=== PATIENT | female | born 1940 | race Caucasian/White ===

== ENCOUNTER → 2016-07-29 | Outpatient (CLI) | payer MEDICARE, MEDICAID ==
[~2016-07-29] MED LIST: ACET-789 PO; ADV1DS; ALBU17AE23 IH; ALPR.25T; ASP81CT PO; ASPI-983 PO; AZIT-21 PO; BUDE6HFA IH; CA C1TAB26 PO; CARV6.25; CARV6.25 PO; CHOL100011 PO; CHOL100055 PO; CIPR-226 PO; CITA20TA4 PO; CLIN150C17 PO; CLIN300C11 PO; CLIN300C3 PO; CLOP75TA PO; CLOP75TA28 PO; CTLP20T PO; DCS100C PO; DOXY100C2 PO; DOXY100C42 PO; DULO30CA; ENAL2.5T PO; ENAL5TAB PO; ENLP2.5T; FENO135C PO; FLC1T; FLT05NA16; FLT05NA16 NSEACH; FLUT16SP22 NSEACH; FOLI0.4T2 PO; FOLI0.8T; FRS325T; FRSM40T; FURO40TA4 PO; GUAI120S36 PO; HYDR-3816 PO; HYDR-700 PO; HYDR1TAB PO; INSA10V SQ; INSASP10V; INSU100C7 SQ; INSU100I14 SQ; INSU100I17 SQ; INSU100I32 SQ; INSU100V6; INSU100V6 SQ; INSU100V8; ISOS30TA3 PO; ISOS30TA7 PO; LACT20SO2 PO; LEVO250T7 PO; LEVO25TA5 PO; LEVO500T69 PO; LEVO500T78 PO; LEVO750T6 PO; LNS30CCR; LOVAZA; MNTL10T PO; MONT10TA24 PO; MTC10T; NIA500ERT PO; NIAC1CAP PO; NITR-65 PO; OFLO10DR24 OT; OFLO5DRO3 EACH EAR; OMEP-10 PO; OMG1KC; OMG1KC PO; ONDA-42 PO; ONDAN4ODT PO; OXYC1TAB87; PRD20T PO; PRM25T; ROSU10TA12 PO; SPRN25T; SSD50T; SULF1TAB38; TIOT18CA IH; TRAM50TA2 PO; WRF2.5T; [UNRECOGNIZED DRUG - CODE] PO
--- OUTSIDE RECORDS SUMMARY | 2016-07-29 09:37 | XMS REPORT | Continuity of Care Document ---
Author Author [facility] Organization [facility] Address Unknown Phone Unavailable Care Team Providers Care Network Specialist Name Role Phone Kirstie Paez PCP [phone] Source Comments Some departments are not documenting in the electronic medical record. If you do not see the information that you expected, contact Release of Information in the Health Information Management department at [phone] for further assistance in locating additional records.[facility] Active Allergies and Adverse Reactions Allergen Noted Date Severity Reactions Comments Bactrim 2012 High HIVES Pcn 2012 HIVES Protamine 2012 UNKNOWN, SEE COMMENTS Was under sedation and had reaction that is unknown and the hospital was [place]. Sulfa (Sulfonamide 2012 HIVES, NAUSEA AND Antibiotics) VOMITING Current Medications Prescription Sig. Disp. Refills Start End Date Status Date Fenofibric Acid Take 135 mg by mouth Active (TRILIPIX) 135 mg CpDR daily. furosemide (LASIX) 40 mg Take 40 mg by mouth Active tablet daily. aspirin EC 81 mg tablet Take 81 mg by mouth at Active bedtime daily. rosuvastatin (CRESTOR) 10 Take 10 mg by mouth every Active mg tablet morning. carvedilol (COREG) 6.25 Take 6.25 mg by mouth Active mg tablet twice daily. isosorbide mononitrate SR Take 30 mg by mouth Active (IMDUR) 30 mg tablet daily. citalopram (CELEXA) 20 mg Take 20 mg by mouth every Active tablet morning. montelukast (SINGULAIR) Take 10 mg by mouth at Active 10 mg tablet bedtime daily. guaiFENesin LA (MUCINEX) Take 1,200 mg by mouth Active 600 mg tablet twice daily. INSULIN Inject 32 Units into Active GLARGINE,HUM.REC.ANLOG area(s) as directed at (LANTUS SC) bedtime daily. cholecalciferol (Vitamin Take 1,000 Units by mouth Active D3) (VITAMIN D-3) 1,000 daily. units tablet INSULIN ASPART (NOVOLOG Inject 7 Units into Active SC) area(s) as directed three times daily before meals. budesonide/formoterol Inhale 2 Puffs by mouth Active (SYMBICORT) 160/4.5 mcg twice daily. HFAA inhalation tiotropium (SPIRIVA) 18 Inhale 18 mcg by mouth Active mcg capsule for inhaler daily. albuterol (VENTOLIN HFA, Inhale 2 Puffs by mouth Active PROAIR HFA) 90 every 4 hours as needed. mcg/actuation inhaler levofloxacin (LEVAQUIN) Take 500 mg by mouth Active 500 mg tablet every 48 hours. Fish Oil-[place]-3 Fatty Take 6 Caps by mouth at Active Acids (FISH OIL) bedtime daily. 360-1,200 mg cap docusate (COLACE) 100 mg Take 400 mg by mouth Active capsule twice daily. enalapril (VASOTEC) 2.5 Take 2.5 mg by mouth Active mg tablet daily. folic acid (FOLVITE) 1 mg Take 5 mg by mouth daily. Active tablet HYDROcodone/acetaminophen Take 1-2 Tabs by mouth 30 Tab 0 01/16/20 Active (NORCO; VICODIN) 5-325 mg every 4 hours as needed 13 tablet for Pain. clopiDOGrel (PLAVIX) 75 Take 1 Tab by mouth every 90 Tab 01/23/20 Active mg tablet morning. RESTART 01/22/13 13 Active Problems Problem Noted Date Systolic CHF, chronic ([facility]) 01/13/2013 Tracheal stenosis 01/12/2013 Ischemic cardiomyopathy 12/24/2012 HLD (hyperlipidemia) 12/24/2012 PVD (peripheral vascular disease) ([facility]) 12/24/2012 History of transient ischemic attack (TIA) 12/24/2012 History of GI bleed 12/24/2012 History of MRSA infection 12/24/2012 Overview: Sternal wound infection post-CABG IDDM (insulin dependent diabetes mellitus) ([facility]) 12/24/2012 Abnormal stress test 12/24/2012 CAD (coronary artery disease) 12/21/2012 Overview: 2010 cardiac stents placed 12/24/12: Cardiac Cath: EF 40%, inferior hypokinesis. Occluded Mid LAD with patent CASTORENA . Occluded SVG to RCA, OM, Diagonal. Collateral filling from left to right. Patent Stent to Lcx, Occluded OM. - Right heart : PA 37/13 mean 22 mmHg. PCW 8, EDP 24. 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 Overview: 2006, complicated by MRSA infection HTN (hypertension) 12/21/2012 On home oxygen therapy 12/21/2012 Overview: 2 L/NC at night Tracheomalacia 12/14/2012 Subglottic stenosis 2012 Laryngopharyngeal reflux 2012 Hyperfunctional dysphonia 2012 Type II diabetes mellitus (HCC) Social History Tobacco Use Types Packs/Day Years Used Date Never Smoker Alcohol Use Drinks/Week oz/Week Comments No Last Filed Vital Signs Vital Sign Reading Time Taken Blood Pressure 143/59 01/15/2013 9:22 AM CDT Pulse 67 01/15/2013 9:22 AM CDT Temperature 36.8 C (98.2 F) 01/15/2013 9:22 AM CDT Respiratory Rate - - Height 1.626 m (5' 4") 01/12/2013 6:18 AM CDT Weight 90.2 kg (198 lb 13.7 oz) 01/15/2013 3:04 AM CDT Body Mass Index 34.12 01/15/2013 3:04 AM CDT Oxygen Saturation 100% 01/15/2013 9:22 AM CDT Plan of Care Health Maintenance Due Date Last Done Comments Physical (Comprehensive) 1949 Exam Pertussis Vaccine 1953 Tetanus Vaccine 1959 Breast Cancer Screening 1982 Colorectal Cancer 1992 Screening Shingles Vaccine 2002 Osteoporosis Screening 2007 Prevnar/Pneumovax (#1) 2007 Influenza Vaccine 03/27/2016 Results from Last 3 Months Not on file
--- NOTE | 2016-07-29 11:22 | Diagnostic Imaging Report ---
EXAMINATION: Multiplanar, multisequence MRI of the thoracic spine performed without intravenous contrast. INDICATION: Neck and back pain. FINDINGS: There is normal alignment of the posterior spinal line. There is an old 50% compression fracture of T12 vertebral body with no significant bone marrow edema seen. There is mild old compression fracture of T10 vertebra as well with 10% vertebral body height loss. Other vertebral bodies are maintained. There is disc desiccation at all levels. No significant disc height loss is seen. There is a hemangioma seen in T3 vertebral body. There is also suggestion of hemangioma within the posterior left side aspect of T12 vertebra with slight extension into the pedicle. No suspicious mass is identified. There is minimal disc herniation at T12/L1 disc without spinal canal stenosis or cord compression. Other levels demonstrate no significant disc herniation. No spinal canal mass. The spinal cord is normal in caliber and contour. The neural foramina appear patent. IMPRESSION: Old compression fractures at T12 and T10 vertebral bodies. No significant disc herniation or spinal canal stenosis at any level. Dictated by: Dictated on workstation # [id number]
--- NOTE | 2016-07-29 11:46 | Diagnostic Imaging Report ---
PROCEDURE: MR imaging cervical spine without contrast. TECHNIQUE: Multiplanar, multisequence MR imaging of the cervical spine was performed without contrast. INDICATION: Neck pain. FINDINGS: The alignment of the posterior spinal line is satisfactory. The vertebral body heights are preserved. There is disc desiccation at all levels and mild disc height loss at C5/6 level. The foramen magnum and upper cervical canal are widely patent. The spinal cord has normal caliber, contour and signal. There is partially visualized suggestion of a meningoencephalocele seen through the occipital region only visualized on the sagittal images and appear similar to CT findings from 06/24/2012 exam with lobulated defects in the occipital aspect of the skull and the inner table. No aggressive feature is seen. No herniation of cerebellar tissue is identified. C2/3: No disc herniation, no spinal canal or foraminal stenosis. C3/4: There is no disc herniation. There is no spinal canal stenosis. There is facet and uncovertebral joint hypertrophy resulting in bilateral moderate foraminal stenosis. C4/5: There is a disc spur complex and posterior ligamentous hypertrophy resulting in moderate spinal canal stenosis reducing the AP dimension of the spinal canal to 7.8 mm. There is no cord compression or cord signal abnormality. The neural foramina demonstrate bilateral stenosis moderate to severe on the right side and moderate on the left side. C5/6: There is spur disc complex and posterior ligamentous hypertrophy. There is moderate to severe spinal canal stenosis reducing the AP dimension of the spinal canal to 6.3 mm with a mild impression/minimal compression along the spinal cord flattened anterior surface. No significant cord signal abnormality is seen. There is bilateral moderate to severe foraminal stenosis from uncovertebral and facet hypertrophy. C6/7: There is no significant disc spur complex. No spinal canal stenosis. There is bilateral mild foraminal stenosis. C7/T1: There is a minimal spur disc complex with no spinal canal stenosis or cord compression. IMPRESSION: There are disc herniations and posterior ligamentous hypertrophy resulting in moderate spinal canal stenosis at C4/5 and C5/6 with a slight impression/flattening along the anterior margin of the spinal cord at C5/6 level. No cord signal abnormality. There is also multilevel neural foramina narrowing. Dictated by: Dictated on workstation # [id number]
== END ==
LOC: RAD 09:33
PROVIDERS: ATTEND Nurse Practitioner Community Health
DX: M54.12 Radiculopathy, cervical region (principal)
CPT/HCPCS: 72141; 72146

== ENCOUNTER 2016-08-18 19:12 | Emergency (ER) | payer MEDICARE, MEDICAID ==
[~2016-08-18] VITALS: Ht 160 cm; Wt 83.5 kg
[~2016-08-18 19:12] MED LIST changes: -ASPI-983 PO; -CLOP75TA28 PO; -OFLO10DR24 OT; -OFLO5DRO3 EACH EAR; -TRAM50TA2 PO
--- OUTSIDE RECORDS SUMMARY | 2016-08-18 19:18 | XMS REPORT | Continuity of Care Document ---
Author Author [facility] Organization [facility] Address Unknown Phone Unavailable Care Team Providers Care Improvement Leader Name Role Phone Kirstie Paez PCP [phone] Source Comments Some departments are not documenting in the electronic medical record. If you do not see the information that you expected, contact Release of Information in the Health Information Management department at [phone] for further assistance in locating additional records.[facility] Active Allergies and Adverse Reactions Allergen Noted Date Severity Reactions Comments Bactrim 2012 High HIVES Pcn 2012 HIVES Protamine 2012 UNKNOWN, SEE COMMENTS Was under sedation and had reaction that is unknown and the hospital was [place]. Sulfa (Sulfonamide 2012 HIVES, NAUSEA AND [...] 500 mg tablet every 48 hours. Fish Oil-[place]-3 Fatty Take 6 Caps by mouth at [...] Problems Problem Noted Date Systolic CHF, chronic ([facility]) 01/13/2013 Tracheal stenosis 01/12/2013 Ischemic cardiomyopathy 12/24/2012 HLD (hyperlipidemia) 12/24/2012 PVD (peripheral vascular disease) ([facility]) 12/24/2012 History of transient ischemic attack (TIA) 12/24/2012 History of GI bleed 12/24/2012 History of MRSA infection 12/24/2012 Overview: Sternal wound infection post-CABG IDDM (insulin dependent diabetes mellitus) ([facility]) 12/24/2012 Abnormal stress test 12/24/2012 CAD (coronary [...]
[2016-08-18] MEDS ORDERED: RX-CIPROFLOXACIN (CILOXAN) 0.3% OP SOLN 2.5 ML ONE (19:51)
[2016-08-18] MEDS ORDERED: CIPROFLOXACIN 0.3% (CILOXAN) 2.5 ML BTL OP SCH (20:00)
[2016-08-18] MEDS ORDERED: OFLO10DR24 OT (20:06)
--- NOTE | 2016-08-18 20:06 | ED EENT ---
History of Present Illness General Chief Complaint: Ear Problems Stated Complaint: BLOOD IN RT EAR Nursing Triage Note: PT STATES SHE WOKE UP WITH BLOOD RUNNING OUT OF HER R EAR. JAN ANY PAIN, STATES SHE HAS A "FULL" FEELING IN HER EAR. [facility] SE[facility] AT [facility] INFANT CHILDCARE PROVIDER. Source: patient Exam Limitations: no limitations History of Present Illness Time seen by provider: 20:01 Initial Comments To ER with c/o right ear bleeding from [facility]. She had pressure in her ear earlier today and so she pinched her nose and blew to try to pop her eardrum. After doing this she then layed down for a nap and upon awakening noticed blood from the right ear. No preceding pain other than this morning. History of T-tubes placed about 5 months ago. Timing/Duration: abrupt Severity: moderate Associated Symptoms: No cough, ear drainageNo facial pain/swelling Allergies and Home Medications Allergies Coded Allergies: sulfamethoxazole (Unverified Allergy, Severe, ANAPHYLAXIS, 07/05/10) pt states severe resp distress after taking bactrim ds trimethoprim (Unverified Allergy, Severe, ANAPHYLAXIS, 07/05/10) pt states severe resp distress after taking bactrim ds Sulfa (Sulfonamide Antibiotics) (Unverified Allergy, Mild, 07/05/10) Penicillins (Verified Allergy, Unknown, 12/14/05) protamine (Verified Allergy, Unknown, 02/07/08) Home Medications Acetaminophen with Codeine 1 Each Tablet 1 TAB PO Q6H PRN PRN PAIN (Reported) Aspirin 81 Mg Tablet 81 MG PO HS (Reported) Carvedilol 6.25 Mg Tablet 3.125 MG PO BID (Reported) TAKES 1/2 (6.25MG) TABLET Citalopram Hydrobromide 20 Mg Tablet 20 MG PO DAILY (Reported) Clindamycin HCl 300 Mg Capsule 10Days 300 MG PO QID (Reported) 10 DAY SUPPLY FILLED 03-07-16 Clopidogrel Bisulfate 75 Mg Tablet 75 MG PO DAILY (Reported) Docusate Sodium 100 Mg Cap 100-600 MG PO DAILY (Reported) TAKES 1-6 (100 MG) CAPSULES Enalapril Maleate 2.5 Mg Tablet 2.5 MG PO BID (Reported) Fenofibric Acid (Choline) 135 Mg Capsule.dr 135 MG PO HS (Reported) Furosemide 40 Mg Tablet 40 MG PO DAILY (Reported) Hydrocodone/Acetaminophen 1 Each Tablet 1-2 TAB PO EVERY 4-6 HOURS PRN PRN PAIN (Reported) Insulin Aspart 300 Units/3 Ml Solution 5 UNITS SQ AC (Reported) Insulin Degludec 100 Unit/1 Ml Insuln.pen 20 UNIT SQ HS (Reported) Levothyroxine Sodium 25 Mcg Tablet 25 MCG PO DAILY (Reported) Montelukast Sodium 10 Mg Tablet 10 MG PO HS (Reported) [place] 3 Polyunsat Fatty Acids 1,000 Mg Cap 6,000 UNIT PO HS (Reported) TAKES 6 (1,000 MG) CAPSULES Rosuvastatin Calcium 10 Mg Tablet 10 MG PO HS (Reported) Vorapaxar Sulfate 2.08 Mg Tablet 2.08 MG PO HS (Reported) Review of Systems Constitutional: see HPI Eyes: No Symptoms Reported Ears: See HPI Pain Bloody Discharge Nose: no symptoms reported Mouth: no symptoms reported Throat: no symptoms reported Respiratory: no symptoms reported Cardiovascular: no symptoms reported Musculoskeletal: no symptoms reported Past Bdyafrf-Ddsdma-Nnprxz Hx Patient Social History Alcohol Use: Denies Use Recreational Drug Use: No Smoking Status: Never a Smoker Recent Foreign Travel: No Contact w/Someone Who Travel: No Recent Infectious Disease Expo: No Recent Hopitalizations: Yes Physical Abuse Screen: No Sexual Abuse: No Immunizations Up To Date Date of Pneumonia Vaccine: Jun 15, 2014 Date of Influenza Vaccine: Apr 26, 2016 Seasonal Allergies Seasonal Allergies: No Surgeries HX Surgeries: Yes Surgeries: CABG, Gallbladder, Hysterectomy Respiratory Hx Respiratory Disorders: No Respiratory Disorders: Pulmonary Embolism Cardiovascular Hx Cardiac Disorders: Yes Cardiac Disorders: Coronary Artery Disease, High Cholesterol, Hypertension Neurological Hx Neurological Disorders: No Reproductive System Hx Reproductive Disorders: No 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 Genitourinary Hx Genitourinary Disorders: No Genitourinary Disorders: Bladder Infection Gastrointestinal Hx Gastrointestinal Disorders: No Gastrointestinal Disorders: Gastroesophageal Reflux, Ulcer Musculoskeletal Hx Musculoskeletal Disorders: Yes Endocrine Hx Endocrine Disorders: Yes Endocrine Disorders: Diabetes, Insulin dep HEENT HX ENT Disorders: No Cancer Hx Cancer: No Psychosocial Hx Psychiatric Problems: No Integumentary HX Skin/Integumentary Disorder: No Blood Transfusions Hx Blood Disorders: No Family Medical History Significant Family History: No Pertinent Family Hx Physical Exam Vital Signs Vital Sign - Last 12Hours 08/18/16 19:32 Temp 97.7 Pulse 77 Resp 18 B/P 147/58 General Appearance: WD/WN no apparent distress Eyes: bilateral eye EOMI, bilateral eye PERRL, bilateral eye normal inspection Ears: right ear other (blood in right ear canal, hole in TM visualized, no purulent material. Minimal active oozing of blood. Ear wick placed and saturated in CIprofloxacin opthalmic drops. ) Neck: non-tender full range of motion Respiratory: no respiratory distress no accessory muscle use Gastrointestinal: non tender soft Neurologic/Psychiatric: alert normal mood/affect oriented x 3 Skin: normal color warm/dry Progress/Results/Core Measures Results/Orders My Orders Orders-ED KENNEDY PUBLISHING DIRECTOR Ciprofloxacin 0.3% Ophth Soln (Ciloxan 0 (08/18/16 20:00) Rx-Ciprofloxacin Ophth Soln (Rx-Ciloxan (08/18/16 19:51) Vital Signs/I&O Vital Sign - Last 12Hours 08/18/16 19:32 Temp 97.7 Pulse 77 Resp 18 B/P 147/58 Blood Pressure Mean: 87 Departure Impression Impression: Primary Impression: Ruptured tympanic membrane Qualified Code: H72.91 - Unspecified perforation of tympanic membrane, right ear Disposition: 01 HOME, SELF-CARE Condition: Stable Departure-Patient Inst. Decision time for Depature: 20:05 Referrals: ALESSANDRA SORENSEN DO (PCP) Primary Care Physician PRABHA HILL (Family) Primary Care Physician JERROD EATON MD Patient Instructions: Ruptured Eardrum (DC) Add. Discharge Instructions: 1. Leave the ear wick in place until tomorrow morning and then remove it. Call Dr Eaton tomorrow for an appointment for follow up 2. Use ear drops as directed All discharge instructions reviewed with patient and/or family. Voiced understanding. Scripts Ofloxacin (Floxin)10 Ml Drops5 Drops OT BID #1 DROPS BID x 7days. Prov:ED KENNEDY APRN 08/18/16 ED KENNEDY APRN Aug 18, 2016 20:06
[2016-08-18 20:20] VITALS: BP 147/58
== END 2016-08-18 20:24 | disposition home or self-care (01) ==
LOC: EDUNIT# 19:12 → ER 19:14
DX: H72.91 Unspecified perforation of tympanic membrane, right ear (principal); I10 Essential (primary) hypertension; E11.9 Type 2 diabetes mellitus without complications; Z79.82 Long term (current) use of aspirin; Z79.84 Long term (current) use of oral hypoglycemic drugs; Z79.4 Long term (current) use of insulin; Z79.899 Other long term (current) drug therapy; Z79.02 Long term (current) use of antithrombotics/antiplatelets; Z96.22 Myringotomy tube(s) status
CPT/HCPCS: 99283

== ENCOUNTER 2016-08-27 09:48 | Day surgery (SDC) | payer MEDICARE, MEDICAID ==
[2016-08-27] VITALS (7 sets, daily range): BP systolic 114–161; BP diastolic 48–75
[~2016-08-27] VITALS: Ht 160 cm; Wt 83.5 kg
[~2016-08-27 09:48] MED LIST changes: +OFLO10DR24 OT
--- OUTSIDE RECORDS SUMMARY | 2016-08-27 09:52 | XMS REPORT | Continuity of Care Document ---
Author Author [facility] Organization [facility] Address Unknown Phone Unavailable Care Team Providers Care Standpipe Tender Name Role Phone Kirstie Paez PCP [phone] Source Comments Some departments are not documenting in the electronic medical record. If you do not see the information that you expected, contact Release of Information in the Health Information Management department at [phone] for further assistance in locating additional records.[facility] Active Allergies and Adverse Reactions Allergen Noted Date Severity Reactions Comments Bactrim 2012 High HIVES Pcn 2012 HIVES Protamine 2012 UNKNOWN, SEE COMMENTS Was under sedation and had reaction that is unknown and the hospital was [place] Sulfa (Sulfonamide 2012 HIVES, NAUSEA AND [...] 500 mg tablet every 48 hours. Fish Oil-[place]-3 Fatty Take 6 Caps by mouth at [...] Problems Problem Noted Date Systolic CHF, chronic ([facility]) 01/13/2013 Tracheal stenosis 01/12/2013 Ischemic cardiomyopathy 12/24/2012 HLD (hyperlipidemia) 12/24/2012 PVD (peripheral vascular disease) ([facility]) 12/24/2012 History of transient ischemic attack (TIA) 12/24/2012 History of GI bleed 12/24/2012 History of MRSA infection 12/24/2012 Overview: Sternal wound infection post-CABG IDDM (insulin dependent diabetes mellitus) ([facility]) 12/24/2012 Abnormal stress test 12/24/2012 CAD (coronary [...]
--- OUTSIDE RECORDS SUMMARY | 2016-08-27 09:53 | XMS REPORT | Continuity of Care Document ---
Author Author [facility] Organization [facility] Address Unknown Phone Unavailable Care Team Providers Care Behavioral Services Tech Name Role Phone Kirstie Paez PCP [phone] Source Comments Some departments are not documenting in the electronic medical record. If you do not see the information that you expected, contact Release of Information in the Health Information Management department at [phone] for further assistance in locating additional records.[facility] Active Allergies and Adverse Reactions Allergen Noted Date Severity Reactions Comments Bactrim 2012 High HIVES Pcn 2012 HIVES Protamine 2012 UNKNOWN, SEE COMMENTS Was under sedation and had reaction that is unknown and the hospital was [place]. Sulfa (Sulfonamide 2012 HIVES, NAUSEA AND [...] 500 mg tablet every 48 hours. Fish Oil-[place]-3 Fatty Take 6 Caps by mouth at [...] Problems Problem Noted Date Systolic CHF, chronic ([facility]) 01/13/2013 Tracheal stenosis 01/12/2013 Ischemic cardiomyopathy 12/24/2012 HLD (hyperlipidemia) 12/24/2012 PVD (peripheral vascular disease) ([facility]) 12/24/2012 History of transient ischemic attack (TIA) 12/24/2012 History of GI bleed 12/24/2012 History of MRSA infection 12/24/2012 Overview: Sternal wound infection post-CABG IDDM (insulin dependent diabetes mellitus) ([facility]) 12/24/2012 Abnormal stress test 12/24/2012 CAD (coronary [...]
[2016-08-27] MEDS ORDERED: HEParin (CATH LAB) 2,000 ML IV ONE (10:18)
[2016-08-27] MEDS ORDERED: LIDOCAINE 1% INJ 20 ML (XYLOCAINE) VIAL ONE (10:18)
[2016-08-27] MEDS ORDERED: NS IV 1000 ML 1,000 ML ONE ×2 (10:18→13:15)
[2016-08-27 10:51] LABS: MEAN PLATELET VOLUME 11.3 FL (7.4-10.4); RED BLOOD COUNT 4.99 10^6/uL (4.35-5.85); RED CELL DISTRIBUTION WIDTH 14.2 % (10.0-14.5); WHITE BLOOD COUNT 5.7 10^3/uL (4.3-11.0)
[2016-08-27 10:54] LABS: BILIRUBIN,URINE NEGATIVE (NEGATIVE); KETONES,URINE NEGATIVE (NEGATIVE); LEUKOCYTE ESTERASE ,URINE 1+ (NEGATIVE); NITRITE,URINE NEGATIVE (NEGATIVE); PH,URINE 5 (5-9); PROTEIN,URINE NEGATIVE (NEGATIVE); UROBILINOGEN,URINE NORMAL (NORMAL)
[2016-08-27] MEDS ORDERED: NS IV 1000 ML 1,000 ML IV SCH (11:00)
[2016-08-27 11:03] LABS: PROTHROMBIN TIME PATIENT 13.1 SEC (12.2-14.7)
[2016-08-27] MEDS ORDERED: ASPI-983 PO (11:07)
[2016-08-27] MEDS ORDERED: TRAM50TA2 PO (11:07)
[2016-08-27] MEDS ORDERED: CLOP75TA28 PO (11:07)
[2016-08-27] MEDS ORDERED: FURO40TA4 PO (11:07)
[2016-08-27] MEDS ORDERED: ENAL2.5T PO (11:07)
[2016-08-27 11:10] LABS: ALBUMIN 4.2 G/DL (3.2-4.5); BILIRUBIN,TOTAL 0.4 MG/DL (0.1-1.0); CALCIUM 9.3 MG/DL (8.5-10.1); CREATININE SERUM 0.99 MG/DL (0.60-1.30); TOTAL PROTEIN 7.1 G/DL (6.4-8.2)
[2016-08-27 11:12] LABS: POTASSIUM 5.1 MMOL/L (3.6-5.0)
--- NOTE | 2016-08-27 11:12 | Diagnostic Imaging Report ---
INDICATION: Peripheral vascular disease. EXAMINATION: Portable chest at 10:47 AM. FINDINGS: There are postop changes from CABG surgery. There is chronic elevation of the right hemidiaphragm. There are surgical sruthi in the left hilum. The lungs are clear. There are no effusions or pneumothoraces. The heart size and pulmonary vascularity are normal. IMPRESSION: Post surgical changes in the chest. No acute abnormalities or interval change since the exam dated 03/19/2016. Dictated by: Dictated on workstation # [id number]
[2016-08-27] MEDS ORDERED: OFLO5DRO3 EACH EAR (11:14)
[2016-08-27] MEDS ORDERED: MIDAZOLAM 5 MG/5 ML (VERSED) VIAL ONE (11:50)
[2016-08-27] MEDS ORDERED: fentaNYL INJECTION 100 MCG/2 ML AMP ONE (11:50)
[2016-08-27] MEDS ORDERED: HEParin 1000 UNIT/ML (10ML VIAL) FOR BOLUS ONE (13:20)
[2016-08-27] MEDS ORDERED: NITROGLYCERIN DRIP 25 MG/D5W 250 ML IV ONE (13:59)
[2016-08-27] MEDS: NS IV 1000 ML 1,000 ML IV SCH ×2 (14:30→23:14)
[2016-08-27] MEDS ORDERED: FUROSEMIDE 40 MG (LASIX) TAB PO PRN (14:30)
[2016-08-27] MEDS ORDERED: PATIENT MAY USE OWN MEDS, ALL PO SCH (14:30)
[2016-08-27] MEDS ORDERED: ASPIRIN 81 MG CHEW (CHILDREN'S ASA) ONE (14:32)
[2016-08-27] MEDS ORDERED: CLOPIDOGREL 300 MG (PLAVIX) TABLET PO ONE (14:32)
[2016-08-27] MEDS: NOVOLOG SQ SCH (17:00)
[2016-08-27] MEDS: ENALAPRIL 2.5 MG (VASOTEC) TAB PO SCH (20:45)
[2016-08-27] MEDS: OMEGA 3 (FISH OIL) 1000 MG CAP PO SCH ×2 (20:45→22:57)
[2016-08-27] MEDS: DOCUSATE SODIUM 100 MG (COLACE) CAP PO SCH (20:45)
[2016-08-27] MEDS ORDERED: CRESTOR 10 MG TAB PO SCH (21:00)
[2016-08-27] MEDS ORDERED: ZONTIVITY 2.08 MG PO SCH (21:00)
[2016-08-27] MEDS ORDERED: FENOFIBRIC 135 MG PO SCH (21:00)
[2016-08-27] MEDS ORDERED: ASPIRIN E.C. 81 MG (ECOTRIN) TAB PO SCH (21:00)
[2016-08-27] MEDS ORDERED: TRESIBA FLEXTOUCH 200 UNITS/ML SQ SCH (21:00)
[2016-08-27] MEDS ORDERED: [UNRECOGNIZED DRUG - REMARK] OP SCH (21:00)
[2016-08-28 04:00] VITALS: BP 144/80
[2016-08-28 04:24] LABS: MEAN PLATELET VOLUME 11.4 FL (7.4-10.4); RED BLOOD COUNT 4.3 10^6/uL (4.35-5.85); RED CELL DISTRIBUTION WIDTH 14.2 % (10.0-14.5); WHITE BLOOD COUNT 5.1 10^3/uL (4.3-11.0)
[2016-08-28 04:44] LABS: ANION GAP 10 MMOL/L (5-14); BLOOD UREA NITROGEN 18 MG/DL (7-18); BUN/CREATININE RATIO 20; CALCIUM 8.4 MG/DL (8.5-10.1); CARBON DIOXIDE 20 MMOL/L (21-32); CHLORIDE 107 MMOL/L (98-107); CREATININE SERUM 0.88 MG/DL (0.60-1.30); GFR ESTIMATED > 60; GLUCOSE 113 MG/DL (70-105); POTASSIUM 4.5 MMOL/L (3.6-5.0); SODIUM 137 MMOL/L (135-145)
[2016-08-28] MEDS: NOVOLOG SQ SCH (05:36)
[2016-08-28] MEDS ORDERED: LEVOTHYROXINE 25 MCG (LEVOTHROID) TAB PO SCH (06:30)
--- NOTE | 2016-08-28 07:30 | Cardiac Procedure Note-CS/ASA ---
Pre-Procedure Note Pre-Op Procedure Note H&P Reviewed The H&P was reviewed, patient examined and no changes noted. Date H&P Reviewed: Aug 27, 2016 Time H&P Reviewed: 11:30 Conscious Sedation Pre-Proced Time Reviewed: 11:30 ASA Class: 3 Airway Mallampati Classification: (bad river band appropriate class) I. II. III, IV Lungs Heart ASA score ASA 1: a normal healthy patient ASA 2: a patient with a mild systemic disease (mid diabetes, controlled hypertension, obesity x ASA 3: a patient with a severe systemic disease that limits activity (angina , COPD, prior Myocardial infarction) ASA 4: a patient with an incapacitating disease that is a constant threat to life (CHF, renal failure) ASA 5: a moribund patient not expected to survive 24 hrs. (ruptured aneurysm) ASA 6: a declared brain patient whose organs are being harvested. For emergent operations, add the letter E after the classification Grade 3 Sedation Plan: Analgesia, Amnesia, Plan communicated to team members, Discussed options with patient/fam, Discussed risks with patient/fam Note The patient is an appropriate candidate to undergo the planned procedure, sedation, and anesthesia. The patient immediately re-assessed prior to indication. LUIS CARLOS RODRIGUEZ MD Aug 28, 2016 07:30
--- NOTE | 2016-08-28 07:35 | Cardiology Progress Note ---
Subjective Subjective/Events-last exam patient is feeling better, denied any chest pain or shortness of breath Review of Systems General: No Chills, No Night Sweats, No Fatigue, No Malaise, No Appetite, No Other HEENT: No Head Aches, No Visual Changes, No Eye Pain, No Ear Pain, No Dysphasia , No Sinus Congestion, No Post Nasal Drip, No Sore Throat, No Other Pulmonary: No Dyspnea, No Cough, No Pleuritic Chest Pain, No Other Cardiovascular: No: Chest Pain, Edema, Lt Headedness, Orthopnea, Other, Palpitations, Paroxysmal Noc. Dyspnea Objective-Cardiology Exam Last Set of Vital Signs Vital Signs 08/28/16 04:00 Temp 97.8 Pulse 58 Resp 18 B/P 144/80 Pulse Ox 96 O2 Delivery Room Air Capillary Refill : Less Than 3 Seconds I&O Intake and Output 08/28/16 00:00 Intake Total 0 ml Output Total 0 ml Balance 0 ml Intake Oral 0 ml Output Urine Total 0 ml General: Alert, Oriented X3, Cooperative HEENT: Atraumatic, PERRLA Neck: Supple, No JVD, No Thyromegaly Lungs: Clear to Auscultation, Normal Air Movement Heart: Regular Rate, Normal S1, Normal S2, No Murmurs Abdomen: Normal Bowel Sounds, Soft, No Tenderness, No Hepatosplenomegaly, No Masses Extremities: No Clubbing, No Cyanosis, No Edema, No Tenderness/Swelling, Other (difficult to palpate pulse) Skin: No Rashes, No Breakdown, No Significant Lesion Neuro: Normal Gait, Normal Speech, Strength at 5/5 X4 Ext, Normal Tone, Sensation Intact Psych/Mental Status: Mental Status NL, Mood NL Results Lab Laboratory Tests 08/27/16 10:36 08/28/16 03:37 A/P-Cardiology Admission Diagnosis peripheral arterial disease Coronary artery disease Hypertension Hyperlipidemia Assessment/Plan peripheral arterial disease status post balloon antiplastic using drug-coated balloon to the right SFA Coronary artery disease Hypertension Hyperlipidemia LUIS CARLOS RODRIGUEZ MD Aug 28, 2016 07:35
--- NOTE | 2016-08-28 07:37 | Discharge Inst-Post CATH ---
Discharge Inst-CATH Post Cardiac Cath D/C Inst Follow Up/Plan Appointment with Dr. Adkins's office next week CARDIAC CATH DISCHARGE INSTRUCTIONS *Hold Metformin for 48 hours post heart cath. ACTIVITY * Go Home directly and rest. * Limit activity of the leg (or wrist if it was used) for 7 days including aerobics, swimming, jogging, bicycling, etc. * Restrict stair-climbing for 7 days if possible, if not, climb up with your non -cath leg, then bring together on the same step. * Avoid lifting, pushing, pulling or excessive movement of the affected extremity for 7 days. * Customary sexual activity may be resumed after 2 days-use caution not to use a position that strains or causes pain to the affected extremity. * No driving for 24 hours. * NO SMOKING. * Avoid straining for bowel movements for 7 days. * Gentle walking on level ground is allowed. * Returning to work will depend on the type of procedure and the results. Your doctor will discuss this with you. CALL YOUR DOCTOR FOR ANY OF THE FOLLOWING: *If bleeding from the puncture site occurs- Apply gentle pressure to site with clean cloth and call your doctor or EMS. * If a knot or lump forms under the skin, increases in size, or causes pain. * If bruising appears to be worsening or moving further down your leg instead of disappearing. * Temperature above 101 F. CARE OF YOUR GROIN INCISION; * Bruising or purple discoloration of the skin near the puncture site is common. * You may shower only, no bathtub bathing for 5 days. Be careful to avoid slipping as your leg may feel stiff. * If a closure device was used on your femoral artery, please see the attached guide regarding care of the device and your leg. * REMOVE the dressing from your groin the next day after your procedure in the shower. CARE OF YOUR WRIST INCISION; * Bruising or purple discoloration of the skin near the puncture site is common. * You may shower. * DO NOT submerge wrist. * Remove dressing in 24 hours. LUIS CARLOS ADKINS MD Aug 28, 2016 07:36
[2016-08-28 07:46] VITALS: BP 135/66
[2016-08-28] MEDS: ENALAPRIL 2.5 MG (VASOTEC) TAB PO SCH (07:48)
[2016-08-28] MEDS: DOCUSATE SODIUM 100 MG (COLACE) CAP PO SCH (07:50)
[2016-08-28] MEDS ORDERED: CARVEDILOL 6.25 MG (COREG) TAB PO SCH (09:00)
[2016-08-28] MEDS ORDERED: CLOPIDOGREL 75 MG (PLAVIX) TABLET PO SCH (09:00)
[2016-08-28 09:15] VITALS: BP 135/66
--- NOTE | 2016-08-28 13:03 | PROCEDURE REPORT ---
PROCEDURE PHYSICIAN: LUIS CARLOS RODRIGUEZ PERIPHERAL ANGIOGRAM WITH ANGIOPLASTY REPORT DATE OF PROCEDURE: 08/27/2016 BRIEF HISTORY: Mrs. Lima is a 75-year-old lady with extensive peripheral arterial disease multiple intervention on the left lower extremity. She came to the office with increasing pain in her right lower extremity. She was noted to have abnormal LILO and scheduled for peripheral angiogram. PROCEDURE NOTE: After explaining the procedure to the patient, all pros and cons were explained. All questions were answered. The patient signed a consent, then she was placed on the cardiac catheterization laboratory. The left groin was prepped in a sterile fashion. 6-Wallisian sheath was placed in the left femoral artery. A pigtail catheter advanced to the l abdominal aorta. Abdominal aortogram was done. Runoff of the left lower extremity was done through the sheath. Then I used a pigtail catheter to cross over to the right side. Straight wire was advanced and pigtail catheter advanced to the common femoral artery and runoff of the right lower extremity was done. Then, I exchange the pigtail catheter into a straight catheter, advanced down to the knee level. Angiogram with selective angiogram was done. At that time I attempted to do percutaneous intervention to the totally occluded posterior tibial and peroneal arteries. The patient was given 5000 units of heparin. I advanced multiple wires without success. There was a small perforation noted at the anterior tibial artery. I removed the catheter, left the sheath in place and left the wire, then I proceeded with balloon angioplasty to the SFA, that has multiple significant lesions. I used Lutonix drug coated balloon 5 x 150 and 5 x 40 to he SFA and popliteal artery angiogram. Post intervention showed excellent results. With improvement of flow velocity down to the ankle. There is single-vessel reconstructed at the ankle level, it is the posterior tibial artery. At the end of the procedure, the sheath was exchanged into a short 6-Wallisian sheath and then sheath was removed and Mynx device deployed. No complication noted. FINDINGS: 1. Abdominal aortogram showed atherosclerotic disease in the abdominal aorta. No dissection or aneurysm. 2. Left lower extremity runoff down through the sheath showed mild disease in the SFA and popliteal artery. There is occlusion of the anterior tibial artery, subtotal occlusion of the posterior tibial artery and peroneal artery with slow flow distally. 3. Angiogram of the right lower extremity showed multiple segments of severe stenosis at the distal superficial femoral artery and popliteal artery; total occlusion below the knee. Unsuccessful attempt to intervene on the posterior tibial and peroneal artery. Successful balloon angioplasty to the SFA and popliteal artery with drug coated balloon using Lutonix 5 x 150 and 5 x 40 with excellent results. 4. Single-vessel reconstruction of the posterior tibial artery in the right leg. DISCUSSION AND RECOMMENDATION: I will continue maximizing medical therapy. Consideration for pedal access through the posterior tibial artery and intervention on the right lower extremity is needed. Meanwhile, I will continue medical therapy. Job ID: [id number] Dictated Date: 08/27/2016 14:38:40 Medical Billing And Coding Specialist Date: 08/28/2016 12:50:22 / diana LOPEZ
--- NOTE | 2016-08-28 13:07 | DISCHARGE SUMMARY ---
PROCEDURE PHYSICIAN: LUIS CARLOS RODRIGUEZ PERIPHERAL ANGIOGRAM WITH ANGIOPLASTY REPORT DATE OF PROCEDURE: 08/27/2016 BRIEF HISTORY: Mrs. Lima is a 75-year-old lady with extensive peripheral arterial disease multiple intervention on the left lower extremity. She came to the office with increasing pain in her right lower extremity. She was noted to have abnormal LILO and scheduled for peripheral angiogram. PROCEDURE NOTE: After explaining the procedure to the patient, all pros and cons were explained. All questions were answered. The patient signed a consent, then she was placed on the cardiac catheterization laboratory. The left groin was prepped in a sterile fashion. 6-Emirati sheath was placed in the left femoral artery. A pigtail catheter advanced to the l abdominal aorta. Abdominal aortogram was done. Runoff of the left lower extremity was done through the sheath. Then I used a pigtail catheter to cross over to the right side. Straight wire was advanced and pigtail catheter advanced to the common femoral artery and runoff of the right lower extremity was done. Then, I exchange the pigtail catheter into a straight catheter, advanced down to the knee level. Angiogram with selective angiogram was done. At that time I attempted to do percutaneous intervention to the totally occluded posterior tibial and peroneal arteries. The patient was given 5000 units of heparin. I advanced multiple wires without success. There was a small perforation noted at the anterior tibial artery. I removed the catheter, left the sheath in place and left the wire, then I proceeded with balloon angioplasty to the SFA, that has multiple significant lesions. I used Lutonix drug coated balloon 5 x 150 and 5 x 40 to he SFA and popliteal artery angiogram. Post intervention showed excellent results. With improvement of flow velocity down to the ankle. There is single-vessel reconstructed at the ankle level, it is the posterior tibial artery. At the end of the procedure, the sheath was exchanged into a short 6-Emirati sheath and then sheath was removed and Mynx device deployed. No complication noted. FINDINGS: 1. Abdominal aortogram showed atherosclerotic disease in the abdominal aorta. No dissection or aneurysm. 2. Left lower extremity runoff down through the sheath showed mild disease in the SFA and popliteal artery. There is occlusion of the anterior tibial artery, subtotal occlusion of the posterior tibial artery and peroneal artery with slow flow distally. 3. Angiogram of the right lower extremity showed multiple segments of severe stenosis at the distal superficial femoral artery and popliteal artery; total occlusion below the knee. Unsuccessful attempt to intervene on the posterior tibial and peroneal artery. Successful balloon angioplasty to the SFA and popliteal artery with drug coated balloon using Lutonix 5 x 150 and 5 x 40 with excellent results. 4. Single-vessel reconstruction of the posterior tibial artery in the right leg. DISCUSSION AND RECOMMENDATION: I will continue maximizing medical therapy. Consideration for pedal access through the posterior tibial artery and intervention on the right lower extremity is needed. Meanwhile, I will continue medical therapy. FINAL DIAGNOSES: 1. Claudication. 2. Peripheral arterial disease. 3. Hypertension. 4. Hyperlipidemia. 5. Diabetes mellitus Job ID: [id number] Dictated Date: 08/27/2016 14:38:40 Refrigeration Engineer Date: 08/28/2016 13:03:06/diana
== END 2016-08-28 09:15 | disposition home or self-care (01) ==
LOC: CATH 09:48 → ICU 15:07 → CATH 08-28 09:15
PROVIDERS: ATTEND Internal Medicine Cardiovascular Disease
DX: I70.213 Atherosclerosis of native arteries of extremities with intermittent claudication, bilateral legs (principal); I70.92 Chronic total occlusion of artery of the extremities; I70.0 Atherosclerosis of aorta; I10 Essential (primary) hypertension; E78.5 Hyperlipidemia, unspecified; E11.9 Type 2 diabetes mellitus without complications; I50.22 Chronic systolic (congestive) heart failure; Z79.899 Other long term (current) drug therapy; Z79.4 Long term (current) use of insulin; Z95.1 Presence of aortocoronary bypass graft; Z95.5 Presence of coronary angioplasty implant and graft; Z86.711 Personal history of pulmonary embolism
CPT/HCPCS: 36247; 36415; 37224; 71010; 75625; 75716; 75774; 80048; 80053; 80061; 81000; 85027; 85610; 85730; 87081; 93005

== ENCOUNTER 2017-01-31 18:52 | Emergency (ER) | payer MEDICARE, MEDICAID ==
[~2017-01-31] VITALS: Ht 160 cm; Wt 81.6 kg
[~2017-01-31 18:52] MED LIST changes: +ASPI-983 PO; +CLOP75TA28 PO; +OFLO5DRO3 EACH EAR; +TRAM50TA2 PO; +VORA2.082 PO; -[UNRECOGNIZED DRUG - CODE] PO
--- NOTE | 2017-01-31 19:27 | ED Integumentary General ---
General Chief Complaint: Upper Extremity Stated Complaint: SPOT ON ARM, POSSIBLE BLOOD CLOT Nursing Triage Note: BRUISE TO RIGHT INNER ARM, NO KNOWN INJURY Source: patient, family, RN notes reviewed Exam Limitations: no limitations History of Present Illness Time seen by provider: 19:20 Initial Comments Patient presents c/ a bruise to her right forearm that she first noted yesterday and it has gotten bigger today. Doesn't recall any injury to the area , although she is taking care of her daughter's dog and he may have pawed her. She is on Plavix. Denies any pain @ the site. Has no other concerns. Patient states her kind of freaked out when he saw the bruise this PM and brought her straight to the ED. Just wants to make sure everything is O.K. Patient reports several other bruising episodes in her past. Timing/Duration: yesterday Severity: mild Location: extremities (right anterior forearm) Possible Cause: no cause identified Modifying Factors: improves with other (none) Associated Symptoms: other (bruising) Allergies and Home Medications Allergies Coded Allergies: sulfamethoxazole (Unverified Allergy, Severe, ANAPHYLAXIS, 07/05/10) pt states severe resp distress after taking bactrim ds trimethoprim (Unverified Allergy, Severe, ANAPHYLAXIS, 07/05/10) pt states severe resp distress after taking bactrim ds Sulfa (Sulfonamide Antibiotics) (Unverified Allergy, Mild, 07/05/10) Penicillins (Verified Allergy, Unknown, 12/14/05) protamine (Verified Allergy, Unknown, 02/07/08) Home Medications Aspirin 81 Mg Tablet.dr, 81 MG PO HS, (Reported) Carvedilol 6.25 Mg Tablet, 3.125 MG PO DAILY, (Reported) TAKES 1/2 (6.25MG) TABLET Citalopram Hydrobromide 20 Mg Tablet, 20 MG PO DAILY, (Reported) Clopidogrel Bisulfate 75 Mg Tablet, 75 MG PO DAILY, (Reported) Docusate Sodium 100 Mg Cap, 300 MG PO BID, (Reported) TAKES 3 (100 MG) CAPSULES Enalapril Maleate 2.5 Mg Tablet, 2.5 MG PO BID, #60 (Reported) Fenofibric Acid (Choline) 135 Mg Capsule.dr, 135 MG PO HS, (Reported) Furosemide 40 Mg Tablet, 40 MG PO DAILY PRN for SWELLING, (Reported) Insulin Aspart 300 Units/3 Ml Solution, 5 UNITS SQ BID WITH MEALS, (Reported) Insulin Degludec 100 Unit/1 Ml Insuln.pen, 20 UNIT SQ HS, (Reported) Levothyroxine Sodium 25 Mcg Tablet, 25 MCG PO DAILY, (Reported) Ofloxacin 5 Ml Drops, 5 DROPS EACH EAR BID for 7 Days, (Reported) 7 DAY THERAPY FILLED 08-19-16 0.3 [place] 3 Polyunsat Fatty Acids 1,000 Mg Cap, 3,000 MG PO BID, (Reported) TAKES 3 (1,000 MG) CAPSULES Rosuvastatin Calcium 10 Mg Tablet, 10 MG PO HS, (Reported) Tramadol HCl 50 Mg Tablet, 50 MG PO BID, (Reported) Vorapaxar Sulfate 2.08 Mg Tablet, 2.08 MG PO HS, (Reported) Constitutional: see HPI Skin: see HPI, other (bruising right forearm) All Other Systems Reviewed Negative Unless Noted: Yes (Negative excepted noted.) Past Dbwdhze-Cxmmif-Utreml Hx Patient Social History Alcohol Use: Denies Use Recreational Drug Use: No Smoking Status: Never a Smoker Recent Foreign Travel: No Contact w/Someone Who Travel: No Recent Infectious Disease Expo: No Recent Hopitalizations: No Immunizations Up To Date Tetanus Booster (TDap): Unknown Date of Pneumonia Vaccine: Jun 15, 2014 Date of Influenza Vaccine: Apr 26, 2016 Seasonal Allergies Seasonal Allergies: No Surgeries HX Surgeries: Yes Surgeries: CABG, Gallbladder, Hysterectomy Respiratory Hx Respiratory Disorders: No Respiratory Disorders: Pulmonary Embolism Cardiovascular Hx Cardiac Disorders: Yes Cardiac Disorders: Coronary Artery Disease, High Cholesterol, Hypertension, Peripheral Vascular Neurological Hx Neurological Disorders: No Reproductive System : No Hx Reproductive Disorders: No CHANGE ADVISOR History: Menopausal Genitourinary Hx Genitourinary Disorders: No Genitourinary Disorders: Bladder Infection Gastrointestinal Hx Gastrointestinal Disorders: No Gastrointestinal Disorders: Gastroesophageal Reflux, Ulcer Musculoskeletal Hx Musculoskeletal Disorders: Yes Musculoskeletal Disorders: Arthritis Endocrine Hx Endocrine Disorders: Yes Endocrine Disorders: Diabetes, Insulin dep HEENT HX ENT Disorders: No Cancer Hx Cancer: No Psychosocial Hx Psychiatric Problems: No Integumentary HX Skin/Integumentary Disorder: No Blood Transfusions Hx Blood Disorders: No Family Medical History Significant Family History: No Pertinent Family Hx Physical Exam Vital Signs Vital Sign - Last 12Hours 01/31/17 19:11 Temp 97.7 Pulse 70 Resp 16 B/P (MAP) 124/62 Pulse Ox 94 O2 Delivery Room Air Capillary Refill : Less Than 3 Seconds General Appearance: WD/WN, no apparent distress, obese Cardiovascular: regular rate, rhythm Respiratory: no respiratory distress Extremities: other (bruising/ecchymosis of patient's right volar forearm) Neurologic/Psychiatric: no motor/sensory deficits, alert, normal mood/affect, oriented x 3 Skin: warm/dry, ecchymosis Skin Problem Location: upper extremities (right anterior forearm) Skin Problem Character: other (bruising) Progress/Results/Core Measures Results/Orders Vital Signs/I&O Vital Sign - Last 12Hours 01/31/17 19:11 Temp 97.7 Pulse 70 Resp 16 B/P (MAP) 124/62 Pulse Ox 94 O2 Delivery Room Air Blood Pressure Mean: 82 Progress Note : Progress Note Offered to check some labs on patient, but she declined. Recommended applying some ice to the area for the next 24 hours. Offered araceli wrap for some compression and patient declined that as well. She's just glad we made her feel better about her bruise. Departure Impression Impression: Primary Impression: Traumatic ecchymosis of right forearm Disposition: HOME, SELF-CARE Condition: Stable Departure-Patient Inst. Decision time for Depature: 19:26 Referrals: PRABHA HILL (PCP/Family) Primary Care Physician Patient Instructions: Taking Care of Bruises MORAIMA COLLINS DO Jan 31, 2017 19:27
[2017-01-31 19:32] VITALS: BP 124/62
--- OUTSIDE RECORDS SUMMARY | 2017-02-03 10:03 | XMS REPORT ---
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 Active Problem Hypothyroidism (acquired) E03.9 Active Problem Type 2 diabetes mellitus with diabetic neuropathy, unspecified E11.40 Active Problem Type 2 diabetes mellitus with unspecified complications E11.8 Active Problem Essential hypertension I10 Active Problem PVD (peripheral vascular disease) I73.9 Active Problem Other and unspecified hyperlipidemia 272.4 Active Problem Diabetes with other specified manifestations, type II or unspecified type, not stated as uncontrolled 250.80 Active Problem Other dyspnea and respiratory abnormalities 786.09 Active Problem 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.19 Active Problem Essential hypertension, benign 401.1 Active Problem CHF (congestive heart failure) 428.0 Active Medications Medication Code System Code Instructions Start Date End Date Status Dosage Trutest Blood Glucose Test Strip NDC 0 N/A subcutaneously 6 times a day. E11.40 January 16, 2016 test blood sugar Results No Known Results Summary Purpose [employer] Submission
--- OUTSIDE RECORDS SUMMARY | 2017-02-03 10:03 | XMS REPORT | Continuity of Care Document ---
Author Author [facility] Organization [facility] Address Unknown Phone Unavailable Care Team Providers Care Beekeeper Farmer Name Role Phone Kirstie Paez PCP [phone] Source Comments Some departments are not documenting in the electronic medical record. If you do not see the information that you expected, contact Release of Information in the Health Information Management department at [phone] for further assistance in locating additional records.[facility] Active Allergies and Adverse Reactions Allergen Noted Date Severity Reactions Comments Bactrim 2012 High HIVES Pcn 2012 HIVES Protamine 2012 UNKNOWN, SEE COMMENTS Was under sedation and had reaction that is unknown and the [place]. Sulfa (Sulfonamide 2012 HIVES, NAUSEA AND [...] 500 mg tablet every 48 hours. 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
--- OUTSIDE RECORDS SUMMARY | 2017-02-03 10:03 | XMS REPORT ---
Author Author PRABHA HILL Organization [employer] Address Unknown Phone Unavailable Care Team Providers Care Lead Sales Consultant Name Role Phone PRABHA HILL CP Unavailable Allergies No Known Allergies Problems Problem Type Condition Code Onset Dates Condition Status Problem Other dyspnea and respiratory abnormalities 786.09 Active Problem CAD (coronary artery disease) 414.00 Active Problem CHF (congestive heart failure) 428.0 Active Problem Diabetes 250.00 Active Problem Other and unspecified hyperlipidemia 272.4 Active Problem Essential hypertension, benign 401.1 Active Problem 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.19 Active Problem Diabetes with other specified manifestations, type II or unspecified type, not stated as uncontrolled 250.80 Active Medications No Known Medications Results No Known Results Summary Purpose [employer] Submission
--- OUTSIDE RECORDS SUMMARY | 2017-02-03 10:03 | XMS REPORT ---
Author Author PRABHA HILL [facility] [employer] Address Unknown Phone Unavailable Care Team Providers Care Pipe Crew Foreman Name Role Phone PRABHA HILL CP Unavailable [...] CHF (congestive heart failure) 428.0 Active Medications No Known Medications Results No Known Results Summary Purpose [employer] Submission
--- OUTSIDE RECORDS SUMMARY | 2017-02-03 10:04 | XMS REPORT ---
Author Author PRABHA HILL Organization [employer] Address Unknown Phone Unavailable Care Team Providers Care Hull Molder Name Role Phone PRABHA HILL CP Unavailable Allergies No Known Allergies Problems Problem Type Condition Code Onset Dates Condition Status Problem Essential hypertension, benign 401.1 Active Problem Other dyspnea and respiratory abnormalities 786.09 Active Problem Diabetes 250.00 Active Problem CAD (coronary artery disease) 414.00 Active Problem Dysuria R30.0 Active Problem Diabetes with other specified manifestations, type II or unspecified type, not stated as uncontrolled 250.80 Active Problem Other and unspecified hyperlipidemia 272.4 Active Problem CHF (congestive heart failure) 428.0 Active Problem 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.19 Active Medications Medication Code System Code Instructions Start Date End Date Status Dosage Furosemide [facility] [address]-33 40 MG TAKE 1 TABLET BY MOUTH ONCE A DAY Citalopram Hydrobromide [facility] [address]-37 20 MG TAKE 1 TABLET BY MOUTH ONCE A DAY NovoLog Flexpen [facility] [address]-27 100 UNIT/ML INJECT 7 UNITS SUBCUTANEOUSLY THREE TIMES DAILY WITH MEALS Clopidogrel Bisulfate [facility] [address]-71 75 MG TAKE 1 TABLET BY MOUTH ONCE A DAY Results No Known Results Summary Purpose [employer] Submission
--- OUTSIDE RECORDS SUMMARY | 2017-02-03 10:04 | XMS REPORT ---
Author Author PRABHA HILL Organization [employer] Address Unknown Phone Unavailable Care Team Providers Care Terrazzo Worker Name Role Phone PRABHA HILL CP Unavailable Allergies No Known Allergies Problems Problem Type Condition Code Onset Dates Condition Status Problem CHF (congestive heart failure) 428.0 Active Problem Diabetes 250.00 Active Problem CAD (coronary artery disease) 414.00 Active Problem 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 Active Problem Essential hypertension I10 Active Problem Essential (primary) hypertension I10 Active Problem Type 2 diabetes mellitus with unspecified complications E11.8 Active Problem Dysuria R30.0 Active Problem PVD (peripheral vascular disease) I73.9 Active Problem Type 2 diabetes mellitus with diabetic neuropathy, unspecified E11.40 Active Problem Essential hypertension, benign 401.1 Active Problem Other and unspecified hyperlipidemia 272.4 [...]
--- OUTSIDE RECORDS SUMMARY | 2017-02-03 10:04 | XMS REPORT ---
Author Author PRABHA HILL [facility] eClinicalWorks Address Unknown Phone Unavailable Care Team Providers Care [place] Department Manager Name Role Phone PRABHA HILL CP Unavailable Allergies, Adverse Reactions, Alerts Substance Reaction Event Type Sulfacetamide Sod-Sulfur Info Not Available Drug Allergy Protamine Sulfate Info Not Available Drug Allergy Penicillin G Potassium Info Not Available Drug Allergy Bactrim Info Not Available Drug Allergy Problems Problem Type Condition ICD-9 Code Onset Dates Condition Status Assessment Diabetes 250.00 Active Problem Other dyspnea and respiratory abnormalities 786.09 Active Assessment Gout 274.9 Active Problem CAD (coronary artery disease) 414.00 Active Problem CHF (congestive heart failure) 428.0 Active Problem Diabetes 250.00 Active Problem Other and unspecified hyperlipidemia 272.4 Active Problem Essential hypertension, benign 401.1 Active Problem 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.19 Active Problem Diabetes with other specified manifestations, type II or unspecified type, not stated as uncontrolled 250.80 Active Medications Medication Code System Code Instructions Start Date End Date Status Dosage Lantus SoloStar [facility] [address]-20 100 UNIT/ML INJECT 32 UNITS SUBCUTANEOUSLY ONCE DAILY. Protonix [facility] [address]-88 40 mg 2012 take 1 tablet (40 mg ) by oral route once daily PredniSONE [facility] [address]-81 10 MG Orally Once a day X4 days, 3 daily X3 days, 2 daily X 2 days, 1 daily for 1 day Mar 26, 2015 Apr 05, 2015 4 tablet with food or milk montelukast ND 0 10 mg Sep 08, 2014 take 1 tablet (10 mg) by oral route once daily in the evening Aspirin [facility] [address]-31 81 mg Aug 01, 2014 1 tablet by Oral route 1 time per day Furosemide [facility] 92240259072 40 MG TAKE 1 TABLET BY MOUTH ONCE A DAY Coreg [facility] [address]-81 12.5 MG Orally Twice a day 1 tablet Enalapril Maleate [facility] [address]-85 5 MG Orally Twice a day 1 tablet GlucaGen HypoKit [facility] [address]-76 1 mg February 13, 2014 1 dose by Subcutaneous route 1 time per day PRN as directed for hypoglycemia Plavix [facility] 27200870929 75 MG 1 tablet by Oral route 1 time per day NovoLog [facility] 71746042787 100 UNIT/ML 7 units by Subcutaneous route 3 times per day with meals Isosorbide Dinitrate [facility] [address]-58 5 MG Orally Once a day 1 tablet Celexa [facility] 48915144866 20 MG 1 tablet by Oral route 1 time per day Vitamin D [facility] [address]-89 5,000 unit October 01, 2011 1 Capsule 1 time per day Procedures Procedure Coding System Code Date GLYCATED HEMOGLOBIN TEST CPT-4 37058 Mar 26, 2015 [facility] VISIT ESTABLISHED PATIENT CPT-4 G0467 Mar 26, 2015 LAB NOT BILLED BY [facility] CPT-4 NOBLL Mar 26, 2015 VENIPUNCT, ROUTINE* CPT-4 01578 Mar 26, 2015 Office Visit, Est Pt., Level 3 CPT-4 92514 Mar 26, 2015 Vital Signs Date/Time: Mar 26, 2015 Temperature 97.6 F Weight 96.5 lbs Height 62 in BMI 17.65 Index Blood Pressure Diastolic 66 mmHg Blood Pressure Systolic 128 mmHg Cardiac Monitoring Heart Rate 68 bpm Results Name Result Date Reference Range Unit Abnormality Flag URIC ACID, SERUM ROUTINE VENIPUNCTURE A1C (IN HOUSE) Summary Purpose eClinicalWorks Submission
--- OUTSIDE RECORDS SUMMARY | 2017-02-03 10:05 | XMS REPORT ---
Author Author HODAN BRASWELL [facility] eClinicalWorks Address Unknown Phone Unavailable Care Team Providers Care Sample Sewer Name Role Phone HODAN BRASWELL CP Unavailable Allergies, Adverse Reactions, Alerts Substance Reaction Event Type Sulfacetamide Sod-Sulfur Info Not Available Drug Allergy Protamine Sulfate Info Not Available Drug Allergy Penicillin G Potassium Info Not Available Drug Allergy Bactrim Info Not Available Drug Allergy Problems Problem Type Condition Code Onset Dates Condition Status Problem CHF (congestive heart failure) 428.0 Active Problem Diabetes 250.00 Active Problem CAD (coronary artery disease) 414.00 Active Problem 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 Active Problem Essential hypertension I10 Active Problem Hypothyroidism (acquired) E03.9 Active Problem Type 2 diabetes mellitus with unspecified complications E11.8 Active Problem Dysuria R30.0 Active Problem PVD (peripheral vascular disease) I73.9 Active Problem Type 2 diabetes mellitus with diabetic neuropathy, unspecified E11.40 Active Assessment Acute cystitis with hematuria N30.01 Active Problem Essential hypertension, benign 401.1 Active Problem Other and unspecified hyperlipidemia 272.4 Active Assessment Burning with urination R30.0 Active Problem Diabetes with other specified manifestations, type II or unspecified type, not stated as uncontrolled 250.80 Active Problem Other dyspnea and respiratory abnormalities 786.09 Active Problem 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.19 Active Medications Medication Code System Code Instructions Start Date End Date Status Dosage Clopidogrel Bisulfate [facility] 28044306289 75 MG TAKE 1 TABLET BY MOUTH ONCE A DAY Fenofibric Acid [facility] [address]-46 135 MG Orally Once a day 1 capsule Carvedilol [facility] [address]-10 3.125 MG Orally 2 times a day 1/2 tablet Tresiba FlexTouch [facility] [address]-16 200 UNIT/ML Subcutaneous once a day February 20, 2016 20u Cipro [facility] [address]-56 500 MG Orally Twice a day May 29, 2016 Jun 08, 2016 1 tablet Citalopram Hydrobromide [facility] 41675100603 20 MG TAKE 1 TABLET BY MOUTH ONCE A DAY Aspirin [facility] [address]-91 81 MG Orally Once a day 1 tablet NovoLog Flexpen [facility] [address]-42 100 UNIT/ML Subcutaneous 3 times a day Inject 5units with meals Enalapril Maleate [facility] [address]-45 2.5 MG Orally Once a day 1 tablet Levothyroxine Sodium [facility] [address]-96 25 MCG Orally Once a day February 21, 2016 1 tablet Crestor [facility] [address]-11 10 MG Orally Once a day 1 tablet Trutest Blood Glucose Test Strip ND 0 N/A subcutaneously 6 times a day. E11.40 January 16, 2016 test blood sugar Procedures Procedure Coding System Code Date [facility] NOBLL May 29, 2016 [facility] VISIT ESTABLISHED PATIENT CPT-4 G0467 May 29, 2016 URINALYSIS, AUTO, W/O SCOPE CPT-4 16755 May 29, 2016 Office Visit, Est Pt., Level 3 CPT-4 54314 May 29, 2016 Vital Signs Date/Time: May 29, 2016 Cardiac Monitoring Heart Rate 92 bpm Weight 188 lbs Height 62 in BMI 34.38 Index Blood Pressure Diastolic 60 mmHg Blood Pressure Systolic 120 mmHg Results Name Result Date Reference Range Unit Abnormality Flag UA LONG DIP (IN HOUSE) ----TA Trace [id number] ----NIT Positive [id number] ----Exp date [id number] ----Lot # [id number] ----SG >=1.030 [id number] ----KET negative [id number] ----VALENCIA Negative [id number] ----GLU Negative [id number] ----Odor none [id number] ----pH 5.5 [id number] ----BLO Trace-intact [id number] ----URO 0.2 [id number] ----Protein 1+ [id number] ----Lot # [id number] ----Exp date [id number] ----Clarity cloudy [id number] ----Color kierra [id number] CULTURE, URINE ----Result 1 Escherichia coli [id number] A ----Urine Culture, Routine Final report [id number] Summary Purpose eClinicalWorks Submission
--- OUTSIDE RECORDS SUMMARY | 2017-02-03 10:05 | XMS REPORT ---
Author Author ANNA HILL [facility] eClinicalWorks Address Unknown Phone Unavailable Care Team Providers Care Manager Production Name Role Phone ANNA HILL CP Unavailable Allergies, Adverse Reactions, Alerts Substance Reaction Event Type Sulfacetamide Sod-Sulfur Info Not Available Drug Allergy Protamine Sulfate Info Not Available Drug Allergy Penicillin G Potassium Info Not Available Drug Allergy Bactrim Info Not Available Drug Allergy Problems Problem Type Condition Code Onset Dates Condition Status Assessment Hypotension, unspecified I95.9 Active Problem Other dyspnea and respiratory abnormalities 786.09 Active Assessment Urinary tract infection, site not specified N39.0 Active Assessment Generalized edema R60.1 Active Assessment Type 2 diabetes mellitus with unspecified complications E11.8 Active Problem CAD (coronary artery disease) 414.00 [...] Instructions Start Date End Date Status Dosage Cipro [facility] [address]-65 500 MG Orally Twice a day 1 tablet Folic Acid [facility] [address]-51 800 MCG Orally Once a day 1 tablet Crestor [facility] [address]-29 10 MG Orally Once a day 1 tablet Plavix [facility] 08429935980 75 MG 1 tablet by Oral route 1 time per day Montelukast Sodium [facility] 06992968791 10 MG take 1 tablet (10 mg) by oral route once daily in the evening Isosorbide Mononitrate CR [facility] [address]-48 30 MG Orally Once a day 1 tablet Aspirin [facility] [address]-11 81 mg Aug 01, 2014 1 tablet by Oral route 1 time per day NovoLog Flexpen [facility] [address]-59 100 unit/mL November 29, 2013 7 units by Subcutaneous route 3 times per day with meals Lantus SoloStar [facility] [address]-86 100 UNIT/ML INJECT 29 UNITS SUBCUTANEOUSLY ONCE DAILY. Trilipix [facility] [address]-40 135 MG Orally Once a day 1 capsule TRUEtest Test [facility] 0 Test Strips Dx:250.80 3 times a day Trevin to sign for Anna Apr 27, 2015 as directed Fish Oil [facility] 13877-65480 1200 MG Orally Once a day 4 capsule Furosemide [facility] 82483199737 40 MG TAKE 1 TABLET BY MOUTH ONCE A DAY Celexa [facility] 72387537600 20 MG 1 tablet by Oral route 1 time per day Procedures Procedure Coding System Code Date LAB NOT BILLED BY [facility] CPT-4 NOBLL May 03, 2015 [facility] VISIT ESTABLISHED PATIENT CPT-4 G0467 May 03, 2015 URINALYSIS, AUTO, W/O SCOPE CPT-4 99321 May 03, 2015 Office Visit, Est Pt., Level 3 CPT-4 15708 May 03, 2015 Vital Signs Date/Time: May 03, 2015 Cardiac Monitoring Heart Rate 88 bpm Weight 200 lbs Height 62 in BMI 36.58 Index Blood Pressure Diastolic 66 mmHg Blood Pressure Systolic 104 mmHg Results Name Result Date Reference Range Unit Abnormality Flag UA LONG DIP (IN HOUSE) CULTURE, URINE Summary Purpose eClinicalWorks Submission
--- OUTSIDE RECORDS SUMMARY | 2017-02-03 10:05 | XMS REPORT ---
Author MORAIMA Land [facility] eClinicalWorks Address Unknown Phone Unavailable Care Team Providers Care Cullet Crusher And Washer Name Role Phone MORAIMA VYAS CP Unavailable Allergies, Adverse Reactions, Alerts Substance Reaction Event Type Sulfacetamide Sod-Sulfur Info Not Available Drug Allergy Protamine Sulfate Info Not Available Drug Allergy Penicillin G Potassium Info Not Available Drug Allergy Bactrim Info Not Available Drug Allergy Problems Problem Type Condition Code Onset Dates Condition Status Problem Other dyspnea and respiratory abnormalities 786.09 Active Assessment Shoulder pain, left M25.512 Active Problem CAD (coronary artery disease) 414.00 [...] Instructions Start Date End Date Status Dosage Citalopram Hydrobromide [facility] 20643853034 20 MG TAKE 1 TABLET BY MOUTH ONCE A DAY Clopidogrel Bisulfate [facility] 34316097916 75 MG TAKE 1 TABLET BY MOUTH ONCE A DAY Docusate Sodium [facility] [address]-50 100 mg October 05, 2012 take 3 capsules by Oral route at bedtime as needed 2 times per day Montelukast Sodium [facility] 33400373700 10 MG take 1 tablet (10 mg) by oral route once daily in the evening Aspirin [facility] [address]-75 81 mg Aug 01, 2014 1 tablet by Oral route 1 time per day Vitamin D [facility] [address]-76 1000 UNIT Orally Once a day October 01, 2011 1 Capsule 1 time per day NovoLog Flexpen [facility] [address]-52 100 unit/mL November 29, 2013 7 units by Subcutaneous route 3 times per day with meals Furosemide [facility] 34858674699 40 MG TAKE 1 TABLET BY MOUTH ONCE A DAY GlucaGen HypoKit [facility] [address]-00 1 mg February 13, 2014 1 dose by Subcutaneous route 1 time per day PRN as directed for hypoglycemia Crestor [facility] [address]-08 10 MG Orally Once a day 1 tablet montelukast ND 0 10 mg Sep 08, 2014 take 1 tablet (10 mg) by oral route once daily in the evening Enalapril Maleate [facility] [address]-31 2.5 MG Orally Twice a day 1 tablet Trilipix [facility] [address]-66 135 MG Orally Once a day 1 capsule Fish Oil [facility] [address]761 1200 MG Orally Once a day 4 capsule Hydrocodone-Acetaminophen [facility] [address]-60 10-325 MG Orally every 6 hrs Jun 05, 2015 Jul 05, 2015 1 tablet as needed Folic Acid [facility] [address]-76 800 MCG Orally Once a day 1 tablet Coreg [facility] [address]-82 6.25 MG Orally Twice a day 1 tablet TRUEtest Test [facility] 0 Test Strips Dx:250.80 3 times a day Trevin to sign for Anna Apr 27, 2015 as directed Lanhollieus Luana [facility] [address]-15 100 UNIT/ML INJECT 29 UNITS SUBCUTANEOUSLY ONCE DAILY. Isosorbide Mononitrate CR [facility] [address]-27 30 MG Orally Once a day 1 tablet Procedures Procedure Coding System Code Date DRAIN/INJECT, JOINT/BURSA CPT-4 03525 Jun 15, 2015 Vital Signs Date/Time: Jun 15, 2015 Temperature 96.4 F Weight 196.7 lbs Height 62 in BMI 35.97 Index Blood Pressure Diastolic 62 mmHg Blood Pressure Systolic 118 mmHg Cardiac Monitoring Heart Rate 68 bpm Results No Known Results Summary Purpose eClinicalWorks Submission
--- OUTSIDE RECORDS SUMMARY | 2017-02-03 10:06 | XMS REPORT ---
Author Author PRABHA HILL [facility] eClinicalWorks Address Unknown Phone Unavailable Care Team Providers Care Postage Machine Operator Name Role Phone PRABHA HILL CP Unavailable [...] with diabetic neuropathy, unspecified E11.40 Active Assessment Hypothyroidism (acquired) E03.9 Active Assessment Essential hypertension I10 Active Assessment PVD (peripheral vascular disease) I73.9 Active Problem Essential hypertension, benign 401.1 Active Problem Other and unspecified hyperlipidemia 272.4 Active Assessment Dysuria R30.0 Active Problem Diabetes with other specified manifestations, type II or unspecified type, not stated as uncontrolled 250.80 Active Problem Other dyspnea and respiratory abnormalities 786.09 Active Problem 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.19 Active Medications Medication Code System Code Instructions Start Date End Date Status Dosage Enalapril Maleate [facility] [address]-09 2.5 MG Orally Once a day 1 tablet Carvedilol [facility] [address]-23 3.125 MG Orally 2 times a day 1/2 tablet Citalopram Hydrobromide [facility] 73696784556 20 MG TAKE 1 TABLET BY MOUTH ONCE A DAY Trutest Blood Glucose Test Strip [facility] 0 N/A subcutaneously 6 times a day. E11.40 January 16, 2016 test blood sugar NovoLog Flexpen [facility] [address]-35 100 UNIT/ML Subcutaneous 3 times a day Inject 5units with meals Crestor [facility] [address]-77 10 MG Orally Once a day 1 tablet Tresiba FlexTouch [facility] [address]-90 200 UNIT/ML Subcutaneous once a day February 20, 2016 20u Cipro [facility] [address]-06 500 MG Orally Twice a day May 29, 2016 Jun 08, 2016 1 tablet Levothyroxine Sodium [facility] [address]-57 25 MCG Orally Once a day February 21, 2016 1 tablet Aspirin [facility] [address]-48 81 MG Orally Once a day 1 tablet Fenofibric Acid [facility] [address]-16 135 MG Orally Once a day 1 capsule Clopidogrel Bisulfate [facility] 42683695915 75 MG TAKE 1 TABLET BY MOUTH ONCE A DAY Procedures Procedure Coding System Code Date Office Visit, Est Pt., Level 3 CPT-4 88349 Jun 05, 2016 URINALYSIS, AUTO, W/O SCOPE CPT-4 86623 Jun 05, 2016 [facility] VISIT ESTABLISHED PATIENT CPT-4 G0467 Jun 05, 2016 VENIPUNCT, ROUTINE* CPT-4 59702 Jun 05, 2016 [facility] Jun 05, 2016 Vital Signs Date/Time: Jun 05, 2016 Cardiac Monitoring Heart Rate 72 bpm Weight 186.9 lbs Height 62 in BMI 34.18 Index Blood Pressure Diastolic 66 mmHg Blood Pressure Systolic 108 mmHg Results Name Result Date Reference Range Unit Abnormality Flag TSH ----TSH 2.650 [id number] 0.450-4.500 uIU/mL UA LONG DIP (IN HOUSE) ----TA Negative [id number] ----NIT Negative [id number] ----SG >1.030 20160605 ----KET Negative 20160605 ----VALECNIA Negative 20160605 ----GLU Negative 20160605 ----Odor none 20160605 ----pH 5.5 20160605 ----BLO Negative 20160605 ----URO 0.2 20160605 ----Protein Negative 20160605 ----Lot # [id number] ----Exp date [id number] ----Clarity clear 20160605 ----Color yellow [id number] ROUTINE VENIPUNCTURE Summary Purpose eClinicalWorks Submission
--- OUTSIDE RECORDS SUMMARY | 2017-02-03 10:06 | XMS REPORT ---
Author Author PRABHA HILL Organization eClinicalWorks Address Unknown Phone Unavailable Care Team Providers Care Pyrometer Operator Name Role Phone PRABHA HILL CP [...] Problem PVD (peripheral vascular disease) I73.9 Active Assessment Hypothyroidism (acquired) E03.9 Active Problem Other and unspecified hyperlipidemia 272.4 [...] Instructions Start Date End Date Status Dosage Levothyroxine Sodium [facility] [address]-87 25 MCG Orally Once a day February 21, 2016 1 tablet Results No Known Results Summary Purpose eClinicalWorks Submission
--- OUTSIDE RECORDS SUMMARY | 2017-02-03 10:06 | XMS REPORT ---
Author Author PRABHA HILL [facility] eClinicalWorks Address Unknown Phone Unavailable Care Team Providers Care Ecology Professor Name Role Phone PRABHA HILL CP Unavailable Allergies, Adverse Reactions, Alerts Substance Reaction Event Type Sulfacetamide Sod-Sulfur Info Not Available Drug Allergy Protamine Sulfate Info Not Available Drug Allergy Penicillin G Potassium Info Not Available Drug Allergy Bactrim Info Not Available Drug Allergy Problems Problem Type Condition Code Onset Dates Condition Status Problem Other and unspecified hyperlipidemia 272.4 Active Problem 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.19 Active Problem Diabetes with other specified manifestations, type II or unspecified type, not stated as uncontrolled 250.80 Active Problem Type 2 diabetes mellitus with diabetic neuropathy, unspecified E11.40 Active Problem Type 2 diabetes mellitus with unspecified complications E11.8 Active Problem PVD (peripheral vascular disease) I73.9 Active Problem CAD (coronary artery disease) 414.00 Active Problem CHF (congestive heart failure) 428.0 Active Problem Dysuria R30.0 Active Problem Diabetes 250.00 Active Assessment terminal supervisor 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.4 Active Assessment Type 2 diabetes mellitus with diabetic neuropathy, unspecified E11.40 Active Assessment Fatigue, unspecified type R53.83 Active Assessment Weakness R53.1 Active Assessment Acute osteomyelitis of other site M86.18 Active Problem Other dyspnea and respiratory abnormalities 786.09 Active Assessment PVD (peripheral vascular disease) I73.9 Active Problem Essential hypertension, benign 401.1 Active Medications Medication Code System Code Instructions Start Date End Date Status Dosage Tylenol/Codeine #3 [facility] [address]-44 300-30 MG Orally every 4-6 hours as needed February 04, 2016 1 tablet as needed Citalopram Hydrobromide [facility] [address]-71 20 MG Orally Once a day 1 tablet Trutest Blood Glucose Test Strip [facility] 0 N/A subcutaneously 2 times a day January 16, 2016 test blood sugar Isosorbide Mononitrate CR [facility] [address]-62 30 MG Orally Once a day 1 tablet Clindamycin HCl [facility] [address]-52 150 MG Orally 4 times a day 2 capsules Lantus [facility] [address]-80 100 UNIT/ML Subcutaneous not defined Lantus SoloStar [facility] 81466356635 100 UNIT/ML Subcutaneous Once a day Inject 32 units Doxycycline Hyclate [facility] [address]-71 100 MG Orally every 12 hrs 1 tablet Crestor [facility] [address]-34 10 MG Orally Once a day 1 tablet Aspirin [facility] [address]-38 81 MG Orally Once a day 1 tablet Fenofibric Acid [facility] [address]-04 135 MG Orally Once a day 1 capsule NovoLog Flexpen [facility] [address]-04 100 UNIT/ML Subcutaneous 3 times a day Inject 7units with meals Montelukast Sodium [facility] [address]-66 10 MG Orally Once a day 1 tablet in the evening Carvedilol [facility] [address]-98 6.25 MG Orally not defined Furosemide [facility] [address]-81 40 MG Orally Once a day 1 tablet Clopidogrel Bisulfate [facility] [address]-87 75 MG Orally Once a day 1 tablet Enalapril Maleate [facility] [address]-15 2.5 MG Orally Once a day 1 tablet Procedures Procedure Coding System Code Date VENIPUNCT, ROUTINE* CPT-4 36367 February 04, 2016 [facility] VISIT ESTABLISHED PATIENT CPT-4 G0467 February 04, 2016 [facility] CPT-4 NOBLL February 04, 2016 Office Visit, Est Pt., Level 3 CPT-4 62675 February 04, 2016 Vital Signs Date/Time: February 04, 2016 Cardiac Monitoring Heart Rate 80 bpm Weight 192.0 lbs Height 62 in BMI 35.11 Index Blood Pressure Diastolic 50 mmHg Blood Pressure Systolic 100 mmHg Results No Known Results Summary Purpose eClinicalWorks Submission
--- OUTSIDE RECORDS SUMMARY | 2017-02-03 10:07 | XMS REPORT ---
Author Author PRABHA HILL Organization eClinicalWorks Address Unknown Phone Unavailable Care Team Providers Care Solution Make Up Operator Name Role Phone PRABHA HILL CP [...]
--- OUTSIDE RECORDS SUMMARY | 2017-02-03 10:07 | XMS REPORT ---
Author Author PRABHA HILL Organization e[employer] Address Unknown Phone Unavailable Care Team Providers Care Commercial Floor Covering Installer Name Role Phone PRABHA HILL CP Unavailable Allergies No Known Allergies Problems Problem Type Condition Code Onset Dates Condition Status Problem 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.19 Active Problem CAD (coronary artery disease) 414.00 Active Problem CHF (congestive heart failure) 428.0 Active Problem Essential hypertension I10 Active Problem PVD (peripheral vascular disease) I73.9 Active Problem 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 Active Problem Dysuria R30.0 Active Problem Diabetes 250.00 Active Problem Type 2 diabetes mellitus with diabetic neuropathy, unspecified E11.40 Active Problem Type 2 diabetes mellitus with unspecified complications E11.8 Active Problem Other dyspnea and respiratory abnormalities 786.09 Active Problem Essential hypertension, benign 401.1 Active Problem Other and unspecified hyperlipidemia 272.4 Active Problem Diabetes with other specified manifestations, type II or unspecified type, not stated as uncontrolled 250.80 Active Medications No Known Medications Results No Known Results Summary Purpose eClinicalWorks Submission
--- OUTSIDE RECORDS SUMMARY | 2017-02-03 10:07 | XMS REPORT ---
Author Author PRABHA HILL Organization [employer] Address Unknown Phone Unavailable Care Team Providers Care Solutions Architect Consultant Name Role Phone PRABHA HILL CP [...]
--- OUTSIDE RECORDS SUMMARY | 2017-02-03 10:07 | XMS REPORT ---
Author Author PRABHA HILL Organization [employer] Address Unknown Phone Unavailable Care Team Providers Care Dance Coach Name Role Phone PRABHA HILL CP Unavailable [...] Date End Date Status Dosage Levothyroxine Sodium [facility] [address]-44 25 MCG Orally Once a day February 21, 2016 1 tablet Results No Known Results Summary Purpose eClinicalWorks Submission
--- OUTSIDE RECORDS SUMMARY | 2017-02-03 10:08 | XMS REPORT ---
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 Active Problem Diabetes with other specified manifestations, type II or unspecified type, not stated as uncontrolled 250.80 Active Problem Other dyspnea and respiratory abnormalities 786.09 Active Problem 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.19 Active Medications Medication Code System Code Instructions Start Date End Date Status Dosage Clopidogrel Bisulfate [facility] [address]-40 75 MG Orally Once a day 1 tablet Fenofibric Acid [facility] [address]-88 135 MG Orally Once a day 1 capsule Clindamycin HCl [facility] [address]-12 150 MG Orally 4 times a day 2 capsules Tresiba FlexTouch [facility] [address]-33 200 UNIT/ML Subcutaneous once a day February 20, 2016 19u Aspirin [facility] [address]-87 81 MG Orally Once a day 1 tablet Furosemide [facility] [address]-60 40 MG Orally Once a day 1 tablet Trutest Blood Glucose Test Strip ND 0 N/A subcutaneously 2 times a day January 16, 2016 test blood sugar NovoLog Flexpen [facility] [address]-93 100 UNIT/ML Subcutaneous 3 times a day Inject 5units with meals Citalopram Hydrobromide [facility] [address]-07 20 MG Orally Once a day 1 tablet Procedures Procedure Coding System Code Date [facility] VISIT ESTABLISHED PATIENT CPT-4 G0467 February 20, 2016 Office Visit, Est Pt., Level 3 CPT-4 66764 February 20, 2016 GLUCOSE BLOOD TEST CPT-4 32855 February 20, 2016 Vital Signs Date/Time: February 20, 2016 Cardiac Monitoring Heart Rate 72 bpm Weight 193 lbs Height 62 in BMI 35.30 Index Blood Pressure Diastolic 60 mmHg Blood Pressure Systolic 110 mmHg Results No Known Results Summary Purpose eClinicalWorks Submission
--- OUTSIDE RECORDS SUMMARY | 2017-02-03 10:08 | XMS REPORT ---
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 Active Medications Medication Code System Code Instructions Start Date End Date Status Dosage Fenofibric Acid [facility] [address]-21 135 MG Orally Once a day 1 capsule Furosemide [facility] 75679338894 40 MG TAKE 1 TABLET BY MOUTH ONCE A DAY Carvedilol [facility] [address]-42 3.125 MG Orally 2 times a day 1 tablet Citalopram Hydrobromide [facility] 02782751244 20 MG TAKE 1 TABLET BY MOUTH ONCE A DAY Clindamycin HCl [facility] [address]-26 150 MG Orally 4 times a day 2 capsules Clopidogrel Bisulfate [facility] 23499629341 75 MG TAKE 1 TABLET BY MOUTH ONCE A DAY Enalapril Maleate [facility] [address]-53 2.5 MG Orally Once a day 1 tablet Levothyroxine Sodium [facility] [address]-48 25 MCG Orally Once a day February 21, 2016 1 tablet Crestor [facility] [address]-90 10 MG Orally Once a day 1 tablet Trutest Blood Glucose Test Strip [facility] 0 N/A subcutaneously 6 times a day. E11.40 January 16, 2016 test blood sugar Aspirin [facility] [address]-50 81 MG Orally Once a day 1 tablet NovoLog Flexpen [facility] [address]-82 100 UNIT/ML Subcutaneous 3 times a day Inject 5units with meals Tresiba FlexTouch [facility] [address]-62 200 UNIT/ML Subcutaneous once a day February 20, 2016 20u Procedures Procedure Coding System Code Date INTRAORL-PERIAPICAL 1 FILM 65956 CPT-4 D0220 May 27, 2016 BITEWINGS - FOUR FILMS CPT-4 D0274 May 27, 2016 COMP ORAL EVALUATION - NEW/EST PT CPT-4 D0150 May 27, 2016 Full mouth debridement CPT-4 D4355 May 27, 2016 PANORAMIC FILM SEE ALSO CODE 46028 CPT-4 D0330 May 27, 2016 Vital Signs Date/Time: May 27, 2016 Blood Pressure Systolic 128 mmHg Cardiac Monitoring Heart Rate 62 bpm Height 62 in Blood Pressure Diastolic 78 mmHg Results No Known Results Summary Purpose eClinicalWorks Submission
--- OUTSIDE RECORDS SUMMARY | 2017-02-03 10:08 | XMS REPORT ---
Author Author PRABHA HILL [facility] eClinicalWorks Address Unknown Phone Unavailable Care Team Providers Care Electronic Maintenance Supervisor Name Role Phone PRABHA HILL CP Unavailable [...] Problem Essential hypertension, benign 401.1 Active Problem Type 2 diabetes mellitus with diabetic neuropathy, unspecified E11.40 Active Problem Type 2 diabetes mellitus with unspecified complications E11.8 Active Problem PVD (peripheral vascular disease) I73.9 Active Problem CAD (coronary artery disease) 414.00 Active Problem CHF (congestive heart failure) 428.0 Active Problem Dysuria R30.0 Active Problem Diabetes 250.00 Active Medications Medication Code System Code Instructions Start Date End Date Status Dosage Trutest Blood Glucose Test Strip NDC 0 N/A subcutaneously 2 times a day January 16, 2016 test blood sugar Results No Known Results Summary Purpose eClinicalWorks Submission
--- OUTSIDE RECORDS SUMMARY | 2017-02-03 10:08 | XMS REPORT ---
Author Author PRABHA HILL [facility] e[employer] Address Unknown Phone Unavailable Care Team Providers Care Online Communications Manager Name Role Phone PRABHA HILL CP Unavailable Allergies No Known Allergies Problems Problem Type Condition Code Onset Dates Condition Status Problem Other dyspnea and respiratory abnormalities 786.09 Active Assessment Encounter for immunization Z23 Active Problem CAD (coronary artery disease) 414.00 Active Problem CHF (congestive heart failure) 428.0 Active Problem Diabetes 250.00 Active Problem Other and unspecified hyperlipidemia 272.4 Active Problem Essential hypertension, benign 401.1 Active Problem 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
--- OUTSIDE RECORDS SUMMARY | 2017-02-03 10:08 | XMS REPORT ---
Author Author ANNA HILL [facility] eClinicalWorks Address Unknown Phone Unavailable Care Team Providers Care Squeegee Finisher Name Role Phone ANNA HILL CP Unavailable Allergies, Adverse Reactions, Alerts Substance Reaction Event Type Sulfacetamide Sod-Sulfur Info Not Available Drug Allergy Protamine Sulfate Info Not Available Drug Allergy Penicillin G Potassium Info Not Available Drug Allergy Bactrim Info Not Available Drug Allergy Problems Problem Type Condition Code Onset Dates Condition Status Problem Other dyspnea and respiratory abnormalities 786.09 Active Assessment Left shoulder pain M25.512 Active Problem CAD (coronary artery disease) [...] Instructions Start Date End Date Status Dosage Vitamin D [facility] [address]-73 1000 UNIT Orally Once a day October 01, 2011 1 Capsule 1 time per day montelukast [facility] 0 10 mg Sep 08, 2014 take 1 tablet (10 mg) by oral route once daily in the evening GlucaGen HypoKit [facility] [address]-02 1 mg February 13, 2014 1 dose by Subcutaneous route 1 time per day PRN as directed for hypoglycemia Trilipix [facility] [address]-20 135 MG Orally Once a day 1 capsule Furosemide [facility] 91011724880 40 MG TAKE 1 TABLET BY MOUTH ONCE A DAY Docusate Sodium [facility] [address]-15 100 mg October 05, 2012 take 3 capsules by Oral route at bedtime as needed 2 times per day Clopidogrel Bisulfate [facility] 53188507949 75 MG TAKE 1 TABLET BY MOUTH ONCE A DAY Folic Acid [facility] [address]-85 800 MCG Orally Once a day 1 tablet Montelukast Sodium [facility] 20291009942 10 MG take 1 tablet (10 mg) by oral route once daily in the evening Crestor [facility] [address]-24 10 MG Orally Once a day 1 tablet Citalopram Hydrobromide [facility] 11032318699 20 MG TAKE 1 TABLET BY MOUTH ONCE A DAY Hydrocodone-Acetaminophen [facility] [address]-19 10-325 MG Orally every 6 hrs Jun 05, 2015 Jul 05, 2015 1 tablet as needed Fish Oil [facility] [address]998 1200 MG Orally Once a day 4 capsule Coreg [facility] [address]-85 6.25 MG Orally Twice a day 1 tablet Enalapril Maleate [facility] [address]-70 2.5 MG Orally Twice a day 1 tablet Isosorbide Mononitrate CR [facility] [address]-55 30 MG Orally Once a day 1 tablet TRUEtest Test [facility] 0 Test Strips Dx:250.80 3 times a day Trevin to sign for Anna Apr 27, 2015 as directed Aspirin [facility] [address]-94 81 mg Aug 01, 2014 1 tablet by Oral route 1 time per day NovoLog Flexpen [facility] [address]-51 100 unit/mL November 29, 2013 7 units by Subcutaneous route 3 times per day with meals Lantus SoloStar [facility] [address]-39 100 UNIT/ML INJECT 29 UNITS SUBCUTANEOUSLY ONCE DAILY. Procedures Procedure Coding System Code Date Office Visit, Est Pt., Level 3 CPT-4 18019 Jun 05, 2015 [facility] VISIT ESTABLISHED PATIENT CPT-4 G0467 Jun 05, 2015 Vital Signs Date/Time: Jun 05, 2015 Temperature 98.5 F Weight 197.0 lbs Height 62 in BMI 36.03 Index Blood Pressure Diastolic 60 mmHg Blood Pressure Systolic 130 mmHg Cardiac Monitoring Heart Rate 78 bpm Results No Known Results Summary Purpose eClinicalWorks Submission
--- OUTSIDE RECORDS SUMMARY | 2017-02-03 10:09 | XMS REPORT ---
Author MORAIMA Land [facility] eClinicalWorks Address Unknown Phone Unavailable Care Team Providers Care Installer Metal Flooring Name Role Phone MORAIMA VYAS CP Unavailable [...] Date End Date Status Dosage Citalopram Hydrobromide [facility] 43995650815 20 MG TAKE 1 TABLET BY MOUTH ONCE A DAY Lantus SoloStar [facility] [address]-66 100 UNIT/ML INJECT 29 UNITS SUBCUTANEOUSLY ONCE DAILY. Trilipix [facility] [address]-70 135 MG Orally Once a day 1 capsule Folic Acid [facility] [address]-05 800 MCG Orally Once a day 1 tablet Montelukast Sodium [facility] 61735727014 10 MG take 1 tablet (10 mg) by oral route once daily in the evening Vitamin D [facility] [address]-29 1000 UNIT Orally Once a day October 01, 2011 1 Capsule 1 time per day Enalapril Maleate [facility] [address]-80 2.5 MG Orally Twice a day 1 tablet Coreg [facility] [address]-06 6.25 MG Orally Twice a day 1 tablet Aspirin [facility] [address]-84 81 mg Aug 01, 2014 1 tablet by Oral route 1 time per day Fish Oil [facility] 00495-91172 1200 MG Orally Once a day 4 capsule montelukast [place] 0 10 mg Sep 08, 2014 take 1 tablet (10 mg) by oral route once daily in the evening Docusate Sodium [facility] [address]-44 100 mg October 05, 2012 take 3 capsules by Oral route at bedtime as needed 2 times per day Clopidogrel Bisulfate [facility] 82214683744 75 MG TAKE 1 TABLET BY MOUTH ONCE A DAY Isosorbide Mononitrate CR [facility] [address]-36 30 MG Orally Once a day 1 tablet Crestor [facility] [address]-57 10 MG Orally Once a day 1 tablet Furosemide [facility] 24446906383 40 MG TAKE 1 TABLET BY MOUTH ONCE A DAY GlucaGen HypoKit [facility] [address]-03 1 mg February 13, 2014 1 dose by Subcutaneous route 1 time per day PRN as directed for hypoglycemia TRUEtest Test [facility] 0 Test Strips Dx:250.80 3 times a day Trevin to sign for Anna Apr 27, 2015 as directed NovoLog Flexpen [facility] [address]-35 100 unit/mL November 29, 2013 7 units by Subcutaneous route 3 times per day with meals Procedures Procedure Coding System Code Date Office Visit, Est Pt., Level 3 CPT-4 11533 Jul 17, 2015 [facility] VISIT ESTABLISHED PATIENT CPT-4 G0467 Jul 17, 2015 Vital Signs Date/Time: Jul 17, 2015 Temperature 96.9 F Weight 199.7 lbs Height 62 in BMI 36.52 Index Blood Pressure Diastolic 66 mmHg Blood Pressure Systolic 118 mmHg Cardiac Monitoring Heart Rate 72 bpm Results No Known Results Summary Purpose eClinicalWorks Submission
--- OUTSIDE RECORDS SUMMARY | 2017-02-03 10:09 | XMS REPORT ---
Author Author PRABHA HILL Organization eClinicalWorks Address Unknown Phone Unavailable Care Team Providers Care Gameroom Technician Name Role Phone PRABHA HILL CP Unavailable [...]
--- OUTSIDE RECORDS SUMMARY | 2017-02-03 10:09 | XMS REPORT ---
Author Author PRABHA HILL [facility] eClinicalWorks Address Unknown Phone Unavailable Care Team Providers Care Vice Admiral Name Role Phone PRABHA HILL CP Unavailable [...] diabetes mellitus with unspecified complications E11.8 Active Assessment PVD (peripheral vascular disease) I73.9 Active Assessment Essential hypertension I10 Active Problem Other dyspnea and respiratory abnormalities 786.09 Active Problem Essential hypertension, benign 401.1 Active Assessment 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 Active Problem Other and unspecified hyperlipidemia 272.4 Active Assessment Type 2 diabetes mellitus with unspecified complications E11.8 Active Problem Diabetes with other specified manifestations, type II or unspecified type, not stated as uncontrolled 250.80 Active Medications Medication Code System Code Instructions Start Date End Date Status Dosage Citalopram Hydrobromide [facility] [address]-61 20 MG Orally Once a day 1 tablet Clopidogrel Bisulfate [facility] [address]-07 75 MG Orally Once a day 1 tablet Clindamycin HCl [facility] [address]-11 150 MG Orally 4 times a day 2 capsules Lantus SoloStar [facility] 22420932211 100 UNIT/ML Subcutaneous Once a day Inject 32 units Furosemide [facility] [address]-47 40 MG Orally Once a day 1 tablet Aspirin [facility] [address]-36 81 MG Orally Once a day 1 tablet Crestor [facility] [address]-73 10 MG Orally Once a day 1 tablet NovoLog Flexpen [facility] [address]-97 100 UNIT/ML Subcutaneous 3 times a day Inject 5units with meals Trutest Blood Glucose Test Strip [facility] 0 N/A subcutaneously 2 times a day January 16, 2016 test blood sugar Lantus [facility] [address]-96 100 UNIT/ML Subcutaneous 22u at bedtime Fenofibric Acid [facility] [address]-29 135 MG Orally Once a day 1 capsule Procedures Procedure Coding System Code Date Office Visit, Est Pt., Level 3 CPT-4 12423 February 19, 2016 [facility] VISIT ESTABLISHED PATIENT CPT-4 G0467 February 19, 2016 Vital Signs Date/Time: February 19, 2016 Blood Pressure Systolic 120 mmHg Cardiac Monitoring Heart Rate 70 bpm Height 62 in Blood Pressure Diastolic 70 mmHg Results No Known Results Summary Purpose eClinicalWorks Submission
--- OUTSIDE RECORDS SUMMARY | 2017-02-03 10:13 | XMS REPORT | Continuity of Care Document ---
Author Author [facility] Address Unknown Phone Unavailable Allergies Active Description Code Type Severity Reaction Onset Reported/Identified Relationship to Patient Clinical Status Yes Penicillins [id number] Drug Allergy Unknown N/A 12/14/2005 Yes protamine [id number] Drug Allergy Unknown N/A 02/07/2008 Yes Penicillins Drug Allergy N/A N/A 08/22/2008 Yes protamine Drug Allergy N/A N/A 08/22/2008 Yes Penicillins Drug Allergy 08/22/2008 Yes protamine Drug Allergy 08/22/2008 Yes Bactrim DS Drug Allergy N/A N/A 08/15/2009 Yes Bactrim DS Drug Allergy 08/15/2009 Yes Coumadin Drug Allergy N/A N/A 09/25/2009 Yes Coumadin Drug Allergy 09/25/2009 Yes Sulfa (Sulfonamide Antibiotics) [id number] Drug Allergy Mild N/A 07/04/2010 Yes sulfamethoxazole [id number] Drug Allergy Severe ANAPHYLAXIS 07/05/2010 Yes trimethoprim [id number] Drug Allergy Severe ANAPHYLAXIS 07/05/2010 Yes Naprosyn Drug Allergy N/A N/A 06/30/2011 Yes Naprosyn Drug Allergy 06/30/2011 Medications Problems Date Dx Coded Attending Type Code Diagnosis Diagnosed By ASHUTOSH DAVENPORT APRN Ot E11.621 TYPE 2 DIABETES MELLITUS WITH FOOT ULCER ASHUTOSH DAVENPORT APRN Ot 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 ASHUTOSH DAVENPORT APRN Ot L97.524 NON-PRS CHRONIC ULCER OTH PRT LEFT FOOT ASHUTOSH DAVENPORT APRN Ot T86.821 SKIN GRAFT (ALLOGRAFT) (AUTOGRAFT) FAILU 06/25/1599 ASHUTOSH DAVENPORT APRN Ot E11.621 TYPE 2 DIABETES MELLITUS WITH FOOT ULCER 06/25/1599 ASHUTOSH DAVENPORT APRN Ot 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 06/25/1599 ASHUTOSH DAVENPORT APRN Ot L97.524 NON-PRS CHRONIC ULCER OTH PRT LEFT FOOT 06/25/1599 ASHUTOSH DAVENPORT APRN Ot T86.821 SKIN GRAFT (ALLOGRAFT) (AUTOGRAFT) FAILU 02/29/2008 RAMON DDS, KATALINA F 250.02 DIABETES MELLITUS POORLY CONTROLLED 02/29/2008 RAMON DDS, KATALINA F 414.01 CORONARY ARTERY STENOSIS MULTI-VESSEL 02/29/2008 RAMON DDS, KATALINA F 477.9 RHINITIS ALLERGIC 02/29/2008 250.02 DIABETES MELLITUS POORLY CONTROLLED 02/29/2008 414.01 CORONARY ARTERY STENOSIS MULTI-VESSEL 02/29/2008 477.9 RHINITIS ALLERGIC 02/29/2008 250.02 DIABETES MELLITUS POORLY CONTROLLED 02/29/2008 414.01 CORONARY ARTERY STENOSIS MULTI-VESSEL 02/29/2008 477.9 RHINITIS ALLERGIC 02/29/2008 SURY BOB, ANTWAN Bond 250.02 DIABETES MELLITUS POORLY CONTROLLED 02/29/2008 SURY BOB, ANTWAN Bond 414.01 CORONARY ARTERY STENOSIS MULTI-VESSEL 02/29/2008 SURY BOB, ANTWAN Bond 477.9 RHINITIS ALLERGIC 02/29/2008 PRABHA HILL APRN 250.02 DIABETES MELLITUS POORLY CONTROLLED 02/29/2008 PRABHA HILL APRN 414.01 CORONARY ARTERY STENOSIS MULTI-VESSEL 02/29/2008 PRABHA HILL APRN 477.9 RHINITIS ALLERGIC 02/29/2008 250.02 DIABETES MELLITUS POORLY CONTROLLED 02/29/2008 414.01 CORONARY ARTERY STENOSIS MULTI-VESSEL 02/29/2008 477.9 RHINITIS ALLERGIC 02/29/2008 250.02 DIABETES MELLITUS POORLY CONTROLLED 02/29/2008 414.01 CORONARY ARTERY STENOSIS MULTI-VESSEL 02/29/2008 477.9 RHINITIS ALLERGIC 02/29/2008 250.02 DIABETES MELLITUS POORLY CONTROLLED 02/29/2008 414.01 CORONARY ARTERY STENOSIS MULTI-VESSEL 02/29/2008 477.9 RHINITIS ALLERGIC 02/29/2008 250.02 DIABETES MELLITUS POORLY CONTROLLED 02/29/2008 414.01 CORONARY ARTERY STENOSIS MULTI-VESSEL 02/29/2008 477.9 RHINITIS ALLERGIC 02/29/2008 250.02 DIABETES MELLITUS POORLY CONTROLLED 02/29/2008 414.01 CORONARY ARTERY STENOSIS MULTI-VESSEL 02/29/2008 477.9 RHINITIS ALLERGIC 02/29/2008 SORENSEN DO, ALESSANDRA K 250.02 DIABETES MELLITUS POORLY CONTROLLED 02/29/2008 SORENSEN DO, ALESSANDRA K 414.01 CORONARY ARTERY STENOSIS MULTI-VESSEL 02/29/2008 SORENSEN DO, ALESSANDRA K 477.9 RHINITIS ALLERGIC 02/29/2008 SORENSEN DO, ALESSANDRA K 250.02 DIABETES MELLITUS POORLY CONTROLLED 02/29/2008 SORENSEN DO, ALESSANDRA K 414.01 CORONARY ARTERY STENOSIS MULTI-VESSEL 02/29/2008 SORENSEN DO, ALESSANDRA K 477.9 RHINITIS ALLERGIC 02/29/2008 SORENSEN DO, ALESSANDRA K 250.02 DIABETES MELLITUS POORLY CONTROLLED 02/29/2008 SORENSEN DO, ALESSANDRA K 414.01 CORONARY ARTERY STENOSIS MULTI-VESSEL 02/29/2008 SORENSEN DO, ALESSANDRA K 477.9 RHINITIS ALLERGIC 02/29/2008 SORENSEN DO, ALESSANDRA K 250.02 DIABETES MELLITUS POORLY CONTROLLED 02/29/2008 SORENSEN DO, ALESSANDRA K 414.01 CORONARY ARTERY STENOSIS MULTI-VESSEL 02/29/2008 SORENSEN DO, ALESSANDRA K 477.9 RHINITIS ALLERGIC 02/29/2008 ROBBIE DDSKAHLIL 250.02 DIABETES MELLITUS POORLY CONTROLLED 02/29/2008 ROBBIE DDSKAHLIL M 414.01 CORONARY ARTERY STENOSIS MULTI-VESSEL 02/29/2008 ROBBIE DDKAHILL Ibrahim 477.9 RHINITIS ALLERGIC 02/29/2008 WHITE DDS, FRANKI J 250.02 DIABETES MELLITUS POORLY CONTROLLED 02/29/2008 WHITE DDS, FRANKI J 414.01 CORONARY ARTERY STENOSIS MULTI-VESSEL 02/29/2008 WHITE DDS, FRANKI J 477.9 RHINITIS ALLERGIC 02/29/2008 SORENSEN DO, ALESSANDRA K 250.02 DIABETES MELLITUS POORLY CONTROLLED 02/29/2008 SORENSEN DO, ALESSANDRA K 414.01 CORONARY ARTERY STENOSIS MULTI-VESSEL 02/29/2008 SORENSEN DO, ALESSANDRA K 477.9 RHINITIS ALLERGIC 02/29/2008 SORENSEN DO, ALESSANDRA K 250.02 DIABETES MELLITUS POORLY CONTROLLED 02/29/2008 SORENSEN DO, ALESSANDRA K 414.01 CORONARY ARTERY STENOSIS MULTI-VESSEL 02/29/2008 SORENSEN DO, ALESSANDRA K 477.9 RHINITIS ALLERGIC 02/29/2008 SORENSEN DO, ALESSANDRA K 250.02 DIABETES MELLITUS POORLY CONTROLLED 02/29/2008 SORENSEN DO, ALESSANDRA K 414.01 CORONARY ARTERY STENOSIS MULTI-VESSEL 02/29/2008 SORENSEN DO, ALESSANDRA K 477.9 RHINITIS ALLERGIC 02/29/2008 SORENSEN DO, ALESSANDRA K 250.02 DIABETES MELLITUS POORLY CONTROLLED 02/29/2008 SORENSEN DO, ALESSANDRA K 414.01 CORONARY ARTERY STENOSIS MULTI-VESSEL 02/29/2008 SORENSEN DO, ALESSANDRA K 477.9 RHINITIS ALLERGIC 02/29/2008 SORENSEN DO, ALESSANDRA K 250.02 DIABETES MELLITUS POORLY CONTROLLED 02/29/2008 SORENSEN DO, ALESSANDRA K 414.01 CORONARY ARTERY STENOSIS MULTI-VESSEL 02/29/2008 SORENSEN DO, ALESSANDRA K 477.9 RHINITIS ALLERGIC 02/29/2008 GALINDO BOB, SHERINE N 250.02 DIABETES MELLITUS POORLY CONTROLLED 02/29/2008 GALINDO BOB, SHERINE N 414.01 CORONARY ARTERY STENOSIS MULTI-VESSEL 02/29/2008 GALINDO BOB, SHERINE N 477.9 RHINITIS ALLERGIC 02/29/2008 GLADYS GODFREYS, SHEBA 250.02 DIABETES MELLITUS POORLY CONTROLLED 02/29/2008 GLADYS GODFREYSSHEBA 414.01 CORONARY ARTERY STENOSIS MULTI-VESSEL 02/29/2008 GRAHAM EPIFANIOSSHEBA 477.9 RHINITIS ALLERGIC 02/29/2008 PILI HILL APRNNDA S 250.02 DIABETES MELLITUS POORLY CONTROLLED 02/29/2008 PILI HILL APRNNDA S 414.01 CORONARY ARTERY STENOSIS MULTI-VESSEL 02/29/2008 PILI HILL APRNNDA S 477.9 RHINITIS ALLERGIC 03/28/2008 RAMON DDS, KATALINA F 250.00 DIABETES MELLITUS TYPE 2 03/28/2008 RAMON GODFREYS, KATALINA F 272.4 Hyperlipidemia Hyperlipoproteinemias (old Classification) 03/28/2008 250.00 DIABETES MELLITUS TYPE 2 03/28/2008 272.4 Hyperlipidemia Hyperlipoproteinemias (old Classification) 03/28/2008 250.00 DIABETES MELLITUS TYPE 2 03/28/2008 272.4 Hyperlipidemia Hyperlipoproteinemias (old Classification) 03/28/2008 ANTWAN GA MD 250.00 DIABETES MELLITUS TYPE 2 03/28/2008 ANTWAN GA MD 272.4 Hyperlipidemia Hyperlipoproteinemias (old Classification) 03/28/2008 PILI HILL APRNNDA S 250.00 DIABETES MELLITUS TYPE 2 03/28/2008 PRABHA HILL APRN 272.4 Hyperlipidemia Hyperlipoproteinemias ( old Classification) 03/28/2008 250.00 DIABETES MELLITUS TYPE 2 03/28/2008 272.4 Hyperlipidemia Hyperlipoproteinemias (old Classification) 03/28/2008 250.00 DIABETES MELLITUS TYPE 2 03/28/2008 272.4 Hyperlipidemia Hyperlipoproteinemias (old Classification) 03/28/2008 250.00 DIABETES MELLITUS TYPE 2 03/28/2008 272.4 Hyperlipidemia Hyperlipoproteinemias (old Classification) 03/28/2008 250.00 DIABETES MELLITUS TYPE 2 03/28/2008 272.4 Hyperlipidemia Hyperlipoproteinemias (old Classification) 03/28/2008 250.00 DIABETES MELLITUS TYPE 2 03/28/2008 272.4 Hyperlipidemia Hyperlipoproteinemias (old Classification) 03/28/2008 SORENSEN DO, ALESSANDRA K 250.00 DIABETES MELLITUS TYPE 2 03/28/2008 SORENSEN DO, ALESSANDRA K 272.4 Hyperlipidemia Hyperlipoproteinemias (old Classification) 03/28/2008 SORENSEN DO, ALESSANDRA K 250.00 DIABETES MELLITUS TYPE 2 03/28/2008 SORENSEN DO, ALESSANDRA K 272.4 Hyperlipidemia Hyperlipoproteinemias (old Classification) 03/28/2008 SORENSEN DO, ALESSANDRA K 250.00 DIABETES MELLITUS TYPE 2 03/28/2008 SORENSEN DO, ALESSANDRA K 272.4 Hyperlipidemia Hyperlipoproteinemias (old Classification) 03/28/2008 SORENSEN DO, ALESSANDRA K 250.00 DIABETES MELLITUS TYPE 2 03/28/2008 SORENSEN DO, ALESSANDRA K 272.4 Hyperlipidemia Hyperlipoproteinemias (old Classification) 03/28/2008 ROBBIE DDSKAHLIL 250.00 DIABETES MELLITUS TYPE 2 03/28/2008 ROBBIE DDSKAHLIL 272.4 Hyperlipidemia Hyperlipoproteinemias ( old Classification) 03/28/2008 WHITE DDS, FRANKI J 250.00 DIABETES MELLITUS TYPE 2 03/28/2008 WHITE DDS, FRANKI J 272.4 Hyperlipidemia Hyperlipoproteinemias (old Classification) 03/28/2008 SORENSEN DO, ALESSANDRA K 250.00 DIABETES MELLITUS TYPE 2 03/28/2008 SORENSEN DO, ALESSANDRA K 272.4 Hyperlipidemia Hyperlipoproteinemias (old Classification) 03/28/2008 SORENSEN DO, ALESSANDRA K 250.00 DIABETES MELLITUS TYPE 2 03/28/2008 SORENSEN DO, ALESSANDRA K 272.4 Hyperlipidemia Hyperlipoproteinemias (old Classification) 03/28/2008 SORENSEN DO, ALESSANDRA K 250.00 DIABETES MELLITUS TYPE 2 03/28/2008 SORENSEN DO, ALESSANDRA K 272.4 Hyperlipidemia Hyperlipoproteinemias (old Classification) 03/28/2008 SORENSEN DO, ALESSANDRA K 250.00 DIABETES MELLITUS TYPE 2 03/28/2008 SORENSEN DO, ALESSANDRA K 272.4 Hyperlipidemia Hyperlipoproteinemias (old Classification) 03/28/2008 SORENSEN DO, ALESSANDRA K 250.00 DIABETES MELLITUS TYPE 2 03/28/2008 SORENSEN DO, ALESSANDRA K 272.4 Hyperlipidemia Hyperlipoproteinemias (old Classification) 03/28/2008 SHERINE MEDLEY MD 250.00 DIABETES MELLITUS TYPE 2 03/28/2008 SHERINE MEDLEY MD 272.4 Hyperlipidemia Hyperlipoproteinemias (old Classification) 03/28/2008 SHEBA GRAHAM DDS 250.00 DIABETES MELLITUS TYPE 2 03/28/2008 SHEBA GRAHAM DDS 272.4 HYPERLIPIDEMIA HYPERLIPOPROTEINEMIAS (OLD CLASSIFICATION) 03/28/2008 LIZ ELI PRABHA S 250.00 DIABETES MELLITUS TYPE 2 03/28/2008 LIZ ELI, PRABHA S 272.4 HYPERLIPIDEMIA HYPERLIPOPROTEINEMIAS ( OLD CLASSIFICATION) 05/18/2008 KATALINA NAVARRO DDS 465.9 UPPER RESPIRATORY INFECTION 05/18/2008 465.9 UPPER RESPIRATORY INFECTION 05/18/2008 465.9 UPPER RESPIRATORY INFECTION 05/18/2008 ANTWAN GA MD 465.9 UPPER RESPIRATORY INFECTION 05/18/2008 PRABHA HILL APRN S 465.9 UPPER RESPIRATORY INFECTION 05/18/2008 465.9 UPPER RESPIRATORY INFECTION 05/18/2008 465.9 UPPER RESPIRATORY INFECTION 05/18/2008 465.9 UPPER RESPIRATORY INFECTION 05/18/2008 465.9 UPPER RESPIRATORY INFECTION 05/18/2008 465.9 UPPER RESPIRATORY INFECTION 05/18/2008 SORENSEN DO, ALESSANDRA K 465.9 UPPER RESPIRATORY INFECTION 05/18/2008 SORENSEN DO, ALESSANDRA K 465.9 UPPER RESPIRATORY INFECTION 05/18/2008 SORENSEN DO, ALESSANDRA K 465.9 UPPER RESPIRATORY INFECTION 05/18/2008 SORENSEN DO, ALESSANDRA K 465.9 UPPER RESPIRATORY INFECTION 05/18/2008 KALHIL AVALOS DDS 465.9 UPPER RESPIRATORY INFECTION 05/18/2008 AMRIK DDS, FRANKI Lu 465.9 UPPER RESPIRATORY INFECTION 05/18/2008 SORENSEN DO, ALESSANDRA K 465.9 UPPER RESPIRATORY INFECTION 05/18/2008 SORENSEN DO, ALESSANDRA K 465.9 UPPER RESPIRATORY INFECTION 05/18/2008 SORENSEN DO, ALESSANDRA K 465.9 UPPER RESPIRATORY INFECTION 05/18/2008 SORENSEN DO, ALESSANDRA K 465.9 UPPER RESPIRATORY INFECTION 05/18/2008 SORENSEN DO, ALESSANDRA K 465.9 UPPER RESPIRATORY INFECTION 05/18/2008 GALNIDO BOB, SHERINE Lou 465.9 UPPER RESPIRATORY INFECTION 05/18/2008 GLADYS DDS, SHEBA 465.9 UPPER RESPIRATORY INFECTION 05/18/2008 PRABHA HILL APRN 465.9 UPPER RESPIRATORY INFECTION 06/27/2008 RAMON DDS, KATALINA F 401.1 Essential Hypertension Benign 06/27/2008 RAMON DDS, KATALINA F 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 06/27/2008 401.1 Essential Hypertension Benign 06/27/2008 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 06/27/2008 401.1 Essential Hypertension Benign 06/27/2008 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 06/27/2008 ANTWAN GA MD 401.1 Essential Hypertension Benign 06/27/2008 ANTWAN GA MD 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 06/27/2008 PRABHA HILL APRN S 401.1 Essential Hypertension Benign 06/27/2008 PRABHA HILL APRN 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 06/27/2008 401.1 Essential Hypertension Benign 06/27/2008 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 06/27/2008 401.1 Essential Hypertension Benign 06/27/2008 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 06/27/2008 401.1 Essential Hypertension Benign 06/27/2008 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 06/27/2008 401.1 Essential Hypertension Benign 06/27/2008 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 06/27/2008 401.1 Essential Hypertension Benign 06/27/2008 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 06/27/2008 SORENSEN DO, ALESSANDRA K 401.1 Essential Hypertension Benign 06/27/2008 SORENSEN DO, ALESSANDRA K 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 06/27/2008 SORENSEN DO, ALESSANDRA K 401.1 Essential Hypertension Benign 06/27/2008 SORENSEN DO, ALESSANDRA K 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 06/27/2008 SORENSEN DO, ALESSANDRA K 401.1 Essential Hypertension Benign 06/27/2008 SORENSEN DO, ALESSANDRA K 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 06/27/2008 SORENSEN DO, ALESSANDRA K 401.1 Essential Hypertension Benign 06/27/2008 SORENSEN DO, ALESSANDRA K 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 06/27/2008 ROBBIE GODFREYSKAHLIL 401.1 Essential Hypertension Benign 06/27/2008 ROBBIE GODFREYSKAHLIL 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 06/27/2008 AMRIK DDSFRANKI 401.1 Essential Hypertension Benign 06/27/2008 AMRIK GODFREYSFRANKI 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 06/27/2008 SORENSEN DO, ALESSANDRA K 401.1 Essential Hypertension Benign 06/27/2008 SORENSEN DO, ALESSANDRA K 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 06/27/2008 SORENSEN DO, ALESSANDRA K 401.1 Essential Hypertension Benign 06/27/2008 SORENSEN DO, ALESSANDRA K 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 06/27/2008 SORENSEN DO, ALESSANDRA K 401.1 Essential Hypertension Benign 06/27/2008 SORENSEN DO, LAESSANDRA K 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 06/27/2008 SORENSEN DO, ALESSANDRA K 401.1 Essential Hypertension Benign 06/27/2008 SORENSEN DO, ALESSANDRA K 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 06/27/2008 SORENSEN DO, ALESSANDRA K 401.1 Essential Hypertension Benign 06/27/2008 SORENSEN DO, ALESSANDRA K 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 06/27/2008 GALINDO BOB, SHERINE Lou 401.1 Essential Hypertension Benign 06/27/2008 SHERINE MEDLEY MD 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 06/27/2008 GLADYS GODFREYS, SHEBA 401.1 ESSENTIAL HYPERTENSION BENIGN 06/27/2008 GLADYS DDS, SHEBA 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 06/27/2008 PRABHA HILL APRN 401.1 ESSENTIAL HYPERTENSION BENIGN 06/27/2008 PRABHA HILL APRN 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 11/09/2008 RAMON DDS, KATALINA Espino 703.9 NAIL DISEASE UNSPEC 11/09/2008 703.9 NAIL DISEASE UNSPEC 11/09/2008 703.9 NAIL DISEASE UNSPEC 11/09/2008 SURY BOB, ANTWAN Bond 703.9 NAIL DISEASE UNSPEC 11/09/2008 PRABHA HILL APRN 703.9 NAIL DISEASE UNSPEC 11/09/2008 703.9 NAIL DISEASE UNSPEC 11/09/2008 703.9 NAIL DISEASE UNSPEC 11/09/2008 703.9 NAIL DISEASE UNSPEC 11/09/2008 703.9 NAIL DISEASE UNSPEC 11/09/2008 703.9 NAIL DISEASE UNSPEC 11/09/2008 SORENSEN DO, ALESSANDRA K 703.9 NAIL DISEASE UNSPEC 11/09/2008 SORENSEN DO, ALESSANDRA K 703.9 NAIL DISEASE UNSPEC 11/09/2008 SORENSEN DO, ALESSANDRA K 703.9 NAIL DISEASE UNSPEC 11/09/2008 SORENSEN DO, ALESSANDRA K 703.9 NAIL DISEASE UNSPEC 11/09/2008 ROBBIE GODFREYS, KAHLIL Bond 703.9 NAIL DISEASE UNSPEC 11/09/2008 AMRIK GODFREYS, FRAKNI Lu 703.9 NAIL DISEASE UNSPEC 11/09/2008 SORENSEN DO, ALESSANDRA K 703.9 NAIL DISEASE UNSPEC 11/09/2008 SORENSEN DO, ALESSANDRA K 703.9 NAIL DISEASE UNSPEC 11/09/2008 SORENSEN DO, ALESSANDRA K 703.9 NAIL DISEASE UNSPEC 11/09/2008 SORENSEN DO, ALESSANDRA K 703.9 NAIL DISEASE UNSPEC 11/09/2008 SORENSEN DO, ALESSANDRA K 703.9 NAIL DISEASE UNSPEC 11/09/2008 GALINDO BOB, SHERINE Lou 703.9 NAIL DISEASE UNSPEC 11/09/2008 GLADYS GODFREYS, SHEBA 703.9 NAIL DISEASE UNSPEC 11/09/2008 PRABHA HILL APRN 703.9 NAIL DISEASE UNSPEC 02/02/2009 RAMON DDS, KATALINA F 716.90 ARTHROPATHY 02/02/2009 716.90 ARTHROPATHY 02/02/2009 716.90 ARTHROPATHY 02/02/2009 SURY BOB, ANTWAN Bond 716.90 ARTHROPATHY 02/02/2009 PRABHA HILL APRN S 716.90 ARTHROPATHY 02/02/2009 716.90 ARTHROPATHY 02/02/2009 716.90 ARTHROPATHY 02/02/2009 716.90 ARTHROPATHY 02/02/2009 716.90 ARTHROPATHY 02/02/2009 716.90 ARTHROPATHY 02/02/2009 SORENSEN DO, ALESSANDRA K 716.90 ARTHROPATHY 02/02/2009 SORENSEN DO, ALESSANDRA K 716.90 ARTHROPATHY 02/02/2009 SORENSEN DO, ALESSANDRA K 716.90 ARTHROPATHY 02/02/2009 SORENSEN DO, ALESSANDRA K 716.90 ARTHROPATHY 02/02/2009 ROBBIE DDS, KAHLIL Bond 716.90 ARTHROPATHY 02/02/2009 AMRIK DDS, FRANKI Lu 716.90 ARTHROPATHY 02/02/2009 SORENSEN DO, ALESSANDRA K 716.90 ARTHROPATHY 02/02/2009 SORENSEN DO, ALESSANDRA K 716.90 ARTHROPATHY 02/02/2009 SORENSEN DO, ALESSANDRA K 716.90 ARTHROPATHY 02/02/2009 SORENSEN DO, ALESSANDRA K 716.90 ARTHROPATHY 02/02/2009 SORENSEN DO, ALESSANDRA K 716.90 ARTHROPATHY 02/02/2009 GALINDO BOB, SHERINE Lou 716.90 ARTHROPATHY 02/02/2009 GLADYS GODFREYS, SHEBA 716.90 ARTHROPATHY 02/02/2009 PRABHA HILL APRN S 716.90 ARTHROPATHY 06/25/2009 RAMON DDS, KATALINA F V58.69 taking high-risk medication 06/25/2009 V58.69 taking high-risk medication 06/25/2009 V58.69 taking high-risk medication 06/25/2009 SURY BOB, ANTWAN Bond V58.69 taking high-risk medication 06/25/2009 PRABHA HILL APRN V58.69 taking high-risk medication 06/25/2009 V58.69 taking high-risk medication 06/25/2009 V58.69 taking high-risk medication 06/25/2009 V58.69 taking high-risk medication 06/25/2009 V58.69 taking high-risk medication 06/25/2009 V58.69 taking high-risk medication 06/25/2009 SORENSEN DO, ALESSANDRA K V58.69 taking high-risk medication 06/25/2009 SORENSEN DO, ALESSANDRA K V58.69 taking high-risk medication 06/25/2009 SORENSEN DO, ALESSANDRA K V58.69 taking high-risk medication 06/25/2009 SORENSEN DO, ALESSANDRA K V58.69 taking high-risk medication 06/25/2009 ROBBIE DDS, KAHLIL Bond V58.69 taking high-risk medication 06/25/2009 AMRIK DDS, FRANKI Lu V58.69 taking high-risk medication 06/25/2009 SORENSEN DO, ALESSANDRA K V58.69 taking high-risk medication 06/25/2009 SORENSEN DO, ALESSANDRA K V58.69 taking high-risk medication 06/25/2009 SORENSEN DO, ALESSANDRA K V58.69 taking high-risk medication 06/25/2009 SORENSEN DO, ALESSANDRA K V58.69 taking high-risk medication 06/25/2009 SORENSEN DO, ALESSANDRA K V58.69 taking high-risk medication 06/25/2009 GALINDO BOB, SHERINE Lou V58.69 taking high-risk medication 06/25/2009 GLADYS GODFREYSSHEBA V58.69 taking high-risk medication 06/25/2009 PRABHA HILL APRN S V58.69 taking high-risk medication 07/23/2009 RAMON DDS, KATALINA Espino V70.0 General Medical Exam, Routine, At Health Care Facility 07/23/2009 V70.0 General Medical Exam, Routine, At Health Care Facility 07/23/2009 V70.0 General Medical Exam, Routine, At Health Care Facility 07/23/2009 SURY BOB, ANTWAN Bond V70.0 General Medical Exam, Routine, At Health Care Facility 07/23/2009 PRABHA HILL APRN S V70.0 General Medical Exam, Routine, At Health Care Facility 07/23/2009 V70.0 General Medical Exam, Routine, At Health Care Facility 07/23/2009 V70.0 General Medical Exam, Routine, At Health Care Facility 07/23/2009 V70.0 General Medical Exam, Routine, At Health Care Facility 07/23/2009 V70.0 General Medical Exam, Routine, At Health Care Facility 07/23/2009 V70.0 General Medical Exam, Routine, At Health Care Facility 07/23/2009 SORENSEN DO, ALESSANDRA K V70.0 General Medical Exam, Routine, At Health Care Facility 07/23/2009 SORENSEN DO, ALESSANDRA K V70.0 General Medical Exam, Routine, At Health Care Facility 07/23/2009 SORENSEN DO, ALESSANDRA K V70.0 General Medical Exam, Routine, At Health Care Facility 07/23/2009 SORENSEN DO, ALESSANDRA K V70.0 General Medical Exam, Routine, At Health Care Facility 07/23/2009 ROBBIE DDS, KAHLIL Bond V70.0 General Medical Exam, Routine, At Health Care Facility 07/23/2009 AMRIK GODFREYS, FRANKI Lu V70.0 General Medical Exam, Routine, At Health Care Facility 07/23/2009 SORENSEN DO, ALESSANDRA K V70.0 General Medical Exam, Routine, At Health Care Facility 07/23/2009 SORENSEN DO, ALESSANDRA K V70.0 General Medical Exam, Routine, At Health Care Facility 07/23/2009 SORENSEN DO, ALESSANDRA K V70.0 General Medical Exam, Routine, At Health Care Facility 07/23/2009 SORENSEN DO, ALESSANDRA K V70.0 General Medical Exam, Routine, At Health Care Facility 07/23/2009 SORENSEN DO, ALESSANDRA K V70.0 General Medical Exam, Routine, At Health Care Facility 07/23/2009 GALINDO BOB, SHERINE Lou V70.0 General Medical Exam, Routine, At Health Care Facility 07/23/2009 SHEBA GRAHAM DDS V70.0 General Medical Exam, Routine, At Health Care Facility 07/23/2009 PRABHA HILL APRN V70.0 General Medical Exam, Routine, At Health Care Facility 08/06/2009 RAMON MEDEIROS, KATALINA Espino 788.30 urinary loss of control 08/06/2009 788.30 urinary loss of control 08/06/2009 788.30 urinary loss of control 08/06/2009 SURY BOB, ANTWAN Bond 788.30 urinary loss of control 08/06/2009 PRABHA HILL APRN 788.30 urinary loss of control 08/06/2009 788.30 urinary loss of control 08/06/2009 788.30 urinary loss of control 08/06/2009 788.30 urinary loss of control 08/06/2009 788.30 urinary loss of control 08/06/2009 788.30 urinary loss of control 08/06/2009 SORENSEN DO, ALESSANDRA K 788.30 urinary loss of control 08/06/2009 SORENSEN DO, ALESSANDRA K 788.30 urinary loss of control 08/06/2009 SORENSEN DO, ALESSANDRA K 788.30 urinary loss of control 08/06/2009 SORENSEN DO, ALESSANDRA K 788.30 urinary loss of control 08/06/2009 ROBBIE DDS, KAHLIL Bond 788.30 urinary loss of control 08/06/2009 AMRIK GODFREYS, FRANKI Lu 788.30 urinary loss of control 08/06/2009 SORENSEN DO, ALESSANDRA K 788.30 urinary loss of control 08/06/2009 SORENSEN DO, ALESSANDRA K 788.30 urinary loss of control 08/06/2009 SORENSEN DO, ALESSANDRA K 788.30 urinary loss of control 08/06/2009 SORENSEN DO, ALESSANDRA K 788.30 urinary loss of control 08/06/2009 SORENSEN DO, ALESSANDRA K 788.30 urinary loss of control 08/06/2009 GALINDO BOB, SHERINE Lou 788.30 urinary loss of control 08/06/2009 GLADYS GODFREYS, SHEBA 788.30 urinary loss of control 08/06/2009 PRABHA HILL APRN 788.30 urinary loss of control 08/13/2009 RAMON DDS, KATALINA F 682.9 CELLULITIS 08/13/2009 682.9 CELLULITIS 08/13/2009 682.9 CELLULITIS 08/13/2009 SURY BOB, ANTWAN Bond 682.9 CELLULITIS 08/13/2009 PRABHA HILL APRN 682.9 CELLULITIS 08/13/2009 682.9 CELLULITIS 08/13/2009 682.9 CELLULITIS 08/13/2009 682.9 CELLULITIS 08/13/2009 682.9 CELLULITIS 08/13/2009 682.9 CELLULITIS 08/13/2009 SORENSEN DO, ALESSANDRA K 682.9 CELLULITIS 08/13/2009 SORENSEN DO, ALESSANDRA K 682.9 CELLULITIS 08/13/2009 SORENSEN DO, ALESSANDRA K 682.9 CELLULITIS 08/13/2009 SORENSEN DO, ALESSANDRA K 682.9 CELLULITIS 08/13/2009 ROBBIE DDS, KAHLIL Bond 682.9 CELLULITIS 08/13/2009 AMRIK DDS, FRANKI Lu 682.9 CELLULITIS 08/13/2009 SORENSEN DO, ALESSANDRA K 682.9 CELLULITIS 08/13/2009 SORENSEN DO, ALESSANDRA K 682.9 CELLULITIS 08/13/2009 SORENSEN DO, ALESSANDRA K 682.9 CELLULITIS 08/13/2009 SORENSEN DO, ALESSANDRA K 682.9 CELLULITIS 08/13/2009 SORENSEN DO, ALESSANDRA K 682.9 CELLULITIS 08/13/2009 GALINDO BOB, SHERINE Lou 682.9 CELLULITIS 08/13/2009 GLADYS GODFREYSSHEBA 682.9 CELLULITIS 08/13/2009 PRABHA HILL APRN S 682.9 CELLULITIS 08/30/2009 RAMON DDS, KATALINA F 465.9 UPPER RESPIRATORY INFECTION 08/30/2009 465.9 UPPER RESPIRATORY INFECTION 08/30/2009 465.9 UPPER RESPIRATORY INFECTION 08/30/2009 SURY BOB, ANTWAN Bond 465.9 UPPER RESPIRATORY INFECTION 08/30/2009 PRABHA HILL APRN S 465.9 UPPER RESPIRATORY INFECTION 08/30/2009 465.9 UPPER RESPIRATORY INFECTION 08/30/2009 465.9 UPPER RESPIRATORY INFECTION 08/30/2009 465.9 UPPER RESPIRATORY INFECTION 08/30/2009 465.9 UPPER RESPIRATORY INFECTION 08/30/2009 465.9 UPPER RESPIRATORY INFECTION 08/30/2009 SORENSEN DO, ALESSANDRA K 465.9 UPPER RESPIRATORY INFECTION 08/30/2009 SORENSEN DO, ALESSANDRA K 465.9 UPPER RESPIRATORY INFECTION 08/30/2009 SORENSEN DO, ALESSANDRA K 465.9 UPPER RESPIRATORY INFECTION 08/30/2009 SORENSEN DO, ALESSANDRA K 465.9 UPPER RESPIRATORY INFECTION 08/30/2009 ROBBIE DDS, KAHLIL Bond 465.9 UPPER RESPIRATORY INFECTION 08/30/2009 AMRIK DDS, FRANKI Lu 465.9 UPPER RESPIRATORY INFECTION 08/30/2009 SORENSEN DO, ALESSANDRA K 465.9 UPPER RESPIRATORY INFECTION 08/30/2009 SORENSEN DO, ALESSANDRA K 465.9 UPPER RESPIRATORY INFECTION 08/30/2009 SORENSEN DO, ALESSANDRA K 465.9 UPPER RESPIRATORY INFECTION 08/30/2009 SORENSEN DO, ALESSANDRA K 465.9 UPPER RESPIRATORY INFECTION 08/30/2009 SORENSEN DO, ALESSANDRA K 465.9 UPPER RESPIRATORY INFECTION 08/30/2009 GALINDO BOB, SHERINE Lou 465.9 UPPER RESPIRATORY INFECTION 08/30/2009 GLADYS DDS, SHEBA 465.9 UPPER RESPIRATORY INFECTION 08/30/2009 PILI HILL APRNNDA S 465.9 UPPER RESPIRATORY INFECTION 10/24/2009 RAMON DDS, KATALINA F 465.9 Upper Respiratory Infection 10/24/2009 465.9 Upper Respiratory Infection 10/24/2009 465.9 Upper Respiratory Infection 10/24/2009 SURY BOB, ANTWAN Bond 465.9 Upper Respiratory Infection 10/24/2009 KELLY HILL APRNA S 465.9 Upper Respiratory Infection 10/24/2009 465.9 Upper Respiratory Infection 10/24/2009 465.9 Upper Respiratory Infection 10/24/2009 465.9 Upper Respiratory Infection 10/24/2009 465.9 Upper Respiratory Infection 10/24/2009 465.9 Upper Respiratory Infection 10/24/2009 SORENSEN DO, ALESSANDRA K 465.9 Upper Respiratory Infection 10/24/2009 SORENSEN DO, ALESSANDRA K 465.9 Upper Respiratory Infection 10/24/2009 SORENSEN DO, ALESSANDRA K 465.9 Upper Respiratory Infection 10/24/2009 SORENSEN DO, ALESSANDRA K 465.9 Upper Respiratory Infection 10/24/2009 ROBBIE DDS, KAHLIL M 465.9 Upper Respiratory Infection 10/24/2009 AMRIK DDS, FRANKI J 465.9 Upper Respiratory Infection 10/24/2009 SORENSEN DO, ALESSANDRA K 465.9 Upper Respiratory Infection 10/24/2009 SORENSEN DO, ALESSANDRA K 465.9 Upper Respiratory Infection 10/24/2009 SORENSEN DO, ALESSANDRA K 465.9 Upper Respiratory Infection 10/24/2009 SORENSEN DO, ALESSANDRA K 465.9 Upper Respiratory Infection 10/24/2009 SORENSEN DO, ALESSANDRA K 465.9 Upper Respiratory Infection 10/24/2009 SHERINE MEDLEY MD 465.9 Upper Respiratory Infection 10/24/2009 GLADYS DDS, SHEBA 465.9 Upper Respiratory Infection 10/24/2009 LIZ ELI PRABHA S 465.9 Upper Respiratory Infection 11/29/2009 RAMON DDS, KATALINA F 695.10 Erythema Multiforme, Unspecified 11/29/2009 695.10 Erythema Multiforme, Unspecified 11/29/2009 695.10 Erythema Multiforme, Unspecified 11/29/2009 SURY BOB, ANTWAN Bond 695.10 Erythema Multiforme, Unspecified 11/29/2009 PRABHA HILL APRN S 695.10 Erythema Multiforme, Unspecified 11/29/2009 695.10 Erythema Multiforme, Unspecified 11/29/2009 695.10 Erythema Multiforme, Unspecified 11/29/2009 695.10 Erythema Multiforme, Unspecified 11/29/2009 695.10 Erythema Multiforme, Unspecified 11/29/2009 695.10 Erythema Multiforme, Unspecified 11/29/2009 SORENSEN DO, ALESSANDRA K 695.10 Erythema Multiforme, Unspecified 11/29/2009 SORENSEN DO, ALESSANDRA K 695.10 Erythema Multiforme, Unspecified 11/29/2009 SORENSEN DO, ALESSANDRA K 695.10 Erythema Multiforme, Unspecified 11/29/2009 SORENSEN DO, ALESSANDRA K 695.10 Erythema Multiforme, Unspecified 11/29/2009 ROBBIE DDS, KAHLIL Bond 695.10 Erythema Multiforme, Unspecified 11/29/2009 AMRIK DDS, FRANKI Lu 695.10 Erythema Multiforme, Unspecified 11/29/2009 SORENSEN DO, ALESSANDRA K 695.10 Erythema Multiforme, Unspecified 11/29/2009 SORENSEN DO, ALESSANDRA K 695.10 Erythema Multiforme, Unspecified 11/29/2009 SORENSEN DO, ALESSANDRA K 695.10 Erythema Multiforme, Unspecified 11/29/2009 SORENSEN DO, ALESSANDRA K 695.10 Erythema Multiforme, Unspecified 11/29/2009 SORENSEN DO, ALESSANDRA K 695.10 Erythema Multiforme, Unspecified 11/29/2009 GALINDO BOB, SHERINE Lou 695.10 Erythema Multiforme, Unspecified 11/29/2009 GLADYS GODFREYS, SHEBA 695.10 Erythema Multiforme, Unspecified 11/29/2009 PRABHA HILL APRN S 695.10 Erythema Multiforme, Unspecified 12/18/2009 RAMON DDS, KATALINA Espino 466.0 Acute Bronchitis 12/18/2009 466.0 Acute Bronchitis 12/18/2009 466.0 Acute Bronchitis 12/18/2009 SURY BOB, ANTWAN Bond 466.0 Acute Bronchitis 12/18/2009 PRABHA HILL APRN 466.0 Acute Bronchitis 12/18/2009 466.0 Acute Bronchitis 12/18/2009 466.0 Acute Bronchitis 12/18/2009 466.0 Acute Bronchitis 12/18/2009 466.0 Acute Bronchitis 12/18/2009 466.0 Acute Bronchitis 12/18/2009 SORENSEN DO, ALESSANDRA K 466.0 Acute Bronchitis 12/18/2009 SORENSEN DO, ALESSANDRA K 466.0 Acute Bronchitis 12/18/2009 SORENSEN DO, ALESSANDRA K 466.0 Acute Bronchitis 12/18/2009 SORENSEN DO, ALESSANDRA K 466.0 Acute Bronchitis 12/18/2009 ROBBIE GODFREYS, KAHLIL Bond 466.0 Acute Bronchitis 12/18/2009 AMRIK GODFREYS, FRANKI Lu 466.0 Acute Bronchitis 12/18/2009 SORENSEN DO, ALESSANDRA K 466.0 Acute Bronchitis 12/18/2009 SORENSEN DO, ALESSANDRA K 466.0 Acute Bronchitis 12/18/2009 SORENSEN DO, ALESSANDRA K 466.0 Acute Bronchitis 12/18/2009 SORENSEN DO, ALESSANDRA K 466.0 Acute Bronchitis 12/18/2009 SORENSEN DO, ALESSANDRA K 466.0 Acute Bronchitis 12/18/2009 GALINDO BOB, SHERINE Lou 466.0 Acute Bronchitis 12/18/2009 GLADYS GODFREYS, SHEBA 466.0 Acute Bronchitis 12/18/2009 PRABHA HILL APRN 466.0 Acute Bronchitis 07/05/2010 Ot 250.00 07/05/2010 Ot 272.4 07/05/2010 Ot 401.9 07/05/2010 Ot 414.00 07/05/2010 Ot 558.9 07/05/2010 Ot 593.9 07/05/2010 Ot 789.09 07/05/2010 Ot V12.51 07/05/2010 Ot V12.54 07/05/2010 Ot V45.81 07/05/2010 Ot V58.66 07/05/2010 Ot V58.67 07/05/2010 Ot V58.69 07/10/2010 RAMON DDS, KATALINA F 585.9 RENAL INSUFFICIENCY CHRONIC 07/10/2010 585.9 RENAL INSUFFICIENCY CHRONIC 07/10/2010 585.9 RENAL INSUFFICIENCY CHRONIC 07/10/2010 SURY BOB, ANTWAN Bond 585.9 RENAL INSUFFICIENCY CHRONIC 07/10/2010 PRABHA HILL APRN S 585.9 RENAL INSUFFICIENCY CHRONIC 07/10/2010 585.9 RENAL INSUFFICIENCY CHRONIC 07/10/2010 585.9 RENAL INSUFFICIENCY CHRONIC 07/10/2010 585.9 RENAL INSUFFICIENCY CHRONIC 07/10/2010 585.9 RENAL INSUFFICIENCY CHRONIC 07/10/2010 585.9 RENAL INSUFFICIENCY CHRONIC 07/10/2010 SORENSEN DO, ALESSANDRA K 585.9 RENAL INSUFFICIENCY CHRONIC 07/10/2010 SORENSEN DO, ALESSANDRA K 585.9 RENAL INSUFFICIENCY CHRONIC 07/10/2010 SORENSEN DO, ALESSANDRA K 585.9 RENAL INSUFFICIENCY CHRONIC 07/10/2010 SORENSEN DO, ALESSANDRA K 585.9 RENAL INSUFFICIENCY CHRONIC 07/10/2010 ROBBIE DDS, KAHLIL Bond 585.9 RENAL INSUFFICIENCY CHRONIC 07/10/2010 AMRIK DDS, FRANKI Lu 585.9 RENAL INSUFFICIENCY CHRONIC 07/10/2010 SORENSEN DO, ALESSANDRA K 585.9 RENAL INSUFFICIENCY CHRONIC 07/10/2010 SORENSEN DO, ALESSANDRA K 585.9 RENAL INSUFFICIENCY CHRONIC 07/10/2010 SORENSEN DO, ALESSANDRA K 585.9 RENAL INSUFFICIENCY CHRONIC 07/10/2010 SORENSEN DO, ALESSANDRA K 585.9 RENAL INSUFFICIENCY CHRONIC 07/10/2010 SORENSEN DO, ALESSANDRA K 585.9 RENAL INSUFFICIENCY CHRONIC 07/10/2010 GALINDO BOB, SHERINE Lou 585.9 RENAL INSUFFICIENCY CHRONIC 07/10/2010 GLADYS GODFREYS, SHEBA 585.9 RENAL INSUFFICIENCY CHRONIC 07/10/2010 PRABHA HILL APRN S 585.9 RENAL INSUFFICIENCY CHRONIC 08/23/2010 RAMON DDS, KATALINA F 466.0 Acute Bronchitis 08/23/2010 466.0 Acute Bronchitis 08/23/2010 466.0 Acute Bronchitis 08/23/2010 ANTWAN GA MD 466.0 Acute Bronchitis 08/23/2010 PRABHA HILL APRN S 466.0 Acute Bronchitis 08/23/2010 466.0 Acute Bronchitis 08/23/2010 466.0 Acute Bronchitis 08/23/2010 466.0 Acute Bronchitis 08/23/2010 466.0 Acute Bronchitis 08/23/2010 466.0 Acute Bronchitis 08/23/2010 SORENSEN DO, ALESSANDRA K 466.0 Acute Bronchitis 08/23/2010 SORENSEN DO, ALESSANDRA K 466.0 Acute Bronchitis 08/23/2010 SORENSEN DO, ALESSANDRA K 466.0 Acute Bronchitis 08/23/2010 SORENSEN DO, ALESSANDRA K 466.0 Acute Bronchitis 08/23/2010 ROBBIE GODFREYS, KAHLIL Bond 466.0 Acute Bronchitis 08/23/2010 AMRIK GODFREYS, FRANKI Lu 466.0 Acute Bronchitis 08/23/2010 SORENSEN DO, ALESSANDRA K 466.0 Acute Bronchitis 08/23/2010 SORENSEN DO, ALESSANDRA K 466.0 Acute Bronchitis 08/23/2010 SORENSEN DO, ALESSANDRA K 466.0 Acute Bronchitis 08/23/2010 SORENSEN DO, ALESSANDRA K 466.0 Acute Bronchitis 08/23/2010 SORENSEN DO, ALESSANDRA K 466.0 Acute Bronchitis 08/23/2010 GALINDO BOB, SHERINE Lou 466.0 Acute Bronchitis 08/23/2010 GLADYS MEDEIROS, SHEBA 466.0 Acute Bronchitis 08/23/2010 PRABHA HILL APRN S 466.0 Acute Bronchitis 09/04/2010 Ot 272.4 09/04/2010 Ot V58.61 09/04/2010 Ot V58.81 11/20/2010 Ot 558.9 11/20/2010 Ot 599.0 11/20/2010 Ot 787.01 02/03/2011 RAMON GODFREYS, KATALINA Espino 274.9 GOUT 02/03/2011 274.9 GOUT 02/03/2011 274.9 GOUT 02/03/2011 SURY BOB, ANTWAN Bond 274.9 GOUT 02/03/2011 PRABHA HILL APRN S 274.9 GOUT 02/03/2011 274.9 GOUT 02/03/2011 274.9 GOUT 02/03/2011 274.9 GOUT 02/03/2011 274.9 GOUT 02/03/2011 274.9 GOUT 02/03/2011 SORENSEN DO, ALESSANDRA K 274.9 GOUT 02/03/2011 SORESNEN DO, ALESSANDRA K 274.9 GOUT 02/03/2011 SORENSEN DO, ALESSANDRA K 274.9 GOUT 02/03/2011 SORENSEN DO, ALESSANDRA K 274.9 GOUT 02/03/2011 ROBBIE GODFREYS, KAHLIL Bond 274.9 GOUT 02/03/2011 WHITE DDS, FRANKI J 274.9 GOUT 02/03/2011 SORENSEN DO, ALESSANDRA K 274.9 GOUT 02/03/2011 SORENSEN DO, ALESSANDRA K 274.9 GOUT 02/03/2011 SORENSEN DO, ALESSANDRA K 274.9 GOUT 02/03/2011 SORENSEN DO, ALESSANDRA K 274.9 GOUT 02/03/2011 SORENSEN DO, ALESSANDRA K 274.9 GOUT 02/03/2011 SHERINE MEDLEY MD 274.9 GOUT 02/03/2011 GLADYS GODFREYSSHEBA 274.9 GOUT 02/03/2011 PRABHA HILL APRN S 274.9 GOUT 04/28/2011 RAMON GODFREYS, KATALINA Espino 401.9 HYPERTENSION (SYSTEMIC) 04/28/2011 401.9 HYPERTENSION (SYSTEMIC) 04/28/2011 401.9 HYPERTENSION (SYSTEMIC) 04/28/2011 SURY BOB, ANTWAN Bond 401.9 HYPERTENSION (SYSTEMIC) 04/28/2011 PRABHA HILL APRN S 401.9 HYPERTENSION (SYSTEMIC) 04/28/2011 401.9 HYPERTENSION (SYSTEMIC) 04/28/2011 401.9 HYPERTENSION (SYSTEMIC) 04/28/2011 401.9 HYPERTENSION (SYSTEMIC) 04/28/2011 401.9 HYPERTENSION (SYSTEMIC) 04/28/2011 401.9 HYPERTENSION (SYSTEMIC) 04/28/2011 SORENSEN DO, ALESSANDRA K 401.9 HYPERTENSION (SYSTEMIC) 04/28/2011 SORENSEN DO, ALESSANDRA K 401.9 HYPERTENSION (SYSTEMIC) 04/28/2011 SORENSEN DO, ALESSANDRA K 401.9 HYPERTENSION (SYSTEMIC) 04/28/2011 SORENSEN DO, ALESSANDRA K 401.9 HYPERTENSION (SYSTEMIC) 04/28/2011 ROBBIE DDS, KAHLIL Bond 401.9 HYPERTENSION (SYSTEMIC) 04/28/2011 AMRIK DDS, FRANKI J 401.9 HYPERTENSION (SYSTEMIC) 04/28/2011 SORENSEN DO, ALESSANDRA K 401.9 HYPERTENSION (SYSTEMIC) 04/28/2011 SORENSEN DO, ALESSANDRA K 401.9 HYPERTENSION (SYSTEMIC) 04/28/2011 SORENSEN DO, ALESSANDRA K 401.9 HYPERTENSION (SYSTEMIC) 04/28/2011 SORENSEN DO, ALESSANDRA K 401.9 HYPERTENSION (SYSTEMIC) 04/28/2011 SORENSEN DO, ALESSANDRA K 401.9 HYPERTENSION (SYSTEMIC) 04/28/2011 GALINDO BOB, SHERINE Lou 401.9 HYPERTENSION (SYSTEMIC) 04/28/2011 GLADYS GODFREYS, SHEBA 401.9 HYPERTENSION (SYSTEMIC) 04/28/2011 PRABHA HILL APRN S 401.9 HYPERTENSION (SYSTEMIC) 05/16/2011 RAMON DDS, KATALINA F 110.1 ONYCHOMYCOSIS 05/16/2011 RAMON DDS, KATALINA F 356.9 NEUROPATHY 05/16/2011 RAMON DDS, KATALINA F 701.1 Hyperkeratosis 05/16/2011 110.1 ONYCHOMYCOSIS 05/16/2011 356.9 NEUROPATHY 05/16/2011 701.1 Hyperkeratosis 05/16/2011 110.1 ONYCHOMYCOSIS 05/16/2011 356.9 NEUROPATHY 05/16/2011 701.1 Hyperkeratosis 05/16/2011 SURY BOB, ANTWAN Bond 110.1 ONYCHOMYCOSIS 05/16/2011 SURY BOB, ANTWAN Bond 356.9 NEUROPATHY 05/16/2011 SURY BOB, ANTWAN Bond 701.1 Hyperkeratosis 05/16/2011 KELLY HILL APRNA S 110.1 ONYCHOMYCOSIS 05/16/2011 KELLY HILL APRNA S 356.9 NEUROPATHY 05/16/2011 KELLY HILL APRNA S 701.1 Hyperkeratosis 05/16/2011 110.1 ONYCHOMYCOSIS 05/16/2011 356.9 NEUROPATHY 05/16/2011 701.1 Hyperkeratosis 05/16/2011 110.1 ONYCHOMYCOSIS 05/16/2011 356.9 NEUROPATHY 05/16/2011 701.1 Hyperkeratosis 05/16/2011 110.1 ONYCHOMYCOSIS 05/16/2011 356.9 NEUROPATHY 05/16/2011 701.1 Hyperkeratosis 05/16/2011 110.1 ONYCHOMYCOSIS 05/16/2011 356.9 NEUROPATHY 05/16/2011 701.1 Hyperkeratosis 05/16/2011 110.1 ONYCHOMYCOSIS 05/16/2011 356.9 NEUROPATHY 05/16/2011 701.1 Hyperkeratosis 05/16/2011 ALESSANDRA SORENSEN DO 110.1 ONYCHOMYCOSIS 05/16/2011 SORENSEN DO, ALESSANDRA K 356.9 NEUROPATHY 05/16/2011 SORENSEN DO, ALESSANDRA K 701.1 Hyperkeratosis 05/16/2011 SORENSEN DO, ALESSANDRA K 110.1 ONYCHOMYCOSIS 05/16/2011 SORENSEN DO, ALESSANDRA K 356.9 NEUROPATHY 05/16/2011 SORENSEN DO, ALESSANDRA K 701.1 Hyperkeratosis 05/16/2011 SORENSEN DO, ALESSANDRA K 110.1 ONYCHOMYCOSIS 05/16/2011 SORENSEN DO, ALESSANDRA K 356.9 NEUROPATHY 05/16/2011 SORENSEN DO, ALESSANDRA K 701.1 Hyperkeratosis 05/16/2011 SORENSEN DO, ALESSANDRA K 110.1 ONYCHOMYCOSIS 05/16/2011 SORENSEN DO, ALESSANDRA K 356.9 NEUROPATHY 05/16/2011 SORENSEN DO, ALESSANDRA K 701.1 Hyperkeratosis 05/16/2011 ROBBIE DDS, KAHLIL M 110.1 ONYCHOMYCOSIS 05/16/2011 ROBBIE DDS, KAHLIL M 356.9 NEUROPATHY 05/16/2011 ROBBIE DDS, KAHLIL M 701.1 Hyperkeratosis 05/16/2011 WHITE DDS, FRANKI J 110.1 ONYCHOMYCOSIS 05/16/2011 WHITE DDS, FRANKI J 356.9 NEUROPATHY 05/16/2011 WHITE DDS, FRANKI J 701.1 Hyperkeratosis 05/16/2011 SORENSEN DO, ALESSANDRA K 110.1 ONYCHOMYCOSIS 05/16/2011 SORENSEN DO, ALESSANDRA K 356.9 NEUROPATHY 05/16/2011 SORENSEN DO, ALESSANDRA K 701.1 Hyperkeratosis 05/16/2011 SORENSEN DO, ALESSANDRA K 110.1 ONYCHOMYCOSIS 05/16/2011 SORENSEN DO, ALESSANDRA K 356.9 NEUROPATHY 05/16/2011 SORENSEN DO, ALESSANDRA K 701.1 Hyperkeratosis 05/16/2011 SORENSEN DO, ALESSANDRA K 110.1 ONYCHOMYCOSIS 05/16/2011 SORENSEN DO, ALESSANDRA K 356.9 NEUROPATHY 05/16/2011 SORENSEN DO, ALESSANDRA K 701.1 Hyperkeratosis 05/16/2011 SORENSEN DO, ALESSANDRA K 110.1 ONYCHOMYCOSIS 05/16/2011 SORENSEN DO, ALESSANDRA K 356.9 NEUROPATHY 05/16/2011 SORENSEN DO, ALESSANDRA K 701.1 Hyperkeratosis 05/16/2011 SORENSEN DO, ALESSANDRA K 110.1 ONYCHOMYCOSIS 05/16/2011 SORENSEN DO, ALESSANDRA K 356.9 NEUROPATHY 05/16/2011 SORENSEN DO, ALESSANDRA K 701.1 Hyperkeratosis 05/16/2011 GALINDO BOB, SHERINE N 110.1 ONYCHOMYCOSIS 05/16/2011 GALINDO BOB, SHERINE N 356.9 NEUROPATHY 05/16/2011 GALINDO BOB, SHERINE N 701.1 Hyperkeratosis 05/16/2011 GRAHAM DDS, SHEBA 110.1 ONYCHOMYCOSIS 05/16/2011 GRAHAM DDS, SHEBA 356.9 NEUROPATHY 05/16/2011 GRAHAM DDS, SHEBA 701.1 Hyperkeratosis 05/16/2011 PILI HILL APRNNDA S 110.1 ONYCHOMYCOSIS 05/16/2011 PILI HILL APRNNDA S 356.9 NEUROPATHY 05/16/2011 LIZ ELI PRABHA S 701.1 Hyperkeratosis 08/06/2011 RAMON DDS, KATALINA Espino 465.9 Upper Respiratory Infection 08/06/2011 465.9 Upper Respiratory Infection 08/06/2011 465.9 Upper Respiratory Infection 08/06/2011 SURY BOB, ANTWAN Bond 465.9 Upper Respiratory Infection 08/06/2011 PRABHA HILL APRN S 465.9 Upper Respiratory Infection 08/06/2011 465.9 Upper Respiratory Infection 08/06/2011 465.9 Upper Respiratory Infection 08/06/2011 465.9 Upper Respiratory Infection 08/06/2011 465.9 Upper Respiratory Infection 08/06/2011 465.9 Upper Respiratory Infection 08/06/2011 SORENSEN DO, ALESSANDRA K 465.9 Upper Respiratory Infection 08/06/2011 SORENSEN DO, ALESSANDRA K 465.9 Upper Respiratory Infection 08/06/2011 SOERNSEN DO, ALESSANDRA K 465.9 Upper Respiratory Infection 08/06/2011 SORENSEN DO, ALESSANDRA K 465.9 Upper Respiratory Infection 08/06/2011 ROBBIE GODFREYS, KAHLIL Bond 465.9 Upper Respiratory Infection 08/06/2011 AMRIK GODFREYS, FRANKI Lu 465.9 Upper Respiratory Infection 08/06/2011 SORENSEN DO, ALESSANDRA K 465.9 Upper Respiratory Infection 08/06/2011 SORENSEN DO, ALESSANDRA K 465.9 Upper Respiratory Infection 08/06/2011 SORENSEN DO, ALESSANDRA K 465.9 Upper Respiratory Infection 08/06/2011 SORENSEN , ALESSANDRA K 465.9 Upper Respiratory Infection 08/06/2011 ALESSANDRA SORENSEN DO K 465.9 Upper Respiratory Infection 08/06/2011 GALINDO BOB, SHERINE Lou 465.9 Upper Respiratory Infection 08/06/2011 GLADYS MEDEIROS, SHEBA 465.9 Upper Respiratory Infection 08/06/2011 LIZ ELI, PRABHA Ibrahim 465.9 Upper Respiratory Infection 09/18/2011 Ot 250.00 DIAB KALA WO COMPL, TYPE II OR UNSPEC TY 09/18/2011 Ot 272.4 HYPERLIPIDEMIA NEC/NOS 09/18/2011 Ot 401.9 HYPERTENSION NOS 09/18/2011 Ot 414.00 CORON ATHEROSCLER NOS TYPE VESSEL, NATIV 09/18/2011 Ot 428.0 CONGESTIVE HEART FAILURE NOS 09/18/2011 Ot 473.9 CHRONIC SINUSITIS NOS 09/18/2011 Ot 486 PNEUMONIA, ORGANISM NOS 09/18/2011 Ot 593.9 RENAL URETERAL DIS NOS 09/18/2011 Ot 596.89 OTHER SPECIFIED DISORDERS OF BLADDER 09/18/2011 Ot 787.01 NAUSEA WITH VOMITING 09/18/2011 Ot 787.3 FLATUL/ERUCTAT/GAS PAIN 09/18/2011 Ot 788.30 UNSPECIFIED URINARY INCONTINENCE 09/18/2011 Ot 789.03 ABDOMINAL PAIN, RIGHT LOWER QUADRANT 09/18/2011 Ot 799.02 HYPOXEMIA 09/18/2011 Ot V12.04 PERSONAL HIST OF METHICILLIN RESISTANT S 09/18/2011 Ot V12.54 PERSONAL HX OF TIA, CEREBRAL INFARCTION 09/18/2011 Ot V12.55 PERSONAL HISTORY OF PULMONARY EMBOLISM 09/18/2011 Ot V12.71 PERSONAL HISTORY OF PEPTIC ULCER DISEASE 09/18/2011 Ot V13.02 PERSONAL HISTORY, URINARY (TRACT) INFECT 09/18/2011 Ot V45.81 AORTOCORONARY BYPASS 10/01/2011 RAMON GODFREYS, KATALINA F 789.00 Abdominal Pain 10/01/2011 789.00 Abdominal Pain 10/01/2011 789.00 Abdominal Pain 10/01/2011 SURY BOB, ANTWAN Bond 789.00 Abdominal Pain 10/01/2011 PRABHA HILL APRN 789.00 Abdominal Pain 10/01/2011 789.00 Abdominal Pain 10/01/2011 789.00 Abdominal Pain 10/01/2011 789.00 Abdominal Pain 10/01/2011 789.00 Abdominal Pain 10/01/2011 789.00 Abdominal Pain 10/01/2011 SORENSEN DO, ALESSANDRA K 789.00 Abdominal Pain 10/01/2011 SORENSEN DO, ALESSANDRA K 789.00 Abdominal Pain 10/01/2011 SORENSEN DO, ALESSANDRA K 789.00 Abdominal Pain 10/01/2011 SORENSEN DO, ALESSANDRA K 789.00 Abdominal Pain 10/01/2011 ROBBIE DDS, KAHLIL Bond 789.00 Abdominal Pain 10/01/2011 AMRIK DDS, FRANKI Lu 789.00 Abdominal Pain 10/01/2011 SORENSEN DO, ALESSANDRA K 789.00 Abdominal Pain 10/01/2011 SORENSEN DO, ALESSANDRA K 789.00 Abdominal Pain 10/01/2011 SORENSEN DO, ALESSANDRA K 789.00 Abdominal Pain 10/01/2011 SORENSEN DO, ALESSANDRA K 789.00 Abdominal Pain 10/01/2011 SORENSEN DO, ALESSANDRA K 789.00 Abdominal Pain 10/01/2011 GALINDO BOB, SHERINE Lou 789.00 Abdominal Pain 10/01/2011 GLADYS GODFREYS, SHEBA 789.00 Abdominal Pain 10/01/2011 LIZ ELI, PRABHA S 789.00 Abdominal Pain 10/07/2011 Ot V58.81 FIT/ADJ VASCULAR CATHETER 10/20/2011 RAMON DDS, KATALINA F 719.43 Joint Pain, Localized In The Wrist 10/20/2011 RAMON DDS, KATALINA F 719.46 Joint Pain, Localized In The Knee 10/20/2011 RAMON DDS, KATALINA F E880.1 Accidental Fall On Or From Sidewalk Curb 10/20/2011 719.43 Joint Pain, Localized In The Wrist 10/20/2011 719.46 Joint Pain, Localized In The Knee 10/20/2011 E880.1 Accidental Fall On Or From Sidewalk Curb 10/20/2011 719.43 Joint Pain, Localized In The Wrist 10/20/2011 719.46 Joint Pain, Localized In The Knee 10/20/2011 E880.1 Accidental Fall On Or From Sidewalk Curb 10/20/2011 SURY BOB, ANTWAN Bond 719.43 Joint Pain, Localized In The Wrist 10/20/2011 SURY BOB, ANTWAN Bond 719.46 Joint Pain, Localized In The Knee 10/20/2011 SURY BOB, ANTWAN Bond E880.1 Accidental Fall On Or From Sidewalk Curb 10/20/2011 LIZ AIRCRAFT PAINTER APPRENTICE, PRABHA S 719.43 Joint Pain, Localized In The Wrist 10/20/2011 LIZ AIRCRAFT PAINTER APPRENTICE, PRABHA S 719.46 Joint Pain, Localized In The Knee 10/20/2011 LIZ ELI, PRABHA S E880.1 Accidental Fall On Or From Sidewalk Curb 10/20/2011 719.43 Joint Pain, Localized In The Wrist 10/20/2011 719.46 Joint Pain, Localized In The Knee 10/20/2011 E880.1 Accidental Fall On Or From Sidewalk Curb 10/20/2011 719.43 Joint Pain, Localized In The Wrist 10/20/2011 719.46 Joint Pain, Localized In The Knee 10/20/2011 E880.1 Accidental Fall On Or From Sidewalk Curb 10/20/2011 719.43 Joint Pain, Localized In The Wrist 10/20/2011 719.46 Joint Pain, Localized In The Knee 10/20/2011 E880.1 Accidental Fall On Or From Sidewalk Curb 10/20/2011 719.43 Joint Pain, Localized In The Wrist 10/20/2011 719.46 Joint Pain, Localized In The Knee 10/20/2011 E880.1 Accidental Fall On Or From Sidewalk Curb 10/20/2011 719.43 Joint Pain, Localized In The Wrist 10/20/2011 719.46 Joint Pain, Localized In The Knee 10/20/2011 E880.1 Accidental Fall On Or From Sidewalk Curb 10/20/2011 SORENSEN DO, ALESSANDRA K 719.43 Joint Pain, Localized In The Wrist 10/20/2011 SORENSEN DO, ALESSANDRA K 719.46 Joint Pain, Localized In The Knee 10/20/2011 SORENSEN DO, ALESSANDRA K E880.1 Accidental Fall On Or From Sidewalk Curb 10/20/2011 SORENSEN DO, ALESSANDRA K 719.43 Joint Pain, Localized In The Wrist 10/20/2011 SORENSEN DO, ALESSANDRA K 719.46 Joint Pain, Localized In The Knee 10/20/2011 SORENSEN DO, ALESSANDRA K E880.1 Accidental Fall On Or From Sidewalk Curb 10/20/2011 SORENSEN DO, ALESSANDRA K 719.43 Joint Pain, Localized In The Wrist 10/20/2011 SORENSEN DO, ALESSANDRA K 719.46 Joint Pain, Localized In The Knee 10/20/2011 SORENSEN DO, ALESSANDRA K E880.1 Accidental Fall On Or From Sidewalk Curb 10/20/2011 SORENSEN DO, ALESSANDRA K 719.43 Joint Pain, Localized In The Wrist 10/20/2011 SORENSEN DO, ALESSANDAR K 719.46 Joint Pain, Localized In The Knee 10/20/2011 SORENSEN DO, ALESSANDRA K E880.1 Accidental Fall On Or From Sidewalk Curb 10/20/2011 ROBBIE DDSKAHLIL 719.43 Joint Pain, Localized In The Wrist 10/20/2011 ROBBIE DDSKAHLIL 719.46 Joint Pain, Localized In The Knee 10/20/2011 ROBBIE DDSKAHLIL E880.1 Accidental Fall On Or From Sidewalk Curb 10/20/2011 WHITE DDS, FRANKI J 719.43 Joint Pain, Localized In The Wrist 10/20/2011 WHITE DDS, FRANKI J 719.46 Joint Pain, Localized In The Knee 10/20/2011 WHITE DDS, FRANKI J E880.1 Accidental Fall On Or From Sidewalk Curb 10/20/2011 SORENSEN DO, ALESSANDRA K 719.43 Joint Pain, Localized In The Wrist 10/20/2011 SORENSEN DO, ALESSANDRA K 719.46 Joint Pain, Localized In The Knee 10/20/2011 SORENSEN DO, ALESSANDRA K E880.1 Accidental Fall On Or From Sidewalk Curb 10/20/2011 SORENSEN DO, ALESSANDRA K 719.43 Joint Pain, Localized In The Wrist 10/20/2011 SORENSEN DO, ALESSANDRA K 719.46 Joint Pain, Localized In The Knee 10/20/2011 SORENSEN DO, ALESSANDRA K E880.1 Accidental Fall On Or From Sidewalk Curb 10/20/2011 SORENSEN DO, ALESSANDRA K 719.43 Joint Pain, Localized In The Wrist 10/20/2011 SORENSEN DO, ALESSANDRA K 719.46 Joint Pain, Localized In The Knee 10/20/2011 SORENSEN DO, ALESSANDRA K E880.1 Accidental Fall On Or From Sidewalk Curb 10/20/2011 SORENSEN DO, ALESSANDRA K 719.43 Joint Pain, Localized In The Wrist 10/20/2011 SORENSEN DO, ALESSANDRA K 719.46 Joint Pain, Localized In The Knee 10/20/2011 SORENSEN DO, ALESSANDRA K E880.1 Accidental Fall On Or From Sidewalk Curb 10/20/2011 SORENSEN DO, ALESSANDRA K 719.43 Joint Pain, Localized In The Wrist 10/20/2011 SORENSEN DO, ALESSANDRA K 719.46 Joint Pain, Localized In The Knee 10/20/2011 SORENSEN DO, ALESSANDRA K E880.1 Accidental Fall On Or From Sidewalk Curb 10/20/2011 SHERINE MEDLEY MD 719.43 Joint Pain, Localized In The Wrist 10/20/2011 SHERINE MEDLEY MD 719.46 Joint Pain, Localized In The Knee 10/20/2011 SHERINE MEDLEY MD N E880.1 Accidental Fall On Or From Sidewalk Curb 10/20/2011 GLADYS GODFREYSSHEBA 719.43 Joint Pain, Localized In The Wrist 10/20/2011 GLADYS GODFREYSSHEBA 719.46 Joint Pain, Localized In The Knee 10/20/2011 GLADYS GODFREYSSHEBA E880.1 Accidental Fall On Or From Sidewalk Curb 10/20/2011 PRABHA HILL APRN 719.43 Joint Pain, Localized In The Wrist 10/20/2011 PRABHA HILL APRN S 719.46 Joint Pain, Localized In The Knee 10/20/2011 PRABHA HILL APRN S E880.1 Accidental Fall On Or From Sidewalk Curb 12/19/2011 RAMON DDS, KATALINA F 707.15 ULCER-FOOT/TOES 12/19/2011 707.15 ULCER-FOOT/TOES 12/19/2011 707.15 ULCER-FOOT/TOES 12/19/2011 SURY BOB, ANTWAN Bond 707.15 ULCER-FOOT/TOES 12/19/2011 PRABHA HILL APRN 707.15 ULCER-FOOT/TOES 12/19/2011 707.15 ULCER-FOOT/TOES 12/19/2011 707.15 ULCER-FOOT/TOES 12/19/2011 707.15 ULCER-FOOT/TOES 12/19/2011 707.15 ULCER-FOOT/TOES 12/19/2011 707.15 ULCER-FOOT/TOES 12/19/2011 SORENSEN DO, ALESSANDRA K 707.15 ULCER-FOOT/TOES 12/19/2011 SORENSEN DO, ALESSANDRA K 707.15 ULCER-FOOT/TOES 12/19/2011 SORENSEN DO, ALESSANDRA K 707.15 ULCER-FOOT/TOES 12/19/2011 SORENSEN DO, ALESSANDRA K 707.15 ULCER-FOOT/TOES 12/19/2011 ROBBIE GODFREYS, KAHLIL Bond 707.15 ULCER-FOOT/TOES 12/19/2011 AMRIK GODFREYS, FRANKI Lu 707.15 ULCER-FOOT/TOES 12/19/2011 SORENSEN DO, ALESSANDRA K 707.15 ULCER-FOOT/TOES 12/19/2011 SORENSEN DO, ALESSANDRA K 707.15 ULCER-FOOT/TOES 12/19/2011 SORENSEN DO, ALESSANDRA K 707.15 ULCER-FOOT/TOES 12/19/2011 SORENSEN DO, ALESSANDRA K 707.15 ULCER-FOOT/TOES 12/19/2011 SORENSEN DO, ALESSANDRA K 707.15 ULCER-FOOT/TOES 12/19/2011 GALINDO BOB, SHERINE Lou 707.15 ULCER-FOOT/TOES 12/19/2011 GLADYS GODFREYS, SHEBA 707.15 ULCER-FOOT/TOES 12/19/2011 PRABHA HILL APRN 707.15 ULCER-FOOT/TOES 01/21/2012 Ot V58.81 FIT/ADJ VASCULAR CATHETER 03/05/2012 RAMON GODFREYS, KATALINA Espino V05.8 ZOSTAVAX DX 03/05/2012 V05.8 ZOSTAVAX DX 03/05/2012 V05.8 ZOSTAVAX DX 03/05/2012 SURY BOB, ANTWAN Bond V05.8 ZOSTAVAX DX 03/05/2012 PRABHA HILL APRN V05.8 ZOSTAVAX DX 03/05/2012 V05.8 ZOSTAVAX DX 03/05/2012 V05.8 ZOSTAVAX DX 03/05/2012 V05.8 ZOSTAVAX DX 03/05/2012 V05.8 ZOSTAVAX DX 03/05/2012 V05.8 ZOSTAVAX DX 03/05/2012 SORENSEN DO, ALESSANRDA K V05.8 ZOSTAVAX DX 03/05/2012 SORENSEN DO, ALESSANDRA K V05.8 ZOSTAVAX DX 03/05/2012 SORENSEN DO, ALESSANDRA K V05.8 ZOSTAVAX DX 03/05/2012 SORENSEN DO, ALESSANDRA K V05.8 ZOSTAVAX DX 03/05/2012 ROBBIE DDS, KAHLIL Bond V05.8 ZOSTAVAX DX 03/05/2012 AMRIK DDS, FRANKI Lu V05.8 ZOSTAVAX DX 03/05/2012 SORENSEN DO, ALESSANDRA K V05.8 ZOSTAVAX DX 03/05/2012 SORENSEN DO, ALESSANDRA K V05.8 ZOSTAVAX DX 03/05/2012 SORENSEN DO, ALESSANDRA K V05.8 ZOSTAVAX DX 03/05/2012 SORENSEN DO, ALESSANDRA K V05.8 ZOSTAVAX DX 03/05/2012 SORENSEN DO, ALESSANDRA K V05.8 ZOSTAVAX DX 03/05/2012 GALINDO BOB, SHERINE Lou V05.8 ZOSTAVAX DX 03/05/2012 GLADYS GODFREYS, SHEBA V05.8 ZOSTAVAX DX 03/05/2012 PRABHA HILL APRN V05.8 ZOSTAVAX DX 04/12/2012 Ot 459.81 VENOUS INSUFFICIENCY NOS 04/12/2012 Ot V58.81 FIT/ADJ VASCULAR CATHETER 04/25/2012 Ot 558.9 NONINF GASTROENTERIT NEC 04/25/2012 Ot 787.03 VOMITING ALONE 05/25/2012 RAMON DDS, KATALINA F 525.9 TOOTH PAIN 05/25/2012 RAMON DDS, KATALINA F 786.09 DYSPNEA 05/25/2012 RAMON DDS, KATALINA F V04.81 FLU DX (MEDICARE ONLY) 05/25/2012 525.9 TOOTH PAIN 05/25/2012 786.09 DYSPNEA 05/25/2012 V04.81 FLU DX (MEDICARE ONLY) 05/25/2012 525.9 TOOTH PAIN 05/25/2012 786.09 DYSPNEA 05/25/2012 V04.81 FLU DX (MEDICARE ONLY) 05/25/2012 SURY BOB, ANTWAN Bond 525.9 TOOTH PAIN 05/25/2012 SURY BOB, ANTWAN Bond 786.09 DYSPNEA 05/25/2012 SURY BOB, ANTWAN Bond V04.81 FLU DX (MEDICARE ONLY) 05/25/2012 LIZ AIRCRAFT PAINTER APPRENTICE, PRABHA S 525.9 TOOTH PAIN 05/25/2012 LIZ AIRCRAFT PAINTER APPRENTICE, PRABHA S 786.09 DYSPNEA 05/25/2012 LIZ AIRCRAFT PAINTER APPRENTICE, PRABHA S V04.81 FLU DX (MEDICARE ONLY) 05/25/2012 525.9 TOOTH PAIN 05/25/2012 786.09 DYSPNEA 05/25/2012 V04.81 FLU DX (MEDICARE ONLY) 05/25/2012 525.9 TOOTH PAIN 05/25/2012 786.09 DYSPNEA 05/25/2012 V04.81 FLU DX (MEDICARE ONLY) 05/25/2012 525.9 TOOTH PAIN 05/25/2012 786.09 DYSPNEA 05/25/2012 V04.81 FLU DX (MEDICARE ONLY) 05/25/2012 525.9 TOOTH PAIN 05/25/2012 786.09 DYSPNEA 05/25/2012 V04.81 FLU DX (MEDICARE ONLY) 05/25/2012 525.9 TOOTH PAIN 05/25/2012 786.09 DYSPNEA 05/25/2012 V04.81 FLU DX (MEDICARE ONLY) 05/25/2012 SORENSEN DO, ALESSANDRA K 525.9 TOOTH PAIN 05/25/2012 SORENSEN DO, ALESSANDRA K 786.09 DYSPNEA 05/25/2012 SORENSEN DO, ALESSANDRA K V04.81 FLU DX (MEDICARE ONLY) 05/25/2012 SORENSEN DO, ALESSANDRA K 525.9 TOOTH PAIN 05/25/2012 SORENSEN DO, ALESSANDRA K 786.09 DYSPNEA 05/25/2012 SORENSEN DO, ALESSANDRA K V04.81 FLU DX (MEDICARE ONLY) 05/25/2012 SORENSEN DO, ALESSANDRA K 525.9 TOOTH PAIN 05/25/2012 SORENSEN DO, ALESSANDRA K 786.09 DYSPNEA 05/25/2012 SORENSEN DO, ALESSANDRA K V04.81 FLU DX (MEDICARE ONLY) 05/25/2012 SORENSEN DO, ALESSANDRA K 525.9 TOOTH PAIN 05/25/2012 SORENSEN DO, ALESSANDRA K 786.09 DYSPNEA 05/25/2012 SORENSEN DO, ALESSANDRA K V04.81 FLU DX (MEDICARE ONLY) 05/25/2012 ROBBIE DDS, KAHLIL Bond 525.9 TOOTH PAIN 05/25/2012 ROBBIE DDS, KAHLIL M 786.09 DYSPNEA 05/25/2012 ROBBIE DDS, KAHLIL Bond V04.81 FLU DX (MEDICARE ONLY) 05/25/2012 WHITE DDS, FRANKI J 525.9 TOOTH PAIN 05/25/2012 WHITE DDS, FRANKI J 786.09 DYSPNEA 05/25/2012 WHITE DDS, FRANKI J V04.81 FLU DX (MEDICARE ONLY) 05/25/2012 SORENSEN DO, ALESSANDRA K 525.9 TOOTH PAIN 05/25/2012 SORENSEN DO, ALESSANDRA K 786.09 DYSPNEA 05/25/2012 SORENSEN DO, ALESSANDRA K V04.81 FLU DX (MEDICARE ONLY) 05/25/2012 SORENSEN DO, ALESSANDRA K 525.9 TOOTH PAIN 05/25/2012 SORENSEN DO, ALESSANDRA K 786.09 DYSPNEA 05/25/2012 SORENSEN DO, ALESSANDRA K V04.81 FLU DX (MEDICARE ONLY) 05/25/2012 SORENSEN DO, ALESSANDRA K 525.9 TOOTH PAIN 05/25/2012 SORENSEN DO, ALESSANDRA K 786.09 DYSPNEA 05/25/2012 SORENSEN DO, ALESSANDRA K V04.81 FLU DX (MEDICARE ONLY) 05/25/2012 SORENSEN DO, ALESSANDRA K 525.9 TOOTH PAIN 05/25/2012 SORENSEN DO, ALESSANDRA K 786.09 DYSPNEA 05/25/2012 SORENSEN DO, ALESASNDRA K V04.81 FLU DX (MEDICARE ONLY) 05/25/2012 SORENSEN DO, ALESSANDRA K 525.9 TOOTH PAIN 05/25/2012 SORENSEN DO, ALESSANDRA K 786.09 DYSPNEA 05/25/2012 SORENSEN DO, ALESSANDRA K V04.81 FLU DX (MEDICARE ONLY) 05/25/2012 SHERINE MEDLEY MD 525.9 TOOTH PAIN 05/25/2012 SHERINE MEDLEY MD 786.09 DYSPNEA 05/25/2012 SHERINE MEDLEY MD V04.81 FLU DX (MEDICARE ONLY) 05/25/2012 GRAHAM DDS, SHEBA 525.9 TOOTH PAIN 05/25/2012 GRAHAM DDS, SHEBA 786.09 DYSPNEA 05/25/2012 GRAHAM DDS, SHEBA V04.81 FLU DX (MEDICARE ONLY) 05/25/2012 LIZ AIRCRAFT PAINTER APPRENTICEPILIPRABHA S 525.9 TOOTH PAIN 05/25/2012 LIZ AIRCRAFT PAINTER APPRENTICE, PRABHA S 786.09 DYSPNEA 05/25/2012 LIZ AIRCRAFT PAINTER APPRENTICE, PRABHA S V04.81 FLU DX (MEDICARE ONLY) 07/28/2012 Ot V58.81 FIT/ADJ VASCULAR CATHETER 10/05/2012 LIZBETI ELI PRABHA S 466.0 BRONCHITIS, ACUTE 10/05/2012 466.0 BRONCHITIS, ACUTE 10/05/2012 466.0 BRONCHITIS, ACUTE 10/05/2012 466.0 BRONCHITIS, ACUTE 10/05/2012 466.0 BRONCHITIS, ACUTE 10/05/2012 466.0 BRONCHITIS, ACUTE 10/05/2012 SORENSEN DO, ALESSANDRA K 466.0 BRONCHITIS, ACUTE 10/05/2012 SORENSEN DO, ALESSANDRA K 466.0 BRONCHITIS, ACUTE 10/05/2012 SORENSEN DO, ALESSANDRA K 466.0 BRONCHITIS, ACUTE 10/05/2012 SORENSEN DO, ALESSANDRA K 466.0 BRONCHITIS, ACUTE 10/05/2012 ROBBIE DDS, KAHLIL Bond 466.0 BRONCHITIS, ACUTE 10/05/2012 AMRIK DDS, FRANKI Lu 466.0 BRONCHITIS, ACUTE 10/05/2012 SORENSEN DO, ALESSANDRA K 466.0 BRONCHITIS, ACUTE 10/05/2012 SORENSEN DO, ALESSANDRA K 466.0 BRONCHITIS, ACUTE 10/05/2012 SORENSEN DO, ALESSANDRA K 466.0 BRONCHITIS, ACUTE 10/05/2012 SORENSEN DO, ALESSANDRA K 466.0 BRONCHITIS, ACUTE 10/05/2012 SORENSEN DO, ALESSANDRA K 466.0 BRONCHITIS, ACUTE 10/05/2012 GALINDO BOB, SHERINE Lou 466.0 BRONCHITIS, ACUTE 10/05/2012 GLADYS GODFREYS, SHEBA 466.0 BRONCHITIS, ACUTE 10/05/2012 LIZ ELI PRABHA S 466.0 BRONCHITIS, ACUTE 11/28/2012 EDU TREVIZO ALESSANDRA K Ot 250.00 DIAB KALA WO COMPL, TYPE II OR UNSPEC TY 11/28/2012 EDU TREVIZO ALESSANDRA K Ot 272.4 HYPERLIPIDEMIA NEC/NOS 11/28/2012 EDU TREVIZO ALESSANDRA K Ot 403.90 HYPTNSV CHR KID DIS, UNSPEC, W CHR KD ST 11/28/2012 EDU TREVIZO ALESSANDRA K Ot 412 OLD MYOCARDIAL INFARCT 11/28/2012 EDU TREVIZO ALESSANDRA K Ot 414.00 CORON ATHEROSCLER NOS TYPE VESSEL, NATIV 11/28/2012 EDU TREVIZO ALESSANDRA K Ot 464.10 AC TRACHEITIS NO OBSTRUC 11/28/2012 SORENSEN DO, ALESSANDRA K Ot 585.9 CHRONIC KIDNEY DISEASE, UNSPECIFIED 11/28/2012 SORENSEN DO ALESSANDRA K Ot V12.55 PERSONAL HISTORY OF PULMONARY EMBOLISM 11/28/2012 SORENSEN DO ALESSANDRA K Ot V45.81 AORTOCORONARY BYPASS 11/28/2012 SORENSEN DO, ALESSANDRA K Ot V45.82 PERCUTANEOUS TRANSLUM CORON ANGIOPLASTY 12/08/2012 519.19 OTHER DISEASES OF TRACHEA AND BRONCHUS NOT ELSEWHERE CLASSIFIED 12/08/2012 519.19 OTHER DISEASES OF TRACHEA AND BRONCHUS NOT ELSEWHERE CLASSIFIED 12/08/2012 519.19 OTHER DISEASES OF TRACHEA AND BRONCHUS NOT ELSEWHERE CLASSIFIED 12/08/2012 SORENSEN DO ALESSANDRA K 519.19 OTHER DISEASES OF TRACHEA AND BRONCHUS NOT ELSEWHERE CLASSIFIED 12/08/2012 SORENSEN DO ALESSANDRA K 519.19 OTHER DISEASES OF TRACHEA AND BRONCHUS NOT ELSEWHERE CLASSIFIED 12/08/2012 SORENSEN DO, ALESSANDRA K 519.19 OTHER DISEASES OF TRACHEA AND BRONCHUS NOT ELSEWHERE CLASSIFIED 12/08/2012 SORENSEN DO, ALESSANDRA K 519.19 OTHER DISEASES OF TRACHEA AND BRONCHUS NOT ELSEWHERE CLASSIFIED 12/08/2012 KAHLIL AVALOS DDS 519.19 OTHER DISEASES OF TRACHEA AND BRONCHUS NOT ELSEWHERE CLASSIFIED 12/08/2012 FRANKI ROWLEY DDS 519.19 OTHER DISEASES OF TRACHEA AND BRONCHUS NOT ELSEWHERE CLASSIFIED 12/08/2012 SORENSEN DO, ALESSANDRA K 519.19 OTHER DISEASES OF TRACHEA AND BRONCHUS NOT ELSEWHERE CLASSIFIED 12/08/2012 SORENSEN DO, ALESSANDRA K 519.19 OTHER DISEASES OF TRACHEA AND BRONCHUS NOT ELSEWHERE CLASSIFIED 12/08/2012 SORENSEN DO, ALESSANDRA K 519.19 OTHER DISEASES OF TRACHEA AND BRONCHUS NOT ELSEWHERE CLASSIFIED 12/08/2012 SORENSEN DO, ALESSANDRA K 519.19 OTHER DISEASES OF TRACHEA AND BRONCHUS NOT ELSEWHERE CLASSIFIED 12/08/2012 SORENSEN DO, ALESSANDRA K 519.19 OTHER DISEASES OF TRACHEA AND BRONCHUS NOT ELSEWHERE CLASSIFIED 12/08/2012 GALINDO BOB, SHERINE Lou 519.19 OTHER DISEASES OF TRACHEA AND BRONCHUS NOT ELSEWHERE CLASSIFIED 12/08/2012 SHEBA GRAHAM DDS 519.19 OTHER DISEASES OF TRACHE[place] AND BRONCHUS NOT ELSEWHERE CLASSIFIED 12/08/2012 LIZ AIRCRAFT PAINTER APPRENTICEPILIPRABHA S 519.19 OTHER DISEASES OF TRACHE[place] AND BRONCHUS NOT ELSEWHERE CLASSIFIED 05/16/2013 SORENSEN DO ALESSANDRA K 250.80 DIABETES WITH OTHER SPECIFIED MANIFESTATIONS TYPE II OR UNSPECIFIED TYPE NOT STATED UNCONTROLLED 05/16/2013 SORENSEN DO ALESSANDRA K 788.1 DYSURIA 05/16/2013 SORENSEN DO ALESSANDRA K 250.80 DIABETES WITH OTHER SPECIFIED MANIFESTATIONS TYPE II OR UNSPECIFIED TYPE NOT STATED UNCONTROLLED 05/16/2013 SORENSEN DO ALESSANDRA K 788.1 DYSURIA 05/16/2013 SORENSEN DO ALESSANDRA K 250.80 DIABETES WITH OTHER SPECIFIED MANIFESTATIONS TYPE II OR UNSPECIFIED TYPE NOT STATED UNCONTROLLED 05/16/2013 SORENSEN DO ALESSANDRA K 788.1 DYSURIA 05/16/2013 KAHLIL AVALOS DDS 250.80 DIABETES WITH OTHER SPECIFIED MANIFESTATIONS TYPE II OR UNSPECIFIED TYPE NOT STATED UNCONTROLLED 05/16/2013 KAHLIL AVALOS DDS 788.1 DYSURIA 05/16/2013 FRANKI ROWLEY DDS 250.80 DIABETES WITH OTHER SPECIFIED MANIFESTATIONS TYPE II OR UNSPECIFIED TYPE NOT STATED UNCONTROLLED 05/16/2013 FRANKI ROWLEY DDS 788.1 DYSURIA 05/16/2013 EDU TREVIZO ALESSANDRA K 250.80 DIABETES WITH OTHER SPECIFIED MANIFESTATIONS TYPE II OR UNSPECIFIED TYPE NOT STATED UNCONTROLLED 05/16/2013 EDU DO ALESSANDRA K 788.1 DYSURIA 05/16/2013 SORENSEN DO ALESSANDRA K 250.80 DIABETES WITH OTHER SPECIFIED MANIFESTATIONS TYPE II OR UNSPECIFIED TYPE NOT STATED UNCONTROLLED 05/16/2013 EDU DO ALESSANDRA K 788.1 DYSURIA 05/16/2013 SORENSEN DO ALESSANDRA K 250.80 DIABETES WITH OTHER SPECIFIED MANIFESTATIONS TYPE II OR UNSPECIFIED TYPE NOT STATED UNCONTROLLED 05/16/2013 SORENSEN DO ALESSANDRA K 788.1 DYSURIA 05/16/2013 SORENSEN DO ALESSANDRA K 250.80 DIABETES WITH OTHER SPECIFIED MANIFESTATIONS TYPE II OR UNSPECIFIED TYPE NOT STATED UNCONTROLLED 05/16/2013 SORENSEN DO ALESSANDRA K 788.1 DYSURIA 05/16/2013 SORENSEN DO, ALESSANDRA K 250.80 DIABETES WITH OTHER SPECIFIED MANIFESTATIONS TYPE II OR UNSPECIFIED TYPE NOT STATED UNCONTROLLED 05/16/2013 SORENSEN DO ALESSANDRA K 788.1 DYSURIA 05/16/2013 SHERINE MEDLEY MD N 250.80 DIABETES WITH OTHER SPECIFIED MANIFESTATIONS TYPE II OR UNSPECIFIED TYPE NOT STATED UNCONTROLLED 05/16/2013 SHERINE MEDLEY MD N 788.1 DYSURIA 05/16/2013 GLADYS MEDEIROS, SHEBA 250.80 DIABETES WITH OTHER SPECIFIED MANIFESTATIONS TYPE II OR UNSPECIFIED TYPE NOT STATED UNCONTROLLED 05/16/2013 GLADYS MEDEIROS, SHEBA 788.1 DYSURIA 05/16/2013 PRABHA HILL APRN S 250.80 DIABETES WITH OTHER SPECIFIED MANIFESTATIONS TYPE II OR UNSPECIFIED TYPE NOT STATED UNCONTROLLED 05/16/2013 PRABHA HILL APRN S 788.1 DYSURIA 07/23/2013 ED KENNEDY APRN Ot 590.80 PYELONEPHRITIS NOS 07/23/2013 ED KENNEDY APRN Ot 788.1 DYSURIA 10/17/2013 SORENSEN DO, ALESSANDRA K 272.4 HYPERLIPIDEMIA HYPERLIPOPROTEINEMIAS (OLD CLASSIFICATION) 10/17/2013 SORENSEN DO, ALESSANDRA K 401.1 ESSENTIAL HYPERTENSION BENIGN 10/17/2013 SORENSEN DO, ALESSANDRA K 272.4 HYPERLIPIDEMIA HYPERLIPOPROTEINEMIAS (OLD CLASSIFICATION) 10/17/2013 SORENSEN DO, ALESSANDRA K 401.1 ESSENTIAL HYPERTENSION BENIGN 10/17/2013 SORENSEN DO, ALESSANDRA K 272.4 HYPERLIPIDEMIA HYPERLIPOPROTEINEMIAS (OLD CLASSIFICATION) 10/17/2013 SORENSEN DO, ALESSANDRA K 401.1 ESSENTIAL HYPERTENSION BENIGN 10/17/2013 SORENSEN DO, ALESSANDRA K 272.4 HYPERLIPIDEMIA HYPERLIPOPROTEINEMIAS (OLD CLASSIFICATION) 10/17/2013 SORENSEN DO, ALESSANDRA K 401.1 ESSENTIAL HYPERTENSION BENIGN 10/17/2013 SORENSEN DO, ALESSANDRA K 272.4 HYPERLIPIDEMIA HYPERLIPOPROTEINEMIAS (OLD CLASSIFICATION) 10/17/2013 SORENSEN DO, ALESSANDRA K 401.1 ESSENTIAL HYPERTENSION BENIGN 10/17/2013 SHERINE MEDLEY MD N 272.4 HYPERLIPIDEMIA HYPERLIPOPROTEINEMIAS (OLD CLASSIFICATION) 10/17/2013 SHERINE MEDLEY MD N 401.1 ESSENTIAL HYPERTENSION BENIGN 10/17/2013 SHEBA GRAHAM DDS 272.4 HYPERLIPIDEMIA HYPERLIPOPROTEINEMIAS (OLD CLASSIFICATION) 10/17/2013 SHEBA GRAHAM DDS 401.1 ESSENTIAL HYPERTENSION BENIGN 10/17/2013 PRABHA HILL APRN S 272.4 HYPERLIPIDEMIA HYPERLIPOPROTEINEMIAS ( OLD CLASSIFICATION) 10/17/2013 PRABHA HILL APRN S 401.1 ESSENTIAL HYPERTENSION BENIGN 04/13/2014 GALINDO BOB, SHERINE N 564.00 CONSTIPATION 04/13/2014 GLADYS MEDEIROS, SHEBA 564.00 CONSTIPATION 04/13/2014 PRABHA HILL APRN S 564.00 CONSTIPATION 07/25/2014 JORGE ESCOBAR K Ot 272.4 07/25/2014 JORGE ESCOBAR Ot 401.9 07/25/2014 JORGE ESCOBAR K Ot 414.00 07/25/2014 JORGE ESCOBAR K Ot 428.0 07/26/2014 GLADYS MEDEIROS, SHEBA V70.0 EXAM - ROUTINE H&P 07/26/2014 PRABHA HILL APRN S V70.0 EXAM - ROUTINE H&P 07/31/2014 JORGE ESCOBAR K Ot 272.4 07/31/2014 JORGE ESCOBAR Ot 401.9 07/31/2014 JORGE ESCOBAR K Ot 414.00 07/31/2014 JORGE ESCOBAR K Ot 428.0 08/28/2014 SURY BOB, ANTWAN Bond Ot 250.00 DIAB KALA WO COMPL, TYPE II OR UNSPEC TY 08/28/2014 SURY BOB, ANTWAN Bond Ot 272.4 HYPERLIPIDEMIA NEC/NOS 08/28/2014 SURY BOB, ANTWAN Bond Ot 401.9 HYPERTENSION NOS 08/28/2014 SURY BOB, ANTWAN Bond Ot 414.01 CORONARY ATHEROSCLEROSIS OF [place] CORON 08/28/2014 SURY BOB, ANTWAN Bond Ot 562.10 DIVERTICULOSIS COLON (W/O MENT OF HEMORR 08/28/2014 SURY BOB, ANTWAN Bond Ot 564.00 UNSPEC CONSTIPATION 08/28/2014 ANTWAN GA MD Ot V12.72 PERSONAL HISTORY OF COLONIC POLYPS 09/04/2014 KATHRYN BOB, LUÍS Dumont Ot 466.0 ACUTE BRONCHITIS 09/04/2014 KATHRYN BOB, LUÍS Dumont Ot 786.05 SHORTNESS OF BREATH 12/25/2014 MICHAEL BOB, BASHAR J Ot 272.4 12/25/2014 MICHAEL BOB, BASVAN J Ot 401.9 12/25/2014 MICHAEL BOB, LUIS CARLOS J Ot 414.00 12/25/2014 MICHAEL BOB, LUIS CARLOS J Ot 428.0 12/25/2014 HARRY PA, JORGE K Ot 272.4 12/25/2014 HARRY PA, JORGE K Ot 401.9 12/25/2014 HARRY PA, JORGE K Ot 414.00 12/25/2014 HARRY PA, JORGE K Ot 428.0 12/30/2014 KEYON BOB, ARNEL Angel Ot 490 BRONCHITIS NOS 12/30/2014 KEYON BOB, ARNEL Angel Ot 786.2 COUGH 01/05/2015 MICHAEL BOB, LUIS CARLOS J Ot 272.4 01/05/2015 MICHAEL BOB, LUIS CARLOS J Ot 401.9 01/05/2015 MICHAEL BOB, LUIS CARLOS J Ot 414.00 01/05/2015 MICHAEL BOB, LUIS CARLOS J Ot 428.0 01/05/2015 HARRY DEVLIN, JORGE K Ot 272.4 01/05/2015 HARRY DEVLIN, JORGE K Ot 401.9 01/05/2015 HARRY DEVLIN, JORGE K Ot 414.00 01/05/2015 HARRY DEVLIN, JORGE K Ot 428.0 01/05/2015 LILIANA BOB, CHITO Olivia Ot 250.00 DIAB KALA WO COMPL, TYPE II OR UNSPEC TY 01/05/2015 LILIANA BOB, CHITO Olivia Ot 272.0 PURE HYPERCHOLESTEROLEM 01/05/2015 LILIANA BOB, CHITO Olivia Ot 355.9 MONONEURITIS NOS 01/05/2015 CHITO FORD MD Ot 401.9 HYPERTENSION NOS 01/05/2015 CHITO FORD MD Ot 414.00 CORON ATHEROSCLER NOS TYPE VESSEL, NATIV 01/05/2015 LILIANA BOB, CHITO Olivia Ot 461.9 ACUTE SINUSITIS NOS 01/05/2015 CHITO FORD MD Ot 462 ACUTE PHARYNGITIS 01/05/2015 CHITO FORD MD Ot 530.81 ESOPHAGEAL REFLUX 01/05/2015 CHITO FORD MD Ot 786.52 PAINFUL RESPIRATION 01/05/2015 CHITO FORD MD Ot V45.81 AORTOCORONARY BYPASS 01/05/2015 CHITO FORD MD Ot V45.82 PERCUTANEOUS TRANSLUM CORON ANGIOPLASTY 01/05/2015 CHITO FORD MD, Ot V58.67 LONG-TERM (CURRENT) USE OF INSULIN 06/27/2015 LUIS CARLOS RODRIGUEZ MD, Ot E11.9 TYPE 2 DIABETES MELLITUS WITHOUT COMPLIC 06/27/2015 LUIS CARLOS RODRIGUEZ MD, Ot E78.5 HYPERLIPIDEMIA, UNSPECIFIED 06/27/2015 LUIS CARLOS RODRIGUEZ MD, Ot I10 ESSENTIAL (PRIMARY) HYPERTENSION 06/27/2015 LUIS CARLOS RODRIGUEZ MD, Ot I25.10 ATHSCL HEART DISEASE OF [place] CORONARY 06/27/2015 LUIS CARLOS RODRIGUEZ MD, Ot 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 06/27/2015 LUIS CARLOS RODRIGUEZ MD, Ot I50.22 CHRONIC SYSTOLIC (CONGESTIVE) HEART FAIL 06/27/2015 LUIS CARLOS RODRIGUEZ MD Ot R94.39 ABNORMAL RESULT OF OTHER CARDIOVASCULAR 06/27/2015 LUIS CARLOS RODRIGUEZ MD, Ot Z79.4 MCC (CURRENT) USE OF INSULIN 06/27/2015 LUIS CARLOS RODRIGUEZ MD, Ot Z79.899 OTHER ANNUAL GIVING DIRECTOR (CURRENT) DRUG THERAPY 06/27/2015 LUIS CARLOS RODRIGUEZ MD, Ot Z86.711 PERSONAL HISTORY OF PULMONARY EMBOLISM 06/27/2015 LUIS CARLOS RODRIGUEZ MD, Ot Z86.718 PERSONAL HISTORY OF OTHER VENOUS THROMBO 06/27/2015 LUIS CARLOS RODRIGUEZ MD, Ot Z95.1 PRESENCE OF AORTOCORONARY BYPASS GRAFT 06/27/2015 LUIS CARLSO RODRIGUEZ MD, Ot Z98.61 CORONARY ANGIOPLASTY STATUS 07/06/2015 CHITO FORD MD, Ot E11.9 TYPE 2 DIABETES MELLITUS WITHOUT COMPLIC 07/06/2015 CHITO FORD MD, Ot N39.0 URINARY TRACT INFECTION, SITE NOT SPECIF 07/06/2015 CHITO FORD MD, Ot N93.9 ABNORMAL UTERINE AND VAGINAL BLEEDING , U 07/06/2015 CHITO FORD MD Ot R10.2 PELVIC AND PERINEAL PAIN 07/06/2015 LILIANA BOB, CHITO Olivia Ot 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 07/06/2015 CHITO FORD MD Ot Z96.0 PRESENCE OF UROGENITAL IMPLANTS 10/16/2015 Ot 272.4 10/16/2015 Ot 397.0 10/16/2015 Ot 401.9 10/16/2015 Ot 414.00 10/16/2015 Ot 424.0 10/16/2015 Ot 790.99 10/16/2015 Ot 491.9 10/16/2015 Ot 519.11 10/16/2015 Ot 786.09 10/16/2015 Ot 786.2 10/16/2015 Ot 414.00 10/16/2015 Ot 428.0 10/16/2015 Ot 272.4 10/16/2015 Ot 401.9 10/16/2015 Ot 414.00 10/16/2015 Ot 459.81 10/16/2015 Ot V58.81 10/16/2015 Ot 786.05 10/16/2015 Ot 786.1 10/16/2015 Ot 793.19 10/16/2015 Ot 459.81 10/16/2015 Ot V72.63 10/16/2015 Ot V74.8 10/16/2015 MICHAEL BOB, LUIS CARLOS Lu Ot 250.00 10/16/2015 MICHAEL BOB, LUIS CARLOS Lu Ot 414.00 10/16/2015 MICHAEL BOB, LUIS CARLOS Lu Ot 428.0 10/16/2015 MICHAEL BOB, LUIS CARLOS Lu Ot 453.40 10/16/2015 MICHAEL BOB, LUIS CARLOS Lu Ot 530.81 10/16/2015 MICHAEL BOB, LUIS CARLOS Lu Ot 585.9 10/16/2015 MICHAEL BOB, LUIS CARLOS Lu Ot 250.00 10/16/2015 MICHAEL BOB, LUIS CARLOS Lu Ot 397.0 10/16/2015 MICHAEL BOB, LUIS CARLOS Lu Ot 414.00 10/16/2015 MICHAEL BOB, LUIS CARLOS Lu Ot 424.0 10/16/2015 MICHAEL BOB, LUIS CARLOS Lu Ot 428.0 10/16/2015 MICHAEL BOB, LUIS CARLOS Lu Ot 453.40 10/16/2015 MICHAEL BOB, LUIS CARLOS Lu Ot 530.81 10/16/2015 MICHAEL BOB, LUIS CARLOS Lu Ot 585.9 10/16/2015 MICHAEL BOB, LUIS CARLOS Lu Ot 618.01 10/16/2015 EMMA PINZON REFERENCE LIBRARIAN Ot 564.00 10/16/2015 EMMA PINZON REFERENCE LIBRARIAN Ot 789.00 10/16/2015 HARRY PA, JORGE K Ot 272.4 10/16/2015 HARRY PA, JORGE K Ot 401.9 10/16/2015 HARRY PA, JORGE K Ot 414.00 10/16/2015 HARRY PA, JORGE K Ot 428.0 10/16/2015 MICHAEL BOB, LUIS CARLOS Lu Ot 272.4 10/16/2015 MICHAEL BOB, LUIS CARLOS Lu Ot 401.9 10/16/2015 MICHAEL BOB, LUIS CARLOS Lu Ot 414.00 10/16/2015 MICHAEL BOB, LUIS CARLOS Lu Ot 428.0 10/16/2015 HARRY PA, JORGE K Ot 272.4 10/16/2015 HARRY PA, JORGE K Ot 401.9 10/16/2015 HARRY PA, JORGE K Ot 414.00 10/16/2015 HARRY PA, JORGE K Ot 428.0 10/16/2015 SURY BOB, ANTWAN Bond Ot V72.84 10/17/2015 EMMA PINZON REFERENCE LIBRARIAN Ot Z12.31 11/06/2015 EMMA PINZON REFERENCE LIBRARIAN Ot Z12.31 11/09/2015 EMMA PINZON REFERENCE LIBRARIAN Ot Z12.31 ENCNTR SCREEN MAMMOGRAM FOR MALIGNANT NE 01/16/2016 ASHUTOSH DAVENPORT APRN Ot E11.621 TYPE 2 DIABETES MELLITUS WITH FOOT ULCER 01/16/2016 ASHUTOSH DAVENPORT AIRCRAFT PAINTER APPRENTICE Ot L03.032 CELLULITIS OF LEFT TOE 01/21/2016 ASHUTOSH DAVENPORT APRN Ot E11.621 TYPE 2 DIABETES MELLITUS WITH FOOT ULCER 01/21/2016 ASHUTOSH DAVENPORT APRN Ot L03.032 CELLULITIS OF LEFT TOE 01/22/2016 LUIS CARLOS RODRIGUEZ MD Ot E11.622 TYPE 2 DIABETES MELLITUS WITH OTHER SKIN 01/22/2016 LUIS CARLOS RODRIGUEZ MD Ot I25.10 ATHSCL HEART DISEASE OF [place] CORONARY 01/22/2016 LUIS CARLOS RODRIGUEZ MD Ot I50.22 CHRONIC SYSTOLIC (CONGESTIVE) HEART FAIL 01/22/2016 LUIS CARLOS RODRIGUEZ MD Ot I70.209 UNSP ATHSCL [place] [facility] OF [facility] 01/22/2016 LUIS CARLOS RODRIGUEZ MD Ot I70.92 CHRONIC TOTAL OCCLUSION OF ARTERY OF THE 01/22/2016 LUIS CARLOS RODRIGUEZ MD Ot L97.509 NON-PRESSURE CHRONIC ULCER OTH PRT UNSP 01/22/2016 LUIS CARLOS RODRIGUEZ MD, Ot 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 01/22/2016 LUIS CARLOS RODRIGUEZ MD, Ot Z79.899 OTHER ANNUAL GIVING DIRECTOR (CURRENT) DRUG THERAPY 01/22/2016 LUIS CARLOS RODRIGUEZ MD, Ot Z86.711 PERSONAL HISTORY OF PULMONARY EMBOLISM 01/22/2016 LUIS CARLOS RODRIGUEZ MD, Ot Z95.1 PRESENCE OF AORTOCORONARY BYPASS GRAFT 02/01/2016 ASHUTOSH DAVENPORT AIRCRAFT PAINTER APPRENTICE Ot E11.621 TYPE 2 DIABETES MELLITUS WITH FOOT ULCER 02/01/2016 ASHUTOSH DAVENPORT AIRCRAFT PAINTER APPRENTICE Ot L97.529 NON-PRESSURE CHRONIC ULCER OTH PRT LEFT 02/05/2016 ASHUTOSH DAVENPORT AIRCRAFT PAINTER APPRENTICE Ot E11.621 TYPE 2 DIABETES MELLITUS WITH FOOT ULCER 02/05/2016 ASHUTOSH DAVENPORT AIRCRAFT PAINTER APPRENTICE Ot L97.529 NON-PRESSURE CHRONIC ULCER OTH PRT LEFT 02/06/2016 LUIS CARLOS RODRIGUEZ MD Ot 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 02/06/2016 LUIS CARLOS RODRIGUEZ MD Ot E78.5 HYPERLIPIDEMIA, UNSPECIFIED 02/06/2016 LUIS CARLOS RODRIGUEZ MD Ot I12.9 HYPERTENSIVE CHRONIC KIDNEY DISEASE W ST 02/06/2016 LUIS CARLOS RODRIGUEZ MD Ot I25.10 ATHSCL HEART DISEASE OF [place] CORONARY 02/06/2016 LUIS CARLOS RODRIGUEZ MD Ot 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 02/06/2016 LUIS CARLOS RODRIGUEZ MD Ot I50.22 CHRONIC SYSTOLIC (CONGESTIVE) HEART FAIL 02/06/2016 LUIS CARLOS RODRIGUEZ MD Ot I70.203 UNSP ATHSCL [place] [facility] 02/06/2016 LUIS CARLOS RODRIGUEZ MD Ot I70.92 CHRONIC TOTAL OCCLUSION OF ARTERY OF THE 02/06/2016 LUIS CARLOS RODRIGUEZ MD Ot J39.8 OTHER SPECIFIED DISEASES OF UPPER RESPIR 02/06/2016 LUIS CARLOS RODRIGUEZ MD, Ot L97.529 NON-PRESSURE CHRONIC ULCER OTH PRT LEFT 02/06/2016 LUIS CARLOS RODRIGUEZ MD, Ot N18.9 CHRONIC KIDNEY DISEASE, UNSPECIFIED 02/06/2016 LUIS CARLOS RODRIGUEZ MD, Ot Z79.4 MCC (CURRENT) USE OF INSULIN 02/06/2016 LUIS CARLOS RODRIGUEZ MD, Ot Z79.899 OTHER MCC (CURRENT) DRUG THERAPY 02/06/2016 LUIS CARLOS RODRIGUEZ MD, Ot Z95.1 PRESENCE OF AORTOCORONARY BYPASS GRAFT 02/08/2016 ASHUTOSH DAVENPORT AIRCRAFT PAINTER APPRENTICE Ot E11.621 TYPE 2 DIABETES MELLITUS WITH FOOT ULCER 02/08/2016 ASHUTOSH DAVENPORT APRN Ot L03.032 CELLULITIS OF LEFT TOE 02/12/2016 ASHUTOSH DAVENPORT APRN Ot E11.621 TYPE 2 DIABETES MELLITUS WITH FOOT ULCER 02/12/2016 ASHUTOSH DAVENPORT APRN Ot L03.032 CELLULITIS OF LEFT TOE 02/13/2016 ASHUTOSH DAVENPORT AIRCRAFT PAINTER APPRENTICE Ot E11.621 TYPE 2 DIABETES MELLITUS WITH FOOT ULCER 02/13/2016 ASHUTOSH DAVENPORT AIRCRAFT PAINTER APPRENTICE Ot L97.529 NON-PRESSURE CHRONIC ULCER OTH PRT LEFT 02/14/2016 ASHUTOSH DAVENPORT APRN Ot E11.621 TYPE 2 DIABETES MELLITUS WITH FOOT ULCER 02/14/2016 ASHUTOSH DAVENPORT AIRCRAFT PAINTER APPRENTICE Ot L97.529 NON-PRESSURE CHRONIC ULCER OTH PRT LEFT 02/20/2016 ASHUTOSH DAVENPORT AIRCRAFT PAINTER APPRENTICE Ot E11.621 TYPE 2 DIABETES MELLITUS WITH FOOT ULCER 02/20/2016 ASHUTOSH DAVENPORT APRN Ot L97.529 NON-PRESSURE CHRONIC ULCER OTH PRT LEFT 03/06/2016 ASHUTOSH DAVENPORT AIRCRAFT PAINTER APPRENTICE Ot E11.621 TYPE 2 DIABETES MELLITUS WITH FOOT ULCER 03/06/2016 ASHUTOSH DAVENPORT APRN Ot 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 03/06/2016 ASHUTOSH DAVENPORT APRN Ot L97.524 NON-PRS CHRONIC ULCER OTH PRT LEFT FOOT 03/06/2016 ASHUTOSH DAVENPORT AIRCRAFT PAINTER APPRENTICE Ot T86.821 SKIN GRAFT (ALLOGRAFT) (AUTOGRAFT) FAILU 03/06/2016 ASHUTOSH DAVENPORT AIRCRAFT PAINTER APPRENTICE Ot E11.621 TYPE 2 DIABETES MELLITUS WITH FOOT ULCER 03/06/2016 ASHUTOSH DAVENPORT AIRCRAFT PAINTER APPRENTICE Ot L97.529 NON-PRESSURE CHRONIC ULCER OTH PRT LEFT 03/07/2016 ASHUTOSH DAVENPORT AIRCRAFT PAINTER APPRENTICE Ot E11.621 TYPE 2 DIABETES MELLITUS WITH FOOT ULCER 03/07/2016 ASHUTOSH DAVENPORT AIRCRAFT PAINTER APPRENTICE Ot 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 03/07/2016 ASHUTOSH DAVENPORT AIRCRAFT PAINTER APPRENTICE Ot L97.524 NON-PRS CHRONIC ULCER OTH PRT LEFT FOOT 03/07/2016 ASHUTOSH DAVENPORT AIRCRAFT PAINTER APPRENTICE Ot T86.821 SKIN GRAFT (ALLOGRAFT) (AUTOGRAFT) FAILU 03/13/2016 LUIS CARLOS RODRIGUEZ MD Ot 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 03/13/2016 LUIS CARLOS RODRIGUEZ MD, Ot E78.5 HYPERLIPIDEMIA, UNSPECIFIED 03/13/2016 LUIS CARLOS RODRIGUEZ MD Ot I12.9 HYPERTENSIVE CHRONIC KIDNEY DISEASE W ST 03/13/2016 LUIS CARLOS RODRIGUEZ MD Ot I25.10 ATHSCL HEART DISEASE OF [place] CORONARY 03/13/2016 LUIS CARLOS RODRIGUEZ MD Ot 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 03/13/2016 LUIS CARLOS RODRIGUEZ MD Ot I50.42 CHRONIC COMBINED SYSTOLIC AND DIASTOLIC 03/13/2016 LUIS CARLOS RODRIGUEZ MD Ot I70.203 UNSP ATHSCL [place] ARTERIES OF EXTREMITI 03/13/2016 LUIS CARLOS RODRIGUEZ MD Ot N18.9 CHRONIC KIDNEY DISEASE, UNSPECIFIED 03/13/2016 LUIS CARLOS RODRIGUEZ MD Ot Z79.899 OTHER ANNUAL GIVING DIRECTOR (CURRENT) DRUG THERAPY 03/13/2016 LUIS CARLOS RODRIGUEZ MD Ot Z86.718 PERSONAL HISTORY OF OTHER VENOUS THROMBO 03/13/2016 LUIS CARLOS RODRIGUEZ MD Ot Z89.422 ACQUIRED ABSENCE OF OTHER LEFT TOE(S) 03/13/2016 LUIS CARLOS RODRIGUEZ MD Ot Z95.1 PRESENCE OF AORTOCORONARY BYPASS GRAFT 03/13/2016 LUIS CARLOS RODRIGUEZ MD Ot Z95.5 PRESENCE OF CORONARY ANGIOPLASTY IMPLANT 03/18/2016 LUIS CARLOS RODRIGUEZ MD Ot 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 03/18/2016 LUIS CARLOS RODRIGUEZ MD Ot E78.5 HYPERLIPIDEMIA, UNSPECIFIED 03/18/2016 LUIS CARLOS RODRIGUEZ MD Ot I12.9 HYPERTENSIVE CHRONIC KIDNEY DISEASE W ST 03/18/2016 LUIS CARLOS RODRIGUEZ MD, Ot I25.10 ATHSCL HEART DISEASE OF [place] CORONARY 03/18/2016 LUIS CARLOS RODRIGUEZ MD, Ot 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 03/18/2016 LUIS CARLOS RODRIGUEZ MD, Ot I50.42 CHRONIC COMBINED SYSTOLIC AND DIASTOLIC 03/18/2016 LUIS CARLOS RODRIGUEZ MD Ot I70.203 UNSP ATHSCL [place] ARTERIES OF EXTREMITI 03/18/2016 LUIS CARLOS RODRIGUEZ MD, Ot N18.9 CHRONIC KIDNEY DISEASE, UNSPECIFIED 03/18/2016 LUIS CARLOS RODRIGUEZ MD, Ot Z79.899 OTHER ANNUAL GIVING DIRECTOR (CURRENT) DRUG THERAPY 03/18/2016 LUIS CARLOS RODRIGUEZ MD, Ot Z86.718 PERSONAL HISTORY OF OTHER VENOUS THROMBO 03/18/2016 LUIS CARLOS RODRIGUEZ MD Ot Z89.422 ACQUIRED ABSENCE OF OTHER LEFT TOE(S) 03/18/2016 LUIS CARLOS RODRIGUEZ MD, Ot Z95.1 PRESENCE OF AORTOCORONARY BYPASS GRAFT 03/18/2016 LUIS CARLOS RODRIGUEZ MD, Ot Z95.5 PRESENCE OF CORONARY ANGIOPLASTY IMPLANT 03/20/2016 ASHUTOSH DAVENPORT APRN Ot E11.621 TYPE 2 DIABETES MELLITUS WITH FOOT ULCER 03/20/2016 ASHUTOSH DAVENPORT APRN Ot 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 03/20/2016 ASHUTOSH DAVENPORT APRN Ot L97.524 NON-PRS CHRONIC ULCER OTH PRT LEFT FOOT 03/20/2016 ASHUTOSH DAVENPORT APRN Ot T86.821 SKIN GRAFT (ALLOGRAFT) (AUTOGRAFT) FAILU 03/21/2016 ASHUTOSH DAVENPORT APRN Ot E11.621 TYPE 2 DIABETES MELLITUS WITH FOOT ULCER 03/21/2016 ASHUTOSH DAVENPORT APRN Ot 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 03/21/2016 ASHUTOSH DAVENPORT APRN Ot L97.524 NON-PRS CHRONIC ULCER OTH PRT LEFT FOOT 03/21/2016 ASHUTOSH DAVENPORT APRN Ot T86.821 SKIN GRAFT (ALLOGRAFT) (AUTOGRAFT) FAILU 03/22/2016 ASHUTOSH DAVENPORT AIRCRAFT PAINTER APPRENTICE Ot E11.621 TYPE 2 DIABETES MELLITUS WITH FOOT ULCER 03/22/2016 ASHUTOSH DAVENPORT AIRCRAFT PAINTER APPRENTICE Ot 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 03/22/2016 ASHUTOSH DAVENPORT AIRCRAFT PAINTER APPRENTICE Ot L97.524 NON-PRS CHRONIC ULCER OTH PRT LEFT FOOT 03/22/2016 ASHUTOSH DAVENPORT AIRCRAFT PAINTER APPRENTICE Ot T86.821 SKIN GRAFT (ALLOGRAFT) (AUTOGRAFT) FAILU 03/22/2016 ASHUTOSH DAVENPORT AIRCRAFT PAINTER APPRENTICE Ot E11.621 TYPE 2 DIABETES MELLITUS WITH FOOT ULCER 03/22/2016 ASHUTOSH DAVENPORT AIRCRAFT PAINTER APPRENTICE Ot 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 03/22/2016 ASHUTOSH DAVENPORT AIRCRAFT PAINTER APPRENTICE Ot L97.524 NON-PRS CHRONIC ULCER OTH PRT LEFT FOOT 03/22/2016 ASHUTOSH DAVENPORT AIRCRAFT PAINTER APPRENTICE Ot T86.821 SKIN GRAFT (ALLOGRAFT) (AUTOGRAFT) FAILU 03/23/2016 ASHUTOSH DAVENPORT AIRCRAFT PAINTER APPRENTICE Ot E11.621 TYPE 2 DIABETES MELLITUS WITH FOOT ULCER 03/23/2016 ASHUTOSH DAVENPORT AIRCRAFT PAINTER APPRENTICE Ot 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 03/23/2016 ASHUTOSH DAVENPORT AIRCRAFT PAINTER APPRENTICE Ot L97.524 NON-PRS CHRONIC ULCER OTH PRT LEFT FOOT 03/23/2016 ASHUTOSH DAVENPORT AIRCRAFT PAINTER APPRENTICE Ot T86.821 SKIN GRAFT (ALLOGRAFT) (AUTOGRAFT) FAILU 03/23/2016 ASHUTOSH DAVENPORT AIRCRAFT PAINTER APPRENTICE Ot E11.621 TYPE 2 DIABETES MELLITUS WITH FOOT ULCER 03/23/2016 ASHUTOSH DAVENPORT AIRCRAFT PAINTER APPRENTICE Ot 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 03/23/2016 ASHUTOSH DAVENPORT AIRCRAFT PAINTER APPRENTICE Ot L97.524 NON-PRS CHRONIC ULCER OTH PRT LEFT FOOT 03/23/2016 ASHUTOSH DAVENPORT AIRCRAFT PAINTER APPRENTICE Ot T86.821 SKIN GRAFT (ALLOGRAFT) (AUTOGRAFT) FAILU 03/24/2016 ASHUTOSH DAVENPORT AIRCRAFT PAINTER APPRENTICE Ot E11.621 TYPE 2 DIABETES MELLITUS WITH FOOT ULCER 03/24/2016 ASHUTOSH DAVENPORT AIRCRAFT PAINTER APPRENTICE Ot 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 03/24/2016 ASHUTOSH DAVENPORT AIRCRAFT PAINTER APPRENTICE Ot L97.524 NON-PRS CHRONIC ULCER OTH PRT LEFT FOOT 03/24/2016 ASHUTOSH DAVENPORT AIRCRAFT PAINTER APPRENTICE Ot T86.821 SKIN GRAFT (ALLOGRAFT) (AUTOGRAFT) FAILU 03/25/2016 ASHUTOSH DAVENPORT AIRCRAFT PAINTER APPRENTICE Ot E11.621 TYPE 2 DIABETES MELLITUS WITH FOOT ULCER 03/25/2016 ASHUTOSH DAVENPORT AIRCRAFT PAINTER APPRENTICE Ot 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 03/25/2016 ASHUTOSH DAVENPORT AIRCRAFT PAINTER APPRENTICE Ot L97.524 NON-PRS CHRONIC ULCER OTH PRT LEFT FOOT 03/25/2016 ASHUTOSH DAVENPORT AIRCRAFT PAINTER APPRENTICE Ot T86.821 SKIN GRAFT (ALLOGRAFT) (AUTOGRAFT) FAILU 03/26/2016 ASHUTOSH DAVENPORT AIRCRAFT PAINTER APPRENTICE Ot E11.621 TYPE 2 DIABETES MELLITUS WITH FOOT ULCER 03/26/2016 ASHUTOSH DAVENPORT AIRCRAFT PAINTER APPRENTICE Ot 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 03/26/2016 ASHUTOSH DAVENPORT AIRCRAFT PAINTER APPRENTICE Ot L97.524 NON-PRS CHRONIC ULCER OTH PRT LEFT FOOT 03/26/2016 ASHUTOSH DAVENPORT AIRCRAFT PAINTER APPRENTICE Ot T86.821 SKIN GRAFT (ALLOGRAFT) (AUTOGRAFT) FAILU 03/26/2016 ASHUTOSH DAVENPORT AIRCRAFT PAINTER APPRENTICE Ot E11.621 TYPE 2 DIABETES MELLITUS WITH FOOT ULCER 03/26/2016 ASHUTOSH DAVENPORT AIRCRAFT PAINTER APPRENTICE Ot 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 03/26/2016 ASHUTOSH DAVENPORT AIRCRAFT PAINTER APPRENTICE Ot L97.524 NON-PRS CHRONIC ULCER OTH PRT LEFT FOOT 03/26/2016 ASHUTOSH DAVENPORT AIRCRAFT PAINTER APPRENTICE Ot T86.821 SKIN GRAFT (ALLOGRAFT) (AUTOGRAFT) FAILU 03/26/2016 ASHUTOSH DAVENPORT AIRCRAFT PAINTER APPRENTICE Ot E11.621 TYPE 2 DIABETES MELLITUS WITH FOOT ULCER 03/26/2016 ASHUTOSH DAVENPORT AIRCRAFT PAINTER APPRENTICE Ot 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 03/26/2016 ASHUTOSH DAVENPORT AIRCRAFT PAINTER APPRENTICE Ot L97.524 NON-PRS CHRONIC ULCER OTH PRT LEFT FOOT 03/26/2016 ASHUTOSH DAVENPORT AIRCRAFT PAINTER APPRENTICE Ot T86.821 SKIN GRAFT (ALLOGRAFT) (AUTOGRAFT) FAILU 03/27/2016 ASHUTOSH DAVENPORT AIRCRAFT PAINTER APPRENTICE Ot E11.621 TYPE 2 DIABETES MELLITUS WITH FOOT ULCER 03/27/2016 ASHUTOSH DAVENPORT AIRCRAFT PAINTER APPRENTICE Ot 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 03/27/2016 ASHUTOSH DAVENPORT AIRCRAFT PAINTER APPRENTICE Ot L97.524 NON-PRS CHRONIC ULCER OTH PRT LEFT FOOT 03/27/2016 ASHUTOSH DAVENPORT APRN Ot T86.821 SKIN GRAFT (ALLOGRAFT) (AUTOGRAFT) FAILU 03/27/2016 ASHUTOSH DAVENPORT AIRCRAFT PAINTER APPRENTICE Ot E11.621 TYPE 2 DIABETES MELLITUS WITH FOOT ULCER 03/27/2016 ASHUTOSH DAVENPORT AIRCRAFT PAINTER APPRENTICE Ot 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 03/27/2016 ASHUTOSH DAVENPORT AIRCRAFT PAINTER APPRENTICE Ot L97.524 NON-PRS CHRONIC ULCER OTH PRT LEFT FOOT 03/27/2016 ASHUTOSH DAVENPORT APRN Ot T86.821 SKIN GRAFT (ALLOGRAFT) (AUTOGRAFT) FAILU 03/28/2016 ASHUTOSH DAVENPORT AIRCRAFT PAINTER APPRENTICE Ot E11.621 TYPE 2 DIABETES MELLITUS WITH FOOT ULCER 03/28/2016 ASHUTOSH DAVENPORT APRN Ot 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 03/28/2016 ASHUTOSH DAVENPORT AIRCRAFT PAINTER APPRENTICE Ot L97.524 NON-PRS CHRONIC ULCER OTH PRT LEFT FOOT 03/28/2016 ASHUTOSH DAVENPORT AIRCRAFT PAINTER APPRENTICE Ot T86.821 SKIN GRAFT (ALLOGRAFT) (AUTOGRAFT) FAILU 03/29/2016 ASHUTOSH DAVENPORT AIRCRAFT PAINTER APPRENTICE Ot E11.621 TYPE 2 DIABETES MELLITUS WITH FOOT ULCER 03/29/2016 ASHUTOSH DAVENPORT AIRCRAFT PAINTER APPRENTICE Ot 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 03/29/2016 ASHUTOSH DAVENPORT AIRCRAFT PAINTER APPRENTICE Ot L97.524 NON-PRS CHRONIC ULCER OTH PRT LEFT FOOT 03/29/2016 ASHUTOSH DAVENPORT AIRCRAFT PAINTER APPRENTICE Ot T86.821 SKIN GRAFT (ALLOGRAFT) (AUTOGRAFT) FAILU 03/30/2016 ASHUTOSH DAVENPORT AIRCRAFT PAINTER APPRENTICE Ot E11.621 TYPE 2 DIABETES MELLITUS WITH FOOT ULCER 03/30/2016 ASHUTOSH DAVENPORT AIRCRAFT PAINTER APPRENTICE Ot 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821 SKIN GRAFT (ALLOGRAFT) (AUTOGRAFT) FAILU 04/03/2016 ASHUTOSH DAVENPORT AIRCRAFT PAINTER APPRENTICE Ot E11.621 TYPE 2 DIABETES MELLITUS WITH FOOT ULCER 04/03/2016 ASHUTOSH DAVENPORT AIRCRAFT PAINTER APPRENTICE Ot 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 04/03/2016 ASHUTOSH DAVENPORT AIRCRAFT PAINTER APPRENTICE Ot L97.524 NON-PRS CHRONIC ULCER OTH PRT LEFT FOOT 04/03/2016 ASHUTOSH DAVENPORT AIRCRAFT PAINTER APPRENTICE Ot T86.821 SKIN GRAFT (ALLOGRAFT) (AUTOGRAFT) FAILU 04/03/2016 ASHUTOSH DAVENPORT AIRCRAFT PAINTER APPRENTICE Ot E11.621 TYPE 2 DIABETES MELLITUS WITH FOOT ULCER 04/03/2016 ASHUTOSH DAVENPORT AIRCRAFT PAINTER APPRENTICE Ot 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 04/03/2016 ASHUTOSH DAVENPORT AIRCRAFT PAINTER APPRENTICE Ot L97.524 NON-PRS CHRONIC ULCER OTH PRT LEFT FOOT 04/03/2016 ASHUTOSH DAVENPORT AIRCRAFT PAINTER APPRENTICE Ot T86.821 SKIN GRAFT (ALLOGRAFT) (AUTOGRAFT) FAILU 04/07/2016 ASHUTOSH DAVENPORT AIRCRAFT PAINTER APPRENTICE Ot E11.621 TYPE 2 DIABETES MELLITUS WITH FOOT ULCER 04/07/2016 ASHUTOSH DAVENPORT AIRCRAFT PAINTER APPRENTICE Ot 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 04/07/2016 ASHUTOSH DAVENPORT AIRCRAFT PAINTER APPRENTICE Ot L97.524 NON-PRS CHRONIC ULCER OTH PRT LEFT FOOT 04/07/2016 ASHUTOSH DAVENPORT AIRCRAFT PAINTER APPRENTICE Ot T86.821 SKIN GRAFT (ALLOGRAFT) (AUTOGRAFT) FAILU 04/07/2016 ASHUTOSH DAVENPORT AIRCRAFT PAINTER APPRENTICE Ot E11.621 TYPE 2 DIABETES MELLITUS WITH FOOT ULCER 04/07/2016 ASHUTOSH DAVENPORT AIRCRAFT PAINTER APPRENTICE Ot 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 04/07/2016 ASHUTOSH DAVENPORT AIRCRAFT PAINTER APPRENTICE Ot L97.524 NON-PRS CHRONIC ULCER OTH PRT LEFT FOOT 04/07/2016 ASHUTOSH DAVENPORT AIRCRAFT PAINTER APPRENTICE Ot T86.821 SKIN GRAFT (ALLOGRAFT) (AUTOGRAFT) FAILU 04/08/2016 ASHUTOSH DAVENPORT AIRCRAFT PAINTER APPRENTICE Ot E11.621 TYPE 2 DIABETES MELLITUS WITH FOOT ULCER 04/08/2016 ASHUTOSH DAVENPORT AIRCRAFT PAINTER APPRENTICE Ot L97.529 NON-PRESSURE CHRONIC ULCER OTH PRT LEFT 04/17/2016 ASHUTOSH DAVENPORT AIRCRAFT PAINTER APPRENTICE Ot E11.621 TYPE 2 DIABETES MELLITUS WITH FOOT ULCER 04/17/2016 ASHUTOSH DAVENPORT AIRCRAFT PAINTER APPRENTICE Ot 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 04/17/2016 ASHUTOSH DAVENPORT AIRCRAFT PAINTER APPRENTICE Ot L97.524 NON-PRS CHRONIC ULCER OTH PRT LEFT FOOT 04/17/2016 ASHUTOSH DAVENPORT AIRCRAFT PAINTER APPRENTICE Ot T86.821 SKIN GRAFT (ALLOGRAFT) (AUTOGRAFT) FAILU 04/22/2016 ASHUTOSH DAVENPORT AIRCRAFT PAINTER APPRENTICE Ot E11.621 TYPE 2 DIABETES MELLITUS WITH FOOT ULCER 04/22/2016 ASHUTOSH DAVENPORT AIRCRAFT PAINTER APPRENTICE Ot 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 04/22/2016 ASHUTOSH DAVENPORT AIRCRAFT PAINTER APPRENTICE Ot L97.524 NON-PRS CHRONIC ULCER OTH PRT LEFT FOOT 04/22/2016 ASHUTOSH DAVENPORT AIRCRAFT PAINTER APPRENTICE Ot T86.821 SKIN GRAFT (ALLOGRAFT) (AUTOGRAFT) FAILU 04/23/2016 ASHUTOSH DAVENPORT AIRCRAFT PAINTER APPRENTICE Ot E11.621 TYPE 2 DIABETES MELLITUS WITH FOOT ULCER 04/23/2016 ASHUTOSH DAVENPORT AIRCRAFT PAINTER APPRENTICE Ot 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 04/23/2016 ASHUTOSH DAVENPORT AIRCRAFT PAINTER APPRENTICE Ot L97.524 NON-PRS CHRONIC ULCER OTH PRT LEFT FOOT 04/23/2016 ASHUTOSH DAVENPORT AIRCRAFT PAINTER APPRENTICE Ot T86.821 SKIN GRAFT (ALLOGRAFT) (AUTOGRAFT) FAILU 04/25/2016 ASHUTOSH DAVENPORT AIRCRAFT PAINTER APPRENTICE Ot E11.621 TYPE 2 DIABETES MELLITUS WITH FOOT ULCER 04/25/2016 ASHUTOSH DAVENPORT AIRCRAFT PAINTER APPRENTICE Ot 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 04/25/2016 ASHUTOSH DAVENPORT AIRCRAFT PAINTER APPRENTICE Ot L97.524 NON-PRS CHRONIC ULCER OTH PRT LEFT FOOT 04/25/2016 ASHUTOSH DAVENPORT AIRCRAFT PAINTER APPRENTICE Ot T86.821 SKIN GRAFT (ALLOGRAFT) (AUTOGRAFT) FAILU 04/28/2016 ASHUTOSH DAVENPORT AIRCRAFT PAINTER APPRENTICE Ot E11.621 TYPE 2 DIABETES MELLITUS WITH FOOT ULCER 04/28/2016 ASHUTOSH DAVENPORT AIRCRAFT PAINTER APPRENTICE Ot 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 04/28/2016 ASHUTOSH DAVENPORT AIRCRAFT PAINTER APPRENTICE Ot L97.524 NON-PRS CHRONIC ULCER OTH PRT LEFT FOOT 04/28/2016 ASHUTOSH DAVENPORT AIRCRAFT PAINTER APPRENTICE Ot T86.821 SKIN GRAFT (ALLOGRAFT) (AUTOGRAFT) FAILU 04/28/2016 ASHUTOSH DAVENPORT AIRCRAFT PAINTER APPRENTICE Ot E11.621 TYPE 2 DIABETES MELLITUS WITH FOOT ULCER 04/28/2016 ASHUTOSH DAVENPORT AIRCRAFT PAINTER APPRENTICE Ot 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 04/28/2016 ASHUTOSH DAVENPORT AIRCRAFT PAINTER APPRENTICE Ot L97.524 NON-PRS CHRONIC ULCER OTH PRT LEFT FOOT 04/28/2016 ASHUTOSH DAVENPORT AIRCRAFT PAINTER APPRENTICE Ot T86.821 SKIN GRAFT (ALLOGRAFT) (AUTOGRAFT) FAILU 04/28/2016 ASHUTOSH DAVENPORT AIRCRAFT PAINTER APPRENTICE Ot E11.621 TYPE 2 DIABETES MELLITUS WITH FOOT ULCER 04/28/2016 ASHUTOSH DAVENPORT AIRCRAFT PAINTER APPRENTICE Ot 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 04/28/2016 ASHUTOSH DAVENPORT AIRCRAFT PAINTER APPRENTICE Ot L97.524 NON-PRS CHRONIC ULCER OTH PRT LEFT FOOT 04/28/2016 ASHUTOSH DAVENPORT R AIRCRAFT PAINTER APPRENTICE Ot T86.821 SKIN GRAFT (ALLOGRAFT) (AUTOGRAFT) FAILU 05/20/2016 ASHUTOSH DAVENPORT AIRCRAFT PAINTER APPRENTICE Ot E11.621 TYPE 2 DIABETES MELLITUS WITH FOOT ULCER 05/20/2016 ASHUTOSH DAVENPORT AIRCRAFT PAINTER APPRENTICE Ot 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 05/20/2016 ASHUTOSH DAVENPORT AIRCRAFT PAINTER APPRENTICE Ot L97.524 NON-PRS CHRONIC ULCER OTH PRT LEFT FOOT 05/20/2016 ASHUTOSH DAVENPORT AIRCRAFT PAINTER APPRENTICE Ot T86.821 SKIN GRAFT (ALLOGRAFT) (AUTOGRAFT) FAILU 06/17/2016 ASHUTOSH DAVENPORT AIRCRAFT PAINTER APPRENTICE Ot E11.621 TYPE 2 DIABETES MELLITUS WITH FOOT ULCER 06/17/2016 ASHUTOSH DAVENPORT AIRCRAFT PAINTER APPRENTICE Ot 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821 SKIN GRAFT (ALLOGRAFT) (AUTOGRAFT) FAILU 07/29/2016 Ot 397.0 TRICUSPID VALVE DISEASE 07/29/2016 Ot 401.9 HYPERTENSION NOS 07/29/2016 Ot 414.00 CORON ATHEROSCLER NOS TYPE VESSEL, NATIV 07/29/2016 Ot 424.0 MITRAL VALVE DISORDER 07/29/2016 Ot 790.99 BLOOD EXAM - OT NONSPECIFIC FINDINGS 07/29/2016 Ot 491.9 CHRONIC BRONCHITIS NOS 07/29/2016 Ot 519.11 ACUTE BRONCHOSPASM 07/29/2016 Ot 786.09 RESPIRATORY ABNORM NEC 07/29/2016 Ot 786.2 COUGH 07/29/2016 Ot 414.00 CORON ATHEROSCLER NOS TYPE VESSEL, NATIV 07/29/2016 Ot 428.0 CONGESTIVE HEART FAILURE NOS 07/29/2016 Ot 272.4 HYPERLIPIDEMIA NEC/NOS 07/29/2016 Ot 401.9 HYPERTENSION NOS 07/29/2016 Ot 414.00 CORON ATHEROSCLER NOS TYPE VESSEL, NATIV 07/29/2016 Ot 459.81 VENOUS INSUFFICIENCY NOS 07/29/2016 Ot V58.81 FIT/ADJ VASCULAR CATHETER 07/29/2016 Ot 786.05 SHORTNESS OF BREATH 07/29/2016 Ot 786.1 STRIDOR 07/29/2016 Ot 793.19 OTHER NONSPECIFIC ABNORMAL FINDING OF [place]RIST[place] 07/29/2016 Ot 459.81 VENOUS INSUFFICIENCY NOS 07/29/2016 Ot V72.63 PRE-PROCEDURAL LABORATORY EXAMINATION 07/29/2016 Ot V74.8 SCREEN-BACTERIAL DIS NEC 07/29/2016 LUIS CARLOS RODRIGUEZ MD Ot 250.00 DIAB KALA WO COMPL, TYPE II OR UNSPEC TY 07/29/2016 LUIS CARLOS RODRIGUEZ MD Ot 414.00 CORON ATHEROSCLER NOS TYPE VESSEL, NATIV 07/29/2016 LUIS CARLOS RODRIGUEZ MD Ot 428.0 CONGESTIVE HEART FAILURE NOS 07/29/2016 LUIS CARLOS RODRIGUEZ MD Ot 453.40 ACUTE VENOUS EMBOLISM THROMBOSIS UNSP 07/29/2016 LUIS CARLOS RODRIGUEZ MD Ot 530.81 ESOPHAGEAL REFLUX 07/29/2016 LUIS CARLOS RODRIGUEZ MD Ot 585.9 CHRONIC KIDNEY DISEASE, UNSPECIFIED 07/29/2016 LUIS CARLOS RODRIGUEZ MD Ot 250.00 DIAB KALA WO COMPL, TYPE II OR UNSPEC TY 07/29/2016 LUIS CARLOS RODRIGUEZ MD Ot 397.0 TRICUSPID VALVE DISEASE 07/29/2016 LUIS CARLOS RODRIGUEZ MD Ot 414.00 CORON ATHEROSCLER NOS TYPE VESSEL, NATIV 07/29/2016 LUIS CARLOS RODRIGUEZ MD Ot 424.0 MITRAL VALVE DISORDER 07/29/2016 LUIS CARLOS RODRIGUEZ MD Ot 428.0 CONGESTIVE HEART FAILURE NOS 07/29/2016 LUIS CARLOS RODRIGUEZ MD Ot 453.40 ACUTE VENOUS EMBOLISM THROMBOSIS UNSP 07/29/2016 LUIS CARLOS RODRIGUEZ MD Ot 530.81 ESOPHAGEAL REFLUX 07/29/2016 LUIS CARLOS RODRIGUEZ MD Ot 585.9 CHRONIC KIDNEY DISEASE, UNSPECIFIED 07/29/2016 LUIS CARLOS RODRIGUEZ MD Ot 618.01 CYSTOCELE, MIDLINE 07/29/2016 EMMA PINZON REFERENCE LIBRARIAN Ot 564.00 UNSPEC CONSTIPATION 07/29/2016 EMMA PINZON REFERENCE LIBRARIAN Ot 789.00 ABDOMINAL PAIN, UNSPECIFIED SITE 07/29/2016 JORGE ESCOBAR Ot 272.4 HYPERLIPIDEMIA NEC/NOS 07/29/2016 JORGE ESCOBAR Ot 401.9 HYPERTENSION NOS 07/29/2016 JORGE ESCOBAR Ot 414.00 CORON ATHEROSCLER NOS TYPE VESSEL, NATIV 07/29/2016 JORGE ESCOBAR K Ot 428.0 CONGESTIVE HEART FAILURE NOS 07/29/2016 MICHAEL BOB, LUIS CARLOS Lu Ot 272.4 HYPERLIPIDEMIA NEC/NOS 07/29/2016 MICHAEL BOB, LUIS CARLOS Lu Ot 401.9 HYPERTENSION NOS 07/29/2016 MICHAEL BOB, LUIS CARLOS Lu Ot 414.00 CORON ATHEROSCLER NOS TYPE VESSEL, NATIV 07/29/2016 MICHAEL BOB, LUIS CARLOS Lu Ot 428.0 CONGESTIVE HEART FAILURE NOS 07/29/2016 JORGE ESCOBAR Ot 272.4 HYPERLIPIDEMIA NEC/NOS 07/29/2016 JORGE ESCOBAR K Ot 401.9 HYPERTENSION NOS 07/29/2016 JORGE ESCOBAR K Ot 414.00 CORON ATHEROSCLER NOS TYPE VESSEL, NATIV 07/29/2016 JORGE ESCOBAR Ot 428.0 CONGESTIVE HEART FAILURE NOS 07/29/2016 SURY BOB, ANTWAN Bond Ot V72.84 EXAM PRE-OPERATIVE NOS 07/29/2016 EMMA PINZON Ot Z12.31 ENCNTR SCREEN MAMMOGRAM FOR MALIGNANT NE 07/29/2016 ASHUTOSH DAVENPORT APRN Ot E11.621 TYPE 2 DIABETES MELLITUS WITH FOOT ULCER 07/29/2016 ASHUTOSH DAVENPORT APRN Ot L03.032 CELLULITIS OF LEFT TOE 07/29/2016 ASHUTOSH DAVENPORT APRN Ot E11.621 TYPE 2 DIABETES MELLITUS WITH FOOT ULCER 07/29/2016 ASHUTOSH DAVENPORT APRN Ot L97.529 NON-PRESSURE CHRONIC ULCER OTH PRT LEFT 07/29/2016 ASHUTOSH DAVENPORT APRN Ot E11.621 TYPE 2 DIABETES MELLITUS WITH FOOT ULCER 07/29/2016 ASHUTOSH DAVENPORT APRN Ot 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 07/29/2016 ASHUTOSH DAVENPORT APRN Ot L97.524 NON-PRS CHRONIC ULCER OTH PRT LEFT FOOT 07/29/2016 ASHUTOSH DAVENPORT APRN Ot T86.821 SKIN GRAFT (ALLOGRAFT) (AUTOGRAFT) FAILU 07/29/2016 ASHUTOSH DAVENPORT APRN Ot E11.621 TYPE 2 DIABETES MELLITUS WITH FOOT ULCER 07/29/2016 ASHUTOSH DAVENPORT APRN Ot 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 07/29/2016 ASHUTOSH DAVENPORT APRN Ot L97.524 NON-PRS CHRONIC ULCER OTH PRT LEFT FOOT 07/29/2016 ASHUTOSH DAVENPORT APRN Ot T86.821 SKIN GRAFT (ALLOGRAFT) (AUTOGRAFT) FAILU 07/30/2016 PRABHA HILL MIKHAIL Ot M54.12 RADICULOPATHY, CERVICAL REGION 08/18/2016 ED KENNEDY APRN Ot E11.9 TYPE 2 DIABETES MELLITUS WITHOUT COMPLIC 08/18/2016 ED KENNEDY APRN Ot H72.91 UNSPECIFIED PERFORATION OF TYMPANIC MEMB 08/18/2016 ED KENNEDY APRN Ot H92.21 OTORRHAGIA, RIGHT EAR 08/18/2016 ED KENNEDY APRN Ot I10 ESSENTIAL (PRIMARY) HYPERTENSION 08/18/2016 ED KENNEDY APRN Ot Z79.02 ANNUAL GIVING DIRECTOR (CURRENT) USE OF ANTITHROMBOTI 08/18/2016 ED KENNEDY APRN Ot 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 08/18/2016 ED KENNEDY APRN Ot Z79.82 ANNUAL GIVING DIRECTOR (CURRENT) USE OF ASPIRIN 08/18/2016 ED KENNEDY APRN Ot Z79.84 ANNUAL GIVING DIRECTOR (CURRENT) USE OF ORAL HYPOGLYC 08/18/2016 ED KENNEDY APRN Ot Z79.899 OTHER M[facility] (CURRENT) DRUG THERAPY 08/18/2016 ED KENNEDY APRN Ot Z96.22 MYRINGOTOMY TUBE(S) STATUS 08/19/2016 ED KENNEDY APRN Ot E11.9 TYPE 2 DIABETES MELLITUS WITHOUT COMPLIC 08/19/2016 ED KENNEDY APRN Ot H72.91 UNSPECIFIED PERFORATION OF TYMPANIC MEMB 08/19/2016 ED KENNEDY APRN Ot H92.21 OTORRHAGIA, RIGHT EAR 08/19/2016 ED KENNEDY APRN Ot I10 ESSENTIAL (PRIMARY) HYPERTENSION 08/19/2016 ED KENNEDY APRN Ot Z79.02 ANNUAL GIVING DIRECTOR (CURRENT) USE OF ANTITHROMBOTI 08/19/2016 ED KENNEDY APRN Ot 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 08/19/2016 ED KENNEDY APRN Ot Z79.82 MCC (CURRENT) USE OF ASPIRIN 08/19/2016 ED KENNEDY APRN Ot Z79.84 MCC (CURRENT) USE OF ORAL HYPOGLYC 08/19/2016 ED KENNEDY APRN Ot Z79.899 OTHER MCC (CURRENT) DRUG THERAPY 08/19/2016 ED KENNEDY APRN Ot Z96.22 MYRINGOTOMY TUBE(S) STATUS 08/24/2016 ED KENNEDY APRN Ot E11.9 TYPE 2 DIABETES MELLITUS WITHOUT COMPLIC 08/24/2016 ED KENNEDY APRN Ot H72.91 UNSPECIFIED PERFORATION OF TYMPANIC MEMB 08/24/2016 ED KENNEDY APRN Ot H92.21 OTORRHAGIA, RIGHT EAR 08/24/2016 ED KENNEDY APRN Ot I10 ESSENTIAL (PRIMARY) HYPERTENSION 08/24/2016 ED KENNEDY APRN Ot Z79.02 MCC (CURRENT) USE OF ANTITHROMBOTI 08/24/2016 ED KENNEDY APRN Ot Z79.4 MCC (CURRENT) USE OF INSULIN 08/24/2016 ED KENNEDY APRN Ot Z79.82 MCC (CURRENT) USE OF ASPIRIN 08/24/2016 ED KENNEDY APRN Ot Z79.84 ANNUAL GIVING DIRECTOR (CURRENT) USE OF ORAL HYPOGLYC 08/24/2016 ED KENNEDY APRN Ot Z79.899 OTHER ANNUAL GIVING DIRECTOR (CURRENT) DRUG THERAPY 08/24/2016 ED KENNEDY APRN Ot Z96.22 MYRINGOTOMY TUBE(S) STATUS 08/28/2016 LUIS CARLOS RODRIGUEZ MD Ot E11.9 TYPE 2 DIABETES MELLITUS WITHOUT COMPLIC 08/28/2016 LUIS CARLOS RODRIGUEZ MD Ot E78.5 HYPERLIPIDEMIA, UNSPECIFIED 08/28/2016 LUIS CARLOS RODRIGUEZ MD Ot I10 ESSENTIAL (PRIMARY) HYPERTENSION 08/28/2016 LUIS CARLOS RODRIGUEZ MD Ot I50.22 CHRONIC SYSTOLIC (CONGESTIVE) HEART FAIL 08/28/2016 LUIS CARLOS RODRIGUEZ MD Ot I70.0 ATHEROSCLEROSIS OF AORTA 08/28/2016 LUIS CARLOS RODRIGUEZ MD Ot 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 08/28/2016 LUIS CARLOS RODRIGUEZ MD Ot I70.92 CHRONIC TOTAL OCCLUSION OF ARTERY OF THE 08/28/2016 LUIS CARLOS RODRIGUEZ MD Ot 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 08/28/2016 LUIS CARLOS RODRIGUEZ MD Ot Z79.899 OTHER MCC (CURRENT) DRUG THERAPY 08/28/2016 LUIS CARLOS RODRIGUEZ MD Ot Z86.711 PERSONAL HISTORY OF PULMONARY EMBOLISM 08/28/2016 LUIS CARLOS RODRIGUEZ MD Ot Z95.1 PRESENCE OF AORTOCORONARY BYPASS GRAFT 08/28/2016 LUIS CARLOS RODRIGUEZ MD Ot Z95.5 PRESENCE OF CORONARY ANGIOPLASTY IMPLANT 08/28/2016 PRABHA HILL Ot M54.12 RADICULOPATHY, CERVICAL REGION 09/04/2016 LUIS CARLOS RODRIGUEZ MD Ot E11.9 TYPE 2 DIABETES MELLITUS WITHOUT COMPLIC 09/04/2016 LUIS CARLOS RODRIGUEZ MD Ot E78.5 HYPERLIPIDEMIA, UNSPECIFIED 09/04/2016 LUIS CARLOS RODRIGUEZ MD Ot I10 ESSENTIAL (PRIMARY) HYPERTENSION 09/04/2016 LUIS CARLOS RODRIGUEZ MD Ot I50.22 CHRONIC SYSTOLIC (CONGESTIVE) HEART FAIL 09/04/2016 LUIS CARLOS RODRIGUEZ MD Ot I70.0 ATHEROSCLEROSIS OF AORTA 09/04/2016 LUIS CARLOS RODRIGUEZ MD Ot 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 09/04/2016 LUIS CARLOS RODRIGUEZ MD Ot I70.92 CHRONIC TOTAL OCCLUSION OF ARTERY OF THE 09/04/2016 LUIS CARLOS RODRIGUEZ MD Ot 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 09/04/2016 LUIS CARLOS RODRIGUEZ MD Ot Z79.899 OTHER MCC (CURRENT) DRUG THERAPY 09/04/2016 LIUS CARLOS RODRIGUEZ MD Ot Z86.711 PERSONAL HISTORY OF PULMONARY EMBOLISM 09/04/2016 LUIS CARLOS RODRIGUEZ MD Ot Z95.1 PRESENCE OF AORTOCORONARY BYPASS GRAFT 09/04/2016 LUIS CARLOS RODRIGUEZ MD Ot Z95.5 PRESENCE OF CORONARY ANGIOPLASTY IMPLANT 09/11/2016 PRABHA HILL Ot M54.12 RADICULOPATHY, CERVICAL REGION 10/02/2016 LUIS CARLOS RODRIGUEZ MD Ot E11.9 TYPE 2 DIABETES MELLITUS WITHOUT COMPLIC 10/02/2016 LUIS CARLOS RODRIGUEZ MD, Ot E78.5 HYPERLIPIDEMIA, UNSPECIFIED 10/02/2016 LUIS CARLOS RODRIGUEZ MD Ot I10 ESSENTIAL (PRIMARY) HYPERTENSION 10/02/2016 LUIS CARLOS RODRIGUEZ MD Ot I50.22 CHRONIC SYSTOLIC (CONGESTIVE) HEART FAIL 10/02/2016 LUIS CARLOS RODRIGUEZ MD, Ot I70.0 ATHEROSCLEROSIS OF AORTA 10/02/2016 LUIS CARLOS RODRIGUEZ MD Ot 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 10/02/2016 LUIS CARLOS RODRIGUEZ MD, Ot I70.92 CHRONIC TOTAL OCCLUSION OF ARTERY OF THE 10/02/2016 LUIS CARLOS RODRIGUEZ MD, Ot Z79.4 MCC (CURRENT) USE OF INSULIN 10/02/2016 LUIS CARLOS RODRIGUEZ MD, Ot Z79.899 OTHER ANNUAL GIVING DIRECTOR (CURRENT) DRUG THERAPY 10/02/2016 LUIS CARLOS RODRIGUEZ MD, Ot Z86.711 PERSONAL HISTORY OF PULMONARY EMBOLISM 10/02/2016 LUIS CARLOS RODRIGUEZ MD, Ot Z95.1 PRESENCE OF AORTOCORONARY BYPASS GRAFT 10/02/2016 LUIS CARLOS RODRIGUEZ MD, Ot Z95.5 PRESENCE OF CORONARY ANGIOPLASTY IMPLANT Procedures Code Description Performed By Performed On General Antwan Coates 06/04/2012 27782 MEASURE BLOOD OXYGEN LEVEL 10/08/2012 16269 XRAY CHEST 2 VIEW 10/28/2012 41990 CULTURE SPUTUM 58704 MEASURE BLOOD OXYGEN LEVEL 10/28/2012 01600 A1C (IN-HOUSE) 94637 ROUTINE VENIPUNCTURE 12/02/2012 58508 BMP 12/02/2012 90982 MAGNESIUM 2012 [id number] GFR CALC (RESULT ONLY) 12/02/2012 94697 ROUTINE VENIPUNCTURE 12/31/2012 06292 CMP 12/31/2012 [id number] GFR CALC (RESULT ONLY) 12/31/2012 73856 A1C (IN-HOUSE) 06761 UA W/ CULTURE IF INDICATED 05/16/2013 20343 CULTURE URINE 24665 A1C (IN-HOUSE) 91933 MICRO ALBUMIN-IN HOUSE 10/17/2013 69292 MICROALBUMIN 70332 MICRO ALBUMIN-IN HOUSE 02/13/2014 97345 A1C (IN-HOUSE) Encounters ACCT No. Visit Date/Time Discharge Status Pt. Type Provider Facility Loc./Unit Complaint [id number] 07/31/2014 07:55:00 07/31/2014 23: 59:59 CLS Outpatient GLADYS MEDEIROSSHEBA [id number] 07/26/2014 13:51:00 07/26/2014 23: 59:59 CLS Outpatient LIZBETI ELIPRABHA Patrice [id number] 04/13/2014 11:40:00 04/13/2014 23: 59:59 CLS Outpatient SHERINE MEDLEY MD [id number] 02/13/2014 13:37:00 02/13/2014 23: 59:59 CLS Outpatient SORENSEN DOALESSANDRA [id number] 02/13/2014 13:37:00 02/13/2014 23: 59:59 CLS Outpatient SORENSEN DOALESSANDRA [id number] 10/17/2013 10:26:00 10/17/2013 23: 59:59 CLS Outpatient SORENSEN DOALESSANDRA [id number] 10/17/2013 10:26:00 10/17/2013 23: 59:59 CLS Outpatient SORENSEN DOALESSANDRA [id number] 09/21/2013 15:02:00 09/21/2013 23: 59:59 CLS Outpatient AMRIK DDFRANKI Ibrahim [id number] 08/18/2013 08:59:00 08/18/2013 23: 59:59 CLS Outpatient ROBBIE DDKAHLIL Ibrahim [id number] 05/23/2013 10:06:00 05/23/2013 23: 59:59 CLS Outpatient SORENSEN DOALESSANDRA [id number] 05/23/2013 10:06:00 05/23/2013 23: 59:59 CLS Outpatient SORENSEN DOALESSANDRA [id number] 05/16/2013 10:34:00 05/16/2013 23: 59:59 CLS Outpatient SORENSEN DOALESSANDRA [id number] 05/16/2013 10:34:00 05/16/2013 23: 59:59 CLS Outpatient SORENSEN DOALESSANDRA [id number] 01/19/2013 16:10:00 01/19/2013 23: 59:59 CLS Outpatient SORENSEN DOALESSANDRA [id number] 11/01/2012 09:37:00 11/01/2012 23: 59:59 CLS Outpatient [id number] 10/28/2012 11:32:00 10/28/2012 23: 59:59 CLS Outpatient [id number] 10/05/2012 11:46:00 10/05/2012 23: 59:59 CLS Outpatient PRABHA HILL APRN [id number] 08/09/2012 10:08:00 08/09/2012 23: 59:59 CLS Outpatient ANTWAN GA MD [id number] 07/05/2012 11:04:00 07/05/2012 23: 59:59 CLS Outpatient [id number] 06/04/2012 09:04:00 06/04/2012 23: 59:59 CLS Outpatient [id number] 05/25/2012 09:58:00 05/25/2012 23: 59:59 CLS Outpatient KATALINA NAVARRO DDS [id number] 12/31/2012 09:12:00 Document Registration [id number] 12/16/2012 14:29:00 Document Registration [id number] 12/08/2012 10:55:00 Document Registration
[2017-05-28] MEDS ORDERED: CIPR500T4 PO (08:30)
[2017-05-28] MEDS ORDERED: INSU200I4 SC (08:30)
[2017-05-28] MEDS ORDERED: CARV6.252 PO (08:30)
[2017-05-28] MEDS ORDERED: FENO48TA5 PO (08:30)
[2017-05-28] MEDS ORDERED: MECL12.579 PO (08:30)
[2017-05-28] MEDS ORDERED: INSU100I14 SQ (08:30)
[2017-05-28] MEDS ORDERED: CITA20TA7 PO (08:30)
[2017-05-28] MEDS ORDERED: ROSU10TA24 PO (08:30)
[2017-05-28] MEDS ORDERED: CEPH-507 PO (12:39)
== END 2017-01-31 19:32 | disposition home or self-care (01) ==
LOC: EDUNIT# 18:52 → ER 18:54
DX: Z90.711 Acquired absence of uterus with remaining cervical stump; Z86.711 Personal history of pulmonary embolism; E78.00 Pure hypercholesterolemia, unspecified; Z95.1 Presence of aortocoronary bypass graft; Z79.4 Long term (current) use of insulin; Z79.82 Long term (current) use of aspirin; Z90.49 Acquired absence of other specified parts of digestive tract; M19.90 Unspecified osteoarthritis, unspecified site; I10 Essential (primary) hypertension; K21.9 Gastro-esophageal reflux disease without esophagitis; E11.9 Type 2 diabetes mellitus without complications; S50.11XA Contusion of right forearm, initial encounter; I25.10 Atherosclerotic heart disease of native coronary artery without angina pectoris; X58.XXXA Exposure to other specified factors, initial encounter
CPT/HCPCS: 99282

== ENCOUNTER 2017-03-29 13:28 | Emergency (ER) | payer MEDICARE, MEDICAID ==
[~2017-03-29] VITALS: Ht 160 cm; Wt 84.4 kg
--- OUTSIDE RECORDS SUMMARY | 2017-03-29 13:34 | XMS REPORT | Clinical Summary ---
Author Author [facility] Organization [facility] Address Unknown Phone Unavailable Care Team Providers Care Mgmt Specialist Name Role Phone PCP Unavailable Source Comments Some departments are not documenting in the electronic medical record. If you do not see the information that you expected, contact Release of Information in the Health Information Management department at [phone] for further assistance in locating additional records.[facility] Allergies Active Allergy Reactions Severity Noted Date Comments Sulfamethoxazole-Trimetho HIVES High 2012 prim Penicillins HIVES 2012 Protamine UNKNOWN, SEE COMMENTS 2012 Was under sedation and had reaction that is unknown and the hospital was destroyed in [facility]. Sulfa (Sulfonamide HIVES, NAUSEA AND 2012 Antibiotics) VOMITING Current Medications Prescription Sig. Disp. [...] 500 mg tablet every 48 hours. Fish Oil-Ribera-3 Fatty Take 6 Caps by mouth at [...] mg every 4 hours as needed 13 tabletIndications: for Pain. Tracheomalacia clopiDOGrel (PLAVIX) 75 Take 1 Tab by mouth every 90 Tab 01/23/20 Active mg tabletIndications: morning. RESTART 01/22/13 13 Tracheomalacia Active Problems Problem Noted Date Systolic CHF, chronic ([facility]) 01/13/2013 Tracheal stenosis 01/12/2013 Ischemic cardiomyopathy 12/24/2012 HLD (hyperlipidemia) 12/24/2012 PVD (peripheral vascular disease) ([facility]) 12/24/2012 History of transient ischemic attack (TIA) 12/24/2012 History of GI bleed 12/24/2012 History of MRSA infection 12/24/2012 Overview: Sternal wound infection post-CABG IDDM (insulin dependent diabetes mellitus) ([facility]) 12/24/2012 Abnormal stress test 12/24/2012 CAD (coronary [...] dysphonia 2012 Type II diabetes mellitus (HCC) Family History Medical History Relation Name Comments Heart Attack Father High Cholesterol Father Hypertension Father High Cholesterol Mother Hypertension Mother Blood Clots Sister Diabetes Son Relation Name Status Comments Brother Brother Alive Brother Alive Daughter Alive Father Mother Sister Alive Sister Alive Sister Alive Son Son Alive Social History Tobacco Use Types Packs/Day Years Used Date Never Smoker Alcohol Use Drinks/Week oz/Week Comments No Sex Assigned at Date Recorded Not on file Last Filed Vital Signs Vital Sign Reading Time Taken Blood Pressure 143/59 01/15/2013 9:22 AM CDT Pulse 67 01/15/2013 9:22 AM CDT Temperature 36.8 C (98.2 F) 01/15/2013 9:22 AM CDT Respiratory Rate - - Oxygen Saturation 100% 01/15/2013 9:22 AM CDT Inhaled Oxygen - - Concentration Weight 90.2 kg (198 lb 13.7 oz) 01/15/2013 3:04 AM CDT Height 162.6 cm (5' 4") 01/12/2013 6:18 AM CDT Body Mass Index 34.13 01/15/2013 3:04 AM CDT Plan of Treatment Health Maintenance Due Date Last Done Comments PHYSICAL (COMPREHENSIVE) 1947 EXAM PERTUSSIS VACCINE 1953 TETANUS VACCINE 1959 BREAST CANCER SCREENING 1982 COLORECTAL CANCER 1992 SCREENING SHINGLES VACCINE 2002 OSTEOPOROSIS SCREENING 2007 PREVNAR/PNEUMOVAX (#1) 2007 INFLUENZA VACCINE 03/27/2017 Results Not on filefrom Last 3 Months
--- OUTSIDE RECORDS SUMMARY | 2017-03-29 13:37 | XMS REPORT ---
Author Author PRABHA HILL [facility] [address] Address [address] [place] [address] Care Team Providers Care Partition Setter Name Role Phone PRABHA HILL Unavailable PROBLEMS Type Condition ICD9-CM Code [id number] Code Onset Dates Condition Status SNOMED Code Problem Diabetes 250.00 Active 73556323 Problem Type 2 diabetes mellitus with unspecified complications E11.8 Active 69955758 Problem Dysuria R30.0 Active 69721097 Problem Neuropathy G62.9 Active 719118056 Problem Hypothyroidism (acquired) E03.9 Active 746779325 Problem PVD (peripheral vascular disease) I73.9 Active 279250313 Problem Type 2 diabetes mellitus with diabetic neuropathy, unspecified E11.40 Active 41994369 Problem 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 Active 445699784 Problem Essential hypertension I10 Active 24674065 Problem Coronary artery disease involving [place] coronary artery of [place] heart without angina pectoris I25.10 Active 4211816082326 Problem Other dyspnea and respiratory abnormalities 786.09 Active 036137083 Problem Diabetes with other specified manifestations, type II or unspecified type, not stated as uncontrolled 250.80 Active 662602988 Problem 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.19 Active Problem Essential hypertension, benign 401.1 Active 8997433 Problem CHF (congestive heart failure) 428.0 Active 23077368 Problem Other and unspecified hyperlipidemia 272.4 Active 11137370 Problem CAD (coronary artery disease) 414.00 Active 30101664 ALLERGIES Substance Reaction Event Type Date Status Sulfacetamide Sod-Sulfur Unknown Drug Allergy Jun, Active Protamine Sulfate Unknown Drug Allergy Jun, Active Penicillin G Potassium Unknown Drug Allergy Jun, Active Bactrim Unknown Drug Allergy Jun, Active SOCIAL HISTORY No smoking Hx information available PLAN OF CARE Activity Details Follow Up annually for preventive care, sooner for chronic health maintenance Reason: VITAL SIGNS Height 62 in 2016-07-24 Weight 184.0 lbs 2016-07-24 Temperature 97.6 degrees Fahrenheit 2016-07-24 Heart Rate 84 bpm 2016-07-24 Respiratory Rate 18 2016-07-24 BMI 33.65 kg/m2 2016-07-24 Blood pressure systolic 128 mmHg 2016-07-24 Blood pressure diastolic 76 mmHg 2016-07-24 MEDICATIONS Medication Instructions Dosage Frequency Start Date End Date Duration Status NovoLog Flexpen 100 UNIT/ML Subcutaneous 3 times a day Inject 5units with meals 8h Active Crestor 10 MG Orally Once a day 1 tablet 24h Active Carvedilol 3.125 MG Orally 2 times a day 1/2 tablet 12h Active Fenofibric Acid 135 MG Orally Once a day 1 capsule 24h Active Trutest Blood Glucose Test Strip N/A subcutaneously 6 times a day. E11.40 test blood sugar Dec, Active Aspirin 81 MG Orally Once a day 1 tablet 24h Active Enalapril Maleate 2.5 MG Orally Once a day 1 tablet 24h Active Zontivity 2.08 MG Orally Once a day 1 tablet 24h Active Tresiba FlexTouch 200 UNIT/ML Subcutaneous once a day 20u 24h Jan, Active Levothyroxine Sodium 25 MCG Orally Once a day 1 tablet 24h Jan, 30 day(s) Active Clopidogrel Bisulfate 75 MG TAKE 1 TABLET BY MOUTH ONCE A DAY 30 Active Citalopram Hydrobromide 20 MG TAKE 1 TABLET BY MOUTH ONCE A DAY 30 Active RESULTS Name Result Date Reference Range A1C (IN HOUSE) 2016-07-24 A1C IN HOUSE 10.0 4.3 - 5.6 % Previous A1c 9.1 Lot 0649 Exp date 04/2018 LIPID PANEL 2016-07-24 Cholesterol, Total 185 100-199 Triglycerides 141 0-149 HDL Cholesterol 57 >39 VLDL Cholesterol Wilian 28 5-40 LDL Cholesterol Calc 100 0-99 Comment: CMP 2016-07-24 Glucose, Serum 155 65-99 BUN 31 8-27 Creatinine, Serum 1.22 0.57-1.00 eGFR If NonAfricn Am 44 >59 eGFR If Africn Am 51 >59 BUN/Creatinine Ratio 25 11-26 Sodium, Serum 141 134-144 Potassium, Serum 5.1 3.5-5.2 Chloride, Serum 98 96-106 Carbon Dioxide, Total 26 18-29 Calcium, Serum 10.0 8.7-10.3 Protein, Total, Serum 7.1 6.0-8.5 Albumin, Serum 4.4 3.5-4.8 Globulin, Total 2.7 1.5-4.5 A/G Ratio 1.6 1.1-2.5 Bilirubin, Total 0.3 0.0-1.2 Alkaline Phosphatase, S 48 39-117 AST (SGOT) 23 0-40 ALT (SGPT) 16 0-32 MRI : Thoracic w/o Contrast 2016-07-29 MRI : Cervical w/o Contrast 2016-07-29 Xray : Spine, Thoracic 2 views (IN HOUSE) 2016-07-24 Xray : Spine, Cervical (IN HOUSE) 2016-07-24 PROCEDURES Procedure Date Ordered Related Diagnosis Body Site Office Visit, Est Pt., Level 3 Jul 24, 2016 ANNUAL SLICK VST; PERSFLEX PPS INIT Jul 24, 2016 X-RAY EXAM OF NECK SPINE Jul 24, 2016 VENIPUNCT, ROUTINE* Jul 24, 2016 X-RAY EXAM OF THORACIC SPINE Jul 24, 2016 [facility] VISIT ESTABLISHED PATIENT Jul 24, 2016 [facility] Jul [facility], 2016 GLYCATED HEMOGLOBIN TEST Jul 24, 2016 SINGLE IMMUNIZATION ADMIN Jul 24, 2016 PCV 13 Jul 24, 2016 IMMUNIZATIONS Vaccine Route Administration Date Status PCV 13 IM Intramuscular Jul 24, 2016 Administered
--- OUTSIDE RECORDS SUMMARY | 2017-03-29 13:39 | XMS REPORT ---
Author Author PRABHA HILL [facility] Address [address] [place] [address] Care Team Providers Care Commercial Credit Officer Name Role Phone PRABHA HILL Unavailable PROBLEMS Type Condition ICD9-CM Code [id number] Code Onset Dates Condition Status SNOMED Code Problem Diabetes 250.00 Active 96759854 Problem Type 2 diabetes mellitus with unspecified complications E11.8 Active 00900509 Problem Dysuria R30.0 Active 04794323 Problem Neuropathy G62.9 Active 753211998 Problem Hypothyroidism (acquired) E03.9 Active 939337246 Problem PVD (peripheral vascular disease) I73.9 Active 770106310 Problem Type 2 diabetes mellitus with diabetic neuropathy, unspecified E11.40 Active 16047155 Problem 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 Active 214588747 Problem Essential hypertension I10 Active 53704413 Problem Coronary artery disease involving [place] coronary artery of [place] heart without angina pectoris I25.10 Active 7948271390471 Problem Other dyspnea and respiratory abnormalities 786.09 Active 750823472 Problem Diabetes with other specified manifestations, type II or unspecified type, not stated as uncontrolled 250.80 Active 654699152 Problem 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.19 Active Problem Essential hypertension, benign 401.1 Active 4460490 Problem CHF (congestive heart failure) 428.0 Active 64899941 Problem Other and unspecified hyperlipidemia 272.4 Active 30516665 Problem CAD (coronary artery disease) 414.00 Active 53379211 ALLERGIES Unknown Allergies SOCIAL HISTORY No smoking Hx information available PLAN OF CARE VITAL SIGNS MEDICATIONS Unknown Medications RESULTS No Results PROCEDURES No Known procedures IMMUNIZATIONS No Known Immunizations
--- OUTSIDE RECORDS SUMMARY | 2017-03-29 13:40 | XMS REPORT ---
Author Author PRABHA HILL [facility] Address [address] [place] [address] Care Team Providers Care Certified Prosthetist Name Role Phone PRABHA HILL Unavailable PROBLEMS Type Condition ICD9-CM Code [id number] Code Onset Dates Condition Status SNOMED Code Problem Diabetes 250.00 Active 31207655 Problem Type 2 diabetes mellitus with unspecified complications E11.8 Active 13742191 Problem Dysuria R30.0 Active 40337845 Problem Neuropathy G62.9 Active 400629665 Problem Hypothyroidism (acquired) E03.9 Active 764964318 Problem PVD (peripheral vascular disease) I73.9 Active 416858083 Problem Type 2 diabetes mellitus with diabetic neuropathy, unspecified E11.40 Active 63517454 Problem Essential hypertension I10 Active 71687803 Problem 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 Active 743097428 Problem Coronary artery disease involving [place] coronary artery of [place] heart without angina pectoris I25.10 Active 0695117266742 Problem Other dyspnea and respiratory abnormalities 786.09 Active 205715785 Problem Other and unspecified hyperlipidemia 272.4 Active 62631874 Problem Diabetes with other specified manifestations, type II or unspecified type, not stated as uncontrolled 250.80 Active 502482421 Problem 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.19 Active Problem CHF (congestive heart failure) 428.0 Active 32444902 Problem Essential hypertension, benign 401.1 Active 4572006 Problem CAD (coronary artery disease) 414.00 Active 88979762 ALLERGIES Unknown Allergies SOCIAL HISTORY No smoking Hx information available PLAN OF CARE VITAL SIGNS MEDICATIONS Unknown Medications RESULTS No Results PROCEDURES No Known procedures IMMUNIZATIONS No Known Immunizations
[2017-03-29] MEDS ORDERED: NS IV 1000 ML 1,000 ML IV ONE ×2 (14:02→15:11)
[2017-03-29 14:20] LABS: BASOPHILS # (AUTO) 0.1 10^3/uL (0.0-0.1); BASOPHILS % (AUTO) 1 % (0-10); EOSINOPHILS # (AUTO) 0.1 10^3/uL (0.0-0.3); EOSINOPHILS % (AUTO) 1 % (0-10); LYMPHOCYTES # (AUTO) 1.6 X 10^3 (1.0-4.0); LYMPHOCYTES % (AUTO) 21 % (12-44); MEAN CORPUSCULAR HEMOGLOBIN 29 PG (25-34); MEAN CORPUSCULAR HGB CONC 34 G/DL (32-36); MEAN CORPUSCULAR VOLUME 86 FL (80-99); MEAN PLATELET VOLUME 11.1 FL (7.4-10.4); MONOCYTES # (AUTO) 0.7 X 10^3 (0.0-1.0); MONOCYTES % (AUTO) 9 % (0-12); NEUTROPHILS # (AUTO) 5.1 X 10^3 (1.8-7.8); NEUTROPHILS % (AUTO) 68 % (42-75); PLATELET COUNT 278 10^3/uL (130-400); RED BLOOD COUNT 4.99 10^6/uL (4.35-5.85); RED CELL DISTRIBUTION WIDTH 13.4 % (10.0-14.5); WHITE BLOOD COUNT 7.5 10^3/uL (4.3-11.0)
[2017-03-29 14:39] LABS: ALBUMIN 3.8 GM/DL (3.2-4.5); BILIRUBIN,TOTAL 0.5 MG/DL (0.1-1.0); CALCIUM 9.2 MG/DL (8.5-10.1); CREATININE SERUM 1.32 MG/DL (0.60-1.30); MAGNESIUM 2.2 MG/DL (1.8-2.4); POTASSIUM 4.1 MMOL/L (3.6-5.0)
--- NOTE | 2017-03-29 15:53 | Diagnostic Imaging Report ---
PROCEDURE: CT head and maxillofacial without contrast. TECHNIQUE: Multiple contiguous axial images were obtained through the head and facial bones without the use of intravenous contrast. INDICATION: Recent dental work. Left ear and face pain. Dizziness. COMPARISON: CT head of 05/03/[address] neck of 06/24/12. CT HEAD: Minimal age-related cerebral volume loss and chronic small vessel ischemic changes are present. There is no midline shift or mass effect. There is no hemorrhage or evidence of acute ischemia. There is no skull fracture. Mastoid air cells are clear. IMPRESSION: No acute intracranial abnormalities. CT FACE: There are a few teeth missing involving the mandible and maxilla. In particular, there is a left mandibular molar missing. There is no osteomyelitis, fracture or osseous lesion. There is no soft tissue inflammation or fluid collection that would indicate abscess. Bilateral ear canals are patent. Mastoid air cells are clear. No inflammatory change is seen. Paranasal sinuses are clear. Nasal septum is midline. Orbits are symmetric. IMPRESSION: Negative CT of the face. No acute abnormality is identified. Specifically, no hematoma, fluid collection or osteomyelitis. Dictated by: Dictated on workstation # [id number]
--- NOTE | 2017-03-29 16:40 | Diagnostic Imaging Report ---
PROCEDURE: US carotid duplex, bilateral. TECHNIQUE: Multiple real-time grayscale images were obtained over the carotid arteries in various projections, bilaterally. Additional duplex Doppler and color Doppler images were also obtained. INDICATION: Diabetes, carotid artery disease. COMPARISON: None. FINDINGS: Mild irregular plaque is seen in the carotid bulbs extending to the ICAs. However, peak systolic velocities and ratios are normal. There is no stenosis or occlusion. Flow in the vertebral arteries is antegrade. IMPRESSION: 1. Mild carotid atherosclerosis without stenosis or occlusion. 2. Normal vertebral artery flow. Dictated by: Dictated on workstation # [id number]
--- NOTE | 2017-03-29 16:46 | ED General ---
General Chief Complaint: Dizziness/Syncope Stated Complaint: DIZZINESS/L EAR PAIN Nursing Triage Note: to ER with reports of dizziness s/p 3 teeth extraction on the left side. Patient also reports left ear pain. Nursing Sepsis Screen: No Definite Risk Source of Information: Patient Exam Limitations: No Limitations History of Present Illness Time Seen by Provider: 13:44 Initial Comments This delightful 76-year-old woman presents to the emergency room with complaints of left ear ache and dizziness. She describes her dizziness as a lightheadedness and disequilibrium. She has had difficulty walking as a result. Symptoms started yesterday. The pain in the left face and ear seems to be related to dental extractions she had done about 3 weeks ago. Her dizziness is worse when she is upright. She did check her blood sugar at home and reports it is actually been higher than usual rather than low. She denies any chest pain or shortness of air. Orthostatic blood pressures on my assessment were as follows: Lying 130/74, heart rate 64 Sitting 114/78, heart rate 72 Standing 91/62, heart rate 77 Allergies and Home Medications Allergies Coded Allergies: sulfamethoxazole (Unverified Allergy, Severe, ANAPHYLAXIS, 07/05/10) pt states severe resp distress after taking bactrim ds trimethoprim (Unverified Allergy, Severe, ANAPHYLAXIS, 07/05/10) pt states severe resp distress after taking bactrim ds Sulfa (Sulfonamide Antibiotics) (Unverified Allergy, Mild, 07/05/10) Penicillins (Verified Allergy, Unknown, 12/14/05) protamine (Verified Allergy, Unknown, 02/07/08) Home Medications Aspirin 81 Mg Tablet.dr, 81 MG PO HS, (Reported) Carvedilol 6.25 Mg Tablet, 3.125 MG PO DAILY, (Reported) TAKES 1/2 (6.25MG) TABLET Citalopram Hydrobromide 20 Mg Tablet, 20 MG PO DAILY, (Reported) Clopidogrel Bisulfate 75 Mg Tablet, 75 MG PO DAILY, (Reported) Docusate Sodium 100 Mg Cap, 300 MG PO BID, (Reported) TAKES 3 (100 MG) CAPSULES Enalapril Maleate 2.5 Mg Tablet, 2.5 MG PO BID, #60 (Reported) Fenofibric Acid (Choline) 135 Mg Capsule.dr, 135 MG PO HS, (Reported) Furosemide 40 Mg Tablet, 40 MG PO DAILY PRN for SWELLING, (Reported) Insulin Aspart 300 Units/3 Ml Solution, 5 UNITS SQ BID WITH MEALS, (Reported) Insulin Degludec 100 Unit/1 Ml Insuln.pen, 20 UNIT SQ HS, (Reported) Levothyroxine Sodium 25 Mcg Tablet, 25 MCG PO DAILY, (Reported) Ofloxacin 5 Ml Drops, 5 DROPS EACH EAR BID for 7 Days, (Reported) 7 DAY THERAPY FILLED 08-19-16 0.3 [place] 3 Polyunsat Fatty Acids 1,000 Mg Cap, 3,000 MG PO BID, (Reported) TAKES 3 (1,000 MG) CAPSULES Rosuvastatin Calcium 10 Mg Tablet, 10 MG PO HS, (Reported) Tramadol HCl 50 Mg Tablet, 50 MG PO BID, (Reported) Vorapaxar Sulfate 2.08 Mg Tablet, 2.08 MG PO HS, (Reported) Constitutional: no symptoms reported EENTM: see HPI Respiratory: no symptoms reported Cardiovascular: see HPI Gastrointestinal: no symptoms reported Genitourinary: no symptoms reported Musculoskeletal: no symptoms reported Skin: no symptoms reported Psychiatric/Neurological: See HPI Hematologic/Lymphatic: No Symptoms Reported Immunological/Allergic: no symptoms reported Past Jyvhcvp-Tusfkl-Yaeviq Hx Patient Social History Alcohol Use: Denies Use Recreational Drug Use: No Smoking Status: Never a Smoker 2nd Hand Smoke Exposure: No Recent Foreign Travel: No Contact w/Someone Who Travel: No Recent Infectious Disease Expo: No Recent Hopitalizations: No Physical Abuse: No Sexual Abuse: No Mistreated: No Fear: No Immunizations Up To Date Tetanus Booster (TDap): Unknown Date of Pneumonia Vaccine: Jun 15, 2014 Date of Influenza Vaccine: Apr 26, 2016 Seasonal Allergies Seasonal Allergies: No Surgeries History of Surgeries: Yes Surgeries: CABG, Gallbladder, Hysterectomy Respiratory History of Respiratory Disorde: No Respiratory Disorders: Pulmonary Embolism Cardiovascular History of Cardiac Disorders: Yes Cardiac Disorders: Coronary Artery Disease, High Cholesterol, Hypertension, Peripheral Vascular Neurological History of Neurological Disord: No Reproductive System Hx Reproductive Disorders: No SPECIALIST PHYSICIANS History: Menopausal Genitourinary History of Genitourinary Disor: Yes Genitourinary Disorders: Bladder Infection Gastrointestinal History of Gastrointestinal Di: No Gastrointestinal Disorders: Gastroesophageal Reflux, Ulcer Musculoskeletal History of Musculoskeletal Dis: Yes Musculoskeletal Disorders: Arthritis Endocrine History of Endocrine Disorders: Yes Endocrine Disorders: Diabetes, Insulin dep HEENT History of HEENT Disorders: No Cancer History of Cancer: No Psychosocial History of Psychiatric Problem: No Suicide Risk Score: 0 Integumentary History of Skin or Integumenta: No Blood Transfusions History of Blood Disorders: No Family Medical History Significant Family History: No Pertinent Family Hx Physical Exam Vital Signs Vital Sign - Last 12Hours 03/29/17 13:38 Temp 98.1 Pulse 64 Resp 16 B/P (MAP) 130/74 Pulse Ox 93 O2 Delivery Room Air Capillary Refill : Less Than 3 Seconds General Appearance: No Apparent Distress, WD/WN HEENT: PERRL/EOMI, TMs Normal, Normal ENT Inspection, Pharynx Normal, Other ( Tenderness around the extraction site on the left lower jaw. No obvious inflammation or abscess formation) Neck: Normal Inspection, Supple, No Carotid Bruit, No JVD, Other (Slight tenderness below the left jaw line) Respiratory: Lungs Clear, Normal Breath Sounds, No Accessory Muscle Use, No Respiratory Distress Cardiovascular: Regular Rate, Rhythm, No Edema, No Gallop, No Murmur, Normal Peripheral Pulses Gastrointestinal: Normal Bowel Sounds, Non Tender, Soft Extremity: Normal Inspection, No Pedal Edema Neurologic/Psychiatric: Alert, Oriented x3, No Motor/Sensory Deficits, Normal Mood/Affect, applications intern II-XII Norm as Tested, Other (Disequilibrium upon standing and walking) Skin: Normal Color, Warm/Dry Progress/Results/Core Measures Results/Orders Lab Results Laboratory Tests Test 03/29/17 14:12 Range/Units White Blood Count 7.5 4.3-11.0 10^3/uL Red Blood Count 4.99 4.35-5.85 10^6/uL Hemoglobin 14.4 11.5-16.0 G/DL Hematocrit 43 35-52 % Mean Corpuscular Volume 86 80-99 FL Mean Corpuscular Hemoglobin 29 25-34 PG Mean Corpuscular Hemoglobin Concent 34 32-36 G/DL Red Cell Distribution Width 13.4 10.0-14.5 % Platelet Count 278 130-400 10^3/uL Mean Platelet Volume 11.1 H 7.4-10.4 FL Neutrophils (%) (Auto) 68 42-75 % Lymphocytes (%) (Auto) 21 12-44 % Monocytes (%) (Auto) 9 0-12 % Eosinophils (%) (Auto) 1 0-10 % Basophils (%) (Auto) 1 0-10 % Neutrophils # (Auto) 5.1 1.8-7.8 X 10^3 Lymphocytes # (Auto) 1.6 1.0-4.0 X 10^3 Monocytes # (Auto) 0.7 0.0-1.0 X 10^3 Eosinophils # (Auto) 0.1 0.0-0.3 10^3/uL Basophils # (Auto) 0.1 0.0-0.1 10^3/uL Sodium Level 137 135-145 MMOL/L Potassium Level 4.1 3.6-5.0 MMOL/L Chloride Level 102 98-107 MMOL/L Carbon Dioxide Level 21 21-32 MMOL/L Anion Gap 14 5-14 MMOL/L Blood Urea Nitrogen 30 H 7-18 MG/DL Creatinine 1.32 H 0.60-1.30 MG/DL Estimat Glomerular Filtration Rate 39 BUN/Creatinine Ratio 23 Glucose Level 260 H 70-105 MG/DL Calcium Level 9.2 8.5-10.1 MG/DL Magnesium Level 2.2 1.8-2.4 MG/DL Total Bilirubin 0.5 0.1-1.0 MG/DL Aspartate Amino Transf (AST/SGOT) 15 5-34 U/L Alanine Aminotransferase (ALT/SGPT) 13 0-55 U/L Alkaline Phosphatase 59 40-136 U/L Total Protein 7.0 6.4-8.2 GM/DL Albumin 3.8 3.2-4.5 GM/DL My Orders Orders - CHITO FORD MD Cbc With Automated Diff (03/29/17 14:02) Comprehensive Metabolic Panel (03/29/17 14:02) Magnesium (03/29/17 14:02) Monitor-Rhythm Ecg Trace Only (03/29/17 14:02) Saline Lock/Iv-Start (03/29/17 14:02) Ns Iv 1000 Ml (Sodium Chloride 0.9%) (03/29/17 14:02) Ct Head/Maxillofacial Wo (03/29/17 15:11) Us Carotid [place] Complete [address]1215 (03/29/17 15:11) Ns Iv 1000 Ml (Sodium Chloride 0.9%) (03/29/17 15:11) Ekg Tracing (03/29/17 15:12) Medications Given in ED Current Medications Medications Dose Ordered Sig/Joanie Route Start Time Stop Time Status Last Admin Dose Admin Sodium Chloride 1,000 ml @ 0 mls/hr Q0M ONCE IV 03/29/17 14:02 03/29/17 14:04 DC 03/29/17 14:12 0 MLS/HR Sodium Chloride 1,000 ml @ 0 mls/hr Q0M ONCE IV 03/29/17 15:11 03/29/17 15:13 DC 03/29/17 15:40 0 MLS/HR Vital Signs/I&O Vital Sign - Last 12Hours 03/29/17 03/29/17 03/29/17 13:38 14:08 16:56 Temp 98.1 98.1 Pulse 64 64 63 72 77 Resp 16 16 B/P (MAP) 130/74 Pulse Ox 93 97 O2 Delivery Room Air Room Air Intake and Output 03/30/17 00:00 Intake Total 2000 ml Balance 2000 ml Blood Pressure Mean: 92 Progress Note : Progress Note Patient was found to have orthostatic hypotension. A liter of IV fluids was infused and orthostatics were rechecked. Orthostatic hypertension resolved but patient remained symptomatic. CT of the head and face and ultrasound of the carotid arteries were ordered to evaluate for cerebral circulation problems, postoperative complications of the face, etc. The studies were unremarkable. A second liter of IV fluids was infused which did actually resolve her symptoms. Patient realized she had actually been taking a full tablet of Coreg twice daily instead of a half tablet as previously instructed. Patient was likely experiencing hypovolemia from Lasix use and inability to compensate with elevated heart rate due to beta michael use. She was instructed to reduce her Coreg to one half tablet twice daily, skip one dose of Lasix, drink plenty of clear liquids, keep her follow-up appointment with Dr. Adkins next week. ECG Initial ECG Impression Date: Mar 29, 2017 Initial ECG Impression Time: 15:42 Initial ECG Rate: 61 Initial ECG Rhythm: Normal Sinus Comment Normal sinus rhythm with no ST elevation or depression. Automated read states nonspecific intraventricular conduction delay. No axis deviation. Diagnostic Imaging Diagonstic Imaging: CT Plain Films/CT/US/NM/MRI: facial bones, head Comments CT head and face viewed by me and report reviewed. See report below: NAME: KELSEA HAWK [facility] REC#: [id number] PT STATUS: REG ER : 1940 PHYSICIAN: CHITO FORD MD ADMIT DATE: 03/29/17/ER Signed Date of Exam: 03/29/17 CT HEAD/MAXILLOFACIAL WO PROCEDURE: CT head and maxillofacial without contrast. TECHNIQUE: Multiple contiguous axial images were obtained through the head and facial bones without the use of intravenous contrast. INDICATION: Recent dental work. Left ear and face pain. Dizziness. COMPARISON: CT head of 05/03/[address] neck of 06/24/12. CT HEAD: Minimal age-related cerebral volume loss and chronic small vessel ischemic changes are present. There is no midline shift or mass effect. There is no hemorrhage or evidence of acute ischemia. There is no skull fracture. Mastoid air cells are clear. IMPRESSION: No acute intracranial abnormalities. CT FACE: There are a few teeth missing involving the mandible and maxilla. In particular, there is a left mandibular molar missing. There is no osteomyelitis, fracture or osseous lesion. There is no soft tissue inflammation or fluid collection that would indicate abscess. Bilateral ear canals are patent. Mastoid air cells are clear. No inflammatory change is seen. Paranasal sinuses are clear. Nasal septum is midline. Orbits are symmetric. IMPRESSION: Negative CT of the face. No acute abnormality is identified. Specifically, no hematoma, fluid collection or osteomyelitis. Dictated by: Dictated on workstation # [id number] Dict: 03/29/17 1535 Trans: 03/29/17 1635 Interpreted by: TRU CASTELLANOS Electronically signed by: TRU CASTELLANOS 03/29/17 1635 Diagonstic Imaging: Ultrasound Comments Carotid ultrasound report reviewed. See report below: NAME: KELSEA HAWK [facility] REC#: [id number] PT STATUS: REG ER : 1940 PHYSICIAN: CHITO FORD MD ADMIT DATE: 03/29/17/ER Signed Date of Exam: 03/29/17 US CAROTID [place] COMPLETE [id number] PROCEDURE: US carotid duplex, bilateral. TECHNIQUE: Multiple real-time grayscale images were obtained over the carotid arteries in various projections, bilaterally. Additional duplex Doppler and color Doppler images were also obtained. INDICATION: Diabetes, carotid artery disease. COMPARISON: None. FINDINGS: Mild irregular plaque is seen in the carotid bulbs extending to the ICAs. However, peak systolic velocities and ratios are normal. There is no stenosis or occlusion. Flow in the vertebral arteries is antegrade. IMPRESSION: 1. Mild carotid atherosclerosis without stenosis or occlusion. 2. Normal vertebral artery flow. Dictated by: Dictated on workstation # [id number] Dict: 03/29/17 1633 Trans: 03/29/17 1642 Interpreted by: TRU CASTELLANOS Electronically signed by: TRU CASTELLANOS 03/29/17 1642 Departure Impression Impression: Primary Impression: Orthostatic hypotension Additional Impressions: Hypovolemia Lightheadedness Disposition: 01 HOME, SELF-CARE Condition: Improved Departure-Patient Inst. Decision time for Depature: 16:35 Referrals: [facility] (PCP) Primary Care Physician PRABHA HILL (Family) Primary Care Physician Patient Instructions: Orthostatic Hypotension (DC) Add. Discharge Instructions: Decrease your Coreg dose to half the current dose. Keep your follow-up appointment with Dr. Adkins on Thursday. Skip your next Lasix (furosemide) dose. Drink plenty of clear liquids. Return to care if symptoms worsen. Please walk with your Rollator for the next few days until you are sure your balance has improved. All discharge instructions reviewed with patient and/or family. Voiced understanding. Copy Copies To 1: LUIS CARLOS ADKINS MD Copies To 2: PAPI ACUNA MD, JOSHUA T MD Mar 29, 2017 16:46
[2017-03-29 16:56] VITALS: BP 135/71
== END 2017-03-29 16:56 | disposition home or self-care (01) ==
LOC: EDUNIT# 13:28 → ER 13:29
DX: I95.1 Orthostatic hypotension (principal); E86.1 Hypovolemia; I25.10 Atherosclerotic heart disease of native coronary artery without angina pectoris; I10 Essential (primary) hypertension; E78.00 Pure hypercholesterolemia, unspecified; K21.9 Gastro-esophageal reflux disease without esophagitis; E11.9 Type 2 diabetes mellitus without complications; M19.90 Unspecified osteoarthritis, unspecified site; I73.9 Peripheral vascular disease, unspecified; Z87.448 Personal history of other diseases of urinary system; Z79.82 Long term (current) use of aspirin; Z87.19 Personal history of other diseases of the digestive system; Z79.4 Long term (current) use of insulin; Z95.1 Presence of aortocoronary bypass graft; Z90.710 Acquired absence of both cervix and uterus; Z86.711 Personal history of pulmonary embolism
CPT/HCPCS: 36415; 70450; 70486; 80053; 83735; 85025; 93005; 93041; 93880; 96360; 96361

== ENCOUNTER → 2017-04-09 | Outpatient (CLI) | payer MEDICARE, MEDICAID ==
[~2017-04-09] MED LIST changes: +CATHETER FLUSH 10 ML SYR IV PRN; +IOHEXOL 350 MG/ML 100 ML (OMNIPAQUE 350) VIAL IV ONE; +NS 100 ML (IVPB) BAG IV ONE
--- NOTE | 2017-04-09 12:53 | Diagnostic Imaging Report ---
PROCEDURE: CT angiography of the head and CT angiography of the neck with and without contrast. TECHNIQUE: Contiguous noncontrast images were obtained from the skull base through the vertex. After intravenous contrast administration, helical CT angiography of the neck was performed. Source data was reformatted into multiple MIP projections. Delayed post contrast acquisition was also obtained. INDICATION: Dizziness. CT head: Precontrast and delayed post injection head CT performed. There is mild cerebrocortical atrophy and periventricular white matter small-vessel sequelae. There is normal enhancement of major dural venous sinuses. No abnormal parenchymal or meningeal enhancement apparent. No mass or mass effect. No focal or generalized edema. No evidence of hemorrhage. Orbits, sinuses, and calvarium unremarkable. CT angio neck: Cervical vertebral arteries patent and unremarkable. The bilateral common carotids reveal some mild plaque at their bulbs without hemodynamically significant stenosis. The bifurcations patent. Mixed soft and hard plaque in the proximal right cervical ICA results in less than 50% stenosis. Mixed soft and hard plaque at the origin of the left cervical internal carotid results in about 50 to 69% stenosis. The mid and distal thirds of both cervical internal carotids were widely patent and unremarkable. CT angio head: The intracranial ICAs revealed mild non-stenosing calcified plaques eccentrically at their cavernous segments. The anterior cerebral arteries were unremarkable and the bilateral middle cerebral arterial segments unremarkable and showed symmetrical enhancement. The intrathecal distal vertebrals and the basilar unremarkable. The bilateral posterior cerebral arteries are unremarkable. IMPRESSION: Cervical atherosclerosis greater left than right, however, hemodynamically significant stenosis was not apparent. The posterior circulation appeared normal. CT angio head reveals mild intracranial anterior circulation calcified plaque without stenosis. There was no aneurysm branch occlusion or vascular malformation. No intraluminal thrombus. Dictated by: Dictated on workstation # [id number]
== END ==
LOC: RAD 09:56
PROVIDERS: ATTEND Nurse Practitioner Community Health
DX: R42 Dizziness and giddiness (principal)
CPT/HCPCS: 70496; 70498

== ENCOUNTER → 2017-07-15 | Outpatient (CLI) | payer MEDICARE, MEDICAID ==
[~2017-07-15] MED LIST changes: +CARV6.252 PO; -CATHETER FLUSH 10 ML SYR IV PRN; +CEPH-507 PO; +CIPR500T4 PO; +CITA20TA7 PO; +DOCU-143 PO; +FENO48TA5 PO; +INSU200I4 SC; -IOHEXOL 350 MG/ML 100 ML (OMNIPAQUE 350) VIAL IV ONE; +MECL12.579 PO; -NS 100 ML (IVPB) BAG IV ONE; +ROSU10TA24 PO
== END ==
LOC: CARD 13:36
PROVIDERS: ATTEND Physician Assistant
DX: I25.10 Atherosclerotic heart disease of native coronary artery without angina pectoris (principal); I11.0 Hypertensive heart disease with heart failure; I50.22 Chronic systolic (congestive) heart failure; E78.2 Mixed hyperlipidemia
CPT/HCPCS: 93306

== ENCOUNTER 2017-07-29 13:21 | Emergency (ER) | payer MEDICARE, MEDICAID ==
[~2017-07-29] VITALS: Ht 160 cm; Wt 83.0 kg
--- OUTSIDE RECORDS SUMMARY | 2017-07-29 13:29 | XMS REPORT | Clinical Summary ---
Author Author [facility] Organization [facility] Address Unknown Phone Unavailable Care Team Providers Care Prospecting Driller Name Role Phone PCP Unavailable Source Comments Some departments are not documenting in the electronic medical record. If you do not see the information that you expected, contact Release of Information in the Health Information Management department at [phone] for further assistance in locating additional records.[facility] Allergies Active Allergy Reactions Severity Noted Date Comments Sulfamethoxazole-Trimetho HIVES High 2012 prim Penicillins HIVES 2012 Protamine UNKNOWN, SEE COMMENTS 2012 Was under sedation and had reaction that is unknown and the hospital was destroyed in [facility]. Sulfa (Sulfonamide HIVES, NAUSEA AND 2012 [...] 500 mg tablet every 48 hours. 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
--- NOTE | 2017-07-29 14:44 | Diagnostic Imaging Report ---
INDICATION: Left ankle pain. COMPARISON: None. FINDINGS: Three views of left ankle demonstrate mild degenerative joint disease of the visualized tarsal articulations. There is no fracture or dislocation. No bony erosion seen. Atherosclerosis is present. No foreign body. IMPRESSION: 1. Degenerative joint disease without fracture or dislocation. 2. Atherosclerosis. Dictated by: Dictated on workstation # [id number]
--- NOTE | 2017-07-29 14:49 | Diagnostic Imaging Report ---
INDICATION: Right foot pain. COMPARISON: None. FINDINGS: Three views of the right foot demonstrate a needle foreign body in the plantar soft tissues posterior to the distal tarsal bones. This is only seen on the lateral view. 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 Degenerative changes are seen involving most of the tarsal and metatarsal articulations. There is no acute fracture or dislocation. There is no soft tissue gas. Atherosclerosis is present. IMPRESSION: 1. Linear needlelike foreign body in the plantar soft tissues. 2. Degenerative joint disease and prior amputations. 3. No acute fracture or dislocation. 4. Atherosclerosis. Dictated by: Dictated on workstation # [id number]
--- NOTE | 2017-07-29 15:18 | ED General ---
General Chief Complaint: Lower Extremity Stated Complaint: FEET ISSUES Nursing Triage Note: TO ROOM 09 VIA AMB USING WALKER. STATES SHE WAS STANDING LASTNIGHT AND SHE FELT AND "EXPLOSION" IN HER LEFT ANKLE. ALSO CONCERENED WITH HER LEFT GREAT TOE AND RIGHT 3RD TOE. Nursing Sepsis Screen: No Definite Risk Source of Information: Patient Exam Limitations: No Limitations History of Present Illness Time Seen by Provider: 14:10 Initial Comments This 76-year-old woman presents to the emergency room with complaints of pain, swelling, and erythema on the left medial ankle as well as ecchymosis that has expanded down distally from that area. Symptoms started abruptly last night while she was standing in the kitchen. She felt a bursting sensation and pain. She states there was also external bleeding from the skin at this site. She is not aware of any injury. However she has significant numbness of the feet bilaterally due to diabetic neuropathy. She has had no active bleeding today. She secondarily has additional complaint of erythema of the third toe on the right foot. She apparently had bumped the toe at some point snagging the nail. The nail was disrupted and blood. The toe then became swollen and erythematous. Patient has been ambulatory and weightbearing with a walker. Allergies and Home Medications Allergies Coded Allergies: sulfamethoxazole (Unverified Allergy, Severe, ANAPHYLAXIS, 07/05/10) pt states severe resp distress after taking bactrim ds trimethoprim (Unverified Allergy, Severe, ANAPHYLAXIS, 07/05/10) pt states severe resp distress after taking bactrim ds ciprofloxacin (Verified Allergy, Intermediate, BLOOD SUGAR BOTTOM OUT, ) Sulfa (Sulfonamide Antibiotics) (Unverified Allergy, Mild, 07/05/10) Penicillins (Verified Allergy, Unknown, 12/14/05) protamine (Verified Allergy, Unknown, 02/07/08) Quinolones (Verified Adverse Reaction, Severe, HYPOGLYCEMIA, 05/28/17) Home Medications Aspirin 81 Mg Tablet.dr, 81 MG PO HS, (Reported) Carvedilol 6.25 Mg Tablet, 3.125 MG PO BID, (Reported) TAKES 1/2 (6.25MG) TABLETS Citalopram Hydrobromide 20 Mg Tablet, 30 MG PO DAILY, (Reported) TAKES 1 & 1/2 (20MG) TABLET Clopidogrel Bisulfate 75 Mg Tablet, 75 MG PO DAILY, (Reported) Docusate Sodium 100 Mg Capsule, 100-300 MG PO BID PRN for CONSTIPATION-1ST LINE, (Reported) Doxycycline Hyclate 100 Mg Tablet, 100 MG PO BID, #20 Prescribed by: CHITO VIDAL on 07/29/17 1519 Fenofibrate Nanocrystallized 48 Mg Tablet, 48 MG PO HS, (Reported) Furosemide 40 Mg Tablet, 40 MG PO DAILY PRN for SWELLING, (Reported) Insulin Aspart 300 Units/3 Ml Solution, 5 UNITS SQ WITH BREAKFAST, (Reported) Insulin Degludec 200 Unit/1 Ml Insuln.pen, 18 UNITS SC HS, (Reported) Levothyroxine Sodium 25 Mcg Tablet, 25 MCG PO DAILY, (Reported) Meclizine HCl 12.5 Mg Tablet, 12.5 MG PO BID PRN for DIZZINESS, (Reported) [place] 3 Polyunsat Fatty Acids 1,000 Mg Cap, 6,000 MG PO DAILY, (Reported) Rosuvastatin Calcium 10 Mg Tablet, 10 MG PO HS, (Reported) Tramadol HCl 50 Mg Tablet, 50 MG PO BID PRN for PAIN-MODERATE, (Reported) Vorapaxar Sulfate 2.08 Mg Tablet, 2.08 MG PO HS, (Reported) Constitutional: no symptoms reported EENTM: no symptoms reported Respiratory: no symptoms reported Cardiovascular: no symptoms reported Gastrointestinal: no symptoms reported Genitourinary: no symptoms reported : No Musculoskeletal: see HPI Skin: see HPI Psychiatric/Neurological: No Symptoms Reported Hematologic/Lymphatic: No Symptoms Reported Immunological/Allergic: no symptoms reported Past Theuzoc-Dcmgzz-Hoatfw Hx Patient Social History Alcohol Use: Denies Use Recreational Drug Use: No Smoking Status: Never a Smoker 2nd Hand Smoke Exposure: No Recent Foreign Travel: No Contact w/Someone Who Travel: No Recent Infectious Disease Expo: No Recent Hopitalizations: No Immunizations Up To Date Tetanus Booster (TDap): Unknown Date of Pneumonia Vaccine: Jun 15, 2014 Date of Influenza Vaccine: Apr 23, 2017 Seasonal Allergies Seasonal Allergies: No Surgeries History of Surgeries: Yes (hysterectomy; CBAG) Surgeries: CABG, Gallbladder, Hysterectomy Respiratory History of Respiratory Disorde: Yes Respiratory Disorders: Pulmonary Embolism Currently Using CPAP: No Currently Using BIPAP: Yes Cardiovascular History of Cardiac Disorders: Yes (CBAG) Cardiac Disorders: Coronary Artery Disease, High Cholesterol, Hypertension, Peripheral Vascular Neurological History of Neurological Disord: Yes Neurological Disorders: Neuropathy Reproductive System Hx Reproductive Disorders: 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 Genitourinary History of Genitourinary Disor: Yes Genitourinary Disorders: Bladder Infection Gastrointestinal History of Gastrointestinal Di: Yes Gastrointestinal Disorders: Gastroesophageal Reflux, Ulcer Musculoskeletal History of Musculoskeletal Dis: Yes (amputation toes) Musculoskeletal Disorders: Arthritis Endocrine History of Endocrine Disorders: Yes Endocrine Disorders: Diabetes, Insulin dep HEENT History of HEENT Disorders: No Loss of Vision: Denies Hearing Impairment: Hard of Hearing Cancer History of Cancer: No Psychosocial History of Psychiatric Problem: No Integumentary History of Skin or Integumenta: No Blood Transfusions History of Blood Disorders: No Family Medical History Significant Family History: No Pertinent Family Hx Physical Exam Vital Signs Vital Sign - Last 12Hours 07/29/17 13:37 Temp 98.0 Pulse 74 Resp 18 B/P (MAP) 136/103 (114) Pulse Ox 97 Capillary Refill : Less Than 3 Seconds General Appearance: No Apparent Distress, WD/WN HEENT: PERRL/EOMI, Normal ENT Inspection Respiratory: Lungs Clear, Normal Breath Sounds, No Accessory Muscle Use, No Respiratory Distress Cardiovascular: Regular Rate, Rhythm, No Edema, Normal Peripheral Pulses Gastrointestinal: Normal Bowel Sounds, Non Tender, Soft Extremity: Other (Amputations of the first 2 toes on the right and the third toe on the left. There is a 2-3 cm erythematous patch on the medial aspect of the left ankle. Distal to that there is ecchymosis. The third toe on the right foot is edematous and erythematous. There is dried blood around the nailbed. There is no active bleeding on either foot.) Progress/Results/Core Measures Suspected Sepsis Recent Fever Within 48 Hours: No Infection Criteria Present: None New/Unexplained Altered Menta: No Sepsis Screen: No Definite Risk Sepsis Diagnosis: SIRS Temperature:98.0 Pulse: 74 Respiratory Rate: 18 Blood Pressure 103 / Mean: Results/Orders My Orders Orders - CHITO FORD MD Ankle, Left, 3 Views (07/29/17 14:20) Foot, Right, 3 View (07/29/17 14:23) Vital Signs/I&O Capillary Refill : Less Than 3 Seconds Progress Note : Progress Note X-rays were negative for acute fracture or osteomyelitis. A small needlelike density was seen on the right foot x-ray in the plantar region. Patient states she frequently has pain in this area but is not aware of any foreign body that she may have obtained. 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 I advised that she discuss this foreign body with a surgeon if she ever has work done on her foot again. I suspect the abnormal markings and bursting sensation of pain she fell on the left ankle were related to a small ruptured vessel. Diagnostic Imaging Diagonstic Imaging: Xray Plain Films/CT/US/NM/MRI: other (Right foot) Comments Right foot x-ray viewed by me and report reviewed. See report below: NAME: KELSEA HAWK [facility] REC#: [id number] PT STATUS: DEP ER : 1940 PHYSICIAN: CHITO FORD MD ADMIT DATE: 07/29/17/ER Signed Date of Exam: 07/29/17 FOOT, RIGHT, 3 VIEW INDICATION: Right foot pain. COMPARISON: None. FINDINGS: Three views of the right foot demonstrate a needle foreign body in the plantar soft tissues posterior to the distal tarsal bones. This is only seen on the lateral view. 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 Degenerative changes are seen involving most of the tarsal and metatarsal articulations. There is no acute fracture or dislocation. There is no soft tissue gas. Atherosclerosis is present. IMPRESSION: 1. Linear needlelike foreign body in the plantar soft tissues. 2. Degenerative joint disease and prior amputations. 3. No acute fracture or dislocation. 4. Atherosclerosis. Dictated by: Dictated on workstation # [id number] Dict: 07/29/17 1441 Trans: 07/29/17 1543 Interpreted by: TRU CASTELLANOS Electronically signed by: TRU CASTELLANOS 07/29/17 1543 Diagonstic Imaging: Xray Plain Films/CT/US/NM/MRI: ankle Comments Left ankle x-ray reviewed by me and report reviewed. See report below: NAME: KELSEA HAWK [facility] REC#: [id number] PT STATUS: DEP ER : 1940 PHYSICIAN: CHITO FORD MD ADMIT DATE: 07/29/17/ER Signed Date of Exam: 07/29/17 ANKLE, LEFT, 3 VIEWS INDICATION: Left ankle pain. COMPARISON: None. FINDINGS: Three views of left ankle demonstrate mild degenerative joint disease of the visualized tarsal articulations. There is no fracture or dislocation. No bony erosion seen. Atherosclerosis is present. No foreign body. IMPRESSION: 1. Degenerative joint disease without fracture or dislocation. 2. Atherosclerosis. Dictated by: Dictated on workstation # [id number] Dict: 07/29/17 1440 Trans: 07/29/17 1543 Interpreted by: TRU CASTELLANOS Electronically signed by: TRU CASTELLANOS 07/29/17 1543 Departure Impression Impression: Primary Impression: Cellulitis, toe Qualified Codes: L03.031 - Cellulitis of right toe Additional Impressions: Vascular rupture Foreign body in right foot Qualified Codes: S90.851A - Superficial foreign body, right foot, initial encounter Disposition: HOME, SELF-CARE Condition: Improved Departure-Patient Inst. Decision time for Depature: 15:16 Referrals: MARLENI AKHTAR MD (PCP) Primary Care Physician PRABHA HILL (Family) Primary Care Physician Patient Instructions: Cellulitis (Skin Infection), Adult (DC) Add. Discharge Instructions: Complete your antibiotic as prescribed. Follow-up with your primary care provider within the next week for further evaluation of your toe. Consider establishing with a drawing press operator for maintenance diabetic foot care. If surgery is ever required on your right foot in the future, ask your surgeon about the foreign body on the plantar surface. Return to care if symptoms worsen. All discharge instructions reviewed with patient and/or family. Voiced understanding. Scripts Doxycycline Hyclate (Doxycycline Hyclate) 100 Mg Tablet 100 MG PO BID, #20 TAB Prov: CHITO FORD MD 07/29/17 Copy Copies To 1: MARLENI AKHTAR MD, JOSHUA T MD Jul 29, 2017 15:18
[2017-07-29] MEDS ORDERED: DOXY100T2 PO (15:19)
[2017-07-29 15:25] VITALS: BP 136/103
== END 2017-07-29 15:25 | disposition home or self-care (01) ==
LOC: EDUNIT# 13:21 → ER 13:23
DX: S95.901A Unspecified injury of unspecified blood vessel at ankle and foot level, right leg, initial encounter (principal); S90.851A Superficial foreign body, right foot, initial encounter; L03.031 Cellulitis of right toe; I25.10 Atherosclerotic heart disease of native coronary artery without angina pectoris; E78.00 Pure hypercholesterolemia, unspecified; I10 Essential (primary) hypertension; I73.9 Peripheral vascular disease, unspecified; K21.9 Gastro-esophageal reflux disease without esophagitis; E11.40 Type 2 diabetes mellitus with diabetic neuropathy, unspecified; Z87.19 Personal history of other diseases of the digestive system; Z79.82 Long term (current) use of aspirin; Z79.4 Long term (current) use of insulin; Z95.1 Presence of aortocoronary bypass graft; Z90.710 Acquired absence of both cervix and uterus; Z86.711 Personal history of pulmonary embolism; X58.XXXA Exposure to other specified factors, initial encounter
CPT/HCPCS: 73610; 73630; 99282

== ENCOUNTER → 2017-08-18 | Outpatient (CLI) | payer MEDICARE, MEDICAID ==
[~2017-08-18] MED LIST changes: +DOXY100T2 PO; -ROSU10TA24 PO; +ROSU10TA26 PO
== END ==
LOC: WOUNDCARE 09:05
PROVIDERS: ATTEND Nurse Practitioner
DX: E11.621 Type 2 diabetes mellitus with foot ulcer (principal); L97.512 Non-pressure chronic ulcer of other part of right foot with fat layer exposed
CPT/HCPCS: 11042

== ENCOUNTER → 2017-08-25 | Outpatient (CLI) | payer MEDICARE, MEDICAID | LOC: WOUNDCARE 09:40 | PROVIDERS: ATTEND Nurse Practitioner | DX: E11.621 Type 2 diabetes mellitus with foot ulcer (principal); L97.512 Non-pressure chronic ulcer of other part of right foot with fat layer exposed | CPT/HCPCS: 97597 ==

== ENCOUNTER → 2017-09-01 | Outpatient (CLI) | payer MEDICARE, MEDICAID ==
[~2017-09-01] MED LIST changes: +HYDR-34 PO; -HYDR-3816 PO
== END ==
LOC: WOUNDCARE 09:24
PROVIDERS: ATTEND Nurse Practitioner
DX: E11.621 Type 2 diabetes mellitus with foot ulcer (principal); L97.512 Non-pressure chronic ulcer of other part of right foot with fat layer exposed
CPT/HCPCS: 99212

== ENCOUNTER → 2017-10-08 | Outpatient (CLI) | payer MEDICARE, MEDICAID ==
--- NOTE | 2017-10-08 19:34 | Diagnostic Imaging Report ---
Digital mammogram bilateral screening. This study is compared with the prior exam of 10/16/2015. At this time, there are no current complaints. The current study was also evaluated with a Computer Aided Detection (CAD) system. FINDINGS: There are scattered fibroglandular densities in both breasts which could obscure a lesion. Overall, there does not appear to have been any significant change when compared to the prior exam. No primary or secondary sign of malignancy is noted. IMPRESSION: 1. There is no radiographic evidence for malignancy. 2. The patient should have her annual bilateral screening mammogram on schedule in September of 2018. ACR BI-RADS Category 1: Negative. Result letter will be mailed to the patient. Note: At least 10% of breast cancer is not imaged by mammography. Dictated by: Dictated on workstation # [id number]
== END ==
LOC: RAD 15:42
PROVIDERS: ATTEND Nurse Practitioner Community Health
DX: Z12.31 Encounter for screening mammogram for malignant neoplasm of breast (principal)
CPT/HCPCS: 77067

== ENCOUNTER → 2017-11-26 | Outpatient (CLI) | payer MEDICARE, MEDICAID ==
[~2017-11-26] MED LIST changes: -CITA20TA7 PO; +CITA20TA9 PO; +GADOBUTROL 10 MMOL/10 ML (GADAVIST) VIAL IV ONE
[2017-11-26 11:34] LABS: CALCIUM 9.3 MG/DL (8.5-10.1); CREATININE SERUM 0.99 MG/DL (0.60-1.30); POTASSIUM 4.6 MMOL/L (3.6-5.0)
--- NOTE | 2017-11-26 12:30 | Diagnostic Imaging Report ---
PROCEDURE: MR imaging of the brain with and without contrast. TECHNIQUE: Multiplanar, multisequence MR imaging of the brain was performed with and without contrast. INDICATION: Severe headache. FINDINGS: Ventricles and sulci are prominent consistent with the patient's age. Moderate periventricular and subcortical white matter signal abnormalities are noted, likely on the basis of chronic microvascular ischemia. No diffusion restriction is identified to suggest acute ischemia. The normal expected flow voids are identified in the carotid siphons. No sulcal effacement or midline shift is identified. No acute intra-axial or extra-axial hemorrhage is detected. No abnormal enhancement following contrast administration is seen. Corpus callosum is unremarkable. The sella and parasellar structures are unremarkable. IMPRESSION: Changes of chronic microvascular ischemia. No acute intracranial process is detected. Dictated by: Dictated on workstation # [id number]
== END ==
LOC: RAD 11:00
PROVIDERS: ATTEND Nurse Practitioner Community Health
DX: G93.89 Other specified disorders of brain (principal); G20 Parkinson's disease
CPT/HCPCS: 36415; 70553; 80048

== ENCOUNTER → 2018-04-06 | Outpatient (CLI) | payer MEDICARE, MEDICAID ==
[~2018-04-06] MED LIST changes: -GADOBUTROL 10 MMOL/10 ML (GADAVIST) VIAL IV ONE; -ROSU10TA26 PO; +ROSU10TA27 PO
== END ==
LOC: WOUNDCARE 08:48
PROVIDERS: ATTEND Nurse Practitioner
DX: E11.621 Type 2 diabetes mellitus with foot ulcer (principal); L97.522 Non-pressure chronic ulcer of other part of left foot with fat layer exposed; L03.116 Cellulitis of left lower limb
CPT/HCPCS: 11042; 73630

== ENCOUNTER → 2018-04-06 | Outpatient (CLI) | payer MEDICARE, MEDICAID ==
--- NOTE | 2018-04-06 18:02 | Diagnostic Imaging Report ---
EXAMINATION: Left foot at 11:09 a.m. INDICATION: Foot pain. Three views were obtained. FINDINGS: The previous study of 03/05/2016 noted that the middle and distal phalanges and the distal two-thirds of the proximal phalanx of the third digit had been amputated. The distal phalanx of the second digit had also been amputated. In the interval since the prior exam, the remaining portion of the proximal phalanx of the third digit has been amputated as well. There is soft tissue edema about the middle phalanx of the second digit. There is no sign of bony destruction in this area to suggest osteomyelitis, however. Even so, if clinical concern regarding osteomyelitis persists, then MRI would be recommended for additional evaluation. In the interval since the previous study, there does appear to have been some destruction of the head of the third metatarsal. This finding could be chronic in nature, but the third metatarsal head could also be further evaluated for osteomyelitis by MRI. There is no other acute bony abnormality appreciated. The calcaneal spur seen on the prior study is again evident. The soft tissues are unremarkable. IMPRESSION: 1. In the interval since the prior study, the remaining portion of the proximal phalanx of the third digit has been amputated. 2. There is irregularity of the head of the third metatarsal. This could be related to osteomyelitis, either chronic or acute. There is also soft tissue edema about the tip of the second digit. If clinically indicated, MRI would be recommended for further evaluation of both the second and third digits. Dictated by: Dictated on workstation # [id number]
== END ==
LOC: RAD 10:34
PROVIDERS: ATTEND Nurse Practitioner
DX: E11.621 Type 2 diabetes mellitus with foot ulcer (principal); L97.522 Non-pressure chronic ulcer of other part of left foot with fat layer exposed; L03.116 Cellulitis of left lower limb; Z89.422 Acquired absence of other left toe(s)
CPT/HCPCS: 73630

== ENCOUNTER → 2018-04-15 | Outpatient (CLI) | payer MEDICARE, MEDICAID | LOC: WOUNDCARE 10:05 | PROVIDERS: ATTEND Nurse Practitioner | DX: E11.621 Type 2 diabetes mellitus with foot ulcer (principal); L97.522 Non-pressure chronic ulcer of other part of left foot with fat layer exposed; L03.116 Cellulitis of left lower limb | CPT/HCPCS: 99212 ==

== ENCOUNTER 2018-11-09 12:29 | Emergency (ER) | payer MEDICARE, MEDICAID ==
[~2018-11-09] VITALS: Ht 160 cm; Wt 78.0 kg
--- OUTSIDE RECORDS SUMMARY | 2018-11-09 12:34 | XMS REPORT | Clinical Summary ---
Author Author [facility] Organization [facility] Address Unknown Phone Unavailable Care Team Providers Care Spiral Spring Winder Name Role Phone Emeka Ramirez MD Unavailable Adelita De La O MD Unavailable Kirstie Paez DO PCP Leopoldo Almanzar MD Unavailable Source Comments Some departments are not documenting in the electronic medical record. If you do not see the information that you expected, contact Release of Information in the Health Information Management department at [phone] for further assistance in locating additional records.[facility] Allergies Comments Active Allergy Reactions Severity Noted Date Sulfamethoxazole-Trimetho HIVES High 2012 prim Penicillins HIVES 2012 Was under sedation and had reaction that is unknown and the hospital was destroyed in [facility]. Protamine UNKNOWN, SEE 2012 COMMENTS Sulfa (Sulfonamide HIVES, NAUSEA 2012 Antibiotics) AND VOMITING Medications End Date Status Medication Sig Dispensed Refills Start Date Active Fenofibric Acid Take 135 mg 0 (TRILIPIX) 135 mg CpDR by mouth daily. Active furosemide (LASIX) 40 mg Take 40 mg by 0 tablet mouth daily. Active aspirin EC 81 mg tablet Take 81 mg by 0 mouth at bedtime daily. Active rosuvastatin (CRESTOR) 10 Take 10 mg by 0 mg tablet mouth every morning. Active carvedilol (COREG) 6.25 Take 6.25 mg 0 mg tablet by mouth twice daily. Active isosorbide mononitrate SR Take 30 mg by 0 (IMDUR) 30 mg tablet mouth daily. Active citalopram (CELEXA) 20 mg Take 20 mg by 0 tablet mouth every morning. Active montelukast (SINGULAIR) Take 10 mg by 0 10 mg tablet mouth at bedtime daily. Active guaiFENesin LA (MUCINEX) Take 1,200 mg 0 600 mg tablet by mouth twice daily. Active INSULIN Inject 32 0 GLARGINE,HUM.REC.ANLOG Units into (LANTUS SC) area(s) as directed at bedtime daily. Active cholecalciferol (Vitamin Take 1,000 0 D3) (VITAMIN D-3) 1,000 Units by units tablet mouth daily. Active INSULIN ASPART (NOVOLOG Inject 7 0 SC) Units into area(s) as directed three times daily before meals. Active budesonide/formoterol Inhale 2 0 (SYMBICORT) 160/4.5 mcg Puffs by HFAA inhalation mouth twice daily. Active tiotropium (SPIRIVA) 18 Inhale 18 mcg 0 mcg capsule for inhaler by mouth daily. Active albuterol (VENTOLIN HFA, Inhale 2 0 PROAIR HFA) 90 Puffs by mcg/actuation inhaler mouth every 4 hours as needed. Active levofloxacin (LEVAQUIN) Take 500 mg 0 500 mg tablet by mouth every 48 hours. Active Fish Oil-Iron-3 Fatty Take 6 Caps 0 Acids (FISH OIL) by mouth at 360-1,200 mg cap bedtime daily. Active docusate (COLACE) 100 mg Take 400 mg 0 capsule by mouth twice daily. Active enalapril (VASOTEC) 2.5 Take 2.5 mg 0 mg tablet by mouth daily. Active folic acid (FOLVITE) 1 mg Take 5 mg by 0 tablet mouth daily. Active HYDROcodone/acetaminophen Take 1-2 Tabs 30 Tab 0 (NORCO; VICODIN) 5-325 mg by mouth 3 tabletIndications: every 4 hours Tracheomalacia as needed for Pain. Active clopiDOGrel (PLAVIX) 75 Take 1 Tab by 90 Tab 0 mg tabletIndications: mouth every 3 Tracheomalacia morning. 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 Ischemic cardiomyopathy 12/24/2012 HLD (hyperlipidemia) 12/24/2012 PVD (peripheral vascular disease) 12/24/2012 History of transient ischemic attack (TIA) 12/24/2012 History of GI bleed 12/24/2012 History of MRSA infection 12/24/2012 Overview: Sternal wound infection post-CABG IDDM (insulin dependent diabetes mellitus) 12/24/2012 Abnormal stress test 12/24/2012 CAD (coronary [...] Hyperfunctional dysphonia 2012 Type II diabetes mellitus Family History Medical History Relation Name Comments Heart Attack Father High Cholesterol Father Hypertension Father High Cholesterol Mother Hypertension Mother Blood Clots Sister Diabetes Son Relation Name Status Comments Brother Brother Alive Brother Alive Daughter Alive Father Mother Sister Alive Sister Alive Sister Alive Son Son Alive Social History Date Tobacco Use Types Packs/Day Years Used Never Smoker Alcohol Use Drinks/Week oz/Week Comments No Sex Assigned at Date Recorded Not on file Industry Job Start Date Occupation Not on file Not on file Not on file Travel End Travel History Travel Start No recent travel history available. Last Filed Vital Signs Time Taken Vital Sign Reading 01/15/2013 9:22 AM CDT Blood Pressure 143/59 01/15/2013 9:22 AM CDT Pulse 67 01/15/2013 9:22 AM CDT Temperature 36.8 C (98.2 F) - Respiratory Rate - 01/15/2013 9:22 AM CDT Oxygen Saturation 100% - Inhaled Oxygen - Concentration 01/15/2013 3:04 AM CDT Weight 90.2 kg (198 lb 13.7 oz) 01/12/2013 6:18 AM CDT Height 162.6 cm (5' 4") 01/12/2013 6:18 AM CDT Body Mass Index 34.13 Plan of Treatment Health Maintenance Due Date Last Done Comments PHYSICAL (COMPREHENSIVE) 1949 EXAM DTAP/TDAP VACCINES (1 - 1960 Tdap) SHINGLES RECOMBINANT 1992 VACCINE (1 of 2) OSTEOPOROSIS 2007 SCREENING/MONITORING PNEUMONIA (PCV13/PPSV23) 2007 VACCINES (1 of 2 - PCV13) INFLUENZA VACCINE 02/24/2019 Results Not on filefrom Last 3 Months Advance Directives Patient has advance care planning documents, and code status on file. For more information, please contact: [facility] [address] [place] [address] Date Inactivated Comments Code Status Date Activated 01/15/2013 3:41 PM Full Code 01/12/2013 6:41 AM Provider has discussed Code Status Yes w/Patient or Family? 12/26/2012 5:09 AM Full Code 12/24/2012 9:59 AM Provider has discussed Code Status No, more discussion w/Patient or Family? needed 09/18/2012 5:11 AM Full Code 09/16/2012 11:49 AM Provider has discussed Code Status No, discussion not w/Patient or Family? necessary based on Dx
--- OUTSIDE RECORDS SUMMARY | 2018-11-09 12:36 | XMS REPORT ---
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 Name Role Phone Migration, Doctor Unavailable Unavailable PROBLEMS Type Condition ICD9-CM Code LBH45-GE Code Onset Dates Condition Status SNOMED Code Problem Dementia with Lewy bodies G31.83 Active 885858570 Problem Coronary artery disease involving [place] coronary artery of [place] heart without angina pectoris I25.10 Active 6318007051364 Problem Dementia in other diseases classified elsewhere without behavioral disturbance F02.80 Active 168585754 Problem Other frontotemporal dementia G31.09 Active 341444461 Problem Unsteady gait R26.81 Active 17619082 Problem Hypoglycemia E16.2 Active 187639313 Problem Essential hypertension I10 Active 13811975 Problem 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 Active 623391496 Problem Neuropathy G62.9 Active 718702534 Problem Hypothyroidism (acquired) E03.9 Active 670003455 Problem Polydipsia R63.1 Active 18603439 Problem Dysthymia F34.1 Active 26315661 Problem Hypernatremia E87.0 Active 41667184 Problem Hyperlipemia, mixed E78.2 Active 642646433 Problem Hallucinations R44.3 Active 8098500 Problem Episodic cluster headache, not intractable G44.019 Active 901762096 Problem Parkinsons disease G20 Active 12803932 Problem Need for assistance due to unsteady gait R26.89 Active 561284797 Problem Type 2 diabetes mellitus with unspecified complications E11.8 Active 09818282 Problem Type 2 diabetes mellitus with diabetic neuropathy, unspecified E11.40 Active 96690546 Problem Dysuria R30.0 Active 43393658 Problem PVD (peripheral vascular disease) I73.9 Active 903281002 Problem Mixed stress and urge urinary incontinence N39.46 Active 387499424 Problem Neurogenic orthostatic hypotension G90.3 Active 800544132 Problem Anxiety F41.9 Active 89200719 Problem 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 Active [id number] ALLERGIES No Information ENCOUNTERS Encounter Location Date Diagnosis [facility] [id number] [place] [address] 21632- 5372 Oct, Encounter for Medicare annual wellness exam Z00.00 [place] [facility] [id number] [place] [address] 18135- 8303 Oct, Left shoulder pain M25.512 [facility] [id number] [place] [address] [id number] Sep, Dental examination Z01.20 and Caries K02.9 [place] [id number] [place] [address] 17137- 9134 Sep, Left shoulder pain M25.512 [place] [id number] [place] [address] 30957- 8357 Sep, Parkinsons disease G20 [facility] [facility] [address] 46506- 2383 Aug, Left shoulder pain M25.512 [facility] [facility] [id number] [place] [address] 38701- 9602 Aug, [place] [address] 92496- 5741 Aug, Need for assistance due to unsteady gait R26.89 ; Type 2 diabetes mellitus with diabetic neuropathy, unspecified E11.40 ; PVD ( peripheral vascular disease) I73.9 ; Parkinsons disease G20 and Dementia with Lewy bodies G31.83 [place] [id number] [place] [address] 79378- 1094 Jul, Left shoulder pain M25.512 [facility] [facility] [id number] [place] [address] 30649- 2613 Jun, Type 2 diabetes mellitus with unspecified complications E11.8 [facility] [facility] [id number] [place] [address] 90152- 4554 May, Left shoulder pain M25.512 [facility] [facility] [id number] [place] [address] 51880- 4395 May, Left shoulder pain M25.512 [place] [address] 93497- 2712 May, Parkinsons disease G20 [facility] [place] [address] 33116- 2539 Apr, Dysuria R30.0 and Hypothyroidism (acquired) E03.9 [facility] [place] [address] 67178- 8815 Apr, Dysuria R30.0 and Increased urinary frequency R35.0 [place] [address] 495965- 2039 Apr, [place] [address] 52264- 9543 Apr, Parkinsons disease G20 and Hypothyroidism (acquired) E03.9 [place] [address] 43139- 1476 Apr, [facility] [address] 92529 -8515 Apr, Dysuria R30.0 and Cystitis N30.90 [place] [address] 98604- 6330 28 Mar, 2018 Left shoulder pain M25.512 [place] [address] 29934- 6717 Mar, [place] [address] 16709- 2267 Mar, Hyperlipemia, mixed E78.2 ; Essential hypertension I10 and Coronary artery disease involving [place] coronary artery of [place] heart without angina pectoris I25.10 [place] [id number] [place] [address] 51661- 8360 Mar, Type 2 diabetes mellitus with unspecified complications E11.8 [place] [address] 72838- 6800 Mar, 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 [facility] [place] [id number] [place] [address] 34975- 5546 Mar, [facility] [place] [id number] [place] [address] 05877- 7447 Mar, [facility] [place] [id number] [place] [address] 85952- 4385 Mar, [facility] [place] [id number] [place] [address] 05348- 3261 Mar, [facility] [place] [id number] [place] [address] 71041- 7843 Mar, Cellulitis of left lower extremity L03.116 and Petechial rash R23.3 [facility] [id number] [place] [address] 99129- 1579 Feb, Left shoulder pain M25.512 [place] [address] [place] [address] 82472- 5912 Feb, Left shoulder pain M25.512 [facility] [id number] [place] [address] 83191- 9693 Feb, 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 [facility] [facility] [address] [place] [address] 24145- 6153 Jan, Left shoulder pain M25.512 [facility] [id number] [place] [address] 38120- 2815 Dec, Parkinsons disease G20 [facility] [id number] [place] [address] 74773- 5262 Dec, Left shoulder pain M25.512 [facility] [address] [place] [address] 50204- 9601 Dec, Type 2 diabetes mellitus with unspecified complications E11.8 ; Anxiety F41.9 ; Therapeutic drug monitoring Z51.81 and Analgesic use Z79.899 [facility] [place] [id number] [place] [address] 15118- 1618 November, [facility] [place] [id number] [place] [address] 43571- 4820 November, [facility] [place] [id number] [place] [address] 97456- 2114 November, Left shoulder pain M25.512 [place] [id number] [place] [address] 45974- 4842 Oct, [facility] [id number] [place] [address] 22295 -2341 Oct, [place] [id number] [place] [address] 02807- 3506 Oct, Parkinsons disease G20 [facility] [id number] [place] [address] 30523 -5437 Oct, Acute cystitis without hematuria N30.00 and Viral upper respiratory tract infection J06.9 [place] [id number] [place] [address] 99750- 4998 Oct, [place] [id number] [place] [address] 68331- 2250 Oct, Type 2 diabetes mellitus with unspecified complications E11.8 [facility] [id number] [place] [address] 17477- 5584 Oct, Left shoulder pain M25.512 [place] [id number] [place] [address] 45342- 3727 Oct, Type 2 diabetes mellitus with unspecified complications E11.8 ; Dysuria R30.0 and Neurogenic orthostatic hypotension G90.3 [place] [id number] [place] [address] 70541- 1061 Sep, Left shoulder pain M25.512 [place] [id number] [place] [address] 41491- 3988 Sep, Medicare annual wellness visit, initial Z00.00 ; Parkinsons disease G20 ; Type 2 diabetes mellitus with unspecified complications E11.8 ; Essential hypertension I10 ; Coronary artery disease involving [place] coronary artery of [place] heart without angina pectoris I25.10 ; Hypothyroidism (acquired ) E03.9 ; PVD (peripheral vascular disease) I73.9 ; Dysthymia F34.1 ; Hyperlipemia, mixed E78.2 ; Neuropathy G62.9 ; Encounter for immunization Z23 ; Encounter for other screening for malignant neoplasm of breast Z12.39 and Mixed stress and urge urinary incontinence N39.46 [place] [address] 22422- 4320 Aug, Parkinsons disease G20 [place] [address] 64645- 0039 Aug, Type 2 diabetes mellitus with unspecified complications E11.8 ; Left shoulder pain M25.512 and Hypotensive episode I95.9 [place] [address] 58172- 6751 09 Aug, 2017 Coronary artery disease involving [place] coronary artery of [place] heart without angina pectoris I25.10 [place] [address] 60744- 5166 Aug, Type 2 diabetes mellitus with unspecified complications E11.8 [place] [id number] [place] [address] 28416- 5810 Jul, Callus of foot L84 [place] [address] 67907- 3466 Jul, [place] [id number] [place] [address] 32311- 2274 Jul, Callus of foot L84 ; Episodic cluster headache, not intractable G44.019 ; Type 2 diabetes mellitus with unspecified complications E11.8 and Parkinsons disease G20 [place] [id number] [place] [address] 39772- 3101 Jul, [place] [id number] [place] [address] 11748- 4576 Jul, [place] [id number] [place] [address] 47011- 5465 Jun, Type 2 diabetes mellitus with unspecified complications E11.8 ; Unsteady gait R26.81 ; Forgetfulness R68.89 and Hallucinations R44.3 [place] [id number] [place] [address] 56895- 0827 Jun, [place] [id number] [place] [address] 42563- 5371 Jun, Left shoulder pain M25.512 [place] [id number] [place] [address] 09256- 8366 May, Hypernatremia E87.0 and Polydipsia R63.1 [place] [id number] [place] [address] 93650- 3859 May, Hypernatremia E87.0 and Polydipsia R63.1 [place] [id number] [place] [address] 42477- 0737 May, Hypoglycemia E16.2 ; Dysuria R30.0 ; Unsteadiness on feet R26.81 ; Forgetfulness R68.89 ; Type 2 diabetes mellitus with unspecified complications E11.8 and Yeast infection involving the vagina and surrounding area B37.3 [place] [id number] [place] [address] 39436- 7115 May, Acute cystitis without hematuria N30.00 [facility] [id number] [place] [address] 17184 -9697 Apr, Dysuria R30.0 and Acute cystitis without hematuria N30.00 [facility] [place] [id number] [place] [address] 22896- 0355 Apr, Hypernatremia E87.0 and Polydipsia R63.1 [place] [id number] [place] [address] 94344- 8755 Apr, Vertigo R42 and Type 2 diabetes mellitus with unspecified complications E11.8 [place] [id number] [place] [address] 91987- 7078 20 Mar, 2017 [facility] [place] [id number] [place] [address] 35887- 6740 19 Mar, 2017 Left shoulder pain M25.512 [place] [address] 76500- 7060 13 Mar, 2017 Vertigo R42 [place] [address] 27943- 4019 12 Mar, 2017 Polydipsia R63.1 [place] [id number] [place] [address] 44860- 9895 12 Mar, 2017 Polydipsia R63.1 [place] [id number] [place] [address] 51847- 2001 11 Mar, 2017 Vertigo R42 [place] [id number] [place] [address] 53955- 5751 07 Mar, 2017 Type 2 diabetes mellitus with unspecified complications E11.8 ; Vertigo R42 ; Polydipsia R63.1 ; Polyuria R35.8 ; Hypothyroidism ( acquired) E03.9 ; Abnormal urinalysis R82.90 and Dysthymia F34.1 [place] [address] [place] [address] 08476- 1296 05 Mar, 2017 Coronary artery disease of [place] artery with stable angina pectoris, unspecified whether [place] or transplanted heart I25.118 ; Systolic CHF, chronic I50.22 ; Hyperlipemia, mixed E78.2 and Essential hypertension I10 [facility] [id number] [place] [address] [id number] Feb, 2017 Dental caries K02.9 [facility] [place] [id number] [place] [address] 81356- 1840 10 Feb, 2017 Type 2 diabetes mellitus with diabetic neuropathy, unspecified E11.40 [place] [address] [address] Dec, Left shoulder pain M25.512 [facility] [place] [id number] [place] [address] 59367- 2389 Dec, [facility] [place] [id number] [place] [address] 95069- 3939 Dec, Type 2 diabetes mellitus with unspecified complications E11.8 [facility] [id number] [place] [address] [id number] Dec, Dental examination Z01.20 [facility] [place] [id number] [place] [address] 84489- 6149 Dec, Type 2 diabetes mellitus with diabetic neuropathy, unspecified E11.40 [facility] [place] [id number] [place] [address] 28066- 2380 Dec, [facility] [place] [id number] [place] [address] 59574- 8451 Dec, Type 2 diabetes mellitus with diabetic neuropathy, unspecified E11.40 [facility] [place] [id number] [place] [address] 77186- 3394 November, Left shoulder pain M25.512 [facility] [place] [address] [place] [address] 03223- 4549 November, [facility] [place] [id number] [place] [address] 86149- 4739 November, Type 2 diabetes mellitus with unspecified complications E11.8 and Dysuria R30.0 [facility] [place] [id number] [place] [address] 85844- 3452 Oct, Left shoulder pain M25.512 [facility] [place] [id number] [place] [address] 14304- 2089 Sep, Left shoulder pain M25.512 [facility] [place] [address] [place] [address] 37878- 5916 Sep, Pre-op testing Z01.818 [facility] [place] [address] [place] [address] 07944- 7469 Sep, Pre-op testing Z01.818 [place] [id number] [place] [address] 94821- 9085 Sep, Pre-op testing Z01.818 [facility] [place] [id number] [place] [address] 86440- 3117 Sep, Pre-op testing Z01.818 and Mouth pain K13.79 [place] [id number] [place] [address] 18314- 8394 Sep, Left shoulder pain M25.512 [place] [id number] [place] [address] 07767- 6901 08 Aug, 2016 Other eczema L30.8 [place] [address] 07657- 6097 06 Aug, 2016 PVD (peripheral vascular disease) I73.9 ; Type 2 diabetes mellitus with unspecified complications E11.8 ; Acute cystitis with hematuria N30.01 ; Other eczema L30.8 ; Dysuria R30.0 and Left shoulder pain M25.512 [facility] [address] [place] [address] 86290 -6251 Jul, Otalgia of right ear H92.01 and Blood in ear canal, right H92.21 [place] [id number] [place] [address] 20476- 5310 Jul, Arthralgia, unspecified joint M25.50 ; PVD (peripheral vascular disease) I73.9 and Neuropathy G62.9 [place] [id number] [place] [address] 48865- 8554 Jul, [place] [id number] [place] [address] 78537- 2417 Jun, Medicare annual wellness visit, initial Z00.00 ; Cervicalgia M54.2 ; Radiculopathy of cervical region M54.12 ; Encounter for immunization Z23 ; Type 2 diabetes mellitus with unspecified complications E11.8 and Essential hypertension I10 [facility] [place] [address] 03683- 7284 Jun, [facility] [place] [address] 69058- 1305 May, Hypothyroidism (acquired) E03.9 [facility] [place] [address] 47055- 5953 May, Dysuria R30.0 ; Essential hypertension I10 ; Hypothyroidism (acquired) E03.9 and PVD (peripheral vascular disease) I73.9 [facility] [address] 69510 -1620 May, Burning with urination R30.0 and Acute cystitis with hematuria N30.01 [facility] [place] [address] 54374- 5647 May, Dental examination Z01.20 [facility] [place] [address] 33101- 0054 May, Hypothyroidism (acquired) E03.9 [place] [address] 53555- 9520 Feb, [facility] [place] [address] 75355- 0135 Feb, 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 ; PVD ( peripheral vascular disease) I73.9 ; Type 2 diabetes mellitus with unspecified complications E11.8 and Essential hypertension I10 [facility] [place] [address] 16407- 0869 Jan, [place] [address] 42443- 0169 Jan, Hypothyroidism (acquired) E03.9 [facility] [place] [address] 32002- 7067 Jan, [place] [address] [place] [address] 68801- 4484 Jan, [place] [address] [place] [address] 67076- 1995 Jan, Type 2 diabetes mellitus with unspecified complications E11.8 ; 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 and Essential ( primary) hypertension I10 [place] [id number] [place] [address] 96414- 4387 Jan, Type 2 diabetes mellitus with unspecified complications E11.8 ; 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 ; Essential hypertension I10 and PVD (peripheral vascular disease) I73.9 [place] [id number] [place] [address] 67504- 5577 Jan, [place] [id number] [place] [address] 44551- 3337 Jan, [place] [id number] [place] [address] 86162- 5074 Jan, [place] [id number] [place] [address] 86565- 2509 Jan, Weakness R53.1 ; Fatigue, unspecified type R53.83 ; PVD ( peripheral vascular disease) I73.9 ; Acute osteomyelitis of other site M86.18 ; Type 2 diabetes mellitus with diabetic neuropathy, unspecified E11.40 and nursing home 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.4 [place] [address] [address]- 0785 Dec, [place] [id number] [place] [address] 57659- 9600 Dec, Type 2 diabetes mellitus with unspecified complications E11.8 [place] [address] [address]- 3836 Dec, [place] [id number] [place] [address] 90979- 3179 Dec, Pressure ulcer, unspecified pressure ulcer stage L89.90 and Type 2 diabetes mellitus with unspecified complications E11.8 [facility] [id number] [place] [address] 41105 -9724 Dec, Toe infection L08.9 [facility] [place] [id number] [place] [address] 65566- 7613 November, Dental caries K02.9 [facility] [place] [id number] [place] [address] 01671- 6781 November, [facility] [place] [id number] [place] [address] 76365- 6823 November, Dental examination Z01.20 [facility] [place] [id number] [place] [address] 83347- 3446 Sep, Lipoma of torso D17.1 and Thoracic neuritis M54.14 [facility] [place] [id number] [place] [address] 35403- 0243 Sep, [facility] [place] [id number] [place] [address] 94261- 4575 Aug, [facility] [id number] [place] [id number] -[phone] Jul, Dysuria R30.0 and UTI (urinary tract infection) N39.0 [facility] [place] [id number] [place] [address] 80237- [phone] Jun, Left shoulder pain M25.512 [facility] [place] [id number] [place] [address] 87217- [phone] May, Shoulder pain, left M25.512 [place] [id number] [place] [address] [phone] May, [facility] [place] [id number] [place] [address] [id number]- [phone] May, [facility] [place], [facility] [address] [place] [address] May, Left shoulder pain M25.512 [place] [address] [address]- [address]73 May, [place] [id number] [place] [address] [id number]- [phone] Apr, Encounter for immunization Z23 [place] [address] [address]191- 1631 Apr, Urinary tract infection, site not specified N39.0 ; Hypotension, unspecified I95.9 ; Type 2 diabetes mellitus with unspecified complications E11.8 and Generalized edema R60.1 [place] [address] [address]- [address] Apr, [place] [address] [address]- 9345 Mar, Diabetes with other specified manifestations, type II or unspecified type, not stated as uncontrolled 250.80 [place] [address] [place] [id number] [place] [address] 36865- 9071 Feb, Gout 274.9 and Diabetes 250.00 [place] [address] [place] [id number] [place] [address] 77990- 4689 Jan, [place] [address] [place] [id number] [place] [address] 77789- 2703 November, CAD (coronary artery disease) 414.00 and CHF (congestive heart failure) 428.0 [place] [address] [place] [id number] [place] [address] 11478- 5542 Oct, [place] [address] 8[address]88- 6745 Oct, [place] [address] [place] [id number] [place] [address] 81664- 2164 Oct, [place] [address] 7[address]71- 9653 Sep, [facility] [place] [facility] [address] [id number] [place] [address] 6388 Sep, [facility] [place] [facility] [address] [id number] [place] [address]- 6383 Sep, [facility] [place] [facility] [address] [id number] [place] [address]- 6858 Sep, [facility] [place] [facility] [address] [id number] [place] [address]- 2922 Aug, [facility] [place] [facility] [address] [id number] [place] [address]- 9356 Aug, [facility] [place] [facility] [address] [id number] [place] [address]- 2834 Aug, [facility] [place] [facility] [address] [facility] [id number] [place] [address]- 7465 Aug, [facility] [place] [facility] [address] [id number] [place] [address]- 3541 Aug, [facility] [place] [facility] [address] [facility] [id number] [place] [address]- 8895 Aug, [facility] [place] [facility] [address] [facility] [id number] [place] [address]- 5383 Aug, [facility] [place] [facility] [address] [facility] [id number] [place] [address]- 2830 Aug, [facility] [place] [facility] [address] [id number] [place] [address]- 2455 Jul, [facility] [place] [facility] [address] [id number] [place] [address]- 4632 Jul, [facility] [place] [facility] [address] [facility] [id number] [place] [address]- 4299 Jul, [facility] [place] [facility] [address] [facility] [id number] [place] [address]- 4012 Jul, [facility] [place] [facility] [address] [id number] [place] [address]- 4058 Jul, [facility] [address] [id number] [place] [address]- 4435 Jul, [facility] [address] [id number] [place] [address]- 5259 Jul, [facility] [address] [id number] [place] [address]- 8619 Jul, [facility] [address] [id number] [place] [address]- 8992 Jul, [facility] [address] [id number] [place] [address]- 7781 Jul, [facility] [address] [id number] [place] [address]- 4302 Jun, [facility] [address] [id number] [place] [address]- 9490 Jun, [facility] [address] [id number] [place] [address]- 0034 Jun, [facility] [address] [id number] [place] [address]- 8575 Jun, [facility] [address] [id number] [place] [address]- 9479 Jun, [facility] [address] [id number] [place] [address]- 9101 Jun, [facility] [address] [id number] [place] [address]- 2502 Jun, [facility] [place] [facility] [address] [id number] [place] [address]- 4921 Jun, [facility] [place] [facility] [address] [id number] [place] [address]- 1971 Jun, [facility] [address] [id number] [place] [address]- 0589 Jun, [facility] [place] [facility] [address] [id number] [place] [address]- 7146 May, [facility] [place] [facility] [address] [id number] [place] [address]- 0681 May, [facility] [place] [facility] [address] [id number] [place] [address]- 1749 Mar, [facility] [place] [facility] [address] [id number] [place] [address]- 3485 Mar, [facility] [place] [facility] [address] [id number] [place] [address]- 6714 Mar, [facility] [place] [facility] [address] [id number] [place] [address]- 0408 Mar, [facility] [place] [facility] [address] [id number] [place] [address]- 8276 Feb, [facility] [place] [facility] [address] [id number] [place] [address]- 4075 Feb, [facility] [place] [facility] [address] [id number] [place] [address]- 2442 Feb, [facility] [place] [facility] [address] [id number] [place] [address]- 8745 Jan, [facility] [place] [facility] [address] [id number] [place] [address]- 6844 Jan, [facility] [place] [facility] [address] [id number] [place] [address]- 8756 Jan, [facility] [place] [facility] [address] [id number] [place] [address]- 6474 Jan, [facility] [place] [facility] [address] [id number] [place] [address]- 4502 Jan, [facility] [place] [facility] [address] [id number] [place] [address]- 0697 Jan, [facility] [place] [facility] [address] [id number] [place] [address]- 9595 Jan, [facility] [place] [facility] [address] [id number] [place] [address]- 4711 Jan, [facility] [place] [facility] [address] [id number] [place] [address]- 2452 Jan, [facility] [place] [facility] [address] [id number] [place] [address]- 8995 Jan, [facility] [place] [facility] [address] [id number] [place] [address]- 0455 Dec, [facility] [place] [facility] [address] [id number] [place] [address]- 4647 Dec, [facility] [place] [facility] [address] [id number] [place] [address]- 8324 November, [facility] [place] [facility] [address] [id number] [place] [address]- 6099 November, [facility] [place] [facility] [address] [id number] [place] [address]- 3474 November, [facility] [place] [facility] [address] [id number] [place] [address]- 5535 November, [facility] [place] [facility] [address] [id number] [place] [address]- 8524 November, [facility] [place] [facility] [address] [id number] [place] [address]- 9216 November, [facility] [place] [facility] [address] [id number] [place] [address]- 8466 November, [facility] [place] [facility] [address] [id number] [place] [address]- 6716 Oct, [facility] [place] [facility] [address] [id number] [place] [address]- 2966 Oct, [facility] [place] [facility] [address] [id number] [place] [address]- 8912 Sep, [facility] [place] [facility] [address] [id number] [place] [address]- 0557 Sep, [facility] [place] [facility] [address] [id number] [place] [address]- 0167 Sep, [facility] [place] [facility] [address] [id number] [place] [address]- 0633 Sep, [facility] [place] [facility] [address] [id number] [place] [address]- 9706 Sep, [facility] [place] [facility] [address] [id number] [place] [address]- 9125 Sep, [facility] [place] [facility] [address] [id number] [place] [address]- 4356 Sep, [facility] [place] [facility] [address] [id number] [place] [address]- 1389 Sep, [facility] [place] [facility] [address] [id number] [place] [address]- 0445 Sep, [facility] [place] [facility] [address] [id number] [place] [address]- 7682 Sep, [facility] [place] [facility] [address] [id number] [place] [address]- 2664 Aug, [facility] [place] [facility] [address] [id number] [place] [address]- 2657 Aug, [facility] [place] [facility] [address] [id number] [place] [address]- 8293 Jul, [facility] [place] [facility] [address] [id number] [place] [address]- 5703 Jul, [facility] [place] [facility] [address] [id number] [place] [address]- 9005 Jul, [facility] [place] [facility] [address] [id number] [place] [address]- 2666 Jul, [facility] [place] [facility] [address] [id number] [place] [address]- 7579 Jul, [facility] [place] [facility] [address] [id number] [place] [address]- 3437 Jul, [facility] [place] [facility] [address] [id number] [place] [address]- 4330 Jun, [facility] [place] [facility] [address] [facility] [id number] [place] [address]- 5672 Jun, [facility] [place] [facility] [address] [id number], [place] [address]- 7371 Jun, [facility] [place] [facility] [address] [id number] [place] [address]- 1969 Jun, [facility] [place] [facility] [address] [id number] [place] [address]- 4905 May, [facility] [place] [facility] [address] [id number] [place] [address]- 1083 May, [facility] [place] [facility] [address] [id number], [place] [address]- 6527 May, [facility] [place] [facility] [address] [id number], [place] [address]- 1435 May, [facility] [place] [facility] [address] [id number], [place] [address]- 0036 May, [facility] [place] [facility] [address] [id number], [place] [address]- 4939 Apr, [facility] [place] [facility] [address] [id number], [place] [address]- 5807 31 Apr, 2013 [facility] [place] [facility] [address] [id number], [place] [address]- 3413 Apr, [facility] [place] [facility] [address] [id number], [place] [address]- 0963 Apr, [facility] [place] [facility] [address] [id number], [place] [address]- 0555 Apr, [facility] [place] [facility] [address] [id number] [place] [address]- 3598 Apr, [facility] [place] [facility] [address] [id number] [place] [address]- 9730 Apr, [facility] [place] [facility] [address] [id number] [place] [address]- 5140 Apr, [facility] [place] [facility] [address] [id number] [place] [address]- 2803 Apr, [facility] [place] [facility] [address] [id number] [place] [address]- 3888 Apr, [facility] [place] [facility] [address] [id number] [place] [address]- 6432 Apr, [facility] [place] [facility] [address] [id number] [place] [address]- 3255 Apr, [facility] [place] [facility] [address] [id number] [place] [address]- 7329 Mar, [facility] [place] [facility] [address] [id number] [place] [address]- 7177 Mar, [facility] [place] [facility] [address] [id number] [place] [address]- 5132 Feb, [facility] [place] [facility] [address] [id number] [place] [address]- 7079 Jan, [facility] [place] [facility] [address] [id number] [place] [address]- 2115 Jan, [facility] [place] [facility] [address] [id number] [place] [address] 2543 Jan, [facility] [place] [facility] [address] [id number] [place] [address]- 4210 Jan, [facility] [place] [facility] [address] [id number] [place] [address]- 9942 Dec, [facility] [place] [facility] [address] [id number] [place] [address]- 8909 Dec, [facility] [place] [facility] [address] [id number] [place] [address]- 1112 Dec, [facility] [address] [id number] [place] [address]- 9210 Dec, [facility] [address] [id number] [place] [address]- 8438 Dec, [facility] [address] [id number] [place] [address]- 8843 Dec, [facility] [address] [id number] [place] [address]- 0314 05 Dec, 2012 [facility] [address] [id number] [place] [address]- 5537 November, [facility] [address] [id number] [place] [address]- 2473 November, [facility] [address] [id number] [place] [address]- 2042 November, [facility] [address] [id number] [place] [address]- 2523 Oct, [facility] [address] [id number] [place] [address]- 7495 Oct, [facility] [address] [id number] [place] [address]- 7226 Oct, [facility] [address] [id number] [place] [address]- 2920 Oct, [facility] [address] [id number] [place] [address]- 4559 Oct, [facility] [place] [facility] [address] [id number] [place] [address]- 5482 Sep, [facility] [place] [facility] [address] [id number] [place] [address]- 3065 Sep, [facility] [address] [id number] [place] [address]- 6434 Sep, [facility] [address] [id number] [place] [address]- 3997 Sep, [facility] [place] [facility] [address] [id number] [place] [address]- 1806 Aug, [facility] [address] [id number] [place] [address]- 8696 Aug, [facility] [place] [facility] [address] [id number] [place] [address]- 1750 Aug, [facility] [address] [id number] [place] [address]- 0576 Aug, [facility] [address] [id number] [place] [address]- 6113 Jul, [facility] [address] [facility] [id number] [place] [address]- 7242 Jul, [facility] [address] [id number] [place] [address]- 4197 Jun, [facility] [address] [id number] [place] [address]- 3545 Jun, [facility] [address] [facility] [id number] [place] [address]- 2660 Jun, [facility] [address] [id number] [place] [address]- 3419 Jun, [facility] [place] [facility] [address] [id number] [place] [address]- 5985 May, [facility] [place] [facility] [address] [id number] [place] [address]- 8828 May, [facility] [place] [facility] [address] [id number] [place] [address]- 3544 May, [facility] [place] [facility] [address] [facility] [id number] [place] [address]- 3133 May, [facility] [place] [facility] [address] [id number] [place] [address]- 8757 Apr, [facility] [place] [facility] [address] [id number] [place] Apr, [facility] [place] [facility] [address] [id number] [place]44 Apr, [facility] [place] [facility] [address] [id number] [place] [address]- 4532 Apr, [facility] [place] [facility] [address] [id number] [place] [address]- 3463 Apr, [facility] [place] [facility] [address] [id number] [place] [address]- 3991 Apr, [facility] [place] [facility] [address] [id number] [place] [address]- 0606 Apr, [facility] [place] [facility] [address] [id number] [place] [address]- 6281 Apr, [facility] [place] [facility] [address] [id number] [place] [address]- 1474 Apr, [facility] [place] [facility] [address] [id number] [place] [address]- 5436 Apr, [facility] [place] [facility] [address] [id number] [place] [address]- 6884 Feb, [facility] [place] [facility] [address] [id number] [place] [address]- 4760 Feb, [facility] [place] [facility] [address] [id number] [place] [address]- 0615 Jan, [facility] [place] [facility] [address] [id number] [place] [address]- 2397 Jan, [facility] [place] [facility] [address] [id number] [place] [address] 2543 Jan, [facility] [place] [facility] [address] [id number] [place] [address]- 9910 Jan, [facility] [place] [facility] [address] [id number] [place] [address]- 4782 Jan, [facility] [place] [facility] [address] [id number] [place] [address]- 4816 Jan, [facility] [place] [facility] [address] [id number] [place] [address]- 2586 Dec, [facility] [place] [facility] [address] [id number] [place] [address]- 5996 November, [facility] [place] [facility] [address] [id number] [place] [address]- 9958 November, [facility] [place] [facility] [address] [id number] [place] [address]- 0586 November, [facility] [place] [facility] [address] [id number] [place] [address]- 4586 Sep, [facility] [place] [facility] [address] [id number] [place] [address]- 3427 Sep, [facility] [place] [facility] [address] [id number] [place] [address]- 4327 Sep, [facility] [place] [facility] [address] [id number] [place] [address]- 2550 Sep, [facility] [place] [facility] [address] [id number] [place] [address]- 6436 Sep, [facility] [place] [facility] [address] [id number] [place] [address]- 2546 Sep, [facility] [place] [facility] [address] [id number] [place] [address]- 9186 Aug, [facility] [place] [facility] [address] [id number] [place] [address]- 5536 Aug, [facility] [place] [facility] [address] [id number] [place] [address]- 2546 Aug, [facility] [place] [facility] [address] [id number] [place] [address]- 2331 11 Jul, 2011 [facility] [address] [id number] [place] [address]- 2084 Jul, [facility] [address] [id number] [place] [address]- 1299 10 Jul, 2011 [facility] [address] [id number] [place] [address]- 6157 Jul, [facility] [address] [id number] [place] [address]- 0512 Jun, [facility] [address] [id number] [place] [address]- 9664 Jun, [facility] [address] [id number] [place] [address]- 9886 Jun, [facility] [address] [id number] [place] [address]- 5011 Jun, [facility] [address] [id number] [place] [address]- 0517 Jun, [facility] [address] [id number] [place] [address] Jun, [facility] [address] [id number] [place] [address] May, [facility] [address] [id number] [place] [address] May, [facility] [address] [id number] [place] [address] May, [facility] [address] [id number] [place] [address] Apr, [facility] [place] [facility] [address] [id number] [place] [address] Jan, [facility] [address] [id number] [place] [address] Jun, [facility] [address] [id number] [place] [address] 20 Jun, 2010 [facility] [place] [facility] [address] [id number] [place] [address] 1996 15 Jun, 2010 [facility] [place] [facility] [address] [id number] [place] [address] 15 Jun, 2010 [facility] [place] [facility] [address] [id number] [place] [address] 15 Jun, 2010 [facility] [address] [id number] [place] [address] 13 Jun, 2010 [facility] [place] [facility] [address] [id number] [place] [address] 13 Jun, 2010 [facility] [address] [id number] [place] [address] Apr, [facility] [address] [id number] [place] [address] 17 Feb, 2010 [facility] [place] [facility] [address] [id number] [place] [address] 15 Aug, 2009 [facility] [place] [facility] [address] [id number] [place] [address] Jul, [facility] [place] [facility] [address] [id number] [place] [address] 254 Jul, [facility] [place] [facility] [address] [id number] [place] [address]- [address] 29 Jun, 2009 [facility] [place] [facility] [address] [id number] [place] [address] 2546 Jun, [facility] [place] [facility] [address] [id number] [place] [address] 28 Jun, 2009 [facility] [place] [facility] [address] [id number] [place] [address] [address] 22 Jun, 2009 [facility] [place] [facility] [id number] [address] Jun, [facility] [place] [id number] [place] [address] Jun, [facility] [place] [id number] [address] Jun, [facility] [place] [id number], [place] [address] May, [facility] [place] [id number] [place] [address] May, [facility] [place] [id number] [place] [address] May, [facility] [place] [id number] [place] [address] May, [facility] [place] [id number] [place] [address] May, [facility] [place] [id number], [place] [address] May, [facility] [place] [id number], [place] [address] May, [facility] [place] [id number], [place] [address] Apr, [facility] [place] [id number], [place] [address] Apr, [facility] [place] [address], [place] [address] Jan, [facility] [place] [id number], [place] [address] Oct, IMMUNIZATIONS No Known Immunizations SOCIAL HISTORY Never Assessed REASON FOR VISIT EMR-[facility] [place] PLAN OF CARE VITAL SIGNS MEDICATIONS Unknown Medications RESULTS No Results PROCEDURES No Known procedures INSTRUCTIONS MEDICATIONS ADMINISTERED No Known Medications MEDICAL (GENERAL) HISTORY Type Description Date Medical History Stress test 11/2014 Mild hypokinesis of ant left ventricle. EF 48% Medical History DM Type II Medical History heart attak Medical History hypertension Medical History quadruple bypass Medical History gout Medical History Eye exam 03/2015 Severe Retinopathy OU and Cataract OS Medical History tracheal stenosis with surgery 2012 [facility] Medical History peripheral artery disease Medical History dementia with atypical features (hallucinations); differential dx violette body and Parkinson's Surgical History quadruple bypass 2006 Surgical History trach surgery 2006 Surgical History Removal of big toe, 2nd, and 3rd toes Surgical History hysterectomy Surgical History tonsillectomy Surgical History choecystectomy Surgical History Lt toe amputated January 2016 Surgical History tubes in ears bilaterally 2015 Surgical History put a stint in above the right knee Aug 2016 Surgical History Retinal Surgery- Right Eye 2017 Surgical History Left Eye Laser Sugery (history of 10 eye surgeries) 07/2017 Surgical History Left foot 2nd toe removed 05/25/2018 Hospitalization History surgeries Hospitalization History MRSA Hospitalization History Danilo for no circulation to lt foot/diabetic coma while in hospital January 2016
--- OUTSIDE RECORDS SUMMARY | 2018-11-09 12:37 | XMS REPORT ---
Author Author Migration, Doctor Organization [facility] Address Unknown Phone Unavailable Care Team Providers Care Spares Scheduler Name Role Phone Migration, Doctor Unavailable Unavailable PROBLEMS Type Condition ICD9-CM Code [id number] Code Onset Dates Condition Status SNOMED Code Problem Dementia with Lewy bodies G31.83 Active 341137154 Problem Coronary artery disease involving [place] coronary artery of [place] heart without angina pectoris I25.10 Active 5300543613803 Problem Dementia in other diseases classified elsewhere without behavioral disturbance F02.80 Active 688250589 Problem Other frontotemporal dementia G31.09 Active 755669293 Problem Unsteady gait R26.81 Active 18267665 Problem Hypoglycemia E16.2 Active 536752544 Problem Essential hypertension I10 Active 12318009 Problem 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 Active 565244765 Problem Neuropathy G62.9 Active 748945549 Problem Hypothyroidism (acquired) E03.9 Active 091669358 Problem Polydipsia R63.1 Active 79864079 Problem Dysthymia F34.1 Active 70004855 Problem Hypernatremia E87.0 Active 35897883 Problem Hyperlipemia, mixed E78.2 Active 060486505 Problem Hallucinations R44.3 Active 9057381 Problem Episodic cluster headache, not intractable G44.019 Active 724504204 Problem Parkinsons disease G20 Active 27307653 Problem Need for assistance due to unsteady gait R26.89 Active 838887678 Problem Type 2 diabetes mellitus with unspecified complications E11.8 Active 17501731 Problem Type 2 diabetes mellitus with diabetic neuropathy, unspecified E11.40 Active 97393583 Problem Dysuria R30.0 Active 81217374 Problem PVD (peripheral vascular disease) I73.9 Active 452618697 Problem Mixed stress and urge urinary incontinence N39.46 Active 681435976 Problem Neurogenic orthostatic hypotension G90.3 Active 835135922 Problem Anxiety F41.9 Active 05096498 Problem 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 Active [id number] ALLERGIES No Information ENCOUNTERS Encounter Location Date Diagnosis [facility] [id number] [place] [address] 24903- 7094 Oct, Encounter for Medicare annual wellness exam Z00.00 [facility] [id number] [place] [address] 29035- 3311 Oct, Left shoulder pain M25.512 [facility] [id number] [place] [address] [id number] Sep, Dental examination Z01.20 and Caries K02.9 [facility] [id number] [place] [address] 30726- 0829 Sep, Left shoulder pain M25.512 [facility] [id number] [place] [address] 89025- 8345 Sep, Parkinsons disease G20 [facility] [address] 24814- 5306 Aug, Left shoulder pain M25.512 [facility] [id number] [place] [address] 83779- 8933 Aug, [facility] [address] 83679- 3414 Aug, Need for assistance due to unsteady gait R26.89 ; Type 2 diabetes mellitus with diabetic neuropathy, unspecified E11.40 ; PVD ( peripheral vascular disease) I73.9 ; Parkinsons disease G20 and Dementia with Lewy bodies G31.83 [facility] [id number] [place] [address] 34332- 6439 Jul, Left shoulder pain M25.512 [facility] [id number] [place] [address] 72011- 7118 Jun, Type 2 diabetes mellitus with unspecified complications E11.8 [facility] [id number] [place] [address] 09882- 5322 May, Left shoulder pain M25.512 [facility] [id number] [place] [address] 63034- 3125 May, Left shoulder pain M25.512 [facility] [address] 22014- 9214 May, Parkinsons disease G20 [facility] [address] 47492- 1797 Apr, Dysuria R30.0 and Hypothyroidism (acquired) E03.9 [facility] [address] 61887- 8261 Apr, Dysuria R30.0 and Increased urinary frequency R35.0 [facility] [address] 127631- 8090 Apr, [facility] [address] 88186- 3291 Apr, Parkinsons disease G20 and Hypothyroidism (acquired) E03.9 [facility] [address] 10697- 2452 Apr, [facility] [address] 19604 -1203 Apr, Dysuria R30.0 and Cystitis N30.90 [facility] [address] 20095- 8818 28 Mar, 2018 Left shoulder pain M25.512 [facility] [address] 94474- 7221 Mar, [facility] [address] 99965- 3009 Mar, Hyperlipemia, mixed E78.2 ; Essential hypertension I10 and Coronary artery disease involving bad [place] coronary artery of bad [place] heart without angina pectoris I25.10 [facility] [id number] [place] [address] 31240- 8990 Mar, Type 2 diabetes mellitus with unspecified complications E11.8 [facility] [address] 82427- 2523 Mar, 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 [facility] [id number] [place] [address] 91520- 3614 Mar, [facility] [id number] [place] [address] 26604- 5548 Mar, [facility] [id number] [place] [address] 94151- 4352 Mar, [facility] [id number] [place] [address] 20520- 1397 Mar, [facility] [id number] [place] [address] 98090- 4562 Mar, Cellulitis of left lower extremity L03.116 and Petechial rash R23.3 [facility] [id number] [place] [address] 67635- 5712 Feb, Left shoulder pain M25.512 [facility] [address] [place] [address] 19689- 8720 Feb, Left shoulder pain M25.512 [facility] [id number] [place] [address] 95187- 2502 Feb, 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 [facility] [address] [place] [address] 36402- 8257 Jan, Left shoulder pain M25.512 [facility] [id number] [place] [address] 42565- 7985 Dec, Parkinsons disease G20 [facility] [id number] [place] [address] 65971- 6386 Dec, Left shoulder pain M25.512 [facility] [address] [place] [address] 61728- 6623 Dec, Type 2 diabetes mellitus with unspecified complications E11.8 ; Anxiety F41.9 ; Therapeutic drug monitoring Z51.81 and Analgesic use Z79.899 [facility] [id number] [place] [address] 66118- 5503 November, [facility] [id number] [place] [address] 78494- 6711 November, [facility] [id number] [place] [address] 32990- 0409 November, Left shoulder pain M25.512 [facility] [id number] [place] [address] 94582- 8008 Oct, [facility] [id number] [place] [address] 86458 -0992 Oct, [facility] [id number] [place] [address] 66644- 9471 Oct, Parkinsons disease G20 [facility] [id number] [place] [address] 60710 -3722 Oct, Acute cystitis without hematuria N30.00 and Viral upper respiratory tract infection J06.9 [facility] [id number] [place] [address] 21889- 2219 Oct, [facility] [id number] [place] [address] 99290- 5775 Oct, Type 2 diabetes mellitus with unspecified complications E11.8 [facility] [id number] [place] [address] 42607- 8009 Oct, Left shoulder pain M25.512 [facility] [id number] [place] [address] 23500- 9378 Oct, Type 2 diabetes mellitus with unspecified complications E11.8 ; Dysuria R30.0 and Neurogenic orthostatic hypotension G90.3 [facility] [id number] [place] [address] 56760- 4903 Sep, Left shoulder pain M25.512 [facility] [id number] [place] [address] 62628- 8750 Sep, Medicare annual wellness visit, initial Z00.00 ; Parkinsons disease G20 ; Type 2 diabetes mellitus with unspecified complications E11.8 ; Essential hypertension I10 ; Coronary artery disease involving bad river [place] coronary artery of bad [place] heart without angina pectoris I25.10 ; Hypothyroidism (acquired ) E03.9 ; PVD (peripheral vascular disease) I73.9 ; Dysthymia F34.1 ; Hyperlipemia, mixed E78.2 ; Neuropathy G62.9 ; Encounter for immunization Z23 ; Encounter for other screening for malignant neoplasm of breast Z12.39 and Mixed stress and urge urinary incontinence N39.46 [facility] [address] 44678- 8860 Aug, Parkinsons disease G20 [facility] [address] 59000- 2031 Aug, Type 2 diabetes mellitus with unspecified complications E11.8 ; Left shoulder pain M25.512 and Hypotensive episode I95.9 [facility] [address] 70145- 6933 09 Aug, 2017 Coronary artery disease involving bad [place] coronary artery of bad [place] heart without angina pectoris I25.10 [facility] [address] 29321- 0771 Aug, Type 2 diabetes mellitus with unspecified complications E11.8 [facility] [id number] [place] [address] 95078- 4167 Jul, Callus of foot L84 [facility] [address] 10979- 7078 Jul, [facility] [id number] [place] [address] 65824- 2931 Jul, Callus of foot L84 ; Episodic cluster headache, not intractable G44.019 ; Type 2 diabetes mellitus with unspecified complications E11.8 and Parkinsons disease G20 [facility] [id number] [place] [address] 66933- 3773 Jul, [facility] [id number] [place] [address] 51174- 2831 Jul, [facility] [id number] [place] [address] 65462- 1572 Jun, Type 2 diabetes mellitus with unspecified complications E11.8 ; Unsteady gait R26.81 ; Forgetfulness R68.89 and Hallucinations R44.3 [facility] [id number] [place] [address] 96244- 4707 Jun, [facility] [id number] [place] [address] 15615- 5625 Jun, Left shoulder pain M25.512 [facility] [id number] [place] [address] 02582- 7336 May, Hypernatremia E87.0 and Polydipsia R63.1 [place] [place] [id number] [place] [address] 38197- 9468 May, Hypernatremia E87.0 and Polydipsia R63.1 [facility] [id number] [place] [address] 58209- 7226 May, Hypoglycemia E16.2 ; Dysuria R30.0 ; Unsteadiness on feet R26.81 ; Forgetfulness R68.89 ; Type 2 diabetes mellitus with unspecified complications E11.8 and Yeast infection involving the vagina and surrounding area B37.3 [facility] [id number] [place] [address] 89678- 5213 May, Acute cystitis without hematuria N30.00 [facility] [id number] [place] [address] 10194 -0646 Apr, Dysuria R30.0 and Acute cystitis without hematuria N30.00 [facility] [id number] [place] [address] 29401- 5021 Apr, Hypernatremia E87.0 and Polydipsia R63.1 [facility] [id number] [place] [address] 11246- 7576 Apr, Vertigo R42 and Type 2 diabetes mellitus with unspecified complications E11.8 [facility] [id number] [place] [address] 23534- 9949 20 Mar, 2017 [facility] [id number] [place] [address] 86071- 8249 19 Mar, 2017 Left shoulder pain M25.512 [facility] [address] 78754- 0843 13 Mar, 2017 Vertigo R42 [facility] [address] 46768- 1791 12 Mar, 2017 Polydipsia R63.1 [facility] [id number] [place] [address] 53447- 7238 12 Mar, 2017 Polydipsia R63.1 [facility] [id number] [place] [address] 54315- 9332 11 Mar, 2017 Vertigo R42 [facility] [id number] [place] [address] 16624- 2055 07 Mar, 2017 Type 2 diabetes mellitus with unspecified complications E11.8 ; Vertigo R42 ; Polydipsia R63.1 ; Polyuria R35.8 ; Hypothyroidism ( acquired) E03.9 ; Abnormal urinalysis R82.90 and Dysthymia F34.1 [facility] [id number] [place] [address] 83410- 2012 05 Mar, 2017 Coronary artery disease of bad [place] artery with stable angina pectoris, unspecified whether bad river band or transplanted heart I25.118 ; Systolic CHF, chronic I50.22 ; Hyperlipemia, mixed E78.2 and Essential hypertension I10 [facility] [id number] [place] [address] [id number] 16 Feb, 2017 Dental caries K02.9 [facility] [id number] [place] [address] 50857- 7101 10 Feb, 2017 Type 2 diabetes mellitus with diabetic neuropathy, unspecified E11.40 [facility] [address] [address]- 5851 Dec, Left shoulder pain M25.512 [facility] [id number] [place] [address] 16117- 3071 Dec, [facility] [id number] [place] [address] 17468- 8074 Dec, Type 2 diabetes mellitus with unspecified complications E11.8 [facility] [id number] [place] [address] [id number] Dec, Dental examination Z01.20 [facility] [id number] [place] [address] 01924- 1596 Dec, Type 2 diabetes mellitus with diabetic neuropathy, unspecified E11.40 [facility] [id number] [place] [address] 83020- 9586 Dec, [facility] [id number] [place] [address] 96158- 2925 Dec, Type 2 diabetes mellitus with diabetic neuropathy, unspecified E11.40 [facility] [id number] [place] [address] 28236- 4028 November, Left shoulder pain M25.512 [facility] [id number] [place] [address] 47258- 2989 November, [facility] [id number] [place] [address] 92787- 7257 November, Type 2 diabetes mellitus with unspecified complications E11.8 and Dysuria R30.0 [facility] [id number] [place] [address] 72480- 2912 Oct, Left shoulder pain M25.512 [facility] [id number] [place] [address] 00976- 5728 Sep, Left shoulder pain M25.512 [facility] [address] [place] [address] 26788- 0994 Sep, Pre-op testing Z01.818 [facility] [id number] [place] [address] 26518- 0455 Sep, Pre-op testing Z01.818 [facility] [id number] [place] [address] 33654- 6117 Sep, Pre-op testing Z01.818 [facility] [id number] [place] [address] 25256- 2023 Sep, Pre-op testing Z01.818 and Mouth pain K13.79 [facility] [id number] [place] [address] 71557- 0068 Sep, Left shoulder pain M25.512 [facility] [id number] [place] [address] 68436- 2616 08 Aug, 2016 Other eczema L30.8 [facility] [address] 82676- 5331 06 Aug, 2016 PVD (peripheral vascular disease) I73.9 ; Type 2 diabetes mellitus with unspecified complications E11.8 ; Acute cystitis with hematuria N30.01 ; Other eczema L30.8 ; Dysuria R30.0 and Left shoulder pain M25.512 [facility] [id number] [place] [address] 33989 -1144 Jul, Otalgia of right ear H92.01 and Blood in ear canal, right H92.21 [facility] [id number] [place] [address] 06260- 1624 Jul, Arthralgia, unspecified joint M25.50 ; PVD (peripheral vascular disease) I73.9 and Neuropathy G62.9 [facility] [id number] [place] [address] 65426- 6038 Jul, [facility] [id number] [place] [address] 12385- 3153 Jun, Medicare annual wellness visit, initial Z00.00 ; Cervicalgia M54.2 ; Radiculopathy of cervical region M54.12 ; Encounter for immunization Z23 ; Type 2 diabetes mellitus with unspecified complications E11.8 and Essential hypertension I10 [facility] [address] 50793- 2926 Jun, [facility] [address] 41222- 3974 May, Hypothyroidism (acquired) E03.9 [facility] [address] 88082- 2052 May, Dysuria R30.0 ; Essential hypertension I10 ; Hypothyroidism (acquired) E03.9 and PVD (peripheral vascular disease) I73.9 [facility] [address] 11521 -2284 May, Burning with urination R30.0 and Acute cystitis with hematuria N30.01 [facility] [address] 42024- 1378 May, Dental examination Z01.20 [facility] [address] 12326- 7906 May, Hypothyroidism (acquired) E03.9 [facility] [address] 91677- 8110 Feb, [facility] [address] 51415- 2759 Feb, 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 ; PVD ( peripheral vascular disease) I73.9 ; Type 2 diabetes mellitus with unspecified complications E11.8 and Essential hypertension I10 [facility] [address] 34697- 7356 Jan, [facility] [address] 13409- 5117 Jan, Hypothyroidism (acquired) E03.9 [facility] [address] 48977- 8145 Jan, [facility] [id number] [place] [address] 31149- 8389 Jan, [facility] [id number] [place] [address] 86505- 0017 Jan, Type 2 diabetes mellitus with unspecified complications E11.8 ; 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 and Essential ( primary) hypertension I10 [facility] [id number] [place] [address] 02858- 5961 Jan, Type 2 diabetes mellitus with unspecified complications E11.8 ; 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 ; Essential hypertension I10 and PVD (peripheral vascular disease) I73.9 [facility] [id number] [place] [address] 02258- 5581 Jan, [facility] [id number] [place] [address] 66079- 1339 Jan, [facility] [id number] [place] [address] 87705- 8135 Jan, [facility] [id number] [place] [address] 09734- 9774 Jan, Weakness R53.1 ; Fatigue, unspecified type R53.83 ; PVD ( peripheral vascular disease) I73.9 ; Acute osteomyelitis of other site M86.18 ; Type 2 diabetes mellitus with diabetic neuropathy, unspecified E11.40 and retirement 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.4 [facility] [address] [address]- 9673 Dec, [facility] [id number] [place] [address] 67016- 0415 Dec, Type 2 diabetes mellitus with unspecified complications E11.8 [facility] [address] [address]- 6262 Dec, [facility] [id number] [place] [address] 32101- 3388 Dec, Pressure ulcer, unspecified pressure ulcer stage L89.90 and Type 2 diabetes mellitus with unspecified complications E11.8 [facility] [id number] [place] [address] 18041 -2008 Dec, Toe infection L08.9 [facility] [id number] [place] [address] 42031- 8567 November, Dental caries K02.9 [facility] [id number] [place] [address] 79122- 9382 November, [facility] [id number] [place] [address] 65852- 0343 November, Dental examination Z01.20 [facility] [id number] [place] [address] 66580- 1686 Sep, Lipoma of torso D17.1 and Thoracic neuritis M54.14 [facility] [id number] [place] [address] 13648- 8694 Sep, [facility] [id number] [place] [address] 44745- 0612 Aug, [facility] [id number] [place] [address] 69912 -7963 Jul, Dysuria R30.0 and UTI (urinary tract infection) N39.0 [facility] [id number] [place] [address] 72948- 4752 Jun, Left shoulder pain M25.512 [facility] [id number] [place] [address] 10560- 1076 May, Shoulder pain, left M25.512 [facility] [id number] [place] [address] 66154- 4531 May, [facility] [id number] [place] [address] 28374- 3359 May, [facility] [address] [place] [address]- 0241 May, Left shoulder pain M25.512 [facility] [address] 37852- 9325 May, [facility] [id number] [place] [address] 16096- 0750 Apr, Encounter for immunization Z23 [facility] [address] 88530- 1637 Apr, Urinary tract infection, site not specified N39.0 ; Hypotension, unspecified I95.9 ; Type 2 diabetes mellitus with unspecified complications E11.8 and Generalized edema R60.1 [facility] [address] 63184- 6287 Apr, [facility] [address] 68692- 0993 Mar, Diabetes with other specified manifestations, type II or unspecified type, not stated as uncontrolled 250.80 [facility] [id number] [place] [address] 93415- 0623 Feb, Gout 274.9 and Diabetes 250.00 [facility] [id number] [place] [address] 97851- 7638 Jan, [facility] [id number] [place] [address]06- 2231 November, CAD (coronary artery disease) 414.00 and CHF (congestive heart failure) 428.0 [place] [address] [id number] [place] [address] [id number] [phone] Oct, [place] [address] [address] Oct, [place] [address] [id number] [place] [address] 42629- 6761 Oct, [place] [address] [address]- [address] Sep, [facility] [place] [facility] [address] [id number] [place] [address] Sep, [facility] [place] [facility] [address] [id number] [place] [address] Sep, [facility] [place] [facility] [address] [id number] [place] [address] Sep, [facility] [place] [facility] [address] [id number] [place] [address] Aug, [facility] [place] [facility] [address] [id number] [place] [address] Aug, [facility] [place] [facility] [address] [id number] [place] [address] Aug, [facility] [place] [facility] [address] [id number] [place] [address] Aug, [facility] [facility] [address] [id number] [place] [address] Aug, [facility] [place] [facility] [address] [id number] [place] [address] 8736 Aug, [facility] [place] [facility] [address] [id number] [place] [address] 8722 Aug, [facility] [place] [facility] [address] [id number] [place] [address]249 Aug, [facility] [place] [facility] [address] [id number] [place] [address] 6864 Jul, [facility] [place] [facility] [address] [id number] [place] [address] 4327 Jul, [facility] [place] [facility] [address] [id number] [place] [address] 1406 Jul, [facility] [place] [facility] [address] [id number] [place] [address] 7855 Jul, [facility] [place] [facility] [address] [id number] [place] [address] 9098 Jul, [facility] [address] [id number] [place] [address] 4706 Jul, [facility] [address] [id number] [place] [address] 8087 Jul, [facility] [address] [id number] [place] [address] 4061 Jul, [facility] [address] [id number] [place] [address] 1687 Jul, [facility] [address] [id number] [place] [address] 0399 Jul, [facility] [address] [id number] [place] [address] 4438 Jun, [facility] [address] [id number] [place] [address]- 0776 Jun, [facility] [address] [id number] [place] [address] 9108 Jun, [facility] [address] [id number] [place] [address]- 3692 Jun, [facility] [address] [id number] [place] [address]- 7960 Jun, [facility] [address] [id number] [place] [address]- 0406 Jun, [facility] [address] [id number] [place] [address]- 9789 Jun, [facility] [facility] [address] [id number] [place] [address]- 6[address] Jun, [facility] [address] [id number] [place] [address] 3914 Jun, [facility] [address] [id number] [place] [address]- 6897 Jun, [facility] [place] [facility] [address] [id number] [place] [address]- 4078 May, [facility] [place] [facility] [address] [id number] [place] [address]- 9325 May, [facility] [place] [facility] [address] [id number] [place] [address]- 4531 Mar, [facility] [place] [facility] [address] [id number] [place] [address]- 1320 Mar, [facility] [place] [facility] [address] [id number] [place] [address]- 7824 Mar, [facility] [place] [facility] [address] [id number] [place] [address]- 4011 Mar, [facility] [place] [facility] [address] [id number] [place] [address]- 9187 Feb, [facility] [place] [facility] [address] [id number] [place] [address]- 2882 Feb, [facility] [place] [facility] [address] [id number] [place] [address]- 9965 Feb, [facility] [place] [facility] [address] [id number] [place] [address]- 3318 Jan, [facility] [place] [facility] [address] [id number] [place] [address]- 3042 Jan, [facility] [place] [facility] [address] [id number] [place] [address]- 2468 Jan, [facility] [place] [facility] [address] [id number] [place] [address]- 8201 Jan, [facility] [place] [facility] [address] [id number] [place] [address]- 8713 Jan, [facility] [place] [facility] [address] [id number] [place] [address]- 9270 Jan, [facility] [place] [facility] [address] [id number] [place] [address]- 5459 Jan, [facility] [place] [facility] [address] [id number] [place] [address]- 1639 Jan, [facility] [place] [facility] [address] [id number] [place] [address]- 8457 Jan, [facility] [place] [facility] [address] [id number] [place] [address] 1942 Jan, [facility] [place] [facility] [address] [id number] [place] [address]- 2958 Dec, [facility] [address] [id number] [place] [address]- 6203 Dec, [facility] [address] [id number] [place] [address]- 6268 November, [facility] [facility] [address] [id number] [place] [address]- 4280 November, [facility] [address] [id number] [place] [address]- 9453 November, [facility] [facility] [address] [id number] [place] [address]- 9204 November, [facility] [place] [facility] [address] [id number] [place] [address]- 7894 November, [facility] [place] [facility] [address] [id number] [place] [address]- 8482 November, [facility] [address] [id number] [place] [address]- 7028 November, [facility] [place] [facility] [address] [id number] [place] [address]- 8398 Oct, [facility] [address] [id number] [place] [address]- 1565 Oct, [facility] [address] [id number] [place] [address]- 5653 Sep, [facility] [place] [facility] [address] [id number] [place] [address]- 4061 Sep, [facility] [address] [id number] [place] [address]- 8298 Sep, [facility] [address] [id number] [place] [address]- 4809 Sep, [facility] [address] [id number] [place] [address]- 4091 Sep, [facility] [address] [id number] [place] [address]- 5858 Sep, [facility] [address] [id number] [place] [address]- 7027 Sep, [facility] [address] [id number] [place] [address]- 7638 Sep, [facility] [address] [id number] [place] [address]- 4946 Sep, [facility] [address] [id number] [place] [address]- 1050 Sep, [facility] [address] [id number] [place] [address]- 6410 Aug, [facility] [address] [id number] [place] [address]- 3936 Aug, [facility] [address] [id number] [place] [address]- 6947 Jul, [facility] [address] [id number] [place] [address]- 5491 Jul, [facility] [address] [id number] [place] [address]- 8976 Jul, [facility] [address] [id number] [place] [address]- 3330 Jul, [facility] [address] [id number] [place] [address]- 0557 Jul, [facility] [address] [id number] [place] [address]- 1159 Jul, [facility] [address] [id number] [place] [address]- 9639 Jun, [facility] [address] [id number] [place] [address]- 8489 Jun, [facility] [address] [id number], [place] [address]- 2090 Jun, [facility] [address] [id number] [place] [address]- 2535 Jun, [facility] [address] [id number] [place] [address]- 5242 May, [facility] [address] [id number] [place] [address]- 8521 May, [facility] [address] [id number], [place] [address]- 6664 May, [facility] [address] [id number], [place] [address]- 7781 May, [facility] [address] [id number], [place] [address]- 5408 May, [facility] [address] [id number], [place] [address]- 0323 Apr, [facility] [address] [id number], [place] [address]- 7382 31 Apr, 2013 [facility] [address] [id number], [place] [address]- 9286 Apr, [facility] [address] [id number], [place] [address]- 5528 Apr, [facility] [address] [id number], [place] [address]- 9033 Apr, [facility] [address] [id number] [place] [address]- 2420 Apr, [facility] [address] [id number] [place] [address]- 2116 Apr, [facility] [address] [id number] [place] [address]- 9321 Apr, [facility] [address] [id number] [place] [address]- 9954 Apr, [facility] [address] [id number] [place] [address]- 6546 Apr, [facility] [address] [id number] [place] [address]- 3282 Apr, [facility] [address] [id number] [place] [address]- 0012 Apr, [facility] [address] [id number] [place] [address]- 1474 Mar, [facility] [address] [id number] [place] [address]- 8345 Mar, [facility] [address] [id number] [place] [address]- 9046 Feb, [facility] [address] [id number] [place] [address]- 8421 Jan, [facility] [address] [id number] [place] [address]- 9970 Jan, [facility] [address] [id number] [place] [address] 2543 Jan, [facility] [address] [id number] [place] [address]- 3837 Jan, [facility] [address] [id number] [place] [address]- 5000 Dec, [facility] [address] [id number] [place] [address]- 0427 Dec, [facility] [address] [id number] [place] [address]- 6253 Dec, [facility] [address] [id number] [place] [address]- 0714 Dec, [facility] [address] [id number] [place] [address]- 7990 Dec, [facility] [address] [id number] [place] [address]- 6380 Dec, [facility] [address] [id number] [place] [address]- 7892 05 Dec, 2012 [facility] [address] [id number] [place] [address]- 5691 November, [facility] [address] [id number] [place] [address]- 9697 November, [facility] [address] [id number] [place] [address]- 8445 November, [facility] [address] [id number] [place] [address]- 8138 Oct, [facility] [address] [id number] [place] [address]- 2036 Oct, [facility] [address] [id number] [place] [address]- 0450 Oct, [facility] [address] [id number] [place] [address]- 0197 Oct, [facility] [address] [id number] [place] [address]- 5468 Oct, [facility] [address] [id number] [place] [address]- 8344 Sep, [facility] [address] [id number] [place] [address]- 0741 Sep, [facility] [address] [id number] [place] [address]- 9891 Sep, [facility] [address] [id number] [place] [address]- 9660 Sep, [facility] [address] [id number] [place] [address]- 2656 Aug, [facility] [address] [id number] [place] [address]- 0466 Aug, [facility] [address] [id number] [place] [address]- 0633 Aug, [facility] [address] [id number] [place] [address]- 2392 Aug, [facility] [address] [id number] [place] [address]- 0048 Jul, [facility] [address] [id number] [place] [address]- 2764 Jul, [facility] [address] [id number] [place] [address]- 5180 Jun, [facility] [address] [id number] [place] [address]- 3107 Jun, [facility] [address] [id number] [place] [address]- 0111 Jun, [facility] [address] [id number] [place] [address]- 4275 Jun, [facility] [facility] [address] [id number] [place] [address]- 3124 May, [facility] [address] [id number] [place] [address]- 2877 May, [facility] [place] [address] [id number] [place] [address]- 1124 May, [facility] [place] [facility] [address] [id number] [place] [address]- 7332 May, [facility] [place] [address] [id number] [place] [address]- 8034 Apr, [facility] [address] [id number] [place] Apr, [facility] [place] [facility] [address] [id number] [place] Apr, [facility] [place] [facility] [address] [id number] [place] [address]- 4803 Apr, [facility] [place] [address] [id number] [place] [address]- 1047 Apr, [facility] [place] [facility] [address] [id number] [place] [address]- 1547 Apr, [facility] [place] [address] [id number] [place] [address]- 5571 Apr, [facility] [place] [address] [id number] [place] [address]- 3932 Apr, [facility] [place] [address] [id number] [place] [address]- 1581 Apr, [facility] [place] [facility] [address] [id number] [place] [address]- 2375 Apr, [facility] [place] [facility] [address] [id number] [place] [address]- 6877 Feb, [facility] [place] [facility] [address] [id number] [place] [address]- 8622 Feb, [facility] [place] [facility] [address] [id number] [place] [address]- 0428 Jan, [facility] [place] [facility] [address] [id number] [place] [address]- 4689 Jan, [facility] [place] [facility] [address] [id number] [place] [address] 2543 Jan, [facility] [place] [facility] [address] [id number] [place] [address]- 0527 Jan, [facility] [place] [facility] [address] [id number] [place] [address]- 9064 Jan, [facility] [place] [facility] [address] [id number] [place] [address]- 0796 Jan, [facility] [place] [facility] [address] [id number] [place] [address]- 9456 Dec, [facility] [place] [facility] [address] [id number] [place] [address]- 9266 November, [facility] [place] [facility] [address] [id number] [place] [address]- 3060 November, [facility] [place] [facility] [address] [id number] [place] [address]- 8246 November, [facility] [place] [facility] [address] [id number] [place] [address]- 0326 Sep, [facility] [place] [facility] [address] [id number] [place] [address]- 5081 Sep, [facility] [place] [facility] [address] [id number] [place] [address]- 6797 Sep, [facility] [place] [facility] [address] [id number] [place] [address]- 9581 Sep, [facility] [place] [facility] [address] [id number] [place] [address]- 0286 Sep, [facility] [place] [facility] [address] [id number] [place] [address]- 2546 Sep, [facility] [place] [facility] [address] [id number] [place] [address]- 5216 Aug, [facility] [place] [facility] [address] [id number] [place] [address]- 3726 Aug, [facility] [place] [facility] [address] [id number] [place] [address]- 2546 Aug, [facility] [place] [facility] [address] [id number] [place] [address]- 1187 11 Jul, 2011 [facility] [address] [id number] [place] [address]- 5358 Jul, [facility] [address] [id number] [place] [address]- 5040 10 Jul, 2011 [facility] [address] [id number] [place] [address]- 3189 Jul, [facility] [address] [id number] [place] [address]- 7183 Jun, [facility] [address] [id number] [place] [address]- 9124 Jun, [facility] [address] [id number] [place] [address]- 9340 Jun, [facility] [address] [id number] [place] [address]- 6350 Jun, [facility] [address] [id number] [place] [address]- 0839 Jun, [facility] [address] [id number] [place] [address]- 6330 Jun, [facility] [address] [id number] [place] [address]- 8875 May, [facility] [address] [id number] [place] [address]- 6868 May, [facility] [address] [id number] [place] [address]- 7418 May, [facility] [address] [id number] [place] [address]- 9368 Apr, [facility] [place] [facility] [address] [id number] [place] [address]- 7368 Jan, [facility] [address] [id number] [place] [address]- 9199 Jun, [facility] [address] [id number] [place] [address]- 5879 20 Jun, 2010 [facility] [place] [facility] [address] [id number] [place] [address]- 0496 15 Jun, 2010 [facility] [place] [facility] [address] [id number] [place] [address] 2546 15 Jun, 2010 [facility] [place] [facility] [address] [id number] [place] [address] 2546 15 Jun, 2010 [facility] [address] [id number] [place] [address]- 0676 13 Jun, 2010 [facility] [place] [facility] [address] [id number] [place] [address]- 0016 13 Jun, 2010 [facility] [address] [id number] [place] [address]- 7576 Apr, [facility] [address] [id number] [place] [address] 17 Feb, 2010 [facility] [place] [facility] [address] [id number] [place] [address] 15 Aug, 2009 [facility] [place] [facility] [address] [id number] [place] [address] Jul, [facility] [place] [facility] [address] [id number] [place] [address] Jul, [facility] [place] [facility] [address] [id number] [place] [address] 29 Jun, 2009 [facility] [place] [facility] [address] [id number] [place] [address] Jun, [facility] [place] [facility] [address] [id number] [place] [address] 28 Jun, 2009 [facility] [place] [facility] [address] [id number] [place] [address] 22 Jun, 2009 [facility] [place] [facility] [id number] [address] Jun, [facility] [id number] [address] Jun, [facility] [id number] [address] Jun, [facility] [id number], [place] [address] May, [facility] [id number] [place] [address] May, [facility] [id number] [place] [address]- [address] May, [facility] [id number] [place] [address] May, [facility] [id number] [place] [address]- [address] May, [facility] [id number], [place] [address] May, [facility] [id number], [place] [address] May, [facility] [id number] [place] [address] Apr, [facility] [id number] [address] Apr, [facility] [id number], [place] [address] Jan, [facility] [id number], [place] [address] Oct, IMMUNIZATIONS No Known Immunizations SOCIAL HISTORY Never Assessed REASON FOR VISIT EMR-[facility] [place] PLAN OF CARE VITAL SIGNS MEDICATIONS Unknown [...]
--- OUTSIDE RECORDS SUMMARY | 2018-11-09 12:38 | XMS REPORT ---
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.10 Active 3760087308476 Problem Dementia in other diseases classified elsewhere without behavioral disturbance F02.80 Active 604370982 Problem Other frontotemporal dementia G31.09 Active 454420779 Problem Unsteady gait R26.81 Active 05086946 Problem Hypoglycemia E16.2 Active 266631357 Problem Essential hypertension I10 Active 72188091 Problem 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 Active 350689163 Problem Neuropathy G62.9 Active 768392097 Problem Hypothyroidism (acquired) E03.9 Active 269762960 Problem Polydipsia R63.1 Active 43731800 Problem Dysthymia F34.1 Active 93273732 Problem Hypernatremia E87.0 Active 93592039 Problem Hyperlipemia, mixed E78.2 Active 554124893 Problem Hallucinations R44.3 Active 5292836 Problem Episodic cluster headache, not intractable G44.019 Active 457480989 Problem Parkinsons disease G20 Active 42107839 Problem Need for assistance due to unsteady gait R26.89 Active 562665739 Problem Type 2 diabetes mellitus with unspecified complications E11.8 Active 16957454 Problem Type 2 diabetes mellitus with diabetic neuropathy, unspecified E11.40 Active 13874472 Problem Dysuria R30.0 Active 21122364 Problem PVD (peripheral vascular disease) I73.9 Active 899229136 Problem Mixed stress and urge urinary incontinence N39.46 Active 240567683 Problem Neurogenic orthostatic hypotension G90.3 Active 441545562 Problem Anxiety F41.9 Active 77570084 Problem 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 Active [id number] ALLERGIES No Information ENCOUNTERS Encounter Location Date Diagnosis [facility] [id number] [place] [address] 33696- 9555 Oct, [facility] [id number] [place] [address] [phone] Sep, Dental examination Z01.20 and Caries K02.9 [facility] [id number] [place] [address] 24553- 8902 Sep, Left shoulder pain M25.512 [facility] [address] 88575- 7563 Sep, Parkinsons disease G20 [place] [address] 12528- 3119 Aug, Left shoulder pain M25.512 [place] [facility] [id number] [place] [address] 80632- 6131 Aug, [place] [address] 99657- 4613 Aug, Need for assistance due to unsteady gait R26.89 ; Type 2 diabetes mellitus with diabetic neuropathy, unspecified E11.40 ; PVD ( peripheral vascular disease) I73.9 ; Parkinsons disease G20 and Dementia with Lewy bodies G31.83 [place] [facility] [id number] [place] [address] 43099- 6604 Jul, Left shoulder pain M25.512 [facility] [id number] [place] [address] 69778- 1940 Jun, Type 2 diabetes mellitus with unspecified complications E11.8 [facility] [id number] [place] [address] 77048- 5891 May, Left shoulder pain M25.512 [facility] [id number] [place] [address] 13429- 5775 May, Left shoulder pain M25.512 [facility] [id number] [place] [address] 21690- 3112 May, Parkinsons disease G20 [facility] [id number] [place] [address] 95464- 2882 Apr, Dysuria R30.0 and Hypothyroidism (acquired) E03.9 [facility] [address] 73948- 5987 31 Apr, 2018 Dysuria R30.0 and Increased urinary frequency R35.0 [place] [address] 09737- 2342 Apr, [place] [address] 76671- 9435 Apr, Parkinsons disease G20 and Hypothyroidism (acquired) E03.9 [place] [address] 66605- 3435 Apr, [facility] [address] 90816 -3694 05 Apr, 2018 Dysuria R30.0 and Cystitis N30.90 [place] [address] 01352- 1922 28 Mar, 2018 Left shoulder pain M25.512 [place] [address] 93157- 0475 27 Mar, 2018 [place] [address] 49351- 8146 Mar, Hyperlipemia, mixed E78.2 ; Essential hypertension I10 and 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 pectoris I25.10 [place] [address] 88715- 3023 26 Mar, 2018 Type 2 diabetes mellitus with unspecified complications E11.8 [place] [address] 37069- 8598 17 Mar, 2018 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 [place] [address] 08687- 2876 Mar, [facility] [id number] [place] [address] 47703- 3168 Mar, [facility] [id number] [place] [address] 44119- 7196 Mar, [facility] [id number] [place] [address] 67190- 8968 Mar, [facility] [address] 93162- 3800 Mar, Cellulitis of left lower extremity L03.116 and Petechial rash R23.3 [place] [address] 17810- 0936 Feb, Left shoulder pain M25.512 [place] [facility] [address] 25237- 3530 Feb, Left shoulder pain M25.512 [facility] [id number] [place] [address] 16637- 1428 Feb, 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 [place] [address] 31382- 8152 Jan, Left shoulder pain M25.512 [facility] [facility] [id number] [place] [address] 00392- 1953 Dec, Parkinsons disease G20 [place] [id number] [place] [address] 66182- 4983 Dec, Left shoulder pain M25.512 [place] [facility] [id number] [place] [address] 22304- 5340 Dec, Type 2 diabetes mellitus with unspecified complications E11.8 ; Anxiety F41.9 ; Therapeutic drug monitoring Z51.81 and Analgesic use Z79.899 [place] [id number] [place] [address] 34443- 1869 November, [place] [address] [place] [address]- 4506 November, [place] [facility] [id number] [place] [address] 85107- 3377 November, Left shoulder pain M25.512 [place] [facility] [id number] [place] [address] 40724- 1202 Oct, [facility] [id number] [place] [address] 48957 -7298 Oct, [place] [id number] [place] [address] 84511- 2607 Oct, Parkinsons disease G20 [facility] [id number] [place] [address] 72310 -4145 Oct, Acute cystitis without hematuria N30.00 and Viral upper respiratory tract infection J06.9 [place] [id number] [place] [address] 45629- 1139 Oct, [place] [id number] [place] [address] 71850- 9992 Oct, Type 2 diabetes mellitus with unspecified complications E11.8 [place] [id number] [place] [address] 64774- 6756 Oct, Left shoulder pain M25.512 [place] [facility] [id number] [place] [address] 73448- 0580 Oct, Type 2 diabetes mellitus with unspecified complications E11.8 ; Dysuria R30.0 and Neurogenic orthostatic hypotension G90.3 [place] [id number] [place] [address] 13068- 4831 Sep, Left shoulder pain M25.512 [place] [id number] [place] [address] 26292- 0810 Sep, Medicare annual wellness visit, initial Z00.00 ; Parkinsons disease G20 ; Type 2 diabetes mellitus with unspecified complications E11.8 ; Essential hypertension I10 ; 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 pectoris I25.10 ; Hypothyroidism (acquired ) E03.9 ; PVD (peripheral vascular disease) I73.9 ; Dysthymia F34.1 ; Hyperlipemia, mixed E78.2 ; Neuropathy G62.9 ; Encounter for immunization Z23 ; Encounter for other screening for malignant neoplasm of breast Z12.39 and Mixed stress and urge urinary incontinence N39.46 [place] [address] 16256- 7992 25 Aug, 2017 Parkinsons disease G20 [place] [address] 49777- 8934 Aug, Type 2 diabetes mellitus with unspecified complications E11.8 ; Left shoulder pain M25.512 and Hypotensive episode I95.9 [place] [address] 13516- 4365 09 Aug, 2017 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 pectoris I25.10 [place] [address] 72994- 4480 07 Aug, 2017 Type 2 diabetes mellitus with unspecified complications E11.8 [place] [address] 29062- 2605 Jul, Callus of foot L84 [place] [address] 04399- 4345 Jul, [place] [address] 82353- 5565 Jul, Callus of foot L84 ; Episodic cluster headache, not intractable G44.019 ; Type 2 diabetes mellitus with unspecified complications E11.8 and Parkinsons disease G20 [place] [address] 48800- 4456 Jul, [place] [address] 43224- 4697 Jul, [place] [address] 32611- 0474 Jun, Type 2 diabetes mellitus with unspecified complications E11.8 ; Unsteady gait R26.81 ; Forgetfulness R68.89 and Hallucinations R44.3 [place] [id number]- 5472 Jun, [place] [address] [place] [address] [address]- 0171 Jun, Left shoulder pain M25.512 [place] [address] [place] [address] [address]- 2889 May, Hypernatremia E87.0 and Polydipsia R63.1 [place] [address] 43050- 0645 May, Hypernatremia E87.0 and Polydipsia R63.1 [place] [address] 49888- 4076 May, Hypoglycemia E16.2 ; Dysuria R30.0 ; Unsteadiness on feet R26.81 ; Forgetfulness R68.89 ; Type 2 diabetes mellitus with unspecified complications E11.8 and Yeast infection involving the vagina and surrounding area B37.3 [place] [id number] [place] [address] 29813- 3556 May, Acute cystitis without hematuria N30.00 [facility] [id number] [place] [address] 07073 -7744 Apr, Dysuria R30.0 and Acute cystitis without hematuria N30.00 [place] [id number] [place] [address] 35224- 3886 Apr, Hypernatremia E87.0 and Polydipsia R63.1 [place] [address] [address] [id number]- 3255 Apr, Vertigo R42 and Type 2 diabetes mellitus with unspecified complications E11.8 [place] [address] 70738- 5904 20 Mar, 2017 [facility] [id number] [place] [address] 40872- 9415 19 Mar, 2017 Left shoulder pain M25.512 [facility] [id number] [place] [address] 14528- 1871 13 Mar, 2017 Vertigo R42 [facility] [address] 91746- 3519 12 Mar, 2017 Polydipsia R63.1 [facility] [address] 75788- 8838 12 Mar, 2017 Polydipsia R63.1 [place] [address] 94261- 6998 11 Mar, 2017 Vertigo R42 [place] [address] 01873- 0542 07 Mar, 2017 Type 2 diabetes mellitus with unspecified complications E11.8 ; Vertigo R42 ; Polydipsia R63.1 ; Polyuria R35.8 ; Hypothyroidism ( acquired) E03.9 ; Abnormal urinalysis R82.90 and Dysthymia F34.1 [place] [id number] [place] [address] 81122- 9987 05 Mar, 2017 Coronary artery disease of sokaogon artery with stable angina pectoris, unspecified whether sokaogon or transplanted heart I25.118 ; Systolic CHF, chronic I50.22 ; Hyperlipemia, mixed E78.2 and Essential hypertension I10 [facility] [id number] [place] [address] [id number] 16 Feb, 2017 Dental caries K02.9 [facility] [id number] [place] [address] 61594- 8223 Feb, Type 2 diabetes mellitus with diabetic neuropathy, unspecified E11.40 [facility] [id number] [place] [address] 50970- 8859 23 Dec, 2016 Left shoulder pain M25.512 [facility] [address] [place] [address]- 9350 16 Dec, 2016 [facility] [id number] [place] [address] 64804- 3821 Dec, Type 2 diabetes mellitus with unspecified complications E11.8 [facility] [id number] [id number] 15 Dec, 2016 Dental examination Z01.20 [facility] [id number] [place] [address] 42992- 7735 08 Dec, 2016 Type 2 diabetes mellitus with diabetic neuropathy, unspecified E11.40 [facility] [id number] [place] [address] 57826- 1764 Dec, [facility] [id number] [place] [address] 82452- 7296 Dec, Type 2 diabetes mellitus with diabetic neuropathy, unspecified E11.40 [facility] [id number] [place] [address] 22023- 5924 November, Left shoulder pain M25.512 [facility] [id number] [place] [address] 42306- 9446 November, [facility] [id number] [place] [address] 60365- 9062 November, Type 2 diabetes mellitus with unspecified complications E11.8 and Dysuria R30.0 [facility] [id number] [place] [address] 84887- 9481 Oct, Left shoulder pain M25.512 [facility] [address] [address]- 3955 Sep, Left shoulder pain M25.512 [facility] [address] [address]- 3326 Sep, Pre-op testing Z01.818 [facility] [address] [address]- 4306 Sep, Pre-op testing Z01.818 [place] [id number] [place] [address] 32291- 1947 08 Sep, 2016 Pre-op testing Z01.818 [facility] [id number] [place] [address] 08694- 8513 08 Sep, 2016 Pre-op testing Z01.818 and Mouth pain K13.79 [place] [id number] [place] [address] 80882- 6550 03 Sep, 2016 Left shoulder pain M25.512 [place] [id number] [place] [address] 75293- 4033 08 Aug, 2016 Other eczema L30.8 [place] [id number] [place] [address] 14279- 2343 06 Aug, 2016 PVD (peripheral vascular disease) I73.9 ; Type 2 diabetes mellitus with unspecified complications E11.8 ; Acute cystitis with hematuria N30.01 ; Other eczema L30.8 ; Dysuria R30.0 and Left shoulder pain M25.512 [facility] [id number] [place] [address] 18679 -3407 Jul, Otalgia of right ear H92.01 and Blood in ear canal, right H92.21 [place] [id number] [place] [address] 49739- 7531 Jul, Arthralgia, unspecified joint M25.50 ; PVD (peripheral vascular disease) I73.9 and Neuropathy G62.9 [place] [id number] [place] [address] 32347- 0844 Jul, [place] [id number] [place] [address] 02215- 3267 Jun, Medicare annual wellness visit, initial Z00.00 ; Cervicalgia M54.2 ; Radiculopathy of cervical region M54.12 ; Encounter for immunization Z23 ; Type 2 diabetes mellitus with unspecified complications E11.8 and Essential hypertension I10 [place] [address] [place] [address]- 7492 Jun, [facility] [id number] [place] [address] 95840- 5032 May, Hypothyroidism (acquired) E03.9 [facility] [id number] [place] [address] 40476- 4971 May, Dysuria R30.0 ; Essential hypertension I10 ; Hypothyroidism (acquired) E03.9 and PVD (peripheral vascular disease) I73.9 [facility] [address] [place] [address] 57340 -9918 May, Burning with urination R30.0 and Acute cystitis with hematuria N30.01 [facility] [id number] [place] [address] 82884- 7362 May, Dental examination Z01.20 [facility] [id number] [place] [address] 43111- 6833 May, Hypothyroidism (acquired) E03.9 [facility] [id number] [place] [address] 01244- 1226 Feb, [facility] [id number] [place] [address] 19419- 6386 Feb, 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 ; PVD ( peripheral vascular disease) I73.9 ; Type 2 diabetes mellitus with unspecified complications E11.8 and Essential hypertension I10 [facility] [id number] [place] [address] 25342- 2732 Jan, [facility] [id number] [place] [address] 36845- 2344 Jan, Hypothyroidism (acquired) E03.9 [facility] [id number] [place] [address] 93793- 1973 Jan, [facility] [id number] [place] [address] 99925- 3445 Jan, [place] [id number] [place] [address] 81580- 3662 Jan, Type 2 diabetes mellitus with unspecified complications E11.8 ; 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 and Essential ( primary) hypertension I10 [place] [id number] [place] [address] 53608- 2426 Jan, Type 2 diabetes mellitus with unspecified complications E11.8 ; 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 ; Essential hypertension I10 and PVD (peripheral vascular disease) I73.9 [place] [id number] [place] [address] 29708- 0580 Jan, [place] [id number] [place] [address] 28895- 1252 Jan, [place] [id number] [place] [address] 79892- 6898 Jan, [place] [id number] [place] [address] 19262- 0335 Jan, Weakness R53.1 ; Fatigue, unspecified type R53.83 ; PVD ( peripheral vascular disease) I73.9 ; Acute osteomyelitis of other site M86.18 ; Type 2 diabetes mellitus with diabetic neuropathy, unspecified E11.40 and 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 [place] [id number] [place] [address] 03136- 1269 Dec, [place] [id number] [place] [address] 32073- 6418 Dec, Type 2 diabetes mellitus with unspecified complications E11.8 [place] [id number] [place] [address] 36585- 1783 Dec, [place] [id number] [place] [address] 75336- 3038 Dec, Pressure ulcer, unspecified pressure ulcer stage L89.90 and Type 2 diabetes mellitus with unspecified complications E11.8 [facility] [id number] [place] [address] 99312 -9399 Dec, Toe infection L08.9 [facility] [id number] [place] [address] 42032- 7339 November, Dental caries K02.9 [facility] [id number] [place] [address] 95975- 2661 November, [facility] [address] 47992- 4083 November, Dental examination Z01.20 [place] [id number] [place] [address] 32331- 4413 Sep, Lipoma of torso D17.1 and Thoracic neuritis M54.14 [facility] [id number] [place] [address] 36240- 5457 Sep, [facility] [address] 74382- 8885 Aug, [facility] [id number] [place] [address] 88632 -3469 Jul, Dysuria R30.0 and UTI (urinary tract infection) N39.0 [facility] [id number] [place] [address] 20666- 4910 Jun, Left shoulder pain M25.512 [place] [id number] [place] [address] 48701- 3797 May, Shoulder pain, left M25.512 [facility] [id number] [place] [address] 21304- 4667 May, [facility] [id number] [place] [address] 86824- 6798 May, [facility] [id number] [place] [address] 10249- 3793 May, Left shoulder pain M25.512 [facility] [id number] [place] [address] 88326- 9155 May, [facility] [id number] [place] [address] 03609- 6538 Apr, Encounter for immunization Z23 [facility] [address] 57648- 8773 Apr, Urinary tract infection, site not specified N39.0 ; Hypotension, unspecified I95.9 ; Type 2 diabetes mellitus with unspecified complications E11.8 and Generalized edema R60.1 [place] [address] 21356- 1141 Apr, [place] [address] 59834- 5148 Mar, Diabetes with other specified manifestations, type II or unspecified type, not stated as uncontrolled 250.80 [place] [address] 39240- 8425 Feb, Gout 274.9 and Diabetes 250.00 [place] [address] 77098- 1059 Jan, [place] [address] 62569- 7849 November, CAD (coronary artery disease) 414.00 and CHF (congestive heart failure) 428.0 [place] [id number] [place] [address] 72504- 0299 Oct, [place] [id number] [place] [address] 53617- 7921 Oct, [place] [id number] [place] [address] 31480- 4488 Oct, [facility] [address] 72944- 3970 Sep, [facility] [address] [id number] [place] [address]- 2014 Sep, [facility] [address] [place] [address] Sep, [facility] [place] [facility] [address] [id number] [place] [address] Sep, [facility] [place] [facility] [address] [id number] [place] [address] Aug, 2014 [facility] [place] [facility] [address] [id number] [place] [address] Aug, 2014 [facility] [place] [facility] [address] [id number] [place] [address] Aug, 2014 [facility] [place] [facility] [address] [id number] [place] [address] Aug, 2014 [facility] [place] [facility] [address] [id number] [place] [address] Aug, 2014 [facility] [place] [facility] [address] [id number] [place] [address] Aug, 2014 [facility] [place] [facility] [address] [id number] [place] [address] Aug, [facility] [place] [facility] [address] [id number] [place] [address] Aug, [facility] [place] [facility] [address] [facility] [id number] [place] [address] Jul, [facility] [place] [facility] [address] [address] [id number] [place] [address] Jul, [facility] [place] [facility] [address] [id number] [place] [address] Jul, [facility] [place] [facility] [address] [id number] [place] [address] 3412 Jul, [facility] [place] [facility] [address] [id number] [place] [address] 3425 Jul, [facility] [place] [facility] [address] [id number] [place] [address] Jul, [facility] [place] [facility] [address] [id number] [place] [address] 8318 Jul, [facility] [place] [facility] [address] [id number] [place] [address] 8020 Jul, [facility] [place] [facility] [address] [id number] [place] [address] Jul, [facility] [place] [facility] [address] [id number] [place] [address] 0538 Jul, [facility] [place] [facility] [address] [id number] [place] [address] 0604 Jun, [facility] [place] [facility] [address] [id number] [place] [address] 9729 Jun, [facility] [place] [facility] [address] [id number] [place] [address] 2980 Jun, [facility] [place] [facility] [address] [id number] [place] [address]- 8123 Jun, [facility] [place] [facility] [address] [id number] [place] [address]- 3904 Jun, [facility] [place] [facility] [address] [id number] [place] [address]- 5242 Jun, [facility] [place] [facility] [address] [id number] [place] [address]- 1382 Jun, [facility] [place] [facility] [address] [id number] [place] [address]- 0014 Jun, [facility] [place] [facility] [address] [id number] [place] [address]- 4156 Jun, [facility] [place] [facility] [address] [id number] [place] [address]- 0507 Jun, [facility] [place] [facility] [address] [id number] [place] [address]- 8046 May, [facility] [place] [facility] [address] [id number] [place] [address]- 0071 May, [facility] [place] [facility] [address] [id number] [place] [address]- 9397 18 Mar, 2014 [facility] [place] [facility] [address] [id number] [place] [address]- 4318 Mar, [facility] [place] [facility] [address] [id number] [place] [address]- 4406 Mar, [facility] [place] [facility] [address] [id number] [place] [address]- 8933 Mar, [facility] [place] [facility] [address] [id number] [place] [address]- 2951 Feb, [facility] [place] [facility] [address] [id number] [place] [address]- 1144 Feb, [facility] [place] [facility] [address] [id number] [place] [address]- 4958 Feb, [facility] [place] [facility] [address] [id number] [place] [address]- 6426 Jan, [facility] [place] [facility] [address] [id number] [place] [address]- 1679 Jan, [facility] [place] [facility] [address] [id number] [place] [address]- 8330 Jan, [facility] [place] [facility] [address] [id number] [place] [address]- 7605 Jan, [facility] [place] [facility] [address] [id number] [place] [address]- 7477 Jan, [facility] [place] [facility] [address] [id number] [place] [address]- 4190 Jan, [facility] [place] [facility] [address] [id number] [place] [address]- 5808 Jan, [facility] [place] [facility] [address] [id number] [place] [address]- 5444 Jan, [facility] [place] [facility] [address] [id number] [place] [address]- 6816 Jan, [facility] [place] [facility] [address] [id number] [place] [address]- 4937 Jan, [facility] [place] [facility] [address] [id number] [place] [address]- 5497 Dec, [facility] [place] [facility] [address] [id number] [place] [address]- 2195 Dec, [facility] [place] [facility] [address] [id number] [place] [address]- 9574 November, [facility] [place] [facility] [address] [id number] [place] [address]- 8981 November, [facility] [place] [facility] [address] [id number] [place] [address]- 2265 November, [facility] [place] [facility] [address] [id number] [place] [address]- 7182 November, [facility] [place] [facility] [address] [id number] [place] [address]- 6505 November, [facility] [place] [facility] [address] [id number] [place] [address]- 4817 November, [facility] [place] [facility] [address] [id number] [place] [address]- 0455 November, [facility] [place] [facility] [address] [id number] [place] [address]- 4731 Oct, [facility] [place] [facility] [address] [id number] [place] [address]- 8190 Oct, [facility] [place] [facility] [address] [id number] [place] [address]- 9397 Sep, [facility] [place] [facility] [address] [id number] [place] [address]- 8128 Sep, [facility] [place] [facility] [address] [id number] [place] [address]- 8246 Sep, [facility] [place] [facility] [address] [id number] [place] [address]- 8387 Sep, [facility] [place] [facility] [address] [id number] [place] [address]- 6926 Sep, [facility] [place] [facility] [address] [id number] [place] [address]- 5859 Sep, [facility] [place] [facility] [address] [id number] [place] [address]- 8209 Sep, [facility] [place] [facility] [address] [id number] [place] [address]- 5236 Sep, [facility] [place] [facility] [address] [id number] [place] [address]- 5852 Sep, [facility] [place] [facility] [address] [id number] [place] [address]- 7496 Sep, [facility] [place] [facility] [address] [id number] [place] [address]- 8143 Aug, [facility] [place] [facility] [address] [id number] [place] [address]- 3766 Aug, [facility] [place] [facility] [address] [id number] [place] [address]- 6811 Jul, [facility] [place] [facility] [address] [id number] [place] [address]- 7741 Jul, [facility] [place] [facility] [address] [id number] [place] [address]- 0498 Jul, [facility] [place] [facility] [address] [id number] [place] [address]- 9580 Jul, [facility] [place] [facility] [address] [id number] [place] [address]- 0680 Jul, [facility] [place] [facility] [address] [id number] [place] [address]- 3129 Jul, [facility] [place] [facility] [address] [id number] [place] [address]- 1397 06 Jun, 2012 [facility] [address] [id number] [place] [address]- 6803 06 Jun, 2012 [facility] [place] [facility] [address] [id number] [place] [address]- 6962 Jun, [facility] [address] [id number] [place] [address]- 5097 Jun, [facility] [place] [facility] [address] [id number] [place] [address]- 1773 May, [facility] [place] [facility] [address] [id number] [place] [address]- 0685 14 May, 2013 [facility] [place] [facility] [address] [id number] [place] [address]- 8432 May, [facility] [place] [facility] [address] [id number] [place] [address]- 1979 May, [facility] [address] [id number] [place] [address]- 0996 May, [facility] [place] [facility] [address] [id number] [place] [address]- 2987 Apr, [facility] [address] [id number] [place] [address]- 3900 31 Apr, 2013 [facility] [place] [facility] [address] [id number] [place] [address]- 1912 Apr, [facility] [place] [facility] [address] [id number] [place] [address]- 6636 Apr, [facility] [place] [facility] [address] [id number] [place] [address]- 7197 Apr, [facility] [place] [facility] [address] [id number] [place] [address]- 9621 Apr, [facility] [place] [facility] [address] [id number] [place] [address]- 9793 Apr, [facility] [place] [facility] [address] [id number] [place] [address]- 3858 Apr, [facility] [place] [facility] [address] [id number] [place] [address] Apr, [facility] [place] [facility] [address] [id number] [place] [address] Apr, [facility] [place] [facility] [address] [id number] [place] [address]- 8293 Apr, [facility] [place] [facility] [address] [id number] [place] [address] Apr, [facility] [place] [facility] [address] [id number] [place] [address]- 5956 Mar, [facility] [place] [facility] [address] [id number] [place] [address]- 4754 Mar, [facility] [place] [facility] [address] [id number], [place] [address]- 2950 Feb, [facility] [place] [facility] [address] [id number] [place] [address]- 8381 Jan, [facility] [place] [facility] [address] [id number][place] [address]- 4487 Jan, [facility] [place] [facility] [address] [id number][place] [address]- 4551 Jan, [facility] [place] [facility] [address] [id number], [place] [address]- 4887 Jan, [facility] [place] [facility] [address] [id number], [place] [address]- 0129 Dec, [facility] [place] [facility] [address] [id number][place] [address]- 5015 Dec, [facility] [place] [facility] [address] [id number], [place] [address]- 3749 Dec, [facility] [place] [facility] [address] [id number][place] [address]- 0988 11 Dec, 2012 [facility] [address] [id number] [place] [address]- 8644 10 Dec, 2012 [facility] [address] [id number] [place] [address]- 4443 07 Dec, 2012 [facility] [address] [id number] [place] [address]- 3667 Dec, [facility] [address] [id number] [place] [address]- 4211 November, [facility] [address] [id number] [place] [address]- 8890 November, [facility] [address] [id number] [place] [address]- 8271 November, [facility] [address] [id number] [place] [address]- 7638 Oct, [facility] [address] [id number] [place] [address]- 3233 Oct, [facility] [address] [id number] [place] [address]- 0268 Oct, [facility] [address] [facility] [id number] [place] [address]- 3729 Oct, [facility] [address] [id number] [place] [address]- 9901 Oct, [facility] [place] [facility] [address] [id number] [place] [address]- 9692 Sep, [facility] [place] [facility] [address] [id number] [place] [address]- 6247 20 Sep, 2012 [facility] [place] [facility] [address] [id number] [place] [address]- 0665 13 Sep, 2012 [facility] [place] [facility] [address] [facility] [id number] [place] [address]- 4440 Sep, [facility] [place] [facility] [address] [id number] [place] [address]- 3482 Aug, [facility] [place] [facility] [address] [id number] [place] [address]- 9746 Aug, [facility] [place] [facility] [address] [id number] [place] [address]- 9266 Aug, [facility] [place] [facility] [address] [id number] [place] [address]- 6216 Aug, [facility] [place] [facility] [address] [id number] [place] [address]- 7923 Jul, [facility] [place] [facility] [address] [id number] [place] [address]- 9952 Jul, [facility] [place] [facility] [address] [id number] [place] [address]- 7861 Jun, [facility] [place] [facility] [address] [id number] [place] [address]- 2779 Jun, [facility] [place] [facility] [address] [id number] [place] [address]- 8400 Jun, [facility] [place] [facility] [address] [facility] [id number] [place] [address]- 4542 Jun, [facility] [place] [facility] [address] [facility] [id number] [place] [address]- 5636 May, [facility] [place] [facility] [address] [id number] [place] [address]- 2157 May, [facility] [place] [facility] [address] [id number] [place] [address]- 4843 May, [facility] [place] [facility] [address] [id number] [place] [address]- 3627 May, [facility] [place] [facility] [address] [id number] [place] [address]- 6518 Apr, [facility] [place] [facility] [address] [id number] [place] [address]- 0534 Apr, [facility] [place] [facility] [address] [id number] [place] [address]- 3148 Apr, [facility] [place] [facility] [address] [id number] [place] [address]- 3650 Apr, [facility] [place] [facility] [address] [id number] [place] [address]- 5659 Apr, [facility] [place] [facility] [address] [id number] [place] [address]75 Apr, [facility] [place] [facility] [address] [id number] [place] [address]- 8415 Apr, [facility] [place] [facility] [address] [id number] [place] [address]- 0334 Apr, [facility] [place] [facility] [address] [id number] [place] [address]709 Apr, [facility] [place] [facility] [address] [id number] [place] [address]- 4759 Apr, [facility] [place] [facility] [address] [id number] [place] [address]- 4208 Feb, [facility] [place] [facility] [address] [id number] [place] [address]- 3828 Feb, [facility] [place] [facility] [address] [id number] [place] [address]- 7464 Jan, [facility] [place] [facility] [address] [id number] [place] [address]- 8949 Jan, [facility] [place] [facility] [address] [id number] [place] [address]- 2550 Jan, [facility] [place] [facility] [address] [id number] [place] [address]- 2429 Jan, [facility] [place] [facility] [address] [id number] [place] [address]- 2879 Jan, [facility] [place] [facility] [address] [id number] [place] [address]- 2546 Jan, [facility] [address] [id number] [place] [address]- 6026 Dec, [facility] [place] [facility] [address] [id number] [place] [address] 2546 November, [facility] [address] [id number] [place] [address]- 6436 November, [facility] [address] [id number] [place] [address]- 9627 November, [facility] [address] [id number] [place] [address]- 3076 Sep, [facility] [address] [id number] [place] [address]- 2556 Sep, [facility] [address] [id number] [place] [address]- 6416 Sep, [facility] [address] [id number] [place] [address]- 1267 Sep, [facility] [address] [id number] [place] [address]- 3166 Sep, [facility] [address] [id number] [place] [address]- 6456 Sep, [facility] [place] [facility] [address] [id number] [place] [address]- 0886 Aug, [facility] [address] [id number] [place] [address]- 8326 Aug, [facility] [place] [facility] [address] [id number] [place] [address]- 2546 Aug, [facility] [place] [facility] [address] [id number] [place] [address]- 2546 Jul, [facility] [place] [facility] [address] [id number] [place] [address]- 4739 Jul, [facility] [place] [facility] [address] [id number] [place] [address]- 6219 Jul, [facility] [place] [facility] [address] [id number] [place] [address]- 7136 Jul, [facility] [place] [facility] [address] [id number] [place] [address]- 6287 Jun, [facility] [place] [facility] [address] [id number] [place] [address]- 8494 Jun, [facility] [place] [facility] [address] [id number] [place] [address]- 6997 Jun, [facility] [place] [facility] [address] [id number] [place] [address]- 8233 Jun, [facility] [place] [facility] [address] [id number] [place] [address]- 1165 Jun, [facility] [place] [facility] [address] [id number] [place] [address]- 0234 Jun, [facility] [place] [facility] [address] [id number] [place] [address]- 1597 May, [facility] [place] [facility] [address] [id number] [place] [address]- 3094 May, [facility] [place] [facility] [address] [id number], [place] [address]- 8956 May, [facility] [place] [facility] [address] [id number], [place] [address]- 5506 Apr, [facility] [place] [facility] [address] [id number] [place] [address]- 7060 Jan, [facility] [place] [facility] [address] [id number] [place] [address]- 7119 Jun, [facility] [place] [facility] [address] [id number] [place] [address]- 3420 Jun, [facility] [place] [facility] [address] [id number] [place] [address]- 0346 15 Jun, 2010 [facility] [address] [id number] [place] [address] 2546 15 Jun, 2010 [facility] [place] [facility] [address] [id number] [place] [address] 2546 15 Jun, 2010 [facility] [address] [id number] [place] [address] 2546 13 Jun, 2010 [facility] [place] [facility] [address] [id number] [place] [address] 2546 13 Jun, 2010 [facility] [address] [id number] [place] [address]- 3556 21 Apr, 2010 [facility] [address] [id number] [place] [address] 2546 17 Feb, 2010 [facility] [address] [id number] [place] [address]- 9239 15 Aug, 2009 [facility] [address] [id number] [place] [address] 18 Jul, 2009 [facility] [address] [id number] [place] [address] 11 Jul, 2009 [facility] [address] [facility] [id number] [place] [address] 29 Jun, 2009 [facility] [address] [id number] [place] [address] 28 Jun, 2009 [facility] [place] [facility] [address] [id number] [place] [address] 28 Jun, 2009 [facility] [place] [facility] [address] [id number] [place] [address] 22 Jun, 2009 [facility] [place] [facility] [address] [id number] [place] [address] 16 Jun, 2009 [facility] [place] [facility] [address] [id number] [place] [address] Jun, [facility] [address] [facility] [address] [id number], [place] [address] Jun, [facility] [address] [facility] [id number], [place] [address] May, [facility] [address] [facility] [id number], [place] [address] May, [facility] [address] [facility] [id number] [place] [address] May, [facility] [address] [facility] [id number], [place] [address] May, [facility] [address] [facility] [id number], [place] [address] May, [facility] [id number], [place] [address] May, [facility] [id number] [place] [address] May, [facility] [id number], [place] [address] Apr, [facility] [id number], [place] [address] Apr, [facility] [id number], [place] [address] Jan, [facility] [id number], [place] [address] Oct, IMMUNIZATIONS No Known Immunizations SOCIAL HISTORY Never Assessed REASON FOR VISIT EMR-[facility] PLAN OF CARE VITAL SIGNS MEDICATIONS Medication Instructions Dosage Frequency Start Date End Date Duration Status GlucaGen HypoKit 1 mg 1 dose by Subcutaneous route 1 time per day PRN as directed for hypoglycemia Jan, Active Doxycycline Hyclate 100 mg 1 tablet by Oral route 2 times per day for 10 days Jan, Active Nitrofurantoin Macrocrystal 100 mg 1 capsule by Oral route 2 times per day for 7 day(s) Apr, Active fluticasone 220 mcg/actuation inhale 2 puffs (440 mcg) by inhalation route 2 times per day Sep, Active Levaquin 500 mg 1 tablet by Oral route every 24 hours for 10 days Sep, Active Celexa 20 mg 1 tablet by Oral route 1 time per day Jul, Active montelukast 10 mg take 1 tablet (10 mg) by oral route once daily in the evening Aug, Active Aspirin 81 mg 1 tablet by Oral route 1 time per day Jul, Active NovoLog Flexpen 100 unit/mL 7 units by Subcutaneous route 3 times per day with meals November, Active budesonide-formoterol 160-4.5 mcg/actuation inhale 2 puffs by inhalation route 2 times per day in the morning and evening Sep, Active Clindamycin HCl 150 mg 1 capsule by Oral route every 6 hours for 7 days Apr, Active Plavix 75 mg 1 tablet by Oral route 1 time per day Sep, Active Albuterol Sulfate 90 mcg/actuation inhale 2 puffs by inhalation route every 4 hours as needed Sep, Active Docusate Sodium 100 mg take 3 capsules by Oral route at bedtime as needed 2 times per day Sep, Active Cipro 500 mg 1 tablet by Oral route every 12 hours for 7 day(s) Apr Active Protonix 40 mg take 1 tablet (40 mg) by oral route once daily Aug, Active Vitamin D 5,000 unit 1 Capsule 1 time per day Sep, Active RESULTS No Results PROCEDURES No Known procedures [...] body and Parkinson's Surgical History quadruple bypass 2007 Surgical History trach surgery 2006 Surgical History Removal of big toe, 2nd, and 3rd toes Surgical History hysterectomy Surgical History tonsillectomy Surgical History choecystectomy Surgical History Lt toe amputated January 2016 Surgical History tubes in ears bilaterally 2015 Surgical History put a stint in above the right knee Aug 2016 Surgical History Retinal Surgery- Right Eye 2016 Surgical History Left Eye Laser Sugery (history of 10 eye surgeries) 07/2017 Surgical History Left foot 2nd toe removed 05/25/2018 Hospitalization History surgeries Hospitalization History MRSA Hospitalization History [facility] for no circulation to lt foot/diabetic coma while in hospital January 2016
--- OUTSIDE RECORDS SUMMARY | 2018-11-09 12:39 | XMS REPORT ---
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 Name Role Phone Migration, Doctor Unavailable Unavailable PROBLEMS Type Condition ICD9-CM Code PSV45-KA Code Onset Dates Condition Status SNOMED Code Problem Dementia with Lewy bodies G31.83 Active 368871403 Problem Coronary artery disease involving [place] coronary artery of [place] heart without angina pectoris I25.10 Active 4919672352880 Problem Dementia in other diseases classified elsewhere without behavioral disturbance F02.80 Active 068995050 Problem Other frontotemporal dementia G31.09 Active 344145732 Problem Unsteady gait R26.81 Active 45529738 Problem Hypoglycemia E16.2 Active 155383488 Problem Essential hypertension I10 Active 85413602 Problem 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 Active 149723314 Problem Neuropathy G62.9 Active 831892533 Problem Hypothyroidism (acquired) E03.9 Active 258634796 Problem Polydipsia R63.1 Active 08399659 Problem Dysthymia F34.1 Active 31960540 Problem Hypernatremia E87.0 Active 79641921 Problem Hyperlipemia, mixed E78.2 Active 399897686 Problem Hallucinations R44.3 Active 0511328 Problem Episodic cluster headache, not intractable G44.019 Active 066624889 Problem Parkinsons disease G20 Active 42785145 Problem Need for assistance due to unsteady gait R26.89 Active 960294159 Problem Type 2 diabetes mellitus with unspecified complications E11.8 Active 15574970 Problem Type 2 diabetes mellitus with diabetic neuropathy, unspecified E11.40 Active 59914035 Problem Dysuria R30.0 Active 00440740 Problem PVD (peripheral vascular disease) I73.9 Active 922871105 Problem Mixed stress and urge urinary incontinence N39.46 Active 889039401 Problem Neurogenic orthostatic hypotension G90.3 Active 160282160 Problem Anxiety F41.9 Active 78452656 Problem 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 Active [id number] ALLERGIES No Information ENCOUNTERS Encounter Location Date Diagnosis [facility] [id number] [place] [address] 13449- 6232 Oct, [facility] [id number] [place] [address] 09349- 4850 15 Sep, 2018 Left shoulder pain M25.512 [facility] [id number] [place] [address] 93314- 1195 14 Sep, 2018 Parkinsons disease G20 [facility] [id number] [place] [address] 08056- 2492 Aug, Left shoulder pain M25.512 [facility] [id number] [place] [address] 60388- 8501 Aug, [facility] [id number] [place] [address] 87724- 4983 Aug, Need for assistance due to unsteady gait R26.89 ; Type 2 diabetes mellitus with diabetic neuropathy, unspecified E11.40 ; PVD ( peripheral vascular disease) I73.9 ; Parkinsons disease G20 and Dementia with Lewy bodies G31.83 [facility] [id number] [place] [address] 85524- 3493 Jul, Left shoulder pain M25.512 [facility] [id number] [place] [address] 36473- 7547 Jun, Type 2 diabetes mellitus with unspecified complications E11.8 [facility] [id number] [place] [address] 45938- 8775 May, Left shoulder pain M25.512 [facility] [id number] [place] [address] 63229- 9417 May, Left shoulder pain M25.512 [facility] [id number] [place] [address] 37332- 8561 May, Parkinsons disease G20 [facility] [id number] [place] [address] 99496- 1306 Apr, Dysuria R30.0 and Hypothyroidism (acquired) E03.9 [facility] [address] 01318- 3600 Apr, Dysuria R30.0 and Increased urinary frequency R35.0 [facility] [address] 93404- 0501 Apr, [facility] [address] 02830- 1646 Apr, Parkinsons disease G20 and Hypothyroidism (acquired) E03.9 [facility] [address] 41626- 9811 Apr, [facility] [address] 08534 -8516 05 Apr, 2018 Dysuria R30.0 and Cystitis N30.90 [facility] [address] 63637- 8196 28 Mar, 2018 Left shoulder pain M25.512 [facility] [address] 04454- 5002 Mar, [facility] [address] 82634- 1387 Mar, Hyperlipemia, mixed E78.2 ; Essential hypertension I10 and Coronary artery disease involving [place] coronary artery of [place] heart without angina pectoris I25.10 [facility] [address] 40916- 3067 Mar, Type 2 diabetes mellitus with unspecified complications E11.8 [facility] [address] 20983- 6520 17 Mar, 2018 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 [facility] [address] 28871- 2768 Mar, [facility] [address] 73960- 1470 06 Mar, 2018 [facility] [id number] [place] [address] 92790- 1390 Mar, [facility] [address] 46658- 4932 Mar, [facility] [id number] [place] [address] 22666- 9170 Mar, Cellulitis of left lower extremity L03.116 and Petechial rash R23.3 [facility] [address] 29842- 3471 Feb, Left shoulder pain M25.512 [facility] [address] 00085- 0967 Feb, Left shoulder pain M25.512 [facility] [address] 99829- 5762 Feb, 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 [facility] [address] 44897- 7853 Jan, Left shoulder pain M25.512 [facility] [address] 84743- 1335 Dec, Parkinsons disease G20 [facility] [address] 94394- 9358 Dec, Left shoulder pain M25.512 [facility] [id number] [place] [address] 19391- 9316 Dec, Type 2 diabetes mellitus with unspecified complications E11.8 ; Anxiety F41.9 ; Therapeutic drug monitoring Z51.81 and Analgesic use Z79.899 [facility] [address] 62800- 2780 November, [facility] [id number] [place] [address] 06873- 8315 November, [facility] [address] 40180- 5528 November, Left shoulder pain M25.512 [facility] [id number] [place] [address] 09097- 2031 Oct, [facility] [id number] [place] [address] 98712 -9709 Oct, [facility] [id number] [place] [address] 66111- 1619 Oct, Parkinsons disease G20 [facility] [id number] [place] [address] 50571 -2064 18 Oct, 2017 Acute cystitis without hematuria N30.00 and Viral upper respiratory tract infection J06.9 [facility] [id number] [place] [address] 15667- 2167 Oct, [facility] [id number] [place] [address] 97320- 1728 Oct, Type 2 diabetes mellitus with unspecified complications E11.8 [facility] [id number] [place] [address] 78224- 7530 Oct, Left shoulder pain M25.512 [facility] [id number] [place] [address] 69886- 2572 16 Oct, 2017 Type 2 diabetes mellitus with unspecified complications E11.8 ; Dysuria R30.0 and Neurogenic orthostatic hypotension G90.3 [facility] [id number] [place] [address] 74557- 6678 Sep, Left shoulder pain M25.512 [facility] [id number] [place] [address] 29764- 5168 12 Sep, 2017 Medicare annual wellness visit, initial Z00.00 ; Parkinsons disease G20 ; Type 2 diabetes mellitus with unspecified complications E11.8 ; Essential hypertension I10 ; Coronary artery disease involving [place] coronary artery of [place] heart without angina pectoris I25.10 ; Hypothyroidism (acquired ) E03.9 ; PVD (peripheral vascular disease) I73.9 ; Dysthymia F34.1 ; Hyperlipemia, mixed E78.2 ; Neuropathy G62.9 ; Encounter for immunization Z23 ; Encounter for other screening for malignant neoplasm of breast Z12.39 and Mixed stress and urge urinary incontinence N39.46 [facility] [address] 72514- 1438 25 Aug, 2017 Parkinsons disease G20 [facility] [address] 12951- 1338 Aug, Type 2 diabetes mellitus with unspecified complications E11.8 ; Left shoulder pain M25.512 and Hypotensive episode I95.9 [facility] [address] 77865- 9594 09 Aug, 2017 Coronary artery disease involving [place] coronary artery of [place] heart without angina pectoris I25.10 [facility] [address] 89436- 5661 07 Aug, 2017 Type 2 diabetes mellitus with unspecified complications E11.8 [facility] [address] 26507- 8468 Jul, Callus of foot L84 [facility] [address] 46905- 6166 Jul, [facility] [address] 59969- 7659 Jul, Callus of foot L84 ; Episodic cluster headache, not intractable G44.019 ; Type 2 diabetes mellitus with unspecified complications E11.8 and Parkinsons disease G20 [facility] [id number] [place] [address] 70123- 1626 Jul, [facility] [address] 51079- 6809 Jul, [facility] [address] 25869- 5875 Jun, Type 2 diabetes mellitus with unspecified complications E11.8 ; Unsteady gait R26.81 ; Forgetfulness R68.89 and Hallucinations R44.3 [facility] [address] [address] 3[address] Jun, [facility] [id number] [place] [address] 91491- 6309 Jun, Left shoulder pain M25.512 [facility] [id number] [place] [address] 71196- 3866 May, Hypernatremia E87.0 and Polydipsia R63.1 [facility] [id number] [place] [address] 51165- 0901 May, Hypernatremia E87.0 and Polydipsia R63.1 [facility] [id number] [place] [address] 30432- 6161 May, Hypoglycemia E16.2 ; Dysuria R30.0 ; Unsteadiness on feet R26.81 ; Forgetfulness R68.89 ; Type 2 diabetes mellitus with unspecified complications E11.8 and Yeast infection involving the vagina and surrounding area B37.3 [facility] [id number] [place] [address] 98008- 9256 May, Acute cystitis without hematuria N30.00 [facility] [address] [place] [address] 42016 -9023 Apr, Dysuria R30.0 and Acute cystitis without hematuria N30.00 [facility] [id number] [place] [address] 62191- 6026 Apr, Hypernatremia E87.0 and Polydipsia R63.1 [facility] [address] [place] [address] 82098- 2797 Apr, Vertigo R42 and Type 2 diabetes mellitus with unspecified complications E11.8 [facility] [address] [place] [address] 28364- 2396 Mar, [facility] [id number] [place] [address] 32288- 2241 Mar, Left shoulder pain M25.512 [facility] [id number] [place] [address] 10588- 5382 13 Mar, 2017 Vertigo R42 [facility] [id number] [place] [address] 13166- 6518 12 Mar, 2017 Polydipsia R63.1 [facility] [id number] [place] [address] 45624- 9456 12 Mar, 2017 Polydipsia R63.1 [facility] [id number] [place] [address] 51417- 6531 11 Mar, 2017 Vertigo R42 [facility] [address] 89829- 5067 07 Mar, 2017 Type 2 diabetes mellitus with unspecified complications E11.8 ; Vertigo R42 ; Polydipsia R63.1 ; Polyuria R35.8 ; Hypothyroidism ( acquired) E03.9 ; Abnormal urinalysis R82.90 and Dysthymia F34.1 [facility] [id number] [place] [address] 88757- 0218 05 Mar, 2017 Coronary artery disease of [place] artery with stable angina pectoris, unspecified whether [place] or transplanted heart I25.118 ; Systolic CHF, chronic I50.22 ; Hyperlipemia, mixed E78.2 and Essential hypertension I10 [facility] [id number] [place] [address] [id number] Feb, Dental caries K02.9 [facility] [id number] [place] [address] 36958- 4827 Feb, Type 2 diabetes mellitus with diabetic neuropathy, unspecified E11.40 [facility] [address] 65378- 5997 23 Dec, 2016 Left shoulder pain M25.512 [facility] [id number] [place] [address] 24997- 2090 16 Dec, 2016 [facility] [address] 51397- 3093 Dec, Type 2 diabetes mellitus with unspecified complications E11.8 [facility] [id number] [id number] Dec, Dental examination Z01.20 [facility] [address] [address]- 1585 08 Dec, 2016 Type 2 diabetes mellitus with diabetic neuropathy, unspecified E11.40 [facility] [id number] [place] [address] 17294- 1916 Dec, [facility] [address] [place] [address] 221549- 6217 Dec, Type 2 diabetes mellitus with diabetic neuropathy, unspecified E11.40 [facility] [address], [place] [address]- 1726 November, Left shoulder pain M25.512 [facility] [id number] [place] [address] 87216- 4513 November, [facility] [address] [place] [address] 03163- 2853 November, Type 2 diabetes mellitus with unspecified complications E11.8 and Dysuria R30.0 [facility] [address], [place] [address]- 7886 Oct, Left shoulder pain M25.512 [facility] [address] [address]- 8288 Sep, Left shoulder pain M25.512 [facility] [address], [place] [address]- 6348 Sep, Pre-op testing Z01.818 [facility] [address] [address]- 8836 Sep, Pre-op testing Z01.818 [facility] [address], [place] [address]- 2036 Sep, Pre-op testing Z01.818 [facility] [id number] [place] [address] 81008- 8869 08 Sep, 2016 Pre-op testing Z01.818 and Mouth pain K13.79 [facility] [address] 92158- 5646 Sep, Left shoulder pain M25.512 [facility] [address] 63443- 9209 08 Aug, 2016 Other eczema L30.8 [facility] [address] 00545- 2632 06 Aug, 2016 PVD (peripheral vascular disease) I73.9 ; Type 2 diabetes mellitus with unspecified complications E11.8 ; Acute cystitis with hematuria N30.01 ; Other eczema L30.8 ; Dysuria R30.0 and Left shoulder pain M25.512 [facility] [address] 28210 -4566 Jul, Otalgia of right ear H92.01 and Blood in ear canal, right H92.21 [facility] [address] 81029- 3267 Jul, Arthralgia, unspecified joint M25.50 ; PVD (peripheral vascular disease) I73.9 and Neuropathy G62.9 [facility] [address] 88909- 7988 Jul, [facility] [address] 84094- 9456 Jun, Medicare annual wellness visit, initial Z00.00 ; Cervicalgia M54.2 ; Radiculopathy of cervical region M54.12 ; Encounter for immunization Z23 ; Type 2 diabetes mellitus with unspecified complications E11.8 and Essential hypertension I10 [facility] [address] 32501- 4260 Jun, [facility] [address] 87408- 6040 May, Hypothyroidism (acquired) E03.9 [facility] [id number] [place] [address] 39144- 3797 May, Dysuria R30.0 ; Essential hypertension I10 ; Hypothyroidism (acquired) E03.9 and PVD (peripheral vascular disease) I73.9 [facility] [id number] [place] [address] 91493 -8730 May, Burning with urination R30.0 and Acute cystitis with hematuria N30.01 [facility] [id number] [place] [address] 33102- 9182 May, Dental examination Z01.20 [facility] [address] 59824- 8162 May, Hypothyroidism (acquired) E03.9 [facility] [address] 45771- 4366 Feb, [facility] [address] 09506- 8241 Feb, 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 ; PVD ( peripheral vascular disease) I73.9 ; Type 2 diabetes mellitus with unspecified complications E11.8 and Essential hypertension I10 [facility] [id number] [place] [address] 92440- 1582 Jan, [facility] [id number] [place] [address] 54064- 0354 Jan, Hypothyroidism (acquired) E03.9 [facility] [id number] [place] [address] 23940- 3520 Jan, [facility] [id number] [place] [address] 31594- 6407 Jan, [facility] [id number] [place] [address] 96213- 2514 Jan, Type 2 diabetes mellitus with unspecified complications E11.8 ; 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 and Essential ( primary) hypertension I10 [facility] [id number] [place] [address] 81364- 6671 Jan, Type 2 diabetes mellitus with unspecified complications E11.8 ; 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 ; Essential hypertension I10 and PVD (peripheral vascular disease) I73.9 [facility] [id number] [place] [address] 12189- 9183 Jan, [facility] [id number] [place] [address] 84653- 1030 Jan, [facility] [address] 31408- 7908 Jan, [facility] [id number] [place] [address] 93988- 4843 Jan, Weakness R53.1 ; Fatigue, unspecified type R53.83 ; PVD ( peripheral vascular disease) I73.9 ; Acute osteomyelitis of other site M86.18 ; Type 2 diabetes mellitus with diabetic neuropathy, unspecified E11.40 and 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 coordinator 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.4 [facility] [address] 82328- 5994 Dec, [facility] [id number] [place] [address] 34594- 7857 Dec, Type 2 diabetes mellitus with unspecified complications E11.8 [facility] [id number] [place] [address] 29350- 1279 Dec, [facility] [address] [place] [address] 95420- 2295 Dec, Pressure ulcer, unspecified pressure ulcer stage L89.90 and Type 2 diabetes mellitus with unspecified complications E11.8 [facility] [id number] [place] [address] 55451 -4626 Dec, Toe infection L08.9 [facility] [address] 35903- 4977 November, Dental caries K02.9 [facility] [id number] [place] [address] 71580- 4353 November, [facility] [id number] [place] [address] 61959- 4380 November, Dental examination Z01.20 [facility] [id number] [place] [address] 33816- 0777 Sep, Lipoma of torso D17.1 and Thoracic neuritis M54.14 [facility] [id number] [place] [address] 36201- 0904 Sep, [facility] [id number] [place] [address] 34609- 3385 Aug, [facility] [id number] [place] [address] 91093 -0344 Jul, Dysuria R30.0 and UTI (urinary tract infection) N39.0 [facility] [id number] [place] [address] 06370- 4475 Jun, Left shoulder pain M25.512 [facility] [id number] [place] [address] 81017- 0313 May, Shoulder pain, left M25.512 [facility] [id number] [place] [address] 51759- 8873 May, [facility] [id number] [place] [address] 49407- 6949 May, [facility] [id number] [place] [address] 63448- 0249 May, Left shoulder pain M25.512 [facility] [id number] [place] [address] 06159- 6628 May, [facility] [id number] [place] [address] 98427- 3654 Apr, Encounter for immunization Z23 [facility] [id number] [place] [address] 19241- 6120 Apr, Urinary tract infection, site not specified N39.0 ; Hypotension, unspecified I95.9 ; Type 2 diabetes mellitus with unspecified complications E11.8 and Generalized edema R60.1 [facility] [id number] [place] [address] 03906- 4606 Apr, [facility] [address] [place] [address] 37369- 9948 Mar, Diabetes with other specified manifestations, type II or unspecified type, not stated as uncontrolled 250.80 [facility] [address] 59439- 0502 Feb, Gout 274.9 and Diabetes 250.00 [facility] [id number] [place] [address] 63477- 9373 Jan, [facility] [address] [place] [address] 37693- 2918 November, CAD (coronary artery disease) 414.00 and CHF (congestive heart failure) 428.0 [facility] [id number] [place] [address] 03430- 2280 Oct, [facility] [id number] [place] [address] 51364- 0379 Oct, [facility] [id number] [place] [address] 40029- 5752 Oct, [facility] [id number] [place] [address] [id number] Sep, [facility] [id number] [place] [address] [id number] Sep, [facility] [id number] [place] [address] [id number] [id number] Sep, [facility] [id number] [place] [address] [phone] Sep, [facility] [place] [facility] [address] [id number] [place] [address] Aug, [facility] [place] [facility] [address] [facility] [id number] [place] [address] Aug, [facility] [place] [facility] [address] [facility] [id number] [place] [address] Aug, [facility] [place] [facility] [address] [id number] [place] [address] Aug, 2014 [facility] [place] [facility] [address] [id number] [place] [address] Aug, 2014 [facility] [place] [facility] [address] [facility] [id number] [place] [address] Aug, [facility] [place] [facility] [address] [facility] [id number] [place] [address]60 Aug, [facility] [place] [facility] [address] [facility] [id number] [place] [address] Aug, [facility] [place] [facility] [address] [facility] [id number] [place] [address] 9428 Jul, [facility] [place] [facility] [address] [facility] [id number] [place] [address] 4[address] Jul, [facility] [place] [facility] [address] [facility] [id number] [place] [address] 7796 Jul, [facility] [place] [facility] [address] [facility] [id number] [address] Jul, [facility] [place] [facility] [address] [facility] [id number] [place] [address] 8178 Jul, [facility] [place] [facility] [address] [facility] [id number] [place] [address] 9655 Jul, [facility] [place] [facility] [address] [facility] [id number], [place] [address] Jul, [facility] [place] [facility] [address] [id number] [place] [address] 2545 Jul, [facility] [place] [facility] [address] [id number] [place] [address]- 2182 Jul, [facility] [place] [facility] [address] [id number] [place] [address] 9776 Jul, [facility] [place] [facility] [address] [id number] [place] [address]- 1214 Jun, [facility] [place] [facility] [address] [id number] [place] [address]- 4004 Jun, [facility] [place] [facility] [address] [id number] [place] [address]- 5757 Jun, [facility] [place] [facility] [address] [id number] [place] [address]- 9871 Jun, [facility] [place] [facility] [address] [id number] [place] [address]- 7713 Jun, [facility] [place] [facility] [address] [id number] [place] [address] Jun, [facility] [place] [facility] [address] [id number] [place] [address]- 3684 Jun, [facility] [place] [facility] [address] [id number] [place] [address]- 2927 Jun, [facility] [place] [facility] [address] [id number] [place] [address]- 2726 Jun, [facility] [place] [facility] [address] [id number] [place] [address]- 8225 Jun, [facility] [place] [facility] [address] [id number] [place] [address]- 7351 May, [facility] [place] [facility] [address] [id number] [place] [address]- 7856 May, [facility] [place] [facility] [address] [id number] [place] [address]- 5010 Mar, [facility] [place] [facility] [address] [id number] [place] [address]- 6948 Mar, [facility] [place] [facility] [address] [id number] [place] [address]- 2755 Mar, [facility] [place] [facility] [address] [id number] [place] [address] 1902 Mar, [facility] [place] [facility] [address] [id number] [place] [address]- 1813 Feb, [facility] [place] [facility] [address] [id number] [place] [address]- 9055 Feb, [facility] [place] [facility] [address] [id number] [place] [address]- 2371 Feb, [facility] [place] [facility] [address] [id number] [place] [address]- 6488 Jan, [facility] [place] [facility] [address] [id number] [place] [address]- 4730 Jan, [facility] [place] [facility] [address] [id number] [place] [address]- 9055 Jan, [facility] [place] [facility] [address] [id number] [place] [address] 1951 Jan, [facility] [place] [facility] [address] [id number] [place] [address]- 2642 Jan, [facility] [place] [facility] [address] [id number] [place] [address]- 5081 Jan, [facility] [place] [facility] [address] [id number] [place] [address]- 5875 Jan, [facility] [place] [facility] [address] [id number] [place] [address]- 0705 Jan, [facility] [place] [facility] [address] [id number] [place] [address]- 2113 Jan, [facility] [place] [facility] [address] [id number] [place] [address]- 3349 Jan, [facility] [place] [facility] [address] [id number] [place] [address]- 1688 Dec, [facility] [place] [facility] [address] [id number] [place] [address]- 7948 Dec, [facility] [place] [facility] [address] [id number] [place] [address]- 6954 November, [facility] [place] [facility] [address] [id number] [place] [address]- 7676 November, [facility] [place] [facility] [address] [id number] [place] [address] November, [facility] [place] [facility] [address] [id number] [place] [address]- 7052 November, [facility] [place] [facility] [address] [id number] [place] [address]- 2628 November, [facility] [place] [facility] [address] [id number] [place] [address]- 6948 November, [facility] [place] [facility] [address] [id number] [place] [address]- 0144 November, [facility] [place] [facility] [address] [id number] [place] [address]- 7700 Oct, [facility] [place] [facility] [address] [id number] [place] [address]- 3958 Oct, [facility] [place] [facility] [address] [id number] [place] [address]- 4435 Sep, [facility] [place] [facility] [address] [id number] [place] [address]- 5905 Sep, [facility] [place] [facility] [address] [id number] [place] [address]- 6465 Sep, [facility] [place] [facility] [address] [id number] [place] [address]- 6988 Sep, [facility] [place] [facility] [address] [id number] [place] [address]- 5251 Sep, [facility] [place] [facility] [address] [id number] [place] [address]- 3475 Sep, [facility] [place] [facility] [address] [id number] [place] [address]- 4520 Sep, [facility] [place] [facility] [address] [id number] [place] [address]- 0577 Sep, [facility] [place] [facility] [address] [id number] [place] [address]- 4331 Sep, [facility] [place] [facility] [address] [id number] [place] [address]- 6052 Sep, [facility] [place] [facility] [address] [id number] [place] [address]- 2928 Aug, [facility] [place] [facility] [address] [id number] [place] [address]- 1146 Aug, [facility] [place] [facility] [address] [id number] [place] [address]- 4433 Jul, [facility] [place] [facility] [address] [id number] [place] [address]- 3225 Jul, [facility] [place] [facility] [address] [id number] [place] [address]- 5427 Jul, [facility] [place] [facility] [address] [id number] [place] [address]- 8851 Jul, [facility] [place] [facility] [address] [id number] [place] [address]- 7538 Jul, [facility] [place] [facility] [address] [id number] [place] [address]- 4268 Jul, [facility] [place] [facility] [address] [id number] [place] [address]- 8399 Jun, [facility] [place] [facility] [address] [id number], [place] [address]- 2190 Jun, [facility] [place] [facility] [address] [id number] [place] [address]- 6833 Jun, [facility] [place] [facility] [address] [id number] [place] [address]- 7297 Jun, [facility] [place] [facility] [address] [id number] [place] [address]- 9264 May, [facility] [place] [facility] [address] [id number] [place] [address]- 5453 14 May, 2013 [facility] [place] [facility] [address] [id number] [place] [address]- 0116 May, [facility] [place] [facility] [address] [id number] [place] [address]- 2918 May, [facility] [place] [facility] [address] [id number] [place] [address]- 6453 May, [facility] [place] [facility] [address] [id number] [place] [address]- 4821 Apr, [facility] [place] [facility] [address] [id number] [place] [address]- 4098 31 Apr, 2013 [facility] [place] [facility] [address] [id number] [place] [address]- 7783 Apr, [facility] [place] [facility] [address] [id number], [place] [address]- 1391 Apr, [facility] [place] [facility] [address] [id number], [place] [address]- 5775 Apr, [facility] [place] [facility] [address] [id number] [place] [address]- 5615 28 Apr, 2013 [facility] [place] [facility] [address] [id number] [place] [address]- 6027 Apr, [facility] [place] [facility] [address] [id number] [place] [address]- 7432 Apr, [facility] [place] [facility] [address] [id number] [place] [address]- 1309 Apr, [facility] [place] [facility] [address] [id number] [place] [address]- 7243 Apr, [facility] [place] [facility] [address] [id number] [place] [address]- 1656 Apr, [facility] [place] [facility] [address] [id number] [place] [address]- 2741 Apr, [facility] [place] [facility] [address] [id number] [place] [address]- 4223 Mar, [facility] [place] [facility] [address] [id number] [place] [address]- 4671 Mar, [facility] [place] [facility] [address] [id number] [place] [address]- 9747 Feb, [facility] [place] [facility] [address] [id number] [place] [address]- 4431 Jan, [facility] [place] [facility] [address] [id number] [place] [address]- 3292 Jan, [facility] [place] [facility] [address] [id number] [place] [address]- 9934 Jan, [facility] [place] [facility] [address] [id number] [place] [address]- 4649 Jan, [facility] [place] [facility] [address] [id number] [place] [address]- 8059 Dec, [facility] [place] [facility] [address] [id number] [place] [address]- 0029 Dec, [facility] [place] [facility] [address] [id number] [place] [address]- 8239 Dec, [facility] [place] [facility] [address] [id number] [place] [address]- 2546 Dec, [facility] [place] [facility] [address] [id number] [place] [address]- 7876 Dec, [facility] [address] [id number] [place] [address]- 9670 Dec, [facility] [address] [id number] [place] [address]- 9597 Dec, [facility] [address] [id number] [place] [address]- 1281 November, [facility] [address] [id number] [place] [address]- 0778 November, [facility] [address] [id number] [place] [address]- 0671 November, [facility] [address] [id number] [place] [address]- 2587 Oct, [facility] [address] [id number] [place] [address]- 7865 Oct, [facility] [address] [id number] [place] [address]- 6924 Oct, [facility] [address] [id number] [place] [address]- 0755 Oct, [facility] [address] [id number] [place] [address]- 9032 Oct, [facility] [place] [facility] [address] [id number] [place] [address]- 4504 Sep, [facility] [place] [facility] [address] [id number], [place] [address]- 8347 Sep, [facility] [place] [facility] [address] [id number] [place] [address]- 5927 Sep, [facility] [place] [facility] [address] [id number] [place] [address]- 6120 Sep, [facility] [place] [facility] [address] [id number] [place] [address]- 5437 Aug, [facility] [place] [facility] [address] [id number] [place] [address]- 9532 05 Aug, 2012 [facility] [address] [id number] [place] [address]- 1426 Aug, 2012 [facility] [place] [facility] [address] [id number] [place] [address]- 7536 Aug, [facility] [address] [id number] [place] [address]- 3660 Jul, [facility] [place] [facility] [address] [id number] [place] [address]- 0680 Jul, [facility] [address] [id number] [place] [address]- 3527 Jun, [facility] [address] [id number] [place] [address]- 9869 Jun, [facility] [address] [id number] [place] [address]- 3512 Jun, [facility] [address] [facility] [id number] [place] [address]- 5587 Jun, [facility] [address] [id number] [place] [address]- 7561 May, [facility] [address] [facility] [id number] [place] [address]- 5982 May, [facility] [place] [facility] [address] [facility] [id number] [place] [address]- 9300 May, [facility] [place] [facility] [address] [facility] [id number] [place] [address]- 8737 May, [facility] [place] [facility] [address] [facility] [id number] [place] [address]- 0586 Apr, [facility] [place] [facility] [address] [facility] [id number] [place] [address]- 7767 Apr, [facility] [place] [facility] [address] [facility] [id number] [place] [address]- 1841 Apr, [facility] [place] [facility] [address] [id number] [place] [address]- 8181 Apr, [facility] [place] [facility] [address] [id number] [place] [address]- 8537 Apr, [facility] [place] [facility] [address] [id number] [place] [address]- 1861 Apr, [facility] [place] [facility] [address] [id number] [place] [address]- 3529 Apr, [facility] [place] [facility] [address] [id number] [place] [address]- 7520 Apr, [facility] [place] [facility] [address] [id number] [place] [address]- 6063 Apr, [facility] [place] [facility] [address] [id number] [place] [address]- 0097 Apr, [facility] [place] [facility] [address] [id number] [place] [address]- 9903 Feb, [facility] [place] [facility] [address] [id number] [place] [address]- 8437 Feb, [facility] [place] [facility] [address] [id number] [place] [address]- 0463 Jan, [facility] [place] [facility] [address] [id number] [place] [address]- 9492 Jan, [facility] [place] [facility] [address] [id number], [place] [address]- 4181 Jan, [facility] [place] [facility] [address] [id number] [place] [address]- 3441 Jan, [facility] [place] [facility] [address] [id number] [place] [address]- 8307 Jan, [facility] [place] [facility] [address] [id number] [place] [address]- 2567 Jan, [facility] [place] [facility] [address] [id number], [place] [address]- 9611 Dec, [facility] [address] [id number] [place] [address]- 9647 November, [facility] [place] [facility] [address] [id number] [place] [address]- 4266 November, [facility] [address] [id number] [place] [address]- 3391 November, [facility] [place] [facility] [address] [id number] [place] [address]- 2828 Sep, [facility] [address] [id number] [place] [address]- 3259 Sep, [facility] [address] [id number] [place] [address]- 7837 Sep, [facility] [address] [facility] [id number] [place] [address]- 7498 Sep, [facility] [place] [facility] [address] [id number] [place] [address]- 5078 Sep, [facility] [address] [id number] [place] [address]- 7040 Sep, [facility] [place] [facility] [address] [facility] [id number] [place] [address]- 0030 13 Aug, 2011 [facility] [place] [facility] [address] [id number] [place] [address]- 1257 Aug, [facility] [place] [facility] [address] [id number] [place] [address]- 3549 Aug, [facility] [place] [facility] [address] [id number] [place] [address]- 3506 Jul, [facility] [place] [facility] [address] [id number] [place] [address]- 2570 Jul, [facility] [place] [facility] [address] [facility] [id number] [place] [address]- 8421 Jul, [facility] [place] [facility] [address] [id number] [place] [address]- 9453 Jul, [facility] [place] [facility] [address] [id number] [place] [address]- 2236 Jun, [facility] [place] [facility] [address] [id number] [place] [address]- 3006 Jun, [facility] [place] [facility] [address] [id number] [place] [address]- 6306 Jun, [facility] [place] [facility] [address] [id number] [place] [address]- 7688 Jun, [facility] [place] [facility] [address] [id number] [place] [address]- 3904 Jun, [facility] [place] [facility] [address] [id number] [place] [address]- 6714 Jun, [facility] [place] [facility] [address] [id number] [place] [address]- 9060 May, [facility] [place] [facility] [address] [id number] [place] [address]- 2299 May, [facility] [place] [facility] [address] [id number] [place] [address]- 1759 May, [facility] [place] [facility] [address] [id number] [place] [address]- 4613 Apr, [facility] [place] [facility] [address] [id number] [place] [address]- 4201 Jan, [facility] [place] [facility] [address] [id number] [place] [address]- 5217 Jun, [facility] [place] [facility] [address] [id number] [place] [address]- 2546 Jun, [facility] [place] [facility] [address] [id number] [place] [address] 2546 15 Jun, 2010 [facility] [place] [facility] [address] [id number] [place] [address]- 2632 15 Jun, 2010 [facility] [address] [id number] [place] [address]- 7776 15 Jun, 2010 [facility] [place] [facility] [address] [id number] [place] [address]- 9446 13 Jun, 2010 [facility] [address] [facility] [id number] [place] [address]- 3426 13 Jun, 2010 [facility] [place] [facility] [address] [id number] [place] [address] Apr, [facility] [address] [id number] [place] [address] 17 Feb, 2010 [facility] [address] [id number] [place] [address] 15 Aug, 2009 [facility] [address] [id number] [place] [address] 18 Jul, 2009 [facility] [place] [facility] [address] [id number] [address] 11 Jul, 2009 [facility] [address] [id number] [place] [address] 29 Jun, 2009 [facility] [place] [facility] [address] [id number] [place] [address] 28 Jun, 2009 [facility] [place] [facility] [address] [id number], [place] [address] 28 Jun, 2009 [facility] [place] [facility] [address] [id number], [place] [address] 22 Jun, 2009 [facility] [place] [facility] [address] [id number] [place] [address] 16 Jun, 2009 [facility] [place] [facility] [address] [facility] [id number], [place] [address] 09 Jun, 2009 [facility] [place] [facility] [address] [facility] [id number], [place] [address] Jun, [facility] [place] [facility] [id number] [address] 30 May, 2009 [facility] [id number] [address] May, [facility] [id number] [address] May, [facility] [id number], [place] [address] May, [facility] [id number], [place] [address] May, [facility] [id number] [place] [address] May, [facility] [id number], [place] [address] May, [facility] [id number] [place] [address] Apr, [facility] [id number] [address] Apr, [facility] [id number], [place] [address] Jan, [facility] [id number] [address] Oct, IMMUNIZATIONS No Known Immunizations SOCIAL HISTORY Never Assessed REASON FOR VISIT [facility] PLAN OF CARE VITAL SIGNS MEDICATIONS Unknown [...] quadruple bypass 2007 Surgical History trach surgery 2007 Surgical History Removal of big toe, 2nd, [...]
--- OUTSIDE RECORDS SUMMARY | 2018-11-09 12:40 | XMS REPORT ---
Author Author Migration, Doctor Organization [facility] Address Unknown Phone Unavailable Care Team Providers Care Actimize Architect Name Role Phone Migration, Doctor Unavailable Unavailable PROBLEMS Type Condition ICD9-CM Code HYF64-VU Code Onset Dates Condition Status SNOMED Code Problem Dementia with Lewy bodies G31.83 Active 753721253 Problem Coronary artery disease involving [place] coronary artery of [place] heart without angina pectoris I25.10 Active 7370207636951 Problem Dementia in other diseases classified elsewhere without behavioral disturbance F02.80 Active 822207413 Problem Other frontotemporal dementia G31.09 Active 133281512 Problem Unsteady gait R26.81 Active 83366828 Problem Hypoglycemia E16.2 Active 292619923 Problem Essential hypertension I10 Active 59747198 Problem 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 Active 011442094 Problem Neuropathy G62.9 Active 245828147 Problem Hypothyroidism (acquired) E03.9 Active 711082169 Problem Polydipsia R63.1 Active 78485297 Problem Dysthymia F34.1 Active 65875404 Problem Hypernatremia E87.0 Active 26802903 Problem Hyperlipemia, mixed E78.2 Active 128338189 Problem Hallucinations R44.3 Active 5375544 Problem Episodic cluster headache, not intractable G44.019 Active 851106347 Problem Parkinsons disease G20 Active 39800845 Problem Need for assistance due to unsteady gait R26.89 Active 427429303 Problem Type 2 diabetes mellitus with unspecified complications E11.8 Active 02430009 Problem Type 2 diabetes mellitus with diabetic neuropathy, unspecified E11.40 Active 69267491 Problem Dysuria R30.0 Active 44244685 Problem PVD (peripheral vascular disease) I73.9 Active 619141272 Problem Mixed stress and urge urinary incontinence N39.46 Active 215690883 Problem Neurogenic orthostatic hypotension G90.3 Active 331465883 Problem Anxiety F41.9 Active 91344728 Problem 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 Active [id number] ALLERGIES No Information ENCOUNTERS Encounter Location Date Diagnosis [facility] [id number] [place] [address] 27281- 3723 Oct, [facility] [id number] [place] [address] 93083- 0795 15 Sep, 2018 Left shoulder pain M25.512 [facility] [id number] [place] [address] 70374- 3645 14 Sep, 2018 Parkinsons disease G20 [facility] [id number] [place] [address] 03301- 9755 Aug, Left shoulder pain M25.512 [facility] [id number] [place] [address] 10369- 2223 Aug, [facility] [id number] [place] [address] 56989- 6466 Aug, Need for assistance due to unsteady gait R26.89 ; Type 2 diabetes mellitus with diabetic neuropathy, unspecified E11.40 ; PVD ( peripheral vascular disease) I73.9 ; Parkinsons disease G20 and Dementia with Lewy bodies G31.83 [facility] [id number] [place] [address] 62300- 7668 Jul, Left shoulder pain M25.512 [facility] [id number] [place] [address] 00750- 4040 Jun, Type 2 diabetes mellitus with unspecified complications E11.8 [facility] [id number] [place] [address] 34218- 2135 May, Left shoulder pain M25.512 [facility] [id number] [place] [address] 59622- 6133 May, Left shoulder pain M25.512 [facility] [id number] [place] [address] 44681- 8945 May, Parkinsons disease G20 [facility] [id number] [place] [address] 95214- 5101 Apr, Dysuria R30.0 and Hypothyroidism (acquired) E03.9 [facility] [address] 42335- 6457 Apr, Dysuria R30.0 and Increased urinary frequency R35.0 [facility] [address] 44724- 5908 Apr, [facility] [address] 98509- 9484 Apr, Parkinsons disease G20 and Hypothyroidism (acquired) E03.9 [facility] [address] 38553- 4267 Apr, [facility] WALK IN [facility] [address] 43031 -7824 05 Apr, 2018 Dysuria R30.0 and Cystitis N30.90 [facility] [address] 94796- 7280 28 Mar, 2018 Left shoulder pain M25.512 [facility] [address] 46855- 4815 Mar, [facility] [address] 98290- 2998 Mar, Hyperlipemia, mixed E78.2 ; Essential hypertension I10 and Coronary artery disease involving [place] coronary artery of [place] heart without angina pectoris I25.10 [facility] [address] 40247- 5925 Mar, Type 2 diabetes mellitus with unspecified complications E11.8 [facility] [address] 83040- 8485 17 Mar, 2018 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 [facility] [address] 89025- 4169 Mar, [facility] [address] 91084- 4760 06 Mar, 2018 [facility] [id number] [place] [address] 90616- 4076 Mar, [facility] [address] 67513- 7548 Mar, [facility] [id number] [place] [address] 11239- 9254 Mar, Cellulitis of left lower extremity L03.116 and Petechial rash R23.3 [facility] [address] 24143- 1837 Feb, Left shoulder pain M25.512 [facility] [address] 12069- 1106 Feb, Left shoulder pain M25.512 [facility] [address] 78360- 7865 Feb, 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 [facility] [address] 93134- 4677 Jan, Left shoulder pain M25.512 [facility] [address] 80047- 1627 Dec, Parkinsons disease G20 [facility] [address] 97902- 7500 Dec, Left shoulder pain M25.512 [facility] [id number] [place] [address] 13880- 5145 Dec, Type 2 diabetes mellitus with unspecified complications E11.8 ; Anxiety F41.9 ; Therapeutic drug monitoring Z51.81 and Analgesic use Z79.899 [facility] [address] 75338- 4977 November, [facility] [id number] [place] [address] 87985- 9106 November, [facility] [address] 27126- 8815 November, Left shoulder pain M25.512 [facility] [id number] [place] [address] 70228- 8462 Oct, [facility] [id number] [place] [address] 36701 -7938 Oct, [facility] [id number] [place] [address] 15994- 8921 Oct, Parkinsons disease G20 [facility] [id number] [place] [address] 83075 -9412 18 Oct, 2017 Acute cystitis without hematuria N30.00 and Viral upper respiratory tract infection J06.9 [facility] [id number] [place] [address] 35384- 5209 Oct, [facility] [id number] [place] [address] 82697- 1592 Oct, Type 2 diabetes mellitus with unspecified complications E11.8 [facility] [id number] [place] [address] 95630- 6262 Oct, Left shoulder pain M25.512 [facility] [id number] [place] [address] 82184- 0765 16 Oct, 2017 Type 2 diabetes mellitus with unspecified complications E11.8 ; Dysuria R30.0 and Neurogenic orthostatic hypotension G90.3 [facility] [id number] [place] [address] 40311- 9353 Sep, Left shoulder pain M25.512 [facility] [id number] [place] [address] 94333- 3969 12 Sep, 2017 Medicare annual wellness visit, initial Z00.00 ; Parkinsons disease G20 ; Type 2 diabetes mellitus with unspecified complications E11.8 ; Essential hypertension I10 ; Coronary artery disease involving [place] coronary artery of [place] heart without angina pectoris I25.10 ; Hypothyroidism (acquired ) E03.9 ; PVD (peripheral vascular disease) I73.9 ; Dysthymia F34.1 ; Hyperlipemia, mixed E78.2 ; Neuropathy G62.9 ; Encounter for immunization Z23 ; Encounter for other screening for malignant neoplasm of breast Z12.39 and Mixed stress and urge urinary incontinence N39.46 [facility] [address] 68015- 1106 25 Aug, 2017 Parkinsons disease G20 [facility] [address] 15033- 0248 Aug, Type 2 diabetes mellitus with unspecified complications E11.8 ; Left shoulder pain M25.512 and Hypotensive episode I95.9 [facility] [address] 89225- 5803 09 Aug, 2017 Coronary artery disease involving [place] coronary artery of [place] heart without angina pectoris I25.10 [facility] [address] 31821- 4325 07 Aug, 2017 Type 2 diabetes mellitus with unspecified complications E11.8 [facility] [address] 74573- 2301 Jul, Callus of foot L84 [facility] [address] 88129- 2660 Jul, [facility] [address] 27328- 9526 Jul, Callus of foot L84 ; Episodic cluster headache, not intractable G44.019 ; Type 2 diabetes mellitus with unspecified complications E11.8 and Parkinsons disease G20 [facility] [id number] [place] [address] 47585- 7857 Jul, [facility] [address] 47355- 5374 Jul, [facility] [address] 44246- 6467 Jun, Type 2 diabetes mellitus with unspecified complications E11.8 ; Unsteady gait R26.81 ; Forgetfulness R68.89 and Hallucinations R44.3 [place] [address] [address]- 0223 Jun, [facility] [id number] [place] [address] 78500- 0024 Jun, Left shoulder pain M25.512 [facility] [id number] [place] [address] 21269- 3109 May, Hypernatremia E87.0 and Polydipsia R63.1 [facility] [id number] [place] [address] 34507- 1794 May, Hypernatremia E87.0 and Polydipsia R63.1 [facility] [id number] [place] [address] 43941- 9435 May, Hypoglycemia E16.2 ; Dysuria R30.0 ; Unsteadiness on feet R26.81 ; Forgetfulness R68.89 ; Type 2 diabetes mellitus with unspecified complications E11.8 and Yeast infection involving the vagina and surrounding area B37.3 [facility] [id number] [place] [address] 44208- 7458 May, Acute cystitis without hematuria N30.00 [facility] [id number] [place] [address] 81059 -3647 Apr, Dysuria R30.0 and Acute cystitis without hematuria N30.00 [facility] [id number] [place] [address] 67328- 5894 Apr, Hypernatremia E87.0 and Polydipsia R63.1 [facility] [address] [place] [address] 72786- 4745 Apr, Vertigo R42 and Type 2 diabetes mellitus with unspecified complications E11.8 [facility] [address] [place] [address] 96282- 9865 Mar, [facility] [id number] [place] [address] 72724- 6261 Mar, Left shoulder pain M25.512 [facility] [id number] [place] [address] 93969- 3151 13 Mar, 2017 Vertigo R42 [facility] [id number] [place] [address] 95949- 8479 12 Mar, 2017 Polydipsia R63.1 [facility] [id number] [place] [address] 52555- 9209 12 Mar, 2017 Polydipsia R63.1 [facility] [id number] [place] [address] 45097- 0235 11 Mar, 2017 Vertigo R42 [facility] [address] 85745- 0077 07 Mar, 2017 Type 2 diabetes mellitus with unspecified complications E11.8 ; Vertigo R42 ; Polydipsia R63.1 ; Polyuria R35.8 ; Hypothyroidism ( acquired) E03.9 ; Abnormal urinalysis R82.90 and Dysthymia F34.1 [facility] [id number] [place] [address] 64629- 0395 05 Mar, 2017 Coronary artery disease of [place] artery with stable angina pectoris, unspecified whether [place] or transplanted heart I25.118 ; Systolic CHF, chronic I50.22 ; Hyperlipemia, mixed E78.2 and Essential hypertension I10 [facility] [id number] [place] [address] [id number] Feb, Dental caries K02.9 [facility] [id number] [place] [address] 71884- 1612 Feb, Type 2 diabetes mellitus with diabetic neuropathy, unspecified E11.40 [facility] [address] 92622- 0427 23 Dec, 2016 Left shoulder pain M25.512 [facility] [id number] [place] [address] 62045- 6053 16 Dec, 2016 [facility] [address] 18909- 9824 Dec, Type 2 diabetes mellitus with unspecified complications E11.8 [facility] [id number] [id number] Dec, Dental examination Z01.20 [facility] [address] [address]- 1796 08 Dec, 2016 Type 2 diabetes mellitus with diabetic neuropathy, unspecified E11.40 [facility] [id number] [place] [address] 92293- 3971 Dec, [facility] [address] [place] [address] 848145- 2157 Dec, Type 2 diabetes mellitus with diabetic neuropathy, unspecified E11.40 [facility] [address] [address]- 5166 November, Left shoulder pain M25.512 [facility] [id number] [place] [address] 73729- 8763 November, [facility] [address] [place] [address] 32276- 8320 November, Type 2 diabetes mellitus with unspecified complications E11.8 and Dysuria R30.0 [facility] [address] [address]- 5139 Oct, Left shoulder pain M25.512 [facility] [address] [address]- 2217 Sep, Left shoulder pain M25.512 [facility] [address] [address]- 4490 Sep, Pre-op testing Z01.818 [facility] [address], [place] [address]- 8916 Sep, Pre-op testing Z01.818 [facility] [address], [place] [address]- 3886 Sep, Pre-op testing Z01.818 [facility] [id number] [place] [address] 82530- 3723 08 Sep, 2016 Pre-op testing Z01.818 and Mouth pain K13.79 [facility] [address] 33937- 1710 Sep, Left shoulder pain M25.512 [facility] [address] 10595- 2413 08 Aug, 2016 Other eczema L30.8 [facility] [address] 02775- 0795 06 Aug, 2016 PVD (peripheral vascular disease) I73.9 ; Type 2 diabetes mellitus with unspecified complications E11.8 ; Acute cystitis with hematuria N30.01 ; Other eczema L30.8 ; Dysuria R30.0 and Left shoulder pain M25.512 [facility] WALK IN [facility] [address] 36555 -1899 Jul, Otalgia of right ear H92.01 and Blood in ear canal, right H92.21 [facility] [address] 06813- 5903 Jul, Arthralgia, unspecified joint M25.50 ; PVD (peripheral vascular disease) I73.9 and Neuropathy G62.9 [facility] [address] 25292- 7454 Jul, [facility] [address] 74754- 1510 Jun, Medicare annual wellness visit, initial Z00.00 ; Cervicalgia M54.2 ; Radiculopathy of cervical region M54.12 ; Encounter for immunization Z23 ; Type 2 diabetes mellitus with unspecified complications E11.8 and Essential hypertension I10 [facility] [facility] [address] 69228- 9184 Jun, [facility] [address] 03172- 8678 May, Hypothyroidism (acquired) E03.9 [facility] [id number] [place] [address] 78674- 9747 May, Dysuria R30.0 ; Essential hypertension I10 ; Hypothyroidism (acquired) E03.9 and PVD (peripheral vascular disease) I73.9 [facility] [id number] [place] [address] 21137 -9309 May, Burning with urination R30.0 and Acute cystitis with hematuria N30.01 [facility] [id number] [place] [address] 40227- 1881 May, Dental examination Z01.20 [facility] [address] 85418- 3704 May, Hypothyroidism (acquired) E03.9 [facility] [address] 38585- 5608 Feb, [facility] [address] 35596- 4019 Feb, 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 ; PVD ( peripheral vascular disease) I73.9 ; Type 2 diabetes mellitus with unspecified complications E11.8 and Essential hypertension I10 [facility] [id number] [place] [address] 13849- 3481 Jan, [facility] [id number] [place] [address] 13722- 0654 Jan, Hypothyroidism (acquired) E03.9 [facility] [id number] [place] [address] 96667- 3992 Jan, [facility] [id number] [place] [address] 84203- 7540 Jan, [facility] [id number] [place] [address] 52468- 6745 Jan, Type 2 diabetes mellitus with unspecified complications E11.8 ; 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 and Essential ( primary) hypertension I10 [facility] [id number] [place] [address] 15390- 9701 Jan, Type 2 diabetes mellitus with unspecified complications E11.8 ; 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 ; Essential hypertension I10 and PVD (peripheral vascular disease) I73.9 [facility] [id number] [place] [address] 80145- 6217 Jan, [facility] [id number] [place] [address] 11993- 6904 Jan, [facility] [facility] [address] 21894- 1623 Jan, [facility] [id number] [place] [address] 23881- 2231 Jan, Weakness R53.1 ; Fatigue, unspecified type R53.83 ; PVD ( peripheral vascular disease) I73.9 ; Acute osteomyelitis of other site M86.18 ; Type 2 diabetes mellitus with diabetic neuropathy, unspecified E11.40 and 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 [facility] [facility] [address] 74115- 9163 Dec, [facility] [id number] [place] [address] 97261- 3025 Dec, Type 2 diabetes mellitus with unspecified complications E11.8 [facility] [id number] [place] [address] 95157- 7295 Dec, [facility] [id number] [place] [address] 08337- 2681 Dec, Pressure ulcer, unspecified pressure ulcer stage L89.90 and Type 2 diabetes mellitus with unspecified complications E11.8 [facility] [id number] [place] [address] 01342 -4189 Dec, Toe infection L08.9 [place] [address] 32259- 3883 November, Dental caries K02.9 [facility] [id number] [place] [address] 63967- 7940 November, [facility] [id number] [place] [address] 99162- 1723 November, Dental examination Z01.20 [facility] [id number] [place] [address] 61938- 6781 Sep, Lipoma of torso D17.1 and Thoracic neuritis M54.14 [facility] [id number] [place] [address] 88200- 1682 Sep, [facility] [id number] [place] [address] 25961- 6101 Aug, [facility] [id number] [place] [address] 21623 -3998 Jul, Dysuria R30.0 and UTI (urinary tract infection) N39.0 [facility] [id number] [place] [address] 01807- 6770 Jun, Left shoulder pain M25.512 [place] [id number] [place] [address] 55247- 4212 May, Shoulder pain, left M25.512 [facility] [id number] [place] [address] 05220- 3870 May, [facility] [id number] [place] [address] 99155- 4420 May, [facility] [id number] [place] [address] 44394- 1359 May, Left shoulder pain M25.512 [facility] [id number] [place] [address] 81640- 7118 May, [facility] [id number] [place] [address] 61477- 7361 Apr, Encounter for immunization Z23 [facility] [id number] [place] [address] 67964- 5054 Apr, Urinary tract infection, site not specified N39.0 ; Hypotension, unspecified I95.9 ; Type 2 diabetes mellitus with unspecified complications E11.8 and Generalized edema R60.1 [facility] [id number] [place] [address] 99683- 1931 Apr, [facility] [id number] [place] [address] 59073- 9584 Mar, Diabetes with other specified manifestations, type II or unspecified type, not stated as uncontrolled 250.80 [place] [address] 07367- 0723 Feb, Gout 274.9 and Diabetes 250.00 [facility] [id number] [place] [address] 67833- 8903 Jan, [facility] [id number] [place] [address] 60684- 0963 November, CAD (coronary artery disease) 414.00 and CHF (congestive heart failure) 428.0 [facility] [id number] [place] [address] 20421- 7071 Oct, [facility] [id number] [place] [address] 83019- 0475 Oct, [facility] [id number] [place] [address] 31117- 6216 Oct, [facility] [id number] [place] [address] 89223- 9337 Sep, [facility] [id number] [place] [address] 37823- 4252 Sep, [facility] [id number] [place] [address] 32012- 0660 Sep, [facility] [id number] [place] [address] 72762- 3595 Sep, [facility] [place] [facility] [address] [id number] [place] [address]- 0144 Aug, [facility] [place] [facility] [address] [facility] [id number] [place] [address] Aug, [facility] [place] [facility] [address] [facility] [id number] [place] [address] Aug, [facility] [place] [facility] [address] [id number] [place] [address] Aug, 2014 [facility] [place] [facility] [address] [id number] [place] [address] Aug, 2014 [facility] [place] [facility] [address] [facility] [id number] [place] [address] Aug, [facility] [place] [facility] [address] [facility] [id number] [place] [address] Aug, [facility] [place] [facility] [address] [facility] [id number] [place] [address] Aug, [facility] [place] [facility] [address] [facility] [id number] [place] [address] Jul, [facility] [place] [facility] [address] [facility] [id number] [place] [address] Jul, [facility] [place] [facility] [address] [facility] [id number] [place] [address] Jul, [facility] [place] [facility] [address] [facility] [id number] [address] Jul, [facility] [place] [facility] [address] [facility] [id number] [place] [address] Jul, [facility] [place] [facility] [address] [facility] [id number] [place] [address] Jul, [facility] [place] [facility] [address] [facility] [id number], [place] [address] Jul, [facility] [place] [facility] [address] [id number] [place] [address] 2542 Jul, [facility] [place] [facility] [address] [id number] [place] [address] 1070 Jul, [facility] [place] [facility] [address] [id number] [place] [address] 7756 Jul, [facility] [place] [facility] [address] [id number] [place] [address] 3325 Jun, [facility] [place] [facility] [address] [id number] [place] [address]- 5929 Jun, [facility] [place] [facility] [address] [id number] [place] [address]- 1010 Jun, [facility] [place] [facility] [address] [id number] [place] [address]- 2750 Jun, [facility] [place] [facility] [address] [id number] [place] [address]- 3370 Jun, [facility] [place] [facility] [address] [id number] [place] [address] Jun, [facility] [place] [facility] [address] [id number] [place] [address] 7108 Jun, [facility] [place] [facility] [address] [id number] [place] [address]- 6782 Jun, [facility] [place] [facility] [address] [id number] [place] [address]- 8583 Jun, [facility] [place] [facility] [address] [id number] [place] [address]- 7009 Jun, [facility] [place] [facility] [address] [id number] [place] [address]- 4062 May, [facility] [place] [facility] [address] [id number] [place] [address]- 6906 May, [facility] [place] [facility] [address] [id number] [place] [address]- 2233 Mar, [facility] [place] [facility] [address] [id number] [place] [address]- 0925 Mar, [facility] [place] [facility] [address] [id number] [place] [address]- 9955 Mar, [facility] [place] [facility] [address] [id number] [place] [address]- 6747 Mar, [facility] [place] [facility] [address] [id number] [place] [address]- 6707 Feb, [facility] [place] [facility] [address] [id number] [place] [address]- 6314 Feb, [facility] [place] [facility] [address] [id number] [place] [address]- 4229 Feb, [facility] [place] [facility] [address] [id number] [place] [address]- 2999 Jan, [facility] [place] [facility] [address] [id number] [place] [address]- 5063 Jan, [facility] [place] [facility] [address] [id number] [place] [address]- 6776 Jan, [facility] [place] [facility] [address] [id number] [place] [address]- 9626 Jan, [facility] [place] [facility] [address] [id number] [place] [address]- 8150 Jan, [facility] [place] [facility] [address] [id number] [place] [address]- 6102 Jan, [facility] [place] [facility] [address] [id number] [place] [address]- 5361 Jan, [facility] [place] [facility] [address] [id number] [place] [address]- 0658 Jan, [facility] [place] [facility] [address] [id number] [place] [address]- 5506 Jan, [facility] [place] [facility] [address] [id number] [place] [address]- 9876 Jan, [facility] [place] [facility] [address] [id number] [place] [address]- 7297 Dec, [facility] [place] [facility] [address] [id number] [place] [address]- 2355 Dec, [facility] [place] [facility] [address] [id number] [place] [address]- 4610 November, [facility] [place] [facility] [address] [id number] [place] [address]- 1421 November, [facility] [place] [facility] [address] [id number] [place] [address] November, [facility] [place] [facility] [address] [id number] [place] [address]- 2558 November, [facility] [place] [facility] [address] [id number] [place] [address]- 8827 November, [facility] [place] [facility] [address] [id number] [place] [address]- 7294 November, [facility] [place] [facility] [address] [id number] [place] [address]- 7817 November, [facility] [place] [facility] [address] [id number] [place] [address]- 7243 Oct, [facility] [place] [facility] [address] [id number] [place] [address]- 3684 Oct, [facility] [place] [facility] [address] [id number] [place] [address]- 4248 Sep, [facility] [place] [facility] [address] [id number] [place] [address]- 2691 Sep, [facility] [place] [facility] [address] [id number] [place] [address]- 1810 Sep, [facility] [place] [facility] [address] [id number] [place] [address]- 0431 Sep, [facility] [place] [facility] [address] [id number] [place] [address]- 3037 Sep, [facility] [place] [facility] [address] [id number] [place] [address]- 9214 Sep, [facility] [place] [facility] [address] [id number] [place] [address]- 3734 Sep, [facility] [place] [facility] [address] [id number] [place] [address]- 5188 Sep, [facility] [place] [facility] [address] [id number] [place] [address]- 5254 Sep, [facility] [place] [facility] [address] [id number] [place] [address]- 6288 Sep, [facility] [place] [facility] [address] [id number] [place] [address]- 4548 Aug, [facility] [place] [facility] [address] [id number] [place] [address]- 4907 Aug, [facility] [place] [facility] [address] [id number] [place] [address]- 4160 Jul, [facility] [place] [facility] [address] [id number] [place] [address]- 0855 Jul, [facility] [place] [facility] [address] [id number] [place] [address]- 2754 Jul, [facility] [place] [facility] [address] [id number] [place] [address]- 2055 Jul, [facility] [place] [facility] [address] [id number] [place] [address]- 8214 Jul, [facility] [place] [facility] [address] [id number] [place] [address]- 5763 Jul, [facility] [place] [facility] [address] [id number] [place] [address]- 2407 Jun, [facility] [place] [facility] [address] [id number], [place] [address]- 0095 Jun, [facility] [place] [facility] [address] [id number] [place] [address]- 3853 Jun, [facility] [place] [facility] [address] [id number] [place] [address]- 8956 Jun, [facility] [place] [facility] [address] [id number] [place] [address]- 2147 May, [facility] [place] [facility] [address] [id number] [place] [address]- 3269 14 May, 2013 [facility] [place] [facility] [address] [id number] [place] [address]- 7272 May, [facility] [place] [facility] [address] [id number] [place] [address]- 8323 May, [facility] [place] [facility] [address] [id number] [place] [address]- 7023 May, [facility] [place] [facility] [address] [id number] [place] [address]- 0514 Apr, [facility] [place] [facility] [address] [id number] [place] [address]- 9461 31 Apr, 2013 [facility] [place] [facility] [address] [id number] [place] [address]- 0425 Apr, [facility] [place] [facility] [address] [id number], [place] [address]- 7208 Apr, [facility] [place] [facility] [address] [id number], [place] [address]- 2573 Apr, [facility] [place] [facility] [address] [id number] [place] [address]- 1818 28 Apr, 2013 [facility] [place] [facility] [address] [id number] [place] [address]- 7916 Apr, [facility] [place] [facility] [address] [id number] [place] [address]- 7003 Apr, [facility] [place] [facility] [address] [id number] [place] [address]- 4998 Apr, [facility] [place] [facility] [address] [id number] [place] [address]- 6654 Apr, [facility] [place] [facility] [address] [id number] [place] [address]- 9496 Apr, [facility] [place] [facility] [address] [id number] [place] [address]- 3951 Apr, [facility] [place] [facility] [address] [id number] [place] [address]- 0262 Mar, [facility] [place] [facility] [address] [id number] [place] [address]- 6607 Mar, [facility] [place] [facility] [address] [id number] [place] [address]- 7943 Feb, [facility] [place] [facility] [address] [id number] [place] [address]- 7242 Jan, [facility] [place] [facility] [address] [id number] [place] [address]- 1815 Jan, [facility] [place] [facility] [address] [id number] [place] [address]- 6997 Jan, [facility] [place] [facility] [address] [id number] [place] [address]- 8885 Jan, [facility] [place] [facility] [address] [id number] [place] [address]- 9342 Dec, [facility] [place] [facility] [address] [id number] [place] [address]- 7968 Dec, [facility] [place] [facility] [address] [id number] [place] [address]- 5040 Dec, [facility] [place] [facility] [address] [id number] [place] [address]- 2546 Dec, [facility] [place] [facility] [address] [id number] [place] [address]- 5052 Dec, [facility] [address] [id number] [place] [address]- 8558 Dec, [facility] [address] [id number] [place] [address]- 9337 Dec, [facility] [address] [id number] [place] [address]- 4307 November, [facility] [address] [id number] [place] [address]- 7022 November, [facility] [address] [id number] [place] [address]- 1778 November, [facility] [address] [id number] [place] [address]- 7006 Oct, [facility] [address] [id number] [place] [address]- 9161 Oct, [facility] [address] [id number] [place] [address]- 4610 Oct, [facility] [address] [id number] [place] [address]- 8892 Oct, [facility] [address] [id number] [place] [address]- 2902 Oct, [facility] [place] [facility] [address] [id number] [place] [address]- 0762 Sep, [facility] [place] [facility] [address] [id number], [place] [address]- 4789 Sep, [facility] [place] [facility] [address] [id number] [place] [address]- 8601 Sep, [facility] [place] [facility] [address] [id number] [place] [address]- 0087 Sep, [facility] [place] [facility] [address] [id number] [place] [address]- 3016 Aug, [facility] [place] [facility] [address] [id number] [place] [address]- 3762 05 Aug, 2012 [facility] [address] [id number] [place] [address]- 1846 Aug, 2012 [facility] [place] [facility] [address] [id number] [place] [address]- 3666 Aug, [facility] [address] [id number] [place] [address]- 3353 Jul, [facility] [place] [facility] [address] [id number] [place] [address]- 2299 Jul, [facility] [address] [id number] [place] [address]- 3807 Jun, [facility] [address] [id number] [place] [address]- 9188 Jun, [facility] [id number] [place] [address]- 5907 Jun, [facility] [address] [facility] [id number] [place] [address]- 2807 Jun, [facility] [address] [id number] [place] [address]- 6943 May, [facility] [address] [facility] [id number] [place] [address]- 3547 May, [facility] [place] [facility] [address] [facility] [id number] [place] [address]- 7692 May, [facility] [place] [facility] [address] [facility] [id number] [place] [address]- 4737 May, [facility] [place] [facility] [address] [facility] [id number] [place] [address]- 6502 Apr, [facility] [place] [facility] [address] [facility] [id number] [place] [address]- 2121 Apr, [facility] [place] [facility] [address] [facility] [id number] [place] [address]- 2923 Apr, [facility] [place] [facility] [address] [id number] [place] [address]- 6034 Apr, [facility] [place] [facility] [address] [id number] [place] [address]- 8290 Apr, [facility] [place] [facility] [address] [id number] [place] [address]- 1062 Apr, [facility] [place] [facility] [address] [id number] [place] [address]- 4676 Apr, [facility] [place] [facility] [address] [id number] [place] [address]- 8434 Apr, [facility] [place] [facility] [address] [id number] [place] [address]- 4244 Apr, [facility] [place] [facility] [address] [id number] [place] [address]- 1616 Apr, [facility] [place] [facility] [address] [id number] [place] [address]- 2381 Feb, [facility] [place] [facility] [address] [id number] [place] [address]- 5424 Feb, [facility] [place] [facility] [address] [id number] [place] [address]- 6326 Jan, [facility] [place] [facility] [address] [id number] [place] [address]- 9790 Jan, [facility] [place] [facility] [address] [id number], [place] [address]- 9437 Jan, [facility] [place] [facility] [address] [id number] [place] [address]- 7843 Jan, [facility] [place] [facility] [address] [id number] [place] [address]- 8901 Jan, [facility] [place] [facility] [address] [id number] [place] [address]- 3962 Jan, [facility] [place] [facility] [address] [id number], [place] [address]- 2832 Dec, [facility] [address] [id number] [place] [address]- 8463 November, [facility] [place] [facility] [address] [id number] [place] [address]- 5696 November, [facility] [address] [id number] [place] [address]- 4087 November, [facility] [place] [facility] [address] [id number] [place] [address]- 7167 Sep, [facility] [address] [id number] [place] [address]- 2323 Sep, [facility] [address] [id number] [place] [address]- 5581 Sep, [facility] [address] [facility] [id number] [place] [address]- 2479 Sep, [facility] [place] [facility] [address] [id number] [place] [address]- 0570 Sep, [facility] [address] [id number] [place] [address]- 6871 Sep, [facility] [place] [facility] [address] [facility] [id number] [place] [address]- 1537 13 Aug, 2011 [facility] [place] [facility] [address] [id number] [place] [address]- 3263 Aug, [facility] [place] [facility] [address] [id number] [place] [address]- 1953 Aug, [facility] [place] [facility] [address] [id number] [place] [address]- 8254 Jul, [facility] [place] [facility] [address] [id number] [place] [address]- 2564 Jul, [facility] [place] [facility] [address] [facility] [id number] [place] [address]- 5929 Jul, [facility] [place] [facility] [address] [id number] [place] [address]- 5699 Jul, [facility] [place] [facility] [address] [id number] [place] [address]- 7196 Jun, [facility] [place] [facility] [address] [id number] [place] [address]- 4916 Jun, [facility] [place] [facility] [address] [id number] [place] [address]- 8476 Jun, [facility] [place] [facility] [address] [id number] [place] [address]- 0594 Jun, [facility] [place] [facility] [address] [id number] [place] [address]- 7181 Jun, [facility] [place] [facility] [address] [id number] [place] [address]- 4026 Jun, [facility] [place] [facility] [address] [id number] [place] [address]- 0698 May, [facility] [place] [facility] [address] [id number] [place] [address]- 9800 May, [facility] [place] [facility] [address] [id number] [place] [address]- 7358 May, [facility] [place] [facility] [address] [id number] [place] [address]- 4136 Apr, [facility] [place] [facility] [address] [id number] [place] [address]- 0198 Jan, [facility] [place] [facility] [address] [id number] [place] [address]- 8228 Jun, [facility] [place] [facility] [address] [id number] [place] [address]- 2546 Jun, [facility] [place] [facility] [address] [id number] [place] [address] 2546 15 Jun, 2010 [facility] [place] [facility] [address] [id number] [place] [address]- 3216 15 Jun, 2010 [facility] [address] [id number] [place] [address]- 1896 15 Jun, 2010 [facility] [place] [facility] [address] [id number] [place] [address]- 4586 13 Jun, 2010 [facility] [address] [facility] [id number] [place] [address]- 140[address] 13 Jun, 2010 [facility] [place] [facility] [address] [id number] [place] [address] Apr, [facility] [address] [id number] [place] [address] 17 Feb, 2010 [facility] [address] [id number] [place] [address] 15 Aug, 2009 [facility] [address] [id number] [place] [address] 18 Jul, 2009 [facility] [place] [facility] [address] [id number], [place] [address] 11 Jul, 2009 [facility] [address] [id number] [place] [address] 29 Jun, 2009 [facility] [place] [facility] [address] [id number] [place] [address] 28 Jun, 2009 [facility] [place] [facility] [address] [id number], [place] [address] 28 Jun, 2009 [facility] [place] [facility] [address] [id number], [place] [address] 22 Jun, 2009 [facility] [place] [facility] [address] [id number] [place] [address]46 16 Jun, 2009 [facility] [place] [facility] [address] [facility] [id number], [place] [address] 09 Jun, 2009 [facility] [place] [facility] [address] [facility] [id number], [place] [address] Jun, [facility] [place] [facility] [id number] [address] 30 May, 2009 [facility] [id number] [address] May, [facility] [id number] [address] May, [facility] [id number] [address] May, [facility] [id number] [address] May, [facility] [id number] [place] [address] May, [facility] [id number] [address] May, [facility] [id number] [place] [address] Apr, [facility] [id number] [address] Apr, [facility] [id number] [place] [address] Jan, [facility] [id number] [place] [address] Oct, IMMUNIZATIONS No Known Immunizations SOCIAL HISTORY Never Assessed REASON FOR VISIT [facility] [place] PLAN OF CARE VITAL SIGNS MEDICATIONS Unknown [...]
--- OUTSIDE RECORDS SUMMARY | 2018-11-09 12:40 | XMS REPORT ---
Author Author PRABHA HILL [facility] Address [address] [place] [address] Care Team Providers Care Delinquent Notice Machine Operator Name Role Phone PRABHA HILL Unavailable PROBLEMS Type Condition ICD9-CM Code MRE84-DP Code Onset Dates Condition Status SNOMED Code Problem Hypoglycemia E16.2 Active 605162870 Problem Hallucinations R44.3 Active 3035518 Problem Unsteady gait R26.81 Active 73301751 Problem 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 Active 038468656797960 Problem Dysuria R30.0 Active 74468751 Problem Anxiety F41.9 Active 96377662 Problem Dementia in other diseases classified elsewhere without behavioral disturbance F02.80 Active 135131289 Problem Other frontotemporal dementia G31.09 Active 705751718 Problem Parkinsons disease G20 Active 43166000 Problem Episodic cluster headache, not intractable G44.019 Active 229293776 Problem Neurogenic orthostatic hypotension G90.3 Active 834830021 Problem Mixed stress and urge urinary incontinence N39.46 Active 107811409 Problem 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 Active 875074492 Problem Essential hypertension I10 Active 15328711 Problem Type 2 diabetes mellitus with unspecified complications E11.8 Active 44709706 Problem PVD (peripheral vascular disease) I73.9 Active 789615882 Problem Dysthymia F34.1 Active 19541959 Problem Polydipsia R63.1 Active 21184656 Problem Coronary artery disease involving [place] coronary artery of [place] heart without angina pectoris I25.10 Active 8289441264183 Problem Hypothyroidism (acquired) E03.9 Active 449024592 Problem Hyperlipemia, mixed E78.2 Active 792801870 Problem Dementia with Lewy bodies G31.83 Active 348357637 Problem Neuropathy G62.9 Active 799223671 Problem Hypernatremia E87.0 Active 16876325 ALLERGIES Substance Reaction Event Type Date Status Sulfamethoxazole-Trimethoprim Unknown Drug Allergy Jun, Active Protamine Sulfate Unknown Drug Allergy Jun, Active Penicillin V Potassium Unknown Drug Allergy Jun, Active Cipro lowers blood sugar Drug Allergy Jun, Active ENCOUNTERS Encounter Location Date Diagnosis [place] [id number] [place] [address] 28421- 7365 Jun, Type 2 diabetes mellitus with unspecified complications E11.8 [place] [address] 73322- 5116 May, Left shoulder pain M25.512 [place] [id number] [place] [address] 51267- 3395 May, Left shoulder pain M25.512 [place] [address] 16371- 6172 May, Parkinsons disease G20 [place] [id number] [place] [address] 79449- 6828 Apr, Dysuria R30.0 and Hypothyroidism (acquired) E03.9 [place] [id number] [place] [address] 17023- 9956 Apr, Dysuria R30.0 and Increased urinary frequency R35.0 [place] [id number] [place] [address] 21051- 6062 Apr, [facility] [id number] [place] [address] 79660- 1669 Apr, Parkinsons disease G20 and Hypothyroidism (acquired) E03.9 [facility] [id number] [place] [address] 20794- 2085 29 Apr, 2018 [facility] [id number] [place] [address] 03052 -5527 05 Apr, 2018 Dysuria R30.0 and Cystitis N30.90 [facility] [id number] [place] [address] 09993- 1741 28 Mar, 2018 Left shoulder pain M25.512 [place] [address] [place] [address] [place] [address] 2009 Mar, [facility] [id number] [place] [address] 05119- 0071 Mar, Hyperlipemia, mixed E78.2 ; Essential hypertension I10 and Coronary artery disease involving [place] coronary artery of [place] heart without angina pectoris I25.10 [place] [id number] [place] [address] 61607- 2144 26 Mar, 2018 Type 2 diabetes mellitus with unspecified complications E11.8 [place] [id number] [place] [address] 77546- 9420 17 Mar, 2018 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 [place] [id number] [place] [address] 27909- 6392 Mar, [place] [id number] [place] [address] 99859- 9392 Mar, [place] [id number] [place] [address] 22017- 6792 Mar, [facility] [id number] [place] [address] 50116- 4118 Mar, [place] [id number] [place] [address] 48864- 5116 Mar, Cellulitis of left lower extremity L03.116 and Petechial rash R23.3 [place] [id number] [place] [address] 17239- 5730 Feb, Left shoulder pain M25.512 [place] [id number] [place] [address] 76487- 5053 Feb, Left shoulder pain M25.512 [place] [id number] [place] [address] 20530- 3357 Feb, 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 [place] [id number] [place] [address] 39541- 8037 Jan, Left shoulder pain M25.512 [facility] [id number] [place] [address] 26899- 1448 Dec, Parkinsons disease G20 [facility] [id number] [place] [address] 17392- 7813 Dec, Left shoulder pain M25.512 [facility] [id number] [place] [address] 23834- 8037 Dec, Type 2 diabetes mellitus with unspecified complications E11.8 ; Anxiety F41.9 ; Therapeutic drug monitoring Z51.81 and Analgesic use Z79.899 [facility] [id number] [place] [address] 35991- 0409 November, [facility] [id number] [place] [address] 41333- 1558 November, [facility] [address] 98728- 5505 November, Left shoulder pain M25.512 [facility] [id number] [place] [address] 45865- 0310 Oct, [facility] [id number] [place] [address] 09108 -5033 Oct, [facility] [id number] [place] [address] 00089- 2117 Oct, Parkinsons disease G20 [facility] [id number] [place] [address] 28704 -2901 Oct, Acute cystitis without hematuria N30.00 and Viral upper respiratory tract infection J06.9 [facility] [id number] [place] [address] 35167- 1961 Oct, [facility] [id number] [place] [address] 84278- 4717 Oct, Type 2 diabetes mellitus with unspecified complications E11.8 [facility] [id number] [place] [address] 72743- 8390 Oct, Left shoulder pain M25.512 [place] [id number] [place] [address] 06471- 3796 Oct, Type 2 diabetes mellitus with unspecified complications E11.8 ; Dysuria R30.0 and Neurogenic orthostatic hypotension G90.3 [place] [id number] [place] [address] 40673- 9861 Sep, Left shoulder pain M25.512 [place] [id number] [place] [address] 95596- 2252 12 Sep, 2017 Medicare annual wellness visit, initial Z00.00 ; Parkinsons disease G20 ; Type 2 diabetes mellitus with unspecified complications E11.8 ; Essential hypertension I10 ; Coronary artery disease involving [place] coronary artery of sk[place] heart without angina pectoris I25.10 ; Hypothyroidism (acquired ) E03.9 ; PVD (peripheral vascular disease) I73.9 ; Dysthymia F34.1 ; Hyperlipemia, mixed E78.2 ; Neuropathy G62.9 ; Encounter for immunization Z23 ; Encounter for other screening for malignant neoplasm of breast Z12.39 and Mixed stress and urge urinary incontinence N39.46 [place] [address] 81344- 4757 Aug, Parkinsons disease G20 [place] [id number] [place] [address] 39975- 4227 Aug, Type 2 diabetes mellitus with unspecified complications E11.8 ; Left shoulder pain M25.512 and Hypotensive episode I95.9 [place] [id number] [place] [address] 58527- 2633 09 Aug, 2017 Coronary artery disease involving [place] coronary artery of sk[place] heart without angina pectoris I25.10 [place] [id number] [place] [address] 94589- 7642 07 Aug, 2017 Type 2 diabetes mellitus with unspecified complications E11.8 [place] [id number] [place] [address] 88646- 6739 Jul, Callus of foot L84 [place] [id number] [place] [address] 56458- 5212 Jul, [place] [id number] [place] [address] 32332- 4927 Jul, Callus of foot L84 ; Episodic cluster headache, not intractable G44.019 ; Type 2 diabetes mellitus with unspecified complications E11.8 and Parkinsons disease G20 [place] [id number] [place] [address] 32214- 1742 Jul, [place] [id number] [place] [address] 56827- 3847 Jul, [place] [id number] [place] [address] 28970- 3099 Jun, Type 2 diabetes mellitus with unspecified complications E11.8 ; Unsteady gait R26.81 ; Forgetfulness R68.89 and Hallucinations R44.3 [place] [id number] [place] [address] 33980- 2368 Jun, [place] [id number] [place] [address] 64331- 7908 Jun, Left shoulder pain M25.512 [place] [id number] [place] [address] 98083- 2889 May, Hypernatremia E87.0 and Polydipsia R63.1 [place] [id number] [place] [address] 58118- 7407 08 May, 2017 Hypernatremia E87.0 and Polydipsia R63.1 [place] [id number] [place] [address] 40440- 6577 May, Hypoglycemia E16.2 ; Dysuria R30.0 ; Unsteadiness on feet R26.81 ; Forgetfulness R68.89 ; Type 2 diabetes mellitus with unspecified complications E11.8 and Yeast infection involving the vagina and surrounding area B37.3 [place] [id number] [place] [address] 30939- 6530 May, Acute cystitis without hematuria N30.00 [facility] [address] 93441 -3084 28 Apr, 2017 Dysuria R30.0 and Acute cystitis without hematuria N30.00 [facility] [address] 55085- 7287 05 Apr, 2017 Hypernatremia E87.0 and Polydipsia R63.1 [place] [address] 03276- 6715 Apr, Vertigo R42 and Type 2 diabetes mellitus with unspecified complications E11.8 [place] [address] 78368- 5823 20 Mar, 2017 [place] [address] 06687- 7148 19 Mar, 2017 Left shoulder pain M25.512 [place] [address] 00799- 2617 13 Mar, 2017 Vertigo R42 [place] [address] 42212- 8438 12 Mar, 2017 Polydipsia R63.1 [place] [address] 13913- 6569 Mar, Polydipsia R63.1 [place] [address] 39947- 4278 Mar, Vertigo R42 [place] [address] 47368- 9270 07 Mar, 2017 Type 2 diabetes mellitus with unspecified complications E11.8 ; Vertigo R42 ; Polydipsia R63.1 ; Polyuria R35.8 ; Hypothyroidism ( acquired) E03.9 ; Abnormal urinalysis R82.90 and Dysthymia F34.1 [place] [address] 89280- 6488 Mar, Coronary artery disease of skag[place] artery with stable angina pectoris, unspecified whether skagway or transplanted heart I25.118 ; Systolic CHF, chronic I50.22 ; Hyperlipemia, mixed E78.2 and Essential hypertension I10 [facility] [id number] [place] [address] [id number] Feb, Dental caries K02.9 [facility] [id number] [place] [address] 87742- 5822 Feb, Type 2 diabetes mellitus with diabetic neuropathy, unspecified E11.40 [facility] [id number] [place] [address] 25306- 9915 Dec, Left shoulder pain M25.512 [facility] [id number] [place] [address] 47122- 2630 Dec, [facility] [address] 83800- 0745 Dec, Type 2 diabetes mellitus with unspecified complications E11.8 [facility] [id number] [place] [address] [id number] Dec, Dental examination Z01.20 [facility] [id number] [place] [address] 61896- 0579 08 Dec, 2016 Type 2 diabetes mellitus with diabetic neuropathy, unspecified E11.40 [facility] [id number] [place] [address] 33010- 1879 Dec, [facility] [id number] [place] [address] 37197- 1881 Dec, Type 2 diabetes mellitus with diabetic neuropathy, unspecified E11.40 [facility] [id number] [place] [address] 78401- 6623 November, Left shoulder pain M25.512 [facility] [id number] [place] [address] 32982- 6282 November, [facility] [address] [place] [address]- 1818 November, Type 2 diabetes mellitus with unspecified complications E11.8 and Dysuria R30.0 [place] [address] 01038- 0251 Oct, Left shoulder pain M25.512 [place] [id number] [place] [address] 18372- 2748 Sep, Left shoulder pain M25.512 [place] [address] 54720- 4333 Sep, Pre-op testing Z01.818 [place] [address] 03113- 7660 Sep, Pre-op testing Z01.818 [place] [id number] [place] [address] 22049- 2616 Sep, Pre-op testing Z01.818 [place] [address] 14171- 4522 Sep, Pre-op testing Z01.818 and Mouth pain K13.79 [place] [address] 56033- 6441 Sep, Left shoulder pain M25.512 [place] [id number] [place] [address] 48481- 6521 Aug, Other eczema L30.8 [place] [address] 52004- 6884 06 Aug, 2016 PVD (peripheral vascular disease) I73.9 ; Type 2 diabetes mellitus with unspecified complications E11.8 ; Acute cystitis with hematuria N30.01 ; Other eczema L30.8 ; Dysuria R30.0 and Left shoulder pain M25.512 [facility] [address] [place] [address] 60883 -1152 Jul, Otalgia of right ear H92.01 and Blood in ear canal, right H92.21 [facility] [id number] [place] [address] 97270- 7356 Jul, Arthralgia, unspecified joint M25.50 ; PVD (peripheral vascular disease) I73.9 and Neuropathy G62.9 [place] [id number] [place] [address] 21668- 6090 Jul, [place] [address] 13964- 1961 Jun, Medicare annual wellness visit, initial Z00.00 ; Cervicalgia M54.2 ; Radiculopathy of cervical region M54.12 ; Encounter for immunization Z23 ; Type 2 diabetes mellitus with unspecified complications E11.8 and Essential hypertension I10 [place] [id number] [place] [address] 01800- 3175 Jun, [place] [address] 42162- 0329 May, Hypothyroidism (acquired) E03.9 [place] [address] 30211- 1497 May, Dysuria R30.0 ; Essential hypertension I10 ; Hypothyroidism (acquired) E03.9 and PVD (peripheral vascular disease) I73.9 [facility] [id number] [place] [address] 90964 -6974 May, Burning with urination R30.0 and Acute cystitis with hematuria N30.01 [place] [id number] [place] [address] 74139- 5265 May, Dental examination Z01.20 [place] [address] 86067- 5840 May, Hypothyroidism (acquired) E03.9 [place] [id number] [place] [address] 77599- 8933 Feb, [place] [address] 91058- 3868 Feb, 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 ; PVD ( peripheral vascular disease) I73.9 ; Type 2 diabetes mellitus with unspecified complications E11.8 and Essential hypertension I10 [facility] [address] [address]- 2545 Jan, [facility] [id number] [place] [address] 56852- 9087 Jan, Hypothyroidism (acquired) E03.9 [facility] [address] [place] [address] 41696- 2425 Jan, [place] [id number] [place] [address] 21532- 7614 Jan, [place] [address] [address]- 8832 Jan, Type 2 diabetes mellitus with unspecified complications E11.8 ; 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 and Essential ( primary) hypertension I10 [facility] [address] [address]- 6574 Jan, Type 2 diabetes mellitus with unspecified complications E11.8 ; 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 ; Essential hypertension I10 and PVD (peripheral vascular disease) I73.9 [facility] [address] [address]- 9796 Jan, [facility] [address] [address]- 2545 Jan, [place] [address] [address]- 4687 Jan, [place] [address] [place] [address] 46024- 9371 Jan, Weakness R53.1 ; Fatigue, unspecified type R53.83 ; PVD ( peripheral vascular disease) I73.9 ; Acute osteomyelitis of other site M86.18 ; Type 2 diabetes mellitus with diabetic neuropathy, unspecified E11.40 and skilled nursing 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.4 [place] [address] [address]- 1081 30 Dec, 2015 [place] [id number] [place] [address] 02600- 1373 Dec, Type 2 diabetes mellitus with unspecified complications E11.8 [place] [id number] [place] [address] 98754- 1879 Dec, [place] [id number] [place] [address] 90559- 2433 Dec, Pressure ulcer, unspecified pressure ulcer stage L89.90 and Type 2 diabetes mellitus with unspecified complications E11.8 [facility] [place] [address] [address] -2631 Dec, Toe infection L08.9 [place] [id number] [place] [address] 25605- 1359 November, Dental caries K02.9 [place] [id number] [place] [address] 42190- 8450 November, [place] [id number] [place] [address] 08194- 6782 November, Dental examination Z01.20 [place] [address] [place] [address] 53493- 4871 Sep, Lipoma of torso D17.1 and Thoracic neuritis M54.14 [place] [address] [place] [address] 35897- 8129 Sep, [place] [id number] [place] [address] 44633- 9719 Aug, [facility] [address] [address] -5180 Jul, Dysuria R30.0 and UTI (urinary tract infection) N39.0 [place] [id number] [place] [address] 85971- 1547 Jun, Left shoulder pain M25.512 [facility] [address] 14463- 9949 May, Shoulder pain, left M25.512 [facility] [id number] [place] [address] 06898- 1999 May, [facility] [address] 45775- 2626 May, [facility] [address] 56934- 3614 May, Left shoulder pain M25.512 [place] [address] 87925- 7588 May, [place] [address] 46125- 6353 Apr, Encounter for immunization Z23 [place] [id number] [place] [address] 61413- 2462 Apr, Urinary tract infection, site not specified N39.0 ; Hypotension, unspecified I95.9 ; Type 2 diabetes mellitus with unspecified complications E11.8 and Generalized edema R60.1 [place] [id number] [place] [address] 45128- 4520 Apr, [place] [id number] [place] [address] 57435- 7558 Mar, Diabetes with other specified manifestations, type II or unspecified type, not stated as uncontrolled 250.80 [place] [address] 51933- 5214 Feb, Gout 274.9 and Diabetes 250.00 [place] [id number] [place] [address] 29691- 7405 Jan, [place] [address] 62303- 4740 November, CAD (coronary artery disease) 414.00 and CHF (congestive heart failure) 428.0 [facility] [address] [address]- 7388 Oct, [facility] [id number] [place] [address]- 9034 Oct, [facility] [address], [place] [address]- 2590 Oct, [facility] [address] [facility] [id number] [place] [address]- 4075 Sep, [facility] [address] [place] [address], [place] [address]- 6785 Sep, [facility] [id number] [place] [address]- 6818 Sep, [facility] [id number] [place] [address] 46455- 5603 Sep, [facility] [address] [address]- 3505 Aug, [facility] [id number] [place] [address]- 3603 Aug, [facility] [address] [address]- 2812 Aug, [facility] [address] [address]- 6278 Aug, [facility] [address], [place] [address]- 9291 Aug, [facility] [id number] [place] [address]- 2755 Aug, [facility] [id number] [address] Aug, [facility] [id number] [address] Aug, [facility] [place] [facility] [address] [id number] [place] [address] Jul, [facility] [place] [facility] [address] [id number] [place] [address] Jul, [facility] [place] [facility] [address] [facility] [id number] [place] [address] Jul, [facility] [place] [facility] [address] [id number] [place] [address] Jul, [facility] [place] [facility] [address] [id number] [place] [address] Jul, [facility] [place] [facility] [address] [id number] [place] [address] Jul, [facility] [place] [facility] [address] [facility] [id number] [place] [address] Jul, [facility] [place] [facility] [address] [id number], [place] [address] Jul, [facility] [place] [facility] [address] [id number] [place] [address] Jul, [facility] [place] [facility] [address] [facility] [id number] [place] [address] Jul, [facility] [place] [facility] [address] [id number], [place] [address] Jun, [facility] [place] [facility] [address] [id number], [place] [address] Jun, [facility] [place] [facility] [address] [id number] [place] [address] 69[address] Jun, [facility] [place] [facility] [address] [id number] [place] [address]- 2672 Jun, [facility] [place] [facility] [address] [facility] [id number], [place] [address] Jun, [facility] [place] [facility] [address] [id number] [place] [address] 9498 Jun, [facility] [place] [facility] [address] [id number] [place] [address]- 7456 Jun, [facility] [place] [facility] [address] [id number] [place] [address]- 4052 Jun, [facility] [place] [facility] [address] [id number] [place] [address]- 7093 Jun, [facility] [place] [facility] [address] [id number] [place] [address] 1560 Jun, [facility] [place] [facility] [address] [id number] [place] [address] May, [facility] [place] [facility] [address] [id number] [place] [address]- 4496 May, [facility] [place] [facility] [address] [id number] [place] [address]- 4822 Mar, [facility] [place] [facility] [address] [id number] [place] [address]- 0202 Mar, [facility] [place] [facility] [address] [id number] [place] [address]- 6291 Mar, [facility] [place] [facility] [address] [id number] [place] [address]- 7523 Mar, [facility] [place] [facility] [address] [id number] [place] [address]- 7765 Feb, [facility] [place] [facility] [address] [id number] [place] [address]- 0199 Feb, [facility] [place] [facility] [address] [id number] [place] [address]- 4733 Feb, [facility] [place] [facility] [address] [id number] [place] [address]- 8654 Jan, [facility] [place] [facility] [address] [id number] [place] [address]- 4368 Jan, [facility] [place] [facility] [address] [id number] [place] [address]- 8416 Jan, [facility] [place] [facility] [address] [id number] [place] [address]- 2343 Jan, [facility] [place] [facility] [address] [id number] [place] [address]- 7365 Jan, [facility] [place] [facility] [address] [id number] [place] [address]- 3692 Jan, [facility] [place] [facility] [address] [id number] [place] [address]- 7705 Jan, [facility] [place] [facility] [address] [id number] [place] [address]- 0391 Jan, [facility] [place] [facility] [address] [id number] [place] [address]- 0456 Jan, [facility] [place] [facility] [address] [id number] [place] [address]- 0071 Jan, [facility] [place] [facility] [address] [id number] [place] [address]- 6702 Dec, [facility] [place] [facility] [address] [id number] [place] [address]- 6456 Dec, [facility] [place] [facility] [address] [id number] [place] [address]- 5754 November, [facility] [place] [facility] [address] [id number] [place] [address]- 6885 November, [facility] [place] [facility] [address] [id number] [place] [address]- 1500 November, [facility] [place] [facility] [address] [id number] [place] [address]- 8526 November, [facility] [place] [facility] [address] [id number] [place] [address] 1154 November, [facility] [place] [facility] [address] [id number] [place] [address]- 7508 November, [facility] [place] [facility] [address] [id number] [place] [address]- 5319 November, [facility] [place] [facility] [address] [id number] [place] [address]- 0503 Oct, [facility] [place] [facility] [address] [id number] [place] [address]- 0908 Oct, [facility] [place] [facility] [address] [id number] [place] [address]- 7002 Sep, [facility] [place] [facility] [address] [id number] [place] [address]- 5051 Sep, [facility] [place] [facility] [address] [id number] [place] [address]- 8083 Sep, [facility] [place] [facility] [address] [id number] [place] [address]- 6753 Sep, [facility] [place] [facility] [address] [id number] [place] [address]- 8414 Sep, [facility] [place] [facility] [address] [id number] [place] [address]- 2229 Sep, [facility] [place] [facility] [address] [id number] [place] [address]- 9975 Sep, [facility] [place] [facility] [address] [id number] [place] [address]- 9231 Sep, [facility] [place] [facility] [address] [id number] [place] [address]- 8959 Sep, [facility] [place] [facility] [address] [id number] [place] [address]- 9591 Sep, [facility] [place] [facility] [address] [id number] [place] [address]- 8134 Aug, [facility] [place] [facility] [address] [id number] [place] [address]- 8058 Aug, [facility] [place] [facility] [address] [id number] [place] [address]- 6683 14 Jul, 2013 [facility] [place] [facility] [address] [id number] [place] [address]- 2714 14 Jul, 2013 [facility] [place] [facility] [address] [id number] [place] [address]- 2110 13 Jul, 2013 [facility] [place] [facility] [address] [id number] [place] [address]- 7218 13 Jul, 2013 [facility] [place] [facility] [address] [id number] [place] [address]- 0365 06 Jul, 2013 [facility] [place] [facility] [address] [id number] [place] [address]- 6119 Jul, [facility] [place] [facility] [address] [id number] [place] [address]- 2511 06 Jun, 2013 [facility] [place] [facility] [address] [id number] [place] [address]- 3371 Jun, [facility] [place] [facility] [address] [id number] [place] [address]- 9451 Jun, [facility] [place] [facility] [address] [id number] [place] [address]- 6460 Jun, [facility] [place] [facility] [address] [id number] [place] [address]- 9002 14 May, 2013 [facility] [place] [facility] [address] [id number] [place] [address]- 6670 14 May, 2013 [facility] [place] [facility] [address] [id number] [place] [address]- 4611 May, [facility] [place] [facility] [address] [id number] [place] [address]- 4848 May, [facility] [place] [facility] [address] [id number] [place] [address]- 4761 07 May, 2013 [facility] [place] [facility] [address] [id number] [place] [address]- 0357 Apr, [facility] [place] [facility] [address] [id number] [place] [address]- 8167 Apr, [facility] [place] [facility] [address] [id number] [place] [address]- 5134 Apr, [facility] [place] [facility] [address] [id number] [place] [address]- 3627 Apr, [facility] [place] [facility] [address] [id number] [place] [address]- 2384 Apr, [facility] [place] [facility] [address] [id number] [place] [address]- 8019 Apr, [facility] [place] [facility] [address] [id number] [place] [address]- 2032 Apr, [facility] [place] [facility] [address] [id number] [place] [address]- 9643 Apr, [facility] [place] [facility] [address] [id number] [place] [address]- 5116 Apr, [facility] [place] [facility] [address] [id number] [place] [address]- 2974 Apr, [facility] [place] [facility] [address] [id number], [place] [address]- 7299 Apr, [facility] [place] [facility] [address] [id number], [place] [address]- 2946 Apr, [facility] [place] [facility] [address] [id number], [place] [address]- 7246 Mar, [facility] [place] [facility] [address] [id number] [place] [address]- 1750 Mar, [facility] [place] [facility] [address] [id number], [place] [address]- 9062 Feb, [facility] [place] [facility] [address] [id number] [place] [address]- 3820 Jan, [facility] [place] [facility] [address] [id number] [place] [address]- 2432 Jan, [facility] [address] [id number] [place] [address]- 6283 Jan, [facility] [place] [facility] [address] [id number] [place] [address]- 0607 Jan, [facility] [address] [id number] [place] [address]- 8159 Dec, [facility] [place] [facility] [address] [id number] [place] [address]- 0314 Dec, [facility] [address] [id number] [place] [address]- 3786 Dec, [facility] [place] [facility] [address] [id number] [place] [address]- 1195 Dec, [facility] [address] [id number] [place] [address]- 7859 Dec, [facility] [address] [id number] [place] [address]- 3222 Dec, [facility] [address] [id number] [place] [address]- 8415 Dec, [facility] [address] [id number] [place] [address]- 4969 November, [facility] [address] [id number] [place] [address]- 0570 November, [facility] [place] [facility] [address] [id number] [place] [address]- 6100 November, [facility] [place] [facility] [address] [id number] [place] [address]- 8802 Oct, [facility] [place] [facility] [address] [id number] [place] [address]- 2686 Oct, [facility] [place] [facility] [address] [id number] [place] [address]- 8618 Oct, [facility] [place] [facility] [address] [id number] [place] [address]- 6589 Oct, [facility] [address] [id number] [place] [address]- 3003 Oct, [facility] [place] [facility] [address] [id number] [place] [address]- 0136 Sep, [facility] [place] [facility] [address] [id number] [place] [address]- 3644 Sep, [facility] [place] [facility] [address] [id number] [place] [address]- 0766 Sep, [facility] [place] [facility] [address] [id number] [place] [address]- 4711 Sep, [facility] [address] [facility] [id number] [place] [address]- 8562 Aug, [facility] [place] [facility] [address] [id number] [place] [address]- 8061 Aug, [facility] [place] [facility] [address] [id number] [place] [address]- 8218 Aug, [facility] [address] [facility] [id number] [place] [address]- 6162 Aug, [facility] [place] [facility] [address] [id number] [place] [address]- 0376 Jul, [facility] [place] [facility] [address] [id number] [place] [address]- 6575 Jul, [facility] [place] [facility] [address] [id number] [place] [address]- 1399 Jun, [facility] [place] [facility] [address] [id number] [place] [address]- 3196 Jun, [facility] [place] [facility] [address] [facility] [id number] [place] [address]- 5275 Jun, [facility] [place] [facility] [address] [id number], [place] [address]- 4150 Jun, [facility] [place] [facility] [address] [id number] [place] [address]- 3276 May, [facility] [place] [facility] [address] [id number], [place] [address]- 3587 May, [facility] [place] [facility] [address] [facility] [id number] [place] [address]- 8685 May, [facility] [place] [facility] [address] [id number] [place] [address]- 9976 May, [facility] [place] [facility] [address] [facility] [id number] [place] [address], [place] [address]- 4781 Apr, [facility] [place] [facility] [address] [facility] [id number] [place] [address]- 5442 Apr, [facility] [place] [facility] [address] [facility] [id number], [place] [address]- 6594 Apr, [facility] [place] [facility] [address] [facility] [id number] [place] [address]- 7149 Apr, [facility] [place] [facility] [address] [facility] [id number], [place] [address]- 4621 Apr, [facility] [place] [facility] [address] [facility] [id number], [place] [address]- 2619 Apr, [facility] [place] [facility] [address] [facility] [id number], [place] [address]- 9807 Apr, [facility] [place] [facility] [address] [facility] [id number], [place] [address]- 5157 Apr, [facility] [place] [facility] [address] [facility] [id number], [place] [address]- 5304 Apr, [facility] [place] [facility] [address] [facility] [id number], [place] [address]- 9732 Apr, [facility] [place] [facility] [address] [facility] [id number], [place] [address]- 8942 Feb, [facility] [place] [facility] [address] [id number] [place] [address]- 2546 Feb, [facility] [place] [facility] [address] [id number] [place] [address]- 4841 Jan, [facility] [place] [facility] [address] [id number] [place] [address]- 2546 Jan, [facility] [place] [facility] [address] [id number] [place] [address]- 7316 Jan, [facility] [place] [facility] [address] [id number] [place] [address]- 2546 Jan, [facility] [place] [facility] [address] [id number] [place] [address]- 7426 Jan, [facility] [place] [facility] [address] [id number] [place] [address]- 6586 Jan, [facility] [place] [facility] [address] [id number] [place] [address]- 8386 Dec, [facility] [place] [facility] [address] [id number] [place] [address]- 6897 November, [facility] [place] [facility] [address] [id number] [place] [address]- 8746 November, [facility] [place] [facility] [address] [id number] [place] [address]- 5188 November, [facility] [place] [facility] [address] [id number] [place] [address]- 2776 Sep, [facility] [place] [facility] [address] [id number] [place] [address]- 2540 Sep, [facility] [place] [facility] [address] [id number] [place] [address]- 2546 Sep, [facility] [place] [facility] [address] [id number] [place] [address]- 2546 Sep, [facility] [place] [facility] [address] [id number] [place] [address]- 9758 Sep, [facility] [place] [facility] [address] [id number] [place] [address]- 3744 07 Sep, 2011 [facility] [place] [facility] [address] [id number] [place] [address]- 8396 13 Aug, 2011 [facility] [place] [facility] [address] [id number] [place] [address]- 3886 Aug, [facility] [place] [facility] [address] [id number] [place] [address]- 8437 Aug, [facility] [place] [facility] [address] [id number] [place] [address]- 9759 Jul, [facility] [place] [facility] [address] [id number] [place] [address]- 9725 Jul, [facility] [place] [facility] [address] [id number] [place] [address]- 8832 Jul, [facility] [place] [facility] [address] [id number] [place] [address]- 7839 Jul, [facility] [place] [facility] [address] [id number] [place] [address]- 1716 Jun, [facility] [place] [facility] [address] [id number] [place] [address]- 1922 Jun, [facility] [place] [facility] [address] [id number] [place] [address]- 2759 Jun, [facility] [place] [facility] [address] [id number] [place] [address]- 8537 Jun, [facility] [place] [facility] [address] [id number] [place] [address]- 3181 Jun, [facility] [place] [facility] [address] [id number] [place] [address]- 3535 Jun, [facility] [place] [facility] [address] [id number] [place] [address]- 0107 May, [facility] [place] [facility] [address] [id number] [place] [address]- 1649 May, [facility] [address] [id number] [place] [address]- 3876 May, [facility] [address] [id number] [place] [address]- 5916 21 Apr, 2011 [facility] [address] [id number] [place] [address]- 6686 Jan, [facility] [address] [id number] [place] [address] 2543 20 Jun, 2010 [facility] [address] [id number] [place] [address]- 0456 20 Jun, 2010 [facility] [address] [id number] [place] [address]- 1716 15 Jun, 2010 [facility] [address] [id number] [place] [address]- 4516 15 Jun, 2010 [facility] [address] [id number] [place] [address]- 7055 15 Jun, 2010 [facility] [address] [id number] [place] [address]- 1456 13 Jun, 2010 [facility] [address] [id number] [place] [address]- 7664 13 Jun, 2010 [facility] [address] [id number] [place] [address] 2546 Apr, [facility] [address] [id number] [place] [address] 2547 17 Feb, 2010 [facility] [address] [id number] [place] [address]- 2706 15 Aug, 2009 [facility] [address] [id number] [place] [address]- 2546 18 Jul, 2009 [facility] [address] [id number] [place] [address]- 7429 Jul, [facility] [address] [id number], [place] [address]- 5528 29 Jun, 2009 [facility] [place] [facility] [address] [id number] [place] [address]- 4286 Jun, [facility] [place] [facility] [address] [id number], [place] [address]- 4385 Jun, [facility] [place] [facility] [address] [id number], [place] [address]- 7376 Jun, [facility] [place] [facility] [address] [id number] [place] [address]- 9312 16 Jun, 2009 [facility] [place] [facility] [address] [id number], [place] [address]- 3996 Jun, [facility] [place] [facility] [address] [facility] [id number], [place] [address]- 5951 Jun, [facility] [place] [facility] [address] [id number], [place] [address]- 0403 30 May, 2009 [facility] [place] [facility] [address] [facility] [id number], [place] [address]- 9753 27 May, 2009 [facility] [place] [facility] [address] [facility] [id number], [place] [address]- 7850 23 May, 2009 [facility] [place] [facility] [address] [facility] [id number], [place] [address]- 6614 18 May, 2009 [facility] [place] [facility] [address] [id number], [place] [address]- 9082 18 May, 2009 [facility] [place] [facility] [address] [id number], [place] [address]- 2571 16 May, 2009 [facility] [place] [facility] [address] [id number], [place] [address]- 5093 03 May, 2009 [facility] [place] [facility] [address] [facility] [id number], [place] [address] 16 Apr, 2009 [facility] [address] [id number][place] [address] Apr, [facility] [address] [facility] [id number] [address] Jan, [facility] [address] [facility] [id number], [place] [address] Oct, IMMUNIZATIONS No Known Immunizations SOCIAL HISTORY Never Assessed REASON FOR VISIT Diabetes --[facility] PLAN OF CARE Activity Details Follow Up 3 Months Reason:DM VITAL SIGNS Height 62 in 2018-07-12 Weight 177.2 lbs 2018-07-12 Temperature 97.9 degrees Fahrenheit 2018-07-12 Heart Rate 64 bpm 2018-07-12 Respiratory Rate 18 2018-07-12 Oximetry 97 % 2018-07-12 BMI 32.41 kg/m2 2018-07-12 Blood pressure systolic 122 mmHg 2018-07-12 Blood pressure diastolic 64 mmHg 2018-07-12 MEDICATIONS Medication Instructions Dosage Frequency Start Date End Date Duration Status Namzaric 7-10 MG Orally Once a day 1 capsule in the evening 24h 30 Active Zontivity 2.08 MG Orally Once a day 1 tablet 24h Active Clopidogrel Bisulfate 75 MG Orally Once a day 1 tablet 24h 90 Active Aspirin 81 MG Orally Once a day 1 tablet 24h Active Crestor 10 MG Orally Once a day 1 tablet 24h Active Zoloft 50 MG Orally Once a day 1 tablet at bedtime 24h Mar, 30 days Active Furosemide 40 MG TAKE 1 TABLET BY MOUTH DAILY. 30 Active Carvedilol 3.125 MG Orally 2 times a day 1 tablet 12h Active Trutest Blood Glucose Test Strip N/A subcutaneously 6 times a day. E11.40 test blood sugar Dec, Active BD Pen Needle Mini U/F 31G X 5 MM subcutaneously 4 times a day as directed 6h Dec, 30 days Active Fenofibrate 48 MG Orally Once a day 1 tablet 24h Active Levothyroxine Sodium 25 MCG Orally Once a day 1 tablet on an empty stomach in the morning 24h 30 Active Tramadol HCl 50 MG Orally 2 times a day 1 tablet as needed 12h 28 days Active Alcohol Swabs 70 % Wipe area prior to injection or testing blood sugar 30 Active Tresiba FlexTouch 200 UNIT/ML Subcutaneous Once a day Inject 16 units in AM 24h Jan, 90 days Active RESULTS Name Result Date Reference Range A1C (IN HOUSE) A1C IN HOUSE 9.4 4.3 - 5.6 % Previous A1c 11.4 Lot [id number] Exp date 03/2020 PROCEDURES Procedure Date Ordered Result Body Site GLYCATED HEMOGLOBIN TEST Jul 12, 2018 [facility] VISIT ESTABLISHED PATIENT Jul 12, 2018 INSTRUCTIONS MEDICATIONS ADMINISTERED No Known Medications MEDICAL [...]
--- OUTSIDE RECORDS SUMMARY | 2018-11-09 12:41 | XMS REPORT ---
Author Author PRABHA HILL [facility] Address [address] [place] [address] Care Team Providers Care Studio Designer Name Role Phone PRABHA HILL Unavailable PROBLEMS Type Condition ICD9-CM Code EMF12-JU Code Onset Dates Condition Status SNOMED Code Problem Hypoglycemia E16.2 Active 637212462 Problem Hallucinations R44.3 Active 4101686 Problem Unsteady gait R26.81 Active 91726901 Problem 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 Active [id number] Problem Dysuria R30.0 Active 50813375 Problem Anxiety F41.9 Active 43220059 Problem Dementia in other diseases classified elsewhere without behavioral disturbance F02.80 Active 367336440 Problem Other frontotemporal dementia G31.09 Active 479947106 Problem Parkinsons disease G20 Active 61614073 Problem Episodic cluster headache, not intractable G44.019 Active 365880269 Problem Neurogenic orthostatic hypotension G90.3 Active 109295155 Problem Mixed stress and urge urinary incontinence N39.46 Active 346429194 Problem 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 Active 942010319 Problem Essential hypertension I10 Active 91828001 Problem Type 2 diabetes mellitus with unspecified complications E11.8 Active 95860229 Problem PVD (peripheral vascular disease) I73.9 Active 097386222 Problem Dysthymia F34.1 Active 43407263 Problem Polydipsia R63.1 Active 18901137 Problem Coronary artery disease involving [place] coronary artery of [place] heart without angina pectoris I25.10 Active 3746721480653 Problem Hypothyroidism (acquired) E03.9 Active 779707120 Problem Hyperlipemia, mixed E78.2 Active 865648471 Problem Dementia with Lewy bodies G31.83 Active 126465824 Problem Neuropathy G62.9 Active 620521139 Problem Hypernatremia E87.0 Active 74319868 ALLERGIES No Information ENCOUNTERS Encounter Location Date Diagnosis [facility] [id number] [place] [address] 00138- 8987 Jun, [facility] [address] 08310- 4182 May, Left shoulder pain M25.512 [facility] [address] 53193- 9251 May, Left shoulder pain M25.512 [facility] [address] 67103- 9545 May, Parkinsons disease G20 [facility] [address] 58799- 3041 Apr, Dysuria R30.0 and Hypothyroidism (acquired) E03.9 [facility] [address] 94012- 4399 Apr, Dysuria R30.0 and Increased urinary frequency R35.0 [facility] [address] 07550- 8712 Apr, [facility] [address] 16790- 4823 Apr, Parkinsons disease G20 and Hypothyroidism (acquired) E03.9 [facility] [address] 54588- 6792 Apr, [facility] [address] 54356 -0870 Apr, Dysuria R30.0 and Cystitis N30.90 [facility] [address] 78397- 0745 28 Mar, 2018 Left shoulder pain M25.512 [facility] [address] 37169- 5886 Mar, [facility] [id number] [place] [address] 05238- 3863 Mar, Hyperlipemia, mixed E78.2 ; Essential hypertension I10 and Coronary artery disease involving [place] coronary artery of [place] heart without angina pectoris I25.10 [facility] [id number] [place] [address] 85790- 2837 26 Mar, 2018 Type 2 diabetes mellitus with unspecified complications E11.8 [facility] [id number] [place] [address] 37226- 9566 17 Mar, 2018 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 [facility] [id number] [place] [address] 74290- 4233 Mar, [facility] [id number] [place] [address] 62749- 7457 Mar, [facility] [id number] [place] [address] 63688- 1123 Mar, [facility] [id number] [place] [address] 53887- 4777 Mar, [facility] [id number] [place] [address] 50617- 9647 Mar, Cellulitis of left lower extremity L03.116 and Petechial rash R23.3 [facility] [id number] [place] [address] 97267- 7606 Feb, Left shoulder pain M25.512 [facility] [id number] [place] [address] 91248- 0180 Feb, Left shoulder pain M25.512 [facility] [id number] [place] [address] 12033- 0944 Feb, 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 [facility] [address] 54519- 7801 Jan, Left shoulder pain M25.512 [facility] [id number] [place] [address] 05324- 4606 Dec, Parkinsons disease G20 [facility] [address] 02820- 6507 Dec, Left shoulder pain M25.512 [facility] [id number] [place] [address] 54506- 8703 Dec, Type 2 diabetes mellitus with unspecified complications E11.8 ; Anxiety F41.9 ; Therapeutic drug monitoring Z51.81 and Analgesic use Z79.899 [facility] [id number] [place] [address] 42439- 2775 November, [facility] [address] 10712- 4864 November, [facility] [address] 92165- 5370 November, Left shoulder pain M25.512 [facility] [id number] [place] [address] 73397- 5299 Oct, [facility] [id number] [place] [address] 60449 -3105 Oct, [facility] [id number] [place] [address] 97983- 6717 Oct, Parkinsons disease G20 [facility] [id number] [place] [address] 19835 -3698 Oct, Acute cystitis without hematuria N30.00 and Viral upper respiratory tract infection J06.9 [facility] [id number] [place] [address] 57365- 8745 Oct, [facility] [id number] [place] [address] 80577- 9444 Oct, Type 2 diabetes mellitus with unspecified complications E11.8 [facility] [id number] [place] [address] 28136- 3787 Oct, Left shoulder pain M25.512 [facility] [id number] [place] [address] 05480- 3618 Oct, Type 2 diabetes mellitus with unspecified complications E11.8 ; Dysuria R30.0 and Neurogenic orthostatic hypotension G90.3 [facility] [address] 38357- 2695 Sep, Left shoulder pain M25.512 [facility] [address] 95307- 5390 Sep, Medicare annual wellness visit, initial Z00.00 ; Parkinsons disease G20 ; Type 2 diabetes mellitus with unspecified complications E11.8 ; Essential hypertension I10 ; Coronary artery disease involving [place] coronary artery of [place] heart without angina pectoris I25.10 ; Hypothyroidism (acquired ) E03.9 ; PVD (peripheral vascular disease) I73.9 ; Dysthymia F34.1 ; Hyperlipemia, mixed E78.2 ; Neuropathy G62.9 ; Encounter for immunization Z23 ; Encounter for other screening for malignant neoplasm of breast Z12.39 and Mixed stress and urge urinary incontinence N39.46 [facility] [address] 12255- 1413 Aug, Parkinsons disease G20 [facility] [address] 27775- 1901 Aug, Type 2 diabetes mellitus with unspecified complications E11.8 ; Left shoulder pain M25.512 and Hypotensive episode I95.9 [facility] [address] 30736- 4311 09 Aug, 2017 Coronary artery disease involving [place] coronary artery of [place] heart without angina pectoris I25.10 [facility] [id number] [place] [address] 84890- 3613 07 Aug, 2017 Type 2 diabetes mellitus with unspecified complications E11.8 [facility] [address] 40476- 1334 Jul, Callus of foot L84 [facility] [address] 80861- 2926 Jul, [facility] [address] 37950- 1217 Jul, Callus of foot L84 ; Episodic cluster headache, not intractable G44.019 ; Type 2 diabetes mellitus with unspecified complications E11.8 and Parkinsons disease G20 [facility] [id number] [place] [address] 61607- 9907 Jul, [facility] [address] 25032- 9826 Jul, [facility] [address] 02572- 7554 Jun, Type 2 diabetes mellitus with unspecified complications E11.8 ; Unsteady gait R26.81 ; Forgetfulness R68.89 and Hallucinations R44.3 [facility] [address] 19277- 4837 Jun, [facility] [address] 00180- 4224 Jun, Left shoulder pain M25.512 [facility] [address] 64415- 1939 13 May, 2017 Hypernatremia E87.0 and Polydipsia R63.1 [facility] [id number] [place] [address] 62701- 9567 08 May, 2017 Hypernatremia E87.0 and Polydipsia R63.1 [facility] [id number] [place] [address] 01795- 8351 May, Hypoglycemia E16.2 ; Dysuria R30.0 ; Unsteadiness on feet R26.81 ; Forgetfulness R68.89 ; Type 2 diabetes mellitus with unspecified complications E11.8 and Yeast infection involving the vagina and surrounding area B37.3 [facility] [id number] [place] [address] 49141- 4894 May, Acute cystitis without hematuria N30.00 [facility] [id number] [place] [address] 95038 -3450 Apr, Dysuria R30.0 and Acute cystitis without hematuria N30.00 [facility] [address] 43731- 1825 Apr, Hypernatremia E87.0 and Polydipsia R63.1 [facility] [address] 26971- 1082 Apr, Vertigo R42 and Type 2 diabetes mellitus with unspecified complications E11.8 [facility] [address] 09405- 8704 Mar, [facility] [address] 85158- 7794 19 Mar, 2017 Left shoulder pain M25.512 [facility] [address] 12062- 9156 13 Mar, 2017 Vertigo R42 [facility] [address] 86549- 9928 12 Mar, 2017 Polydipsia R63.1 [facility] [address] 05726- 2953 12 Mar, 2017 Polydipsia R63.1 [facility] [address] 25919- 3075 11 Mar, 2017 Vertigo R42 [facility] [address] 04181- 4301 07 Mar, 2017 Type 2 diabetes mellitus with unspecified complications E11.8 ; Vertigo R42 ; Polydipsia R63.1 ; Polyuria R35.8 ; Hypothyroidism ( acquired) E03.9 ; Abnormal urinalysis R82.90 and Dysthymia F34.1 [facility] [address] [id number]- 6234 05 Mar, 2017 Coronary artery disease of [place] artery with stable angina pectoris, unspecified whether [place] or transplanted heart I25.118 ; Systolic CHF, chronic I50.22 ; Hyperlipemia, mixed E78.2 and Essential hypertension I10 [facility] [address] [place] [address] [id number] Feb, Dental caries K02.9 [facility] [id number] [place] [address] 19999- 0293 Feb, Type 2 diabetes mellitus with diabetic neuropathy, unspecified E11.40 [facility] [id number] [place] [address] 26248- 4154 Dec, Left shoulder pain M25.512 [facility] [id number] [place] [address] 59324- 2382 Dec, [facility] [id number] [place] [address] 59192- 4303 Dec, Type 2 diabetes mellitus with unspecified complications E11.8 [facility] [id number] [place] [address] [phone] Dec, Dental examination Z01.20 [facility] [id number] [place] [address] 83792- 2953 Dec, Type 2 diabetes mellitus with diabetic neuropathy, unspecified E11.40 [facility] [id number] [place] [address] 47521- 2722 Dec, [facility] [id number] [place] [address] 70060- 9961 Dec, Type 2 diabetes mellitus with diabetic neuropathy, unspecified E11.40 [facility] [id number] [place] [address] 44684- 2903 November, Left shoulder pain M25.512 [facility] [id number] [place] [address] 80904- 0366 November, [facility] [id number] [place] [address] 88390- 9703 November, Type 2 diabetes mellitus with unspecified complications E11.8 and Dysuria R30.0 [facility] [id number] [place] [address] 86904- 5196 Oct, Left shoulder pain M25.512 [facility] [id number] [place] [address] 19763- 2394 Sep, Left shoulder pain M25.512 [facility] [id number] [place] [address] 24448- 6161 Sep, Pre-op testing Z01.818 [facility] [address] 591419- 1203 Sep, Pre-op testing Z01.818 [facility] [id number] [place] [address] 13922- 1996 Sep, Pre-op testing Z01.818 [facility] [id number] [place] [address] 70656- 2787 Sep, Pre-op testing Z01.818 and Mouth pain K13.79 [facility] [id number] [place] [address] 48541- 7555 Sep, Left shoulder pain M25.512 [facility] [id number] [place] [address] 34429- 2445 Aug, Other eczema L30.8 [facility] [id number] [place] [address] 15352- 8737 06 Aug, 2016 PVD (peripheral vascular disease) I73.9 ; Type 2 diabetes mellitus with unspecified complications E11.8 ; Acute cystitis with hematuria N30.01 ; Other eczema L30.8 ; Dysuria R30.0 and Left shoulder pain M25.512 [facility] [address] [place] [address] 99933 -5870 Jul, Otalgia of right ear H92.01 and Blood in ear canal, right H92.21 [facility] [address] [place] [address] 21999- 1048 Jul, Arthralgia, unspecified joint M25.50 ; PVD (peripheral vascular disease) I73.9 and Neuropathy G62.9 [facility] [address] [address]- 2125 Jul, [facility] [id number] [place] [address] 36828- 7140 Jun, Medicare annual wellness visit, initial Z00.00 ; Cervicalgia M54.2 ; Radiculopathy of cervical region M54.12 ; Encounter for immunization Z23 ; Type 2 diabetes mellitus with unspecified complications E11.8 and Essential hypertension I10 [facility] [id number] [place] [address] 86888- 3047 Jun, [facility] [id number] [place] [address] 10299- 8686 May, Hypothyroidism (acquired) E03.9 [facility] [id number] [place] [address] 10070- 4577 May, Dysuria R30.0 ; Essential hypertension I10 ; Hypothyroidism (acquired) E03.9 and PVD (peripheral vascular disease) I73.9 [facility] [address] [place] [address] 92117 -0176 03 May, 2016 Burning with urination R30.0 and Acute cystitis with hematuria N30.01 [facility] [address] [place] [address] 73349- 5692 May, Dental examination Z01.20 [facility] [id number] [place] [address] 91946- 4837 May, Hypothyroidism (acquired) E03.9 [facility] [address] [place] [address] 41530- 7399 Feb, [facility] [id number] [place] [address] 40249- 9888 Feb, 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 ; PVD ( peripheral vascular disease) I73.9 ; Type 2 diabetes mellitus with unspecified complications E11.8 and Essential hypertension I10 [facility] [id number] [place] [address] 16371- 0243 Jan, [facility] [id number] [place] [address] 28773- 0052 Jan, Hypothyroidism (acquired) E03.9 [facility] [id number] [place] [address] 73928- 4524 Jan, [facility] [id number] [place] [address] 59878- 8879 Jan, [facility] [id number] [place] [address] 39053- 7426 Jan, Type 2 diabetes mellitus with unspecified complications E11.8 ; 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 and Essential ( primary) hypertension I10 [facility] [id number] [place] [address] 77042- 8823 Jan, Type 2 diabetes mellitus with unspecified complications E11.8 ; 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 ; Essential hypertension I10 and PVD (peripheral vascular disease) I73.9 [facility] [id number] [place] [address] 53684- 4222 Jan, [facility] [id number] [place] [address] 74557- 8801 Jan, [facility] [address] [place] [address] 65302- 1457 Jan, [facility] [id number] [place] [address] 69458- 7671 Jan, Weakness R53.1 ; Fatigue, unspecified type R53.83 ; PVD ( peripheral vascular disease) I73.9 ; Acute osteomyelitis of other site M86.18 ; Type 2 diabetes mellitus with diabetic neuropathy, unspecified E11.40 and 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 [facility] [address] [place] [address] 58745- 6617 Dec, [facility] [id number] [place] [address] 54128- 7038 Dec, Type 2 diabetes mellitus with unspecified complications E11.8 [facility] [id number] [place] [address] 12536- 9907 Dec, [facility] [id number] [place] [address] 51818- 3588 Dec, Pressure ulcer, unspecified pressure ulcer stage L89.90 and Type 2 diabetes mellitus with unspecified complications E11.8 [facility] [id number] [place] [address] 92153 -7990 Dec, Toe infection L08.9 [facility] [address] 89327- 1102 November, Dental caries K02.9 [facility] [id number] [place] [address] 48054- 7774 November, [facility] [id number] [place] [address] 38814- 4914 November, Dental examination Z01.20 [facility] [id number] [place] [address] 76257- 1557 Sep, Lipoma of torso D17.1 and Thoracic neuritis M54.14 [facility] [id number] [place] [address] 06633- 1459 Sep, [facility] [id number] [place] [address] 12484- 4400 Aug, [facility] [id number] [place] [address] 51818 -6411 Jul, Dysuria R30.0 and UTI (urinary tract infection) N39.0 [facility] [id number] [place] [address] 01946- 5739 Jun, Left shoulder pain M25.512 [facility] [id number] [place] [address] 10503- 0580 May, Shoulder pain, left M25.512 [facility] [address] [place] [address] 14460- 6974 May, [facility] [id number] [place] [address] 70863- 3187 May, [facility] [address] [place] [address] 71818- 9712 May, Left shoulder pain M25.512 [facility] [id number] [place] [address] 77386- 7781 May, [facility] [id number] [place] [address] 35780- 6858 Apr, Encounter for immunization Z23 [facility] [facility] [id number] [place] [address] 90437- 0500 Apr, Urinary tract infection, site not specified N39.0 ; Hypotension, unspecified I95.9 ; Type 2 diabetes mellitus with unspecified complications E11.8 and Generalized edema R60.1 [facility] [id number] [place] [address] 98083- 4864 Apr, [facility] [id number] [place] [address] 25039- 6594 Mar, Diabetes with other specified manifestations, type II or unspecified type, not stated as uncontrolled 250.80 [facility] [address] [place] [address] 39412- 2935 Feb, Gout 274.9 and Diabetes 250.00 [facility] [address] [place] [address] 41684- 5382 Jan, [facility] [id number] [place] [address] 97707- 1841 November, CAD (coronary artery disease) 414.00 and CHF (congestive heart failure) 428.0 [facility] [address] [place] [address] 91443- 0675 Oct, [facility] [id number] [address]- 8135 14 Oct, 2014 [facility] [place] [facility] [address] [id number] [place] [address]- 5408 13 Oct, 2014 [facility] [place] [facility] [address] [id number] [place] [address]- 9836 Sep, [facility] [place] [facility] [address] [id number] [place] [address]- 3107 Sep, [facility] [place] [facility] [address] [id number] [place] [address]- 3424 Sep, [facility] [place] [facility] [address] [id number] [place] [address]- 9037 Sep, [facility] [place] [facility] [address] [id number] [place] [address]- 4068 Aug, [facility] [place] [facility] [address] [id number] [place] [address]- 0998 Aug, 2014 [facility] [place] [facility] [address] [id number] [place] [address]- 0242 Aug, 2014 [facility] [place] [facility] [address] [id number] [place] [address]- 0712 Aug, 2014 [facility] [place] [facility] [address] [id number] [address] Aug, 2014 [facility] [place] [facility] [address] [id number] [place] [address] Aug, 2014 [facility] [place] [facility] [address] [id number] [place] [address] Aug, [facility] [place] [facility] [address] [id number] [place] [address] Aug, [facility] [place] [facility] [address] [id number] [place] [address] Jul, [facility] [place] [facility] [address] [id number] [place] [address] Jul, [facility] [place] [facility] [address] [id number] [place] [address] Jul, [facility] [place] [facility] [address] [id number] [place] [address] Jul, [facility] [place] [facility] [address] [id number] [place] [address] Jul, [facility] [place] [facility] [address] [id number] [place] [address] Jul, [facility] [place] [facility] [address] [id number] [place] [address] Jul, [facility] [place] [facility] [address] [id number] [place] [address] Jul, [facility] [place] [facility] [address] [id number] [place] [address] Jul, [facility] [place] [facility] [address] [id number] [place] [address] Jul, [facility] [place] [facility] [address] [id number] [place] [address] Jun, [facility] [place] [facility] [address] [id number] [place] [address] Jun, [facility] [place] [facility] [address] [id number] [place] [address] Jun, [facility] [place] [facility] [address] [id number] [place] [address] Jun, [facility] [place] [facility] [address] [id number] [place] [address] Jun, [facility] [place] [facility] [address] [id number] [place] [address] Jun, [facility] [place] [facility] [address] [id number] [place] [address] Jun, [facility] [place] [facility] [address] [id number] [place] [address] 1757 Jun, [facility] [place] [facility] [address] [id number] [place] [address] Jun, [facility] [place] [facility] [address] [id number] [place] [address]- 2631 Jun, [facility] [place] [facility] [address] [id number] [place] [address] 0604 May, [facility] [place] [facility] [address] [id number] [place] [address]- 7761 May, [facility] [place] [facility] [address] [id number] [place] [address] 52[address] Mar, [facility] [place] [facility] [address] [id number] [place] [address] 9815 Mar, [facility] [place] [facility] [address] [id number] [place] [address]- 2022 Mar, [facility] [place] [facility] [address] [id number] [place] [address] 1808 Mar, [facility] [place] [facility] [address] [id number] [place] [address]- 4942 Feb, [facility] [place] [facility] [address] [id number] [place] [address]- 3627 Feb, [facility] [place] [facility] [address] [id number] [place] [address]- 2873 Feb, [facility] [place] [facility] [address] [id number] [place] [address]- 6131 Jan, [facility] [place] [facility] [address] [id number] [place] [address]- 7488 Jan, [facility] [place] [facility] [address] [id number] [place] [address]- 0075 Jan, [facility] [place] [facility] [address] [id number] [place] [address]- 7460 Jan, [facility] [place] [facility] [address] [id number] [place] [address]- 7580 Jan, [facility] [place] [facility] [address] [id number] [place] [address]- 1768 Jan, [facility] [place] [facility] [address] [id number] [place] [address]- 2412 Jan, [facility] [place] [facility] [address] [id number] [place] [address]- 3821 Jan, [facility] [place] [facility] [address] [id number] [place] [address]- 9651 Jan, [facility] [place] [facility] [address] [id number] [place] [address]- 4319 Jan, [facility] [place] [facility] [address] [id number] [place] [address]- 1298 Dec, [facility] [place] [facility] [address] [id number] [place] [address]- 5562 Dec, [facility] [place] [facility] [address] [id number] [place] [address]- 0302 November, [facility] [place] [facility] [address] [id number] [place] [address]- 6425 November, [facility] [place] [facility] [address] [id number] [place] [address]- 6016 November, [facility] [place] [facility] [address] [id number] [place] [address]- 7878 November, [facility] [place] [facility] [address] [id number] [place] [address]- 0822 November, [facility] [place] [facility] [address] [id number] [place] [address]- 0863 November, [facility] [place] [facility] [address] [id number] [place] [address]- 8196 November, [facility] [place] [facility] [address] [id number] [place] [address]- 5944 Oct, [facility] [address] [id number] [place] [address]- 3318 Oct, [facility] [place] [facility] [address] [id number] [place] [address]- 7476 Sep, [facility] [place] [facility] [address] [id number] [place] [address]- 5148 Sep, [facility] [place] [facility] [address] [id number] [place] [address]- 2253 Sep, [facility] [place] [facility] [address] [id number] [place] [address]- 6510 Sep, [facility] [place] [facility] [address] [id number] [place] [address]- 0715 Sep, [facility] [place] [facility] [address] [id number] [place] [address]- 3357 Sep, [facility] [place] [facility] [address] [id number] [place] [address]- 4515 Sep, [facility] [place] [facility] [address] [id number] [place] [address]- 8806 Sep, [facility] [place] [facility] [address] [id number] [place] [address]- 6069 Sep, [facility] [place] [facility] [address] [id number] [place] [address]- 1031 Sep, [facility] [place] [facility] [address] [id number] [place] [address]- 6460 Aug, [facility] [place] [facility] [address] [id number] [place] [address]- 3077 Aug, [facility] [place] [facility] [address] [id number] [place] [address]- 4053 Jul, [facility] [place] [facility] [address] [id number] [place] [address]- 7044 Jul, [facility] [place] [facility] [address] [id number] [place] [address]- 5432 Jul, [facility] [place] [facility] [address] [id number] [place] [address]- 4602 Jul, [facility] [place] [facility] [address] [id number] [place] [address]- 9785 Jul, [facility] [place] [facility] [address] [id number] [place] [address]- 9490 Jul, [facility] [place] [facility] [address] [id number] [place] [address]- 5948 Jun, [facility] [place] [facility] [address] [id number] [place] [address]- 8631 Jun, [facility] [place] [facility] [address] [id number] [place] [address]- 0384 Jun, [facility] [place] [facility] [address] [id number] [place] [address]- 2826 Jun, [facility] [place] [facility] [address] [id number] [place] [address]- 9345 May, [facility] [place] [facility] [address] [id number] [place] [address]- 7862 May, [facility] [place] [facility] [address] [id number] [place] [address]- 6790 May, [facility] [place] [facility] [address] [id number] [place] [address]- 2642 May, [facility] [place] [facility] [address] [id number] [place] [address]- 5210 May, [facility] [place] [facility] [address] [id number] [place] [address] Apr, [facility] [place] [facility] [address] [id number] [place] [address] Apr, [facility] [place] [facility] [address] [id number] [place] [address]- 6709 Apr, [facility] [place] [facility] [address] [id number] [place] [address]- 3552 Apr, [facility] [place] [facility] [address] [id number] [place] [address]- 7456 Apr, [facility] [place] [facility] [address] [id number] [place] [address] 2542 Apr, [facility] [place] [facility] [address] [id number] [place] [address]- 7011 Apr, [facility] [place] [facility] [address] [id number] [place] [address]- 0284 Apr, [facility] [place] [facility] [address] [id number] [place] [address]- 9155 Apr, [facility] [place] [facility] [address] [id number] [place] [address] 254 Apr, [facility] [place] [facility] [address] [id number], [place] [address]- [address]60 Apr, [facility] [place] [facility] [address] [id number] [place] [address]- 1089 Apr, [facility] [place] [facility] [address] [id number], [place] [address]- 2946 Mar, [facility] [place] [facility] [address] [id number], [place] [address]- 2546 Mar, [facility] [place] [facility] [address] [id number], [place] [address]- 2546 Feb, [facility] [place] [facility] [address] [id number] [place] [address]- 2546 Jan, [facility] [place] [facility] [address] [id number], [place] [address]- 2546 Jan, [facility] [place] [facility] [address] [id number], [place] [address]- 2546 Jan, [facility] [place] [facility] [address] [id number] [place] [address]- 1726 Jan, [facility] [address] [id number] [place] [address]- 9154 Dec, [facility] [place] [facility] [address] [id number] [place] [address]- 7206 Dec, [facility] [address] [id number] [place] [address]- 4788 Dec, [facility] [place] [facility] [address] [id number] [place] [address]- 2334 Dec, [facility] [address] [id number] [place] [address]- 8132 Dec, [facility] [address] [id number] [place] [address]- 3286 Dec, [facility] [address] [id number] [place] [address]- 1259 Dec, [facility] [address] [id number] [place] [address]- 7787 November, [facility] [place] [facility] [address] [id number] [place] [address]- 2106 November, [facility] [address] [id number] [place] [address]- 7001 November, [facility] [place] [facility] [address] [id number] [place] [address]- 1758 Oct, [facility] [place] [facility] [address] [id number] [place] [address]- 8644 Oct, [facility] [place] [facility] [address] [id number] [place] [address]- 2406 Oct, [facility] [place] [facility] [address] [id number] [place] [address]- 3432 Oct, [facility] [place] [facility] [address] [id number] [place] [address]- 2927 Oct, [facility] [place] [facility] [address] [id number] [place] [address]- 3971 Sep, [facility] [address] [id number] [place] [address]- 9497 Sep, [facility] [place] [facility] [address] [id number] [place] [address] Sep, [facility] [place] [facility] [address] [id number] [place] [address]- 4548 Sep, [facility] [address] [id number] [place] [address]- 8921 Aug, [facility] [place] [facility] [address] [id number] [place] [address]- 6553 Aug, [facility] [address] [id number] [place] [address]- 6401 Aug, [facility] [address] [id number] [place] [address]- 4350 Aug, [facility] [address] [id number] [place] [address]- 1740 Jul, [facility] [address] [id number] [place] [address]- 6338 Jul, [facility] [address] [id number] [place] [address]- 8474 Jun, [facility] [place] [facility] [address] [id number] [place] [address]- 0241 Jun, [facility] [place] [facility] [address] [id number] [place] [address] 2548 Jun, [facility] [place] [facility] [address] [id number] [place] [address] 2546 Jun, [facility] [place] [facility] [address] [id number] [place] [address]- 7489 May, [facility] [place] [facility] [address] [id number] [place] [address]- 7344 May, [facility] [place] [facility] [address] [id number] [place] [address]- 1196 May, [facility] [place] [facility] [address] [id number] [place] [address]- 2958 May, [facility] [place] [facility] [address] [id number] [place] [address]- 1622 Apr, [facility] [place] [facility] [address] [id number] [place] [address]- 2705 Apr, [facility] [place] [facility] [address] [id number] [place] [address], [place] [address] Apr, [facility] [place] [facility] [address] [id number] [place] [address]- 7931 Apr, [facility] [place] [facility] [address] [id number] [place] [address]- 6192 Apr, [facility] [place] [facility] [address] [id number] [place] [address]- 9263 Apr, [facility] [place] [facility] [address] [id number] [place] [address]- 7465 Apr, [facility] [place] [facility] [address] [id number] [place] [address]- 7622 Apr, [facility] [place] [facility] [address] [id number] [place] [address]- 0439 Apr, [facility] [place] [facility] [address] [id number], [place] [address]- 1203 Apr, [facility] [place] [facility] [address] [id number] [place] [address]- 1709 Feb, [facility] [place] [facility] [address] [id number] [place] [address]- 4813 Feb, [facility] [place] [facility] [address] [id number] [place] [address]- 9306 Jan, [facility] [place] [facility] [address] [id number] [place] [address]- 3984 Jan, [facility] [place] [facility] [address] [id number] [place] [address]- 6096 Jan, [facility] [place] [facility] [address] [id number] [place] [address]- 3316 Jan, [facility] [place] [facility] [address] [id number] [place] [address]- 3746 Jan, [facility] [place] [facility] [address] [id number] [place] [address]- 5320 Jan, [facility] [place] [facility] [address] [id number] [place] [address]- 5046 Dec, [facility] [place] [facility] [address] [id number] [place] [address]- 6287 November, [facility] [place] [facility] [address] [id number] [place] [address]- 0925 November, [facility] [place] [facility] [address] [id number] [place] [address]- 8517 November, [facility] [place] [facility] [address] [id number] [place] [address]- 0088 Sep, [facility] [place] [facility] [address] [id number] [place] [address]- 0556 Sep, [facility] [place] [facility] [address] [id number] [place] [address]- 2124 Sep, [facility] [place] [facility] [address] [id number] [place] [address]- 8099 Sep, [facility] [place] [facility] [address] [id number] [place] [address]- 2866 Sep, [facility] [place] [facility] [address] [id number] [place] [address]- 1236 Sep, [facility] [place] [facility] [address] [id number] [place] [address]- 2573 Aug, [facility] [place] [facility] [address] [id number] [place] [address]- 7386 Aug, [facility] [place] [facility] [address] [id number] [place] [address]- 8856 Aug, [facility] [place] [facility] [address] [id number] [place] [address]- 4397 Jul, [facility] [place] [facility] [address] [id number] [place] [address]- 7717 Jul, [facility] [place] [facility] [address] [id number] [place] [address]- 2911 Jul, [facility] [place] [facility] [address] [id number] [place] [address]- 9803 Jul, [facility] [place] [facility] [address] [id number] [place] [address]- 6423 Jun, [facility] [place] [facility] [address] [id number] [place] [address]- 2918 Jun, [facility] [place] [facility] [address] [id number] [place] [address]- 0081 Jun, [facility] [place] [facility] [address] [id number] [place] [address]- 7058 Jun, [facility] [place] [facility] [address] [id number], [place] [address]- 1117 Jun, [facility] [place] [facility] [address] [id number], [place] [address]- 0099 Jun, [facility] [place] [facility] [address] [id number] [place] [address]- 6114 May, [facility] [place] [facility] [address] [id number] [place] [address]- 0063 May, [facility] [place] [facility] [address] [id number] [place] [address]- 5193 May, [facility] [place] [facility] [address] [id number] [place] [address]- 0254 21 Apr, 2011 [facility] [address] [id number] [place] [address]- 7096 11 Jan, 2011 [facility] [address] [id number] [place] [address]- 1206 20 Jun, 2010 [facility] [address] [id number] [place] [address]- 4466 20 Jun, 2010 [facility] [address] [id number] [place] [address] 2544 15 Jun, 2010 [facility] [address] [id number] [place] [address]- 8546 15 Jun, 2010 [facility] [address] [id number] [place] [address]- 5475 15 Jun, 2010 [facility] [address] [id number] [place] [address]- 8314 13 Jun, 2010 [facility] [address] [id number] [place] [address]- 7292 13 Jun, 2010 [facility] [address] [id number] [place] [address]- 0934 Apr, [facility] [address] [id number] [place] [address]- 4823 17 Feb, 2010 [facility] [address] [id number] [place] [address]- 2647 15 Aug, 2009 [facility] [address] [id number] [place] [address] 2543 Jul, [facility] [address] [id number] [place] [address]- 3136 Jul, [facility] [address] [id number] [place] [address]- 2544 29 Jun, 2009 [facility] [address] [id number] [place] [address]- 2669 Jun, [facility] [place] [facility] [address] [id number] [place] [address]- 4480 28 Jun, 2009 [facility] [place] [facility] [address] [id number] [place] [address]- 0226 Jun, [facility] [place] [facility] [address] [id number] [place] [address]- 2193 16 Jun, 2009 [facility] [place] [facility] [address] [id number] [place] [address]- 0306 Jun, [facility] [place] [facility] [address] [id number] [place] [address]- 2773 Jun, [facility] [place] [facility] [address] [id number] [place] [address]- 1230 30 May, 2009 [facility] [place] [facility] [address] [id number] [place] [address]- 7335 May, [facility] [place] [facility] [address] [id number], [place] [address]- 2744 May, [facility] [place] [facility] [address] [id number], [place] [address]- 1362 May, [facility] [place] [facility] [address] [id number], [place] [address]- 3219 May, [facility] [place] [facility] [address] [id number], [place] [address]- 6809 16 May, 2009 [facility] [place] [facility] [address] [id number], [place] [address]- 5401 May, [facility] [place] [facility] [address] [id number], [place] [address]- 6282 16 Apr, 2009 [facility] [place] [facility] [address] [id number], [place] [address]- 9288 12 Apr, 2009 [facility] [place] [facility] [address] [id number][place] 4674 Jan, [facility] [place] [facility] [address] [id number] [place] [address]- 7896 Oct, IMMUNIZATIONS No Known Immunizations SOCIAL HISTORY Never Assessed REASON FOR VISIT Controlled Med Refill 06/23 PLAN OF CARE VITAL SIGNS MEDICATIONS Medication Instructions Dosage Frequency Start Date End Date Duration Status Tramadol HCl 50 MG Orally 2 times a day 1 tablet as needed 12h 28 days Active RESULTS No Results PROCEDURES No Known [...] Sugery (history of 10 eye surgeries) 07/2017 Hospitalization History surgeries Hospitalization History MRSA Hospitalization History [place] for no circulation to lt foot/diabetic coma while in hospital January 2016
--- OUTSIDE RECORDS SUMMARY | 2018-11-09 12:42 | XMS REPORT ---
Author Author PRABHA HILL [facility] Address [address] [place] [address] Care Team Providers Care Medical Sonographer Name Role Phone PRABHA HILL Unavailable PROBLEMS Type Condition ICD9-CM Code KTI63-UM Code Onset Dates Condition Status SNOMED Code Problem Hypoglycemia E16.2 Active 925567447 Problem Hallucinations R44.3 Active 8306010 Problem Unsteady gait R26.81 Active 30688151 Problem 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 Active 131399142421449 Problem Dysuria R30.0 Active 84110693 Problem Anxiety F41.9 Active 94661752 Problem Dementia in other diseases classified elsewhere without behavioral disturbance F02.80 Active 983643342 Problem Other frontotemporal dementia G31.09 Active 169729790 Problem Parkinsons disease G20 Active 00009009 Problem Episodic cluster headache, not intractable G44.019 Active 472929634 Problem Neurogenic orthostatic hypotension G90.3 Active 812093905 Problem Mixed stress and urge urinary incontinence N39.46 Active 262529366 Problem 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 Active 321715139 Problem Essential hypertension I10 Active 73144827 Problem Type 2 diabetes mellitus with unspecified complications E11.8 Active 00911078 Problem PVD (peripheral vascular disease) I73.9 Active 359627720 Problem Dysthymia F34.1 Active 74479277 Problem Polydipsia R63.1 Active 15907770 Problem Coronary artery disease involving [place] coronary artery of [place] heart without angina pectoris I25.10 Active 4990714167014 Problem Hypothyroidism (acquired) E03.9 Active 886981443 Problem Hyperlipemia, mixed E78.2 Active 486902657 Problem Dementia with Lewy bodies G31.83 Active 935570990 Problem Neuropathy G62.9 Active 993660462 Problem Hypernatremia E87.0 Active 80158858 ALLERGIES No Information ENCOUNTERS Encounter Location Date Diagnosis [facility] [address] [address] Jun, [facility] [address] [address]- [address] May, Left shoulder pain M25.512 [facility] [address] 89282- 4789 08 May, 2018 Parkinsons disease G20 [facility] [address] 9[address]- 4724 Apr, Dysuria R30.0 and Hypothyroidism (acquired) E03.9 [facility] [address] 80992- 9084 Apr, Dysuria R30.0 and Increased urinary frequency R35.0 [place] [facility] [address] 24932- 8859 Apr, [facility] [address] 89798- 3957 Apr, Parkinsons disease G20 and Hypothyroidism (acquired) E03.9 [facility] [address] 39624- 0559 Apr, [facility] [address] [address] Apr, Dysuria R30.0 and Cystitis N30.90 [facility] [address] 36730- 9694 Mar, Left shoulder pain M25.512 [facility] [address] 46641- 3899 Mar, [facility] [address] 9[address]10- 0219 Mar, Hyperlipemia, mixed E78.2 ; Essential hypertension I10 and Coronary artery disease involving [place] coronary artery of [place] heart without angina pectoris I25.10 [facility] [address] [place] [address] Mar, Type 2 diabetes mellitus with unspecified complications E11.8 [facility] [id number] [place] [address] 70158- 6470 17 Mar, 2018 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 [facility] [id number] [place] [address] 43348- 0005 Mar, [facility] [id number] [place] [address] 25184- 6915 Mar, [facility] [id number] [place] [address] 07771- 7172 Mar, [facility] [id number] [place] [address] 42099- 6154 Mar, [facility] [id number] [place] [address] 52838- 1653 Mar, Cellulitis of left lower extremity L03.116 and Petechial rash R23.3 [place] [id number] [place] [address] 86652- 7850 Feb, Left shoulder pain M25.512 [place] [id number] [place] [address] 50216- 2952 Feb, Left shoulder pain M25.512 [place] [id number] [place] [address] 31277- 9539 Feb, 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 [facility] [id number] [place] [address] 19854- 6377 Jan, Left shoulder pain M25.512 [place] [id number] [place] [address] 54454- 2850 Dec, Parkinsons disease G20 [facility] [id number] [place] [address] 04557- 0246 Dec, Left shoulder pain M25.512 [facility] [id number] [place] [address] 61477- 7715 Dec, Type 2 diabetes mellitus with unspecified complications E11.8 ; Anxiety F41.9 ; Therapeutic drug monitoring Z51.81 and Analgesic use Z79.899 [place] [id number] [place] [address] 49526- 0513 November, [facility] [address] 01531- 2923 November, [place] [address] 22523- 3964 November, Left shoulder pain M25.512 [place] [address] 27710- 8128 Oct, [facility] [address] 6[address]46 -2410 Oct, [place] [address] 58769- 3749 Oct, Parkinsons disease G20 [facility] [address] 59327 -0548 Oct, Acute cystitis without hematuria N30.00 and Viral upper respiratory tract infection J06.9 [place] [id number] [place] [address] 96884- 8306 Oct, [place] [id number] [place] [address] 91552- 4102 Oct, Type 2 diabetes mellitus with unspecified complications E11.8 [place] [id number] [place] [address] 30010- 3748 Oct, Left shoulder pain M25.512 [place] [id number] [place] [address] 58175- 1548 Oct, Type 2 diabetes mellitus with unspecified complications E11.8 ; Dysuria R30.0 and Neurogenic orthostatic hypotension G90.3 [place] [address] 33895- 4312 Sep, Left shoulder pain M25.512 [place] [address] 71149- 3194 12 Sep, 2017 Medicare annual wellness visit, initial Z00.00 ; Parkinsons disease G20 ; Type 2 diabetes mellitus with unspecified complications E11.8 ; Essential hypertension I10 ; Coronary artery disease involving [place] coronary artery of [place] heart without angina pectoris I25.10 ; Hypothyroidism (acquired ) E03.9 ; PVD (peripheral vascular disease) I73.9 ; Dysthymia F34.1 ; Hyperlipemia, mixed E78.2 ; Neuropathy G62.9 ; Encounter for immunization Z23 ; Encounter for other screening for malignant neoplasm of breast Z12.39 and Mixed stress and urge urinary incontinence N39.46 [place] [address] 57791- 4572 25 Aug, 2017 Parkinsons disease G20 [place] [address] 61095- 9083 Aug, Type 2 diabetes mellitus with unspecified complications E11.8 ; Left shoulder pain M25.512 and Hypotensive episode I95.9 [place] [address] 63584- 3340 09 Aug, 2017 Coronary artery disease involving [place] coronary artery of [place] heart without angina pectoris I25.10 [place] [address] 50927- 7196 07 Aug, 2017 Type 2 diabetes mellitus with unspecified complications E11.8 [place] [address] 33267- 5072 Jul, Callus of foot L84 [place] [address] 39287- 2576 Jul, [place] [address] 80699- 7469 Jul, Callus of foot L84 ; Episodic cluster headache, not intractable G44.019 ; Type 2 diabetes mellitus with unspecified complications E11.8 and Parkinsons disease G20 [place] [address] [place] [address] 56478- 4613 Jul, [place] [id number] [place] [address] 27495- 9796 Jul, [place] [id number] [place] [address] 32209- 8859 Jun, Type 2 diabetes mellitus with unspecified complications E11.8 ; Unsteady gait R26.81 ; Forgetfulness R68.89 and Hallucinations R44.3 [place] [id number] [place] [address] 37118- 7538 Jun, [place] [address] 45484- 7196 Jun, Left shoulder pain M25.512 [place] [id number] [place] [address] 03279- 2592 13 May, 2017 Hypernatremia E87.0 and Polydipsia R63.1 [place] [id number] [place] [address] 54732- 7189 08 May, 2017 Hypernatremia E87.0 and Polydipsia R63.1 [place] [id number] [place] [address] 78724- 5385 08 May, 2017 Hypoglycemia E16.2 ; Dysuria R30.0 ; Unsteadiness on feet R26.81 ; Forgetfulness R68.89 ; Type 2 diabetes mellitus with unspecified complications E11.8 and Yeast infection involving the vagina and surrounding area B37.3 [place] [address] [place] [address] 20966- 3952 May, Acute cystitis without hematuria N30.00 [facility] [address] [place] [address] 10285 -0901 Apr, Dysuria R30.0 and Acute cystitis without hematuria N30.00 [facility] [id number] [place] [address] 24695- 4340 Apr, Hypernatremia E87.0 and Polydipsia R63.1 [place] [address] 10723- 0240 02 Apr, 2017 Vertigo R42 and Type 2 diabetes mellitus with unspecified complications E11.8 [place] [address] [place] 678439- 9371 20 Mar, 2017 [place] [address] 905804- 9497 19 Mar, 2017 Left shoulder pain M25.512 [place] [address] 847926- 5115 13 Mar, 2017 Vertigo R42 [place] [address] 30668- 0743 12 Mar, 2017 Polydipsia R63.1 [place] [address] 60364- 7137 12 Mar, 2017 Polydipsia R63.1 [place] [address] 22452- 4314 11 Mar, 2017 Vertigo R42 [place] [address] [place] 19648546- 7176 07 Mar, 2017 Type 2 diabetes mellitus with unspecified complications E11.8 ; Vertigo R42 ; Polydipsia R63.1 ; Polyuria R35.8 ; Hypothyroidism ( acquired) E03.9 ; Abnormal urinalysis R82.90 and Dysthymia F34.1 [place] [id number] [place] [address] 42760- 4681 05 Mar, 2017 Coronary artery disease of [place] artery with stable angina pectoris, unspecified whether [place] or transplanted heart I25.118 ; Systolic CHF, chronic I50.22 ; Hyperlipemia, mixed E78.2 and Essential hypertension I10 [facility] [address] [place] [address] [id number] Feb, Dental caries K02.9 [place] [address] [address]- 9842 Feb, Type 2 diabetes mellitus with diabetic neuropathy, unspecified E11.40 [facility] [id number] [place] [address] 07856- 8964 23 Dec, 2016 Left shoulder pain M25.512 [facility] [id number] [place] [address] 04834- 5791 Dec, [facility] [id number] [place] [address] 08346- 3056 Dec, Type 2 diabetes mellitus with unspecified complications E11.8 [facility] [id number] [place] [address] [id number] Dec, Dental examination Z01.20 [facility] [id number] [place] [address] 01317- 6599 Dec, Type 2 diabetes mellitus with diabetic neuropathy, unspecified E11.40 [facility] [id number] [place] [address] 25200- 4756 Dec, [facility] [id number] [place] [address] 53993- 3605 Dec, Type 2 diabetes mellitus with diabetic neuropathy, unspecified E11.40 [facility] [address] [place] [address] 04264- 7612 November, Left shoulder pain M25.512 [facility] [id number] [place] [address] 43988- 0117 November, [facility] [address] [place] [address] 61521- 8895 November, Type 2 diabetes mellitus with unspecified complications E11.8 and Dysuria R30.0 [facility] [address] [place] [address] 03535- 6270 Oct, Left shoulder pain M25.512 [facility] [id number] [place] [address] 68462- 1174 Sep, Left shoulder pain M25.512 [place] [id number] [place] [address] 41935- 9277 Sep, Pre-op testing Z01.818 [place] [id number] [place] [address] 47101- 3513 Sep, Pre-op testing Z01.818 [place] [address] [id number] [place] [address] 28339- 1371 Sep, Pre-op testing Z01.818 [place] [address] [id number] [place] [address] 86235- 3175 Sep, Pre-op testing Z01.818 and Mouth pain K13.79 [place] [id number] [place] [address] 78364- 9055 Sep, Left shoulder pain M25.512 [place] [address] [id number] [place] [address] 54793- 4169 Aug, Other eczema L30.8 [place] [id number] [place] [address] 98811- 3647 Aug, PVD (peripheral vascular disease) I73.9 ; Type 2 diabetes mellitus with unspecified complications E11.8 ; Acute cystitis with hematuria N30.01 ; Other eczema L30.8 ; Dysuria R30.0 and Left shoulder pain M25.512 [facility] [address] [place] [address] 52146 -3588 Jul, Otalgia of right ear H92.01 and Blood in ear canal, right H92.21 [place] [id number] [place] [address] 06709- 0064 Jul, Arthralgia, unspecified joint M25.50 ; PVD (peripheral vascular disease) I73.9 and Neuropathy G62.9 [place] [id number] [place] [address] 10704- 3867 Jul, [place] [address] [place] [address] 70834- 9927 Jun, Medicare annual wellness visit, initial Z00.00 ; Cervicalgia M54.2 ; Radiculopathy of cervical region M54.12 ; Encounter for immunization Z23 ; Type 2 diabetes mellitus with unspecified complications E11.8 and Essential hypertension I10 [facility] [id number] [place] [address] 69884- 1155 Jun, [facility] [id number] [place] [address] 56390- 4989 May, Hypothyroidism (acquired) E03.9 [place] [address] 21914- 0862 May, Dysuria R30.0 ; Essential hypertension I10 ; Hypothyroidism (acquired) E03.9 and PVD (peripheral vascular disease) I73.9 [facility] [id number] [place] [address] 98573 -8063 May, Burning with urination R30.0 and Acute cystitis with hematuria N30.01 [place] [id number] [place] [address] 71886- 2530 May, Dental examination Z01.20 [place] [id number] [place] [address] 41116- 4179 May, Hypothyroidism (acquired) E03.9 [place] [id number] [place] [address] 24267- 0889 Feb, [facility] [id number] [place] [address] 26495- 3793 Feb, 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 ; PVD ( peripheral vascular disease) I73.9 ; Type 2 diabetes mellitus with unspecified complications E11.8 and Essential hypertension I10 [facility] [id number] [place] [address] 75897- 7577 Jan, [place] [address] [place] [address]- 9560 Jan, Hypothyroidism (acquired) E03.9 [place] [id number] [place] [address] 23119- 7886 Jan, [place] [id number] [place] [address] 63394- 6780 Jan, [place] [id number] [place] [address] 30720- 9158 Jan, Type 2 diabetes mellitus with unspecified complications E11.8 ; 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 and Essential ( primary) hypertension I10 [place] [address] [id number] [place] [address] 58077- 6101 Jan, Type 2 diabetes mellitus with unspecified complications E11.8 ; 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 ; Essential hypertension I10 and PVD (peripheral vascular disease) I73.9 [place] [id number] [place] [address] 37472- 1438 Jan, [place] [id number] [place] [address] 49193- 8774 Jan, [place] [id number] [place] [address] 32197- 7352 Jan, [place] [id number] [place] [address] 50513- 0785 Jan, Weakness R53.1 ; Fatigue, unspecified type R53.83 ; PVD ( peripheral vascular disease) I73.9 ; Acute osteomyelitis of other site M86.18 ; Type 2 diabetes mellitus with diabetic neuropathy, unspecified E11.40 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 [place] [id number] [place] [address] 53003- 6199 Dec, [place] [id number] [place] [address] 93409- 2983 Dec, Type 2 diabetes mellitus with unspecified complications E11.8 [place] [address] [address] [id number] [place] [address] 06323- 6751 Dec, [place] [address] [id number] [place] [address] 98476- 9276 Dec, Pressure ulcer, unspecified pressure ulcer stage L89.90 and Type 2 diabetes mellitus with unspecified complications E11.8 [facility] [id number] [place] [address] 62513 -3212 Dec, Toe infection L08.9 [place] [address] [id number] [place] [address] 24712- 6087 November, Dental caries K02.9 [place] [address] 48918- 8954 November, [place] [address] [id number] [place] [address] 28083- 9808 November, Dental examination Z01.20 [place] [address] [address] [id number] [place] [address] 33164- 0307 Sep, Lipoma of torso D17.1 and Thoracic neuritis M54.14 [place] [address] [id number] [place] [address] 46635- 4684 Sep, [place] [address] [address] [id number] [place] [address] 71522- 1030 Aug, [facility] [address] [place] [address] 88634 -6011 Jul, Dysuria R30.0 and UTI (urinary tract infection) N39.0 [place] [address] [address] [id number] [place] [address] 19845- 6323 Jun, Left shoulder pain M25.512 [place] [address] [id number] [place] [address] 26353- 0937 May, Shoulder pain, left M25.512 [place] [address] [address] [id number] [place] [address] 55789- 1795 May, [facility] [id number] [place] [address] 48059- 9965 May, [place] [address] 35196- 4549 May, Left shoulder pain M25.512 [place] [address] 92916- 4196 May, [place] [address] 29559- 1418 Apr, Encounter for immunization Z23 [address] 15558- 8691 Apr, Urinary tract infection, site not specified N39.0 ; Hypotension, unspecified I95.9 ; Type 2 diabetes mellitus with unspecified complications E11.8 and Generalized edema R60.[address] 55632- 7519 Apr, [place] [address] 27840- 0012 Mar, Diabetes with other specified manifestations, type II or unspecified type, not stated as uncontrolled 250.80 [place] [address] 12315- 3513 Feb, Gout 274.9 and Diabetes 250.[address] 04204- 4870 Jan, [address] 91444- 6425 November, CAD (coronary artery disease) 414.00 and CHF (congestive heart failure) 428.[address] 59882- 8645 Oct, [place] [address] 60287- 4000 Oct, [place] [address] 89841- 5487 Oct, [facility] [place] [facility] [address] [id number] [place] [address]- 2217 Sep, [facility] [place] [facility] [address] [id number] [place] [address]- 7527 Sep, [facility] [place] [facility] [address] [facility] [id number] [place] [address]- 6585 Sep, [facility] [place] [facility] [address] [id number] [place] [address]- 2344 Sep, [facility] [place] [facility] [address] [id number] [place] [address]- 0490 Aug, [facility] [place] [facility] [address] [id number] [place] [address]- 1487 Aug, [facility] [place] [facility] [address] [facility] [id number] [place] [address]- 3394 Aug, 2014 [facility] [place] [facility] [address] [facility] [id number] [place] [address]- 1458 Aug, [facility] [place] [facility] [address] [facility] [id number] [place] [address]- 5854 Aug, [facility] [place] [facility] [address] [facility] [id number] [place] [address]- 9492 Aug, [facility] [place] [facility] [address] [facility] [id number] [place] [address]- 5070 Aug, [facility] [place] [facility] [address] [facility] [id number] [place] [address]- 3716 Aug, [facility] [place] [facility] [address] [facility] [id number] [place] [address] Jul, [facility] [place] [facility] [address] [facility] [id number] [place] [address] Jul, [facility] [place] [facility] [address] [facility] [id number] [place] [address] Jul, [facility] [place] [facility] [address] [id number] [place] [address] Jul, [facility] [place] [facility] [address] [id number] [place] [address] Jul, [facility] [place] [facility] [address] [id number] [place] [address] Jul, [facility] [place] [facility] [address] [id number] [place] [address] Jul, [facility] [place] [facility] [address] [id number] [place] [address] Jul, [facility] [place] [facility] [address] [id number] [place] [address] Jul, [facility] [place] [facility] [address] [id number] [place] [address] Jul, [facility] [place] [facility] [address] [id number] [place] [address] Jun, [facility] [place] [facility] [address] [id number] [place] [address] Jun, [facility] [place] [facility] [address] [id number] [place] [address] Jun, [facility] [place] [facility] [address] [id number] [place] [address] Jun, [facility] [place] [facility] [address] [id number] [address] Jun, [facility] [place] [facility] [address] [id number] [place] [address] Jun, [facility] [place] [facility] [address] [id number] [place] [address] Jun, [facility] [place] [facility] [address] [id number] [address] Jun, [facility] [place] [facility] [address] [id number], [place] [address] Jun, [facility] [place] [facility] [address] [id number] [place] [address] Jun, [facility] [place] [facility] [address] [id number] [place] [address] 2038 May, [facility] [place] [facility] [address] [id number] [place] [address]- 4666 May, [facility] [place] [facility] [address] [id number] [place] [address] 4187 Mar, [facility] [place] [facility] [address] [id number] [place] [address]- 1495 Mar, [facility] [place] [facility] [address] [id number] [place] [address] 4168 Mar, [facility] [place] [facility] [address] [id number] [place] [address]- 9278 Mar, [facility] [place] [facility] [address] [id number] [place] [address]- 7225 Feb, [facility] [place] [facility] [address] [id number] [place] [address]- 2071 Feb, [facility] [place] [facility] [address] [id number] [place] [address]- 2334 Feb, [facility] [place] [facility] [address] [id number] [place] [address]- 9377 Jan, [facility] [place] [facility] [address] [id number] [place] [address]- 8728 Jan, [facility] [place] [facility] [address] [id number] [place] [address]- 7588 Jan, [facility] [place] [facility] [address] [id number] [place] [address]- 6963 Jan, [facility] [place] [facility] [address] [id number] [place] [address]- 2532 Jan, [facility] [place] [facility] [address] [id number] [place] [address]- [address] Jan, [facility] [place] [facility] [address] [id number] [place] [address]- 4794 Jan, [facility] [place] [facility] [address] [id number] [place] [address]- 9851 Jan, [facility] [place] [facility] [address] [id number] [place] [address]- 6492 Jan, [facility] [place] [facility] [address] [id number] [place] [address]- 5174 Jan, [facility] [place] [facility] [address] [id number] [place] [address]- 7376 Dec, [facility] [place] [facility] [address] [id number] [place] [address]- 8695 Dec, [facility] [place] [facility] [address] [id number] [place] [address]- 6829 November, [facility] [place] [facility] [address] [id number] [place] [address] November, [facility] [place] [facility] [address] [id number] [place] [address]- 7568 November, [facility] [place] [facility] [address] [id number] [place] [address]- 1647 November, [facility] [place] [facility] [address] [id number] [place] [address]- 4909 November, [facility] [place] [facility] [address] [id number] [place] [address]- 0833 November, [facility] [place] [facility] [address] [id number] [place] [address]- 3636 November, [facility] [place] [facility] [address] [id number] [place] [address]- 6213 Oct, [facility] [place] [facility] [address] [id number] [place] [address]- 7307 Oct, [facility] [place] [facility] [address] [id number] [place] [address]- 0696 Sep, [facility] [place] [facility] [address] [id number] [place] [address]- 0102 Sep, [facility] [place] [facility] [address] [id number] [place] [address]- 7337 Sep, [facility] [place] [facility] [address] [id number] [place] [address]- 2553 Sep, [facility] [place] [facility] [address] [id number] [place] [address]- 3698 Sep, [facility] [place] [facility] [address] [id number] [place] [address]- 0937 Sep, [facility] [place] [facility] [address] [id number] [place] [address]- 3959 Sep, [facility] [place] [facility] [address] [id number] [place] [address]- 0139 Sep, [facility] [place] [facility] [address] [id number] [place] [address]- 6149 Sep, [facility] [place] [facility] [address] [id number] [place] [address]- 9236 Sep, [facility] [place] [facility] [address] [id number] [place] [address]- 9711 Aug, [facility] [place] [facility] [address] [id number] [place] [address]- 2176 Aug, [facility] [place] [facility] [address] [id number] [place] [address]- 0915 Jul, [facility] [place] [facility] [address] [id number] [place] [address]- 1423 Jul, [facility] [place] [facility] [address] [id number] [place] [address]- 5998 Jul, [facility] [place] [facility] [address] [id number] [place] [address]- 3242 Jul, [facility] [address] [id number] [place] [address]- 5388 Jul, [facility] [address] [id number] [place] [address]- 5733 Jul, [facility] [address] [id number] [place] [address]- 0796 Jun, [facility] [place] [facility] [address] [id number] [place] [address]- 2697 Jun, [facility] [address] [id number] [place] [address]- 3681 Jun, [facility] [address] [id number] [place] [address]- 0025 Jun, [facility] [address] [id number] [place] [address]- 3607 May, [facility] [address] [id number] [place] [address]- 5486 14 May, 2013 [facility] [address] [id number] [place] [address]- 8008 May, [facility] [address] [id number] [place] [address]- 9355 May, [facility] [place] [facility] [address] [id number] [place] [address]- 7677 May, [facility] [place] [facility] [address] [id number] [place] [address]- 7769 Apr, [facility] [place] [facility] [address] [id number] [place] [address]- 3143 Apr, [facility] [place] [facility] [address] [id number] [place] [address]- 5581 Apr, [facility] [place] [facility] [address] [id number] [place] [address]- 5506 Apr, [facility] [place] [facility] [address] [id number] [place] [address]- 3799 Apr, [facility] [place] [facility] [address] [id number] [place] [address]- 5833 Apr, [facility] [place] [facility] [address] [id number] [place] [address]- 5204 Apr, [facility] [place] [facility] [address] [id number] [place] [address]- 5878 Apr, [facility] [place] [facility] [address] [id number] [place] [address]- 7697 Apr, [facility] [place] [facility] [address] [id number] [place] [address]- 2057 Apr, [facility] [place] [facility] [address] [id number] [place] [address]- 6770 Apr, [facility] [place] [facility] [address] [id number] [place] [address]- 5876 Apr, [facility] [place] [facility] [address] [id number] [place] [address]- 3618 Mar, [facility] [place] [facility] [address] [id number] [place] [address]- 1618 Mar, [facility] [place] [facility] [address] [id number] [place] [address] 2548 Feb, [facility] [place] [facility] [address] [id number], [place] [address]- 3567 Jan, [facility] [place] [facility] [address] [id number] [place] [address]- 1745 Jan, [facility] [place] [facility] [address] [id number] [place] [address]- 2546 Jan, [facility] [place] [facility] [address] [id number], [place] [address]- 2546 Jan, [facility] [place] [facility] [address] [id number], [place] [address]- 7654 Dec, [facility] [address] [id number] [place] [address]- 4250 Dec, [facility] [place] [facility] [address] [id number] [place] [address]- 6693 Dec, [facility] [place] [facility] [address] [id number] [place] [address]- 0986 Dec, [facility] [place] [facility] [address] [id number] [place] [address]- 8210 Dec, [facility] [place] [facility] [address] [id number] [place] [address]- 5875 Dec, [facility] [place] [facility] [address] [id number] [place] [address]- 1130 Dec, [facility] [address] [id number] [place] [address]- 4246 November, [facility] [place] [facility] [address] [id number] [place] [address]- 9894 November, [facility] [place] [facility] [address] [id number] [place] [address]- 9378 November, [facility] [place] [facility] [address] [id number] [place] [address]- 3440 Oct, [facility] [place] [facility] [address] [id number] [place] [address]- 3736 Oct, [facility] [place] [facility] [address] [id number] [place] [address]- 5326 Oct, [facility] [place] [facility] [address] [id number] [place] [address]- 7527 Oct, [facility] [place] [facility] [address] [id number] [place] [address]- 1265 Oct, [facility] [place] [facility] [address] [id number] [place] [address]- 2818 Sep, [facility] [place] [facility] [address] [id number] [place] [address]- 6233 20 Sep, 2012 [facility] [address] [id number] [place] [address]- 0196 Sep, [facility] [place] [facility] [address] [id number] [place] [address]- 6236 Sep, [facility] [place] [facility] [address] [id number] [place] [address]- 7166 Aug, [facility] [place] [facility] [address] [id number] [place] [address]- 3606 Aug, [facility] [place] [facility] [address] [id number] [place] [address]- 5558 Aug, [facility] [place] [facility] [address] [id number] [place] [address]- 6887 Aug, [facility] [place] [facility] [address] [id number] [place] [address]- 1169 Jul, [facility] [place] [facility] [address] [id number] [place] [address]- 3866 Jul, [facility] [place] [facility] [address] [id number] [place] [address]- 3227 Jun, [facility] [place] [facility] [address] [id number] [place] [address]- 7087 Jun, [facility] [place] [facility] [address] [id number] [place] [address]- 2344 Jun, [facility] [place] [facility] [address] [id number] [place] [address]- 0523 Jun, [facility] [place] [facility] [address] [id number] [place] [address]- 6292 May, [facility] [place] [facility] [address] [id number] [place] [address]- 5033 May, [facility] [place] [facility] [address] [id number] [place] [address]- 9466 May, [facility] [place] [facility] [address] [id number] [place] [address]- 9679 May, [facility] [place] [facility] [address] [id number] [place] [address]- 3552 Apr, [facility] [place] [facility] [address] [id number] [place] [address]- 9248 Apr, [facility] [place] [facility] [address] [id number] [place] [address]- 9698 Apr, [facility] [place] [facility] [address] [id number] [place] [address]245 Apr, [facility] [place] [facility] [address] [id number] [place] [address] Apr, [facility] [place] [facility] [address] [id number] [place] [address]- 8346 Apr, [facility] [place] [facility] [address] [id number] [place] [address]- 0658 Apr, [facility] [place] [facility] [address] [id number] [place] [address]- 2599 Apr, [facility] [place] [facility] [address] [id number] [place] [address]- 7242 Apr, [facility] [place] [facility] [address] [id number], [place] [address]- 4002 Apr, [facility] [place] [facility] [address] [id number], [place] [address]- 6396 Feb, [facility] [place] [facility] [address] [id number] [place] [address]- 3434 Feb, [facility] [place] [facility] [address] [id number] [place] [address]- 0609 Jan, [facility] [place] [facility] [address] [id number] [place] [address]- 8430 Jan, [facility] [place] [facility] [address] [id number] [place] [address]- 6009 Jan, [facility] [address] [id number] [place] [address]- 1902 Jan, [facility] [address] [id number] [place] [address]- 1826 Jan, [facility] [address] [id number] [place] [address]- 3186 Jan, [facility] [address] [id number] [place] [address]- 0029 Dec, [facility] [address] [id number] [place] [address]- 5271 November, [facility] [address] [id number] [place] [address]- 8586 November, [facility] [address] [id number] [place] [address]- 6778 November, [facility] [address] [id number] [place] [address]- 0485 Sep, [facility] [address] [id number] [place] [address]- 4489 Sep, [facility] [address] [id number] [place] [address]- 0614 Sep, [facility] [address] [id number] [place] [address]- 1209 Sep, [facility] [address] [id number] [place] [address]- 3040 Sep, [facility] [place] [facility] [address] [id number] [place] [address]- 4996 Sep, [facility] [address] [id number] [place] [address]- 0436 13 Aug, 2011 [facility] [address] [id number] [place] [address]- 1702 Aug, [facility] [place] [facility] [address] [id number] [place] [address]- 8793 Aug, [facility] [place] [facility] [address] [id number] [place] [address]- 6772 Jul, [facility] [place] [facility] [address] [id number] [place] [address]- 6484 Jul, [facility] [place] [facility] [address] [id number] [place] [address]- 5202 Jul, [facility] [place] [facility] [address] [id number] [place] [address]- 0172 Jul, [facility] [place] [facility] [address] [id number] [place] [address]- 3336 Jun, [facility] [place] [facility] [address] [id number] [place] [address]- 2097 Jun, [facility] [place] [facility] [address] [id number] [place] [address]- 5937 Jun, [facility] [place] [facility] [address] [id number] [place] [address]- 0869 Jun, [facility] [place] [facility] [address] [facility] [id number] [place] [address]- 6599 Jun, [facility] [place] [facility] [address] [id number] [place] [address]- 8666 Jun, [facility] [place] [facility] [address] [id number], [place] [address]- 6529 May, [facility] [place] [facility] [address] [id number] [place] [address]- 6428 May, [facility] [place] [facility] [address] [id number] [place] [address]- 5762 May, [facility] [place] [facility] [address] [id number] [place] [address]- 4751 Apr, [facility] [place] [facility] [address] [id number] [place] [address]- 0918 11 Jan, 2011 [facility] [address] [id number] [place] [address]- 4816 20 Jun, 2010 [facility] [address] [id number] [place] [address]- 5016 20 Jun, 2010 [facility] [address] [id number] [place] [address]- 9266 15 Jun, 2010 [facility] [address] [id number] [place] [address] 2546 15 Jun, 2010 [facility] [address] [id number] [place] [address]- 3436 15 Jun, 2010 [facility] [address] [id number] [place] [address]- 1426 13 Jun, 2010 [facility] [address] [id number] [place] [address]- 8245 13 Jun, 2010 [facility] [address] [id number] [place] [address]- 7656 Apr, [facility] [address] [id number] [place] [address]- 0659 17 Feb, 2010 [facility] [address] [id number] [place] [address]- 8227 15 Aug, 2009 [facility] [address] [id number] [place] [address]- 9555 18 Jul, 2009 [facility] [address] [id number] [place] [address]- 254 11 Jul, 2009 [facility] [address] [id number] [place] [address]- 4446 29 Jun, 2009 [facility] [place] [facility] [address] [id number] [place] [address]- 7716 28 Jun, 2009 [facility] [address] [id number] [place] 7979 Jun, [facility] [place] [facility] [address] [facility] [id number], [place] [address]- 9271 Jun, [facility] [address] [facility] [id number] 1046 Jun, [facility] [address] [facility] [id number], [place] [address] Jun, [facility] [address] [facility] [id number], [place] [address] Jun, [facility] [address] [facility] [id number], [place] [address] May, [facility] [address] [facility] [id number] [place] [id number][address] May, [facility] [address] [facility] [id number][place] [address] May, [facility] [id number], [place] [address] May, [facility] [address] [id number], [place] [address] May, [facility] [id number], [place] [address] May, [facility] [address] [id number] [address] [address] May, [facility] [id number], [place] [address] Apr, [facility] [address] [facility] [id number], [place] [address] Apr, [facility] [address] [facility] [id number], [place] [address] Jan, [facility] [address] [facility] [id number], [place] [address] Oct, IMMUNIZATIONS No Known Immunizations SOCIAL HISTORY Never Assessed REASON FOR VISIT medication refill PLAN OF CARE VITAL SIGNS MEDICATIONS Medication [...]
--- OUTSIDE RECORDS SUMMARY | 2018-11-09 12:43 | XMS REPORT ---
Author Author PRABHA HILL [facility] Address [address] [place] [address] Care Team Providers Care Food Services Director Name Role Phone PRABHA HILL Unavailable PROBLEMS Type Condition ICD9-CM Code [id number] Code Onset Dates Condition Status SNOMED Code Problem Hypoglycemia E16.2 Active 662880925 Problem Hallucinations R44.3 Active 5950415 Problem Unsteady gait R26.81 Active 13780716 Problem 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 Active [id number] Problem Dysuria R30.0 Active 59079984 Problem Anxiety F41.9 Active 08345816 Problem Dementia in other diseases classified elsewhere without behavioral disturbance F02.80 Active 055256817 Problem Other frontotemporal dementia G31.09 Active 934103712 Problem Parkinsons disease G20 Active 43087550 Problem Episodic cluster headache, not intractable G44.019 Active 940880581 Problem Neurogenic orthostatic hypotension G90.3 Active 624245265 Problem Mixed stress and urge urinary incontinence N39.46 Active 430005718 Problem 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 Active 635420997 Problem Essential hypertension I10 Active 74939476 Problem Type 2 diabetes mellitus with unspecified complications E11.8 Active 86388375 Problem PVD (peripheral vascular disease) I73.9 Active 106288363 Problem Dysthymia F34.1 Active 78845459 Problem Polydipsia R63.1 Active 07047734 Problem 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.10 Active 2264475211741 Problem Hypothyroidism (acquired) E03.9 Active 252744602 Problem Hyperlipemia, mixed E78.2 Active 201112407 Problem Dementia with Lewy bodies G31.83 Active 973552578 Problem Neuropathy G62.9 Active 005719452 Problem Hypernatremia E87.0 Active 34531119 ALLERGIES No Information ENCOUNTERS Encounter Location Date Diagnosis [facility] [address] [address]41- [address] 08 May, 2018 Parkinsons disease G20 [facility] [address] 895583- 3245 Apr, Dysuria R30.0 and Hypothyroidism (acquired) E03.9 [facility] [address] 77880- 7358 Apr, Dysuria R30.0 and Increased urinary frequency R35.0 [facility] [address] 28864- 0254 Apr, [facility] [address] 868279- 0193 Apr, Parkinsons disease G20 and Hypothyroidism (acquired) E03.9 [facility] [address] 43894- 3206 Apr, [facility] [address] 65409 -8797 05 Apr, 2018 Dysuria R30.0 and Cystitis N30.90 [facility] [address] 94116- 3283 28 Mar, 2018 Left shoulder pain M25.512 [facility] [address] 87435- 8842 Mar, [facility] [address] 04577- 3616 Mar, Hyperlipemia, mixed E78.2 ; Essential hypertension I10 and 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.10 [facility] [address] 00809- 4525 26 Mar, 2018 Type 2 diabetes mellitus with unspecified complications E11.8 [facility] [address] 95022- 0886 17 Mar, 2018 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 [facility] [id number] [place] [address] 50444- 7538 Mar, [facility] [id number] [place] [address] 91241- 0475 Mar, [facility] [id number] [place] [address] 08383- 7836 Mar, [facility] [address] 7[address]85- 1988 Mar, [facility] [id number] [place] [address] 09444- 7689 Mar, Cellulitis of left lower extremity L03.116 and Petechial rash R23.3 [facility] [id number] [place] [address] 49009- 5933 Feb, Left shoulder pain M25.512 [facility] [address] 32631- 6414 Feb, Left shoulder pain M25.512 [facility] [address] 14469- 8154 Feb, 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 [facility] [id number] [place] [address] 78682- 8995 Jan, Left shoulder pain M25.512 [facility] [id number] [place] [address] 84801- 1553 Dec, Parkinsons disease G20 [facility] [id number] [place] [address] 12598- 8636 Dec, Left shoulder pain M25.512 [facility] [address] 44217- 1013 Dec, Type 2 diabetes mellitus with unspecified complications E11.8 ; Anxiety F41.9 ; Therapeutic drug monitoring Z51.81 and Analgesic use Z79.899 [facility] [address] 93067- 9854 November, [facility] [id number] [place] [address] 66635- 1399 November, [facility] [id number] [place] [address] 59286- 3907 November, Left shoulder pain M25.512 [facility] [id number] [place] [address] 09297- 4619 Oct, [facility] [id number] [place] [address] 68499 -7647 Oct, [facility] [id number] [place] [address] 47941- 0933 Oct, Parkinsons disease G20 [facility] [id number] [place] [address] 37580 -0428 Oct, Acute cystitis without hematuria N30.00 and Viral upper respiratory tract infection J06.9 [facility] [id number] [place] [address] 40364- 8868 Oct, [facility] [id number] [place] [address] 96601- 9866 Oct, Type 2 diabetes mellitus with unspecified complications E11.8 [facility] [id number] [place] [address] 37214- 9286 Oct, Left shoulder pain M25.512 [facility] [id number] [place] [address] 92483- 0262 Oct, Type 2 diabetes mellitus with unspecified complications E11.8 ; Dysuria R30.0 and Neurogenic orthostatic hypotension G90.3 [facility] [id number] [place] [address] 85360- 7887 Sep, Left shoulder pain M25.512 [facility] [id number] [place] [address] 19811- 0342 Sep, Medicare annual wellness visit, initial Z00.00 ; Parkinsons disease G20 ; Type 2 diabetes mellitus with unspecified complications E11.8 ; Essential hypertension I10 ; 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.10 ; Hypothyroidism (acquired ) E03.9 ; PVD (peripheral vascular disease) I73.9 ; Dysthymia F34.1 ; Hyperlipemia, mixed E78.2 ; Neuropathy G62.9 ; Encounter for immunization Z23 ; Encounter for other screening for malignant neoplasm of breast Z12.39 and Mixed stress and urge urinary incontinence N39.46 [facility] [address] 89312- 9281 Aug, Parkinsons disease G20 [address] 32059- 5965 Aug, Type 2 diabetes mellitus with unspecified complications E11.8 ; Left shoulder pain M25.512 and Hypotensive episode I95.[address] 97635- 4023 Aug, 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.10 [facility] [address] 57390- 5712 Aug, Type 2 diabetes mellitus with unspecified complications E11.8 [facility] [address] 97098- 2349 Jul, Callus of foot L84 [facility] [address] 83233- 6308 Jul, [facility] [address] 39440- 5851 Jul, Callus of foot L84 ; Episodic cluster headache, not intractable G44.019 ; Type 2 diabetes mellitus with unspecified complications E11.8 and Parkinsons disease G20 [facility] [address] 00094- 2174 Jul, [facility] [address] 46361- 0243 Jul, [facility] [address] [place] [address] 70884- 8813 Jun, Type 2 diabetes mellitus with unspecified complications E11.8 ; Unsteady gait R26.81 ; Forgetfulness R68.89 and Hallucinations R44.3 [facility] [id number] [place] [address] 81758- 2831 Jun, [facility] [address] 15560- 7560 Jun, Left shoulder pain M25.512 [facility] [address] 07309- 2546 May, Hypernatremia E87.0 and Polydipsia R63.1 [facility] [id number] [place] [address] 53332- 4115 May, Hypernatremia E87.0 and Polydipsia R63.1 [facility] [id number] [place] [address] 85560- 4194 May, Hypoglycemia E16.2 ; Dysuria R30.0 ; Unsteadiness on feet R26.81 ; Forgetfulness R68.89 ; Type 2 diabetes mellitus with unspecified complications E11.8 and Yeast infection involving the vagina and surrounding area B37.3 [facility] [id number] [place] [address] 40840- 8872 May, Acute cystitis without hematuria N30.00 [facility] [id number] [place] [address] 35886 -6699 Apr, Dysuria R30.0 and Acute cystitis without hematuria N30.00 [facility] [facility] [address] 90383- 7150 Apr, Hypernatremia E87.0 and Polydipsia R63.1 [facility] [id number] [place] [address] 17818- 5991 Apr, Vertigo R42 and Type 2 diabetes mellitus with unspecified complications E11.8 [facility] [id number] [place] [address] 09051- 0368 20 Mar, 2017 [facility] [address] 24840- 5417 19 Mar, 2017 Left shoulder pain M25.512 [facility] [address] 86659- 6599 13 Mar, 2017 Vertigo R42 [facility] [address] 66574- 4009 12 Mar, 2017 Polydipsia R63.1 [facility] [address] 807157- 3181 12 Mar, 2017 Polydipsia R63.1 [facility] [address] 10500- 3559 11 Mar, 2017 Vertigo R42 [facility] [address] 23382- 8237 07 Mar, 2017 Type 2 diabetes mellitus with unspecified complications E11.8 ; Vertigo R42 ; Polydipsia R63.1 ; Polyuria R35.8 ; Hypothyroidism ( acquired) E03.9 ; Abnormal urinalysis R82.90 and Dysthymia F34.1 [facility] [id number] [place] [address] 39124- 9354 05 Mar, 2017 Coronary artery disease of viejas artery with stable angina pectoris, unspecified whether viejas or transplanted heart I25.118 ; Systolic CHF, chronic I50.22 ; Hyperlipemia, mixed E78.2 and Essential hypertension I10 [facility] [id number] [place] [address] [id number] 16 Feb, 2017 Dental caries K02.9 [facility] [id number] [place] [address] 34596- 9758 Feb, Type 2 diabetes mellitus with diabetic neuropathy, unspecified E11.40 [facility] [address] 22622- 9043 Dec, Left shoulder pain M25.512 [facility] [id number] [address]- 3919 16 Dec, 2016 [facility] [id number] [place] [address] 44090- 8226 Dec, Type 2 diabetes mellitus with unspecified complications E11.8 [facility] [address] [place] [address] [id number] Dec, Dental examination Z01.20 [facility] [id number] [place] [address] 74503- 0134 08 Dec, 2016 Type 2 diabetes mellitus with diabetic neuropathy, unspecified E11.40 [facility] [id number] [place] [address] 62609- 1473 Dec, [facility] [id number] [place] [address] 28386- 2038 Dec, Type 2 diabetes mellitus with diabetic neuropathy, unspecified E11.40 [facility] [address] [place] [address] 09213- 2371 November, Left shoulder pain M25.512 [facility] [id number] [place] [address] 66425- 7570 November, [facility] [id number] [place] [address] 98299- 6407 November, Type 2 diabetes mellitus with unspecified complications E11.8 and Dysuria R30.0 [facility] [address] [place] [address] 31885- 7934 Oct, Left shoulder pain M25.512 [facility] [id number] [place] [address] 31425- 5294 Sep, Left shoulder pain M25.512 [facility] [address] [address]- 2326 Sep, Pre-op testing Z01.818 [facility] [id number] [place] [address] 54008- 2537 Sep, Pre-op testing Z01.818 [facility] [address] 26833- 0389 Sep, Pre-op testing Z01.818 [facility] [address] 82168- 4484 Sep, Pre-op testing Z01.818 and Mouth pain K13.79 [facility] [address] 05976- 4190 03 Sep, 2016 Left shoulder pain M25.512 [facility] [facility] [address] 79043- 9263 08 Aug, 2016 Other eczema L30.8 [facility] [facility] [address] 74707- 8054 06 Aug, 2016 PVD (peripheral vascular disease) I73.9 ; Type 2 diabetes mellitus with unspecified complications E11.8 ; Acute cystitis with hematuria N30.01 ; Other eczema L30.8 ; Dysuria R30.0 and Left shoulder pain M25.512 [facility] [id number] [place] [address] 93386 -9729 Jul, Otalgia of right ear H92.01 and Blood in ear canal, right H92.21 [facility] [id number] [place] [address] 82154- 8137 Jul, Arthralgia, unspecified joint M25.50 ; PVD (peripheral vascular disease) I73.9 and Neuropathy G62.9 [facility] [address] [id number] [place] [address] 34868- 3645 Jul, [facility] [address] 73010- 5048 Jun, Medicare annual wellness visit, initial Z00.00 ; Cervicalgia M54.2 ; Radiculopathy of cervical region M54.12 ; Encounter for immunization Z23 ; Type 2 diabetes mellitus with unspecified complications E11.8 and Essential hypertension I10 [facility] [address] [address]- 0461 Jun, [facility] [id number] [place] [address] 52050- 3808 May, Hypothyroidism (acquired) E03.9 [facility] [id number] [place] [address] 60867- 7143 May, Dysuria R30.0 ; Essential hypertension I10 ; Hypothyroidism (acquired) E03.9 and PVD (peripheral vascular disease) I73.9 [facility] [id number] [place] [address] 46457 -9210 May, Burning with urination R30.0 and Acute cystitis with hematuria N30.01 [facility] [id number] [place] [address] 29366- 7877 May, Dental examination Z01.20 [facility] [id number] [place] [address] 63065- 9165 May, Hypothyroidism (acquired) E03.9 [facility] [id number] [place] [address] 42429- 4242 Feb, [facility] [id number] [place] [address] 86495- 7335 Feb, 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 ; PVD ( peripheral vascular disease) I73.9 ; Type 2 diabetes mellitus with unspecified complications E11.8 and Essential hypertension I10 [facility] [id number] [place] [address] 15330- 9800 Jan, [facility] [id number] [place] [address] 47703- 3220 Jan, Hypothyroidism (acquired) E03.9 [facility] [id number] [place] [address] 50034- 9749 Jan, [facility] [address] [place] [address]- 9584 Jan, [facility] [id number] [place] [address] 12242- 9003 Jan, Type 2 diabetes mellitus with unspecified complications E11.8 ; 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 and Essential ( primary) hypertension I10 [facility] [id number] [place] [address] 67579- 2604 Jan, Type 2 diabetes mellitus with unspecified complications E11.8 ; 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 ; Essential hypertension I10 and PVD (peripheral vascular disease) I73.9 [facility] [address] 50897- 5945 Jan, [facility] [id number] [place] [address] 33681- 1815 Jan, [facility] [id number] [place] [address] 55581- 0930 Jan, [facility] [id number] [place] [address] 71495- 7016 Jan, Weakness R53.1 ; Fatigue, unspecified type R53.83 ; PVD ( peripheral vascular disease) I73.9 ; Acute osteomyelitis of other site M86.18 ; Type 2 diabetes mellitus with diabetic neuropathy, unspecified E11.40 and residential 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.4 [facility] [facility] [id number] [place] [address] 92451- 3639 Dec, [facility] [id number] [place] [address] 79366- 2368 Dec, Type 2 diabetes mellitus with unspecified complications E11.8 [facility] [id number] [place] [address] 77179- 2780 Dec, [facility] [id number] [place] [address] 39160- 5416 Dec, Pressure ulcer, unspecified pressure ulcer stage L89.90 and Type 2 diabetes mellitus with unspecified complications E11.8 [facility] [id number] [place] [address] 18004 -1034 Dec, Toe infection L08.9 [place] [id number] [place] [address] 59862- 7864 November, Dental caries K02.9 [place] [address] 30471- 3340 November, [place] [address] 60327- 5551 November, Dental examination Z01.20 [place] [address] 70422- 1599 Sep, Lipoma of torso D17.1 and Thoracic neuritis M54.14 [place] [address] 41017- 5755 Sep, [place] [address] 85932- 9601 Aug, [facility] [id number] [place] [address] 75847 -0096 Jul, Dysuria R30.0 and UTI (urinary tract infection) N39.0 [place] [id number] [place] [address] 92706- 1164 Jun, Left shoulder pain M25.512 [facility] [id number] [place] [address] 88046- 2861 May, Shoulder pain, left M25.512 [facility] [place] [id number] [place] [address] 41079- 9409 May, [place] [address] 23503- 6679 May, [facility] [id number] [place] [address] 09973- 9633 May, Left shoulder pain M25.512 [place] [id number] [place] [address] 17532- 6951 May, [place] [address] 47637- 8183 Apr, Encounter for immunization Z23 [place] [address] 43991- 3140 Apr, Urinary tract infection, site not specified N39.0 ; Hypotension, unspecified I95.9 ; Type 2 diabetes mellitus with unspecified complications E11.8 and Generalized edema R60.1 [place] [address] 20243- 0017 Apr, [place] [address] 22194- 4964 Mar, Diabetes with other specified manifestations, type II or unspecified type, not stated as uncontrolled 250.80 [place] [address] 32104- 5253 Feb, Gout 274.9 and Diabetes 250.00 [place] [id number] [place] [address] 50148- 2213 Jan, [facility] [id number] [place] [address] 59882- 2833 November, CAD (coronary artery disease) 414.00 and CHF (congestive heart failure) 428.0 [place] [id number] [place] [address] 72138- 3132 Oct, [place] [id number] [place] [address] 35020- 7337 Oct, [place] [address] 55200- 2418 Oct, [place] [id number] [place] [address] 01697- 6087 Sep, [place] [address] 18974- 6325 Sep, [facility] [place] [facility] [address] [id number] [place] [address]- 2920 Sep, [facility] [place] [facility] [address] [facility] [id number] [place] [address]- 1333 Sep, [facility] [place] [facility] [address] [facility] [id number] [place] [address]- 4164 Aug, [facility] [place] [facility] [address] [facility] [id number] [place] [address]- 3166 Aug, 2014 [facility] [place] [facility] [address] [facility] [id number] [place] [address]- 7175 Aug, 2014 [facility] [place] [facility] [address] [facility] [id number] [place] [address]- 3420 Aug, 2014 [facility] [place] [facility] [address] [facility] [id number] [place] [address]- 0816 Aug, 2014 [facility] [place] [facility] [address] [facility] [id number] [place] [address]- 6005 Aug, [facility] [place] [facility] [address] [facility] [id number] [place] [address]- 3413 Aug, [facility] [place] [facility] [address] [facility] [id number] [place] [address]- 1154 Aug, [facility] [place] [facility] [address] [facility] [id number] [place] [address]- 7737 Jul, [facility] [place] [facility] [address] [facility] [id number], [place] [address]- 0680 Jul, [facility] [place] [facility] [address] [facility] [id number], [place] [address]- 4677 Jul, [facility] [place] [facility] [address] [facility] [id number], [place] [address]- 0546 Jul, [facility] [place] [facility] [address] [facility] [id number], [place] [address]- 6153 Jul, [facility] [place] [facility] [address] [id number] [place] [address]- 1959 Jul, [facility] [place] [facility] [address] [id number] [place] [address]- 6930 Jul, [facility] [place] [facility] [address] [id number] [place] [address]- 5933 Jul, [facility] [place] [facility] [address] [id number] [place] [address]- 6629 Jul, [facility] [place] [facility] [address] [id number] [place] [address] Jul, [facility] [place] [facility] [address] [id number] [place] [address] Jun, [facility] [place] [facility] [address] [id number] [place] [address] Jun, [facility] [place] [facility] [address] [id number] [place] [address] Jun, [facility] [place] [facility] [address] [id number] [place] [address] Jun, [facility] [place] [facility] [address] [id number] [place] [address] Jun, [facility] [place] [facility] [address] [id number] [place] [address] Jun, [facility] [place] [facility] [address] [id number] [place] [address] Jun, [facility] [place] [facility] [address] [id number] [place] [address] Jun, [facility] [place] [facility] [address] [id number] [place] [address] Jun, [facility] [place] [facility] [address] [id number] [place] [address] 02 Jun, 2014 [facility] [place] [facility] [address] [id number] [place] [address] May, [facility] [place] [facility] [address] [id number] [place] [address] 14 May, 2014 [facility] [place] [facility] [address] [id number] [place] [address] Mar, [facility] [place] [facility] [address] [id number] [place] [address] Mar, [facility] [place] [facility] [address] [id number] [place] [address] Mar, [facility] [place] [facility] [address] [id number] [place] [address] Mar, [facility] [place] [facility] [address] [id number] [place] [address] Feb, [facility] [place] [facility] [address] [id number] [place] [address] Feb, [facility] [place] [facility] [address] [id number] [place] [address] Feb, [facility] [place] [facility] [address] [id number] [place] [address] Jan, [facility] [place] [facility] [address] [id number] [place] [address] 10[address] Jan, [facility] [place] [facility] [address] [id number] [place] [address]- 4[address] Jan, [facility] [place] [facility] [address] [id number] [place] [address]- 5[address] Jan, [facility] [place] [facility] [address] [id number] [place] [address]- 2925 Jan, [facility] [place] [facility] [address] [id number] [place] [address]- 36[address] Jan, [facility] [place] [facility] [address] [id number] [place] [address]- 7618 Jan, [facility] [place] [facility] [address] [id number] [place] [address]- 4871 Jan, [facility] [place] [facility] [address] [id number] [place] [address]- 1377 Jan, [facility] [place] [facility] [address] [id number] [place] [address]- 2774 Jan, [facility] [place] [facility] [address] [id number] [place] [address]- 0693 Dec, [facility] [place] [facility] [address] [id number] [place] [address]- 1860 Dec, [facility] [place] [facility] [address] [id number] [place] [address]- 8528 November, [facility] [place] [facility] [address] [id number] [place] [address]- 0227 November, [facility] [place] [facility] [address] [id number] [place] [address]- 6[address] November, [facility] [place] [facility] [address] [id number] [place] [address]- 7294 November, [facility] [place] [facility] [address] [id number] [place] [address]- 2857 November, [facility] [place] [facility] [address] [id number] [place] [address]- 6769 November, [facility] [place] [facility] [address] [id number] [place] [address]- 9645 November, [facility] [place] [facility] [address] [id number] [place] [address]- 2433 Oct, [facility] [place] [facility] [address] [id number] [place] [address]- 7003 Oct, [facility] [place] [facility] [address] [id number] [place] [address] Sep, [facility] [place] [facility] [address] [id number] [place] [address]- 2195 Sep, [facility] [place] [facility] [address] [id number] [place] [address]- 1304 Sep, [facility] [place] [facility] [address] [id number] [place] [address]- 8453 Sep, [facility] [place] [facility] [address] [id number] [place] [address]- 1459 Sep, [facility] [place] [facility] [address] [id number] [place] [address]- 2385 Sep, [facility] [place] [facility] [address] [id number] [place] [address]- 3085 Sep, [facility] [place] [facility] [address] [id number] [place] [address]- 3789 Sep, [facility] [place] [facility] [address] [id number] [place] [address]- 1249 Sep, [facility] [place] [facility] [address] [id number] [place] [address]- 8018 Sep, [facility] [place] [facility] [address] [id number] [place] [address]- 4116 Aug, [facility] [place] [facility] [address] [id number] [place] [address]- 2009 Aug, [facility] [place] [facility] [address] [id number] [place] [address]- 1179 Jul, [facility] [place] [facility] [address] [id number] [place] [address]- 7164 Jul, [facility] [place] [facility] [address] [id number] [place] [address]- 0982 Jul, [facility] [place] [facility] [address] [id number] [place] [address]- 2418 Jul, [facility] [place] [facility] [address] [id number] [place] [address]- 5713 Jul, [facility] [place] [facility] [address] [id number], [place] [address]- 6193 Jul, [facility] [place] [facility] [address] [id number] [place] [address]- 7020 Jun, [facility] [place] [facility] [address] [id number] [place] [address] Jun, [facility] [place] [facility] [address] [facility] [id number] [place] [address] Jun, [facility] [place] [facility] [address] [id number] [place] [address]- 2229 Jun, [facility] [place] [facility] [address] [id number] [place] [address]- 9652 May, [facility] [place] [facility] [address] [id number] [place] [address]- 1009 May, [facility] [place] [facility] [address] [facility] [id number] [place] [address]- 6828 May, [facility] [place] [facility] [address] [id number] [place] [address]- 6357 May, [facility] [place] [facility] [address] [facility] [id number] [place] [address]- 0139 May, [facility] [place] [facility] [address] [facility] [id number] [place] [address]- 3318 Apr, [facility] [place] [facility] [address] [id number], [place] [address]- [address] 31 Apr, 2013 [facility] [place] [facility] [address] [id number], [place] [address]- 3256 Apr, [facility] [place] [facility] [address] [id number] [place] [address]- 4835 Apr, [facility] [place] [facility] [address] [facility] [id number] [place] [address]- 3028 Apr, [facility] [place] [facility] [address] [facility] [id number], [place] [address]- 7062 Apr, [facility] [place] [facility] [address] [id number] [place] [address]- 5747 Apr, [facility] [place] [facility] [address] [id number] [place] [address]- 9924 Apr, [facility] [place] [facility] [address] [id number] [place] [address] 2546 Apr, [facility] [place] [facility] [address] [id number] [place] [address]- 6932 Apr, [facility] [place] [facility] [address] [id number] [place] [address]- 5830 Apr, [facility] [place] [facility] [address] [id number] [place] [address]- 9503 Apr, [facility] [place] [facility] [address] [id number] [place] [address]- 3771 Mar, [facility] [place] [facility] [address] [id number] [place] [address]- 6748 Mar, [facility] [place] [facility] [address] [id number] [place] [address]- 0269 Feb, [facility] [place] [facility] [address] [id number] [place] [address]- 8541 Jan, [facility] [place] [facility] [address] [id number] [place] [address]- 8909 Jan, [facility] [place] [facility] [address] [id number] [place] [address]- 2542 Jan, [facility] [place] [facility] [address] [id number] [place] [address]- 2546 Jan, [facility] [place] [facility] [address] [id number] [place] [address]- 2546 Dec, [facility] [place] [facility] [address] [id number] [place] [address]- 2546 Dec, [facility] [place] [facility] [address] [id number] [place] [address]- 6275 Dec, [facility] [address] [id number] [place] [address]- 1446 Dec, [facility] [place] [facility] [address] [id number] [place] [address]- 8328 Dec, [facility] [place] [facility] [address] [id number] [place] [address]- 7509 Dec, [facility] [place] [facility] [address] [id number] [place] [address]- 1245 Dec, [facility] [place] [facility] [address] [id number] [place] [address]- 8463 November, [facility] [place] [facility] [address] [id number] [place] [address]- 7005 November, [facility] [place] [facility] [address] [id number] [place] [address]- 8578 November, [facility] [place] [facility] [address] [id number] [place] [address]- 5439 Oct, [facility] [place] [facility] [address] [id number] [place] [address]- 8978 Oct, [facility] [place] [facility] [address] [id number] [place] [address]- 1171 Oct, [facility] [place] [facility] [address] [id number] [place] [address]- 4458 Oct, [facility] [place] [facility] [address] [id number], [place] [address]- 7049 Oct, [facility] [place] [facility] [address] [id number] [place] [address]- 5470 Sep, [facility] [place] [facility] [address] [id number] [place] [address]- 4898 Sep, [facility] [place] [facility] [address] [id number] [place] [address]- 9802 Sep, [facility] [place] [facility] [address] [id number] [place] [address]- 1543 Sep, [facility] [address] [id number] [place] [address]- 0966 Aug, [facility] [place] [facility] [address] [id number] [place] [address] 2546 Aug, [facility] [address] [facility] [id number] [place] [address] 2546 Aug, [facility] [place] [facility] [address] [id number] [place] [address]- 2546 Aug, [facility] [address] [facility] [id number] [place] [address]- 7410 Jul, [facility] [address] [facility] [id number] [place] [address]- 7646 Jul, [facility] [id number] [place] [address]- 4516 Jun, [facility] [address] [facility] [id number] [place] [address]- 9370 Jun, [facility] [id number] [place] [address]- 2280 Jun, [facility] [address] [facility] [id number] [place] [address]- 0828 Jun, [facility] [place] [facility] [address] [facility] [id number] [place] [address] 2546 May, [facility] [address] [facility] [id number] [place] [address] 2541 May, [facility] [place] [facility] [address] [facility] [id number] [place] [address]- 2421 May, [facility] [place] [facility] [address] [facility] [id number] [place] [address]- 2546 May, [facility] [place] [facility] [address] [facility] [id number] [place] [address]- 0089 Apr, [facility] [place] [facility] [address] [id number] [place] [address]- 8810 Apr, [facility] [place] [facility] [address] [id number] [place] [address]- 3025 Apr, [facility] [place] [facility] [address] [id number] [place] 2344 Apr, [facility] [place] [facility] [address] [id number] [place] [address]- 8503 Apr, [facility] [place] [facility] [address] [id number] [place] [address]- 7021 Apr, [facility] [place] [facility] [address] [id number] [place] [address]- 4803 Apr, [facility] [place] [facility] [address] [id number] [place] [address]- 0603 Apr, [facility] [place] [facility] [address] [id number] [place] [address]- 0359 Apr, [facility] [place] [facility] [address] [id number] [place] [address]- 3964 Apr, [facility] [place] [facility] [address] [id number] [place] [address]- 0424 Feb, [facility] [place] [facility] [address] [id number], [place] [address]- 7927 Feb, [facility] [place] [facility] [address] [id number], [place] [address]- 3990 Jan, [facility] [place] [facility] [address] [id number] [place] [address]- 5590 Jan, [facility] [place] [facility] [address] [id number] [place] [address]- 3462 Jan, [facility] [place] [facility] [address] [id number], [place] [address]- 8573 Jan, [facility] [place] [facility] [address] [id number], [place] [address] 2546 Jan, [facility] [address] [id number] [place] [address]- 3717 Jan, [facility] [place] [facility] [address] [id number] [place] [address]- 1956 Dec, [facility] [place] [facility] [address] [id number] [place] [address]- 2856 November, [facility] [place] [facility] [address] [id number] [place] [address]- 7553 November, [facility] [address] [id number] [place] [address]- 0033 November, [facility] [place] [facility] [address] [id number] [place] [address]- 5074 Sep, [facility] [address] [id number] [place] [address]- 4868 Sep, [facility] [place] [facility] [address] [id number] [place] [address]- 8828 Sep, [facility] [address] [id number] [place] [address]- 1211 Sep, [facility] [place] [facility] [address] [id number] [place] [address]- 8580 Sep, [facility] [place] [facility] [address] [id number] [place] [address]- 9823 Sep, [facility] [place] [facility] [address] [id number] [place] [address]- 5730 Aug, [facility] [place] [facility] [address] [id number] [place] [address]- 4918 Aug, [facility] [place] [facility] [address] [id number] [place] [address]- 3686 Aug, [facility] [place] [facility] [address] [facility] [id number] [place] [address]- 6666 Jul, [facility] [place] [facility] [address] [id number] [place] [address]- 6238 Jul, [facility] [place] [facility] [address] [id number] [place] [address]- 0590 Jul, [facility] [place] [facility] [address] [id number] [place] [address]- 0433 Jul, [facility] [place] [facility] [address] [id number] [place] [address]- 2928 Jun, [facility] [place] [facility] [address] [id number] [place] [address]- 6580 Jun, [facility] [place] [facility] [address] [id number] [place] [address]- 6455 Jun, [facility] [place] [facility] [address] [id number] [place] [address]- 7253 Jun, [facility] [place] [facility] [address] [id number] [place] [address]- 9551 Jun, [facility] [place] [facility] [address] [id number] [place] [address]- 5049 Jun, [facility] [place] [facility] [address] [id number] [place] [address]- 4495 May, [facility] [place] [facility] [address] [id number] [place] [address]- 7662 May, [facility] [place] [facility] [address] [id number] [place] [address]- 7270 May, [facility] [place] [facility] [address] [id number] [place] [address]- 6189 Apr, [facility] [place] [facility] [address] [id number] [place] [address]- 9977 Jan, [facility] [place] [facility] [address] [id number] [place] [address]- 2798 Jun, [facility] [place] [facility] [address] [id number] [place] [address]- 9400 20 Jun, 2010 [facility] [address] [id number] [place] [address]- 7466 15 Jun, 2010 [facility] [place] [facility] [address] [id number] [place] [address]- 5616 15 Jun, 2010 [facility] [address] [facility] [id number] [place] [address] 2546 15 Jun, 2010 [facility] [place] [facility] [address] [id number] [place] [address] 2546 13 Jun, 2010 [facility] [address] [id number] [place] [address]- 5616 13 Jun, 2010 [facility] [address] [id number] [place] [address]- 4976 Apr, [facility] [address] [id number] [place] [address]- 9331 Feb, [facility] [place] [facility] [address] [id number], [place] [address]- 5833 15 Aug, 2009 [facility] [address] [id number], [place] [address]- 5421 18 Jul, 2009 [facility] [place] [facility] [address] [id number] [place] [address]- 8531 Jul, [facility] [address] [id number], [place] [address]- 9696 29 Jun, 2009 [facility] [place] [facility] [address] [id number], [place] [address] 2546 28 Jun, 2009 [facility] [place] [facility] [address] [id number] [place] [address] 2546 28 Jun, 2009 [facility] [place] [facility] [address] [id number] [place] [address]- 2546 22 Jun, 2009 [facility] [place] [facility] [address] [id number] [place] [address]- 2546 16 Jun, 2009 [facility] [place] [facility] [id number], [place] [address]- 2546 Jun, [facility] [id number], [place] [address]- 3766 Jun, [facility] [id number], [place] [address]- 3960 May, [facility] [id number], [place] [address]- 8743 May, [facility] [id number], [place] [address]- 9196 May, [facility] [id number] [place] [address]- 0107 May, [facility] [id number], [place] [address]- 4061 May, [facility] [id number] [place] [address]- 9410 May, [facility] [id number], [place] [address]- 1341 May, [facility] [id number], [place] [address]- 6076 Apr, [facility] [id number], [place] [address]- 8687 Apr, [facility] [id number], [place] [address]- 9330 Jan, [facility] [id number], [place] [address]- 3088 Oct, IMMUNIZATIONS No Known Immunizations SOCIAL HISTORY Never Assessed REASON FOR VISIT Refill request PLAN OF CARE VITAL SIGNS MEDICATIONS Medication Instructions Dosage Frequency Start Date End Date Duration Status Zoloft 50 MG Orally Once a day 1 tablet at bedtime 24h Mar, 30 days Active RESULTS No Results PROCEDURES No [...]
--- OUTSIDE RECORDS SUMMARY | 2018-11-09 12:44 | XMS REPORT ---
Author Author PRABHA [facility] Address [address] [place] [address] Care Team Providers Care Building Energy Retrofit Technician Name Role Phone PRABHA HILL Unavailable PROBLEMS Type Condition ICD9-CM Code XCM02-TQ Code Onset Dates Condition Status SNOMED Code Problem Hypoglycemia E16.2 Active 310663470 Problem Hallucinations R44.3 Active 5481004 Problem Unsteady gait R26.81 Active 94580432 Problem 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 Active [id number] Problem Dysuria R30.0 Active 84402262 Problem Anxiety F41.9 Active 22315561 Problem Dementia in other diseases classified elsewhere without behavioral disturbance F02.80 Active 247093573 Problem Other frontotemporal dementia G31.09 Active 002779575 Problem Parkinsons disease G20 Active 52057929 Problem Episodic cluster headache, not intractable G44.019 Active 759323782 Problem Neurogenic orthostatic hypotension G90.3 Active 044794737 Problem Mixed stress and urge urinary incontinence N39.46 Active 960864182 Problem 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 Active 742613367 Problem Essential hypertension I10 Active 03412283 Problem Type 2 diabetes mellitus with unspecified complications E11.8 Active 10705481 Problem PVD (peripheral vascular disease) I73.9 Active 206463039 Problem Dysthymia F34.1 Active 04692882 Problem Polydipsia R63.1 Active 12950390 Problem 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 Active 6301363529926 Problem Hypothyroidism (acquired) E03.9 Active 571746631 Problem Hyperlipemia, mixed E78.2 Active 393265639 Problem Dementia with Lewy bodies G31.83 Active 625784947 Problem Neuropathy G62.9 Active 636004226 Problem Hypernatremia E87.0 Active 82217104 ALLERGIES No Information ENCOUNTERS Encounter Location Date Diagnosis [facility] [address] [address] Apr, Dysuria R30.0 and Hypothyroidism (acquired) E03.9 [place] [address] 91156- 5986 Apr, Dysuria R30.0 and Increased urinary frequency R35.0 [place] [address] 07979- 6569 Apr, [place] [address] 43213- 1172 Apr, Parkinsons disease G20 and Hypothyroidism (acquired) E03.9 [place] [address] 96495- 2284 Apr, [facility] [address] 45257 [address]351 Apr, Dysuria R30.0 and Cystitis N30.90 [place] [address] 52176- 8952 28 Mar, 2018 Left shoulder pain M25.512 [place] [address] 53187- 5665 Mar, [place] [address] 96821- 3439 Mar, Hyperlipemia, mixed E78.2 ; Essential hypertension I10 and 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 [place] [address] 05407- 7188 Mar, Type 2 diabetes mellitus with unspecified complications E11.8 [place] [address] 72482- 6031 17 Mar, 2018 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 [place] [address] 50274- 0273 11 Mar, 2018 [place] [address] [place] [address] 04516- 9130 Mar, [facility] [address] [place] [id number] [place] [address] 13957- 9182 Mar, [facility] [id number] [place] [address] 26142- 4260 Mar, [place] [address] [id number] [place] [address] 36357- 9879 Mar, Cellulitis of left lower extremity L03.116 and Petechial rash R23.3 [place] [address] [id number] [place] [address] 88040- 3986 Feb, Left shoulder pain M25.512 [place] [address] [id number] [place] [address] 67223- 6563 Feb, Left shoulder pain M25.512 [place] [address] [id number] [place] [address] 42512- 7743 Feb, 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 [place] [address] [id number] [place] [address] 93138- 9905 Jan, Left shoulder pain M25.512 [place] [address] [id number] [place] [address] 75017- 8925 Dec, Parkinsons disease G20 [place] [address] [id number] [place] [address] 63571- 3900 Dec, Left shoulder pain M25.512 [place] [address] [place] [id number] [place] [address] 96281- 2439 Dec, Type 2 diabetes mellitus with unspecified complications E11.8 ; Anxiety F41.9 ; Therapeutic drug monitoring Z51.81 and Analgesic use Z79.899 [place] [address] [id number] [place] [address] 17566- 3936 November, [place] [address] 39124- 3131 November, [place] [address] [place] [id number] [place] [address] 64836- 7111 November, Left shoulder pain M25.512 [place] [address] [id number] [place] [address] 11746- 9299 Oct, [facility] [address] 45838 [address] Oct, [place] [address] 82012- 0989 Oct, Parkinsons disease G20 [facility] [place] [address] 08755 -5720 Oct, Acute cystitis without hematuria N30.00 and Viral upper respiratory tract infection J06.9 [place] [address] 48741- 4496 Oct, [place] [address] 68607- 5943 Oct, Type 2 diabetes mellitus with unspecified complications E11.8 [place] [address] 68036- 7026 Oct, Left shoulder pain M25.512 [place] [address] [place] [id number] [place] [address] 66472- 8082 Oct, Type 2 diabetes mellitus with unspecified complications E11.8 ; Dysuria R30.0 and Neurogenic orthostatic hypotension G90.3 [place] [address] [place] [id number] [place] [address] 02018- 3942 Sep, Left shoulder pain M25.512 [place] [address] 38691- 6904 Sep, Medicare annual wellness visit, initial Z00.00 ; Parkinsons disease G20 ; Type 2 diabetes mellitus with unspecified complications E11.8 ; Essential hypertension I10 ; 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 ; Hypothyroidism (acquired ) E03.9 ; PVD (peripheral vascular disease) I73.9 ; Dysthymia F34.1 ; Hyperlipemia, mixed E78.2 ; Neuropathy G62.9 ; Encounter for immunization Z23 ; Encounter for other screening for malignant neoplasm of breast Z12.39 and Mixed stress and urge urinary incontinence N39.46 [place] [address] 56548- 9197 Aug, Parkinsons disease G20 [place] [address] 69480- 9078 Aug, Type 2 diabetes mellitus with unspecified complications E11.8 ; Left shoulder pain M25.512 and Hypotensive episode I95.9 [place] [address] 54273- 4694 Aug, 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 [place] [address] 25083- 9462 Aug, Type 2 diabetes mellitus with unspecified complications E11.8 [place] [address] 42590- 4115 Jul, Callus of foot L84 [place] [address] 37781- 2347 Jul, [place] [address] 77307- 2651 Jul, Callus of foot L84 ; Episodic cluster headache, not intractable G44.019 ; Type 2 diabetes mellitus with unspecified complications E11.8 and Parkinsons disease G20 [place] [address] 32938- 5854 Jul, [place] [address] 23617- 8303 Jul, [place] [address] 97476- 2187 Jun, Type 2 diabetes mellitus with unspecified complications E11.8 ; Unsteady gait R26.81 ; Forgetfulness R68.89 and Hallucinations R44.3 [place] [address] [place] [id number] [place] [address] 50899- 0820 Jun, [facility] [address] [place] [address] [id number] [place] [address] 57358- 5163 Jun, Left shoulder pain M25.512 [place] [address] 17565- 9232 May, Hypernatremia E87.0 and Polydipsia R63.1 [place] [address] [place] [id number] [place] [address] 345201- 3502 May, Hypernatremia E87.0 and Polydipsia R63.1 [place] [address] [place] [id number] [place] [address] 42042- 8814 May, Hypoglycemia E16.2 ; Dysuria R30.0 ; Unsteadiness on feet R26.81 ; Forgetfulness R68.89 ; Type 2 diabetes mellitus with unspecified complications E11.8 and Yeast infection involving the vagina and surrounding area B37.3 [place] [address] [place] [id number] [place] [address] 51448- 2850 May, Acute cystitis without hematuria N30.00 [facility] [id number] [place] [address] 15439 -3891 Apr, Dysuria R30.0 and Acute cystitis without hematuria N30.00 [facility] [address] [address] [id number] [place] [address] 25207- 0648 Apr, Hypernatremia E87.0 and Polydipsia R63.1 [facility] [address] [id number] [place] [address] 08628- 4445 Apr, Vertigo R42 and Type 2 diabetes mellitus with unspecified complications E11.8 [place] [address] [place] [id number] [place] [address] 61297- 2713 Mar, [place] [address] [place] [id number] [place] [address] 16670- 3876 19 Mar, 2017 Left shoulder pain M25.512 [facility] [address] 15948- 4285 13 Mar, 2017 Vertigo R42 [facility] [address] 77769- 0812 12 Mar, 2017 Polydipsia R63.1 [place] [address] 98963- 6720 12 Mar, 2017 Polydipsia R63.1 [place] [address] 61370- 7498 11 Mar, 2017 Vertigo R42 [place] [address] 39592- 0092 07 Mar, 2017 Type 2 diabetes mellitus with unspecified complications E11.8 ; Vertigo R42 ; Polydipsia R63.1 ; Polyuria R35.8 ; Hypothyroidism ( acquired) E03.9 ; Abnormal urinalysis R82.90 and Dysthymia F34.1 [place] [address] [place] [id number] [place] [address] 43126- 6442 05 Mar, 2017 Coronary artery disease of catawba artery with stable angina pectoris, unspecified whether catawba or transplanted heart I25.118 ; Systolic CHF, chronic I50.22 ; Hyperlipemia, mixed E78.2 and Essential hypertension I10 [facility] [address] [place] [id number] [place] [address] [id number] Feb, Dental caries K02.9 [facility] [address] [id number] [place] [address] 13631- 2936 Feb, Type 2 diabetes mellitus with diabetic neuropathy, unspecified E11.40 [facility] [address] [address] [id number] [place] [address] 55676- 3678 Dec, Left shoulder pain M25.512 [place] [address] 48218- 7182 Dec, [facility] [address] [address]- 0972 Dec, Type 2 diabetes mellitus with unspecified complications E11.8 [facility] [address] [address] 15 Dec, 2016 Dental examination Z01.20 [facility] [address] [place] [address] 83449- 8681 08 Dec, 2016 Type 2 diabetes mellitus with diabetic neuropathy, unspecified E11.40 [facility] [address] [id number] [place] [address] 05382- 5264 Dec, [facility] [address] [id number] [place] [address] 28933- 9567 Dec, Type 2 diabetes mellitus with diabetic neuropathy, unspecified E11.40 [facility] [address] [place] [address] 40375- 3475 November, Left shoulder pain M25.512 [facility] [address] [id number] [place] [address] 63707- 5428 November, [facility] [address] [id number] [place] [address] 07745- 3711 November, Type 2 diabetes mellitus with unspecified complications E11.8 and Dysuria R30.0 [facility] [address] [place] [address] 28868- 2171 Oct, Left shoulder pain M25.512 [facility] [address] [address]- 4196 Sep, Left shoulder pain M25.512 [facility] [address] [id number] [place] [address] 15222- 9726 Sep, Pre-op testing Z01.818 [facility] [address] [address]- 6673 Sep, Pre-op testing Z01.818 [facility] [address] [id number] [place] [address] 80695- 8080 08 Sep, 2016 Pre-op testing Z01.818 [place] [address] 11251- 5893 08 Sep, 2016 Pre-op testing Z01.818 and Mouth pain K13.79 [place] [address] 38034- 2139 Sep, Left shoulder pain M25.512 [place] [address] [place] [id number] [place] [address] 46954- 5294 08 Aug, 2016 Other eczema L30.8 [place] [address] 25199- 3833 06 Aug, 2016 PVD (peripheral vascular disease) I73.9 ; Type 2 diabetes mellitus with unspecified complications E11.8 ; Acute cystitis with hematuria N30.01 ; Other eczema L30.8 ; Dysuria R30.0 and Left shoulder pain M25.512 [facility] [address] 49333 -1875 Jul, Otalgia of right ear H92.01 and Blood in ear canal, right H92.21 [place] [address] [place] [id number] [place] [address] 73945- 9848 Jul, Arthralgia, unspecified joint M25.50 ; PVD (peripheral vascular disease) I73.9 and Neuropathy G62.9 [place] [address] [place] [id number] [place] [address] 19354- 6946 Jul, [place] [address] 80691- 8371 Jun, Medicare annual wellness visit, initial Z00.00 ; Cervicalgia M54.2 ; Radiculopathy of cervical region M54.12 ; Encounter for immunization Z23 ; Type 2 diabetes mellitus with unspecified complications E11.8 and Essential hypertension I10 [place] [address] [place] [id number] [place] [address] 50337- 6045 Jun, [facility] [address] [id number] [place] [address] 44201- 7243 May, Hypothyroidism (acquired) E03.9 [facility] [address] [id number] [place] [address] 79424- 3431 May, Dysuria R30.0 ; Essential hypertension I10 ; Hypothyroidism (acquired) E03.9 and PVD (peripheral vascular disease) I73.9 [facility] [address] [id number] [place] [address] 73534 -5781 May, Burning with urination R30.0 and Acute cystitis with hematuria N30.01 [facility] [address] 95505- 6457 May, Dental examination Z01.20 [facility] [address] 53512- 3419 May, Hypothyroidism (acquired) E03.9 [facility] [id number] [place] [address] 80847- 5081 Feb, [facility] [address] 09432- 2512 Feb, 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 ; PVD ( peripheral vascular disease) I73.9 ; Type 2 diabetes mellitus with unspecified complications E11.8 and Essential hypertension I10 [facility] [id number] [place] [address] 14655- 8702 Jan, [facility] [id number] [place] [address] 49473- 7082 Jan, Hypothyroidism (acquired) E03.9 [facility] [id number] [place] [address] 67270- 5364 Jan, [facility] [id number] [place] [address] 05968- 6795 Jan, [facility] [id number] [place] [address] 68597- 6965 Jan, Type 2 diabetes mellitus with unspecified complications E11.8 ; 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 and Essential ( primary) hypertension I10 [place] [address] [id number] [place] [address] 55197- 0360 Jan, Type 2 diabetes mellitus with unspecified complications E11.8 ; 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 ; Essential hypertension I10 and PVD (peripheral vascular disease) I73.9 [place] [address] [id number] [place] [address] 41660- 1675 Jan, [place] [address] [id number] [place] [address] 17517- 0990 Jan, [place] [address] [id number] [place] [address] 43887- 9497 Jan, [place] [address] [id number] [place] [address] 51710- 7556 Jan, Weakness R53.1 ; Fatigue, unspecified type R53.83 ; PVD ( peripheral vascular disease) I73.9 ; Acute osteomyelitis of other site M86.18 ; Type 2 diabetes mellitus with diabetic neuropathy, unspecified E11.40 and senior care 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.4 [place] [address] [place] [address] 97255- 3266 Dec, [place] [address] [id number] [place] [address] 70617- 4836 Dec, Type 2 diabetes mellitus with unspecified complications E11.8 [place] [address] [address] [id number] [place] [address] 75887- 9712 Dec, [place] [address] [address] [id number] [place] [address] 76296- 0899 Dec, Pressure ulcer, unspecified pressure ulcer stage L89.90 and Type 2 diabetes mellitus with unspecified complications E11.8 [facility] [id number] [place] [address] 23359 -2517 Dec, Toe infection L08.9 [facility] [id number] [place] [address] 00474- 9724 November, Dental caries K02.9 [facility] [id number] [place] [address] 37319- 3619 November, [facility] [address] 24153- 3769 November, Dental examination Z01.20 [place] [address] 96151- 4276 Sep, Lipoma of torso D17.1 and Thoracic neuritis M54.14 [place] [address] 95542- 9891 Sep, [place] [address] 46819- 9160 Aug, [facility] [id number] [place] [address] 75062 -1702 Jul, Dysuria R30.0 and UTI (urinary tract infection) N39.0 [place] [id number] [place] [address] 34168- 1869 Jun, Left shoulder pain M25.512 [place] [id number] [place] [address] 24389- 4010 May, Shoulder pain, left M25.512 [place] [id number] [place] [address] 94094- 1521 May, [facility] [id number] [place] [address] 37670- 5457 May, [place] [address] 13813- 6202 May, Left shoulder pain M25.512 [place] [id number] [place] [address] 96609- 3718 May, [place] [id number] [place] [address] 82538- 9556 Apr, Encounter for immunization Z23 [place] [address] 32487- 6170 Apr, Urinary tract infection, site not specified N39.0 ; Hypotension, unspecified I95.9 ; Type 2 diabetes mellitus with unspecified complications E11.8 and Generalized edema R60.1 [place] [address] 67965- 5689 Apr, [place] [address] 43047- 9940 Mar, Diabetes with other specified manifestations, type II or unspecified type, not stated as uncontrolled 250.80 [place] [address] 74524- 0485 Feb, Gout 274.9 and Diabetes 250.00 [place] [address] 14203- 1200 Jan, [place] [address] 31375- 1500 November, CAD (coronary artery disease) 414.00 and CHF (congestive heart failure) 428.0 [place] [id number] [place] [address] 66548- 0259 Oct, [place] [id number] [place] [address] 66118- 4555 Oct, [facility] [id number] [place] [address] 18287- 1157 Oct, [facility] [address] 75338- 4164 Sep, [facility] [id number] [place] [address] 44047- 2165 Sep, [facility] [address] 92357- 4221 Sep, [facility] [place] [facility] [address] [id number] [place] [address]- 5163 Sep, [facility] [place] [facility] [address] [id number] [place] [address]- 2262 Aug, [facility] [place] [facility] [address] [id number] [place] [address]- 5761 Aug, 2014 [facility] [place] [facility] [address] [id number] [place] [address]- 9887 Aug, 2014 [facility] [place] [facility] [address] [id number] [place] [address]- 9530 Aug, [facility] [place] [facility] [address] [id number] [place] [address]- 5477 Aug, 2014 [facility] [place] [facility] [address] [id number] [place] [address]- 2890 Aug, [facility] [place] [facility] [address] [id number] [place] [address]- 4571 Aug, [facility] [place] [facility] [address] [id number] [place] [address]- 4347 Aug, [facility] [place] [facility] [address] [id number] [place] [address]- 3979 Jul, [facility] [place] [facility] [address] [id number] [place] [address]- 0581 Jul, [facility] [place] [facility] [address] [id number] [place] [address]- 5956 Jul, [facility] [place] [facility] [address] [id number] [place] [address]- 5506 Jul, [facility] [place] [facility] [address] [id number] [place] [address]- 2581 Jul, [facility] [place] [facility] [address] [id number] [place] [address]- 0911 Jul, [facility] [place] [facility] [address] [id number] [place] [address]- 6057 Jul, [facility] [address] [id number] [place] [address]- 1668 Jul, [facility] [place] [facility] [address] [id number] [place] [address]- 2384 Jul, [facility] [address] [id number] [place] [address]- 0039 Jul, [facility] [address] [id number] [place] [address]- 0346 Jun, [facility] [address] [id number] [place] [address]- 7800 Jun, [facility] [address] [id number] [place] [address]- 8699 Jun, [facility] [address] [id number] [place] [address]- 4103 Jun, [facility] [address] [id number] [place] [address]- 1314 Jun, [facility] [address] [id number] [place] [address]- 0383 Jun, [facility] [address] [id number] [place] [address]- 2072 Jun, [facility] [place] [facility] [address] [id number] [place] [address]- 6876 Jun, [facility] [place] [facility] [address] [id number] [place] [address]- 9554 Jun, [facility] [place] [facility] [address] [id number] [place] [address]- 9709 Jun, [facility] [place] [facility] [address] [id number] [place] [address]- 6100 May, [facility] [place] [facility] [address] [id number] [place]- 7440 May, [facility] [place] [facility] [address] [id number] [place] [address] Mar, [facility] [place] [facility] [address] [id number] [place] [address] Mar, [facility] [place] [facility] [address] [id number] [place] [address] Mar, [facility] [place] [facility] [address] [id number] [place] [address] Mar, [facility] [place] [facility] [address] [id number] [place] [address] Feb, [facility] [place] [facility] [address] [id number] [place] [address] Feb, [facility] [place] [facility] [address] [id number] [place] [address] Feb, [facility] [place] [facility] [address] [id number] [place] [address] Jan, [facility] [place] [facility] [address] [id number] [place] [address] Jan, [facility] [place] [facility] [address] [id number] [place] [address] Jan, [facility] [place] [facility] [address] [id number] [place] [address] Jan, [facility] [place] [facility] [address] [id number] [place] [address] Jan, [facility] [place] [facility] [address] [id number] [place] [address] Jan, [facility] [place] [facility] [address] [id number] [place] [address] Jan, [facility] [place] [facility] [address] [id number] [place] [address] Jan, [facility] [place] [facility] [address] [id number] [place] [address] Jan, [facility] [place] [facility] [address] [id number] [place] [address] Jan, [facility] [place] [facility] [address] [id number] [place] [address] 9[address] Dec, [facility] [place] [facility] [address] [id number] [place] [address] Dec, [facility] [place] [facility] [address] [id number] [place] [address]148 November, [facility] [place] [facility] [address] [id number] [place] [address] 2286 November, [facility] [place] [facility] [address] [id number] [place] [address]151 November, [facility] [place] [facility] [address] [id number] [place] [address] 7318 November, [facility] [place] [facility] [address] [id number] [place] [address] 1617 November, [facility] [place] [facility] [address] [id number] [place] [address] 8963 November, [facility] [place] [facility] [address] [id number] [place] [address] 5865 November, [facility] [place] [facility] [address] [id number] [place] [address] 26[address] Oct, [facility] [place] [facility] [address] [id number] [place] [address] 5021 Oct, [facility] [place] [facility] [address] [id number] [place] [address] 5767 Sep, [facility] [place] [facility] [address] [id number] [place] [address] 4937 Sep, [facility] [place] [facility] [address] [id number] [place] [address] 4714 Sep, [facility] [place] [facility] [address] [id number] [place] [address] 1350 Sep, [facility] [place] [facility] [address] [id number] [place] [address]- 0884 Sep, [facility] [place] [facility] [address] [id number] [place] [address]- 1334 Sep, [facility] [place] [facility] [address] [id number] [place] [address]- 7975 Sep, [facility] [place] [facility] [address] [id number] [place] [address]- 0148 Sep, [facility] [place] [facility] [address] [id number] [place] [address]- 1233 Sep, [facility] [place] [facility] [address] [id number] [place] [address]- 8679 Sep, [facility] [place] [facility] [address] [id number] [place] [address]- 2493 Aug, [facility] [place] [facility] [address] [id number] [place] [address]- 6872 Aug, [facility] [place] [facility] [address] [id number] [place] [address]- 9528 Jul, [facility] [place] [facility] [address] [id number] [place] [address]- 6934 Jul, [facility] [place] [facility] [address] [id number] [place] [address]- 8978 Jul, [facility] [place] [facility] [address] [id number] [place] [address]- 0802 Jul, [facility] [place] [facility] [address] [id number] [place] [address]- 7436 Jul, [facility] [place] [facility] [address] [id number] [place] [address]- 4880 Jul, [facility] [place] [facility] [address] [id number] [place] [address]- 0019 06 Jun, 2013 [facility] [place] [facility] [address] [id number] [place] [address]- 6624 06 Jun, 2013 [facility] [place] [facility] [address] [id number] [place] [address]- 1652 Jun, [facility] [place] [facility] [address] [id number] [place] [address]- 5929 Jun, [facility] [place] [facility] [address] [id number] [place] [address]- 5089 May, [facility] [place] [facility] [address] [id number] [place] [address]- 2671 May, [facility] [place] [facility] [address] [id number], [place] [address] 6940 May, [facility] [place] [facility] [address] [id number] [place] [address]- 0267 May, [facility] [place] [facility] [address] [id number], [place] [address]- 2347 May, [facility] [place] [facility] [address] [id number], [place] [address] 7[address] Apr, [facility] [place] [facility] [address] [id number] [place] [address]- 2462 Apr, [facility] [place] [facility] [address] [id number], [place] [address]- 8112 Apr, [facility] [place] [facility] [address] [id number], [place] [address]- 0828 Apr, [facility] [place] [facility] [address] [id number] [place] [address]- 8995 Apr, [facility] [place] [facility] [address] [id number], [place] [address]- 4948 Apr, [facility] [place] [facility] [address] [id number], [place] [address]- 2759 Apr, [facility] [place] [facility] [address] [id number] [place] [address]- 2062 Apr, [facility] [address] [id number] [place] [address]- 1611 Apr, [facility] [address] [id number] [place] [address]- 2910 Apr, [facility] [address] [id number] [place] [address]- 0191 Apr, [facility] [address] [id number] [place] [address]- 0207 Apr, [facility] [address] [id number] [place] [address]- 1302 Mar, [facility] [address] [id number] [place] [address]- 9489 Mar, [facility] [address] [id number] [place] [address]- 4363 Feb, [facility] [address] [id number] [place] [address]- 6238 Jan, [facility] [address] [id number] [place] [address]- 0935 Jan, [facility] [address] [id number] [place] [address]- 3196 Jan, [facility] [place] [facility] [address] [id number] [place] [address]- 5176 Jan, [facility] [place] [facility] [address] [id number] [place] [address]- 6152 Dec, [facility] [place] [facility] [address] [id number] [place] [address]- 0651 Dec, [facility] [place] [facility] [address] [id number] [place] [address] 1881 Dec, [facility] [place] [facility] [address] [id number] [place] [address]- 6570 Dec, [facility] [place] [facility] [address] [id number] [place] [address]- 9576 10 Dec, 2012 [facility] [address] [id number] [place] [address]- 3763 Dec, [facility] [address] [id number] [place] [address]- 3502 Dec, [facility] [address] [id number] [place] [address]- 0867 November, [facility] [address] [id number] [place] [address]- 8229 November, [facility] [address] [id number] [place] [address]- 3766 November, [facility] [address] [id number] [place] [address]- 3925 Oct, [facility] [address] [id number] [place] [address]- 3479 Oct, [facility] [address] [id number] [place] [address]- 2451 Oct, [facility] [address] [id number] [place] [address]- 6129 Oct, [facility] [address] [id number] [place] [address]- 6183 Oct, [facility] [place] [facility] [address] [id number], [place] [address]- 8399 Sep, [facility] [place] [facility] [address] [id number] [place] [address]- 6435 Sep, [facility] [place] [facility] [address] [id number] [place] [address]- 4996 13 Sep, 2012 [facility] [place] [facility] [address] [id number] [place] [address]- 6730 Sep, [facility] [place] [facility] [address] [id number] [place] [address]- 9440 Aug, [facility] [address] [id number] [place] [address] 2546 Aug, [facility] [place] [facility] [address] [id number] [place] [address]- 7096 Aug, [facility] [place] [facility] [address] [facility] [id number] [place] [address]- 7436 Aug, [facility] [place] [facility] [address] [id number] [place] [address]- 2763 Jul, [facility] [address] [id number] [place] [address]- 2099 Jul, [facility] [place] [facility] [address] [facility] [id number] [place] [address]- 6893 Jun, [facility] [address] [facility] [id number] [place] [address]- 6263 Jun, [facility] [place] [facility] [address] [facility] [id number] [place] [address]- 3835 Jun, [facility] [place] [facility] [address] [facility] [id number] [place] [address]- 8291 Jun, [facility] [place] [facility] [address] [facility] [id number] [place] [address]- 0579 May, [facility] [place] [facility] [address] [facility] [id number] [place] [address]- 0976 May, [facility] [place] [facility] [address] [facility] [id number], [place] [address] 2549 May, [facility] [place] [facility] [address] [facility] [id number] [place] [address]- 2214 May, [facility] [place] [facility] [address] [facility] [id number] [place] [address] Apr, [facility] [place] [facility] [address] [facility] [id number] [place] Apr, [facility] [place] [facility] [address] [id number] [place] [address]- 6212 Apr, [facility] [place] [facility] [address] [id number] [place] [address]- 2099 Apr, [facility] [place] [facility] [address] [id number] [place] [address]- 8353 Apr, [facility] [place] [facility] [address] [id number] [place] [address]- 7651 Apr, [facility] [place] [facility] [address] [id number] [place] [address]- 3077 Apr, [facility] [place] [facility] [address] [id number] [place] [address]- 9396 Apr, [facility] [place] [facility] [address] [id number] [place] [address]- 6967 Apr, [facility] [place] [facility] [address] [id number] [place] [address]- 6784 Apr, [facility] [place] [facility] [address] [id number] [place] [address]- 5720 Feb, [facility] [place] [facility] [address] [id number] [place] [address]- 7392 Feb, [facility] [place] [facility] [address] [id number] [place] [address]- 1599 Jan, [facility] [place] [facility] [address] [id number] [place] [address]- 1591 Jan, [facility] [place] [facility] [address] [id number] [place] [address]- 3558 Jan, [facility] [place] [facility] [address] [id number] [place] [address]- 8224 Jan, [facility] [place] [facility] [address] [id number] [place] [address]- 1601 Jan, [facility] [place] [facility] [address] [id number] [place] [address]- 1539 Jan, [facility] [place] [facility] [address] [id number] [place] [address]- 5548 Dec, [facility] [place] [facility] [address] [id number] [place] [address]- 8666 November, [facility] [place] [facility] [address] [id number] [place] [address]- 5106 November, [facility] [place] [facility] [address] [id number] [place] [address]- 3326 November, [facility] [place] [facility] [address] [id number] [place] [address]- 1469 Sep, [facility] [place] [facility] [address] [id number] [place] [address]- 4811 Sep, [facility] [place] [facility] [address] [id number] [place] [address]- 7196 Sep, [facility] [place] [facility] [address] [id number] [place] [address]- 1593 Sep, [facility] [place] [facility] [address] [id number] [place] [address]- 5495 Sep, [facility] [place] [facility] [address] [id number] [place] [address]- 8675 Sep, [facility] [place] [facility] [address] [id number] [place] [address]- 6388 Aug, [facility] [place] [facility] [address] [id number] [place] [address]- 5509 Aug, [facility] [place] [facility] [address] [id number] [place] [address]- 1016 Aug, [facility] [place] [facility] [address] [id number] [place] [address]- 6316 Jul, [facility] [place] [facility] [address] [id number] [place] [address]- 3886 Jul, [facility] [place] [facility] [address] [id number] [place] [address]- 2824 10 Jul, 2011 [facility] [address] [id number] [place] [address]- 9827 Jul, [facility] [address] [id number] [place] [address]- 8689 Jun, [facility] [address] [id number] [place] [address]- 3909 Jun, [facility] [address] [id number] [place] [address]- 4905 Jun, [facility] [address] [id number] [place] [address]- 9153 Jun, [facility] [address] [id number] [place] [address]- 8813 Jun, [facility] [address] [id number] [place] [address]- 4192 Jun, [facility] [address] [id number] [place] [address]- 7762 May, [facility] [address] [id number] [place] [address]- 6418 May, [facility] [address] [id number] [place] [address]- 6335 May, [facility] [address] [id number] [place] [address]- 7587 Apr, [facility] [address] [id number] [place] [address]- 2815 Jan, [facility] [place] [facility] [address] [id number] [place] [address]- 1012 Jun, [facility] [place] [facility] [address] [id number] [place] [address]- 4672 Jun, [facility] [address] [id number] [place] [address]- 5089 Jun, [facility] [address] [id number] [place] [address]- 8374 15 Jun, 2010 [facility] [place] [facility] [address] [id number] [place] [address]- 3436 15 Jun, 2010 [facility] [address] [id number] [place] [address]- 7496 13 Jun, 2010 [facility] [place] [facility] [address] [id number] [place] [address] 2546 13 Jun, 2010 [facility] [address] [id number] [place] [address]- 5113 21 Apr, 2010 [facility] [address] [id number] [place] [address]- 4216 17 Feb, 2010 [facility] [address] [id number] [place] [address]- 7841 15 Aug, 2009 [facility] [address] [id number] [place] [address]- 7558 18 Jul, 2009 [facility] [address] [id number] [place] [address]- 8810 11 Jul, 2009 [facility] [address] [id number] [place] [address]- 3750 29 Jun, 2009 [facility] [place] [facility] [address] [id number] [place] [address] 2547 28 Jun, 2009 [facility] [place] [facility] [address] [id number], [place] [address] 2547 28 Jun, 2009 [facility] [place] [facility] [address] [id number] [place] [address]- 8476 22 Jun, 2009 [facility] [place] [facility] [address] [id number] [place] [address] 2546 16 Jun, 2009 [facility] [place] [facility] [address] [id number] [place] [address]- 6380 09 Jun, 2009 [facility] [place] [facility] [id number], [place] [address]- 3672 Jun, [facility] [id number] [place] [address]75- 7253 May, [facility] [id number] [place] [address] 93314- 4203 May, [facility] [id number] [place] [address] 88816- 9295 May, [facility] [id number] [place] [address] 80469- 1286 May, [facility] [id number] [place] [address] 68484- 8700 May, [facility] [id number] [place] [address] 34774- 6687 May, [facility] [id number] [place] [address] 04878- 2614 May, [facility] [id number] [place] [address] 73670- 1760 Apr, [facility] [id number] [place] [address] 39686- 8250 Apr, [facility] [id number] [place] [address] 20135- 6982 Jan, [facility] [id number] [place] [address] 80635- 5705 Oct, IMMUNIZATIONS No Known Immunizations SOCIAL HISTORY Never Assessed REASON FOR VISIT lab PLAN OF CARE Activity Details Pending Test CULTURE, URINE VITAL SIGNS MEDICATIONS Unknown Medications RESULTS Name Result Date Reference Range UA W/CULTURE IF INDICATED (IN HOUSE) 2018-05-26 Lot # [id number] Exp date 23 February 2019 Clarity clear Color yellow Odor no GLU Negative VALENCIA Negative KET Negative SG 1.020 BLO TRACE-intact pH 7.5 Protein TRACE URO 0.2 NIT Negative TA TRACE Lot # [id number] Exp date Jun 2018 PROCEDURES Procedure Date Ordered Result Body Site LAB NOT BILLED BY [facility] May 26, 2018 URINALYSIS, AUTO, W/O SCOPE May 26, 2018 INSTRUCTIONS MEDICATIONS ADMINISTERED No Known Medications [...]
[2018-11-09] MEDS ORDERED: TETANUS,DIPTH,PERTUSS P/F (BOOSTRIX) 0.5 ML VIAL IM ONE (12:45)
--- OUTSIDE RECORDS SUMMARY | 2018-11-09 12:45 | XMS REPORT ---
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 Name Role Phone PRABHA HILL Unavailable PROBLEMS Type Condition ICD9-CM Code [id number] Code Onset Dates Condition Status SNOMED Code Problem Hypoglycemia E16.2 Active 033917546 Problem Hallucinations R44.3 Active 5559148 Problem Unsteady gait R26.81 Active 39250293 Problem 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 Active 126289605912179 Problem Dysuria R30.0 Active 87321892 Problem Anxiety F41.9 Active 70470865 Problem Dementia in other diseases classified elsewhere without behavioral disturbance F02.80 Active 832024760 Problem Other frontotemporal dementia G31.09 Active 645201161 Problem Parkinsons disease G20 Active 45434595 Problem Episodic cluster headache, not intractable G44.019 Active 990465024 Problem Neurogenic orthostatic hypotension G90.3 Active 992046064 Problem Mixed stress and urge urinary incontinence N39.46 Active 977291545 Problem 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 Active 565840752 Problem Essential hypertension I10 Active 59816688 Problem Type 2 diabetes mellitus with unspecified complications E11.8 Active 46398967 Problem PVD (peripheral vascular disease) I73.9 Active 413856833 Problem Dysthymia F34.1 Active 61487115 Problem Polydipsia R63.1 Active 16389947 Problem 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 Active 2021673730632 Problem Hypothyroidism (acquired) E03.9 Active 552056934 Problem Hyperlipemia, mixed E78.2 Active 540366269 Problem Dementia with Lewy bodies G31.83 Active 271760345 Problem Neuropathy G62.9 Active 570442552 Problem Hypernatremia E87.0 Active 48331485 ALLERGIES No Information ENCOUNTERS Encounter Location Date Diagnosis [facility] [address] [address]- [address]5 Apr, Dysuria R30.0 and Hypothyroidism (acquired) E03.9 [place] [address] 43401- 0881 Apr, Dysuria R30.0 and Increased urinary frequency R35.0 [place] [address] 43547- 3308 Apr, [place] [address] 42422- 6293 Apr, Parkinsons disease G20 and Hypothyroidism (acquired) E03.9 [place] [address] 83689- 7323 Apr, [facility] [address] 95337 -9603 Apr, Dysuria R30.0 and Cystitis N30.90 [place] [address] 93262- 1703 28 Mar, 2018 Left shoulder pain M25.512 [place] [address] 91364- 8963 Mar, [place] [address] 54675- 3603 Mar, Hyperlipemia, mixed E78.2 ; Essential hypertension I10 and 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 [place] [address] 11732- 4266 Mar, Type 2 diabetes mellitus with unspecified complications E11.8 [place] [address] 05042- 8956 17 Mar, 2018 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 [place] [address] 17745- 9331 11 Mar, 2018 [place] [id number] [place] [address] 46478- 0815 Mar, [facility] [address] [place] [id number] [place] [address] 02388- 4271 Mar, [facility] [address] [place] [id number] [place] [address] 09716- 4749 Mar, [place] [address] [place] [id number] [place] [address] 87141- 1158 Mar, Cellulitis of left lower extremity L03.116 and Petechial rash R23.3 [place] [address] [place] [id number] [place] [address] 61720- 5053 Feb, Left shoulder pain M25.512 [place] [address] [place] [id number] [place] [address] 42933- 4725 Feb, Left shoulder pain M25.512 [place] [address] [place] [id number] [place] [address] 26028- 2561 Feb, 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 [place] [address] [place] [id number] [place] [address] 23812- 5244 Jan, Left shoulder pain M25.512 [place] [address] [place] [id number] [place] [address] 44956- 6261 Dec, Parkinsons disease G20 [place] [address] [place] [id number] [place] [address] 45917- 8465 Dec, Left shoulder pain M25.512 [place] [address] [place] [id number] [place] [address] 25038- 0901 Dec, Type 2 diabetes mellitus with unspecified complications E11.8 ; Anxiety F41.9 ; Therapeutic drug monitoring Z51.81 and Analgesic use Z79.899 [place] [address] [place] [id number] [place] [address] 07879- 0869 November, [place] [address] 74492- 5298 November, [place] [address] [place] [id number] [place] [address] 18740- 9871 November, Left shoulder pain M25.512 [place] [address] [place] [id number] [place] [address] 73357- 8506 Oct, [facility] [address] 97188 -9384 Oct, [place] [address] 36396- 4622 Oct, Parkinsons disease G20 [facility] [place] [address] 45871 -8063 Oct, Acute cystitis without hematuria N30.00 and Viral upper respiratory tract infection J06.9 [place] [address] 13021- 0179 Oct, [place] [address] 80121- 1744 Oct, Type 2 diabetes mellitus with unspecified complications E11.8 [place] [address] 91347- 6062 Oct, Left shoulder pain M25.512 [place] [address] [place] [id number] [place] [address] 02165- 0400 Oct, Type 2 diabetes mellitus with unspecified complications E11.8 ; Dysuria R30.0 and Neurogenic orthostatic hypotension G90.3 [place] [address] [place] [id number] [place] [address] 05394- 1246 Sep, Left shoulder pain M25.512 [place] [address] 58673- 2984 Sep, Medicare annual wellness visit, initial Z00.00 ; Parkinsons disease G20 ; Type 2 diabetes mellitus with unspecified complications E11.8 ; Essential hypertension I10 ; 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 ; Hypothyroidism (acquired ) E03.9 ; PVD (peripheral vascular disease) I73.9 ; Dysthymia F34.1 ; Hyperlipemia, mixed E78.2 ; Neuropathy G62.9 ; Encounter for immunization Z23 ; Encounter for other screening for malignant neoplasm of breast Z12.39 and Mixed stress and urge urinary incontinence N39.46 [place] [address] 48069- 3915 Aug, Parkinsons disease G20 [place] [address] 89715- 0407 Aug, Type 2 diabetes mellitus with unspecified complications E11.8 ; Left shoulder pain M25.512 and Hypotensive episode I95.9 [place] [address] 16325- 9527 Aug, 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 [place] [address] 37593- 6047 Aug, Type 2 diabetes mellitus with unspecified complications E11.8 [place] [address] 87633- 7003 Jul, Callus of foot L84 [place] [address] 63732- 0165 Jul, [place] [address] 50652- 1049 Jul, Callus of foot L84 ; Episodic cluster headache, not intractable G44.019 ; Type 2 diabetes mellitus with unspecified complications E11.8 and Parkinsons disease G20 [place] [address] 16721- 7843 Jul, [place] [address] 31047- 6139 Jul, [place] [address] 42217- 4584 Jun, Type 2 diabetes mellitus with unspecified complications E11.8 ; Unsteady gait R26.81 ; Forgetfulness R68.89 and Hallucinations R44.3 [place] [address] [place] [id number] [place] [address] 83204- 2919 Jun, [facility] [address] [place] [id number] [place] [address] 82078- 0890 Jun, Left shoulder pain M25.512 [place] [address] 80805- 2924 May, Hypernatremia E87.0 and Polydipsia R63.1 [place] [address] [place] [id number] [place] [address] 152314- 4974 May, Hypernatremia E87.0 and Polydipsia R63.1 [place] [address] [place] [id number] [place] [address] 51845- 1141 May, Hypoglycemia E16.2 ; Dysuria R30.0 ; Unsteadiness on feet R26.81 ; Forgetfulness R68.89 ; Type 2 diabetes mellitus with unspecified complications E11.8 and Yeast infection involving the vagina and surrounding area B37.3 [place] [address] [place] [id number] [place] [address] 87856- 4733 May, Acute cystitis without hematuria N30.00 [facility] [address] [place] [id number] [place] [address] 56014 -9112 Apr, Dysuria R30.0 and Acute cystitis without hematuria N30.00 [facility] [address] [place] [id number] [place] [address] 64588- 1610 Apr, Hypernatremia E87.0 and Polydipsia R63.1 [facility] [address] [place] [id number] [place] [address] 41890- 0330 Apr, Vertigo R42 and Type 2 diabetes mellitus with unspecified complications E11.8 [place] [address] [place] [id number] [place] [address] 53360- 5472 Mar, [place] [address] [place] [id number] [place] [address] 07661- 9834 19 Mar, 2017 Left shoulder pain M25.512 [facility] [address] 70486- 5043 13 Mar, 2017 Vertigo R42 [facility] [address] 56062- 8969 12 Mar, 2017 Polydipsia R63.1 [place] [address] 99988- 4741 12 Mar, 2017 Polydipsia R63.1 [place] [address] 58185- 6149 11 Mar, 2017 Vertigo R42 [place] [address] 56706- 2328 07 Mar, 2017 Type 2 diabetes mellitus with unspecified complications E11.8 ; Vertigo R42 ; Polydipsia R63.1 ; Polyuria R35.8 ; Hypothyroidism ( acquired) E03.9 ; Abnormal urinalysis R82.90 and Dysthymia F34.1 [place] [address] [place] [id number] [place] [address] 73965- 5008 05 Mar, 2017 Coronary artery disease of hoopa artery with stable angina pectoris, unspecified whether hoopa or transplanted heart I25.118 ; Systolic CHF, chronic I50.22 ; Hyperlipemia, mixed E78.2 and Essential hypertension I10 [facility] [address] [place] [id number] [place] [address] [id number] Feb, Dental caries K02.9 [facility] [address] [place] [id number] [place] [address] 56943- 8451 Feb, Type 2 diabetes mellitus with diabetic neuropathy, unspecified E11.40 [facility] [address] [place] [id number] [place] [address] 85098- 7679 Dec, Left shoulder pain M25.512 [place] [address] 66200- 3497 Dec, [facility] [address] [address]- 1747 Dec, Type 2 diabetes mellitus with unspecified complications E11.8 [facility] [address] [id number] 15 Dec, 2016 Dental examination Z01.20 [facility] [address] [place] [address] 17134- 3432 08 Dec, 2016 Type 2 diabetes mellitus with diabetic neuropathy, unspecified E11.40 [facility] [address] [place] [id number] [place] [address] 95945- 0891 Dec, [facility] [address] [place] [id number] [place] [address] 99641- 0689 Dec, Type 2 diabetes mellitus with diabetic neuropathy, unspecified E11.40 [facility] [address] [place] [address] 89721- 9698 November, Left shoulder pain M25.512 [facility] [address] [place] [id number] [place] [address] 66705- 4654 November, [facility] [address] [place] [id number] [place] [address] 39584- 0930 November, Type 2 diabetes mellitus with unspecified complications E11.8 and Dysuria R30.0 [facility] [address] [place] [address] 82743- 0678 Oct, Left shoulder pain M25.512 [facility] [address] [address]- 5869 Sep, Left shoulder pain M25.512 [facility] [address] [place] [id number] [place] [address] 04752- 5431 Sep, Pre-op testing Z01.818 [facility] [address] [address]- 7800 Sep, Pre-op testing Z01.818 [facility] [address] [place] [id number] [place] [address] 44465- 9794 08 Sep, 2016 Pre-op testing Z01.818 [place] [address] 50821- 2029 08 Sep, 2016 Pre-op testing Z01.818 and Mouth pain K13.79 [place] [address] 44523- 0915 Sep, Left shoulder pain M25.512 [place] [address] [place] [id number] [place] [address] 29997- 8880 08 Aug, 2016 Other eczema L30.8 [place] [address] 95620- 7304 06 Aug, 2016 PVD (peripheral vascular disease) I73.9 ; Type 2 diabetes mellitus with unspecified complications E11.8 ; Acute cystitis with hematuria N30.01 ; Other eczema L30.8 ; Dysuria R30.0 and Left shoulder pain M25.512 [facility] [address] 46296 -8961 Jul, Otalgia of right ear H92.01 and Blood in ear canal, right H92.21 [place] [address] [place] [id number] [place] [address] 12608- 6472 Jul, Arthralgia, unspecified joint M25.50 ; PVD (peripheral vascular disease) I73.9 and Neuropathy G62.9 [place] [address] [place] [id number] [place] [address] 07874- 3690 Jul, [place] [address] 51840- 6420 Jun, Medicare annual wellness visit, initial Z00.00 ; Cervicalgia M54.2 ; Radiculopathy of cervical region M54.12 ; Encounter for immunization Z23 ; Type 2 diabetes mellitus with unspecified complications E11.8 and Essential hypertension I10 [place] [address] [place] [id number] [place] [address] 15291- 8808 Jun, [facility] [address] [place] [id number] [place] [address] 03172- 6886 May, Hypothyroidism (acquired) E03.9 [facility] [address] [place] [id number] [place] [address] 02285- 0808 May, Dysuria R30.0 ; Essential hypertension I10 ; Hypothyroidism (acquired) E03.9 and PVD (peripheral vascular disease) I73.9 [facility] [address] [place] [id number] [place] [address] 64939 -7727 May, Burning with urination R30.0 and Acute cystitis with hematuria N30.01 [facility] [address] 13203- 8759 May, Dental examination Z01.20 [facility] [address] 13086- 6386 May, Hypothyroidism (acquired) E03.9 [facility] [address] [place] [id number] [place] [address] 46590- 7609 Feb, [facility] [address] 88973- 1433 Feb, 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 ; PVD ( peripheral vascular disease) I73.9 ; Type 2 diabetes mellitus with unspecified complications E11.8 and Essential hypertension I10 [facility] [address] [place] [id number] [place] [address] 13269- 4412 Jan, [facility] [address] [place] [id number] [place] [address] 66337- 6511 Jan, Hypothyroidism (acquired) E03.9 [facility] [address] [place] [id number] [place] [address] 61794- 2884 Jan, [facility] [address] [place] [id number] [place] [address] 78194- 4593 Jan, [facility] [address] [place] [id number] [place] [address] 87174- 6011 Jan, Type 2 diabetes mellitus with unspecified complications E11.8 ; 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 and Essential ( primary) hypertension I10 [place] [address] [place] [id number] [place] [address] 42488- 6999 Jan, Type 2 diabetes mellitus with unspecified complications E11.8 ; 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 ; Essential hypertension I10 and PVD (peripheral vascular disease) I73.9 [place] [address] [place] [id number] [place] [address] 25205- 0801 Jan, [place] [address] [place] [id number] [place] [address] 52740- 9376 Jan, [place] [address] [place] [id number] [place] [address] 14939- 1860 Jan, [place] [address] [place] [id number] [place] [address] 13231- 9872 Jan, Weakness R53.1 ; Fatigue, unspecified type R53.83 ; PVD ( peripheral vascular disease) I73.9 ; Acute osteomyelitis of other site M86.18 ; Type 2 diabetes mellitus with diabetic neuropathy, unspecified E11.40 and senior care 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.4 [place] [address] [place] [address] 57427- 6440 Dec, [place] [address] [place] [id number] [place] [address] 33689- 8271 Dec, Type 2 diabetes mellitus with unspecified complications E11.8 [place] [address] [place] [id number] [place] [address] 16109- 3459 Dec, [place] [address] [place] [id number] [place] [address] 07738- 9491 Dec, Pressure ulcer, unspecified pressure ulcer stage L89.90 and Type 2 diabetes mellitus with unspecified complications E11.8 [facility] [address] [place] [id number] [place] [address] 14667 -1399 Dec, Toe infection L08.9 [facility] [address] [place] [id number] [place] [address] 68781- 9304 November, Dental caries K02.9 [facility] [address] [place] [id number] [place] [address] 42630- 4276 November, [facility] [address] 37811- 6222 November, Dental examination Z01.20 [place] [address] 40544- 5169 Sep, Lipoma of torso D17.1 and Thoracic neuritis M54.14 [place] [address] 19328- 3859 Sep, [place] [address] 99702- 5269 Aug, [facility] [address] [place] [id number] [place] [address] 70857 -7423 Jul, Dysuria R30.0 and UTI (urinary tract infection) N39.0 [place] [address] [place] [id number] [place] [address] 73757- 7900 Jun, Left shoulder pain M25.512 [place] [address] [place] [id number] [place] [address] 99114- 7772 May, Shoulder pain, left M25.512 [place] [address] [place] [id number] [place] [address] 46075- 7504 May, [facility] [address] [place] [id number] [place] [address] 91508- 9671 May, [place] [address] 85552- 7117 May, Left shoulder pain M25.512 [place] [address] [place] [id number] [place] [address] 42479- 1718 May, [place] [address] [place] [id number] [place] [address] 50619- 7041 Apr, Encounter for immunization Z23 [place] [address] 18986- 5731 Apr, Urinary tract infection, site not specified N39.0 ; Hypotension, unspecified I95.9 ; Type 2 diabetes mellitus with unspecified complications E11.8 and Generalized edema R60.1 [place] [address] 75844- 1959 Apr, [place] [address] 62331- 6396 Mar, Diabetes with other specified manifestations, type II or unspecified type, not stated as uncontrolled 250.80 [place] [address] 95213- 7129 Feb, Gout 274.9 and Diabetes 250.00 [place] [address] 09812- 7930 Jan, [place] [address] 07520- 1136 November, CAD (coronary artery disease) 414.00 and CHF (congestive heart failure) 428.0 [place] [address] [place] [id number] [place] [address] 94267- 1502 Oct, [place] [address] [place] [id number] [place] [address] 74308- 4410 Oct, [facility] [address] [place] [id number] [place] [address] 12533- 4972 Oct, [facility] [address] 37280- 8612 Sep, [facility] [address] [place] [id number] [place] [address] 59115- 9674 Sep, [facility] [address] 07301- 7243 Sep, [facility] [place] [facility] [address] [id number] [place] [address]- 4477 Sep, [facility] [place] [facility] [address] [id number] [place] [address]- 3720 Aug, [facility] [place] [facility] [address] [id number] [place] [address]- 5937 Aug, 2014 [facility] [place] [facility] [address] [id number] [place] [address]- 9760 Aug, 2014 [facility] [place] [facility] [address] [id number] [place] [address]- 6374 Aug, [facility] [place] [facility] [address] [id number] [place] [address]- 9353 Aug, 2014 [facility] [place] [facility] [address] [id number] [place] [address]- 0741 Aug, [facility] [place] [facility] [address] [id number] [place] [address]- 5692 Aug, [facility] [place] [facility] [address] [id number] [place] [address]- 1794 Aug, [facility] [place] [facility] [address] [id number] [place] [address]- 3084 Jul, [facility] [place] [facility] [address] [id number] [place] [address]- 7613 Jul, [facility] [place] [facility] [address] [id number] [place] [address]- 4939 Jul, [facility] [place] [facility] [address] [id number] [place] [address]- 4250 Jul, [facility] [place] [facility] [address] [id number] [place] [address]- 4015 Jul, [facility] [place] [facility] [address] [id number] [place] [address]- 3218 Jul, [facility] [place] [facility] [address] [id number] [place] [address]- 2017 Jul, [facility] [address] [id number] [place] [address]- 7641 Jul, [facility] [place] [facility] [address] [id number] [place] [address]- 7346 Jul, [facility] [address] [id number] [place] [address]- 0928 Jul, [facility] [address] [id number] [place] [address]- 8516 Jun, [facility] [address] [id number] [place] [address]- 4824 Jun, [facility] [address] [id number] [place] [address]- 5140 Jun, [facility] [address] [id number] [place] [address]- 1165 Jun, [facility] [address] [id number] [place] [address]- 6225 Jun, [facility] [address] [id number] [place] [address]- 5373 Jun, [facility] [address] [id number] [place] [address]- 9118 Jun, [facility] [place] [facility] [address] [id number] [place] [address]- 1102 Jun, [facility] [place] [facility] [address] [id number] [place] [address]- 7261 Jun, [facility] [place] [facility] [address] [id number] [place] [address]- 8718 Jun, [facility] [place] [facility] [address] [id number] [place] [address]- 6509 May, [facility] [place] [facility] [address] [id number] [place] 7216 May, [facility] [place] [facility] [address] [id number] [place] [address] Mar, [facility] [place] [facility] [address] [id number] [place] [address] Mar, [facility] [place] [facility] [address] [id number] [place] [address] Mar, [facility] [place] [facility] [address] [id number] [place] [address] Mar, [facility] [place] [facility] [address] [id number] [place] [address] Feb, [facility] [place] [facility] [address] [id number] [place] [address] Feb, [facility] [place] [facility] [address] [id number] [place] [address] Feb, [facility] [place] [facility] [address] [id number] [place] [address] Jan, [facility] [place] [facility] [address] [id number] [place] [address] Jan, [facility] [place] [facility] [address] [id number] [place] [address] Jan, [facility] [place] [facility] [address] [id number] [place] [address] Jan, [facility] [place] [facility] [address] [id number] [place] [address] Jan, [facility] [place] [facility] [address] [id number] [place] [address] Jan, [facility] [place] [facility] [address] [id number] [place] [address] Jan, [facility] [place] [facility] [address] [address] [id number] [place] [address] Jan, [facility] [place] [facility] [address] [id number] [place] [address] Jan, [facility] [place] [facility] [address] [id number] [place] [address] 1529 Jan, [facility] [place] [facility] [address] [id number] [place] [address] Dec, [facility] [place] [facility] [address] [id number] [place] [address] 9347 Dec, [facility] [place] [facility] [address] [id number] [place] [address] 8684 November, [facility] [place] [facility] [address] [id number] [place] [address]- 7891 November, [facility] [place] [facility] [address] [id number] [place] [address]- 0733 November, [facility] [place] [facility] [address] [id number] [place] [address]- 4464 November, [facility] [place] [facility] [address] [id number] [place] [address]- 0395 November, [facility] [place] [facility] [address] [id number] [place] [address]- 7143 November, [facility] [place] [facility] [address] [id number] [place] [address]- 0441 November, [facility] [place] [facility] [address] [id number] [place] [address] 4[address] Oct, [facility] [place] [facility] [address] [id number] [place] [address]- 9921 Oct, [facility] [place] [facility] [address] [id number] [place] [address]- 9585 Sep, [facility] [place] [facility] [address] [id number] [place] [address]- 2063 Sep, [facility] [place] [facility] [address] [id number] [place] [address]- 5669 Sep, [facility] [place] [facility] [address] [id number] [place] [address]- 4305 Sep, [facility] [place] [facility] [address] [id number] [place] [address]- 7525 Sep, [facility] [place] [facility] [address] [id number] [place] [address]- 7250 Sep, [facility] [place] [facility] [address] [id number] [place] [address]- 6783 Sep, [facility] [place] [facility] [address] [id number] [place] [address]- 3801 Sep, [facility] [place] [facility] [address] [id number] [place] [address]- 3460 Sep, [facility] [place] [facility] [address] [id number] [place] [address]- 3294 Sep, [facility] [place] [facility] [address] [id number] [place] [address]- 9281 Aug, [facility] [place] [facility] [address] [id number] [place] [address]- 3189 Aug, [facility] [place] [facility] [address] [id number] [place] [address]- 2357 Jul, [facility] [place] [facility] [address] [id number] [place] [address]- 9466 Jul, [facility] [place] [facility] [address] [id number] [place] [address]- 8081 Jul, [facility] [place] [facility] [address] [id number] [place] [address]- 4783 Jul, [facility] [place] [facility] [address] [id number] [place] [address]- 5047 Jul, [facility] [place] [facility] [address] [id number] [place] [address]- 0207 Jul, [facility] [place] [facility] [address] [id number] [place] [address]- 3378 06 Jun, 2013 [facility] [place] [facility] [address] [id number] [place] [address]- 3083 06 Jun, 2013 [facility] [place] [facility] [address] [id number] [place] [address]- 3820 Jun, [facility] [place] [facility] [address] [id number] [place] [address]- 2469 Jun, [facility] [place] [facility] [address] [id number] [place] [address]- 2667 May, [facility] [place] [facility] [address] [id number] [place] [address]- 0307 May, [facility] [place] [facility] [address] [id number] [address] 8393 May, [facility] [place] [facility] [address] [id number] [place] [address]- 6862 May, [facility] [place] [facility] [address] [id number], [place] [address] 1942 May, [facility] [place] [facility] [address] [id number], [place] [address]- 3157 Apr, [facility] [place] [facility] [address] [id number] [place] [address]- 5553 Apr, [facility] [place] [facility] [address] [id number] [address]- 5361 Apr, [facility] [place] [facility] [address] [id number] [address]- 7804 Apr, [facility] [place] [facility] [address] [id number] [place] [address]- 4378 Apr, [facility] [place] [facility] [address] [id number], [place] [address]- 0901 Apr, [facility] [place] [facility] [address] [id number] [address]- 8088 Apr, [facility] [place] [facility] [address] [id number] [place] [address]- 3615 Apr, [facility] [address] [id number] [place] [address]- 3931 Apr, [facility] [address] [id number] [place] [address]- 4476 Apr, [facility] [address] [id number] [place] [address]- 8453 Apr, [facility] [address] [id number] [place] [address]- 9044 Apr, [facility] [address] [id number] [place] [address]- 1797 Mar, [facility] [address] [id number] [place] [address]- 5305 Mar, [facility] [address] [id number] [place] [address]- 4106 Feb, [facility] [address] [id number] [place] [address]- 7046 Jan, [facility] [address] [id number] [place] [address]- 7802 Jan, [facility] [address] [id number] [place] [address]- 0768 Jan, [facility] [place] [facility] [address] [id number] [place] [address]- 7474 Jan, [facility] [place] [facility] [address] [id number] [place] [address]- 7262 Dec, [facility] [place] [facility] [address] [id number] [place] [address]- 5910 Dec, [facility] [place] [facility] [address] [id number] [place] [address]- 0864 Dec, [facility] [place] [facility] [address] [id number] [place] [address]- 4064 Dec, [facility] [place] [facility] [address] [id number] [place] [address]- 8345 10 Dec, 2012 [facility] [address] [id number] [place] [address]- 2441 Dec, [facility] [address] [id number] [place] [address]- 3572 Dec, [facility] [address] [id number] [place] [address]- 2421 November, [facility] [address] [id number] [place] [address]- 2997 November, [facility] [address] [id number] [place] [address]- 4481 November, [facility] [address] [id number] [place] [address]- 6508 Oct, [facility] [address] [id number] [place] [address]- 2862 Oct, [facility] [address] [id number] [place] [address]- 4817 Oct, [facility] [address] [id number] [place] [address]- 7312 Oct, [facility] [address] [id number] [place] [address]- 9220 Oct, [facility] [place] [facility] [address] [id number] [address]- 0860 Sep, [facility] [place] [facility] [address] [id number] [place] [address]- 5154 Sep, [facility] [place] [facility] [address] [id number] [place] [address]- 1718 13 Sep, 2012 [facility] [place] [facility] [address] [id number] [place] [address]- 8544 Sep, [facility] [place] [facility] [address] [id number] [place] [address]- 5151 Aug, [facility] [address] [id number] [place] [address] 2546 Aug, [facility] [place] [facility] [address] [id number] [place] [address]- 2876 Aug, [facility] [place] [facility] [address] [facility] [id number] [place] [address]- 7536 Aug, [facility] [place] [facility] [address] [id number] [place] [address]- 1814 Jul, [facility] [address] [id number] [place] [address]- 2362 Jul, [facility] [place] [facility] [address] [facility] [id number] [place] [address]- 4668 Jun, [facility] [address] [facility] [id number] [place] [address]- 1998 Jun, [facility] [place] [facility] [address] [facility] [id number] [place] [address]- 3549 Jun, [facility] [place] [facility] [address] [facility] [id number] [place] [address]- 8743 Jun, [facility] [place] [facility] [address] [facility] [id number] [place] [address]- 6301 May, [facility] [place] [facility] [address] [facility] [id number] [place] [address]- 3670 May, [facility] [place] [facility] [address] [facility] [id number], [place] [address] 2540 May, [facility] [place] [facility] [address] [facility] [id number] [place] [address]- 0174 May, [facility] [place] [facility] [address] [facility] [id number] [place] [address]87 Apr, [facility] [place] [facility] [address] [facility] [id number] [place]18 Apr, [facility] [place] [facility] [address] [id number] [place] [address]- 7254 Apr, [facility] [place] [facility] [address] [id number] [place] [address]- 5780 Apr, [facility] [place] [facility] [address] [id number] [place] [address]- 7135 Apr, [facility] [place] [facility] [address] [id number] [place] [address]- 6435 Apr, [facility] [place] [facility] [address] [id number] [place] [address]- 8533 Apr, [facility] [place] [facility] [address] [id number] [place] [address]- 4415 Apr, [facility] [place] [facility] [address] [id number] [place] [address]- 1320 Apr, [facility] [place] [facility] [address] [id number] [place] [address]- 8158 Apr, [facility] [place] [facility] [address] [id number] [place] [address]- 9163 Feb, [facility] [place] [facility] [address] [id number] [place] [address]- 3522 Feb, [facility] [place] [facility] [address] [id number] [place] [address]- 3080 Jan, [facility] [place] [facility] [address] [id number] [place] [address]- 8279 Jan, [facility] [place] [facility] [address] [id number] [place] [address]- 1616 Jan, [facility] [place] [facility] [address] [id number] [place] [address]- 7785 Jan, [facility] [place] [facility] [address] [id number] [place] [address]- 9207 Jan, [facility] [place] [facility] [address] [id number] [place] [address]- 9092 Jan, [facility] [place] [facility] [address] [id number] [place] [address]- 8900 Dec, [facility] [place] [facility] [address] [id number] [place] [address]- 8556 November, [facility] [place] [facility] [address] [id number] [place] [address]- 9276 November, [facility] [place] [facility] [address] [id number] [place] [address]- 0731 November, [facility] [place] [facility] [address] [id number] [place] [address]- 4094 Sep, [facility] [place] [facility] [address] [id number] [place] [address]- 5281 Sep, [facility] [place] [facility] [address] [id number] [place] [address]- 3696 Sep, [facility] [place] [facility] [address] [id number] [place] [address]- 7004 Sep, [facility] [place] [facility] [address] [id number] [place] [address]- 7436 Sep, [facility] [place] [facility] [address] [id number] [place] [address]- 6655 Sep, [facility] [place] [facility] [address] [id number] [place] [address]- 8405 Aug, [facility] [place] [facility] [address] [id number] [place] [address]- 5311 Aug, [facility] [place] [facility] [address] [id number] [place] [address]- 7406 Aug, [facility] [place] [facility] [address] [id number] [place] [address]- 3686 Jul, [facility] [place] [facility] [address] [id number] [place] [address]- 9646 Jul, [facility] [place] [facility] [address] [id number] [place] [address]- 2493 10 Jul, 2011 [facility] [address] [id number] [place] [address]- 0970 Jul, [facility] [address] [id number] [place] [address]- 5312 Jun, [facility] [address] [id number] [place] [address]- 4312 Jun, [facility] [address] [id number] [place] [address]- 2943 Jun, [facility] [address] [id number] [place] [address]- 3016 Jun, [facility] [address] [id number] [place] [address]- 8262 Jun, [facility] [address] [id number] [place] [address]- 9993 Jun, [facility] [address] [id number] [place] [address]- 7217 May, [facility] [address] [id number] [place] [address]- 9138 May, [facility] [address] [id number] [place] [address]- 0666 May, [facility] [address] [id number] [place] [address]- 6453 Apr, [facility] [address] [id number] [place] [address]- 9992 Jan, [facility] [place] [facility] [address] [id number] [place] [address]- 2009 Jun, [facility] [place] [facility] [address] [id number] [place] [address]- 6581 Jun, [facility] [address] [id number] [place] [address]- 9720 Jun, [facility] [address] [id number] [place] [address]- 1749 15 Jun, 2010 [facility] [place] [facility] [address] [id number] [place] [address]- 2256 15 Jun, 2010 [facility] [address] [id number] [place] [address]- 4706 13 Jun, 2010 [facility] [place] [facility] [address] [id number] [place] [address] 2546 13 Jun, 2010 [facility] [address] [id number] [place] [address]- 0878 21 Apr, 2010 [facility] [address] [id number] [place] [address]- 7116 17 Feb, 2010 [facility] [address] [id number] [place] [address]- 5447 15 Aug, 2009 [facility] [address] [id number] [place] [address]- 5007 18 Jul, 2009 [facility] [address] [id number] [place] [address]- 4486 11 Jul, 2009 [facility] [address] [id number] [place] [address]- 0116 29 Jun, 2009 [facility] [place] [facility] [address] [id number] [place] [address] 2545 28 Jun, 2009 [facility] [place] [facility] [address] [id number], [place] [address] 2547 28 Jun, 2009 [facility] [place] [facility] [address] [id number] [place] [address]- 3856 22 Jun, 2009 [facility] [place] [facility] [address] [id number] [place] [address] 2546 16 Jun, 2009 [facility] [place] [facility] [address] [id number] [place] [address]- 2109 09 Jun, 2009 [facility] [place] [facility] [id number] [address]- 1399 Jun, [facility] [id number], [place] [address]- 1721 May, [facility] [id number], [place] [address]- 6895 May, [facility] [id number], [place] [address]- 4586 May, [facility] [id number], [place] [address]- 9438 May, [facility] [id number] [place] [address]- 9590 May, [facility] [id number] [place] [address]- 6250 May, [facility] [id number] [place] [address] 16972- 3699 May, [facility] [id number], [place] [address]- 5892 Apr, [facility] [id number], [place] [address]- 2279 Apr, [facility] [id number], [place] [address]- 9007 Jan, [facility] [id number], [place] [address]- 7432 Oct, IMMUNIZATIONS No Known Immunizations SOCIAL HISTORY Never Assessed REASON FOR VISIT Lab order request PLAN OF CARE VITAL SIGNS MEDICATIONS Unknown [...]
--- OUTSIDE RECORDS SUMMARY | 2018-11-09 12:46 | XMS REPORT ---
Author Author PRABHA HILL [facility] Address [address] [place] [address] Care Team Providers Care Food And Beverage Checker Name Role Phone PRABHA HILL Unavailable PROBLEMS Type Condition ICD9-CM Code XSV28-FD Code Onset Dates Condition Status SNOMED Code Problem Hypoglycemia E16.2 Active 218007499 Problem Hallucinations R44.3 Active 8668889 Problem Unsteady gait R26.81 Active 36706017 Problem 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 Active [id number] Problem Dysuria R30.0 Active 47600009 Problem Anxiety F41.9 Active 77072107 Problem Dementia in other diseases classified elsewhere without behavioral disturbance F02.80 Active 345722467 Problem Other frontotemporal dementia G31.09 Active 152297895 Problem Parkinsons disease G20 Active 59079683 Problem Episodic cluster headache, not intractable G44.019 Active 500364118 Problem Neurogenic orthostatic hypotension G90.3 Active 105782904 Problem Mixed stress and urge urinary incontinence N39.46 Active 059260663 Problem 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 Active 138755326 Problem Essential hypertension I10 Active 87548933 Problem Type 2 diabetes mellitus with unspecified complications E11.8 Active 24396739 Problem PVD (peripheral vascular disease) I73.9 Active 758157868 Problem Dysthymia F34.1 Active 35145665 Problem Polydipsia R63.1 Active 28353414 Problem Coronary artery disease involving [place] coronary artery of [place] heart without angina pectoris I25.10 Active 2431230847781 Problem Hypothyroidism (acquired) E03.9 Active 043517630 Problem Hyperlipemia, mixed E78.2 Active 652049432 Problem Dementia with Lewy bodies G31.83 Active 697712961 Problem Neuropathy G62.9 Active 047039728 Problem Hypernatremia E87.0 Active 15407171 ALLERGIES No Information ENCOUNTERS Encounter Location Date Diagnosis [facility] [address] [address]10 Apr, Dysuria R30.0 and Hypothyroidism (acquired) E03.9 [place] [address] 27164- 0555 Apr, Dysuria R30.0 and Increased urinary frequency R35.0 [place] [address] 03696- 9001 Apr, [place] [address] 62992- 8535 Apr, Parkinsons disease G20 and Hypothyroidism (acquired) E03.9 [place] [address] 01032- 5869 Apr, [facility] [address] [address] Apr, Dysuria R30.0 and Cystitis N30.90 [place] [address] 17643- 0471 28 Mar, 2018 Left shoulder pain M25.512 [place] [address] 95618- 1213 Mar, [place] [address] 71797- 1335 Mar, Hyperlipemia, mixed E78.2 ; Essential hypertension I10 and Coronary artery disease involving [place] coronary artery of [place] heart without angina pectoris I25.10 [place] [address] 55756- 2902 Mar, Type 2 diabetes mellitus with unspecified complications E11.8 [place] [address] 05738- 2048 17 Mar, 2018 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 [place] [address] 92158- 7585 11 Mar, 2018 [place] [id number] [place] [address] 21542- 0746 Mar, [facility] [address] [place] [id number] [place] [address] 99854- 4761 Mar, [facility] [address] [place] [id number] [place] [address] 13143- 3637 Mar, [place] [address] [place] [id number] [place] [address] 24103- 1078 Mar, Cellulitis of left lower extremity L03.116 and Petechial rash R23.3 [place] [address] [place] [id number] [place] [address] 58909- 6994 Feb, Left shoulder pain M25.512 [place] [address] [place] [id number] [place] [address] 68896- 6879 Feb, Left shoulder pain M25.512 [place] [address] [place] [id number] [place] [address] 64280- 8390 Feb, 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 [place] [address] [place] [id number] [place] [address] 53210- 6106 Jan, Left shoulder pain M25.512 [place] [address] [place] [id number] [place] [address] 75928- 6405 Dec, Parkinsons disease G20 [place] [address] [place] [id number] [place] [address] 30679- 4922 Dec, Left shoulder pain M25.512 [place] [address] [place] [id number] [place] [address] 43574- 8980 Dec, Type 2 diabetes mellitus with unspecified complications E11.8 ; Anxiety F41.9 ; Therapeutic drug monitoring Z51.81 and Analgesic use Z79.899 [place] [address] [place] [id number] [place] [address] 59870- 4987 November, [place] [address] 80225- 9296 November, [place] [address] [place] [id number] [place] [address] 22701- 3111 November, Left shoulder pain M25.512 [place] [address] [place] [id number] [place] [address] 32123- 3470 Oct, [facility] [address] 75073 -3823 Oct, [place] [address] 86579- 5819 Oct, Parkinsons disease G20 [facility] [place] [address] 55254 -5727 Oct, Acute cystitis without hematuria N30.00 and Viral upper respiratory tract infection J06.9 [place] [address] 44081- 6064 Oct, [place] [address] 80771- 9815 Oct, Type 2 diabetes mellitus with unspecified complications E11.8 [place] [address] 13403- 4327 Oct, Left shoulder pain M25.512 [place] [address] [place] [id number] [place] [address] 40729- 6873 Oct, Type 2 diabetes mellitus with unspecified complications E11.8 ; Dysuria R30.0 and Neurogenic orthostatic hypotension G90.3 [place] [address] [place] [id number] [place] [address] 11004- 8687 Sep, Left shoulder pain M25.512 [place] [address] 62659- 2687 Sep, Medicare annual wellness visit, initial Z00.00 ; Parkinsons disease G20 ; Type 2 diabetes mellitus with unspecified complications E11.8 ; Essential hypertension I10 ; Coronary artery disease involving [place] coronary artery of [place] heart without angina pectoris I25.10 ; Hypothyroidism (acquired ) E03.9 ; PVD (peripheral vascular disease) I73.9 ; Dysthymia F34.1 ; Hyperlipemia, mixed E78.2 ; Neuropathy G62.9 ; Encounter for immunization Z23 ; Encounter for other screening for malignant neoplasm of breast Z12.39 and Mixed stress and urge urinary incontinence N39.46 [place] [address] 55544- 7414 Aug, Parkinsons disease G20 [place] [address] 57644- 7978 Aug, Type 2 diabetes mellitus with unspecified complications E11.8 ; Left shoulder pain M25.512 and Hypotensive episode I95.9 [place] [address] 85266- 1932 Aug, Coronary artery disease involving [place] coronary artery of [place] heart without angina pectoris I25.10 [place] [address] 95055- 6830 Aug, Type 2 diabetes mellitus with unspecified complications E11.8 [place] [address] 74421- 3559 Jul, Callus of foot L84 [place] [address] 07689- 0504 Jul, [place] [address] 35403- 9279 Jul, Callus of foot L84 ; Episodic cluster headache, not intractable G44.019 ; Type 2 diabetes mellitus with unspecified complications E11.8 and Parkinsons disease G20 [place] [address] 13611- 5618 Jul, [place] [address] 98957- 2089 Jul, [place] [address] 12892- 5401 Jun, Type 2 diabetes mellitus with unspecified complications E11.8 ; Unsteady gait R26.81 ; Forgetfulness R68.89 and Hallucinations R44.3 [place] [address] [place] [id number] [place] [address] 63675- 8146 Jun, [facility] [address] [place] [id number] [place] [address] 77651- 6728 Jun, Left shoulder pain M25.512 [place] [address] 81800- 0071 May, Hypernatremia E87.0 and Polydipsia R63.1 [place] [address] [place] [id number] [place] [address] 824116- 9194 May, Hypernatremia E87.0 and Polydipsia R63.1 [place] [address] [place] [id number] [place] [address] 12682- 7888 May, Hypoglycemia E16.2 ; Dysuria R30.0 ; Unsteadiness on feet R26.81 ; Forgetfulness R68.89 ; Type 2 diabetes mellitus with unspecified complications E11.8 and Yeast infection involving the vagina and surrounding area B37.3 [place] [address] [place] [id number] [place] [address] 19867- 8454 May, Acute cystitis without hematuria N30.00 [facility] [address] [place] [id number] [place] [address] 88970 -5907 Apr, Dysuria R30.0 and Acute cystitis without hematuria N30.00 [facility] [address] [place] [id number] [place] [address] 01913- 7784 Apr, Hypernatremia E87.0 and Polydipsia R63.1 [facility] [address] [place] [id number] [place] [address] 15724- 3969 Apr, Vertigo R42 and Type 2 diabetes mellitus with unspecified complications E11.8 [place] [address] [place] [id number] [place] [address] 98813- 6659 Mar, [place] [address] [place] [id number] [place] [address] 85160- 1434 19 Mar, 2017 Left shoulder pain M25.512 [facility] [address] 04150- 8261 13 Mar, 2017 Vertigo R42 [facility] [address] 22807- 6406 12 Mar, 2017 Polydipsia R63.1 [place] [address] 40479- 3039 12 Mar, 2017 Polydipsia R63.1 [place] [address] 97488- 9679 11 Mar, 2017 Vertigo R42 [place] [address] 18153- 2974 07 Mar, 2017 Type 2 diabetes mellitus with unspecified complications E11.8 ; Vertigo R42 ; Polydipsia R63.1 ; Polyuria R35.8 ; Hypothyroidism ( acquired) E03.9 ; Abnormal urinalysis R82.90 and Dysthymia F34.1 [place] [address] [place] [id number] [place] [address] 81231- 2574 05 Mar, 2017 Coronary artery disease of [place] artery with stable angina pectoris, unspecified whether [place] or transplanted heart I25.118 ; Systolic CHF, chronic I50.22 ; Hyperlipemia, mixed E78.2 and Essential hypertension I10 [facility] [address] [place] [id number] [place] [address] [id number] Feb, Dental caries K02.9 [facility] [address] [place] [id number] [place] [address] 50211- 7121 Feb, Type 2 diabetes mellitus with diabetic neuropathy, unspecified E11.40 [facility] [address] [place] [id number] [place] [address] 50984- 1290 Dec, Left shoulder pain M25.512 [place] [address] 07360- 8475 Dec, [facility] [address] [address]- 9311 Dec, Type 2 diabetes mellitus with unspecified complications E11.8 [facility] [address] [address] 15 Dec, 2016 Dental examination Z01.20 [facility] [id number] [place] [address] 20034- 6855 08 Dec, 2016 Type 2 diabetes mellitus with diabetic neuropathy, unspecified E11.40 [facility] [address] [place] [id number] [place] [address] 88422- 0803 Dec, [facility] [address] [place] [id number] [place] [address] 57031- 3460 Dec, Type 2 diabetes mellitus with diabetic neuropathy, unspecified E11.40 [facility] [address] [place] [address] 93132- 5505 November, Left shoulder pain M25.512 [facility] [address] [place] [id number] [place] [address] 59502- 1173 November, [facility] [address] [place] [id number] [place] [address] 25872- 4416 November, Type 2 diabetes mellitus with unspecified complications E11.8 and Dysuria R30.0 [facility] [id number] [place] [address] 13215- 8042 Oct, Left shoulder pain M25.512 [facility] [address] [place] [address]- 6429 Sep, Left shoulder pain M25.512 [facility] [address] [place] [id number] [place] [address] 07044- 8975 Sep, Pre-op testing Z01.818 [facility] [address] [place] [address]- 2943 Sep, Pre-op testing Z01.818 [facility] [address] [place] [id number] [place] [address] 68804- 9653 08 Sep, 2016 Pre-op testing Z01.818 [place] [address] 10692- 2900 08 Sep, 2016 Pre-op testing Z01.818 and Mouth pain K13.79 [place] [address] 71264- 8616 Sep, Left shoulder pain M25.512 [place] [address] [place] [id number] [place] [address] 47653- 5170 08 Aug, 2016 Other eczema L30.8 [place] [address] 92728- 6382 06 Aug, 2016 PVD (peripheral vascular disease) I73.9 ; Type 2 diabetes mellitus with unspecified complications E11.8 ; Acute cystitis with hematuria N30.01 ; Other eczema L30.8 ; Dysuria R30.0 and Left shoulder pain M25.512 [facility] [address] 90566 -0745 Jul, Otalgia of right ear H92.01 and Blood in ear canal, right H92.21 [place] [address] [place] [id number] [place] [address] 37131- 6994 Jul, Arthralgia, unspecified joint M25.50 ; PVD (peripheral vascular disease) I73.9 and Neuropathy G62.9 [place] [address] [place] [id number] [place] [address] 93020- 3714 Jul, [place] [address] 05883- 3013 Jun, Medicare annual wellness visit, initial Z00.00 ; Cervicalgia M54.2 ; Radiculopathy of cervical region M54.12 ; Encounter for immunization Z23 ; Type 2 diabetes mellitus with unspecified complications E11.8 and Essential hypertension I10 [place] [address] [place] [id number] [place] [address] 46830- 7834 Jun, [facility] [address] [place] [id number] [place] [address] 31810- 9701 May, Hypothyroidism (acquired) E03.9 [facility] [address] [place] [id number] [place] [address] 84291- 0664 May, Dysuria R30.0 ; Essential hypertension I10 ; Hypothyroidism (acquired) E03.9 and PVD (peripheral vascular disease) I73.9 [facility] [address] [place] [id number] [place] [address] 03743 -8084 May, Burning with urination R30.0 and Acute cystitis with hematuria N30.01 [facility] [address] 05310- 2353 May, Dental examination Z01.20 [facility] [address] 67626- 6228 May, Hypothyroidism (acquired) E03.9 [facility] [address] [place] [id number] [place] [address] 34247- 7424 Feb, [facility] [address] 77231- 1560 Feb, 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 ; PVD ( peripheral vascular disease) I73.9 ; Type 2 diabetes mellitus with unspecified complications E11.8 and Essential hypertension I10 [facility] [address] [place] [id number] [place] [address] 57171- 1860 Jan, [facility] [address] [place] [id number] [place] [address] 70775- 3588 Jan, Hypothyroidism (acquired) E03.9 [facility] [address] [place] [id number] [place] [address] 51436- 9669 Jan, [facility] [address] [place] [id number] [place] [address] 63693- 1763 Jan, [facility] [address] [place] [id number] [place] [address] 17335- 2352 Jan, Type 2 diabetes mellitus with unspecified complications E11.8 ; 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 and Essential ( primary) hypertension I10 [place] [address] [place] [id number] [place] [address] 27723- 5437 Jan, Type 2 diabetes mellitus with unspecified complications E11.8 ; 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 ; Essential hypertension I10 and PVD (peripheral vascular disease) I73.9 [place] [address] [place] [id number] [place] [address] 53966- 3026 Jan, [place] [address] [place] [id number] [place] [address] 69225- 1959 Jan, [place] [address] [place] [id number] [place] [address] 69262- 9315 Jan, [place] [address] [place] [id number] [place] [address] 22454- 0385 Jan, Weakness R53.1 ; Fatigue, unspecified type R53.83 ; PVD ( peripheral vascular disease) I73.9 ; Acute osteomyelitis of other site M86.18 ; Type 2 diabetes mellitus with diabetic neuropathy, unspecified E11.40 and jail 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.4 [place] [address] [place] [address] 39720- 8577 Dec, [place] [address] [place] [id number] [place] [address] 77306- 8192 Dec, Type 2 diabetes mellitus with unspecified complications E11.8 [place] [address] [place] [id number] [place] [address] 33487- 8509 Dec, [place] [address] [place] [id number] [place] [address] 10910- 3156 Dec, Pressure ulcer, unspecified pressure ulcer stage L89.90 and Type 2 diabetes mellitus with unspecified complications E11.8 [facility] [address] [place] [id number] [place] [address] 99105 -8320 Dec, Toe infection L08.9 [facility] [address] [place] [id number] [place] [address] 79102- 0627 November, Dental caries K02.9 [facility] [address] [place] [id number] [place] [address] 11332- 5941 November, [facility] [address] 62000- 9681 November, Dental examination Z01.20 [place] [address] 41894- 5871 Sep, Lipoma of torso D17.1 and Thoracic neuritis M54.14 [place] [address] 18486- 2742 Sep, [place] [address] 40605- 8422 Aug, [facility] [address] [place] [id number] [place] [address] 87021 -4247 Jul, Dysuria R30.0 and UTI (urinary tract infection) N39.0 [place] [address] [place] [id number] [place] [address] 14496- 1743 Jun, Left shoulder pain M25.512 [place] [address] [place] [id number] [place] [address] 62387- 1161 May, Shoulder pain, left M25.512 [place] [address] [place] [id number] [place] [address] 05396- 3503 May, [facility] [address] [place] [id number] [place] [address] 54122- 4552 May, [place] [address] 55755- 9384 May, Left shoulder pain M25.512 [place] [address] [place] [id number] [place] [address] 19499- 9827 May, [place] [address] [place] [id number] [place] [address] 73036- 4368 Apr, Encounter for immunization Z23 [place] [address] 78516- 4809 Apr, Urinary tract infection, site not specified N39.0 ; Hypotension, unspecified I95.9 ; Type 2 diabetes mellitus with unspecified complications E11.8 and Generalized edema R60.1 [place] [address] 17995- 8012 Apr, [place] [address] 59177- 9994 Mar, Diabetes with other specified manifestations, type II or unspecified type, not stated as uncontrolled 250.80 [place] [address] 96157- 1221 Feb, Gout 274.9 and Diabetes 250.00 [place] [address] 71651- 7953 Jan, [place] [address] 45110- 8994 November, CAD (coronary artery disease) 414.00 and CHF (congestive heart failure) 428.0 [place] [address] [place] [id number] [place] [address] 59291- 3813 Oct, [place] [address] [place] [id number] [place] [address] 35884- 6023 Oct, [facility] [address] [place] [id number] [place] [address] 28882- 8944 Oct, [facility] [address] 53487- 5953 Sep, [facility] [address] [place] [id number] [place] [address] 02268- 3939 Sep, [facility] [address] 33481- 6133 Sep, [facility] [place] [facility] [address] [id number] [place] [address]- 0457 Sep, [facility] [place] [facility] [address] [id number] [place] [address]- 7420 Aug, [facility] [place] [facility] [address] [id number] [place] [address]- 0157 Aug, 2014 [facility] [place] [facility] [address] [id number] [place] [address]- 9954 Aug, 2014 [facility] [place] [facility] [address] [id number] [place] [address]- 9856 Aug, [facility] [place] [facility] [address] [id number] [place] [address]- 1351 Aug, 2014 [facility] [place] [facility] [address] [id number] [place] [address]- 9182 Aug, [facility] [place] [facility] [address] [id number] [place] [address]- 2976 Aug, [facility] [place] [facility] [address] [id number] [place] [address]- 5491 Aug, [facility] [place] [facility] [address] [id number] [place] [address]- 3779 Jul, [facility] [place] [facility] [address] [id number] [place] [address]- 4170 Jul, [facility] [place] [facility] [address] [id number] [place] [address]- 2920 Jul, [facility] [place] [facility] [address] [id number] [place] [address]- 1258 Jul, [facility] [place] [facility] [address] [id number] [place] [address]- 9527 Jul, [facility] [place] [facility] [address] [id number] [place] [address]- 2720 Jul, [facility] [place] [facility] [address] [id number] [place] [address]- 7297 Jul, [facility] [address] [id number] [place] [address]- 6771 Jul, [facility] [place] [facility] [address] [id number] [place] [address]- 1819 Jul, [facility] [address] [id number] [place] [address]- 8568 Jul, [facility] [address] [id number] [place] [address]- 4921 Jun, [facility] [address] [id number] [place] [address]- 2050 Jun, [facility] [address] [id number] [place] [address]- 2638 Jun, [facility] [address] [id number] [place] [address]- 6739 Jun, [facility] [address] [id number] [place] [address]- 3664 Jun, [facility] [address] [id number] [place] [address]- 8496 Jun, [facility] [address] [id number] [place] [address]- 8804 Jun, [facility] [place] [facility] [address] [id number] [place] [address]- 2801 Jun, [facility] [place] [facility] [address] [id number] [place] [address] Jun, [facility] [place] [facility] [address] [id number] [place] [address] Jun, [facility] [place] [facility] [address] [id number] [place] [address] May, [facility] [place] [facility] [address] [id number] [place] [address] May, [facility] [place] [facility] [address] [id number] [place] [address] Mar, [facility] [place] [facility] [address] [id number] [place] [address] Mar, [facility] [place] [facility] [address] [id number] [place] [address] Mar, [facility] [place] [facility] [address] [id number] [place] [address] Mar, [facility] [place] [facility] [address] [id number] [place] [address] Feb, [facility] [place] [facility] [address] [id number] [place] [address] Feb, [facility] [place] [facility] [address] [address] [id number] [place] [address] Feb, [facility] [place] [facility] [address] [id number] [place] [address] Jan, [facility] [place] [facility] [address] [id number] [place] [address] 6929 Jan, [facility] [place] [facility] [address] [id number] [place] [address] 4486 Jan, [facility] [place] [facility] [address] [id number] [place] [address] 4338 Jan, [facility] [place] [facility] [address] [id number] [place] [address] 2747 Jan, [facility] [place] [facility] [address] [id number] [place] [address] 5136 Jan, [facility] [place] [facility] [address] [id number] [place] [address] 8457 Jan, [facility] [place] [facility] [address] [id number] [place] [address]- 4686 Jan, [facility] [place] [facility] [address] [id number] [place] [address] 0248 Jan, [facility] [place] [facility] [address] [id number] [place] [address] 9127 Jan, [facility] [place] [facility] [address] [id number] [place] [address] 1879 Dec, [facility] [place] [facility] [address] [id number] [place] [address] 6859 Dec, [facility] [place] [facility] [address] [id number] [place] [address] 7800 November, [facility] [place] [facility] [address] [id number] [place] [address]- 1711 November, [facility] [place] [facility] [address] [id number] [place] [address]- 4749 November, [facility] [place] [facility] [address] [id number] [place] [address]- 6012 November, [facility] [place] [facility] [address] [id number] [place] [address]- 1009 November, [facility] [place] [facility] [address] [id number] [place] [address]- 2528 November, [facility] [place] [facility] [address] [id number] [place] [address]- 7955 November, [facility] [place] [facility] [address] [id number] [place] [address]- 1346 Oct, [facility] [place] [facility] [address] [id number] [place] [address] 6520 Oct, [facility] [place] [facility] [address] [id number] [place] [address]- 5147 Sep, [facility] [place] [facility] [address] [id number] [place] [address]- 0616 Sep, [facility] [place] [facility] [address] [id number] [place] [address]- 8646 Sep, [facility] [place] [facility] [address] [id number] [place] [address]- 3995 Sep, [facility] [place] [facility] [address] [id number] [place] [address]- 7701 Sep, [facility] [place] [facility] [address] [id number] [place] [address] 0332 Sep, [facility] [place] [facility] [address] [id number] [place] [address]- 3497 Sep, [facility] [place] [facility] [address] [id number] [place] [address]- 8581 Sep, [facility] [place] [facility] [address] [id number] [place] [address]- 9914 Sep, [facility] [place] [facility] [address] [id number] [place] [address]- 1181 Sep, [facility] [place] [facility] [address] [id number] [place] [address]- 1751 Aug, [facility] [place] [facility] [address] [id number] [place] [address]- 2658 Aug, [facility] [place] [facility] [address] [id number] [place] [address]- 5005 Jul, [facility] [place] [facility] [address] [id number] [place] [address] 1876 Jul, [facility] [place] [facility] [address] [id number] [place] [address]- 8536 Jul, [facility] [place] [facility] [address] [id number] [place] [address] 3300 Jul, [facility] [place] [facility] [address] [id number] [place] [address]- 2526 Jul, [facility] [place] [facility] [address] [id number] [place] [address]- 4755 Jul, [facility] [place] [facility] [address] [id number] [place] [address]- 3649 06 Jun, 2013 [facility] [place] [facility] [address] [id number] [place] [address]- 0545 06 Jun, 2013 [facility] [place] [facility] [address] [id number] [place] [address]- 2208 Jun, [facility] [place] [facility] [address] [id number] [place] [address]- 4934 Jun, [facility] [place] [facility] [address] [id number] [place] [address]- 9781 May, [facility] [place] [facility] [address] [id number] [place] [address]- 6789 May, [facility] [place] [facility] [address] [id number], [place] [address]- 9262 May, [facility] [place] [facility] [address] [id number] [place] [address]- 1199 May, [facility] [place] [facility] [address] [id number], [place] [address] 3797 May, [facility] [place] [facility] [address] [id number], [place] [address]- 7199 Apr, [facility] [place] [facility] [address] [id number] [place] [address]- 7666 Apr, [facility] [place] [facility] [address] [id number], [place] [address]- 6714 Apr, [facility] [place] [facility] [address] [id number], [place] [address]- 4372 Apr, [facility] [place] [facility] [address] [id number] [place] [address]- 3674 Apr, [facility] [place] [facility] [address] [id number], [place] [address]- 9113 Apr, [facility] [place] [facility] [address] [id number], [place] [address]- 3313 Apr, [facility] [place] [facility] [address] [id number] [place] [address]- 3048 Apr, [facility] [address] [id number] [place] [address]- 3079 Apr, [facility] [address] [id number] [place] [address]- 6089 Apr, [facility] [address] [id number] [place] [address]- 9933 Apr, [facility] [address] [id number] [place] [address]- 1573 Apr, [facility] [address] [id number] [place] [address]- 0952 Mar, [facility] [address] [id number] [place] [address]- 5043 Mar, [facility] [address] [id number] [place] [address]- 6534 Feb, [facility] [address] [id number] [place] [address]- 8635 Jan, [facility] [address] [id number] [place] [address]- 4721 Jan, [facility] [address] [id number] [place] [address]- 2710 Jan, [facility] [place] [facility] [address] [id number] [place] [address]- 3921 Jan, [facility] [place] [facility] [address] [id number] [place] [address]- 3516 Dec, [facility] [place] [facility] [address] [id number] [place] [address]- 2146 Dec, [facility] [place] [facility] [address] [id number] [place] [address]- 0042 Dec, [facility] [place] [facility] [address] [id number] [place] [address]- 6769 Dec, [facility] [place] [facility] [address] [id number] [place] [address]- 4555 10 Dec, 2012 [facility] [address] [id number] [place] [address]- 5383 Dec, [facility] [address] [id number] [place] [address]- 1429 Dec, [facility] [address] [id number] [place] [address]- 8451 November, [facility] [address] [id number] [place] [address]- 7154 November, [facility] [address] [id number] [place] [address]- 4590 November, [facility] [address] [id number] [place] [address]- 1602 Oct, [facility] [address] [id number] [place] [address]- 2110 Oct, [facility] [address] [id number] [place] [address]- 3555 Oct, [facility] [address] [id number] [place] [address]- 9158 Oct, [facility] [address] [id number] [place] [address]- 9631 Oct, [facility] [place] [facility] [address] [id number], [place] [address]- 9000 Sep, [facility] [place] [facility] [address] [id number] [place] [address]- 6572 Sep, [facility] [place] [facility] [address] [id number] [place] [address]- 0329 13 Sep, 2012 [facility] [place] [facility] [address] [id number] [place] [address]- 7506 Sep, [facility] [place] [facility] [address] [id number] [place] [address]- 5639 Aug, [facility] [address] [id number] [place] [address] 2546 Aug, [facility] [place] [facility] [address] [id number] [place] [address]- 2976 Aug, [facility] [place] [facility] [address] [facility] [id number] [place] [address]- 2126 Aug, [facility] [place] [facility] [address] [id number] [place] [address]- 3215 Jul, [facility] [address] [id number] [place] [address]- 4941 Jul, [facility] [place] [facility] [address] [facility] [id number] [place] [address]- 1582 Jun, [facility] [address] [facility] [id number] [place] [address]- 9176 Jun, [facility] [place] [facility] [address] [facility] [id number] [place] [address]- 7415 Jun, [facility] [place] [facility] [address] [facility] [id number] [place] [address]- 3197 Jun, [facility] [place] [facility] [address] [facility] [id number] [place] [address]- 7210 May, [facility] [place] [facility] [address] [facility] [id number] [place] [address]- 4259 May, [facility] [place] [facility] [address] [facility] [id number], [place] [address] 254 May, [facility] [place] [facility] [address] [facility] [id number] [place] [address]- 9716 May, [facility] [place] [facility] [address] [facility] [id number] [place] [address] Apr, [facility] [place] [facility] [address] [facility] [id number] [place] [address] Apr, [facility] [place] [facility] [address] [id number] [place] [address]- 8837 Apr, [facility] [place] [facility] [address] [id number] [place] [address]- 4662 Apr, [facility] [place] [facility] [address] [id number] [place] [address]- 2465 Apr, [facility] [place] [facility] [address] [id number] [place] [address]- 2174 Apr, [facility] [place] [facility] [address] [id number] [place] [address]- 9767 Apr, [facility] [place] [facility] [address] [id number] [place] [address]- 6487 Apr, [facility] [place] [facility] [address] [id number] [place] [address]- 3178 Apr, [facility] [place] [facility] [address] [id number] [place] [address]- 0733 Apr, [facility] [place] [facility] [address] [id number] [place] [address]- 5492 Feb, [facility] [place] [facility] [address] [id number] [place] [address]- 2684 Feb, [facility] [place] [facility] [address] [id number] [place] [address]- 4235 Jan, [facility] [place] [facility] [address] [id number] [place] [address]- 3437 Jan, [facility] [place] [facility] [address] [id number] [place] [address]- 6484 Jan, [facility] [place] [facility] [address] [id number] [place] [address]- 3948 Jan, [facility] [place] [facility] [address] [id number] [place] [address]- 8033 Jan, [facility] [place] [facility] [address] [id number] [place] [address]- 2265 Jan, [facility] [place] [facility] [address] [id number] [place] [address]- 2129 Dec, [facility] [place] [facility] [address] [id number] [place] [address]- 7346 November, [facility] [place] [facility] [address] [id number] [place] [address]- 3986 November, [facility] [place] [facility] [address] [id number] [place] [address]- 5068 November, [facility] [place] [facility] [address] [id number] [place] [address]- 7960 Sep, [facility] [place] [facility] [address] [id number] [place] [address]- 2972 Sep, [facility] [place] [facility] [address] [id number] [place] [address]- 3086 Sep, [facility] [place] [facility] [address] [id number] [place] [address]- 6443 Sep, [facility] [place] [facility] [address] [id number] [place] [address]- 7807 Sep, [facility] [place] [facility] [address] [id number] [place] [address]- 9779 Sep, [facility] [place] [facility] [address] [id number] [place] [address]- 8943 Aug, [facility] [place] [facility] [address] [id number] [place] [address]- 4055 Aug, [facility] [place] [facility] [address] [id number] [place] [address]- 4316 Aug, [facility] [place] [facility] [address] [id number] [place] [address]- 6546 Jul, [facility] [place] [facility] [address] [id number] [place] [address]- 1656 Jul, [facility] [place] [facility] [address] [id number] [place] [address]- 7511 10 Jul, 2011 [facility] [address] [id number] [place] [address]- 4798 Jul, [facility] [address] [id number] [place] [address]- 0772 Jun, [facility] [address] [id number] [place] [address]- 8259 Jun, [facility] [address] [id number] [place] [address]- 8076 Jun, [facility] [address] [id number] [place] [address]- 4910 Jun, [facility] [address] [id number] [place] [address]- 2693 Jun, [facility] [address] [id number] [place] [address]- 8149 Jun, [facility] [address] [id number] [place] [address]- 4169 May, [facility] [address] [id number] [place] [address]- 2629 May, [facility] [address] [id number] [place] [address]- 7098 May, [facility] [address] [id number] [place] [address]- 7787 Apr, [facility] [address] [id number] [place] [address]- 7398 Jan, [facility] [place] [facility] [address] [id number] [place] [address]- 4267 Jun, [facility] [place] [facility] [address] [id number] [place] [address]- 9761 Jun, [facility] [address] [id number] [place] [address]- 0249 Jun, [facility] [address] [id number] [place] [address]- 9315 15 Jun, 2010 [facility] [place] [facility] [address] [id number] [place] [address]- 7656 15 Jun, 2010 [facility] [address] [id number] [place] [address]- 6876 13 Jun, 2010 [facility] [place] [facility] [address] [id number] [place] [address] 2546 13 Jun, 2010 [facility] [address] [id number] [place] [address]- 8874 21 Apr, 2010 [facility] [address] [id number] [place] [address]- 1906 17 Feb, 2010 [facility] [address] [id number] [place] [address]- 4364 15 Aug, 2009 [facility] [address] [id number] [place] [address]- 3612 18 Jul, 2009 [facility] [address] [id number] [place] [address]- 9038 11 Jul, 2009 [facility] [address] [id number] [place] [address]- 1476 29 Jun, 2009 [facility] [place] [facility] [address] [id number] [place] [address] 2544 28 Jun, 2009 [facility] [place] [facility] [address] [id number], [place] [address] 2543 28 Jun, 2009 [facility] [place] [facility] [address] [id number] [place] [address]- 4126 22 Jun, 2009 [facility] [place] [facility] [address] [id number] [place] [address] 2546 16 Jun, 2009 [facility] [place] [facility] [address] [id number] [place] [address]- 1631 09 Jun, 2009 [facility] [place] [facility] [id number], [place] [address]- 8986 Jun, [facility] [id number], [place] [address]- 9267 May, [facility] [id number], [place] [address]- 1046 May, [facility] [id number], [place] [address]- 4015 May, [facility] [address] [id number], [place] [address]- 4200 May, [facility] [id number] [place] [address]- 3343 May, [facility] [id number] [place] [address]- 4953 May, [facility] [id number] [place] [address]- 7129 May, [facility] [id number] [place] [address]- 4400 Apr, [facility] [id number], [place] [address]- 7825 Apr, [facility] [id number], [place] [address]- 6885 Jan, [facility] [id number], [place] [address]- 1838 Oct, IMMUNIZATIONS No Known Immunizations SOCIAL HISTORY Never Assessed REASON FOR VISIT Tramadol Update PLAN OF CARE VITAL SIGNS MEDICATIONS Unknown [...]
--- OUTSIDE RECORDS SUMMARY | 2018-11-09 12:46 | XMS REPORT ---
Author Author PRABHA HILL [facility] Address [address] [place] [address] Care Team Providers Care Printing Screen Assembler Name Role Phone PRABHA HILL Unavailable PROBLEMS Type Condition ICD9-CM Code LBD61-NL Code Onset Dates Condition Status SNOMED Code Problem Hypoglycemia E16.2 Active 683111995 Problem Hallucinations R44.3 Active 0901680 Problem Unsteady gait R26.81 Active 83334560 Problem 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 Active [id number] Problem Dysuria R30.0 Active 63009757 Problem Anxiety F41.9 Active 78528866 Problem Dementia in other diseases classified elsewhere without behavioral disturbance F02.80 Active 972924712 Problem Other frontotemporal dementia G31.09 Active 250223098 Problem Parkinsons disease G20 Active 42850731 Problem Episodic cluster headache, not intractable G44.019 Active 411505632 Problem Neurogenic orthostatic hypotension G90.3 Active 125532521 Problem Mixed stress and urge urinary incontinence N39.46 Active 527904278 Problem 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 Active 870938334 Problem Essential hypertension I10 Active 67679825 Problem Type 2 diabetes mellitus with unspecified complications E11.8 Active 67012378 Problem PVD (peripheral vascular disease) I73.9 Active 911396225 Problem Dysthymia F34.1 Active 45381384 Problem Polydipsia R63.1 Active 95205168 Problem Coronary artery disease involving [place] coronary artery of [place] heart without angina pectoris I25.10 Active 4861562777912 Problem Hypothyroidism (acquired) E03.9 Active 635697377 Problem Hyperlipemia, mixed E78.2 Active 130556837 Problem Dementia with Lewy bodies G31.83 Active 367176985 Problem Neuropathy G62.9 Active 601026983 Problem Hypernatremia E87.0 Active 71736995 ALLERGIES No Information ENCOUNTERS Encounter Location Date Diagnosis [facility] [address] [address] Apr, [facility] [address] 18869- 4286 Apr, Parkinsons disease G20 and Hypothyroidism (acquired) E03.9 [facility] [address] 52040- 9478 Apr, [facility] [address] [address]94 Apr, Dysuria R30.0 and Cystitis N30.90 [place] [address] 08352- 1734 Mar, Left shoulder pain M25.512 [place] [address] 60057- 8396 Mar, [place] [address] 42850- 0495 Mar, Hyperlipemia, mixed E78.2 ; Essential hypertension I10 and Coronary artery disease involving [place] coronary artery of [place] heart without angina pectoris I25.10 [place] [address] 30209- 0692 Mar, Type 2 diabetes mellitus with unspecified complications E11.8 [place] [address] 97265- 9434 Mar, 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 [facility] [address] 94006- 5967 Mar, [place] [address] 38066- 7585 Mar, [place] [address] 54411- 4587 Mar, [place] [address] 45255- 2879 Mar, [place] [address] [place] [id number] [place] [address] 69151- 8704 Mar, Cellulitis of left lower extremity L03.116 and Petechial rash R23.3 [place] [address] [place] [id number] [place] [address] 73639- 0559 Feb, Left shoulder pain M25.512 [place] [address] 45752- 7415 Feb, Left shoulder pain M25.512 [place] [address] 58223- 0714 Feb, 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 [place] [address] 25789- 5827 Jan, Left shoulder pain M25.512 [place] [address] 60660- 6929 Dec, Parkinsons disease G20 [place] [address] 10499- 3813 Dec, Left shoulder pain M25.512 [place] [address] 77334- 1277 Dec, Type 2 diabetes mellitus with unspecified complications E11.8 ; Anxiety F41.9 ; Therapeutic drug monitoring Z51.81 and Analgesic use Z79.899 [place] [address] [place] [id number] [place] [address] 50034- 7757 November, [facility] [address] [place] [id number] [place] [address] 54839- 1121 November, [place] [address] 25183- 3848 November, Left shoulder pain M25.512 [place] [address] [place] [id number] [place] [address] 84085- 1667 Oct, [facility] [address] 66182 -6172 Oct, [facility] [id number] [place] [address] 39935- 0363 Oct, Parkinsons disease G20 [facility] [id number] [place] [address] 70370 -3341 18 Oct, 2017 Acute cystitis without hematuria N30.00 and Viral upper respiratory tract infection J06.9 [facility] [address] [place] [id number] [place] [address] 37676- 3103 17 Oct, 2017 [facility] [address] [place] [id number] [place] [address] 83978- 2479 Oct, Type 2 diabetes mellitus with unspecified complications E11.8 [place] [address] [place] [id number] [place] [address] 97578- 5363 Oct, Left shoulder pain M25.512 [facility] [address] [place] [id number] [place] [address] 42076- 6837 16 Oct, 2017 Type 2 diabetes mellitus with unspecified complications E11.8 ; Dysuria R30.0 and Neurogenic orthostatic hypotension G90.3 [place] [address] [place] [id number] [place] [address] 30920- 1539 19 Sep, 2017 Left shoulder pain M25.512 [place] [address] [place] [id number] [place] [address] 98605- 6783 12 Sep, 2017 Medicare annual wellness visit, initial Z00.00 ; Parkinsons disease G20 ; Type 2 diabetes mellitus with unspecified complications E11.8 ; Essential hypertension I10 ; Coronary artery disease involving [place] coronary artery of [place] heart without angina pectoris I25.10 ; Hypothyroidism (acquired ) E03.9 ; PVD (peripheral vascular disease) I73.9 ; Dysthymia F34.1 ; Hyperlipemia, mixed E78.2 ; Neuropathy G62.9 ; Encounter for immunization Z23 ; Encounter for other screening for malignant neoplasm of breast Z12.39 and Mixed stress and urge urinary incontinence N39.46 [facility] [address] [place] [id number] [place] [address] 37642- 8617 Aug, Parkinsons disease G20 [place] [address] [place] [id number] [place] [address] 33721- 8614 Aug, Type 2 diabetes mellitus with unspecified complications E11.8 ; Left shoulder pain M25.512 and Hypotensive episode I95.9 [place] [address] [place] [id number] [place] [address] 32566- 5900 Aug, Coronary artery disease involving [place] coronary artery of [place] heart without angina pectoris I25.10 [place] [address] [place] [id number] [place] [address] 88839- 2447 07 Aug, 2017 Type 2 diabetes mellitus with unspecified complications E11.8 [place] [address] [place] [id number] [place] [address] 31160- 9240 Jul, Callus of foot L84 [place] [id number] [place] [address] 53316- 1846 Jul, [place] [address] 20169- 6901 Jul, Callus of foot L84 ; Episodic cluster headache, not intractable G44.019 ; Type 2 diabetes mellitus with unspecified complications E11.8 and Parkinsons disease G20 [place] [address] [place] [id number] [place] [address] 30396- 6094 Jul, [place] [address] [place] [id number] [place] [address] 77269- 4297 Jul, [place] [address] [place] [id number] [place] [address] 87886- 8516 Jun, Type 2 diabetes mellitus with unspecified complications E11.8 ; Unsteady gait R26.81 ; Forgetfulness R68.89 and Hallucinations R44.3 [place] [address] [place] [id number] [place] [address] 30985- 4529 Jun, [place] [address] [place] [id number] [place] [address] 75291- 4723 Jun, Left shoulder pain M25.512 [place] [address] [place] [id number] [place] [address] 19809- 0113 May, Hypernatremia E87.0 and Polydipsia R63.1 [place] [address] [place] [id number] [place] [address] 10198- 1032 08 May, 2017 Hypernatremia E87.0 and Polydipsia R63.1 [place] [address] 03984- 0690 May, Hypoglycemia E16.2 ; Dysuria R30.0 ; Unsteadiness on feet R26.81 ; Forgetfulness R68.89 ; Type 2 diabetes mellitus with unspecified complications E11.8 and Yeast infection involving the vagina and surrounding area B37.3 [place] [address] [place] [id number] [place] [address] 83829- 3875 May, Acute cystitis without hematuria N30.00 [facility] [address] [place] [id number] [place] [address] 90854 -9530 Apr, Dysuria R30.0 and Acute cystitis without hematuria N30.00 [place] [address] 82144- 9325 Apr, Hypernatremia E87.0 and Polydipsia R63.1 [place] [address] [place] [id number] [place] [address] 19415- 0110 Apr, Vertigo R42 and Type 2 diabetes mellitus with unspecified complications E11.8 [place] [address] [place] [id number] [place] [address] 04358- 5357 Mar, [place] [address] 15205- 6686 19 Mar, 2017 Left shoulder pain M25.512 [place] [address] [place] [id number] [place] [address] 40887- 9656 13 Mar, 2017 Vertigo R42 [place] [address] 34608- 2353 12 Mar, 2017 Polydipsia R63.1 [facility] [address] [place] [id number] [place] [address] 82861- 7226 12 Mar, 2017 Polydipsia R63.1 [place] [address] 10326- 1594 11 Mar, 2017 Vertigo R42 [place] [address] 62313- 3597 07 Mar, 2017 Type 2 diabetes mellitus with unspecified complications E11.8 ; Vertigo R42 ; Polydipsia R63.1 ; Polyuria R35.8 ; Hypothyroidism ( acquired) E03.9 ; Abnormal urinalysis R82.90 and Dysthymia F34.1 [place] [address] 06509- 4941 05 Mar, 2017 Coronary artery disease of [place] artery with stable angina pectoris, unspecified whether [place] or transplanted heart I25.118 ; Systolic CHF, chronic I50.22 ; Hyperlipemia, mixed E78.2 and Essential hypertension I10 [facility] [address] [id number] Feb, Dental caries K02.9 [place] [address] 51171- 7215 Feb, Type 2 diabetes mellitus with diabetic neuropathy, unspecified E11.40 [place] [address] 50170- 4143 Dec, Left shoulder pain M25.512 [facility] [address] 94099- 2708 Dec, [place] [address] 81198- 3403 Dec, Type 2 diabetes mellitus with unspecified complications E11.8 [facility] [address] [id number] Dec, Dental examination Z01.20 [place] [address] [place] [id number] [place] [address] 64260- 7867 08 Dec, 2016 Type 2 diabetes mellitus with diabetic neuropathy, unspecified E11.40 [facility] [address] [place] [id number] [place] [address] 77347- 9776 Dec, [facility] [address] [place] [id number] [place] [address] 14734- 4711 Dec, Type 2 diabetes mellitus with diabetic neuropathy, unspecified E11.40 [facility] [address] [place] [id number] [place] [address] 65086- 3788 November, Left shoulder pain M25.512 [place] [address] [place] [id number] [place] [address] 92129- 7407 November, [place] [address] [place] [id number] [place] [address] 87709- 7033 November, Type 2 diabetes mellitus with unspecified complications E11.8 and Dysuria R30.0 [place] [address] [place] [id number] [place] [address] 62498- 0521 Oct, Left shoulder pain M25.512 [place] [address] [place] [id number] [place] [address] 29444- 0481 Sep, Left shoulder pain M25.512 [place] [address] [place] [id number] [place] [address] 74579- 8315 Sep, Pre-op testing Z01.818 [place] [address] [place] [id number] [place] [address] 06538- 9236 Sep, Pre-op testing Z01.818 [place] [address] [place] [id number] [place] [address] 93682- 1342 Sep, Pre-op testing Z01.818 [place] [address] [place] [id number] [place] [address] 22756- 7265 Sep, Pre-op testing Z01.818 and Mouth pain K13.79 [place] [address] [place] [id number] [place] [address] 70161- 6812 Sep, Left shoulder pain M25.512 [place] [address] [place] [id number] [place] [address] 41809- 7474 08 Aug, 2016 Other eczema L30.8 [place] [address] 35479- 0067 06 Aug, 2016 PVD (peripheral vascular disease) I73.9 ; Type 2 diabetes mellitus with unspecified complications E11.8 ; Acute cystitis with hematuria N30.01 ; Other eczema L30.8 ; Dysuria R30.0 and Left shoulder pain M25.512 [facility] [address] 55741 -2845 Jul, Otalgia of right ear H92.01 and Blood in ear canal, right H92.21 [place] [address] 37720- 9639 Jul, Arthralgia, unspecified joint M25.50 ; PVD (peripheral vascular disease) I73.9 and Neuropathy G62.9 [place] [address] [place] [id number] [place] [address] 72096- 1319 Jul, [place] [address] [place] [id number] [place] [address] 91705- 7896 Jun, Medicare annual wellness visit, initial Z00.00 ; Cervicalgia M54.2 ; Radiculopathy of cervical region M54.12 ; Encounter for immunization Z23 ; Type 2 diabetes mellitus with unspecified complications E11.8 and Essential hypertension I10 [place] [address] [place] [id number] [place] [address] 39610- 7942 Jun, [place] [address] 93454- 0285 May, Hypothyroidism (acquired) E03.9 [place] [address] [place] [id number] [place] [address] 25211- 0277 May, Dysuria R30.0 ; Essential hypertension I10 ; Hypothyroidism (acquired) E03.9 and PVD (peripheral vascular disease) I73.9 [facility] [address] [address] May, Burning with urination R30.0 and Acute cystitis with hematuria N30.01 [facility] [address] [address]- 4173 May, Dental examination Z01.20 [facility] [address] [place] [id number] [place] [address] 35678- 5861 May, Hypothyroidism (acquired) E03.9 [facility] [address] [place] [id number] [place] [address] 38392- 2846 Feb, [facility] [address] [place] [id number] [place] [address] 43457- 3421 Feb, 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 ; PVD ( peripheral vascular disease) I73.9 ; Type 2 diabetes mellitus with unspecified complications E11.8 and Essential hypertension I10 [facility] [address] [place] [id number] [place] [address] 28315- 5179 Jan, [facility] [address] [place] [id number] [place] [address] 51878- 2549 Jan, Hypothyroidism (acquired) E03.9 [facility] [address] [place] [id number] [address]- 2541 Jan, [facility] [address] [place] [id number] [place] [address] 12940- 0545 Jan, [facility] [address] [place] [id number] [place] [address] 91481- 2544 Jan, Type 2 diabetes mellitus with unspecified complications E11.8 ; 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 and Essential ( primary) hypertension I10 [facility] [address] [address]- 2545 Jan, Type 2 diabetes mellitus with unspecified complications E11.8 ; 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 ; Essential hypertension I10 and PVD (peripheral vascular disease) I73.9 [place] [address] [place] [id number] [place] [address] 79113- 8909 Jan, [facility] [address] [place] [id number] [place] [address] 38069- 3406 Jan, [facility] [address] [place] [id number] [place] [address] 54607- 6457 Jan, [place] [address] [place] [id number] [place] [address] 47723- 2802 Jan, Weakness R53.1 ; Fatigue, unspecified type R53.83 ; PVD ( peripheral vascular disease) I73.9 ; Acute osteomyelitis of other site M86.18 ; Type 2 diabetes mellitus with diabetic neuropathy, unspecified E11.40 and manager 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 [place] [address] [place] [id number] [place] [address] 15529- 6805 Dec, [place] [address] [place] [id number] [place] [address] 02093- 1076 Dec, Type 2 diabetes mellitus with unspecified complications E11.8 [place] [address] [place] [id number] [place] [address] 10790- 1519 Dec, [place] [address] [place] [id number] [place] [address] 63927- 9698 Dec, Pressure ulcer, unspecified pressure ulcer stage L89.90 and Type 2 diabetes mellitus with unspecified complications E11.8 [facility] [address] [place] [id number] [place] [address] 98837 -9765 Dec, Toe infection L08.9 [facility] [address] [place] [id number] [place] [address] 11217- 5990 November, Dental caries K02.9 [facility] [address] [place] [id number] [place] [address] 61345- 2391 November, [place] [address] [place] [address]- 6131 November, Dental examination Z01.20 [place] [address] 52537- 5936 Sep, Lipoma of torso D17.1 and Thoracic neuritis M54.14 [place] [address] [place] [id number] [place] [address] 75561- 8887 Sep, [place] [address] [place] [id number] [place] [address] 60138- 8613 Aug, [facility] [address] [place] [id number] [place] [address] 30881 -2366 Jul, Dysuria R30.0 and UTI (urinary tract infection) N39.0 [place] [address] [place] [id number] [place] [address] 56030- 6016 Jun, Left shoulder pain M25.512 [place] [address] 66013- 1758 May, Shoulder pain, left M25.512 [place] [address] [place] [id number] [place] [address] 47584- 8442 May, [place] [address] [place] [id number] [place] [address] 08332- 1185 May, [place] [address] [place] [id number] [place] [address] 83106- 3593 May, Left shoulder pain M25.512 [place] [address] [place] [id number] [place] [address] 79549- 3024 May, [place] [address] [place] [id number] [place] [address] 03370- 0068 Apr, Encounter for immunization Z23 [place] [address] [place] [id number] [place] [address] 53077- 7070 08 Apr, 2015 Urinary tract infection, site not specified N39.0 ; Hypotension, unspecified I95.9 ; Type 2 diabetes mellitus with unspecified complications E11.8 and Generalized edema R60.1 [facility] [address] [place] [id number] [place] [address] 00269- 9586 Apr, [facility] [address] [place] [id number] [place] [address] 86000- 6806 Mar, Diabetes with other specified manifestations, type II or unspecified type, not stated as uncontrolled 250.80 [facility] [address] 73452- 1246 Feb, Gout 274.9 and Diabetes 250.00 [facility] [address] [place] [id number] [place] [address] 87499- 2517 Jan, [facility] [address] [place] [id number] [place] [address] 34897- 8126 November, CAD (coronary artery disease) 414.00 and CHF (congestive heart failure) 428.0 [facility] [address] [place] [id number] [place] [address] 72181- 2792 Oct, [facility] [address] [place] [id number] [place] [address] 40082- 4026 Oct, [facility] [address] [place] [id number] [place] [address] 40273- 4549 Oct, [facility] [address] [place] [id number] [place] [address] 88474- 0246 Sep, [facility] [address] [place] [id number] [place] [address] 92519- 5446 Sep, [facility] [address] [place] [id number] [place] [address] 67479- 3156 Sep, [facility] [address] [place] [id number] [place] [address] 84902- 9266 Sep, [facility] [id number] [address]- 8186 Aug, [facility] [address] [place] [id number] [place] [address] 76978- 1911 Aug, [facility] [place] [facility] [address] [id number] [place] [address]- 6407 Aug, [facility] [place] [facility] [address] [id number] [place] [address]- 2474 Aug, 2014 [facility] [place] [facility] [address] [facility] [id number] [place] [address]- 3011 Aug, 2014 [facility] [place] [facility] [address] [id number] [place] [address]- 0586 Aug, 2014 [facility] [place] [facility] [address] [id number] [place] [address]- 8757 Aug, [facility] [place] [facility] [address] [facility] [id number] [place] [address]- 9671 Aug, [facility] [place] [facility] [address] [facility] [id number] [place] [address]- 7854 Jul, [facility] [place] [facility] [address] [facility] [id number] [place] [address]- 0524 Jul, [facility] [place] [facility] [address] [facility] [id number] [place] [address]- 9760 Jul, [facility] [place] [facility] [address] [facility] [id number] [place] [address]- 2551 Jul, [facility] [place] [facility] [address] [facility] [id number] [address]- 6670 Jul, [facility] [place] [facility] [address] [facility] [id number], [place] [address] Jul, [facility] [place] [facility] [address] [facility] [id number] [address] Jul, [facility] [place] [facility] [address] [facility] [id number][place] [address] Jul, [facility] [place] [facility] [address] [facility] [id number] [place] [address] Jul, [facility] [place] [facility] [address] [id number] [place] [address] Jul, [facility] [place] [facility] [address] [id number] [place] [address] Jun, [facility] [place] [facility] [address] [id number] [place] [address] Jun, [facility] [place] [facility] [address] [id number] [place] [address] Jun, [facility] [place] [facility] [address] [id number] [place] [address] Jun, [facility] [place] [facility] [address] [id number] [place] [address] Jun, [facility] [place] [facility] [address] [id number] [place] [address] Jun, [facility] [place] [facility] [address] [id number] [place] [address] Jun, [facility] [place] [facility] [address] [id number] [place] [address] Jun, [facility] [place] [facility] [address] [id number] [place] [address] Jun, [facility] [place] [facility] [address] [id number] [place] [address] Jun, [facility] [place] [facility] [address] [id number] [place] [address] 7837 May, [facility] [place] [facility] [address] [id number] [place] [address] 47[address] May, [facility] [place] [facility] [address] [id number] [place] [address] 18 Mar, 2014 [facility] [place] [facility] [address] [id number] [place] [address] 6[address] 18 Mar, 2014 [facility] [place] [facility] [address] [id number] [place] [address] 2305 Mar, [facility] [place] [facility] [address] [id number] [place] [address] 2304 Mar, [facility] [place] [facility] [address] [id number] [place] [address] 1022 Feb, [facility] [place] [facility] [address] [id number] [place] [address] 40[address] Feb, [facility] [place] [facility] [address] [id number] [place] [address] 3220 Feb, [facility] [place] [facility] [address] [id number] [place] [address] 77[address] Jan, [facility] [place] [facility] [address] [id number] [place] [address] 3147 Jan, [facility] [place] [facility] [address] [id number] [place] [address]- 0042 Jan, [facility] [place] [facility] [address] [id number] [place] [address]- 7925 Jan, [facility] [place] [facility] [address] [id number] [place] [address] 3987 Jan, [facility] [place] [facility] [address] [id number] [place] [address]- 7529 Jan, [facility] [place] [facility] [address] [id number] [place] [address]- 4669 Jan, [facility] [place] [facility] [address] [id number] [place] [address]- 1991 Jan, [facility] [place] [facility] [address] [id number] [place] [address] 3704 Jan, [facility] [place] [facility] [address] [id number] [place] [address]- 2868 Jan, [facility] [place] [facility] [address] [id number] [place] [address]- 0039 Dec, [facility] [place] [facility] [address] [id number] [place] [address] 5508 Dec, [facility] [address] [id number] [place] [address]- 2828 November, [facility] [place] [facility] [address] [id number] [place] [address]- 2813 November, [facility] [place] [facility] [address] [id number] [place] [address]- 4969 November, [facility] [place] [facility] [address] [id number] [place] [address]- 9040 November, [facility] [place] [facility] [address] [id number] [place] [address]- 1745 November, [facility] [place] [facility] [address] [id number] [place] [address] 2116 November, [facility] [place] [facility] [address] [id number] [place] [address] 5677 November, [facility] [place] [facility] [address] [id number] [place] [address]- 4433 Oct, [facility] [place] [facility] [address] [id number] [place] [address]- 0313 Oct, [facility] [place] [facility] [address] [id number] [place] [address]- 5709 Sep, [facility] [place] [facility] [address] [id number] [place] [address]- 4[address] Sep, [facility] [place] [facility] [address] [id number] [place] [address]- 5014 Sep, [facility] [place] [facility] [address] [id number] [place] [address]- 2440 Sep, [facility] [place] [facility] [address] [id number] [place] [address]- 6399 Sep, [facility] [place] [facility] [address] [id number] [place] [address]- 1417 Sep, [facility] [place] [facility] [address] [id number] [place] [address]- 9728 Sep, [facility] [place] [facility] [address] [id number] [place] [address]- 8401 Sep, [facility] [place] [facility] [address] [id number] [place] [address]- 5893 Sep, [facility] [place] [facility] [address] [id number] [place] [address]- 9579 Sep, [facility] [place] [facility] [address] [id number] [place] [address]- 7691 Aug, [facility] [place] [facility] [address] [id number] [place] [address]- 6255 Aug, [facility] [place] [facility] [address] [id number] [place] [address]- 8619 Jul, [facility] [place] [facility] [address] [id number] [place] [address]- 2813 Jul, [facility] [place] [facility] [address] [id number] [place] [address]- 5769 Jul, [facility] [place] [facility] [address] [id number] [place] [address] 3832 Jul, [facility] [place] [facility] [address] [id number] [place] [address]- 3331 Jul, [facility] [place] [facility] [address] [id number] [place] [address]- 0723 Jul, [facility] [place] [facility] [address] [id number] [place] [address]- 7731 Jun, [facility] [place] [facility] [address] [id number] [place] [address]- 5453 Jun, [facility] [place] [facility] [address] [id number] [place] [address]- 3593 Jun, [facility] [place] [facility] [address] [id number], [place] [address] Jun, [facility] [place] [facility] [address] [id number] [place] [address]- 7220 May, [facility] [place] [facility] [address] [id number] [place] [address]- 5449 May, [facility] [place] [facility] [address] [id number] [place] [address]- 7994 May, [facility] [place] [facility] [address] [id number] [place] [address]- 6475 May, [facility] [place] [facility] [address] [id number] [place] [address]- 1833 May, [facility] [place] [facility] [address] [id number] [place] [address]- 7614 Apr, [facility] [place] [facility] [address] [id number] [place] [address]- 0799 Apr, [facility] [place] [facility] [address] [id number] [place] [address]- 0924 Apr, [facility] [place] [facility] [address] [id number] [place] [address]- 3526 Apr, [facility] [place] [facility] [address] [id number] [place] [address]- 2519 Apr, [facility] [place] [facility] [address] [id number] [address]- 3591 Apr, [facility] [place] [facility] [address] [id number], [place] [address]- 7[address] Apr, [facility] [place] [facility] [address] [id number] [place] [address]- 8671 Apr, [facility] [place] [facility] [address] [id number] [place] [address]- 6637 Apr, [facility] [place] [facility] [address] [id number] [place] [address]- 4918 Apr, [facility] [place] [facility] [address] [id number] [place] [address]- 8308 Apr, [facility] [address] [id number] [place] [address]- 2446 Apr, [facility] [place] [facility] [address] [id number] [place] [address]- 0926 Mar, [facility] [address] [id number] [place] [address] 1943 Mar, [facility] [place] [facility] [address] [id number] [place] [address] 2541 Feb, [facility] [address] [id number] [place] [address]- 8995 Jan, [facility] [address] [id number] [place] [address]- 5058 Jan, [facility] [address] [id number] [place] [address]- 4058 Jan, [facility] [address] [id number] [place] [address]- 3243 Jan, [facility] [address] [id number] [place] [address]- 6872 Dec, [facility] [address] [id number] [place] [address]- 6079 Dec, [facility] [place] [facility] [address] [id number] [place] [address]- 7470 Dec, [facility] [address] [id number] [place] [address]- 9656 Dec, [facility] [place] [facility] [address] [id number] [place] [address]- 0736 Dec, [facility] [place] [facility] [address] [id number] [place] [address]- 2546 07 Dec, 2012 [facility] [place] [facility] [address] [id number] [place] [address]- 5454 Dec, [facility] [address] [id number] [place] [address]- 7949 November, [facility] [place] [facility] [address] [id number] [place] [address]- 4099 November, [facility] [address] [id number] [place] [address]- 0387 November, [facility] [place] [facility] [address] [id number] [place] [address]- 5261 Oct, [facility] [address] [id number] [place] [address]- 5874 Oct, [facility] [place] [facility] [address] [id number] [place] [address]- 0880 Oct, [facility] [place] [facility] [address] [id number] [place] [address]- 5174 Oct, [facility] [place] [facility] [address] [id number] [place] [address]- 9998 Oct, [facility] [place] [facility] [address] [id number] [place] [address]- 7550 Sep, [facility] [place] [facility] [address] [id number] [place] [address]- 9897 Sep, [facility] [place] [facility] [address] [id number] [place] [address]- 1483 Sep, [facility] [place] [facility] [address] [id number], [place] [address]- 6188 Sep, [facility] [place] [facility] [address] [id number] [place] [address]- 9330 Aug, [facility] [place] [facility] [address] [id number] [place] [address]- 3465 Aug, [facility] [place] [facility] [address] [id number] [place] [address]- 7632 Aug, [facility] [place] [facility] [address] [id number] [place] [address]- 0376 Aug, [facility] [place] [facility] [address] [id number] [place] [address]- 9370 Jul, [facility] [place] [facility] [address] [id number] [place] [address]- 5366 Jul, [facility] [place] [facility] [address] [id number] [place] [address]- 8147 Jun, [facility] [place] [facility] [address] [id number] [place] [address]- 5163 Jun, [facility] [place] [facility] [address] [id number] [place] [address]- 8025 Jun, [facility] [place] [facility] [address] [id number] [place] [address]- 9073 Jun, [facility] [place] [facility] [address] [id number] [place] [address]- 3588 May, [facility] [place] [facility] [address] [id number] [place] [address]- 0338 May, [facility] [place] [facility] [address] [id number] [place] [address]- 1521 May, [facility] [place] [facility] [address] [facility] [id number] [place] [address]- 3785 May, [facility] [place] [facility] [address] [id number] [place] [address]- 5674 Apr, [facility] [place] [facility] [address] [id number] [place] [address]- 7273 Apr, [facility] [place] [facility] [address] [id number] [place] [address]- 1893 Apr, [facility] [place] [facility] [address] [facility] [id number] [place] [address]- 3967 Apr, [facility] [place] [facility] [address] [id number] [place] [address]- 4269 Apr, [facility] [place] [facility] [address] [id number] [place] [address]- 6135 Apr, [facility] [place] [facility] [address] [id number] [place] [address]- 4540 Apr, [facility] [place] [facility] [address] [id number] [place] [address]- 8260 Apr, [facility] [place] [facility] [address] [id number] [place] [address]- 8207 Apr, [facility] [place] [facility] [address] [id number] [place] [address]- 9746 Apr, [facility] [place] [facility] [address] [id number] [place] [address]- 8822 Feb, [facility] [place] [facility] [address] [id number] [place] [address]- 7143 Feb, [facility] [place] [facility] [address] [id number] [place] [address]- 5257 Jan, [facility] [place] [facility] [address] [id number] [place] [address]- 2946 Jan, [facility] [place] [facility] [address] [id number] [place] [address]- 6617 Jan, [facility] [place] [facility] [address] [id number] [place] [address]- 5832 Jan, [facility] [place] [facility] [address] [id number] [place] [address]- 0431 Jan, [facility] [place] [facility] [address] [id number] [place] [address]- 1350 Jan, [facility] [place] [facility] [address] [id number] [place] [address]- 1496 Dec, [facility] [place] [facility] [address] [id number] [place] [address]- 3926 November, [facility] [place] [facility] [address] [id number], [place] [address]- 2969 November, [facility] [address] [id number] [place] [address]- 6677 November, [facility] [place] [facility] [address] [id number] [place] [address]- 7237 Sep, [facility] [address] [id number] [place] [address]- 3026 Sep, [facility] [place] [facility] [address] [id number] [place] [address]- 4927 Sep, [facility] [address] [id number] [place] [address]- 2984 Sep, [facility] [address] [id number] [place] [address]- 2285 Sep, [facility] [address] [facility] [id number] [place] [address]- 9809 Sep, [facility] [place] [facility] [address] [id number] [place] [address]- 9242 Aug, [facility] [address] [id number] [place] [address]- 6161 Aug, [facility] [place] [facility] [address] [id number] [place] [address]- 5838 Aug, [facility] [address] [id number] [place] [address]- 5535 Jul, [facility] [place] [facility] [address] [id number] [place] [address]- 3162 Jul, [facility] [place] [facility] [address] [id number] [place] [address]- 7342 Jul, [facility] [place] [facility] [address] [id number] [place] [address]- 9044 Jul, [facility] [place] [facility] [address] [facility] [id number] [place] [address]- 2370 Jun, [facility] [place] [facility] [address] [id number] [place] [address]- 2341 08 Jun, 2011 [facility] [place] [facility] [address] [id number] [place] [address]- 7386 06 Jun, 2011 [facility] [place] [facility] [address] [id number] [place] [address] 2546 Jun, [facility] [place] [facility] [address] [id number] [place] [address] 2546 05 Jun, 2011 [facility] [place] [facility] [address] [id number] [place] [address]- 4982 Jun, [facility] [place] [facility] [address] [id number] [place] [address]- 8320 May, [facility] [place] [facility] [address] [id number] [place] [address]- 6985 May, [facility] [place] [facility] [address] [id number] [place] [address]- 9447 May, [facility] [place] [facility] [address] [id number] [place] [address]- 4155 Apr, [facility] [place] [facility] [address] [id number] [place] [address]- 9118 Jan, [facility] [place] [facility] [address] [id number] [place] [address]- 8852 Jun, [facility] [place] [facility] [address] [id number] [place] [address] 2546 20 Jun, 2010 [facility] [place] [facility] [address] [id number] [place] [address] 2546 15 Jun, 2010 [facility] [place] [facility] [address] [id number] [place] [address] 2546 15 Jun, 2010 [facility] [place] [facility] [address] [id number] [place] [address] 2546 15 Jun, 2010 [facility] [place] [facility] [address] [id number] [place] [address]- 1698 13 Jun, 2010 [facility] [address] [id number] [place] [address]- 5366 13 Jun, 2010 [facility] [place] [facility] [address] [id number] [place] [address]- 1776 21 Apr, 2010 [facility] [place] [facility] [address] [facility] [id number] [place] [address] 2546 17 Feb, 2010 [facility] [place] [facility] [address] [id number] [place] [address]- 0946 15 Aug, 2009 [facility] [place] [facility] [address] [id number] [place] [address]- 1536 18 Jul, 2009 [facility] [place] [facility] [address] [id number] [place] [address]- 9816 11 Jul, 2009 [facility] [place] [facility] [address] [id number] [place] [address] 2546 29 Jun, 2009 [facility] [place] [facility] [address] [id number] [place] [address] 254 28 Jun, 2009 [facility] [place] [facility] [address] [id number] [place] [address]- 9103 28 Jun, 2009 [facility] [place] [facility] [address] [facility] [id number] [place] [address]- 3751 22 Jun, 2009 [facility] [place] [facility] [address] [facility] [id number], [place] [address]- 1456 16 Jun, 2009 [facility] [place] [facility] [address] [id number], [place] [address] 2546 09 Jun, 2009 [facility] [place] [facility] [address] [id number] [place] [address] 2546 Jun, [facility] [place] [facility] [address] [facility] [id number], [place] [address] 2546 30 May, 2009 [facility] [place] [facility] [address] [facility] [id number] [place] [address]- 2546 May, [facility] [place] [facility] [address] [id number] [address]- 8730 May, [facility] [id number], [place] [address]- 7529 May, [facility] [id number], [place] [address]- 1588 May, [facility] [address] [id number], [place] [address]- 8260 May, [facility] [id number] [address] May, [facility] [id number] [address]25 Apr, [facility] [id number], [place] [address]- 9484 Apr, [facility] [id number], [place] [address]- 1356 Jan, [facility] [address] [id number] [address]- 3368 Oct, IMMUNIZATIONS No Known Immunizations SOCIAL HISTORY Never Assessed REASON FOR VISIT Lab Order PLAN OF CARE VITAL SIGNS MEDICATIONS Unknown [...]
--- OUTSIDE RECORDS SUMMARY | 2018-11-09 12:47 | XMS REPORT ---
Author Author PRABHA HILL [facility] Address [address] [place] [address] Care Team Providers Care Engine Head Repairer Name Role Phone PRABHA HILL Unavailable PROBLEMS Type Condition ICD9-CM Code [id number] Code Onset Dates Condition Status SNOMED Code Problem Hypoglycemia E16.2 Active 183697624 Problem Hallucinations R44.3 Active 0838905 Problem Unsteady gait R26.81 Active 21239408 Problem 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 Active [id number] Problem Dysuria R30.0 Active 76216388 Problem Anxiety F41.9 Active 94007999 Problem Dementia in other diseases classified elsewhere without behavioral disturbance F02.80 Active 487039653 Problem Other frontotemporal dementia G31.09 Active 825327336 Problem Parkinsons disease G20 Active 07182884 Problem Episodic cluster headache, not intractable G44.019 Active 163125188 Problem Neurogenic orthostatic hypotension G90.3 Active 838091979 Problem Mixed stress and urge urinary incontinence N39.46 Active 917858243 Problem 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 Active 214908280 Problem Essential hypertension I10 Active 31629077 Problem Type 2 diabetes mellitus with unspecified complications E11.8 Active 88893220 Problem PVD (peripheral vascular disease) I73.9 Active 602187616 Problem Dysthymia F34.1 Active 05147634 Problem Polydipsia R63.1 Active 91134966 Problem Coronary artery disease involving [place] coronary artery of [place] heart without angina pectoris I25.10 Active 4975464276821 Problem Hypothyroidism (acquired) E03.9 Active 803852995 Problem Hyperlipemia, mixed E78.2 Active 199780080 Problem Dementia with Lewy bodies G31.83 Active 935243258 Problem Neuropathy G62.9 Active 011081718 Problem Hypernatremia E87.0 Active 73076490 ALLERGIES No Information ENCOUNTERS Encounter Location Date Diagnosis [facility] [address] [address] Apr, Parkinsons disease G20 and Hypothyroidism (acquired) E03.9 [facility] [address] 42456- 1198 Apr, [facility] [address] 00[address] Apr, Dysuria R30.0 and Cystitis N30.90 [facility] [address] 89082- 6601 Mar, Left shoulder pain M25.512 [place] [address] 16942- 3574 Mar, [place] [address] 38567- 0268 Mar, Hyperlipemia, mixed E78.2 ; Essential hypertension I10 and Coronary artery disease involving [place] coronary artery of [place] heart without angina pectoris I25.10 [place] [address] 02886- 2367 Mar, Type 2 diabetes mellitus with unspecified complications E11.8 [place] [address] 04794- 9656 Mar, 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 [place] [address] 62432- 4135 Mar, [place] [address] 70399- 2455 Mar, [place] [address] 26919- 7196 Mar, [place] [address] 63852- 0967 Mar, [place] [address] 17502- 3217 Mar, Cellulitis of left lower extremity L03.116 and Petechial rash R23.3 [facility] [address] [place] [id number] [place] [address] 70470- 6897 Feb, Left shoulder pain M25.512 [facility] [address] [place] [id number] [place] [address] 02541- 4941 Feb, Left shoulder pain M25.512 [facility] [address] 87066- 2693 Feb, 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 [facility] [address] 35382- 0688 Jan, Left shoulder pain M25.512 [facility] [address] 83271- 0756 Dec, Parkinsons disease G20 [facility] [address] 52607- 9681 Dec, Left shoulder pain M25.512 [facility] [address] [place] [id number] [place] [address] 57984- 0022 Dec, Type 2 diabetes mellitus with unspecified complications E11.8 ; Anxiety F41.9 ; Therapeutic drug monitoring Z51.81 and Analgesic use Z79.899 [facility] [address] [place] [id number] [place] [address] 01565- 8220 November, [facility] [address] [place] [id number] [place] [address] 45900- 4565 November, [facility] [address] [place] [id number] [place] [address] 71792- 0496 November, Left shoulder pain M25.512 [facility] [address] [place] [id number] [place] [address] 72742- 3033 Oct, [facility] [address] [place] [id number] [place] [address] 71664 -3602 Oct, [facility] [address] [place] [id number] [place] [address] 38382- 4886 Oct, Parkinsons disease G20 [facility] [id number] [place] [address] 75743 -8907 18 Oct, 2017 Acute cystitis without hematuria N30.00 and Viral upper respiratory tract infection J06.9 [place] [address] [place] [id number] [place] [address] 33647- 5286 Oct, [place] [address] [place] [id number] [place] [address] 90664- 1871 Oct, Type 2 diabetes mellitus with unspecified complications E11.8 [place] [address] [place] [id number] [place] [address] 29347- 2607 Oct, Left shoulder pain M25.512 [place] [address] [place] [id number] [place] [address] 88183- 3324 Oct, Type 2 diabetes mellitus with unspecified complications E11.8 ; Dysuria R30.0 and Neurogenic orthostatic hypotension G90.3 [place] [address] [place] [id number] [place] [address] 79617- 1096 Sep, Left shoulder pain M25.512 [place] [address] [place] [id number] [place] [address] 35409- 4178 12 Sep, 2017 Medicare annual wellness visit, initial Z00.00 ; Parkinsons disease G20 ; Type 2 diabetes mellitus with unspecified complications E11.8 ; Essential hypertension I10 ; Coronary artery disease involving [place] coronary artery of [place] heart without angina pectoris I25.10 ; Hypothyroidism (acquired ) E03.9 ; PVD (peripheral vascular disease) I73.9 ; Dysthymia F34.1 ; Hyperlipemia, mixed E78.2 ; Neuropathy G62.9 ; Encounter for immunization Z23 ; Encounter for other screening for malignant neoplasm of breast Z12.39 and Mixed stress and urge urinary incontinence N39.46 [facility] [address] [place] [address] 48568- 4337 Aug, Parkinsons disease G20 [place] [address] [place] [id number] [place] [address] 61256- 6271 Aug, Type 2 diabetes mellitus with unspecified complications E11.8 ; Left shoulder pain M25.512 and Hypotensive episode I95.9 [place] [address] 37881- 5337 09 Aug, 2017 Coronary artery disease involving [place] coronary artery of [place] heart without angina pectoris I25.10 [place] [address] 54154- 2282 07 Aug, 2017 Type 2 diabetes mellitus with unspecified complications E11.8 [place] [address] 61580- 9877 Jul, Callus of foot L84 [place] [address] 47378- 1304 Jul, [place] [address] 41236- 2826 Jul, Callus of foot L84 ; Episodic cluster headache, not intractable G44.019 ; Type 2 diabetes mellitus with unspecified complications E11.8 and Parkinsons disease G20 [place] [address] 31091- 8708 Jul, [place] [address] 39133- 7841 Jul, [place] [address] 06829- 7920 Jun, Type 2 diabetes mellitus with unspecified complications E11.8 ; Unsteady gait R26.81 ; Forgetfulness R68.89 and Hallucinations R44.3 [place] [address] 21210- 8471 Jun, [place] [address] 35938- 8373 Jun, Left shoulder pain M25.512 [place] [address] 76511- 9520 May, Hypernatremia E87.0 and Polydipsia R63.1 [facility] [address] [place] [id number] [place] [address] 92917- 5208 May, Hypernatremia E87.0 and Polydipsia R63.1 [place] [address] [place] [id number] [place] [address] 05006- 8775 08 May, 2017 Hypoglycemia E16.2 ; Dysuria R30.0 ; Unsteadiness on feet R26.81 ; Forgetfulness R68.89 ; Type 2 diabetes mellitus with unspecified complications E11.8 and Yeast infection involving the vagina and surrounding area B37.3 [place] [address] [place] [id number] [place] [address] 72487- 0663 May, Acute cystitis without hematuria N30.00 [facility] [address] [place] [id number] [place] [address] 14798 -3910 Apr, Dysuria R30.0 and Acute cystitis without hematuria N30.00 [facility] [address] [place] [address] [id number] [place] [address] 12277- 2235 Apr, Hypernatremia E87.0 and Polydipsia R63.1 [place] [address] [place] [id number] [place] [address] 96819- 4210 Apr, Vertigo R42 and Type 2 diabetes mellitus with unspecified complications E11.8 [place] [address] [place] [id number] [place] [address] 90325- 4162 Mar, [facility] [address] [place] [id number] [place] [address] 92075- 6442 19 Mar, 2017 Left shoulder pain M25.512 [place] [address] [place] [id number] [place] [address] 39730- 6316 13 Mar, 2017 Vertigo R42 [place] [address] [place] [id number] [place] [address] 86949- 2474 12 Mar, 2017 Polydipsia R63.1 [place] [address] 23379- 4596 12 Mar, 2017 Polydipsia R63.1 [place] [address] 02620- 1293 11 Mar, 2017 Vertigo R42 [place] [address] 40742- 2321 07 Mar, 2017 Type 2 diabetes mellitus with unspecified complications E11.8 ; Vertigo R42 ; Polydipsia R63.1 ; Polyuria R35.8 ; Hypothyroidism ( acquired) E03.9 ; Abnormal urinalysis R82.90 and Dysthymia F34.1 [place] [address] 39727- 5083 05 Mar, 2017 Coronary artery disease of [place] artery with stable angina pectoris, unspecified whether [place] or transplanted heart I25.118 ; Systolic CHF, chronic I50.22 ; Hyperlipemia, mixed E78.2 and Essential hypertension I10 [facility] [place] [facility] [address] [id number] Feb, Dental caries K02.9 [place] [address] 53671- 6089 Feb, Type 2 diabetes mellitus with diabetic neuropathy, unspecified E11.40 [place] [address] 73389- 9769 23 Dec, 2016 Left shoulder pain M25.512 [place] [address] 07922- 6432 Dec, [place] [address] 28826- 8167 Dec, Type 2 diabetes mellitus with unspecified complications E11.8 [facility] [place] [facility] [address] [id number] Dec, Dental examination Z01.20 [facility] [address] 15982- 9319 08 Dec, 2016 Type 2 diabetes mellitus with diabetic neuropathy, unspecified E11.40 [facility] [address] [address]- 0646 Dec, [facility] [address] [place] [id number] [place] [address] 71545- 6716 Dec, Type 2 diabetes mellitus with diabetic neuropathy, unspecified E11.40 [facility] [address] [address]- 4866 November, Left shoulder pain M25.512 [facility] [address] [place] [id number] [place] [address] 95684- 4276 November, [place] [address] [place] [id number] [place] [address] 677100- 6481 November, Type 2 diabetes mellitus with unspecified complications E11.8 and Dysuria R30.0 [place] [address] [place] [address] 58114- 9538 Oct, Left shoulder pain M25.512 [place] [address] [place] [id number] [place] [address] 25583- 4658 Sep, Left shoulder pain M25.512 [place] [address] [place] [id number] [place] [address] 02317- 4556 Sep, Pre-op testing Z01.818 [place] [address] [address]- 6776 Sep, Pre-op testing Z01.818 [place] [address] [place] [id number] [place] [address] 65132 2546 Sep, Pre-op testing Z01.818 [facility] [address] [place] [address] 10664 2546 Sep, Pre-op testing Z01.818 and Mouth pain K13.79 [facility] [address] [address] 2546 Sep, Left shoulder pain M25.512 [place] [address] [place] [id number] [place] [address] 76286- 4590 08 Aug, 2016 Other eczema L30.[address] 66820- 7332 06 Aug, 2016 PVD (peripheral vascular disease) I73.9 ; Type 2 diabetes mellitus with unspecified complications E11.8 ; Acute cystitis with hematuria N30.01 ; Other eczema L30.8 ; Dysuria R30.0 and Left shoulder pain M25.512 [facility] [place] [id number] [place] [address] 54777 -2053 Jul, Otalgia of right ear H92.01 and Blood in ear canal, right H92.[address] 45331- 8369 Jul, Arthralgia, unspecified joint M25.50 ; PVD (peripheral vascular disease) I73.9 and Neuropathy G62.9 [place] [id number] [place] [address] 25335- 3369 Jul, [place] [id number] [place] [address] 50590- 3774 Jun, Medicare annual wellness visit, initial Z00.00 ; Cervicalgia M54.2 ; Radiculopathy of cervical region M54.12 ; Encounter for immunization Z23 ; Type 2 diabetes mellitus with unspecified complications E11.8 and Essential hypertension I10 [place] [id number] [place] [address] 36484- 6510 Jun, [address] 61508- 9793 14 May, 2016 Hypothyroidism (acquired) E03.[address] 36811- 7018 10 May, 2016 Dysuria R30.0 ; Essential hypertension I10 ; Hypothyroidism (acquired) E03.9 and PVD (peripheral vascular disease) I73.9 [facility] [address] [place] [address] [address] May, Burning with urination R30.0 and Acute cystitis with hematuria N30.01 [place] [address] [place] [id number] [place] [address] 61755- 7143 May, Dental examination Z01.20 [place] [address] [place] [id number] [place] [address] 84346- 2977 May, Hypothyroidism (acquired) E03.9 [place] [address] [place] [id number] [place] [address] 17486- 3351 Feb, [place] [address] [place] [id number] [place] [address] 31825- 5401 Feb, 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 ; PVD ( peripheral vascular disease) I73.9 ; Type 2 diabetes mellitus with unspecified complications E11.8 and Essential hypertension I10 [place] [address] [place] [id number] [place] [address] 17334- 1840 Jan, [place] [address] [place] [id number] [place] [address] 62148- 9354 Jan, Hypothyroidism (acquired) E03.9 [place] [address] [place] [id number] [place] [address] 60475- 0820 Jan, [place] [address] [address]- 4865 Jan, [place] [address] [place] [id number] [place] [address] 96907- 8203 Jan, Type 2 diabetes mellitus with unspecified complications E11.8 ; 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 and Essential ( primary) hypertension I10 [place] [address] [place] [id number] [place] [address] 69068- 3910 Jan, Type 2 diabetes mellitus with unspecified complications E11.8 ; 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 ; Essential hypertension I10 and PVD (peripheral vascular disease) I73.9 [place] [address] [place] [address] [address]- 3822 Jan, [facility] [address] [place] [id number] [place] [address] 62614- 4509 Jan, [facility] [address] [place] [id number] [place] [address] 67896- 4152 Jan, [place] [address] [place] [id number] [place] [address] 78158- 9606 Jan, Weakness R53.1 ; Fatigue, unspecified type R53.83 ; PVD ( peripheral vascular disease) I73.9 ; Acute osteomyelitis of other site M86.18 ; Type 2 diabetes mellitus with diabetic neuropathy, unspecified E11.40 and 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 [place] [address] [place] [id number] [place] [address] 00418- 9524 Dec, [place] [address] [place] [id number] [place] [address] 85627- 8771 Dec, Type 2 diabetes mellitus with unspecified complications E11.8 [place] [address] [place] [id number] [place] [address] 05652- 4491 Dec, [place] [address] [place] [id number] [place] [address] 74217- 9202 Dec, Pressure ulcer, unspecified pressure ulcer stage L89.90 and Type 2 diabetes mellitus with unspecified complications E11.8 [facility] [address] [address] -[address]28 Dec, Toe infection L08.9 [facility] [address] [place] [address] 64464- 2265 November, Dental caries K02.9 [place] [address] [place] [id number] [place] [address] 11024- 9366 November, [place] [address] [place] [id number] [place] [address] 38775- 1214 November, Dental examination Z01.20 [place] [address] [place] [id number] [place] [address] 85992- 2849 Sep, Lipoma of torso D17.1 and Thoracic neuritis M54.14 [place] [address] [place] [id number] [place] [address] 85591- 8917 Sep, [facility] [address] [place] [id number] [place] [address] 08280- 3178 Aug, [facility] [address] [place] [id number] [place] [address] 69554 -1618 Jul, Dysuria R30.0 and UTI (urinary tract infection) N39.0 [place] [address] 47714- 8693 Jun, Left shoulder pain M25.512 [place] [address] [place] [id number] [place] [address] 02556- 2519 May, Shoulder pain, left M25.512 [place] [address] [place] [id number] [place] [address] 45010- 3121 May, [place] [address] 84992- 1852 May, [place] [address] [place] [id number] [place] [address] 39331- 8549 May, Left shoulder pain M25.512 [place] [address] [place] [id number] [place] [address] 82597- 4035 May, [place] [address] [place] [id number] [place] [address] 79628- 0790 Apr, Encounter for immunization Z23 [place] [address] 92487- 8439 08 Apr, 2015 Urinary tract infection, site not specified N39.0 ; Hypotension, unspecified I95.9 ; Type 2 diabetes mellitus with unspecified complications E11.8 and Generalized edema R60.1 [place] [address] 83016- 8306 Apr, [facility] [address] [place] [id number] [place] [address] 07558- 1846 Mar, Diabetes with other specified manifestations, type II or unspecified type, not stated as uncontrolled 250.80 [facility] [address] [place] [id number] [place] [address] 44317- 2546 Feb, Gout 274.9 and Diabetes 250.00 [facility] [address] 70575- 5646 Jan, [facility] [address] [place] [id number] [place] [address] 83224- 8086 November, CAD (coronary artery disease) 414.00 and CHF (congestive heart failure) 428.0 [facility] [address] [place] [id number] [place] [address] 13992- 5136 Oct, [facility] [address] [place] [id number] [place] [address] 21369- 3126 Oct, [facility] [address] [place] [id number] [place] [address] 67912- 0176 Oct, [facility] [address] [id number] [place] [address] 22471- 1616 Sep, [facility] [address] [address]- 2546 Sep, [facility] [address] [place] [id number] [place] [address] 10628- 2546 Sep, [facility] [address] [place] [address] 95160- 2546 Sep, [facility] [address] [place] [id number] [place] [address] 28966- 2546 Aug, [facility] [address] [address]- 2546 Aug, [facility] [address] [place] [id number] [place] [address] 88648- 3550 Aug, [facility] [place] [facility] [address] [id number] [place] [address]- 4966 Aug, [facility] [place] [facility] [address] [id number] [place] [address]- 4732 Aug, [facility] [place] [facility] [address] [id number] [place] [address]- 0876 Aug, [facility] [place] [facility] [address] [id number] [place] [address]- 9957 Aug, [facility] [place] [facility] [address] [id number] [place] [address]- 2208 Aug, [facility] [place] [facility] [address] [id number] [place] [address]- 1154 Jul, [facility] [place] [facility] [address] [facility] [id number] [place] [address]- 7922 Jul, [facility] [place] [facility] [address] [id number] [place] [address]- 6025 Jul, [facility] [place] [facility] [address] [facility] [id number] [place] [address]- 1838 Jul, [facility] [place] [facility] [address] [facility] [id number] [place] [address]- 1895 Jul, [facility] [place] [facility] [address] [facility] [id number], [place] [address]- 4621 Jul, [facility] [place] [facility] [address] [id number], [place] [address]- 8969 Jul, [facility] [place] [facility] [address] [id number], [place] [address]- 0720 Jul, [facility] [place] [facility] [address] [facility] [id number], [place] [address]- 8476 Jul, [facility] [place] [facility] [address] [facility] [id number], [place] [address]- 3735 Jul, [facility] [place] [facility] [address] [id number] [place] [address]- 9709 Jun, [facility] [place] [facility] [address] [id number] [place] 8292 Jun, [facility] [place] [facility] [address] [id number] [place] 2453 Jun, [facility] [place] [facility] [address] [id number] [place] 3557 Jun, [facility] [place] [facility] [address] [id number] [place] [address]- 8205 Jun, [facility] [place] [facility] [address] [id number] [place] [address]- 2852 Jun, [facility] [place] [facility] [address] [id number] [place] [address]- 7711 Jun, [facility] [place] [facility] [address] [id number] [place] [address] Jun, [facility] [place] [facility] [address] [id number] [place] [address] Jun, [facility] [place] [facility] [address] [id number] [place] [address] Jun, [facility] [place] [facility] [address] [id number] [place] [address] May, [facility] [place] [facility] [address] [id number] [place] [address] 14 May, 2014 [facility] [place] [facility] [address] [id number] [place] [address] 18 Mar, 2014 [facility] [place] [facility] [address] [id number] [place] [address] 18 Mar, 2014 [facility] [place] [facility] [address] [id number] [place] [address] 10 Mar, 2014 [facility] [place] [facility] [address] [id number] [place] [address] Mar, [facility] [place] [facility] [address] [id number] [place] [address] Feb, [facility] [place] [facility] [address] [id number] [place] [address] Feb, [facility] [place] [facility] [address] [id number] [place] [address] Feb, [facility] [place] [facility] [address] [id number] [place] [address] Jan, [facility] [place] [facility] [address] [id number] [place] [address] Jan, [facility] [place] [facility] [address] [id number] [place] [address] Jan, [facility] [place] [facility] [address] [id number] [place] [address] Jan, [facility] [place] [facility] [address] [id number] [place] [address] Jan, [facility] [place] [facility] [address] [id number] [place] [address] Jan, [facility] [place] [facility] [address] [id number] [place] [address] Jan, [facility] [place] [facility] [address] [id number] [place] [address] 2001 Jan, [facility] [place] [facility] [address] [id number] [place] [address] 7144 Jan, [facility] [place] [facility] [address] [id number] [place] [address]879 Jan, [facility] [place] [facility] [address] [id number] [place] [address] Dec, [facility] [place] [facility] [address] [id number] [place] [address] 5408 Dec, [facility] [place] [facility] [address] [id number] [place] [address] November, [facility] [address] [id number] [place] [address] 6693 November, [facility] [place] [facility] [address] [id number] [place] [address] November, [facility] [place] [facility] [address] [id number] [place] [address]- 7922 November, [facility] [place] [facility] [address] [id number] [place] [address] 8713 November, [facility] [place] [facility] [address] [id number] [place] [address] 5030 November, [facility] [place] [facility] [address] [id number] [place] [address]- 6735 November, [facility] [place] [facility] [address] [id number] [place] [address]- 2352 Oct, [facility] [place] [facility] [address] [id number] [place] [address]- 5314 Oct, [facility] [place] [facility] [address] [id number] [place] [address]- 2196 Sep, [facility] [place] [facility] [address] [id number] [place] [address]- 3036 Sep, [facility] [place] [facility] [address] [id number] [place] [address]- 6922 Sep, [facility] [place] [facility] [address] [id number] [place] [address]- 7332 Sep, [facility] [place] [facility] [address] [id number] [place] [address]- 2403 Sep, [facility] [place] [facility] [address] [id number] [place] [address]- 5505 Sep, [facility] [place] [facility] [address] [id number] [place] [address]- 9669 Sep, [facility] [place] [facility] [address] [id number] [place] [address]- 4155 Sep, [facility] [place] [facility] [address] [id number] [place] [address]- 1496 Sep, [facility] [place] [facility] [address] [id number] [place] [address]- 9194 Sep, [facility] [place] [facility] [address] [id number] [place] [address]- 6023 Aug, [facility] [place] [facility] [address] [id number] [place] [address]- 8800 Aug, [facility] [place] [facility] [address] [id number] [place] [address]- 2684 Jul, [facility] [place] [facility] [address] [id number] [place] [address]- 5585 Jul, [facility] [place] [facility] [address] [id number] [place] [address]- 1041 Jul, [facility] [place] [facility] [address] [id number] [place] [address]- 3987 Jul, [facility] [place] [facility] [address] [id number] [place] [address]- 7706 Jul, [facility] [place] [facility] [address] [id number] [place] [address]- 57[address] Jul, [facility] [place] [facility] [address] [id number] [place] [address]- 6928 Jun, [facility] [place] [facility] [address] [id number] [place] [address]- 6696 Jun, [facility] [place] [facility] [address] [id number] [place] [address]- 9740 Jun, [facility] [place] [facility] [address] [id number] [place] [address]- 7575 Jun, [facility] [place] [facility] [address] [id number], [place] [address] 14 May, 2013 [facility] [place] [facility] [address] [id number] [place] [address]- 1686 14 May, 2013 [facility] [place] [facility] [address] [id number] [place] [address]- 5746 May, [facility] [place] [facility] [address] [id number] [place] [address]- 5085 11 May, 2013 [facility] [place] [facility] [address] [id number] [place] [address]- 4045 07 May, 2013 [facility] [place] [facility] [address] [id number] [place] [address]- 7927 31 Apr, 2013 [facility] [place] [facility] [address] [id number] [place] [address]- 1659 31 Apr, 2013 [facility] [place] [facility] [address] [id number] [place] [address]- 1502 Apr, [facility] [place] [facility] [address] [id number] [place] [address]- 8265 28 Apr, 2013 [facility] [place] [facility] [address] [id number] [place] [address]- 8754 Apr, [facility] [place] [facility] [address] [id number] [place] [address]- 1844 Apr, [facility] [place] [facility] [address] [id number], [place] [address] 73[address] Apr, [facility] [place] [facility] [address] [id number], [place] [address]- 9481 Apr, [facility] [place] [facility] [address] [id number] [place] [address]- 7774 Apr, [facility] [place] [facility] [address] [id number] [place] [address]- 0791 Apr, [facility] [place] [facility] [address] [id number] [place] [address]- 6166 Apr, [facility] [place] [facility] [address] [id number] [place] [address]- 2546 Apr, [facility] [address] [id number] [place] [address]- 5641 Mar, [facility] [place] [facility] [address] [id number] [place] [address] 2546 Mar, [facility] [address] [id number] [place] [address] 2546 Feb, [facility] [address] [id number] [place] [address]- 0097 Jan, [facility] [address] [id number] [place] [address]- 4393 Jan, [facility] [address] [id number] [place] [address]- 0842 Jan, [facility] [address] [id number] [place] [address]- 4754 Jan, [facility] [address] [id number] [place] [address]- 0040 Dec, [facility] [place] [facility] [address] [id number] [place] [address]- 0940 Dec, [facility] [address] [id number] [place] [address]- 3430 Dec, [facility] [place] [facility] [address] [id number] [place] [address]- 9950 Dec, [facility] [address] [id number] [place] [address]- 6262 Dec, [facility] [place] [facility] [address] [id number] [place] [address]- 8128 Dec, [facility] [place] [facility] [address] [id number] [place] [address]- 2546 Dec, [facility] [place] [facility] [address] [id number] [place] [address]- 5151 November, [facility] [address] [id number] [place] [address]- 1210 November, [facility] [address] [id number] [place] [address]- 8916 November, [facility] [address] [id number] [place] [address]- 6018 Oct, [facility] [place] [facility] [address] [id number] [place] [address]- 6496 Oct, [facility] [address] [id number] [place] [address]- 0604 Oct, [facility] [address] [id number] [place] [address]- 3116 Oct, [facility] [address] [id number] [place] [address]- 9652 Oct, [facility] [address] [id number] [place] [address]- 1020 Sep, [facility] [address] [id number] [place] [address]- 1472 Sep, [facility] [address] [id number] [place] [address]- 4941 Sep, [facility] [place] [facility] [address] [id number] [place] [address]- 5804 Sep, [facility] [place] [facility] [address] [id number], [place] [address]- 1597 Aug, [facility] [place] [facility] [address] [id number] [place] [address]- 3933 Aug, [facility] [place] [facility] [address] [id number] [place] [address]- 9827 Aug, [facility] [place] [facility] [address] [id number] [place] [address]- 8398 Aug, [facility] [place] [facility] [address] [id number] [place] [address]- 9364 30 Jul, 2012 [facility] [place] [facility] [address] [id number] [place] [address]- 9883 Jul, [facility] [place] [facility] [address] [id number] [place] [address]- 6170 Jun, [facility] [place] [facility] [address] [id number] [place] [address]- 3346 Jun, [facility] [place] [facility] [address] [id number] [place] [address]- 0847 Jun, [facility] [place] [facility] [address] [id number] [place] [address]- 0720 Jun, [facility] [place] [facility] [address] [id number] [place] [address]- 0278 May, [facility] [place] [facility] [address] [id number] [place] [address]- 4491 May, [facility] [place] [facility] [address] [id number] [place] [address]- 0756 May, [facility] [place] [facility] [address] [id number] [place] [address]- 2991 May, [facility] [place] [facility] [address] [facility] [id number] [place] [address]- 3630 Apr, [facility] [place] [facility] [address] [id number] [place] [address]- 7938 Apr, [facility] [place] [facility] [address] [id number] [place] [address]- 1263 Apr, [facility] [place] [facility] [address] [id number] [place] [address]- 6164 Apr, [facility] [place] [facility] [address] [facility] [id number] [place] [address]- 3265 Apr, [facility] [place] [facility] [address] [id number] [place] [address]- 0571 Apr, [facility] [place] [facility] [address] [id number] [place] [address]- 6453 Apr, [facility] [place] [facility] [address] [id number] [place] [address]- 9638 Apr, [facility] [place] [facility] [address] [id number] [place] [address]- 3894 Apr, [facility] [place] [facility] [address] [id number] [place] [address]- 2924 Apr, [facility] [place] [facility] [address] [id number] [place] [address]- 7573 Feb, [facility] [place] [facility] [address] [id number] [place] [address]- 1943 Feb, [facility] [place] [facility] [address] [id number] [place] [address]- 9566 Jan, [facility] [place] [facility] [address] [id number] [place] [address]- 3431 Jan, [facility] [place] [facility] [address] [id number] [place] [address]- 1597 Jan, [facility] [place] [facility] [address] [id number] [place] [address]- 5873 Jan, [facility] [place] [facility] [address] [id number] [place] [address]- 4112 Jan, [facility] [place] [facility] [address] [id number] [place] [address]- 8109 Jan, [facility] [place] [facility] [address] [id number] [place] [address]- 1544 Dec, [facility] [place] [facility] [address] [id number] [place] [address]- 8771 November, [facility] [place] [facility] [address] [id number] [place] [address]- 4345 November, [facility] [place] [facility] [address] [id number], [place] [address]- 1766 November, [facility] [address] [id number] [place] [address]- 9997 Sep, [facility] [place] [facility] [address] [id number] [place] [address]- 6556 Sep, [facility] [place] [facility] [address] [id number] [place] [address]- 0781 Sep, [facility] [place] [facility] [address] [id number] [place] [address]- 9502 Sep, [facility] [place] [facility] [address] [id number] [place] [address]- 0341 Sep, [facility] [place] [facility] [address] [id number] [place] [address]- 4409 Sep, [facility] [address] [facility] [id number] [place] [address]- 3081 Aug, [facility] [place] [facility] [address] [id number] [place] [address]- 4848 Aug, [facility] [place] [facility] [address] [facility] [id number] [place] [address]- 2576 Aug, [facility] [place] [facility] [address] [facility] [id number] [place] [address]- 1145 Jul, [facility] [place] [facility] [address] [id number] [place] [address]- 4276 Jul, [facility] [place] [facility] [address] [id number] [place] [address]- 6091 Jul, [facility] [place] [facility] [address] [id number] [place] [address]- 9627 Jul, [facility] [place] [facility] [address] [id number] [place] [address]- 3016 Jun, [facility] [place] [facility] [address] [facility] [id number] [place] [address]- 3423 Jun, [facility] [place] [facility] [address] [id number] [place] [address]- 6305 06 Jun, 2011 [facility] [place] [facility] [address] [id number] [place] [address]- 2726 Jun, [facility] [place] [facility] [address] [id number] [place] [address] 2546 Jun, [facility] [place] [facility] [address] [id number] [place] [address] 2546 Jun, [facility] [place] [facility] [address] [id number] [place] [address]- 2083 May, [facility] [place] [facility] [address] [id number] [place] [address]- 5926 May, [facility] [place] [facility] [address] [id number] [place] [address]- 1669 May, [facility] [place] [facility] [address] [id number] [place] [address]- 7709 Apr, [facility] [place] [facility] [address] [id number] [place] [address]- 2242 Jan, [facility] [place] [facility] [address] [id number] [place] [address]- 5319 Jun, [facility] [place] [facility] [address] [id number] [place] [address] 2546 Jun, [facility] [place] [facility] [address] [id number] [place] [address] 2546 15 Jun, 2010 [facility] [place] [facility] [address] [id number] [place] [address] 2546 15 Jun, 2010 [facility] [place] [facility] [address] [id number] [place] [address] 2546 15 Jun, 2010 [facility] [place] [facility] [address] [id number] [place] [address] 2546 13 Jun, 2010 [facility] [place] [facility] [address] [id number] [place] [address]- 3173 13 Jun, 2010 [facility] [address] [id number] [place] [address]- 2037 21 Apr, 2010 [facility] [place] [facility] [address] [id number] [place] [address]- 7636 17 Feb, 2010 [facility] [address] [facility] [id number] [place] [address] 2546 15 Aug, 2009 [facility] [place] [facility] [address] [id number] [place] [address] 2546 18 Jul, 2009 [facility] [address] [id number] [place] [address]- 9556 Jul, [facility] [address] [id number] [place] [address]- 4743 29 Jun, 2009 [facility] [address] [id number] [place] [address] 2546 Jun, [facility] [place] [facility] [address] [id number] [place] [address]- 1455 28 Jun, 2009 [facility] [address] [id number] [place] [address]- 9221 22 Jun, 2009 [facility] [place] [facility] [address] [facility] [id number] [place] [address]- 6714 16 Jun, 2009 [facility] [address] [facility] [id number], [place] [address]- 0607 Jun, [facility] [place] [facility] [address] [id number], [place] [address] 2548 Jun, [facility] [place] [facility] [address] [id number] [place] [address] 2546 30 May, 2009 [facility] [place] [facility] [address] [facility] [id number], [place] [address] 2544 May, [facility] [place] [facility] [address] [facility] [id number] [place] [address]- 2546 May, [facility] [place] [facility] [address] [id number], [place] [address]- [address]01 May, [facility] [address] [id number], [place] [address]- 5474 May, [facility] [id number], [place] [address]- 7968 May, [facility] [address] [id number], [place] [address]- 3290 May, [facility] [address] [id number] 6756 Apr, [facility] [id number] 5737 Apr, [facility] [id number], [place] [address]- 9296 Jan, [facility] [id number], [place] [address]- 7057 Oct, IMMUNIZATIONS No Known Immunizations SOCIAL HISTORY Never Assessed REASON FOR VISIT Increase request PLAN OF CARE VITAL SIGNS MEDICATIONS Medication Instructions Dosage Frequency Start Date End Date Duration Status Zoloft 50 MG Orally at night 1 tablet Mar, 30 day(s) Active RESULTS No Results PROCEDURES No Known [...]
--- OUTSIDE RECORDS SUMMARY | 2018-11-09 12:48 | XMS REPORT ---
Author Author PRABHA HILL [facility] Address [address] [place] [address] Care Team Providers [facility] [employer] [facility] Director Name Role Phone PRABHA HILL Unavailable PROBLEMS Type Condition ICD9-CM Code [id number] Code Onset Dates Condition Status SNOMED Code Problem Hypoglycemia E16.2 Active 624530539 Problem Hallucinations R44.3 Active 8045337 Problem Unsteady gait R26.81 Active 85772419 Problem 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 Active [id number] Problem Dysuria R30.0 Active 33055185 Problem Anxiety F41.9 Active 54967737 Problem Dementia in other diseases classified elsewhere without behavioral disturbance F02.80 Active 770272971 Problem Other frontotemporal dementia G31.09 Active 541625649 Problem Parkinsons disease G20 Active 46245364 Problem Episodic cluster headache, not intractable G44.019 Active 042853518 Problem Neurogenic orthostatic hypotension G90.3 Active 379008191 Problem Mixed stress and urge urinary incontinence N39.46 Active 710458209 Problem 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 Active 789719601 Problem Essential hypertension I10 Active 36686441 Problem Type 2 diabetes mellitus with unspecified complications E11.8 Active 31773939 Problem PVD (peripheral vascular disease) I73.9 Active 024281703 Problem Dysthymia F34.1 Active 04782593 Problem Polydipsia R63.1 Active 58033673 Problem 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 [place] [address] 54864- 2078 Mar, Type 2 diabetes mellitus with unspecified complications E11.8 [place] [address] 56926- 3048 17 Mar, 2018 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 [place] [address] 30139- 2851 Mar, [facility] [id number] [place] [address] 03739- 7487 Mar, [place] [address] 43185- 0975 Mar, [place] [id number] [place] [address] 51475- 9876 Mar, [place] [address] 68718- 4299 Mar, Cellulitis of left lower extremity L03.116 and Petechial rash R23.3 [place] [address] 12204- 3309 Feb, Left shoulder pain M25.512 [facility] [id number] [place] [address] 64944- 9031 Feb, Left shoulder pain M25.512 [facility] [id number] [place] [address] 57538- 7293 Feb, 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 [facility] [address] 93983- 2881 Jan, Left shoulder pain M25.512 [facility] [address] 38168- 0158 Dec, Parkinsons disease G20 [facility] [address] 13882- 7110 Dec, Left shoulder pain M25.512 [facility] [id number] [place] [address] 32259- 4003 Dec, Type 2 diabetes mellitus with unspecified complications E11.8 ; Anxiety F41.9 ; Therapeutic drug monitoring Z51.81 and Analgesic use Z79.899 [facility] [address] 37168- 4754 November, [facility] [id number] [place] [address] 64893- 1068 November, [facility] [id number] [place] [address] 84397- 2063 November, Left shoulder pain M25.512 [facility] [id number] [place] [address] 37208- 3216 Oct, [facility] [id number] [place] [address] 71539 -1993 Oct, [facility] [id number] [place] [address] 63644- 6575 Oct, Parkinsons disease G20 [facility] [id number] [place] [address] 85034 -9828 Oct, Acute cystitis without hematuria N30.00 and Viral upper respiratory tract infection J06.9 [place] [id number] [place] [address] 61230- 0037 Oct, [place] [id number] [place] [address] 51587- 4776 Oct, Type 2 diabetes mellitus with unspecified complications E11.8 [place] [id number] [place] [address] 96713- 8508 Oct, Left shoulder pain M25.512 [place] [id number] [place] [address] 22434- 9086 Oct, Type 2 diabetes mellitus with unspecified complications E11.8 ; Dysuria R30.0 and Neurogenic orthostatic hypotension G90.3 [place] [id number] [place] [address] 21713- 0178 Sep, Left shoulder pain M25.512 [place] [id number] [place] [address] 07029- 0545 Sep, Medicare annual wellness visit, initial Z00.00 ; Parkinsons disease G20 ; Type 2 diabetes mellitus with unspecified complications E11.8 ; Essential hypertension I10 ; 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 ; Hypothyroidism (acquired ) E03.9 ; PVD (peripheral vascular disease) I73.9 ; Dysthymia F34.1 ; Hyperlipemia, mixed E78.2 ; Neuropathy G62.9 ; Encounter for immunization Z23 ; Encounter for other screening for malignant neoplasm of breast Z12.39 and Mixed stress and urge urinary incontinence N39.46 [place] [id number] [place] [address] 29648- 4385 Aug, Parkinsons disease G20 [place] [id number] [place] [address] 85991- 0378 Aug, Type 2 diabetes mellitus with unspecified complications E11.8 ; Left shoulder pain M25.512 and Hypotensive episode I95.9 [place] [id number] [place] [address] 48698- 9435 09 Aug, 2017 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 [place] [id number] [place] [address] 17008- 5823 07 Aug, 2017 Type 2 diabetes mellitus with unspecified complications E11.8 [place] [address] 29718- 1599 Jul, Callus of foot L84 [place] [address] 97563- 7040 Jul, [place] [address] 76179- 2829 Jul, Callus of foot L84 ; Episodic cluster headache, not intractable G44.019 ; Type 2 diabetes mellitus with unspecified complications E11.8 and Parkinsons disease G20 [place] [id number] [place] [address] 85908- 2387 Jul, [place] [id number] [place] [address] 10678- 1794 Jul, [place] [id number] [place] [address] 58042- 2507 Jun, Type 2 diabetes mellitus with unspecified complications E11.8 ; Unsteady gait R26.81 ; Forgetfulness R68.89 and Hallucinations R44.3 [place] [id number] [place] [address] 93582- 8196 Jun, [place] [id number] [place] [address] 83115- 6007 Jun, Left shoulder pain M25.512 [place] [id number] [place] [address] 46197- 9760 May, Hypernatremia E87.0 and Polydipsia R63.[address] 58612- 2033 May, Hypernatremia E87.0 and Polydipsia R63.1 [place] [id number] [place] [address] 00792- 7030 May, Hypoglycemia E16.2 ; Dysuria R30.0 ; Unsteadiness on feet R26.81 ; Forgetfulness R68.89 ; Type 2 diabetes mellitus with unspecified complications E11.8 and Yeast infection involving the vagina and surrounding area B37.3 [place] [id number] [place] [address] 40944- 0899 May, Acute cystitis without hematuria N30.00 [facility] [address] 58751 -5247 Apr, Dysuria R30.0 and Acute cystitis without hematuria N30.00 [place] [id number] [place] [address] 48475- 4257 Apr, Hypernatremia E87.0 and Polydipsia R63.1 [place] [id number] [place] [address] 13473- 2980 Apr, Vertigo R42 and Type 2 diabetes mellitus with unspecified complications E11.8 [place] [id number] [place] [address] 74417- 4682 Mar, [place] [id number] [place] [address] 30672- 7410 19 Mar, 2017 Left shoulder pain M25.512 [place] [id number] [place] [address] 75419- 9938 13 Mar, 2017 Vertigo R42 [place] [id number] [place] [address] 21852- 6199 12 Mar, 2017 Polydipsia R63.1 [place] [id number] [place] [address] 60684- 7608 Mar, Polydipsia R63.1 [place] [address] 81331- 1295 11 Mar, 2017 Vertigo R42 [place] [address] 92362- 8154 07 Mar, 2017 Type 2 diabetes mellitus with unspecified complications E11.8 ; Vertigo R42 ; Polydipsia R63.1 ; Polyuria R35.8 ; Hypothyroidism ( acquired) E03.9 ; Abnormal urinalysis R82.90 and Dysthymia F34.1 [place] [address] 76135- 5245 05 Mar, 2017 Coronary artery disease of cabazon artery with stable angina pectoris, unspecified whether cabazon or transplanted heart I25.118 ; Systolic CHF, chronic I50.22 ; Hyperlipemia, mixed E78.2 and Essential hypertension I10 [facility] [address] [id number] Feb, Dental caries K02.9 [place] [address] 55915- 7778 Feb, Type 2 diabetes mellitus with diabetic neuropathy, unspecified E11.40 [place] [address] 38288- 1895 23 Dec, 2016 Left shoulder pain M25.512 [place] [address] 44726- 4330 16 Dec, 2016 [place] [id number] [place] [address] 48725- 3129 Dec, Type 2 diabetes mellitus with unspecified complications E11.8 [facility] [address] [id number] Dec, Dental examination Z01.20 [place] [address] 79678- 1537 08 Dec, 2016 Type 2 diabetes mellitus with diabetic neuropathy, unspecified E11.40 [facility] [id number] [place] [address] 65352- 5314 07 Dec, 2016 [place] [id number] [place] [address] 95848- 6323 Dec, Type 2 diabetes mellitus with diabetic neuropathy, unspecified E11.40 [place] [address] 20096- 1303 November, Left shoulder pain M25.512 [place] [address] 68942- 9975 November, [place] [address] 07034- 7279 November, Type 2 diabetes mellitus with unspecified complications E11.8 and Dysuria R30.0 [place] [address] 21646- 3070 Oct, Left shoulder pain M25.512 [place] [address] 97630- 8751 Sep, Left shoulder pain M25.512 [place] [address] 04691- 5878 Sep, Pre-op testing Z01.818 [place] [address] 57966- 3432 Sep, Pre-op testing Z01.818 [place] [id number] [place] [address] 13348- 5239 Sep, Pre-op testing Z01.818 [place] [id number] [place] [address] 27479- 5783 Sep, Pre-op testing Z01.818 and Mouth pain K13.79 [place] [address] 43066- 6282 Sep, Left shoulder pain M25.512 [place] [id number] [place] [address] 86999- 8645 Aug, Other eczema L30.8 [place] [address] 26021- 1307 Aug, PVD (peripheral vascular disease) I73.9 ; Type 2 diabetes mellitus with unspecified complications E11.8 ; Acute cystitis with hematuria N30.01 ; Other eczema L30.8 ; Dysuria R30.0 and Left shoulder pain M25.[address] [facility] [id number] [place] [address] 84178 -5134 Jul, Otalgia of right ear H92.01 and Blood in ear canal, right H92.21 [place] [id number] [place] [address] 88363- 3985 Jul, Arthralgia, unspecified joint M25.50 ; PVD (peripheral vascular disease) I73.9 and Neuropathy G62.9 [place] [id number] [place] [address] 44850- 4062 Jul, [place] [address] 27774- 7376 Jun, Medicare annual wellness visit, initial Z00.00 ; Cervicalgia M54.2 ; Radiculopathy of cervical region M54.12 ; Encounter for immunization Z23 ; Type 2 diabetes mellitus with unspecified complications E11.8 and Essential hypertension I10 [place] [address] [place] [address] 47533- 0010 Jun, [place] [id number] [place] [address] 98272- 6072 14 May, 2016 Hypothyroidism (acquired) E03.9 [place] [id number] [place] [address] 72853- 9558 May, Dysuria R30.0 ; Essential hypertension I10 ; Hypothyroidism (acquired) E03.9 and PVD (peripheral vascular disease) I73.[address] [facility] [id number] [place] [address] 85631 -8003 03 May, 2016 Burning with urination R30.0 and Acute cystitis with hematuria N30.01 [place] [id number] [address]- 2549 May, Dental examination Z01.20 [facility] [id number] [place] [address] 08431- 4239 May, Hypothyroidism (acquired) E03.9 [facility] [address] [place] [address] 14119 2541 Feb, [facility] [id number] [place] [address] 36191 2544 Feb, 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 ; PVD ( peripheral vascular disease) I73.9 ; Type 2 diabetes mellitus with unspecified complications E11.8 and Essential hypertension I10 [place] [id number] [place] [address] 84321- 4081 Jan, [place] [id number] [place] [address] 84424- 2166 Jan, Hypothyroidism (acquired) E03.9 [facility] [id number] [place] [address] 58726 2547 Jan, [facility] [id number] [place] [address] 10437 2544 Jan, [facility] [address] [place] [address] 84276- 254 Jan, Type 2 diabetes mellitus with unspecified complications E11.8 ; 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 and Essential ( primary) hypertension I10 [facility] [address] [place] [address] 47359 2542 Jan, Type 2 diabetes mellitus with unspecified complications E11.8 ; 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 ; Essential hypertension I10 and PVD (peripheral vascular disease) I73.9 [facility] [address] [address]- 0822 Jan, [facility] [id number] [place] [address] 86126- 7444 Jan, [facility] [id number] [place] [address] 42394- 6538 Jan, [place] [id number] [place] [address] 14079- 9743 Jan, Weakness R53.1 ; Fatigue, unspecified type R53.83 ; PVD ( peripheral vascular disease) I73.9 ; Acute osteomyelitis of other site M86.18 ; Type 2 diabetes mellitus with diabetic neuropathy, unspecified E11.40 and nursing home 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.4 [facility] [id number] [place] [address] 00642- 1796 Dec, [place] [id number] [place] [address] 02644- 0309 Dec, Type 2 diabetes mellitus with unspecified complications E11.8 [place] [id number] [place] [address] 26392- 5926 Dec, [place] [id number] [place] [address] 98046- 5314 Dec, Pressure ulcer, unspecified pressure ulcer stage L89.90 and Type 2 diabetes mellitus with unspecified complications E11.8 [facility] [id number] [place] [address] 86492 -8673 Dec, Toe infection L08.9 [place] [id number] [place] [address] 77338- 4078 November, Dental caries K02.9 [place] [id number] [place] [address] 70494- 5566 November, [place] [id number] [place] [address] 61846- 5655 November, Dental examination Z01.20 [place] [id number] [place] [address] 97508- 0607 Sep, Lipoma of torso D17.1 and Thoracic neuritis M54.14 [place] [id number] [place] [address] 94506- 8820 Sep, [facility] [id number] [place] [address] 18798- 5115 Aug, [facility] [id number] [place] [address] 13882 -3918 Jul, Dysuria R30.0 and UTI (urinary tract infection) N39.0 [facility] [id number] [place] [address] 19882- 4695 Jun, Left shoulder pain M25.512 [place] [address] 50710- 0428 May, Shoulder pain, left M25.512 [facility] [id number] [place] [address] 73799- 0587 May, [facility] [address] 38723- 5941 May, [facility] [id number] [place] [address] 47788- 9585 May, Left shoulder pain M25.512 [facility] [id number] [place] [address] 97700- 1612 May, [facility] [id number] [place] [address] 52685- 5563 Apr, Encounter for immunization Z23 [facility] [id number] [place] [address] 74238- 8522 Apr, Urinary tract infection, site not specified N39.0 ; Hypotension, unspecified I95.9 ; Type 2 diabetes mellitus with unspecified complications E11.8 and Generalized edema R60.1 [facility] [id number] [place] [address] 12202- 6487 Apr, [facility] [id number] [place] [address] 48861- 3768 Mar, Diabetes with other specified manifestations, type II or unspecified type, not stated as uncontrolled 250.80 [facility] [address] [address]- 0576 Feb, Gout 274.9 and Diabetes 250.00 [facility] [id number] [place] [address] 21224- 6813 Jan, [facility] [id number] [place] [address] 53375- 7540 November, CAD (coronary artery disease) 414.00 and CHF (congestive heart failure) 428.0 [facility] [id number] [place] [address] 21518- 3818 Oct, [facility] [id number] [place] [address] 81918- 7921 Oct, [facility] [id number] [place] [address] 15438- 1571 Oct, [facility] [id number] [place] [address] 73320- 7725 Sep, [facility] [id number] [place] [address] 25020- 6999 Sep, [facility] [id number] [place] [address] 17921- 2392 Sep, [facility] [address] [address]- 0934 Sep, [facility] [id number] [address]- 5612 Aug, [facility] [address] [address]- 6660 Aug, [facility] [id number] [place] [address] 00491- 1868 Aug, [facility] [address] [address]- 2196 Aug, [facility] [place] [facility] [address] [id number] [place] [address] Aug, [facility] [place] [facility] [address] [id number] [place] [address] Aug, [facility] [place] [facility] [address] [id number] [place] [address] Aug, [facility] [place] [facility] [address] [id number] [place] [address] Aug, [facility] [place] [facility] [address] [id number] [place] [address] Jul, [facility] [place] [facility] [address] [id number] [place] [address] Jul, [facility] [place] [facility] [address] [id number] [place] [address] Jul, [facility] [place] [facility] [address] [id number] [place] [address] Jul, [facility] [place] [facility] [address] [id number] [place] [address] Jul, [facility] [place] [facility] [address] [id number] [place] [address] Jul, [facility] [place] [facility] [address] [id number] [place] [address] Jul, [facility] [place] [facility] [address] [id number] [address] Jul, [facility] [place] [facility] [address] [id number] [place] [address] Jul, [facility] [place] [facility] [address] [id number] [place] [address] Jul, [facility] [place] [facility] [address] [id number] [place] [address]- [address] Jun, [facility] [place] [facility] [address] [id number] [place] [address]- [address] Jun, [facility] [place] [facility] [address] [id number] [place] [address]- [address] Jun, [facility] [place] [facility] [address] [id number] [id number] [address] Jun, [facility] [facility] [address] [id number] [place] [address] Jun, [facility] [place] [facility] [address] [id number] [place] [address] 4778 Jun, [facility] [place] [facility] [address] [id number] [place] [address] Jun, [facility] [place] [facility] [address] [id number] [place] [address] 5[address] Jun, [facility] [place] [facility] [address] [id number] [place] [address]- 4065 Jun, [facility] [place] [facility] [address] [id number] [place] [address]- 8256 Jun, [facility] [place] [facility] [address] [id number] [place] [address]- 5380 May, [facility] [place] [facility] [address] [id number] [place] [address] 2764 May, [facility] [place] [address] [id number] [place] [address]- 7314 18 Mar, 2014 [facility] [place] [facility] [address] [id number] [place] [address]- 7[address] 18 Mar, 2014 [facility] [place] [facility] [address] [id number] [place] [address]- 8900 10 Mar, 2014 [facility] [place] [facility] [address] [id number] [place] [address]- 6983 Mar, [facility] [place] [facility] [address] [id number] [place] [address]- 2063 Feb, [facility] [place] [facility] [address] [id number] [place] [address] 7793 Feb, [facility] [place] [facility] [address] [id number] [place] [address]- 9776 Feb, [facility] [place] [facility] [address] [id number] [place] [address]- 6919 Jan, [facility] [place] [facility] [address] [id number] [place] [address]- 6902 Jan, [facility] [place] [address] [id number] [place] [address]- 8229 Jan, [facility] [place] [facility] [address] [id number] [place] [address]- 5160 Jan, [facility] [place] [facility] [address] [id number] [place] [address]- 3892 Jan, [facility] [address] [id number] [place] [address]- 5227 Jan, [facility] [address] [id number] [place] [address]- 8770 Jan, [facility] [address] [id number] [place] [address]- 5549 Jan, [facility] [address] [id number] [place] [address]- 3596 Jan, [facility] [address] [id number] [place] [address]- 0794 Jan, [facility] [address] [id number] [place] [address]- 6121 Dec, [facility] [place] [facility] [address] [id number] [place] [address]- 9206 Dec, [facility] [address] [id number] [place] [address]- 7865 November, [facility] [address] [id number] [place] [address]- 6422 November, [facility] [facility] [address] [id number] [place] [address]- 8613 November, [facility] [facility] [address] [id number] [place] [address]- 2931 November, [facility] [facility] [address] [id number] [place] [address] November, [facility] [address] [id number] [place] [address]- 5025 November, [facility] [address] [id number] [place] [address]- 0034 November, [facility] [address] [id number] [place] [address]- 8959 Oct, [facility] [address] [id number] [place] [address]- 2943 Oct, [facility] [address] [id number] [place] [address]- 7122 Sep, [facility] [address] [id number] [place] [address]- 9682 Sep, [facility] [address] [id number] [place] [address]- 2290 Sep, [facility] [address] [id number] [place] [address]- 8562 Sep, [facility] [address] [id number] [place] [address]- 2383 Sep, [facility] [address] [id number] [place] [address]- 6165 Sep, [facility] [address] [id number] [place] [address]- 4756 Sep, [facility] [address] [id number] [place] [address] Sep, [facility] [address] [id number] [place] [address]- 5093 Sep, [facility] [address] [id number] [place] [address]- 6638 Sep, [facility] [address] [id number] [place] [address]- 6547 Aug, [facility] [address] [id number] [place] [address]- 9889 Aug, [facility] [address] [id number] [place] [address]- 9459 Jul, [facility] [address] [id number] [place] [address]- 6520 Jul, [facility] [address] [id number] [place] [address]- 2204 Jul, [facility] [address] [id number] [place] [address]- 6860 Jul, [facility] [address] [id number] [place] [address]- 7981 Jul, [facility] [address] [id number] [place] [address]- 6142 Jul, [facility] [address] [id number] [place] [address]- 3320 Jun, [facility] [address] [id number] [place] [address]- 5358 Jun, [facility] [address] [id number] [place] [address]- 2319 Jun, [facility] [address] [id number] [place] [address]- 4374 Jun, [facility] [address] [id number] [place] [address]- 2861 May, [facility] [address] [id number] [place] [address]- 9095 May, [facility] [address] [id number] [place] [address]- 6988 May, [facility] [address] [id number] [place] [address]- 4645 May, [facility] [address] [id number] [place] [address]- 5790 May, [facility] [address] [id number] [place] [address]- 5667 Apr, [facility] [address] [id number] [place] [address]- 4161 Apr, [facility] [address] [id number] [place] [address]- 4637 Apr, [facility] [address] [id number] [place] [address]- 8357 Apr, [facility] [address] [id number] [place] [address]- 6034 Apr, [facility] [address] [id number] [place] [address]- 2549 Apr, [facility] [address] [id number] [place] [address]- 5088 Apr, [facility] [address] [id number] [place] [address]- 3164 Apr, [facility] [address] [id number] [place] [address]- 0181 Apr, [facility] [address] [id number] [place] [address]- 3492 Apr, [facility] [address] [id number] [place] [address]- 9833 Apr, [facility] [address] [id number] [place] [address]- 1868 Apr, [facility] [address] [id number] [place] [address]- 3946 Mar, [facility] [address] [id number] [place] [address]- 1811 Mar, [facility] [address] [id number] [place] [address]- 3276 Feb, [facility] [address] [id number] [place] [address]- 3565 Jan, [facility] [address] [id number] [place] [address]- 1962 Jan, [facility] [address] [id number] [place] [address]- 8572 Jan, [facility] [address] [id number] [place] [address]- 6288 Jan, [facility] [address] [id number] [place] [address]- 9259 Dec, [facility] [address] [id number] [place] [address]- 7594 Dec, [facility] [address] [id number] [place] [address]- 0840 Dec, [facility] [address] [id number] [place] [address]- 3567 Dec, [facility] [address] [id number] [place] [address]- 6289 Dec, [facility] [address] [id number] [place] [address]- 3522 Dec, [facility] [address] [id number] [place] [address]- 6303 Dec, [facility] [address] [id number] [place] [address]- 9354 November, [facility] [address] [id number] [place] [address]- 9507 November, [facility] [address] [id number] [place] [address]- 8603 November, [facility] [address] [id number] [place] [address]- 5713 Oct, [facility] [address] [id number] [place] [address] 2546 Oct, [facility] [address] [id number] [place] [address]- 2009 Oct, [facility] [address] [id number] [place] [address]- 0201 Oct, [facility] [address] [id number] [place] [address]- 4428 Oct, [facility] [address] [id number] [place] [address]- 2868 Sep, [facility] [address] [id number] [place] [address]- 1384 Sep, [facility] [address] [id number] [place] [address]- 4585 Sep, [facility] [address] [id number] [place] [address]- 4921 Sep, [facility] [address] [id number] [place] [address]- 2414 Aug, [facility] [address] [id number] [place] [address]- 2546 Aug, [facility] [address] [id number] [place] [address]- 2546 Aug, [facility] [address] [id number] [place] [address]- 6246 Aug, [facility] [address] [id number] [place] [address]- 2546 Jul, [facility] [address] [id number] [place] [address]- 5788 Jul, [facility] [address] [id number] [place] [address]- 8969 Jun, [facility] [address] [id number] [place] [address]- 2351 Jun, [facility] [address] [id number] [place] [address]- 8963 Jun, [facility] [address] [id number] [place] [address]- 4862 Jun, [facility] [address] [id number] [place] [address]- 8188 May, [facility] [address] [id number] [place] [address]- 4749 May, [facility] [address] [facility] [id number] [place] [address]- 5599 May, [facility] [address] [id number] [place] [address]- 0016 May, [facility] [address] [id number] [place] [address]- 3026 Apr, [facility] [address] [facility] [id number] [address]- 1682 Apr, [facility] [address] [id number], [place] [address]- 1119 Apr, [facility] [address] [id number], [place] [address]- 6392 31 Apr, 2012 [facility] [address] [id number] [place] [address]- 9379 30 Apr, 2012 [facility] [address] [id number], [place] [address]- 8832 30 Apr, 2012 [facility] [address] [facility] [id number] [address]- 0668 Apr, [facility] [address] [id number] [place] [address]- 5242 Apr, [facility] [address] [id number] [place] [address]- 2346 Apr, [facility] [address] [id number] [place] [address]- 2446 Apr, [facility] [address] [id number] [place] [address]- 6344 Feb, [facility] [address] [id number] [place] [address]- 5413 Feb, [facility] [address] [id number] [place] [address]- 6896 Jan, [facility] [address] [id number] [place] [address]- 9941 Jan, [facility] [address] [id number] [place] [address]- 4884 Jan, [facility] [address] [id number] [place] [address]- 7943 Jan, [facility] [address] [id number] [place] [address]- 0386 Jan, [facility] [address] [id number] [place] [address]- 4595 Jan, [facility] [address] [id number] [place] [address]- 4484 Dec, [facility] [address] [id number] [place] [address]- 2124 November, [facility] [address] [id number] [place] [address]- 7648 November, [facility] [address] [id number] [place] [address]- 2388 November, [facility] [address] [id number] [place] [address]- 2410 Sep, [facility] [address] [id number] [place] [address]- 6550 Sep, [facility] [address] [id number] [place] [address]- 6405 Sep, [facility] [address] [id number] [place] [address]- 4433 Sep, [facility] [address] [id number] [place] [address]- 1565 Sep, [facility] [place] [address] [id number] [place] [address]- 2266 Sep, [facility] [place] [facility] [address] [id number] [place] [address]- 4939 Aug, [facility] [place] [address] [id number] [place] [address]- 3105 Aug, [facility] [place] [facility] [address] [id number] [place] [address]- 0307 Aug, [facility] [place] [facility] [address] [id number] [place] [address]- 8953 Jul, [facility] [place] [facility] [address] [id number] [place] [address]- 8072 Jul, [facility] [facility] [address] [id number] [place] [address]- 4065 Jul, [facility] [place] [facility] [address] [id number] [place] [address]- 0724 Jul, [facility] [place] [facility] [address] [id number] [place] [address]- 2734 Jun, [facility] [place] [facility] [address] [id number] [place] [address]- 9216 Jun, [facility] [place] [facility] [address] [id number] [place] [address]- 8396 Jun, [facility] [place] [facility] [address] [id number], [place] [address]- 8110 06 Jun, 2011 [facility] [place] [facility] [address] [id number] [place] [address]- 1936 05 Jun, 2011 [facility] [place] [facility] [address] [id number] [place] [address]- 1696 Jun, [facility] [place] [facility] [address] [id number] [place] [address]- 3556 May, [facility] [place] [facility] [address] [id number] [place] [address]- 9612 May, [facility] [place] [facility] [address] [id number] [place] [address]- 7241 May, [facility] [place] [facility] [address] [id number] [place] [address]- 6990 Apr, [facility] [address] [id number] [place] [address]- 7200 Jan, [facility] [place] [facility] [address] [id number] [place] [address]- 9044 Jun, [facility] [place] [facility] [address] [id number] [place] [address]- 8076 Jun, [facility] [place] [facility] [address] [id number] [place] [address] 2544 15 Jun, 2010 [facility] [place] [facility] [address] [id number] [place] [address] 2546 15 Jun, 2010 [facility] [place] [facility] [address] [id number] [place] [address] 2546 15 Jun, 2010 [facility] [place] [facility] [address] [id number] [place] [address] 2546 13 Jun, 2010 [facility] [place] [facility] [address] [id number] [place] [address] 2546 13 Jun, 2010 [facility] [place] [facility] [address] [id number] [place] [address]- 1711 Apr, [facility] [place] [facility] [address] [id number] [place] [address]- 5557 17 Feb, 2010 [facility] [address] [id number] [place] [address]- 8716 15 Aug, 2009 [facility] [place] [facility] [address] [id number] [place] [address] 2546 Jul, [facility] [address] [id number] [place] [address] 2546 Jul, [facility] [address] [id number] [place] [address] 2542 29 Jun, 2009 [facility] [address] [id number] [place] [address]- 7226 Jun, [facility] [address] [facility] [id number] [place] [address]- 7475 Jun, [facility] [address] [facility] [id number] [place] [address]- 6628 Jun, [facility] [address] [id number] [place] [address]- 5826 16 Jun, 2009 [facility] [address] [facility] [id number] [place] [address]- 9546 Jun, [facility] [address] [facility] [id number] [place] [address]- 7939 Jun, [facility] [address] [id number] [place] [address]- 9710 30 May, 2009 [facility] [address] [id number] [place] [address] 2540 27 May, 2009 [facility] [place] [facility] [address] [id number] [place] [address] 2546 May[facility] [place] [facility] [address] [facility] [id number] [place] [address]- 2546 May, [facility] [place] [facility] [address] [id number] [place] [address] 2549 May, [facility] [address] [facility] [id number] [address]- 2546 May, [facility] [address] [id number], [place] [address]- 2546 May, [facility] [address] [facility] [id number] [address]- 2546 Apr, [facility] [address] [id number], [place] [address]- 2546 Apr, [facility] [address] [facility] [id number], [place] [address] 2542 Jan, [facility] [address] [id number], [place] [address]- 2546 Oct, IMMUNIZATIONS No Known Immunizations SOCIAL HISTORY Never Assessed REASON FOR VISIT Controlled Med Refill 04/29/18 PLAN OF CARE VITAL SIGNS MEDICATIONS Medication [...]
--- OUTSIDE RECORDS SUMMARY | 2018-11-09 12:49 | XMS REPORT ---
Author Author PRABHA HILL [facility] Address [address] [place] [address] Care Team Providers Care Band Head Saw Operator Name Role Phone PRABHA HILL Unavailable PROBLEMS Type Condition ICD9-CM Code MQZ93-CX Code Onset Dates Condition Status SNOMED Code Problem Hypoglycemia E16.2 Active 611762302 Problem Hallucinations R44.3 Active 9570506 Problem Unsteady gait R26.81 Active 73097930 Problem 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 Active [id number] Problem Dysuria R30.0 Active 32231981 Problem Anxiety F41.9 Active 38349367 Problem Dementia in other diseases classified elsewhere without behavioral disturbance F02.80 Active 076273549 Problem Other frontotemporal dementia G31.09 Active 551564266 Problem Parkinsons disease G20 Active 24864241 Problem Episodic cluster headache, not intractable G44.019 Active 528163043 Problem Neurogenic orthostatic hypotension G90.3 Active 584324953 Problem Mixed stress and urge urinary incontinence N39.46 Active 512733722 Problem 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 Active 002810378 Problem Essential hypertension I10 Active 27672726 Problem Type 2 diabetes mellitus with unspecified complications E11.8 Active 22703688 Problem PVD (peripheral vascular disease) I73.9 Active 345626102 Problem Dysthymia F34.1 Active 22225863 Problem Polydipsia R63.1 Active 66583308 Problem Coronary artery disease involving [place] coronary artery of [place] heart without angina pectoris I25.10 Active 2228041472006 Problem Hypothyroidism (acquired) E03.9 Active 795579918 Problem Hyperlipemia, mixed E78.2 Active 053402249 Problem Dementia with Lewy bodies G31.83 Active 097904847 Problem Neuropathy G62.9 Active 109796671 Problem Hypernatremia E87.0 Active 11323945 ALLERGIES No Information ENCOUNTERS Encounter Location Date Diagnosis [facility] [place] [id number] [place] [address] 82090- 4904 Apr, [facility] [address] 14945 -6779 Apr, Dysuria R30.0 and Cystitis N30.90 [facility] [place] [address] 95691- 3353 28 Mar, 2018 Left shoulder pain M25.512 [facility] [place] [address] 34787- 1570 Mar, [place] [address] 60285- 6109 Mar, Hyperlipemia, mixed E78.2 ; Essential hypertension I10 and Coronary artery disease involving [place] coronary artery of [place] heart without angina pectoris I25.10 [place] [address] 19803- 9544 Mar, Type 2 diabetes mellitus with unspecified complications E11.8 [place] [address] 98066- 5114 17 Mar, 2018 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 [place] [address] 03812- 3822 Mar, [facility] [place] [id number] [place] [address] 30119- 9014 Mar, [place] [address] 57287- 2509 Mar, [place] [id number] [place] [address] 06490- 1356 Mar, [place] [address] 60747- 0259 Mar, Cellulitis of left lower extremity L03.116 and Petechial rash R23.3 [place] [address] 96919- 5482 Feb, Left shoulder pain M25.512 [facility] [place] [id number] [place] [address] 39499- 2266 Feb, Left shoulder pain M25.512 [facility] [place] [id number] [place] [address] 18181- 0902 Feb, 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 [facility] [place] [address] 39930- 7084 Jan, Left shoulder pain M25.512 [facility] [place] [address] 70465- 4919 Dec, Parkinsons disease G20 [facility] [place] [address] 42911- 5349 Dec, Left shoulder pain M25.512 [facility] [place] [id number] [place] [address] 71933- 1304 Dec, Type 2 diabetes mellitus with unspecified complications E11.8 ; Anxiety F41.9 ; Therapeutic drug monitoring Z51.81 and Analgesic use Z79.899 [facility] [place] [address] 02380- 0375 November, [facility] [place] [id number] [place] [address] 50457- 7592 November, [facility] [place] [id number] [place] [address] 14955- 7884 November, Left shoulder pain M25.512 [facility] [place] [id number] [place] [address] 19246- 3667 Oct, [facility] [id number] [place] [address] 82439 -5647 Oct, [facility] [place] [id number] [place] [address] 58171- 1840 Oct, Parkinsons disease G20 [facility] [id number] [place] [address] 85783 -3495 Oct, Acute cystitis without hematuria N30.00 and Viral upper respiratory tract infection J06.9 [place] [id number] [place] [address] 18761- 7043 Oct, [place] [id number] [place] [address] 21481- 2343 Oct, Type 2 diabetes mellitus with unspecified complications E11.8 [place] [id number] [place] [address] 04219- 1993 Oct, Left shoulder pain M25.512 [place] [id number] [place] [address] 11543- 8689 Oct, Type 2 diabetes mellitus with unspecified complications E11.8 ; Dysuria R30.0 and Neurogenic orthostatic hypotension G90.3 [place] [id number] [place] [address] 79282- 6053 Sep, Left shoulder pain M25.512 [place] [id number] [place] [address] 46148- 8699 Sep, Medicare annual wellness visit, initial Z00.00 ; Parkinsons disease G20 ; Type 2 diabetes mellitus with unspecified complications E11.8 ; Essential hypertension I10 ; Coronary artery disease involving [place] coronary artery of [place] heart without angina pectoris I25.10 ; Hypothyroidism (acquired ) E03.9 ; PVD (peripheral vascular disease) I73.9 ; Dysthymia F34.1 ; Hyperlipemia, mixed E78.2 ; Neuropathy G62.9 ; Encounter for immunization Z23 ; Encounter for other screening for malignant neoplasm of breast Z12.39 and Mixed stress and urge urinary incontinence N39.46 [place] [id number] [place] [address] 48366- 0077 Aug, Parkinsons disease G20 [place] [id number] [place] [address] 11130- 6267 Aug, Type 2 diabetes mellitus with unspecified complications E11.8 ; Left shoulder pain M25.512 and Hypotensive episode I95.9 [place] [id number] [place] [address] 21166- 8400 09 Aug, 2017 Coronary artery disease involving [place] coronary artery of [place] heart without angina pectoris I25.10 [place] [id number] [place] [address] 08317- 4958 07 Aug, 2017 Type 2 diabetes mellitus with unspecified complications E11.8 [place] [address] 98260- 6803 Jul, Callus of foot L84 [place] [address] 59506- 4192 Jul, [place] [address] 70228- 4723 Jul, Callus of foot L84 ; Episodic cluster headache, not intractable G44.019 ; Type 2 diabetes mellitus with unspecified complications E11.8 and Parkinsons disease G20 [place] [id number] [place] [address] 56296- 2075 Jul, [place] [id number] [place] [address] 91670- 7548 Jul, [place] [id number] [place] [address] 12331- 7102 Jun, Type 2 diabetes mellitus with unspecified complications E11.8 ; Unsteady gait R26.81 ; Forgetfulness R68.89 and Hallucinations R44.3 [place] [id number] [place] [address] 55563- 6126 Jun, [place] [id number] [place] [address] 55942- 9529 Jun, Left shoulder pain M25.512 [place] [id number] [place] [address] 77019- 0742 May, Hypernatremia E87.0 and Polydipsia R63.[address] 96957- 5044 May, Hypernatremia E87.0 and Polydipsia R63.1 [place] [id number] [place] [address] 32446- 8884 May, Hypoglycemia E16.2 ; Dysuria R30.0 ; Unsteadiness on feet R26.81 ; Forgetfulness R68.89 ; Type 2 diabetes mellitus with unspecified complications E11.8 and Yeast infection involving the vagina and surrounding area B37.3 [place] [id number] [place] [address] 16932- 6789 May, Acute cystitis without hematuria N30.00 [facility] [address] 01173 -6130 Apr, Dysuria R30.0 and Acute cystitis without hematuria N30.00 [place] [id number] [place] [address] 04886- 9651 Apr, Hypernatremia E87.0 and Polydipsia R63.1 [place] [id number] [place] [address] 53059- 0888 Apr, Vertigo R42 and Type 2 diabetes mellitus with unspecified complications E11.8 [place] [id number] [place] [address] 23652- 6780 Mar, [place] [id number] [place] [address] 13432- 0065 19 Mar, 2017 Left shoulder pain M25.512 [place] [id number] [place] [address] 45166- 4045 13 Mar, 2017 Vertigo R42 [place] [id number] [place] [address] 52586- 7430 12 Mar, 2017 Polydipsia R63.1 [place] [id number] [place] [address] 82950- 0449 Mar, Polydipsia R63.1 [place] [address] 27015- 3162 11 Mar, 2017 Vertigo R42 [place] [address] 20461- 0673 07 Mar, 2017 Type 2 diabetes mellitus with unspecified complications E11.8 ; Vertigo R42 ; Polydipsia R63.1 ; Polyuria R35.8 ; Hypothyroidism ( acquired) E03.9 ; Abnormal urinalysis R82.90 and Dysthymia F34.1 [place] [address] 76231- 1096 05 Mar, 2017 Coronary artery disease of [place] artery with stable angina pectoris, unspecified whether [place] or transplanted heart I25.118 ; Systolic CHF, chronic I50.22 ; Hyperlipemia, mixed E78.2 and Essential hypertension I10 [facility] [address] [id number] Feb, Dental caries K02.9 [place] [address] 87005- 4486 Feb, Type 2 diabetes mellitus with diabetic neuropathy, unspecified E11.40 [place] [address] 15189- 3785 23 Dec, 2016 Left shoulder pain M25.512 [place] [address] 47790- 1150 16 Dec, 2016 [place] [id number] [place] [address] 42733- 4555 Dec, Type 2 diabetes mellitus with unspecified complications E11.8 [facility] [address] [id number] Dec, Dental examination Z01.20 [place] [address] 30118- 2866 08 Dec, 2016 Type 2 diabetes mellitus with diabetic neuropathy, unspecified E11.40 [facility] [place] [id number] [place] [address] 37032- 1363 07 Dec, 2016 [place] [id number] [place] [address] 51701- 2429 Dec, Type 2 diabetes mellitus with diabetic neuropathy, unspecified E11.40 [place] [address] 08397- 6472 November, Left shoulder pain M25.512 [place] [address] 61565- 4456 November, [place] [address] 10386- 3876 November, Type 2 diabetes mellitus with unspecified complications E11.8 and Dysuria R30.0 [place] [address] 47299- 7070 Oct, Left shoulder pain M25.512 [place] [address] 56334- 0732 Sep, Left shoulder pain M25.512 [place] [address] 85921- 8708 Sep, Pre-op testing Z01.818 [place] [address] 05260- 2504 Sep, Pre-op testing Z01.818 [place] [id number] [place] [address] 39324- 7357 Sep, Pre-op testing Z01.818 [place] [id number] [place] [address] 93624- 4542 Sep, Pre-op testing Z01.818 and Mouth pain K13.79 [place] [address] 99446- 9048 Sep, Left shoulder pain M25.512 [place] [id number] [place] [address] 45672- 0110 Aug, Other eczema L30.8 [place] [address] 55309- 1002 Aug, PVD (peripheral vascular disease) I73.9 ; Type 2 diabetes mellitus with unspecified complications E11.8 ; Acute cystitis with hematuria N30.01 ; Other eczema L30.8 ; Dysuria R30.0 and Left shoulder pain M25.512 [facility] [id number] [place] [address] 44971 -8452 Jul, Otalgia of right ear H92.01 and Blood in ear canal, right H92.21 [place] [id number] [place] [address] 35904- 0449 Jul, Arthralgia, unspecified joint M25.50 ; PVD (peripheral vascular disease) I73.9 and Neuropathy G62.9 [place] [id number] [place] [address] 17970- 5564 Jul, [place] [address] 29763- 1644 Jun, Medicare annual wellness visit, initial Z00.00 ; Cervicalgia M54.2 ; Radiculopathy of cervical region M54.12 ; Encounter for immunization Z23 ; Type 2 diabetes mellitus with unspecified complications E11.8 and Essential hypertension I10 [place] [address] [place] [address] 40318- 4130 Jun, [place] [id number] [place] [address] 91720- 2774 14 May, 2016 Hypothyroidism (acquired) E03.9 [place] [id number] [place] [address] 51494- 1823 May, Dysuria R30.0 ; Essential hypertension I10 ; Hypothyroidism (acquired) E03.9 and PVD (peripheral vascular disease) I73.9 [facility] [id number] [place] [address] 70240 -9796 03 May, 2016 Burning with urination R30.0 and Acute cystitis with hematuria N30.01 [place] [id number] [address]- 2548 May, Dental examination Z01.20 [facility] [place] [id number] [place] [address] 48063- 6871 May, Hypothyroidism (acquired) E03.9 [facility] [place] [id number] [place] [address] 22796 2541 Feb, [facility] [place] [id number] [place] [address] 84463 2541 Feb, 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 ; PVD ( peripheral vascular disease) I73.9 ; Type 2 diabetes mellitus with unspecified complications E11.8 and Essential hypertension I10 [place] [id number] [place] [address] 02521- 9966 Jan, [place] [id number] [place] [address] 91685- 4632 Jan, Hypothyroidism (acquired) E03.9 [facility] [place] [id number] [place] [address] 96733 2540 Jan, [facility] [place] [id number] [place] [address] 71432 254 Jan, [facility] [place] [address] [place] [address] 97759- 2547 Jan, Type 2 diabetes mellitus with unspecified complications E11.8 ; 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 and Essential ( primary) hypertension I10 [facility] [place] [address] [place] [address] 99899 254 Jan, Type 2 diabetes mellitus with unspecified complications E11.8 ; 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 ; Essential hypertension I10 and PVD (peripheral vascular disease) I73.9 [facility] [place] [address] [address]- 9116 Jan, [facility] [place] [id number] [place] [address] 51982- 1488 Jan, [facility] [place] [id number] [place] [address] 69492- 1650 Jan, [place] [id number] [place] [address] 87179- 5031 Jan, Weakness R53.1 ; Fatigue, unspecified type R53.83 ; PVD ( peripheral vascular disease) I73.9 ; Acute osteomyelitis of other site M86.18 ; Type 2 diabetes mellitus with diabetic neuropathy, unspecified E11.40 and senior care 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.4 [facility] [place] [id number] [place] [address] 50710- 9206 Dec, [place] [id number] [place] [address] 41667- 5231 Dec, Type 2 diabetes mellitus with unspecified complications E11.8 [place] [id number] [place] [address] 18009- 2679 Dec, [place] [id number] [place] [address] 65424- 8219 Dec, Pressure ulcer, unspecified pressure ulcer stage L89.90 and Type 2 diabetes mellitus with unspecified complications E11.8 [facility] [id number] [place] [address] 44598 -9172 Dec, Toe infection L08.9 [place] [id number] [place] [address] 23250- 1770 November, Dental caries K02.9 [place] [id number] [place] [address] 41662- 9987 November, [place] [id number] [place] [address] 35212- 9918 November, Dental examination Z01.20 [place] [id number] [place] [address] 83754- 4660 Sep, Lipoma of torso D17.1 and Thoracic neuritis M54.14 [place] [address] [place] [address] 84400- 4423 Sep, [facility] [place] [id number] [place] [address] 34642- 9266 Aug, [facility] [address] [place] [address] 91854 -2680 Jul, Dysuria R30.0 and UTI (urinary tract infection) N39.0 [facility] [place] [id number] [place] [address] 51920- 8106 Jun, Left shoulder pain M25.512 [place] [address] 47650- 0729 May, Shoulder pain, left M25.512 [facility] [place] [id number] [place] [address] 39014- 2988 May, [facility] [place] [address] 11898- 6218 May, [facility] [place] [id number] [place] [address] 17607- 9344 May, Left shoulder pain M25.512 [facility] [place] [id number] [place] [address] 90005- 6339 May, [facility] [place] [id number] [place] [address] 11084- 1418 Apr, Encounter for immunization Z23 [facility] [place] [id number] [place] [address] 79976- 0800 Apr, Urinary tract infection, site not specified N39.0 ; Hypotension, unspecified I95.9 ; Type 2 diabetes mellitus with unspecified complications E11.8 and Generalized edema R60.1 [facility] [place] [id number] [place] [address] 15748- 2085 Apr, [facility] [place] [id number] [place] [address] 89959- 7000 Mar, Diabetes with other specified manifestations, type II or unspecified type, not stated as uncontrolled 250.80 [facility] [place] [address] [address]- 8138 Feb, Gout 274.9 and Diabetes 250.00 [facility] [place] [id number] [place] [address] 24323- 6532 Jan, [facility] [place] [id number] [place] [address] 20766- 8214 November, CAD (coronary artery disease) 414.00 and CHF (congestive heart failure) 428.0 [facility] [place] [id number] [place] [address] 05293- 4145 Oct, [facility] [place] [id number] [place] [address] 80130- 7881 Oct, [facility] [place] [id number] [place] [address] 50424- 1057 Oct, [facility] [place] [id number] [place] [address] 69917- 3635 Sep, [facility] [place] [id number] [place] [address] 47138- 8079 Sep, [facility] [place] [id number] [place] [address] 31609- 8206 Sep, [facility] [place] [address] [address]- 2323 Sep, [facility] [place] [id number] [address]- 1263 Aug, [facility] [place] [address] [address]- 0959 Aug, [facility] [place] [id number] [place] [address] 14865- 7765 Aug, [facility] [place] [address] [address]- 1151 Aug, [facility] [place] [facility] [address] [id number] [place] [address]- 1581 Aug, [facility] [place] [facility] [address] [id number] [place] [address]- 1816 Aug, [facility] [place] [facility] [address] [id number] [place] [address]- 4711 Aug, [facility] [place] [facility] [address] [id number] [place] [address]- 1359 Aug, [facility] [place] [facility] [address] [id number] [place] [address]- 3751 Jul, [facility] [place] [facility] [address] [id number] [place] [address]- 5186 Jul, [facility] [place] [facility] [address] [id number] [place] [address]- 4420 Jul, [facility] [place] [facility] [address] [id number] [place] [address] Jul, [facility] [place] [facility] [address] [id number] [place] [address] Jul, [facility] [place] [facility] [address] [id number] [place] [address] Jul, [facility] [place] [facility] [address] [id number] [place] [address] Jul, [facility] [place] [facility] [address] [id number], [place] [address] Jul, [facility] [place] [facility] [address] [id number] [place] [address] Jul, [facility] [place] [facility] [address] [id number] [place] [address] Jul, [facility] [place] [facility] [address] [id number] [place] [address] Jun, [facility] [place] [facility] [address] [id number] [place] [address] Jun, [facility] [place] [facility] [address] [id number] [place] [address] Jun, [facility] [place] [facility] [address] [id number] [place] Jun, [facility] [place] [facility] [address] [id number] [place] [address] Jun, [facility] [place] [facility] [address] [id number] [place] [address] Jun, [facility] [place] [facility] [address] [id number] [place] [address] Jun, [facility] [place] [facility] [address] [id number] [place] [address] 480[address] Jun, [facility] [place] [facility] [address] [id number] [place] [address] Jun, [facility] [place] [facility] [address] [id number] [place] [address] 1852 Jun, [facility] [place] [facility] [address] [id number] [place] [address] 1586 May, [facility] [place] [facility] [address] [id number] [place] [address] 3036 May, [facility] [place] [facility] [address] [id number] [place] [address] 18 Mar, 2014 [facility] [place] [facility] [address] [id number] [place] [address]- 7851 18 Mar, 2014 [facility] [place] [facility] [address] [id number] [place] [address] 1471 10 Mar, 2014 [facility] [place] [facility] [address] [id number] [place] [address] 3101 Mar, [facility] [place] [facility] [address] [id number] [place] [address] 5438 Feb, [facility] [place] [facility] [address] [id number] [place] [address] Feb, [facility] [place] [facility] [address] [id number] [place] [address] Feb, [facility] [place] [facility] [address] [id number] [place] [address] 2108 Jan, [facility] [place] [facility] [address] [id number] [place] [address]- 1013 Jan, [facility] [place] [facility] [address] [id number] [place] [address]- 4008 Jan, [facility] [place] [facility] [address] [id number] [place] [address]- 2681 Jan, [facility] [place] [facility] [address] [id number] [place] [address]- 9534 Jan, [facility] [place] [facility] [address] [id number] [place] [address] 6150 Jan, [facility] [place] [facility] [address] [id number] [place] [address] 9878 Jan, [facility] [place] [facility] [address] [id number] [place] [address] 8371 Jan, [facility] [place] [facility] [address] [id number] [place] [address]- 6358 Jan, [facility] [place] [facility] [address] [id number] [place] [address]- 8171 Jan, [facility] [place] [facility] [address] [id number] [place] [address]- 7937 Dec, [facility] [place] [facility] [address] [id number] [place] [address]- 9453 Dec, [facility] [place] [facility] [address] [id number] [place] [address]- 2076 November, [facility] [place] [facility] [address] [id number] [place] [address]- 7648 November, [facility] [place] [facility] [address] [id number] [place] [address]- 7704 November, [facility] [place] [facility] [address] [id number] [place] [address]- 7617 November, [facility] [place] [facility] [address] [id number] [place] [address] November, [facility] [place] [facility] [address] [id number] [place] [address]- 3310 November, [facility] [place] [facility] [address] [id number] [place] [address]- 6634 November, [facility] [place] [facility] [address] [id number] [place] [address]- 6164 Oct, [facility] [place] [facility] [address] [id number] [place] [address]- 2292 Oct, [facility] [place] [facility] [address] [id number] [place] [address]- 0995 Sep, [facility] [place] [facility] [address] [id number] [place] [address]- 9620 Sep, [facility] [place] [facility] [address] [id number] [place] [address]- 7790 Sep, [facility] [place] [facility] [address] [id number] [place] [address]- 3412 Sep, [facility] [place] [facility] [address] [id number] [place] [address]- 1798 Sep, [facility] [place] [facility] [address] [id number] [place] [address]- 5628 Sep, [facility] [place] [facility] [address] [id number] [place] [address]- 3781 Sep, [facility] [place] [facility] [address] [id number] [place] [address] Sep, [facility] [place] [facility] [address] [id number] [place] [address]- 1437 Sep, [facility] [address] [id number] [place] [address]- 1272 Sep, [facility] [place] [facility] [address] [id number] [place] [address]- 4776 Aug, [facility] [place] [facility] [address] [id number] [place] [address]- 4800 Aug, [facility] [place] [facility] [address] [id number] [place] [address]- 8840 Jul, [facility] [place] [facility] [address] [id number] [place] [address]- 4429 Jul, [facility] [place] [facility] [address] [id number] [place] [address]- 2920 Jul, [facility] [place] [facility] [address] [id number] [place] [address]- 4029 Jul, [facility] [place] [facility] [address] [id number] [place] [address] 1901 Jul, [facility] [place] [facility] [address] [id number] [place] [address]- 8403 Jul, [facility] [place] [facility] [address] [id number] [place] [address]- 9677 Jun, [facility] [place] [facility] [address] [id number] [place] [address]- 7918 Jun, [facility] [place] [facility] [address] [id number] [place] [address]- 8586 Jun, [facility] [place] [facility] [address] [id number] [place] [address]- 6129 Jun, [facility] [place] [facility] [address] [id number] [place] [address]- 5259 May, [facility] [place] [facility] [address] [id number] [place] [address]- 6332 May, [facility] [place] [facility] [address] [id number] [place] [address]- 5176 May, [facility] [place] [facility] [address] [id number] [place] [address]- 6317 May, [facility] [place] [facility] [address] [id number] [place] [address]- 5844 May, [facility] [place] [facility] [address] [id number] [place] [address]- 0177 Apr, [facility] [place] [facility] [address] [id number] [place] [address]- 8306 Apr, [facility] [place] [facility] [address] [id number] [place] [address]- 3438 Apr, [facility] [place] [facility] [address] [id number] [place] [address]- 8861 Apr, [facility] [place] [facility] [address] [id number] [place] [address]- 9453 Apr, [facility] [place] [facility] [address] [id number] [place] [address]- 7806 Apr, [facility] [place] [facility] [address] [id number] [place] [address]- 0492 Apr, [facility] [place] [facility] [address] [id number] [place] [address]- 9333 Apr, [facility] [place] [facility] [address] [id number] [place] [address]- 2138 Apr, [facility] [place] [facility] [address] [id number] [place] [address]- 7029 Apr, [facility] [place] [facility] [address] [id number] [place] [address]- 7986 Apr, [facility] [place] [facility] [address] [id number] [place] [address]- 2384 Apr, [facility] [place] [facility] [address] [id number] [place] [address]- 3416 Mar, [facility] [place] [facility] [address] [id number] [place] [address]- 7506 Mar, [facility] [place] [facility] [address] [id number] [place] [address]- 9226 Feb, [facility] [place] [facility] [address] [id number] [place] [address]- 6789 Jan, [facility] [place] [facility] [address] [id number] [place] [address]- 7371 Jan, [facility] [place] [facility] [address] [id number] [place] [address]- 2292 Jan, [facility] [place] [facility] [address] [id number] [place] [address]- 6105 Jan, [facility] [place] [facility] [address] [id number] [place] [address]- 7052 Dec, [facility] [place] [facility] [address] [id number] [place] [address]- 0124 Dec, [facility] [place] [facility] [address] [id number] [place] [address]- 3117 Dec, [facility] [place] [facility] [address] [id number] [place] [address]- 8685 Dec, [facility] [place] [facility] [address] [id number] [place] [address]- 5601 Dec, [facility] [place] [facility] [address] [id number] [place] [address]- 7761 Dec, [facility] [place] [facility] [address] [id number] [place] [address]- 9069 Dec, [facility] [place] [facility] [address] [id number] [place] [address]- 5576 November, [facility] [place] [facility] [address] [id number] [place] [address]- 3762 November, [facility] [place] [facility] [address] [id number] [place] [address]- 0525 November, [facility] [address] [id number] [place] [address]- 3593 Oct, [facility] [address] [id number] [place] [address] 2546 Oct, [facility] [address] [id number] [place] [address]- 1108 Oct, [facility] [address] [id number] [place] [address]- 9443 Oct, [facility] [address] [id number] [place] [address]- 1323 Oct, [facility] [address] [id number] [place] [address]- 5925 Sep, [facility] [address] [id number] [place] [address]- 9557 Sep, [facility] [address] [id number] [place] [address]- 4113 Sep, [facility] [address] [id number] [place] [address]- 0330 Sep, [facility] [address] [id number] [place] [address]- 3634 Aug, [facility] [address] [id number] [place] [address]- 2546 Aug, [facility] [address] [id number] [place] [address]- 2546 Aug, [facility] [address] [id number] [place] [address]- 2886 Aug, [facility] [address] [id number] [place] [address]- 2546 Jul, [facility] [address] [id number] [place] [address]- 4193 Jul, [facility] [place] [facility] [address] [id number] [place] [address]- 4969 Jun, [facility] [place] [facility] [address] [id number] [place] [address]- 6344 Jun, [facility] [place] [facility] [address] [id number] [place] [address]- 0441 Jun, [facility] [place] [facility] [address] [id number] [place] [address]- 8148 Jun, [facility] [place] [facility] [address] [id number] [place] [address]- 7998 May, [facility] [place] [facility] [address] [id number] [place] [address]- 3428 May, [facility] [place] [facility] [address] [facility] [id number] [place] [address]- 7998 May, [facility] [place] [facility] [address] [id number] [place] [address]- 9077 May, [facility] [place] [facility] [address] [id number] [place] [address]- 7446 Apr, [facility] [place] [facility] [address] [facility] [address] [id number], [place] [address]- 9602 Apr, [facility] [place] [facility] [address] [id number], [place] [address]- 5601 Apr, [facility] [place] [facility] [address] [id number], [place] [address]- 1195 31 Apr, 2012 [facility] [place] [facility] [address] [id number] [place] [address]- 7543 30 Apr, 2012 [facility] [place] [facility] [address] [id number], [place] [address]- 4809 30 Apr, 2012 [facility] [place] [facility] [address] [facility] [address] [id number], [place] [address]- 8581 Apr, [facility] [place] [facility] [address] [id number] [place] [address]- 8124 Apr, [facility] [place] [facility] [address] [id number] [place] [address]- 5836 Apr, [facility] [place] [facility] [address] [id number] [place] [address]- 5876 Apr, [facility] [place] [facility] [address] [id number] [place] [address]- 4678 Feb, [facility] [place] [facility] [address] [id number] [place] [address]- 6020 Feb, [facility] [place] [facility] [address] [id number] [place] [address]- 3271 Jan, [facility] [place] [facility] [address] [id number] [place] [address]- 7528 Jan, [facility] [place] [facility] [address] [id number] [place] [address]- 1527 Jan, [facility] [place] [facility] [address] [id number] [place] [address]- 8779 Jan, [facility] [place] [facility] [address] [id number] [place] [address]- 4901 Jan, [facility] [place] [facility] [address] [id number] [place] [address]- 2544 Jan, [facility] [place] [facility] [address] [id number] [place] [address]- 1497 Dec, [facility] [place] [facility] [address] [id number] [place] [address]- 1594 November, [facility] [place] [facility] [address] [id number] [place] [address]- 0685 November, [facility] [place] [facility] [address] [id number] [place] [address]- 2462 November, [facility] [place] [facility] [address] [id number] [place] [address]- 4775 Sep, [facility] [place] [facility] [address] [id number] [place] [address]- 4272 Sep, [facility] [place] [facility] [address] [id number] [place] [address]- 7925 Sep, [facility] [place] [facility] [address] [id number] [place] [address]- 7410 Sep, [facility] [place] [facility] [address] [id number] [place] [address]- 2919 Sep, [facility] [place] [facility] [address] [id number] [place] [address]- 7317 Sep, [facility] [place] [facility] [address] [id number] [place] [address]- 0085 Aug, [facility] [place] [facility] [address] [id number] [place] [address]- 1709 Aug, [facility] [place] [facility] [address] [id number] [place] [address]- 3409 Aug, [facility] [place] [facility] [address] [id number] [place] [address]- 1042 Jul, [facility] [place] [facility] [address] [id number] [place] [address]- 7612 Jul, [facility] [place] [facility] [address] [id number] [place] [address]- 6655 Jul, [facility] [place] [facility] [address] [id number] [place] [address]- 1777 Jul, [facility] [place] [facility] [address] [id number] [place] [address]- 8793 Jun, [facility] [place] [facility] [address] [id number] [place] [address]- 9326 Jun, [facility] [place] [facility] [address] [id number] [place] [address]- 5716 Jun, [facility] [place] [facility] [address] [id number], [place] [address]- 3705 06 Jun, 2011 [facility] [place] [facility] [address] [id number] [place] [address]- 0156 05 Jun, 2011 [facility] [place] [facility] [address] [id number] [place] [address]- 6426 Jun, [facility] [place] [facility] [address] [id number] [place] [address]- 6516 May, [facility] [place] [facility] [address] [id number] [place] [address]- 5837 May, [facility] [place] [facility] [address] [id number] [place] [address]- 3004 May, [facility] [place] [facility] [address] [id number] [place] [address]- 6712 Apr, [facility] [address] [id number] [place] [address]- 6931 Jan, [facility] [place] [facility] [address] [id number] [place] [address]- 9473 Jun, [facility] [place] [facility] [address] [id number] [place] [address]- 6443 Jun, [facility] [place] [facility] [address] [id number] [place] [address] 2541 15 Jun, 2010 [facility] [place] [facility] [address] [id number] [place] [address] 2546 15 Jun, 2010 [facility] [place] [facility] [address] [id number] [place] [address] 2546 15 Jun, 2010 [facility] [place] [facility] [address] [id number] [place] [address] 2546 13 Jun, 2010 [facility] [place] [facility] [address] [id number] [place] [address] 2546 13 Jun, 2010 [facility] [place] [facility] [address] [id number] [place] [address]- 2443 Apr, [facility] [place] [facility] [address] [id number] [place] [address]- 7122 17 Feb, 2010 [facility] [address] [id number] [place] [address]- 6936 15 Aug, 2009 [facility] [place] [facility] [address] [id number] [place] [address] 2546 Jul, [facility] [address] [id number] [place] [address] 2546 Jul, [facility] [address] [id number] [place] [address] 2549 29 Jun, 2009 [facility] [address] [id number] [place] [address]- 4856 Jun, [facility] [address] [facility] [id number] [place] [address]- 6344 Jun, [facility] [address] [facility] [id number] [place] [address]- 0503 Jun, [facility] [address] [id number] [place] [address]- 1377 16 Jun, 2009 [facility] [address] [facility] [id number] [place] [address]- 5913 Jun, [facility] [address] [facility] [id number] [place] [address]- 1032 Jun, [facility] [address] [id number] [place] [address]- 9437 30 May, 2009 [facility] [address] [id number] [place] [address] 2542 27 May, 2009 [facility] [place] [facility] [address] [id number] [place] [address] 2546 May, [facility] [place] [facility] [address] [facility] [id number] [place] [address]- 2546 May, [facility] [place] [facility] [address] [id number] [place] [address] 254 May, [facility] [address] [facility] [address] [id number], [place] [address] 4176 May, [facility] [place] [address] [id number], [place] [address]- 2546 May, [facility] [place] [address] [id number], [place] [address] 2546 Apr, [facility] [place] [address] [id number], [place] [address]- 2546 Apr, [facility] [place] [address] [id number], [place] [address]- 0338 Jan, [facility] [place] [address] [id number], [place] [address]- 4706 Oct, IMMUNIZATIONS No Known Immunizations SOCIAL HISTORY Never Assessed REASON FOR VISIT orders for rolator and pullups PLAN OF CARE VITAL SIGNS MEDICATIONS Unknown [...]
--- OUTSIDE RECORDS SUMMARY | 2018-11-09 12:50 | XMS REPORT ---
Author Author PRABHA HILL [facility] Address [address] [place] [address] Care Team Providers Care Airport Planner Name Role Phone PRABHA HILL Unavailable PROBLEMS Type Condition ICD9-CM Code SEP71-LE Code Onset Dates Condition Status SNOMED Code Problem Hypoglycemia E16.2 Active 032869858 Problem Hallucinations R44.3 Active 6169231 Problem Unsteady gait R26.81 Active 33387093 Problem 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 Active [id number] Problem Dysuria R30.0 Active 63303670 Problem Anxiety F41.9 Active 78705201 Problem Dementia in other diseases classified elsewhere without behavioral disturbance F02.80 Active 972710126 Problem Other frontotemporal dementia G31.09 Active 765175921 Problem Parkinsons disease G20 Active 84598254 Problem Episodic cluster headache, not intractable G44.019 Active 512436112 Problem Neurogenic orthostatic hypotension G90.3 Active 002759722 Problem Mixed stress and urge urinary incontinence N39.46 Active 769973428 Problem 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 Active 025709573 Problem Essential hypertension I10 Active 72037559 Problem Type 2 diabetes mellitus with unspecified complications E11.8 Active 42110347 Problem PVD (peripheral vascular disease) I73.9 Active 907566702 Problem Dysthymia F34.1 Active 97699437 Problem Polydipsia R63.1 Active 01356775 Problem 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.10 Active 5179814941556 Problem Hypothyroidism (acquired) E03.9 Active 930795791 Problem Hyperlipemia, mixed E78.2 Active 291337539 Problem Dementia with Lewy bodies G31.83 Active 902114938 Problem Neuropathy G62.9 Active 649547956 Problem Hypernatremia E87.0 Active 71281859 ALLERGIES No Information ENCOUNTERS Encounter Location Date Diagnosis [facility] [id number] [place] [address] 75075- 0057 Apr, [facility] [address] 14457 -3890 Apr, Dysuria R30.0 and Cystitis N30.90 [facility] [address] 57128- 5054 28 Mar, 2018 Left shoulder pain M25.512 [facility] [address] 06822- 1545 Mar, [place] [address] 71444- 6899 Mar, Hyperlipemia, mixed E78.2 ; Essential hypertension I10 and 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.10 [place] [address] 58311- 5735 Mar, Type 2 diabetes mellitus with unspecified complications E11.8 [place] [address] 48348- 6139 17 Mar, 2018 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 [place] [address] 54198- 7531 Mar, [facility] [id number] [place] [address] 80765- 9597 Mar, [place] [address] 85082- 6860 Mar, [place] [id number] [place] [address] 28408- 4073 Mar, [place] [address] 49927- 5670 Mar, Cellulitis of left lower extremity L03.116 and Petechial rash R23.3 [place] [address] 80201- 2453 Feb, Left shoulder pain M25.512 [facility] [id number] [place] [address] 44800- 1641 Feb, Left shoulder pain M25.512 [facility] [id number] [place] [address] 46489- 8582 Feb, 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 [facility] [address] 38832- 9217 Jan, Left shoulder pain M25.512 [facility] [address] 07809- 0087 Dec, Parkinsons disease G20 [facility] [address] 07598- 9291 Dec, Left shoulder pain M25.512 [facility] [id number] [place] [address] 25166- 3673 Dec, Type 2 diabetes mellitus with unspecified complications E11.8 ; Anxiety F41.9 ; Therapeutic drug monitoring Z51.81 and Analgesic use Z79.899 [facility] [address] 97850- 8437 November, [facility] [id number] [place] [address] 10110- 4927 November, [facility] [id number] [place] [address] 65278- 9183 November, Left shoulder pain M25.512 [facility] [id number] [place] [address] 34357- 3317 Oct, [facility] [id number] [place] [address] 20982 -7836 Oct, [facility] [id number] [place] [address] 80648- 0065 Oct, Parkinsons disease G20 [facility] [id number] [place] [address] 50156 -5633 Oct, Acute cystitis without hematuria N30.00 and Viral upper respiratory tract infection J06.9 [place] [id number] [place] [address] 52318- 2630 Oct, [place] [id number] [place] [address] 74672- 6328 Oct, Type 2 diabetes mellitus with unspecified complications E11.8 [place] [id number] [place] [address] 63518- 2901 Oct, Left shoulder pain M25.512 [place] [id number] [place] [address] 42739- 8598 Oct, Type 2 diabetes mellitus with unspecified complications E11.8 ; Dysuria R30.0 and Neurogenic orthostatic hypotension G90.3 [place] [id number] [place] [address] 35457- 9584 Sep, Left shoulder pain M25.512 [place] [id number] [place] [address] 32709- 9081 Sep, Medicare annual wellness visit, initial Z00.00 ; Parkinsons disease G20 ; Type 2 diabetes mellitus with unspecified complications E11.8 ; Essential hypertension I10 ; 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.10 ; Hypothyroidism (acquired ) E03.9 ; PVD (peripheral vascular disease) I73.9 ; Dysthymia F34.1 ; Hyperlipemia, mixed E78.2 ; Neuropathy G62.9 ; Encounter for immunization Z23 ; Encounter for other screening for malignant neoplasm of breast Z12.39 and Mixed stress and urge urinary incontinence N39.46 [place] [id number] [place] [address] 09394- 8858 Aug, Parkinsons disease G20 [place] [id number] [place] [address] 42953- 0531 Aug, Type 2 diabetes mellitus with unspecified complications E11.8 ; Left shoulder pain M25.512 and Hypotensive episode I95.9 [place] [id number] [place] [address] 86712- 9308 09 Aug, 2017 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.10 [place] [id number] [place] [address] 75821- 8728 07 Aug, 2017 Type 2 diabetes mellitus with unspecified complications E11.8 [place] [address] 94381- 6100 Jul, Callus of foot L84 [place] [address] 22945- 0340 Jul, [place] [address] 47300- 8395 Jul, Callus of foot L84 ; Episodic cluster headache, not intractable G44.019 ; Type 2 diabetes mellitus with unspecified complications E11.8 and Parkinsons disease G20 [place] [id number] [place] [address] 82206- 7482 Jul, [place] [id number] [place] [address] 75648- 9292 Jul, [place] [id number] [place] [address] 95625- 0981 Jun, Type 2 diabetes mellitus with unspecified complications E11.8 ; Unsteady gait R26.81 ; Forgetfulness R68.89 and Hallucinations R44.3 [place] [id number] [place] [address] 09880- 0952 Jun, [place] [id number] [place] [address] 43282- 9883 Jun, Left shoulder pain M25.512 [place] [id number] [place] [address] 78768- 1554 May, Hypernatremia E87.0 and Polydipsia R63.[address] 08023- 7723 May, Hypernatremia E87.0 and Polydipsia R63.1 [place] [id number] [place] [address] 52516- 1285 May, Hypoglycemia E16.2 ; Dysuria R30.0 ; Unsteadiness on feet R26.81 ; Forgetfulness R68.89 ; Type 2 diabetes mellitus with unspecified complications E11.8 and Yeast infection involving the vagina and surrounding area B37.3 [place] [id number] [place] [address] 29593- 8378 May, Acute cystitis without hematuria N30.00 [facility] [address] 35873 -7855 Apr, Dysuria R30.0 and Acute cystitis without hematuria N30.00 [place] [id number] [place] [address] 62771- 6071 Apr, Hypernatremia E87.0 and Polydipsia R63.1 [place] [id number] [place] [address] 41358- 3652 Apr, Vertigo R42 and Type 2 diabetes mellitus with unspecified complications E11.8 [place] [id number] [place] [address] 65993- 1476 Mar, [place] [id number] [place] [address] 64205- 7701 19 Mar, 2017 Left shoulder pain M25.512 [place] [id number] [place] [address] 09377- 2922 13 Mar, 2017 Vertigo R42 [place] [id number] [place] [address] 16177- 3517 12 Mar, 2017 Polydipsia R63.1 [place] [id number] [place] [address] 64886- 8429 Mar, Polydipsia R63.1 [place] [address] 78599- 0389 11 Mar, 2017 Vertigo R42 [place] [address] 87443- 1568 07 Mar, 2017 Type 2 diabetes mellitus with unspecified complications E11.8 ; Vertigo R42 ; Polydipsia R63.1 ; Polyuria R35.8 ; Hypothyroidism ( acquired) E03.9 ; Abnormal urinalysis R82.90 and Dysthymia F34.1 [place] [address] 43806- 4152 05 Mar, 2017 Coronary artery disease of afognak artery with stable angina pectoris, unspecified whether afognak or transplanted heart I25.118 ; Systolic CHF, chronic I50.22 ; Hyperlipemia, mixed E78.2 and Essential hypertension I10 [facility] [address] [id number] Feb, Dental caries K02.9 [place] [address] 62202- 0099 Feb, Type 2 diabetes mellitus with diabetic neuropathy, unspecified E11.40 [place] [address] 34604- 7135 23 Dec, 2016 Left shoulder pain M25.512 [place] [address] 40154- 6067 16 Dec, 2016 [place] [id number] [place] [address] 99622- 9738 Dec, Type 2 diabetes mellitus with unspecified complications E11.8 [facility] [address] [id number] Dec, Dental examination Z01.20 [place] [address] 29567- 0326 08 Dec, 2016 Type 2 diabetes mellitus with diabetic neuropathy, unspecified E11.40 [facility] [id number] [place] [address] 84070- 4646 07 Dec, 2016 [place] [id number] [place] [address] 33244- 2630 Dec, Type 2 diabetes mellitus with diabetic neuropathy, unspecified E11.40 [place] [address] 21806- 0617 November, Left shoulder pain M25.512 [place] [address] 78731- 9250 November, [place] [address] 68868- 2735 November, Type 2 diabetes mellitus with unspecified complications E11.8 and Dysuria R30.0 [place] [address] 16260- 7601 Oct, Left shoulder pain M25.512 [place] [address] 83934- 5448 Sep, Left shoulder pain M25.512 [place] [address] 65496- 0436 Sep, Pre-op testing Z01.818 [place] [address] 37115- 2722 Sep, Pre-op testing Z01.818 [place] [id number] [place] [address] 47746- 1851 Sep, Pre-op testing Z01.818 [place] [id number] [place] [address] 48081- 8045 Sep, Pre-op testing Z01.818 and Mouth pain K13.79 [place] [address] 26449- 0675 Sep, Left shoulder pain M25.512 [place] [id number] [place] [address] 71019- 6044 Aug, Other eczema L30.8 [place] [address] 88418- 4641 Aug, PVD (peripheral vascular disease) I73.9 ; Type 2 diabetes mellitus with unspecified complications E11.8 ; Acute cystitis with hematuria N30.01 ; Other eczema L30.8 ; Dysuria R30.0 and Left shoulder pain M25.512 [facility] [id number] [place] [address] 77068 -5669 Jul, Otalgia of right ear H92.01 and Blood in ear canal, right H92.21 [place] [id number] [place] [address] 80628- 2013 Jul, Arthralgia, unspecified joint M25.50 ; PVD (peripheral vascular disease) I73.9 and Neuropathy G62.9 [place] [id number] [place] [address] 16044- 2722 Jul, [place] [address] 41844- 1359 Jun, Medicare annual wellness visit, initial Z00.00 ; Cervicalgia M54.2 ; Radiculopathy of cervical region M54.12 ; Encounter for immunization Z23 ; Type 2 diabetes mellitus with unspecified complications E11.8 and Essential hypertension I10 [place] [address] [place] [address] 64038- 8151 Jun, [place] [id number] [place] [address] 58605- 4308 14 May, 2016 Hypothyroidism (acquired) E03.9 [place] [id number] [place] [address] 69954- 8456 May, Dysuria R30.0 ; Essential hypertension I10 ; Hypothyroidism (acquired) E03.9 and PVD (peripheral vascular disease) I73.9 [facility] [address] [place] [address] 16687 -0731 03 May, 2016 Burning with urination R30.0 and Acute cystitis with hematuria N30.01 [place] [id number] [address]- 2548 May, Dental examination Z01.20 [facility] [id number] [place] [address] 30075- 7718 May, Hypothyroidism (acquired) E03.9 [facility] [address] [place] [address] 66877 2544 Feb, [facility] [id number] [place] [address] 06175 2542 Feb, 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 ; PVD ( peripheral vascular disease) I73.9 ; Type 2 diabetes mellitus with unspecified complications E11.8 and Essential hypertension I10 [place] [id number] [place] [address] 60683- 0648 Jan, [place] [id number] [place] [address] 23989- 0734 Jan, Hypothyroidism (acquired) E03.9 [facility] [id number] [place] [address] 70533 2542 Jan, [facility] [id number] [place] [address] 85484 2547 Jan, [facility] [address] [place] [address] 90735- 254 Jan, Type 2 diabetes mellitus with unspecified complications E11.8 ; 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 and Essential ( primary) hypertension I10 [facility] [address] [place] [address] 45000 2548 Jan, Type 2 diabetes mellitus with unspecified complications E11.8 ; 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 ; Essential hypertension I10 and PVD (peripheral vascular disease) I73.9 [facility] [address] [address]- 6792 Jan, [facility] [id number] [place] [address] 72881- 0906 Jan, [facility] [id number] [place] [address] 85473- 6117 Jan, [place] [id number] [place] [address] 22391- 7550 Jan, Weakness R53.1 ; Fatigue, unspecified type R53.83 ; PVD ( peripheral vascular disease) I73.9 ; Acute osteomyelitis of other site M86.18 ; Type 2 diabetes mellitus with diabetic neuropathy, unspecified E11.40 and group home 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.4 [facility] [id number] [place] [address] 25474- 5483 Dec, [place] [id number] [place] [address] 47008- 6710 Dec, Type 2 diabetes mellitus with unspecified complications E11.8 [place] [id number] [place] [address] 86647- 5384 Dec, [place] [id number] [place] [address] 63030- 6275 Dec, Pressure ulcer, unspecified pressure ulcer stage L89.90 and Type 2 diabetes mellitus with unspecified complications E11.8 [facility] [id number] [place] [address] 54066 -3804 Dec, Toe infection L08.9 [place] [id number] [place] [address] 80271- 7404 November, Dental caries K02.9 [place] [id number] [place] [address] 11048- 1349 November, [place] [id number] [place] [address] 19994- 2855 November, Dental examination Z01.20 [place] [id number] [place] [address] 56019- 8845 Sep, Lipoma of torso D17.1 and Thoracic neuritis M54.14 [place] [address] [place] [address] 32355- 5388 Sep, [facility] [id number] [place] [address] 56383- 2775 Aug, [facility] [address] [place] [address] 48246 -7294 Jul, Dysuria R30.0 and UTI (urinary tract infection) N39.0 [facility] [id number] [place] [address] 72852- 6231 Jun, Left shoulder pain M25.512 [place] [address] 50714- 5096 May, Shoulder pain, left M25.512 [facility] [id number] [place] [address] 74734- 6807 May, [facility] [address] 56622- 1330 May, [facility] [id number] [place] [address] 59325- 9108 May, Left shoulder pain M25.512 [facility] [id number] [place] [address] 60997- 5002 May, [facility] [id number] [place] [address] 63107- 9158 Apr, Encounter for immunization Z23 [facility] [id number] [place] [address] 54926- 5865 Apr, Urinary tract infection, site not specified N39.0 ; Hypotension, unspecified I95.9 ; Type 2 diabetes mellitus with unspecified complications E11.8 and Generalized edema R60.1 [facility] [id number] [place] [address] 49350- 1438 Apr, [facility] [id number] [place] [address] 92582- 8134 Mar, Diabetes with other specified manifestations, type II or unspecified type, not stated as uncontrolled 250.80 [facility] [address] [address]- 4679 Feb, Gout 274.9 and Diabetes 250.00 [facility] [id number] [place] [address] 46060- 8584 Jan, [facility] [id number] [place] [address] 39320- 2225 November, CAD (coronary artery disease) 414.00 and CHF (congestive heart failure) 428.0 [facility] [id number] [place] [address] 34605- 0008 Oct, [facility] [id number] [place] [address] 35238- 1442 Oct, [facility] [id number] [place] [address] 75299- 2942 Oct, [facility] [id number] [place] [address] 69746- 3900 Sep, [facility] [id number] [place] [address] 10278- 2240 Sep, [facility] [id number] [place] [address] 97569- 4083 Sep, [facility] [address] [address]- 7274 Sep, [facility] [id number] [address]- 9438 Aug, [facility] [address] [address]- 8526 Aug, [facility] [id number] [place] [address] 11502- 6293 Aug, [facility] [address] [address]- 8113 Aug, [facility] [place] [facility] [address] [id number] [place] [address]- 9887 Aug, [facility] [place] [facility] [address] [id number] [place] [address]- 4323 Aug, [facility] [place] [facility] [address] [id number] [place] [address]- 5254 Aug, [facility] [place] [facility] [address] [id number] [place] [address]- 2769 Aug, [facility] [place] [facility] [address] [id number] [place] [address]- 4957 Jul, [facility] [place] [facility] [address] [id number] [place] [address]- 7341 Jul, [facility] [place] [facility] [address] [id number] [place] [address]- 3004 Jul, [facility] [place] [facility] [address] [id number] [place] [address]- 7892 Jul, [facility] [place] [facility] [address] [id number] [place] [address]- 9342 Jul, [facility] [place] [facility] [address] [id number] [place] [address]- 8555 Jul, [facility] [place] [facility] [address] [id number] [place] [address]- 2216 Jul, [facility] [place] [facility] [address] [id number] [address]- 2597 Jul, [facility] [place] [facility] [address] [id number] [place] [address]- 7591 Jul, [facility] [place] [facility] [address] [id number] [place] [address] Jul, [facility] [place] [facility] [address] [id number] [place] [address] Jun, [facility] [place] [facility] [address] [id number] [place] [address] Jun, [facility] [place] [facility] [address] [id number] [place] [address] Jun, [facility] [place] [facility] [address] [id number] [id number] [address] Jun, [facility] [place] [facility] [address] [id number] [place] [address] Jun, [facility] [place] [facility] [address] [id number] [place] [address] Jun, [facility] [place] [facility] [address] [id number] [place] [address] Jun, [facility] [place] [facility] [address] [id number] [place] [address] Jun, [facility] [place] [facility] [address] [id number] [place] [address] Jun, [facility] [place] [facility] [address] [id number] [place] [address] Jun, [facility] [place] [facility] [address] [id number] [place] [address] May, [facility] [place] [facility] [address] [id number] [place] [address] May, [facility] [place] [facility] [address] [id number] [place] [address] 18 Mar, 2014 [facility] [place] [facility] [address] [id number] [place] [address] 18 Mar, 2014 [facility] [place] [facility] [address] [id number] [place] [address] 10 Mar, 2014 [facility] [place] [facility] [address] [id number] [place] [address] Mar, [facility] [facility] [address] [id number] [place] [address] Feb, [facility] [place] [facility] [address] [id number] [place] [address] Feb, [facility] [place] [facility] [address] [id number] [place] [address] 9[address] Feb, [facility] [place] [facility] [address] [id number] [place] [address] 69[address] Jan, [facility] [place] [facility] [address] [id number] [place] [address] 8896 Jan, [facility] [place] [facility] [address] [id number] [place] [address] 0745 Jan, [facility] [place] [facility] [address] [id number] [place] [address] 3194 Jan, [facility] [place] [facility] [address] [id number] [place] [address] 9124 Jan, [facility] [facility] [address] [id number] [place] [address] Jan, [facility] [address] [id number] [place] [address] 29[address] Jan, [facility] [place] [facility] [address] [id number] [place] [address] 65[address] Jan, [facility] [address] [id number] [place] [address] 0295 Jan, [facility] [place] [facility] [address] [id number] [place] [address]- 7593 Jan, [facility] [place] [facility] [address] [id number] [place] [address]- 2464 Dec, [facility] [place] [facility] [address] [id number] [place] [address]- 9666 Dec, [facility] [facility] [address] [id number] [place] [address]- 8950 November, [facility] [address] [id number] [place] [address]- 5202 November, [facility] [place] [facility] [address] [id number] [place] [address]- 2319 November, [facility] [place] [facility] [address] [id number] [place] [address] 2002 November, [facility] [place] [facility] [address] [id number] [place] [address] November, [facility] [place] [facility] [address] [id number] [place] [address]- 7089 November, [facility] [place] [facility] [address] [id number] [place] [address]- 6995 November, [facility] [place] [facility] [address] [id number] [place] [address]- 4868 Oct, [facility] [place] [facility] [address] [id number] [place] [address]- 3633 Oct, [facility] [place] [facility] [address] [id number] [place] [address]- 8817 Sep, [facility] [place] [facility] [address] [id number] [place] [address]- 4791 Sep, [facility] [place] [facility] [address] [id number] [place] [address]- 1058 Sep, [facility] [place] [facility] [address] [id number] [place] [address]- 1846 Sep, [facility] [place] [address] [id number] [place] [address]- 0060 Sep, [facility] [address] [id number] [place] [address]- 9571 Sep, [facility] [place] [facility] [address] [id number] [place] [address]- 8012 Sep, [facility] [place] [address] [id number] [place] [address] Sep, [facility] [address] [id number] [place] [address]- 2038 Sep, [facility] [address] [id number] [place] [address]- 7498 Sep, [facility] [address] [id number] [place] [address]- 1879 Aug, [facility] [address] [id number] [place] [address]- 1962 Aug, [facility] [place] [address] [id number] [place] [address]- 1872 Jul, [facility] [address] [id number] [place] [address]- 3826 Jul, [facility] [address] [id number] [place] [address]- 4058 Jul, [facility] [address] [id number] [place] [address]- 3771 Jul, [facility] [address] [id number] [place] [address]- 4394 Jul, [facility] [address] [id number] [place] [address]- 9102 Jul, [facility] [address] [id number] [place] [address]- 2232 Jun, [facility] [address] [id number] [place] [address]- 1638 Jun, [facility] [address] [id number] [place] [address]- 9721 Jun, [facility] [address] [id number] [place] [address]- 8352 Jun, [facility] [address] [id number] [place] [address]- 2375 May, [facility] [address] [id number] [place] [address]- 5408 May, [facility] [address] [id number] [place] [address]- 8596 May, [facility] [address] [id number] [place] [address]- 6059 May, [facility] [address] [id number] [place] [address]- 1720 May, [facility] [address] [id number] [place] [address]- 9478 Apr, [facility] [address] [id number] [place] [address]- 2524 Apr, [facility] [address] [id number] [place] [address]- 8963 Apr, [facility] [address] [id number] [place] [address]- 1013 Apr, [facility] [address] [id number] [place] [address]- 3983 Apr, [facility] [address] [id number] [place] [address] 1929 Apr, [facility] [place] [facility] [address] [id number] [place] [address]- 5380 Apr, [facility] [address] [id number] [place] [address]- 6766 Apr, [facility] [address] [id number] [place] [address]- 6499 Apr, [facility] [address] [id number] [place] [address]- 7898 Apr, [facility] [address] [id number] [place] [address]- 3340 Apr, [facility] [address] [id number] [place] [address]- 2415 Apr, [facility] [address] [id number] [place] [address]- 5936 Mar, [facility] [address] [id number] [place] [address]- 5575 Mar, [facility] [address] [id number] [place] [address]- 2336 Feb, [facility] [address] [id number] [place] [address]- 6378 Jan, [facility] [address] [id number] [place] [address]- 2097 Jan, [facility] [address] [id number] [place] [address]- 2753 Jan, [facility] [address] [id number] [place] [address]- 3677 Jan, [facility] [address] [id number] [place] [address]- 3380 Dec, [facility] [address] [id number] [place] [address]- 6219 Dec, [facility] [address] [id number] [place] [address]- 1435 Dec, [facility] [address] [id number] [place] [address]- 0462 Dec, [facility] [address] [id number] [place] [address]- 5832 Dec, [facility] [address] [id number] [place] [address]- 9497 Dec, [facility] [address] [id number] [place] [address]- 6680 Dec, [facility] [address] [id number] [place] [address]- 7566 November, [facility] [address] [id number] [place] [address]- 0074 November, [facility] [address] [id number] [place] [address]- 3879 November, [facility] [address] [id number] [place] [address]- 3101 Oct, [facility] [address] [id number] [place] [address] 2546 Oct, [facility] [address] [id number] [place] [address]- 8019 Oct, [facility] [address] [id number] [place] [address]- 1909 Oct, [facility] [address] [id number] [place] [address]- [address] Oct[facility] [address] [id number] [place] [address]- 0221 Sep, [facility] [address] [id number] [place] [address]- [address] Sep, [facility] [address] [id number] [place] [address]- 2210 Sep, [facility] [address] [id number] [place] [address]- [address] Sep, [facility] [address] [id number] [place] [address]- 1601 Aug, [facility] [address] [id number] [place] [address]- [address] Aug, [facility] [address] [id number] [place] [address]- 2546 Aug, [facility] [address] [id number] [place] [address]- [address] Aug, [facility] [address] [id number] [place] [address]- 2546 Jul, [facility] [address] [id number] [place] [address]- 1795 Jul, [facility] [address] [id number] [place] [address]- 5732 Jun, [facility] [address] [id number] [place] [address]- 5283 Jun, [facility] [address] [id number] [place] [address]- 2791 Jun, [facility] [address] [id number] [place] [address]- 2912 Jun, [facility] [address] [id number] [place] [address]- 3639 May, [facility] [address] [id number] [place] [address]- 0731 May, [facility] [address] [facility] [id number] [place] [address]- 0866 May, [facility] [address] [id number] [place] [address]- 4521 May, [facility] [address] [id number] [place] [address]- 7370 Apr, [facility] [address] [facility] [id number] [address]- 8760 Apr, [facility] [address] [id number] [place] [address]- 0926 Apr, [facility] [address] [id number] [place] [address]- 4590 31 Apr, 2012 [facility] [address] [id number] [place] [address]- 7336 30 Apr, 2012 [facility] [address] [id number] [place] [address]- 5335 30 Apr, 2012 [facility] [address] [facility] [id number] [address]- 1112 Apr, [facility] [address] [id number] [place] [address]- 7361 Apr, [facility] [address] [id number] [place] [address]- 6076 Apr, [facility] [address] [id number] [place] [address]- 4236 Apr, [facility] [address] [id number] [place] [address]- 3946 Feb, [facility] [address] [id number] [place] [address]- 0242 Feb, [facility] [address] [id number] [place] [address]- 7486 Jan, [facility] [address] [id number] [place] [address]- 8863 Jan, [facility] [place] [facility] [address] [id number] [place] [address]- 1946 Jan, [facility] [facility] [address] [id number] [place] [address]- 8408 Jan, [facility] [place] [facility] [address] [id number] [place] [address]- 5359 Jan, [facility] [place] [facility] [address] [id number] [place] [address]- 0220 Jan, [facility] [place] [facility] [address] [id number] [place] [address]- 6104 Dec, [facility] [address] [id number] [place] [address]- 5913 November, [facility] [place] [address] [id number] [place] [address]- 0236 November, [facility] [place] [facility] [address] [id number] [place] [address]- 5284 November, [facility] [address] [id number] [place] [address]- 0756 Sep, [facility] [address] [id number] [place] [address]- 5310 Sep, [facility] [address] [id number] [place] [address]- 4759 Sep, [facility] [place] [facility] [address] [id number] [place] [address]- 2678 Sep, [facility] [place] [facility] [address] [id number] [place] [address]- 9770 Sep, [facility] [place] [facility] [address] [id number] [place] [address]- 3492 Sep, [facility] [place] [facility] [address] [id number] [place] [address]- 8757 Aug, [facility] [place] [facility] [address] [id number] [place] [address]- 5828 Aug, [facility] [place] [facility] [address] [id number] [place] [address]- 4849 Aug, [facility] [place] [facility] [address] [id number] [place] [address]- 8764 Jul, [facility] [place] [facility] [address] [id number] [place] [address]- 2820 Jul, [facility] [facility] [address] [id number] [place] [address]- 1936 Jul, [facility] [place] [facility] [address] [id number] [place] [address]- 8718 Jul, [facility] [place] [facility] [address] [id number] [place] [address]- 7733 Jun, [facility] [place] [facility] [address] [id number] [place] [address]- 0516 Jun, [facility] [place] [facility] [address] [id number] [place] [address]- 3536 Jun, [facility] [place] [facility] [address] [id number] [address]- 2801 06 Jun, 2011 [facility] [place] [facility] [address] [id number] [place] [address]- 8926 05 Jun, 2011 [facility] [place] [facility] [address] [id number] [place] [address]- 6636 Jun, [facility] [place] [facility] [address] [id number] [place] [address]- 4156 May, [facility] [place] [facility] [address] [id number] [place] [address]241 May, [facility] [place] [facility] [address] [id number] [place] [address]- 9816 May, [facility] [place] [facility] [address] [id number] [place] [address]- 5644 Apr, [facility] [address] [id number] [place] [address]- 8966 Jan, [facility] [place] [facility] [address] [id number] [place] [address]- 4850 Jun, [facility] [place] [facility] [address] [id number] [place] [address]- 3619 Jun, [facility] [place] [facility] [address] [id number] [place] [address] 2549 15 Jun, 2010 [facility] [place] [facility] [address] [id number] [place] [address] 2546 15 Jun, 2010 [facility] [place] [facility] [address] [id number] [place] [address] 2546 15 Jun, 2010 [facility] [place] [facility] [address] [id number] [place] [address] 2546 13 Jun, 2010 [facility] [place] [facility] [address] [id number] [place] [address] 2546 13 Jun, 2010 [facility] [place] [facility] [address] [id number] [place] [address]- 0118 Apr, [facility] [place] [facility] [address] [id number] [place] [address]- 0611 17 Feb, 2010 [facility] [address] [id number] [place] [address]- 2186 15 Aug, 2009 [facility] [place] [facility] [address] [id number] [place] [address] 2546 Jul, [facility] [address] [id number] [place] [address] 2546 Jul, [facility] [address] [id number] [place] [address] 2543 29 Jun, 2009 [facility] [address] [id number] [place] [address]- [address] Jun, [facility] [address] [facility] [id number] [place] [address]- [address] Jun, [facility] [address] [facility] [id number] [place] [address]- [address] Jun, [facility] [address] [id number] [place] [address]- 1502 16 Jun, [address] [facility] [address] [facility] [id number] [place] [address]- [address] Jun, [facility] [address] [facility] [id number] [place] [address]- [address] Jun, [facility] [address] [id number] [place] [address]- 6303 30 May, 2009 [facility] [address] [id number] [place] [address] 2549 27 May, 2009 [facility] [place] [facility] [address] [id number] [place] [address] 2546 May, [facility] [facility] [address] [facility] [id number] [place] [address]- 2546 May, [facility] [place] [facility] [address] [id number] [place] [address] 2540 May, [facility] [address] [facility] [id number] [place] [address]- 2546 May, [facility] [address] [id number] [address]- 2546 May, [facility] [address] [facility] [id number] [place] [address]- 2546 Apr, [facility] [address] [id number] [address]- 2546 Apr, [facility] [address] [facility] [id number] [place] [address]- 6536 Jan, [facility] [address] [id number] [address]- 2546 Oct, IMMUNIZATIONS No Known Immunizations SOCIAL HISTORY Never Assessed REASON FOR VISIT Refill request PLAN OF CARE VITAL SIGNS MEDICATIONS Medication Instructions Dosage Frequency Start Date End Date Duration Status Tresiba FlexTouch 200 UNIT/ML Subcutaneous Once a day Inject 16 units in AM 24h Jan, 90 days Active RESULTS No Results PROCEDURES No [...]
--- OUTSIDE RECORDS SUMMARY | 2018-11-09 12:50 | XMS REPORT ---
Author Author LUIS CARLOS RODRIGUEZ [facility] Address [address] [place] [address] Care Team Providers Care General Operations Manager Name Role Phone LUIS CARLOS RODRIGUEZ Unavailable PROBLEMS ALLERGIES No Information ENCOUNTERS IMMUNIZATIONS No Known Immunizations SOCIAL HISTORY No smoking Hx information available REASON FOR VISIT PLAN OF CARE VITAL SIGNS MEDICATIONS Unknown Medications RESULTS No Results PROCEDURES INSTRUCTIONS MEDICATIONS ADMINISTERED No Known Medications MEDICAL (GENERAL) HISTORY
--- OUTSIDE RECORDS SUMMARY | 2018-11-09 12:51 | XMS REPORT ---
Author Author ANTONIO ASAD Organization [facility] Address [address] [place] [address] Care Team Providers Care Sociology Faculty Member Name Role Phone ROSALINECHRIS ASAD Unavailable PROBLEMS Type Condition ICD9-CM Code IVZ79-WZ Code Onset Dates Condition Status SNOMED Code Problem Hypoglycemia E16.2 Active 692290724 Problem Hallucinations R44.3 Active 8727656 Problem Unsteady gait R26.81 Active 10651712 Problem 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 Active [id number] Problem Dysuria R30.0 Active 38064278 Problem Anxiety F41.9 Active 29072382 Problem Dementia in other diseases classified elsewhere without behavioral disturbance F02.80 Active 268458086 Problem Other frontotemporal dementia G31.09 Active 673141799 Problem Parkinsons disease G20 Active 09174546 Problem Episodic cluster headache, not intractable G44.019 Active 877266955 Problem Neurogenic orthostatic hypotension G90.3 Active 307545164 Problem Mixed stress and urge urinary incontinence N39.46 Active 738756681 Problem 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 Active 552077059 Problem Essential hypertension I10 Active 29070210 Problem Type 2 diabetes mellitus with unspecified complications E11.8 Active 72026613 Problem PVD (peripheral vascular disease) I73.9 Active 928506047 Problem Dysthymia F34.1 Active 95074800 Problem Polydipsia R63.1 Active 20367634 Problem Coronary artery disease involving [place] coronary artery of [place] heart without angina pectoris I25.10 Active 8675514453762 Problem Hypothyroidism (acquired) E03.9 Active 202329277 Problem Hyperlipemia, mixed E78.2 Active 056500034 Problem Dementia with Lewy bodies G31.83 Active 802629120 Problem Neuropathy G62.9 Active 718511261 Problem Hypernatremia E87.0 Active 54065263 ALLERGIES Substance Reaction Event Type Date Status Sulfamethoxazole-Trimethoprim Unknown Drug Allergy Mar, Active Protamine Sulfate Unknown Drug Allergy Mar, Active Penicillin V Potassium Unknown Drug Allergy Mar, Active Cipro lowers blood sugar Drug Allergy Mar, Active ENCOUNTERS Encounter Location Date Diagnosis [place] [address] [address]60- 5903 Apr, [place] [address] 97575- 0587 28 Mar, 2018 Left shoulder pain M25.512 [place] [address] 88877- 0894 Mar, [place] [address] 937937- 3755 Mar, Hyperlipemia, mixed E78.2 ; Essential hypertension I10 and Coronary artery disease involving nooks[place] coronary artery of [place] heart without angina pectoris I25.10 [place] [address] 91873- 3944 Mar, Type 2 diabetes mellitus with unspecified complications E11.8 [place] [address] 68972- 6074 Mar, 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 [place] [address] 86547- 0450 Mar, [place] [address] [place] [id number] [place] [address] 66334- 7315 Mar, [place] [address] [place] [id number] [place] [address] 89410- 3044 Mar, [place] [address] 72299- 0815 Mar, [place] [address] 47073- 3834 Mar, Cellulitis of left lower extremity L03.116 and Petechial rash R23.3 [place] [address] 08827- 7255 Feb, Left shoulder pain M25.512 [facility] [address] [place] [id number] [place] [address] 88791- 4675 Feb, Left shoulder pain M25.512 [facility] [address] [place] [id number] [place] [address] 61207- 8116 Feb, 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 [facility] [address] 76682- 8587 Jan, Left shoulder pain M25.512 [facility] [address] 05581- 1510 Dec, Parkinsons disease G20 [facility] [address] 77903- 0305 Dec, Left shoulder pain M25.512 [facility] [address] 59611- 0509 Dec, Type 2 diabetes mellitus with unspecified complications E11.8 ; Anxiety F41.9 ; Therapeutic drug monitoring Z51.81 and Analgesic use Z79.899 [facility] [address] 98295- 9841 November, [facility] [address] 43025- 6783 November, [facility] [address] [place] [id number] [place] [address] 69360- 9279 November, Left shoulder pain M25.512 [facility] [address] [place] [id number] [place] [address] 72979- 8622 Oct, [facility] [address] 37922 -5217 Oct, [facility] [address] 58365- 1146 Oct, Parkinsons disease G20 [facility] [address] 74791 -0054 Oct, Acute cystitis without hematuria N30.00 and Viral upper respiratory tract infection J06.9 [place] [address] [place] [id number] [place] [address] 66982- 7526 Oct, [place] [address] [place] [id number] [place] [address] 09668- 0827 Oct, Type 2 diabetes mellitus with unspecified complications E11.8 [place] [address] [place] [id number] [place] [address] 28927- 6217 Oct, Left shoulder pain M25.512 [place] [address] [place] [id number] [place] [address] 02334- 1285 Oct, Type 2 diabetes mellitus with unspecified complications E11.8 ; Dysuria R30.0 and Neurogenic orthostatic hypotension G90.3 [place] [address] [place] [id number] [place] [address] 18582- 0015 Sep, Left shoulder pain M25.512 [place] [address] [place] [id number] [place] [address] 71963- 6596 Sep, Medicare annual wellness visit, initial Z00.00 ; Parkinsons disease G20 ; Type 2 diabetes mellitus with unspecified complications E11.8 ; Essential hypertension I10 ; Coronary artery disease involving nooks[place] coronary artery of nooksack heart without angina pectoris I25.10 ; Hypothyroidism (acquired ) E03.9 ; PVD (peripheral vascular disease) I73.9 ; Dysthymia F34.1 ; Hyperlipemia, mixed E78.2 ; Neuropathy G62.9 ; Encounter for immunization Z23 ; Encounter for other screening for malignant neoplasm of breast Z12.39 and Mixed stress and urge urinary incontinence N39.46 [place] [address] [place] [id number] [place] [address] 58296- 5167 Aug, Parkinsons disease G20 [place] [address] [place] [id number] [place] [address] 78508- 4391 Aug, Type 2 diabetes mellitus with unspecified complications E11.8 ; Left shoulder pain M25.512 and Hypotensive episode I95.9 [place] [address] [place] [id number] [place] [address] 50306- 2323 09 Aug, 2017 Coronary artery disease involving no[place] coronary artery of nooksack heart without angina pectoris I25.10 [place] [address] [place] [id number] [place] [address] 95314- 0176 07 Aug, 2017 Type 2 diabetes mellitus with unspecified complications E11.8 [place] [address] 10492- 6216 Jul, Callus of foot L84 [place] [address] 23061- 3136 Jul, [place] [address] 51208- 9358 Jul, Callus of foot L84 ; Episodic cluster headache, not intractable G44.019 ; Type 2 diabetes mellitus with unspecified complications E11.8 and Parkinsons disease G20 [place] [address] 03925- 0351 Jul, [place] [address] 05339- 6087 Jul, [address] 73137- 9609 Jun, Type 2 diabetes mellitus with unspecified complications E11.8 ; Unsteady gait R26.81 ; Forgetfulness R68.89 and Hallucinations R44.3 [place] [address] [place] [id number] [place] [address] 51018- 6982 Jun, [place] [address] 65677- 6645 Jun, Left shoulder pain M25.512 [place] [address] 61832- 3745 May, Hypernatremia E87.0 and Polydipsia R63.1 [place] [address] 36534- 9614 May, Hypernatremia E87.0 and Polydipsia R63.1 [place] [place] [id number] [place] [address] 66560- 3711 May, Hypoglycemia E16.2 ; Dysuria R30.0 ; Unsteadiness on feet R26.81 ; Forgetfulness R68.89 ; Type 2 diabetes mellitus with unspecified complications E11.8 and Yeast infection involving the vagina and surrounding area B37.3 [place] [address] 26076- 0037 May, Acute cystitis without hematuria N30.00 [facility] [address] 93602 -1227 Apr, Dysuria R30.0 and Acute cystitis without hematuria N30.00 [place] [address] [place] [id number] [place] [address] 63259- 7722 Apr, Hypernatremia E87.0 and Polydipsia R63.1 [place] [address] [place] [id number] [place] [address] 41448- 8561 Apr, Vertigo R42 and Type 2 diabetes mellitus with unspecified complications E11.8 [place] [address] [place] [id number] [place] [address] 96225- 9918 Mar, [place] [address] [place] [id number] [place] [address] 74953- 0097 19 Mar, 2017 Left shoulder pain M25.512 [facility] [address] [place] [id number] [place] [address] 54748- 9839 13 Mar, 2017 Vertigo R42 [place] [address] 92391- 9551 12 Mar, 2017 Polydipsia R63.1 [place] [address] [place] [id number] [place] [address] 79200- 5167 Mar, Polydipsia R63.1 [place] [address] 11775- 9647 11 Mar, 2017 Vertigo R42 [place] [address] 04992- 7354 07 Mar, 2017 Type 2 diabetes mellitus with unspecified complications E11.8 ; Vertigo R42 ; Polydipsia R63.1 ; Polyuria R35.8 ; Hypothyroidism ( acquired) E03.9 ; Abnormal urinalysis R82.90 and Dysthymia F34.1 [place] [address] 56117- 9081 05 Mar, 2017 Coronary artery disease of no[place] artery with stable angina pectoris, unspecified whether nooksack or transplanted heart I25.118 ; Systolic CHF, chronic I50.22 ; Hyperlipemia, mixed E78.2 and Essential hypertension I10 [facility] [address] [id number] Feb, Dental caries K02.9 [place] [address] 30549- 1205 Feb, Type 2 diabetes mellitus with diabetic neuropathy, unspecified E11.40 [place] [address] 43773- 1914 23 Dec, 2016 Left shoulder pain M25.512 [place] [address] 83035- 6081 16 Dec, 2016 [place] [address] 80639- 9452 15 Dec, 2016 Type 2 diabetes mellitus with unspecified complications E11.8 [facility] [address] [id number] Dec, Dental examination Z01.20 [place] [address] 53123- 9488 08 Dec, 2016 Type 2 diabetes mellitus with diabetic neuropathy, unspecified E11.40 [place] [address] 64033- 0673 07 Dec, 2016 [place] [address] 42809- 8447 Dec, Type 2 diabetes mellitus with diabetic neuropathy, unspecified E11.40 [place] [address] 67921- 9173 November, Left shoulder pain M25.512 [place] [address] 88414- 7506 November, [place] [address] 13924- 8024 November, Type 2 diabetes mellitus with unspecified complications E11.8 and Dysuria R30.0 [place] [address] 65622- 5286 Oct, Left shoulder pain M25.512 [place] [address] 20239- 5646 Sep, Left shoulder pain M25.512 [place] [address] 66763- 3888 Sep, Pre-op testing Z01.818 [place] [address] 62951- 6108 Sep, Pre-op testing Z01.818 [place] [address] 39427- 5134 Sep, Pre-op testing Z01.818 [place] [address] 89786- 2781 Sep, Pre-op testing Z01.818 and Mouth pain K13.79 [place] [address] 40009- 2936 Sep, Left shoulder pain M25.512 [place] [address] 77337- 9502 Aug, Other eczema L30.8 [place] [address] [place] [address]- 5934 06 Aug, 2016 PVD (peripheral vascular disease) I73.9 ; Type 2 diabetes mellitus with unspecified complications E11.8 ; Acute cystitis with hematuria N30.01 ; Other eczema L30.8 ; Dysuria R30.0 and Left shoulder pain M25.512 [facility] [address] [place] [id number] [place] [address] 41158 -4934 Jul, Otalgia of right ear H92.01 and Blood in ear canal, right H92.21 [place] [address] 51222- 2808 Jul, Arthralgia, unspecified joint M25.50 ; PVD (peripheral vascular disease) I73.9 and Neuropathy G62.9 [place] [address] 84829- 2294 Jul, [place] [address] 02545- 8913 Jun, Medicare annual wellness visit, initial Z00.00 ; Cervicalgia M54.2 ; Radiculopathy of cervical region M54.12 ; Encounter for immunization Z23 ; Type 2 diabetes mellitus with unspecified complications E11.8 and Essential hypertension I10 [place] [address] [place] [id number] [place] [address] 69642- 5731 Jun, [place] [address] 19419- 4774 14 May, 2016 Hypothyroidism (acquired) E03.9 [place] [address] 11370- 3704 10 May, 2016 Dysuria R30.0 ; Essential hypertension I10 ; Hypothyroidism (acquired) E03.9 and PVD (peripheral vascular disease) I73.9 [facility] [address] [place] [id number] [place] [address] 01343 -0106 03 May, 2016 Burning with urination R30.0 and Acute cystitis with hematuria N30.01 [place] [address] [address]- 0557 May, Dental examination Z01.20 [facility] [address] [place] [id number] [place] [address] 80488- 4166 May, Hypothyroidism (acquired) E03.9 [facility] [address] [place] [id number] [place] [address] 15931- 1242 Feb, [facility] [address] [place] [id number] [place] [address] 14078- 4553 Feb, 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 ; PVD ( peripheral vascular disease) I73.9 ; Type 2 diabetes mellitus with unspecified complications E11.8 and Essential hypertension I10 [facility] [address] [place] [id number] [place] [address] 40953- 4989 Jan, [facility] [address] [place] [id number] [place] [address] 69571- 9403 Jan, Hypothyroidism (acquired) E03.9 [facility] [address] [place] [id number] [place] [address] 84753- 6457 Jan, [facility] [address] [place] [id number] [place] [address] 91296- 5141 Jan, [facility] [address] [place] [address] 02757- 6744 Jan, Type 2 diabetes mellitus with unspecified complications E11.8 ; 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 and Essential ( primary) hypertension I10 [facility] [address] [address]- 4642 Jan, Type 2 diabetes mellitus with unspecified complications E11.8 ; 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 ; Essential hypertension I10 and PVD (peripheral vascular disease) I73.9 [facility] [address], [place] [address]- 3083 Jan, [facility] [address] [place] [id number] [place] [address] 26015- 1869 Jan, [facility] [address] [place] [address] 96964- 9857 Jan, [place] [address] [place] [id number] [place] [address] 51772- 3226 Jan, Weakness R53.1 ; Fatigue, unspecified type R53.83 ; PVD ( peripheral vascular disease) I73.9 ; Acute osteomyelitis of other site M86.18 ; Type 2 diabetes mellitus with diabetic neuropathy, unspecified E11.40 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 [facility] [address] [place] [id number] [place] [address] 88617- 7390 Dec, [place] [address] [place] [id number] [place] [address] 89470- 1296 Dec, Type 2 diabetes mellitus with unspecified complications E11.8 [place] [address] [place] [id number] [place] [address] 32696- 4055 Dec, [place] [address] [place] [id number] [place] [address] 33999- 1283 Dec, Pressure ulcer, unspecified pressure ulcer stage L89.90 and Type 2 diabetes mellitus with unspecified complications E11.8 [facility] [address], [place] [address] -[address] Dec, Toe infection L08.9 [facility] [address] [place] [id number] [place] [address] 62526- 1163 November, Dental caries K02.9 [place] [address] [place] [address] 94681- 2740 November, [place] [address] [place] [id number] [place] [address] 34590- 5795 November, Dental examination Z01.20 [place] [address] [address]- 0157 Sep, Lipoma of torso D17.1 and Thoracic neuritis M54.14 [facility] [address] [place] [address] 42708- 5869 Sep, [facility] [address] [place] [id number] [place] [address] 71084- 8542 Aug, [facility] [address] [place] [address] 21585 -7051 Jul, Dysuria R30.0 and UTI (urinary tract infection) N39.0 [facility] [address] [place] [id number] [place] [address] 13537- 1400 Jun, Left shoulder pain M25.512 [place] [address] 05564- 4031 May, Shoulder pain, left M25.512 [place] [address] [place] [id number] [place] [address] 96919- 5439 May, [facility] [address] [place] [id number] [place] [address] 37416- 5399 May, [facility] [address] [place] [id number] [place] [address] 63348- 9322 May, Left shoulder pain M25.512 [facility] [address] [place] [id number] [place] [address] 51851- 3041 May, [facility] [address] [place] [id number] [place] [address] 58747- 4494 Apr, Encounter for immunization Z23 [facility] [address] [place] [id number] [place] [address] 39682- 2509 Apr, Urinary tract infection, site not specified N39.0 ; Hypotension, unspecified I95.9 ; Type 2 diabetes mellitus with unspecified complications E11.8 and Generalized edema R60.1 [facility] [address] [place] [address] 23572- 5506 Apr, [facility] [address] [place] [id number] [place] [address] 00294- 1436 Mar, Diabetes with other specified manifestations, type II or unspecified type, not stated as uncontrolled 250.80 [facility] [address], [place] [address]- 2944 Feb, Gout 274.9 and Diabetes 250.00 [facility] [address] [place] [id number] [place] [address] 53883- 7811 Jan, [facility] [address] [place] [id number] [place] [address] 92916- 8088 November, CAD (coronary artery disease) 414.00 and CHF (congestive heart failure) 428.0 [facility] [address] [place] [id number] [place] [address] 17554- 3024 Oct, [facility] [address] [place] [id number] [place] [address] 22390- 5783 Oct, [facility] [address] [place] [id number] [place] [address] 64538- 2623 Oct, [facility] [address] [place] [id number] [address]- 1411 Sep, [facility] [address] [place] [id number] [place] [address] 92014- 3931 Sep, [facility] [address] [place] [id number] [address]- 3989 Sep, [facility] [address], [place] [address]- 9056 Sep, [facility] [address], [place] [address]- 5477 Aug, [facility] [address] 7756 Aug, [facility] [address] 9905 Aug, [facility] [address] [address]110 Aug, [facility] [place] [facility] [address] [id number] [place] [address]- 0512 Aug, [facility] [place] [facility] [address] [id number] [place] [address]- 9265 Aug, [facility] [place] [facility] [address] [id number] [place] [address]- 9209 Aug, [facility] [place] [facility] [address] [id number] [place] [address]- 0705 Aug, [facility] [place] [facility] [address] [id number] [place] [address]- 7162 Jul, [facility] [place] [facility] [address] [id number] [place] [address]- 6937 Jul, [facility] [place] [facility] [address] [id number] [place] [address]- 1715 Jul, [facility] [place] [facility] [address] [id number] [place] [address]- 8206 Jul, [facility] [place] [facility] [address] [id number] [place] [address]- 4074 Jul, [facility] [place] [facility] [address] [id number] [place] [address]- 6409 Jul, [facility] [place] [facility] [address] [id number] [address]- 8921 Jul, [facility] [place] [facility] [address] [id number], [place] [address]- 3808 Jul, [facility] [place] [facility] [address] [id number] [place] [address]- 9006 Jul, [facility] [place] [facility] [address] [id number], [place] [address]- 7944 Jul, [facility] [place] [facility] [address] [id number] [place] [address]- 2535 Jun, [facility] [place] [facility] [address] [id number], [place] [address]- 0923 Jun, [facility] [place] [facility] [address] [id number] [place] [address]- 0494 Jun, [facility] [place] [facility] [address] [id number] [place] [address]- 6532 Jun, [facility] [place] [facility] [address] [facility] [id number] [place] [address]- 3720 Jun, [facility] [place] [facility] [address] [id number] [place] [address]- 7299 Jun, [facility] [place] [facility] [address] [id number] [place] [address]- 4558 Jun, [facility] [place] [facility] [address] [id number] [place] [address]- 0090 Jun, [facility] [place] [facility] [address] [facility] [id number] [place] [address]- 9816 Jun, [facility] [place] [facility] [address] [id number] [place] [address]- 0908 Jun, [facility] [place] [facility] [address] [id number] [place] [address] May, [facility] [place] [facility] [address] [facility] [id number] [place] [address] May, [facility] [place] [facility] [address] [id number] [place] [address] 18 Mar, 2014 [facility] [place] [facility] [address] [id number], [place] [address] 18 Mar, 2014 [facility] [place] [facility] [address] [id number] [place] [address] 10 Mar, 2014 [facility] [place] [facility] [address] [id number] [place] [address] 10 Mar, 2014 [facility] [place] [facility] [address] [facility] [id number] [place] [address] Feb, [facility] [place] [facility] [address] [id number] [place] [address] Feb, [facility] [place] [facility] [address] [id number] [place] [address] Feb, [facility] [place] [facility] [address] [id number] [place] [address] Jan, [facility] [place] [facility] [address] [id number] [place] [address] Jan, [facility] [place] [facility] [address] [id number] [place] [address] Jan, [facility] [place] [facility] [address] [id number] [place] [address] Jan, [facility] [place] [facility] [address] [id number] [place] [address] Jan, [facility] [place] [facility] [address] [id number] [place] [address] Jan, [facility] [place] [facility] [address] [id number] [place] [address] Jan, [facility] [place] [facility] [address] [address] [id number] [place] [address] Jan, [facility] [place] [facility] [address] [id number] [place] [address] Jan, [facility] [place] [facility] [address] [id number] [place] [address]87 Jan, [facility] [place] [facility] [address] [id number] [place] [address] 98[address] Dec, [facility] [place] [facility] [address] [id number] [place] [address] 8765 Dec, [facility] [place] [facility] [address] [id number] [place] [address] 2777 November, [facility] [place] [facility] [address] [id number] [place] [address] 4098 November, [facility] [place] [facility] [address] [id number] [place] [address] 9470 November, [facility] [place] [facility] [address] [id number] [place] [address] 1998 November, [facility] [place] [facility] [address] [id number] [place] [address] November, [facility] [place] [facility] [address] [id number] [place] [address] 5968 November, [facility] [place] [facility] [address] [id number] [place] [address] 9513 November, [facility] [place] [facility] [address] [id number] [place] [address] 2681 Oct, [facility] [place] [facility] [address] [id number] [place] [address] 8759 Oct, [facility] [place] [facility] [address] [id number] [place] [address] 6942 Sep, [facility] [place] [facility] [address] [id number] [place] [address] 7870 Sep, [facility] [place] [facility] [address] [id number] [place] [address]- 1457 Sep, [facility] [place] [facility] [address] [id number] [place] [address]- 1373 Sep, [facility] [place] [facility] [address] [id number] [place] [address]- 9601 Sep, [facility] [place] [facility] [address] [id number] [place] [address]- 0568 Sep, [facility] [place] [facility] [address] [id number] [place] [address]- 5121 Sep, [facility] [place] [facility] [address] [id number] [place] [address] 8016 Sep, [facility] [place] [facility] [address] [id number] [place] [address]- 9516 Sep, [facility] [address] [id number] [place] [address] 5715 Sep, [facility] [address] [id number] [place] [address] Aug, [facility] [address] [id number] [place] [address] 1498 Aug, [facility] [address] [id number] [place] [address] 0964 Jul, [facility] [address] [id number] [place] [address] 6743 Jul, [facility] [address] [id number] [place] [address] 7917 Jul, [facility] [address] [id number] [place] [address] 2770 Jul, [facility] [address] [id number] [place] [address] 9515 Jul, [facility] [address] [id number] [place] [address] 8140 Jul, [facility] [address] [id number] [place] [address] 7901 Jun, [facility] [place] [facility] [address] [id number] [place] [address] 2297 Jun, [facility] [address] [id number] [place] [address]- 6167 Jun, [facility] [place] [facility] [address] [id number] [place] [address] 3730 Jun, [facility] [place] [facility] [address] [id number] [place] [address] 2761 May, [facility] [place] [facility] [address] [id number] [place] [address] 0583 May, [facility] [place] [facility] [address] [id number] [place] [address]- 1209 May, [facility] [place] [facility] [address] [id number] [place] [address]- 1173 May, [facility] [place] [facility] [address] [id number] [place] [address]- 7464 May, [facility] [place] [facility] [address] [id number] [place] [address]- 4276 Apr, [facility] [place] [facility] [address] [id number] [place] [address]- 7598 Apr, [facility] [place] [facility] [address] [id number] [place] [address]- 7195 Apr, [facility] [place] [facility] [address] [id number] [place] [address]- 3604 Apr, [facility] [place] [facility] [address] [id number] [place] [address]- 9707 Apr, [facility] [place] [facility] [address] [id number] [place] [address]- 3732 Apr, [facility] [place] [facility] [address] [id number][place] [address] 1501 Apr, [facility] [place] [facility] [address] [id number], [place] [address]- 5927 Apr, [facility] [place] [facility] [address] [id number], [place] [address]- 0424 Apr, [facility] [place] [facility] [address] [id number] [place] [address]- 5377 Apr, [facility] [place] [facility] [address] [id number], [place] [address]- 9968 Apr, [facility] [place] [facility] [address] [id number] [address]684 Apr, [facility] [place] [facility] [address] [id number], [place] [address]- 5680 Mar, [facility] [address] [id number] [place] [address]- 5659 Mar, [facility] [place] [facility] [address] [id number] [place] [address] 1990 Feb, [facility] [place] [facility] [address] [id number] [place] [address]- 3791 Jan, [facility] [place] [facility] [address] [id number] [place] [address]- 9597 Jan, [facility] [place] [facility] [address] [id number] [place] [address] 1972 Jan, [facility] [place] [facility] [address] [id number] [place] [address]- 3355 Jan, [facility] [place] [facility] [address] [id number] [place] [address]- 2405 Dec, [facility] [place] [facility] [address] [id number] [place] [address]- 7953 Dec, [facility] [place] [facility] [address] [id number] [place] [address]- 8618 Dec, [facility] [place] [facility] [address] [id number] [place] [address]- 1747 Dec, [facility] [place] [facility] [address] [id number] [place] [address]- 8985 Dec, [facility] [place] [facility] [address] [id number] [place] [address]- 7446 Dec, [facility] [place] [facility] [address] [id number] [place] [address]- 8174 Dec, [facility] [place] [facility] [address] [id number] [place] [address] November, [facility] [place] [facility] [address] [id number] [place] [address]- 1253 November, [facility] [place] [facility] [address] [id number] [place] [address]- 9334 November, [facility] [address] [id number] [place] [address]- 4501 Oct, [facility] [place] [facility] [address] [id number] [place] [address]- 6827 Oct, [facility] [address] [id number] [place] [address]- 9394 Oct, [facility] [place] [facility] [address] [id number] [place] [address]- 8495 Oct, [facility] [address] [id number] [place] [address]- 9500 Oct, [facility] [address] [id number] [place] [address]- 9401 Sep, [facility] [place] [facility] [address] [id number] [place] [address]- 8312 Sep, [facility] [address] [id number] [place] [address]- 6213 Sep, [facility] [address] [id number] [place] [address]- 3892 Sep, [facility] [address] [id number] [place] [address]- 7909 Aug, [facility] [place] [facility] [address] [id number] [place] [address]- 0177 Aug, [facility] [place] [facility] [address] [id number] [place] [address]- 9494 Aug, [facility] [place] [facility] [address] [id number] [place] [address]- 3375 Aug, [facility] [place] [facility] [address] [id number] [place] [address]- 7777 Jul, [facility] [place] [facility] [address] [id number] [place] [address]- 6003 Jul, [facility] [place] [facility] [address] [id number] [place] [address]- 1281 Jun, [facility] [place] [facility] [address] [id number] [place] [address] Jun, [facility] [place] [facility] [address] [facility] [id number] [place] Jun, [facility] [place] [facility] [address] [id number] [place] [address]- 5793 Jun, [facility] [place] [facility] [address] [id number] [place] [address]- 4016 May, [facility] [place] [facility] [address] [id number] [place] [address]- 6937 May, [facility] [place] [facility] [address] [id number] [place] [address]- 1749 May, [facility] [place] [facility] [address] [id number], [place] [address]- 8221 May, [facility] [place] [facility] [address] [id number] [place] [address]- 5929 Apr, [facility] [place] [facility] [address] [facility] [id number] [place] [address]- 4753 Apr, [facility] [place] [facility] [address] [id number], [place] [address]- 0999 31 Apr, 2012 [facility] [place] [facility] [address] [id number], [place] [address]- 4071 31 Apr, 2012 [facility] [place] [facility] [address] [id number] [place] [address]- 3840 30 Apr, 2012 [facility] [place] [facility] [address] [facility] [id number], [place] [address]- 5143 30 Apr, 2012 [facility] [place] [facility] [address] [facility] [id number], [place] [address]- 3947 Apr, [facility] [place] [facility] [address] [id number] [place] [address]- 1847 Apr, [facility] [address] [id number] [place] [address]- 9769 Apr, [facility] [address] [id number] [place] [address]- 6996 Apr, [facility] [address] [id number] [place] [address]- 9186 Feb, [facility] [place] [facility] [address] [id number] [place] [address]- 2484 Feb, [facility] [address] [id number] [place] [address]- 6420 Jan, [facility] [address] [id number] [place] [address]- 3935 Jan, [facility] [address] [id number] [place] [address]- 9790 Jan, [facility] [address] [id number] [place] [address]- 9149 Jan, [facility] [address] [id number] [place] [address]- 3445 Jan, [facility] [address] [id number] [place] [address]- 0517 Jan, [facility] [address] [id number] [place] [address]- 0390 Dec, [facility] [address] [id number] [place] [address]- 3001 November, [facility] [place] [facility] [address] [id number] [place] [address]- 2485 November, [facility] [place] [facility] [address] [id number] [place] [address]- 5336 November, [facility] [address] [id number] [place] [address]- 4293 Sep, [facility] [place] [facility] [address] [id number] [place] [address]- 8693 Sep, [facility] [place] [facility] [address] [id number] [place] [address]- 8374 Sep, [facility] [place] [facility] [address] [id number] [place] [address]- 7799 Sep, [facility] [place] [facility] [address] [id number] [place] [address]- 8139 Sep, [facility] [place] [facility] [address] [id number] [place] [address]- 8885 Sep, [facility] [place] [facility] [address] [id number] [place] [address]- 5619 Aug, [facility] [place] [facility] [address] [id number] [place] [address]- 9656 Aug, [facility] [place] [facility] [address] [id number] [place] [address]- 1047 Aug, [facility] [place] [facility] [address] [id number] [place] [address]- 9641 Jul, [facility] [place] [facility] [address] [id number] [place] [address]- 2402 Jul, [facility] [place] [facility] [address] [id number] [place] [address]- 1809 Jul, [facility] [place] [facility] [address] [id number] [place] [address]- 0303 Jul, [facility] [place] [facility] [address] [id number] [place] [address]- 8338 Jun, [facility] [place] [facility] [address] [id number] [place] [address]- 0066 Jun, [facility] [place] [facility] [address] [id number] [place] [address]- 4686 Jun, [facility] [place] [facility] [address] [id number] [place] [address]- 0999 06 Jun, 2011 [facility] [address] [id number] [place] [address]- 4296 05 Jun, 2011 [facility] [place] [facility] [address] [id number] [place] 9746 Jun, [facility] [place] [facility] [address] [id number] [place] [address]- 4696 May, [facility] [place] [facility] [address] [id number] [place] [address]- 9564 May, [facility] [place] [facility] [address] [id number] [place] [address]- 8741 May, [facility] [place] [facility] [address] [id number] [place] [address]- 8894 Apr, [facility] [address] [id number] [place] [address]- 8018 Jan, [facility] [place] [facility] [address] [id number] [place] [address]- 8727 Jun, [facility] [place] [facility] [address] [id number] [place] [address]- 6427 20 Jun, 2010 [facility] [place] [facility] [address] [id number] [place] [address]- 9509 15 Jun, 2010 [facility] [place] [facility] [address] [id number] [place] [address]- 2936 15 Jun, 2010 [facility] [place] [facility] [address] [id number] [place] [address]- 2542 15 Jun, 2010 [facility] [place] [facility] [address] [id number] [place] [address] 2546 13 Jun, 2010 [facility] [place] [facility] [address] [id number] [place] [address]- 2546 13 Jun, 2010 [facility] [place] [facility] [address] [id number] [place] [address]- 5111 Apr, [facility] [place] [facility] [address] [id number] [place] [address]- 0568 17 Feb, 2010 [facility] [address] [id number] [place] [address]- 1046 15 Aug, 2009 [facility] [address] [id number] [place] [address] 2546 18 Jul, 2009 [facility] [address] [id number] [place] [address] 2546 11 Jul, 2009 [facility] [address] [id number] [place] [address] 2540 29 Jun, 2009 [facility] [address] [id number] [place] [address]- 0906 Jun, [facility] [address] [id number] [place] [address]- 6371 Jun, [facility] [address] [id number] [place] [address]- 5149 Jun, [facility] [address] [id number] [place] [address]- 1837 16 Jun, 2009 [facility] [address] [id number] [place] [address]- 1026 Jun, [facility] [address] [facility] [id number] [place] [address]- 3654 Jun, [facility] [address] [id number] [place] [address] 2540 30 May, 2009 [facility] [address] [id number] [place] [address] 2542 27 May, 2009 [facility] [place] [facility] [address] [id number] [place] [address] 2546 23 May, 2009 [facility] [place] [facility] [address] [id number] [place] [address] 2545 18 May, 2009 [facility] [place] [facility] [address] [id number] [place] [address]- 7726 May, [facility] [address] [facility] [id number][place] 8414 May, [facility] [address] [id number] 2933 May, [facility] [address] [facility] [id number], [place] [address]- 6792 Apr, [facility] [id number], [place] [address]- 7908 Apr, [facility] [address] [facility] [id number], [place] [address]- 7588 Jan, [facility] [address] [id number] 7626 Oct, IMMUNIZATIONS No Known Immunizations SOCIAL HISTORY Never Assessed REASON FOR VISIT BH intake Jessica PLAN OF CARE Activity Details Follow Up 4 Weeks Reason: VITAL SIGNS Height 62 in 2018-04-12 Weight 176.9 lbs 2018-04-12 Heart Rate 64 bpm 2018-04-12 Respiratory Rate 20 2018-04-12 BMI 32.35 kg/m2 2018-04-12 Blood pressure systolic 116 mmHg 2018-04-12 Blood pressure diastolic 58 mmHg 2018-04-12 MEDICATIONS Medication Instructions Dosage Frequency Start Date End Date Duration Status Zontivity 2.08 MG Orally Once a day 1 tablet 24h Active Alcohol Swabs 70 % Wipe area prior to injection or testing blood sugar Oct, Active BD Pen Needle Mini U/F 31G X 5 MM subcutaneously 4 times a day as directed 6h Dec, 30 days Active Crestor 10 MG Orally Once a day 1 tablet 24h Active Furosemide 40 MG TAKE 1 TABLET BY MOUTH DAILY. 30 Active Cephalexin 500 MG Orally every 12 hrs 1 capsule 12h Active Levothyroxine Sodium 25 MCG Orally Once a day 1 tablet on an empty stomach in the morning 24h 30 Active Tresiba FlexTouch 200 UNIT/ML Subcutaneous once a day Inject 14 unitsin AM rather than PM 24h Jan, 90 Active Clopidogrel Bisulfate 75 MG Orally Once a day 1 tablet 24h 90 Active Trutest Blood Glucose Test Strip N/A subcutaneously 6 times a day. E11.40 test blood sugar Dec, Active Zoloft 25 MG Orally at night 1 tablet Mar, 30 day(s) Active Fenofibrate 48 MG Orally Once a day 1 tablet 24h Active Aspirin 81 MG Orally Once a day 1 tablet 24h Active Tramadol HCl 50 MG Orally 2 times a day 1 tablet as needed 12h 28 days Active Carvedilol 3.125 MG Orally 2 times a day 1 tablet 12h Active Namzaric 7-10 MG Orally Once a day 1 capsule in the evening 24h Feb, Active RESULTS No Results PROCEDURES Procedure Date Ordered Result Body Site [facility] VISIT ESTABLISHED PATIENT Apr 12, 2018 INSTRUCTIONS MEDICATIONS ADMINISTERED No Known [...]
--- OUTSIDE RECORDS SUMMARY | 2018-11-09 12:52 | XMS REPORT ---
Author Author PRABHA HILL [facility] Address [address] [place] [address] Care Team Providers Care Pile Driving Supervisor Name Role Phone PRABHA HILL Unavailable PROBLEMS Type Condition ICD9-CM Code MOY67-ZA Code Onset Dates Condition Status SNOMED Code Problem Hypoglycemia E16.2 Active 228167980 Problem Hallucinations R44.3 Active 2923252 Problem Unsteady gait R26.81 Active 11500113 Problem 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 Active [id number] Problem Dysuria R30.0 Active 51674259 Problem Anxiety F41.9 Active 02689646 Problem Dementia in other diseases classified elsewhere without behavioral disturbance F02.80 Active 352590829 Problem Other frontotemporal dementia G31.09 Active 948778937 Problem Parkinsons disease G20 Active 45829481 Problem Episodic cluster headache, not intractable G44.019 Active 891255042 Problem Neurogenic orthostatic hypotension G90.3 Active 168167368 Problem Mixed stress and urge urinary incontinence N39.46 Active 838599420 Problem 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 Active 418389961 Problem Essential hypertension I10 Active 86477335 Problem Type 2 diabetes mellitus with unspecified complications E11.8 Active 77079641 Problem PVD (peripheral vascular disease) I73.9 Active 899704271 Problem Dysthymia F34.1 Active 92878887 Problem Polydipsia R63.1 Active 97645305 Problem Coronary artery disease involving [place] coronary artery of [place] heart without angina pectoris I25.10 Active 5699514736876 Problem Hypothyroidism (acquired) E03.9 Active 049329812 Problem Hyperlipemia, mixed E78.2 Active 425133881 Problem Dementia with Lewy bodies G31.83 Active 088679565 Problem Neuropathy G62.9 Active 318791246 Problem Hypernatremia E87.0 Active 10714604 ALLERGIES Substance Reaction Event Type Date Status Sulfamethoxazole-Trimethoprim Unknown Drug Allergy Mar, Active Protamine Sulfate Unknown Drug Allergy Mar, Active Penicillin V Potassium Unknown Drug Allergy Mar, Active Cipro lowers blood sugar Drug Allergy Mar, Active ENCOUNTERS Encounter Location Date Diagnosis [place] [id number] [place] [address] 32960- 9190 Apr, [place] [address] 22100- 0589 Mar, Left shoulder pain M25.512 [place] [address] 54488- 4614 Mar, [place] [address] 260754- 6038 Mar, Hyperlipemia, mixed E78.2 ; Essential hypertension I10 and Coronary artery disease involving [place] coronary artery of [place] heart without angina pectoris I25.10 [place] [address] 21826- 4193 Mar, Type 2 diabetes mellitus with unspecified complications E11.8 [place] [address] 88998- 7139 17 Mar, 2018 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 [place] [address] 05682- 5010 Mar, [place] [id number] [place] [address] 16490- 1713 Mar, [place] [id number] [place] [address] 62134- 5625 Mar, [place] [id number] [place] [address] 88495- 9799 Mar, [place] [address] 10015- 5840 Mar, Cellulitis of left lower extremity L03.116 and Petechial rash R23.3 [place] [address] 04297- 9377 Feb, Left shoulder pain M25.512 [facility] [id number] [place] [address] 93907- 5344 Feb, Left shoulder pain M25.512 [facility] [id number] [place] [address] 12898- 8279 Feb, 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 [facility] [address] 42111- 4972 Jan, Left shoulder pain M25.512 [facility] [id number] [place] [address] 60735- 9520 Dec, Parkinsons disease G20 [facility] [address] 32744- 6973 Dec, Left shoulder pain M25.512 [facility] [address] 24656- 4268 Dec, Type 2 diabetes mellitus with unspecified complications E11.8 ; Anxiety F41.9 ; Therapeutic drug monitoring Z51.81 and Analgesic use Z79.899 [facility] [address] 23008- 3282 November, [facility] [id number] [place] [address] 18730- 1194 November, [facility] [id number] [place] [address] 41455- 4001 November, Left shoulder pain M25.512 [facility] [id number] [place] [address] 40773- 1213 Oct, [facility] [address] 48532 -3377 Oct, [facility] [id number] [place] [address] 13691- 2246 Oct, Parkinsons disease G20 [facility] [address] 66467 -7670 Oct, Acute cystitis without hematuria N30.00 and Viral upper respiratory tract infection J06.9 [place] [id number] [place] [address] 95322- 4707 Oct, [place] [id number] [place] [address] 49039- 6869 Oct, Type 2 diabetes mellitus with unspecified complications E11.8 [place] [id number] [place] [address] 80068- 9231 Oct, Left shoulder pain M25.512 [place] [id number] [place] [address] 98089- 6485 Oct, Type 2 diabetes mellitus with unspecified complications E11.8 ; Dysuria R30.0 and Neurogenic orthostatic hypotension G90.3 [place] [id number] [place] [address] 63746- 4332 Sep, Left shoulder pain M25.512 [place] [id number] [place] [address] 14958- 4850 Sep, Medicare annual wellness visit, initial Z00.00 ; Parkinsons disease G20 ; Type 2 diabetes mellitus with unspecified complications E11.8 ; Essential hypertension I10 ; Coronary artery disease involving [place] coronary artery of [place] heart without angina pectoris I25.10 ; Hypothyroidism (acquired ) E03.9 ; PVD (peripheral vascular disease) I73.9 ; Dysthymia F34.1 ; Hyperlipemia, mixed E78.2 ; Neuropathy G62.9 ; Encounter for immunization Z23 ; Encounter for other screening for malignant neoplasm of breast Z12.39 and Mixed stress and urge urinary incontinence N39.46 [place] [id number] [place] [address] 33414- 4029 Aug, Parkinsons disease G20 [place] [id number] [place] [address] 11222- 4069 Aug, Type 2 diabetes mellitus with unspecified complications E11.8 ; Left shoulder pain M25.512 and Hypotensive episode I95.9 [place] [id number] [place] [address] 29114- 5437 09 Aug, 2017 Coronary artery disease involving [place] coronary artery of [place] heart without angina pectoris I25.10 [place] [id number] [place] [address] 02474- 3819 07 Aug, 2017 Type 2 diabetes mellitus with unspecified complications E11.8 [place] [address] 15153- 4897 Jul, Callus of foot L84 [place] [address] 12006- 4373 Jul, [place] [address] 16411- 0438 Jul, Callus of foot L84 ; Episodic cluster headache, not intractable G44.019 ; Type 2 diabetes mellitus with unspecified complications E11.8 and Parkinsons disease G20 [place] [id number] [place] [address] 89606- 5514 Jul, [place] [address] 83699- 3571 Jul, [place] [address] 54351- 6627 Jun, Type 2 diabetes mellitus with unspecified complications E11.8 ; Unsteady gait R26.81 ; Forgetfulness R68.89 and Hallucinations R44.3 [place] [id number] [place] [address] 20269- 4566 Jun, [place] [address] 56543- 1018 Jun, Left shoulder pain M25.512 [place] [address] 18197- 4080 May, Hypernatremia E87.0 and Polydipsia R63.1 [place] [address] 47262- 0173 May, Hypernatremia E87.0 and Polydipsia R63.1 [facility] [id number] [place] [address] 56139- 7371 May, Hypoglycemia E16.2 ; Dysuria R30.0 ; Unsteadiness on feet R26.81 ; Forgetfulness R68.89 ; Type 2 diabetes mellitus with unspecified complications E11.8 and Yeast infection involving the vagina and surrounding area B37.3 [facility] [address] 04673- 7399 May, Acute cystitis without hematuria N30.00 [facility] [address] 20573 -1664 Apr, Dysuria R30.0 and Acute cystitis without hematuria N30.00 [facility] [address] 24418- 9872 Apr, Hypernatremia E87.0 and Polydipsia R63.1 [place] [id number] [place] [address] 62303- 0357 Apr, Vertigo R42 and Type 2 diabetes mellitus with unspecified complications E11.8 [place] [id number] [place] [address] 24119- 1707 Mar, [place] [id number] [place] [address] 48434- 7853 19 Mar, 2017 Left shoulder pain M25.512 [facility] [id number] [place] [address] 04354- 2032 13 Mar, 2017 Vertigo R42 [place] [address] 02268- 1805 12 Mar, 2017 Polydipsia R63.1 [place] [id number] [place] [address] 25255- 0754 Mar, Polydipsia R63.1 [place] [address] 00588- 7378 11 Mar, 2017 Vertigo R42 [place] [address] 39134- 4953 07 Mar, 2017 Type 2 diabetes mellitus with unspecified complications E11.8 ; Vertigo R42 ; Polydipsia R63.1 ; Polyuria R35.8 ; Hypothyroidism ( acquired) E03.9 ; Abnormal urinalysis R82.90 and Dysthymia F34.1 [place] [address] 39217- 2601 05 Mar, 2017 Coronary artery disease of [place] artery with stable angina pectoris, unspecified whether [place] or transplanted heart I25.118 ; Systolic CHF, chronic I50.22 ; Hyperlipemia, mixed E78.2 and Essential hypertension I10 [facility] [address] [id number] Feb, Dental caries K02.9 [place] [address] 80938- 5917 Feb, Type 2 diabetes mellitus with diabetic neuropathy, unspecified E11.40 [place] [address] 20495- 5731 23 Dec, 2016 Left shoulder pain M25.512 [place] [address] 74781- 4974 16 Dec, 2016 [place] [address] 78966- 1755 15 Dec, 2016 Type 2 diabetes mellitus with unspecified complications E11.8 [facility] [address] 075869096 15 Dec, 2016 Dental examination Z01.20 [place] [address] 28290- 3958 08 Dec, 2016 Type 2 diabetes mellitus with diabetic neuropathy, unspecified E11.40 [place] [address] 33395- 9095 07 Dec, 2016 [place] [id number] [place] [address] 28057- 4702 Dec, Type 2 diabetes mellitus with diabetic neuropathy, unspecified E11.40 [place] [id number] [place] [address] 05864- 3547 November, Left shoulder pain M25.512 [place] [id number] [place] [address] 41448- 4494 November, [place] [address] 74160- 4760 November, Type 2 diabetes mellitus with unspecified complications E11.8 and Dysuria R30.0 [place] [address] 54259- 7943 Oct, Left shoulder pain M25.512 [place] [id number] [place] [address] 37780- 9335 Sep, Left shoulder pain M25.512 [place] [id number] [place] [address] 49608- 0947 Sep, Pre-op testing Z01.818 [place] [id number] [place] [address] 33213- 4498 Sep, Pre-op testing Z01.818 [place] [id number] [place] [address] 58338- 6187 Sep, Pre-op testing Z01.818 [place] [id number] [place] [address] 99616- 9497 Sep, Pre-op testing Z01.818 and Mouth pain K13.79 [place] [id number] [place] [address] 35018- 1277 Sep, Left shoulder pain M25.512 [place] [id number] [place] [address] 43601- 0439 Aug, Other eczema L30.8 [place] [address] [place] [id number] [place] [address]- 0273 06 Aug, 2016 PVD (peripheral vascular disease) I73.9 ; Type 2 diabetes mellitus with unspecified complications E11.8 ; Acute cystitis with hematuria N30.01 ; Other eczema L30.8 ; Dysuria R30.0 and Left shoulder pain M25.512 [facility] [address] 18216 -2287 Jul, Otalgia of right ear H92.01 and Blood in ear canal, right H92.21 [place] [address] 39864- 8568 Jul, Arthralgia, unspecified joint M25.50 ; PVD (peripheral vascular disease) I73.9 and Neuropathy G62.9 [place] [address] 65929- 5178 Jul, [place] [address] 75569- 2219 Jun, Medicare annual wellness visit, initial Z00.00 ; Cervicalgia M54.2 ; Radiculopathy of cervical region M54.12 ; Encounter for immunization Z23 ; Type 2 diabetes mellitus with unspecified complications E11.8 and Essential hypertension I10 [place] [id number] [place] [address] 71593- 9066 Jun, [place] [address] 84282- 5596 May, Hypothyroidism (acquired) E03.9 [place] [address] 36699- 2146 10 May, 2016 Dysuria R30.0 ; Essential hypertension I10 ; Hypothyroidism (acquired) E03.9 and PVD (peripheral vascular disease) I73.9 [facility] [id number] [place] [address] 95412 -5995 03 May, 2016 Burning with urination R30.0 and Acute cystitis with hematuria N30.01 [place] [address] [address]- 4271 May, Dental examination Z01.20 [facility] [id number] [place] [address] 94870- 6395 May, Hypothyroidism (acquired) E03.9 [facility] [address] [address]- 5357 Feb, [facility] [id number] [place] [address] 92000- 7545 Feb, 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 ; PVD ( peripheral vascular disease) I73.9 ; Type 2 diabetes mellitus with unspecified complications E11.8 and Essential hypertension I10 [facility] [id number] [place] [address] 39223- 2866 Jan, [place] [id number] [place] [address] 42115- 5450 Jan, Hypothyroidism (acquired) E03.9 [facility] [id number] [place] [address] 49968 2549 Jan, [facility] [id number] [place] [address] 58974- 9840 Jan, [facility] [id number] [place] [address] 46998- 5194 Jan, Type 2 diabetes mellitus with unspecified complications E11.8 ; 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 and Essential ( primary) hypertension I10 [facility] [id number] [place] [address] 19443 2543 Jan, Type 2 diabetes mellitus with unspecified complications E11.8 ; 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 ; Essential hypertension I10 and PVD (peripheral vascular disease) I73.9 [facility] [address] [address]- 3426 Jan, [facility] [id number] [place] [address] 27582- 8725 Jan, [facility] [id number] [place] [address] 53800- 8220 Jan, [place] [id number] [place] [address] 28065- 1737 Jan, Weakness R53.1 ; Fatigue, unspecified type R53.83 ; PVD ( peripheral vascular disease) I73.9 ; Acute osteomyelitis of other site M86.18 ; Type 2 diabetes mellitus with diabetic neuropathy, unspecified E11.40 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 [place] [id number] [place] [address] 97869- 6622 Dec, [place] [id number] [place] [address] 77187- 9670 Dec, Type 2 diabetes mellitus with unspecified complications E11.8 [place] [id number] [place] [address] 34792- 2319 Dec, [place] [id number] [place] [address] 42492- 4674 Dec, Pressure ulcer, unspecified pressure ulcer stage L89.90 and Type 2 diabetes mellitus with unspecified complications E11.8 [facility] [id number] [place] [address] 09035 -9941 Dec, Toe infection L08.9 [place] [id number] [place] [address] 52473- 5343 November, Dental caries K02.9 [place] [id number] [place] [address] 25054- 5722 November, [place] [id number] [place] [address] 65411- 2279 November, Dental examination Z01.20 [place] [id number] [place] [address] 14682- 5478 Sep, Lipoma of torso D17.1 and Thoracic neuritis M54.14 [facility] [address], [place] [address]- 4417 Sep, [facility] [id number] [place] [address] 49036- 6026 Aug, [facility] [id number] [place] [address] 62890 -4478 Jul, Dysuria R30.0 and UTI (urinary tract infection) N39.0 [facility] [id number] [place] [address] 02089- 3862 Jun, Left shoulder pain M25.512 [place] [id number] [place] [address] 01971- 9528 May, Shoulder pain, left M25.512 [place] [id number] [place] [address] 90536- 6925 May, [facility] [id number] [place] [address] 33370- 1000 May, [facility] [id number] [place] [address] 88244- 9805 May, Left shoulder pain M25.512 [facility] [id number] [place] [address] 01634- 9368 May, [place] [id number] [place] [address] 86594- 4535 Apr, Encounter for immunization Z23 [facility] [id number] [place] [address] 24130- 7272 Apr, Urinary tract infection, site not specified N39.0 ; Hypotension, unspecified I95.9 ; Type 2 diabetes mellitus with unspecified complications E11.8 and Generalized edema R60.1 [place] [address] [place] [address] 39396- 8421 Apr, [place] [id number] [place] [address] 21865- 2792 Mar, Diabetes with other specified manifestations, type II or unspecified type, not stated as uncontrolled 250.80 [facility] [id number] [place] [address] 33311- 4377 Feb, Gout 274.9 and Diabetes 250.00 [facility] [id number] [place] [address] 43378- 8306 Jan, [facility] [id number] [place] [address] 95775- 6900 November, CAD (coronary artery disease) 414.00 and CHF (congestive heart failure) 428.0 [facility] [id number] [place] [address] 40567- 2074 Oct, [facility] [id number] [place] [address] 44622- 8354 Oct, [facility] [id number] [place] [address] 83987- 6644 Oct, [facility] [address] [address]- 9462 Sep, [facility] [id number] [place] [address] 48556- 2901 Sep, [facility] [address], [place] [address]- 1418 Sep, [facility] [address], [place] [address]- 5836 Sep, [facility] [address], [place] [address]- 4101 Aug, [facility] [address], [place] [address]- 8264 Aug, [facility] [address] 3300 Aug, [facility] [address], [place] [address]- 4319 Aug, [facility] [place] [facility] [address] [id number] [place] [address]- 3121 Aug, [facility] [place] [facility] [address] [id number] [place] [address]- 3040 Aug, [facility] [place] [facility] [address] [id number] [place] [address]- 3065 Aug, [facility] [place] [facility] [address] [id number] [place] [address]- 7240 Aug, [facility] [place] [facility] [address] [id number] [place] [address]- 0672 Jul, [facility] [place] [facility] [address] [id number] [place] [address]- 9671 Jul, [facility] [place] [facility] [address] [id number] [place] [address]- 9815 Jul, [facility] [place] [facility] [address] [id number] [place] [address]- 7537 Jul, [facility] [place] [facility] [address] [id number] [place] [address]- 5851 Jul, [facility] [place] [facility] [address] [id number] [place] [address]- 7874 Jul, [facility] [place] [facility] [address] [id number] [place] [address]- 3110 Jul, [facility] [place] [facility] [address] [id number], [place] [address]- 5593 Jul, [facility] [place] [facility] [address] [id number] [place] [address]- 5114 Jul, [facility] [place] [facility] [address] [id number] [place] [address]- 5182 Jul, [facility] [place] [facility] [address] [id number] [place] [address]- 3203 Jun, [facility] [place] [facility] [address] [id number] [place] [address]- 2646 Jun, [facility] [place] [facility] [address] [id number] [place] [address]- 0270 Jun, [facility] [place] [facility] [address] [id number] [place] [address]- 5181 Jun, [facility] [place] [facility] [address] [id number] [place] [address]- 8026 Jun, [facility] [place] [facility] [address] [id number] [place] [address]- 2883 Jun, [facility] [place] [facility] [address] [id number] [place] [address]- 3708 Jun, [facility] [place] [facility] [address] [id number] [place] [address]- 9334 Jun, [facility] [place] [facility] [address] [id number] [place] [address]- 4781 Jun, [facility] [place] [facility] [address] [id number] [place] [address]- 0395 Jun, [facility] [place] [facility] [address] [id number] [place] [address]- 6325 May, [facility] [place] [facility] [address] [id number] [place] [address]- 0576 May, [facility] [place] [facility] [address] [id number] [place] [address]- [address] 18 Mar, 2014 [facility] [place] [facility] [address] [id number] [place] [address] 18 Mar, 2014 [facility] [place] [facility] [address] [id number] [place] [address] 10 Mar, 2014 [facility] [place] [facility] [address] [id number] [place] [address] 10 Mar, 2014 [facility] [place] [facility] [address] [id number] [place] [address] Feb, [facility] [place] [facility] [address] [id number] [place] [address] Feb, [facility] [place] [facility] [address] [id number] [place] [address] Feb, [facility] [place] [facility] [address] [id number] [place] [address] Jan, [facility] [place] [facility] [address] [id number] [place] [address] Jan, [facility] [place] [facility] [address] [id number] [place] [address] Jan, [facility] [place] [facility] [address] [id number] [place] [address] Jan, [facility] [place] [facility] [address] [id number] [place] [address] Jan, [facility] [place] [facility] [address] [id number] [place] [address] Jan, [facility] [place] [facility] [address] [id number] [place] [address] Jan, [facility] [place] [facility] [address] [id number] [place] [address] Jan[facility] [facility] [address] [id number] [place] [address] Jan, [facility] [place] [facility] [address] [id number] [place] [address] Jan, [facility] [place] [facility] [address] [id number] [place] [address] Dec, [facility] [place] [facility] [address] [id number] [place] [address] 1443 Dec, [facility] [place] [facility] [address] [id number] [place] [address]90 November, [facility] [place] [facility] [address] [id number] [place] [address]- 1766 November, [facility] [place] [facility] [address] [id number] [place] [address] 3710 November, [facility] [place] [facility] [address] [id number] [place] [address] November, [facility] [place] [facility] [address] [id number] [place] [address]- 1507 November, [facility] [place] [facility] [address] [id number] [place] [address]- 5089 November, [facility] [place] [facility] [address] [id number] [place] [address]- 2017 November, [facility] [place] [facility] [address] [id number] [place] [address] 1243 Oct, [facility] [place] [facility] [address] [id number] [place] [address] 4861 Oct, [facility] [address] [id number] [place] [address]- 9067 Sep, [facility] [place] [facility] [address] [id number] [place] [address]- 8911 Sep, [facility] [place] [facility] [address] [id number] [place] [address]- 2558 Sep, [facility] [place] [facility] [address] [id number] [place] [address]- 6586 Sep, [facility] [place] [facility] [address] [id number] [place] [address]- 3509 Sep, [facility] [place] [facility] [address] [id number] [place] [address]- 6567 Sep, [facility] [place] [facility] [address] [id number] [place] [address]- 8412 Sep, [facility] [place] [facility] [address] [id number] [place] [address]- 5979 Sep, [facility] [address] [id number] [place] [address]- 6104 Sep, [facility] [address] [id number] [place] [address]- 8419 Sep, [facility] [address] [id number] [place] [address]- 0246 Aug, [facility] [address] [id number] [place] [address]- 3356 Aug, [facility] [address] [id number] [place] [address]- 4882 Jul, [facility] [address] [id number] [place] [address]- 7961 Jul, [facility] [address] [id number] [place] [address]- 0906 Jul, [facility] [address] [id number] [place] [address] 5804 Jul, [facility] [address] [id number] [place] [address]- 6489 Jul, [facility] [address] [id number] [place] [address] 3150 Jul, [facility] [address] [id number] [place] [address]- 5825 Jun, [facility] [address] [id number] [place] [address]- 1136 Jun, [facility] [address] [id number] [place] [address]- 3657 Jun, [facility] [address] [id number] [place] [address]- 5359 Jun, [facility] [address] [id number] [place] [address]- 5597 May, [facility] [address] [id number] [place] [address]- 3334 May, [facility] [address] [id number] [place] [address]- 4937 May, [facility] [address] [id number] [place] [address]- 2846 May, [facility] [address] [id number] [place] [address]- 0398 May, [facility] [address] [id number] [place] [address]- 0364 Apr, [facility] [address] [id number] [place] [address]- 9306 Apr, [facility] [address] [id number] [place] [address]- 6014 Apr, [facility] [address] [id number] [place] [address]- 0206 Apr, [facility] [address] [id number], [place] [address]- 5967 Apr, [facility] [address] [id number] [place] [address]- 4904 Apr, [facility] [address] [id number], [place] [address]- 3[address] Apr, [facility] [address] [id number], [place] [address]- 6212 Apr, [facility] [address] [id number], [place] [address]- 7333 Apr, [facility] [address] [id number], [place] [address]- 0165 Apr, [facility] [address] [id number], [place] [address]- 6393 Apr, [facility] [address] [id number], [place] [address]- 9611 Apr, [facility] [address] [id number], [place] [address]- 9483 Mar, [facility] [address] [id number] [place] [address]- 6468 Mar, [facility] [address] [id number] [place] [address]- 3163 Feb, [facility] [address] [id number] [place] [address]- 9792 Jan, [facility] [address] [id number] [place] [address]- 7286 Jan, [facility] [address] [id number] [place] [address]- 7710 Jan, [facility] [address] [id number] [place] [address]- 5652 Jan, [facility] [address] [id number] [place] [address]- 8641 Dec, [facility] [address] [id number] [place] [address]- 4856 Dec, [facility] [address] [id number] [place] [address]- 4133 Dec, [facility] [address] [id number] [place] [address]- 5114 Dec, [facility] [address] [id number] [place] [address]- 5749 Dec, [facility] [address] [id number] [place] [address]- 9400 Dec, [facility] [address] [id number] [place] [address]- 6955 Dec, [facility] [address] [id number] [place] [address]- 3497 November, [facility] [address] [id number] [place] [address]- 8854 November, [facility] [address] [id number] [place] [address]- 4954 November, [facility] [address] [id number] [place] [address]- 0716 Oct, [facility] [address] [id number] [place] [address]- 4666 Oct, [facility] [address] [id number] [place] [address]- 3179 Oct, [facility] [address] [id number] [place] [address]- 4105 Oct, [facility] [address] [id number] [place] [address]- 8985 Oct, [facility] [address] [id number] [place] [address]- 2731 Sep, [facility] [address] [id number] [place] [address]- 9369 Sep, [facility] [address] [id number] [place] [address]- 2111 Sep, [facility] [address] [id number] [place] [address]- 4789 Sep, [facility] [address] [id number] [place] [address]- 0031 Aug, [facility] [address] [id number] [place] [address]- 4588 Aug, [facility] [address] [id number] [place] [address]- 0671 Aug, [facility] [address] [id number] [place] [address]- 2765 Aug, [facility] [address] [id number] [place] [address]- 2751 Jul, [facility] [address] [id number] [place] [address]- 7003 Jul, [facility] [address] [id number] [place] [address]- 7017 Jun, [facility] [address] [id number] [place] Jun, [facility] [address] [id number] [place] [address]- 1056 Jun, [facility] [address] [id number] [place] [address]- 5971 Jun, [facility] [address] [id number] [place] [address]- 5270 May, [facility] [address] [id number] [place] [address]- 1129 May, [facility] [address] [id number] [place] [address]- 0432 May, [facility] [address] [id number] [place] [address]- 1756 May, [facility] [address] [id number] [place] [address]- 2416 Apr, [facility] [address] [id number] [place] [address]- 2281 Apr, [facility] [address] [id number], [place] [address]- 0027 31 Apr, 2012 [facility] [address] [id number], [place] [address]- 2568 31 Apr, 2012 [facility] [address] [id number] [place] [address]- 0298 30 Apr, 2012 [facility] [address] [id number] [place] [address]- 7415 30 Apr, 2012 [facility] [address] [id number] [place] [address]- 5714 Apr, [facility] [address] [id number] [place] [address]- 0826 Apr, [facility] [address] [id number] [place] [address]- 5889 Apr, [facility] [address] [id number] [place] [address]- 2546 Apr, [facility] [address] [id number] [place] [address]- 7936 Feb, [facility] [address] [id number] [place] [address]- 2784 Feb, [facility] [address] [id number] [place] [address]- 0456 Jan, [facility] [address] [id number] [place] [address]- 9126 Jan, [facility] [address] [id number] [place] [address]- 7954 Jan, [facility] [address] [id number] [place] [address]- 6079 Jan, [facility] [address] [id number] [place] [address]- 8278 Jan, [facility] [address] [id number] [place] [address]- 0363 Jan, [facility] [address] [id number] [place] [address]- 2546 Dec, [facility] [address] [id number] [place] [address]- 2193 November, [facility] [address] [id number] [place] [address]- 0626 November, [facility] [address] [id number] [place] [address]- 2546 November, [facility] [address] [id number] [place] [address]- 4886 Sep, [facility] [address] [id number] [place] [address]- 3840 Sep, [facility] [address] [id number] [place] [address]- 8570 Sep, [facility] [address] [id number] [place] [address]- 9127 Sep, [facility] [address] [id number] [place] [address]- 6631 Sep, [facility] [address] [id number] [place] [address]- 8507 Sep, [facility] [address] [id number] [place] [address]- 6200 13 Aug, 2011 [facility] [address] [id number] [place] [address]- 0485 Aug, [facility] [address] [id number] [place] [address]- 9219 Aug, [facility] [address] [id number] [place] [address]- 6236 Jul, [facility] [address] [id number] [place] [address]- 2086 Jul, [facility] [address] [id number] [place] [address]- 9275 Jul, [facility] [address] [id number], [place] [address]- 7992 Jul, [facility] [address] [id number] [place] [address]- 0063 Jun, [facility] [address] [id number] [place] [address]- 9286 Jun, [facility] [address] [id number] [place] [address]- 8446 Jun, [facility] [address] [id number] [place] [address]- 5909 06 Jun, 2011 [facility] [address] [id number] [place] [address]- 9146 05 Jun, 2011 [facility] [address] [id number] [place] [address]- 2996 Jun, [facility] [address] [id number] [place] [address]- 8786 May, [facility] [address] [id number] [place] [address] 2546 May, [facility] [address] [id number] [place] [address]- 3082 May, [facility] [address] [id number] [place] [address]- 6560 Apr, [facility] [address] [id number] [place] [address]- 4904 Jan, [facility] [address] [id number] [place] [address]- 2584 Jun, [facility] [address] [id number] [place] [address]- 3126 20 Jun, 2010 [facility] [address] [id number] [place] [address]- 7106 15 Jun, 2010 [facility] [facility] [address] [id number] [place] [address] 2546 15 Jun, 2010 [facility] [place] [facility] [address] [id number] [place] [address] 2546 15 Jun, 2010 [facility] [place] [address] [id number] [place] [address] 2546 13 Jun, 2010 [facility] [place] [facility] [address] [id number] [place] [address]- 2546 13 Jun, 2010 [facility] [place] [address] [id number] [place] [address] 2548 Apr, [facility] [place] [facility] [address] [id number] [place] [address]- 2876 Feb, [facility] [address] [id number] [place] [address]- 8196 15 Aug, 2009 [facility] [address] [id number] [place] [address]- 2471 18 Jul, 2009 [facility] [id number] [place] [address], [place] [address]- 2796 Jul, [facility] [address] [id number] [place] [address]- 4771 29 Jun, 2009 [facility] [address] [id number] [place] [address]- 3942 Jun, [facility] [address] [id number] [place] [address]- 5263 Jun, [facility] [address] [id number] [place] [address]- 3618 Jun, [facility] [address] [id number] [place] [address]- 8978 16 Jun, 2009 [facility] [address] [facility] [id number] [place] [address]- 0196 Jun, [facility] [address] [facility] [id number] [place] [address]- 2741 Jun, [facility] [address] [id number], [place] [address]- 3020 30 May, 2009 [facility] [address] [id number] [place] [address] 2548 27 May, 2009 [facility] [place] [facility] [address] [id number] [place] [address] 2543 23 May, 2009 [facility] [facility] [address] [id number] [place] [address]- 6208 18 May, 2009 [facility] [address] [id number], [place] [address]- 7556 May, [facility] [address] [facility] [id number], [place] [address]- 9526 May, [facility] [address] [facility] [id number], [place] [address] 2546 May, [facility] [address] [facility] [id number], [place] [address] 2546 Apr, [facility] [address] [facility] [id number], [place] [address]- 7866 Apr, [facility] [address] [facility] [id number], [place] [address]- 0116 Jan, [facility] [address] [facility] [id number], [place] [address]- 5806 Oct, IMMUNIZATIONS No Known Immunizations SOCIAL HISTORY Never Assessed REASON FOR VISIT Rash Pt has spots on arm and leg [employer] PLAN OF CARE Activity Details Follow Up prn Reason: VITAL SIGNS Height 62 in 2018-03-31 Weight 176 lbs 2018-03-31 Temperature 98.7 degrees Fahrenheit 2018-03-31 Heart Rate 68 bpm 2018-03-31 Respiratory Rate 18 2018-03-31 BMI 32.19 kg/m2 2018-03-31 Blood pressure systolic 102 mmHg 2018-03-31 Blood pressure diastolic 60 mmHg 2018-03-31 MEDICATIONS Medication Instructions Dosage Frequency Start Date End Date Duration Status Carvedilol 3.125 MG Orally 2 times a day 1 tablet 12h Active BD Pen Needle Mini U/F 31G X 5 MM subcutaneously 4 times a day as directed 6h Dec, 30 days Active Aspirin 81 MG Orally Once a day 1 tablet 24h Active Keflex 500 mg Orally every 12 hrs 1 capsule 12h Mar, Mar, 07 days Active Fish Oil 1000 MG Orally 2 times a day 1 capsule 12h Active Namzaric 7-10 MG Orally Once a day 1 capsule in the evening 24h Feb, 30 day(s) Active Furosemide 40 MG TAKE 1 TABLET BY MOUTH DAILY. 30 Active Citalopram Hydrobromide 20 mg Orally Once a day 1 1/2 tablet 24h 30 days Active Trutest Blood Glucose Test Strip N/A subcutaneously 6 times a day. E11.40 test blood sugar Dec, Active Fenofibrate 48 MG Orally Once a day 1 tablet 24h Active Vitamin D-3 Active Levothyroxine Sodium 25 MCG Orally Once a day 1 tablet on an empty stomach in the morning 24h 30 Active Tresiba FlexTouch 200 UNIT/ML Subcutaneous once a day Inject 14 unitsin AM rather than PM 24h Jan, 90 Active Zontivity 2.08 MG Orally Once a day 1 tablet 24h Active Crestor 10 MG Orally Once a day 1 tablet 24h Active Alcohol Swabs 70 % Wipe area prior to injection or testing blood sugar Oct, Active Tramadol HCl 50 MG Orally 2 times a day 1 tablet as needed 12h 28 days Active Clopidogrel Bisulfate 75 MG Orally Once a day 1 tablet 24h 90 Active RESULTS No Results PROCEDURES Procedure Date Ordered Result Body [facility] Mar 31, 2018 VENIPUNCT, ROUTINE* Mar 31, 2018 [facility] VISIT ESTABLISHED PATIENT Mar 31, 2018 INSTRUCTIONS MEDICATIONS ADMINISTERED No Known Medications [...]
--- OUTSIDE RECORDS SUMMARY | 2018-11-09 12:53 | XMS REPORT ---
Author Author PRABHA HILL [facility] [address] Address [address] [place] [address] Care Team Providers Care Slasher Operator Name Role Phone PRABHA HILL Unavailable PROBLEMS Type Condition ICD9-CM Code [id number] Code Onset Dates Condition Status SNOMED Code Problem Hypoglycemia E16.2 Active 509544190 Problem Hallucinations R44.3 Active 5366881 Problem Unsteady gait R26.81 Active 41711058 Problem 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 Active 293829880504264 Problem Dysuria R30.0 Active 41150776 Problem Anxiety F41.9 Active 58286706 Problem Dementia in other diseases classified elsewhere without behavioral disturbance F02.80 Active 666878198 Problem Other frontotemporal dementia G31.09 Active 685622487 Problem Parkinsons disease G20 Active 41712239 Problem Episodic cluster headache, not intractable G44.019 Active 148760902 Problem Neurogenic orthostatic hypotension G90.3 Active 948652754 Problem Mixed stress and urge urinary incontinence N39.46 Active 108625309 Problem 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 Active 991381625 Problem Essential hypertension I10 Active 96742290 Problem Type 2 diabetes mellitus with unspecified complications E11.8 Active 86163171 Problem PVD (peripheral vascular disease) I73.9 Active 847448592 Problem Dysthymia F34.1 Active 83433099 Problem Polydipsia R63.1 Active 16088609 Problem Coronary artery disease involving [place] coronary artery of [place] heart without angina pectoris I25.10 Active 2528691482439 Problem Hypothyroidism (acquired) E03.9 Active 261889441 Problem Hyperlipemia, mixed E78.2 Active 518239528 Problem Dementia with Lewy bodies G31.83 Active 975183475 Problem Neuropathy G62.9 Active 731342655 Problem Hypernatremia E87.0 Active 86059731 ALLERGIES No Information ENCOUNTERS Encounter Location Date Diagnosis [facility] [id number] [place] [address] 04649- 4281 Apr, [facility] [address] 28750- 2249 Mar, Left shoulder pain M25.512 [facility] [id number] [place] [address] 82623- 1874 Mar, [facility] [address] 79638- 1314 Mar, Hyperlipemia, mixed E78.2 ; Essential hypertension I10 and Coronary artery disease involving [place] coronary artery of [place] heart without angina pectoris I25.10 [place] [address] 39249- 8476 26 Mar, 2018 Type 2 diabetes mellitus with unspecified complications E11.8 [place] [address] 13411- 3120 17 Mar, 2018 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 [place] [address] 35066- 3270 Mar, [place] [address] 13112- 5706 Mar, [place] [id number] [place] [address] 25622- 0056 Mar, [place] [id number] [place] [address] 12560- 8002 Mar, [facility] [id number] [place] [address] 32814- 2731 Mar, Cellulitis of left lower extremity L03.116 and Petechial rash R23.3 [place] [id number] [place] [address] 64745- 0671 Feb, Left shoulder pain M25.512 [place] [id number] [place] [address] 29037- 3937 Feb, Left shoulder pain M25.512 [facility] [id number] [place] [address] 45528- 8198 Feb, 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 [place] [address] 18492- 2141 Jan, Left shoulder pain M25.512 [facility] [address] 28361- 4818 Dec, Parkinsons disease G20 [facility] [address] 80218- 4815 Dec, Left shoulder pain M25.512 [place] [address] 09440- 2037 Dec, Type 2 diabetes mellitus with unspecified complications E11.8 ; Anxiety F41.9 ; Therapeutic drug monitoring Z51.81 and Analgesic use Z79.899 [place] [address] 29578- 7592 November, [facility] [address] 90056- 5520 November, [place] [address] 28008- 6832 November, Left shoulder pain M25.512 [facility] [id number] [place] [address] 20678- 9660 Oct, [facility] [id number] [place] [address] 32697 -9493 Oct, [facility] [address] 55715- 8403 Oct, Parkinsons disease G20 [facility] [id number] [place] [address] 18272 -9127 Oct, Acute cystitis without hematuria N30.00 and Viral upper respiratory tract infection J06.9 [facility] [address] 10064- 1675 Oct, [place] [address] [address]- 4733 Oct, Type 2 diabetes mellitus with unspecified complications E11.8 [place] [id number] [place] [address] 52319- 3487 Oct, Left shoulder pain M25.512 [place] [id number] [place] [address] 53391- 9408 Oct, Type 2 diabetes mellitus with unspecified complications E11.8 ; Dysuria R30.0 and Neurogenic orthostatic hypotension G90.3 [place] [address] 08890- 9479 Sep, Left shoulder pain M25.512 [place] [id number] [place] [address] 97849- 9236 Sep, Medicare annual wellness visit, initial Z00.00 ; Parkinsons disease G20 ; Type 2 diabetes mellitus with unspecified complications E11.8 ; Essential hypertension I10 ; Coronary artery disease involving [place] coronary artery of [place] heart without angina pectoris I25.10 ; Hypothyroidism (acquired ) E03.9 ; PVD (peripheral vascular disease) I73.9 ; Dysthymia F34.1 ; Hyperlipemia, mixed E78.2 ; Neuropathy G62.9 ; Encounter for immunization Z23 ; Encounter for other screening for malignant neoplasm of breast Z12.39 and Mixed stress and urge urinary incontinence N39.46 [place] [id number] [place] [address] 02917- 4952 Aug, Parkinsons disease G20 [place] [id number] [place] [address] 86994- 5507 Aug, Type 2 diabetes mellitus with unspecified complications E11.8 ; Left shoulder pain M25.512 and Hypotensive episode I95.9 [place] [id number] [place] [address] 78629- 2583 Aug, Coronary artery disease involving [place] coronary artery of [place] heart without angina pectoris I25.10 [place] [id number] [place] [address] 00913- 4231 Aug, Type 2 diabetes mellitus with unspecified complications E11.8 [place] [id number] [place] [address] 42925- 5258 Jul, Callus of foot L84 [address] 33822- 5349 Jul, [place] [address] 07160- 1935 Jul, Callus of foot L84 ; Episodic cluster headache, not intractable G44.019 ; Type 2 diabetes mellitus with unspecified complications E11.8 and Parkinsons disease G20 [place] [address] 38164- 3097 Jul, [address] 48352- 7714 Jul, [place] [address] 38905- 6522 Jun, Type 2 diabetes mellitus with unspecified complications E11.8 ; Unsteady gait R26.81 ; Forgetfulness R68.89 and Hallucinations R44.3 [place] [id number] [place] [address] 96475- 7189 Jun, [address] 08760- 0141 Jun, Left shoulder pain M25.[address] 52395- 5914 13 May, 2017 Hypernatremia E87.0 and Polydipsia R63.1 [place] [id number] [place] [address] 40615- 6395 May, Hypernatremia E87.0 and Polydipsia R63.1 [place] [address] 74370- 9242 May, Hypoglycemia E16.2 ; Dysuria R30.0 ; Unsteadiness on feet R26.81 ; Forgetfulness R68.89 ; Type 2 diabetes mellitus with unspecified complications E11.8 and Yeast infection involving the vagina and surrounding area B37.3 [facility] [id number] [place] [address] 19540- 4820 May, Acute cystitis without hematuria N30.00 [facility] [id number] [place] [address] 432386 -8803 Apr, Dysuria R30.0 and Acute cystitis without hematuria N30.00 [place] [address] 106197- 3947 Apr, Hypernatremia E87.0 and Polydipsia R63.1 [place] [id number] [place] [address] 04072- 5481 Apr, Vertigo R42 and Type 2 diabetes mellitus with unspecified complications E11.8 [place] [id number] [place] [address] 93915- 8471 Mar, [place] [address] 13609- 4292 19 Mar, 2017 Left shoulder pain M25.512 [place] [id number] [place] [address] 48788- 9389 Mar, Vertigo R42 [place] [id number] [place] [address] 44024- 1802 12 Mar, 2017 Polydipsia R63.1 [place] [id number] [place] [address] 51615- 5969 Mar, Polydipsia R63.1 [place] [id number] [place] [address] 49372- 7494 11 Mar, 2017 Vertigo R42 [place] [id number] [place] [address] 41931- 9272 07 Mar, 2017 Type 2 diabetes mellitus with unspecified complications E11.8 ; Vertigo R42 ; Polydipsia R63.1 ; Polyuria R35.8 ; Hypothyroidism ( acquired) E03.9 ; Abnormal urinalysis R82.90 and Dysthymia F34.1 [facility] [id number] [place] [address] 16149- 4153 05 Mar, 2017 Coronary artery disease of [place] artery with stable angina pectoris, unspecified whether [place] or transplanted heart I25.118 ; Systolic CHF, chronic I50.22 ; Hyperlipemia, mixed E78.2 and Essential hypertension I10 [facility] [address] [id number] Feb, Dental caries K02.9 [facility] [address] 00922- 8493 Feb, Type 2 diabetes mellitus with diabetic neuropathy, unspecified E11.40 [facility] [address] 68481- 1645 Dec, Left shoulder pain M25.512 [facility] [address] 37618- 3716 Dec, [facility] [id number] [place] [address] 41113- 8300 Dec, Type 2 diabetes mellitus with unspecified complications E11.8 [facility] [id number] [place] [address] [id number] Dec, Dental examination Z01.20 [facility] [id number] [place] [address] 53606- 7329 08 Dec, 2016 Type 2 diabetes mellitus with diabetic neuropathy, unspecified E11.40 [facility] [address] 40060- 1955 07 Dec, 2016 [facility] [id number] [place] [address] 52506- 9616 06 Dec, 2016 Type 2 diabetes mellitus with diabetic neuropathy, unspecified E11.40 [facility] [id number] [place] [address] 40303- 2419 November, Left shoulder pain M25.512 [place] [address] 53771- 3185 November, [place] [address] 35412- 5455 November, Type 2 diabetes mellitus with unspecified complications E11.8 and Dysuria R30.0 [place] [address] 72852- 1966 Oct, Left shoulder pain M25.512 [place] [address] 95763- 9144 Sep, Left shoulder pain M25.512 [place] [address] 95098- 1985 Sep, Pre-op testing Z01.818 [place] [address] 59007- 3089 Sep, Pre-op testing Z01.818 [place] [address] 63344- 6338 Sep, Pre-op testing Z01.818 [place] [id number] [place] [address] 01626- 9300 Sep, Pre-op testing Z01.818 and Mouth pain K13.79 [place] [id number] [place] [address] 82011- 3270 Sep, Left shoulder pain M25.512 [place] [address] 84141- 5594 Aug, Other eczema L30.8 [place] [address] 13547- 7329 06 Aug, 2016 PVD (peripheral vascular disease) I73.9 ; Type 2 diabetes mellitus with unspecified complications E11.8 ; Acute cystitis with hematuria N30.01 ; Other eczema L30.8 ; Dysuria R30.0 and Left shoulder pain M25.512 [facility] [address] 33371 -4916 Jul, Otalgia of right ear H92.01 and Blood in ear canal, right H92.21 [place] [address] 80827- 1167 Jul, Arthralgia, unspecified joint M25.50 ; PVD (peripheral vascular disease) I73.9 and Neuropathy G62.9 [place] [address] 88934- 1983 Jul, [place] [address] 51964- 5968 Jun, Medicare annual wellness visit, initial Z00.00 ; Cervicalgia M54.2 ; Radiculopathy of cervical region M54.12 ; Encounter for immunization Z23 ; Type 2 diabetes mellitus with unspecified complications E11.8 and Essential hypertension I10 [place] [id number] [place] [address] 67477- 6949 Jun, [place] [address] 22730- 9095 14 May, 2016 Hypothyroidism (acquired) E03.9 [place] [address] 11046- 9345 10 May, 2016 Dysuria R30.0 ; Essential hypertension I10 ; Hypothyroidism (acquired) E03.9 and PVD (peripheral vascular disease) I73.9 [facility] [id number] [place] [address] 84517 -0148 03 May, 2016 Burning with urination R30.0 and Acute cystitis with hematuria N30.01 [place] [address] 61805- 7244 May, Dental examination Z01.20 [place] [address] 23399- 0792 May, Hypothyroidism (acquired) E03.9 [facility] [address] [address]- 7900 Feb, [facility] [id number] [place] [address] 88632 2546 Feb, 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 ; PVD ( peripheral vascular disease) I73.9 ; Type 2 diabetes mellitus with unspecified complications E11.8 and Essential hypertension I10 [facility] [id number] [place] [address] 07467- 2496 Jan, [facility] [id number] [place] [address] 27254- 8018 Jan, Hypothyroidism (acquired) E03.9 [facility] [id number] [address]- 3373 Jan, [facility] [address] [address]- 5051 Jan, [facility] [address] [address]- 1285 Jan, Type 2 diabetes mellitus with unspecified complications E11.8 ; 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 and Essential ( primary) hypertension I10 [facility] [address] [address]- 6022 Jan, Type 2 diabetes mellitus with unspecified complications E11.8 ; 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 ; Essential hypertension I10 and PVD (peripheral vascular disease) I73.9 [facility] [address] [address]- 3933 Jan, [facility] [address] [address]- 6431 Jan, [facility] [address] [address]- 2451 Jan, [place] [id number] [place] [address] 71483- 4197 Jan, Weakness R53.1 ; Fatigue, unspecified type R53.83 ; PVD ( peripheral vascular disease) I73.9 ; Acute osteomyelitis of other site M86.18 ; Type 2 diabetes mellitus with diabetic neuropathy, unspecified E11.40 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 [place] [id number] [place] [address] 52577- 9996 30 Dec, 2015 [place] [id number] [place] [address] 47549- 8881 Dec, Type 2 diabetes mellitus with unspecified complications E11.8 [place] [address] 46822- 3594 Dec, [place] [id number] [place] [address] 79708- 7230 Dec, Pressure ulcer, unspecified pressure ulcer stage L89.90 and Type 2 diabetes mellitus with unspecified complications E11.8 [facility] [id number] [place] [address] 26590 -1265 Dec, Toe infection L08.9 [place] [id number] [place] [address] 95689- 4235 November, Dental caries K02.9 [place] [id number] [place] [address] 37914- 9872 November, [place] [id number] [place] [address] 44017- 6362 November, Dental examination Z01.20 [place] [id number] [place] [address] 43204- 5813 Sep, Lipoma of torso D17.1 and Thoracic neuritis M54.14 [place] [id number] [place] [address] 22874- 4020 Sep, [place] [address] 72165- 7016 Aug, [facility] [id number] [place] [address] 46450 -9770 Jul, Dysuria R30.0 and UTI (urinary tract infection) N39.0 [facility] [id number] [place] [address] 63618- 7214 Jun, Left shoulder pain M25.512 [facility] [id number] [place] [address] 72765- 8797 May, Shoulder pain, left M25.512 [facility] [id number] [place] [address] 94273- 2527 May, [facility] [id number] [place] [address] 87671- 5370 May, [facility] [id number] [place] [address] 90575- 5749 May, Left shoulder pain M25.512 [facility] [id number] [place] [address] 72775- 9548 May, [facility] [id number] [place] [address] 63986- 2683 Apr, Encounter for immunization Z23 [place] [id number] [place] [address] 34896- 0201 Apr, Urinary tract infection, site not specified N39.0 ; Hypotension, unspecified I95.9 ; Type 2 diabetes mellitus with unspecified complications E11.8 and Generalized edema R60.1 [place] [id number] [place] [address] 31854- 2658 Apr, [facility] [id number] [place] [address] 51071- 0275 Mar, Diabetes with other specified manifestations, type II or unspecified type, not stated as uncontrolled 250.80 [place] [id number] [place] [address] 02487- 1233 Feb, Gout 274.9 and Diabetes 250.00 [facility] [id number] [address]- 7560 Jan, [facility] [id number] [place] [address] 118552- 9548 November, CAD (coronary artery disease) 414.00 and CHF (congestive heart failure) 428.0 [facility] [id number] [place] [address] 56620- 5473 Oct, [facility] [id number] [place] [address] 88160- 4685 Oct, [facility] [id number] [place] [address] 18237- 3609 Oct, [facility] [id number] [place] [address] 875300- 0130 Sep, [facility] [id number] [place] [address] 11449- 0074 Sep, [facility] [id number] [place] [address] 33644- 7033 Sep, [facility] [id number] [place] [address] 57601- 0497 Sep, [facility] [address] [address]- 3629 Aug, [facility] [id number] [place] [address] 36983- 5664 Aug, [facility] [address] [address]- 6258 Aug, [facility] [id number] [address]- 2718 Aug, [facility] [address] [address]- 6356 Aug, [facility] [id number] [place] [address] 21165- 8648 Aug, [facility] [place] [facility] [address] [id number] [place] [address]- 3335 Aug, [facility] [place] [facility] [address] [id number] [place] [address]- 1114 Aug, [facility] [place] [facility] [address] [id number] [place] [address]- 0760 Jul, [facility] [place] [facility] [address] [id number] [place] [address]- 6609 Jul, [facility] [place] [facility] [address] [id number] [place] [address]- 8390 Jul, [facility] [place] [facility] [address] [id number] [place] [address]- 4007 Jul, [facility] [place] [facility] [address] [id number] [place] [address]- 1658 Jul, [facility] [place] [facility] [address] [id number] [place] [address]- 7240 Jul, [facility] [place] [facility] [address] [id number] [place] [address]- 2375 Jul, [facility] [place] [facility] [address] [facility] [id number] [place] [address]- 5490 Jul, [facility] [place] [facility] [address] [id number] [place] [address]- 6125 Jul, [facility] [place] [facility] [address] [id number] [place] [address]- 4755 Jul, [facility] [place] [facility] [address] [id number] [place] [address]- 7749 Jun, [facility] [place] [facility] [address] [id number] [place] [id number] Jun, [facility] [place] [facility] [address] [id number] [place] [address] Jun, [facility] [place] [facility] [address] [id number] [place] [address] Jun, [facility] [place] [facility] [address] [id number] [place] [address] Jun, [facility] [place] [facility] [address] [id number] [place] [address] Jun, [facility] [place] [facility] [address] [id number] [place] [address] Jun, [facility] [place] [facility] [address] [id number] [place] [address] Jun, [facility] [place] [facility] [address] [id number] [place] [address] Jun, [facility] [place] [facility] [address] [id number] [place] [address] Jun, [facility] [place] [facility] [address] [id number] [place] [address] May, [facility] [place] [facility] [address] [id number] [place] [address] May, [facility] [place] [facility] [address] [id number] [place] [address] Mar, [facility] [place] [facility] [address] [id number] [place] [address] 18 Mar, 2014 [facility] [place] [facility] [address] [id number] [place] [address] Mar, [facility] [place] [facility] [address] [id number] [place] [address] Mar, [facility] [place] [facility] [address] [id number] [place] [address] Feb, [facility] [place] [facility] [address] [id number] [place] [address] Feb, [facility] [place] [facility] [address] [id number] [place] [address] Feb, [facility] [place] [facility] [address] [address] [id number] [place] [address] Jan, [facility] [place] [facility] [address] [id number] [place] [address] Jan, [facility] [place] [facility] [address] [id number] [place] [address] 8[address] Jan, [facility] [place] [facility] [address] [id number] [place] [address] Jan, [facility] [place] [facility] [address] [id number] [place] [address] 32[address] Jan, [facility] [place] [facility] [address] [id number] [place] [address] 1477 Jan, [facility] [place] [facility] [address] [id number] [place] [address]- 6877 Jan, [facility] [place] [facility] [address] [id number] [place] [address] 40[address] Jan, [facility] [place] [facility] [address] [id number] [place] [address]- 2824 Jan, [facility] [place] [facility] [address] [id number] [place] [address] 8238 Jan, [facility] [place] [facility] [address] [id number] [place] [address]- 5260 Dec, [facility] [place] [facility] [address] [id number] [place] [address]171 Dec, [facility] [place] [facility] [address] [id number] [place] [address]- 0334 November, [facility] [place] [facility] [address] [id number] [place] [address]- 0477 November, [facility] [place] [facility] [address] [id number] [place] [address]- 2816 November, [facility] [place] [facility] [address] [id number] [place] [address]- 1347 November, [facility] [address] [id number] [place] [address]- 6616 November, [facility] [address] [id number] [place] [address] November, [facility] [address] [id number] [place] [address]- 9353 November, [facility] [address] [id number] [place] [address]- 4643 Oct, [facility] [address] [id number] [place] [address]- 0156 Oct, [facility] [address] [id number] [place] [address]- 7339 Sep, [facility] [address] [id number] [place] [address]- 5613 Sep, [facility] [address] [id number] [place] [address]- 7174 Sep, [facility] [address] [id number] [place] [address]- 4014 Sep, [facility] [address] [id number] [place] [address]- 8066 Sep, [facility] [place] [facility] [address] [id number] [place] [address]- 8298 Sep, [facility] [place] [facility] [address] [id number] [place] [address]- 9861 Sep, [facility] [place] [facility] [address] [id number] [place] [address]- 5107 Sep, [facility] [place] [facility] [address] [id number] [place] [address]- 3586 Sep, [facility] [place] [facility] [address] [id number] [place] [address]- 7865 Sep, [facility] [address] [id number] [place] [address]- 9309 Aug, [facility] [place] [facility] [address] [id number] [place] [address]- 3506 Aug, [facility] [place] [facility] [address] [id number] [place] [address]- 3415 Jul, [facility] [place] [facility] [address] [id number] [place] [address]- 8657 Jul, [facility] [place] [facility] [address] [id number] [place] [address]- 9822 Jul, [facility] [place] [facility] [address] [id number] [place] [address]- 7849 Jul, [facility] [place] [facility] [address] [id number] [place] [address]- 4703 Jul, [facility] [place] [facility] [address] [id number] [place] [address]- 9982 Jul, [facility] [place] [facility] [address] [id number] [place] [address]- 1875 Jun, [facility] [place] [facility] [address] [id number] [place] [address]- 7797 Jun, [facility] [place] [facility] [address] [id number] [place] [address]- 8710 Jun, [facility] [place] [facility] [address] [id number] [place] [address]- 1855 Jun, [facility] [place] [facility] [address] [id number] [place] [address]- 9179 May, [facility] [place] [facility] [address] [id number] [place] [address]- 1196 May, [facility] [place] [facility] [address] [id number] [place] [address]- 7413 May, [facility] [place] [facility] [address] [id number] [place] [address]- 1738 May, [facility] [place] [facility] [address] [id number] [place] [address]- 2753 May, [facility] [place] [facility] [address] [id number] [place] [address]- 4392 Apr, 2012 [facility] [place] [facility] [address] [id number] [place] [address]- 8826 Apr, [facility] [place] [facility] [address] [id number] [place] [address]- 7847 Apr, [facility] [place] [facility] [address] [id number] [place] [address] Apr, [facility] [place] [facility] [address] [id number] [place] [address]- 0640 Apr, [facility] [place] [facility] [address] [id number] [place] [address]- 4940 Apr, [facility] [place] [facility] [address] [id number] [place] [address]- 8167 Apr, [facility] [place] [facility] [address] [id number] [place] [address]- 2072 Apr, [facility] [place] [facility] [address] [id number] [place] [address]- 5867 Apr, [facility] [place] [facility] [address] [id number] [place] [address]- 9593 Apr, [facility] [place] [facility] [address] [id number] [place] [address]- 0436 Apr, [facility] [place] [facility] [address] [id number] [place] [address]- 6113 Apr, [facility] [place] [facility] [address] [id number] [place] [address]- 2017 Mar, [facility] [place] [facility] [address] [id number] [place] [address]- 3217 20 Mar, 2013 [facility] [place] [facility] [address] [id number] [place] [address]- 0590 Feb, [facility] [place] [facility] [address] [id number] [place] [address]- 0290 Jan, [facility] [place] [facility] [address] [id number] [place] [address]- 2824 Jan, [facility] [place] [facility] [address] [id number] [place] [address]- 9821 Jan, [facility] [place] [facility] [address] [id number] [place] [address]- 7990 Jan, [facility] [place] [facility] [address] [id number] [place] [address]- 4204 Dec, [facility] [place] [facility] [address] [id number] [place] [address]- 3341 Dec, [facility] [place] [facility] [address] [id number] [place] [address]- 8258 Dec, [facility] [place] [facility] [address] [id number] [place] [address]- 8531 Dec, [facility] [place] [facility] [address] [id number] [place] [address]- 2125 Dec, [facility] [place] [facility] [address] [id number] [place] [address]- 1634 Dec, [facility] [place] [facility] [address] [id number] [place] [address]- 3265 Dec, [facility] [place] [facility] [address] [id number] [place] [address]- 8422 November, [facility] [place] [facility] [address] [id number] [place] [address]- 3722 November, [facility] [place] [facility] [address] [id number] [place] [address]- 4639 November, [facility] [place] [facility] [address] [id number] [place] [address]- 7633 Oct, [facility] [address] [id number] [place] [address]- 3566 Oct, [facility] [address] [id number] [place] [address]- 4633 Oct, [facility] [address] [id number] [place] [address]- 4648 Oct, [facility] [place] [facility] [address] [id number] [place] [address]- 7018 Oct, [facility] [address] [id number] [place] [address]- 2766 Sep, [facility] [address] [id number] [place] [address]- 7246 Sep, [facility] [address] [id number] [place] [address]- 6713 Sep, [facility] [place] [facility] [address] [id number] [place] [address]- 6728 Sep, [facility] [address] [id number] [place] [address]- 0360 Aug, [facility] [place] [facility] [address] [id number] [place] [address]- 6877 Aug, [facility] [place] [facility] [address] [id number] [place] [address]- 8376 Aug, [facility] [place] [facility] [address] [id number] [place] [address] 2544 Aug, [facility] [place] [facility] [address] [id number] [place] [address]- 8206 Jul, [facility] [place] [facility] [address] [id number] [place] [address]- 2516 Jul, [facility] [place] [facility] [address] [id number] [place] [address]- 7756 Jun, [facility] [place] [facility] [address] [id number] [place] [address]- 3754 Jun, [facility] [place] [facility] [address] [id number] [place] [address]- 3535 Jun, [facility] [place] [facility] [address] [id number] [place] [address]- 4106 Jun, [facility] [place] [facility] [address] [id number] [place] [address]- 6344 May, [facility] [place] [facility] [address] [id number] [place] [address]- 6636 May, [facility] [place] [facility] [address] [id number] [place] [address]- 4591 May, [facility] [place] [facility] [address] [facility] [id number] [place] [address]- 9261 May, [facility] [place] [facility] [address] [facility] [id number] [place] [address]- 4467 Apr, [facility] [place] [facility] [address] [id number] [place] [address]- 2275 31 Apr, 2012 [facility] [place] [facility] [address] [facility] [id number] [place] [address]- 8930 31 Apr, 2012 [facility] [place] [facility] [address] [facility] [id number] [place] [address]- 0560 31 Apr, 2012 [facility] [place] [facility] [address] [facility] [id number] [place] [address]- 5512 30 Apr, 2012 [facility] [place] [facility] [address] [id number] [place] [address]- 6259 30 Apr, 2012 [facility] [place] [facility] [address] [id number] [place] [address]- 3776 Apr, [facility] [place] [facility] [address] [facility] [id number] [place] [address]- 6714 26 Apr, 2012 [facility] [place] [facility] [address] [facility] [id number] [place] [address]70 Apr, [facility] [place] [facility] [address] [id number] [place] [address]- 5490 Apr, [facility] [place] [facility] [address] [id number] [place] [address]- 9262 Feb, [facility] [place] [facility] [address] [id number] [place] [address]- 7475 Feb, [facility] [place] [facility] [address] [id number] [place] [address]- 5598 Jan, [facility] [place] [facility] [address] [id number] [place] [address]- 6092 Jan, [facility] [place] [facility] [address] [id number] [place] [address]- 9661 Jan, [facility] [place] [facility] [address] [id number] [place] [address]- 9881 Jan, [facility] [place] [facility] [address] [id number] [place] [address]- 3627 Jan, [facility] [place] [facility] [address] [id number] [place] [address]- 2326 Jan, [facility] [place] [facility] [address] [id number] [place] [address]- 1133 Dec, [facility] [place] [facility] [address] [id number] [place] [address]- 5242 November, [facility] [place] [facility] [address] [id number] [place] [address]- 1633 November, [facility] [place] [facility] [address] [id number] [place] [address]- 3103 November, [facility] [place] [facility] [address] [id number] [place] [address]- 3496 Sep, [facility] [place] [facility] [address] [id number] [place] [address]- 7076 Sep, [facility] [place] [facility] [address] [id number] [place] [address]- 1806 09 Sep, 2011 [facility] [place] [facility] [address] [id number] [place] [address]- 3528 08 Sep, 2011 [facility] [place] [facility] [address] [id number] [place] [address]- 8581 Sep, [facility] [place] [facility] [address] [id number] [place] [address]- 0854 Sep, [facility] [place] [facility] [address] [id number] [place] [address]- 4222 13 Aug, 2011 [facility] [place] [facility] [address] [id number] [place] [address]- 5681 Aug, [facility] [place] [facility] [address] [id number] [place] [address]- 7723 Aug, [facility] [place] [facility] [address] [id number] [place] [address]- 3816 Jul, [facility] [place] [facility] [address] [id number] [place] [address]- 5297 Jul, [facility] [place] [facility] [address] [id number] [place] [address]- 1970 Jul, [facility] [place] [facility] [address] [id number] [place] [address]- 7469 Jul, [facility] [place] [facility] [address] [id number] [place] [address]- 9506 Jun, [facility] [place] [facility] [address] [id number] [place] [address]- 9940 Jun, [facility] [place] [facility] [address] [id number] [place] [address]- 2629 Jun, [facility] [place] [facility] [address] [id number] [place] [address]- 2946 Jun, [facility] [place] [facility] [address] [id number] [place] [address]- 7677 Jun, [facility] [place] [facility] [address] [id number] [place] [address]- 7348 Jun, [facility] [place] [facility] [address] [id number] [place] [address]- 9572 May, [facility] [place] [facility] [address] [id number] [place] [address]- 3586 May, [facility] [place] [facility] [address] [id number] [place] [address]- 5276 May, [facility] [address] [id number] [place] [address]- 4834 Apr, [facility] [place] [facility] [address] [id number] [place] [address]- 1314 Jan, [facility] [address] [id number] [place] [address]- 1671 Jun, [facility] [address] [id number] [place] [address]- 8635 Jun, [facility] [address] [id number] [place] [address]- 7339 15 Jun, 2010 [facility] [place] [facility] [address] [id number] [place] [address]- 5000 15 Jun, 2010 [facility] [place] [facility] [address] [id number] [place] [address]- 6062 15 Jun, 2010 [facility] [place] [facility] [address] [id number] [place] [address]- 4688 13 Jun, 2010 [facility] [place] [facility] [address] [id number] [place] [address]- 5590 Jun, [facility] [place] [facility] [address] [id number] [place] [address]- 5650 Apr, [facility] [place] [facility] [address] [id number] [place] [address]- 4202 Feb, [facility] [place] [facility] [address] [id number] [place] [address]- 9276 15 Aug, 2009 [facility] [address] [id number] [place] [address]- 4479 18 Jul, 2009 [facility] [place] [facility] [address] [id number] [place] [address] 2546 Jul, [facility] [address] [id number] [place] [address]- 4686 29 Jun, 2009 [facility] [place] [facility] [address] [id number] [place] [address] 2543 Jun, [facility] [address] [id number] [place] [address]- 9600 Jun, [facility] [place] [facility] [address] [id number] [place] [address]- 2578 Jun, [facility] [address] [facility] [id number] [place] [address]- 8404 16 Jun, 2009 [facility] [place] [facility] [address] [id number] [place] [address]- 6988 Jun, [facility] [place] [facility] [address] [id number] [place] [address]- 2021 Jun, [facility] [place] [facility] [address] [id number] [place] [address]- 2855 30 May, 2009 [facility] [place] [facility] [address] [id number] [place] [address]- 2336 27 May, 2009 [facility] [place] [facility] [address] [id number] [place] [address]- 0765 23 May, 2009 [facility] [place] [facility] [address] [id number] [place] [address]- 2656 18 May, 2009 [facility] [place] [facility] [address] [id number] [place] [address]- 6622 May, [facility] [place] [facility] [address] [id number] [place] [address]- 8637 16 May, 2009 [facility] [place] [facility] [address] [facility] [id number] [place] [address]- 2546 May, [facility] [address] [facility] [id number] [place] [address]- 3066 Apr, [facility] [address] [facility] [id number] [place] [address]- 2546 Apr, [facility] [address] [facility] [id number] [place] [address] 2546 Jan, [facility] [address] [facility] [id number] [place] [address]- 2546 Oct, IMMUNIZATIONS No Known Immunizations SOCIAL HISTORY Never Assessed REASON FOR VISIT Lab Results Request PLAN OF CARE VITAL SIGNS MEDICATIONS Unknown [...]
--- OUTSIDE RECORDS SUMMARY | 2018-11-09 12:54 | XMS REPORT ---
Author Author PRABHA HILL [facility] Address [address] [place] [address] Care Team Providers Care [employer]ker [employer] Name Role Phone PRABHA HILL Unavailable PROBLEMS Type Condition ICD9-CM Code ASI25-QD Code Onset Dates Condition Status SNOMED Code Problem Hypoglycemia E16.2 Active 020997028 Problem Hallucinations R44.3 Active 4734715 Problem Unsteady gait R26.81 Active 74725177 Problem 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 Active 248982603498903 Problem Dysuria R30.0 Active 86592572 Problem Anxiety F41.9 Active 08087697 Problem Dementia in other diseases classified elsewhere without behavioral disturbance F02.80 Active 075301153 Problem Other frontotemporal dementia G31.09 Active 458375776 Problem Parkinsons disease G20 Active 62588011 Problem Episodic cluster headache, not intractable G44.019 Active 083293459 Problem Neurogenic orthostatic hypotension G90.3 Active 523891185 Problem Mixed stress and urge urinary incontinence N39.46 Active 359650239 Problem 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 Active 037394833 Problem Essential hypertension I10 Active 70590346 Problem Type 2 diabetes mellitus with unspecified complications E11.8 Active 23044327 Problem PVD (peripheral vascular disease) I73.9 Active 050325407 Problem Dysthymia F34.1 Active 94685581 Problem Polydipsia R63.1 Active 40440309 Problem 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 Active 0159610321807 Problem Hypothyroidism (acquired) E03.9 Active 293452311 Problem Hyperlipemia, mixed E78.2 Active 086754123 Problem Dementia with Lewy bodies G31.83 Active 467411602 Problem Neuropathy G62.9 Active 937610917 Problem Hypernatremia E87.0 Active 35561567 ALLERGIES No Information ENCOUNTERS Encounter Location Date Diagnosis [facility] [id number] [place] [address] 49974- 2646 Apr, [facility] [address] 29263- 1252 Mar, Left shoulder pain M25.512 [facility] [id number] [place] [address] 58909- 1699 Mar, [facility] [address] 58251- 6715 Mar, Hyperlipemia, mixed E78.2 ; Essential hypertension I10 and 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 [place] [address] 70453- 7177 26 Mar, 2018 Type 2 diabetes mellitus with unspecified complications E11.8 [place] [address] 23851- 4264 17 Mar, 2018 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 [place] [address] 48553- 9999 Mar, [place] [address] 88992- 0947 Mar, [place] [id number] [place] [address] 69259- 3323 Mar, [place] [id number] [place] [address] 60850- 9452 Mar, [facility] [id number] [place] [address] 51931- 3359 Mar, Cellulitis of left lower extremity L03.116 and Petechial rash R23.3 [facility] [id number] [place] [address] 95644- 3680 Feb, Left shoulder pain M25.512 [facility] [facility] [id number] [place] [address] 87585- 0621 Feb, Left shoulder pain M25.512 [facility] [id number] [place] [address] 94636- 8834 Feb, 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 [place] [address] 71267- 3451 Jan, Left shoulder pain M25.512 [facility] [address] 66623- 5432 Dec, Parkinsons disease G20 [facility] [address] 83589- 4046 Dec, Left shoulder pain M25.512 [place] [address] 25451- 9904 Dec, Type 2 diabetes mellitus with unspecified complications E11.8 ; Anxiety F41.9 ; Therapeutic drug monitoring Z51.81 and Analgesic use Z79.899 [place] [address] 08387- 9825 November, [facility] [address] 79482- 1774 November, [place] [address] 93142- 2607 November, Left shoulder pain M25.512 [facility] [id number] [place] [address] 47412- 7290 Oct, [facility] [id number] [place] [address] 70970 -3206 Oct, [facility] [address] 29317- 9530 Oct, Parkinsons disease G20 [facility] [id number] [place] [address] 37238 -4436 Oct, Acute cystitis without hematuria N30.00 and Viral upper respiratory tract infection J06.9 [facility] [address] 54444- 1436 Oct, [place] [address] [address] 1465 Oct, Type 2 diabetes mellitus with unspecified complications E11.8 [place] [address] [place] [address] 40035- 4867 Oct, Left shoulder pain M25.512 [place] [id number] [place] [address] 46992- 3567 Oct, Type 2 diabetes mellitus with unspecified complications E11.8 ; Dysuria R30.0 and Neurogenic orthostatic hypotension G90.3 [place] [address] 21855- 7425 Sep, Left shoulder pain M25.512 [place] [id number] [place] [address] 78656- 0224 Sep, Medicare annual wellness visit, initial Z00.00 ; Parkinsons disease G20 ; Type 2 diabetes mellitus with unspecified complications E11.8 ; Essential hypertension I10 ; 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 ; Hypothyroidism (acquired ) E03.9 ; PVD (peripheral vascular disease) I73.9 ; Dysthymia F34.1 ; Hyperlipemia, mixed E78.2 ; Neuropathy G62.9 ; Encounter for immunization Z23 ; Encounter for other screening for malignant neoplasm of breast Z12.39 and Mixed stress and urge urinary incontinence N39.46 [place] [address] [place] [address] 68371- 9085 Aug, Parkinsons disease G20 [place] [id number] [place] [address] 90765- 4950 Aug, Type 2 diabetes mellitus with unspecified complications E11.8 ; Left shoulder pain M25.512 and Hypotensive episode I95.9 [place] [address] [place] [address] 08191- 8063 Aug, 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 [place] [id number] [place] [address] 95942- 3670 Aug, Type 2 diabetes mellitus with unspecified complications E11.8 [place] [id number] [place] [address] 68374- 5689 Jul, Callus of foot L84 [address] 72546- 3803 Jul, [place] [address] 64032- 9207 Jul, Callus of foot L84 ; Episodic cluster headache, not intractable G44.019 ; Type 2 diabetes mellitus with unspecified complications E11.8 and Parkinsons disease G20 [place] [address] 27609- 7925 Jul, [address] 88621- 2250 Jul, [place] [address] 70837- 1177 Jun, Type 2 diabetes mellitus with unspecified complications E11.8 ; Unsteady gait R26.81 ; Forgetfulness R68.89 and Hallucinations R44.3 [address] [id number] [place] [address] 91516- 9886 Jun, [address] 35579- 8530 Jun, Left shoulder pain M25.[address] 62571- 8193 13 May, 2017 Hypernatremia E87.0 and Polydipsia R63.1 [place] [id number] [place] [address] 20954- 6048 May, Hypernatremia E87.0 and Polydipsia R63.1 [place] [address] 39313- 2304 May, Hypoglycemia E16.2 ; Dysuria R30.0 ; Unsteadiness on feet R26.81 ; Forgetfulness R68.89 ; Type 2 diabetes mellitus with unspecified complications E11.8 and Yeast infection involving the vagina and surrounding area B37.3 [facility] [address] [place] [address] 21322- 2386 May, Acute cystitis without hematuria N30.00 [facility] [id number] [place] [address] 869764 -2681 Apr, Dysuria R30.0 and Acute cystitis without hematuria N30.00 [place] [address] 707375- 2123 Apr, Hypernatremia E87.0 and Polydipsia R63.1 [place] [id number] [place] [address] 39719- 2574 Apr, Vertigo R42 and Type 2 diabetes mellitus with unspecified complications E11.8 [place] [id number] [place] [address] 58348- 2198 Mar, [place] [address] 29687- 3816 19 Mar, 2017 Left shoulder pain M25.512 [place] [id number] [place] [address] 87065- 2614 Mar, Vertigo R42 [place] [id number] [place] [address] 56065- 1259 12 Mar, 2017 Polydipsia R63.1 [place] [id number] [place] [address] 62163- 1138 Mar, Polydipsia R63.1 [place] [id number] [place] [address] 94911- 5305 11 Mar, 2017 Vertigo R42 [place] [id number] [place] [address] 26248- 1569 07 Mar, 2017 Type 2 diabetes mellitus with unspecified complications E11.8 ; Vertigo R42 ; Polydipsia R63.1 ; Polyuria R35.8 ; Hypothyroidism ( acquired) E03.9 ; Abnormal urinalysis R82.90 and Dysthymia F34.1 [facility] [id number] [place] [address] 40975- 8403 05 Mar, 2017 Coronary artery disease of blackfeet artery with stable angina pectoris, unspecified whether blackfeet or transplanted heart I25.118 ; Systolic CHF, chronic I50.22 ; Hyperlipemia, mixed E78.2 and Essential hypertension I10 [facility] [address] [id number] Feb, Dental caries K02.9 [facility] [address] 78566- 4138 Feb, Type 2 diabetes mellitus with diabetic neuropathy, unspecified E11.40 [facility] [address] 51599- 2567 Dec, Left shoulder pain M25.512 [facility] [address] 61853- 7836 Dec, [facility] [id number] [place] [address] 49574- 7833 Dec, Type 2 diabetes mellitus with unspecified complications E11.8 [facility] [id number] [place] [address] [id number] Dec, Dental examination Z01.20 [facility] [id number] [place] [address] 47414- 0852 08 Dec, 2016 Type 2 diabetes mellitus with diabetic neuropathy, unspecified E11.40 [facility] [address] 11730- 0270 07 Dec, 2016 [facility] [id number] [place] [address] 62084- 6600 06 Dec, 2016 Type 2 diabetes mellitus with diabetic neuropathy, unspecified E11.40 [facility] [id number] [place] [address] 16984- 0476 November, Left shoulder pain M25.512 [place] [address] 63716- 2501 November, [place] [address] 10074- 0834 November, Type 2 diabetes mellitus with unspecified complications E11.8 and Dysuria R30.0 [place] [address] 32953- 4642 Oct, Left shoulder pain M25.512 [place] [address] 85424- 9810 Sep, Left shoulder pain M25.512 [place] [address] 37206- 9670 Sep, Pre-op testing Z01.818 [place] [address] 24027- 2364 Sep, Pre-op testing Z01.818 [place] [address] 38003- 6884 Sep, Pre-op testing Z01.818 [place] [id number] [place] [address] 91596- 5798 Sep, Pre-op testing Z01.818 and Mouth pain K13.79 [place] [id number] [place] [address] 56970- 7001 Sep, Left shoulder pain M25.512 [place] [address] 18991- 9064 Aug, Other eczema L30.8 [place] [address] 84999- 6796 06 Aug, 2016 PVD (peripheral vascular disease) I73.9 ; Type 2 diabetes mellitus with unspecified complications E11.8 ; Acute cystitis with hematuria N30.01 ; Other eczema L30.8 ; Dysuria R30.0 and Left shoulder pain M25.512 [facility] [address] 97242 -2344 Jul, Otalgia of right ear H92.01 and Blood in ear canal, right H92.21 [place] [address] 51443- 7340 Jul, Arthralgia, unspecified joint M25.50 ; PVD (peripheral vascular disease) I73.9 and Neuropathy G62.9 [place] [address] 33397- 2475 Jul, [place] [address] 90554- 7134 Jun, Medicare annual wellness visit, initial Z00.00 ; Cervicalgia M54.2 ; Radiculopathy of cervical region M54.12 ; Encounter for immunization Z23 ; Type 2 diabetes mellitus with unspecified complications E11.8 and Essential hypertension I10 [place] [id number] [place] [address] 55358- 0292 Jun, [place] [address] 86289- 6222 14 May, 2016 Hypothyroidism (acquired) E03.9 [place] [address] 61284- 7334 10 May, 2016 Dysuria R30.0 ; Essential hypertension I10 ; Hypothyroidism (acquired) E03.9 and PVD (peripheral vascular disease) I73.9 [facility] [id number] [place] [address] 35810 -3903 03 May, 2016 Burning with urination R30.0 and Acute cystitis with hematuria N30.01 [place] [address] 82664- 9344 May, Dental examination Z01.20 [place] [address] 05108- 4883 May, Hypothyroidism (acquired) E03.9 [facility] [address] [address]- 1150 Feb, [facility] [id number] [place] [address] 44743 2546 Feb, 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 ; PVD ( peripheral vascular disease) I73.9 ; Type 2 diabetes mellitus with unspecified complications E11.8 and Essential hypertension I10 [facility] [address] [place] [address] 83996- 6875 Jan, [facility] [id number] [place] [address] 92852- 0361 Jan, Hypothyroidism (acquired) E03.9 [facility] [id number] [address]- 8161 Jan, [facility] [address] [address]- 1913 Jan, [facility] [address] [address]- 7144 Jan, Type 2 diabetes mellitus with unspecified complications E11.8 ; 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 and Essential ( primary) hypertension I10 [facility] [address] [address]- 4478 Jan, Type 2 diabetes mellitus with unspecified complications E11.8 ; 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 ; Essential hypertension I10 and PVD (peripheral vascular disease) I73.9 [facility] [address] [address]- 1470 Jan, [facility] [address] [address]- 3966 Jan, [facility] [address], [place] [address]- 7209 Jan, [place] [id number] [place] [address] 40130- 7129 Jan, Weakness R53.1 ; Fatigue, unspecified type R53.83 ; PVD ( peripheral vascular disease) I73.9 ; Acute osteomyelitis of other site M86.18 ; Type 2 diabetes mellitus with diabetic neuropathy, unspecified E11.40 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 [place] [id number] [place] [address] 26644- 2339 30 Dec, 2015 [place] [id number] [place] [address] 29688- 3540 Dec, Type 2 diabetes mellitus with unspecified complications E11.8 [place] [address] 52272- 3852 Dec, [place] [id number] [place] [address] 74903- 2139 Dec, Pressure ulcer, unspecified pressure ulcer stage L89.90 and Type 2 diabetes mellitus with unspecified complications E11.8 [facility] [id number] [place] [address] 37145 -4051 Dec, Toe infection L08.9 [place] [id number] [place] [address] 71906- 6690 November, Dental caries K02.9 [place] [id number] [place] [address] 03688- 6094 November, [place] [id number] [place] [address] 23462- 7392 November, Dental examination Z01.20 [place] [id number] [place] [address] 23665- 0377 Sep, Lipoma of torso D17.1 and Thoracic neuritis M54.14 [place] [id number] [place] [address] 09731- 6838 Sep, [place] [address] 03684- 1309 Aug, [facility] [address] [place] [address] 54233 -1302 Jul, Dysuria R30.0 and UTI (urinary tract infection) N39.0 [facility] [address] [place] [address] 96114- 3072 Jun, Left shoulder pain M25.512 [facility] [id number] [place] [address] 42489- 4251 May, Shoulder pain, left M25.512 [facility] [id number] [place] [address] 13392- 5979 May, [facility] [id number] [place] [address] 71464- 1523 May, [facility] [id number] [place] [address] 54038- 9497 May, Left shoulder pain M25.512 [facility] [id number] [place] [address] 27933- 0800 May, [facility] [id number] [place] [address] 99431- 2427 Apr, Encounter for immunization Z23 [place] [id number] [place] [address] 17527- 3770 Apr, Urinary tract infection, site not specified N39.0 ; Hypotension, unspecified I95.9 ; Type 2 diabetes mellitus with unspecified complications E11.8 and Generalized edema R60.1 [place] [address] [place] [address] 00308- 3810 Apr, [facility] [id number] [place] [address] 09415- 9379 Mar, Diabetes with other specified manifestations, type II or unspecified type, not stated as uncontrolled 250.80 [place] [id number] [place] [address] 22353- 1720 Feb, Gout 274.9 and Diabetes 250.00 [facility] [id number] [address]- 9423 Jan, [facility] [id number] [place] [address] 633246- 1617 November, CAD (coronary artery disease) 414.00 and CHF (congestive heart failure) 428.0 [facility] [id number] [place] [address] 47703- 5727 Oct, [facility] [id number] [place] [address] 18373- 5417 Oct, [facility] [id number] [place] [address] 56946- 3432 Oct, [facility] [id number] [place] [address] 829402- 3559 Sep, [facility] [id number] [place] [address] 92297- 0440 Sep, [facility] [id number] [place] [address] 07677- 7955 Sep, [facility] [id number] [place] [address] 18644- 3477 Sep, [facility] [address], [place] [address]- 9881 Aug, [facility] [id number] [place] [address] 76653- 8684 Aug, [facility] [address], [place] [address]- 3258 Aug, [facility] [id number] [address]- 3605 Aug, [facility] [address] [address]- 2006 Aug, [facility] [id number] [place] [address] 91685- 2489 Aug, [facility] [place] [facility] [address] [id number] [place] [address]- 7854 Aug, [facility] [place] [facility] [address] [id number] [place] [address]- 1530 Aug, [facility] [place] [facility] [address] [id number] [place] [address]- 3618 Jul, [facility] [place] [facility] [address] [id number] [place] [address]- 7831 Jul, [facility] [place] [facility] [address] [id number] [place] [address]- 7275 Jul, [facility] [place] [facility] [address] [id number] [place] [address]- 4235 Jul, [facility] [place] [facility] [address] [id number] [place] [address]- 0560 Jul, [facility] [place] [facility] [address] [id number] [place] [address]- 5750 Jul, [facility] [place] [facility] [address] [id number] [place] [address]- 5639 Jul, [facility] [place] [facility] [address] [facility] [id number] [place] [address]- 0515 Jul, [facility] [place] [facility] [address] [id number] [place] [address]- 6675 Jul, [facility] [place] [facility] [address] [id number] [place] [address]- 3555 Jul, [facility] [place] [facility] [address] [id number] [place] [address]- 0476 Jun, [facility] [place] [facility] [address] [id number] [place] 6193 Jun, [facility] [place] [facility] [address] [id number] [place] [address]- 8746 Jun, [facility] [place] [facility] [address] [id number] [place] [address]- 5244 Jun, [facility] [place] [facility] [address] [id number] [place] [address]- 2176 Jun, [facility] [place] [facility] [address] [id number] [place] [address]- 7062 Jun, [facility] [place] [facility] [address] [id number] [place] [address]- 9356 Jun, [facility] [place] [facility] [address] [id number] [place] [address]- 5447 Jun, [facility] [place] [facility] [address] [id number] [place] [address]- 7482 Jun, [facility] [place] [facility] [address] [id number] [place] [address]- 2995 Jun, [facility] [place] [facility] [address] [id number] [place] [address]- 5216 May, [facility] [place] [facility] [address] [id number] [place] [address]- 9279 May, [facility] [place] [facility] [address] [id number] [place] [address]- 3447 Mar, [facility] [place] [facility] [address] [id number] [place] [address]- 9789 18 Mar, 2014 [facility] [place] [facility] [address] [id number] [place] [address]- 9229 Mar, [facility] [place] [facility] [address] [id number] [place] [address]- 4137 Mar, [facility] [place] [facility] [address] [id number] [place] [address]- 0790 Feb, [facility] [place] [facility] [address] [id number] [place] [address] Feb, [facility] [place] [facility] [address] [id number] [place] [address] Feb, [facility] [place] [facility] [address] [id number] [place] [address] Jan, [facility] [place] [facility] [address] [id number] [place] [address] Jan, [facility] [place] [facility] [address] [id number] [place] [address] Jan, [facility] [place] [facility] [address] [id number] [place] [address] Jan, [facility] [place] [facility] [address] [id number] [place] [address] Jan, [facility] [place] [facility] [address] [id number] [place] [address] Jan, [facility] [place] [facility] [address] [id number] [place] [address] Jan, [facility] [place] [facility] [address] [id number] [place] [address] Jan, [facility] [place] [facility] [address] [id number] [place] [address] Jan, [facility] [place] [facility] [address] [id number] [place] [address] 1987 Jan, [facility] [place] [facility] [address] [id number] [place] [address] Dec, [facility] [place] [facility] [address] [id number] [place] [address] Dec, [facility] [place] [facility] [address] [id number] [place] [address] November, [facility] [place] [facility] [address] [id number] [place] [address] November, [facility] [place] [facility] [address] [id number] [place] [address] November, [facility] [place] [facility] [address] [id number] [place] [address] 8[address] November, [facility] [address] [id number] [place] [address] November, [facility] [address] [id number] [place] [address] November, [facility] [address] [id number] [place] [address] 7310 November, [facility] [address] [id number] [place] [address] Oct, [facility] [address] [id number] [place] [address] 0031 Oct, [facility] [address] [id number] [place] [address] 9348 Sep, [facility] [address] [id number] [place] [address] 0556 Sep, [facility] [address] [id number] [place] [address] 1523 Sep, [facility] [address] [id number] [place] [address] 1332 Sep, [facility] [address] [id number] [place] [address] 8698 Sep, [facility] [place] [facility] [address] [id number] [place] [address] 269[address] Sep, [facility] [place] [facility] [address] [id number] [place] [address] 54[address] Sep, [facility] [place] [facility] [address] [id number] [place] [address]- 7364 Sep, [facility] [place] [facility] [address] [id number] [place] [address] 1646 Sep, [facility] [place] [facility] [address] [id number] [place] [address] 6227 Sep, [facility] [address] [id number] [place] [address] 1244 Aug, [facility] [place] [facility] [address] [id number] [place] [address] 8036 Aug, [facility] [place] [facility] [address] [id number] [place] [address]- 8741 Jul, [facility] [place] [facility] [address] [id number] [place] [address]- 8627 Jul, [facility] [place] [facility] [address] [id number] [place] [address]- 4785 Jul, [facility] [place] [facility] [address] [id number] [place] [address]- 5399 Jul, [facility] [place] [facility] [address] [id number] [place] [address]- 2095 Jul, [facility] [place] [facility] [address] [id number] [place] [address]- 7686 Jul, [facility] [place] [facility] [address] [id number] [place] [address]- 3169 Jun, [facility] [place] [facility] [address] [id number] [place] [address]- 7776 Jun, [facility] [place] [facility] [address] [id number] [place] [address]- 7514 Jun, [facility] [place] [facility] [address] [id number] [address] 9[address] Jun, [facility] [place] [facility] [address] [id number] [place] [address]- 5667 May, [facility] [place] [facility] [address] [id number] [place] [address]- 0706 May, [facility] [place] [facility] [address] [id number] [place] [address]- 8752 May, [facility] [place] [facility] [address] [id number] [place] [address]- 6193 May, [facility] [place] [facility] [address] [id number] [place] [address]- 6318 May, [facility] [place] [facility] [address] [id number] [place] [address]- 5591 Apr, 2012 [facility] [place] [facility] [address] [id number] [place] [address]- 5920 Apr, [facility] [place] [facility] [address] [id number] [place] [address]- 5590 Apr, [facility] [place] [facility] [address] [id number] [place] [address] Apr, [facility] [place] [facility] [address] [id number] [place] [address]- 6189 Apr, [facility] [place] [facility] [address] [id number] [place] [address]- 0762 Apr, [facility] [place] [facility] [address] [id number] [place] [address]- 3846 Apr, [facility] [place] [facility] [address] [id number] [place] [address]- 4967 Apr, [facility] [place] [facility] [address] [id number] [place] [address]- 9556 Apr, [facility] [place] [facility] [address] [id number] [place] [address]- 3246 Apr, [facility] [place] [facility] [address] [id number], [place] [address] 8803 Apr, [facility] [place] [facility] [address] [id number] [place] [address]- 1063 Apr, [facility] [place] [facility] [address] [id number], [place] [address] 0914 Mar, [facility] [place] [facility] [address] [id number], [place] [address]- 4125 20 Mar, 2013 [facility] [place] [facility] [address] [id number] [place] [address]- 0574 Feb, [facility] [place] [facility] [address] [id number] [place] [address]- 3774 Jan, [facility] [place] [facility] [address] [id number] [place] [address]- 9123 Jan, [facility] [place] [facility] [address] [id number] [place] [address]- 6300 Jan, [facility] [place] [facility] [address] [id number] [place] [address]- 6723 Jan, [facility] [place] [facility] [address] [id number] [place] [address]- 0295 Dec, [facility] [place] [facility] [address] [id number] [place] [address]- 8348 Dec, [facility] [place] [facility] [address] [id number] [place] [address]- 5079 Dec, [facility] [place] [facility] [address] [id number] [place] [address]- 9280 Dec, [facility] [place] [facility] [address] [id number] [place] [address]- 6463 Dec, [facility] [place] [facility] [address] [id number] [place] [address]- 3896 Dec, [facility] [place] [facility] [address] [id number] [place] [address]- 3890 Dec, [facility] [place] [facility] [address] [id number] [place] [address]- 2526 November, [facility] [place] [facility] [address] [id number] [place] [address]- 0173 November, [facility] [place] [facility] [address] [id number] [place] [address]- 5851 November, [facility] [place] [facility] [address] [id number] [place] [address]- 7781 Oct, [facility] [address] [id number] [place] [address]- 5165 Oct, [facility] [address] [id number] [place] [address]- 8370 Oct, [facility] [address] [id number] [place] [address]- 4652 Oct, [facility] [place] [facility] [address] [id number] [place] [address]- 3219 Oct, [facility] [address] [id number] [place] [address]- 0331 Sep, [facility] [address] [id number] [place] [address]- 1964 Sep, [facility] [address] [id number] [place] [address]- 5653 Sep, [facility] [place] [facility] [address] [id number] [place] [address]- 8949 Sep, [facility] [address] [id number] [place] [address]- 5397 Aug, [facility] [place] [facility] [address] [id number] [place] [address]- 9534 Aug, [facility] [place] [facility] [address] [id number] [place] [address]- 3496 Aug, [facility] [place] [facility] [address] [id number], [place] [address] 2549 Aug, [facility] [place] [facility] [address] [id number] [place] [address]- 1456 Jul, [facility] [place] [facility] [address] [id number] [place] [address]- 7666 Jul, [facility] [place] [facility] [address] [id number] [place] [address]- 8946 Jun, [facility] [place] [facility] [address] [id number] [place] [address]- 6919 Jun, [facility] [place] [facility] [address] [id number] [place] [address]- 9732 Jun, [facility] [place] [facility] [address] [id number] [place] [address]- 0766 Jun, [facility] [place] [facility] [address] [id number] [place] [address]- 3287 May, [facility] [place] [facility] [address] [id number] [place] [address]- 1078 May, [facility] [place] [facility] [address] [id number] [place] [address]- 5902 May, [facility] [place] [facility] [address] [facility] [id number] [place] [address]- 8156 May, [facility] [place] [facility] [address] [facility] [id number] [place] [address]- 7436 Apr, [facility] [place] [facility] [address] [id number] [place] [address]- 5545 31 Apr, 2012 [facility] [place] [facility] [address] [facility] [id number] [place] [address]- 5565 31 Apr, 2012 [facility] [place] [facility] [address] [facility] [id number] [place] [address]- 1208 31 Apr, 2012 [facility] [place] [facility] [address] [facility] [id number] [place] [address]- 3573 30 Apr, 2012 [facility] [place] [facility] [address] [id number] [place] [address]- 8746 30 Apr, 2012 [facility] [place] [facility] [address] [id number] [place] [address]- 2369 Apr, [facility] [place] [facility] [address] [facility] [id number] [place] [address]- 5068 26 Apr, 2012 [facility] [place] [facility] [address] [facility] [id number] [place] [address] Apr, [facility] [place] [facility] [address] [id number] [place] [address]- 5814 Apr, [facility] [place] [facility] [address] [id number] [place] [address]- 6996 Feb, [facility] [place] [facility] [address] [id number] [place] [address]- 5959 Feb, [facility] [place] [facility] [address] [id number] [place] [address]- 1297 Jan, [facility] [place] [facility] [address] [id number] [place] [address]- 7223 Jan, [facility] [place] [facility] [address] [id number] [place] [address]- 3064 Jan, [facility] [place] [facility] [address] [id number] [place] [address]- 0839 Jan, [facility] [place] [facility] [address] [id number] [place] [address]- 1647 Jan, [facility] [place] [facility] [address] [id number] [place] [address]- 1798 Jan, [facility] [place] [facility] [address] [id number] [place] [address]- 9318 Dec, [facility] [place] [facility] [address] [id number] [place] [address]- 8702 November, [facility] [place] [facility] [address] [id number] [place] [address]- 1303 November, [facility] [place] [facility] [address] [id number] [place] [address]- 8056 November, [facility] [place] [facility] [address] [id number] [place] [address]- 9886 Sep, [facility] [place] [facility] [address] [id number] [place] [address]- 2463 Sep, [facility] [place] [facility] [address] [id number] [place] [address]- 9098 09 Sep, 2011 [facility] [place] [facility] [address] [id number] [place] [address]- 7162 08 Sep, 2011 [facility] [place] [facility] [address] [id number] [place] [address]- 5115 Sep, [facility] [place] [facility] [address] [id number] [place] [address]- 4216 Sep, [facility] [place] [facility] [address] [id number] [place] [address]- 7238 13 Aug, 2011 [facility] [place] [facility] [address] [id number] [place] [address]- 4919 Aug, [facility] [place] [facility] [address] [id number] [place] [address]- 1992 Aug, [facility] [place] [facility] [address] [id number] [place] [address]- 8899 Jul, [facility] [place] [facility] [address] [id number] [place] [address]- 7167 Jul, [facility] [place] [facility] [address] [id number] [place] [address]- 9289 Jul, [facility] [place] [facility] [address] [id number] [place] [address]- 1075 Jul, [facility] [place] [facility] [address] [id number] [place] [address]- 5184 Jun, [facility] [place] [facility] [address] [id number] [place] [address]- 1746 Jun, [facility] [place] [facility] [address] [id number] [place] [address]- 4819 Jun, [facility] [place] [facility] [address] [id number] [place] [address]- 5226 Jun, [facility] [place] [facility] [address] [id number] [place] [address]- 3195 Jun, [facility] [place] [facility] [address] [id number] [place] [address]- 5333 Jun, [facility] [place] [facility] [address] [id number] [place] [address]- 2657 May, [facility] [place] [facility] [address] [id number] [place] [address]- 2536 May, [facility] [place] [facility] [address] [id number] [place] [address]- 5287 May, [facility] [address] [id number] [place] [address]- 3291 Apr, [facility] [place] [facility] [address] [id number] [place] [address]- 2031 Jan, [facility] [address] [id number] [place] [address]- 6019 Jun, [facility] [address] [id number] [place] [address]- 1904 Jun, [facility] [address] [id number] [place] [address]- 8302 15 Jun, 2010 [facility] [place] [facility] [address] [id number] [place] [address]- 1546 15 Jun, 2010 [facility] [place] [facility] [address] [id number] [place] [address]- 1585 15 Jun, 2010 [facility] [place] [facility] [address] [id number] [place] [address]- 9661 13 Jun, 2010 [facility] [place] [facility] [address] [id number] [place] [address]- 2031 Jun, [facility] [place] [facility] [address] [id number] [place] [address]- 0591 Apr, [facility] [place] [facility] [address] [id number] [place] [address]- 6973 Feb, [facility] [place] [facility] [address] [id number], [place] [address]- 7172 15 Aug, 2009 [facility] [address] [id number] [place] [address]- 3460 18 Jul, 2009 [facility] [place] [facility] [address] [id number], [place] [address] 2546 Jul, [facility] [address] [id number] [place] [address]- 7286 29 Jun, 2009 [facility] [place] [facility] [address] [id number], [place] [address] 2549 Jun, [facility] [address] [id number] [place] [address]- 2390 Jun, [facility] [place] [facility] [address] [id number] [place] [address]- 6814 Jun, [facility] [address] [facility] [id number], [place] [address]- 9622 16 Jun, 2009 [facility] [place] [facility] [address] [id number] [place] [address]- 7997 Jun, [facility] [place] [facility] [address] [id number], [place] [address]- 0365 Jun, [facility] [place] [facility] [address] [id number], [place] [address]- 1441 30 May, 2009 [facility] [place] [facility] [address] [id number], [place] [address]- 2273 27 May, 2009 [facility] [place] [facility] [address] [id number], [place] [address]- 4987 23 May, 2009 [facility] [place] [facility] [address] [id number], [place] [address]- 0730 18 May, 2009 [facility] [place] [facility] [address] [id number], [place] [address]- 2967 May, [facility] [place] [facility] [address] [id number], [place] [address]- 0137 16 May, 2009 [facility] [place] [facility] [address] [facility] [id number] [place] [address]- 2546 May, [facility] [address] [facility] [id number] [place] [address]- 8166 Apr, [facility] [address] [facility] [id number], [place] [address]- 2546 Apr, [facility] [address] [facility] [id number], [place] [address]- 5327 Jan, [facility] [address] [facility] [id number], [place] [address]- 9156 Oct, IMMUNIZATIONS No Known Immunizations SOCIAL HISTORY Never Assessed REASON FOR VISIT refer to Dr Adkins for [place] PLAN OF CARE VITAL SIGNS MEDICATIONS Unknown [...]
--- OUTSIDE RECORDS SUMMARY | 2018-11-09 12:55 | XMS REPORT ---
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 Name Role Phone PRABHA HILL Unavailable PROBLEMS Type Condition ICD9-CM Code LAO53-KX Code Onset Dates Condition Status SNOMED Code Problem Hypoglycemia E16.2 Active 188046392 Problem Hallucinations R44.3 Active 3471576 Problem Unsteady gait R26.81 Active 85350160 Problem 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 Active [id number] Problem Dysuria R30.0 Active 74253551 Problem Anxiety F41.9 Active 06787092 Problem Dementia in other diseases classified elsewhere without behavioral disturbance F02.80 Active 634072884 Problem Other frontotemporal dementia G31.09 Active 292034321 Problem Parkinsons disease G20 Active 98371246 Problem Episodic cluster headache, not intractable G44.019 Active 371453089 Problem Neurogenic orthostatic hypotension G90.3 Active 743956836 Problem Mixed stress and urge urinary incontinence N39.46 Active 786845321 Problem 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 Active 386466773 Problem Essential hypertension I10 Active 71406219 Problem Type 2 diabetes mellitus with unspecified complications E11.8 Active 14588154 Problem PVD (peripheral vascular disease) I73.9 Active 511836652 Problem Dysthymia F34.1 Active 28854842 Problem Polydipsia R63.1 Active 45159417 Problem Coronary artery disease involving [place] coronary artery of [place] heart without angina pectoris I25.10 Active 2326498731732 Problem Hypothyroidism (acquired) E03.9 Active 506156246 Problem Hyperlipemia, mixed E78.2 Active 712082871 Problem Dementia with Lewy bodies G31.83 Active 235429096 Problem Neuropathy G62.9 Active 257070885 Problem Hypernatremia E87.0 Active 10766829 ALLERGIES No Information ENCOUNTERS Encounter Location Date Diagnosis [facility] [id number] [place] [address] 16617- 6495 Apr, [facility] [address] 34292- 6467 Mar, Left shoulder pain M25.512 [facility] [id number] [place] [address] 90753- 9986 Mar, [facility] [address] 95826- 5314 Mar, Hyperlipemia, mixed E78.2 ; Essential hypertension I10 and Coronary artery disease involving [place] coronary artery of [place] heart without angina pectoris I25.10 [facility] [place] [address] 95385- 0752 26 Mar, 2018 Type 2 diabetes mellitus with unspecified complications E11.8 [facility] [place] [address] 33135- 4322 17 Mar, 2018 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 [facility] [place] [address] 47856- 4100 Mar, [facility] [address] 82525- 4871 Mar, [facility] [id number] [place] [address] 30444- 7986 Mar, [facility] [id number] [place] [address] 36178- 6877 Mar, [facility] [id number] [place] [address] 96577- 2251 Mar, Cellulitis of left lower extremity L03.116 and Petechial rash R23.3 [facility] [place] [id number] [place] [address] 24345- 1861 Feb, Left shoulder pain M25.512 [facility] [id number] [place] [address] 11545- 3315 Feb, Left shoulder pain M25.512 [facility] [id number] [place] [address] 15607- 6934 Feb, 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 [facility] [place] [address] 93319- 4143 Jan, Left shoulder pain M25.512 [facility] [address] 66557- 5155 Dec, Parkinsons disease G20 [facility] [address] 59879- 6671 Dec, Left shoulder pain M25.512 [place] [address] 25781- 8036 Dec, Type 2 diabetes mellitus with unspecified complications E11.8 ; Anxiety F41.9 ; Therapeutic drug monitoring Z51.81 and Analgesic use Z79.899 [place] [address] 97689- 4150 November, [facility] [address] 05937- 1134 November, [place] [address] 96931- 2723 November, Left shoulder pain M25.512 [facility] [id number] [place] [address] 52442- 1505 Oct, [facility] [id number] [place] [address] 34110 -3383 Oct, [facility] [address] 47457- 5303 Oct, Parkinsons disease G20 [facility] [id number] [place] [address] 70412 -5060 Oct, Acute cystitis without hematuria N30.00 and Viral upper respiratory tract infection J06.9 [facility] [address] 41428- 8161 Oct, [place] [address] [address] 5114 Oct, Type 2 diabetes mellitus with unspecified complications E11.8 [facility] [place] [id number] [place] [address] 46346- 2164 Oct, Left shoulder pain M25.512 [facility] [place] [id number] [place] [address] 20332- 1569 Oct, Type 2 diabetes mellitus with unspecified complications E11.8 ; Dysuria R30.0 and Neurogenic orthostatic hypotension G90.3 [facility] [place] [address] 77985- 1890 Sep, Left shoulder pain M25.512 [facility] [id number] [place] [address] 70794- 0374 Sep, Medicare annual wellness visit, initial Z00.00 ; Parkinsons disease G20 ; Type 2 diabetes mellitus with unspecified complications E11.8 ; Essential hypertension I10 ; Coronary artery disease involving [place] coronary artery of [place] heart without angina pectoris I25.10 ; Hypothyroidism (acquired ) E03.9 ; PVD (peripheral vascular disease) I73.9 ; Dysthymia F34.1 ; Hyperlipemia, mixed E78.2 ; Neuropathy G62.9 ; Encounter for immunization Z23 ; Encounter for other screening for malignant neoplasm of breast Z12.39 and Mixed stress and urge urinary incontinence N39.46 [place] [id number] [place] [address] 94474- 5098 Aug, Parkinsons disease G20 [facility] [place] [id number] [place] [address] 94128- 0025 Aug, Type 2 diabetes mellitus with unspecified complications E11.8 ; Left shoulder pain M25.512 and Hypotensive episode I95.9 [place] [id number] [place] [address] 16299- 4896 Aug, Coronary artery disease involving [place] coronary artery of [place] heart without angina pectoris I25.10 [facility] [place] [id number] [place] [address] 04599- 8171 Aug, Type 2 diabetes mellitus with unspecified complications E11.8 [facility] [id number] [place] [address] 47741- 7058 Jul, Callus of foot L84 [address] 38601- 6892 Jul, [facility] [place] [address] 32076- 9959 Jul, Callus of foot L84 ; Episodic cluster headache, not intractable G44.019 ; Type 2 diabetes mellitus with unspecified complications E11.8 and Parkinsons disease G20 [facility] [place] [address] 76667- 5805 Jul, [address] 58840- 0816 Jul, [place] [address] 58152- 3157 Jun, Type 2 diabetes mellitus with unspecified complications E11.8 ; Unsteady gait R26.81 ; Forgetfulness R68.89 and Hallucinations R44.3 [id number] [place] [address] 71103- 3142 Jun, [address] 49051- 1243 Jun, Left shoulder pain M25.[address] 00115- 9505 13 May, 2017 Hypernatremia E87.0 and Polydipsia R63.1 [address] [id number] [place] [address] 76874- 0131 May, Hypernatremia E87.0 and Polydipsia R63.1 [facility] [place] [address] 15255- 8430 May, Hypoglycemia E16.2 ; Dysuria R30.0 ; Unsteadiness on feet R26.81 ; Forgetfulness R68.89 ; Type 2 diabetes mellitus with unspecified complications E11.8 and Yeast infection involving the vagina and surrounding area B37.3 [facility] [id number] [place] [address] 07656- 7675 May, Acute cystitis without hematuria N30.00 [facility] [id number] [place] [address] 776001 -9624 Apr, Dysuria R30.0 and Acute cystitis without hematuria N30.00 [place] [address] 661683- 2448 Apr, Hypernatremia E87.0 and Polydipsia R63.1 [place] [place] [id number] [place] [address] 80654- 2190 Apr, Vertigo R42 and Type 2 diabetes mellitus with unspecified complications E11.8 [facility] [place] [id number] [place] [address] 23515- 0688 Mar, [facility] [place] [address] 36917- 2821 19 Mar, 2017 Left shoulder pain M25.512 [facility] [place] [id number] [place] [address] 59019- 7748 Mar, Vertigo R42 [place] [id number] [place] [address] 36494- 9943 12 Mar, 2017 Polydipsia R63.1 [place] [place] [id number] [place] [address] 80835- 9128 Mar, Polydipsia R63.1 [facility] [place] [id number] [place] [address] 67527- 2904 11 Mar, 2017 Vertigo R42 [place] [place] [id number] [place] [address] 85410- 9468 07 Mar, 2017 Type 2 diabetes mellitus with unspecified complications E11.8 ; Vertigo R42 ; Polydipsia R63.1 ; Polyuria R35.8 ; Hypothyroidism ( acquired) E03.9 ; Abnormal urinalysis R82.90 and Dysthymia F34.1 [facility] [id number] [place] [address] 70417- 6937 05 Mar, 2017 Coronary artery disease of [place] artery with stable angina pectoris, unspecified whether [place] or transplanted heart I25.118 ; Systolic CHF, chronic I50.22 ; Hyperlipemia, mixed E78.2 and Essential hypertension I10 [facility] [address] [id number] Feb, Dental caries K02.9 [facility] [address] 64630- 9549 Feb, Type 2 diabetes mellitus with diabetic neuropathy, unspecified E11.40 [facility] [address] 67962- 0514 Dec, Left shoulder pain M25.512 [facility] [address] 82346- 6067 Dec, [facility] [id number] [place] [address] 68528- 5309 Dec, Type 2 diabetes mellitus with unspecified complications E11.8 [facility] [id number] [place] [address] [id number] Dec, Dental examination Z01.20 [facility] [id number] [place] [address] 58296- 8811 08 Dec, 2016 Type 2 diabetes mellitus with diabetic neuropathy, unspecified E11.40 [facility] [address] 38712- 9292 07 Dec, 2016 [facility] [id number] [place] [address] 92396- 2528 06 Dec, 2016 Type 2 diabetes mellitus with diabetic neuropathy, unspecified E11.40 [facility] [id number] [place] [address] 64150- 7689 November, Left shoulder pain M25.512 [place] [address] 63740- 5784 November, [place] [address] 55865- 2925 November, Type 2 diabetes mellitus with unspecified complications E11.8 and Dysuria R30.0 [place] [address] 04199- 1347 Oct, Left shoulder pain M25.512 [place] [address] 41219- 0474 Sep, Left shoulder pain M25.512 [place] [address] 94493- 5001 Sep, Pre-op testing Z01.818 [place] [address] 20164- 6477 Sep, Pre-op testing Z01.818 [place] [address] 10514- 9166 Sep, Pre-op testing Z01.818 [place] [place] [id number] [place] [address] 91913- 3634 Sep, Pre-op testing Z01.818 and Mouth pain K13.79 [place] [id number] [place] [address] 39189- 7196 Sep, Left shoulder pain M25.512 [place] [address] 32950- 1487 Aug, Other eczema L30.8 [place] [address] 14343- 5510 06 Aug, 2016 PVD (peripheral vascular disease) I73.9 ; Type 2 diabetes mellitus with unspecified complications E11.8 ; Acute cystitis with hematuria N30.01 ; Other eczema L30.8 ; Dysuria R30.0 and Left shoulder pain M25.512 [facility] [address] 63075 -0520 Jul, Otalgia of right ear H92.01 and Blood in ear canal, right H92.21 [place] [address] 42805- 2740 Jul, Arthralgia, unspecified joint M25.50 ; PVD (peripheral vascular disease) I73.9 and Neuropathy G62.9 [place] [address] 91167- 2285 Jul, [place] [address] 07155- 9233 Jun, Medicare annual wellness visit, initial Z00.00 ; Cervicalgia M54.2 ; Radiculopathy of cervical region M54.12 ; Encounter for immunization Z23 ; Type 2 diabetes mellitus with unspecified complications E11.8 and Essential hypertension I10 [place] [id number] [place] [address] 17391- 3934 Jun, [place] [address] 83486- 6093 14 May, 2016 Hypothyroidism (acquired) E03.9 [place] [address] 42651- 0361 10 May, 2016 Dysuria R30.0 ; Essential hypertension I10 ; Hypothyroidism (acquired) E03.9 and PVD (peripheral vascular disease) I73.9 [facility] [id number] [place] [address] 03033 -6703 03 May, 2016 Burning with urination R30.0 and Acute cystitis with hematuria N30.01 [place] [address] 69887- 3658 May, Dental examination Z01.20 [place] [address] 72456- 3771 May, Hypothyroidism (acquired) E03.9 [facility] [address] [address]- 7792 Feb, [facility] [id number] [place] [address] 51576 2546 Feb, 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 ; PVD ( peripheral vascular disease) I73.9 ; Type 2 diabetes mellitus with unspecified complications E11.8 and Essential hypertension I10 [facility] [id number] [place] [address] 49895- 0768 Jan, [facility] [id number] [place] [address] 30746- 6246 Jan, Hypothyroidism (acquired) E03.9 [facility] [id number] [address]- 6857 Jan, [facility] [address] [address]- 0187 Jan, [facility] [address] [address]- 2273 Jan, Type 2 diabetes mellitus with unspecified complications E11.8 ; 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 and Essential ( primary) hypertension I10 [facility] [address] [address]- 0014 Jan, Type 2 diabetes mellitus with unspecified complications E11.8 ; 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 ; Essential hypertension I10 and PVD (peripheral vascular disease) I73.9 [facility] [address] [address]- 9376 Jan, [facility] [address] [address]- 5195 Jan, [facility] [address] [address]- 2629 Jan, [place] [id number] [place] [address] 44249- 0196 Jan, Weakness R53.1 ; Fatigue, unspecified type R53.83 ; PVD ( peripheral vascular disease) I73.9 ; Acute osteomyelitis of other site M86.18 ; Type 2 diabetes mellitus with diabetic neuropathy, unspecified E11.40 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 [place] [id number] [place] [address] 38457- 6954 30 Dec, 2015 [place] [id number] [place] [address] 87508- 3067 Dec, Type 2 diabetes mellitus with unspecified complications E11.8 [place] [address] 47534- 2931 Dec, [place] [id number] [place] [address] 80703- 0285 Dec, Pressure ulcer, unspecified pressure ulcer stage L89.90 and Type 2 diabetes mellitus with unspecified complications E11.8 [facility] [id number] [place] [address] 97695 -2626 Dec, Toe infection L08.9 [place] [id number] [place] [address] 24832- 9010 November, Dental caries K02.9 [facility] [place] [id number] [place] [address] 35617- 5351 November, [place] [id number] [place] [address] 24785- 1759 November, Dental examination Z01.20 [facility] [place] [id number] [place] [address] 79823- 4473 Sep, Lipoma of torso D17.1 and Thoracic neuritis M54.14 [place] [id number] [place] [address] 32185- 1345 Sep, [place] [address] 41007- 1241 Aug, [facility] [id number] [place] [address] 09150 -6595 Jul, Dysuria R30.0 and UTI (urinary tract infection) N39.0 [facility] [id number] [place] [address] 83299- 5593 Jun, Left shoulder pain M25.512 [facility] [id number] [place] [address] 86516- 8211 May, Shoulder pain, left M25.512 [facility] [id number] [place] [address] 43538- 2508 May, [facility] [id number] [place] [address] 97851- 2101 May, [facility] [id number] [place] [address] 80403- 4290 May, Left shoulder pain M25.512 [facility] [id number] [place] [address] 78676- 5062 May, [facility] [id number] [place] [address] 21319- 6389 Apr, Encounter for immunization Z23 [place] [id number] [place] [address] 88626- 5750 Apr, Urinary tract infection, site not specified N39.0 ; Hypotension, unspecified I95.9 ; Type 2 diabetes mellitus with unspecified complications E11.8 and Generalized edema R60.1 [place] [address] [place] [address] 49407- 8130 Apr, [facility] [id number] [place] [address] 89720- 4435 Mar, Diabetes with other specified manifestations, type II or unspecified type, not stated as uncontrolled 250.80 [place] [id number] [place] [address] 57855- 7931 Feb, Gout 274.9 and Diabetes 250.00 [facility] [id number] [address]- 9589 Jan, [facility] [id number] [place] [address] 113258- 9906 November, CAD (coronary artery disease) 414.00 and CHF (congestive heart failure) 428.0 [facility] [id number] [place] [address] 89064- 3942 Oct, [facility] [id number] [place] [address] 06180- 0289 Oct, [facility] [id number] [place] [address] 41702- 0011 Oct, [facility] [id number] [place] [address] 899177- 6418 Sep, [facility] [id number] [place] [address] 04721- 1978 Sep, [facility] [id number] [place] [address] 97224- 2298 Sep, [facility] [id number] [place] [address] 33076- 0763 Sep, [facility] [address] [address]- 2677 Aug, [facility] [id number] [place] [address] 85772- 2095 Aug, [facility] [address] [address]- 1475 Aug, [facility] [id number] [address]- 7810 Aug, [facility] [address] [address]- 3768 Aug, [facility] [id number] [place] [address] 30222- 2971 Aug, [facility] [place] [facility] [address] [id number] [place] [address]- 5804 Aug, [facility] [place] [facility] [address] [id number] [place] [address]- 9654 Aug, [facility] [place] [facility] [address] [id number] [place] [address]- 4272 Jul, [facility] [place] [facility] [address] [id number] [place] [address]- 1696 Jul, [facility] [place] [facility] [address] [id number] [place] [address]- 1547 Jul, [facility] [place] [facility] [address] [id number] [place] [address]- 5011 Jul, [facility] [place] [facility] [address] [id number] [place] [address]- 3964 Jul, [facility] [place] [facility] [address] [id number] [place] [address]- 5632 Jul, [facility] [place] [facility] [address] [id number] [place] [address]- 4801 Jul, [facility] [place] [facility] [address] [facility] [id number] [place] [address]- 6272 Jul, [facility] [place] [facility] [address] [id number] [place] [address]- 4585 Jul, [facility] [place] [facility] [address] [id number] [place] [address]- 3859 Jul, [facility] [place] [facility] [address] [id number] [place] [address]- 0237 Jun, [facility] [place] [facility] [address] [id number] [place] 7537 Jun, [facility] [place] [facility] [address] [id number] [place] [address]- 8132 Jun, [facility] [place] [facility] [address] [id number] [place] [address]- 4597 Jun, [facility] [place] [facility] [address] [id number] [place] [address]- 4785 Jun, [facility] [place] [facility] [address] [id number] [place] [address]- 9382 Jun, [facility] [place] [facility] [address] [id number] [place] [address]- 4638 Jun, [facility] [place] [facility] [address] [id number] [place] [address]- 9415 Jun, [facility] [place] [facility] [address] [id number] [place] [address] Jun, [facility] [place] [facility] [address] [id number] [place] [address] Jun, [facility] [place] [facility] [address] [id number] [place] [address] May, [facility] [place] [facility] [address] [id number] [place] [address] May, [facility] [place] [facility] [address] [id number] [place] [address] Mar, [facility] [place] [facility] [address] [id number] [place] [address] 18 Mar, 2014 [facility] [place] [facility] [address] [id number] [place] [address] Mar, [facility] [place] [facility] [address] [id number] [place] [address] Mar, [facility] [place] [facility] [address] [id number] [place] [address] Feb, [facility] [place] [facility] [address] [id number] [place] [address] Feb, [facility] [place] [facility] [address] [id number] [place] [address] Feb, [facility] [place] [facility] [address] [id number] [place] [address] Jan, [facility] [place] [facility] [address] [id number] [place] [address] Jan, [facility] [place] [facility] [address] [id number] [place] [address] Jan, [facility] [place] [facility] [address] [id number] [place] [address] Jan, [facility] [place] [facility] [address] [id number] [place] [address] Jan, [facility] [place] [facility] [address] [id number] [place] [address] Jan, [facility] [place] [facility] [address] [id number] [place] [address] 0[address] Jan, [facility] [place] [facility] [address] [id number] [place] [address] 8[address] Jan, [facility] [place] [facility] [address] [id number] [place] [address]- 6747 Jan, [facility] [place] [facility] [address] [id number] [place] [address] 95[address] Jan, [facility] [place] [facility] [address] [id number] [place] [address]- 89[address] Dec, [facility] [place] [facility] [address] [id number] [place] [address]- 5476 Dec, [facility] [place] [facility] [address] [id number] [place] [address]- 3691 November, [facility] [place] [facility] [address] [id number] [place] [address]- 2493 November, [facility] [place] [facility] [address] [id number] [place] [address]- 6910 November, [facility] [place] [facility] [address] [id number] [place] [address]- 3679 November, [facility] [address] [id number] [place] [address]- 1014 November, [facility] [address] [id number] [place] [address] November, [facility] [address] [id number] [place] [address]- 2948 November, [facility] [address] [id number] [place] [address]- 5125 Oct, [facility] [address] [id number] [place] [address]- 5842 Oct, [facility] [address] [id number] [place] [address]- 1581 Sep, [facility] [address] [id number] [place] [address] 1971 Sep, [facility] [address] [id number] [place] [address]- 6029 Sep, [facility] [address] [id number] [place] [address]- 6506 Sep, [facility] [address] [id number] [place] [address]- 2963 Sep, [facility] [place] [facility] [address] [id number] [place] [address]- 7651 Sep, [facility] [place] [facility] [address] [id number] [place] [address]- 9577 Sep, [facility] [place] [facility] [address] [id number] [place] [address]- 5381 Sep, [facility] [place] [facility] [address] [id number] [place] [address]- 1516 Sep, [facility] [place] [facility] [address] [id number] [place] [address]- 0774 Sep, [facility] [address] [id number] [place] [address]- 9863 Aug, [facility] [place] [facility] [address] [id number] [place] [address]- 7976 Aug, [facility] [place] [facility] [address] [id number] [place] [address]- 8923 Jul, [facility] [place] [facility] [address] [id number] [place] [address]- 4722 Jul, [facility] [place] [facility] [address] [id number] [place] [address]- 3289 Jul, [facility] [place] [facility] [address] [id number] [place] [address]- 9081 Jul, [facility] [place] [facility] [address] [id number] [place] [address]- 4435 Jul, [facility] [place] [facility] [address] [id number] [place] [address]- 6524 Jul, [facility] [place] [facility] [address] [id number] [place] [address]- 4090 Jun, [facility] [place] [facility] [address] [id number] [place] [address]- 1190 Jun, [facility] [place] [facility] [address] [id number] [place] [address]- 9355 Jun, [facility] [place] [facility] [address] [id number], [place] [address] 8711 Jun, [facility] [place] [facility] [address] [id number] [place] [address]- 0174 May, [facility] [place] [facility] [address] [id number] [place] [address]- 5186 May, [facility] [place] [facility] [address] [id number] [place] [address]- 4420 May, [facility] [place] [facility] [address] [id number] [place] [address]- 6470 May, [facility] [place] [facility] [address] [id number] [place] [address]- 7529 May, [facility] [place] [facility] [address] [id number] [place] [address]- 7295 Apr, 2012 [facility] [place] [facility] [address] [id number] [place] [address]- 5043 Apr, [facility] [place] [facility] [address] [id number] [place] [address]- 0367 Apr, [facility] [place] [facility] [address] [id number] [place] [address] Apr, [facility] [place] [facility] [address] [id number] [place] [address]- 7818 Apr, [facility] [place] [facility] [address] [id number] [place] [address]- 8045 Apr, [facility] [place] [facility] [address] [id number] [place] [address]- 9305 Apr, [facility] [place] [facility] [address] [id number] [place] [address]- 4744 Apr, [facility] [place] [facility] [address] [id number] [place] [address]- 2576 Apr, [facility] [place] [facility] [address] [id number] [place] [address]- 3731 Apr, [facility] [place] [facility] [address] [id number], [place] [address] 9832 Apr, [facility] [place] [facility] [address] [id number] [place] [address]- 8753 Apr, [facility] [place] [facility] [address] [id number], [place] [address]- 7446 Mar, [facility] [place] [facility] [address] [id number], [place] [address]- 3147 20 Mar, 2013 [facility] [place] [facility] [address] [id number] [place] [address]- 2702 Feb, [facility] [place] [facility] [address] [id number] [place] [address]- 9602 Jan, [facility] [place] [facility] [address] [id number] [place] [address]- 4883 Jan, [facility] [place] [facility] [address] [id number] [place] [address]- 9744 Jan, [facility] [place] [facility] [address] [id number] [place] [address]- 2531 Jan, [facility] [place] [facility] [address] [id number] [place] [address]- 6068 Dec, [facility] [place] [facility] [address] [id number] [place] [address]- 5965 Dec, [facility] [place] [facility] [address] [id number] [place] [address]- 1124 Dec, [facility] [place] [facility] [address] [id number] [place] [address]- 4680 Dec, [facility] [place] [facility] [address] [id number] [place] [address]- 2918 Dec, [facility] [place] [facility] [address] [id number] [place] [address]- 3121 Dec, [facility] [place] [facility] [address] [id number] [place] [address]- 0999 Dec, [facility] [place] [facility] [address] [id number] [place] [address]- 6005 November, [facility] [place] [facility] [address] [id number] [place] [address]- 1495 November, [facility] [place] [facility] [address] [id number] [place] [address]- 2233 November, [facility] [place] [facility] [address] [id number] [place] [address]- 7438 Oct, [facility] [address] [id number] [place] [address]- 3762 Oct, [facility] [address] [id number] [place] [address]- 9911 Oct, [facility] [address] [id number] [place] [address]- 8621 Oct, [facility] [place] [facility] [address] [id number] [place] [address]- 8920 Oct, [facility] [address] [id number] [place] [address]- 8812 Sep, [facility] [address] [id number] [place] [address]- 6747 Sep, [facility] [address] [id number] [place] [address]- 5164 Sep, [facility] [place] [facility] [address] [id number] [place] [address]- 6007 Sep, [facility] [address] [id number] [place] [address]- 0967 Aug, [facility] [place] [facility] [address] [id number] [place] [address]- 0758 Aug, [facility] [place] [facility] [address] [id number] [place] [address]- 8256 Aug, [facility] [place] [facility] [address] [id number], [place] [address] 2541 Aug, [facility] [place] [facility] [address] [id number] [place] [address]- 7766 Jul, [facility] [place] [facility] [address] [id number] [place] [address]- 2566 Jul, [facility] [place] [facility] [address] [id number] [place] [address]- 4266 Jun, [facility] [place] [facility] [address] [id number] [place] [address]- 7991 Jun, [facility] [place] [facility] [address] [id number] [place] [address]- 8676 Jun, [facility] [place] [facility] [address] [id number] [place] [address]- 9526 Jun, [facility] [place] [facility] [address] [id number] [place] [address]- 2263 May, [facility] [place] [facility] [address] [id number] [place] [address]- 4795 May, [facility] [place] [facility] [address] [id number] [place] [address]- 8817 May, [facility] [place] [facility] [address] [facility] [id number] [place] [address]- 0274 May, [facility] [place] [facility] [address] [facility] [id number] [place] [address]- 3407 Apr, [facility] [place] [facility] [address] [id number] [place] [address]- 1271 31 Apr, 2012 [facility] [place] [facility] [address] [facility] [id number] [place] [address]- 0822 31 Apr, 2012 [facility] [place] [facility] [address] [facility] [id number] [place] [address]- 1140 31 Apr, 2012 [facility] [place] [facility] [address] [facility] [id number] [place] [address]- 2122 30 Apr, 2012 [facility] [place] [facility] [address] [id number] [place] [address]- 1018 30 Apr, 2012 [facility] [place] [facility] [address] [id number] [place] [address]- 2749 Apr, [facility] [place] [facility] [address] [facility] [id number] [place] [address]- 7480 26 Apr, 2012 [facility] [place] [facility] [address] [facility] [id number] [place] Apr, [facility] [place] [facility] [address] [id number] [place] [address]- 6925 Apr, [facility] [place] [facility] [address] [id number] [place] [address]- 2798 Feb, [facility] [place] [facility] [address] [id number] [place] [address]- 2493 Feb, [facility] [place] [facility] [address] [id number] [place] [address]- 0026 Jan, [facility] [place] [facility] [address] [id number] [place] [address]- 9179 Jan, [facility] [place] [facility] [address] [id number] [place] [address]- 4647 Jan, [facility] [place] [facility] [address] [id number] [place] [address]- 2066 Jan, [facility] [place] [facility] [address] [id number] [place] [address]- 3849 Jan, [facility] [place] [facility] [address] [id number] [place] [address]- 2218 Jan, [facility] [place] [facility] [address] [id number] [place] [address]- 5104 Dec, [facility] [place] [facility] [address] [id number] [place] [address]- 8814 November, [facility] [place] [facility] [address] [id number] [place] [address]- 2022 November, [facility] [place] [facility] [address] [id number] [place] [address]- 1184 November, [facility] [place] [facility] [address] [id number] [place] [address]- 8936 Sep, [facility] [place] [facility] [address] [id number] [place] [address]- 7315 Sep, [facility] [place] [facility] [address] [id number] [place] [address]- 1751 09 Sep, 2011 [facility] [place] [facility] [address] [id number] [place] [address]- 5131 08 Sep, 2011 [facility] [place] [facility] [address] [id number] [place] [address]- 8158 Sep, [facility] [place] [facility] [address] [id number] [place] [address]- 4065 Sep, [facility] [place] [facility] [address] [id number] [place] [address]- 4729 13 Aug, 2011 [facility] [place] [facility] [address] [id number] [place] [address]- 6511 Aug, [facility] [place] [facility] [address] [id number] [place] [address]- 0662 Aug, [facility] [place] [facility] [address] [id number] [place] [address]- 2350 Jul, [facility] [place] [facility] [address] [id number] [place] [address]- 6734 Jul, [facility] [place] [facility] [address] [id number] [place] [address]- 6757 Jul, [facility] [place] [facility] [address] [id number] [place] [address]- 2459 Jul, [facility] [place] [facility] [address] [id number] [place] [address]- 9995 Jun, [facility] [place] [facility] [address] [id number] [place] [address]- 9879 Jun, [facility] [place] [facility] [address] [id number] [place] [address]- 6902 Jun, [facility] [place] [facility] [address] [id number] [place] [address]- 1266 Jun, [facility] [place] [facility] [address] [id number] [place] [address]- 9712 Jun, [facility] [place] [facility] [address] [id number] [place] [address]- 1204 Jun, [facility] [place] [facility] [address] [id number] [place] [address]- 2769 May, [facility] [place] [facility] [address] [id number] [place] [address]- 7246 May, [facility] [place] [facility] [address] [id number] [place] [address]- 0448 May, [facility] [address] [id number] [place] [address]- 2942 Apr, [facility] [place] [facility] [address] [id number] [place] [address]- 5061 Jan, [facility] [address] [id number] [place] [address]- 4918 Jun, [facility] [address] [id number] [place] [address]- 8779 Jun, [facility] [address] [id number] [place] [address]- 5331 15 Jun, 2010 [facility] [place] [facility] [address] [id number] [place] [address]- 7892 15 Jun, 2010 [facility] [place] [facility] [address] [id number] [place] [address]- 5782 15 Jun, 2010 [facility] [place] [facility] [address] [id number] [place] [address]- 7181 13 Jun, 2010 [facility] [place] [facility] [address] [id number] [place] [address]- 7187 Jun, [facility] [place] [facility] [address] [id number] [place] [address]- 0918 Apr, [facility] [place] [facility] [address] [id number] [place] [address]- 7051 Feb, [facility] [place] [facility] [address] [id number], [place] [address]- 7678 15 Aug, 2009 [facility] [address] [id number] [place] [address]- 6081 18 Jul, 2009 [facility] [place] [facility] [address] [id number], [place] [address] 2546 Jul, [facility] [address] [id number] [place] [address]- 8846 29 Jun, 2009 [facility] [place] [facility] [address] [id number], [place] [address] 254 Jun, [facility] [address] [id number] [place] [address]- 8086 Jun, [facility] [place] [facility] [address] [id number] [place] [address]- 1117 Jun, [facility] [address] [facility] [id number], [place] [address]- 8361 16 Jun, 2009 [facility] [place] [facility] [address] [id number] [place] [address]- 0323 Jun, [facility] [place] [facility] [address] [id number], [place] [address]- 6715 Jun, [facility] [place] [facility] [address] [id number], [place] [address]- 5137 30 May, 2009 [facility] [place] [facility] [address] [id number], [place] [address]- 3806 27 May, 2009 [facility] [place] [facility] [address] [id number], [place] [address]- 8645 23 May, 2009 [facility] [place] [facility] [address] [id number], [place] [address]- 5115 18 May, 2009 [facility] [place] [facility] [address] [id number], [place] [address]- 3667 May, [facility] [place] [facility] [address] [id number], [place] [address]- 1649 16 May, 2009 [facility] [place] [facility] [address] [facility] [id number] [place] [address]- 2546 May, [facility] [address] [facility] [id number] [place] [address]- 3796 Apr, [facility] [address] [facility] [id number] [place] [address]- 2546 Apr, [facility] [address] [facility] [id number], [place] [address]- 4242 Jan, [facility] [address] [facility] [id number], [place] [address]- 2546 Oct, IMMUNIZATIONS No Known Immunizations SOCIAL HISTORY Never Assessed REASON FOR VISIT Follow up call PLAN OF CARE VITAL SIGNS MEDICATIONS Unknown [...]
--- OUTSIDE RECORDS SUMMARY | 2018-11-09 12:56 | XMS REPORT ---
Author Author PRABHA HILL [facility] Address [address] [place] [address] Care Team Providers Care Deputy Director Of Nursing Name Role Phone PRABHA HILL Unavailable PROBLEMS Type Condition ICD9-CM Code OML78-FK Code Onset Dates Condition Status SNOMED Code Problem Hypoglycemia E16.2 Active 362718025 Problem Hallucinations R44.3 Active 0401852 Problem Unsteady gait R26.81 Active 52276558 Problem 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 Active 872027766460244 Problem Dysuria R30.0 Active 48885825 Problem Anxiety F41.9 Active 10713288 Problem Dementia in other diseases classified elsewhere without behavioral disturbance F02.80 Active 909421683 Problem Other frontotemporal dementia G31.09 Active 855699899 Problem Parkinsons disease G20 Active 24465367 Problem Episodic cluster headache, not intractable G44.019 Active 140038819 Problem Neurogenic orthostatic hypotension G90.3 Active 037307983 Problem Mixed stress and urge urinary incontinence N39.46 Active 825278639 Problem 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 Active 619623699 Problem Essential hypertension I10 Active 63370074 Problem Type 2 diabetes mellitus with unspecified complications E11.8 Active 37945182 Problem PVD (peripheral vascular disease) I73.9 Active 859599363 Problem Dysthymia F34.1 Active 39930687 Problem Polydipsia R63.1 Active 40529301 Problem Coronary artery disease involving [place] coronary artery of [place] heart without angina pectoris I25.10 Active 9236036539969 Problem Hypothyroidism (acquired) E03.9 Active 332076521 Problem Hyperlipemia, mixed E78.2 Active 046677598 Problem Dementia with Lewy bodies G31.83 Active 245582274 Problem Neuropathy G62.9 Active 865148883 Problem Hypernatremia E87.0 Active 44032872 ALLERGIES No Information ENCOUNTERS Encounter Location Date Diagnosis [facility] [id number] [place] [address] 03461- 6156 Apr, [facility] [id number] [place] [address] 31327- 9370 Mar, [facility] [id number] [place] [address] 92120- 3061 Mar, Hyperlipemia, mixed E78.2 ; Essential hypertension I10 and Coronary artery disease involving [place] coronary artery of [place] heart without angina pectoris I25.10 [facility] [id number] [place] [address] 25204- 5632 26 Mar, 2018 Type 2 diabetes mellitus with unspecified complications E11.8 [facility] [id number] [place] [address] 19098- 9884 17 Mar, 2018 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 [facility] [id number] [place] [address] 98211- 6130 Mar, [facility] [id number] [place] [address] 72753- 0153 Mar, [facility] [id number] [place] [address] 24375- 3923 Mar, [facility] [id number] [place] [address] 98065- 6141 Mar, [facility] [id number] [place] [address] 51016- 6754 Mar, Cellulitis of left lower extremity L03.116 and Petechial rash R23.3 [facility] [id number] [place] [address] 64799- 0608 Feb, Left shoulder pain M25.512 [facility] [id number] [place] [address] 93051- 6696 Feb, Left shoulder pain M25.512 [facility] [id number] [place] [address] 66913- 7401 Feb, 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 [facility] [id number] [place] [address] 59755- 8158 Jan, Left shoulder pain M25.512 [facility] [address] 01113- 1329 Dec, Parkinsons disease G20 [facility] [address] 03400- 3709 Dec, Left shoulder pain M25.512 [facility] [address] 89452- 0974 Dec, Type 2 diabetes mellitus with unspecified complications E11.8 ; Anxiety F41.9 ; Therapeutic drug monitoring Z51.81 and Analgesic use Z79.899 [facility] [address] 86673- 1403 November, [facility] [address] 78838- 8609 November, [facility] [address] 99053- 5403 November, Left shoulder pain M25.512 [facility] [address] 56089- 6025 Oct, [facility] [id number] [place] [address] 25386 -4052 Oct, [facility] [id number] [place] [address] 83184- 5447 Oct, Parkinsons disease G20 [facility] [id number] [place] [address] 98738 -9757 Oct, Acute cystitis without hematuria N30.00 and Viral upper respiratory tract infection J06.9 [facility] [id number] [place] [address] 51377- 9112 Oct, [facility] [address] 83104- 6038 Oct, Type 2 diabetes mellitus with unspecified complications E11.8 [facility] [id number] [place] [address] 39731- 3223 Oct, Left shoulder pain M25.512 [facility] [id number] [place] [address] 34389- 1983 Oct, Type 2 diabetes mellitus with unspecified complications E11.8 ; Dysuria R30.0 and Neurogenic orthostatic hypotension G90.3 [facility] [address] 36058- 0252 Sep, Left shoulder pain M25.512 [facility] [address] 62004- 2038 Sep, Medicare annual wellness visit, initial Z00.00 ; Parkinsons disease G20 ; Type 2 diabetes mellitus with unspecified complications E11.8 ; Essential hypertension I10 ; Coronary artery disease involving [place] coronary artery of [place] heart without angina pectoris I25.10 ; Hypothyroidism (acquired ) E03.9 ; PVD (peripheral vascular disease) I73.9 ; Dysthymia F34.1 ; Hyperlipemia, mixed E78.2 ; Neuropathy G62.9 ; Encounter for immunization Z23 ; Encounter for other screening for malignant neoplasm of breast Z12.39 and Mixed stress and urge urinary incontinence N39.46 [facility] [id number] [place] [address] 37241- 8242 Aug, Parkinsons disease G20 [facility] [id number] [place] [address] 46247- 6400 Aug, Type 2 diabetes mellitus with unspecified complications E11.8 ; Left shoulder pain M25.512 and Hypotensive episode I95.9 [facility] [id number] [place] [address] 99257- 1537 09 Aug, 2017 Coronary artery disease involving [place] coronary artery of [place] heart without angina pectoris I25.10 [facility] [id number] [place] [address] 63148- 8019 07 Aug, 2017 Type 2 diabetes mellitus with unspecified complications E11.8 [facility] [id number] [place] [address] 58022- 6590 Jul, Callus of foot L84 [facility] [address] 38637- 0685 Jul, [facility] [address] 27953- 0034 Jul, Callus of foot L84 ; Episodic cluster headache, not intractable G44.019 ; Type 2 diabetes mellitus with unspecified complications E11.8 and Parkinsons disease G20 [facility] [id number] [place] [address] 11750- 8563 Jul, [facility] [address] 66667- 7881 Jul, [facility] [address] 53873- 1317 Jun, Type 2 diabetes mellitus with unspecified complications E11.8 ; Unsteady gait R26.81 ; Forgetfulness R68.89 and Hallucinations R44.3 [facility] [address] 52684- 6102 Jun, [facility] [id number] [place] [address] 09213- 0802 Jun, Left shoulder pain M25.512 [facility] [id number] [place] [address] 19115- 7658 May, Hypernatremia E87.0 and Polydipsia R63.1 [facility] [id number] [place] [address] 65989- 7443 May, Hypernatremia E87.0 and Polydipsia R63.1 [facility] [id number] [place] [address] 82559- 0273 May, Hypoglycemia E16.2 ; Dysuria R30.0 ; Unsteadiness on feet R26.81 ; Forgetfulness R68.89 ; Type 2 diabetes mellitus with unspecified complications E11.8 and Yeast infection involving the vagina and surrounding area B37.3 [facility] [id number] [place] [address]- 6720 May, Acute cystitis without hematuria N30.00 [facility] [id number] [place] [address] 43156 -5861 28 Apr, 2017 Dysuria R30.0 and Acute cystitis without hematuria N30.00 [facility] [id number] [place] [address] 863174- 3984 05 Apr, 2017 Hypernatremia E87.0 and Polydipsia R63.1 [facility] [id number] [place] [address] 30266- 0725 02 Apr, 2017 Vertigo R42 and Type 2 diabetes mellitus with unspecified complications E11.8 [facility] [id number] [place] [address] 05843- 8501 20 Mar, 2017 [facility] [id number] [place] [address] 07140- 8858 19 Mar, 2017 Left shoulder pain M25.512 [facility] [address] 23831- 2302 13 Mar, 2017 Vertigo R42 [facility] [id number] [place] [address] 63229- 0855 Mar, Polydipsia R63.1 [facility] [id number] [place] [address] 16623- 1588 Mar, Polydipsia R63.1 [facility] [id number] [place] [address] 28128- 7417 11 Mar, 2017 Vertigo R42 [facility] [id number] [place] [address]- 5362 07 Mar, 2017 Type 2 diabetes mellitus with unspecified complications E11.8 ; Vertigo R42 ; Polydipsia R63.1 ; Polyuria R35.8 ; Hypothyroidism ( acquired) E03.9 ; Abnormal urinalysis R82.90 and Dysthymia F34.1 [facility] [id number] [place] [address] 63996- 1407 05 Mar, 2017 Coronary artery disease of [place] artery with stable angina pectoris, unspecified whether [place] or transplanted heart I25.118 ; Systolic CHF, chronic I50.22 ; Hyperlipemia, mixed E78.2 and Essential hypertension I10 [facility] [address] [id number] Feb, Dental caries K02.9 [facility] [address] 91677- 2498 Feb, Type 2 diabetes mellitus with diabetic neuropathy, unspecified E11.40 [facility] [id number] [place] [address] 96862- 0696 Dec, Left shoulder pain M25.512 [facility] [address] 18770- 1168 Dec, [facility] [id number] [place] [address] 18613- 2084 Dec, Type 2 diabetes mellitus with unspecified complications E11.8 [facility] [id number] [place] [address] [id number] Dec, Dental examination Z01.20 [facility] [id number] [place] [address] 62753- 5683 Dec, Type 2 diabetes mellitus with diabetic neuropathy, unspecified E11.40 [facility] [id number] [place] [address] 10994- 2641 Dec, [facility] [address] 66763- 5941 Dec, Type 2 diabetes mellitus with diabetic neuropathy, unspecified E11.40 [facility] [id number] [place] [address] 46494- 0496 November, Left shoulder pain M25.512 [facility] [id number] [place] [address] 68409- 8903 November, [facility] [id number] [place] [address] 44589- 0511 November, Type 2 diabetes mellitus with unspecified complications E11.8 and Dysuria R30.0 [facility] [address] 37512- 3237 Oct, Left shoulder pain M25.512 [facility] [address] 90767- 5310 Sep, Left shoulder pain M25.512 [facility] [address] 79531- 7927 Sep, Pre-op testing Z01.818 [facility] [address] 06931- 6420 Sep, Pre-op testing Z01.818 [facility] [id number] [place] [address] 80414- 0284 Sep, Pre-op testing Z01.818 [facility] [address] 92313- 0152 Sep, Pre-op testing Z01.818 and Mouth pain K13.79 [facility] [address] 80986- 9482 Sep, Left shoulder pain M25.512 [facility] [id number] [place] [address] 57752- 9128 Aug, Other eczema L30.8 [facility] [address] 82582- 9829 06 Aug, 2016 PVD (peripheral vascular disease) I73.9 ; Type 2 diabetes mellitus with unspecified complications E11.8 ; Acute cystitis with hematuria N30.01 ; Other eczema L30.8 ; Dysuria R30.0 and Left shoulder pain M25.512 [facility] [address] 55409 -7651 23 Jul, 2016 Otalgia of right ear H92.01 and Blood in ear canal, right H92.21 [place] [facility] [address] 32338- 0260 Jul, Arthralgia, unspecified joint M25.50 ; PVD (peripheral vascular disease) I73.9 and Neuropathy G62.9 [facility] [address] 55016- 8904 Jul, [facility] [facility] [address] 18914- 7642 Jun, Medicare annual wellness visit, initial Z00.00 ; Cervicalgia M54.2 ; Radiculopathy of cervical region M54.12 ; Encounter for immunization Z23 ; Type 2 diabetes mellitus with unspecified complications E11.8 and Essential hypertension I10 [facility] [address] 69425- 9735 Jun, [facility] [address] 88515- 0123 14 May, 2016 Hypothyroidism (acquired) E03.9 [facility] [address] 16137- 2375 10 May, 2016 Dysuria R30.0 ; Essential hypertension I10 ; Hypothyroidism (acquired) E03.9 and PVD (peripheral vascular disease) I73.9 [facility] [address] 27769 -1939 03 May, 2016 Burning with urination R30.0 and Acute cystitis with hematuria N30.01 [facility] [address] 76502- 3247 May, Dental examination Z01.20 [facility] [address] 15509- 7380 May, Hypothyroidism (acquired) E03.9 [place] [address] 54411- 8798 Feb, [facility] [address] [place] [address] 94761- 1528 Feb, 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 ; PVD ( peripheral vascular disease) I73.9 ; Type 2 diabetes mellitus with unspecified complications E11.8 and Essential hypertension I10 [facility] [id number] [place] [address] 71223- 6123 Jan, [facility] [id number] [place] [address] 35283- 9510 Jan, Hypothyroidism (acquired) E03.9 [facility] [id number] [place] [address] 81667- 4048 Jan, [facility] [id number] [place] [address] 79646- 8169 Jan, [facility] [id number] [place] [address] 25354- 0280 Jan, Type 2 diabetes mellitus with unspecified complications E11.8 ; 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 and Essential ( primary) hypertension I10 [facility] [id number] [place] [address] 79293- 0619 Jan, Type 2 diabetes mellitus with unspecified complications E11.8 ; 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 ; Essential hypertension I10 and PVD (peripheral vascular disease) I73.9 [facility] [address] [address]- 9558 Jan, [facility] [address] [place] [address]- 4645 Jan, [facility] [id number] [place] [address] 06459- 0398 Jan, [facility] [facility] [address] [address]- 6728 Jan, Weakness R53.1 ; Fatigue, unspecified type R53.83 ; PVD ( peripheral vascular disease) I73.9 ; Acute osteomyelitis of other site M86.18 ; Type 2 diabetes mellitus with diabetic neuropathy, unspecified E11.40 and halfway 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.4 [facility] [id number] [place] [address] 42321- 5501 30 Dec, 2015 [facility] [address] 89475- 4545 Dec, Type 2 diabetes mellitus with unspecified complications E11.8 [facility] [facility] [address] 32915- 4144 Dec, [place] [facility] [address] 61593- 8218 Dec, Pressure ulcer, unspecified pressure ulcer stage L89.90 and Type 2 diabetes mellitus with unspecified complications E11.8 [facility] [address] 49727 -7495 Dec, Toe infection L08.9 [facility] [address] 44216- 2879 November, Dental caries K02.9 [facility] [address] 92891- 6995 November, [facility] [id number] [place] [address] 20571- 0100 November, Dental examination Z01.20 [facility] [address] 63818- 7114 Sep, Lipoma of torso D17.1 and Thoracic neuritis M54.14 [facility] [facility] [address] 49067- 5744 Sep, [facility] [facility] [id number] [place] [address] 32238- 7130 08 Aug, 2015 [facility] [address] 99954 -8780 Jul, Dysuria R30.0 and UTI (urinary tract infection) N39.0 [facility] [id number] [place] [address] 69675- 3579 Jun, Left shoulder pain M25.512 [facility] [id number] [place] [address] 20229- 6741 May, Shoulder pain, left M25.512 [place] [address] 38768- 7251 May, [facility] [facility] [address] 80689- 4130 May, [place] [address] 49652- 0183 May, Left shoulder pain M25.512 [place] [address] 38778- 3677 May, [facility] [id number] [place] [address] 89817- 3560 Apr, Encounter for immunization Z23 [place] [address] 53351- 4371 Apr, Urinary tract infection, site not specified N39.0 ; Hypotension, unspecified I95.9 ; Type 2 diabetes mellitus with unspecified complications E11.8 and Generalized edema R60.1 [facility] [id number] [place] [address] 23321- 7755 Apr, [facility] [facility] [id number] [place] [address] 01247- 5044 Mar, Diabetes with other specified manifestations, type II or unspecified type, not stated as uncontrolled 250.80 [place] [id number] [place] [address] 49164- 9579 Feb, Gout 274.9 and Diabetes 250.00 [place] [address] 57112- 5610 Jan, [facility] [address] [facility] [id number] [address]- 4828 November, CAD (coronary artery disease) 414.00 and CHF (congestive heart failure) 428.0 [facility] [address] [id number] [place] [address]- 3020 Oct, [facility] [address] [facility] [id number] [place] [address]- 2942 Oct, [facility] [address] [id number] [place] [address]- 2185 Oct, [facility] [id number] [place] [address], [place] [address]- 1991 Sep, [facility] [address] [place] [address]- 6242 Sep, [facility] [id number] [place] [address], [place] [address]- 3586 Sep, [facility] [id number] [place] [address]- 9043 Sep, [facility] [address] [place] [address]- 4401 Aug, [facility] [address] [address]- 7990 Aug, [facility] [address] [place] [address]- 5547 Aug, [facility] [address] [facility] [id number], [place] [address]- 1260 Aug, [facility] [address] [place] [address]- 5514 Aug, [facility] [address] [facility] [id number], [place] [address]- 7974 Aug, [facility] [address], [place] [address]- 6779 Aug, [facility] [place] [facility] [address] [id number] [place] [address]- 7863 Aug, [facility] [place] [facility] [address] [id number] [place] [address]- 7115 Jul, [facility] [place] [facility] [address] [id number] [place] [address]- 6316 Jul, [facility] [place] [facility] [address] [id number] [place] [address]- 1715 Jul, [facility] [place] [facility] [address] [id number] [place] [address]- 2407 Jul, [facility] [place] [facility] [address] [id number] [place] [address]- 2144 Jul, [facility] [place] [facility] [address] [id number] [place] [address]- 2052 Jul, [facility] [place] [facility] [address] [id number] [place] [address]- 6390 Jul, [facility] [place] [facility] [address] [id number] [place] [address]- 2268 Jul, [facility] [place] [facility] [address] [id number] [place] [address]- 2177 Jul, [facility] [place] [facility] [address] [id number], [place] [address]- 2392 Jul, [facility] [place] [facility] [address] [id number], [place] [address]- 4078 Jun, [facility] [place] [facility] [address] [id number] [place] [address]- 8546 Jun, [facility] [place] [facility] [address] [id number] [place] [address]- 7844 Jun, [facility] [place] [facility] [address] [id number] [place] [address]- 6584 Jun, [facility] [place] [facility] [address] [id number] [place] [address]- 8145 Jun, [facility] [place] [facility] [address] [id number] [place] [address]- 8706 Jun, [facility] [place] [facility] [address] [id number] [place] [address]- 5924 Jun, [facility] [place] [facility] [address] [id number] [place] [address]- 2315 Jun, [facility] [place] [facility] [address] [id number] [place] [address] Jun, [facility] [place] [facility] [address] [id number] [place] [address] Jun, [facility] [place] [facility] [address] [id number] [place] [address] May, [facility] [place] [facility] [address] [id number] [place] [address] May, [facility] [place] [facility] [address] [id number] [place] [address] Mar, [facility] [place] [facility] [address] [id number] [place] [address] Mar, [facility] [place] [facility] [address] [id number] [place] [address] Mar, [facility] [place] [facility] [address] [id number] [place] [address] Mar, [facility] [place] [facility] [address] [id number] [place] [address] Feb, [facility] [place] [facility] [address] [id number] [place] [address] Feb, [facility] [place] [facility] [address] [id number] [place] [address] Feb, [facility] [place] [facility] [address] [id number] [place] [address] Jan, [facility] [place] [facility] [address] [id number] [place] [address] Jan, [facility] [place] [facility] [address] [id number] [place] [address] Jan, [facility] [place] [facility] [address] [id number] [place] [address] Jan, [facility] [place] [facility] [address] [id number] [place] [address] Jan, [facility] [place] [facility] [address] [id number] [place] [address] Jan, [facility] [place] [facility] [address] [id number] [place] [address] Jan, [facility] [place] [facility] [address] [id number] [place] [address] 4239 Jan, [facility] [place] [facility] [address] [id number] [place] [address] 9612 Jan, [facility] [place] [facility] [address] [id number] [place] [address] 9754 Jan, [facility] [place] [facility] [address] [id number] [place] [address] 8056 Dec, [facility] [place] [facility] [address] [id number] [place] [address] 9230 Dec, [facility] [place] [facility] [address] [id number] [place] [address] 0598 November, [facility] [place] [facility] [address] [id number] [place] [address] 8410 November, [facility] [place] [facility] [address] [id number] [place] [address]- 6304 November, [facility] [place] [facility] [address] [id number] [place] [address] November, [facility] [place] [facility] [address] [id number] [place] [address]- 5574 November, [facility] [address] [id number] [place] [address] 4706 November, [facility] [place] [facility] [address] [id number] [place] [address]- 2703 November, [facility] [place] [facility] [address] [id number] [place] [address]- 3143 Oct, [facility] [place] [facility] [address] [id number] [place] [address]- 7979 Oct, [facility] [place] [facility] [address] [id number] [place] [address]- 0758 Sep, [facility] [place] [facility] [address] [id number] [place] [address]- 6415 Sep, [facility] [place] [facility] [address] [id number] [place] [address]- 6965 Sep, [facility] [place] [facility] [address] [id number] [place] [address]- 9604 Sep, [facility] [place] [facility] [address] [id number] [place] [address]- 1470 Sep, [facility] [place] [facility] [address] [facility] [id number] [place] [address]- 7316 Sep, [facility] [place] [facility] [address] [id number] [place] [address]- 2951 Sep, [facility] [place] [facility] [address] [id number] [place] [address]- 0042 Sep, [facility] [place] [facility] [address] [id number] [place] [address]- 9920 Sep, [facility] [place] [facility] [address] [id number] [place] [address]- 0853 Sep, [facility] [place] [facility] [address] [id number] [place] [address]- 3280 Aug, [facility] [place] [facility] [address] [id number] [place] [address]- 8768 Aug, [facility] [place] [facility] [address] [id number] [place] [address]- 6060 Jul, [facility] [place] [facility] [address] [id number] [place] [address]- 1501 Jul, [facility] [place] [facility] [address] [id number] [place] [address]- 1384 Jul, [facility] [place] [facility] [address] [id number] [place] [address]- 0204 Jul, [facility] [place] [facility] [address] [id number] [place] [address]- 6851 Jul, [facility] [place] [facility] [address] [id number] [place] [address]- 5751 Jul, [facility] [place] [facility] [address] [id number] [place] [address]- 4893 Jun, [facility] [place] [facility] [address] [id number] [place] [address]- 3057 Jun, [facility] [place] [facility] [address] [id number] [place] [address]- 9947 Jun, [facility] [place] [facility] [address] [id number] [place] [address]- 5513 Jun, [facility] [place] [facility] [address] [id number] [place] [address]- 3836 May, [facility] [place] [facility] [address] [id number] [place] [address]- 6920 May, [facility] [place] [facility] [address] [id number] [place] [address]- 4508 May, [facility] [place] [facility] [address] [id number] [place] [address]- 1534 May, [facility] [place] [facility] [address] [id number] [place] [address]- 5725 May, [facility] [place] [facility] [address] [id number] [place] [address]- 8312 Apr, [facility] [place] [facility] [address] [id number] [place] [address]- 7041 Apr, [facility] [place] [facility] [address] [id number] [place] [address]- 1947 Apr, [facility] [place] [facility] [address] [id number] [place] [address]- 9784 Apr, [facility] [place] [facility] [address] [id number] [place] [address]- 0342 Apr, [facility] [place] [facility] [address] [id number] [place] [address]- 3409 Apr, [facility] [place] [facility] [address] [id number] [place] [address]- 6122 Apr, [facility] [place] [facility] [address] [id number] [place] [address]- 3951 Apr, [facility] [place] [facility] [address] [id number] [place] [address]- 4975 Apr, [facility] [place] [facility] [address] [id number] [place] [address]- 4285 Apr, [facility] [place] [facility] [address] [id number], [place] [address]- 2149 Apr, [facility] [place] [facility] [address] [id number], [place] [address]- 9437 Apr, [facility] [place] [facility] [address] [id number] [place] [address]- 8914 Mar, [facility] [place] [facility] [address] [id number], [place] [address]- 8439 Mar, [facility] [place] [facility] [address] [id number] [place] [address] 2546 Feb, [facility] [place] [facility] [address] [id number] [place] [address]- 2231 Jan, [facility] [address] [id number] [place] [address]- 4739 Jan, [facility] [address] [id number] [place] [address]- 5786 Jan, [facility] [address] [id number] [place] [address]- 2515 Jan, [facility] [address] [id number] [place] [address]- 5831 Dec, [facility] [address] [id number] [place] [address]- 2824 Dec, [facility] [address] [id number] [place] [address]- 5638 Dec, [facility] [address] [id number] [place] [address]- 7981 Dec, [facility] [address] [id number] [place] [address]- 1121 Dec, [facility] [address] [id number] [place] [address]- 9967 Dec, [facility] [address] [id number] [place] [address]- 2694 Dec, [facility] [address] [id number] [place] [address]- 7494 November, [facility] [address] [id number] [place] [address]- 3120 November, [facility] [address] [id number] [place] [address]- 6263 November, [facility] [address] [id number] [place] [address]- 9115 Oct, [facility] [address] [id number] [place] [address]- 5642 Oct, [facility] [place] [facility] [address] [id number] [place] [address]- 8919 Oct, [facility] [place] [facility] [address] [id number] [place] [address]- 3479 Oct, [facility] [place] [facility] [address] [id number] [place] [address]- 8840 Oct, [facility] [place] [facility] [address] [id number] [place] [address]- 4377 Sep, [facility] [address] [id number] [place] [address]- 1011 Sep, [facility] [place] [facility] [address] [id number] [place] [address]- 7690 Sep, [facility] [address] [id number] [place] [address]- 3871 Sep, [facility] [address] [id number] [place] [address]- 3973 Aug, [facility] [address] [id number] [place] [address]- 6559 Aug, [facility] [address] [id number] [place] [address]- 1505 Aug, [facility] [place] [facility] [address] [id number] [place] [address]- 2216 Aug, [facility] [place] [facility] [address] [id number] [place] [address]- 0955 Jul, [facility] [place] [facility] [address] [id number] [place] [address]- 0060 Jul, [facility] [place] [facility] [address] [id number] [place] [address]- 6026 Jun, [facility] [place] [facility] [address] [id number] [place] [address]- 8896 Jun, [facility] [place] [facility] [address] [id number] [place] [address]- 4569 05 Jun, 2012 [facility] [place] [facility] [address] [id number] [place] [address]- 6128 Jun, [facility] [place] [facility] [address] [facility] [id number] [place] [address]- 5249 May, [facility] [place] [facility] [address] [facility] [id number] [place] [address]- 5905 May, [facility] [place] [facility] [address] [id number] [place] [address]- 7363 May, [facility] [place] [facility] [address] [id number] [place] [address], [place] 9305 May, [facility] [place] [facility] [address] [facility] [id number] [place] [address]- 6423 Apr, [facility] [place] [facility] [address] [facility] [id number] [place] [address]- 8521 31 Apr, 2012 [facility] [place] [facility] [address] [id number] [place] [address]- 5970 31 Apr, 2012 [facility] [place] [facility] [address] [facility] [id number] [place] [address]- 9139 31 Apr, 2012 [facility] [place] [facility] [address] [facility] [id number] [place] [address]- 2622 30 Apr, 2012 [facility] [place] [facility] [address] [facility] [id number] [place] [address]- 3188 30 Apr, 2012 [facility] [place] [facility] [address] [facility] [id number], [place] [address]- 4221 Apr, [facility] [place] [facility] [address] [id number] [place] [address]- 8738 Apr, [facility] [place] [facility] [address] [facility] [id number] [place] [address]012 16 Apr, 2012 [facility] [place] [facility] [address] [facility] [id number][place] 2018 16 Apr, 2012 [facility] [place] [facility] [address] [id number] [place] [address]- 4890 Feb, [facility] [place] [facility] [address] [id number] [place] [address]- 1137 Feb, [facility] [place] [facility] [address] [id number] [place] [address]- 0124 Jan, [facility] [place] [facility] [address] [id number] [place] [address]- 8823 Jan, [facility] [place] [facility] [address] [id number] [place] [address]- 8402 Jan, [facility] [place] [facility] [address] [id number] [place] [address]- 5301 Jan, [facility] [place] [facility] [address] [id number] [place] [address]- 4414 Jan, [facility] [place] [facility] [address] [id number] [place] [address]- 8681 Jan, [facility] [place] [facility] [address] [id number] [place] [address]- 7588 Dec, [facility] [place] [facility] [address] [id number] [place] [address]- 1666 November, [facility] [place] [facility] [address] [id number] [place] [address]- 5094 November, [facility] [place] [facility] [address] [id number] [place] [address]- 4121 November, [facility] [place] [facility] [address] [id number] [place] [address]- 8850 Sep, [facility] [place] [facility] [address] [id number] [place] [address]- 2821 Sep, [facility] [place] [facility] [address] [id number] [place] [address]- 2569 Sep, [facility] [place] [facility] [address] [id number] [place] [address]- 9642 08 Sep, 2011 [facility] [place] [facility] [address] [id number] [place] [address]- 2364 Sep, [facility] [place] [facility] [address] [id number] [place] [address]- 1056 Sep, [facility] [place] [facility] [address] [id number] [place] [address]- 0796 13 Aug, 2011 [facility] [place] [facility] [address] [id number] [place] [address]- 4452 Aug, [facility] [place] [facility] [address] [id number] [place] [address]- 9909 Aug, [facility] [place] [facility] [address] [id number] [place] [address]- 1908 Jul, [facility] [place] [facility] [address] [id number] [place] [address]- 3380 Jul, [facility] [place] [facility] [address] [id number] [place] [address]- 9923 Jul, [facility] [place] [facility] [address] [id number] [place] [address]- 9021 Jul, [facility] [place] [facility] [address] [id number] [place] [address]- 3745 Jun, [facility] [place] [facility] [address] [id number] [place] [address]- 3244 Jun, [facility] [place] [facility] [address] [id number] [place] [address]- 7544 Jun, [facility] [place] [facility] [address] [id number] [place] [address]- 4491 Jun, [facility] [place] [facility] [address] [id number] [place] [address]- 7952 Jun, [facility] [place] [facility] [address] [id number] [place] [address]- 3090 Jun, [facility] [place] [facility] [address] [id number] [place] [address]- 6545 10 May, 2011 [facility] [address] [id number] [place] [address]- 1396 May, [facility] [address] [id number] [place] [address]- 1076 May, [facility] [address] [id number] [place] [address]- 3855 Apr, [facility] [address] [id number] [place] [address]- 9305 Jan, [facility] [address] [id number] [place]75 20 Jun, 2010 [facility] [address] [id number] [place] [address]- 1301 20 Jun, 2010 [facility] [address] [id number] [place] [address]- 1311 15 Jun, 2010 [facility] [address] [id number] [place] [address]- 0641 15 Jun, 2010 [facility] [address] [id number] [place] [address]- 6001 15 Jun, 2010 [facility] [address] [id number] [place] [address]- 7551 13 Jun, 2010 [facility] [address] [id number] [place] [address] 2541 13 Jun, 2010 [facility] [address] [id number] [place] [address] 254 Apr, [facility] [place] [facility] [address] [id number] [place] [address]- 5467 17 Feb, 2010 [facility] [place] [facility] [address] [id number] [place] [address] 2546 15 Aug, 2009 [facility] [place] [facility] [address] [id number] [place] [address]- 0059 Jul, [facility] [address] [id number], [place] [address]- 7734 11 Jul, 2009 [facility] [place] [facility] [address] [id number] [place] [address]- 7502 29 Jun, 2009 [facility] [address] [id number] [place] [address]- 4282 Jun, [facility] [place] [facility] [address] [id number] [place] [address]- 6666 Jun, [facility] [address] [id number] [place] [address]- 7377 Jun, [facility] [place] [facility] [address] [id number], [place] [address]- 7326 16 Jun, 2009 [facility] [address] [facility] [id number] [place] [address]- 1501 Jun, [facility] [place] [facility] [address] [id number], [place] [address]- 6529 Jun, [facility] [place] [facility] [address] [id number], [place] [address]- 1665 30 May, 2009 [facility] [place] [facility] [address] [id number], [place] [address]- 6555 27 May, 2009 [facility] [place] [facility] [address] [id number], [place] [address]- 2605 May, [facility] [place] [facility] [address] [id number], [place] [address]- 5435 May, [facility] [place] [facility] [address] [id number], [place] [address]- 5359 May, [facility] [place] [facility] [address] [id number], [place] [address]- 7925 16 May, 2009 [facility] [place] [facility] [address] [id number] 8187 May, [facility] [place] [facility] [address] [facility] [id number] [place] [address]- 4596 16 Apr, 2009 [facility] [address] [facility] [id number] [place] [address]- 4033 Apr, [facility] [address] [facility] [id number] [place] [address]- 3962 Jan, [facility] [address] [facility] [id number] [place] [address]- 9086 Oct, IMMUNIZATIONS No Known Immunizations SOCIAL HISTORY Never Assessed REASON FOR VISIT Requests return call PLAN OF CARE VITAL SIGNS MEDICATIONS [...]
--- OUTSIDE RECORDS SUMMARY | 2018-11-09 12:57 | XMS REPORT ---
Author Author PRABHA HILL [facility] Address [address] [place] [address] Care Team Providers Care Telephone Recorder Name Role Phone PRABHA HILL Unavailable PROBLEMS Type Condition ICD9-CM Code BTK20-MU Code Onset Dates Condition Status SNOMED Code Problem Hypoglycemia E16.2 Active 245567457 Problem Hallucinations R44.3 Active 7039918 Problem Unsteady gait R26.81 Active 65298631 Problem 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 Active [id number] Problem Dysuria R30.0 Active 49063254 Problem Anxiety F41.9 Active 80455744 Problem Dementia in other diseases classified elsewhere without behavioral disturbance F02.80 Active 976092900 Problem Other frontotemporal dementia G31.09 Active 926068064 Problem Parkinsons disease G20 Active 98919702 Problem Episodic cluster headache, not intractable G44.019 Active 668972340 Problem Neurogenic orthostatic hypotension G90.3 Active 541031759 Problem Mixed stress and urge urinary incontinence N39.46 Active 568104086 Problem 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 Active 887890021 Problem Essential hypertension I10 Active 53003127 Problem Type 2 diabetes mellitus with unspecified complications E11.8 Active 14526094 Problem PVD (peripheral vascular disease) I73.9 Active 344218025 Problem Dysthymia F34.1 Active 57354696 Problem Polydipsia R63.1 Active 97317930 Problem 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 pectoris I25.10 Active 1744565851149 Problem Hypothyroidism (acquired) E03.9 Active 520438213 Problem Hyperlipemia, mixed E78.2 Active 804017336 Problem Dementia with Lewy bodies G31.83 Active 681172263 Problem Neuropathy G62.9 Active 325139522 Problem Hypernatremia E87.0 Active 17683667 ALLERGIES No Information ENCOUNTERS Encounter Location Date Diagnosis [facility] [id number] [place] [address] 44807- 5595 Apr, [facility] [id number] [place] [address] 96550- 2842 Mar, Type 2 diabetes mellitus with unspecified complications E11.8 [facility] [id number] [place] [address] 92406- 9447 17 Mar, 2018 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 [facility] [id number] [place] [address] 08694- 3659 Mar, [facility] [id number] [place] [address] 10330- 8745 Mar, [facility] [id number] [place] [address] 55709- 2241 Mar, [facility] [id number] [place] [address] 84480- 3802 Mar, [facility] [id number] [place] [address] 01451- 9787 Mar, Cellulitis of left lower extremity L03.116 and Petechial rash R23.3 [facility] [id number] [place] [address] 51854- 8620 Feb, Left shoulder pain M25.512 [facility] [id number] [place] [address] 57885- 5653 Feb, Left shoulder pain M25.512 [facility] [id number] [place] [address] 49146- 2702 Feb, 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 [facility] [id number] [place] [address] 03597- 9738 Jan, Left shoulder pain M25.512 [facility] [id number] [place] [address] 13148- 9983 Dec, Parkinsons disease G20 [facility] [id number] [place] [address] 90128- 0816 Dec, Left shoulder pain M25.512 [facility] [id number] [place] [address] 01337- 0430 Dec, Type 2 diabetes mellitus with unspecified complications E11.8 ; Anxiety F41.9 ; Therapeutic drug monitoring Z51.81 and Analgesic use Z79.899 [facility] [id number] [place] [address] 91603- 4016 November, [facility] [address] 88418- 0218 November, [place] [facility] [address] 71519- 2250 November, Left shoulder pain M25.512 [facility] [id number] [place] [address] 56187- 9884 Oct, [facility] [id number] [place] [address] 07119 -2622 Oct, [facility] [id number] [place] [address] 45916- 1723 Oct, Parkinsons disease G20 [facility] [id number] [place] [address] 31129 -5224 Oct, Acute cystitis without hematuria N30.00 and Viral upper respiratory tract infection J06.9 [facility] [id number] [place] [address] 95122- 8966 Oct, [facility] [id number] [place] [address] 35424- 2573 Oct, Type 2 diabetes mellitus with unspecified complications E11.8 [facility] [id number] [place] [address] 30752- 5436 Oct, Left shoulder pain M25.512 [facility] [id number] [place] [address] 31143- 2334 Oct, Type 2 diabetes mellitus with unspecified complications E11.8 ; Dysuria R30.0 and Neurogenic orthostatic hypotension G90.3 [facility] [address] 80383- 2422 Sep, Left shoulder pain M25.512 [facility] [address] 95097- 8139 Sep, Medicare annual wellness visit, initial Z00.00 ; Parkinsons disease G20 ; Type 2 diabetes mellitus with unspecified complications E11.8 ; Essential hypertension I10 ; 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 pectoris I25.10 ; Hypothyroidism (acquired ) E03.9 ; PVD (peripheral vascular disease) I73.9 ; Dysthymia F34.1 ; Hyperlipemia, mixed E78.2 ; Neuropathy G62.9 ; Encounter for immunization Z23 ; Encounter for other screening for malignant neoplasm of breast Z12.39 and Mixed stress and urge urinary incontinence N39.46 [facility] [address] 22639- 9076 Aug, Parkinsons disease G20 [facility] [address] 85261- 8718 Aug, Type 2 diabetes mellitus with unspecified complications E11.8 ; Left shoulder pain M25.512 and Hypotensive episode I95.9 [facility] [address] 63854- 9390 09 Aug, 2017 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 pectoris I25.10 [facility] [id number] [place] [address] 48115- 3211 07 Aug, 2017 Type 2 diabetes mellitus with unspecified complications E11.8 [facility] [address] 83252- 6514 Jul, Callus of foot L84 [place] [facility] [address] 99762- 1733 Jul, [facility] [address] 79752- 2761 Jul, Callus of foot L84 ; Episodic cluster headache, not intractable G44.019 ; Type 2 diabetes mellitus with unspecified complications E11.8 and Parkinsons disease G20 [facility] [id number] [place] [address] 14810- 6924 Jul, [facility] [address] 85728- 8904 Jul, [facility] [address] 42578- 0025 Jun, Type 2 diabetes mellitus with unspecified complications E11.8 ; Unsteady gait R26.81 ; Forgetfulness R68.89 and Hallucinations R44.3 [facility] [address] 08529- 3875 Jun, [facility] [address] 02738- 6935 Jun, Left shoulder pain M25.512 [facility] [address] 44915- 9386 13 May, 2017 Hypernatremia E87.0 and Polydipsia R63.1 [facility] [id number] [place] [address] 95312- 0424 08 May, 2017 Hypernatremia E87.0 and Polydipsia R63.1 [facility] [id number] [place] [address] 68394- 4967 May, Hypoglycemia E16.2 ; Dysuria R30.0 ; Unsteadiness on feet R26.81 ; Forgetfulness R68.89 ; Type 2 diabetes mellitus with unspecified complications E11.8 and Yeast infection involving the vagina and surrounding area B37.3 [facility] [id number] [place] [address] 51766- 7933 May, Acute cystitis without hematuria N30.00 [facility] [id number] [place] [address] 44849 -0811 Apr, Dysuria R30.0 and Acute cystitis without hematuria N30.00 [place] [place] [address] 36906- 4377 Apr, Hypernatremia E87.0 and Polydipsia R63.1 [facility] [address] 02234- 3340 Apr, Vertigo R42 and Type 2 diabetes mellitus with unspecified complications E11.8 [facility] [place] [address] 48617- 6906 Mar, [facility] [address] 60022- 3675 19 Mar, 2017 Left shoulder pain M25.512 [facility] [place] [address] 42577- 0797 13 Mar, 2017 Vertigo R42 [facility] [address] 52928- 2728 12 Mar, 2017 Polydipsia R63.1 [facility] [address] 56025- 7385 12 Mar, 2017 Polydipsia R63.1 [facility] [address] 12490- 4429 11 Mar, 2017 Vertigo R42 [facility] [address] 21816- 1445 07 Mar, 2017 Type 2 diabetes mellitus with unspecified complications E11.8 ; Vertigo R42 ; Polydipsia R63.1 ; Polyuria R35.8 ; Hypothyroidism ( acquired) E03.9 ; Abnormal urinalysis R82.90 and Dysthymia F34.1 [place] [place] [address]- 4664 05 Mar, 2017 Coronary artery disease of nenana artery with stable angina pectoris, unspecified whether nenana or transplanted heart I25.118 ; Systolic CHF, chronic I50.22 ; Hyperlipemia, mixed E78.2 and Essential hypertension I10 [facility] [address] [place] [address] [id number] Feb, Dental caries K02.9 [facility] [id number] [place] [address] 71477- 7616 Feb, Type 2 diabetes mellitus with diabetic neuropathy, unspecified E11.40 [facility] [id number] [place] [address] 02129- 3585 Dec, Left shoulder pain M25.512 [facility] [id number] [place] [address] 40353- 8682 Dec, [facility] [id number] [place] [address] 39692- 8286 Dec, Type 2 diabetes mellitus with unspecified complications E11.8 [facility] [id number] [place] [address] [id number] Dec, Dental examination Z01.20 [facility] [id number] [place] [address] 18247- 1636 Dec, Type 2 diabetes mellitus with diabetic neuropathy, unspecified E11.40 [facility] [id number] [place] [address] 73359- 9188 Dec, [facility] [id number] [place] [address] 14564- 0068 Dec, Type 2 diabetes mellitus with diabetic neuropathy, unspecified E11.40 [facility] [id number] [place] [address] 25931- 2598 November, Left shoulder pain M25.512 [facility] [id number] [place] [address] 21389- 3523 November, [facility] [id number] [place] [address] 45905- 7192 November, Type 2 diabetes mellitus with unspecified complications E11.8 and Dysuria R30.0 [facility] [id number] [place] [address] 17904- 5593 Oct, Left shoulder pain M25.512 [facility] [id number] [place] [address] 32033- 2517 Sep, Left shoulder pain M25.512 [facility] [id number] [place] [address] 80881- 1993 Sep, Pre-op testing Z01.818 [facility] [address] 027211- 1388 Sep, Pre-op testing Z01.818 [facility] [id number] [place] [address] 08774- 9812 Sep, Pre-op testing Z01.818 [facility] [id number] [place] [address] 63693- 3040 Sep, Pre-op testing Z01.818 and Mouth pain K13.79 [facility] [id number] [place] [address] 74640- 1262 Sep, Left shoulder pain M25.512 [facility] [id number] [place] [address] 43674- 9289 Aug, Other eczema L30.8 [facility] [id number] [place] [address] 82469- 0706 06 Aug, 2016 PVD (peripheral vascular disease) I73.9 ; Type 2 diabetes mellitus with unspecified complications E11.8 ; Acute cystitis with hematuria N30.01 ; Other eczema L30.8 ; Dysuria R30.0 and Left shoulder pain M25.512 [facility] [address] [place] [address] 28618 -5410 Jul, Otalgia of right ear H92.01 and Blood in ear canal, right H92.21 [facility] [address] [place] [address] 23179- 1996 Jul, Arthralgia, unspecified joint M25.50 ; PVD (peripheral vascular disease) I73.9 and Neuropathy G62.9 [facility] [address] [address]- 6379 Jul, [facility] [id number] [place] [address] 72780- 3389 Jun, Medicare annual wellness visit, initial Z00.00 ; Cervicalgia M54.2 ; Radiculopathy of cervical region M54.12 ; Encounter for immunization Z23 ; Type 2 diabetes mellitus with unspecified complications E11.8 and Essential hypertension I10 [facility] [id number] [place] [address] 55279- 4847 Jun, [facility] [id number] [place] [address] 74710- 0755 May, Hypothyroidism (acquired) E03.9 [facility] [id number] [place] [address] 52127- 2295 May, Dysuria R30.0 ; Essential hypertension I10 ; Hypothyroidism (acquired) E03.9 and PVD (peripheral vascular disease) I73.9 [facility] [address] [place] [address] 24370 -2859 03 May, 2016 Burning with urination R30.0 and Acute cystitis with hematuria N30.01 [facility] [place] [address] [place] [address] 58119- 2374 May, Dental examination Z01.20 [facility] [id number] [place] [address] 95961- 5566 May, Hypothyroidism (acquired) E03.9 [facility] [place] [address] [place] [address] 79806- 3102 Feb, [facility] [id number] [place] [address] 80168- 0454 Feb, 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 ; PVD ( peripheral vascular disease) I73.9 ; Type 2 diabetes mellitus with unspecified complications E11.8 and Essential hypertension I10 [facility] [id number] [place] [address] 62886- 6448 Jan, [facility] [id number] [place] [address] 71426- 1418 Jan, Hypothyroidism (acquired) E03.9 [facility] [id number] [place] [address] 96024- 2301 Jan, [facility] [id number] [place] [address] 55570- 2922 Jan, [facility] [id number] [place] [address] 34433- 9746 Jan, Type 2 diabetes mellitus with unspecified complications E11.8 ; 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 and Essential ( primary) hypertension I10 [facility] [id number] [place] [address] 93659- 2356 Jan, Type 2 diabetes mellitus with unspecified complications E11.8 ; 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 ; Essential hypertension I10 and PVD (peripheral vascular disease) I73.9 [facility] [id number] [place] [address] 12640- 8202 Jan, [facility] [place] [id number] [place] [address] 60949- 4284 Jan, [place] [place] [address] [place] [address] 19395- 8372 Jan, [facility] [id number] [place] [address] 58666- 3859 Jan, Weakness R53.1 ; Fatigue, unspecified type R53.83 ; PVD ( peripheral vascular disease) I73.9 ; Acute osteomyelitis of other site M86.18 ; Type 2 diabetes mellitus with diabetic neuropathy, unspecified E11.40 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 [facility] [address] [place] [address] 08480- 8489 Dec, [facility] [id number] [place] [address] 21445- 2758 Dec, Type 2 diabetes mellitus with unspecified complications E11.8 [facility] [id number] [place] [address] 15175- 2906 Dec, [facility] [id number] [place] [address] 10022- 3027 Dec, Pressure ulcer, unspecified pressure ulcer stage L89.90 and Type 2 diabetes mellitus with unspecified complications E11.8 [facility] [id number] [place] [address] 39630 -3133 Dec, Toe infection L08.9 [place] [address] 15567- 7020 November, Dental caries K02.9 [facility] [id number] [place] [address] 92705- 7352 November, [place] [place] [id number] [place] [address] 51096- 1374 November, Dental examination Z01.20 [facility] [id number] [place] [address] 55588- 1054 Sep, Lipoma of torso D17.1 and Thoracic neuritis M54.14 [facility] [id number] [place] [address] 37978- 2659 Sep, [facility] [place] [id number] [place] [address] 09628- 0620 Aug, [facility] [id number] [place] [address] 83841 -7413 Jul, Dysuria R30.0 and UTI (urinary tract infection) N39.0 [facility] [place] [id number] [place] [address] 76979- 4491 Jun, Left shoulder pain M25.512 [facility] [place] [id number] [place] [address] 45897- 1648 May, Shoulder pain, left M25.512 [facility] [address] [place] [address] 26272- 7033 May, [facility] [id number] [place] [address] 91530- 0521 May, [facility] [address] [place] [address] 66556- 0350 May, Left shoulder pain M25.512 [facility] [id number] [place] [address] 13288- 3214 May, [facility] [id number] [place] [address] 30220- 8152 Apr, Encounter for immunization Z23 [facility] [place] [id number] [place] [address] 15128- 5035 Apr, Urinary tract infection, site not specified N39.0 ; Hypotension, unspecified I95.9 ; Type 2 diabetes mellitus with unspecified complications E11.8 and Generalized edema R60.1 [facility] [place] [id number] [place] [address] 65764- 6280 Apr, [facility] [id number] [place] [address] 72940- 4700 Mar, Diabetes with other specified manifestations, type II or unspecified type, not stated as uncontrolled 250.80 [place] [place] [address] [place] [address] 41039- 8813 Feb, Gout 274.9 and Diabetes 250.00 [facility] [address] [place] [address] 72976- 3388 Jan, [facility] [id number] [place] [address] 85068- 1837 November, CAD (coronary artery disease) 414.00 and CHF (congestive heart failure) 428.0 [facility] [address] [place] [address] 09275- 2843 Oct, [facility] [id number] [place] [address]- 3376 14 Oct, 2014 [facility] [place] [facility] [address] [id number] [place] [address]- 5397 13 Oct, 2014 [facility] [place] [facility] [address] [id number] [place] [address]- 8008 Sep, [facility] [place] [facility] [address] [id number] [place] [address]- 4457 Sep, [facility] [place] [facility] [address] [id number] [place] [address]- 4411 Sep, [facility] [place] [facility] [address] [id number] [place] [address]- 4065 Sep, [facility] [place] [facility] [address] [facility] [id number] [place] [address]- 9591 Aug, [facility] [place] [facility] [address] [facility] [id number] [place] [address]- 1300 Aug, 2014 [facility] [place] [facility] [address] [facility] [id number] [place] [address]- 6363 Aug, 2014 [facility] [place] [facility] [address] [facility] [id number] [place] [address]- 8753 Aug, 2014 [facility] [place] [facility] [id number] [place] [address]- 1775 Aug, 2014 [facility] [place] [facility] [address] [facility] [id number] [place] [address]- 0791 Aug, 2014 [facility] [place] [facility] [address] [facility] [id number] [place] [address]- 1009 Aug, [facility] [place] [facility] [address] [facility] [id number] [place] [address]- 9362 Aug, [facility] [place] [facility] [address] [facility] [id number] [place] [address]- 8202 Jul, [facility] [place] [facility] [address] [facility] [id number] [place] [address]- 0126 Jul, [facility] [place] [facility] [address] [id number] [place] [address] Jul, [facility] [place] [facility] [address] [id number] [place] [address] Jul, [facility] [place] [facility] [address] [id number] [place] [address] Jul, [facility] [place] [facility] [address] [id number] [place] [address] Jul, [facility] [place] [facility] [address] [id number] [place] [address] Jul, [facility] [place] [facility] [address] [id number] [place] [address] Jul, [facility] [place] [facility] [address] [id number] [place] [address] Jul, [facility] [place] [facility] [address] [id number] [place] [address] Jul, [facility] [place] [facility] [address] [id number] [place] [address] Jun, [facility] [place] [facility] [address] [id number] [place] [address] Jun, [facility] [place] [facility] [address] [id number] [place] [address] Jun, [facility] [place] [facility] [address] [id number] [place] [address] Jun, [facility] [place] [facility] [address] [id number] [place] [address] Jun, [facility] [place] [facility] [address] [id number] [place] [address] Jun, [facility] [place] [facility] [address] [id number] [place] [address] Jun, [facility] [place] [facility] [address] [id number] [place] [address] Jun, [facility] [place] [facility] [address] [id number] [place] [address] Jun, [facility] [place] [facility] [address] [id number] [place] [address] Jun, [facility] [place] [facility] [address] [id number] [place] [address] May, [facility] [place] [facility] [address] [id number] [place] [address] May, [facility] [place] [facility] [address] [id number] [place] [address] Mar, [facility] [place] [facility] [address] [id number] [place] [address] Mar, [facility] [place] [facility] [address] [id number] [place] [address] Mar, [facility] [place] [facility] [address] [id number] [place] [address] Mar, [facility] [place] [facility] [address] [id number] [place] [address] Feb, [facility] [place] [facility] [address] [id number] [place] [address] 9[address] Feb, [facility] [place] [facility] [address] [id number] [place] [address] 6[address] Feb, [facility] [place] [facility] [address] [id number] [place] [address] 9677 Jan, [facility] [place] [facility] [address] [id number] [place] [address] 0471 Jan, [facility] [place] [facility] [address] [id number] [place] [address] 7673 Jan, [facility] [place] [facility] [address] [id number] [place] [address] 8473 Jan, [facility] [place] [facility] [address] [id number] [place] [address] 4623 Jan, [facility] [place] [facility] [address] [id number] [place] [address] 2679 Jan, [facility] [place] [facility] [address] [id number] [place] [address] 7398 Jan, [facility] [place] [facility] [address] [id number] [place] [address] 3566 Jan, [facility] [place] [facility] [address] [id number] [place] [address] 7234 Jan, [facility] [place] [facility] [address] [id number] [place] [address]- 8734 Jan, [facility] [place] [facility] [address] [id number] [place] [address]- 2676 Dec, [facility] [place] [facility] [address] [id number] [place] [address]- 4260 Dec, [facility] [place] [facility] [address] [id number] [place] [address]- 6751 November, [facility] [place] [facility] [address] [id number] [place] [address]- 0395 November, [facility] [place] [facility] [address] [id number] [place] [address] 8931 November, [facility] [place] [facility] [address] [id number] [place] [address]- 7516 November, [facility] [place] [facility] [address] [id number] [place] [address]- 6714 November, [facility] [place] [facility] [address] [id number] [place] [address]- 8090 November, [facility] [place] [facility] [address] [id number] [place] [address] 1345 November, [facility] [place] [facility] [address] [id number] [place] [address] 8550 Oct, [facility] [address] [id number] [place] [address]- 2924 Oct, [facility] [place] [facility] [address] [id number] [place] [address]- 0205 Sep, [facility] [place] [facility] [address] [id number] [place] [address]- 6729 Sep, [facility] [place] [facility] [address] [id number] [place] [address]- 8897 Sep, [facility] [place] [facility] [address] [id number] [place] [address]- 1092 Sep, [facility] [place] [facility] [address] [id number] [place] [address]- 9541 Sep, [facility] [place] [facility] [address] [id number] [place] [address]- 5397 Sep, [facility] [place] [facility] [address] [id number] [place] [address] 9701 Sep, [facility] [place] [facility] [address] [id number] [place] [address]- 0235 Sep, [facility] [place] [facility] [address] [id number] [place] [address]- 1173 Sep, [facility] [place] [facility] [address] [id number] [place] [address]- 3741 Sep, [facility] [place] [facility] [address] [id number] [place] [address] 1970 Aug, [facility] [place] [facility] [address] [id number] [place] [address] 1330 Aug, [facility] [place] [facility] [address] [id number] [place] [address]- 0219 Jul, [facility] [place] [facility] [address] [id number] [place] [address] 2049 Jul, [facility] [place] [facility] [address] [id number] [place] [address] 3206 Jul, [facility] [place] [facility] [address] [id number] [place] [address]- 2533 Jul, [facility] [place] [facility] [address] [id number] [place] [address] 5958 Jul, [facility] [place] [facility] [address] [id number] [place] [address]- 7456 Jul, [facility] [place] [facility] [address] [id number] [place] [address]- 7276 Jun, [facility] [place] [facility] [address] [id number] [place] [address]- 5162 Jun, [facility] [place] [facility] [address] [id number] [place] [address] 1309 Jun, [facility] [place] [facility] [address] [id number] [place] [address]- 2950 Jun, [facility] [place] [facility] [address] [id number] [place] [address]- 6145 May, [facility] [place] [facility] [address] [id number] [place] [address]- 8776 May, [facility] [place] [facility] [address] [id number] [place] [address]- 6816 May, [facility] [place] [facility] [address] [id number] [place] [address]- 0460 May, [facility] [place] [facility] [address] [id number] [place] [address]- 1192 May, [facility] [place] [facility] [address] [id number] [place] [address] Apr, [facility] [place] [facility] [address] [id number] [place] [address] Apr, [facility] [place] [facility] [address] [id number] [place] [address]- 6013 Apr, [facility] [place] [facility] [address] [id number] [place] [address]- 4084 Apr, [facility] [place] [facility] [address] [id number] [place] [address]- 2746 Apr, [facility] [place] [facility] [address] [id number] [place] [address] 2540 Apr, [facility] [place] [facility] [address] [id number] [place] [address]- 8099 Apr, [facility] [place] [facility] [address] [id number] [place] [address] 1941 Apr, [facility] [place] [facility] [address] [id number] [place] [address]- 2295 Apr, [facility] [place] [facility] [address] [id number] [place] [address] 2547 Apr, [facility] [place] [facility] [address] [id number], [place] [address]- 5636 Apr, [facility] [place] [facility] [address] [id number] [place] [address]- 4139 Apr, [facility] [place] [facility] [address] [id number], [place] [address] 1236 Mar, [facility] [place] [facility] [address] [id number], [place] [address]- 2546 Mar, [facility] [place] [facility] [address] [id number], [place] [address]- 2546 Feb, [facility] [place] [facility] [address] [id number] [place] [address]- 2546 Jan, [facility] [place] [facility] [address] [id number], [place] [address]- 2546 Jan, [facility] [place] [facility] [address] [id number], [place] [address]- 2546 Jan, [facility] [place] [facility] [address] [id number] [place] [address]- 7902 Jan, [facility] [address] [id number] [place] [address]- 3001 Dec, [facility] [place] [facility] [address] [id number] [place] [address]- 4295 Dec, [facility] [address] [id number] [place] [address]- 3187 Dec, [facility] [place] [facility] [address] [id number] [place] [address]- 3531 Dec, [facility] [address] [id number] [place] [address]- 8263 Dec, [facility] [address] [id number] [place] [address]- 7311 Dec, [facility] [address] [id number] [place] [address]- 5386 Dec, [facility] [address] [id number] [place] [address]- 2815 November, [facility] [place] [facility] [address] [id number] [place] [address]- 1692 November, [facility] [address] [id number] [place] [address]- 9902 November, [facility] [place] [facility] [address] [id number] [place] [address]- 4143 Oct, [facility] [place] [facility] [address] [id number] [place] [address]- 9111 Oct, [facility] [place] [facility] [address] [id number] [place] [address]- 7380 Oct, [facility] [place] [facility] [address] [id number] [place] [address]- 5706 Oct, [facility] [place] [facility] [address] [id number] [place] [address]- 6417 Oct, [facility] [place] [facility] [address] [id number] [place] [address]- 9919 Sep, [facility] [address] [id number] [place] [address]- 1600 Sep, [facility] [place] [facility] [address] [id number] [place] [address] Sep, [facility] [place] [facility] [address] [id number] [place] [address]- 7250 Sep, [facility] [address] [id number] [place] [address]- 7799 Aug, [facility] [place] [facility] [address] [id number] [place] [address]- 5024 Aug, [facility] [address] [id number] [place] [address]- 5273 Aug, [facility] [address] [id number] [place] [address]- 1832 Aug, [facility] [address] [id number] [place] [address]- 3791 Jul, [facility] [address] [id number] [place] [address]- 6029 Jul, [facility] [address] [id number] [place] [address]- 9857 Jun, [facility] [place] [facility] [address] [id number] [place] [address]- 0115 Jun, [facility] [place] [facility] [address] [id number] [place] [address] 2544 Jun, [facility] [place] [facility] [address] [id number] [place] [address] 2546 Jun, [facility] [place] [facility] [address] [id number] [place] [address]- 1826 May, [facility] [place] [facility] [address] [id number] [place] [address]- 4419 May, [facility] [place] [facility] [address] [id number] [place] [address]- 5101 May, [facility] [place] [facility] [address] [id number] [place] [address]- 7176 May, [facility] [place] [facility] [address] [id number] [place] [address]- 8669 Apr, [facility] [place] [facility] [address] [id number] [place] [address]- 7241 Apr, [facility] [place] [facility] [id number] [place] [address], [place] [address]83 Apr, [facility] [place] [facility] [address] [id number] [place] [address]- 6597 Apr, [facility] [place] [facility] [address] [id number] [place] [address]- 8700 Apr, [facility] [place] [facility] [address] [id number] [place] [address]- 8576 Apr, [facility] [place] [facility] [address] [id number] [place] [address]- 9696 Apr, [facility] [place] [facility] [address] [id number] [place] [address]- 5164 Apr, [facility] [place] [facility] [address] [id number] [place] [address]- 2319 Apr, [facility] [place] [facility] [address] [id number], [place] [address]- 0510 Apr, [facility] [place] [facility] [address] [id number] [place] [address]- 4945 Feb, [facility] [place] [facility] [address] [id number] [place] [address]- 9283 Feb, [facility] [place] [facility] [address] [facility] [id number] [place] [address]- 4969 Jan, [facility] [place] [facility] [address] [id number] [place] [address]- 4640 Jan, [facility] [place] [facility] [address] [id number] [place] [address]- 1306 Jan, [facility] [place] [facility] [address] [id number] [place] [address]- 1966 Jan, [facility] [place] [facility] [address] [id number] [place] [address]- 1916 Jan, [facility] [place] [facility] [address] [id number] [place] [address]- 4498 Jan, [facility] [place] [facility] [address] [id number] [place] [address]- 3636 Dec, [facility] [place] [facility] [address] [id number] [place] [address]- 0417 November, [facility] [place] [facility] [address] [id number] [place] [address]- 2361 November, [facility] [place] [facility] [address] [id number] [place] [address]- 6388 November, [facility] [place] [facility] [address] [id number] [place] [address]- 7205 Sep, [facility] [place] [facility] [address] [id number] [place] [address]- 2341 Sep, [facility] [place] [facility] [address] [id number] [place] [address]- 2122 Sep, [facility] [place] [facility] [address] [id number] [place] [address]- 3251 Sep, [facility] [place] [facility] [address] [id number] [place] [address]- 5856 Sep, [facility] [place] [facility] [address] [id number] [place] [address]- 0056 Sep, [facility] [place] [facility] [address] [id number] [place] [address]- 3218 Aug, [facility] [place] [facility] [address] [id number] [place] [address]- 3991 Aug, [facility] [place] [facility] [address] [id number] [place] [address]- 1416 Aug, [facility] [place] [facility] [address] [id number] [place] [address]- 3889 Jul, [facility] [place] [facility] [address] [id number] [place] [address]- 2728 Jul, [facility] [place] [facility] [address] [id number] [place] [address]- 5430 Jul, [facility] [place] [facility] [address] [id number] [place] [address]- 5080 Jul, [facility] [place] [facility] [address] [id number] [place] [address]- 9728 Jun, [facility] [place] [facility] [address] [id number] [place] [address]- 5242 Jun, [facility] [place] [facility] [address] [id number] [place] [address]- 4660 Jun, [facility] [place] [facility] [address] [id number] [place] [address]- 3222 Jun, [facility] [place] [facility] [address] [id number], [place] [address]- 1588 Jun, [facility] [place] [facility] [address] [id number], [place] [address]- 3627 Jun, [facility] [place] [facility] [address] [id number] [place] [address]- 0320 May, [facility] [place] [facility] [address] [id number] [place] [address]- 6269 May, [facility] [place] [facility] [address] [id number] [place] [address]- 3281 May, [facility] [place] [facility] [address] [id number] [place] [address]- 9756 21 Apr, 2011 [facility] [address] [id number] [place] [address]- 9606 11 Jan, 2011 [facility] [address] [id number] [place] [address]- 8586 20 Jun, 2010 [facility] [address] [id number] [place] [address]- 9776 20 Jun, 2010 [facility] [address] [id number] [place] [address] 2542 15 Jun, 2010 [facility] [address] [id number] [place] [address]- 6476 15 Jun, 2010 [facility] [address] [id number] [place] [address]- 0081 15 Jun, 2010 [facility] [address] [id number] [place] [address]- 5907 13 Jun, 2010 [facility] [address] [id number] [place] [address]- 2430 13 Jun, 2010 [facility] [address] [id number] [place] [address]- 3141 Apr, [facility] [address] [id number] [place] [address]- 6628 17 Feb, 2010 [facility] [address] [id number] [place] [address]- 2485 15 Aug, 2009 [facility] [address] [id number] [place] [address] 254 Jul, [facility] [address] [id number] [place] [address]- 0406 Jul, [facility] [address] [id number] [place] [address]- 2544 29 Jun, 2009 [facility] [address] [id number] [place] [address]- 5495 Jun, [facility] [place] [facility] [address] [id number] [place] [address]- 1284 28 Jun, 2009 [facility] [place] [facility] [address] [id number] [place] [address]- 3456 Jun, [facility] [place] [facility] [address] [id number] [place] [address]- 1900 16 Jun, 2009 [facility] [place] [facility] [address] [id number] [place] [address]- 2403 Jun, [facility] [place] [facility] [address] [id number] [place] [address]- 6035 Jun, [facility] [place] [facility] [address] [id number] [place] [address]- 7616 30 May, 2009 [facility] [place] [facility] [address] [id number] [place] [address]- 4485 May, [facility] [place] [facility] [address] [id number], [place] [address]- 1674 May, [facility] [place] [facility] [address] [id number], [place] [address]- 7237 May, [facility] [place] [facility] [address] [id number], [place] [address]- 4453 May, [facility] [place] [facility] [address] [id number], [place] [address]- 0075 16 May, 2009 [facility] [place] [facility] [address] [id number], [place] [address]- 8097 May, [facility] [place] [facility] [address] [id number], [place] [address]- 8338 16 Apr, 2009 [facility] [place] [facility] [address] [id number], [place] [address]- 4191 12 Apr, 2009 [facility] [place] [facility] [address] [id number] [address] Jan, [facility] [place] [facility] [address] [id number] [place] [address]- 5386 Oct, IMMUNIZATIONS No Known Immunizations SOCIAL HISTORY Never Assessed REASON FOR VISIT Controlled Med Refill 04/01/18 PLAN OF CARE VITAL SIGNS MEDICATIONS Medication [...]
--- OUTSIDE RECORDS SUMMARY | 2018-11-09 12:58 | XMS REPORT ---
Author Author PRABHA HILL [facility] Address [address] [place] [address] Care Team Providers Care Latent Fingerprint Examiner Name Role Phone PRABHA HILL Unavailable PROBLEMS Type Condition ICD9-CM Code HMZ15-ZT Code Onset Dates Condition Status SNOMED Code Problem Hypoglycemia E16.2 Active 744724095 Problem Hallucinations R44.3 Active 1215586 Problem Unsteady gait R26.81 Active 98277720 Problem 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 Active 066317876240927 Problem Dysuria R30.0 Active 13196238 Problem Anxiety F41.9 Active 23394116 Problem Dementia in other diseases classified elsewhere without behavioral disturbance F02.80 Active 474966838 Problem Other frontotemporal dementia G31.09 Active 708861700 Problem Parkinsons disease G20 Active 55566158 Problem Episodic cluster headache, not intractable G44.019 Active 565799453 Problem Neurogenic orthostatic hypotension G90.3 Active 254841681 Problem Mixed stress and urge urinary incontinence N39.46 Active 121501673 Problem 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 Active 314731157 Problem Essential hypertension I10 Active 05472652 Problem Type 2 diabetes mellitus with unspecified complications E11.8 Active 97550032 Problem PVD (peripheral vascular disease) I73.9 Active 351537860 Problem Dysthymia F34.1 Active 14153847 Problem Polydipsia R63.1 Active 07574158 Problem 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 Active 6433974397662 Problem Hypothyroidism (acquired) E03.9 Active 466715456 Problem Hyperlipemia, mixed E78.2 Active 641394779 Problem Dementia with Lewy bodies G31.83 Active 187864513 Problem Neuropathy G62.9 Active 766300072 Problem Hypernatremia E87.0 Active 88607368 ALLERGIES No Information ENCOUNTERS Encounter Location Date Diagnosis [facility], [place] [id number] [place] [address] 14573- 5351 Mar, [facility] [place] [id number] [place] [address] 41762- 1974 Mar, [facility] [place] [id number] [place] [address] 29076- 8622 Mar, [facility] [place] [id number] [place] [address] 44391- 4735 Mar, [facility], [place] [id number] [place] [address] 38178- 5482 Mar, [facility] [place] [id number] [place] [address] 61709- 9735 Mar, Cellulitis of left lower extremity L03.116 and Petechial rash R23.3 [place] [id number] [place] [address] 47004- 7873 Feb, Left shoulder pain M25.512 [facility] [place] [id number] [place] [address] 54969- 5252 Feb, Left shoulder pain M25.512 [place] [id number] [place] [address] 16252- 6889 Feb, 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 [place] [id number] [place] [address] 68307- 4371 Jan, Left shoulder pain M25.512 [facility] [place] [id number] [place] [address] 70327- 2523 Dec, Parkinsons disease G20 [place] [id number] [place] [address] 24615- 9755 Dec, Left shoulder pain M25.512 [facility], [place] [id number] [place] [address] 86028- 8671 Dec, Type 2 diabetes mellitus with unspecified complications E11.8 ; Anxiety F41.9 ; Therapeutic drug monitoring Z51.81 and Analgesic use Z79.899 [facility] [place] [id number] [place] [address] 93297- 4882 November, [facility], [place] [id number] [place] [address] 60552- 2005 November, [facility] [place] [id number] [place] [address] 98241- 8687 November, Left shoulder pain M25.512 [place] [id number] [place] [address] 64939- 5314 Oct, [facility] [id number] [place] [address] 78997 -2607 Oct, [place] [id number] [place] [address] 85252- 4610 Oct, Parkinsons disease G20 [facility] [id number] [place] [address] 40383 -9355 Oct, Acute cystitis without hematuria N30.00 and Viral upper respiratory tract infection J06.9 [place] [id number] [place] [address] 03604- 5232 Oct, [place] [id number] [place] [address] 40415- 9941 Oct, Type 2 diabetes mellitus with unspecified complications E11.8 [place] [id number] [place] [address] 67058- 4981 Oct, Left shoulder pain M25.512 [place] [id number] [place] [address] 16875- 4472 Oct, Type 2 diabetes mellitus with unspecified complications E11.8 ; Dysuria R30.0 and Neurogenic orthostatic hypotension G90.3 [place] [id number] [place] [address] 06996- 8850 Sep, Left shoulder pain M25.512 [facility] [id number] [place] [address] 16117- 8118 Sep, Medicare annual wellness visit, initial Z00.00 ; Parkinsons disease G20 ; Type 2 diabetes mellitus with unspecified complications E11.8 ; Essential hypertension I10 ; 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 ; Hypothyroidism (acquired ) E03.9 ; PVD (peripheral vascular disease) I73.9 ; Dysthymia F34.1 ; Hyperlipemia, mixed E78.2 ; Neuropathy G62.9 ; Encounter for immunization Z23 ; Encounter for other screening for malignant neoplasm of breast Z12.39 and Mixed stress and urge urinary incontinence N39.46 [place] [address] 62194- 7308 Aug, Parkinsons disease G20 [place] [address] 56492- 1648 Aug, Type 2 diabetes mellitus with unspecified complications E11.8 ; Left shoulder pain M25.512 and Hypotensive episode I95.9 [place] [address] 42706- 5164 09 Aug, 2017 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 [place] [address] 26520- 1558 Aug, Type 2 diabetes mellitus with unspecified complications E11.8 [place] [id number] [place] [address] 08065- 1501 Jul, Callus of foot L84 [place] [address] 77821- 2592 Jul, [facility] [id number] [place] [address] 58151- 0288 Jul, Callus of foot L84 ; Episodic cluster headache, not intractable G44.019 ; Type 2 diabetes mellitus with unspecified complications E11.8 and Parkinsons disease G20 [place] [id number] [place] [address] 40418- 2541 Jul, [place] [id number] [place] [address] 01841- 4646 Jul, [place] [id number] [place] [address] 68078- 0420 Jun, Type 2 diabetes mellitus with unspecified complications E11.8 ; Unsteady gait R26.81 ; Forgetfulness R68.89 and Hallucinations R44.3 [place] [id number] [place] [address] 81420- 9717 Jun, [place] [id number] [place] [address] 47741- 3143 Jun, Left shoulder pain M25.512 [facility] [id number] [place] [address] 52469- 6403 May, Hypernatremia E87.0 and Polydipsia R63.1 [id number] [place] [address] 40897- 3308 May, Hypernatremia E87.0 and Polydipsia R63.1 [place] [id number] [place] [address] 75812- 9890 May, Hypoglycemia E16.2 ; Dysuria R30.0 ; Unsteadiness on feet R26.81 ; Forgetfulness R68.89 ; Type 2 diabetes mellitus with unspecified complications E11.8 and Yeast infection involving the vagina and surrounding area B37.3 [place] [id number] [place] [address] 38834- 9454 May, Acute cystitis without hematuria N30.00 [facility] [id number] [place] [address] 64771 -7280 Apr, Dysuria R30.0 and Acute cystitis without hematuria N30.00 [facility], [place] [id number] [place] [address] 85826- 5605 Apr, Hypernatremia E87.0 and Polydipsia R63.1 [place] [id number] [place] [address] 47622- 2890 Apr, Vertigo R42 and Type 2 diabetes mellitus with unspecified complications E11.8 [place] [id number] [place] [address] 82506- 0253 20 Mar, 2017 [facility], [place] [id number] [place] [address] 72992- 1889 19 Mar, 2017 Left shoulder pain M25.512 [place] [address] 34047- 9289 13 Mar, 2017 Vertigo R42 [place] [address] 23909- 9177 12 Mar, 2017 Polydipsia R63.1 [place] [id number] [place] [address] 10854- 2613 12 Mar, 2017 Polydipsia R63.1 [place] [id number] [place] [address] 26544- 2614 11 Mar, 2017 Vertigo R42 [place] [id number] [place] [address] 19039- 5610 07 Mar, 2017 Type 2 diabetes mellitus with unspecified complications E11.8 ; Vertigo R42 ; Polydipsia R63.1 ; Polyuria R35.8 ; Hypothyroidism ( acquired) E03.9 ; Abnormal urinalysis R82.90 and Dysthymia F34.1 [place] [id number] [place] [address] 74358- 8858 05 Mar, 2017 Coronary artery disease of alatna artery with stable angina pectoris, unspecified whether alatna or transplanted heart I25.118 ; Systolic CHF, chronic I50.22 ; Hyperlipemia, mixed E78.2 and Essential hypertension I10 [facility] [id number] [place] [address] [id number] Feb, 2017 Dental caries K02.9 [facility], [place] [id number] [place] [address] 18064- 1804 10 Feb, 2017 Type 2 diabetes mellitus with diabetic neuropathy, unspecified E11.40 [place] [id number] [address]- 2950 Dec, Left shoulder pain M25.512 [facility], [place] [id number] [place] [address] 89903- 0480 Dec, [facility], [place] [id number] [place] [address] 57103- 9456 Dec, Type 2 diabetes mellitus with unspecified complications E11.8 [facility] [id number] [place] [address] [id number] Dec, Dental examination Z01.20 [facility], [place] [id number] [place] [address] 46893- 8953 Dec, Type 2 diabetes mellitus with diabetic neuropathy, unspecified E11.40 [facility], [place] [id number] [place] [address] 16269- 4822 Dec, [facility], [place] [id number] [place] [address] 02005- 8780 Dec, Type 2 diabetes mellitus with diabetic neuropathy, unspecified E11.40 [facility] [place] [id number] [place] [address] 61228- 7337 November, Left shoulder pain M25.512 [facility], [place] [id number] [place] [address] 11610- 0503 November, [facility] [place] [id number] [place] [address] 10547- 5514 November, Type 2 diabetes mellitus with unspecified complications E11.8 and Dysuria R30.0 [facility], [place] [id number] [place] [address] 95035- 6077 Oct, Left shoulder pain M25.512 [facility], [place] [id number] [place] [address] 66148- 6569 Sep, Left shoulder pain M25.512 [facility], [place] [id number] [place] [address] 75930- 5309 Sep, Pre-op testing Z01.818 [facility], [place] [id number] [place] [address] 14258- 8599 Sep, Pre-op testing Z01.818 [place] [id number] [place] [address] 50801- 1492 Sep, Pre-op testing Z01.818 [facility] [place] [id number] [place] [address] 93891- 0251 Sep, Pre-op testing Z01.818 and Mouth pain K13.79 [place] [id number] [place] [address] 87466- 5158 Sep, Left shoulder pain M25.512 [place] [id number] [place] [address] 24907- 9996 08 Aug, 2016 Other eczema L30.8 [place] [address] 02869- 7475 06 Aug, 2016 PVD (peripheral vascular disease) I73.9 ; Type 2 diabetes mellitus with unspecified complications E11.8 ; Acute cystitis with hematuria N30.01 ; Other eczema L30.8 ; Dysuria R30.0 and Left shoulder pain M25.512 [facility] [id number] [place] [address] 60656 -0480 Jul, Otalgia of right ear H92.01 and Blood in ear canal, right H92.21 [place] [id number] [place] [address] 83813- 2865 Jul, Arthralgia, unspecified joint M25.50 ; PVD (peripheral vascular disease) I73.9 and Neuropathy G62.9 [place] [id number] [place] [address] 38189- 0992 Jul, [place] [id number] [place] [address] 20752- 0915 Jun, Medicare annual wellness visit, initial Z00.00 ; Cervicalgia M54.2 ; Radiculopathy of cervical region M54.12 ; Encounter for immunization Z23 ; Type 2 diabetes mellitus with unspecified complications E11.8 and Essential hypertension I10 [facility] [place] [address] 02845- 1396 Jun, [facility], [place] [address] 27151- 9801 May, Hypothyroidism (acquired) E03.9 [facility] [place] [address] 84452- 5741 May, Dysuria R30.0 ; Essential hypertension I10 ; Hypothyroidism (acquired) E03.9 and PVD (peripheral vascular disease) I73.9 [facility] [address] 33120 -7568 May, Burning with urination R30.0 and Acute cystitis with hematuria N30.01 [facility] [place] [address] 97112- 8754 May, Dental examination Z01.20 [facility], [place] [address] 33078- 8149 May, Hypothyroidism (acquired) E03.9 [place] [address] 76610- 9235 Feb, [facility] [place] [address] 48917- 1085 Feb, 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 ; PVD ( peripheral vascular disease) I73.9 ; Type 2 diabetes mellitus with unspecified complications E11.8 and Essential hypertension I10 [facility] [place] [address] 11783- 0658 Jan, [place] [address] 88154- 8919 Jan, Hypothyroidism (acquired) E03.9 [facility], [place] [address] 86578- 5383 Jan, [place] [id number] [place] [address] 37564- 3873 Jan, [place] [id number] [place] [address] 70534- 2249 Jan, Type 2 diabetes mellitus with unspecified complications E11.8 ; 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 and Essential ( primary) hypertension I10 [place] [id number] [place] [address] 86929- 6098 Jan, Type 2 diabetes mellitus with unspecified complications E11.8 ; 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 ; Essential hypertension I10 and PVD (peripheral vascular disease) I73.9 [place] [id number] [place] [address] 12778- 0754 Jan, [place] [id number] [place] [address] 91011- 9296 Jan, [place] [id number] [place] [address] 24808- 4273 Jan, [place] [id number] [place] [address] 95218- 2727 Jan, Weakness R53.1 ; Fatigue, unspecified type R53.83 ; PVD ( peripheral vascular disease) I73.9 ; Acute osteomyelitis of other site M86.18 ; Type 2 diabetes mellitus with diabetic neuropathy, unspecified E11.40 and 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 [place] [address] [place] [address]- 8975 Dec, [place] [id number] [place] [address] 06424- 2108 Dec, Type 2 diabetes mellitus with unspecified complications E11.8 [place] [address] [place] [address]- 5698 Dec, [place] [id number] [place] [address] 60342- 7048 Dec, Pressure ulcer, unspecified pressure ulcer stage L89.90 and Type 2 diabetes mellitus with unspecified complications E11.8 [facility] [id number] [place] [address] 46614 -7652 Dec, Toe infection L08.9 [facility] [place] [id number] [place] [address] 01032- 3197 November, Dental caries K02.9 [facility] [place] [id number] [place] [address] 77761- 9734 November, [facility] [place] [id number] [place] [address] 66476- 2113 November, Dental examination Z01.20 [facility] [place] [id number] [place] [address] 39689- 4677 Sep, Lipoma of torso D17.1 and Thoracic neuritis M54.14 [facility] [place] [id number] [place] [address] 82353- 7224 Sep, [facility] [place] [id number] [place] [address] 87083- 1580 Aug, [facility] [id number] [place] [address] 11327 -2016 Jul, Dysuria R30.0 and UTI (urinary tract infection) N39.0 [facility] [place] [id number] [place] [address] 49273- 1203 Jun, Left shoulder pain M25.512 [facility] [place] [id number] [place] [address] 02474- 6859 May, Shoulder pain, left M25.512 [place] [id number] [place] [address] 68971- 5666 May, [facility] [place] [id number] [place] [address] 70802- 3709 May, [facility] [place] [address] [place] [address]- 9409 May, Left shoulder pain M25.512 [place] [address] 94401- 9349 May, [place] [id number] [place] [address] 87897- 5563 Apr, Encounter for immunization Z23 [place] [address] 26244- 8400 Apr, Urinary tract infection, site not specified N39.0 ; Hypotension, unspecified I95.9 ; Type 2 diabetes mellitus with unspecified complications E11.8 and Generalized edema R60.1 [place] [address] 96706- 4569 Apr, [place] [address] 68349- 5645 Mar, Diabetes with other specified manifestations, type II or unspecified type, not stated as uncontrolled 250.80 [place] [id number] [place] [address] 72061- 2345 Feb, Gout 274.9 and Diabetes 250.00 [place] [id number] [place] [address] 56150- 2362 Jan, [place] [id number] [place] [address] 99374- 3841 November, CAD (coronary artery disease) 414.00 and CHF (congestive heart failure) 428.0 [place] [id number] [place] [address] 72429- 5324 Oct, [place] [address] 85445- 2461 Oct, [place] [id number] [place] [address] 00527- 7486 Oct, [place] [address] 22009- 8086 Sep, [facility] [place] [facility] [address] [id number] [place] [address]- 8556 Sep, [facility] [place] [facility] [address] [id number] [place] [address]- 5732 Sep, [facility] [place] [facility] [address] [id number] [place] [address]- 0739 Sep, [facility] [place] [facility] [address] [id number] [place] [address]- 3541 Aug, [facility] [place] [facility] [address] [id number] [place] [address]- 4360 Aug, [facility] [place] [facility] [address] [id number] [place] [address]- 0322 Aug, [facility] [place] [facility] [address] [facility] [id number] [place] [address]- 3276 Aug, [facility] [place] [facility] [address] [id number] [place] [address]- 3464 Aug, [facility] [place] [facility] [address] [facility] [id number] [place] [address]- 5558 Aug, [facility] [place] [facility] [address] [facility] [id number] [place] [address]- 7826 Aug, [facility] [place] [facility] [address] [facility] [id number] [place] [address]- 2173 Aug, [facility] [place] [facility] [address] [id number] [place] [address] Jul, [facility] [place] [facility] [address] [id number] [place] [address] Jul, [facility] [place] [facility] [address] [facility] [id number] [place] [address] Jul, [facility] [place] [facility] [address] [facility] [id number] [place] [address] Jul, [facility] [place] [facility] [address] [id number] [place] [address] Jul, [facility] [address] [id number] [place] [address] Jul, [facility] [address] [id number] [place] [address] Jul, [facility] [address] [id number] [place] [address] Jul, [facility] [address] [id number] [place] [address] Jul, [facility] [address] [id number] [place] [address] Jul, [facility] [address] [id number] [place] [address] Jun, [facility] [address] [id number] [place] [address] Jun, [facility] [address] [id number] [place] [address] Jun, [facility] [address] [id number] [place] [address] Jun, [facility] [address] [id number] [place] [address] Jun, [facility] [facility] [address] [id number] [place] [address] Jun, [facility] [address] [id number] [place] [address] Jun, [facility] [place] [facility] [address] [id number] [place] [address] Jun, [facility] [place] [facility] [address] [id number] [place] [address]33 Jun, [facility] [address] [id number] [place] [address]32 Jun, [facility] [place] [facility] [address] [id number] [place] [address] 6052 May, [facility] [place] [facility] [address] [id number] [place] [address] 8763 May, [facility] [place] [facility] [address] [id number] [place] [address] 3[address] Mar, [facility] [place] [facility] [address] [id number] [place] [address]- 0896 Mar, [facility] [place] [facility] [address] [id number] [place] [address] 8506 Mar, [facility] [place] [facility] [address] [id number] [place] [address] 2970 Mar, [facility] [place] [facility] [address] [id number] [place] [address] 3489 Feb, [facility] [place] [facility] [address] [id number] [place] [address]32 Feb, [facility] [place] [facility] [address] [id number] [place] [address]- 0799 Feb, [facility] [place] [facility] [address] [id number] [place] [address]- 3189 Jan, [facility] [place] [facility] [address] [id number] [place] [address]- 3344 Jan, [facility] [place] [facility] [address] [id number] [place] [address]- 9588 Jan, [facility] [place] [facility] [address] [id number] [place] [address]- 4389 Jan, [facility] [place] [facility] [address] [id number] [place] [address]- 0516 Jan, [facility] [place] [facility] [address] [id number] [place] [address]- 9393 Jan, [facility] [place] [facility] [address] [id number] [place] [address]- 5897 Jan, [facility] [place] [facility] [address] [id number] [place] [address]- 5338 Jan, [facility] [place] [facility] [address] [id number] [place] [address]- 7836 Jan, [facility] [place] [facility] [address] [id number] [place] [address]- 5476 Jan, [facility] [place] [facility] [address] [id number] [place] [address]- 8582 Dec, [facility] [place] [facility] [address] [id number] [place] [address]- 8868 Dec, [facility] [place] [facility] [address] [id number] [place] [address]- 6986 November, [facility] [place] [facility] [address] [id number] [place] [address]- 6279 November, [facility] [place] [facility] [address] [id number] [place] [address]- 0733 November, [facility] [place] [facility] [address] [id number] [place] [address]- 4853 November, [facility] [place] [facility] [address] [id number] [place] [address]- 5920 November, [facility] [place] [facility] [address] [id number] [place] [address]- 5587 November, [facility] [place] [facility] [address] [id number] [place] [address]- 2239 November, [facility] [place] [facility] [address] [id number] [place] [address]- 2383 Oct, [facility] [place] [facility] [address] [id number] [place] [address]- 7113 Oct, [facility] [place] [facility] [address] [id number] [place] [address]- 0771 Sep, [facility] [place] [facility] [address] [id number] [place] [address]- 6043 Sep, [facility] [place] [facility] [address] [id number] [place] [address]- 7032 Sep, [facility] [place] [facility] [address] [id number] [place] [address]- 3335 Sep, [facility] [place] [facility] [address] [id number] [place] [address]- 6591 Sep, [facility] [place] [facility] [address] [id number] [place] [address]- 0882 Sep, [facility] [place] [facility] [address] [id number] [place] [address]- 9872 Sep, [facility] [place] [facility] [address] [id number] [place] [address]- 5947 Sep, [facility] [place] [facility] [address] [id number] [place] [address]- 0270 Sep, [facility] [place] [facility] [address] [id number] [place] [address]- 8852 Sep, [facility] [place] [facility] [address] [id number] [place] [address]- 8904 Aug, [facility] [place] [facility] [address] [id number] [place] [address]- 8834 Aug, [facility] [place] [facility] [address] [id number] [place] [address]- 8012 Jul, [facility] [place] [facility] [address] [id number] [place] [address]- 5305 Jul, [facility] [place] [facility] [address] [id number] [place] [address]- 4743 Jul, [facility] [place] [facility] [address] [id number] [place] [address]- 8413 Jul, [facility] [place] [facility] [address] [id number] [place] [address]- 0454 Jul, [facility] [place] [facility] [address] [id number] [place] [address]- 2400 Jul, [facility] [place] [facility] [address] [id number] [place] [address]- 2178 Jun, [facility] [place] [facility] [address] [facility] [id number] [place] [address]- 0285 Jun, [facility] [place] [facility] [address] [id number], [place] [address]- [address]241 Jun, [facility] [place] [facility] [address] [id number] [place] [address]- 6244 Jun, [facility] [place] [facility] [address] [id number] [place] [address]- 4235 May, [facility] [place] [facility] [address] [id number] [place] [address]- 2568 May, [facility] [place] [facility] [address] [id number], [place] [address]- 2417 May, [facility] [place] [facility] [address] [id number], [place] [address]- 4237 May, [facility] [place] [facility] [address] [id number], [place] [address]- 9088 May, [facility] [place] [facility] [address] [id number], [place] [address]- 8028 Apr, [facility] [place] [facility] [address] [id number], [place] [address]- 4475 31 Apr, 2013 [facility] [place] [facility] [address] [id number], [place] [address]- 5376 Apr, [facility] [place] [facility] [address] [id number], [place] [address]- 9693 Apr, [facility] [place] [facility] [address] [id number], [place] [address]- 4683 Apr, [facility] [place] [facility] [address] [id number] [place] [address]- 9885 Apr, [facility] [place] [facility] [address] [id number] [place] [address]- 3473 Apr, [facility] [place] [facility] [address] [id number] [place] [address]- 2173 Apr, [facility] [place] [facility] [address] [id number] [place] [address]- 1596 Apr, [facility] [place] [facility] [address] [id number] [place] [address]- 4504 Apr, [facility] [place] [facility] [address] [id number] [place] [address]- 2279 Apr, [facility] [place] [facility] [address] [id number] [place] [address]- 1773 Apr, [facility] [place] [facility] [address] [id number] [place] [address]- 3462 Mar, [facility] [place] [facility] [address] [id number] [place] [address]- 2286 Mar, [facility] [place] [facility] [address] [id number] [place] [address]- 2173 Feb, [facility] [place] [facility] [address] [id number] [place] [address]- 6782 Jan, [facility] [place] [facility] [address] [id number] [place] [address]- 6087 Jan, [facility] [place] [facility] [address] [id number] [place] [address] 2545 Jan, [facility] [place] [facility] [address] [id number] [place] [address]- 2865 Jan, [facility] [place] [facility] [address] [id number] [place] [address]- 2714 Dec, [facility] [place] [facility] [address] [id number] [place] [address]- 7194 Dec, [facility] [place] [facility] [address] [id number] [place] [address]- 0305 Dec, [facility] [address] [id number] [place] [address]- 7364 Dec, [facility] [address] [id number] [place] [address]- 6262 Dec, [facility] [address] [id number] [place] [address]- 9027 Dec, [facility] [address] [id number] [place] [address]- 6606 05 Dec, 2012 [facility] [address] [id number] [place] [address]- 0390 November, [facility] [address] [id number] [place] [address]- 5485 November, [facility] [address] [id number] [place] [address]- 5175 November, [facility] [address] [id number] [place] [address]- 2308 Oct, [facility] [address] [id number] [place] [address]- 6677 Oct, [facility] [address] [id number] [place] [address]- 5113 Oct, [facility] [address] [id number] [place] [address]- 5699 Oct, [facility] [address] [id number] [place] [address]- 6907 Oct, [facility] [place] [facility] [address] [id number] [place] [address]- 8979 Sep, [facility] [place] [facility] [address] [id number] [place] [address]- 2510 Sep, [facility] [address] [id number] [place] [address]- 0839 Sep, [facility] [address] [id number] [place] [address]- 6693 Sep, [facility] [place] [facility] [address] [id number] [place] [address]- 3156 Aug, [facility] [address] [id number] [place] [address]- 1306 Aug, [facility] [place] [facility] [address] [id number] [place] [address]- 7511 Aug, [facility] [address] [id number] [place] [address]- 4690 Aug, [facility] [address] [id number] [place] [address]- 3640 Jul, [facility] [address] [facility] [id number] [place] [address]- 0076 Jul, [facility] [address] [id number] [place] [address]- 4184 Jun, [facility] [address] [id number] [place] [address]- 2661 Jun, [facility] [address] [facility] [id number] [place] [address]- 5624 Jun, [facility] [address] [id number] [place] [address]- 9466 Jun, [facility] [place] [facility] [address] [id number] [place] [address]- 6388 May, [facility] [place] [facility] [address] [id number] [place] [address]- 9716 May, [facility] [place] [facility] [address] [id number] [place] [address]- 0356 May, [facility] [place] [facility] [address] [facility] [id number] [place] [address]- 2418 May, [facility] [place] [facility] [address] [id number] [place] [address]- 2475 Apr, [facility] [place] [facility] [address] [id number] [place]32 Apr, [facility] [place] [facility] [address] [id number] [place] Apr, [facility] [place] [facility] [address] [id number] [place] [address]- 0578 Apr, [facility] [place] [facility] [address] [id number] [place] [address]- 1872 Apr, [facility] [place] [facility] [address] [id number] [place] [address]- 5250 Apr, [facility] [place] [facility] [address] [id number] [place] [address]- 9531 Apr, [facility] [place] [facility] [address] [id number] [place] [address]- 7123 Apr, [facility] [place] [facility] [address] [id number] [place] [address]- 5961 Apr, [facility] [place] [facility] [address] [id number] [place] [address]- 2726 Apr, [facility] [place] [facility] [address] [id number] [place] [address]- 3884 Feb, [facility] [place] [facility] [address] [id number] [place] [address]- 9755 Feb, [facility] [place] [facility] [address] [id number] [place] [address]- 3132 Jan, [facility] [place] [facility] [address] [id number] [place] [address]- 4432 Jan, [facility] [place] [facility] [address] [id number] [place] [address] 2545 Jan, [facility] [place] [facility] [address] [id number] [place] [address]- 5879 Jan, [facility] [place] [facility] [address] [id number] [place] [address]- 0747 Jan, [facility] [place] [facility] [address] [id number] [place] [address]- 2156 Jan, [facility] [place] [facility] [address] [id number] [place] [address]- 9596 Dec, [facility] [place] [facility] [address] [id number] [place] [address]- 7696 November, [facility] [place] [facility] [address] [id number] [place] [address]- 3536 November, [facility] [place] [facility] [address] [id number] [place] [address]- 5136 November, [facility] [place] [facility] [address] [id number] [place] [address]- 8996 Sep, [facility] [place] [facility] [address] [id number] [place] [address]- 5412 Sep, [facility] [place] [facility] [address] [id number] [place] [address]- 6010 Sep, [facility] [place] [facility] [address] [id number] [place] [address]- 0238 Sep, [facility] [place] [facility] [address] [id number] [place] [address]- 5196 Sep, [facility] [place] [facility] [address] [id number] [place] [address]- 2546 Sep, [facility] [place] [facility] [address] [id number] [place] [address]- 1956 Aug, [facility] [place] [facility] [address] [id number] [place] [address]- 7866 Aug, [facility] [place] [facility] [address] [id number] [place] [address]- 2546 Aug, [facility] [place] [facility] [address] [id number] [place] [address]- 2613 11 Jul, 2011 [facility] [address] [id number] [place] [address]- 0033 Jul, [facility] [address] [id number] [place] [address]- 1110 10 Jul, 2011 [facility] [address] [id number] [place] [address]- 6704 Jul, [facility] [address] [id number] [place] [address]- 9972 Jun, [facility] [address] [id number] [place] [address]- 1813 Jun, [facility] [address] [id number] [place] [address]- 1089 Jun, [facility] [address] [id number] [place] [address]- 9296 Jun, [facility] [address] [id number] [place] [address]- 7496 Jun, [facility] [address] [id number] [place] [address]- 4853 Jun, [facility] [address] [id number] [place] [address]- 1825 May, [facility] [address] [id number] [place] [address]- 9213 May, [facility] [address] [id number] [place] [address]- 0667 May, [facility] [address] [id number] [place] [address]- 6581 Apr, [facility] [place] [facility] [address] [id number] [place] [address]- 9553 Jan, [facility] [address] [id number] [place] [address]- 4607 Jun, [facility] [address] [id number] [place] [address]- 1054 20 Jun, 2010 [facility] [place] [facility] [address] [id number] [place] [address]- 8326 15 Jun, 2010 [facility] [place] [facility] [address] [id number] [place] [address] 2546 15 Jun, 2010 [facility] [place] [facility] [address] [id number] [place] [address] 2546 15 Jun, 2010 [facility] [address] [id number] [place] [address]- 3776 13 Jun, 2010 [facility] [place] [facility] [address] [id number] [place] [address]- 4156 13 Jun, 2010 [facility] [address] [id number] [place] [address]- 4386 Apr, [facility] [address] [id number] [place] [address]- 2028 17 Feb, 2010 [facility] [place] [facility] [address] [id number] [place] [address]- 7624 15 Aug, 2009 [facility] [place] [facility] [address] [id number] [place] [address]- 5830 Jul, [facility] [place] [facility] [address] [id number] [place] [address] 254 Jul, [facility] [place] [facility] [address] [id number] [place] [address]- 2549 29 Jun, 2009 [facility] [place] [facility] [address] [id number] [place] [address] 2546 Jun, [facility] [place] [facility] [address] [id number] [place] [address]- 2546 28 Jun, 2009 [facility] [place] [facility] [address] [id number] [place] [address]336 22 Jun, 2009 [facility] [place] [facility] [address] [id number], [place] [address]- 8036 Jun, [facility] [place] [id number], [place] [address]- 0456 Jun, [facility] [place] [id number], [place] [address]- 3928 Jun, [facility] [place] [id number], [place] [address]- 3311 May, [facility] [place] [id number] [place] [address]25- 0694 May, [facility] [place] [id number] [place] [address]- 3116 May, [facility] [place] [id number] [place] [address]36[address]- 0152 May, [facility] [place] [id number] [place] [address]- 1167 May, [facility] [place] [id number], [place] [address]- 9934 May, [facility] [place] [id number] 4972 May, [facility] [place] [id number], [place] [address]- 3247 Apr, [facility] [place] [id number], [place] [address]- 3189 Apr, [facility] [place] [id number], [place] [address]- 8007 Jan, [facility], [place] [id number] [place] [address] Oct, IMMUNIZATIONS No Known Immunizations SOCIAL HISTORY Never Assessed REASON FOR VISIT Referral Request PLAN OF CARE VITAL SIGNS MEDICATIONS Medication Instructions Dosage Frequency Start Date End Date Duration Status Citalopram Hydrobromide 20 mg Orally Once a day 1 1/2 tablet 24h 30 days Active Namzaric 7-10 MG Orally Once a day 1 capsule in the evening 24h Feb, 30 day(s) Active RESULTS No Results PROCEDURES [...] Medical History peripheral artery disease Medical History Parkinson disease Surgical History quadruple bypass 2006 Surgical History [...]
--- OUTSIDE RECORDS SUMMARY | 2018-11-09 12:59 | XMS REPORT ---
Author Author PRABHA [facility] Address [address] [place] [address] Care Team Providers Care Classification Analyst Name Role Phone PRABHA HILL Unavailable PROBLEMS Type Condition ICD9-CM Code LOA35-EI Code Onset Dates Condition Status SNOMED Code Problem Hypoglycemia E16.2 Active 901954424 Problem Hallucinations R44.3 Active 9930101 Problem Unsteady gait R26.81 Active 33974370 Problem 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 Active [id number] Problem Dysuria R30.0 Active 87929691 Problem Anxiety F41.9 Active 49958827 Problem Dementia in other diseases classified elsewhere without behavioral disturbance F02.80 Active 999652582 Problem Other frontotemporal dementia G31.09 Active 052168553 Problem Parkinsons disease G20 Active 84018125 Problem Episodic cluster headache, not intractable G44.019 Active 680447716 Problem Neurogenic orthostatic hypotension G90.3 Active 779671842 Problem Mixed stress and urge urinary incontinence N39.46 Active 722009109 Problem 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 Active 731558367 Problem Essential hypertension I10 Active 88958940 Problem Type 2 diabetes mellitus with unspecified complications E11.8 Active 45949727 Problem PVD (peripheral vascular disease) I73.9 Active 173416632 Problem Dysthymia F34.1 Active 21883002 Problem Polydipsia R63.1 Active 44998601 Problem Coronary artery disease involving [place] coronary artery of [place] heart without angina pectoris I25.10 Active 9046714981399 Problem Hypothyroidism (acquired) E03.9 Active 613165643 Problem Hyperlipemia, mixed E78.2 Active 411663998 Problem Dementia with Lewy bodies G31.83 Active 481368746 Problem Neuropathy G62.9 Active 402965833 Problem Hypernatremia E87.0 Active 64673773 ALLERGIES No Information ENCOUNTERS Encounter Location Date Diagnosis [facility] [id number] [place] [address] 61866- 5981 Mar, [facility] [id number] [place] [address] 97744- 9863 Mar, [facility] [id number] [place] [address] 27816- 6199 Mar, [facility] [id number] [place] [address] 40645- 9301 Mar, [facility] [id number] [place] [address] 36918- 6256 Mar, [facility] [id number] [place] [address] 49096- 4818 Mar, Cellulitis of left lower extremity L03.116 and Petechial rash R23.3 [facility] [id number] [place] [address] 88335- 6507 Feb, Left shoulder pain M25.512 [facility] [id number] [place] [address] 73982- 0903 Feb, Left shoulder pain M25.512 [facility] [id number] [place] [address] 55141- 6055 Feb, 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 [facility] [id number] [place] [address] 99345- 3309 Jan, Left shoulder pain M25.512 [facility] [id number] [place] [address] 64270- 5893 Dec, Parkinsons disease G20 [facility] [id number] [place] [address] 20187- 4951 Dec, Left shoulder pain M25.512 [facility] [id number] [place] [address] 72887- 4567 Dec, Type 2 diabetes mellitus with unspecified complications E11.8 ; Anxiety F41.9 ; Therapeutic drug monitoring Z51.81 and Analgesic use Z79.899 [facility] [id number] [place] [address] 83396- 2316 November, [facility] [id number] [place] [address] 61914- 6096 November, [facility] [id number] [place] [address] 75204- 1831 November, Left shoulder pain M25.512 [facility] [id number] [place] [address] 97902- 4904 Oct, [facility] [id number] [place] [address] 25233 -7369 Oct, [facility] [id number] [place] [address] 29051- 5631 Oct, Parkinsons disease G20 [facility] [id number] [place] [address] 40785 -3718 Oct, Acute cystitis without hematuria N30.00 and Viral upper respiratory tract infection J06.9 [facility] [facility] [id number] [place] [address] 32923- 9751 Oct, [facility] [id number] [place] [address] 55092- 3303 Oct, Type 2 diabetes mellitus with unspecified complications E11.8 [facility] [id number] [place] [address] 46315- 6816 Oct, Left shoulder pain M25.512 [facility] [id number] [place] [address] 83111- 4468 Oct, Type 2 diabetes mellitus with unspecified complications E11.8 ; Dysuria R30.0 and Neurogenic orthostatic hypotension G90.3 [facility] [id number] [place] [address] 60172- 8009 Sep, Left shoulder pain M25.512 [facility] [id number] [place] [address] 75779- 0098 Sep, Medicare annual wellness visit, initial Z00.00 ; Parkinsons disease G20 ; Type 2 diabetes mellitus with unspecified complications E11.8 ; Essential hypertension I10 ; Coronary artery disease involving [place] coronary artery of [place] heart without angina pectoris I25.10 ; Hypothyroidism (acquired ) E03.9 ; PVD (peripheral vascular disease) I73.9 ; Dysthymia F34.1 ; Hyperlipemia, mixed E78.2 ; Neuropathy G62.9 ; Encounter for immunization Z23 ; Encounter for other screening for malignant neoplasm of breast Z12.39 and Mixed stress and urge urinary incontinence N39.46 [facility] [address] 45520- 5666 Aug, Parkinsons disease G20 [facility] [address] 50049- 0931 Aug, Type 2 diabetes mellitus with unspecified complications E11.8 ; Left shoulder pain M25.512 and Hypotensive episode I95.9 [place] [address] 91568- 2364 09 Aug, 2017 Coronary artery disease involving [place] coronary artery of [place] heart without angina pectoris I25.10 [facility] [address] 84569- 0117 Aug, Type 2 diabetes mellitus with unspecified complications E11.8 [facility] [id number] [place] [address] 92029- 5462 Jul, Callus of foot L84 [facility] [facility] [address] 61246- 3830 Jul, [facility] [id number] [place] [address] 21304- 0080 Jul, Callus of foot L84 ; Episodic cluster headache, not intractable G44.019 ; Type 2 diabetes mellitus with unspecified complications E11.8 and Parkinsons disease G20 [facility] [id number] [place] [address] 18923- 8689 Jul, [facility] [id number] [place] [address] 41219- 0639 Jul, [facility] [id number] [place] [address] 29267- 8341 Jun, Type 2 diabetes mellitus with unspecified complications E11.8 ; Unsteady gait R26.81 ; Forgetfulness R68.89 and Hallucinations R44.3 [facility] [facility] [id number] [place] [address] 11409- 2257 Jun, [facility] [id number] [place] [address] 59953- 6077 Jun, Left shoulder pain M25.512 [facility] [id number] [place] [address] 36327- 2883 May, Hypernatremia E87.0 and Polydipsia R63.1 [id number] [place] [address] 46243- 6213 May, Hypernatremia E87.0 and Polydipsia R63.1 [facility] [id number] [place] [address] 98946- 3783 May, Hypoglycemia E16.2 ; Dysuria R30.0 ; Unsteadiness on feet R26.81 ; Forgetfulness R68.89 ; Type 2 diabetes mellitus with unspecified complications E11.8 and Yeast infection involving the vagina and surrounding area B37.3 [facility] [id number] [place] [address] 01005- 8032 May, Acute cystitis without hematuria N30.00 [facility] [id number] [place] [address] 90157 -4807 Apr, Dysuria R30.0 and Acute cystitis without hematuria N30.00 [facility] [id number] [place] [address] 64586- 4418 Apr, Hypernatremia E87.0 and Polydipsia R63.1 [place] [id number] [place] [address] 37228- 4765 Apr, Vertigo R42 and Type 2 diabetes mellitus with unspecified complications E11.8 [facility] [id number] [place] [address] 88488- 8814 20 Mar, 2017 [facility] [id number] [place] [address] 43101- 4029 19 Mar, 2017 Left shoulder pain M25.512 [place] [address] 61376- 5603 13 Mar, 2017 Vertigo R42 [place] [address] 77427- 5795 12 Mar, 2017 Polydipsia R63.1 [facility] [facility] [id number] [place] [address] 45991- 1182 12 Mar, 2017 Polydipsia R63.1 [facility] [id number] [place] [address] 46409- 5211 11 Mar, 2017 Vertigo R42 [facility] [id number] [place] [address] 18613- 5340 07 Mar, 2017 Type 2 diabetes mellitus with unspecified complications E11.8 ; Vertigo R42 ; Polydipsia R63.1 ; Polyuria R35.8 ; Hypothyroidism ( acquired) E03.9 ; Abnormal urinalysis R82.90 and Dysthymia F34.1 [facility] [id number] [place] [address] 92441- 6590 05 Mar, 2017 Coronary artery disease of [place] artery with stable angina pectoris, unspecified whether [place]og[place] or transplanted heart I25.118 ; Systolic CHF, chronic I50.22 ; Hyperlipemia, mixed E78.2 and Essential hypertension I10 [facility] [id number] [place] [address] [id number] 16 Feb, 2017 Dental caries K02.9 [facility] [id number] [place] [address] 87135- 6475 10 Feb, 2017 Type 2 diabetes mellitus with diabetic neuropathy, unspecified E11.40 [place] [address] [address]- 3270 Dec, Left shoulder pain M25.512 [facility] [id number] [place] [address] 25460- 7613 Dec, [facility] [id number] [place] [address] 38250- 6859 Dec, Type 2 diabetes mellitus with unspecified complications E11.8 [facility] [id number] [place] [address] [id number] Dec, Dental examination Z01.20 [facility] [id number] [place] [address] 05795- 9185 Dec, Type 2 diabetes mellitus with diabetic neuropathy, unspecified E11.40 [facility] [id number] [place] [address] 28054- 4656 Dec, [facility] [id number] [place] [address] 10517- 5595 Dec, Type 2 diabetes mellitus with diabetic neuropathy, unspecified E11.40 [facility] [id number] [place] [address] 90970- 8140 November, Left shoulder pain M25.512 [facility] [address] [place] [address] 89565- 7439 November, [facility] [id number] [place] [address] 70064- 6534 November, Type 2 diabetes mellitus with unspecified complications E11.8 and Dysuria R30.0 [facility] [id number] [place] [address] 40796- 3395 Oct, Left shoulder pain M25.512 [facility] [id number] [place] [address] 57787- 7182 Sep, Left shoulder pain M25.512 [facility] [address] [place] [address] 49899- 0952 Sep, Pre-op testing Z01.818 [facility] [address] [place] [address] 99067- 0922 Sep, Pre-op testing Z01.818 [facility] [id number] [place] [address] 88240- 3840 Sep, Pre-op testing Z01.818 [facility] [id number] [place] [address] 38179- 5741 Sep, Pre-op testing Z01.818 and Mouth pain K13.79 [facility] [facility] [id number] [place] [address] 96263- 0903 Sep, Left shoulder pain M25.512 [place] [id number] [place] [address] 35424- 1548 08 Aug, 2016 Other eczema L30.8 [place] [address] 46550- 1658 06 Aug, 2016 PVD (peripheral vascular disease) I73.9 ; Type 2 diabetes mellitus with unspecified complications E11.8 ; Acute cystitis with hematuria N30.01 ; Other eczema L30.8 ; Dysuria R30.0 and Left shoulder pain M25.512 [facility] [address] [place] [address] 55586 -8782 Jul, Otalgia of right ear H92.01 and Blood in ear canal, right H92.21 [facility] [id number] [place] [address] 94374- 6158 Jul, Arthralgia, unspecified joint M25.50 ; PVD (peripheral vascular disease) I73.9 and Neuropathy G62.9 [place] [id number] [place] [address] 30006- 2646 Jul, [place] [id number] [place] [address] 92997- 9926 Jun, Medicare annual wellness visit, initial Z00.00 ; Cervicalgia M54.2 ; Radiculopathy of cervical region M54.12 ; Encounter for immunization Z23 ; Type 2 diabetes mellitus with unspecified complications E11.8 and Essential hypertension I10 [facility] [address] 99725- 8105 Jun, [facility] [address] 62901- 9682 May, Hypothyroidism (acquired) E03.9 [facility] [address] 24069- 5846 May, Dysuria R30.0 ; Essential hypertension I10 ; Hypothyroidism (acquired) E03.9 and PVD (peripheral vascular disease) I73.9 [facility] [address] 33977 -4783 May, Burning with urination R30.0 and Acute cystitis with hematuria N30.01 [facility] [address] 00417- 3404 May, Dental examination Z01.20 [facility] [address] 18601- 6367 May, Hypothyroidism (acquired) E03.9 [place] [address] 84961- 0220 Feb, [facility] [address] 71665- 6977 Feb, 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 ; PVD ( peripheral vascular disease) I73.9 ; Type 2 diabetes mellitus with unspecified complications E11.8 and Essential hypertension I10 [facility] [address] 67395- 4573 Jan, [place] [address] 00799- 5176 Jan, Hypothyroidism (acquired) E03.9 [facility] [address] 22367- 5973 Jan, [place] [address] [place] [address] 07655- 3278 Jan, [place] [address] [place] [address] 02331- 4585 Jan, Type 2 diabetes mellitus with unspecified complications E11.8 ; 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 and Essential ( primary) hypertension I10 [place] [id number] [place] [address] 55656- 8248 Jan, Type 2 diabetes mellitus with unspecified complications E11.8 ; 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 ; Essential hypertension I10 and PVD (peripheral vascular disease) I73.9 [place] [id number] [place] [address] 92229- 8322 Jan, [place] [id number] [place] [address] 32135- 2658 Jan, [place] [id number] [place] [address] 52969- 2015 Jan, [place] [id number] [place] [address] 72125- 2871 Jan, Weakness R53.1 ; Fatigue, unspecified type R53.83 ; PVD ( peripheral vascular disease) I73.9 ; Acute osteomyelitis of other site M86.18 ; Type 2 diabetes mellitus with diabetic neuropathy, unspecified E11.40 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 [place] [address] [address]- 0100 Dec, [place] [facility] [id number] [place] [address] 26675- 3230 Dec, Type 2 diabetes mellitus with unspecified complications E11.8 [place] [address] [address]- 0625 Dec, [place] [id number] [place] [address] 18722- 2692 Dec, Pressure ulcer, unspecified pressure ulcer stage L89.90 and Type 2 diabetes mellitus with unspecified complications E11.8 [facility] [id number] [place] [address] 84700 -8656 Dec, Toe infection L08.9 [facility] [id number] [place] [address] 49638- 0975 November, Dental caries K02.9 [facility] [id number] [place] [address] 83259- 0621 November, [facility] [id number] [place] [address] 20668- 3022 November, Dental examination Z01.20 [facility] [id number] [place] [address] 30379- 3135 Sep, Lipoma of torso D17.1 and Thoracic neuritis M54.14 [facility] [id number] [place] [address] 77126- 1213 Sep, [facility] [id number] [place] [address] 84611- 9116 Aug, [facility] [id number] [place] [address] 23146 -2461 Jul, Dysuria R30.0 and UTI (urinary tract infection) N39.0 [facility] [id number] [place] [address] 39582- 3874 Jun, Left shoulder pain M25.512 [facility] [id number] [place] [address] 98675- 0994 May, Shoulder pain, left M25.512 [place] [id number] [place] [address] 51241- 4443 May, [facility] [id number] [place] [address] 64465- 5248 May, [facility] [address] [place] [address]- 4195 May, Left shoulder pain M25.512 [place] [address] 47029- 8072 May, [place] [id number] [place] [address] 97785- 4022 Apr, Encounter for immunization Z23 [place] [address] 97341- 5463 Apr, Urinary tract infection, site not specified N39.0 ; Hypotension, unspecified I95.9 ; Type 2 diabetes mellitus with unspecified complications E11.8 and Generalized edema R60.1 [place] [address] 10016- 6741 Apr, [place] [address] 88920- 2148 Mar, Diabetes with other specified manifestations, type II or unspecified type, not stated as uncontrolled 250.80 [place] [id number] [place] [address] 65232- 5265 Feb, Gout 274.9 and Diabetes 250.00 [place] [id number] [place] [address] 68240- 8607 Jan, [place] [id number] [place] [address] 64003- 4262 November, CAD (coronary artery disease) 414.00 and CHF (congestive heart failure) 428.0 [place] [id number] [place] [address] 53051- 6022 Oct, [place] [address] 89650- 6013 Oct, [place] [id number] [place] [address] 22819- 6736 Oct, [place] [address] 41563- 3893 Sep, [facility] [place] [facility] [address] [id number] [place] [address]- 2218 Sep, [facility] [place] [facility] [address] [id number] [place] [address]- 4074 Sep, [facility] [place] [facility] [address] [id number] [place] [address]- 1475 Sep, [facility] [place] [facility] [address] [id number] [place] [address]- 8333 Aug, [facility] [place] [facility] [address] [id number] [place] [address]- 3528 Aug, [facility] [place] [facility] [address] [id number] [place] [address]- 4567 Aug, [facility] [place] [facility] [address] [facility] [id number] [place] [address]- 7728 Aug, [facility] [place] [facility] [address] [id number] [place] [address]- 5433 Aug, [facility] [place] [facility] [address] [facility] [id number] [place] [address]- 1209 Aug, [facility] [place] [facility] [address] [facility] [id number] [place] [address]- 8514 Aug, [facility] [place] [facility] [address] [facility] [id number] [place] [address]- 9019 Aug, [facility] [place] [facility] [address] [id number] [place] [address]- 5336 Jul, [facility] [place] [facility] [address] [id number] [place] [address]- 6887 Jul, [facility] [place] [facility] [address] [facility] [id number] [place] [address]- 7594 Jul, [facility] [place] [facility] [address] [facility] [id number] [place] [address]- 8972 Jul, [facility] [place] [facility] [address] [id number] [place] [address]- 5829 Jul, [facility] [address] [id number] [place] [address]- 9661 Jul, [facility] [address] [id number] [place] [address]- 4263 Jul, [facility] [address] [id number] [place] [address]- 4136 Jul, [facility] [address] [id number] [place] [address]- 6626 Jul, [facility] [address] [id number] [place] [address]- 7484 Jul, [facility] [address] [id number] [place] [address]- 6079 Jun, [facility] [address] [id number] [place] [address] Jun, [facility] [address] [id number] [place] [address] Jun, [facility] [address] [id number] [place] [address] Jun, [facility] [address] [id number] [place] [address] Jun, [facility] [address] [id number] [place] [address] Jun, [facility] [address] [id number] [place] [address] Jun, [facility] [place] [facility] [address] [id number] [place] [address] Jun, [facility] [place] [facility] [address] [id number] [place] [address] Jun, [facility] [address] [id number] [place] [address] Jun, [facility] [place] [facility] [address] [id number] [place] [address] May, [facility] [place] [facility] [address] [id number] [place] [address] May, [facility] [place] [facility] [address] [id number] [place] [address] Mar, [facility] [place] [facility] [address] [id number] [place] [address] Mar, [facility] [place] [facility] [address] [id number] [place] [address] Mar, [facility] [place] [facility] [address] [id number] [place] [address] Mar, [facility] [place] [facility] [address] [id number] [place] [address] Feb, [facility] [place] [facility] [address] [id number] [place] [address] Feb, [facility] [place] [facility] [address] [id number] [place] [address] Feb, [facility] [place] [facility] [address] [id number] [place] [address] Jan, [facility] [place] [facility] [address] [id number] [place] [address] Jan, [facility] [place] [facility] [address] [id number] [place] [address] Jan, [facility] [place] [facility] [address] [id number] [place] [address] Jan, [facility] [place] [facility] [address] [id number] [place] [address] Jan, [facility] [place] [facility] [address] [id number] [place] [address] Jan, [facility] [place] [facility] [address] [id number] [place] [address] Jan, [facility] [place] [facility] [address] [id number] [place] [address] Jan, [facility] [place] [facility] [address] [id number] [place] [address] Jan, [facility] [place] [facility] [address] [id number] [place] [address] 0657 Jan, [facility] [place] [facility] [address] [id number] [place] [address] 7433 Dec, [facility] [place] [facility] [address] [id number] [place] [address]309 Dec, [facility] [place] [facility] [address] [id number] [place] [address]- 2744 November, [facility] [place] [facility] [address] [id number] [place] [address] 4299 November, [facility] [place] [facility] [address] [id number] [place] [address]- 7577 November, [facility] [place] [facility] [address] [id number] [place] [address]- 5125 November, [facility] [place] [facility] [address] [id number] [place] [address] 9452 November, [facility] [place] [facility] [address] [id number] [place] [address]- 7010 November, [facility] [place] [facility] [address] [id number] [place] [address]- 0287 November, [facility] [place] [facility] [address] [id number] [place] [address]- 6570 Oct, [facility] [place] [facility] [address] [id number] [place] [address]- 9035 Oct, [facility] [place] [facility] [address] [id number] [place] [address]- 6053 Sep, [facility] [place] [facility] [address] [id number] [place] [address]- 6212 Sep, [facility] [place] [facility] [address] [id number] [place] [address]- 9563 Sep, [facility] [place] [facility] [address] [id number] [place] [address]- 1258 Sep, [facility] [place] [facility] [address] [id number] [place] [address]- 6132 Sep, [facility] [place] [facility] [address] [id number] [place] [address]- 0110 Sep, [facility] [place] [facility] [address] [id number] [place] [address]- 0342 Sep, [facility] [place] [facility] [address] [id number] [place] [address]- 2576 Sep, [facility] [place] [facility] [address] [id number] [place] [address]- 2118 Sep, [facility] [place] [facility] [address] [id number] [place] [address]- 2454 Sep, [facility] [place] [facility] [address] [id number] [place] [address]- 9065 Aug, [facility] [place] [facility] [address] [id number] [place] [address]- 6743 Aug, [facility] [place] [facility] [address] [id number] [place] [address]- 5396 Jul, [facility] [place] [facility] [address] [id number] [place] [address]- 7979 Jul, [facility] [place] [facility] [address] [id number] [place] [address]- 0535 Jul, [facility] [place] [facility] [address] [id number] [place] [address]- 7132 Jul, [facility] [place] [facility] [address] [id number] [place] [address]- 9199 Jul, [facility] [place] [facility] [address] [id number] [place] [address]- 9486 Jul, [facility] [place] [facility] [address] [id number] [place] [address]- 2686 Jun, [facility] [place] [facility] [address] [facility] [id number] [place] [address]- 3924 Jun, [facility] [place] [facility] [address] [id number], [place] [address]- 5716 Jun, [facility] [place] [facility] [address] [id number] [place] [address]- 8814 Jun, [facility] [place] [facility] [address] [id number] [place] [address]- 8934 May, [facility] [place] [facility] [address] [id number] [place] [address]- 7531 May, [facility] [place] [facility] [address] [id number], [place] [address]- 9820 May, [facility] [place] [facility] [address] [id number], [place] [address]- 3358 May, [facility] [place] [facility] [address] [id number], [place] [address]- 6817 May, [facility] [place] [facility] [address] [id number], [place] [address]- 4[address] Apr, [facility] [place] [facility] [address] [id number], [place] [address]- [address] 31 Apr, 2013 [facility] [place] [facility] [address] [id number], [place] [address]- 2594 Apr, [facility] [place] [facility] [address] [id number], [place] [address]- 6063 Apr, [facility] [place] [facility] [address] [id number], [place] [address]- 5443 Apr, [facility] [place] [facility] [address] [id number] [place] [address]- 5911 Apr, [facility] [place] [facility] [address] [id number] [place] [address]- 3490 Apr, [facility] [place] [facility] [address] [id number] [place] [address]- 9888 Apr, [facility] [place] [facility] [address] [id number] [place] [address]- 8176 Apr, [facility] [place] [facility] [address] [id number] [place] [address]- 2220 Apr, [facility] [place] [facility] [address] [id number] [place] [address]- 0305 Apr, [facility] [place] [facility] [address] [id number] [place] [address]- 6373 Apr, [facility] [place] [facility] [address] [id number] [place] [address]- 0988 Mar, [facility] [place] [facility] [address] [id number] [place] [address]- 0527 Mar, [facility] [place] [facility] [address] [id number] [place] [address]- 3376 Feb, [facility] [place] [facility] [address] [id number] [place] [address]- 1114 Jan, [facility] [place] [facility] [address] [id number] [place] [address]- 6725 Jan, [facility] [place] [facility] [address] [id number] [place] [address] 2540 Jan, [facility] [place] [facility] [address] [id number] [place] [address]- 8760 Jan, [facility] [place] [facility] [address] [id number] [place] [address]- 3515 Dec, [facility] [place] [facility] [address] [id number] [place] [address]- 3142 Dec, [facility] [place] [facility] [address] [id number] [place] [address]- 0675 Dec, [facility] [address] [id number] [place] [address]- 7764 Dec, [facility] [address] [id number] [place] [address]- 3460 Dec, [facility] [address] [id number] [place] [address]- 9437 Dec, [facility] [address] [id number] [place] [address]- 2621 05 Dec, 2012 [facility] [address] [id number] [place] [address]- 0655 November, [facility] [address] [id number] [place] [address]- 2587 November, [facility] [address] [id number] [place] [address]- 8258 November, [facility] [address] [id number] [place] [address]- 0803 Oct, [facility] [address] [id number] [place] [address]- 5040 Oct, [facility] [address] [id number] [place] [address]- 6742 Oct, [facility] [address] [id number] [place] [address]- 9407 Oct, [facility] [address] [id number] [place] [address]- 0272 Oct, [facility] [place] [facility] [address] [id number] [place] [address]- 8727 Sep, [facility] [place] [facility] [address] [id number] [place] [address]- 7032 Sep, [facility] [address] [id number] [place] [address]- 9854 Sep, [facility] [address] [id number] [place] [address]- 4975 Sep, [facility] [place] [facility] [address] [id number] [place] [address]- 5366 Aug, [facility] [address] [id number] [place] [address]- 2796 Aug, [facility] [place] [facility] [address] [id number] [place] [address]- 3549 Aug, [facility] [address] [id number] [place] [address]- 7155 Aug, [facility] [address] [id number] [place] [address]- 8006 Jul, [facility] [address] [facility] [id number] [place] [address]- 0676 Jul, [facility] [address] [id number] [place] [address]- 8931 Jun, [facility] [address] [id number] [place] [address]- 3080 Jun, [facility] [address] [facility] [id number] [place] [address]- 6967 Jun, [facility] [address] [id number] [place] [address]- 8964 Jun, [facility] [place] [facility] [address] [id number] [place] [address]- 0098 May, [facility] [place] [facility] [address] [id number] [place] [address]- 5941 May, [facility] [place] [facility] [address] [id number] [place] [address]- 4683 May, [facility] [place] [facility] [address] [facility] [id number] [place] [address]- 9860 May, [facility] [place] [facility] [address] [id number] [place] [address]- 0889 Apr, [facility] [place] [facility] [address] [id number] [place] 3714 Apr, [facility] [place] [facility] [address] [id number] [place] 1259 Apr, [facility] [place] [facility] [address] [id number] [place] [address]- 3251 Apr, [facility] [place] [facility] [address] [id number] [place] [address]- 2673 Apr, [facility] [place] [facility] [address] [id number] [place] [address]- 8213 Apr, [facility] [place] [facility] [address] [id number] [place] [address]- 9272 Apr, [facility] [place] [facility] [address] [id number] [place] [address]- 0904 Apr, [facility] [place] [facility] [address] [id number] [place] [address]- 4076 Apr, [facility] [place] [facility] [address] [id number] [place] [address]- 3245 Apr, [facility] [place] [facility] [address] [id number] [place] [address]- 2111 Feb, [facility] [place] [facility] [address] [id number] [place] [address]- 0578 Feb, [facility] [place] [facility] [address] [id number] [place] [address]- 1007 Jan, [facility] [place] [facility] [address] [id number] [place] [address]- 1236 Jan, [facility] [place] [facility] [address] [id number] [place] [address] 2544 Jan, [facility] [place] [facility] [address] [id number] [place] [address]- 0959 Jan, [facility] [place] [facility] [address] [id number] [place] [address]- 6458 Jan, [facility] [place] [facility] [address] [id number] [place] [address]- 8646 Jan, [facility] [place] [facility] [address] [id number] [place] [address]- 3896 Dec, [facility] [place] [facility] [address] [id number] [place] [address]- 4876 November, [facility] [place] [facility] [address] [id number] [place] [address]- 5095 November, [facility] [place] [facility] [address] [id number] [place] [address]- 4696 November, [facility] [place] [facility] [address] [id number] [place] [address]- 5516 Sep, [facility] [place] [facility] [address] [id number] [place] [address]- 3032 Sep, [facility] [place] [facility] [address] [id number] [place] [address]- 2510 Sep, [facility] [place] [facility] [address] [id number] [place] [address]- 3288 Sep, [facility] [place] [facility] [address] [id number] [place] [address]- 2096 Sep, [facility] [place] [facility] [address] [id number] [place] [address]- 2546 Sep, [facility] [place] [facility] [address] [id number] [place] [address]- 0906 Aug, [facility] [place] [facility] [address] [id number] [place] [address]- 3176 Aug, [facility] [place] [facility] [address] [id number] [place] [address]- 2546 Aug, [facility] [place] [facility] [address] [id number] [place] [address]- 0031 11 Jul, 2011 [facility] [address] [id number] [place] [address]- 6201 Jul, [facility] [address] [id number] [place] [address]- 3506 10 Jul, 2011 [facility] [address] [id number] [place] [address]- 1090 Jul, [facility] [address] [id number] [place] [address]- 2682 Jun, [facility] [address] [id number] [place] [address]- 7494 Jun, [facility] [address] [id number] [place] [address]- 3138 Jun, [facility] [address] [id number] [place] [address]- 6375 Jun, [facility] [address] [id number] [place] [address]- 3934 Jun, [facility] [address] [id number] [place] [address]- 3083 Jun, [facility] [address] [id number] [place] [address]- 0586 May, [facility] [address] [id number] [place] [address]- 2272 May, [facility] [address] [id number] [place] [address]- 7273 May, [facility] [address] [id number] [place] [address]- 3100 Apr, [facility] [place] [facility] [address] [id number] [place] [address]- 8992 Jan, [facility] [address] [id number] [place] [address]- 3925 Jun, [facility] [address] [id number] [place] [address]- 2741 20 Jun, 2010 [facility] [place] [facility] [address] [id number] [place] [address]- 1066 15 Jun, 2010 [facility] [place] [facility] [address] [id number] [place] [address] 2546 15 Jun, 2010 [facility] [place] [facility] [address] [id number] [place] [address] 2546 15 Jun, 2010 [facility] [address] [id number] [place] [address]- 9776 13 Jun, 2010 [facility] [place] [facility] [address] [id number] [place] [address]- 9796 13 Jun, 2010 [facility] [address] [id number] [place] [address]- 2166 Apr, [facility] [address] [id number] [place] [address]- 7800 17 Feb, 2010 [facility] [place] [facility] [address] [id number] [place] [address]- 5425 15 Aug, 2009 [facility] [place] [facility] [address] [id number] [place] [address]- 3600 Jul, [facility] [place] [facility] [address] [id number] [place] [address] 2540 Jul, [facility] [place] [facility] [address] [id number] [place] [address]- 2543 29 Jun, 2009 [facility] [place] [facility] [address] [id number] [place] [address] 2546 Jun, [facility] [place] [facility] [address] [id number] [place] [address]- 2546 28 Jun, 2009 [facility] [place] [facility] [address] [id number] [place] 9386 22 Jun, 2009 [facility] [place] [facility] [id number] [address]- 4701 Jun, [facility] [id number], [place] [address]- 0420 Jun, [facility] [id number], [place] [address]- 3647 Jun, [facility] [id number], [place] [address]- 6049 May, [facility] [id number] [place] [address] 015337- 1330 May, [facility] [id number] [place] [address] 039228- 7839 May, [facility] [id number] [place] [address] 33077- 0432 May, [facility] [id number] [place] [address] 17535- 8623 May, [facility] [id number], [place] [address]- 3733 May, [facility] [id number] [place] [address] 158688- 9721 May, [facility] [address], [place] [address]- 4436 Apr, [facility] [address], [place] [address]- 7710 Apr, [facility] [address], [place] [address]- 4996 Jan, [facility] [address] 3904 Oct, IMMUNIZATIONS No Known Immunizations SOCIAL HISTORY Never Assessed REASON FOR VISIT Controlled Med Refill 03/04/18 PLAN OF CARE VITAL SIGNS MEDICATIONS Medication [...]
--- OUTSIDE RECORDS SUMMARY | 2018-11-09 13:00 | XMS REPORT ---
Author Author PRABHA HILL [facility] Address [address] [place] [address] Care Team Providers Care Tractor Driver Teamster Name Role Phone PRABHA HILL Unavailable PROBLEMS Type Condition ICD9-CM Code INR58-DZ Code Onset Dates Condition Status SNOMED Code Problem Hypoglycemia E16.2 Active 017927197 Problem Hallucinations R44.3 Active 5635285 Problem Unsteady gait R26.81 Active 36027337 Problem 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 Active 317309007458763 Problem Dysuria R30.0 Active 66910057 Problem Anxiety F41.9 Active 27054997 Problem Dementia in other diseases classified elsewhere without behavioral disturbance F02.80 Active 988611736 Problem Other frontotemporal dementia G31.09 Active 400853384 Problem Parkinsons disease G20 Active 25152666 Problem Episodic cluster headache, not intractable G44.019 Active 762352052 Problem Neurogenic orthostatic hypotension G90.3 Active 726965653 Problem Mixed stress and urge urinary incontinence N39.46 Active 601580671 Problem 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 Active 941054207 Problem Essential hypertension I10 Active 23082984 Problem Type 2 diabetes mellitus with unspecified complications E11.8 Active 62557943 Problem PVD (peripheral vascular disease) I73.9 Active 171772760 Problem Dysthymia F34.1 Active 02783797 Problem Polydipsia R63.1 Active 73579917 Problem Coronary artery disease involving [place] coronary artery of win[place] heart without angina pectoris I25.10 Active 4249771395109 Problem Hypothyroidism (acquired) E03.9 Active 805324201 Problem Hyperlipemia, mixed E78.2 Active 727961275 Problem Dementia with Lewy bodies G31.83 Active 361261987 Problem Neuropathy G62.9 Active 563519526 Problem Hypernatremia E87.0 Active 01819373 ALLERGIES No Information ENCOUNTERS Encounter Location Date Diagnosis [facility] [id number] [place] [address] 88693- 2606 Mar, [facility] [id number] [place] [address] 53092- 8856 Feb, Left shoulder pain M25.512 [facility] [id number] [place] [address] 60404- 2239 Feb, 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 [facility] [address] 34739- 4742 Jan, Left shoulder pain M25.512 [facility] [id number] [place] [address] 47590- 9829 Dec, Parkinsons disease G20 [facility] [id number] [place] [address] 02196- 8627 Dec, Left shoulder pain M25.512 [facility] [id number] [place] [address] 33927- 6067 Dec, Type 2 diabetes mellitus with unspecified complications E11.8 ; Anxiety F41.9 ; Therapeutic drug monitoring Z51.81 and Analgesic use Z79.899 [facility] [id number] [place] [address] 07344- 4604 November, [facility] [id number] [place] [address] 06451- 6202 November, [facility] [id number] [place] [address] 90367- 6751 November, Left shoulder pain M25.512 [facility] [id number] [place] [address] 46938- 9994 Oct, [facility] [id number] [place] [address] 24213 -4690 Oct, [facility] [id number] [place] [address] 65033- 4621 Oct, Parkinsons disease G20 [facility] [id number] [place] [address] 04298 -4432 18 Oct, 2017 Acute cystitis without hematuria N30.00 and Viral upper respiratory tract infection J06.9 [facility] [id number] [place] [address] 66644- 4869 Oct, [facility] [id number] [place] [address] 01895- 5645 Oct, Type 2 diabetes mellitus with unspecified complications E11.8 [facility] [id number] [place] [address] 19878- 8004 Oct, Left shoulder pain M25.512 [facility] [id number] [place] [address] 85655- 3419 Oct, Type 2 diabetes mellitus with unspecified complications E11.8 ; Dysuria R30.0 and Neurogenic orthostatic hypotension G90.3 [facility] [address] 00475- 8763 Sep, Left shoulder pain M25.512 [facility] [id number] [place] [address] 95515- 7145 Sep, Medicare annual wellness visit, initial Z00.00 ; Parkinsons disease G20 ; Type 2 diabetes mellitus with unspecified complications E11.8 ; Essential hypertension I10 ; Coronary artery disease involving win[place] coronary artery of win[place] heart without angina pectoris I25.10 ; Hypothyroidism (acquired ) E03.9 ; PVD (peripheral vascular disease) I73.9 ; Dysthymia F34.1 ; Hyperlipemia, mixed E78.2 ; Neuropathy G62.9 ; Encounter for immunization Z23 ; Encounter for other screening for malignant neoplasm of breast Z12.39 and Mixed stress and urge urinary incontinence N39.46 [facility] [id number] [place] [address] 23308- 2088 Aug, Parkinsons disease G20 [facility] [id number] [place] [address] 70664- 3655 Aug, Type 2 diabetes mellitus with unspecified complications E11.8 ; Left shoulder pain M25.512 and Hypotensive episode I95.9 [facility] [id number] [place] [address] 96979- 6040 09 Aug, 2017 Coronary artery disease involving [place] coronary artery of win[place] heart without angina pectoris I25.10 [facility] [id number] [place] [address] 75812- 9802 07 Aug, 2017 Type 2 diabetes mellitus with unspecified complications E11.8 [facility] [id number] [place] [address] 47191- 7823 Jul, Callus of foot L84 [facility] [address] 23021- 8003 Jul, [facility] [id number] [place] [address] 70794- 6713 Jul, Callus of foot L84 ; Episodic cluster headache, not intractable G44.019 ; Type 2 diabetes mellitus with unspecified complications E11.8 and Parkinsons disease G20 [facility] [id number] [place] [address] 94565- 3735 Jul, [facility] [id number] [place] [address] 01481- 2114 Jul, [facility] [id number] [place] [address] 53933- 6234 Jun, Type 2 diabetes mellitus with unspecified complications E11.8 ; Unsteady gait R26.81 ; Forgetfulness R68.89 and Hallucinations R44.3 [facility] [id number] [place] [address] 77137- 6235 Jun, [facility] [id number] [place] [address] 62231- 1847 Jun, Left shoulder pain M25.512 [facility] [id number] [place] [address] 43552- 9838 May, Hypernatremia E87.0 and Polydipsia R63.1 [id number] [place] [address] 91993- 2004 08 May, 2017 Hypernatremia E87.0 and Polydipsia R63.1 [facility] [id number] [place] [address] 51196- 6918 May, Hypoglycemia E16.2 ; Dysuria R30.0 ; Unsteadiness on feet R26.81 ; Forgetfulness R68.89 ; Type 2 diabetes mellitus with unspecified complications E11.8 and Yeast infection involving the vagina and surrounding area B37.3 [facility] [id number] [place] [address] 76169- 0188 May, Acute cystitis without hematuria N30.00 [facility] [id number] [place] [address] 38160 -7204 Apr, Dysuria R30.0 and Acute cystitis without hematuria N30.00 [facility] [address] 13211- 7589 Apr, Hypernatremia E87.0 and Polydipsia R63.1 [facility] [id number] [place] [address] 81192- 8908 Apr, Vertigo R42 and Type 2 diabetes mellitus with unspecified complications E11.8 [facility] [id number] [place] [address] 48931- 5270 Mar, [facility] [id number] [place] [address] 60631- 7464 19 Mar, 2017 Left shoulder pain M25.512 [facility] [id number] [place] [address] 13445- 0954 13 Mar, 2017 Vertigo R42 [facility] [id number] [place] [address] 11355- 7701 Mar, Polydipsia R63.1 [facility] [id number] [place] [address] 00399- 8080 Mar, Polydipsia R63.1 [facility] [address] 77090- 4340 11 Mar, 2017 Vertigo R42 [facility] [facility] [address] 24963- 7418 07 Mar, 2017 Type 2 diabetes mellitus with unspecified complications E11.8 ; Vertigo R42 ; Polydipsia R63.1 ; Polyuria R35.8 ; Hypothyroidism ( acquired) E03.9 ; Abnormal urinalysis R82.90 and Dysthymia F34.1 [place] [address] 35173- 1080 05 Mar, 2017 Coronary artery disease of winneb[place] artery with stable angina pectoris, unspecified whether winnebago or transplanted heart I25.118 ; Systolic CHF, chronic I50.22 ; Hyperlipemia, mixed E78.2 and Essential hypertension I10 [facility] [address] [id number] Feb, Dental caries K02.9 [place] [address] 71455- 8681 Feb, Type 2 diabetes mellitus with diabetic neuropathy, unspecified E11.40 [facility] [facility] [address] 68542- 3361 23 Dec, 2016 Left shoulder pain M25.512 [facility] [address] 20081- 0235 16 Dec, 2016 [place] [address] 94264- 0483 Dec, Type 2 diabetes mellitus with unspecified complications E11.8 [facility] [address] [id number] Dec, Dental examination Z01.20 [place] [address] 18841- 3295 08 Dec, 2016 Type 2 diabetes mellitus with diabetic neuropathy, unspecified E11.40 [place] [address] 87022- 9891 Dec, [facility] [id number] [place] [address] 35951- 2370 Dec, Type 2 diabetes mellitus with diabetic neuropathy, unspecified E11.40 [facility] [id number] [place] [address] 876695- 5666 November, Left shoulder pain M25.512 [facility] [id number] [place] [address] 69450- 9110 November, [facility] [id number] [place] [address] 511327- 3253 November, Type 2 diabetes mellitus with unspecified complications E11.8 and Dysuria R30.0 [facility] [facility] [id number] [place] [address] 87088- 7101 Oct, Left shoulder pain M25.512 [facility] [id number] [place] [address] 09877- 6198 Sep, Left shoulder pain M25.512 [facility] [id number] [place] [address] 69666- 4872 Sep, Pre-op testing Z01.818 [facility] [id number] [place] [address] 90810- 2885 Sep, Pre-op testing Z01.818 [facility] [id number] [place] [address] 05179- 1513 Sep, Pre-op testing Z01.818 [facility] [id number] [place] [address] 69394 2541 Sep, Pre-op testing Z01.818 and Mouth pain K13.79 [facility] [facility] [id number] [place] [address] 537935- 4680 Sep, Left shoulder pain M25.512 [facility] [id number] [place] [address] 70885- 5180 Aug, Other eczema L30.8 [facility] [id number] [place] [address] 33569- 3122 06 Aug, 2016 PVD (peripheral vascular disease) I73.9 ; Type 2 diabetes mellitus with unspecified complications E11.8 ; Acute cystitis with hematuria N30.01 ; Other eczema L30.8 ; Dysuria R30.0 and Left shoulder pain M25.512 [facility] [address] 94039 -5775 Jul, Otalgia of right ear H92.01 and Blood in ear canal, right H92.21 [place] [address] 85682- 2556 Jul, Arthralgia, unspecified joint M25.50 ; PVD (peripheral vascular disease) I73.9 and Neuropathy G62.9 [place] [address] 87454- 8730 Jul, [facility] [facility] [address] 39585- 5858 Jun, Medicare annual wellness visit, initial Z00.00 ; Cervicalgia M54.2 ; Radiculopathy of cervical region M54.12 ; Encounter for immunization Z23 ; Type 2 diabetes mellitus with unspecified complications E11.8 and Essential hypertension I10 [facility] [id number] [place] [address] 06440- 4056 Jun, [facility] [address] 02297- 7389 14 May, 2016 Hypothyroidism (acquired) E03.9 [place] [address] 83616- 5763 10 May, 2016 Dysuria R30.0 ; Essential hypertension I10 ; Hypothyroidism (acquired) E03.9 and PVD (peripheral vascular disease) I73.9 [facility] [id number] [place] [address] 88365 -7902 03 May, 2016 Burning with urination R30.0 and Acute cystitis with hematuria N30.01 [place] [address] [address]- 0208 May, Dental examination Z01.20 [facility] [id number] [place] [address] 04909- 7800 May, Hypothyroidism (acquired) E03.9 [facility] [id number] [place] [address] 98687 2548 Feb, [facility] [id number] [place] [address] 36401- 2544 Feb, 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 ; PVD ( peripheral vascular disease) I73.9 ; Type 2 diabetes mellitus with unspecified complications E11.8 and Essential hypertension I10 [facility] [id number] [place] [address] 30039- 1809 Jan, [facility] [id number] [place] [address] 17753- 7428 Jan, Hypothyroidism (acquired) E03.9 [facility] [id number] [place] [address] 78784- 1685 Jan, [facility] [id number] [place] [address] 38800- 3410 Jan, [facility] [address] [address]- 2545 Jan, Type 2 diabetes mellitus with unspecified complications E11.8 ; 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 and Essential ( primary) hypertension I10 [address] [address] [place] [address] 36148 2540 Jan, Type 2 diabetes mellitus with unspecified complications E11.8 ; 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 ; Essential hypertension I10 and PVD (peripheral vascular disease) I73.9 [place] [address] [address]- 2543 Jan, [facility] [id number] [place] [address] 41168- 6611 Jan, [facility] [id number] [place] [address] 38416- 7550 Jan, [facility] [id number] [place] [address] 70450- 7822 Jan, Weakness R53.1 ; Fatigue, unspecified type R53.83 ; PVD ( peripheral vascular disease) I73.9 ; Acute osteomyelitis of other site M86.18 ; Type 2 diabetes mellitus with diabetic neuropathy, unspecified E11.40 and FPC 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.4 [place] [id number] [place] [address] 91365- 2351 Dec, [place] [id number] [place] [address] 26255- 7944 Dec, Type 2 diabetes mellitus with unspecified complications E11.8 [place] [id number] [place] [address] 38453- 9202 Dec, [facility] [id number] [place] [address] 15676- 2014 Dec, Pressure ulcer, unspecified pressure ulcer stage L89.90 and Type 2 diabetes mellitus with unspecified complications E11.8 [facility] [address] [place] [address] 29314 -8546 Dec, Toe infection L08.9 [place] [id number] [place] [address] 08230- 7081 November, Dental caries K02.9 [place] [id number] [place] [address] 78819- 0124 November, [place] [id number] [place] [address] 84339- 4358 November, Dental examination Z01.20 [place] [id number] [place] [address] 39779- 5708 Sep, Lipoma of torso D17.1 and Thoracic neuritis M54.14 [facility] [id number] [place] [address] 53764- 8182 Sep, [facility] [id number] [place] [address] 59200- 0683 Aug, [facility] [id number] [place] [address] 61521 -2766 Jul, Dysuria R30.0 and UTI (urinary tract infection) N39.0 [facility] [id number] [place] [address] 02331- 3504 Jun, Left shoulder pain M25.512 [place] [address] 72894- 2011 May, Shoulder pain, left M25.512 [place] [id number] [place] [address] 77197- 9675 May, [facility] [id number] [place] [address] 49700- 0045 May, [facility] [id number] [place] [address] 87224- 0764 May, Left shoulder pain M25.512 [facility] [id number] [place] [address] 48058- 7582 May, [facility] [id number] [place] [address] 29060- 0599 Apr, Encounter for immunization Z23 [facility] [id number] [place] [address] 83921- 1941 Apr, Urinary tract infection, site not specified N39.0 ; Hypotension, unspecified I95.9 ; Type 2 diabetes mellitus with unspecified complications E11.8 and Generalized edema R60.1 [facility] [id number] [place] [address] 00725- 0193 Apr, [facility] [address] 25632- 3427 Mar, Diabetes with other specified manifestations, type II or unspecified type, not stated as uncontrolled 250.80 [facility] [id number] [place] [address] 98775- 1993 Feb, Gout 274.9 and Diabetes 250.00 [facility] [id number] [place] [address] 52047- 6413 Jan, [facility] [id number] [place] [address] 34910- 0640 November, CAD (coronary artery disease) 414.00 and CHF (congestive heart failure) 428.0 [facility] [id number] [place] [address] 15691- 6930 Oct, [facility] [id number] [place] [address] 372920- 0367 Oct, [facility] [id number] [place] [address] 11524- 2976 Oct, [facility] [id number] [place] [address] 919619- 5263 Sep, [facility] [id number] [place] [address] 06432- 9065 Sep, [facility] [id number] [place] [address] 22813758- 4678 Sep, [facility] [id number] [place] [address] [id number]- 4156 Sep, [facility] [address] [place] [address] 962404- 3775 Aug, [facility] [id number] [place] [address] 897190- 6918 Aug, [facility] [id number] [place] [address] 29461- 2656 Aug, [facility] [id number] [place] [address] 08007- 0698 Aug, [facility] [place] [facility] [address] [id number] [place] [address]- 5731 Aug, [facility] [place] [facility] [address] [id number] [place] [address]- 6341 Aug, [facility] [place] [facility] [address] [id number] [place] [address]- 7961 Aug, [facility] [place] [facility] [address] [id number] [place] [address]- 1315 Aug, [facility] [place] [facility] [address] [id number] [place] [address]- 8293 Jul, [facility] [place] [facility] [address] [id number] [place] [address]- 9328 Jul, [facility] [place] [facility] [address] [id number] [place] [address]- 3836 Jul, [facility] [place] [facility] [address] [id number] [place] [address]- 9215 Jul, [facility] [place] [facility] [address] [id number] [place] [address]- 6071 Jul, [facility] [place] [facility] [address] [facility] [id number] [place] [address]- 5057 Jul, [facility] [place] [facility] [address] [id number] [place] [address]- 9946 Jul, [facility] [place] [facility] [address] [id number] [address]- 0031 Jul, [facility] [place] [facility] [address] [id number] [address]- 1360 Jul, [facility] [place] [facility] [address] [id number] [address]- 0486 Jul, [facility] [place] [facility] [address] [id number] [address]- 3809 Jun, [facility] [place] [facility] [address] [id number] [place] [address]- 1296 Jun, [facility] [place] [facility] [address] [id number] [place] [address]- 7756 Jun, [facility] [place] [facility] [address] [id number] [place] 6038 Jun, [facility] [place] [facility] [address] [id number] [place] [address] Jun, [facility] [place] [facility] [address] [id number] [place] [address] Jun, [facility] [place] [facility] [address] [id number] [place] [address] Jun, [facility] [place] [facility] [address] [id number] [place] [address] Jun, [facility] [place] [facility] [address] [id number] [place] [address] Jun, [facility] [place] [facility] [address] [id number] [place] [address] Jun, [facility] [place] [facility] [address] [id number] [place] [address] May, [facility] [place] [facility] [address] [id number] [place] [address] 14 May, 2014 [facility] [place] [facility] [address] [id number] [place] [address] 18 Mar, 2014 [facility] [place] [facility] [address] [id number] [place] [address] 18 Mar, 2014 [facility] [place] [facility] [address] [id number] [place] [address] 10 Mar, 2014 [facility] [place] [facility] [address] [id number] [place] [address] 10 Mar, 2014 [facility] [place] [facility] [address] [id number] [place] [address] Feb, [facility] [place] [facility] [address] [id number] [place] [address] Feb, [facility] [place] [facility] [address] [id number] [place] [address] Feb, [facility] [place] [facility] [address] [id number] [place] [address] Jan, [facility] [place] [facility] [address] [id number] [place] [address] Jan, [facility] [place] [facility] [address] [id number] [place] [address] Jan, [facility] [place] [facility] [address] [id number] [place] [address] Jan, [facility] [place] [facility] [address] [id number] [place] [address] Jan, [facility] [place] [facility] [address] [id number] [place] [address] Jan, [facility] [place] [facility] [address] [id number] [place] [address] Jan, [facility] [place] [facility] [address] [id number] [place] [address] Jan, [facility] [place] [facility] [address] [id number] [place] [address] Jan, [facility] [place] [facility] [address] [id number] [place] [address] Jan, [facility] [place] [facility] [address] [id number] [place] [address] Dec, [facility] [place] [facility] [address] [id number] [place] [address] Dec, [facility] [place] [facility] [address] [id number] [place] [address]557 November, [facility] [place] [facility] [address] [id number] [place] [address] 6[address] November, [facility] [place] [facility] [address] [id number] [place] [address] 0870 November, [facility] [place] [facility] [address] [id number] [place] [address]126 November, [facility] [place] [facility] [address] [id number] [place] [address] November, [facility] [place] [facility] [address] [id number] [place] [address] November, [facility] [place] [facility] [address] [id number] [place] [address] 3051 November, [facility] [place] [facility] [address] [id number] [place] [address] 9208 Oct, [facility] [place] [facility] [address] [id number] [place] [address] 3556 Oct, [facility] [place] [facility] [address] [id number] [place] [address] 5[address] Sep, [facility] [place] [facility] [address] [id number] [place] [address]- 5[address] Sep, [facility] [place] [facility] [address] [id number] [place] [address]70 Sep, [facility] [place] [facility] [address] [id number] [place] [address]- 6251 Sep, [facility] [place] [facility] [address] [id number] [place] [address]- 6376 Sep, [facility] [place] [facility] [address] [id number] [place] [address]- 9339 Sep, [facility] [place] [facility] [address] [id number] [place] [address]- 3914 Sep, [facility] [place] [facility] [address] [id number] [place] [address]- 2353 Sep, [facility] [place] [facility] [address] [id number] [place] [address]- 5827 Sep, [facility] [place] [facility] [address] [id number] [place] [address] 6010 Sep, [facility] [place] [facility] [address] [id number] [place] [address]- 0479 Aug, [facility] [place] [facility] [address] [id number] [place] [address]- 0331 Aug, [facility] [place] [facility] [address] [id number] [place] [address] 9[address] Jul, [facility] [place] [facility] [address] [id number] [place] [address]- 2023 Jul, [facility] [place] [facility] [address] [id number] [place] [address]- 1718 Jul, [facility] [place] [facility] [address] [id number] [place] [address]- 3351 Jul, [facility] [place] [facility] [address] [id number] [place] [address]- 9628 Jul, [facility] [place] [facility] [address] [id number] [place] [address]- 4366 Jul, [facility] [place] [facility] [address] [id number] [address]- [address] Jun, [facility] [place] [facility] [address] [id number], [place] [address]- 1585 Jun, [facility] [place] [facility] [address] [id number] [place] [address]- 5393 Jun, [facility] [place] [facility] [address] [id number] [place] [address]- 0390 Jun, [facility] [place] [facility] [address] [id number], [place] [address] May, [facility] [place] [facility] [address] [id number], [place] [address] 14 May, 2013 [facility] [place] [facility] [address] [id number] [place] [address]- 6379 May, [facility] [place] [facility] [address] [id number] [place] [address]- 8120 11 May, 2013 [facility] [place] [facility] [address] [id number] [place] [address]- 6769 May, [facility] [place] [facility] [address] [id number] [place] [address]- 4074 31 Apr, 2013 [facility] [place] [facility] [address] [id number] [place] [address]- 3460 31 Apr, 2013 [facility] [place] [facility] [address] [id number] [place] [address]- 5188 Apr, [facility] [place] [facility] [address] [id number] [place] [address]- 6407 Apr, [facility] [place] [facility] [address] [id number] [place] [address]- 0358 Apr, [facility] [place] [facility] [address] [id number] [place] [address]- 7691 Apr, [facility] [place] [facility] [address] [id number] [place] [address]- 5968 Apr, [facility] [place] [facility] [address] [id number], [place] [address]- [address] Apr, [facility] [place] [facility] [address] [id number][place] [address]- 7[address] Apr, [facility] [place] [facility] [address] [id number] [place] [address]- 4555 Apr, [facility] [place] [facility] [address] [id number] [place] [address]- 7038 Apr, [facility] [place] [facility] [address] [id number] [place] [address]- 6782 Apr, [facility] [place] [facility] [address] [id number] [place] [address]- 1498 Mar, [facility] [place] [facility] [address] [id number] [place] [address]- 5938 Mar, [facility] [place] [facility] [address] [id number] [place] [address]- 2546 Feb, [facility] [place] [facility] [address] [id number] [place] [address]- 3812 Jan, [facility] [place] [facility] [address] [id number] [place] [address]- 1416 Jan, [facility] [place] [facility] [address] [id number] [place] [address]- 8677 Jan, [facility] [place] [facility] [address] [id number] [place] [address]- 6249 Jan, [facility] [place] [facility] [address] [id number] [place] [address]- 9339 Dec, [facility] [place] [facility] [address] [id number] [place] [address]- 8528 Dec, [facility] [place] [facility] [address] [id number] [place] [address]- 6576 Dec, [facility] [place] [facility] [address] [id number] [place] [address]- 1070 Dec, [facility] [place] [facility] [address] [id number] [place] [address]- 5805 Dec, [facility] [place] [facility] [address] [id number] [place] [address]- 9600 Dec, [facility] [place] [facility] [address] [id number] [place] [address]- 9567 Dec, [facility] [place] [facility] [address] [id number] [place] [address]- 9886 November, [facility] [place] [facility] [address] [id number] [place] [address]- 0061 November, [facility] [address] [id number] [place] [address] 1300 November, [facility] [place] [facility] [address] [id number] [place] [address]- 8434 Oct, [facility] [place] [facility] [address] [id number] [place] [address]- 2949 Oct, [facility] [place] [facility] [address] [id number] [place] [address]- 8314 Oct, [facility] [place] [facility] [address] [id number] [place] [address]- 4292 Oct, [facility] [place] [facility] [address] [id number] [place] [address]- 9396 Oct, [facility] [place] [facility] [address] [id number] [place] [address]- 0017 Sep, [facility] [place] [facility] [address] [id number] [place] [address]- 9511 Sep, [facility] [place] [facility] [address] [id number] [place] [address]- 5691 Sep, [facility] [place] [facility] [address] [id number] [place] [address]- 4240 Sep, [facility] [place] [facility] [address] [id number] [place] [address]- 2437 Aug, [facility] [place] [facility] [address] [id number], [place] [address] 0868 Aug, [facility] [place] [facility] [address] [id number] [place] [address]- 0248 Aug, [facility] [place] [facility] [address] [id number] [place] [address]- 4065 Aug, [facility] [place] [facility] [address] [id number] [place] [address]- 7955 Jul, [facility] [place] [facility] [address] [id number] [place] [address]- 5875 Jul, [facility] [address] [id number] [place] [address]- 9540 Jun, [facility] [place] [facility] [address] [id number] [place] [address]- 7586 Jun, [facility] [address] [id number] [place] [address]- 6669 Jun, [facility] [place] [facility] [address] [id number] [place] [address]- 2268 Jun, [facility] [id number] [place] [address], [place] [address]- [address]404 May, [facility] [place] [facility] [address] [id number] [place] [address]- 4599 May, [facility] [place] [facility] [address] [facility] [id number] [place] [address]- 5136 May, [facility] [place] [facility] [address] [facility] [id number] [place] [address]- 7694 May, [facility] [place] [facility] [address] [facility] [id number] [place] [address]- 5106 Apr, [facility] [place] [facility] [address] [facility] [id number] [place] [address]- 4477 Apr, [facility] [place] [facility] [address] [facility] [id number] [place] [address]- 2221 31 Apr, 2012 [facility] [place] [facility] [address] [facility] [id number] [place] [address]- 0656 31 Apr, 2012 [facility] [place] [facility] [address] [facility] [id number] [place] [address]- 1913 30 Apr, 2012 [facility] [place] [facility] [address] [facility] [id number] [place] [address]- 7476 30 Apr, 2012 [facility] [place] [facility] [address] [facility] [id number] [place] [address]- 0965 Apr, [facility] [place] [facility] [address] [id number] [place] [address]- 7475 Apr, [facility] [place] [facility] [address] [id number] [place] [address]- 7760 Apr, [facility] [place] [facility] [address] [id number] [place] [address]- 9127 Apr, [facility] [place] [facility] [address] [id number] [place] [address]- 5870 Feb, [facility] [place] [facility] [address] [id number] [place] [address]- 4628 Feb, [facility] [place] [facility] [address] [id number] [place] [address]- 8735 Jan, [facility] [place] [facility] [address] [id number] [place] [address]- 2550 Jan, [facility] [place] [facility] [address] [id number] [place] [address]- 8981 Jan, [facility] [place] [facility] [address] [id number] [place] [address]- 7771 Jan, [facility] [place] [facility] [address] [id number] [place] [address]- 0739 Jan, [facility] [place] [facility] [address] [id number] [place] [address]- 5135 Jan, [facility] [place] [facility] [address] [id number], [place] [address]- 8505 Dec, [facility] [place] [facility] [address] [id number] [place] [address]- 8536 November, [facility] [place] [facility] [address] [id number] [place] [address]- 0856 November, [facility] [place] [facility] [address] [id number] [place] [address]- 3953 November, [facility] [place] [facility] [address] [id number] [place] [address]- 2346 Sep, [facility] [address] [id number] [place] [address]- 5522 Sep, [facility] [place] [facility] [address] [id number] [place] [address]- 9846 Sep, [facility] [place] [facility] [address] [id number] [place] [address]- 4866 Sep, [facility] [place] [facility] [address] [id number] [place] [address]- 5545 Sep, [facility] [place] [facility] [address] [id number] [place] [address]- 4147 Sep, [facility] [place] [facility] [address] [id number] [place] [address]- 3616 13 Aug, 2011 [facility] [place] [facility] [address] [id number] [place] [address]- 3311 Aug, [facility] [place] [facility] [address] [id number] [place] [address]- 8984 Aug, [facility] [place] [facility] [address] [id number] [place] [address]- 9310 Jul, [facility] [place] [facility] [address] [facility] [id number] [place] [address]- 5851 Jul, [facility] [place] [facility] [address] [id number] [place] [address]- 4563 Jul, [facility] [place] [facility] [address] [id number] [place] [address] 2546 Jul, [facility] [place] [facility] [address] [id number] [place] [address]- 5045 Jun, [facility] [place] [facility] [address] [id number] [place] [address] 2546 Jun, [facility] [place] [facility] [address] [facility] [id number] [place] [address]- 1256 Jun, [facility] [place] [facility] [address] [id number] [place] [address]- 2297 06 Jun, 2011 [facility] [place] [facility] [address] [id number] [place] [address]- 3326 Jun, [facility] [place] [facility] [address] [id number] [place] [address] 2546 Jun, [facility] [place] [facility] [address] [id number] [place] [address]- 2336 May, [facility] [place] [facility] [address] [id number] [place] [address] 2545 May, [facility] [place] [facility] [address] [id number] [place] [address]- 6356 May, [facility] [place] [facility] [address] [id number] [place] [address]- 7981 Apr, [facility] [place] [facility] [address] [id number] [place] [address]- 8103 Jan, [facility] [place] [facility] [address] [id number] [place] [address]- 9453 Jun, [facility] [place] [facility] [address] [id number] [place] [address]- 9822 20 Jun, 2010 [facility] [place] [facility] [address] [id number] [place] [address]- 4590 15 Jun, 2010 [facility] [place] [facility] [address] [id number] [place] [address]- 2546 15 Jun, 2010 [facility] [place] [facility] [address] [id number] [place] [address] 254 15 Jun, 2010 [facility] [place] [facility] [address] [id number] [place] [address] 2546 13 Jun, 2010 [facility] [place] [facility] [address] [id number] [place] [address] 2544 13 Jun, 2010 [facility] [place] [facility] [address] [id number] [place] [address]- 1673 Apr, [facility] [address] [id number] [place] [address]- 2265 Feb, [facility] [place] [facility] [address] [id number] [place] [address]- 4286 15 Aug, 2009 [facility] [place] [facility] [address] [facility] [id number] [place] [address] 2546 18 Jul, 2009 [facility] [place] [facility] [address] [id number], [place] [address] 2542 Jul, [facility] [address] [id number] [place] [address]- 1468 29 Jun, 2009 [facility] [place] [facility] [address] [id number] [place] [address]- 5887 Jun, [facility] [place] [facility] [address] [id number] [place] [address]- 9693 Jun, [facility] [place] [facility] [address] [id number], [place] [address]- 9890 22 Jun, 2009 [facility] [address] [id number], [place] [address]- 5031 16 Jun, 2009 [facility] [place] [facility] [address] [facility] [id number], [place] [address]- 6053 Jun, [facility] [place] [facility] [address] [facility] [id number], [place] [address]- 9264 Jun, [facility] [place] [facility] [address] [id number], [place] [address]- 5664 30 May, 2009 [facility] [place] [facility] [address] [id number] [place] [address] 2542 27 May, 2009 [facility] [place] [facility] [address] [facility] [id number], [place] [address]- 254 23 May, 2009 [facility] [place] [facility] [address] [facility] [id number], [place] [address]- 2549 18 May, 2009 [facility] [place] [facility] [address] [id number], [place] [address]- 2546 May, [facility] [address] [id number], [place] [address]- 2546 May, [facility] [address] [id number], [place] [address]- 2546 May, [facility] [address] [id number], [place] [address]- 2546 Apr, [facility] [address] [id number], [place] [address]- 2546 Apr, [facility] [id number], [place] [address]- 2546 Jan, [facility] [address] [id number], [place] [address]- 2546 Oct, IMMUNIZATIONS No Known Immunizations SOCIAL HISTORY Never Assessed REASON FOR VISIT Refill request PLAN OF CARE VITAL SIGNS MEDICATIONS Medication Instructions Dosage Frequency Start Date End Date Duration Status Donepezil HCl 10 MG Orally Once a day 1 tablet at bedtime 24h Jul, 30 days Active RESULTS No Results PROCEDURES [...]
--- OUTSIDE RECORDS SUMMARY | 2018-11-09 13:00 | XMS REPORT ---
Author Author PRABHA HLIL [facility] Address [address] [place] [address] Care Team Providers Care Oil Sprayer Name Role Phone PRABHA HILL Unavailable PROBLEMS Type Condition ICD9-CM Code FHL53-CD Code Onset Dates Condition Status SNOMED Code Problem Hypoglycemia E16.2 Active 415540911 Problem Hallucinations R44.3 Active 0117993 Problem Unsteady gait R26.81 Active 37324291 Problem 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 Active [id number] Problem Dysuria R30.0 Active 93928993 Problem Anxiety F41.9 Active 76331029 Problem Dementia in other diseases classified elsewhere without behavioral disturbance F02.80 Active 885739288 Problem Other frontotemporal dementia G31.09 Active 136149820 Problem Parkinsons disease G20 Active 80316685 Problem Episodic cluster headache, not intractable G44.019 Active 757046178 Problem Neurogenic orthostatic hypotension G90.3 Active 724097745 Problem Mixed stress and urge urinary incontinence N39.46 Active 219639626 Problem 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 Active 323101136 Problem Essential hypertension I10 Active 66858551 Problem Type 2 diabetes mellitus with unspecified complications E11.8 Active 07783203 Problem PVD (peripheral vascular disease) I73.9 Active 880596704 Problem Dysthymia F34.1 Active 52679201 Problem Polydipsia R63.1 Active 36472858 Problem Coronary artery 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.10 Active 3410468071900 Problem Hypothyroidism (acquired) E03.9 Active 607466392 Problem Hyperlipemia, mixed E78.2 Active 912192232 Problem Dementia with Lewy bodies G31.83 Active 940895368 Problem Neuropathy G62.9 Active 113622341 Problem Hypernatremia E87.0 Active 02245940 ALLERGIES No Information ENCOUNTERS Encounter Location Date Diagnosis [facility] [id number] [place] [address] 65683- 8494 Mar, [facility] [address] 71224- 5483 Mar, [facility] [id number] [place] [address] 78947- 6588 Mar, Cellulitis of left lower extremity L03.116 and Petechial rash R23.3 [facility] [id number] [place] [address] 08841- 1155 Feb, Left shoulder pain M25.512 [facility] [address] 13107- 5753 Feb, Left shoulder pain M25.512 [facility] [id number] [place] [address] 06608- 5683 Feb, 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 [facility] [address] 88506- 4970 Jan, Left shoulder pain M25.512 [facility] [id number] [place] [address] 15468- 2847 Dec, Parkinsons disease G20 [facility] [id number] [place] [address] 07433- 4965 Dec, Left shoulder pain M25.512 [facility] [id number] [place] [address] 91093- 9688 Dec, Type 2 diabetes mellitus with unspecified complications E11.8 ; Anxiety F41.9 ; Therapeutic drug monitoring Z51.81 and Analgesic use Z79.899 [facility] [facility] [address] 69114- 9735 November, [facility] [id number] [place] [address] 54006- 9803 November, [facility] [facility] [address] 83194- 0024 November, Left shoulder pain M25.512 [facility] [id number] [place] [address] 73895- 9774 Oct, [facility] [id number] [place] [address] 91827 -3853 Oct, [facility] [id number] [place] [address] 33209- 6780 Oct, Parkinsons disease G20 [facility] [id number] [place] [address] 48666 -9034 18 Oct, 2017 Acute cystitis without hematuria N30.00 and Viral upper respiratory tract infection J06.9 [place] [address] 14966- 1259 Oct, [facility] [address] 05581- 1189 Oct, Type 2 diabetes mellitus with unspecified complications E11.8 [facility] [id number] [place] [address] 75876- 1276 Oct, Left shoulder pain M25.512 [facility] [id number] [place] [address] 74801- 0957 16 Oct, 2017 Type 2 diabetes mellitus with unspecified complications E11.8 ; Dysuria R30.0 and Neurogenic orthostatic hypotension G90.3 [facility] [id number] [place] [address] 75786- 7899 Sep, Left shoulder pain M25.512 [facility] [id number] [place] [address] 36138- 1258 12 Sep, 2017 Medicare annual wellness visit, initial Z00.00 ; Parkinsons disease G20 ; Type 2 diabetes mellitus with unspecified complications E11.8 ; Essential hypertension I10 ; Coronary artery 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.10 ; Hypothyroidism (acquired ) E03.9 ; PVD (peripheral vascular disease) I73.9 ; Dysthymia F34.1 ; Hyperlipemia, mixed E78.2 ; Neuropathy G62.9 ; Encounter for immunization Z23 ; Encounter for other screening for malignant neoplasm of breast Z12.39 and Mixed stress and urge urinary incontinence N39.46 [facility] [address] 41920- 2866 Aug, Parkinsons disease G20 [facility] [facility] [address] 44706- 0791 Aug, Type 2 diabetes mellitus with unspecified complications E11.8 ; Left shoulder pain M25.512 and Hypotensive episode I95.9 [facility] [facility] [address] 80325- 7920 09 Aug, 2017 Coronary artery 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.10 [facility] [facility] [address] 48380- 6204 07 Aug, 2017 Type 2 diabetes mellitus with unspecified complications E11.8 [facility] [facility] [address] 20048- 0487 Jul, Callus of foot L84 [facility] [id number] [place] [address] 98599- 5007 Jul, [facility] [id number] [place] [address] 08810- 1843 Jul, Callus of foot L84 ; Episodic cluster headache, not intractable G44.019 ; Type 2 diabetes mellitus with unspecified complications E11.8 and Parkinsons disease G20 [facility] [id number] [place] [address] 01992- 5835 Jul, [facility] [facility] [address] 83810- 1387 Jul, [facility] [facility] [address] 83898- 6373 Jun, Type 2 diabetes mellitus with unspecified complications E11.8 ; Unsteady gait R26.81 ; Forgetfulness R68.89 and Hallucinations R44.3 [facility] [id number] [place] [address] 16284- 7651 Jun, [facility] [id number] [place] [address] 45239- 0663 Jun, Left shoulder pain M25.512 [facility] [id number] [place] [address] 73922- 4316 May, Hypernatremia E87.0 and Polydipsia R63.1 [facility] [facility] [id number] [place] [address] 13121- 1772 May, Hypernatremia E87.0 and Polydipsia R63.1 [facility] [facility] [id number] [place] [address] 85847- 3022 May, Hypoglycemia E16.2 ; Dysuria R30.0 ; Unsteadiness on feet R26.81 ; Forgetfulness R68.89 ; Type 2 diabetes mellitus with unspecified complications E11.8 and Yeast infection involving the vagina and surrounding area B37.3 [facility] [facility] [id number] [place] [address] 11899- 3700 May, Acute cystitis without hematuria N30.00 [facility] [id number] [place] [address] 30981 -8980 Apr, Dysuria R30.0 and Acute cystitis without hematuria N30.00 [facility] [facility] [id number] [place] [address] 80080- 3079 Apr, Hypernatremia E87.0 and Polydipsia R63.1 [facility] [facility] [id number] [place] [address] 66323- 7599 Apr, Vertigo R42 and Type 2 diabetes mellitus with unspecified complications E11.8 [facility] [facility] [id number] [place] [address] 08862- 6735 Mar, [facility] [id number] [place] [address] 36252- 3022 Mar, Left shoulder pain M25.512 [facility] [id number] [place] [address] 54083- 8212 13 Mar, 2017 Vertigo R42 [facility] [id number] [place] [address] 70529- 6342 12 Mar, 2017 Polydipsia R63.1 [facility] [facility] [id number] [place] [address] 03497- 7314 12 Mar, 2017 Polydipsia R63.1 [facility] [facility] [id number] [place] [address] 56890- 9063 11 Mar, 2017 Vertigo R42 [facility] [facility] [address] 00576- 1172 07 Mar, 2017 Type 2 diabetes mellitus with unspecified complications E11.8 ; Vertigo R42 ; Polydipsia R63.1 ; Polyuria R35.8 ; Hypothyroidism ( acquired) E03.9 ; Abnormal urinalysis R82.90 and Dysthymia F34.1 [facility] [id number] [place] [address] 96828- 9711 05 Mar, 2017 Coronary artery disease of venetie ira artery with stable angina pectoris, unspecified whether venetie ira or transplanted heart I25.118 ; Systolic CHF, chronic I50.22 ; Hyperlipemia, mixed E78.2 and Essential hypertension I10 [facility] [id number] [place] [address] [id number] 16 Feb, 2017 Dental caries K02.9 [facility] [id number] [place] [address] 25501- 2544 Feb, Type 2 diabetes mellitus with diabetic neuropathy, unspecified E11.40 [facility] [facility] [id number] [place] [address] 22365- 1314 23 Dec, 2016 Left shoulder pain M25.512 [facility] [facility] [id number] [place] [address] 47534- 0764 16 Dec, 2016 [facility] [facility] [address] 58316- 9748 Dec, Type 2 diabetes mellitus with unspecified complications E11.8 [facility] [address] [id number] Dec, Dental examination Z01.20 [facility] [id number] [place] [address] 85839- 4901 08 Dec, 2016 Type 2 diabetes mellitus with diabetic neuropathy, unspecified E11.40 [facility] [id number] [place] [address] 00349- 7871 Dec, [facility] [id number] [place] [address] 12811- 3155 Dec, Type 2 diabetes mellitus with diabetic neuropathy, unspecified E11.40 [facility] [id number] [place] [address] 706995- 7469 November, Left shoulder pain M25.512 [facility] [id number] [place] [address] 14445- 4309 November, [facility] [id number] [place] [address] 84715- 5314 November, Type 2 diabetes mellitus with unspecified complications E11.8 and Dysuria R30.0 [facility] [id number] [place] [address] 83415- 8454 Oct, Left shoulder pain M25.512 [place] [id number] [place] [address] 79945- 2550 Sep, Left shoulder pain M25.512 [facility] [id number] [place] [address] 95892- 1548 Sep, Pre-op testing Z01.818 [facility] [id number] [place] [address] 29482- 1357 Sep, Pre-op testing Z01.818 [facility] [id number] [place] [address] 83561- 8558 Sep, Pre-op testing Z01.818 [facility] [facility] [id number] [place] [address] 10812- 0929 08 Sep, 2016 Pre-op testing Z01.818 and Mouth pain K13.79 [facility] [facility] [id number] [place] [address] 65410- 0645 03 Sep, 2016 Left shoulder pain M25.512 [facility] [facility] [id number] [place] [address] 96861- 9718 08 Aug, 2016 Other eczema L30.8 [facility] [address] 53640- 1363 06 Aug, 2016 PVD (peripheral vascular disease) I73.9 ; Type 2 diabetes mellitus with unspecified complications E11.8 ; Acute cystitis with hematuria N30.01 ; Other eczema L30.8 ; Dysuria R30.0 and Left shoulder pain M25.512 [facility] [id number] [place] [address] 25241 -0073 Jul, Otalgia of right ear H92.01 and Blood in ear canal, right H92.21 [facility] [facility] [id number] [place] [address] 76931- 5846 Jul, Arthralgia, unspecified joint M25.50 ; PVD (peripheral vascular disease) I73.9 and Neuropathy G62.9 [facility] [facility] [id number] [place] [address] 14812- 1299 Jul, [facility] [facility] [id number] [place] [address] 40107- 9168 Jun, Medicare annual wellness visit, initial Z00.00 ; Cervicalgia M54.2 ; Radiculopathy of cervical region M54.12 ; Encounter for immunization Z23 ; Type 2 diabetes mellitus with unspecified complications E11.8 and Essential hypertension I10 [facility] [facility] [id number] [place] [address] 04310- 5665 Jun, [facility] [facility] [id number] [place] [address] 10064- 6218 May, Hypothyroidism (acquired) E03.9 [facility] [id number] [place] [address] 04527- 0690 May, Dysuria R30.0 ; Essential hypertension I10 ; Hypothyroidism (acquired) E03.9 and PVD (peripheral vascular disease) I73.9 [facility] [id number] [place] [address] 42662 -3709 May, Burning with urination R30.0 and Acute cystitis with hematuria N30.01 [facility] [id number] [place] [address] 81447- 6001 May, Dental examination Z01.20 [facility] [id number] [place] [address] 25625- 5451 May, Hypothyroidism (acquired) E03.9 [facility] [id number] [place] [address] 21559- 1792 Feb, [facility] [id number] [place] [address] 04420- 3692 Feb, 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 ; PVD ( peripheral vascular disease) I73.9 ; Type 2 diabetes mellitus with unspecified complications E11.8 and Essential hypertension I10 [facility] [id number] [place] [address] 17522- 9152 Jan, [facility] [id number] [place] [address] 19889- 3199 Jan, Hypothyroidism (acquired) E03.9 [facility] [id number] [place] [address] 93619- 2254 Jan, [facility] [id number] [place] [address] 40372- 5640 Jan, [facility] [id number] [place] [address] 66885- 5418 Jan, Type 2 diabetes mellitus with unspecified complications E11.8 ; 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 and Essential ( primary) hypertension I10 [facility] [id number] [place] [address] 94966- 4673 Jan, Type 2 diabetes mellitus with unspecified complications E11.8 ; 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 ; Essential hypertension I10 and PVD (peripheral vascular disease) I73.9 [facility] [id number] [place] [address] 80754- 1196 Jan, [facility] [id number] [place] [address] 59586- 9350 Jan, [place] [facility] [id number] [place] [address] 85871- 5499 Jan, [place] [id number] [place] [address] 82541- 9483 Jan, Weakness R53.1 ; Fatigue, unspecified type R53.83 ; PVD ( peripheral vascular disease) I73.9 ; Acute osteomyelitis of other site M86.18 ; Type 2 diabetes mellitus with diabetic neuropathy, unspecified E11.40 and long-term 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.4 [place] [id number] [place] [address] 52799- 5235 Dec, [place] [id number] [place] [address] 47408- 4470 Dec, Type 2 diabetes mellitus with unspecified complications E11.8 [facility] [id number] [place] [address] 72834- 8668 Dec, [place] [id number] [place] [address] 20857- 2195 Dec, Pressure ulcer, unspecified pressure ulcer stage L89.90 and Type 2 diabetes mellitus with unspecified complications E11.8 [facility] [address] [place] [address] 66054 -7970 Dec, Toe infection L08.9 [facility] [id number] [place] [address] 48921- 9827 November, Dental caries K02.9 [facility] [id number] [place] [address] 01571- 6981 November, [facility] [address] 91529- 3596 November, Dental examination Z01.20 [facility] [address] 50412- 3512 Sep, Lipoma of torso D17.1 and Thoracic neuritis M54.14 [facility] [id number] [place] [address] 27128- 3772 Sep, [facility] [address] 56298- 8025 Aug, [facility] [id number] [place] [address] 37905 -6906 Jul, Dysuria R30.0 and UTI (urinary tract infection) N39.0 [facility] [id number] [place] [address] 27467- 9919 Jun, Left shoulder pain M25.512 [facility] [address] 34567- 9938 May, Shoulder pain, left M25.512 [facility] [id number] [place] [address] 71944- 5611 May, [facility] [id number] [place] [address] 33503- 1277 May, [facility] [id number] [place] [address] 05950- 0934 May, Left shoulder pain M25.512 [facility] [address] 79620- 2526 May, [facility] [id number] [place] [address] 62870- 3367 Apr, Encounter for immunization Z23 [facility] [id number] [place] [address] 79284- 2326 Apr, Urinary tract infection, site not specified N39.0 ; Hypotension, unspecified I95.9 ; Type 2 diabetes mellitus with unspecified complications E11.8 and Generalized edema R60.1 [facility] [id number] [place] [address] 54671- 8596 Apr, [facility] [address] 87918- 9761 Mar, Diabetes with other specified manifestations, type II or unspecified type, not stated as uncontrolled 250.80 [place] [address] 70814- 5261 Feb, Gout 274.9 and Diabetes 250.00 [place] [address] 09864- 7887 Jan, [place] [address] 64842- 5170 November, CAD (coronary artery disease) 414.00 and CHF (congestive heart failure) 428.0 [place] [address] 65732- 6337 Oct, [place] [id number] [place] [address] 54829- 1383 Oct, [facility] [id number] [place] [address] 14517- 6479 Oct, [facility] [id number] [place] [address] 75174- 9953 Sep, [facility] [address] 62133- 8587 Sep, [facility] [id number] [place] [address] 65030- 2903 Sep, [facility] [address] 73338- 9759 Sep, [facility] [place] [facility] [address] [id number] [place] [address]- 2220 Aug, [facility] [place] [facility] [address] [id number] [place] [address]- 1466 Aug, [facility] [place] [facility] [address] [id number] [place] [address]- 4656 Aug, 2014 [facility] [place] [facility] [address] [id number] [place] [address]- 4846 Aug, 2014 [facility] [place] [facility] [address] [id number] [place] [address]- 4486 Aug, [facility] [place] [facility] [address] [id number] [place] [address]- 6186 Aug, [facility] [place] [facility] [address] [id number] [place] [address]- 3506 Aug, [facility] [place] [facility] [address] [id number] [place] [address]- 0293 Aug, [facility] [place] [facility] [address] [id number] [place] [address]- 8239 Jul, [facility] [place] [facility] [address] [id number] [place] [address] Jul, [facility] [place] [facility] [address] [id number] [place] [address] Jul, [facility] [place] [facility] [address] [id number] [place] [address] Jul, [facility] [place] [facility] [address] [id number] [place] [address] Jul, [facility] [place] [facility] [address] [id number] [place] [address] Jul, [facility] [place] [facility] [address] [facility] [id number] [place] [address] Jul, [facility] [place] [facility] [address] [id number] [place] [address] Jul, [facility] [address] [id number] [place] [address] Jul, [facility] [address] [id number] [place] [address] Jul, [facility] [address] [id number] [place] [address] Jun, [facility] [address] [id number] [place] [address] Jun, [facility] [address] [id number] [place] [address] Jun, [facility] [address] [id number] [place] [address] Jun, [facility] [address] [id number] [place] [address] Jun, [facility] [address] [id number] [place] [address] Jun, [facility] [address] [id number] [place] [address] Jun, [facility] [address] [id number] [place] [address] Jun, [facility] [place] [facility] [address] [id number] [place] [address] Jun, [facility] [place] [facility] [address] [id number] [place] [address] Jun, [facility] [place] [facility] [address] [id number] [place] [address] May, [facility] [place] [facility] [address] [id number] [place] [address] May, [facility] [place] [facility] [address] [id number] [place] [address] Mar, [facility] [place] [facility] [address] [id number] [place] [place] [address] Mar, [facility] [place] [facility] [address] [id number] [place] [address] 44[address] Mar, [facility] [place] [facility] [address] [id number] [place] [address] 5865 Mar, [facility] [place] [facility] [address] [id number] [place] [address] 7168 Feb, [facility] [place] [facility] [address] [id number] [place] [address] 9228 Feb, [facility] [place] [facility] [address] [id number] [place] [address] 7829 Feb, [facility] [place] [facility] [address] [id number] [place] [address]- 0234 Jan, [facility] [place] [facility] [address] [id number] [place] [address]- 1096 Jan, [facility] [place] [facility] [address] [id number] [place] [address]- 8276 Jan, [facility] [place] [facility] [address] [id number] [place] [address]- 0895 Jan, [facility] [place] [facility] [address] [id number] [place] [address]- 6096 Jan, [facility] [place] [facility] [address] [id number] [place] [address] 6500 Jan, [facility] [place] [facility] [address] [id number] [place] [address]- 4077 Jan, [facility] [place] [facility] [address] [id number] [place] [address]- 7477 Jan, [facility] [place] [facility] [address] [id number] [place] [address]- 0477 Jan, [facility] [place] [facility] [address] [id number] [place] [address]- 5734 Jan, [facility] [address] [id number] [place] [address]- 7157 Dec, [facility] [place] [facility] [address] [id number] [place] [address]- 3014 Dec, [facility] [place] [facility] [address] [id number] [place] [address]- 3078 November, [facility] [place] [facility] [address] [id number] [place] [address]- 2143 November, [facility] [place] [facility] [address] [id number] [place] [address]- 5539 November, [facility] [place] [facility] [address] [id number] [place] [address]- 9313 November, [facility] [place] [facility] [address] [id number] [place] [address]- 9029 November, [facility] [place] [facility] [address] [id number] [place] [address]- 4175 November, [facility] [place] [facility] [address] [id number] [place] [address]- 6764 November, [facility] [place] [facility] [address] [id number] [place] [address]- 0310 Oct, [facility] [place] [facility] [address] [id number] [place] [address]- 6677 Oct, [facility] [place] [facility] [address] [id number] [place] [address]- 2336 Sep, [facility] [place] [facility] [address] [id number] [place] [address]- 1353 Sep, [facility] [place] [facility] [address] [id number] [place] [address]- 6890 Sep, [facility] [place] [facility] [address] [id number] [place] [address]- 2707 Sep, [facility] [place] [facility] [address] [id number] [place] [address]- 3623 Sep, [facility] [place] [facility] [address] [id number] [place] [address]- 2200 Sep, [facility] [place] [facility] [address] [id number] [place] [address]- 6339 Sep, [facility] [place] [facility] [address] [id number] [place] [address]- 5253 Sep, [facility] [place] [facility] [address] [id number] [place] [address]- 5415 Sep, [facility] [place] [facility] [address] [id number] [place] [address]- 5235 Sep, [facility] [place] [facility] [address] [id number] [place] [address]- 0741 Aug, [facility] [place] [facility] [address] [id number] [place] [address]- 8819 Aug, [facility] [place] [facility] [address] [id number] [place] [address]- 7513 Jul, [facility] [place] [facility] [address] [id number] [place] [address]- 4801 Jul, [facility] [place] [facility] [address] [id number] [place] [address]- 0609 Jul, [facility] [place] [facility] [address] [id number] [place] [address]- 9200 Jul, [facility] [place] [facility] [address] [id number] [place] [address]- 6497 Jul, [facility] [place] [facility] [address] [id number] [place] [address]- 6481 Jul, [facility] [place] [facility] [address] [id number] [place] [address]- 9497 Jun, [facility] [place] [facility] [address] [id number] [place] [address]- 1661 Jun, [facility] [place] [facility] [address] [id number] [place] [address]- 4764 Jun, [facility] [place] [facility] [address] [id number] [place] [address]- 7014 Jun, [facility] [place] [facility] [address] [id number] [place] [address]- 2964 May, [facility] [place] [facility] [address] [id number] [place] [address]- 0701 May, [facility] [place] [facility] [address] [id number] [place] [address]- 5675 May, [facility] [place] [facility] [address] [id number] [place] [address]- 3236 May, [facility] [place] [facility] [address] [id number] [place] [address]- 3181 May, [facility] [place] [facility] [address] [id number], [place] [address]- 4567 Apr, [facility] [place] [facility] [address] [id number], [place] [address]- 9897 Apr, [facility] [place] [facility] [address] [id number], [place] [address]- 1706 Apr, [facility] [place] [facility] [address] [id number], [place] [address]- 5429 Apr, [facility] [place] [facility] [address] [id number], [place] [address]- 5510 Apr, [facility] [place] [facility] [address] [id number], [place] [address]- [address]238 28 Apr, 2013 [facility] [place] [facility] [address] [id number], [place] [address]- 6592 Apr, [facility] [place] [facility] [address] [id number], [place] [address]- 1114 Apr, [facility] [place] [facility] [address] [id number] [place] [address]- 7469 Apr, [facility] [place] [facility] [address] [id number] [place] [address]- 4796 Apr, [facility] [place] [facility] [address] [id number] [place] [address]- 8646 Apr, [facility] [place] [facility] [address] [id number] [place] [address]- 4931 Apr, [facility] [place] [facility] [address] [id number] [place] [address]- 6727 Mar, [facility] [place] [facility] [address] [id number] [place] [address]- 5622 Mar, [facility] [place] [facility] [address] [id number] [place] [address]- 8529 Feb, [facility] [place] [facility] [address] [id number] [place] [address]- 1215 Jan, [facility] [place] [facility] [address] [id number] [place] [address]- 9200 Jan, [facility] [place] [facility] [address] [id number] [place] [address]- 1118 Jan, [facility] [place] [facility] [address] [id number] [place] [address]- 8348 Jan, [facility] [place] [facility] [address] [id number] [place] [address]- 6759 Dec, [facility] [place] [facility] [address] [id number] [place] [address]- 6825 Dec, [facility] [place] [facility] [address] [id number] [place] [address]- 2643 Dec, [facility] [place] [facility] [address] [id number] [place] [address]- 2066 Dec, [facility] [place] [facility] [address] [id number] [place] [address]- 3732 Dec, [facility] [place] [facility] [address] [id number] [place] [address]- 1868 Dec, [facility] [address] [id number] [place] [address]- 9824 Dec, [facility] [address] [id number] [place] [address]- 1823 November, [facility] [address] [id number] [place] [address]- 7066 November, [facility] [address] [id number] [place] [address]- 4115 November, [facility] [address] [id number] [place] [address]- 7838 Oct, [facility] [address] [id number] [place] [address]- 7628 Oct, [facility] [address] [id number] [place] [address]- 3570 Oct, [facility] [address] [id number] [place] [address]- 5968 Oct, [facility] [address] [id number] [place] [address]- 1300 Oct, [facility] [address] [id number] [place] [address]- 1954 Sep, [facility] [address] [id number], [place] [address]- 2152 Sep, [facility] [address] [id number] [place] [address]- 2567 Sep, [facility] [place] [facility] [address] [id number] [place] [address]- 1331 Sep, [facility] [address] [id number] [place] [address]- 8177 Aug, [facility] [address] [id number], [place] [address]- 8331 Aug, [facility] [place] [facility] [address] [id number] [place] [address]- 0646 Aug, [facility] [place] [facility] [address] [id number] [place] [address]- 4876 Aug, [facility] [place] [facility] [address] [facility] [id number] [place] [address]- 3536 Jul, [facility] [place] [facility] [address] [id number] [place] [address]- 8483 Jul, [facility] [place] [facility] [address] [facility] [id number] [place] [address] Jun, [facility] [place] [facility] [address] [facility] [id number] [place] [address]- 0812 Jun, [facility] [address] [facility] [id number] [place] [address]- 4067 Jun, [facility] [place] [facility] [address] [facility] [id number] [place] [address]- 4432 Jun, [facility] [place] [facility] [address] [facility] [id number] [place] [address]- 0606 May, [facility] [place] [facility] [address] [facility] [id number] [place] [address]- 5015 May, [facility] [place] [facility] [address] [facility] [id number] [place] [address]- 9095 May, [facility] [place] [facility] [address] [facility] [id number], [place] [address]- 9178 May, [facility] [place] [facility] [address] [facility] [id number] [place] [address]- 3026 Apr, [facility] [place] [facility] [address] [facility] [id number] [place] [address]- 9631 Apr, [facility] [place] [facility] [address] [facility] [id number] 1319 Apr, [facility] [place] [facility] [address] [id number] [place] [address]- 8175 Apr, [facility] [place] [facility] [address] [id number] [place] [address]- 4246 Apr, [facility] [place] [facility] [address] [id number] [place] [address]- 1416 Apr, [facility] [place] [facility] [address] [id number] [place] [address]- 9206 Apr, [facility] [place] [facility] [address] [id number] [place] [address]- 0895 Apr, [facility] [place] [facility] [address] [id number] [place] [address] Apr, [facility] [place] [facility] [address] [id number] [place] [address] Apr, [facility] [place] [facility] [address] [id number] [place] [address]- 3290 Feb, [facility] [place] [facility] [address] [id number] [place] [address]- 0161 Feb, [facility] [place] [facility] [address] [id number] [place] [address]- 7028 Jan, [facility] [place] [facility] [address] [id number] [place] [address]- 1139 Jan, [facility] [place] [facility] [address] [id number] [place] [address]- 0217 Jan, [facility] [place] [facility] [address] [id number] [place] [address]- 9984 Jan, [facility] [place] [facility] [address] [id number] [place] [address]- 3996 Jan, [facility] [place] [facility] [address] [id number] [place] [address]- 3516 Jan, [facility] [place] [facility] [address] [id number] [place] [address]- 7757 Dec, [facility] [place] [facility] [address] [id number] [place] [address]- 4927 November, [facility] [place] [facility] [address] [id number] [place] [address]- 2606 November, [facility] [place] [facility] [address] [id number] [place] [address]- 3698 November, [facility] [place] [facility] [address] [id number] [place] [address]- 7016 Sep, [facility] [place] [facility] [address] [id number] [place] [address]- 1251 Sep, [facility] [place] [facility] [address] [id number] [place] [address]- 8026 Sep, [facility] [place] [facility] [address] [id number] [place] [address]- 4056 Sep, [facility] [place] [facility] [address] [id number] [place] [address]- 0221 Sep, [facility] [place] [facility] [address] [id number] [place] [address]- 9072 Sep, [facility] [place] [facility] [address] [id number] [place] [address]- 2392 Aug, [facility] [place] [facility] [address] [id number] [place] [address]- 0985 Aug, [facility] [place] [facility] [address] [id number] [place] [address]- 8026 Aug, [facility] [place] [facility] [address] [id number] [place] [address]- 4906 Jul, [facility] [place] [facility] [address] [id number] [place] [address]- 2836 Jul, [facility] [place] [facility] [address] [id number] [place] [address]- 3096 Jul, [facility] [place] [facility] [address] [id number] [place] [address]- 3830 Jul, [facility] [address] [id number] [place] [address]- 0338 Jun, [facility] [address] [id number] [place] [address]- 1056 Jun, [facility] [address] [id number] [place] [address]- 6399 Jun, [facility] [address] [id number] [place] [address]- 4478 Jun, [facility] [address] [id number] [place] [address]- 3596 Jun, [facility] [address] [id number] [place] [address]- 0989 Jun, [facility] [address] [id number] [place] [address]- 8069 May, [facility] [address] [id number] [place] [address]- 8819 May, [facility] [address] [id number] [place] [address]- 5199 May, [facility] [address] [id number] [place] [address]- 2769 Apr, [facility] [address] [id number] [place] [address]- 8287 Jan, [facility] [address] [id number] [place] [address]- 6192 Jun, [facility] [place] [facility] [address] [id number] [place] [address]- 7006 Jun, [facility] [address] [id number] [place] [address]- 7644 Jun, [facility] [address] [id number] [place] [address]- 0659 Jun, [facility] [address] [id number] [place] [address]- 9786 15 Jun, 2010 [facility] [place] [facility] [address] [id number] [place] [address]- 5396 13 Jun, 2010 [facility] [address] [id number] [place] [address]- 2546 13 Jun, 2010 [facility] [place] [facility] [address] [id number] [place] [address] 2546 Apr, [facility] [address] [id number] [place] [address]- 2016 17 Feb, 2010 [facility] [place] [facility] [address] [id number] [place] [address]- 1896 15 Aug, 2009 [facility] [address] [id number] [place] [address]- 7996 18 Jul, 2009 [facility] [address] [id number] [place] [address]- 5866 11 Jul, 2009 [facility] [address] [id number] [place] [address]- 4199 29 Jun, 2009 [facility] [place] [facility] [address] [id number] [place] [address]- 0118 28 Jun, 2009 [facility] [place] [facility] [address] [id number] [place] [address] 2549 28 Jun, 2009 [facility] [place] [facility] [address] [id number] [place] [address]- 2541 22 Jun, 2009 [facility] [place] [facility] [address] [id number] [place] [address] 2546 16 Jun, 2009 [facility] [place] [facility] [address] [id number] [place] [address] 2546 09 Jun, 2009 [facility] [place] [facility] [address] [id number] [place] [address] 2546 Jun, [facility] [place] [facility] [id number], [place] [address]- 8224 May, [facility] [id number], [place] [address]- 8622 May, [facility] [id number], [place] [address]- 1033 May, [facility] [address] [id number], [place] [address]- 0266 May, [facility] [id number] [place] [address]- 7608 May, [facility] [id number] [place] [address]- 6493 May, [facility] [id number] [place] [address]- 9888 May, [facility] [id number] [place] [address]- 5448 Apr, [facility] [id number], [place] [address]- 4905 Apr, [facility] [id number], [place] [address]- 7668 Jan, [facility] [id number], [place] [address]- 2416 Oct, IMMUNIZATIONS No Known Immunizations SOCIAL HISTORY Never Assessed REASON FOR VISIT Controlled Med Refill 02/04/2018 PLAN OF CARE VITAL SIGNS MEDICATIONS Medication [...]
--- OUTSIDE RECORDS SUMMARY | 2018-11-09 13:01 | XMS REPORT ---
Author Author PRABHA HILL 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 Worker Name Role Phone PRABHA HILL Unavailable PROBLEMS Type Condition ICD9-CM Code KPI63-VC Code Onset Dates Condition Status SNOMED Code Problem Hypoglycemia E16.2 Active 457113928 Problem Hallucinations R44.3 Active 1991844 Problem Unsteady gait R26.81 Active 71889758 Problem 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 Active [id number] Problem Dysuria R30.0 Active 79728593 Problem Anxiety F41.9 Active 33841097 Problem Dementia in other diseases classified elsewhere without behavioral disturbance F02.80 Active 755172459 Problem Other frontotemporal dementia G31.09 Active 204043212 Problem Parkinsons disease G20 Active 74641047 Problem Episodic cluster headache, not intractable G44.019 Active 194685875 Problem Neurogenic orthostatic hypotension G90.3 Active 896691042 Problem Mixed stress and urge urinary incontinence N39.46 Active 590258171 Problem 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 Active 699815007 Problem Essential hypertension I10 Active 77046812 Problem Type 2 diabetes mellitus with unspecified complications E11.8 Active 30016101 Problem PVD (peripheral vascular disease) I73.9 Active 396335406 Problem Dysthymia F34.1 Active 58333364 Problem Polydipsia R63.1 Active 57440154 Problem 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 Active 9184043004392 Problem Hypothyroidism (acquired) E03.9 Active 263890123 Problem Hyperlipemia, mixed E78.2 Active 912944514 Problem Dementia with Lewy bodies G31.83 Active 263088474 Problem Neuropathy G62.9 Active 263928621 Problem Hypernatremia E87.0 Active 94981445 ALLERGIES Substance Reaction Event Type Date Status Sulfamethoxazole-Trimethoprim Unknown Drug Allergy Dec, Active Protamine Sulfate Unknown Drug Allergy Dec, Active Penicillin V Potassium Unknown Drug Allergy Dec, Active Cipro lowers blood sugar Drug Allergy Dec, Active ENCOUNTERS Encounter Location Date Diagnosis [facility] [place] [id number] [place] [address] 89785- 3978 Mar, [facility] [place] [id number] [place] [address] 43654- 3544 Feb, Left shoulder pain M25.512 [facility] [place] [address] 49982- 5057 Feb, 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 [place] [address] 93527- 1191 Jan, Left shoulder pain M25.512 [place] [address] 42170- 9619 Dec, Parkinsons disease G20 [place] [address] 20116- 1746 Dec, Left shoulder pain M25.512 [place] [address] 22316- 7526 Dec, Type 2 diabetes mellitus with unspecified complications E11.8 ; Anxiety F41.9 ; Therapeutic drug monitoring Z51.81 and Analgesic use Z79.899 [place] [id number] [place] [address] 26585- 9660 November, [facility] [place] [id number] [place] [address] 73146- 0383 November, [facility] [place] [address] 55613- 0505 November, Left shoulder pain M25.512 [facility] [place] [id number] [place] [address] 80809- 2468 Oct, [facility] [id number] [place] [address] 68104 -3065 Oct, [place] [address] [address] 0665 Oct, Parkinsons disease G20 [facility] [id number] [place] [address] 41143 -8353 Oct, Acute cystitis without hematuria N30.00 and Viral upper respiratory tract infection J06.9 [place] [id number] [place] [address] 23808- 2569 Oct, [place] [id number] [place] [address] 39863- 2734 Oct, Type 2 diabetes mellitus with unspecified complications E11.8 [place] [id number] [place] [address] 93061- 3632 Oct, Left shoulder pain M25.512 [place] [id number] [place] [address] 50079- 1086 Oct, Type 2 diabetes mellitus with unspecified complications E11.8 ; Dysuria R30.0 and Neurogenic orthostatic hypotension G90.3 [place] [id number] [place] [address] 40683- 4981 Sep, Left shoulder pain M25.512 [place] [id number] [place] [address] 34050- 3166 12 Sep, 2017 Medicare annual wellness visit, initial Z00.00 ; Parkinsons disease G20 ; Type 2 diabetes mellitus with unspecified complications E11.8 ; Essential hypertension I10 ; 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 ; Hypothyroidism (acquired ) E03.9 ; PVD (peripheral vascular disease) I73.9 ; Dysthymia F34.1 ; Hyperlipemia, mixed E78.2 ; Neuropathy G62.9 ; Encounter for immunization Z23 ; Encounter for other screening for malignant neoplasm of breast Z12.39 and Mixed stress and urge urinary incontinence N39.46 [place] [id number] [place] [address] 90635- 8924 Aug, Parkinsons disease G20 [place] [id number] [place] [address] 74881- 2069 Aug, Type 2 diabetes mellitus with unspecified complications E11.8 ; Left shoulder pain M25.512 and Hypotensive episode I95.9 [place] [id number] [place] [address] 79001- 0450 09 Aug, 2017 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 [place] [address] 69371- 2305 07 Aug, 2017 Type 2 diabetes mellitus with unspecified complications E11.8 [place] [address] 81078- 1335 Jul, Callus of foot L84 [place] [address] 16917- 1023 Jul, [place] [address] 63584- 3198 Jul, Callus of foot L84 ; Episodic cluster headache, not intractable G44.019 ; Type 2 diabetes mellitus with unspecified complications E11.8 and Parkinsons disease G20 [place] [id number] [place] [address] 23702- 0971 Jul, [place] [id number] [place] [address] 55806- 1839 Jul, [place] [id number] [place] [address] 47505- 7215 Jun, Type 2 diabetes mellitus with unspecified complications E11.8 ; Unsteady gait R26.81 ; Forgetfulness R68.89 and Hallucinations R44.3 [place] [address] 11278- 0452 Jun, [place] [id number] [place] [address] 28051- 8891 Jun, Left shoulder pain M25.512 [place] [id number] [place] [address] 85279- 4169 May, Hypernatremia E87.0 and Polydipsia R63.1 [place] [address] 02060- 5123 08 May, 2017 Hypernatremia E87.0 and Polydipsia R63.1 [place] [address] 49992- 4633 May, Hypoglycemia E16.2 ; Dysuria R30.0 ; Unsteadiness on feet R26.81 ; Forgetfulness R68.89 ; Type 2 diabetes mellitus with unspecified complications E11.8 and Yeast infection involving the vagina and surrounding area B37.3 [place] [id number] [place] [address] 58648- 0733 May, Acute cystitis without hematuria N30.00 [facility] [id number] [place] [address] 23721 -5242 Apr, Dysuria R30.0 and Acute cystitis without hematuria N30.00 [place] [id number] [place] [address] 88876- 3044 Apr, Hypernatremia E87.0 and Polydipsia R63.1 [place] [id number] [place] [address] 41652- 9977 Apr, Vertigo R42 and Type 2 diabetes mellitus with unspecified complications E11.8 [place] [id number] [place] [address] 18982- 1231 Mar, [place] [id number] [place] [address] 86635- 0789 Mar, Left shoulder pain M25.512 [place] [id number] [place] [address] 31159- 0274 13 Mar, 2017 Vertigo R42 [place] [address] 67393- 2257 Mar, Polydipsia R63.1 [place] [id number] [place] [address] 46306- 6798 12 Mar, 2017 Polydipsia R63.1 [place] [address] 06990- 8829 11 Mar, 2017 Vertigo R42 [place] [address] 37414- 3242 07 Mar, 2017 Type 2 diabetes mellitus with unspecified complications E11.8 ; Vertigo R42 ; Polydipsia R63.1 ; Polyuria R35.8 ; Hypothyroidism ( acquired) E03.9 ; Abnormal urinalysis R82.90 and Dysthymia F34.1 [place] [address] 35035- 2636 05 Mar, 2017 Coronary artery disease of minto artery with stable angina pectoris, unspecified whether minto or transplanted heart I25.118 ; Systolic CHF, chronic I50.22 ; Hyperlipemia, mixed E78.2 and Essential hypertension I10 [facility] [address] [id number] Feb, Dental caries K02.9 [place] [address] 69096- 8713 Feb, Type 2 diabetes mellitus with diabetic neuropathy, unspecified E11.40 [place] [address] 06950- 0633 Dec, Left shoulder pain M25.512 [place] [id number] [place] [address] 61526- 1470 Dec, [place] [address] 94959- 6354 Dec, Type 2 diabetes mellitus with unspecified complications E11.8 [facility] [id number] [place] [address] [id number] Dec, Dental examination Z01.20 [place] [address] 35000- 6083 Dec, Type 2 diabetes mellitus with diabetic neuropathy, unspecified E11.40 [place] [id number] [place] [address] 91036- 1437 Dec, [place] [id number] [place] [address] 29898- 4696 Dec, Type 2 diabetes mellitus with diabetic neuropathy, unspecified E11.40 [place] [id number] [place] [address] 90766- 4587 November, Left shoulder pain M25.512 [place] [id number] [place] [address] 96586- 5348 November, [place] [id number] [place] [address] 442680- 6640 November, Type 2 diabetes mellitus with unspecified complications E11.8 and Dysuria R30.0 [place] [id number] [place] [address] 66855- 9510 Oct, Left shoulder pain M25.512 [place] [id number] [place] [address] 35921- 8397 Sep, Left shoulder pain M25.512 [place] [id number] [place] [address] 31647- 1660 Sep, Pre-op testing Z01.818 [place] [id number] [place] [address] 08268- 5905 Sep, Pre-op testing Z01.818 [place] [id number] [place] [address] 79681- 6008 Sep, Pre-op testing Z01.818 [place] [id number] [place] [address] 37498- 1453 Sep, Pre-op testing Z01.818 and Mouth pain K13.79 [place] [id number] [place] [address] 77382- 5422 Sep, Left shoulder pain M25.512 [place] [id number] [place] [address] 25357- 4113 08 Aug, 2016 Other eczema L30.8 [facility] [place] [id number] [place] [address] 01961- 0371 06 Aug, 2016 PVD (peripheral vascular disease) I73.9 ; Type 2 diabetes mellitus with unspecified complications E11.8 ; Acute cystitis with hematuria N30.01 ; Other eczema L30.8 ; Dysuria R30.0 and Left shoulder pain M25.512 [facility] [id number] [place] [address] 19569 -3281 Jul, Otalgia of right ear H92.01 and Blood in ear canal, right H92.21 [place] [id number] [place] [address] 38714- 9417 Jul, Arthralgia, unspecified joint M25.50 ; PVD (peripheral vascular disease) I73.9 and Neuropathy G62.9 [place] [id number] [place] [address] 77333- 0355 Jul, [place] [id number] [place] [address] 50110- 5897 Jun, Medicare annual wellness visit, initial Z00.00 ; Cervicalgia M54.2 ; Radiculopathy of cervical region M54.12 ; Encounter for immunization Z23 ; Type 2 diabetes mellitus with unspecified complications E11.8 and Essential hypertension I10 [place] [id number] [place] [address] 92946- 1190 Jun, [place] [id number] [place] [address] 88704- 7053 May, Hypothyroidism (acquired) E03.9 [place] [id number] [place] [address] 08519- 7118 May, Dysuria R30.0 ; Essential hypertension I10 ; Hypothyroidism (acquired) E03.9 and PVD (peripheral vascular disease) I73.9 [facility] [address] [address] May, Burning with urination R30.0 and Acute cystitis with hematuria N30.01 [facility] [place] [address] [address]- 4241 May, Dental examination Z01.20 [facility] [place] [id number] [place] [address] 06034- 3974 May, Hypothyroidism (acquired) E03.9 [facility] [place] [id number] [place] [address] 08023- 1283 Feb, [facility] [place] [id number] [place] [address] 56001- 2736 Feb, 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 ; PVD ( peripheral vascular disease) I73.9 ; Type 2 diabetes mellitus with unspecified complications E11.8 and Essential hypertension I10 [facility] [place] [id number] [place] [address] 44393- 2540 Jan, [facility] [place] [id number] [place] [address] 89097 254 Jan, Hypothyroidism (acquired) E03.9 [facility] [place] [id number] [place] [address] 29076- 4819 Jan, [facility] [place] [id number] [place] [address] 35913- 2543 Jan, [facility] [place] [id number] [place] [address] 36013- 2545 Jan, Type 2 diabetes mellitus with unspecified complications E11.8 ; 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 and Essential ( primary) hypertension I10 [facility] [place] [address] [address]- 2544 Jan, Type 2 diabetes mellitus with unspecified complications E11.8 ; 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 ; Essential hypertension I10 and PVD (peripheral vascular disease) I73.9 [facility] [place] [id number] [place] [address] 67216- 2302 Jan, [facility] [place] [id number] [place] [address] 22042- 8785 Jan, [facility] [place] [id number] [place] [address] 52030- 9494 Jan, [place] [address] 56253- 0082 Jan, Weakness R53.1 ; Fatigue, unspecified type R53.83 ; PVD ( peripheral vascular disease) I73.9 ; Acute osteomyelitis of other site M86.18 ; Type 2 diabetes mellitus with diabetic neuropathy, unspecified E11.40 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 [place] [address] 90328- 9360 Dec, [place] [id number] [place] [address] 39664- 1431 Dec, Type 2 diabetes mellitus with unspecified complications E11.8 [place] [id number] [place] [address] 57590- 8900 Dec, [place] [id number] [place] [address] 36529- 5182 Dec, Pressure ulcer, unspecified pressure ulcer stage L89.90 and Type 2 diabetes mellitus with unspecified complications E11.8 [facility] [id number] [place] [address] 28812 -6625 Dec, Toe infection L08.9 [place] [address] 48364- 7141 November, Dental caries K02.9 [place] [id number] [place] [address] 61934- 0136 November, [place] [address] 29317- 7964 November, Dental examination Z01.20 [facility] [place] [address], [place] [address]- 5088 Sep, Lipoma of torso D17.1 and Thoracic neuritis M54.14 [facility] [place] [id number] [place] [address] 92758- 6116 Sep, [facility] [place] [id number] [place] [address] 56738- 9107 Aug, [facility] [id number] [place] [address] 72331 -8695 Jul, Dysuria R30.0 and UTI (urinary tract infection) N39.0 [facility] [place] [id number] [place] [address] 03548- 8582 Jun, Left shoulder pain M25.512 [place] [id number] [place] [address] 63367- 5952 May, Shoulder pain, left M25.512 [place] [id number] [place] [address] 92863- 5506 May, [facility] [place] [id number] [place] [address] 22925- 4461 May, [facility] [place] [id number] [place] [address] 17120- 1535 May, Left shoulder pain M25.512 [facility] [place] [id number] [place] [address] 74313- 5413 May, [facility] [place] [id number] [place] [address] 40666- 0038 Apr, Encounter for immunization Z23 [facility] [place] [id number] [place] [address] 11943- 0161 08 Apr, 2015 Urinary tract infection, site not specified N39.0 ; Hypotension, unspecified I95.9 ; Type 2 diabetes mellitus with unspecified complications E11.8 and Generalized edema R60.1 [facility] [place] [address] [address]- 6528 Apr, [facility] [place] [id number] [place] [address] 515468- 4615 Mar, Diabetes with other specified manifestations, type II or unspecified type, not stated as uncontrolled 250.80 [facility] [place] [id number] [place] [address] 28807- 3353 Feb, Gout 274.9 and Diabetes 250.00 [facility] [place] [id number] [place] [address] 10950- 7532 Jan, [facility] [place] [address] 66779- 9741 November, CAD (coronary artery disease) 414.00 and CHF (congestive heart failure) 428.0 [facility] [place] [id number] [place] [address] 77670- 7228 Oct, [facility] [place] [id number] [place] [address] 91824- 9272 Oct, [facility] [place] [id number] [place] [address] 94724- 2875 Oct, [facility] [place] [id number] [address]- 7090 Sep, [facility] [place] [address], [place] [address]- 0419 Sep, [facility] [place] [id number] [address]- 0883 Sep, [facility] [place] [id number] [place] [address] 30525- 6037 Sep, [facility] [place] [id number] [place] [address] 20015- 8189 Aug, [facility] [place] [address] [address]- 1827 Aug, [facility] [place] [facility] [address] [id number] [place] [address]- 8015 Aug, 2014 [facility] [place] [facility] [address] [id number] [place] [address]- 6747 Aug, 2014 [facility] [place] [facility] [address] [id number] [place] [address]- 5416 Aug, 2014 [facility] [place] [facility] [address] [id number] [place] [address]- 6334 Aug, 2014 [facility] [place] [facility] [address] [id number] [place] [address]- 7881 Aug, [facility] [place] [facility] [address] [id number] [place] [address]- 8264 Aug, [facility] [place] [facility] [address] [id number] [place] [address]- 2710 Jul, [facility] [place] [facility] [address] [id number] [place] [address]- 6676 Jul, [facility] [place] [facility] [address] [id number] [place] [address]- 3259 Jul, [facility] [place] [facility] [address] [id number] [place] [address]- 2466 Jul, [facility] [place] [facility] [address] [id number] [address]- 3263 Jul, [facility] [place] [facility] [address] [id number], [place] [address]- 8249 Jul, [facility] [place] [facility] [address] [id number], [place] [address]- 5771 Jul, [facility] [place] [facility] [address] [id number] [address]- 3919 Jul, [facility] [place] [facility] [address] [id number] [address]- 6010 Jul, [facility] [place] [facility] [address] [id number], [place] [address] Jul, [facility] [place] [facility] [address] [id number] [place] [address] Jun, [facility] [place] [facility] [address] [id number] [place] [address] Jun, [facility] [place] [facility] [address] [facility] [id number] [place] [address] Jun, [facility] [place] [facility] [address] [id number] [place] [address] Jun, [facility] [place] [facility] [address] [id number] [place] [address] Jun, [facility] [place] [facility] [address] [id number] [place] [address] Jun, [facility] [place] [facility] [address] [id number] [place] [address] Jun, [facility] [place] [facility] [address] [id number] [place] [address] Jun, [facility] [place] [facility] [address] [facility] [id number] [place] [address] Jun, [facility] [place] [facility] [address] [facility] [id number] [place] [address] Jun, [facility] [place] [facility] [address] [id number] [place] [address] May, [facility] [place] [facility] [address] [id number], [place] [address] 14 May, 2014 [facility] [place] [facility] [address] [id number] [place] [address] 18 Mar, 2014 [facility] [place] [facility] [address] [id number] [place] [address]241 18 Mar, 2014 [facility] [place] [facility] [address] [facility] [id number] [place] [address] 4632 10 Mar, 2014 [facility] [place] [facility] [address] [id number] [place] [address] Mar, [facility] [place] [facility] [address] [id number] [place] [address] Feb, [facility] [place] [facility] [address] [id number] [place] [address] Feb, [facility] [place] [facility] [address] [id number] [place] [address] 7141 Feb, [facility] [place] [facility] [address] [id number] [place] [address] 1433 Jan, [facility] [place] [facility] [address] [id number] [place] [address] 9307 Jan, [facility] [place] [facility] [address] [id number] [place] [address] 3[address] Jan, [facility] [place] [facility] [address] [id number] [place] [address]- 0622 Jan, [facility] [place] [facility] [address] [id number] [place] [address]- 3163 Jan, [facility] [place] [facility] [address] [id number] [place] [address] 4850 Jan, [facility] [place] [facility] [address] [id number] [place] [address]- 6116 Jan, [facility] [place] [facility] [address] [id number] [place] [address]- 7633 Jan, [facility] [place] [facility] [address] [id number] [place] [address]- 0080 Jan, [facility] [place] [facility] [address] [id number] [place] [address]- 6711 Jan, [facility] [place] [facility] [address] [id number] [place] [address]- 1008 Dec, [facility] [place] [facility] [address] [id number] [place] [address]- 5512 Dec, [facility] [place] [facility] [address] [id number] [place] [address]- 7691 November, [facility] [place] [facility] [address] [id number] [place] [address] 3839 November, [facility] [place] [facility] [address] [id number] [place] [address] November, [facility] [place] [facility] [address] [id number] [place] [address]- 7043 November, [facility] [place] [facility] [address] [id number] [place] [address]- 1341 November, [facility] [place] [facility] [address] [id number] [place] [address] 1886 November, [facility] [place] [facility] [address] [id number] [place] [address]- 9133 November, [facility] [place] [facility] [address] [id number] [place] [address]- 6823 Oct, [facility] [place] [facility] [address] [id number] [place] [address]- 8490 Oct, [facility] [place] [facility] [address] [id number] [place] [address]- 9352 Sep, [facility] [place] [facility] [address] [id number] [place] [address]- 7204 Sep, [facility] [place] [facility] [address] [id number] [place] [address]- 3243 Sep, [facility] [place] [facility] [address] [id number] [place] [address]- 8092 Sep, [facility] [place] [facility] [address] [id number] [place] [address]- 3698 Sep, [facility] [place] [facility] [address] [id number] [place] [address]- 0677 Sep, [facility] [place] [facility] [address] [id number] [place] [address]- 4147 12 Sep, 2013 [facility] [place] [facility] [address] [id number] [place] [address]- 4115 Sep, [facility] [place] [facility] [address] [id number] [place] [address]- 6336 Sep, [facility] [place] [facility] [address] [id number] [place] [address]- 9536 Sep, [facility] [place] [facility] [address] [id number] [place] [address]- 9905 Aug, [facility] [place] [facility] [address] [id number] [place] [address]- 1688 Aug, [facility] [place] [facility] [address] [id number] [place] [address]- 1241 Jul, [facility] [place] [facility] [address] [id number] [place] [address]- 6955 Jul, [facility] [place] [facility] [address] [id number] [place] [address]- 4317 Jul, [facility] [place] [facility] [address] [id number] [place] [address]- 3207 Jul, [facility] [place] [facility] [address] [id number] [place] [address]- 5527 Jul, [facility] [place] [facility] [address] [id number] [place] [address]- 7082 Jul, [facility] [place] [facility] [address] [id number] [place] [address]- 7557 Jun, [facility] [place] [facility] [address] [id number] [place] [address]- 3515 Jun, [facility] [place] [facility] [address] [id number] [place] [address]- 2601 Jun, [facility] [place] [facility] [address] [id number] [place] [address]- 1168 Jun, [facility] [place] [facility] [address] [id number] [place] [address]- 9565 14 May, 2013 [facility] [place] [facility] [address] [id number] [place] 14 May, 2013 [facility] [place] [facility] [address] [id number] [place] [address] May, [facility] [place] [facility] [address] [id number] [place] [address]- 6917 May, [facility] [place] [facility] [address] [id number] [place] [address]- 5961 May, [facility] [place] [facility] [address] [id number] [place] [address]- 4699 Apr, [facility] [place] [facility] [address] [id number] [place] [address]- 4684 Apr, [facility] [place] [facility] [address] [id number] [place] [address]- 5387 Apr, [facility] [place] [facility] [address] [id number] [place] [address]- 7006 Apr, [facility] [place] [facility] [address] [id number] [place] [address]- 0993 Apr, [facility] [place] [facility] [address] [id number] [place] [address]- 3223 Apr, [facility] [place] [facility] [address] [id number] [address]- 7843 Apr, [facility] [place] [facility] [address] [id number] [place] [address]- 0946 Apr, [facility] [place] [facility] [address] [id number] [place] [address]- 1784 Apr, [facility] [place] [facility] [address] [id number] [address]48 Apr, [facility] [place] [facility] [address] [id number] [address]- 4375 Apr, [facility] [place] [facility] [address] [id number] [place] [address]- 0606 Apr, [facility] [place] [facility] [address] [id number] [place] [address]- 5486 Mar, [facility] [place] [facility] [address] [id number] [place] [address]- 8824 Mar, [facility] [place] [facility] [address] [id number] [place] [address]- 3375 Feb, [facility] [place] [facility] [address] [id number] [place] [address]- 9624 Jan, [facility] [place] [facility] [address] [id number] [place] [address]- 2301 Jan, [facility] [place] [facility] [address] [id number] [place] [address]- 2279 Jan, [facility] [place] [facility] [address] [id number] [place] [address]- 5537 Jan, [facility] [place] [facility] [address] [id number] [place] [address]- 4770 Dec, [facility] [place] [facility] [address] [id number] [place] [address]- 6399 Dec, [facility] [place] [facility] [address] [id number], [place] [address]- 8425 Dec, [facility] [place] [facility] [address] [id number], [place] [address]- 9185 Dec, [facility] [place] [facility] [address] [id number] [place] [address]- 1394 Dec, [facility] [place] [facility] [address] [id number] [place] [address]- 9269 Dec, [facility] [place] [facility] [address] [id number] [place] [address]- 6679 Dec, [facility] [place] [facility] [address] [id number] [place] [address]- 2857 November, [facility] [address] [id number] [place] [address]- 9991 November, [facility] [address] [id number] [place] [address]- 3186 November, [facility] [address] [id number] [place] [address]- 6877 Oct, [facility] [address] [id number] [place] [address]- 2678 Oct, [facility] [address] [id number] [place] [address]- 7796 Oct, [facility] [address] [id number] [place] [address]- 4155 Oct, [facility] [address] [id number] [place] [address]- 6319 Oct, [facility] [address] [id number] [place] [address]- 1434 Sep, [facility] [address] [id number] [place] [address]- 6569 Sep, [facility] [address] [id number] [place] [address]- 2955 Sep, [facility] [address] [id number] [place] [address]- 0336 Sep, [facility] [address] [id number] [place] [address]- 4546 Aug, [facility] [place] [facility] [address] [id number] [place] [address]- 2679 Aug, [facility] [place] [facility] [address] [id number] [place] [address]- 7766 Aug, [facility] [place] [facility] [address] [id number] [place] [address]- 5483 Aug, [facility] [place] [facility] [address] [id number] [place] [address]- 1028 Jul, [facility] [place] [facility] [address] [id number] [place] [address]- 6095 Jul, [facility] [place] [facility] [address] [facility] [id number] [place] [address]- 5273 Jun, [facility] [place] [facility] [address] [id number] [place] [address]- 7126 Jun, [facility] [place] [facility] [address] [id number] [place] [address]- 8788 Jun, [facility] [place] [facility] [address] [facility] [id number] [place] [address]- 8978 Jun, [facility] [place] [facility] [address] [facility] [id number] [place] [address]- 4579 May, [facility] [place] [facility] [address] [id number], [place] [address]- 5936 May, [facility] [place] [facility] [address] [id number], [place] [address]- 4984 May, [facility] [place] [facility] [address] [facility] [id number], [place] [address]- 4459 May, [facility] [place] [facility] [address] [id number], [place] [address]- 6861 Apr, [facility] [place] [facility] [address] [id number] [address]- 8404 Apr, [facility] [place] [facility] [address] [id number] [place] [address]- 9802 Apr, [facility] [place] [facility] [address] [facility] [id number], [place] [address]- 2521 Apr, [facility] [place] [facility] [address] [facility] [id number][place] [address]- 0542 30 Apr, 2012 [facility] [place] [facility] [address] [id number] [place] [address]- 9307 Apr, [facility] [place] [facility] [address] [id number] [place] [address]- 4953 Apr, [facility] [place] [facility] [address] [id number] [place] [address]- 3692 Apr, [facility] [place] [facility] [address] [id number] [place] [address]- 3607 Apr, [facility] [place] [facility] [address] [id number] [place] [address]- 5891 Apr, [facility] [place] [facility] [address] [id number] [place] [address]- 7666 Feb, [facility] [place] [facility] [address] [id number] [place] [address]- 9458 Feb, [facility] [place] [facility] [address] [id number] [place] [address]- 3607 Jan, [facility] [place] [facility] [address] [id number] [place] [address]- 0549 Jan, [facility] [place] [facility] [address] [id number] [place] [address]- 0963 Jan, [facility] [place] [facility] [address] [id number] [place] [address]- 3850 Jan, [facility] [place] [facility] [address] [id number] [place] [address]- 2671 Jan, [facility] [place] [facility] [address] [id number] [place] [address]- 0223 Jan, [facility] [place] [facility] [address] [id number] [place] [address]- 9029 Dec, [facility] [place] [facility] [address] [id number] [place] [address]- 1036 November, [facility] [place] [facility] [address] [id number] [place] [address]- 9548 November, [facility] [place] [facility] [address] [id number] [place] [address]- 1569 November, [facility] [place] [facility] [address] [id number] [place] [address]- 0770 Sep, [facility] [place] [facility] [address] [id number] [place] [address]- 6137 Sep, [facility] [place] [facility] [address] [id number] [place] [address]- 7673 Sep, [facility] [place] [facility] [address] [id number] [place] [address]- 5113 Sep, [facility] [place] [facility] [address] [id number] [place] [address]- 3327 Sep, [facility] [place] [facility] [address] [id number] [place] [address]- 3520 Sep, [facility] [place] [facility] [address] [id number] [place] [address]- 6109 Aug, [facility] [place] [facility] [address] [id number] [place] [address]- 7170 Aug, [facility] [place] [facility] [address] [id number] [place] [address]- 1706 Aug, [facility] [place] [facility] [address] [id number] [place] [address]- 4809 Jul, [facility] [place] [facility] [address] [id number] [place] [address]- 1104 Jul, [facility] [place] [facility] [address] [id number] [place] [address]- 7013 Jul, [facility] [place] [facility] [address] [id number] [place] [address]- 0276 Jul, [facility] [place] [facility] [address] [id number] [place] [address]- 8078 Jun, [facility] [place] [facility] [address] [id number] [place] [address]- 0694 08 Jun, 2011 [facility] [place] [address] [id number] [place] 06 Jun, 2011 [facility] [place] [facility] [address] [id number] [place] 1796 06 Jun, 2011 [facility] [place] [facility] [address] [id number] [place] [address]- 3446 Jun, [facility] [place] [facility] [address] [id number] [place] [address]- 3408 Jun, [facility] [place] [address] [id number] [place] [address]- 8744 May, [facility] [place] [facility] [address] [id number] [place] [address]- 7875 May, [facility] [place] [address] [id number] [place] [address]- 8200 May, [facility] [place] [facility] [address] [id number] [place] [address]- 3532 Apr, [facility] [place] [facility] [address] [id number] [place] [address]- 1472 Jan, [facility] [place] [facility] [address] [id number] [place] [address]- 7517 Jun, [facility] [place] [facility] [address] [id number] [place] [address]- 9552 20 Jun, 2010 [facility] [place] [facility] [address] [id number], [place] [address]- 2546 15 Jun, 2010 [facility] [place] [facility] [address] [id number] [place] [address]- 1796 15 Jun, 2010 [facility] [place] [facility] [address] [id number] [place] [address]- 3576 15 Jun, 2010 [facility] [place] [facility] [address] [id number] [place] [address]- 8150 13 Jun, 2010 [facility] [place] [facility] [address] [id number] [place] [address]- 0576 13 Jun, 2010 [facility] [address] [id number] [place] [address]- 8136 Apr, [facility] [address] [id number] [place] [address] 2546 17 Feb, 2010 [facility] [place] [address] [id number] [place] [address] 2546 15 Aug, 2009 [facility] [address] [id number] [place] [address] 254 18 Jul, 2009 [facility] [place] [address] [id number] [place] [address]- 1846 Jul, [facility] [address] [id number] [place] [address]- 8413 29 Jun, 2009 [facility] [address] [id number] [place] [address]- 4487 28 Jun, 2009 [facility] [address] [id number] [place] [address]- 6637 28 Jun, 2009 [facility] [address] [id number] [place] [address]- 4651 22 Jun, 2009 [facility] [address] [id number] [place] [address] 254 16 Jun, 2009 [facility] [address] [id number] [place] [address] 2546 09 Jun, 2009 [facility] [address] [id number] [place] [address] 2549 Jun, [facility] [place] [facility] [address] [id number] [place] [address] 2546 30 May, 2009 [facility] [place] [facility] [address] [id number] [place] [address] 2546 27 May, 2009 [facility] [place] [facility] [address] [id number] [place] [address] 4589 May, [facility] [place] [address] [id number] [address] 2760 May, [facility] [place] [id number], [place] [address] 8031 May, [facility] [place] [id number], [place] [address]- 5505 May, [facility] [place] [id number], [place] [address] May, [facility] [place] [id number], [place] [address]- 9996 Apr, [facility] [place] [id number], [place] [address]- 8919 Apr, [facility] [place] [id number], [place] [address]- 5323 Jan, [facility] [place] [id number] [address] Oct, IMMUNIZATIONS No Known Immunizations SOCIAL HISTORY Never Assessed REASON FOR VISIT Diabetes f/u -Ramila BRAN PLAN OF CARE Activity Details Follow Up 3 Months Reason:DM VITAL SIGNS Height 62 in 2017-12-30 Weight 181.6 lbs 2017-12-30 Temperature 97.7 degrees Fahrenheit 2017-12-30 Heart Rate 76 bpm 2017-12-30 Respiratory Rate 18 2017-12-30 BMI 33.21 kg/m2 2017-12-30 Blood pressure systolic 110 mmHg 2017-12-30 Blood pressure diastolic 62 mmHg 2017-12-30 MEDICATIONS Medication Instructions Dosage Frequency Start Date End Date Duration Status Fish Oil 1000 MG Orally 2 times a day 1 capsule 12h Active Crestor 10 MG Orally Once a day 1 tablet 24h Active Furosemide 40 MG TAKE 1 TABLET BY MOUTH DAILY. 30 Active Trutest Blood Glucose Test Strip N/A subcutaneously 6 times a day. E11.40 test blood sugar Dec, Active Citalopram Hydrobromide 40 MG Orally Once a day 1 tablet 24h Active Fenofibrate 48 MG Orally Once a day 1 tablet 24h Active Zontivity 2.08 MG Orally Once a day 1 tablet 24h Active Clopidogrel Bisulfate 75 MG Orally Once a day 1 tablet 24h 90 Active Betamethasone Dipropionate Aug 0.05 % Externally 2 times a day 1 application to affected area 12h Aug, Not-Taking Donepezil HCl 10 MG Orally Once a day 1 tablet at bedtime 24h Jul, Active Levothyroxine Sodium 25 MCG Orally Once a day 1 tablet on an empty stomach in the morning 24h 30 Active Tresiba FlexTouch 200 UNIT/ML Subcutaneous once a day Inject 14 unitsin AM rather than PM 24h 27 Jan, 2016 90 Active Aspirin 81 MG Orally Once a day 1 tablet 24h Active Tramadol HCl 50 MG Orally 2 times a day 1 tablet as needed 12h 28 days Active Vitamin D-3 Active BD Pen Needle Mini U/F 31G X 5 MM subcutaneously 4 times a day as directed 6h Dec, 30 days Active Alcohol Swabs 70 % Wipe area prior to injection or testing blood sugar Oct, Active Carvedilol 3.125 MG Orally 2 times a day 1 tablet 12h Active Fenofibric Acid 135 MG Orally Once a day 1 capsule 24h Not-Taking RESULTS No Results PROCEDURES Procedure Date Ordered Result Body Site LAB NOT BILLED BY [facility] December 30, 2017 DRUG SCREENING TRAMADOL December 30, 2017 [facility] VISIT ESTABLISHED PATIENT December 30, 2017 INSTRUCTIONS MEDICATIONS ADMINISTERED No Known Medications MEDICAL [...]
--- OUTSIDE RECORDS SUMMARY | 2018-11-09 13:02 | XMS REPORT ---
Author Author PRABHA HILL [facility] Address [address] [place] [address] Care Team Providers Care Estimator Binding Name Role Phone PRABHA HILL Unavailable PROBLEMS Type Condition ICD9-CM Code SPQ86-GF Code Onset Dates Condition Status SNOMED Code Problem Hypoglycemia E16.2 Active 138261860 Problem Hallucinations R44.3 Active 2682752 Problem Unsteady gait R26.81 Active 14561685 Problem 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 Active [id number] Problem Dysuria R30.0 Active 15050025 Problem Anxiety F41.9 Active 08900139 Problem Dementia in other diseases classified elsewhere without behavioral disturbance F02.80 Active 966170652 Problem Other frontotemporal dementia G31.09 Active 123574230 Problem Parkinsons disease G20 Active 48198056 Problem Episodic cluster headache, not intractable G44.019 Active 098183659 Problem Neurogenic orthostatic hypotension G90.3 Active 586616315 Problem Mixed stress and urge urinary incontinence N39.46 Active 977911293 Problem 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 Active 430801029 Problem Essential hypertension I10 Active 74943336 Problem Type 2 diabetes mellitus with unspecified complications E11.8 Active 27394892 Problem PVD (peripheral vascular disease) I73.9 Active 325931715 Problem Dysthymia F34.1 Active 64529877 Problem Polydipsia R63.1 Active 77468138 Problem Coronary artery disease involving nuiqsut coronary artery of nuiqsut heart without angina pectoris I25.10 Active 4521164859864 Problem Hypothyroidism (acquired) E03.9 Active 557768486 Problem Hyperlipemia, mixed E78.2 Active 130947765 Problem Dementia with Lewy bodies G31.83 Active 265841426 Problem Neuropathy G62.9 Active 350603008 Problem Hypernatremia E87.0 Active 69691993 ALLERGIES No Information ENCOUNTERS Encounter Location Date Diagnosis [facility] [id number] [place] [address] 84903- 8735 Mar, [facility] [id number] [place] [address] 07350- 8445 Feb, Left shoulder pain M25.512 [facility] [id number] [place] [address] 82290- 7692 Feb, 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 [facility] [address] 84034- 0820 Jan, Left shoulder pain M25.512 [facility] [id number] [place] [address] 19120- 5675 Dec, Parkinsons disease G20 [facility] [id number] [place] [address] 54252- 0712 Dec, Left shoulder pain M25.512 [facility] [id number] [place] [address] 17195- 1553 Dec, Type 2 diabetes mellitus with unspecified complications E11.8 ; Anxiety F41.9 ; Therapeutic drug monitoring Z51.81 and Analgesic use Z79.899 [facility] [id number] [place] [address] 97316- 0631 November, [facility] [id number] [place] [address] 18753- 5586 November, [facility] [id number] [place] [address] 81648- 1797 November, Left shoulder pain M25.512 [facility] [id number] [place] [address] 15645- 9990 Oct, [facility] [id number] [place] [address] 32373 -8422 Oct, [facility] [id number] [place] [address] 94420- 3948 Oct, Parkinsons disease G20 [facility] [address] [place] [address] 39704 -8243 18 Oct, 2017 Acute cystitis without hematuria N30.00 and Viral upper respiratory tract infection J06.9 [facility] [id number] [place] [address] 84488- 3429 Oct, [facility] [id number] [place] [address] 89745- 8197 Oct, Type 2 diabetes mellitus with unspecified complications E11.8 [facility] [id number] [place] [address] 67325- 3478 Oct, Left shoulder pain M25.512 [facility] [id number] [place] [address] 72335- 0466 Oct, Type 2 diabetes mellitus with unspecified complications E11.8 ; Dysuria R30.0 and Neurogenic orthostatic hypotension G90.3 [facility] [address] 52098- 7946 Sep, Left shoulder pain M25.512 [facility] [id number] [place] [address] 21817- 1122 Sep, Medicare annual wellness visit, initial Z00.00 ; Parkinsons disease G20 ; Type 2 diabetes mellitus with unspecified complications E11.8 ; Essential hypertension I10 ; Coronary artery disease involving nuiqs[place] coronary artery of nuiqsut heart without angina pectoris I25.10 ; Hypothyroidism (acquired ) E03.9 ; PVD (peripheral vascular disease) I73.9 ; Dysthymia F34.1 ; Hyperlipemia, mixed E78.2 ; Neuropathy G62.9 ; Encounter for immunization Z23 ; Encounter for other screening for malignant neoplasm of breast Z12.39 and Mixed stress and urge urinary incontinence N39.46 [facility] [id number] [place] [address] 75182- 9691 Aug, Parkinsons disease G20 [facility] [id number] [place] [address] 67614- 2456 Aug, Type 2 diabetes mellitus with unspecified complications E11.8 ; Left shoulder pain M25.512 and Hypotensive episode I95.9 [facility] [id number] [place] [address] 92392- 7806 09 Aug, 2017 Coronary artery disease involving nuiqsut coronary artery of nuiqsut heart without angina pectoris I25.10 [facility] [id number] [place] [address] 67905- 3296 07 Aug, 2017 Type 2 diabetes mellitus with unspecified complications E11.8 [facility] [id number] [place] [address] 60899- 8993 Jul, Callus of foot L84 [facility] [address] 78526- 2288 Jul, [facility] [id number] [place] [address] 63780- 2233 Jul, Callus of foot L84 ; Episodic cluster headache, not intractable G44.019 ; Type 2 diabetes mellitus with unspecified complications E11.8 and Parkinsons disease G20 [facility] [id number] [place] [address] 75088- 7921 Jul, [facility] [id number] [place] [address] 14286- 0022 Jul, [facility] [id number] [place] [address] 12645- 1976 Jun, Type 2 diabetes mellitus with unspecified complications E11.8 ; Unsteady gait R26.81 ; Forgetfulness R68.89 and Hallucinations R44.3 [facility] [id number] [place] [address] 31378- 7806 Jun, [facility] [id number] [place] [address] 69632- 6194 Jun, Left shoulder pain M25.512 [facility] [id number] [place] [address] 95109- 0560 May, Hypernatremia E87.0 and Polydipsia R63.1 [id number] [place] [address] 77854- 1907 08 May, 2017 Hypernatremia E87.0 and Polydipsia R63.1 [facility] [id number] [place] [address] 53476- 9697 May, Hypoglycemia E16.2 ; Dysuria R30.0 ; Unsteadiness on feet R26.81 ; Forgetfulness R68.89 ; Type 2 diabetes mellitus with unspecified complications E11.8 and Yeast infection involving the vagina and surrounding area B37.3 [facility] [id number] [place] [address] 38128- 2854 May, Acute cystitis without hematuria N30.00 [facility] [id number] [place] [address] 69993 -1667 Apr, Dysuria R30.0 and Acute cystitis without hematuria N30.00 [facility] [address] 29419- 2999 Apr, Hypernatremia E87.0 and Polydipsia R63.1 [facility] [id number] [place] [address] 00610- 7066 Apr, Vertigo R42 and Type 2 diabetes mellitus with unspecified complications E11.8 [facility] [id number] [place] [address] 23286- 8246 Mar, [facility] [id number] [place] [address] 40162- 1683 19 Mar, 2017 Left shoulder pain M25.512 [facility] [id number] [place] [address] 63083- 4289 13 Mar, 2017 Vertigo R42 [facility] [id number] [place] [address] 81043- 7506 Mar, Polydipsia R63.1 [facility] [id number] [place] [address] 02395- 2480 Mar, Polydipsia R63.1 [facility] [address] 36673- 2517 11 Mar, 2017 Vertigo R42 [facility] [address] 32031- 3363 07 Mar, 2017 Type 2 diabetes mellitus with unspecified complications E11.8 ; Vertigo R42 ; Polydipsia R63.1 ; Polyuria R35.8 ; Hypothyroidism ( acquired) E03.9 ; Abnormal urinalysis R82.90 and Dysthymia F34.1 [facility] [address] 14245- 4548 05 Mar, 2017 Coronary artery disease of nuiqsut artery with stable angina pectoris, unspecified whether nuiqsut or transplanted heart I25.118 ; Systolic CHF, chronic I50.22 ; Hyperlipemia, mixed E78.2 and Essential hypertension I10 [facility] [address] [id number] Feb, Dental caries K02.9 [facility] [address] 95284- 3035 Feb, Type 2 diabetes mellitus with diabetic neuropathy, unspecified E11.40 [facility] [address] 86537- 5389 23 Dec, 2016 Left shoulder pain M25.512 [facility] [address] 08530- 5221 16 Dec, 2016 [facility] [address] 34451- 3094 Dec, Type 2 diabetes mellitus with unspecified complications E11.8 [facility] [address] [id number] Dec, Dental examination Z01.20 [facility] [address] 69990- 0851 08 Dec, 2016 Type 2 diabetes mellitus with diabetic neuropathy, unspecified E11.40 [facility] [address] 87579- 0917 Dec, [facility] [address] [place] [address] 39024- 4680 Dec, Type 2 diabetes mellitus with diabetic neuropathy, unspecified E11.40 [facility] [id number] [place] [address] 645316- 9986 November, Left shoulder pain M25.512 [facility] [id number] [place] [address] 89522- 0221 November, [facility] [id number] [place] [address] 648897- 2535 November, Type 2 diabetes mellitus with unspecified complications E11.8 and Dysuria R30.0 [facility] [id number] [place] [address] 65457- 5757 Oct, Left shoulder pain M25.512 [facility] [id number] [place] [address] 50704- 3377 Sep, Left shoulder pain M25.512 [facility] [id number] [place] [address] 16464- 9815 Sep, Pre-op testing Z01.818 [facility] [id number] [place] [address] 27572- 6739 Sep, Pre-op testing Z01.818 [facility] [id number] [place] [address] 75662- 4220 Sep, Pre-op testing Z01.818 [facility] [id number] [place] [address] 26220 2547 Sep, Pre-op testing Z01.818 and Mouth pain K13.79 [facility] [id number] [place] [address] 903360- 2129 Sep, Left shoulder pain M25.512 [facility] [id number] [place] [address] 08483- 9705 Aug, Other eczema L30.8 [facility] [id number] [place] [address] 01308- 6446 06 Aug, 2016 PVD (peripheral vascular disease) I73.9 ; Type 2 diabetes mellitus with unspecified complications E11.8 ; Acute cystitis with hematuria N30.01 ; Other eczema L30.8 ; Dysuria R30.0 and Left shoulder pain M25.512 [facility] [address] 35153 -1477 Jul, Otalgia of right ear H92.01 and Blood in ear canal, right H92.21 [facility] [address] 74597- 2884 Jul, Arthralgia, unspecified joint M25.50 ; PVD (peripheral vascular disease) I73.9 and Neuropathy G62.9 [facility] [address] 31345- 7767 Jul, [facility] [address] 25816- 3948 Jun, Medicare annual wellness visit, initial Z00.00 ; Cervicalgia M54.2 ; Radiculopathy of cervical region M54.12 ; Encounter for immunization Z23 ; Type 2 diabetes mellitus with unspecified complications E11.8 and Essential hypertension I10 [facility] [id number] [place] [address] 29991- 6245 Jun, [facility] [address] 78846- 8934 14 May, 2016 Hypothyroidism (acquired) E03.9 [facility] [address] 35891- 9522 10 May, 2016 Dysuria R30.0 ; Essential hypertension I10 ; Hypothyroidism (acquired) E03.9 and PVD (peripheral vascular disease) I73.9 [facility] [id number] [place] [address] 94418 -7184 03 May, 2016 Burning with urination R30.0 and Acute cystitis with hematuria N30.01 [facility] [address] [address]- 1430 May, Dental examination Z01.20 [facility] [id number] [place] [address] 58773- 1871 May, Hypothyroidism (acquired) E03.9 [facility] [id number] [place] [address] 50338 2548 Feb, [facility] [id number] [place] [address] 86141- 2540 Feb, 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 ; PVD ( peripheral vascular disease) I73.9 ; Type 2 diabetes mellitus with unspecified complications E11.8 and Essential hypertension I10 [facility] [id number] [place] [address] 81132- 7274 Jan, [facility] [id number] [place] [address] 05211- 9407 Jan, Hypothyroidism (acquired) E03.9 [facility] [id number] [place] [address] 83091- 8722 Jan, [facility] [id number] [place] [address] 50846- 4681 Jan, [facility] [address] [address]- 2547 Jan, Type 2 diabetes mellitus with unspecified complications E11.8 ; 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 and Essential ( primary) hypertension I10 [facility] [address] [place] [address] 48990 2541 Jan, Type 2 diabetes mellitus with unspecified complications E11.8 ; 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 ; Essential hypertension I10 and PVD (peripheral vascular disease) I73.9 [facility] [address] [address]- 2549 Jan, [facility] [id number] [place] [address] 32025- 6205 Jan, [facility] [id number] [place] [address] 99579- 3575 Jan, [facility] [id number] [place] [address] 54908- 7208 Jan, Weakness R53.1 ; Fatigue, unspecified type R53.83 ; PVD ( peripheral vascular disease) I73.9 ; Acute osteomyelitis of other site M86.18 ; Type 2 diabetes mellitus with diabetic neuropathy, unspecified E11.40 and retirement 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.4 [facility] [address] [place] [address] 08095- 5988 Dec, [facility] [id number] [place] [address] 71168- 1161 Dec, Type 2 diabetes mellitus with unspecified complications E11.8 [facility] [id number] [place] [address] 88733- 0380 Dec, [facility] [id number] [place] [address] 07206- 8262 Dec, Pressure ulcer, unspecified pressure ulcer stage L89.90 and Type 2 diabetes mellitus with unspecified complications E11.8 [facility] [address] [place] [address] 28540 -7627 Dec, Toe infection L08.9 [facility] [id number] [place] [address] 74996- 7459 November, Dental caries K02.9 [facility] [id number] [place] [address] 06014- 1093 November, [facility] [id number] [place] [address] 98427- 3316 November, Dental examination Z01.20 [facility] [id number] [place] [address] 04589- 0888 Sep, Lipoma of torso D17.1 and Thoracic neuritis M54.14 [facility] [id number] [place] [address] 05817- 2233 Sep, [facility] [id number] [place] [address] 55364- 7817 Aug, [facility] [id number] [place] [address] 32904 -0892 Jul, Dysuria R30.0 and UTI (urinary tract infection) N39.0 [facility] [id number] [place] [address] 97079- 3409 Jun, Left shoulder pain M25.512 [facility] [address] 45983- 5011 May, Shoulder pain, left M25.512 [facility] [id number] [place] [address] 15479- 7672 May, [facility] [id number] [place] [address] 46772- 5321 May, [facility] [id number] [place] [address] 47298- 2913 May, Left shoulder pain M25.512 [facility] [id number] [place] [address] 12009- 6485 May, [facility] [id number] [place] [address] 18262- 6347 Apr, Encounter for immunization Z23 [facility] [id number] [place] [address] 63140- 7609 Apr, Urinary tract infection, site not specified N39.0 ; Hypotension, unspecified I95.9 ; Type 2 diabetes mellitus with unspecified complications E11.8 and Generalized edema R60.1 [facility] [id number] [place] [address] 69080- 2122 Apr, [facility] [address] 46380- 5925 Mar, Diabetes with other specified manifestations, type II or unspecified type, not stated as uncontrolled 250.80 [facility] [id number] [place] [address] 23842- 5961 Feb, Gout 274.9 and Diabetes 250.00 [facility] [id number] [place] [address] 10487- 8706 Jan, [facility] [id number] [place] [address] 01773- 3434 November, CAD (coronary artery disease) 414.00 and CHF (congestive heart failure) 428.0 [facility] [id number] [place] [address] 81358- 5969 Oct, [facility] [id number] [place] [address] 476514- 4708 Oct, [facility] [id number] [place] [address] 09461- 4983 Oct, [facility] [id number] [place] [address] 297963- 2462 Sep, [facility] [id number] [place] [address] 58443- 5152 Sep, [facility] [id number] [place] [address] 16410506- 0063 Sep, [facility] [id number] [place] [address] [id number]- 2825 Sep, [facility] [address] [place] [address] 817874- 5612 Aug, [facility] [id number] [place] [address] 941511- 2702 Aug, [facility] [id number] [place] [address] 21577- 1666 Aug, [facility] [id number] [place] [address] 66207- 0379 Aug, [facility] [place] [facility] [address] [id number] [place] [address]- 5573 Aug, [facility] [place] [facility] [address] [id number] [place] [address]- 2599 Aug, [facility] [place] [facility] [address] [id number] [place] [address]- 0764 Aug, [facility] [place] [facility] [address] [id number] [place] [address]- 2491 Aug, [facility] [place] [facility] [address] [id number] [place] [address]- 7470 Jul, [facility] [place] [facility] [address] [id number] [place] [address]- 4866 Jul, [facility] [place] [facility] [address] [id number] [place] [address]- 0708 Jul, [facility] [place] [facility] [address] [id number] [place] [address]- 5065 Jul, [facility] [place] [facility] [address] [id number] [place] [address]- 6175 Jul, [facility] [place] [facility] [address] [facility] [id number] [place] [address]- 1024 Jul, [facility] [place] [facility] [address] [id number] [place] [address]- 3364 Jul, [facility] [place] [facility] [address] [id number] [address]- 8741 Jul, [facility] [place] [facility] [address] [id number], [place] [address]- 0613 Jul, [facility] [place] [facility] [address] [id number], [place] [address]- 7333 Jul, [facility] [place] [facility] [address] [id number], [place] [address]- 6860 Jun, [facility] [place] [facility] [address] [id number] [place] [address]- 6123 Jun, [facility] [place] [facility] [address] [id number] [place] [address]- 2862 Jun, [facility] [place] [facility] [address] [id number] [place] 7433 Jun, [facility] [place] [facility] [address] [id number] [place] [address] Jun, [facility] [place] [facility] [address] [id number] [place] [address] Jun, [facility] [place] [facility] [address] [id number] [place] [address] Jun, [facility] [place] [facility] [address] [id number] [place] [address] Jun, [facility] [place] [facility] [address] [id number] [place] [address] Jun, [facility] [place] [facility] [address] [id number] [place] [address] Jun, [facility] [place] [facility] [address] [id number] [place] [address] May, [facility] [place] [facility] [address] [id number] [place] [address] 14 May, 2014 [facility] [place] [facility] [address] [id number] [place] [address] 18 Mar, 2014 [facility] [place] [facility] [address] [id number] [place] [address] 18 Mar, 2014 [facility] [place] [facility] [address] [id number] [place] [address] 10 Mar, 2014 [facility] [place] [facility] [address] [id number] [place] [address] 10 Mar, 2014 [facility] [place] [facility] [address] [id number] [place] [address] Feb, [facility] [place] [facility] [address] [id number] [place] [address] Feb, [facility] [place] [facility] [address] [id number] [place] [address] Feb, [facility] [place] [facility] [address] [id number] [place] [address] Jan, [facility] [place] [facility] [address] [id number] [place] [address] Jan, [facility] [place] [facility] [address] [id number] [place] [address]- 2873 Jan, [facility] [place] [facility] [address] [id number] [place] [address] Jan, [facility] [place] [facility] [address] [id number] [place] [address] 29[address] Jan, [facility] [place] [facility] [address] [id number] [place] [address] 2271 Jan, [facility] [place] [facility] [address] [id number] [place] [address]- 2[address] Jan, [facility] [place] [facility] [address] [id number] [place] [address] 9658 Jan, [facility] [place] [facility] [address] [id number] [place] [address]- 75[address] Jan, [facility] [place] [facility] [address] [id number] [place] [address]- 6753 Jan, [facility] [place] [facility] [address] [id number] [place] [address]- 1464 Dec, [facility] [place] [facility] [address] [id number] [place] [address]- 1567 Dec, [facility] [place] [facility] [address] [id number] [place] [address]- 4615 November, [facility] [place] [facility] [address] [id number] [place] [address]- 9189 November, [facility] [place] [facility] [address] [id number] [place] [address]- 0000 November, [facility] [place] [facility] [address] [id number] [place] [address]- 6066 November, [facility] [place] [facility] [address] [id number] [place] [address] November, [facility] [place] [facility] [address] [id number] [place] [address]- 5353 November, [facility] [place] [facility] [address] [id number] [place] [address]- 5775 November, [facility] [place] [facility] [address] [id number] [place] [address]- 7111 Oct, [facility] [place] [facility] [address] [id number] [place] [address]- 4621 Oct, [facility] [place] [facility] [address] [id number] [place] [address]- 2330 Sep, [facility] [place] [facility] [address] [id number] [place] [address]- 7546 Sep, [facility] [place] [facility] [address] [id number] [place] [address]- 0048 Sep, [facility] [place] [facility] [address] [id number] [place] [address]- 0021 Sep, [facility] [place] [facility] [address] [id number] [place] [address]- 7531 Sep, [facility] [place] [facility] [address] [id number] [place] [address]- 0131 Sep, [facility] [place] [facility] [address] [id number] [place] [address]- 2914 Sep, [facility] [place] [facility] [address] [id number] [place] [address]- 3341 Sep, [facility] [place] [facility] [address] [id number] [place] [address]- 7285 Sep, [facility] [place] [facility] [address] [id number] [place] [address]- 3832 Sep, [facility] [place] [facility] [address] [id number] [place] [address]- 8503 Aug, [facility] [place] [facility] [address] [id number] [place] [address]- 8576 Aug, [facility] [place] [facility] [address] [id number] [place] [address]- 2888 Jul, [facility] [place] [facility] [address] [id number] [place] [address]- 2081 Jul, [facility] [place] [facility] [address] [id number] [place] [address]- 4740 Jul, [facility] [place] [facility] [address] [id number] [place] [address]- 7250 Jul, [facility] [place] [facility] [address] [id number] [place] [address]- 5863 Jul, [facility] [place] [facility] [address] [id number] [place] [address]- 0324 Jul, [facility] [place] [facility] [address] [id number], [place] [address]- 8317 Jun, [facility] [place] [facility] [address] [id number], [place] [address]- 3069 Jun, [facility] [place] [facility] [address] [id number] [place] [address]- 1908 Jun, [facility] [place] [facility] [address] [id number] [place] [address]- 4222 Jun, [facility] [place] [facility] [address] [id number], [place] [address]- 45[address] May, [facility] [place] [facility] [address] [id number], [place] [address] 14 May, 2013 [facility] [place] [facility] [address] [id number] [place] [address]- 7975 May, [facility] [place] [facility] [address] [id number] [place] [address]- 6015 11 May, 2013 [facility] [place] [facility] [address] [id number] [place] [address]- 3091 May, [facility] [place] [facility] [address] [id number] [place] [address]- 2247 31 Apr, 2013 [facility] [place] [facility] [address] [id number] [place] [address]- 0162 31 Apr, 2013 [facility] [place] [facility] [address] [id number] [place] [address]- 1610 Apr, [facility] [place] [facility] [address] [id number] [place] [address]- 9138 Apr, [facility] [place] [facility] [address] [id number] [place] [address]- 7538 Apr, [facility] [place] [facility] [address] [id number] [place] [address]- 6027 Apr, [facility] [place] [facility] [address] [id number] [place] [address]- 7881 Apr, [facility] [place] [facility] [address] [id number], [place] [address]- 8185 Apr, [facility] [place] [facility] [address] [id number], [place] [address]- 6746 Apr, [facility] [place] [facility] [address] [id number] [place] [address]- 2721 Apr, [facility] [place] [facility] [address] [id number] [place] [address]- 1241 Apr, [facility] [place] [facility] [address] [id number] [place] [address]- 4133 Apr, [facility] [place] [facility] [address] [id number] [place] [address]- 3678 Mar, [facility] [place] [facility] [address] [id number] [place] [address]- 5737 Mar, [facility] [place] [facility] [address] [id number] [place] [address]- 2546 Feb, [facility] [place] [facility] [address] [id number] [place] [address]- 8781 Jan, [facility] [place] [facility] [address] [id number] [place] [address]- 4181 Jan, [facility] [place] [facility] [address] [id number] [place] [address]- 6374 Jan, [facility] [place] [facility] [address] [id number] [place] [address]- 1093 Jan, [facility] [place] [facility] [address] [id number] [place] [address]- 3823 Dec, [facility] [place] [facility] [address] [id number] [place] [address]- 2072 Dec, [facility] [place] [facility] [address] [id number] [place] [address]- 0030 Dec, [facility] [place] [facility] [address] [id number] [place] [address]- 2482 Dec, [facility] [place] [facility] [address] [id number] [place] [address]- 1819 Dec, [facility] [place] [facility] [address] [id number] [place] [address]- 0674 Dec, [facility] [place] [facility] [address] [id number] [place] [address]- 6361 Dec, [facility] [place] [facility] [address] [id number] [place] [address]- 9626 November, [facility] [place] [facility] [address] [id number] [place] [address]- 4726 November, [facility] [address] [id number] [place] [address]- 0283 November, [facility] [place] [facility] [address] [id number] [place] [address]- 2429 Oct, [facility] [place] [facility] [address] [id number] [place] [address]- 8988 Oct, [facility] [place] [facility] [address] [id number] [place] [address]- 9795 Oct, [facility] [place] [facility] [address] [id number] [place] [address]- 9129 Oct, [facility] [place] [facility] [address] [id number] [place] [address]- 8734 Oct, [facility] [place] [facility] [address] [id number] [place] [address]- 5290 Sep, [facility] [place] [facility] [address] [id number] [place] [address]- 6750 Sep, [facility] [place] [facility] [address] [id number] [place] [address]- 2339 Sep, [facility] [place] [facility] [address] [id number] [place] [address]- 0297 Sep, [facility] [place] [facility] [address] [id number] [place] [address]- 8790 Aug, [facility] [place] [facility] [address] [id number], [place] [address]- 7273 Aug, [facility] [place] [facility] [address] [id number] [place] [address]- 1293 Aug, [facility] [place] [facility] [address] [id number] [place] [address]- 6006 Aug, [facility] [place] [facility] [address] [id number] [place] [address]- 7522 Jul, [facility] [place] [facility] [address] [id number] [place] [address]- 3329 Jul, [facility] [address] [id number] [place] [address]- 2628 Jun, [facility] [place] [facility] [address] [id number] [place] [address]- 3326 Jun, [facility] [address] [id number] [place] [address]- 2974 Jun, [facility] [place] [facility] [address] [id number] [place] [address]- 8313 Jun, [facility] [address] [id number] [place] [address], [place] [address] 3912 May, [facility] [place] [facility] [address] [id number] [place] [address]- 0614 May, [facility] [place] [facility] [address] [facility] [id number] [place] [address]- 0550 May, [facility] [place] [facility] [address] [facility] [id number] [place] [address]- 0549 May, [facility] [place] [facility] [address] [facility] [id number] [place] [address]- 8034 Apr, [facility] [place] [facility] [address] [facility] [id number] [place] [address]- 8859 Apr, [facility] [place] [facility] [address] [facility] [id number] [place] [address]- 2211 31 Apr, 2012 [facility] [place] [facility] [address] [facility] [id number] [place] [address]- 9318 31 Apr, 2012 [facility] [place] [facility] [address] [facility] [id number] [place] [address]- 8619 30 Apr, 2012 [facility] [place] [facility] [address] [facility] [id number] [place] [address]- 9883 30 Apr, 2012 [facility] [place] [facility] [address] [facility] [id number] [place] [address]- 6991 Apr, [facility] [place] [facility] [address] [id number] [place] [address]- 0077 Apr, [facility] [place] [facility] [address] [id number] [place] [address]- 9579 Apr, [facility] [place] [facility] [address] [id number] [place] [address]- 1966 Apr, [facility] [place] [facility] [address] [id number] [place] [address]- 0242 Feb, [facility] [place] [facility] [address] [id number] [place] [address]- 0619 Feb, [facility] [place] [facility] [address] [id number] [place] [address]- 9238 Jan, [facility] [place] [facility] [address] [id number] [place] [address]- 3624 Jan, [facility] [place] [facility] [address] [id number] [place] [address]- 7935 Jan, [facility] [place] [facility] [address] [id number] [place] [address]- 4493 Jan, [facility] [place] [facility] [address] [id number] [place] [address]- 3547 Jan, [facility] [place] [facility] [address] [id number] [place] [address]- 2249 Jan, [facility] [place] [facility] [address] [id number], [place] [address]- 3973 Dec, [facility] [place] [facility] [address] [id number] [place] [address]- 7864 November, [facility] [place] [facility] [address] [id number] [place] [address]- 5186 November, [facility] [place] [facility] [address] [id number] [place] [address]- 1658 November, [facility] [place] [facility] [address] [id number] [place] [address]- 2336 Sep, [facility] [address] [id number] [place] [address]- 0496 Sep, [facility] [place] [facility] [address] [id number] [place] [address]- 9226 Sep, [facility] [place] [facility] [address] [id number] [place] [address]- 8776 Sep, [facility] [place] [facility] [address] [id number] [place] [address]- 2743 Sep, [facility] [place] [facility] [address] [id number] [place] [address]- 7898 Sep, [facility] [place] [facility] [address] [id number] [place] [address]- 7176 13 Aug, 2011 [facility] [place] [facility] [address] [id number] [place] [address]- 5082 Aug, [facility] [place] [facility] [address] [id number] [place] [address]- 5612 Aug, [facility] [place] [facility] [address] [id number] [place] [address]- 5469 Jul, [facility] [place] [facility] [address] [facility] [id number] [place] [address]- 3324 Jul, [facility] [place] [facility] [address] [id number] [place] [address]- 2751 Jul, [facility] [place] [facility] [address] [id number] [place] [address] 2546 Jul, [facility] [place] [facility] [address] [id number] [place] [address]- 2888 Jun, [facility] [place] [facility] [address] [id number] [place] [address] 2546 Jun, [facility] [place] [facility] [address] [facility] [id number] [place] [address]- 4366 Jun, [facility] [place] [facility] [address] [id number] [place] [address]- 6352 06 Jun, 2011 [facility] [place] [facility] [address] [id number] [place] [address]- 9516 Jun, [facility] [place] [facility] [address] [id number] [place] [address] 2546 Jun, [facility] [place] [facility] [address] [id number] [place] [address]- 8766 May, [facility] [place] [facility] [address] [id number] [place] [address] 2547 May, [facility] [place] [facility] [address] [id number] [place] [address]- 5440 May, [facility] [place] [facility] [address] [id number] [place] [address]- 7666 Apr, [facility] [place] [facility] [address] [id number] [place] [address]- 2055 Jan, [facility] [place] [facility] [address] [id number] [place] [address]- 3419 Jun, [facility] [place] [facility] [address] [id number] [place] [address]- 8041 20 Jun, 2010 [facility] [place] [facility] [address] [id number] [place] [address]- 6088 15 Jun, 2010 [facility] [place] [facility] [address] [id number] [place] [address]- 2546 15 Jun, 2010 [facility] [place] [facility] [address] [id number] [place] [address] 2545 15 Jun, 2010 [facility] [place] [facility] [address] [id number] [place] [address] 2546 13 Jun, 2010 [facility] [place] [facility] [address] [id number] [place] [address] 2541 13 Jun, 2010 [facility] [place] [facility] [address] [id number] [place] [address]- 5453 Apr, [facility] [address] [id number] [place] [address]- 5866 Feb, [facility] [place] [facility] [address] [id number] [place] [address]- 2156 15 Aug, 2009 [facility] [place] [facility] [address] [facility] [id number] [place] [address] 2546 18 Jul, 2009 [facility] [place] [facility] [address] [id number], [place] [address] 2549 Jul, [facility] [address] [id number] [place] [address]- 5610 29 Jun, 2009 [facility] [place] [facility] [address] [id number] [place] [address]- 9187 Jun, [facility] [place] [facility] [address] [id number] [place] [address]- 0372 Jun, [facility] [place] [facility] [address] [id number], [place] [address]- 4379 22 Jun, 2009 [facility] [address] [id number], [place] [address]- 6204 16 Jun, 2009 [facility] [place] [facility] [address] [facility] [id number], [place] [address]- 4254 Jun, [facility] [place] [facility] [address] [facility] [id number], [place] [address]- 4307 Jun, [facility] [place] [facility] [address] [id number], [place] [address]- 1805 30 May, 2009 [facility] [place] [facility] [address] [id number] [place] [address] 2545 27 May, 2009 [facility] [place] [facility] [address] [facility] [id number], [place] [address]- 2543 23 May, 2009 [facility] [place] [facility] [address] [facility] [id number], [place] [address]- 2542 18 May, 2009 [facility] [place] [facility] [address] [id number], [place] [address]- 2546 May, [facility] [address] [id number], [place] [address] 2546 May, [facility] [address] [id number], [place] [address]- 2546 May, [facility] [address] [id number], [place] [address]- 2546 Apr, [facility] [address] [id number], [place] [address]- 2546 Apr, [facility] [id number], [place] [address]- 2236 Jan, [facility] [address] [id number], [place] [address]- 5356 Oct, IMMUNIZATIONS No Known Immunizations SOCIAL HISTORY Never Assessed REASON FOR VISIT Controlled Med Refill 01/05/18 PLAN OF CARE VITAL SIGNS MEDICATIONS Medication [...]
--- OUTSIDE RECORDS SUMMARY | 2018-11-09 13:03 | XMS REPORT ---
Author Author PRABHA HILL [facility] Address [address] [place] [address] Care Team Providers Care Career Development Facilitator Name Role Phone PRABHA HILL Unavailable PROBLEMS Type Condition ICD9-CM Code MMN55-AB Code Onset Dates Condition Status SNOMED Code Problem Hypoglycemia E16.2 Active 262263048 Problem Hallucinations R44.3 Active 1524783 Problem Unsteady gait R26.81 Active 49722542 Problem 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 Active 707060870819102 Problem Dysuria R30.0 Active 62163900 Problem Anxiety F41.9 Active 88047577 Problem Dementia in other diseases classified elsewhere without behavioral disturbance F02.80 Active 341091130 Problem Other frontotemporal dementia G31.09 Active 902218777 Problem Parkinsons disease G20 Active 68578286 Problem Episodic cluster headache, not intractable G44.019 Active 265133384 Problem Neurogenic orthostatic hypotension G90.3 Active 560663451 Problem Mixed stress and urge urinary incontinence N39.46 Active 064696658 Problem 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 Active 310387869 Problem Essential hypertension I10 Active 79146889 Problem Type 2 diabetes mellitus with unspecified complications E11.8 Active 46389176 Problem PVD (peripheral vascular disease) I73.9 Active 848398987 Problem Dysthymia F34.1 Active 25612213 Problem Polydipsia R63.1 Active 85136250 Problem 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 Active 4918416784138 Problem Hypothyroidism (acquired) E03.9 Active 162027279 Problem Hyperlipemia, mixed E78.2 Active 708389809 Problem Dementia with Lewy bodies G31.83 Active 069374753 Problem Neuropathy G62.9 Active 083368889 Problem Hypernatremia E87.0 Active 58152282 ALLERGIES No Information ENCOUNTERS Encounter Location Date Diagnosis [facility] [id number] [place] [address] 83119- 1797 Feb, [facility] [id number] [place] [address] 78584- 5759 Feb, Left shoulder pain M25.512 [facility] [id number] [place] [address] 12858- 0342 Feb, 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 [facility] [address] 12987- 1072 Jan, Left shoulder pain M25.512 [facility] [id number] [place] [address] 88761- 5499 Dec, Parkinsons disease G20 [facility] [id number] [place] [address] 31933- 7459 Dec, Left shoulder pain M25.512 [facility] [id number] [place] [address] 53738- 5610 Dec, Type 2 diabetes mellitus with unspecified complications E11.8 ; Anxiety F41.9 ; Therapeutic drug monitoring Z51.81 and Analgesic use Z79.899 [facility] [id number] [place] [address] 96984- 7900 November, [facility] [id number] [place] [address] 22311- 5133 November, [facility] [id number] [place] [address] 91303- 7579 November, Left shoulder pain M25.512 [facility] [id number] [place] [address] 34951- 2368 Oct, [facility] [id number] [place] [address] 14684 -6901 Oct, [facility] [id number] [place] [address] 16038- 7184 Oct, Parkinsons disease G20 [facility] [id number] [place] [address] 76872 -0324 18 Oct, 2017 Acute cystitis without hematuria N30.00 and Viral upper respiratory tract infection J06.9 [facility] [id number] [place] [address] 83417- 7706 Oct, [facility] [id number] [place] [address] 74918- 1728 Oct, Type 2 diabetes mellitus with unspecified complications E11.8 [facility] [id number] [place] [address] 74485- 7544 Oct, Left shoulder pain M25.512 [facility] [id number] [place] [address] 92495- 1688 Oct, Type 2 diabetes mellitus with unspecified complications E11.8 ; Dysuria R30.0 and Neurogenic orthostatic hypotension G90.3 [facility] [address] 84209- 6608 Sep, Left shoulder pain M25.512 [facility] [id number] [place] [address] 81824- 6927 Sep, Medicare annual wellness visit, initial Z00.00 [...] Mixed stress and urge urinary incontinence N39.46 [facility] [id number] [place] [address] 42374- 2955 Aug, Parkinsons disease G20 [facility] [id number] [place] [address] 67356- 1654 Aug, Type 2 diabetes mellitus with unspecified complications E11.8 ; Left shoulder pain M25.512 and Hypotensive episode I95.9 [facility] [id number] [place] [address] 57113- 1156 09 Aug, 2017 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 [facility] [id number] [place] [address] 00871- 0846 07 Aug, 2017 Type 2 diabetes mellitus with unspecified complications E11.8 [facility] [id number] [place] [address] 18716- 0626 Jul, Callus of foot L84 [facility] [address] 92823- 3228 Jul, [facility] [id number] [place] [address] 78213- 5131 Jul, Callus of foot L84 ; Episodic cluster headache, not intractable G44.019 ; Type 2 diabetes mellitus with unspecified complications E11.8 and Parkinsons disease G20 [facility] [id number] [place] [address] 16402- 3644 Jul, [facility] [id number] [place] [address] 87429- 2311 Jul, [facility] [id number] [place] [address] 18540- 9745 Jun, Type 2 diabetes mellitus with unspecified complications E11.8 ; Unsteady gait R26.81 ; Forgetfulness R68.89 and Hallucinations R44.3 [facility] [id number] [place] [address] 54653- 4719 Jun, [facility] [id number] [place] [address] 80968- 8654 Jun, Left shoulder pain M25.512 [facility] [id number] [place] [address] 80195- 6985 May, Hypernatremia E87.0 and Polydipsia R63.1 [address] [id number] [place] [address] 36372- 5060 08 May, 2017 Hypernatremia E87.0 and Polydipsia R63.1 [facility] [id number] [place] [address] 82769- 9874 May, Hypoglycemia E16.2 ; Dysuria R30.0 ; Unsteadiness on feet R26.81 ; Forgetfulness R68.89 ; Type 2 diabetes mellitus with unspecified complications E11.8 and Yeast infection involving the vagina and surrounding area B37.3 [facility] [id number] [place] [address] 91459- 6057 May, Acute cystitis without hematuria N30.00 [facility] [id number] [place] [address] 44223 -0937 Apr, Dysuria R30.0 and Acute cystitis without hematuria N30.00 [facility] [address] 00637- 3693 Apr, Hypernatremia E87.0 and Polydipsia R63.1 [facility] [id number] [place] [address] 58884- 4385 Apr, Vertigo R42 and Type 2 diabetes mellitus with unspecified complications E11.8 [facility] [id number] [place] [address] 29455- 2122 Mar, [facility] [id number] [place] [address] 95808- 4564 19 Mar, 2017 Left shoulder pain M25.512 [facility] [id number] [place] [address] 21463- 3378 13 Mar, 2017 Vertigo R42 [facility] [id number] [place] [address] 01082- 9172 Mar, Polydipsia R63.1 [facility] [id number] [place] [address] 33175- 1474 Mar, Polydipsia R63.1 [facility] [address] 93829- 2545 11 Mar, 2017 Vertigo R42 [facility] [facility] [address] 18568- 6618 07 Mar, 2017 Type 2 diabetes mellitus with unspecified complications E11.8 ; Vertigo R42 ; Polydipsia R63.1 ; Polyuria R35.8 ; Hypothyroidism ( acquired) E03.9 ; Abnormal urinalysis R82.90 and Dysthymia F34.1 [facility] [address] 47716- 4801 05 Mar, 2017 Coronary artery disease of cabazon artery with stable angina pectoris, unspecified whether cabazon or transplanted heart I25.118 ; Systolic CHF, chronic I50.22 ; Hyperlipemia, mixed E78.2 and Essential hypertension I10 [facility] [address] [id number] Feb, Dental caries K02.9 [place] [facility] [address] 03822- 2318 Feb, Type 2 diabetes mellitus with diabetic neuropathy, unspecified E11.40 [facility] [address] 88340- 3072 23 Dec, 2016 Left shoulder pain M25.512 [facility] [address] 49886- 5672 16 Dec, 2016 [place] [facility] [address] 64774- 8746 Dec, Type 2 diabetes mellitus with unspecified complications E11.8 [facility] [address] [id number] Dec, Dental examination Z01.20 [facility] [address] 85028- 3881 08 Dec, 2016 Type 2 diabetes mellitus with diabetic neuropathy, unspecified E11.40 [facility] [address] 29301- 8479 Dec, [facility] [address] [place] [address] 10895- 3331 Dec, Type 2 diabetes mellitus with diabetic neuropathy, unspecified E11.40 [facility] [id number] [place] [address] 451524- 9816 November, Left shoulder pain M25.512 [facility] [id number] [place] [address] 94859- 7002 November, [facility] [id number] [place] [address] 201911- 9680 November, Type 2 diabetes mellitus with unspecified complications E11.8 and Dysuria R30.0 [facility] [id number] [place] [address] 50151- 8923 Oct, Left shoulder pain M25.512 [facility] [id number] [place] [address] 52646- 5525 Sep, Left shoulder pain M25.512 [facility] [id number] [place] [address] 92884- 3764 Sep, Pre-op testing Z01.818 [facility] [id number] [place] [address] 16517- 5181 Sep, Pre-op testing Z01.818 [facility] [id number] [place] [address] 94834- 2548 Sep, Pre-op testing Z01.818 [facility] [id number] [place] [address] 84175 2549 Sep, Pre-op testing Z01.818 and Mouth pain K13.79 [facility] [id number] [place] [address] 131858- 7278 Sep, Left shoulder pain M25.512 [facility] [id number] [place] [address] 55430- 3454 Aug, Other eczema L30.8 [facility] [id number] [place] [address] 61465- 1202 06 Aug, 2016 PVD (peripheral vascular disease) I73.9 ; Type 2 diabetes mellitus with unspecified complications E11.8 ; Acute cystitis with hematuria N30.01 ; Other eczema L30.8 ; Dysuria R30.0 and Left shoulder pain M25.512 [facility] [address] 79598 -9816 Jul, Otalgia of right ear H92.01 and Blood in ear canal, right H92.21 [place] [facility] [address] 49156- 4339 Jul, Arthralgia, unspecified joint M25.50 ; PVD (peripheral vascular disease) I73.9 and Neuropathy G62.9 [facility] [facility] [address] 60125- 6833 Jul, [facility] [address] 98364- 5255 Jun, Medicare annual wellness visit, initial Z00.00 ; Cervicalgia M54.2 ; Radiculopathy of cervical region M54.12 ; Encounter for immunization Z23 ; Type 2 diabetes mellitus with unspecified complications E11.8 and Essential hypertension I10 [facility] [id number] [place] [address] 52181- 8877 Jun, [facility] [address] 21998- 3839 14 May, 2016 Hypothyroidism (acquired) E03.9 [place] [facility] [address] 58851- 6233 10 May, 2016 Dysuria R30.0 ; Essential hypertension I10 ; Hypothyroidism (acquired) E03.9 and PVD (peripheral vascular disease) I73.9 [facility] [id number] [place] [address] 00259 -3219 03 May, 2016 Burning with urination R30.0 and Acute cystitis with hematuria N30.01 [place] [address] [address]- 9142 May, Dental examination Z01.20 [facility] [id number] [place] [address] 83410- 2578 May, Hypothyroidism (acquired) E03.9 [facility] [id number] [place] [address] 63069 2543 Feb, [facility] [id number] [place] [address] 89152- 2540 Feb, 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 ; PVD ( peripheral vascular disease) I73.9 ; Type 2 diabetes mellitus with unspecified complications E11.8 and Essential hypertension I10 [facility] [id number] [place] [address] 56620- 6183 Jan, [facility] [id number] [place] [address] 36483- 6281 Jan, Hypothyroidism (acquired) E03.9 [facility] [id number] [place] [address] 21693- 1006 Jan, [facility] [id number] [place] [address] 13326- 4719 Jan, [facility] [address] [address]- 2543 Jan, Type 2 diabetes mellitus with unspecified complications E11.8 ; 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 and Essential ( primary) hypertension I10 [place] [address] [place] [address] 35997 2549 Jan, Type 2 diabetes mellitus with unspecified complications E11.8 ; 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 ; Essential hypertension I10 and PVD (peripheral vascular disease) I73.9 [facility] [facility] [address] [address]- 2540 Jan, [facility] [id number] [place] [address] 45883- 4872 Jan, [facility] [id number] [place] [address] 10824- 9089 Jan, [facility] [id number] [place] [address] 20389- 3227 Jan, Weakness R53.1 ; Fatigue, unspecified type R53.83 ; PVD ( peripheral vascular disease) I73.9 ; Acute osteomyelitis of other site M86.18 ; Type 2 diabetes mellitus with diabetic neuropathy, unspecified E11.40 and residential 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.4 [facility] [id number] [place] [address] 74918- 3758 Dec, [facility] [id number] [place] [address] 37092- 9024 Dec, Type 2 diabetes mellitus with unspecified complications E11.8 [facility] [id number] [place] [address] 81289- 1476 Dec, [facility] [id number] [place] [address] 08423- 3279 Dec, Pressure ulcer, unspecified pressure ulcer stage L89.90 and Type 2 diabetes mellitus with unspecified complications E11.8 [facility] [address] [place] [address] 81114 -9649 Dec, Toe infection L08.9 [facility] [id number] [place] [address] 23912- 1753 November, Dental caries K02.9 [facility] [id number] [place] [address] 59241- 5526 November, [facility] [id number] [place] [address] 82234- 6394 November, Dental examination Z01.20 [facility] [id number] [place] [address] 24184- 8206 Sep, Lipoma of torso D17.1 and Thoracic neuritis M54.14 [facility] [id number] [place] [address] 01958- 8984 Sep, [facility] [id number] [place] [address] 60580- 4772 Aug, [facility] [id number] [place] [address] 34402 -0800 Jul, Dysuria R30.0 and UTI (urinary tract infection) N39.0 [facility] [id number] [place] [address] 12813- 4206 Jun, Left shoulder pain M25.512 [place] [address] 36257- 2940 May, Shoulder pain, left M25.512 [facility] [id number] [place] [address] 29373- 2415 May, [facility] [id number] [place] [address] 43253- 7235 May, [facility] [id number] [place] [address] 43626- 7573 May, Left shoulder pain M25.512 [facility] [id number] [place] [address] 77898- 7068 May, [facility] [id number] [place] [address] 55765- 3774 Apr, Encounter for immunization Z23 [facility] [id number] [place] [address] 83810- 5719 Apr, Urinary tract infection, site not specified N39.0 ; Hypotension, unspecified I95.9 ; Type 2 diabetes mellitus with unspecified complications E11.8 and Generalized edema R60.1 [facility] [id number] [place] [address] 65602- 9029 Apr, [facility] [address] 12955- 4598 Mar, Diabetes with other specified manifestations, type II or unspecified type, not stated as uncontrolled 250.80 [facility] [id number] [place] [address] 21619- 6647 Feb, Gout 274.9 and Diabetes 250.00 [facility] [id number] [place] [address] 45176- 9898 Jan, [facility] [id number] [place] [address] 13009- 2353 November, CAD (coronary artery disease) 414.00 and CHF (congestive heart failure) 428.0 [facility] [id number] [place] [address] 99118- 8277 Oct, [facility] [id number] [place] [address] 692533- 3580 Oct, [facility] [id number] [place] [address] 67717- 6342 Oct, [facility] [id number] [place] [address] 069710- 1024 Sep, [facility] [id number] [place] [address] 43955- 4150 Sep, [facility] [id number] [place] [address] [id number]- 0717 Sep, [facility] [id number] [place] [address] [id number]- 6035 Sep, [facility] [address] [place] [address] 394285- 6914 Aug, [facility] [id number] [place] [address] 459063- 1958 Aug, [facility] [id number] [place] [address] 24157- 4626 Aug, [facility] [id number] [place] [address] 67043- 8972 Aug, [facility] [place] [facility] [address] [id number] [place] [address]- 0697 Aug, [facility] [place] [facility] [address] [id number] [place] [address]- 9923 Aug, [facility] [place] [facility] [address] [id number] [place] [address]- 4964 Aug, [facility] [place] [facility] [address] [id number] [place] [address]- 8820 Aug, [facility] [place] [facility] [address] [id number] [place] [address]- 6311 Jul, [facility] [place] [facility] [address] [id number] [place] [address]- 1786 Jul, [facility] [place] [facility] [address] [id number] [place] [address]- 8843 Jul, [facility] [place] [facility] [address] [id number] [place] [address]- 3593 Jul, [facility] [place] [facility] [address] [id number] [place] [address]- 3391 Jul, [facility] [place] [facility] [address] [facility] [id number] [place] [address]- 6915 Jul, [facility] [place] [facility] [address] [id number] [place] [address]- 9719 Jul, [facility] [place] [facility] [address] [id number], [place] [address]- 5224 Jul, [facility] [place] [facility] [address] [id number], [place] [address]- 4028 Jul, [facility] [place] [facility] [address] [id number], [place] [address]- 9028 Jul, [facility] [place] [facility] [address] [id number], [place] [address]- 8481 Jun, [facility] [place] [facility] [address] [id number] [place] [address]- 8423 Jun, [facility] [place] [facility] [address] [id number] [place] [address]- 0477 Jun, [facility] [place] [facility] [address] [id number] [place] 2364 Jun, [facility] [place] [facility] [address] [id number] [place] [address]- 3089 Jun, [facility] [place] [facility] [address] [id number] [place] [address]- 4793 Jun, [facility] [place] [facility] [address] [id number] [place] [address]- 6290 Jun, [facility] [place] [facility] [address] [id number] [place] [address]- 9004 Jun, [facility] [place] [facility] [address] [id number] [place] [address]- 7788 Jun, [facility] [place] [facility] [address] [id number] [place] [address]- 9649 Jun, [facility] [place] [facility] [address] [id number] [place] [address]- 2956 May, [facility] [place] [facility] [address] [id number] [place] [address]- 5102 14 May, 2014 [facility] [place] [facility] [address] [id number] [place] [address]- 5014 18 Mar, 2014 [facility] [place] [facility] [address] [id number] [place] [address]- 1940 18 Mar, 2014 [facility] [place] [facility] [address] [id number] [place] [address]- 0708 10 Mar, 2014 [facility] [place] [facility] [address] [id number] [place] [address]- 2997 10 Mar, 2014 [facility] [place] [facility] [address] [id number] [place] [address]- 4556 Feb, [facility] [place] [facility] [address] [id number] [place] [address]- 5929 Feb, [facility] [place] [facility] [address] [id number] [place] [address] Feb, [facility] [place] [facility] [address] [id number] [place] [address] Jan, [facility] [place] [facility] [address] [id number] [place] [address] Jan, [facility] [place] [facility] [address] [id number] [place] [address] Jan, [facility] [place] [facility] [address] [id number] [place] [address] Jan, [facility] [place] [facility] [address] [id number] [place] [address] Jan, [facility] [place] [facility] [address] [id number] [place] [address] Jan, [facility] [place] [facility] [address] [id number] [place] [address] Jan, [facility] [place] [facility] [address] [id number] [place] [address] Jan, [facility] [place] [facility] [address] [id number] [place] [address] Jan, [facility] [place] [facility] [address] [id number] [place] [address] Jan, [facility] [place] [facility] [address] [id number] [place] [address] Dec, [facility] [place] [facility] [address] [id number] [place] [address] Dec, [facility] [place] [facility] [address] [id number] [place] [address] November, [facility] [place] [facility] [address] [id number] [place] [address] November, [facility] [place] [facility] [address] [id number] [place] [address] November, [facility] [place] [facility] [address] [id number] [place] [address] November, [facility] [place] [facility] [address] [id number] [place] November, [facility] [place] [facility] [address] [id number] [place] [address] November, [facility] [place] [facility] [address] [id number] [place] [address] November, [facility] [place] [facility] [address] [id number] [place] [address] Oct, [facility] [place] [facility] [address] [id number] [place] [address] Oct, [facility] [place] [facility] [address] [id number] [place] [address] Sep, [facility] [place] [facility] [address] [id number] [place] [address] Sep, [facility] [place] [facility] [address] [id number] [place] [address] Sep, [facility] [place] [facility] [address] [id number] [place] [address] 1331 Sep, [facility] [place] [facility] [address] [id number] [place] [address] 3769 Sep, [facility] [place] [facility] [address] [id number] [place] [address] 9[address] Sep, [facility] [place] [facility] [address] [id number] [place] [address] Sep, [facility] [place] [facility] [address] [id number] [place] [address] 99[address] Sep, [facility] [place] [facility] [address] [id number] [place] [address] 6[address] Sep, [facility] [place] [facility] [address] [id number] [place] [address] 7[address] Sep, [facility] [place] [facility] [address] [id number] [place] [address]- 0547 Aug, [facility] [place] [facility] [address] [id number] [place] [address] 7209 Aug, [facility] [place] [facility] [address] [id number] [place] [address] 8182 Jul, [facility] [place] [facility] [address] [id number] [place] [address]- 4466 Jul, [facility] [place] [facility] [address] [id number] [place] [address]- 1021 Jul, [facility] [place] [facility] [address] [id number] [place] [address]- 8638 Jul, [facility] [place] [facility] [address] [id number] [place] [address]- 5675 Jul, [facility] [place] [facility] [address] [id number] [place] [address]- 2098 Jul, [facility] [place] [facility] [address] [id number], [place] [address] Jun, [facility] [place] [facility] [address] [id number], [place] [address] Jun, [facility] [place] [facility] [address] [id number] [place] [address]- 0[address] Jun, [facility] [place] [facility] [address] [id number] [place] [address]- 8521 Jun, [facility] [place] [facility] [address] [id number], [place] [address] May, [facility] [place] [facility] [address] [id number], [place] [address] 14 May, 2013 [facility] [place] [facility] [address] [id number] [place] [address]- 3835 May, [facility] [place] [facility] [address] [id number] [place] [address]- 0485 11 May, 2013 [facility] [place] [facility] [address] [id number] [place] [address]- 2110 May, [facility] [place] [facility] [address] [id number] [place] [address]- 5040 31 Apr, 2013 [facility] [place] [facility] [address] [id number] [place] [address]- 7973 31 Apr, 2013 [facility] [place] [facility] [address] [id number] [place] [address]- 2625 Apr, [facility] [place] [facility] [address] [id number] [place] [address]- 5[address] Apr, [facility] [place] [facility] [address] [id number] [place] [address]- 4540 Apr, [facility] [place] [facility] [address] [id number] [place] [address]- 5270 Apr, [facility] [place] [facility] [address] [id number] [place] [address]- 6340 Apr, [facility] [place] [facility] [address] [id number], [place] [address] 6[address] Apr, [facility] [place] [facility] [address] [id number], [place] [address]65 Apr, [facility] [place] [facility] [address] [id number] [place] [address]- 0666 Apr, [facility] [place] [facility] [address] [id number] [place] [address]- 0624 Apr, [facility] [place] [facility] [address] [id number] [place] [address]- 0950 Apr, [facility] [place] [facility] [address] [id number] [place] [address] 6951 Mar, [facility] [place] [facility] [address] [id number] [place] [address] 8898 Mar, [facility] [place] [facility] [address] [id number] [place] [address]- 2546 Feb, [facility] [place] [facility] [address] [id number] [place] [address] 1459 Jan, [facility] [place] [facility] [address] [id number] [place] [address]- 0[address] Jan, [facility] [place] [facility] [address] [id number] [place] [address]- 4760 Jan, [facility] [place] [facility] [address] [id number] [place] [address]- 7118 Jan, [facility] [place] [facility] [address] [id number] [place] [address]- 0127 Dec, [facility] [place] [facility] [address] [id number] [place] [address]- 0113 Dec, [facility] [place] [facility] [address] [id number] [place] [address]- 8128 Dec, [facility] [place] [facility] [address] [id number] [place] [address]- 0203 Dec, [facility] [place] [facility] [address] [id number] [place] [address]- 4356 Dec, [facility] [place] [facility] [address] [id number] [place] [address]- 0012 Dec, [facility] [place] [facility] [address] [id number] [place] [address]- 6921 Dec, [facility] [place] [facility] [address] [id number] [place] [address] November, [facility] [place] [facility] [address] [id number] [place] [address] 5740 November, [facility] [address] [id number] [place] [address]- 5334 November, [facility] [place] [facility] [address] [id number] [place] [address]- 5264 Oct, [facility] [place] [facility] [address] [id number] [place] [address]- 6685 Oct, [facility] [place] [facility] [address] [id number] [place] [address]- 3805 Oct, [facility] [place] [facility] [address] [id number] [place] [address]- 5176 Oct, [facility] [place] [facility] [address] [id number] [place] [address]- 4237 Oct, [facility] [place] [facility] [address] [id number] [place] [address]- 8319 Sep, [facility] [place] [facility] [address] [id number] [place] [address]- 2819 Sep, [facility] [place] [facility] [address] [id number] [place] [address]- 7692 Sep, [facility] [place] [facility] [address] [id number] [place] [address] 8097 Sep, [facility] [place] [facility] [address] [id number] [place] [address] 0443 Aug, [facility] [place] [facility] [address] [id number], [place] [address] 2320 Aug, [facility] [place] [facility] [address] [id number] [place] [address]- 1628 Aug, [facility] [place] [facility] [address] [id number] [place] [address]- 9353 Aug, [facility] [place] [facility] [address] [id number] [place] [address]- 9804 Jul, [facility] [place] [facility] [address] [id number] [place] [address]- 5445 Jul, [facility] [address] [id number] [place] [address]- 9030 Jun, [facility] [place] [facility] [address] [id number] [place] [address]- 8036 Jun, [facility] [address] [id number] [place] [address]- 9919 Jun, [facility] [place] [facility] [address] [id number] [place] [address] 1918 Jun, [facility] [address] [id number] [place] [address], [place] [address]- 2963 May, [facility] [place] [facility] [address] [id number] [place] [address]- 9598 May, [facility] [place] [facility] [address] [facility] [id number] [place] [address]- 5930 May, [facility] [place] [facility] [address] [facility] [id number] [place] [address]- 9233 May, [facility] [place] [facility] [address] [facility] [id number] [place] [address]- 8276 Apr, [facility] [place] [facility] [address] [facility] [id number] [place] [address]- 5155 Apr, [facility] [place] [facility] [address] [facility] [id number] [place] [address]- 5588 31 Apr, 2012 [facility] [place] [facility] [address] [facility] [id number] [place] [address]- 4072 31 Apr, 2012 [facility] [place] [facility] [address] [facility] [id number] [place] [address]- 2970 30 Apr, 2012 [facility] [place] [facility] [address] [facility] [id number] [place] [address]- 8723 30 Apr, 2012 [facility] [place] [facility] [address] [facility] [id number] [place] [address]- 3592 Apr, [facility] [place] [facility] [address] [id number] [place] [address]- 7507 Apr, [facility] [place] [facility] [address] [id number] [place] [address]- 3456 Apr, [facility] [place] [facility] [address] [id number] [place] [address]- 6183 Apr, [facility] [place] [facility] [address] [id number] [place] [address]- 0190 Feb, [facility] [place] [facility] [address] [id number] [place] [address]- 0240 Feb, [facility] [place] [facility] [address] [id number] [place] [address]- 5174 Jan, [facility] [place] [facility] [address] [id number] [place] [address]- 4522 Jan, [facility] [place] [facility] [address] [id number] [place] [address]- 1243 Jan, [facility] [place] [facility] [address] [id number] [place] [address]- 3938 Jan, [facility] [place] [facility] [address] [id number] [place] [address]- 5884 Jan, [facility] [place] [facility] [address] [id number] [place] [address]- 7525 Jan, [facility] [place] [facility] [address] [id number], [place] [address]- 0964 Dec, [facility] [place] [facility] [address] [id number] [place] [address]- 4467 November, [facility] [place] [facility] [address] [id number] [place] [address]- 5366 November, [facility] [place] [facility] [address] [id number] [place] [address]- 6547 November, [facility] [place] [facility] [address] [id number] [place] [address]- 3186 Sep, [facility] [address] [id number] [place] [address]- 6168 Sep, [facility] [place] [facility] [address] [id number] [place] [address]- 8056 Sep, [facility] [place] [facility] [address] [id number] [place] [address]- 6796 Sep, [facility] [place] [facility] [address] [id number] [place] [address]- 8886 Sep, [facility] [place] [facility] [address] [id number] [place] [address]- 0853 Sep, [facility] [place] [facility] [address] [id number] [place] [address]- 7946 13 Aug, 2011 [facility] [place] [facility] [address] [id number] [place] [address]- 0598 Aug, [facility] [place] [facility] [address] [id number] [place] [address]- 6621 Aug, [facility] [place] [facility] [address] [id number] [place] [address]- 9258 Jul, [facility] [place] [facility] [address] [facility] [id number] [place] [address]- 5760 Jul, [facility] [place] [facility] [address] [id number] [place] [address]- 8542 Jul, [facility] [place] [facility] [address] [id number] [place] [address] 2546 Jul, [facility] [place] [facility] [address] [id number] [place] [address]- 9318 Jun, [facility] [place] [facility] [address] [id number] [place] [address] 2546 Jun, [facility] [place] [facility] [address] [facility] [id number] [place] [address]- 5986 Jun, [facility] [place] [facility] [address] [id number] [place] [address]- 4169 06 Jun, 2011 [facility] [place] [facility] [address] [id number] [place] [address]- 0206 Jun, [facility] [place] [facility] [address] [id number] [place] [address] 2546 Jun, [facility] [place] [facility] [address] [id number] [place] [address]- 0236 May, [facility] [place] [facility] [address] [id number] [place] [address] 2548 May, [facility] [place] [facility] [address] [id number] [place] [address]- 5250 May, [facility] [place] [facility] [address] [id number] [place] [address]- 2546 Apr, [facility] [place] [facility] [address] [id number] [place] [address]- 1738 Jan, [facility] [place] [facility] [address] [id number] [place] [address]- 6539 Jun, [facility] [place] [facility] [address] [id number] [place] [address]- 8119 20 Jun, 2010 [facility] [place] [facility] [address] [id number] [place] [address]- 1740 15 Jun, 2010 [facility] [place] [facility] [address] [id number] [place] [address]- 2546 15 Jun, 2010 [facility] [place] [facility] [address] [id number] [place] [address] 2549 15 Jun, 2010 [facility] [place] [facility] [address] [id number] [place] [address] 2546 13 Jun, 2010 [facility] [place] [facility] [address] [id number] [place] [address] 2540 13 Jun, 2010 [facility] [place] [facility] [address] [id number] [place] [address]- 7088 Apr, [facility] [address] [id number] [place] [address]- 2596 Feb, [facility] [place] [facility] [address] [id number] [place] [address]- 8706 15 Aug, 2009 [facility] [place] [facility] [address] [facility] [id number] [place] [address] 2546 18 Jul, 2009 [facility] [place] [facility] [address] [id number], [place] [address] 2542 Jul, [facility] [address] [id number] [place] [address]- 9186 29 Jun, 2009 [facility] [place] [facility] [address] [id number] [place] [address]- 2112 Jun, [facility] [place] [facility] [address] [id number] [place] [address]- 2130 Jun, [facility] [place] [facility] [address] [id number], [place] [address]- 9003 22 Jun, 2009 [facility] [address] [id number], [place] [address]- 4647 16 Jun, 2009 [facility] [place] [facility] [address] [facility] [id number], [place] [address]- 1847 Jun, [facility] [place] [facility] [address] [facility] [id number], [place] [address]- 1715 Jun, [facility] [place] [facility] [address] [id number], [place] [address]- [address] 30 May, 2009 [facility] [place] [facility] [address] [id number] [place] [address] 2541 27 May, 2009 [facility] [place] [facility] [address] [facility] [id number], [place] [address]- 2548 23 May, 2009 [facility] [place] [facility] [address] [facility] [id number], [place] [address]- 2547 18 May, 2009 [facility] [place] [facility] [address] [facility] [id number] [place] [address]- 2546 May, [facility] [address] [id number], [place] [address]- 0429 May, [facility] [address] [id number], [place] [address]- 2546 May, [facility] [address] [id number], [place] [address]- 0638 Apr, [facility] [address] [id number], [place] [address]- 2546 Apr, [facility] [address] [id number], [place] [address]- 6482 Jan, [facility] [address] [id number], [place] [address]- 4086 Oct, IMMUNIZATIONS No Known Immunizations SOCIAL HISTORY Never Assessed REASON FOR VISIT Blood pressure check -IL PLAN OF CARE VITAL SIGNS Height 62 in 2017-12-24 Blood pressure systolic 98 mmHg 2017-12-24 Blood pressure diastolic 58 mmHg 2017-12-24 MEDICATIONS Unknown Medications RESULTS No Results PROCEDURES [...]
--- OUTSIDE RECORDS SUMMARY | 2018-11-09 13:04 | XMS REPORT ---
Author Author PRABHA HILL [facility] Address [address] [place] [address] Care Team Providers Care Park Interpreter Name Role Phone PRABHA HILL Unavailable PROBLEMS Type Condition ICD9-CM Code HMZ34-PD Code Onset Dates Condition Status SNOMED Code Problem Hypoglycemia E16.2 Active 919982208 Problem Hallucinations R44.3 Active 6516893 Problem Unsteady gait R26.81 Active 81054760 Problem 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 Active [id number] Problem Dysuria R30.0 Active 97378015 Problem Anxiety F41.9 Active 17347644 Problem Dementia in other diseases classified elsewhere without behavioral disturbance F02.80 Active 305746122 Problem Other frontotemporal dementia G31.09 Active 791840757 Problem Parkinsons disease G20 Active 93829290 Problem Episodic cluster headache, not intractable G44.019 Active 986399183 Problem Neurogenic orthostatic hypotension G90.3 Active 438566209 Problem Mixed stress and urge urinary incontinence N39.46 Active 640371057 Problem 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 Active 846142440 Problem Essential hypertension I10 Active 51987095 Problem Type 2 diabetes mellitus with unspecified complications E11.8 Active 47190041 Problem PVD (peripheral vascular disease) I73.9 Active 693117384 Problem Dysthymia F34.1 Active 35344958 Problem Polydipsia R63.1 Active 81238161 Problem 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 Active 8151728037436 Problem Hypothyroidism (acquired) E03.9 Active 333206281 Problem Hyperlipemia, mixed E78.2 Active 530978453 Problem Dementia with Lewy bodies G31.83 Active 168422705 Problem Neuropathy G62.9 Active 737363527 Problem Hypernatremia E87.0 Active 65615976 ALLERGIES No Information ENCOUNTERS Encounter Location Date Diagnosis [facility] [id number] [place] [address] 55677- 8173 Feb, [facility] [id number] [place] [address] 43826- 0416 Feb, Left shoulder pain M25.512 [facility] [id number] [place] [address] 70591- 3664 Feb, 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 [facility] [address] 28605- 7959 Jan, Left shoulder pain M25.512 [facility] [id number] [place] [address] 67878- 6147 Dec, Parkinsons disease G20 [facility] [id number] [place] [address] 59648- 0480 Dec, Left shoulder pain M25.512 [facility] [id number] [place] [address] 20786- 1113 Dec, Type 2 diabetes mellitus with unspecified complications E11.8 ; Anxiety F41.9 ; Therapeutic drug monitoring Z51.81 and Analgesic use Z79.899 [facility] [id number] [place] [address] 56774- 3618 November, [facility] [id number] [place] [address] 01069- 0063 November, [facility] [id number] [place] [address] 97361- 7943 November, Left shoulder pain M25.512 [facility] [id number] [place] [address] 32471- 4096 Oct, [facility] [id number] [place] [address] 24755 -1923 Oct, [facility] [id number] [place] [address] 58863- 3899 Oct, Parkinsons disease G20 [facility] [id number] [place] [address] 98382 -5097 18 Oct, 2017 Acute cystitis without hematuria N30.00 and Viral upper respiratory tract infection J06.9 [facility] [id number] [place] [address] 82166- 0960 Oct, [facility] [id number] [place] [address] 91381- 2993 Oct, Type 2 diabetes mellitus with unspecified complications E11.8 [facility] [id number] [place] [address] 90812- 7967 Oct, Left shoulder pain M25.512 [facility] [id number] [place] [address] 59178- 3894 Oct, Type 2 diabetes mellitus with unspecified complications E11.8 ; Dysuria R30.0 and Neurogenic orthostatic hypotension G90.3 [facility] [address] 46763- 8979 Sep, Left shoulder pain M25.512 [facility] [id number] [place] [address] 34725- 8956 Sep, Medicare annual wellness visit, initial Z00.00 ; Parkinsons disease G20 ; Type 2 diabetes mellitus with unspecified complications E11.8 ; Essential hypertension I10 ; 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 ; Hypothyroidism (acquired ) E03.9 ; PVD (peripheral vascular disease) I73.9 ; Dysthymia F34.1 ; Hyperlipemia, mixed E78.2 ; Neuropathy G62.9 ; Encounter for immunization Z23 ; Encounter for other screening for malignant neoplasm of breast Z12.39 and Mixed stress and urge urinary incontinence N39.46 [facility] [id number] [place] [address] 38839- 9427 Aug, Parkinsons disease G20 [facility] [id number] [place] [address] 84520- 2726 Aug, Type 2 diabetes mellitus with unspecified complications E11.8 ; Left shoulder pain M25.512 and Hypotensive episode I95.9 [facility] [id number] [place] [address] 02057- 9099 09 Aug, 2017 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 [facility] [id number] [place] [address] 54393- 0069 07 Aug, 2017 Type 2 diabetes mellitus with unspecified complications E11.8 [facility] [id number] [place] [address] 35841- 1545 Jul, Callus of foot L84 [facility] [address] 05976- 7531 Jul, [facility] [id number] [place] [address] 93478- 6729 Jul, Callus of foot L84 ; Episodic cluster headache, not intractable G44.019 ; Type 2 diabetes mellitus with unspecified complications E11.8 and Parkinsons disease G20 [facility] [id number] [place] [address] 10265- 4261 Jul, [facility] [id number] [place] [address] 00007- 5975 Jul, [facility] [id number] [place] [address] 21435- 8719 Jun, Type 2 diabetes mellitus with unspecified complications E11.8 ; Unsteady gait R26.81 ; Forgetfulness R68.89 and Hallucinations R44.3 [facility] [id number] [place] [address] 80325- 6077 Jun, [facility] [id number] [place] [address] 05985- 7340 Jun, Left shoulder pain M25.512 [facility] [id number] [place] [address] 96146- 4923 May, Hypernatremia E87.0 and Polydipsia R63.1 [address] [id number] [place] [address] 70494- 0394 08 May, 2017 Hypernatremia E87.0 and Polydipsia R63.1 [facility] [id number] [place] [address] 84425- 4105 May, Hypoglycemia E16.2 ; Dysuria R30.0 ; Unsteadiness on feet R26.81 ; Forgetfulness R68.89 ; Type 2 diabetes mellitus with unspecified complications E11.8 and Yeast infection involving the vagina and surrounding area B37.3 [facility] [id number] [place] [address] 51833- 6243 May, Acute cystitis without hematuria N30.00 [facility] [id number] [place] [address] 57069 -2118 Apr, Dysuria R30.0 and Acute cystitis without hematuria N30.00 [facility] [address] 77749- 6443 Apr, Hypernatremia E87.0 and Polydipsia R63.1 [facility] [id number] [place] [address] 24991- 1276 Apr, Vertigo R42 and Type 2 diabetes mellitus with unspecified complications E11.8 [facility] [id number] [place] [address] 53615- 3388 Mar, [facility] [id number] [place] [address] 75578- 7425 19 Mar, 2017 Left shoulder pain M25.512 [facility] [id number] [place] [address] 52691- 2051 13 Mar, 2017 Vertigo R42 [facility] [id number] [place] [address] 88421- 9053 Mar, Polydipsia R63.1 [facility] [id number] [place] [address] 86303- 5319 Mar, Polydipsia R63.1 [facility] [address] 79301- 5654 11 Mar, 2017 Vertigo R42 [facility] [address] 68041- 3102 07 Mar, 2017 Type 2 diabetes mellitus with unspecified complications E11.8 ; Vertigo R42 ; Polydipsia R63.1 ; Polyuria R35.8 ; Hypothyroidism ( acquired) E03.9 ; Abnormal urinalysis R82.90 and Dysthymia F34.1 [facility] [address] 89063- 5152 05 Mar, 2017 Coronary artery disease of marshall artery with stable angina pectoris, unspecified whether marshall or transplanted heart I25.118 ; Systolic CHF, chronic I50.22 ; Hyperlipemia, mixed E78.2 and Essential hypertension I10 [facility] [address] [id number] Feb, Dental caries K02.9 [place] [facility] [address] 08163- 9085 Feb, Type 2 diabetes mellitus with diabetic neuropathy, unspecified E11.40 [facility] [address] 85482- 5361 23 Dec, 2016 Left shoulder pain M25.512 [facility] [address] 58446- 3230 16 Dec, 2016 [facility] [facility] [address] 16553- 1887 Dec, Type 2 diabetes mellitus with unspecified complications E11.8 [facility] [address] [id number] Dec, Dental examination Z01.20 [facility] [facility] [address] 47456- 7740 08 Dec, 2016 Type 2 diabetes mellitus with diabetic neuropathy, unspecified E11.40 [facility] [address] 37682- 8309 Dec, [facility] [id number] [place] [address] 56810- 6840 Dec, Type 2 diabetes mellitus with diabetic neuropathy, unspecified E11.40 [facility] [id number] [place] [address] 541326- 3886 November, Left shoulder pain M25.512 [facility] [id number] [place] [address] 14604- 0779 November, [facility] [id number] [place] [address] 409279- 6066 November, Type 2 diabetes mellitus with unspecified complications E11.8 and Dysuria R30.0 [facility] [id number] [place] [address] 33178- 4600 Oct, Left shoulder pain M25.512 [facility] [id number] [place] [address] 73019- 9702 Sep, Left shoulder pain M25.512 [facility] [id number] [place] [address] 76021- 2464 Sep, Pre-op testing Z01.818 [facility] [id number] [place] [address] 81141- 4409 Sep, Pre-op testing Z01.818 [facility] [id number] [place] [address] 17407- 9979 Sep, Pre-op testing Z01.818 [facility] [id number] [place] [address] 59348 2540 Sep, Pre-op testing Z01.818 and Mouth pain K13.79 [facility] [id number] [place] [address] 797674- 2971 Sep, Left shoulder pain M25.512 [facility] [id number] [place] [address] 33322- 9030 Aug, Other eczema L30.8 [facility] [id number] [place] [address] 76400- 3238 06 Aug, 2016 PVD (peripheral vascular disease) I73.9 ; Type 2 diabetes mellitus with unspecified complications E11.8 ; Acute cystitis with hematuria N30.01 ; Other eczema L30.8 ; Dysuria R30.0 and Left shoulder pain M25.512 [facility] [address] 23409 -8134 Jul, Otalgia of right ear H92.01 and Blood in ear canal, right H92.21 [facility] [address] 48684- 9588 Jul, Arthralgia, unspecified joint M25.50 ; PVD (peripheral vascular disease) I73.9 and Neuropathy G62.9 [facility] [facility] [address] 95215- 9703 Jul, [facility] [address] 43596- 9848 Jun, Medicare annual wellness visit, initial Z00.00 ; Cervicalgia M54.2 ; Radiculopathy of cervical region M54.12 ; Encounter for immunization Z23 ; Type 2 diabetes mellitus with unspecified complications E11.8 and Essential hypertension I10 [facility] [id number] [place] [address] 02150- 5975 Jun, [facility] [address] 71723- 1170 14 May, 2016 Hypothyroidism (acquired) E03.9 [facility] [address] 65886- 0975 10 May, 2016 Dysuria R30.0 ; Essential hypertension I10 ; Hypothyroidism (acquired) E03.9 and PVD (peripheral vascular disease) I73.9 [facility] [id number] [place] [address] 91901 -6788 03 May, 2016 Burning with urination R30.0 and Acute cystitis with hematuria N30.01 [place] [address] [address]- 7935 May, Dental examination Z01.20 [facility] [id number] [place] [address] 45593- 5485 May, Hypothyroidism (acquired) E03.9 [facility] [id number] [place] [address] 09494 2543 Feb, [facility] [id number] [place] [address] 71821- 2540 Feb, 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 ; PVD ( peripheral vascular disease) I73.9 ; Type 2 diabetes mellitus with unspecified complications E11.8 and Essential hypertension I10 [facility] [id number] [place] [address] 53463- 8093 Jan, [facility] [id number] [place] [address] 32594- 8668 Jan, Hypothyroidism (acquired) E03.9 [facility] [id number] [place] [address] 16501- 6211 Jan, [facility] [id number] [place] [address] 28913- 8294 Jan, [facility] [address] [address]- 2549 Jan, Type 2 diabetes mellitus with unspecified complications E11.8 ; 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 and Essential ( primary) hypertension I10 [place] [facility] [id number] [place] [address] 84276 2544 Jan, Type 2 diabetes mellitus with unspecified complications E11.8 ; 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 ; Essential hypertension I10 and PVD (peripheral vascular disease) I73.9 [facility] [facility] [address] [address]- 2544 Jan, [facility] [id number] [place] [address] 89317- 4928 Jan, [facility] [id number] [place] [address] 88027- 2422 Jan, [facility] [id number] [place] [address] 42828- 9012 Jan, Weakness R53.1 ; Fatigue, unspecified type R53.83 ; PVD ( peripheral vascular disease) I73.9 ; Acute osteomyelitis of other site M86.18 ; Type 2 diabetes mellitus with diabetic neuropathy, unspecified E11.40 and shelter 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.4 [facility] [id number] [place] [address] 17827- 3931 Dec, [facility] [id number] [place] [address] 80892- 2209 Dec, Type 2 diabetes mellitus with unspecified complications E11.8 [facility] [id number] [place] [address] 25960- 4455 Dec, [facility] [id number] [place] [address] 67660- 6189 Dec, Pressure ulcer, unspecified pressure ulcer stage L89.90 and Type 2 diabetes mellitus with unspecified complications E11.8 [facility] [id number] [place] [address] 42138 -1071 Dec, Toe infection L08.9 [facility] [id number] [place] [address] 62923- 8227 November, Dental caries K02.9 [facility] [id number] [place] [address] 40817- 9651 November, [facility] [id number] [place] [address] 68246- 9845 November, Dental examination Z01.20 [facility] [id number] [place] [address] 39627- 7764 Sep, Lipoma of torso D17.1 and Thoracic neuritis M54.14 [facility] [id number] [place] [address] 48556- 3111 Sep, [facility] [id number] [place] [address] 08566- 2057 Aug, [facility] [id number] [place] [address] 91385 -7626 Jul, Dysuria R30.0 and UTI (urinary tract infection) N39.0 [facility] [id number] [place] [address] 20482- 1414 Jun, Left shoulder pain M25.512 [facility] [facility] [address] 62791- 4870 May, Shoulder pain, left M25.512 [facility] [id number] [place] [address] 89951- 0135 May, [facility] [id number] [place] [address] 78535- 3983 May, [facility] [id number] [place] [address] 69534- 4671 May, Left shoulder pain M25.512 [facility] [id number] [place] [address] 44383- 9093 May, [facility] [id number] [place] [address] 58562- 8539 Apr, Encounter for immunization Z23 [facility] [id number] [place] [address] 65474- 2541 Apr, Urinary tract infection, site not specified N39.0 ; Hypotension, unspecified I95.9 ; Type 2 diabetes mellitus with unspecified complications E11.8 and Generalized edema R60.1 [facility] [id number] [place] [address] 83118- 1778 Apr, [facility] [address] 79108- 4980 Mar, Diabetes with other specified manifestations, type II or unspecified type, not stated as uncontrolled 250.80 [facility] [id number] [place] [address] 99840- 4886 Feb, Gout 274.9 and Diabetes 250.00 [facility] [id number] [place] [address] 21820- 0836 Jan, [facility] [id number] [place] [address] 71741- 7215 November, CAD (coronary artery disease) 414.00 and CHF (congestive heart failure) 428.0 [facility] [id number] [place] [address] 45343- 9992 Oct, [facility] [id number] [place] [address] 572658- 8179 Oct, [facility] [id number] [place] [address] 59520- 2974 Oct, [facility] [id number] [place] [address] 465283- 3817 Sep, [facility] [id number] [place] [address] 20674- 6888 Sep, [facility] [id number] [place] [address] 51421096- 5494 Sep, [facility] [id number] [place] [address] 14480138- 6157 Sep, [facility] [id number] [place] [address] 534507- 4517 Aug, [facility] [id number] [place] [address] 408322- 1372 Aug, [facility] [id number] [place] [address] 29403- 5926 Aug, [facility] [id number] [place] [address] 79241- 0097 Aug, [facility] [place] [facility] [address] [id number] [place] [address]- 0186 Aug, [facility] [place] [facility] [address] [id number] [place] [address]- 1993 Aug, [facility] [place] [facility] [address] [id number] [place] [address]- 5932 Aug, [facility] [place] [facility] [address] [id number] [place] [address]- 2489 Aug, [facility] [place] [facility] [address] [id number] [place] [address]- 3297 Jul, [facility] [place] [facility] [address] [id number] [place] [address]- 6437 Jul, [facility] [place] [facility] [address] [id number] [place] [address]- 6310 Jul, [facility] [place] [facility] [address] [id number] [place] [address]- 2643 Jul, [facility] [place] [facility] [address] [id number] [place] [address]- 8766 Jul, [facility] [place] [facility] [address] [facility] [id number] [place] [address]- 6425 Jul, [facility] [place] [facility] [address] [id number] [place] [address]- 5610 Jul, [facility] [place] [facility] [address] [id number] [address]- 7220 Jul, [facility] [place] [facility] [address] [id number], [place] [address]- 6446 Jul, [facility] [place] [facility] [address] [id number] [address]- 0031 Jul, [facility] [place] [facility] [address] [id number], [place] [address]- 1137 Jun, [facility] [place] [facility] [address] [id number] [place] [address]- 1261 Jun, [facility] [place] [facility] [address] [id number] [place] [address]- 0067 Jun, [facility] [place] [facility] [address] [id number] [place] 6725 Jun, [facility] [place] [facility] [address] [id number] [place] [address]- 2365 Jun, [facility] [place] [facility] [address] [id number] [place] [address]- 8804 Jun, [facility] [place] [facility] [address] [id number] [place] [address]- 3145 Jun, [facility] [place] [facility] [address] [id number] [place] [address]- 4400 Jun, [facility] [place] [facility] [address] [id number] [place] [address]- 2968 Jun, [facility] [place] [facility] [address] [id number] [place] [address]- 4740 Jun, [facility] [place] [facility] [address] [id number] [place] [address]- 6724 May, [facility] [place] [facility] [address] [id number] [place] [address]- 4776 14 May, 2014 [facility] [place] [facility] [address] [id number] [place] [address] 18 Mar, 2014 [facility] [place] [facility] [address] [id number] [place] [address] 18 Mar, 2014 [facility] [place] [facility] [address] [id number] [place] [address] 10 Mar, 2014 [facility] [place] [facility] [address] [id number] [place] [address] 10 Mar, 2014 [facility] [place] [facility] [address] [id number] [place] [address] Feb, [facility] [place] [facility] [address] [id number] [place] [address] Feb, [facility] [place] [facility] [address] [id number] [place] [address] Feb, [facility] [place] [facility] [address] [id number] [place] [address] Jan, [facility] [place] [facility] [address] [id number] [place] [address] Jan, [facility] [place] [facility] [address] [id number] [place] [address] Jan, [facility] [place] [facility] [address] [id number] [place] [address] Jan, [facility] [place] [facility] [address] [id number] [place] [address] Jan, [facility] [place] [facility] [address] [id number] [place] [address] Jan, [facility] [place] [facility] [address] [id number] [place] [address] Jan, [facility] [place] [facility] [address] [id number] [place] [address] Jan, [facility] [place] [facility] [address] [id number] [place] [address] Jan, [facility] [place] [facility] [address] [id number] [place] [address] Jan, [facility] [place] [facility] [address] [id number] [place] [address] Dec, [facility] [place] [facility] [address] [id number] [place] [address] Dec, [facility] [place] [facility] [address] [id number] [place] [address] November, [facility] [place] [facility] [address] [id number] [place] [address] November, [facility] [place] [facility] [address] [id number] [place] [address] November, [facility] [place] [facility] [address] [id number] [place] [address] November, [facility] [place] [facility] [address] [id number] [place] [address] November, [facility] [place] [facility] [address] [id number] [place] [address] November, [facility] [place] [facility] [address] [id number] [place] [address] November, [facility] [place] [facility] [address] [id number] [place] [address] Oct, [facility] [place] [facility] [address] [id number] [place] [address]60 Oct, [facility] [place] [facility] [address] [id number] [place] [address] Sep, [facility] [place] [facility] [address] [id number] [place] [address] Sep, [facility] [place] [facility] [address] [id number] [place] [address] Sep, [facility] [place] [facility] [address] [id number] [place] [address] 6[address] Sep, [facility] [place] [facility] [address] [id number] [place] [address] 48[address] Sep, [facility] [place] [facility] [address] [id number] [place] [address]175 Sep, [facility] [place] [facility] [address] [id number] [place] [address] 1814 Sep, [facility] [place] [facility] [address] [id number] [place] [address] 4[address] Sep, [facility] [place] [facility] [address] [id number] [place] [address] 9728 Sep, [facility] [place] [facility] [address] [id number] [place] [address] 64[address] Sep, [facility] [place] [facility] [address] [id number] [place] [address] 4864 Aug, [facility] [place] [facility] [address] [id number] [place] [address] 7365 Aug, [facility] [place] [facility] [address] [id number] [place] [address] 44[address] Jul, [facility] [place] [facility] [address] [id number] [place] [address]- 4282 Jul, [facility] [place] [facility] [address] [id number] [place] [address]- 5848 Jul, [facility] [place] [facility] [address] [id number] [place] [address]- 2294 Jul, [facility] [place] [facility] [address] [id number] [place] [address]- 8700 Jul, [facility] [place] [facility] [address] [id number] [place] [address]- 4068 Jul, [facility] [place] [facility] [address] [id number], [place] [address] Jun, [facility] [place] [facility] [address] [id number], [place] [address] 78[address] Jun, [facility] [place] [facility] [address] [id number] [place] [address]- 7032 Jun, [facility] [place] [facility] [address] [id number] [place] [address]- 6[address] Jun, [facility] [place] [facility] [address] [id number], [place] [address] 89[address] May, [facility] [place] [facility] [address] [id number], [place] [address]- [address]687 14 May, 2013 [facility] [place] [facility] [address] [id number] [place] [address]- 2191 May, [facility] [place] [facility] [address] [id number] [place] [address]- 8527 11 May, 2013 [facility] [place] [facility] [address] [id number] [place] [address]- 8760 May, [facility] [place] [facility] [address] [id number] [place] [address]- 9135 31 Apr, 2013 [facility] [place] [facility] [address] [id number] [place] [address]- 5348 31 Apr, 2013 [facility] [place] [facility] [address] [id number] [place] [address]- 6958 Apr, [facility] [place] [facility] [address] [id number] [place] [address]- 4111 Apr, [facility] [place] [facility] [address] [id number] [place] [address]- 4699 Apr, [facility] [place] [facility] [address] [id number] [place] [address]- 1458 Apr, [facility] [place] [facility] [address] [id number] [place] [address]- 6728 Apr, [facility] [place] [facility] [address] [id number], [place] [address] Apr, [facility] [place] [facility] [address] [id number], [place] [address] 5979 Apr, [facility] [place] [facility] [address] [id number] [place] [address]- 0561 Apr, [facility] [place] [facility] [address] [id number] [place] [address]- 7606 Apr, [facility] [place] [facility] [address] [id number] [place] [address]- 3161 Apr, [facility] [place] [facility] [address] [id number] [place] [address]- 9445 Mar, [facility] [place] [facility] [address] [id number] [place] [address] 5[address] Mar, [facility] [place] [facility] [address] [id number] [place] [address]- 2546 Feb, [facility] [place] [facility] [address] [id number] [place] [address]- 8477 Jan, [facility] [place] [facility] [address] [id number] [place] [address]- 8790 Jan, [facility] [place] [facility] [address] [id number] [place] [address]- 3210 Jan, [facility] [place] [facility] [address] [id number] [place] [address]- 1196 Jan, [facility] [place] [facility] [address] [id number] [place] [address]- 9340 Dec, [facility] [place] [facility] [address] [id number] [place] [address]- 9214 Dec, [facility] [place] [facility] [address] [id number] [place] [address]- 3240 Dec, [facility] [place] [facility] [address] [id number] [place] [address]- 4969 Dec, [facility] [place] [facility] [address] [id number] [place] [address]- 2295 Dec, [facility] [place] [facility] [address] [id number] [place] [address]- 9746 Dec, [facility] [place] [facility] [address] [id number] [place] [address]- 5336 Dec, [facility] [place] [facility] [address] [id number] [place] [address] 4506 November, [facility] [place] [facility] [address] [id number] [place] [address]- 7064 November, [facility] [address] [id number] [place] [address]- 8534 November, [facility] [place] [facility] [address] [id number] [place] [address]- 1740 Oct, [facility] [place] [facility] [address] [id number] [place] [address]- 0193 Oct, [facility] [place] [facility] [address] [id number] [place] [address]- 0505 Oct, [facility] [place] [facility] [address] [id number] [place] [address] 6903 Oct, [facility] [place] [facility] [address] [id number] [place] [address] 6422 Oct, [facility] [place] [facility] [address] [id number] [place] [address] 5112 Sep, [facility] [place] [facility] [address] [id number] [place] [address]- 0209 Sep, [facility] [place] [facility] [address] [id number] [place] [address]- 3668 Sep, [facility] [place] [facility] [address] [id number] [place] [address]- 3241 Sep, [facility] [place] [facility] [address] [id number] [place] [address]- 2686 Aug, [facility] [place] [facility] [address] [id number], [place] [address]- 3114 Aug, [facility] [place] [facility] [address] [id number] [place] [address]- 5541 Aug, [facility] [place] [facility] [address] [id number] [place] [address]- 8886 Aug, [facility] [place] [facility] [address] [id number] [place] [address]- 0395 Jul, [facility] [place] [facility] [address] [id number] [place] [address]- 0261 Jul, [facility] [address] [id number] [place] [address]- 8296 Jun, [facility] [place] [facility] [address] [id number] [place] [address]- 9016 Jun, [facility] [address] [id number] [place] [address]- 8528 Jun, [facility] [place] [facility] [address] [id number] [place] [address]- 8961 Jun, [facility] [address] [id number] [place] [address], [place] [address]- 7987 May, [facility] [place] [facility] [address] [id number] [place] [address]- 0406 May, [facility] [place] [facility] [address] [facility] [id number] [place] [address]- 2331 May, [facility] [place] [facility] [address] [facility] [id number] [place] [address]- 0619 May, [facility] [place] [facility] [address] [facility] [id number] [place] [address]- 7066 Apr, [facility] [place] [facility] [address] [facility] [id number] [place] [address]- 5406 Apr, [facility] [place] [facility] [address] [facility] [id number] [place] [address]- 4882 31 Apr, 2012 [facility] [place] [facility] [address] [facility] [id number] [place] [address]- 7381 31 Apr, 2012 [facility] [place] [facility] [address] [facility] [id number] [place] [address]- 9338 30 Apr, 2012 [facility] [place] [facility] [address] [facility] [id number] [place] [address]- 5259 30 Apr, 2012 [facility] [place] [facility] [address] [facility] [id number] [place] [address]- 1682 Apr, [facility] [place] [facility] [address] [id number] [place] [address]- 5584 Apr, [facility] [place] [facility] [address] [id number] [place] [address]- 7356 Apr, [facility] [place] [facility] [address] [id number] [place] [address]- 5323 Apr, [facility] [place] [facility] [address] [id number] [place] [address]- 1026 Feb, [facility] [place] [facility] [address] [id number] [place] [address]- 9855 Feb, [facility] [place] [facility] [address] [id number] [place] [address]- 8081 Jan, [facility] [place] [facility] [address] [id number] [place] [address]- 3936 Jan, [facility] [place] [facility] [address] [id number] [place] [address]- 9107 Jan, [facility] [place] [facility] [address] [id number] [place] [address]- 9145 Jan, [facility] [place] [facility] [address] [id number] [place] [address]- 9412 Jan, [facility] [place] [facility] [address] [id number] [place] [address]- 1436 Jan, [facility] [place] [facility] [address] [id number], [place] [address]- 1745 Dec, [facility] [place] [facility] [address] [id number] [place] [address]- 0273 November, [facility] [place] [facility] [address] [id number] [place] [address]- 0816 November, [facility] [place] [facility] [address] [id number] [place] [address]- 1673 November, [facility] [place] [facility] [address] [id number] [place] [address]- 5506 Sep, [facility] [address] [id number] [place] [address]- 6015 Sep, [facility] [place] [facility] [address] [id number] [place] [address]- 5346 Sep, [facility] [place] [facility] [address] [id number] [place] [address]- 0196 Sep, [facility] [place] [facility] [address] [id number] [place] [address]- 3388 Sep, [facility] [place] [facility] [address] [id number] [place] [address]- 6722 Sep, [facility] [place] [facility] [address] [id number] [place] [address]- 7526 13 Aug, 2011 [facility] [place] [facility] [address] [id number] [place] [address]- 6150 Aug, [facility] [place] [facility] [address] [id number] [place] [address]- 4673 Aug, [facility] [place] [facility] [address] [id number] [place] [address]- 8925 Jul, [facility] [place] [facility] [address] [facility] [id number] [place] [address]- 6927 Jul, [facility] [place] [facility] [address] [id number] [place] [address]- 6734 Jul, [facility] [place] [facility] [address] [id number] [place] [address] 2546 Jul, [facility] [place] [facility] [address] [id number] [place] [address]- 9300 Jun, [facility] [place] [facility] [address] [id number] [place] [address] 2546 Jun, [facility] [place] [facility] [address] [facility] [id number] [place] [address]- 7276 Jun, [facility] [place] [facility] [address] [id number] [place] [address]- 1574 06 Jun, 2011 [facility] [place] [facility] [address] [id number] [place] [address]- 2426 Jun, [facility] [place] [facility] [address] [id number] [place] [address] 2546 Jun, [facility] [place] [facility] [address] [id number] [place] [address]- 2586 May, [facility] [place] [facility] [address] [id number] [place] [address] 2540 May, [facility] [place] [facility] [address] [id number] [place] [address]- 5597 May, [facility] [place] [facility] [address] [id number] [place] [address]- 8051 Apr, [facility] [place] [facility] [address] [id number] [place] [address]- 5237 Jan, [facility] [place] [facility] [address] [id number] [place] [address]- 4330 Jun, [facility] [place] [facility] [address] [id number] [place] [address]- 4214 20 Jun, 2010 [facility] [place] [facility] [address] [id number] [place] [address]- 9467 15 Jun, 2010 [facility] [place] [facility] [address] [id number] [place] [address]- 2546 15 Jun, 2010 [facility] [place] [facility] [address] [id number] [place] [address] 2545 15 Jun, 2010 [facility] [place] [facility] [address] [id number] [place] [address] 2546 13 Jun, 2010 [facility] [place] [facility] [address] [id number] [place] [address] 2547 13 Jun, 2010 [facility] [place] [facility] [address] [id number] [place] [address]- 0346 Apr, [facility] [address] [id number] [place] [address]- 2028 Feb, [facility] [place] [facility] [address] [id number] [place] [address]- 0436 15 Aug, 2009 [facility] [place] [facility] [address] [facility] [id number] [place] [address] 2546 18 Jul, 2009 [facility] [place] [facility] [address] [id number], [place] [address] 2548 Jul, [facility] [address] [id number] [place] [address]- 7857 29 Jun, 2009 [facility] [place] [facility] [address] [id number] [place] [address]- 0275 Jun, [facility] [place] [facility] [address] [id number] [place] [address]- 1457 Jun, [facility] [place] [facility] [address] [id number], [place] [address]- 0760 22 Jun, 2009 [facility] [address] [id number], [place] [address]- 6407 16 Jun, 2009 [facility] [place] [facility] [address] [facility] [id number], [place] [address]- 0250 Jun, [facility] [place] [facility] [address] [facility] [id number], [place] [address]- 6041 Jun, [facility] [place] [facility] [address] [id number], [place] [address]- 2945 30 May, 2009 [facility] [place] [facility] [address] [id number] [place] [address] 2545 27 May, 2009 [facility] [place] [facility] [address] [facility] [id number], [place] [address]- 2543 23 May, 2009 [facility] [place] [facility] [address] [facility] [id number], [place] [address]- 2541 18 May, 2009 [facility] [place] [facility] [address] [id number] [place] [address]- 2546 May, [facility] [address] [id number], [place] [address]- 9218 May, [facility] [address] [id number], [place] [address]- 2546 May, [facility] [address] [id number], [place] [address]- 9694 Apr, [facility] [address] [id number], [place] [address]- 2546 Apr, [facility] [address] [id number], [place] [address]- 9167 Jan, [facility] [address] [id number], [place] [address]- 2296 Oct, IMMUNIZATIONS No Known Immunizations SOCIAL HISTORY Never Assessed REASON FOR VISIT Results Request PLAN OF CARE VITAL SIGNS [...]
--- OUTSIDE RECORDS SUMMARY | 2018-11-09 13:05 | XMS REPORT ---
Author Author PRABHA HILL [facility] Address [address] [place] [address] Care Team Providers Care Residential Substance Abuse Counselor Name Role Phone PRABHA HILL Unavailable PROBLEMS Type Condition ICD9-CM Code [id number] Code Onset Dates Condition Status SNOMED Code Problem Hypoglycemia E16.2 Active 346177400 Problem Hallucinations R44.3 Active 8684575 Problem Unsteady gait R26.81 Active 61662848 Problem 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 Active 660242593846096 Problem Dysuria R30.0 Active 21570598 Problem Anxiety F41.9 Active 50861235 Problem Dementia in other diseases classified elsewhere without behavioral disturbance F02.80 Active 584176009 Problem Other frontotemporal dementia G31.09 Active 153095619 Problem Parkinsons disease G20 Active 11463595 Problem Episodic cluster headache, not intractable G44.019 Active 395245090 Problem Neurogenic orthostatic hypotension G90.3 Active 896045951 Problem Mixed stress and urge urinary incontinence N39.46 Active 140431784 Problem 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 Active 358294475 Problem Essential hypertension I10 Active 99401493 Problem Type 2 diabetes mellitus with unspecified complications E11.8 Active 53976792 Problem PVD (peripheral vascular disease) I73.9 Active 915987336 Problem Dysthymia F34.1 Active 07210583 Problem Polydipsia R63.1 Active 35228346 Problem Coronary artery disease involving [place] coronary artery of [place] heart without angina pectoris I25.10 Active 6596415992822 Problem Hypothyroidism (acquired) E03.9 Active 233426396 Problem Hyperlipemia, mixed E78.2 Active 384747804 Problem Dementia with Lewy bodies G31.83 Active 447885758 Problem Neuropathy G62.9 Active 118897791 Problem Hypernatremia E87.0 Active 98215603 ALLERGIES No Information ENCOUNTERS Encounter Location Date Diagnosis [facility] [id number] [place] [address] 67090- 4184 Feb, Left shoulder pain M25.512 [facility] [address] 39983- 9158 Feb, 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 [facility] [address] 30694- 8902 Jan, Left shoulder pain M25.512 [facility] [address] 29538- 3570 Dec, Parkinsons disease G20 [place] [address] 20634- 7895 Dec, Left shoulder pain M25.512 [facility] [id number] [place] [address] 25991- 4067 Dec, Type 2 diabetes mellitus with unspecified complications E11.8 ; Anxiety F41.9 ; Therapeutic drug monitoring Z51.81 and Analgesic use Z79.899 [facility] [id number] [place] [address] 43962- 0633 November, [facility] [address] 91922- 5147 November, [facility] [id number] [place] [address] 29508- 7213 November, Left shoulder pain M25.512 [facility] [id number] [place] [address] 84778- 8053 Oct, [facility] [id number] [place] [address] 44243 -1569 Oct, [facility] [id number] [place] [address] 47714- 9823 Oct, Parkinsons disease G20 [facility] [id number] [place] [address] 92743 -6358 Oct, Acute cystitis without hematuria N30.00 and Viral upper respiratory tract infection J06.9 [facility] [address] [address] Oct, [facility] [id number] [place] [address] 29146- 2943 Oct, Type 2 diabetes mellitus with unspecified complications E11.8 [facility] [id number] [place] [address] 75086- 7217 Oct, Left shoulder pain M25.512 [facility] [id number] [place] [address] 46781- 1503 Oct, Type 2 diabetes mellitus with unspecified complications E11.8 ; Dysuria R30.0 and Neurogenic orthostatic hypotension G90.3 [place] [id number] [place] [address] 26342- 8905 Sep, Left shoulder pain M25.512 [facility] [id number] [place] [address] 58801- 1589 Sep, Medicare annual wellness visit, initial Z00.00 ; Parkinsons disease G20 ; Type 2 diabetes mellitus with unspecified complications E11.8 ; Essential hypertension I10 ; Coronary artery disease involving [place] coronary artery of [place] heart without angina pectoris I25.10 ; Hypothyroidism (acquired ) E03.9 ; PVD (peripheral vascular disease) I73.9 ; Dysthymia F34.1 ; Hyperlipemia, mixed E78.2 ; Neuropathy G62.9 ; Encounter for immunization Z23 ; Encounter for other screening for malignant neoplasm of breast Z12.39 and Mixed stress and urge urinary incontinence N39.46 [facility] [address], [place] [address] 9438 Aug, Parkinsons disease G20 [facility] [id number] [place] [address] 90920- 6784 Aug, Type 2 diabetes mellitus with unspecified complications E11.8 ; Left shoulder pain M25.512 and Hypotensive episode I95.9 [facility] [id number] [place] [address] 43952- 4785 09 Aug, 2017 Coronary artery disease involving [place] coronary artery of [place] heart without angina pectoris I25.10 [facility] [id number] [place] [address] 19543- 8328 07 Aug, 2017 Type 2 diabetes mellitus with unspecified complications E11.8 [facility] [facility] [address] 59824- 3965 Jul, Callus of foot L84 [facility] [address] 60657- 6347 Jul, [place] [facility] [address] 91085- 6854 Jul, Callus of foot L84 ; Episodic cluster headache, not intractable G44.019 ; Type 2 diabetes mellitus with unspecified complications E11.8 and Parkinsons disease G20 [address] 53053- 2069 Jul, [place] [address] 85308- 8873 Jul, [address] 63527- 0782 Jun, Type 2 diabetes mellitus with unspecified complications E11.8 ; Unsteady gait R26.81 ; Forgetfulness R68.89 and Hallucinations R44.[address] 06381- 2304 Jun, [address] 57320- 8460 Jun, Left shoulder pain M25.[address] 64127- 0664 May, Hypernatremia E87.0 and Polydipsia R63.[address] 03382- 2596 08 May, 2017 Hypernatremia E87.0 and Polydipsia R63.1 [facility] [id number] [place] [address] 28778- 4989 08 May, 2017 Hypoglycemia E16.2 ; Dysuria R30.0 ; Unsteadiness on feet R26.81 ; Forgetfulness R68.89 ; Type 2 diabetes mellitus with unspecified complications E11.8 and Yeast infection involving the vagina and surrounding area B37.3 [facility] [id number] [place] [address] 43901- 6719 May, Acute cystitis without hematuria N30.00 [facility] [id number] [place] [address] 14250 -9515 Apr, Dysuria R30.0 and Acute cystitis without hematuria N30.00 [facility] [id number] [place] [address] 63094- 5966 Apr, Hypernatremia E87.0 and Polydipsia R63.1 [facility] [id number] [place] [address] 93257- 7722 Apr, Vertigo R42 and Type 2 diabetes mellitus with unspecified complications E11.8 [facility] [facility] [address] 31950- 8198 20 Mar, 2017 [facility] [id number] [place] [address] 90822- 3820 19 Mar, 2017 Left shoulder pain M25.512 [facility] [id number] [place] [address] 46245- 4592 13 Mar, 2017 Vertigo R42 [facility] [id number] [place] [address] 86548- 9432 12 Mar, 2017 Polydipsia R63.1 [place] [address] 36052- 6007 12 Mar, 2017 Polydipsia R63.1 [facility] [id number] [place] [address] 02260- 4191 11 Mar, 2017 Vertigo R42 [facility] [address] 69437- 3139 07 Mar, 2017 Type 2 diabetes mellitus with unspecified complications E11.8 ; Vertigo R42 ; Polydipsia R63.1 ; Polyuria R35.8 ; Hypothyroidism ( acquired) E03.9 ; Abnormal urinalysis R82.90 and Dysthymia F34.1 [place] [address] 71843- 3094 05 Mar, 2017 Coronary artery disease of [place] artery with stable angina pectoris, unspecified whether [place] or transplanted heart I25.118 ; Systolic CHF, chronic I50.22 ; Hyperlipemia, mixed E78.2 and Essential hypertension I10 [facility] [address] [id number] Feb, Dental caries K02.9 [place] [address] 63875- 1444 Feb, Type 2 diabetes mellitus with diabetic neuropathy, unspecified E11.40 [place] [address] 01012- 2559 23 Dec, 2016 Left shoulder pain M25.512 [place] [address] 38343- 0109 16 Dec, 2016 [place] [address] 28053- 1491 15 Dec, 2016 Type 2 diabetes mellitus with unspecified complications E11.8 [facility] [address] [id number] Dec, Dental examination Z01.20 [facility] [address] 49854- 3125 08 Dec, 2016 Type 2 diabetes mellitus with diabetic neuropathy, unspecified E11.40 [facility] [address] 81590- 7997 07 Dec, 2016 [facility] [address] 32190- 1085 Dec, Type 2 diabetes mellitus with diabetic neuropathy, unspecified E11.40 [facility] [id number] [place] [address] 77466- 6673 November, Left shoulder pain M25.512 [facility] [id number] [place] [address] 36093- 3476 November, [place] [address] 27504- 0330 November, Type 2 diabetes mellitus with unspecified complications E11.8 and Dysuria R30.0 [facility] [id number] [place] [address] 94745- 5611 Oct, Left shoulder pain M25.512 [place] [address] 64155- 4541 Sep, Left shoulder pain M25.512 [facility] [address] 39385- 1793 Sep, Pre-op testing Z01.818 [facility] [id number] [place] [address] 75341- 4689 Sep, Pre-op testing Z01.818 [facility] [id number] [place] [address] 02715- 7920 Sep, Pre-op testing Z01.818 [facility] [id number] [place] [address] 05608- 2676 Sep, Pre-op testing Z01.818 and Mouth pain K13.79 [facility] [id number] [place] [address] 60196- 4601 Sep, Left shoulder pain M25.512 [facility] [id number] [place] [address] 39111- 7646 Aug, Other eczema L30.8 [facility] [id number] [place] [address] 21696- 8376 Aug, PVD (peripheral vascular disease) I73.9 ; Type 2 diabetes mellitus with unspecified complications E11.8 ; Acute cystitis with hematuria N30.01 ; Other eczema L30.8 ; Dysuria R30.0 and Left shoulder pain M25.512 [facility] [address] 37741 -4836 Jul, Otalgia of right ear H92.01 and Blood in ear canal, right H92.21 [place] [address] 63242- 8574 Jul, Arthralgia, unspecified joint M25.50 ; PVD (peripheral vascular disease) I73.9 and Neuropathy G62.9 [place] [address] 76253- 0956 Jul, [place] [address] 28251- 9539 Jun, Medicare annual wellness visit, initial Z00.00 ; Cervicalgia M54.2 ; Radiculopathy of cervical region M54.12 ; Encounter for immunization Z23 ; Type 2 diabetes mellitus with unspecified complications E11.8 and Essential hypertension I10 [place] [address] 00822- 9471 Jun, [place] [address] 74826- 9820 14 May, 2016 Hypothyroidism (acquired) E03.9 [place] [address] 40279- 7929 May, Dysuria R30.0 ; Essential hypertension I10 ; Hypothyroidism (acquired) E03.9 and PVD (peripheral vascular disease) I73.9 [facility] [address] 98298 -5710 03 May, 2016 Burning with urination R30.0 and Acute cystitis with hematuria N30.01 [place] [address] 63673- 4758 May, Dental examination Z01.20 [facility] [id number] [place] [address] 90253- 2215 May, Hypothyroidism (acquired) E03.9 [facility] [id number] [place] [address] 86905- 6551 Feb, [facility] [id number] [place] [address] 52246- 3655 Feb, 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 ; PVD ( peripheral vascular disease) I73.9 ; Type 2 diabetes mellitus with unspecified complications E11.8 and Essential hypertension I10 [facility] [id number] [place] [address] 42441- 0461 Jan, [facility] [id number] [place] [address] 02788- 7202 Jan, Hypothyroidism (acquired) E03.9 [facility] [id number] [place] [address] 75326- 5414 Jan, [facility] [id number] [place] [address] 77984- 5042 Jan, [facility] [id number] [place] [address] 72840- 2201 Jan, Type 2 diabetes mellitus with unspecified complications E11.8 ; 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 and Essential ( primary) hypertension I10 [facility] [id number] [place] [address] 41091- 8104 Jan, Type 2 diabetes mellitus with unspecified complications E11.8 ; 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 ; Essential hypertension I10 and PVD (peripheral vascular disease) I73.9 [facility] [id number] [place] [address] 96582- 3006 Jan, [facility] [id number] [place] [address] 04260- 2105 Jan, [facility] [id number] [place] [address] 51362- 6216 15 Jan, 2016 [place] [address] 14311- 5795 Jan, Weakness R53.1 ; Fatigue, unspecified type R53.83 ; PVD ( peripheral vascular disease) I73.9 ; Acute osteomyelitis of other site M86.18 ; Type 2 diabetes mellitus with diabetic neuropathy, unspecified E11.40 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 [place] [address] 28231- 6498 30 Dec, 2015 [place] [address] 98973- 0942 Dec, Type 2 diabetes mellitus with unspecified complications E11.8 [place] [address] 22378- 9036 Dec, [place] [address] 54822- 9549 Dec, Pressure ulcer, unspecified pressure ulcer stage L89.90 and Type 2 diabetes mellitus with unspecified complications E11.8 [facility] [id number] [place] [address] 12942 -6703 Dec, Toe infection L08.9 [facility] [id number] [place] [address] 70887- 3241 November, Dental caries K02.9 [facility] [facility] [id number] [place] [address] 98410- 4550 November, [facility] [facility] [id number] [place] [address] 06157- 8689 November, Dental examination Z01.20 [place] [address] 13854- 3084 28 Sep, 2015 Lipoma of torso D17.1 and Thoracic neuritis M54.14 [place] [address] 77260- 5272 Sep, [facility] [id number] [place] [address] 12537- 8283 Aug, [facility] [id number] [place] [address] 28580 -7215 Jul, Dysuria R30.0 and UTI (urinary tract infection) N39.0 [facility] [address] 33006- 0857 Jun, Left shoulder pain M25.512 [facility] [id number] [place] [address] 25380- 3623 May, Shoulder pain, left M25.512 [facility] [facility] [id number] [place] [address] 70476- 0019 May, [facility] [address] 20961- 5060 May, [facility] [id number] [place] [address] 50660- 8896 May, Left shoulder pain M25.512 [facility] [id number] [place] [address] 36184- 6647 May, [facility] [id number] [place] [address] 53464- 2790 Apr, Encounter for immunization Z23 [facility] [id number] [place] [address] 91426- 6971 Apr, Urinary tract infection, site not specified N39.0 ; Hypotension, unspecified I95.9 ; Type 2 diabetes mellitus with unspecified complications E11.8 and Generalized edema R60.1 [facility] [id number] [place] [address] 80988- 3682 Apr, [facility] [id number] [place] [address] 12214- 0193 Mar, Diabetes with other specified manifestations, type II or unspecified type, not stated as uncontrolled 250.80 [facility] [address], [place] [address]- 4606 Feb, Gout 274.9 and Diabetes 250.00 [facility] [id number] [place] [address] 35501- 5527 Jan, [facility] [id number] [place] [address] 25615- 3478 November, CAD (coronary artery disease) 414.00 and CHF (congestive heart failure) 428.0 [facility] [id number] [place] [address] 82358- 6506 Oct, [facility] [id number] [place] [address] 92007- 7998 Oct, [facility] [id number] [place] [address] 05496- 1265 Oct, [facility] [id number] [place] [address] 53847- 6333 Sep, [facility] [address], [place] [address]- 8526 Sep, [facility] [id number] [place] [address] 76659- 8958 Sep, [facility] [address], [place] [address]- 1218 Sep, [facility] [address], [place] [address]- 5132 Aug, [facility] [address], [place] [address]- 1347 Aug, [facility] [id number] [place] [address] 98732- 8418 Aug, [facility] [address] 8647 Aug, [facility] [id number] [place] [address] 82418- 0458 Aug, [facility] [place] [facility] [address] [id number] [place] [address]- 5561 Aug, [facility] [place] [facility] [address] [id number] [place] [address]- 7232 Aug, [facility] [place] [facility] [address] [id number] [place] [address]- 2469 Aug, [facility] [place] [facility] [address] [id number] [place] [address]- 7109 Jul, [facility] [place] [facility] [address] [id number] [place] [address]- 6652 Jul, [facility] [place] [facility] [address] [id number] [place] [address]- 4439 Jul, [facility] [place] [facility] [address] [id number] [place] [address]- 3602 Jul, [facility] [place] [facility] [address] [id number] [place] [address]- 2441 Jul, [facility] [place] [facility] [address] [id number] [place] [address]- 3990 Jul, [facility] [place] [facility] [address] [facility] [place] [id number] [place] [address]- 0453 Jul, [facility] [place] [facility] [address] [id number] [place] [address]- 3182 Jul, [facility] [place] [facility] [address] [id number] [address]- 9593 Jul, [facility] [place] [facility] [address] [id number], [place] [address]- 8822 Jul, [facility] [place] [facility] [address] [id number] [place] [address]- 0777 Jun, [facility] [place] [facility] [address] [id number] [place] 0739 Jun, [facility] [place] [facility] [address] [id number] [place] [address]- 1297 Jun, [facility] [place] [facility] [address] [id number] [place] [address]- 1499 Jun, [facility] [place] [facility] [address] [id number] [place] [address]- 6281 Jun, [facility] [place] [facility] [address] [id number] [place] [address]- 4742 Jun, [facility] [place] [facility] [address] [id number] [place] [address]- 1537 Jun, [facility] [place] [facility] [address] [id number] [place] [address]- 5657 Jun, [facility] [place] [facility] [address] [id number] [place] [address]- 7023 Jun, [facility] [place] [facility] [address] [id number] [place] [address]- 9830 Jun, [facility] [place] [facility] [address] [id number] [place] [address]- 0102 May, [facility] [place] [facility] [address] [id number] [place] [address]- 0617 May, [facility] [place] [facility] [address] [id number] [place] [address]- 6801 18 Mar, 2014 [facility] [place] [facility] [address] [id number] [place] [address]- 7112 18 Mar, 2014 [facility] [place] [facility] [address] [id number] [place] [address]- 0399 10 Mar, 2014 [facility] [place] [facility] [address] [id number] [place] [address]- 2546 Mar, [facility] [place] [facility] [address] [id number] [place] [address]- 9249 Feb, [facility] [place] [facility] [address] [id number] [place] [address]- 9800 Feb, [facility] [place] [facility] [address] [id number] [place] [address]- 2593 Feb, [facility] [place] [facility] [address] [id number] [place] [address]- 2199 Jan, [facility] [place] [facility] [address] [id number] [place] [address] Jan, [facility] [place] [facility] [address] [id number] [place] [address] Jan, [facility] [place] [facility] [address] [id number] [place] [address] Jan, [facility] [place] [facility] [address] [id number] [place] [address] Jan, [facility] [place] [facility] [address] [id number] [place] [address] Jan, [facility] [place] [facility] [address] [id number] [place] [address] Jan, [facility] [place] [facility] [address] [id number] [place] [address] Jan, [facility] [place] [facility] [address] [id number] [place] [address] Jan, [facility] [place] [facility] [address] [id number] [place] [address] Jan, [facility] [place] [facility] [address] [id number] [place] [address] Dec, [facility] [place] [facility] [address] [id number] [place] [address] Dec, [facility] [place] [facility] [address] [id number] [place] [address] November, [facility] [place] [facility] [address] [id number] [place] [address] November, [facility] [place] [facility] [address] [id number] [id number] [address] November, [facility] [place] [facility] [address] [id number] [place] [address] November, [facility] [place] [facility] [address] [id number] [place] [address] November, [facility] [place] [facility] [address] [id number] [place] [address] November, [facility] [place] [facility] [address] [id number] [place] [address] November, [facility] [place] [facility] [address] [id number] [place] [address] Oct, [facility] [place] [facility] [address] [id number] [place] [address] Oct, [facility] [place] [facility] [address] [id number] [place] [address] Sep, [facility] [place] [facility] [address] [id number] [place] [address] Sep, [facility] [place] [facility] [address] [id number] [place] [address] Sep, [facility] [place] [facility] [address] [id number] [place] [address] Sep, [facility] [place] [facility] [address] [id number] [place] [address] Sep, [facility] [place] [facility] [address] [id number] [place] [address] Sep, [facility] [place] [facility] [address] [id number] [place] [address] Sep, [facility] [place] [facility] [address] [id number] [place] [address] Sep, [facility] [place] [facility] [address] [id number] [place] [address] Sep, [facility] [place] [facility] [address] [id number] [place] [address] Sep, [facility] [place] [facility] [address] [id number] [place] [address] Aug, [facility] [place] [facility] [address] [id number] [place] [address] Aug, [facility] [place] [facility] [address] [id number] [place] [address] Jul, [facility] [place] [facility] [address] [id number] [place] [address] Jul, [facility] [place] [facility] [address] [id number] [place] [address] 3568 Jul, [facility] [place] [facility] [address] [id number] [place] [address] 1521 Jul, [facility] [place] [facility] [address] [id number] [place] [address] 6[address] Jul, [facility] [place] [facility] [address] [id number] [place] [address] 89[address] Jul, [facility] [place] [facility] [address] [id number], [place] [address] Jun, [facility] [place] [facility] [address] [id number], [place] [address] Jun, [facility] [place] [facility] [address] [id number], [place] [address] 8679 Jun, [facility] [place] [facility] [address] [id number] [place] [address]- 6294 Jun, [facility] [place] [facility] [address] [id number] [place] [address]- 0062 May, [facility] [place] [facility] [address] [id number], [place] [address] May, [facility] [place] [facility] [address] [id number], [place] [address] 8[address] May, [facility] [place] [facility] [address] [id number] [place] [address]- 9660 May, [facility] [place] [facility] [address] [id number] [place] [address]- 4324 May, [facility] [place] [facility] [address] [id number] [place] [address]- 9422 Apr, [facility] [place] [facility] [address] [id number] [place] [address]- 3[address] Apr, [facility] [place] [facility] [address] [id number] [place] [address]- 6609 Apr, [facility] [place] [facility] [address] [id number] [place] [address]- 1819 Apr, [facility] [place] [facility] [address] [id number] [place] [address]- 5[address] Apr, [facility] [place] [facility] [address] [id number] [place] [address]- 9339 Apr, [facility] [place] [facility] [address] [id number] [place] [address]- 5419 Apr, [facility] [place] [facility] [address] [id number] [place] [address]- 9131 Apr, [facility] [place] [facility] [address] [id number], [place] [address]- 0[address] Apr, [facility] [place] [facility] [address] [id number], [place] [address] 9[address] Apr, [facility] [place] [facility] [address] [id number] [place] [address]- 6851 Apr, [facility] [place] [facility] [address] [id number], [place] [address]- 1747 Apr, [facility] [place] [facility] [address] [id number] [place] [address]- 8184 Mar, [facility] [place] [facility] [address] [id number] [place] [address]- 254 Mar, [facility] [place] [facility] [address] [id number] [place] [address]- 1966 Feb, [facility] [place] [facility] [address] [id number] [place] [address]- 2546 Jan, [facility] [place] [facility] [address] [id number] [place] [address]- 0906 Jan, [facility] [place] [facility] [address] [id number] [place] [address]- 2546 Jan, [facility] [place] [facility] [address] [id number] [place] [address]- 2936 Jan, [facility] [place] [facility] [address] [id number] [place] [address]- 2000 Dec, [facility] [place] [facility] [address] [id number] [place] [address]- 1554 Dec, [facility] [place] [facility] [address] [id number] [place] [address]- 2266 Dec, [facility] [place] [facility] [address] [id number] [place] [address]- 0953 Dec, [facility] [place] [facility] [address] [id number] [place] [address] Dec, [facility] [place] [facility] [address] [id number] [place] [address]- 8956 Dec, [facility] [place] [facility] [address] [id number] [place] [address]- 2547 Dec, [facility] [place] [facility] [address] [id number] [place] [address]- 9986 November, [facility] [place] [facility] [address] [id number] [place] [address]- 2546 November, [facility] [place] [facility] [address] [id number] [place] [address]- 8754 November, [facility] [address] [id number] [place] [address]- 9993 Oct, [facility] [place] [facility] [address] [id number] [place] [address]- 9683 Oct, [facility] [place] [facility] [address] [id number] [place] [address]- 7600 Oct, [facility] [place] [facility] [address] [id number] [place] [address]- 0352 Oct, [facility] [place] [facility] [address] [id number] [place] [address]- 2264 Oct, [facility] [place] [facility] [address] [id number] [place] [address]- 5027 Sep, [facility] [place] [facility] [address] [id number] [place] [address]- 5589 Sep, [facility] [place] [facility] [address] [id number] [place] [address]- 8587 Sep, [facility] [place] [facility] [address] [id number] [place] [address]- 0259 Sep, [facility] [place] [facility] [address] [id number] [place] [address]- 8826 Aug, [facility] [place] [facility] [address] [id number], [place] [address] 3[address] Aug, [facility] [place] [facility] [address] [id number], [place] [address]- 2856 Aug, [facility] [place] [facility] [address] [id number] [place] [address]- 9206 Aug, [facility] [place] [facility] [address] [id number] [place] [address]- 3429 Jul, [facility] [place] [facility] [address] [id number] [place] [address]- 0519 Jul, [facility] [place] [facility] [address] [id number] [place] [address]- 3648 Jun, [facility] [place] [facility] [address] [id number] [place] [address]- 4425 Jun, [facility] [place] [facility] [address] [id number] [place] [address]- 7616 Jun, [facility] [place] [facility] [address] [id number] [place] [address]- 2991 Jun, [facility] [place] [facility] [address] [id number] [place] [address]- 2703 May, [facility] [place] [facility] [address] [id number] [place] [address], [place] [address]- 9262 May, [facility] [place] [facility] [address] [facility] [place] [place] [id number] [place] [address]- 9665 May, [facility] [place] [facility] [address] [facility] [place] [id number] [place] [address]- 3267 May, [facility] [place] [facility] [address] [facility] [place] [place] [id number] [place] [address]- 9391 Apr, [facility] [place] [facility] [address] [facility] [place] [place] [id number] [place] [address]- 9314 Apr, [facility] [place] [facility] [address] [facility] [place] [id number] [place] [address]- 9477 Apr, [facility] [place] [facility] [address] [facility] [place] [place] [id number] [place] [address]- 0004 Apr, [facility] [place] [facility] [address] [facility] [place] [place] [id number] [place] [address]- 3316 Apr, [facility] [place] [facility] [address] [facility] [place] [id number] [place] [address]- 2496 Apr, [facility] [place] [facility] [address] [facility] [place] [place] [id number] [place] [address]- 0514 Apr, [facility] [place] [facility] [address] [facility] [place] [place] [id number] [place] [address]- 4176 Apr, [facility] [place] [facility] [address] [id number] [place] [address]- 7738 Apr, [facility] [place] [facility] [address] [id number] [place] [address]- 9264 Apr, [facility] [place] [facility] [address] [id number] [place] [address]- 0893 Feb, [facility] [place] [facility] [address] [id number] [place] [address]- 2296 Feb, [facility] [place] [facility] [address] [id number] [place] [address]- 2833 Jan, [facility] [place] [facility] [address] [id number] [place] [address]- 9771 Jan, [facility] [place] [facility] [address] [id number] [place] [address]- 6060 Jan, [facility] [place] [facility] [address] [id number] [place] [address]- 3279 Jan, [facility] [place] [facility] [address] [id number] [place] [address]- 0914 Jan, [facility] [place] [facility] [address] [id number] [place] [address]- 7826 Jan, [facility] [place] [facility] [address] [id number] [place] [address]- 8437 Dec, [facility] [place] [facility] [address] [id number], [place] [address]- 4480 November, [facility] [place] [facility] [address] [id number] [place] [address]- 8823 November, [facility] [place] [facility] [address] [id number] [place] [address]- 8016 November, [facility] [place] [facility] [address] [id number] [place] [address]- 2999 Sep, [facility] [place] [facility] [address] [id number] [place] [address]- 8214 Sep, [facility] [address] [id number] [place] [address]- 6884 Sep, [facility] [place] [facility] [address] [id number] [place] [address]- 0136 Sep, [facility] [place] [facility] [address] [id number] [place] [address]- 1286 Sep, [facility] [place] [facility] [address] [id number] [place] [address]- 8559 Sep, [facility] [place] [facility] [address] [id number] [place] [address]- 3266 Aug, [facility] [place] [facility] [address] [id number] [place] [address]- 9176 Aug, [facility] [address] [facility] [place] [place] [id number] [place] [address]- 4477 Aug, [facility] [place] [facility] [address] [id number] [place] [address]- 5182 Jul, [facility] [place] [facility] [address] [id number] [place] [address]- 4041 Jul, [facility] [place] [facility] [address] [facility] [place] [place] [id number] [place] [address]- 0147 Jul, [facility] [place] [facility] [address] [facility] [place] [place] [id number] [place] [address]- 6790 Jul, [facility] [place] [facility] [address] [id number] [place] [address]- 7286 Jun, [facility] [place] [facility] [address] [id number] [place] [address]- 0873 Jun, [facility] [place] [facility] [address] [facility] [place] [place] [id number] [place] [address]- 6366 Jun, [facility] [place] [facility] [address] [facility] [id number] [place] [address]- 3214 Jun, [facility] [place] [facility] [address] [id number] [place] [address]- 4211 Jun, [facility] [place] [facility] [address] [id number] [place] [address]- 3746 Jun, [facility] [place] [facility] [address] [id number] [place] [address] 2546 May, [facility] [place] [facility] [address] [id number] [place] [address]- 9286 May, [facility] [place] [facility] [address] [id number] [place] [address] 2548 May, [facility] [place] [facility] [address] [id number] [place] [address]- 8573 Apr, [facility] [place] [facility] [address] [id number] [place] [address]- 4420 Jan, [facility] [place] [facility] [address] [id number] [place] [address]- 1294 Jun, [facility] [place] [facility] [address] [id number] [place] [address]- 5876 Jun, [facility] [place] [facility] [address] [id number] [place] [address]- 2540 Jun, [facility] [place] [facility] [address] [id number] [place] [address] 2546 15 Jun, 2010 [facility] [place] [facility] [address] [id number] [place] [address] 2546 15 Jun, 2010 [facility] [place] [facility] [address] [id number] [place] [address] 2546 Jun, [facility] [place] [facility] [address] [id number] [place] [address] 2546 Jun, [facility] [place] [facility] [address] [id number] [place] [address] 2546 Apr, [facility] [place] [facility] [address] [id number] [place] [address]- 1820 17 Feb, 2010 [facility] [address] [id number] [place] [address]- 4847 15 Aug, 2009 [facility] [place] [facility] [address] [id number] [place] [address]- 5566 18 Jul, 2009 [facility] [address] [facility] [place] [place] [id number] [place] [address] 2546 Jul, [facility] [address] [id number], [place] [address]- 0870 29 Jun, 2009 [facility] [address] [id number] [place] [address]- 7274 Jun, [facility] [address] [id number] [place] [address]- 9737 Jun, [facility] [address] [facility] [id number], [place] [address]- 1480 Jun, [facility] [place] [facility] [address] [id number], [place] [address]- 8122 16 Jun, 2009 [facility] [address] [id number], [place] [address]- 1343 Jun, [facility] [place] [facility] [address] [facility] [place] [id number], [place] [address]- 8865 Jun, [facility] [place] [facility] [address] [id number], [place] [address]- 0785 30 May, 2009 [facility] [place] [facility] [address] [id number], [place] [address]- 6040 27 May, 2009 [facility] [place] [facility] [address] [id number], [place] [address]- 6215 May, [facility] [place] [facility] [address] [facility] [place] [place] [id number], [place] [address]- 7426 18 May, 2009 [facility] [place] [facility] [address] [facility] [place] [id number], [place] [address]- 2107 May, [facility] [place] [facility] [address] [facility] [place] [id number] [place] [address]- 2546 May, [facility] [address] [facility] [place] [place] [id number], [place] [address]- 2546 May, [facility] [address] [id number], [place] [address]- 2546 Apr, [facility] [address] [facility] [place] [place] [id number], [place] [address]- 2546 Apr, [facility] [address] [id number], [place] [address]- 2546 Jan, [facility] [address] [facility] [place] [place] [id number], [place] [address]- 2546 Oct, IMMUNIZATIONS No Known Immunizations SOCIAL HISTORY Never Assessed REASON FOR VISIT Controlled Med Refill 12/08/17 PLAN OF CARE VITAL SIGNS MEDICATIONS Medication [...]
--- OUTSIDE RECORDS SUMMARY | 2018-11-09 13:06 | XMS REPORT ---
Author Author PRABHA HILL [facility] Address [address] [place] [address] Care Team Providers Care Chamber Worker Name Role Phone PRABHA HILL Unavailable PROBLEMS Type Condition ICD9-CM Code KVC95-SF Code Onset Dates Condition Status SNOMED Code Problem Hypoglycemia E16.2 Active 145225466 Problem Unsteady gait R26.81 Active 52596783 Problem Hallucinations R44.3 Active 5490899 Problem 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 Active 317899852438852 Problem Dysuria R30.0 Active 03652326 Problem Anxiety F41.9 Active 59382001 Problem Dementia in other diseases classified elsewhere without behavioral disturbance F02.80 Active 825437819 Problem Dementia with Lewy bodies G31.83 Active 543422088 Problem Episodic cluster headache, not intractable G44.019 Active 655599719 Problem Parkinsons disease G20 Active 33412913 Problem Neurogenic orthostatic hypotension G90.3 Active 784191719 Problem Mixed stress and urge urinary incontinence N39.46 Active 772285373 Problem 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 Active 855453489 Problem Essential hypertension I10 Active 64039876 Problem Type 2 diabetes mellitus with unspecified complications E11.8 Active 67337051 Problem PVD (peripheral vascular disease) I73.9 Active 978954814 Problem Polydipsia R63.1 Active 32390555 Problem Dysthymia F34.1 Active 90248539 Problem Hypothyroidism (acquired) E03.9 Active 389492194 Problem Hyperlipemia, mixed E78.2 Active 353913050 Problem Coronary artery disease involving [place] coronary artery of [place] heart without angina pectoris I25.10 Active 1979057487301 Problem Neuropathy G62.9 Active 530033430 Problem Hypernatremia E87.0 Active 19421914 ALLERGIES Substance Reaction Event Type Date Status Sulfamethoxazole-Trimethoprim Unknown Drug Allergy Oct, Active Protamine Sulfate Unknown Drug Allergy Oct, Active Penicillin V Potassium Unknown Drug Allergy Oct, Active Cipro lowers blood sugar Drug Allergy Oct, Active ENCOUNTERS Encounter Location Date Diagnosis [facility] [address] 12378- 1837 Feb, Left shoulder pain M25.512 [facility] [id number] [place] [address] 29071- 0092 Feb, 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 [facility] [address] 22803- 1744 Jan, Left shoulder pain M25.512 [place] [address] 20647- 6706 Dec, Parkinsons disease G20 [place] [address] 21915- 8629 Dec, Left shoulder pain M25.512 [place] [address] 50077- 1318 Dec, Type 2 diabetes mellitus with unspecified complications E11.8 ; Anxiety F41.9 ; Therapeutic drug monitoring Z51.81 and Analgesic use Z79.899 [place] [address] 48626- 3231 November, [facility] [id number] [place] [address] 57155- 7616 November, [facility] [id number] [place] [address] 90222- 2788 November, Left shoulder pain M25.512 [facility] [id number] [place] [address] 13030- 3773 Oct, [facility] [address] 82847 -0580 Oct, [facility] [id number] [place] [address] 56848- 6041 Oct, Parkinsons disease G20 [facility] [address] [address] 18 Oct, 2017 Acute cystitis without hematuria N30.00 and Viral upper respiratory tract infection J06.9 [place] [address] [place] [address] 31962- 6167 Oct, [place] [id number] [place] [address] 12386- 6597 Oct, Type 2 diabetes mellitus with unspecified complications E11.8 [place] [id number] [place] [address] 91805- 0737 Oct, Left shoulder pain M25.512 [place] [id number] [place] [address] 86887- 8931 Oct, Type 2 diabetes mellitus with unspecified complications E11.8 ; Dysuria R30.0 and Neurogenic orthostatic hypotension G90.3 [place] [id number] [place] [address] 35662- 5939 Sep, Left shoulder pain M25.512 [facility] [id number] [place] [address] 56141- 1432 12 Sep, 2017 Medicare annual wellness visit, initial Z00.00 ; Parkinsons disease G20 ; Type 2 diabetes mellitus with unspecified complications E11.8 ; Essential hypertension I10 ; Coronary artery disease involving [place] coronary artery of [place] heart without angina pectoris I25.10 ; Hypothyroidism (acquired ) E03.9 ; PVD (peripheral vascular disease) I73.9 ; Dysthymia F34.1 ; Hyperlipemia, mixed E78.2 ; Neuropathy G62.9 ; Encounter for immunization Z23 ; Encounter for other screening for malignant neoplasm of breast Z12.39 and Mixed stress and urge urinary incontinence N39.46 [place] [id number] [place] [address] 35873- 4351 Aug, Parkinsons disease G20 [place] [id number] [place] [address] 85111- 1889 Aug, Type 2 diabetes mellitus with unspecified complications E11.8 ; Left shoulder pain M25.512 and Hypotensive episode I95.9 [place] [id number] [place] [address] 26084- 2243 09 Aug, 2017 Coronary artery disease involving [place] coronary artery of [place] heart without angina pectoris I25.10 [facility] [id number] [place] [address] 62113- 7958 07 Aug, 2017 Type 2 diabetes mellitus with unspecified complications E11.8 [place] [address] 35144- 6101 Jul, Callus of foot L84 [place] [address] 82766- 2710 Jul, [place] [address] 03002- 7302 Jul, Callus of foot L84 ; Episodic cluster headache, not intractable G44.019 ; Type 2 diabetes mellitus with unspecified complications E11.8 and Parkinsons disease G20 [place] [id number] [place] [address] 00121- 5804 Jul, [place] [address] 11328- 3415 Jul, [place] [id number] [place] [address] 54896- 4969 Jun, Type 2 diabetes mellitus with unspecified complications E11.8 ; Unsteady gait R26.81 ; Forgetfulness R68.89 and Hallucinations R44.3 [place] [id number] [place] [address] 96723- 7376 Jun, [place] [address] 24983- 1940 Jun, Left shoulder pain M25.512 [place] [address] 94124- 4158 May, Hypernatremia E87.0 and Polydipsia R63.1 [place] [id number] [place] [address] 45997- 4491 08 May, 2017 Hypernatremia E87.0 and Polydipsia R63.1 [facility] [id number] [place] [address] 83623- 9714 08 May, 2017 Hypoglycemia E16.2 ; Dysuria R30.0 ; Unsteadiness on feet R26.81 ; Forgetfulness R68.89 ; Type 2 diabetes mellitus with unspecified complications E11.8 and Yeast infection involving the vagina and surrounding area B37.3 [facility] [id number] [place] [address] 45887- 3729 May, Acute cystitis without hematuria N30.00 [facility] [id number] [place] [address] 33504 -7584 Apr, Dysuria R30.0 and Acute cystitis without hematuria N30.00 [facility] [id number] [place] [address] 76998- 3637 Apr, Hypernatremia E87.0 and Polydipsia R63.1 [facility] [id number] [place] [address] 47068- 4740 Apr, Vertigo R42 and Type 2 diabetes mellitus with unspecified complications E11.8 [facility] [id number] [place] [address] 97477- 9151 Mar, [facility] [id number] [place] [address] 70395- 2659 19 Mar, 2017 Left shoulder pain M25.512 [facility] [id number] [place] [address] 72945- 2412 Mar, Vertigo R42 [place] [id number] [place] [address] 09115- 9119 Mar, Polydipsia R63.1 [facility] [id number] [place] [address] 68972- 1808 Mar, Polydipsia R63.1 [place] [id number] [place] [address] 81452- 9146 11 Mar, 2017 Vertigo R42 [place] [address] 81988- 3900 07 Mar, 2017 Type 2 diabetes mellitus with unspecified complications E11.8 ; Vertigo R42 ; Polydipsia R63.1 ; Polyuria R35.8 ; Hypothyroidism ( acquired) E03.9 ; Abnormal urinalysis R82.90 and Dysthymia F34.1 [place] [address] 30686- 7395 05 Mar, 2017 Coronary artery disease of [place] artery with stable angina pectoris, unspecified whether [place] or transplanted heart I25.118 ; Systolic CHF, chronic I50.22 ; Hyperlipemia, mixed E78.2 and Essential hypertension I10 [facility] [address] [id number] Feb, Dental caries K02.9 [place] [address] 38576- 5574 Feb, Type 2 diabetes mellitus with diabetic neuropathy, unspecified E11.40 [place] [address] 99327- 9747 23 Dec, 2016 Left shoulder pain M25.512 [place] [address] 46751- 2863 Dec, [place] [address] 13540- 4900 Dec, Type 2 diabetes mellitus with unspecified complications E11.8 [facility] [address] [id number] Dec, Dental examination Z01.20 [place] [address] 56849- 0597 08 Dec, 2016 Type 2 diabetes mellitus with diabetic neuropathy, unspecified E11.40 [place] [address] 82885- 9141 Dec, [facility] [id number] [place] [address] 08630- 3423 Dec, Type 2 diabetes mellitus with diabetic neuropathy, unspecified E11.40 [facility] [id number] [place] [address] 53876- 3989 November, Left shoulder pain M25.512 [place] [address] 99458- 0474 November, [place] [address] 47308- 5307 November, Type 2 diabetes mellitus with unspecified complications E11.8 and Dysuria R30.0 [place] [id number] [place] [address] 36163- 5929 Oct, Left shoulder pain M25.512 [place] [address] 02001- 2397 Sep, Left shoulder pain M25.512 [place] [id number] [place] [address] 19507- 2465 Sep, Pre-op testing Z01.818 [place] [id number] [place] [address] 52355- 5411 Sep, Pre-op testing Z01.818 [place] [id number] [place] [address] 44476- 6598 Sep, Pre-op testing Z01.818 [place] [id number] [place] [address] 50968- 2343 Sep, Pre-op testing Z01.818 and Mouth pain K13.79 [place] [id number] [place] [address] 12426- 6188 Sep, Left shoulder pain M25.512 [place] [id number] [place] [address] 18683- 3097 08 Feb, 2017 Other eczema L30.8 [place] [id number] [place] [address] 31574- 8283 Aug, PVD (peripheral vascular disease) I73.9 ; Type 2 diabetes mellitus with unspecified complications E11.8 ; Acute cystitis with hematuria N30.01 ; Other eczema L30.8 ; Dysuria R30.0 and Left shoulder pain M25.512 [facility] [address] 76498 -3891 Jul, Otalgia of right ear H92.01 and Blood in ear canal, right H92.21 [place] [address] 53444- 8363 Jul, Arthralgia, unspecified joint M25.50 ; PVD (peripheral vascular disease) I73.9 and Neuropathy G62.9 [place] [address] 49084- 3894 Jul, [place] [address] 59813- 3788 Jun, Medicare annual wellness visit, initial Z00.00 ; Cervicalgia M54.2 ; Radiculopathy of cervical region M54.12 ; Encounter for immunization Z23 ; Type 2 diabetes mellitus with unspecified complications E11.8 and Essential hypertension I10 [place] [id number] [place] [address] 49401- 7733 Jun, [place] [address] 04296- 6663 14 May, 2016 Hypothyroidism (acquired) E03.9 [place] [address] 33366- 0696 10 May, 2016 Dysuria R30.0 ; Essential hypertension I10 ; Hypothyroidism (acquired) E03.9 and PVD (peripheral vascular disease) I73.9 [facility] [id number] [place] [address] 67431 -7725 May, Burning with urination R30.0 and Acute cystitis with hematuria N30.01 [facility] [id number] [address]- 9416 May, Dental examination Z01.20 [facility] [id number] [place] [address] 82504- 4456 May, Hypothyroidism (acquired) E03.9 [facility] [id number] [place] [address] 87500- 6151 Feb, [facility] [id number] [place] [address] 11894- 2800 Feb, 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 ; PVD ( peripheral vascular disease) I73.9 ; Type 2 diabetes mellitus with unspecified complications E11.8 and Essential hypertension I10 [place] [id number] [place] [address] 21227- 5062 Jan, [place] [id number] [place] [address] 16881- 6139 Jan, Hypothyroidism (acquired) E03.9 [facility] [id number] [place] [address] 92423- 8008 Jan, [facility] [id number] [place] [address] 64330- 6653 Jan, [facility] [id number] [place] [address] 48177- 6944 Jan, Type 2 diabetes mellitus with unspecified complications E11.8 ; 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 and Essential ( primary) hypertension I10 [facility] [address] [place] [address] 72868- 5689 Jan, Type 2 diabetes mellitus with unspecified complications E11.8 ; 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 ; Essential hypertension I10 and PVD (peripheral vascular disease) I73.9 [facility] [address] [place] [address] 27553- 0087 Jan, [facility] [address] [place] [address] 88582- 6666 Jan, [facility] [id number] [place] [address] 26806- 4281 Jan, [facility] [id number] [place] [address] 60741- 7286 Jan, Weakness R53.1 ; Fatigue, unspecified type R53.83 ; PVD ( peripheral vascular disease) I73.9 ; Acute osteomyelitis of other site M86.18 ; Type 2 diabetes mellitus with diabetic neuropathy, unspecified E11.40 and prison 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.4 [place] [id number] [place] [address] 31289- 2546 Dec, [place] [id number] [place] [address] 69152- 4517 Dec, Type 2 diabetes mellitus with unspecified complications E11.8 [place] [id number] [place] [address] 13037- 3676 Dec, [place] [id number] [place] [address] 28108- 1406 Dec, Pressure ulcer, unspecified pressure ulcer stage L89.90 and Type 2 diabetes mellitus with unspecified complications E11.8 [facility] [address] [place] [address] 93751 -1086 Dec, Toe infection L08.9 [place] [id number] [place] [address] 46383- 4804 November, Dental caries K02.9 [place] [id number] [place] [address] 01586- 4176 November, [place] [id number] [place] [address] 56545- 5728 November, Dental examination Z01.20 [place] [id number] [place] [address] 47594- 9973 Sep, Lipoma of torso D17.1 and Thoracic neuritis M54.14 [facility] [id number] [place] [address] 00888- 7909 Sep, [facility] [id number] [place] [address] 90046- 2914 08 Aug, 2015 [facility] [id number] [place] [address] 10384 -9287 Jul, Dysuria R30.0 and UTI (urinary tract infection) N39.0 [facility] [id number] [place] [address] 31663- 3697 Jun, Left shoulder pain M25.512 [facility] [id number] [place] [address] 26896- 9045 May, Shoulder pain, left M25.512 [place] [id number] [place] [address] 83117- 9126 May, [facility] [id number] [place] [address] 96891- 6046 May, [facility] [address] 09397- 0571 May, Left shoulder pain M25.512 [facility] [id number] [place] [address] 46168- 4891 May, [facility] [id number] [place] [address] 79615- 6193 Apr, Encounter for immunization Z23 [facility] [id number] [place] [address] 57145- 9659 Apr, Urinary tract infection, site not specified N39.0 ; Hypotension, unspecified I95.9 ; Type 2 diabetes mellitus with unspecified complications E11.8 and Generalized edema R60.1 [facility] [id number] [place] [address] 27197- 5300 Apr, [facility] [address] [place] [address]- 0271 Mar, Diabetes with other specified manifestations, type II or unspecified type, not stated as uncontrolled 250.80 [facility] [id number] [place] [address] 41127- 6954 Feb, Gout 274.9 and Diabetes 250.00 [facility] [id number] [place] [address] 43850- 7036 Jan, [facility] [address] 75401- 4009 November, CAD (coronary artery disease) 414.00 and CHF (congestive heart failure) 428.0 [facility] [id number] [place] [address] 53802- 0366 Oct, [facility] [id number] [place] [address] 54599- 8484 Oct, [facility] [id number] [place] [address] 82962- 0627 Oct, [facility] [id number] [place] [address] 72371- 6290 Sep, [facility] [id number] [place] [address] 35335- 9400 Sep, [facility] [id number] [place] [address] 47178- 6316 Sep, [facility] [id number] [place] [address] 70500- 7646 Sep, [facility] [address] [place] [address] 90194- 1374 Aug, [facility] [id number] [place] [address] 94274- 2326 Aug, [facility] [address] [place] [address] 99554- 1056 Aug, [facility] [id number] [place] [address] 07054- 0995 Aug, 2014 [facility] [place] [facility] [address] [id number] [place] [address]- 2646 Aug, 2014 [facility] [place] [facility] [address] [id number] [place] [address]- 5103 Aug, 2014 [facility] [place] [facility] [address] [id number] [place] [address]- 7683 Aug, [facility] [place] [facility] [address] [id number] [place] [address]- 9844 Aug, [facility] [place] [facility] [address] [id number] [place] [address]- 2289 Jul, [facility] [place] [facility] [address] [id number] [place] [address]- 7433 Jul, [facility] [place] [facility] [address] [id number] [place] [address]- 0370 Jul, [facility] [place] [facility] [address] [id number] [place] [address]- 6833 Jul, [facility] [place] [facility] [address] [id number] [place] [address]- 7117 Jul, [facility] [place] [facility] [address] [facility] [id number] [place] [address]- 4807 Jul, [facility] [place] [facility] [address] [id number] [place] [address]- 4671 Jul, [facility] [place] [facility] [address] [id number] [address]- 7469 Jul, [facility] [place] [facility] [address] [id number] [place] [address]- 5922 Jul, [facility] [place] [facility] [address] [id number] [place] [address]- 3379 Jul, [facility] [place] [facility] [address] [id number] [place] [address]- 5325 Jun, [facility] [place] [facility] [address] [id number] [place] [address]- 8166 Jun, [facility] [place] [facility] [address] [id number] [place] 7732 Jun, [facility] [place] [facility] [address] [id number] [place] [address]- 9606 Jun, [facility] [place] [facility] [address] [id number] [place] [address]- 9880 Jun, [facility] [place] [facility] [address] [id number] [place] [address]- 1976 Jun, [facility] [place] [facility] [address] [id number] [place] [address]- 5006 Jun, [facility] [place] [facility] [address] [id number] [place] [address]- 4863 Jun, [facility] [place] [facility] [address] [id number] [place] [address]- 2640 Jun, [facility] [place] [facility] [address] [id number] [place] [address]- 6817 Jun, [facility] [place] [facility] [address] [id number] [place] [address]- 8882 May, [facility] [place] [facility] [address] [id number] [place] [address]- 3882 May, [facility] [place] [facility] [address] [id number] [place] [address]- 3918 18 Mar, 2014 [facility] [place] [facility] [address] [id number] [place] [address]- 1609 18 Mar, 2014 [facility] [place] [facility] [address] [id number] [place] [address]- 5952 10 Mar, 2014 [facility] [place] [facility] [address] [id number] [place] [address]- 9123 10 Mar, 2014 [facility] [place] [facility] [address] [id number] [place] [address]- 6382 Feb, [facility] [place] [facility] [address] [id number] [place] [address]- 7801 Feb, [facility] [place] [facility] [address] [id number] [place] [address]- 8935 Feb, [facility] [place] [facility] [address] [id number] [place] [address]- 4923 Jan, [facility] [place] [facility] [address] [id number] [place] [address]- 8984 Jan, [facility] [place] [facility] [address] [id number] [place] [address] Jan, [facility] [place] [facility] [address] [id number] [place] [address] Jan, [facility] [place] [facility] [address] [id number] [place] [address] Jan, [facility] [place] [facility] [address] [id number] [place] [address] Jan, [facility] [place] [facility] [address] [id number] [place] [address] Jan, [facility] [place] [facility] [address] [id number] [place] [address] Jan, [facility] [place] [facility] [address] [id number] [place] [address] Jan, [facility] [place] [facility] [address] [id number] [place] [address] Jan, [facility] [place] [facility] [address] [id number] [place] [address] Dec, [facility] [place] [facility] [address] [id number] [place] [address] Dec, [facility] [place] [facility] [address] [id number] [place] [address] November, [facility] [place] [facility] [address] [id number] [place] [address] November, [facility] [address] [id number] [place] [address] November, [facility] [place] [facility] [address] [id number] [place] [address] November, [facility] [address] [id number] [place] [address] November, [facility] [place] [facility] [address] [id number] [place] [address] November, [facility] [address] [id number] [place] [address] November, [facility] [address] [id number] [place] [address] Oct, [facility] [address] [id number] [place] [address] Oct, [facility] [address] [id number] [place] [address] Sep, [facility] [place] [facility] [address] [id number] [place] [address] Sep, [facility] [address] [id number] [place] [address] 99[address] Sep, [facility] [place] [facility] [address] [id number] [place] [address]10 Sep, [facility] [place] [facility] [address] [id number] [place] [address] Sep, [facility] [place] [facility] [address] [id number] [place] [address] Sep, [facility] [place] [facility] [address] [id number] [place] [address] Sep, [facility] [place] [facility] [address] [id number] [place] [address] 99[address] Sep, [facility] [place] [facility] [address] [id number] [place] [address]- 1786 Sep, [facility] [place] [facility] [address] [id number] [place] [address]- 9829 Sep, [facility] [place] [facility] [address] [id number] [place] [address]- 09[address] Aug, [facility] [place] [facility] [address] [id number] [place] [address]- 1596 Aug, [facility] [place] [facility] [address] [id number] [place] [address] 7[address] Jul, [facility] [place] [facility] [address] [id number] [place] [address]- 54[address] Jul, [facility] [place] [facility] [address] [id number] [place] [address]- 5774 Jul, [facility] [place] [facility] [address] [id number] [place] [address]- 1019 Jul, [facility] [place] [facility] [address] [id number] [place] [address]- 3555 Jul, [facility] [place] [facility] [address] [id number] [place] [address]- 6579 Jul, [facility] [place] [facility] [address] [id number], [place] [address] Jun, [facility] [place] [facility] [address] [id number], [place] [address] Jun, [facility] [place] [facility] [address] [id number] [place] [address]- 4173 Jun, [facility] [place] [facility] [address] [id number] [place] [address]- 3244 Jun, [facility] [place] [facility] [address] [id number] [place] [address]- 6617 May, [facility] [place] [facility] [address] [id number] [place] [address]- [address]337 14 May, 2013 [facility] [place] [facility] [address] [id number] [place] [address]- [address]235 11 May, 2012 [facility] [place] [facility] [address] [id number] [place] [address]- 8379 11 May, 2012 [facility] [place] [facility] [address] [id number] [place] [address]- 7702 07 May, 2013 [facility] [place] [facility] [address] [id number] [place] [address]- 1277 31 Apr, 2012 [facility] [place] [facility] [address] [id number] [place] [address]- 5876 31 Apr, 2013 [facility] [place] [facility] [address] [id number] [place] [address]- 1044 Apr, [facility] [place] [facility] [address] [id number] [place] [address]- 6598 Apr, [facility] [place] [facility] [address] [id number] [place] [address]- 7750 Apr, [facility] [place] [facility] [address] [id number] [place] [address] Apr, [facility] [place] [facility] [address] [id number] [place] [address]- 290[address] Apr, [facility] [place] [facility] [address] [id number] [place] [address]- 6490 Apr, [facility] [place] [facility] [address] [id number] [place] [address]- 1076 Apr, [facility] [place] [facility] [address] [id number] [place] [address]- 2930 Apr, [facility] [place] [facility] [address] [id number] [place] [address]- 6237 Apr, [facility] [place] [facility] [address] [id number] [place] [address]- 3987 Apr, [facility] [place] [facility] [address] [id number] [place] [address]- 3499 Mar, [facility] [place] [facility] [address] [id number] [place] [address]- 6560 Mar, [facility] [place] [facility] [address] [id number] [place] [address]- 5229 Feb, [facility] [place] [facility] [address] [id number] [place] [address]- 2924 Jan, [facility] [place] [facility] [address] [id number] [place] [address]- 7149 Jan, [facility] [place] [facility] [address] [id number] [place] [address]- 1447 Jan, [facility] [place] [facility] [address] [id number] [place] [address]- 7099 Jan, [facility] [place] [facility] [address] [id number] [place] [address]- 5236 Dec, [facility] [place] [facility] [address] [id number] [place] [address]- 4653 Dec, [facility] [place] [facility] [address] [id number] [place] [address]- 6256 Dec, [facility] [place] [facility] [address] [id number] [place] [address]- 7339 Dec, [facility] [place] [facility] [address] [id number] [place] [address]- 7543 Dec, [facility] [place] [facility] [address] [id number] [place] [address]- 3007 Dec, [facility] [place] [facility] [address] [id number] [place] [address]- 8069 Dec, [facility] [place] [facility] [address] [id number] [place] [address]- 2324 November, [facility] [place] [facility] [address] [id number] [place] [address]- 5806 November, [facility] [address] [id number] [place] [address]- 2779 November, [facility] [place] [address] [id number] [place] [address]- 9791 Oct, [facility] [place] [facility] [address] [facility] [id number] [place] [address]- 8019 Oct, [facility] [place] [facility] [address] [id number] [place] [address]- 4864 Oct, [facility] [address] [id number] [place] [address]- 9309 Oct, [facility] [place] [facility] [address] [id number] [place] [address]- 1911 Oct, [facility] [place] [facility] [address] [id number] [place] [address]- 1686 Sep, [facility] [place] [facility] [address] [id number] [place] [address]- 7252 Sep, [facility] [address] [id number] [place] [address]- 8202 Sep, [facility] [place] [facility] [address] [id number] [place] [address]- 0952 Sep, [facility] [place] [facility] [address] [id number] [place] [address]- 3750 Aug, [facility] [place] [facility] [address] [id number] [place] [address]- 0310 Aug, [facility] [place] [facility] [address] [id number] [place] [address]- 2465 Aug, [facility] [place] [facility] [address] [id number] [place] [address]- 3663 Aug, [facility] [place] [facility] [address] [id number] [place] [address]- 2377 Jul, [facility] [place] [facility] [address] [id number] [place] [address]- 5786 Jul, [facility] [place] [facility] [address] [id number] [place] [address]- 6621 Jun, [facility] [place] [facility] [address] [id number] [place] [address] Jun, [facility] [place] [facility] [address] [id number] [place] [address]- 1787 Jun, [facility] [place] [facility] [address] [id number] [place] [address]- 1307 Jun, [facility] [place] [facility] [address] [id number] [place] [address]- 8264 May, [facility] [place] [facility] [address] [id number] [place] [address]- 5544 May, [facility] [place] [facility] [address] [id number] [place] [address]- 2242 May, [facility] [place] [facility] [address] [id number] [place] [address]- 0002 May, [facility] [place] [facility] [address] [id number] [place] [address]- 4024 Apr, [facility] [place] [facility] [address] [facility] [id number] [place] [address]- 9148 Apr, [facility] [place] [facility] [address] [id number] [place] [address]- 3191 31 Apr, 2012 [facility] [place] [facility] [address] [id number] [place] [address]- 0796 31 Apr, 2012 [facility] [place] [facility] [address] [id number] [place] [address]- 4251 30 Apr, 2012 [facility] [place] [facility] [address] [facility] [id number] [place] [address] 30 Apr, 2012 [facility] [place] [facility] [address] [id number] [place] [address]- 5383 Apr, [facility] [place] [facility] [address] [id number] [place] [address]- 5793 Apr, [facility] [place] [facility] [address] [id number] [place] [address]- 8639 Apr, [facility] [place] [facility] [address] [id number] [place] [address]- 2661 Apr, [facility] [place] [facility] [address] [id number] [place] [address]- 2505 Feb, [facility] [place] [facility] [address] [id number] [place] [address]- 1455 Feb, [facility] [place] [facility] [address] [id number] [place] [address]- 6145 Jan, [facility] [place] [facility] [address] [id number] [place] [address]- 0609 Jan, [facility] [place] [facility] [address] [id number] [place] [address]- 7867 Jan, [facility] [place] [facility] [address] [id number] [place] [address]- 9634 Jan, [facility] [place] [facility] [address] [id number] [place] [address]- 3694 Jan, [facility] [place] [facility] [address] [id number] [place] [address]- 7504 Jan, [facility] [place] [facility] [address] [id number], [place] [address]- 5391 Dec, [facility] [place] [facility] [address] [id number] [place] [address]- 1110 November, [facility] [place] [facility] [address] [id number] [place] [address]- 1471 November, [facility] [place] [facility] [address] [id number] [place] [address]- 6687 November, [facility] [place] [facility] [address] [id number] [place] [address]- 2683 26 Sep, 2011 [facility] [place] [facility] [address] [id number] [place] [address]- 1968 Sep, [facility] [place] [facility] [address] [id number] [place] [address]- 1986 Sep, [facility] [place] [facility] [address] [id number] [place] [address]- 3712 Sep, [facility] [place] [facility] [address] [id number] [place] [address]- 8333 Sep, [facility] [place] [facility] [address] [id number] [place] [address]- 1024 Sep, [facility] [place] [facility] [address] [id number] [place] [address]- 5446 13 Aug, 2011 [facility] [place] [facility] [address] [id number] [place] [address]- 3584 10 Aug, 2011 [facility] [place] [facility] [address] [id number] [place] [address]- 7087 Aug, [facility] [place] [facility] [address] [id number] [place] [address]- 0259 Jul, [facility] [place] [facility] [address] [id number] [place] [address]- 0086 Jul, [facility] [place] [facility] [address] [id number] [place] [address]- 9480 Jul, [facility] [place] [facility] [address] [id number] [place] [address]- 2995 Jul, [facility] [place] [facility] [address] [id number] [place] [address]- 6726 Jun, [facility] [place] [facility] [address] [id number] [place] [address]- 2546 Jun, [facility] [place] [facility] [address] [id number] [place] [address]- 2486 Jun, [facility] [place] [facility] [address] [id number] [place] [address]- 7955 06 Jun, 2011 [facility] [place] [facility] [address] [id number] [place] [address]- 5966 Jun, [facility] [place] [facility] [address] [id number] [place] [address]- 3174 Jun, [facility] [place] [facility] [address] [id number] [place] [address]- 3039 May, [facility] [place] [facility] [address] [id number] [place] [address] May, [facility] [place] [facility] [address] [id number] [place] [address]- 7658 May, [facility] [place] [facility] [address] [id number] [place] [address]- 6598 Apr, [facility] [place] [facility] [address] [id number] [place] [address]- 7018 Jan, [facility] [place] [facility] [address] [id number] [place] [address]- 3516 Jun, [facility] [place] [facility] [address] [id number] [place] [address]- 9303 Jun, [facility] [place] [facility] [address] [id number] [place] [address]- 0703 15 Jun, 2010 [facility] [place] [facility] [address] [id number] [place] [address]- 6720 15 Jun, 2010 [facility] [place] [facility] [address] [id number] [place] [address]- 8716 15 Jun, 2010 [facility] [place] [facility] [address] [id number] [place] [address]- 1686 13 Jun, 2010 [facility] [place] [facility] [address] [id number] [place] 8890 13 Jun, 2010 [facility] [place] [facility] [address] [id number], [place] [address]- 9022 Apr, [facility] [place] [facility] [address] [id number] [place] [address]- 0018 Feb, [facility] [place] [facility] [address] [id number], [place] [address] 2546 15 Aug, 2009 [facility] [facility] [address] [facility] [id number] [place] [address]- 3196 18 Jul, 2009 [facility] [place] [facility] [address] [id number] [place] [address] 2547 11 Jul, 2009 [facility] [facility] [address] [facility] [id number] [place] [address]- 0367 29 Jun, 2009 [facility] [place] [facility] [address] [facility] [id number] [place] [address]- 0130 Jun, [facility] [place] [facility] [address] [facility] [id number] [place] [address]- 3321 28 Jun, 2009 [facility] [place] [facility] [address] [facility] [id number] [place] [address]- 0292 22 Jun, 2009 [facility] [address] [facility] [id number] [place] [address]- 6772 16 Jun, 2009 [facility] [place] [facility] [address] [facility] [id number] [place] [address]- 4480 Jun, [facility] [facility] [address] [facility] [id number], [place] [address]- 8400 Jun, [facility] [place] [facility] [address] [facility] [id number], [place] [address]- 2543 30 May, 2009 [facility] [place] [facility] [address] [facility] [id number] [place] [address]- 3096 27 May, 2009 [facility] [place] [facility] [address] [facility] [id number] [place] [address]- 2545 23 May, 2009 [facility] [place] [facility] [address] [facility] [id number] [place] [address]- 4802 18 May, 2009 [facility] [place] [facility] [address] [facility] [id number], [place] [address]- [address]71 May, [facility] [address] [id number], [place] [address]- 5097 May, [facility] [id number], [place] [address]- 3850 May, [facility] [id number], [place] [address]- 6633 Apr, [facility] [id number], [place] [address]- 9837 Apr, [facility] [id number], [place] [address]- 2784 Jan, [facility] [address] [id number], [place] [address]- 0036 Oct, IMMUNIZATIONS No Known Immunizations SOCIAL HISTORY Never Assessed REASON FOR VISIT Diabetes f/u--ABoggsLPN, Dysuria PLAN OF CARE Activity Details Follow Up 2 Months Reason:DM VITAL SIGNS Height 62 in 2017-11-09 Weight 183.7 lbs 2017-11-09 Temperature 97.9 degrees Fahrenheit 2017-11-09 Heart Rate 68 bpm 2017-11-09 Respiratory Rate 18 2017-11-09 BMI 33.60 kg/m2 2017-11-09 Blood pressure systolic 82 mmHg 2017-11-09 Blood pressure diastolic 42 mmHg 2017-11-09 MEDICATIONS Medication Instructions Dosage Frequency Start Date End Date Duration Status [facility] Blood Glucose Test Strip N/A subcutaneously 6 times a day. E11.40 test blood sugar Dec, Active Fenofibrate 48 MG Orally Once a day 1 tablet 24h Active Citalopram Hydrobromide 20 mg Orally Once a day 1.5 tablets 24h 90 days Active BD Pen Needle Mini U/F 31G X 5 MM subcutaneously 4 times a day as directed 6h Dec, 30 days Active Levothyroxine Sodium 25 MCG Orally Once a day 1 tablet on an empty stomach in the morning 24h 30 Active Aspirin 81 MG Orally Once a day 1 tablet 24h Active Fenofibric Acid 135 MG Orally Once a day 1 capsule 24h Not-Taking Betamethasone Dipropionate Aug 0.05 % Externally 2 times a day 1 application to affected area 12h 08 Aug, 2016 Not-Taking Donepezil HCl 10 MG Orally Once a day 1 tablet at bedtime 24h Jul, Active Vitamin D-3 Active Fish Oil 1000 MG Orally 2 times a day 1 capsule 12h Active Crestor 10 MG Orally Once a day 1 tablet 24h Active Tramadol HCl 50 MG Orally 2 times a day 1 tablet as needed 12h 28 days Active Zontivity 2.08 MG Orally Once a day 1 tablet 24h Active Clopidogrel Bisulfate 75 MG Orally Once a day 1 tablet 24h 30 Active Furosemide 40 MG TAKE 1 TABLET BY MOUTH DAILY. 30 Active Carvedilol 3.125 MG Orally 2 times a day 1 tablet 12h Active Tresiba FlexTouch 200 UNIT/ML Subcutaneous once a day Inject 14 unitsin AM rather than PM 24h Jan, 90 Active RESULTS No Results PROCEDURES Procedure Date Ordered Result Body Site GLYCATED HEMOGLOBIN TEST November 09, 2017 MICROALBUMIN, SEMIQUANT November 09, 2017 LAB NOT BILLED BY [facility] November 09, 2017 URINALYSIS, AUTO, W/O SCOPE November 09, 2017 [facility] VISIT ESTABLISHED PATIENT November 09, 2017 INSTRUCTIONS MEDICATIONS ADMINISTERED No Known Medications [...]
--- OUTSIDE RECORDS SUMMARY | 2018-11-09 13:07 | XMS REPORT ---
Author Author PRABHA HILL [facility] Address [address] [place] [address] Care Team Providers Care Pillow Agent Name Role Phone PRABHA HILL Unavailable PROBLEMS Type Condition ICD9-CM Code BZK10-BF Code Onset Dates Condition Status SNOMED Code Problem Hypoglycemia E16.2 Active 720896061 Problem Unsteady gait R26.81 Active 67962776 Problem Hallucinations R44.3 Active 9050409 Problem 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 Active [id number] Problem Dysuria R30.0 Active 63589214 Problem Anxiety F41.9 Active 62245432 Problem Dementia in other diseases classified elsewhere without behavioral disturbance F02.80 Active 676374288 Problem Dementia with Lewy bodies G31.83 Active 572373841 Problem Episodic cluster headache, not intractable G44.019 Active 835641789 Problem Parkinsons disease G20 Active 89398378 Problem Neurogenic orthostatic hypotension G90.3 Active 748661615 Problem Mixed stress and urge urinary incontinence N39.46 Active 541217549 Problem 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 Active 793448384 Problem Essential hypertension I10 Active 88895716 Problem Type 2 diabetes mellitus with unspecified complications E11.8 Active 01579161 Problem PVD (peripheral vascular disease) I73.9 Active 211491159 Problem Polydipsia R63.1 Active 40108441 Problem Dysthymia F34.1 Active 91444639 Problem Hypothyroidism (acquired) E03.9 Active 375782583 Problem Hyperlipemia, mixed E78.2 Active 509776607 Problem Coronary artery disease involving [place] coronary artery of [place] heart without angina pectoris I25.10 Active 4465051223792 Problem Neuropathy G62.9 Active 605309479 Problem Hypernatremia E87.0 Active 40497711 ALLERGIES No Information ENCOUNTERS Encounter Location Date Diagnosis [facility] [address] [facility] [id number] [address] Feb, Left shoulder pain M25.512 [facility] [id number] [place] [address] 77414- 3873 Feb, 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 [facility] [id number] [place] [address] 81410- 0136 Jan, Left shoulder pain M25.512 [place] [address] 16871- 5775 Dec, Parkinsons disease G20 [facility] [address] 38230- 4202 Dec, Left shoulder pain M25.512 [place] [id number] [place] [address] 78432- 3914 Dec, Type 2 diabetes mellitus with unspecified complications E11.8 ; Anxiety F41.9 ; Therapeutic drug monitoring Z51.81 and Analgesic use Z79.899 [facility] [id number] [place] [address] 58933- 4562 November, [facility] [address] 01003- 6660 November, [facility] [id number] [place] [address] 69816- 8819 November, Left shoulder pain M25.512 [place] [id number] [place] [address] 00055- 2501 Oct, [facility] [id number] [place] [address] 22335 -3949 Oct, [facility] [address] 58764- 6848 Oct, Parkinsons disease G20 [facility] [id number] [place] [address] 19339 -6005 Oct, Acute cystitis without hematuria N30.00 and Viral upper respiratory tract infection J06.9 [facility] [address], [place] [address] 5792 Oct, [place] [id number] [place] [address] 51082- 4784 Oct, Type 2 diabetes mellitus with unspecified complications E11.8 [place] [id number] [place] [address] 10211- 3864 Oct, Left shoulder pain M25.512 [place] [id number] [place] [address] 42160- 8043 Oct, Type 2 diabetes mellitus with unspecified complications E11.8 ; Dysuria R30.0 and Neurogenic orthostatic hypotension G90.3 [place] [id number] [place] [address] 13755- 5813 Sep, Left shoulder pain M25.512 [place] [id number] [place] [address] 93219- 3912 Sep, Medicare annual wellness visit, initial Z00.00 ; Parkinsons disease G20 ; Type 2 diabetes mellitus with unspecified complications E11.8 ; Essential hypertension I10 ; Coronary artery disease involving [place] coronary artery of [place] heart without angina pectoris I25.10 ; Hypothyroidism (acquired ) E03.9 ; PVD (peripheral vascular disease) I73.9 ; Dysthymia F34.1 ; Hyperlipemia, mixed E78.2 ; Neuropathy G62.9 ; Encounter for immunization Z23 ; Encounter for other screening for malignant neoplasm of breast Z12.39 and Mixed stress and urge urinary incontinence N39.46 [place] [address] [place] [address] 47070- 4724 Aug, Parkinsons disease G20 [place] [id number] [place] [address] 88151- 9691 Aug, Type 2 diabetes mellitus with unspecified complications E11.8 ; Left shoulder pain M25.512 and Hypotensive episode I95.9 [place] [id number] [place] [address] 96461- 7188 Aug, Coronary artery disease involving [place] coronary artery of [place] heart without angina pectoris I25.10 [place] [id number] [place] [address] 38973- 2422 Aug, Type 2 diabetes mellitus with unspecified complications E11.8 [place] [id number] [place] [address] 27177- 0476 Jul, Callus of foot L84 [place] [address] 59603- 8617 Jul, [place] [id number] [place] [address] 23689- 1944 Jul, Callus of foot L84 ; Episodic cluster headache, not intractable G44.019 ; Type 2 diabetes mellitus with unspecified complications E11.8 and Parkinsons disease G20 [place] [id number] [place] [address] 83876- 5639 Jul, [place] [address] 89932- 3224 Jul, [place] [id number] [place] [address] 57273- 1827 Jun, Type 2 diabetes mellitus with unspecified complications E11.8 ; Unsteady gait R26.81 ; Forgetfulness R68.89 and Hallucinations R44.3 [place] [id number] [place] [address] 64142- 7095 Jun, [place] [id number] [place] [address] 85769- 1938 Jun, Left shoulder pain M25.512 [place] [id number] [place] [address] 26566- 6553 May, Hypernatremia E87.0 and Polydipsia R63.1 [place] [address] [place] [address] 33931- 5271 08 May, 2017 Hypernatremia E87.0 and Polydipsia R63.1 [place] [id number] [place] [address] 73250- 1521 May, Hypoglycemia E16.2 ; Dysuria R30.0 ; Unsteadiness on feet R26.81 ; Forgetfulness R68.89 ; Type 2 diabetes mellitus with unspecified complications E11.8 and Yeast infection involving the vagina and surrounding area B37.3 [place] [id number] [place] [address] 29328- 8805 May, Acute cystitis without hematuria N30.00 [facility] [id number] [place] [address] 39208 -1398 Apr, Dysuria R30.0 and Acute cystitis without hematuria N30.00 [place] [id number] [place] [address] 27650- 1627 Apr, Hypernatremia E87.0 and Polydipsia R63.1 [place] [id number] [place] [address] 98659- 9201 Apr, Vertigo R42 and Type 2 diabetes mellitus with unspecified complications E11.8 [place] [id number] [place] [address] 76919- 9503 Mar, [place] [address] 01034- 3982 19 Mar, 2017 Left shoulder pain M25.512 [place] [id number] [place] [address] 42948- 1146 13 Mar, 2017 Vertigo R42 [place] [id number] [place] [address] 58540- 7395 12 Mar, 2017 Polydipsia R63.1 [place] [address] 26194- 8992 Mar, Polydipsia R63.1 [place] [id number] [place] [address] 66853- 9931 Mar, Vertigo R42 [place] [id number] [place] [address] 88677- 4621 07 Mar, 2017 Type 2 diabetes mellitus with unspecified complications E11.8 ; Vertigo R42 ; Polydipsia R63.1 ; Polyuria R35.8 ; Hypothyroidism ( acquired) E03.9 ; Abnormal urinalysis R82.90 and Dysthymia F34.1 [facility] [id number] [place] [address] 70995- 7197 05 Mar, 2017 Coronary artery disease of [place] artery with stable angina pectoris, unspecified whether [place] or transplanted heart I25.118 ; Systolic CHF, chronic I50.22 ; Hyperlipemia, mixed E78.2 and Essential hypertension I10 [facility] [address] [id number] Feb, Dental caries K02.9 [facility] [address] 12673- 6177 Feb, Type 2 diabetes mellitus with diabetic neuropathy, unspecified E11.40 [facility] [address] 54762- 4845 Dec, Left shoulder pain M25.512 [facility] [address] 69175- 7502 Dec, [facility] [address] 05590- 7944 Dec, Type 2 diabetes mellitus with unspecified complications E11.8 [facility] [id number] [place] [address] [id number] Dec, Dental examination Z01.20 [facility] [id number] [place] [address] 26852- 9961 08 Dec, 2016 Type 2 diabetes mellitus with diabetic neuropathy, unspecified E11.40 [facility] [id number] [place] [address] 70267- 4995 07 Dec, 2016 [facility] [id number] [place] [address] 42819- 3214 Dec, Type 2 diabetes mellitus with diabetic neuropathy, unspecified E11.40 [place] [id number] [place] [address] 26658- 4100 November, Left shoulder pain M25.512 [place] [id number] [place] [address] 58377- 6156 November, [place] [id number] [place] [address] 04536- 4056 November, Type 2 diabetes mellitus with unspecified complications E11.8 and Dysuria R30.0 [place] [address] 67537- 7098 Oct, Left shoulder pain M25.512 [place] [address] 05166- 0776 Sep, Left shoulder pain M25.512 [place] [id number] [place] [address] 03981- 9669 Sep, Pre-op testing Z01.818 [place] [id number] [place] [address] 23280- 7982 Sep, Pre-op testing Z01.818 [place] [id number] [place] [address] 11610- 0207 Sep, Pre-op testing Z01.818 [place] [id number] [place] [address] 43901- 9680 Sep, Pre-op testing Z01.818 and Mouth pain K13.79 [place] [id number] [place] [address] 19424- 6229 Sep, Left shoulder pain M25.512 [place] [id number] [place] [address] 18071- 3006 08 Aug, 2016 Other eczema L30.8 [place] [id number] [place] [address] 68278- 3406 06 Aug, 2016 PVD (peripheral vascular disease) I73.9 ; Type 2 diabetes mellitus with unspecified complications E11.8 ; Acute cystitis with hematuria N30.01 ; Other eczema L30.8 ; Dysuria R30.0 and Left shoulder pain M25.512 [facility] [address] 78585 -0320 Jul, Otalgia of right ear H92.01 and Blood in ear canal, right H92.21 [place] [address] 96491- 1071 Jul, Arthralgia, unspecified joint M25.50 ; PVD (peripheral vascular disease) I73.9 and Neuropathy G62.9 [place] [address] 49492- 9930 Jul, [place] [address] 35173- 0237 Jun, Medicare annual wellness visit, initial Z00.00 ; Cervicalgia M54.2 ; Radiculopathy of cervical region M54.12 ; Encounter for immunization Z23 ; Type 2 diabetes mellitus with unspecified complications E11.8 and Essential hypertension I10 [place] [address] 81102- 4554 Jun, [place] [address] 38270- 0764 14 May, 2016 Hypothyroidism (acquired) E03.9 [place] [address] 73927- 6191 10 May, 2016 Dysuria R30.0 ; Essential hypertension I10 ; Hypothyroidism (acquired) E03.9 and PVD (peripheral vascular disease) I73.9 [facility] [address] 75977 -9165 03 May, 2016 Burning with urination R30.0 and Acute cystitis with hematuria N30.01 [place] [address] 66161- 2253 May, Dental examination Z01.20 [place] [address] [address]- 9008 May, Hypothyroidism (acquired) E03.9 [facility] [id number] [place] [address] 91631- 1900 Feb, [facility] [id number] [place] [address] 35692- 4178 Feb, 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 ; PVD ( peripheral vascular disease) I73.9 ; Type 2 diabetes mellitus with unspecified complications E11.8 and Essential hypertension I10 [place] [id number] [place] [address] 09988- 6007 Jan, [place] [id number] [place] [address] 88393- 0219 Jan, Hypothyroidism (acquired) E03.9 [place] [id number] [place] [address] 44251- 9499 Jan, [facility] [id number] [place] [address] 68140- 3009 Jan, [facility] [id number] [place] [address] 76405- 2456 Jan, Type 2 diabetes mellitus with unspecified complications E11.8 ; 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 and Essential ( primary) hypertension I10 [place] [id number] [place] [address] 62023- 1959 Jan, Type 2 diabetes mellitus with unspecified complications E11.8 ; 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 ; Essential hypertension I10 and PVD (peripheral vascular disease) I73.9 [facility] [id number] [place] [address] 40315- 4397 Jan, [place] [id number] [place] [address] 06289- 9463 Jan, [facility] [id number] [place] [address] 10576- 1503 15 Jan, 2016 [place] [id number] [place] [address] 24941- 4621 Jan, Weakness R53.1 ; Fatigue, unspecified type R53.83 ; PVD ( peripheral vascular disease) I73.9 ; Acute osteomyelitis of other site M86.18 ; Type 2 diabetes mellitus with diabetic neuropathy, unspecified E11.40 and 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 [place] [id number] [place] [address] 89570- 6600 30 Dec, 2015 [place] [id number] [place] [address] 49290- 5304 Dec, Type 2 diabetes mellitus with unspecified complications E11.8 [place] [id number] [place] [address] 02652- 7013 Dec, [place] [address] 73565- 6269 Dec, Pressure ulcer, unspecified pressure ulcer stage L89.90 and Type 2 diabetes mellitus with unspecified complications E11.8 [facility] [id number] [place] [address] 74842 -9963 Dec, Toe infection L08.9 [place] [id number] [place] [address] 12126- 5234 November, Dental caries K02.9 [place] [id number] [place] [address] 92843- 5757 November, [place] [id number] [place] [address] 33044- 5411 November, Dental examination Z01.20 [place] [address] 76001- 1137 28 Sep, 2015 Lipoma of torso D17.1 and Thoracic neuritis M54.14 [place] [id number] [place] [address] 44192- 7652 Sep, [place] [address], [place] [address]- 1490 08 Aug, 2015 [facility] [id number] [place] [address] 62568 -9189 Jul, Dysuria R30.0 and UTI (urinary tract infection) N39.0 [facility] [id number] [place] [address] 35178- 7592 Jun, Left shoulder pain M25.512 [facility] [id number] [place] [address] 69735- 9299 May, Shoulder pain, left M25.512 [place] [id number] [place] [address] 64220- 7783 May, [facility] [id number] [place] [address] 65186- 2144 May, [facility] [id number] [place] [address] 56361- 7045 May, Left shoulder pain M25.512 [facility] [id number] [place] [address] 72804- 7642 May, [facility] [id number] [place] [address] 74028- 6369 Apr, Encounter for immunization Z23 [place] [id number] [place] [address] 82579- 8326 Apr, Urinary tract infection, site not specified N39.0 ; Hypotension, unspecified I95.9 ; Type 2 diabetes mellitus with unspecified complications E11.8 and Generalized edema R60.1 [place] [id number] [place] [address] 42226- 5665 Apr, [facility] [id number] [place] [address] 08035- 3891 Mar, Diabetes with other specified manifestations, type II or unspecified type, not stated as uncontrolled 250.80 [place] [address] [place] [address]- 8421 Feb, Gout 274.9 and Diabetes 250.00 [facility] [id number] [place] [address] 09206- 7313 Jan, [facility] [id number] [place] [address] 17282- 4220 November, CAD (coronary artery disease) 414.00 and CHF (congestive heart failure) 428.0 [facility] [id number] [place] [address] 17231- 3146 Oct, [facility] [id number] [place] [address] 30015- 6195 Oct, [facility] [id number] [place] [address] 85669- 4294 Oct, [facility] [id number] [place] [address] 32807- 4972 Sep, [facility] [id number] [place] [address] 35742- 8367 Sep, [facility] [address] [place] [address] 84102- 1579 Sep, [facility] [id number] [place] [address] 32121- 4654 Sep, [facility] [address] [place] [address] 06560- 7588 Aug, [facility] [address], [place] [address]- 8839 Aug, [facility] [address] [place] [address] 35062- 8314 Aug, [facility] [id number] [address]- 5788 Aug, [facility] [address], [place] [address]- 9693 Aug, [facility] [place] [facility] [address] [id number] [place] [address]- 2163 Aug, [facility] [place] [facility] [address] [id number] [place] [address]- 3712 Aug, [facility] [place] [facility] [address] [id number] [place] 2731 Aug, [facility] [place] [facility] [address] [id number] [place] [address]- 8288 Jul, [facility] [place] [facility] [address] [id number] [place] [address]- 7093 Jul, [facility] [place] [facility] [address] [id number] [place] [address]- 6028 Jul, [facility] [place] [facility] [address] [id number] [place] [address]- 8034 Jul, [facility] [place] [facility] [address] [id number] [place] [address]- 4610 Jul, [facility] [place] [facility] [address] [id number] [place] [address]- 0912 Jul, [facility] [place] [facility] [address] [id number] [place] [address]- 6549 Jul, [facility] [place] [facility] [address] [id number] [place] [address]- 5014 Jul, [facility] [place] [facility] [address] [id number], [place] [address]- 0087 Jul, [facility] [place] [facility] [address] [id number] [place] [address]- 8543 Jul, [facility] [place] [facility] [address] [id number] [place] [address]- 5824 Jun, [facility] [place] [facility] [address] [id number] [place] [address]- 1201 Jun, [facility] [place] [facility] [address] [id number], [place] [address]- 1232 Jun, [facility] [place] [facility] [address] [id number] [place] [address]- 1274 Jun, [facility] [place] [facility] [address] [id number] [place] 8697 Jun, [facility] [place] [facility] [address] [id number] [place] [address]- 5582 Jun, [facility] [place] [facility] [address] [id number] [place] [address]- 2717 Jun, [facility] [place] [facility] [address] [id number] [place] [address]- 4799 Jun, [facility] [place] [facility] [address] [id number] [place] [address]- 0179 Jun, [facility] [place] [facility] [address] [id number] [place] [address]- 2388 Jun, [facility] [place] [facility] [address] [id number] [place] [address]- 4484 May, [facility] [place] [facility] [address] [id number] [place] [address]- 8812 May, [facility] [place] [facility] [address] [id number] [place] [address]- 2464 Mar, [facility] [place] [facility] [address] [id number] [place] [address]- 3608 Mar, [facility] [place] [facility] [address] [id number] [place] [address]- 6457 Mar, [facility] [place] [facility] [address] [id number] [place] [address]- 3961 Mar, [facility] [place] [facility] [address] [id number] [place] [address]- 7626 Feb, [facility] [place] [facility] [address] [id number] [place] [address]- 1744 Feb, [facility] [place] [facility] [address] [id number] [place] [address]- 3400 Feb, [facility] [place] [facility] [address] [id number] [place] [address]- 1508 Jan, [facility] [place] [facility] [address] [id number] [place] [address] Jan, [facility] [place] [facility] [address] [id number] [place] [address] Jan, [facility] [place] [facility] [address] [id number] [place] [address] Jan, [facility] [place] [facility] [address] [id number] [place] [address] Jan, [facility] [place] [facility] [address] [id number] [place] [address] Jan, [facility] [place] [facility] [address] [id number] [place] [address] Jan, [facility] [place] [facility] [address] [id number] [place] [address] Jan, [facility] [place] [facility] [address] [id number] [place] [address] Jan, [facility] [place] [facility] [address] [id number] [place] [address] Jan, [facility] [place] [facility] [address] [id number] [place] [address] Dec, [facility] [place] [facility] [address] [id number] [place] [address] Dec, [facility] [place] [facility] [address] [id number] [place] [address] November, [facility] [place] [facility] [address] [id number] [place] [address] November, [facility] [place] [facility] [address] [id number] [place] [address] November, [facility] [place] [facility] [address] [id number] [place] [address] November, [facility] [place] [facility] [address] [id number] [place] [address] November, [facility] [place] [facility] [address] [id number] [place] [address] November, [facility] [place] [facility] [address] [id number] [place] [address] November, [facility] [place] [facility] [address] [id number] [place] [place] [address] Oct, [facility] [place] [facility] [address] [id number] [place] [address] Oct, [facility] [place] [facility] [address] [id number] [place] [address] Sep, [facility] [place] [facility] [address] [id number] [place] [address] Sep, [facility] [place] [facility] [address] [id number] [place] [address] 14[address] Sep, [facility] [place] [facility] [address] [id number] [place] [address]- 8226 Sep, [facility] [place] [facility] [address] [id number] [place] [address]- 3[address] Sep, [facility] [place] [facility] [address] [id number] [place] [address]- [address] Sep, [facility] [place] [facility] [address] [id number] [place] [address]- 4653 Sep, [facility] [place] [facility] [address] [id number] [place] [address]- 9189 Sep, [facility] [place] [facility] [address] [id number] [place] [address]- 7077 Sep, [facility] [place] [facility] [address] [id number] [place] [address]- 6441 Sep, [facility] [place] [facility] [address] [id number] [place] [address]- 5[address] Aug, [facility] [place] [facility] [address] [id number] [place] [address]- 1380 Aug, [facility] [place] [facility] [address] [id number] [place] [address]- 46[address] Jul, [facility] [place] [facility] [address] [id number] [place] [address]- 0980 Jul, [facility] [place] [facility] [address] [id number] [place] [address]- 7979 Jul, [facility] [place] [facility] [address] [id number] [place] [address]- 6495 Jul, [facility] [place] [facility] [address] [id number] [place] [address]- 3[address] Jul, [facility] [place] [facility] [address] [id number] [place] [address]- 9104 Jul, [facility] [place] [facility] [address] [id number] [place] [address]- 0358 Jun, [facility] [place] [facility] [address] [id number] [place] [address]- 7634 Jun, [facility] [place] [facility] [address] [id number] [place] [address]- 4351 Jun, [facility] [place] [facility] [address] [id number] [place] [address]- 5583 Jun, [facility] [place] [facility] [address] [id number] [place] [address]- 5692 May, [facility] [place] [facility] [address] [id number] [place] [address]- 1651 14 May, 2013 [facility] [place] [facility] [address] [id number] [place] [address]- 7153 May, [facility] [place] [facility] [address] [id number] [place] [address]- 5781 May, [facility] [place] [facility] [address] [id number] [place] [address]- 7397 May, [facility] [place] [facility] [address] [id number] [place] [address]- 6881 Apr, [facility] [place] [facility] [address] [id number] [place] [address]- 1710 Apr, [facility] [place] [facility] [address] [id number] [place] [address]- 2488 Apr, [facility] [place] [facility] [address] [id number] [place] [address]- 4359 Apr, [facility] [place] [facility] [address] [id number] [place] [address]- 2110 Apr, [facility] [place] [facility] [address] [id number] [place] [address]- 2862 Apr, [facility] [place] [facility] [address] [id number] [place] [address]- 8399 Apr, [facility] [place] [facility] [address] [id number] [place] [address]- 5731 Apr, [facility] [place] [facility] [address] [id number] [place] [address]- 3182 Apr, [facility] [place] [facility] [address] [id number] [place] [address]- 0472 Apr, [facility] [place] [facility] [address] [id number] [place] [address]- 5536 Apr, [facility] [place] [facility] [address] [id number] [place] [address]- 7967 Apr, [facility] [place] [facility] [address] [id number] [place] [address]- 1108 Mar, [facility] [place] [facility] [address] [id number] [place] [address]- 2546 Mar, [facility] [place] [facility] [address] [id number] [place] [address]- 4067 Feb, [facility] [place] [facility] [address] [id number] [place] [address]- 5079 Jan, [facility] [place] [facility] [address] [id number] [place] [address]- 5417 Jan, [facility] [place] [facility] [address] [id number] [place] [address]- 0193 Jan, [facility] [place] [facility] [address] [id number] [place] [address]- 9277 Jan, [facility] [place] [facility] [address] [id number] [place] [address]- 3515 Dec, [facility] [place] [facility] [address] [id number] [place] [address]- 5478 Dec, [facility] [place] [facility] [address] [id number] [place] [address]- 4567 Dec, [facility] [place] [facility] [address] [id number] [place] [address]- 0975 Dec, [facility] [place] [facility] [address] [id number] [place] [address]- 6182 Dec, [facility] [place] [facility] [address] [id number] [place] [address]- 2124 Dec, [facility] [place] [facility] [address] [id number] [place] [address]- 7604 Dec, [facility] [place] [facility] [address] [id number] [place] [address]- 8484 November, [facility] [place] [facility] [address] [id number] [place] [address]- 1272 November, [facility] [place] [facility] [address] [id number] [place] [address]- 6886 November, [facility] [place] [facility] [address] [id number] [place] [address]- 0469 08 Oct, 2012 [facility] [address] [id number] [place] [address]- 6098 Oct, [facility] [address] [id number] [place] [address]- 9066 Oct, [facility] [address] [id number] [place] [address]- 7974 Oct, [facility] [address] [id number] [place] [address]- 1672 Oct, [facility] [address] [id number] [place] [address]- 3288 Sep, [facility] [address] [id number] [place] [address]- 4344 Sep, [facility] [address] [id number] [place] [address]- 8601 Sep, [facility] [address] [id number] [place] [address]- 4615 Sep, [facility] [address] [id number] [place] [address]- 3180 Aug, [facility] [address] [id number] [place] [address]- 6112 Aug, [facility] [address] [id number] [place] [address]- 2546 Aug, [facility] [address] [id number] [place] [address]- 2542 Aug, [facility] [place] [facility] [address] [id number] [place] [address]- 8716 Jul, [facility] [place] [facility] [address] [id number] [place] [address]- 2546 Jul, [facility] [place] [facility] [address] [id number] [place] [address]- 8640 Jun, [facility] [place] [facility] [address] [id number] [place] [address]- 1388 Jun, [facility] [place] [facility] [address] [id number] [place] [address]- 3042 Jun, [facility] [place] [facility] [address] [facility] [id number] [place] [address] Jun, [facility] [place] [facility] [address] [id number] [place] [address]- 8126 May, [facility] [place] [facility] [address] [id number] [place] [address]- 5838 May, [facility] [place] [facility] [id number] [place] [address], [place] [address]- 3026 May, [facility] [place] [facility] [address] [facility] [id number] [place] [address]- 3258 May, [facility] [place] [facility] [address] [id number], [place] [address]- 8145 Apr, [facility] [place] [facility] [address] [id number] [place] [address]- 0611 Apr, [facility] [place] [facility] [address] [facility] [id number], [place] [address]- 1584 Apr, [facility] [place] [facility] [address] [id number], [place] [address]- 2452 Apr, [facility] [place] [facility] [address] [id number], [place] [address]- 1280 Apr, [facility] [place] [facility] [address] [id number], [place] [address]- 6493 Apr, [facility] [place] [facility] [address] [facility] [id number], [place] [address]- 3319 Apr, [facility] [place] [facility] [address] [facility] [id number], [place] [address]- 4343 Apr, [facility] [place] [facility] [address] [id number] [place] [address]- 6850 Apr, [facility] [place] [facility] [address] [id number] [place] [address]- 4290 Apr, [facility] [place] [facility] [address] [id number] [place] [address]- 6190 Feb, [facility] [place] [facility] [address] [id number] [place] [address]- 7720 Feb, [facility] [place] [facility] [address] [id number] [place] [address]- 4751 Jan, [facility] [place] [facility] [address] [id number] [place] [address]- 7482 Jan, [facility] [place] [facility] [address] [id number] [place] [address]- 5692 Jan, [facility] [place] [facility] [address] [id number] [place] [address]- 4691 Jan, [facility] [place] [facility] [address] [id number] [place] [address]- 2982 Jan, [facility] [place] [facility] [address] [id number] [place] [address]- 3251 Jan, [facility] [place] [facility] [address] [id number] [place] [address]- 2430 Dec, [facility] [place] [facility] [address] [id number] [place] [address]- 2452 November, [facility] [place] [facility] [address] [id number] [place] [address]- 3084 November, [facility] [place] [facility] [address] [id number] [place] [address]- 7468 November, [facility] [place] [facility] [address] [id number] [place] [address]- 5526 Sep, [facility] [place] [facility] [address] [id number] [place] [address]- 1403 Sep, [facility] [place] [facility] [address] [id number] [place] [address]- 6250 Sep, [facility] [place] [facility] [address] [id number] [place] [address]- 2154 Sep, [facility] [place] [facility] [address] [id number] [place] [address]- 5304 Sep, [facility] [place] [facility] [address] [id number] [place] [address]- 1187 Sep, [facility] [place] [facility] [address] [id number] [place] [address]- 3941 Aug, [facility] [place] [facility] [address] [id number] [place] [address]- 3180 Aug, [facility] [place] [facility] [address] [id number] [place] [address]- 9346 Aug, [facility] [place] [facility] [address] [id number] [place] [address]- 4934 Jul, [facility] [place] [facility] [address] [id number] [place] [address]- 1446 Jul, [facility] [place] [facility] [address] [id number] [place] [address]- 7349 Jul, [facility] [place] [facility] [address] [id number] [place] [address]- 5470 Jul, [facility] [place] [facility] [address] [id number], [place] [address]- 6245 Jun, [facility] [place] [facility] [address] [id number] [place] [address]- 9637 Jun, [facility] [place] [facility] [address] [id number] [place] [address]- 6828 Jun, [facility] [place] [facility] [address] [id number] [place] [address]- 4515 Jun, [facility] [place] [facility] [address] [id number], [place] [address]- 0961 05 Jun, 2011 [facility] [address] [id number] [place] [address]- 3956 Jun, [facility] [place] [facility] [address] [id number] [place] [address]- 9316 May, [facility] [place] [facility] [address] [id number] [place] [address]- 6436 May, [facility] [place] [facility] [address] [id number] [place] [address]- 4082 May, [facility] [place] [facility] [address] [id number] [place] [address]- 5822 Apr, [facility] [place] [facility] [address] [id number] [place] [address]- 2277 Jan, [facility] [address] [facility] [id number] [place] [address]- 8240 Jun, [facility] [place] [facility] [address] [id number] [place] [address]- 3564 Jun, [facility] [place] [facility] [address] [facility] [id number] [place] [address]- 9607 15 Jun, 2010 [facility] [place] [facility] [address] [facility] [id number] [place] [address]- 8370 15 Jun, 2010 [facility] [place] [facility] [address] [facility] [id number] [place] [address] 254 15 Jun, 2010 [facility] [place] [facility] [address] [id number] [place] [address]- 2546 Jun, [facility] [place] [facility] [address] [id number] [place] [address] 2546 Jun, [facility] [place] [facility] [address] [facility] [id number] [place] [address]- 2544 Apr, [facility] [place] [facility] [address] [facility] [id number] [place] [address]- 4183 Feb, [facility] [place] [facility] [address] [id number] [place] [address]- 8423 15 Aug, 2009 [facility] [address] [id number] [place] [address]- 3210 18 Jul, 2009 [facility] [place] [facility] [address] [id number] [place] [address] 2546 11 Jul, 2009 [facility] [address] [id number] [place] [address] 2546 29 Jun, 2009 [facility] [place] [facility] [address] [id number] [place] [address] 2547 Jun, [facility] [place] [facility] [address] [id number] [place] [address]- 1275 Jun, [facility] [place] [facility] [address] [id number] [place] [address]- 4829 Jun, [facility] [place] [facility] [address] [id number] [place] [address]- 9242 16 Jun, 2009 [facility] [address] [id number] [place] [address]- 1972 Jun, [facility] [place] [facility] [address] [id number] [place] [address]- 0464 Jun, [facility] [place] [facility] [address] [facility] [id number] [place] [address]- 1112 30 May, 2009 [facility] [place] [facility] [address] [id number] [place] [address]- 1353 27 May, 2009 [facility] [place] [facility] [address] [id number] [place] [address] 2540 23 May, 2009 [facility] [place] [facility] [address] [id number] [place] [address] 2546 18 May, 2009 [facility] [place] [facility] [address] [id number] [place] [address]- 2542 18 May, 2009 [facility] [place] [facility] [address] [id number] [place] [address] 2547 May, [facility] [address] [facility] [id number], [place] [address]- 2546 May, [facility] [address] [facility] [id number], [place] [address]- 2546 Apr, [facility] [address] [facility] [id number], [place] [address]- 2546 Apr, [facility] [address] [id number], [place] [address]- 2546 Jan, [facility] [address] [facility] [id number], [place] [address]- 2546 Oct, IMMUNIZATIONS No Known Immunizations SOCIAL HISTORY Never Assessed REASON FOR VISIT HIB Exposure PLAN OF CARE VITAL SIGNS MEDICATIONS Unknown [...]
--- OUTSIDE RECORDS SUMMARY | 2018-11-09 13:08 | XMS REPORT ---
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 Name Role Phone PRABHA HILL Unavailable PROBLEMS Type Condition ICD9-CM Code [id number] Code Onset Dates Condition Status SNOMED Code Problem Hypernatremia E87.0 Active 51665656 Problem Hallucinations R44.3 Active 3567232 Problem Hypoglycemia E16.2 Active 282563147 Problem Anxiety F41.9 Active 49639061 Problem Dementia in other diseases classified elsewhere without behavioral disturbance F02.80 Active 888673153 Problem Neurogenic orthostatic hypotension G90.3 Active 802690772 Problem Dementia with Lewy bodies G31.83 Active 925441276 Problem Coronary artery disease involving chev[place]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[place] heart without angina pectoris I25.10 Active 6421229030355 Problem Parkinsons disease G20 Active 16381056 Problem Unsteady gait R26.81 Active 63118114 Problem Mixed stress and urge urinary incontinence N39.46 Active 852320110 Problem Episodic cluster headache, not intractable G44.019 Active 959082354 Problem PVD (peripheral vascular disease) I73.9 Active 046416227 Problem 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 Active 037017512 Problem Dysuria R30.0 Active 46203035 Problem Type 2 diabetes mellitus with unspecified complications E11.8 Active 98082668 Problem Neuropathy G62.9 Active 334225106 Problem Polydipsia R63.1 Active 55671522 Problem Essential hypertension I10 Active 16108458 Problem Dysthymia F34.1 Active 45686609 Problem Hypothyroidism (acquired) E03.9 Active 413276094 Problem Hyperlipemia, mixed E78.2 Active 903139100 ALLERGIES No Information ENCOUNTERS Encounter Location Date Diagnosis [facility] [id number], [place] [address] Feb, [facility] [id number] [place] [address] 51167- 4364 Jan, Left shoulder pain M25.512 [facility] [address] 48045- 3941 Dec, Parkinsons disease G20 [facility] [id number] [place] [address] 43269- 9293 Dec, Left shoulder pain M25.512 [facility] [id number] [place] [address] 06384- 0120 Dec, Type 2 diabetes mellitus with unspecified complications E11.8 ; Anxiety F41.9 ; Therapeutic drug monitoring Z51.81 and Analgesic use Z79.899 [facility] [id number] [place] [address] 47299- 2892 November, [place] [address] 11694- 7677 November, [facility] [address] 91566- 9201 November, Left shoulder pain M25.512 [facility] [id number] [place] [address] 42833- 7387 Oct, [facility] [id number] [place] [address] 02904 -5263 Oct, [facility] [id number] [place] [address] 54149- 7890 Oct, Parkinsons disease G20 [facility] [id number] [place] [address] 91121 -2659 Oct, Acute cystitis without hematuria N30.00 and Viral upper respiratory tract infection J06.9 [facility] [id number] [place] [address] 81020- 2563 Oct, [facility] [id number] [place] [address] 71134- 8871 Oct, Type 2 diabetes mellitus with unspecified complications E11.8 [place] [id number] [place] [address] 95130- 4354 Oct, Left shoulder pain M25.512 [place] [id number] [place] [address] 24250- 5718 Oct, Type 2 diabetes mellitus with unspecified complications E11.8 ; Dysuria R30.0 and Neurogenic orthostatic hypotension G90.3 [place] [address] 63916- 9279 Sep, Left shoulder pain M25.512 [place] [address] 49781- 2317 Sep, Medicare annual wellness visit, initial Z00.00 ; Parkinsons disease G20 ; Type 2 diabetes mellitus with unspecified complications E11.8 ; Essential hypertension I10 ; Coronary artery disease involving che[place]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[place] heart without angina pectoris I25.10 ; Hypothyroidism (acquired ) E03.9 ; PVD (peripheral vascular disease) I73.9 ; Dysthymia F34.1 ; Hyperlipemia, mixed E78.2 ; Neuropathy G62.9 ; Encounter for immunization Z23 ; Encounter for other screening for malignant neoplasm of breast Z12.39 and Mixed stress and urge urinary incontinence N39.46 [place] [id number] [place] [address] 56811- 9567 Aug, Parkinsons disease G20 [place] [id number] [place] [address] 97353- 4812 Aug, Type 2 diabetes mellitus with unspecified complications E11.8 ; Left shoulder pain M25.512 and Hypotensive episode I95.9 [place] [id number] [place] [address] 53214- 1452 09 Aug, 2017 Coronary artery disease involving che[place]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[place] heart without angina pectoris I25.10 [place] [id number] [place] [address] 69788- 8846 07 Aug, 2017 Type 2 diabetes mellitus with unspecified complications E11.8 [place] [id number] [place] [address] 07333- 7638 Jul, Callus of foot L84 [place] [address] 29793- 4863 Jul, [place] [id number] [place] [address] 16051- 9151 Jul, Callus of foot L84 ; Episodic cluster headache, not intractable G44.019 ; Type 2 diabetes mellitus with unspecified complications E11.8 and Parkinsons disease G20 [place] [id number] [place] [address] 62917- 4792 Jul, [place] [id number] [place] [address] 91007- 1111 Jul, [place] [id number] [place] [address] 44167- 9720 Jun, Type 2 diabetes mellitus with unspecified complications E11.8 ; Unsteady gait R26.81 ; Forgetfulness R68.89 and Hallucinations R44.3 [place] [id number] [place] [address] 60957- 1239 Jun, [place] [id number] [place] [address] 62845- 8143 Jun, Left shoulder pain M25.512 [place] [id number] [place] [address] 20864- 7410 May, Hypernatremia E87.0 and Polydipsia R63.1 [place] [id number] [place] [address] 02398- 5762 May, Hypernatremia E87.0 and Polydipsia R63.1 [place] [id number] [place] [address] 90823- 7968 May, Hypoglycemia E16.2 ; Dysuria R30.0 ; Unsteadiness on feet R26.81 ; Forgetfulness R68.89 ; Type 2 diabetes mellitus with unspecified complications E11.8 and Yeast infection involving the vagina and surrounding area B37.3 [facility] [id number] [place] [address] 45254- 0495 May, Acute cystitis without hematuria N30.00 [facility] [id number] [place] [address] 58974 -6979 28 Apr, 2017 Dysuria R30.0 and Acute cystitis without hematuria N30.00 [facility] [address] 01386- 5397 05 Apr, 2017 Hypernatremia E87.0 and Polydipsia R63.1 [place] [address] 10354- 3038 02 Apr, 2017 Vertigo R42 and Type 2 diabetes mellitus with unspecified complications E11.8 [place] [address] 91191- 3921 20 Mar, 2017 [facility] [address] 72878- 2759 19 Mar, 2017 Left shoulder pain M25.512 [place] [address] 70148- 1145 13 Mar, 2017 Vertigo R42 [place] [address] 86994- 4286 12 Mar, 2017 Polydipsia R63.1 [place] [address] 88208- 1103 Mar, Polydipsia R63.1 [place] [id number] [place] [address] 55710- 8253 11 Mar, 2017 Vertigo R42 [place] [address] 12593- 8823 07 Mar, 2017 Type 2 diabetes mellitus with unspecified complications E11.8 ; Vertigo R42 ; Polydipsia R63.1 ; Polyuria R35.8 ; Hypothyroidism ( acquired) E03.9 ; Abnormal urinalysis R82.90 [address] [facility] [id number] [place] [address] 69990- 7221 05 Mar, 2017 Coronary artery disease of chevak artery with stable angina pectoris, unspecified whether chevak or transplanted heart I25.118 ; Systolic CHF, chronic I50.22 ; Hyperlipemia, mixed E78.2 and Essential hypertension I10 [facility] [address] [id number] Feb, Dental caries K02.9 [place] [address] 06737- 8804 Feb, Type 2 diabetes mellitus with diabetic neuropathy, unspecified E11.40 [place] [address] 01890- 2681 Dec, Left shoulder pain M25.512 [place] [address] 03243- 2278 Dec, [place] [address] 11650- 8075 Dec, Type 2 diabetes mellitus with unspecified complications E11.8 [facility] [address] [id number] Dec, Dental examination Z01.20 [place] [id number] [place] [address] 70973- 4642 Dec, Type 2 diabetes mellitus with diabetic neuropathy, unspecified E11.40 [facility] [address] 49406- 5673 Dec, [place] [address] 94678- 1679 Dec, Type 2 diabetes mellitus with diabetic neuropathy, unspecified E11.40 [place] [address] 74266- 8571 November, Left shoulder pain M25.512 [place] [address] 41835- 6378 November, [place] [id number] [place] [address] 56871- 9869 November, Type 2 diabetes mellitus with unspecified complications E11.8 and Dysuria R30.0 [place] [id number] [place] [address] 19128- 3392 Oct, Left shoulder pain M25.512 [place] [address] 46850- 8566 Sep, Left shoulder pain M25.512 [place] [id number] [place] [address] 29865- 4866 Sep, Pre-op testing Z01.818 [place] [id number] [place] [address] 90972- 7666 Sep, Pre-op testing Z01.818 [place] [id number] [place] [address] 44233- 5878 Sep, Pre-op testing Z01.818 [place] [id number] [place] [address] 06265- 8220 Sep, Pre-op testing Z01.818 and Mouth pain K13.79 [place] [id number] [place] [address] 85649- 4685 Sep, Left shoulder pain M25.512 [place] [id number] [place] [address] 49571- 4684 Aug, Other eczema L30.8 [place] [id number] [place] [address] 29500- 6387 06 Aug, 2016 PVD (peripheral vascular disease) I73.9 ; Type 2 diabetes mellitus with unspecified complications E11.8 ; Acute cystitis with hematuria N30.01 ; Other eczema L30.8 ; Dysuria R30.0 and Left shoulder pain M25.512 [facility] [id number] [place] [address] 75524 -6549 Jul, Otalgia of right ear H92.01 and Blood in ear canal, right H92.[address] 66289- 8701 Jul, Arthralgia, unspecified joint M25.50 ; PVD (peripheral vascular disease) I73.9 and Neuropathy G62.[address] 45920- 9184 Jul, [address] 63725- 4918 Jun, Medicare annual wellness visit, initial Z00.00 ; Cervicalgia M54.2 ; Radiculopathy of cervical region M54.12 ; Encounter for immunization Z23 ; Type 2 diabetes mellitus with unspecified complications E11.8 and Essential hypertension I10 [address] 17180- 0489 Jun, [address] 75958- 4234 14 May, 2016 Hypothyroidism (acquired) E03.[address] 68999- 8335 May, Dysuria R30.0 ; Essential hypertension I10 ; Hypothyroidism (acquired) E03.9 and PVD (peripheral vascular disease) I73.9 [facility] [address] 10268 -0973 03 May, 2016 Burning with urination R30.0 and Acute cystitis with hematuria N30.[address] 80263- 4294 May, Dental examination Z01.[address] 53745- 1931 May, Hypothyroidism (acquired) E03.[address] 74158- 3937 Feb, [facility] [id number] [place] [address] 56353- 1198 Feb, 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 ; PVD ( peripheral vascular disease) I73.9 ; Type 2 diabetes mellitus with unspecified complications E11.8 and Essential hypertension I10 [facility] [id number] [place] [address] 69250- 3807 Jan, [facility] [id number] [place] [address] 40462- 0128 Jan, Hypothyroidism (acquired) E03.9 [place] [address] 37868- 9297 Jan, [place] [id number] [place] [address] 54471- 9604 Jan, [place] [id number] [place] [address] 57521- 8188 Jan, Type 2 diabetes mellitus with unspecified complications E11.8 ; 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 and Essential ( primary) hypertension I10 [place] [id number] [place] [address] 65450- 5260 Jan, Type 2 diabetes mellitus with unspecified complications E11.8 ; 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 ; Essential hypertension I10 and PVD (peripheral vascular disease) I73.9 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 [place] [id number] [place] [address] 90947- 0783 30 Dec, 2015 [place] [address] 75908- 3055 Dec, Type 2 diabetes mellitus with unspecified complications E11.8 [place] [address] 32169- 9749 Dec, [place] [address] 01868- 9302 Dec, Pressure ulcer, unspecified pressure ulcer stage L89.90 and Type 2 diabetes mellitus with unspecified complications E11.8 [facility] [place] [address] 51003 -3428 Dec, Toe infection L08.9 [place] [address] 58098- 3883 November, Dental caries K02.9 [place] [address] 09252- 5974 November, [place] [id number] [place] [address] 42054- 4093 November, Dental examination Z01.20 [place] [id number] [place] [address] 68521- 8623 Sep, Lipoma of torso D17.1 and Thoracic neuritis M54.14 [place] [address] 40099- 3445 Sep, [place] [address] 94123- 0154 Aug, [facility] [id number] [place] [address] 68841 -4252 Jul, Dysuria R30.0 and UTI (urinary tract infection) N39.0 [place] [id number] [place] [address] 06104- 8086 Jun, Left shoulder pain M25.512 [facility] [id number] [place] [address] 77437- 8721 May, Shoulder pain, left M25.512 [place] [address] 40969- 0529 May, [place] [address] 81739- 5551 May, [place] [address] 69007- 0037 May, Left shoulder pain M25.512 [place] [address] 41079- 4423 May, [place] [address] 64828- 2467 Apr, Encounter for immunization Z23 [place] [id number] [place] [address] 68066- 0479 Apr, Urinary tract infection, site not specified N39.0 ; Hypotension, unspecified I95.9 ; Type 2 diabetes mellitus with unspecified complications E11.8 and Generalized edema R60.1 [place] [id number] [place] [address] 79477- 6480 Apr, [place] [id number] [place] [address] 02853- 4920 Mar, Diabetes with other specified manifestations, type II or unspecified type, not stated as uncontrolled 250.80 [place] [id number] [place] [address] 07378- 8735 Feb, Gout 274.9 and Diabetes 250.00 [place] [id number] [place] [address] 37931- 5640 Jan, [place] [address], [place] [address]- 1602 November, CAD (coronary artery disease) 414.00 and CHF (congestive heart failure) 428.0 [facility] [address], [place] [address]- 6403 Oct, [facility] [address], [place] [address]- 1958 Oct, [facility] [address], [place] [address]- 9499 Oct, [facility] [id number] [place] [address]- 3883 Sep, [facility] [address], [place] [address]- 3366 Sep, [facility] [address], [place] [address]- 2524 Sep, [facility] [address], [place] [address]- 8899 Sep, [facility] [address], [place] [address]- 8076 Aug, [facility] [address], [place] [address]- 6453 Aug, [facility] [address], [place] [address]- 0249 Aug, [facility] [address], [place] [address]- 2686 Aug, [facility] [address], [place] [address]- 4442 Aug, [facility] [address], [place] [address]- 9876 Aug, [facility] [address], [place] [address]- 3451 Aug, [facility] [address] [id number] [place] [address]- 9770 Aug, [facility] [place] [facility] [address] [id number] [place] [address]- 9826 Jul, [facility] [place] [facility] [address] [id number] [place] [address]- 1292 Jul, [facility] [place] [facility] [address] [id number] [place] [address]- 4603 Jul, [facility] [place] [facility] [address] [id number] [place] [address]- 8845 Jul, [facility] [place] [facility] [address] [id number] [place] [address]- 6101 Jul, [facility] [place] [facility] [address] [id number] [place] [address]- 0941 Jul, [facility] [place] [facility] [address] [id number] [place] [address]- 1101 Jul, [facility] [place] [facility] [address] [id number] [place] [address]- 8442 Jul, [facility] [place] [facility] [address] [id number] [place] [address]- 9306 Jul, [facility] [place] [facility] [address] [id number] [place] [address]- 1919 Jul, [facility] [place] [facility] [address] [id number], [place] [address]- 4395 Jun, [facility] [place] [facility] [address] [id number] [place] [address]- 9671 Jun, [facility] [place] [facility] [address] [id number] [place] [address]- 5660 Jun, [facility] [place] [facility] [address] [id number] [place] [address]- 2968 Jun, [facility] [place] [facility] [address] [id number] [place] [address]- 7864 Jun, [facility] [place] [facility] [address] [id number] [place] [address]- 7681 Jun, [facility] [place] [facility] [address] [id number] [place] 7336 Jun, [facility] [place] [facility] [address] [id number] [place] [address]- 8978 Jun, [facility] [place] [facility] [address] [id number] [place] [address]- 7597 Jun, [facility] [place] [facility] [address] [id number] [place] [address]- 2384 Jun, [facility] [place] [facility] [address] [id number] [place] [address]- 4093 May, [facility] [place] [facility] [address] [id number] [place] [address]- 1531 May, [facility] [place] [facility] [address] [id number] [place] [address]- 4467 Mar, [facility] [place] [facility] [address] [id number] [place] [address]- 6820 Mar, [facility] [place] [facility] [address] [id number] [place] [address]- 8430 Mar, [facility] [place] [facility] [address] [id number] [place] [address]- 1326 Mar, [facility] [place] [facility] [address] [id number] [place] [address]- 6378 Feb, [facility] [place] [facility] [address] [id number] [place] [address]- 6636 Feb, [facility] [place] [facility] [address] [id number] [place] [address]- 1260 Feb, [facility] [place] [facility] [address] [id number] [place] [address]- 7366 Jan, [facility] [place] [facility] [address] [id number] [place] [address]- 3901 Jan, [facility] [place] [facility] [address] [id number] [place] [address]- 2910 Jan, [facility] [place] [facility] [address] [id number] [place] [address]- 2096 Jan, [facility] [place] [facility] [address] [id number] [place] [address]- 0193 Jan, [facility] [place] [facility] [address] [id number] [place] [address]- 3992 Jan, [facility] [place] [facility] [address] [id number] [place] [address]- 4824 Jan, [facility] [place] [facility] [address] [id number] [place] [address]- 1998 Jan, [facility] [place] [facility] [address] [id number] [place] [address]- 6484 Jan, [facility] [place] [facility] [address] [id number] [place] [address]- 0391 Jan, [facility] [place] [facility] [address] [id number] [place] [address] Dec, [facility] [place] [facility] [address] [id number] [place] [address] Dec, [facility] [place] [facility] [address] [id number] [place] [address] November, [facility] [place] [facility] [address] [id number] [place] [address] November, [facility] [place] [facility] [address] [id number] [place] [address] November, [facility] [place] [facility] [address] [id number] [place] [address] November, [facility] [place] [facility] [address] [id number] [place] [address] November, [facility] [place] [facility] [address] [id number] [place] [address] November, [facility] [place] [facility] [address] [id number] [place] [address] November, [facility] [place] [facility] [address] [id number] [place] [address] Oct, [facility] [place] [facility] [address] [id number] [place] [address] Oct, [facility] [place] [facility] [address] [id number] [place] [address] Sep, [facility] [place] [facility] [address] [id number] [place] [address] Sep, [facility] [place] [facility] [address] [id number] [place] [address] Sep, [facility] [place] [facility] [address] [id number] [place] [address] Sep, [facility] [place] [facility] [address] [id number] [place] [address] Sep, [facility] [place] [facility] [address] [id number] [place] [address] Sep, [facility] [place] [facility] [address] [id number] [place] [address] Sep, [facility] [place] [facility] [address] [id number] [place] [address] Sep, [facility] [place] [facility] [address] [id number] [place] [address] Sep, [facility] [place] [facility] [address] [id number] [place] [address] Sep, [facility] [place] [facility] [address] [id number] [place] [address] Aug, [facility] [place] [facility] [address] [id number] [place] [address] 25 Aug, 2013 [facility] [address] [id number] [place] [address] Jul, [facility] [place] [facility] [address] [id number] [place] [address] 14 Jul, 2013 [facility] [place] [facility] [address] [id number] [place] [address]- 4546 Jul, [facility] [place] [facility] [address] [id number] [place] [address] Jul, [facility] [place] [facility] [address] [id number] [place] [address] Jul, [facility] [place] [facility] [address] [id number] [place] [address] 59[address] Jul, [facility] [address] [id number] [place] [address] 06 Jun, 2013 [facility] [place] [facility] [address] [id number] [place] [address] Jun, [facility] [place] [facility] [address] [id number] [place] [address] Jun, [facility] [place] [facility] [address] [facility] [id number] [place] [address] 240[address] Jun, [facility] [place] [facility] [address] [id number] [place] [address] 14 May, 2013 [facility] [place] [facility] [address] [id number] [place] [address]- 9069 14 May, 2013 [facility] [place] [facility] [address] [id number] [place] [address] 4048 May, [facility] [place] [facility] [address] [id number] [place] [address] 5886 May, [facility] [place] [facility] [address] [id number], [place] [address] May, [facility] [place] [facility] [address] [id number] [place] [address]- 7274 Apr, [facility] [place] [facility] [address] [id number] [place] [address] Apr, [facility] [place] [facility] [address] [id number] [place] [address]- 7950 Apr, [facility] [place] [facility] [address] [id number] [place] [address] 6655 Apr, [facility] [place] [facility] [address] [id number] [place] [address]- 9727 Apr, [facility] [place] [facility] [address] [id number] [place] [address]- 1717 Apr, [facility] [place] [facility] [address] [id number] [place] [address]- 9664 Apr, [facility] [place] [facility] [address] [id number] [place] [address]- 5483 Apr, [facility] [place] [facility] [address] [id number] [place] [address] 2918 Apr, [facility] [place] [facility] [address] [id number] [place] [address]- 6651 Apr, [facility] [place] [facility] [address] [id number] [place] [address]- 0100 Apr, [facility] [place] [facility] [address] [id number], [place] [address] Apr, [facility] [place] [facility] [address] [id number] [place] [address] Mar, [facility] [place] [facility] [address] [id number] [place] [address] 2920 Mar, [facility] [place] [facility] [address] [id number] [place] [address]- 2667 Feb, [facility] [place] [facility] [address] [id number] [place] [address] 2546 Jan, [facility] [place] [facility] [address] [id number] [place] [address] 0310 Jan, [facility] [place] [facility] [address] [id number] [place] [address]- 3789 Jan, [facility] [place] [facility] [address] [id number] [place] [address]- 8538 Jan, [facility] [place] [facility] [address] [id number] [place] [address]- 4081 Dec, [facility] [place] [facility] [address] [id number] [place] [address]- 4378 Dec, [facility] [place] [facility] [address] [id number] [place] [address]- 6473 Dec, [facility] [place] [facility] [address] [id number] [place] [address] 7527 Dec, [facility] [place] [facility] [address] [id number] [place] [address] 9458 Dec, [facility] [place] [facility] [address] [id number] [place] [address]- 2366 Dec, [facility] [place] [facility] [address] [id number] [place] [address] 5436 Dec, [facility] [place] [facility] [address] [id number] [place] [address]- 4131 November, [facility] [place] [facility] [address] [id number] [place] [address] 7694 November, [facility] [place] [facility] [address] [id number] [place] [address] 4297 November, [facility] [place] [facility] [address] [id number] [place] [address] Oct, [facility] [place] [facility] [address] [id number] [place] [address] 6279 Oct, [facility] [place] [facility] [address] [id number] [place] [address]- [address]46 05 Oct, 2012 [facility] [address] [id number] [place] [address] 3176 Oct, [facility] [place] [facility] [address] [id number] [place] [address]- 2546 Oct, [facility] [address] [id number] [place] [address]- 8086 Sep, [facility] [address] [id number] [place] [address]- 4456 Sep, [facility] [address] [id number] [place] [address]- 4176 Sep, [facility] [address] [id number] [place] [address] 2546 Sep, [facility] [address] [id number] [place] [address]- 2736 Aug, [facility] [address] [id number] [place] [address]- 0256 Aug, [facility] [address] [id number] [place] [address]- 4236 Aug, [facility] [address] [facility] [id number] [place] [address]- 2546 Aug, [facility] [address] [id number] [place] [address] 2546 Jul, [facility] [address] [id number] [place] [address]- 2546 Jul, [facility] [place] [facility] [address] [id number] [place] [address] 2546 Jun, [facility] [place] [facility] [address] [id number] [place] [address]- 2546 Jun, [facility] [address] [id number] [place] [address] 1266 Jun, [facility] [place] [facility] [address] [id number] [place] [address] 0340 Jun, [facility] [place] [facility] [address] [id number] [place] [address] 6434 May, [facility] [place] [facility] [address] [facility] [id number] [place] [address]- 8831 May, [facility] [place] [facility] [address] [id number] [place] [address]- 2341 May, [facility] [place] [facility] [address] [id number] [place] [address]- 5040 May, [facility] [place] [facility] [address] [id number] [place] [address], [place] [address] Apr, [facility] [place] [facility] [address] [id number] [place] [address]- 0146 Apr, [facility] [place] [facility] [address] [id number], [place] [address] 4839 Apr, [facility] [place] [facility] [address] [id number], [place] [address]- 1806 31 Apr, 2012 [facility] [place] [facility] [address] [facility] [id number], [place] [address]- 4781 30 Apr, 2012 [facility] [place] [facility] [address] [id number], [place] [address]- 3527 30 Apr, 2012 [facility] [place] [facility] [address] [id number], [place] [address]- 4893 Apr, [facility] [place] [facility] [address] [id number], [place] [address]- 4128 Apr, [facility] [place] [facility] [address] [facility] [id number], [place] [address]- 1210 16 Apr, 2012 [facility] [place] [facility] [address] [facility] [id number], [place] [address]- 8557 16 Apr, 2012 [facility] [place] [facility] [address] [id number] [place] [address]- 4616 Feb, [facility] [place] [facility] [address] [id number] [place] [address]- 6099 Feb, [facility] [place] [facility] [address] [id number] [place] [address]- 3566 Jan, [facility] [place] [facility] [address] [id number] [place] [address]- 9078 Jan, [facility] [place] [facility] [address] [id number] [place] [address]- 3473 Jan, [facility] [place] [facility] [address] [id number] [place] [address]- 0107 Jan, [facility] [place] [facility] [address] [id number] [place] [address]- 7162 Jan, [facility] [place] [facility] [address] [id number] [place] [address]- 0859 Jan, [facility] [place] [facility] [address] [id number] [place] [address]- 8980 Dec, [facility] [place] [facility] [address] [id number] [place] [address]- 5071 November, [facility] [place] [facility] [address] [id number] [place] [address]- 8098 November, [facility] [place] [facility] [address] [id number] [place] [address]- 4009 November, [facility] [place] [facility] [address] [id number] [place] [address]- 2041 Sep, [facility] [place] [facility] [address] [id number] [place] [address]- 8155 Sep, [facility] [place] [facility] [address] [id number] [place] [address]- 1929 Sep, [facility] [place] [facility] [address] [id number] [place] [address]- 9044 Sep, [facility] [place] [facility] [address] [id number] [place] [address]- 3246 07 Sep, 2011 [facility] [place] [facility] [address] [id number] [place] [address]- 5478 Sep, [facility] [place] [facility] [address] [id number] [place] [address]- 3546 13 Aug, 2011 [facility] [place] [facility] [address] [id number] [place] [address]- 4627 Aug, [facility] [place] [facility] [address] [id number] [place] [address]- 0450 Aug, [facility] [place] [facility] [address] [id number] [place] [address]- 7254 Jul, [facility] [place] [facility] [address] [id number] [place] [address]- 7289 Jul, [facility] [place] [facility] [address] [id number] [place] [address]- 9196 Jul, [facility] [place] [facility] [address] [id number] [place] [address]- 7545 Jul, [facility] [place] [facility] [address] [id number] [place] [address]- 9231 Jun, [facility] [place] [facility] [address] [id number] [place] [address]- 2841 Jun, [facility] [place] [facility] [address] [id number], [place] [address]- 9176 Jun, [facility] [place] [facility] [address] [id number] [place] [address]- 4629 Jun, [facility] [place] [facility] [address] [id number] [place] [address]- 1620 Jun, [facility] [place] [facility] [address] [id number] [place] [address]- 8262 Jun, [facility] [place] [facility] [address] [id number], [place] [address]- 9540 10 May, 2011 [facility] [address] [id number] [place] [address]- 7054 May, [facility] [place] [facility] [address] [id number] [place] [address]- 8316 May, [facility] [address] [id number] [place] [address]- 8166 Apr, [facility] [place] [facility] [address] [id number] [place] [address]- 1442 Jan, [facility] [address] [id number] [place] [address]- 1884 20 Jun, 2010 [facility] [place] [facility] [address] [id number] [place] [address]- 3539 20 Jun, 2010 [facility] [address] [facility] [id number] [place] [address]- 3981 15 Jun, 2010 [facility] [place] [facility] [address] [id number] [place] [address]- 3383 15 Jun, 2010 [facility] [place] [facility] [address] [facility] [id number] [place] [address]- 9804 15 Jun, 2010 [facility] [place] [facility] [address] [facility] [id number] [place] [address]- 0011 13 Jun, 2010 [facility] [place] [facility] [address] [facility] [id number] [place] [address]- 7279 Jun, [facility] [place] [facility] [address] [id number] [place] [address]- 2541 Apr, [facility] [place] [facility] [address] [id number] [place] [address]- 1715 17 Feb, 2010 [facility] [place] [facility] [address] [id number] [place] [address]- 8308 15 Aug, 2009 [facility] [place] [facility] [address] [facility] [id number] [place] [address]- 9557 18 Jul, 2009 [facility] [place] [facility] [address] [id number] [place] [address]- 2934 11 Jul, 2009 [facility] [place] [facility] [address] [id number] [place] [address]- 3306 29 Jun, 2009 [facility] [place] [facility] [address] [id number] [place] [address] 2546 Jun, [facility] [place] [facility] [address] [id number] [place] [address]- 9106 Jun, [facility] [place] [facility] [address] [id number] [place] [address]- 0038 Jun, [facility] [place] [facility] [address] [id number] [place] [address]- 2855 16 Jun, 2009 [facility] [place] [facility] [address] [id number] [place] [address] Jun, [facility] [place] [facility] [address] [id number] [place] [address]- 0707 Jun, [facility] [place] [facility] [address] [id number] [place] [address]- 3439 30 May, 2009 [facility] [place] [facility] [address] [id number] [place] [address]- 5049 27 May, 2009 [facility] [place] [facility] [address] [facility] [id number] [place] [address]- 6812 23 May, 2009 [facility] [place] [facility] [address] [id number], [place] [address]- 6824 18 May, 2009 [facility] [place] [facility] [address] [id number], [place] [address] 2542 18 May, 2009 [facility] [place] [facility] [address] [id number] [place] [address]- 2036 16 May, 2009 [facility] [place] [facility] [address] [id number], [place] [address]- 2546 03 May, 2009 [facility] [place] [facility] [address] [id number], [place] [address] Apr, [facility] [address] [facility] [id number] [place] [address] Apr, [facility] [address] [facility] [id number], [place] [address] Jan, [facility] [address] [facility] [id number] [place] [address]- 4856 Oct, IMMUNIZATIONS No Known Immunizations SOCIAL HISTORY Never Assessed REASON FOR VISIT Requests return call PLAN OF CARE VITAL SIGNS MEDICATIONS Unknown Medications RESULTS Name Result Date Reference Range MRI : Brain w/ and w/o Contrast 2017-11-26 PROCEDURES No Known procedures INSTRUCTIONS MEDICATIONS ADMINISTERED [...]
--- NOTE | 2018-11-09 13:09 | ED Head Injury ---
General Chief Complaint: Trauma-Non Activation Stated Complaint: HEAD LACERATION Nursing Triage Note: PT TO TRIAGE BY WHEELCHAIR WITH COMPLAINT OF FALL. PT STATES SHE WAS WALKING DOWN STEPS AND TRIPPED AND HIT BACK OF HEAD. DENIES LOC. Source: patient Exam Limitations: no limitations History of Present Illness Date Seen by Provider: Nov 09, 2018 Time Seen by Provider: 12:30 Initial Comments 78-year-old female who presents to the emergency room accompanied by her with reports of a fall. She reports that when she was walking down steps she tripped falling striking the back of her head on the steps. She denies loss of consciousness, neck pain. She does have an abrasion to the occipital area of her head. Bleeding is controlled at this time. She is on blood thinners. The patient is Restorationism and does not receive blood products. Occurred: just prior to arrival Allergies and Home Medications Allergies Coded Allergies: sulfamethoxazole (Unverified Allergy, Severe, ANAPHYLAXIS, 07/05/10) pt states severe resp distress after taking bactrim ds trimethoprim (Unverified Allergy, Severe, ANAPHYLAXIS, 07/05/10) pt states severe resp distress after taking bactrim ds ciprofloxacin (Verified Allergy, Intermediate, BLOOD SUGAR BOTTOM OUT, ) Sulfa (Sulfonamide Antibiotics) (Unverified Allergy, Mild, 07/05/10) Penicillins (Verified Allergy, Unknown, 12/14/05) protamine (Verified Allergy, Unknown, 02/07/08) Quinolones (Verified Adverse Reaction, Severe, HYPOGLYCEMIA, 05/28/17) Home Medications Aspirin 81 Mg Tablet.dr, 81 MG PO HS, (Reported) Carvedilol 6.25 Mg Tablet, 3.125 MG PO BID, (Reported) TAKES 1/2 (6.25MG) TABLETS Citalopram Hydrobromide 20 Mg Tablet, 30 MG PO DAILY, (Reported) TAKES 1 & 1/2 (20MG) TABLET Clopidogrel Bisulfate 75 Mg Tablet, 75 MG PO DAILY, (Reported) Docusate Sodium 100 Mg Capsule, 100-300 MG PO BID PRN for CONSTIPATION-1ST LINE, (Reported) Doxycycline Hyclate 100 Mg Tablet, 100 MG PO BID Prescribed by: CHITO VIDAL on 07/29/17 5754 Fenofibrate Nanocrystallized 48 Mg Tablet, 48 MG PO HS, (Reported) Furosemide 40 Mg Tablet, 40 MG PO DAILY PRN for SWELLING, (Reported) Insulin Aspart 300 Units/3 Ml Solution, 5 UNITS SQ WITH BREAKFAST, (Reported) Insulin Degludec 200 Unit/1 Ml Insuln.pen, 18 UNITS SC HS, (Reported) Levothyroxine Sodium 25 Mcg Tablet, 25 MCG PO DAILY, (Reported) Meclizine HCl 12.5 Mg Tablet, 12.5 MG PO BID PRN for DIZZINESS, (Reported) [place] 3 Polyunsat Fatty Acids 1,000 Mg Cap, 6,000 MG PO DAILY, (Reported) Rosuvastatin Calcium 10 Mg Tablet, 10 MG PO HS, (Reported) Tramadol HCl 50 Mg Tablet, 50 MG PO BID PRN for PAIN-MODERATE, (Reported) Vorapaxar Sulfate 2.08 Mg Tablet, 2.08 MG PO HS, (Reported) Patient Home Medication List Home Medication List Reviewed: Yes Review of Systems Review of Systems Constitutional: see HPI; No chills, No fever Skin: see HPI, other (large hematoma and abrasion to her occipital region) All Other Systems Reviewed Negative Unless Noted: Yes Past Ppjmudi-Xetebs-Wttvme Hx Past Med/Social Hx: Reviewed Nursing Past Med/Soc Hx Patient Social History Alcohol Use: Denies Use Recreational Drug Use: No Smoking Status: Never a Smoker 2nd Hand Smoke Exposure: No Recent Foreign Travel: No Contact w/Someone Who Travel: No Recent Infectious Disease Expo: No Recent Hopitalizations: No Immunizations Up To Date Tetanus Booster (TDap): Unknown PED Vaccines UTD: Yes Date of Pneumonia Vaccine: Jun 15, 2014 Date of Influenza Vaccine: Apr 23, 2017 Seasonal Allergies Seasonal Allergies: No Past Medical History Surgeries: Yes (hysterectomy; CBAG) CABG, Gallbladder, Hysterectomy Respiratory: Yes Pulmonary Embolism Currently Using CPAP: No Currently Using BIPAP: Yes Cardiac: Yes (CBAG) Coronary Artery Disease, High Cholesterol, Hypertension, Peripheral Vascular Neurological: Yes Neuropathy Reproductive Disorders: No [employer] WORK[employer] History: Menopausal Genitourinary: Yes Bladder Infection Gastrointestinal: Yes Gastroesophageal Reflux, Ulcer Musculoskeletal: Yes (amputation toes) Arthritis Endocrine: Yes Diabetes, Insulin dep HEENT: No Loss of Vision: Denies Hearing Impairment: Hard of Hearing Cancer: No Psychosocial: No Integumentary: No Blood Disorders: No Family Medical History Reviewed Nursing Family Hx No Pertinent Family Hx Physical Exam Vital Signs Vital Signs - First Documented 11/09/18 12:32 Pulse 62 Resp 20 B/P (MAP) 162/89 (113) Pulse Ox 99 O2 Delivery Room Air Capillary Refill : Less Than 3 Seconds Height, Weight, BMI Height: 5'3.00" Weight: 172lbs. 0.0oz. [id number]; 32.4 BMI Method:Stated General Appearance: WD/WN, no apparent distress HEENT: PERRL/EOMI, normal ENT inspection, TMs normal, pharynx normal Neck: non-tender, full range of motion, supple, normal inspection Cardiovascular: normal peripheral pulses, regular rate, rhythm, no edema, no gallop, no JVD, no murmur Respiratory: chest non-tender, lungs clear, normal breath sounds, no respiratory distress, no accessory muscle use Back: normal inspection, no CVA tenderness, no vertebral tenderness Extremities: normal capillary refill Psychiatric: alert, oriented x 3 [place] Nerves: normal hearing, normal speech, PERRL Coordination/Gait: normal finger to nose, normal gait Motor/Sensory: no motor deficit, no sensory deficit, no pronator drift Skin: normal color, warm/dry, other (hematoma with abrasion to occipital area. Bleeding is controlled. Small skin tear to her right forearm.) Alex Coma Score Best Eye Response: (4) Open Spontaneously Best Verbal Response: (5) Oriented Best Motor Response: (6) Obeys Commands [place] Total: 15 Progress/Results/Core Measures Results/Orders Lab Results Laboratory Tests Test 11/09/18 13:44 Range/Units White Blood Count 6.5 4.3-11.0 10^3/uL Red Blood Count 5.09 4.35-5.85 10^6/uL Hemoglobin 15.0 11.5-16.0 G/DL Hematocrit 45 35-52 % Mean Corpuscular Volume 88 80-99 FL Mean Corpuscular Hemoglobin 30 25-34 PG Mean Corpuscular Hemoglobin Concent 33 32-36 G/DL Red Cell Distribution Width 13.5 10.0-14.5 % Platelet Count 245 130-400 10^3/uL Mean Platelet Volume 11.0 H 7.4-10.4 FL Neutrophils (%) (Auto) 67 42-75 % Lymphocytes (%) (Auto) 19 12-44 % Monocytes (%) (Auto) 10 0-12 % Eosinophils (%) (Auto) 3 0-10 % Basophils (%) (Auto) 1 0-10 % Neutrophils # (Auto) 4.4 1.8-7.8 X 10^3 Lymphocytes # (Auto) 1.3 1.0-4.0 X 10^3 Monocytes # (Auto) 0.7 0.0-1.0 X 10^3 Eosinophils # (Auto) 0.2 0.0-0.3 10^3/uL Basophils # (Auto) 0.1 0.0-0.1 10^3/uL Prothrombin Time 13.0 12.2-14.7 SEC INR Comment 1.0 0.8-1.4 Activated Partial Thromboplast Time 31 24-35 SEC Sodium Level 139 135-145 MMOL/L Potassium Level 4.6 3.6-5.0 MMOL/L Chloride Level 105 98-107 MMOL/L Carbon Dioxide Level 24 21-32 MMOL/L Anion Gap 10 5-14 MMOL/L Blood Urea Nitrogen 22 H 7-18 MG/DL Creatinine 1.05 0.60-1.30 MG/DL Estimat Glomerular Filtration Rate 51 BUN/Creatinine Ratio 21 Glucose Level 111 H 70-105 MG/DL Calcium Level 9.7 8.5-10.1 MG/DL Corrected Calcium 9.5 8.5-10.1 MG/DL Magnesium Level 2.3 1.8-2.4 MG/DL Total Bilirubin 0.4 0.1-1.0 MG/DL Aspartate Amino Transf (AST/SGOT) 23 5-34 U/L Alanine Aminotransferase (ALT/SGPT) 19 0-55 U/L Alkaline Phosphatase 44 40-136 U/L Total Protein 7.1 6.4-8.2 GM/DL Albumin 4.2 3.2-4.5 GM/DL My Orders Orders - FLORENTIN BLAIR Ct Head/Cervical Spine Wo (11/09/18 12:36) Dipht,Pertuss(Acell),Tet Adult (Boostrix (11/09/18 12:45) Cbc With Automated Diff (11/09/18 13:23) Magnesium (11/09/18 13:23) Comprehensive Metabolic Panel (11/09/18 13:23) Protime With Inr (11/09/18 13:23) Partial Thromboplastin Time (11/09/18 13:23) O2 (11/09/18 13:23) Monitor-Rhythm Ecg Trace Only (11/09/18 13:23) Ed Iv/Invasive Line Start (11/09/18 13:23) Ekg Tracing (11/09/18 13:35) Medications Given in ED Current Medications Medications Dose Ordered Sig/Joanie Route Start Time Stop Time Status Last Admin Dose Admin Diphtheria/ Tetanus/Acell Pertussis 0.5 ml ONCE ONCE IM 11/09/18 12:45 11/09/18 12:46 DC 11/09/18 13:50 0.5 ML Vital Signs/I&O 11/09/18 12:32 Pulse 62 Resp 20 B/P (MAP) 162/89 (113) Pulse Ox 99 O2 Delivery Room Air Blood Pressure Mean: 113 Progress Progress Note : Time: 14:00 Progress Note I have seen and evaluated the patient. I have informed her of her imaging studies. I have discussed the case with Dr. Phipps neurosurgery at [facility]. They would be happy to accept the patient but they are on hospital diversion at this time. 1410. [facility]. I have spoke to Dr. Stafford and Dr. Friedman neurosurgery/ ER and they agreed to accept the patient and wished to you an ER to ER transfer at this time. The patient agrees with plan of care. She remains stable at this time. She remains neurologically intact at this time. Initial ECG Impression Date: Nov 09, 2018 Initial ECG Impression Time: 14:10 Initial ECG Rate: 55 Initial ECG Rhythm: Normal Sinus Initial ECG Intervals: Normal Initial ECG Impression: Normal Initial ECG Comparisson: Unchanged Diagnostic Imaging Diagonstic Imaging: CT Plain Films/CT/US/NM/MRI: c-spine, head Comments [facility], [place] NAME: KELSEA HAWK DELICIA REC#: [id number] PT STATUS: REG ER : 1940 PHYSICIAN: FLORENTIN BLAIR ADMIT DATE: 11/09/18/ER Draft Date of Exam:11/09/18 CT HEAD/CERVICAL SPINE WO CLINICAL INDICATION: Patient fell this past hour backwards striking posterior head. Patient has head and neck pain. EXAM: Head CT without IV contrast. Axial CT scan of the cervical spine with sagittal and coronal reformations. COMPARISON: CT angiogram of the head/neck dated 04/09/2017. FINDINGS: Head CT: There is minimal hyperdense extra-axial intracranial blood along the left parafalcine frontal region, best seen on image 21. There is no other evidence of intracranial blood seen. Mild brain parenchymal volume loss again seen with the temporal lobes affected the most. There are patchy areas of low-attenuation white matter changes seen throughout both cerebral hemispheres, likely representing chronic small vessel ischemic disease. There is normal [place]-white matter distinction. There is no significant midline shift or herniation. There is no evidence of hydrocephalus. The basal cisterns are unremarkable. There is a moderate-sized area of extracranial soft tissue swelling and subcutaneous air involving the left posterior aspect of the head. There is no skull fracture. Otherwise, the orbits and globes are unremarkable. There is mild mucosal thickening involving the ethmoid sinus and right maxillary sinus. Temporal bones show no significant abnormality. Cervical spine: There is no acute cervical spine fracture or dislocation. There are small vertebral body spurs involving the cervical spine. There is no significant central canal or neuroforamen narrowing. Neck soft tissue structures show no significant abnormality. Visualized upper lung aiken are clear. IMPRESSION: 1: There is minimal extra-axial intracranial blood in the left parafalcine frontal region. Given its location, subarachnoid or subdural blood may be considered. 2: There is a moderate-sized area of extracranial soft tissue swelling and suspected laceration in the left posterior aspect of the head. There is no skull fracture. 3: Cervical spine degenerative disease with no acute cervical spine fracture or dislocation. Results of this report were discussed with Florentin Blair via the telephone on 11/09/2018 at 1315 hours. Dictated on workstation # [id number] Dict: 11/09/18 1302 Trans: 11/09/18 1344 [id number] [id number] Interpreted by: DOUG BRANDON MD Electronically signed by: Reviewed: Reviewed by Me Departure Impression Primary Impression: subarachnoid versus subdural brain bleed Disposition: XFER SHT-TRM HOSP Condition: Stable/Unchanged Transfer Time Spoke to Accepting Phy: 14:[address] Stafford and Dr. Friedman agreed to accept the patient at this time. We will be doing an ER to ER transfer. Transfer Time: 14:26 Transfer Facility: [facility] Method of Transfer: EMS Departure-Patient Inst. Referrals: MARLENI AKHTAR MD (PCP) Primary Care Physician PRABHA HILL (Family) Primary Care Physician FLORENTIN BLAIR Nov 09, 2018 13:09
--- OUTSIDE RECORDS SUMMARY | 2018-11-09 13:09 | XMS REPORT ---
Author Author PRABHA HILL [facility] Address [address] [place] [address] Care Team Providers Care Reed Dipper Name Role Phone PRABHA HILL Unavailable PROBLEMS Type Condition ICD9-CM Code MVE41-GF Code Onset Dates Condition Status SNOMED Code Problem Hypernatremia E87.0 Active 29601730 Problem Hallucinations R44.3 Active 2331634 Problem Hypoglycemia E16.2 Active 054467605 Problem Anxiety F41.9 Active 88460884 Problem Dementia in other diseases classified elsewhere without behavioral disturbance F02.80 Active 604276065 Problem Neurogenic orthostatic hypotension G90.3 Active 014702915 Problem Dementia with Lewy bodies G31.83 Active 664162518 Problem Coronary artery disease involving [place] coronary artery of [place] heart without angina pectoris I25.10 Active [id number] Problem Parkinsons disease G20 Active 05581799 Problem Unsteady gait R26.81 Active 99194183 Problem Mixed stress and urge urinary incontinence N39.46 Active 517787577 Problem Episodic cluster headache, not intractable G44.019 Active 232884283 Problem PVD (peripheral vascular disease) I73.9 Active 055148179 Problem 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 Active 838902717 Problem Dysuria R30.0 Active 20535379 Problem Type 2 diabetes mellitus with unspecified complications E11.8 Active 37895538 Problem Neuropathy G62.9 Active 535627493 Problem Polydipsia R63.1 Active 34438403 Problem Essential hypertension I10 Active 45803081 Problem Dysthymia F34.1 Active 67075393 Problem Hypothyroidism (acquired) E03.9 Active 651229305 Problem Hyperlipemia, mixed E78.2 Active 303432379 ALLERGIES No Information ENCOUNTERS Encounter Location Date Diagnosis [facility] [id number] [address] Feb, [facility] [id number] [place] [address] 24366- 6077 Jan, Left shoulder pain M25.512 [facility] [address] 51690- 5462 Dec, Parkinsons disease G20 [facility] [id number] [place] [address] 13362- 9590 Dec, Left shoulder pain M25.512 [facility] [id number] [place] [address] 29425- 5312 Dec, Type 2 diabetes mellitus with unspecified complications E11.8 ; Anxiety F41.9 ; Therapeutic drug monitoring Z51.81 and Analgesic use Z79.899 [facility] [id number] [place] [address] 89109- 1922 November, [place] [address] 80192- 9556 November, [facility] [address] 82558- 9177 November, Left shoulder pain M25.512 [facility] [id number] [place] [address] 51745- 9943 Oct, [facility] [id number] [place] [address] 97859 -7065 Oct, [facility] [id number] [place] [address] 69300- 5057 Oct, Parkinsons disease G20 [facility] [id number] [place] [address] 57072 -5763 Oct, Acute cystitis without hematuria N30.00 and Viral upper respiratory tract infection J06.9 [facility] [id number] [place] [address] 25989- 9810 Oct, [facility] [id number] [place] [address] 51485- 4818 Oct, Type 2 diabetes mellitus with unspecified complications E11.8 [place] [id number] [place] [address] 44014- 9053 Oct, Left shoulder pain M25.512 [place] [id number] [place] [address] 65961- 1824 Oct, Type 2 diabetes mellitus with unspecified complications E11.8 ; Dysuria R30.0 and Neurogenic orthostatic hypotension G90.3 [place] [address] 91730- 6052 Sep, Left shoulder pain M25.512 [place] [address] 29242- 9445 Sep, Medicare annual wellness visit, initial Z00.00 ; Parkinsons disease G20 ; Type 2 diabetes mellitus with unspecified complications E11.8 ; Essential hypertension I10 ; Coronary artery disease involving [place] coronary artery of [place] heart without angina pectoris I25.10 ; Hypothyroidism (acquired ) E03.9 ; PVD (peripheral vascular disease) I73.9 ; Dysthymia F34.1 ; Hyperlipemia, mixed E78.2 ; Neuropathy G62.9 ; Encounter for immunization Z23 ; Encounter for other screening for malignant neoplasm of breast Z12.39 and Mixed stress and urge urinary incontinence N39.46 [place] [id number] [place] [address] 94976- 3716 Aug, Parkinsons disease G20 [place] [id number] [place] [address] 72406- 2952 Aug, Type 2 diabetes mellitus with unspecified complications E11.8 ; Left shoulder pain M25.512 and Hypotensive episode I95.9 [place] [id number] [place] [address] 01977- 9693 09 Aug, 2017 Coronary artery disease involving [place] coronary artery of [place] heart without angina pectoris I25.10 [place] [id number] [place] [address] 49767- 6750 07 Aug, 2017 Type 2 diabetes mellitus with unspecified complications E11.8 [place] [id number] [place] [address] 76902- 4360 Jul, Callus of foot L84 [place] [address] 59340- 5153 Jul, [place] [id number] [place] [address] 67121- 1724 Jul, Callus of foot L84 ; Episodic cluster headache, not intractable G44.019 ; Type 2 diabetes mellitus with unspecified complications E11.8 and Parkinsons disease G20 [place] [id number] [place] [address] 08239- 6019 Jul, [place] [id number] [place] [address] 34697- 2668 Jul, [place] [id number] [place] [address] 68550- 1355 Jun, Type 2 diabetes mellitus with unspecified complications E11.8 ; Unsteady gait R26.81 ; Forgetfulness R68.89 and Hallucinations R44.3 [place] [id number] [place] [address] 78857- 7799 Jun, [place] [id number] [place] [address] 22988- 0163 Jun, Left shoulder pain M25.512 [place] [id number] [place] [address] 72955- 4809 May, Hypernatremia E87.0 and Polydipsia R63.1 [place] [id number] [place] [address] 78135- 4178 May, Hypernatremia E87.0 and Polydipsia R63.1 [place] [id number] [place] [address] 52467- 8841 May, Hypoglycemia E16.2 ; Dysuria R30.0 ; Unsteadiness on feet R26.81 ; Forgetfulness R68.89 ; Type 2 diabetes mellitus with unspecified complications E11.8 and Yeast infection involving the vagina and surrounding area B37.3 [facility] [id number] [place] [address] 80057- 8064 May, Acute cystitis without hematuria N30.00 [facility] [id number] [place] [address] 60508 -2505 28 Apr, 2017 Dysuria R30.0 and Acute cystitis without hematuria N30.00 [facility] [address] 12329- 7386 05 Apr, 2017 Hypernatremia E87.0 and Polydipsia R63.1 [place] [address] 44817- 9240 02 Apr, 2017 Vertigo R42 and Type 2 diabetes mellitus with unspecified complications E11.8 [place] [address] 17768- 1599 20 Mar, 2017 [facility] [address] 00005- 5098 19 Mar, 2017 Left shoulder pain M25.512 [place] [address] 83887- 7452 13 Mar, 2017 Vertigo R42 [place] [address] 24580- 8917 12 Mar, 2017 Polydipsia R63.1 [place] [address] 28346- 8128 Mar, Polydipsia R63.1 [place] [id number] [place] [address] 00208- 4914 11 Mar, 2017 Vertigo R42 [place] [address] 74748- 8937 07 Mar, 2017 Type 2 diabetes mellitus with unspecified complications E11.8 ; Vertigo R42 ; Polydipsia R63.1 ; Polyuria R35.8 ; Hypothyroidism ( acquired) E03.9 ; Abnormal urinalysis R82.90 and Dysthymia F34.1 [facility] [id number] [place] [address] 69437- 8136 05 Mar, 2017 Coronary artery disease of [place] artery with stable angina pectoris, unspecified whether [place] or transplanted heart I25.118 ; Systolic CHF, chronic I50.22 ; Hyperlipemia, mixed E78.2 and Essential hypertension I10 [facility] [address] [id number] Feb, Dental caries K02.9 [place] [address] 04550- 6202 Feb, Type 2 diabetes mellitus with diabetic neuropathy, unspecified E11.40 [place] [address] 27194- 5048 Dec, Left shoulder pain M25.512 [place] [address] 80688- 2118 Dec, [place] [address] 63113- 7459 Dec, Type 2 diabetes mellitus with unspecified complications E11.8 [facility] [address] [id number] Dec, Dental examination Z01.20 [place] [id number] [place] [address] 66467- 3123 Dec, Type 2 diabetes mellitus with diabetic neuropathy, unspecified E11.40 [facility] [address] 50085- 1546 Dec, [place] [address] 55359- 4020 Dec, Type 2 diabetes mellitus with diabetic neuropathy, unspecified E11.40 [place] [address] 74740- 3227 November, Left shoulder pain M25.512 [place] [address] 37821- 2921 November, [place] [id number] [place] [address] 42353- 1985 November, Type 2 diabetes mellitus with unspecified complications E11.8 and Dysuria R30.0 [place] [id number] [place] [address] 00358- 6863 Oct, Left shoulder pain M25.512 [place] [address] 61050- 2521 Sep, Left shoulder pain M25.512 [place] [id number] [place] [address] 66811- 5865 Sep, Pre-op testing Z01.818 [place] [id number] [place] [address] 59524- 1680 Sep, Pre-op testing Z01.818 [place] [id number] [place] [address] 99197- 6921 Sep, Pre-op testing Z01.818 [place] [id number] [place] [address] 89624- 3945 Sep, Pre-op testing Z01.818 and Mouth pain K13.79 [place] [id number] [place] [address] 53064- 7818 Sep, Left shoulder pain M25.512 [place] [id number] [place] [address] 84313- 2226 Aug, Other eczema L30.8 [place] [id number] [place] [address] 85086- 4241 06 Aug, 2016 PVD (peripheral vascular disease) I73.9 ; Type 2 diabetes mellitus with unspecified complications E11.8 ; Acute cystitis with hematuria N30.01 ; Other eczema L30.8 ; Dysuria R30.0 and Left shoulder pain M25.512 [facility] [id number] [place] [address] 71305 -0166 Jul, Otalgia of right ear H92.01 and Blood in ear canal, right H92.[address] 08104- 3426 Jul, Arthralgia, unspecified joint M25.50 ; PVD (peripheral vascular disease) I73.9 and Neuropathy G62.[address] 67891- 7066 Jul, [address] 57465- 4573 Jun, Medicare annual wellness visit, initial Z00.00 ; Cervicalgia M54.2 ; Radiculopathy of cervical region M54.12 ; Encounter for immunization Z23 ; Type 2 diabetes mellitus with unspecified complications E11.8 and Essential hypertension I10 [address] 34614- 6841 Jun, [address] 73786- 7355 14 May, 2016 Hypothyroidism (acquired) E03.[address] 66105- 5312 May, Dysuria R30.0 ; Essential hypertension I10 ; Hypothyroidism (acquired) E03.9 and PVD (peripheral vascular disease) I73.9 [facility] [address] 00494 -5720 03 May, 2016 Burning with urination R30.0 and Acute cystitis with hematuria N30.[address] 69665- 6722 May, Dental examination Z01.[address] 14673- 4362 May, Hypothyroidism (acquired) E03.[address] 08502- 7226 Feb, [facility] [id number] [place] [address] 06241- 2156 Feb, 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 ; PVD ( peripheral vascular disease) I73.9 ; Type 2 diabetes mellitus with unspecified complications E11.8 and Essential hypertension I10 [facility] [id number] [place] [address] 16133- 9003 Jan, [facility] [id number] [place] [address] 35847- 0984 Jan, Hypothyroidism (acquired) E03.9 [place] [address] 10946- 8721 Jan, [place] [id number] [place] [address] 59334- 9178 Jan, [place] [id number] [place] [address] 85662- 2061 Jan, Type 2 diabetes mellitus with unspecified complications E11.8 ; 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 and Essential ( primary) hypertension I10 [place] [id number] [place] [address] 57071- 8754 Jan, Type 2 diabetes mellitus with unspecified complications E11.8 ; 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 ; Essential hypertension I10 and PVD (peripheral vascular disease) I73.9 [facility] [id number] [place] [address] 79577- 4423 Jan, [place] [id number] [place] [address] 06023- 0713 Jan, [place] [id number] [place] [address] 54751- 9668 Jan, [place] [id number] [place] [address] 39346- 5138 Jan, Weakness R53.1 ; Fatigue, unspecified type R53.83 ; PVD ( peripheral vascular disease) I73.9 ; Acute osteomyelitis of other site M86.18 ; Type 2 diabetes mellitus with diabetic neuropathy, unspecified E11.40 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 [place] [id number] [place] [address] 77101- 7177 30 Dec, 2015 [place] [address] 36826- 9254 Dec, Type 2 diabetes mellitus with unspecified complications E11.8 [place] [address] 67310- 2486 Dec, [place] [address] 64918- 2683 Dec, Pressure ulcer, unspecified pressure ulcer stage L89.90 and Type 2 diabetes mellitus with unspecified complications E11.8 [facility] [place] [address] 55714 -9273 Dec, Toe infection L08.9 [place] [address] 02387- 9132 November, Dental caries K02.9 [place] [address] 31878- 3053 November, [place] [id number] [place] [address] 26295- 9065 November, Dental examination Z01.20 [place] [id number] [place] [address] 48819- 1474 Sep, Lipoma of torso D17.1 and Thoracic neuritis M54.14 [place] [address] 76820- 9601 Sep, [place] [address] 69090- 8329 Aug, [facility] [id number] [place] [address] 43912 -0426 Jul, Dysuria R30.0 and UTI (urinary tract infection) N39.0 [place] [id number] [place] [address] 43604- 5932 Jun, Left shoulder pain M25.512 [facility] [id number] [place] [address] 21293- 3025 May, Shoulder pain, left M25.512 [place] [address] 04790- 0721 May, [place] [address] 94591- 2420 May, [place] [address] 83645- 4322 May, Left shoulder pain M25.512 [place] [address] 30930- 6174 May, [place] [address] 88129- 4925 Apr, Encounter for immunization Z23 [place] [id number] [place] [address] 86381- 3454 Apr, Urinary tract infection, site not specified N39.0 ; Hypotension, unspecified I95.9 ; Type 2 diabetes mellitus with unspecified complications E11.8 and Generalized edema R60.1 [place] [id number] [place] [address] 75199- 5311 Apr, [place] [id number] [place] [address] 01792- 5760 Mar, Diabetes with other specified manifestations, type II or unspecified type, not stated as uncontrolled 250.80 [place] [id number] [place] [address] 97007- 7629 Feb, Gout 274.9 and Diabetes 250.00 [place] [id number] [place] [address] 39848- 1667 Jan, [place] [address], [place] [address]- 5226 November, CAD (coronary artery disease) 414.00 and CHF (congestive heart failure) 428.0 [facility] [address] [address]- 9473 Oct, [facility] [address], [place] [address]- 1178 Oct, [facility] [address], [place] [address]- 4595 Oct, [facility] [address] [place] [address]- 7216 Sep, [facility] [address], [place] [address]- 4085 Sep, [facility] [address], [place] [address]- 8884 Sep, [facility] [address], [place] [address]- 4927 Sep, [facility] [address], [place] [address]- 7638 Aug, [facility] [address], [place] [address]- 6925 Aug, [facility] [address] [address]- 4793 Aug, [facility] [address] [address]- 9324 Aug, [facility] [address], [place] [address]- 9886 Aug, [facility] [address] [address]- 7953 Aug, [facility] [address], [place] [address]- 1592 Aug, [facility] [address] [id number] [place] [address]- 7523 Aug, [facility] [place] [facility] [address] [id number] [place] [address]- 2713 Jul, [facility] [place] [facility] [address] [id number] [place] [address]- 8019 Jul, [facility] [place] [facility] [address] [id number] [place] [address]- 3896 Jul, [facility] [place] [facility] [address] [id number] [place] [address]- 7090 Jul, [facility] [place] [facility] [address] [id number] [place] [address]- 3907 Jul, [facility] [place] [facility] [address] [id number] [place] [address]- 2798 Jul, [facility] [place] [facility] [address] [id number] [place] [address]- 5153 Jul, [facility] [place] [facility] [address] [id number] [place] [address]- 5002 Jul, [facility] [place] [facility] [address] [id number] [place] [address]- 2366 Jul, [facility] [place] [facility] [address] [id number] [place] [address]- 5058 Jul, [facility] [place] [facility] [address] [id number] [address]- 2956 Jun, [facility] [place] [facility] [address] [id number] [place] [address]- 3701 Jun, [facility] [place] [facility] [address] [id number] [place] [address]- 1578 Jun, [facility] [place] [facility] [address] [id number] [place] [address]- 2025 Jun, [facility] [place] [facility] [address] [id number] [place] [address]- 6034 Jun, [facility] [place] [facility] [address] [id number] [place] [address]- 3594 Jun, [facility] [place] [facility] [address] [id number] [place] 4721 Jun, [facility] [place] [facility] [address] [id number] [place] [address]- 1100 Jun, [facility] [place] [facility] [address] [id number] [place] [address]- 6669 Jun, [facility] [place] [facility] [address] [id number] [place] [address]- 6870 Jun, [facility] [place] [facility] [address] [id number] [place] [address]- 7641 May, [facility] [place] [facility] [address] [id number] [place] [address]- 8862 May, [facility] [place] [facility] [address] [id number] [place] [address]- 6997 Mar, [facility] [place] [facility] [address] [id number] [place] [address]- 6839 Mar, [facility] [place] [facility] [address] [id number] [place] [address]- 1903 Mar, [facility] [place] [facility] [address] [id number] [place] [address]- 1285 Mar, [facility] [place] [facility] [address] [id number] [place] [address]- 3163 Feb, [facility] [place] [facility] [address] [id number] [place] [address]- 0209 Feb, [facility] [place] [facility] [address] [id number] [place] [address]- 3623 Feb, [facility] [place] [facility] [address] [id number] [place] [address]- 8904 Jan, [facility] [place] [facility] [address] [id number] [place] [address]- 6461 Jan, [facility] [place] [facility] [address] [id number] [place] [address]- 0829 Jan, [facility] [place] [facility] [address] [id number] [place] [address]- 1836 Jan, [facility] [place] [facility] [address] [id number] [place] [address]- 6982 Jan, [facility] [place] [facility] [address] [id number] [place] [address]- 6474 Jan, [facility] [place] [facility] [address] [id number] [place] [address]- 5488 Jan, [facility] [place] [facility] [address] [id number] [place] [address]- 8649 Jan, [facility] [place] [facility] [address] [id number] [place] [address]- 6264 Jan, [facility] [place] [facility] [address] [id number] [place] [address]- 6700 Jan, [facility] [place] [facility] [address] [id number] [place] [address]- 5056 Dec, [facility] [place] [facility] [address] [id number] [place] [address] Dec, [facility] [place] [facility] [address] [id number] [place] [address] November, [facility] [place] [facility] [address] [id number] [place] [address] November, [facility] [place] [facility] [address] [id number] [place] [address] November, [facility] [place] [facility] [address] [id number] [place] [address] November, [facility] [place] [facility] [address] [id number] [place] [address] November, [facility] [place] [facility] [address] [id number] [place] [address] November, [facility] [place] [facility] [address] [id number] [place] [address] November, [facility] [place] [facility] [address] [id number] [place] [address] Oct, [facility] [place] [facility] [address] [id number] [place] [address] Oct, [facility] [place] [facility] [address] [id number] [place] [address] Sep, [facility] [place] [facility] [address] [id number] [place] [address] Sep, [facility] [place] [facility] [address] [id number] [place] [address] Sep, [facility] [place] [facility] [address] [id number] [place] [address] Sep, [facility] [place] [facility] [address] [id number] [place] [address] Sep, [facility] [place] [facility] [address] [id number] [place] [address] Sep, [facility] [place] [facility] [address] [id number] [place] [address] Sep, [facility] [place] [facility] [address] [id number] [place] [address] Sep, [facility] [place] [facility] [address] [id number] [place] [address] Sep, [facility] [place] [facility] [address] [id number] [place] [address] Sep, [facility] [place] [facility] [address] [id number] [place] [address] Aug, [facility] [place] [facility] [address] [id number] [place] [address] Aug, 2013 [facility] [address] [id number] [place] [address] Jul, [facility] [place] [facility] [address] [id number] [place] [address] 14 Jul, 2013 [facility] [place] [facility] [address] [id number] [place] [address] Jul, [facility] [place] [facility] [address] [id number] [place] [address] Jul, [facility] [place] [facility] [address] [id number] [place] [address] Jul, [facility] [place] [facility] [address] [id number] [place] [address] 164[address] Jul, [facility] [address] [id number] [place] [address] 06 Jun, 2013 [facility] [place] [facility] [address] [id number] [place] [address] Jun, [facility] [place] [facility] [address] [id number] [place] [address] Jun, [facility] [place] [facility] [address] [facility] [id number] [place] [address] 6[address] Jun, [facility] [place] [facility] [address] [id number] [place] [address] 14 May, 2013 [facility] [place] [facility] [address] [id number] [place] [address]- 6636 14 May, 2013 [facility] [place] [facility] [address] [id number] [place] [address] 9995 May, [facility] [place] [facility] [address] [id number] [place] [address] 8697 May, [facility] [place] [facility] [address] [id number], [place] [address] May, [facility] [place] [facility] [address] [id number] [place] [address]- 9265 Apr, [facility] [place] [facility] [address] [id number] [place] [address] Apr, [facility] [place] [facility] [address] [id number] [place] [address]- 2666 Apr, [facility] [place] [facility] [address] [id number] [place] [address]- 6057 Apr, [facility] [place] [facility] [address] [id number] [place] [address]- 2640 Apr, [facility] [place] [facility] [address] [id number] [place] [address]- 47[address] Apr, [facility] [place] [facility] [address] [id number] [place] [address]- 3519 Apr, [facility] [place] [facility] [address] [id number] [place] [address]- 0609 Apr, [facility] [place] [facility] [address] [id number] [place] [address]- 5530 Apr, [facility] [place] [facility] [address] [id number] [place] [address]- 9020 Apr, [facility] [place] [facility] [address] [id number] [place] [address]- 2764 Apr, [facility] [place] [facility] [address] [id number], [place] [address] 26[address] Apr, [facility] [place] [facility] [address] [id number] [place] [address]- 3469 Mar, [facility] [place] [facility] [address] [id number] [place] [address]- 6916 Mar, [facility] [place] [facility] [address] [id number] [place] [address]- 4056 Feb, [facility] [place] [facility] [address] [id number] [place] [address]- 2546 Jan, [facility] [place] [facility] [address] [id number] [place] [address]- 6799 Jan, [facility] [place] [facility] [address] [id number] [place] [address]- 6965 Jan, [facility] [place] [facility] [address] [id number] [place] [address]- 4821 Jan, [facility] [place] [facility] [address] [id number] [place] [address]- 269[address] Dec, [facility] [place] [facility] [address] [id number] [place] [address]- 1608 Dec, [facility] [place] [facility] [address] [id number] [place] [address]- 1437 Dec, [facility] [place] [facility] [address] [id number] [place] [address]- 6141 Dec, [facility] [place] [facility] [address] [id number] [place] [address]- 8692 Dec, [facility] [place] [facility] [address] [id number] [place] [address]- 6018 Dec, [facility] [place] [facility] [address] [id number] [place] [address]- 9187 Dec, [facility] [place] [facility] [address] [id number] [place] [address]- 0864 November, [facility] [place] [facility] [address] [id number] [place] [address] 2647 November, [facility] [place] [facility] [address] [id number] [place] [address]- 3412 November, [facility] [place] [facility] [address] [id number] [place] [address]- 9780 Oct, [facility] [place] [facility] [address] [id number] [place] [address]- 4115 Oct, [facility] [place] [facility] [address] [id number] [place] [address]- 2546 05 Oct, 2012 [facility] [address] [id number] [place] [address] 5876 Oct, [facility] [place] [facility] [address] [id number] [place] [address]- 2546 Oct, [facility] [address] [id number] [place] [address]- 1116 Sep, [facility] [address] [id number] [place] [address]- 0826 Sep, [facility] [address] [id number] [place] [address]- 0656 Sep, [facility] [address] [id number] [place] [address]- 2546 Sep, [facility] [address] [id number] [place] [address]- 2126 Aug, [facility] [address] [id number] [place] [address]- 2606 Aug, [facility] [address] [id number] [place] [address]- 3066 Aug, [facility] [address] [facility] [id number] [place] [address]- 2546 Aug, [facility] [address] [id number] [place] [address]- 2546 Jul, [facility] [address] [id number] [place] [address]- 2546 Jul, [facility] [place] [facility] [address] [id number] [place] [address]- 2546 Jun, [facility] [place] [facility] [address] [id number] [place] [address]- 2546 Jun, [facility] [address] [id number] [place] [address] 44[address] Jun, [facility] [place] [facility] [address] [id number] [place] [address]- 5617 Jun, [facility] [place] [facility] [address] [id number] [place] [address]- 2527 May, [facility] [place] [facility] [address] [facility] [id number] [place] [address]- 9502 May, [facility] [place] [facility] [address] [id number] [place] [address]- 0278 May, [facility] [place] [facility] [address] [id number] [place] [address]- 1765 May, [facility] [place] [facility] [id number] [place] [address], [place] [address] Apr, [facility] [place] [facility] [address] [id number] [place] [address]- 1910 Apr, [facility] [place] [facility] [address] [id number], [place] [address]- 7210 Apr, [facility] [place] [facility] [address] [id number], [place] [address]- [address] 31 Apr, 2012 [facility] [place] [facility] [address] [facility] [id number], [place] [address]- 8724 30 Apr, 2012 [facility] [place] [facility] [address] [id number], [place] [address]- 2195 30 Apr, 2012 [facility] [place] [facility] [address] [id number], [place] [address]- 1452 Apr, [facility] [place] [facility] [address] [id number], [place] [address]- 0782 Apr, [facility] [place] [facility] [address] [facility] [id number], [place] [address]- 5484 16 Apr, 2012 [facility] [place] [facility] [address] [facility] [id number], [place] [address]- 3082 16 Apr, 2012 [facility] [place] [facility] [address] [id number] [place] [address]- 0481 Feb, [facility] [place] [facility] [address] [id number] [place] [address]- 1005 Feb, [facility] [place] [facility] [address] [id number] [place] [address]- 7836 Jan, [facility] [place] [facility] [address] [id number] [place] [address]- 1777 Jan, [facility] [place] [facility] [address] [id number] [place] [address]- 2310 Jan, [facility] [place] [facility] [address] [id number] [place] [address]- 8970 Jan, [facility] [place] [facility] [address] [id number] [place] [address]- 3602 Jan, [facility] [place] [facility] [address] [id number] [place] [address]- 2709 Jan, [facility] [place] [facility] [address] [id number] [place] [address]- 9939 Dec, [facility] [place] [facility] [address] [id number] [place] [address]- 0549 November, [facility] [place] [facility] [address] [id number] [place] [address]- 8503 November, [facility] [place] [facility] [address] [id number] [place] [address]- 4647 November, [facility] [place] [facility] [address] [id number] [place] [address]- 1077 Sep, [facility] [place] [facility] [address] [id number] [place] [address]- 4961 Sep, [facility] [place] [facility] [address] [id number] [place] [address]- 9297 Sep, [facility] [place] [facility] [address] [id number] [place] [address]- 0718 Sep, [facility] [place] [facility] [address] [id number] [place] [address]- 3349 07 Sep, 2011 [facility] [place] [facility] [address] [id number] [place] [address]- 2274 Sep, [facility] [place] [facility] [address] [id number] [place] [address]- 4506 13 Aug, 2011 [facility] [place] [facility] [address] [id number] [place] [address]- 4843 Aug, [facility] [place] [facility] [address] [id number] [place] [address]- 1300 Aug, [facility] [place] [facility] [address] [id number] [place] [address]- 7538 Jul, [facility] [place] [facility] [address] [id number] [place] [address]- 2878 Jul, [facility] [place] [facility] [address] [id number] [place] [address]- 2500 Jul, [facility] [place] [facility] [address] [id number] [place] [address]- 5923 Jul, [facility] [place] [facility] [address] [id number] [place] [address]- 3138 Jun, [facility] [place] [facility] [address] [id number] [place] [address]- 3903 Jun, [facility] [place] [facility] [address] [id number], [place] [address]- 1833 Jun, [facility] [place] [facility] [address] [id number] [place] [address]- 6308 Jun, [facility] [place] [facility] [address] [id number] [place] [address]- 4219 Jun, [facility] [place] [facility] [address] [id number] [place] [address]- 8028 Jun, [facility] [place] [facility] [address] [id number], [place] [address]- 3631 10 May, 2011 [facility] [address] [id number] [place] [address]- 1638 May, [facility] [place] [facility] [address] [id number] [place] [address]- 5566 May, [facility] [address] [id number] [place] [address]- 4426 Apr, [facility] [place] [facility] [address] [id number] [place] [address]- 0709 Jan, [facility] [address] [id number] [place] [address]- 2515 20 Jun, 2010 [facility] [place] [facility] [address] [id number] [place] [address]- 1803 20 Jun, 2010 [facility] [address] [facility] [id number] [place] [address]- 3033 15 Jun, 2010 [facility] [place] [facility] [address] [id number] [place] [address]- 1168 15 Jun, 2010 [facility] [place] [facility] [address] [facility] [id number] [place] [address]- 8790 15 Jun, 2010 [facility] [place] [facility] [address] [facility] [id number] [place] [address]- 5202 13 Jun, 2010 [facility] [place] [facility] [address] [facility] [id number] [place] [address]- 1759 Jun, [facility] [place] [facility] [address] [id number] [place] [address]- 2549 Apr, [facility] [place] [facility] [address] [id number] [place] [address]- 5433 17 Feb, 2010 [facility] [place] [facility] [address] [id number] [place] [address]- 2137 15 Aug, 2009 [facility] [place] [facility] [address] [facility] [id number] [place] [address]- 1767 18 Jul, 2009 [facility] [place] [facility] [address] [id number] [place] [address]- 7221 11 Jul, 2009 [facility] [place] [facility] [address] [id number] [place] [address]- 5710 29 Jun, 2009 [facility] [place] [facility] [address] [id number] [place] [address] 2546 Jun, [facility] [place] [facility] [address] [id number] [place] [address]- 7046 Jun, [facility] [place] [facility] [address] [id number] [place] [address]- 0182 Jun, [facility] [place] [facility] [address] [id number] [place] [address]- 8494 16 Jun, 2009 [facility] [place] [facility] [address] [id number] [place] 9137 Jun, [facility] [place] [facility] [address] [id number] [place] [address]- 3973 Jun, [facility] [place] [facility] [address] [id number] [place] [address]- 1715 30 May, 2009 [facility] [place] [facility] [address] [id number] [place] [address]- 1457 27 May, 2009 [facility] [place] [facility] [address] [facility] [id number] [place] [address]- 0020 23 May, 2009 [facility] [place] [facility] [address] [id number], [place] [address]- 6600 18 May, 2009 [facility] [place] [facility] [address] [id number], [place] [address] 2543 18 May, 2009 [facility] [place] [facility] [address] [id number] [place] [address]- 4746 16 May, 2009 [facility] [place] [facility] [address] [id number], [place] [address]- 2546 03 May, 2009 [facility] [place] [facility] [address] [id number], [place] [address]- 2123 Apr, [facility] [address] [facility] [id number] [place] [address]- 8226 Apr, [facility] [address] [facility] [id number], [place] [address]- 2546 Jan, [facility] [address] [facility] [id number] [place] [address]- 2546 Oct, IMMUNIZATIONS No Known Immunizations SOCIAL HISTORY Never Assessed REASON FOR VISIT Triage PLAN OF CARE VITAL SIGNS MEDICATIONS Unknown [...]
--- OUTSIDE RECORDS SUMMARY | 2018-11-09 13:10 | XMS REPORT ---
Author Author JENNIFER FONTENOT [facility] Address [address] [place] [address] Care Team Providers Care Rendering Equipment Tender Name Role Phone JENNIFER FONTENOT Unavailable PROBLEMS Type Condition ICD9-CM Code FDN63-TR Code Onset Dates Condition Status SNOMED Code Problem Hypernatremia E87.0 Active 05357927 Problem Hallucinations R44.3 Active 1781598 Problem Hypoglycemia E16.2 Active 622057342 Problem Anxiety F41.9 Active 22685788 Problem Dementia in other diseases classified elsewhere without behavioral disturbance F02.80 Active 245259663 Problem Neurogenic orthostatic hypotension G90.3 Active 299761059 Problem Dementia with Lewy bodies G31.83 Active 503997690 Problem 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.10 Active 4903690713032 Problem Parkinsons disease G20 Active 60512015 Problem Unsteady gait R26.81 Active 46659154 Problem Mixed stress and urge urinary incontinence N39.46 Active 203849465 Problem Episodic cluster headache, not intractable G44.019 Active 720907333 Problem PVD (peripheral vascular disease) I73.9 Active 358727163 Problem 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 Active 205412224 Problem Dysuria R30.0 Active 01612390 Problem Type 2 diabetes mellitus with unspecified complications E11.8 Active 20489918 Problem Neuropathy G62.9 Active 054474915 Problem Polydipsia R63.1 Active 62775152 Problem Essential hypertension I10 Active 22508967 Problem Dysthymia F34.1 Active 00965209 Problem Hypothyroidism (acquired) E03.9 Active 968012153 Problem Hyperlipemia, mixed E78.2 Active 826641397 ALLERGIES Substance Reaction Event Type Date Status Sulfamethoxazole-Trimethoprim Unknown Drug Allergy Oct, Active Protamine Sulfate Unknown Drug Allergy Oct, Active Penicillin V Potassium Unknown Drug Allergy Oct, Active Cipro lowers blood sugar Drug Allergy Oct, Active ENCOUNTERS Encounter Location Date Diagnosis [facility] [id number] [place] [address] 85669- 4437 Feb, [facility] [id number] [place] [address] 22951- 7500 Jan, Left shoulder pain M25.512 [facility] [address] 11198- 3089 Dec, Parkinsons disease G20 [facility] [address] 34310- 6852 Dec, Left shoulder pain M25.512 [facility] [address] 12521- 9263 Dec, Type 2 diabetes mellitus with unspecified complications E11.8 ; Anxiety F41.9 ; Therapeutic drug monitoring Z51.81 and Analgesic use Z79.899 [facility] [id number] [place] [address] 60335- 9192 November, [facility] [address] 43618- 9318 November, [facility] [address] 47471- 6109 November, Left shoulder pain M25.512 [facility] [id number] [place] [address] 36518- 2540 Oct, [facility] [id number] [place] [address] 65384 -5252 Oct, [facility] [id number] [place] [address] 89129- 8559 Oct, Parkinsons disease G20 [facility] [id number] [place] [address] 29420 -3561 Oct, Acute cystitis without hematuria N30.00 and Viral upper respiratory tract infection J06.9 [facility] [id number] [place] [address] 48631- 6526 Oct, [facility] [address] [address] 6323 Oct, Type 2 diabetes mellitus with unspecified complications E11.8 [facility] [address] [place] [address] 21467- 9397 Oct, Left shoulder pain M25.512 [facility] [id number] [place] [address] 35228- 4518 Oct, Type 2 diabetes mellitus with unspecified complications E11.8 ; Dysuria R30.0 and Neurogenic orthostatic hypotension G90.3 [facility] [id number] [place] [address] 74401- 7709 Sep, Left shoulder pain M25.512 [facility] [id number] [place] [address] 78668- 0347 Sep, Medicare annual wellness visit, initial Z00.00 ; Parkinsons disease G20 ; Type 2 diabetes mellitus with unspecified complications E11.8 ; Essential hypertension I10 ; 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.10 ; Hypothyroidism (acquired ) E03.9 ; PVD (peripheral vascular disease) I73.9 ; Dysthymia F34.1 ; Hyperlipemia, mixed E78.2 ; Neuropathy G62.9 ; Encounter for immunization Z23 ; Encounter for other screening for malignant neoplasm of breast Z12.39 and Mixed stress and urge urinary incontinence N39.46 [facility] [address] [place] [address] 62373- 1715 Aug, Parkinsons disease G20 [facility] [id number] [place] [address] 99977- 4022 Aug, Type 2 diabetes mellitus with unspecified complications E11.8 ; Left shoulder pain M25.512 and Hypotensive episode I95.9 [facility] [address] [address]- 4665 Aug, 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.10 [facility] [id number] [place] [address] 95207- 9897 07 Aug, 2017 Type 2 diabetes mellitus with unspecified complications E11.8 [facility] [id number] [place] [address] 26266- 9019 Jul, Callus of foot L84 [address] 57733- 5078 Jul, [facility] [address] 56917- 1412 Jul, Callus of foot L84 ; Episodic cluster headache, not intractable G44.019 ; Type 2 diabetes mellitus with unspecified complications E11.8 and Parkinsons disease G20 [facility] [address] 28089- 5143 Jul, [facility] [address] 18825- 7574 Jul, [facility] [address] 96596- 2415 Jun, Type 2 diabetes mellitus with unspecified complications E11.8 ; Unsteady gait R26.81 ; Forgetfulness R68.89 and Hallucinations R44.3 [facility] [id number] [place] [address] 81928- 2033 Jun, [facility] [address] 44631- 8675 Jun, Left shoulder pain M25.512 [facility] [address] 83663- 5377 13 May, 2017 Hypernatremia E87.0 and Polydipsia R63.1 [facility] [address] 02170- 3691 08 May, 2017 Hypernatremia E87.0 and Polydipsia R63.1 [facility] [address] 52313- 7852 May, Hypoglycemia E16.2 ; Dysuria R30.0 ; Unsteadiness on feet R26.81 ; Forgetfulness R68.89 ; Type 2 diabetes mellitus with unspecified complications E11.8 and Yeast infection involving the vagina and surrounding area B37.3 [facility] [id number] [place] [address] 10839- 1454 May, Acute cystitis without hematuria N30.00 [facility] [id number] [place] [address] 58526 -0494 Apr, Dysuria R30.0 and Acute cystitis without hematuria N30.00 [facility] [address] 92800- 9392 Apr, Hypernatremia E87.0 and Polydipsia R63.1 [facility] [id number] [place] [address] 96658- 5985 Apr, Vertigo R42 and Type 2 diabetes mellitus with unspecified complications E11.8 [facility] [id number] [place] [address] 29468- 4560 Mar, [facility] [address] 88795- 2202 19 Mar, 2017 Left shoulder pain M25.512 [facility] [id number] [place] [address] 73229- 1523 13 Mar, 2017 Vertigo R42 [facility] [id number] [place] [address] 54441- 3400 12 Mar, 2017 Polydipsia R63.1 [facility] [id number] [place] [address] 36268- 8784 12 Mar, 2017 Polydipsia R63.1 [facility] [id number] [place] [address] 09429- 6016 11 Mar, 2017 Vertigo R42 [facility] [address] 37513- 4797 Mar, Type 2 diabetes mellitus with unspecified complications E11.8 ; Vertigo R42 ; Polydipsia R63.1 ; Polyuria R35.8 ; Hypothyroidism ( acquired) E03.9 ; Abnormal urinalysis R82.90 and Dysthymia F34.1 [facility] [id number] [place] [address] 63043- 4389 05 Mar, 2017 Coronary artery disease of tanacross artery with stable angina pectoris, unspecified whether tanacross or transplanted heart I25.118 ; Systolic CHF, chronic I50.22 ; Hyperlipemia, mixed E78.2 and Essential hypertension I10 [facility] [address] [id number] Feb, Dental caries K02.9 [facility] [address] 53503- 5871 Feb, Type 2 diabetes mellitus with diabetic neuropathy, unspecified E11.40 [facility] [address] 72589- 9177 Dec, Left shoulder pain M25.512 [facility] [address] 60291- 3965 Dec, [facility] [address] 89136- 9314 Dec, Type 2 diabetes mellitus with unspecified complications E11.8 [facility] [id number] [place] [address] [id number] Dec, Dental examination Z01.20 [facility] [address] 45126- 5804 08 Dec, 2016 Type 2 diabetes mellitus with diabetic neuropathy, unspecified E11.40 [facility] [address] 69634- 1553 07 Dec, 2016 [facility] [address] 87595- 4215 06 Dec, 2016 Type 2 diabetes mellitus with diabetic neuropathy, unspecified E11.40 [facility] [id number] [place] [address] 28752- 3093 November, Left shoulder pain M25.512 [facility] [address] 27121- 3596 November, [facility] [address] 51054- 8519 November, Type 2 diabetes mellitus with unspecified complications E11.8 and Dysuria R30.0 [facility] [address] 65650- 4550 Oct, Left shoulder pain M25.512 [facility] [address] 11478- 1344 Sep, Left shoulder pain M25.512 [facility] [address] 40875- 9141 Sep, Pre-op testing Z01.818 [facility] [address] 94340- 8393 Sep, Pre-op testing Z01.818 [facility] [address] 83716- 6823 Sep, Pre-op testing Z01.818 [facility] [id number] [place] [address] 92161- 7945 Sep, Pre-op testing Z01.818 and Mouth pain K13.79 [facility] [address] 31784- 0897 Sep, Left shoulder pain M25.512 [facility] [address] 25378- 3998 Aug, Other eczema L30.8 [facility] [address] 55950- 6290 06 Aug, 2016 PVD (peripheral vascular disease) I73.9 ; Type 2 diabetes mellitus with unspecified complications E11.8 ; Acute cystitis with hematuria N30.01 ; Other eczema L30.8 ; Dysuria R30.0 and Left shoulder pain M25.512 [facility] [address] 59666 -7492 23 Jul, 2016 Otalgia of right ear H92.01 and Blood in ear canal, right H92.21 [facility] [address] 23988- 4189 Jul, Arthralgia, unspecified joint M25.50 ; PVD (peripheral vascular disease) I73.9 and Neuropathy G62.9 [facility] [address] 16541- 5435 Jul, [facility] [address] 14957- 4580 Jun, Medicare annual wellness visit, initial Z00.00 ; Cervicalgia M54.2 ; Radiculopathy of cervical region M54.12 ; Encounter for immunization Z23 ; Type 2 diabetes mellitus with unspecified complications E11.8 and Essential hypertension I10 [facility] [address] 80438- 1308 Jun, [facility] [address] 06907- 9738 14 May, 2016 Hypothyroidism (acquired) E03.9 [facility] [address] 93109- 3941 10 May, 2016 Dysuria R30.0 ; Essential hypertension I10 ; Hypothyroidism (acquired) E03.9 and PVD (peripheral vascular disease) I73.9 [facility] [address] 22884 -9850 03 May, 2016 Burning with urination R30.0 and Acute cystitis with hematuria N30.01 [facility] [address] 87862- 8847 May, Dental examination Z01.20 [facility] [address] [place] [address]- 3116 May, Hypothyroidism (acquired) E03.9 [facility] [address] [address]- 7997 Feb, [facility] [address] [place] [address] 13973- 4799 Feb, 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 ; PVD ( peripheral vascular disease) I73.9 ; Type 2 diabetes mellitus with unspecified complications E11.8 and Essential hypertension I10 [facility] [address] [address]- 9224 Jan, [facility] [id number] [place] [address] 51415- 0117 Jan, Hypothyroidism (acquired) E03.9 [facility] [id number] [place] [address] 62241- 5712 Jan, [facility] [address] [address]- 4060 Jan, [facility] [address] [address]- 7270 Jan, Type 2 diabetes mellitus with unspecified complications E11.8 ; 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 and Essential ( primary) hypertension I10 [facility] [address] [address]- 3618 Jan, Type 2 diabetes mellitus with unspecified complications E11.8 ; 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 ; Essential hypertension I10 and PVD (peripheral vascular disease) I73.9 [facility] [address] [address]- 3089 Jan, [facility] [address] [address]- 8490 Jan, [facility] [address] [address]- 6483 Jan, [facility] [address] [place] [address] 44880- 4537 Jan, Weakness R53.1 ; Fatigue, unspecified type R53.83 ; PVD ( peripheral vascular disease) I73.9 ; Acute osteomyelitis of other site M86.18 ; Type 2 diabetes mellitus with diabetic neuropathy, unspecified E11.40 and intermediate card tender 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.4 [facility] [id number] [place] [address] 60899- 8039 30 Dec, 2015 [facility] [id number] [place] [address] 43712- 8413 Dec, Type 2 diabetes mellitus with unspecified complications E11.8 [facility] [address] 74617- 1947 Dec, [facility] [id number] [place] [address] 54725- 5863 Dec, Pressure ulcer, unspecified pressure ulcer stage L89.90 and Type 2 diabetes mellitus with unspecified complications E11.8 [facility] [id number] [place] [address] 21769 -6634 Dec, Toe infection L08.9 [facility] [id number] [place] [address] 13205- 5522 November, Dental caries K02.9 [facility] [id number] [place] [address] 20445- 1483 November, [facility] [id number] [place] [address] 79554- 4746 November, Dental examination Z01.20 [facility] [id number] [place] [address] 07935- 8145 Sep, Lipoma of torso D17.1 and Thoracic neuritis M54.14 [facility] [id number] [place] [address] 73178- 2806 Sep, [facility] [address] 49721- 7499 08 Aug, 2015 [facility] [address] [place] [address] 26504 -0077 Jul, Dysuria R30.0 and UTI (urinary tract infection) N39.0 [facility] [address] [address]- 4633 Jun, Left shoulder pain M25.512 [facility] [id number] [place] [address] 13963- 4367 May, Shoulder pain, left M25.512 [facility] [id number] [place] [address] 76390- 7597 May, [facility] [id number] [place] [address] 27942- 0114 May, [facility] [id number] [place] [address] 59825- 0834 May, Left shoulder pain M25.512 [facility] [id number] [place] [address] 23928- 9020 May, [facility] [id number] [place] [address] 13143- 8846 Apr, Encounter for immunization Z23 [facility] [id number] [place] [address] 86405- 4914 Apr, Urinary tract infection, site not specified N39.0 ; Hypotension, unspecified I95.9 ; Type 2 diabetes mellitus with unspecified complications E11.8 and Generalized edema R60.1 [facility] [address] [place] [address] 10999- 0445 Apr, [facility] [id number] [place] [address] 61321- 0254 Mar, Diabetes with other specified manifestations, type II or unspecified type, not stated as uncontrolled 250.80 [facility] [id number] [place] [address] 11960- 5756 Feb, Gout 274.9 and Diabetes 250.00 [facility] [address] [address]- 1682 Jan, [facility] [id number] [place] [address] 41619- 5993 November, CAD (coronary artery disease) 414.00 and CHF (congestive heart failure) 428.0 [facility] [id number] [place] [address] 25597- 5299 Oct, [facility] [id number] [place] [address] 55590- 8436 Oct, [facility] [id number] [place] [address] 91892- 9511 Oct, [facility] [id number] [place] [address] 04986- 7415 Sep, [facility] [id number] [place] [address] 40502- 2188 Sep, [facility] [address] [address]- 1207 Sep, [facility] [address] [place] [address] 70352- 6723 Sep, [facility] [address] [address]- 4887 Aug, [facility] [address] [address]- 1187 Aug, [facility] [address] [address]- 2850 Aug, [facility] [address] [address]- 4836 Aug, [facility] [address] [address]- 7016 Aug, [facility] [id number] [place] [address], [place] [address]- 9958 Aug, [facility] [place] [facility] [address] [id number] [place] [address]- 0761 Aug, [facility] [place] [facility] [address] [id number] [place] [address]- 6598 Aug, [facility] [place] [facility] [address] [id number] [place] [address]- 2227 Jul, [facility] [place] [facility] [address] [id number] [place] [address]- 5175 Jul, [facility] [place] [facility] [address] [id number] [place] [address]- 7560 Jul, [facility] [place] [facility] [address] [id number] [place] [address]- 0718 Jul, [facility] [place] [facility] [address] [id number] [place] [address]- 3478 Jul, [facility] [place] [facility] [address] [id number] [place] [address]- 2313 Jul, [facility] [place] [facility] [address] [id number] [place] [address]- 4984 Jul, [facility] [place] [facility] [address] [facility] [id number] [place] [address]- 5556 Jul, [facility] [place] [facility] [address] [id number] [place] [address]- 3030 Jul, [facility] [place] [facility] [address] [id number] [place] [address]- 5893 Jul, [facility] [place] [facility] [address] [id number] [place] [address]- 4496 Jun, [facility] [place] [facility] [address] [id number] [place] [address] [address]63 Jun, [facility] [place] [facility] [address] [id number] [place] [address]- 8846 Jun, [facility] [place] [facility] [address] [id number] [place] [address]- 6532 Jun, [facility] [place] [facility] [address] [id number] [place] [address]- 6011 Jun, [facility] [place] [facility] [address] [id number] [place] [address]- 3227 Jun, [facility] [place] [facility] [address] [id number] [place] [address]- 2164 Jun, [facility] [place] [facility] [address] [id number] [place] [address]- 2469 Jun, [facility] [place] [facility] [address] [id number] [place] [address]- 1250 Jun, [facility] [place] [facility] [address] [id number] [place] [address]- 5989 Jun, [facility] [place] [facility] [address] [id number] [place] [address]- 5399 May, [facility] [place] [facility] [address] [id number] [place] [address]- 9179 May, [facility] [place] [facility] [address] [id number] [place] [address]- 5044 Mar, [facility] [place] [facility] [address] [id number] [place] [address]- 8568 18 Mar, 2014 [facility] [place] [facility] [address] [id number] [place] [address]- 0153 Mar, [facility] [place] [facility] [address] [id number] [place] [address]- 4846 Mar, [facility] [place] [facility] [address] [id number] [place] [address]- 5989 Feb, [facility] [place] [facility] [address] [id number] [place] 3701 Feb, [facility] [place] [facility] [address] [id number] [place] [address]- 5038 Feb, [facility] [place] [facility] [address] [id number] [place] [address]- 4945 Jan, [facility] [place] [facility] [address] [id number] [place] [address] Jan, [facility] [place] [facility] [address] [id number] [place] [address] Jan, [facility] [place] [facility] [address] [id number] [place] [address] Jan, [facility] [place] [facility] [address] [id number] [place] [address] Jan, [facility] [place] [facility] [address] [id number] [place] [address] Jan, [facility] [place] [facility] [address] [id number] [place] [address] Jan, [facility] [place] [facility] [address] [id number] [place] [address] Jan, [facility] [place] [facility] [address] [id number] [place] [address] Jan, [facility] [place] [facility] [address] [id number] [place] [address] Jan, [facility] [place] [facility] [address] [id number] [place] [address] Dec, [facility] [place] [facility] [address] [id number] [place] [address] Dec, [facility] [place] [facility] [address] [id number] [place] [address] November, [facility] [place] [facility] [address] [id number] [place] [address] November, [facility] [place] [facility] [address] [id number] [place] [address] November, [facility] [place] [facility] [address] [id number] [place] [address] November, [facility] [address] [id number] [place] [address] November, [facility] [place] [facility] [address] [id number] [place] [address] November, [facility] [address] [id number] [place] [address] November, [facility] [address] [id number] [place] [address] Oct, [facility] [address] [id number] [place] [address] Oct, [facility] [address] [id number] [place] [address] Sep, [facility] [address] [id number] [place] [address] Sep, [facility] [address] [id number] [place] [address] Sep, [facility] [place] [facility] [address] [id number] [place] [address] Sep, [facility] [address] [id number] [place] [address] Sep, [facility] [place] [facility] [address] [id number] [place] [address] Sep, [facility] [place] [facility] [address] [id number] [place] [address] Sep, [facility] [place] [facility] [address] [id number] [place] [address] Sep, [facility] [place] [facility] [address] [id number] [place] [address] Sep, [facility] [place] [facility] [address] [id number] [place] [address] Sep, [facility] [address] [id number] [place] [address] Aug, [facility] [place] [facility] [address] [id number] [place] [address] 99[address] Aug, [facility] [place] [facility] [address] [id number] [place] [address] Jul, [facility] [place] [facility] [address] [id number] [place] [address] Jul, [facility] [place] [facility] [address] [id number] [place] [address] 2755 Jul, [facility] [place] [facility] [address] [id number] [place] [address] 49[address] Jul, [facility] [place] [facility] [address] [id number] [place] [address] 2637 Jul, [facility] [place] [facility] [address] [id number] [place] [address] 0449 Jul, [facility] [place] [facility] [address] [id number] [place] [address] 5[address] Jun, [facility] [place] [facility] [address] [id number] [place] [address] 14[address] Jun, [facility] [place] [facility] [address] [id number] [place] [address] 82[address] Jun, [facility] [place] [facility] [address] [id number] [place] [address] 88[address] Jun, [facility] [place] [facility] [address] [id number] [place] [address] 6990 May, [facility] [place] [facility] [address] [id number] [place] [address]- 8787 May, [facility] [place] [facility] [address] [id number] [place] [address] 6719 May, [facility] [place] [facility] [address] [id number] [place] [address] 7401 11 May, 2013 [facility] [place] [facility] [address] [id number] [place] [address] 3766 May, [facility] [place] [facility] [address] [id number] [place] [address] Apr, [facility] [place] [facility] [address] [id number] [place] [address] 2024 Apr, [facility] [place] [facility] [address] [id number] [place] [address] 1976 Apr, [facility] [place] [facility] [address] [id number] [place] [address] Apr, [facility] [place] [facility] [address] [id number] [place] [address] 6117 Apr, [facility] [place] [facility] [address] [id number] [place] [address] 9142 Apr, [facility] [place] [facility] [address] [id number] [place] [address]- 6132 Apr, [facility] [place] [facility] [address] [id number] [place] [address]- 6768 Apr, [facility] [place] [facility] [address] [id number] [place] [address]- 9625 Apr, [facility] [place] [facility] [address] [id number] [place] [address]- 7729 Apr, [facility] [place] [facility] [address] [id number] [place] [address]- 8580 Apr, [facility] [place] [facility] [address] [id number] [place] [address]- 7117 Apr, [facility] [place] [facility] [address] [id number] [place] [address] 1760 Mar, [facility] [place] [facility] [address] [id number] [place] [address] 20 Mar, 2013 [facility] [place] [facility] [address] [id number] [place] [address] 7464 Feb, [facility] [place] [facility] [address] [id number] [place] [address] 5[address] Jan, [facility] [place] [facility] [address] [id number] [place] [address]- 0984 Jan, [facility] [place] [facility] [address] [id number] [place] [address] 7638 Jan, [facility] [place] [facility] [address] [id number] [place] [address] 4886 Jan, [facility] [place] [facility] [address] [id number] [place] [address] 8860 Dec, [facility] [place] [facility] [address] [id number] [place] [address] 6247 Dec, [facility] [place] [facility] [address] [id number] [place] [address] 4702 Dec, [facility] [place] [facility] [address] [id number] [place] [address] 4667 Dec, [facility] [place] [facility] [address] [id number] [place] [address] 9[address] Dec, [facility] [place] [facility] [address] [id number] [place] [address]- 6104 Dec, [facility] [place] [facility] [address] [id number] [place] [address]- 7588 Dec, [facility] [place] [facility] [address] [id number] [place] [address]- 4278 November, [facility] [place] [facility] [address] [id number] [place] [address] 3655 November, [facility] [place] [facility] [address] [id number] [place] [address] 8[address] November, [facility] [place] [facility] [address] [id number] [place] [address] 7326 Oct, [facility] [address] [id number] [place] [address] 6075 Oct, [facility] [place] [facility] [address] [id number] [place] [address] 7549 Oct, [facility] [place] [facility] [address] [facility] [id number] [place] [address] 6843 Oct, [facility] [place] [facility] [address] [id number] [place] [address] 2481 Oct, [facility] [address] [id number] [place] [address] 9274 Sep, [facility] [place] [facility] [address] [id number] [place] [address] 0070 Sep, [facility] [address] [id number] [place] [address] 7579 Sep, [facility] [place] [facility] [address] [id number] [place] [address]- 8585 Sep, [facility] [address] [id number] [place] [address]- 4691 Aug, [facility] [place] [facility] [address] [id number] [place] [address]- 7872 Aug, [facility] [place] [facility] [address] [id number] [place] [address] 0[address] Aug, [facility] [place] [facility] [address] [id number] [place] [address]- 3717 Aug, [facility] [place] [facility] [address] [id number] [place] [address]- 0741 Jul, [facility] [place] [facility] [address] [id number] [place] [address]- 5216 Jul, [facility] [place] [facility] [address] [facility] [id number] [place] [address]- 6739 Jun, [facility] [place] [facility] [address] [id number] [place] [address]- 7391 Jun, [facility] [place] [facility] [address] [id number] [place] [address]- 0237 Jun, [facility] [place] [facility] [address] [id number] [place] [address]- 8374 Jun, [facility] [place] [facility] [address] [id number] [place] [address]- 5475 May, [facility] [place] [facility] [address] [id number] [place] [address]- 8881 May, [facility] [place] [facility] [address] [id number] [place] [address]- 9845 May, [facility] [place] [facility] [address] [facility] [id number] [place] [address]- 4509 May, [facility] [place] [facility] [address] [id number] [place] [address]- 9240 Apr, [facility] [place] [facility] [address] [id number] [place] [address]- 3104 31 Apr, 2012 [facility] [place] [facility] [address] [id number] [place] [address]- 1248 31 Apr, 2012 [facility] [place] [facility] [address] [facility] [id number] [place] [address]- 9519 31 Apr, 2012 [facility] [place] [facility] [address] [id number] [place] [address]- 9545 30 Apr, 2012 [facility] [place] [facility] [address] [id number] [place] [address]- 6484 30 Apr, 2012 [facility] [place] [facility] [address] [id number] [place] [address] Apr, [facility] [place] [facility] [address] [facility] [id number] [place] Apr, [facility] [place] [facility] [address] [id number] [place] [address] Apr, [facility] [place] [facility] [address] [id number] [place] [address]- 9811 Apr, [facility] [place] [facility] [address] [id number] [place] [address]- 7106 Feb, [facility] [place] [facility] [address] [id number] [place] [address]- 4374 Feb, [facility] [place] [facility] [address] [id number] [place] [address]- 7713 Jan, [facility] [place] [facility] [address] [id number] [place] [address]- 3860 Jan, [facility] [place] [facility] [address] [id number] [place] [address]- 2820 Jan, [facility] [place] [facility] [address] [id number] [place] [address]- 7502 Jan, [facility] [place] [facility] [address] [id number] [place] [address]- 3520 Jan, [facility] [place] [facility] [address] [id number] [place] [address]- 9078 Jan, [facility] [place] [facility] [address] [id number] [place] [address]- 5916 Dec, [facility] [place] [facility] [address] [id number] [place] [address]- 8570 November, [facility] [place] [facility] [address] [id number] [place] [address]- 7455 November, [facility] [place] [facility] [address] [id number] [place] [address]- 6855 November, [facility] [place] [facility] [address] [id number] [place] [address]- 2039 Sep, [facility] [place] [facility] [address] [id number] [place] [address]- 3329 Sep, [facility] [place] [facility] [address] [id number] [place] [address]- 0367 09 Sep, 2011 [facility] [address] [id number] [place] [address]- 7322 08 Sep, 2011 [facility] [place] [facility] [address] [id number] [place] [address]- 4176 Sep, [facility] [address] [id number] [place] [address]- 2816 Sep, [facility] [place] [facility] [address] [id number] [place] [address]- 7983 13 Aug, 2011 [facility] [address] [id number] [place] [address]- 2380 Aug, [facility] [place] [facility] [address] [id number] [place] [address]- 7786 Aug, [facility] [address] [id number] [place] [address]- 5123 Jul, [facility] [address] [id number] [place] [address]- 8193 Jul, [facility] [place] [facility] [address] [id number] [place] [address]- 6337 Jul, [facility] [address] [id number] [place] [address]- 1428 Jul, [facility] [address] [id number] [place] [address]- 3790 Jun, [facility] [place] [facility] [address] [id number] [place] [address]- 3190 Jun, [facility] [place] [facility] [address] [id number] [place] [address]- 9223 Jun, [facility] [place] [facility] [address] [id number] [place] [address]- 5646 Jun, [facility] [place] [facility] [address] [id number] [place] [address]- 9170 Jun, [facility] [place] [facility] [address] [id number] [place] [address]- 9974 Jun, [facility] [place] [facility] [address] [id number] [place] [address]- 5368 May, [facility] [place] [facility] [address] [id number] [place] [address]- 1116 May, [facility] [place] [facility] [address] [id number] [place] [address]- 8676 May, [facility] [place] [facility] [address] [id number] [place] [address]- 1322 Apr, [facility] [place] [facility] [address] [id number] [place] [address]- 1699 Jan, [facility] [place] [facility] [address] [id number] [place] [address]- 4651 Jun, [facility] [place] [facility] [address] [id number] [place] [address]- 7640 20 Jun, 2010 [facility] [place] [facility] [address] [id number] [place] [address]- 1157 15 Jun, 2010 [facility] [place] [facility] [address] [id number] [place] [address]- 9118 15 Jun, 2010 [facility] [place] [facility] [address] [id number] [place] [address]- 8534 15 Jun, 2010 [facility] [place] [facility] [address] [id number] [place] [address]- 9031 13 Jun, 2010 [facility] [place] [facility] [address] [id number] [place] [address]- 3288 Jun, [facility] [place] [facility] [address] [id number] [place] [address]- 8746 Apr, [facility] [place] [facility] [address] [id number] [place] [address]- 1992 17 Feb, 2010 [facility] [place] [facility] [address] [id number] [place] [address]- 1214 15 Aug, 2009 [facility] [address] [id number] [place] [address]- 5459 18 Jul, 2009 [facility] [place] [facility] [address] [facility] [id number] [place] [address]- 9166 11 Jul, 2009 [facility] [address] [facility] [id number] [place] [address]- 6498 29 Jun, 2009 [facility] [place] [facility] [address] [id number] [place] [address]- 8613 Jun, [facility] [address] [id number] [place] [address]- 9252 Jun, [facility] [address] [facility] [id number] [place] [address]- 6803 Jun, [facility] [address] [facility] [id number] [place] [address]- 9678 16 Jun, 2009 [facility] [place] [facility] [address] [facility] [id number] [place] [address]- 0869 Jun, [facility] [address] [facility] [id number] [place] [address]- 2978 Jun, [facility] [place] [facility] [address] [facility] [id number] [place] [address]- 8648 30 May, 2009 [facility] [address] [facility] [id number] [place] [address]- 8464 27 May, 2009 [facility] [place] [facility] [address] [facility] [id number] [place] [address]- 3800 23 May, 2009 [facility] [place] [facility] [address] [facility] [id number] [place] [address]- 0168 18 May, 2009 [facility] [place] [facility] [address] [facility] [id number] [place] [address]- 9964 18 May, 2009 [facility] [place] [facility] [address] [facility] [id number] [place] [address]- 6179 16 May, 2009 [facility] [place] [facility] [address] [facility] [id number] [place] [address]- 2546 May, [facility] [address] [facility] [id number] [place] [address]- 7756 Apr, [facility] [address] [facility] [id number] [place] [address]- 2546 Apr, [facility] [address] [facility] [id number] [place] [address]- 1646 Jan, [facility] [address] [facility] [id number] [place] [address]- 8626 Oct, IMMUNIZATIONS No Known Immunizations SOCIAL HISTORY Never Assessed REASON FOR VISIT Cough since thursday, began shortly after seeing Anna on Thursday, sore throat, green productive mucous-AHarrrymanRN, BP has been low, PCP Anna PLAN OF CARE Activity Details Follow Up if not improving or with pcp for regular fu Reason: VITAL SIGNS Height 62 in 2017-11-11 Weight 183.0 lbs 2017-11-11 Temperature 97.9 degrees Fahrenheit 2017-11-11 Heart Rate 62 bpm 2017-11-11 Respiratory Rate 20 2017-11-11 Oximetry 96 % 2017-11-11 BMI 33.47 kg/m2 2017-11-11 Blood pressure systolic 100 mmHg 2017-11-11 Blood pressure diastolic 58 mmHg 2017-11-11 MEDICATIONS Medication Instructions Dosage Frequency Start Date End Date Duration Status BD Pen Needle Mini U/F 31G X 5 MM subcutaneously 4 times a day as directed 6h Dec, 30 days Active Crestor 10 MG Orally Once a day 1 tablet 24h Active Donepezil HCl 10 MG Orally Once a day 1 tablet at bedtime 24h Jul, Active Citalopram Hydrobromide 20 mg Orally Once a day 1.5 tablets 24h 90 days Active Clopidogrel Bisulfate 75 MG Orally Once a day 1 tablet 24h 30 Active Vitamin D-3 Active Aspirin 81 MG Orally Once a day 1 tablet 24h Active Tresiba FlexTouch 200 UNIT/ML Subcutaneous once a day Inject 14 unitsin AM rather than PM 24h Jan, 90 Active Furosemide 40 MG TAKE 1 TABLET BY MOUTH DAILY. 30 Active Levothyroxine Sodium 25 MCG Orally Once a day 1 tablet on an empty stomach in the morning 24h 30 Active Fish Oil 1000 MG Orally 2 times a day 1 capsule 12h Active Fenofibrate 48 MG Orally Once a day 1 tablet 24h Active Carvedilol 3.125 MG Orally 2 times a day 1 tablet 12h Active Alcohol Swabs 70 % Wipe area prior to injection or testing blood sugar Oct, Active Trutest Blood Glucose Test Strip N/A subcutaneously 6 times a day. E11.40 test blood sugar Dec, Active Zontivity 2.08 MG Orally Once a day 1 tablet 24h Active Tramadol HCl 50 MG Orally 2 times a day 1 tablet as needed 12h 28 days Active Cephalexin 250 MG Orally 3 times a day 1 capsule 8h Oct, Oct, 07 days Active Betamethasone Dipropionate Aug 0.05 % Externally 2 times a day 1 application to affected area 12h Aug, Not-Taking Fenofibric Acid 135 MG Orally Once a day 1 capsule 24h Not-Taking RESULTS No Results PROCEDURES Procedure Date Ordered Result Body Site [facility] VISIT ESTABLISHED PATIENT November 11, 2017 INSTRUCTIONS MEDICATIONS ADMINISTERED No Known Medications [...]
--- OUTSIDE RECORDS SUMMARY | 2018-11-09 13:11 | XMS REPORT ---
Author Author PRABHA HILL [facility] Address [address] [place] [address] Care Team Providers Care Inventory Checker Name Role Phone PRABHA HILL Unavailable PROBLEMS Type Condition ICD9-CM Code HNC78-RD Code Onset Dates Condition Status SNOMED Code Problem Hypernatremia E87.0 Active 85311908 Problem Hallucinations R44.3 Active 0800327 Problem Hypoglycemia E16.2 Active 082626602 Problem Anxiety F41.9 Active 61869683 Problem Dementia in other diseases classified elsewhere without behavioral disturbance F02.80 Active 007377499 Problem Neurogenic orthostatic hypotension G90.3 Active 281970344 Problem Dementia with Lewy bodies G31.83 Active 712813246 Problem 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 Active 1843334007198 Problem Parkinsons disease G20 Active 61373584 Problem Unsteady gait R26.81 Active 41906635 Problem Mixed stress and urge urinary incontinence N39.46 Active 780125412 Problem Episodic cluster headache, not intractable G44.019 Active 372020790 Problem PVD (peripheral vascular disease) I73.9 Active 997097869 Problem 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 Active 799224219 Problem Dysuria R30.0 Active 34542016 Problem Type 2 diabetes mellitus with unspecified complications E11.8 Active 92369061 Problem Neuropathy G62.9 Active 872097793 Problem Polydipsia R63.1 Active 21933526 Problem Essential hypertension I10 Active 44351637 Problem Dysthymia F34.1 Active 75167539 Problem Hypothyroidism (acquired) E03.9 Active 849273479 Problem Hyperlipemia, mixed E78.2 Active 583824450 ALLERGIES No Information ENCOUNTERS Encounter Location Date Diagnosis [facility] [address] [facility] [id number] [address] Jan, Left shoulder pain M25.512 [facility] [id number] [place] [address] 26906- 5652 Dec, Parkinsons disease G20 [facility] [id number] [place] [address] 28207- 7239 08 Dec, 2017 Left shoulder pain M25.512 [facility] [id number] [place] [address] 57803- 0477 Dec, Type 2 diabetes mellitus with unspecified complications E11.8 ; Anxiety F41.9 ; Therapeutic drug monitoring Z51.81 and Analgesic use Z79.899 [facility] [id number] [place] [address] 94360- 8645 November, [facility] [address] 49788- 7426 November, [facility] [id number] [place] [address] 71589- 9482 November, Left shoulder pain M25.512 [facility] [id number] [place] [address] 98912- 5626 Oct, [facility] [id number] [place] [address] 95294 -2868 Oct, [facility] [id number] [place] [address] 48788- 7620 Oct, Parkinsons disease G20 [facility] [id number] [place] [address] 31045 -8547 18 Oct, 2017 Acute cystitis without hematuria N30.00 and Viral upper respiratory tract infection J06.9 [facility] [id number] [place] [address] 57548- 0865 Oct, [facility] [id number] [place] [address] 87763- 1437 Oct, Type 2 diabetes mellitus with unspecified complications E11.8 [facility] [id number] [place] [address] 20476- 4689 Oct, Left shoulder pain M25.512 [facility] [facility] [id number] [place] [address] 99737- 1095 Oct, Type 2 diabetes mellitus with unspecified complications E11.8 ; Dysuria R30.0 and Neurogenic orthostatic hypotension G90.3 [place] [address] 82782- 0137 Sep, Left shoulder pain M25.512 [place] [address] 78507- 3146 Sep, Medicare annual wellness visit, initial Z00.00 ; Parkinsons disease G20 ; Type 2 diabetes mellitus with unspecified complications E11.8 ; Essential hypertension I10 ; 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 ; Hypothyroidism (acquired ) E03.9 ; PVD (peripheral vascular disease) I73.9 ; Dysthymia F34.1 ; Hyperlipemia, mixed E78.2 ; Neuropathy G62.9 ; Encounter for immunization Z23 ; Encounter for other screening for malignant neoplasm of breast Z12.39 and Mixed stress and urge urinary incontinence N39.46 [place] [address] 72102- 8862 Aug, Parkinsons disease G20 [facility] [facility] [id number] [place] [address] 53665- 4258 21 Aug, 2017 Type 2 diabetes mellitus with unspecified complications E11.8 ; Left shoulder pain M25.512 and Hypotensive episode I95.9 [place] [id number] [place] [address] 38198- 3512 09 Aug, 2017 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 [facility] [id number] [place] [address] 12581- 4304 07 Aug, 2017 Type 2 diabetes mellitus with unspecified complications E11.8 [facility] [id number] [place] [address] 51493- 8135 Jul, Callus of foot L84 [place] [id number] [place] [address] 45962- 3293 Jul, [place] [address] 86133- 9491 Jul, Callus of foot L84 ; Episodic cluster headache, not intractable G44.019 ; Type 2 diabetes mellitus with unspecified complications E11.8 and Parkinsons disease G20 [place] [address] 42561- 4679 Jul, [place] [facility] [id number] [place] [address] 24692- 9378 Jul, [place] [id number] [place] [address] 57482- 9631 Jun, Type 2 diabetes mellitus with unspecified complications E11.8 ; Unsteady gait R26.81 ; Forgetfulness R68.89 and Hallucinations R44.3 [facility] [id number] [place] [address] 48939- 5734 Jun, [facility] [id number] [place] [address] 41089- 8568 Jun, Left shoulder pain M25.512 [facility] [id number] [place] [address] 20495- 4378 May, Hypernatremia E87.0 and Polydipsia R63.1 [place] [id number] [place] [address] 80950- 9613 May, Hypernatremia E87.0 and Polydipsia R63.1 [place] [id number] [place] [address] 25948- 0067 May, Hypoglycemia E16.2 ; Dysuria R30.0 ; Unsteadiness on feet R26.81 ; Forgetfulness R68.89 ; Type 2 diabetes mellitus with unspecified complications E11.8 and Yeast infection involving the vagina and surrounding area B37.3 [place] [id number] [place] [address] 72763- 9070 May, Acute cystitis without hematuria N30.00 [facility] [id number] [place] [address] 27847 -2564 28 Apr, 2017 Dysuria R30.0 and Acute cystitis without hematuria N30.00 [facility] [address] 48397- 5134 05 Apr, 2017 Hypernatremia E87.0 and Polydipsia R63.1 [facility] [address] 88069- 3192 02 Apr, 2017 Vertigo R42 and Type 2 diabetes mellitus with unspecified complications E11.8 [place] [address] 244069- 0029 20 Mar, 2017 [place] [address] 01972- 4226 19 Mar, 2017 Left shoulder pain M25.512 [place] [address] 12693- 1040 13 Mar, 2017 Vertigo R42 [place] [address] 31795- 4380 12 Mar, 2017 Polydipsia R63.1 [place] [address] 46201- 5536 12 Mar, 2017 Polydipsia R63.1 [place] [address] 49028- 2808 11 Mar, 2017 Vertigo R42 [place] [address] 09711- 7909 07 Mar, 2017 Type 2 diabetes mellitus with unspecified complications E11.8 ; Vertigo R42 ; Polydipsia R63.1 ; Polyuria R35.8 ; Hypothyroidism ( acquired) E03.9 ; Abnormal urinalysis R82.90 and Dysthymia F34.1 [place] [address] 53911- 9971 Mar, Coronary artery disease of atka artery with stable angina pectoris, unspecified whether atka or transplanted heart I25.118 ; Systolic CHF, chronic I50.22 ; Hyperlipemia, mixed E78.2 and Essential hypertension I10 [facility] [address] [place] [address] [id number] Feb, Dental caries K02.9 [facility] [address] 32809- 6910 Feb, Type 2 diabetes mellitus with diabetic neuropathy, unspecified E11.40 [facility] [id number] [place] [address] 43555- 1458 Dec, Left shoulder pain M25.512 [facility] [id number] [place] [address] 88087- 7398 Dec, [facility] [address] 57480- 7461 Dec, Type 2 diabetes mellitus with unspecified complications E11.8 [facility] [id number] [place] [address] [id number] Dec, Dental examination Z01.20 [facility] [id number] [place] [address] 43087- 5722 Dec, Type 2 diabetes mellitus with diabetic neuropathy, unspecified E11.40 [facility] [id number] [place] [address] 89027- 8264 Dec, [facility] [address] 30729- 5531 Dec, Type 2 diabetes mellitus with diabetic neuropathy, unspecified E11.40 [facility] [id number] [place] [address] 69612- 8011 November, Left shoulder pain M25.512 [facility] [id number] [place] [address] 88595- 2458 November, [facility] [address] 18908- 2527 November, Type 2 diabetes mellitus with unspecified complications E11.8 and Dysuria R30.0 [place] [id number] [place] [address] 8748 Oct, Left shoulder pain M25.512 [facility] [id number] [place] [address] 77471- 9487 Sep, Left shoulder pain M25.512 [facility] [address] 17383- 6081 Sep, Pre-op testing Z01.818 [place] [address] [id number] 0246 Sep, Pre-op testing Z01.818 [place] [id number] [place] [address] 31765- 1734 Sep, Pre-op testing Z01.818 [place] [address] 50609- 1494 Sep, Pre-op testing Z01.818 and Mouth pain K13.79 [place] [address] 44295- 8582 Sep, Left shoulder pain M25.512 [place] [id number] [place] [address] 22867- 4010 Aug, Other eczema L30.8 [facility] [address] 14244- 6113 Aug, PVD (peripheral vascular disease) I73.9 ; Type 2 diabetes mellitus with unspecified complications E11.8 ; Acute cystitis with hematuria N30.01 ; Other eczema L30.8 ; Dysuria R30.0 and Left shoulder pain M25.512 [facility] [address] [place] [address] 90243 -5427 Jul, Otalgia of right ear H92.01 and Blood in ear canal, right H92.21 [facility] [id number] [place] [address] 43565- 1440 Jul, Arthralgia, unspecified joint M25.50 ; PVD (peripheral vascular disease) I73.9 and Neuropathy G62.9 [place] [id number] [place] [address] 99162- 6877 Jul, [place] [address] 74520- 3317 Jun, Medicare annual wellness visit, initial Z00.00 ; Cervicalgia M54.2 ; Radiculopathy of cervical region M54.12 ; Encounter for immunization Z23 ; Type 2 diabetes mellitus with unspecified complications E11.8 and Essential hypertension I10 [place] [address] 76299- 3697 Jun, [place] [address] 77667- 9296 May, Hypothyroidism (acquired) E03.9 [place] [id number] [place] [address] 14666- 7868 May, Dysuria R30.0 ; Essential hypertension I10 ; Hypothyroidism (acquired) E03.9 and PVD (peripheral vascular disease) I73.9 [facility] [id number] [place] [address] 33467 -0196 May, Burning with urination R30.0 and Acute cystitis with hematuria N30.01 [place] [id number] [place] [address] 14714- 1966 May, Dental examination Z01.20 [place] [address] 94895- 9345 May, Hypothyroidism (acquired) E03.9 [place] [id number] [place] [address] 26340- 9939 Feb, [facility] [address] 34474- 5641 Feb, 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 ; PVD ( peripheral vascular disease) I73.9 ; Type 2 diabetes mellitus with unspecified complications E11.8 and Essential hypertension I10 [place] [address] [place] [address] 49217- 8250 Jan, [facility] [id number] [place] [address] 54029- 1265 Jan, Hypothyroidism (acquired) E03.9 [facility] [id number] [place] [address] 50603- 4039 Jan, [place] [id number] [place] [address] 59736- 6306 Jan, [place] [id number] [place] [address] 00834- 2744 Jan, Type 2 diabetes mellitus with unspecified complications E11.8 ; 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 and Essential ( primary) hypertension I10 [place] [id number] [place] [address] 99395- 8774 Jan, Type 2 diabetes mellitus with unspecified complications E11.8 ; 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 ; Essential hypertension I10 and PVD (peripheral vascular disease) I73.9 [place] [address] [address]- 1869 Jan, [place] [address] [place] [address] 21250- 254 Jan, [place] [address] [address]- 8755 Jan, [place] [id number] [place] [address] 66944- 7343 Jan, Weakness R53.1 ; Fatigue, unspecified type R53.83 ; PVD ( peripheral vascular disease) I73.9 ; Acute osteomyelitis of other site M86.18 ; Type 2 diabetes mellitus with diabetic neuropathy, unspecified E11.40 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 [place] [id number] [place] [address] 39376- 9904 30 Dec, 2015 [place] [id number] [place] [address] 28954- 4115 Dec, Type 2 diabetes mellitus with unspecified complications E11.8 [place] [id number] [place] [address] 99798- 4123 Dec, [place] [id number] [place] [address] 39885- 5053 Dec, Pressure ulcer, unspecified pressure ulcer stage L89.90 and Type 2 diabetes mellitus with unspecified complications E11.8 [facility] [id number] [place] [address] 50774 -7625 Dec, Toe infection L08.9 [place] [id number] [place] [address] 72221- 0083 November, Dental caries K02.9 [place] [id number] [place] [address] 16258- 1826 November, [place] [id number] [place] [address] 35318- 1990 November, Dental examination Z01.20 [place] [id number] [place] [address] 01815- 3235 Sep, Lipoma of torso D17.1 and Thoracic neuritis M54.14 [place] [address] [place] [address] 44780- 5280 Sep, [place] [id number] [place] [address] 22743- 3296 Aug, [facility] [id number] [place] [address] 60911 -5660 Jul, Dysuria R30.0 and UTI (urinary tract infection) N39.0 [place] [id number] [place] [address] 28233- 3122 Jun, Left shoulder pain M25.512 [place] [address] 05920- 1057 May, Shoulder pain, left M25.512 [facility] [id number] [place] [address] 30953- 9525 May, [facility] [address] 78400- 5568 May, [facility] [address] 87630- 1422 May, Left shoulder pain M25.512 [place] [address] 26911- 8253 May, [place] [address] 77402- 7592 Apr, Encounter for immunization Z23 [place] [address] 53069- 3480 Apr, Urinary tract infection, site not specified N39.0 ; Hypotension, unspecified I95.9 ; Type 2 diabetes mellitus with unspecified complications E11.8 and Generalized edema R60.1 [place] [id number] [place] [address] 69502- 4149 Apr, [place] [address] 09474- 8101 Mar, Diabetes with other specified manifestations, type II or unspecified type, not stated as uncontrolled 250.80 [place] [id number] [place] [address] 58206- 0486 Feb, Gout 274.9 and Diabetes 250.00 [place] [id number] [place] [address] 81337- 7812 Jan, [place] [address] 50209- 5477 November, CAD (coronary artery disease) 414.00 and CHF (congestive heart failure) 428.0 [facility] [address] [place] [address]- 6656 28 Oct, 2014 [facility] [address], [place] [address]- 6037 Oct, [facility] [address] [place] [address]- 7455 Oct, [facility] [address] [facility] [id number] [address]- 3378 Sep, [facility] [address] [place] [address]- 9751 Sep, [facility] [address], [place] [address]- 4999 Sep, [facility] [address], [place] [address]- 6642 Sep, [facility] [address], [place] [address]- 1778 Aug, [facility] [address], [place] [address]- 2670 Aug, [facility] [address], [place] [address]- 2263 Aug, [facility] [address], [place] [address]- 8003 Aug, 2014 [facility] [address], [place] [address]- 9921 Aug, 2014 [facility] [address], [place] [address]- 6671 Aug, 2014 [facility] [place] [facility] [address], [place] [address]- 9290 Aug, 2014 [facility] [address], [place] [address]- 5228 Aug, [facility] [address] [id number] [place] [address]- 9524 Jul, [facility] [place] [facility] [address] [id number] [place] [address]- 9601 Jul, [facility] [place] [facility] [address] [id number] [place] [address]- 0062 Jul, [facility] [place] [facility] [address] [id number] [place] [address]- 4251 Jul, [facility] [place] [facility] [address] [id number] [place] [address]- 1691 Jul, [facility] [place] [facility] [address] [id number] [place] [address]- 1014 Jul, [facility] [place] [facility] [address] [id number] [place] [address]- 7792 Jul, [facility] [place] [facility] [address] [id number] [place] [address]- 4836 Jul, [facility] [place] [facility] [address] [id number] [place] [address]- 0795 Jul, [facility] [place] [facility] [address] [id number] [place] [address]- 2336 Jul, [facility] [place] [facility] [address] [id number] [place] [address]- 6786 Jun, [facility] [place] [facility] [address] [id number], [place] [address]- 6720 Jun, [facility] [place] [facility] [address] [id number] [place] [address]- 7806 Jun, [facility] [place] [facility] [address] [id number] [place] [address]- 6056 Jun, [facility] [place] [facility] [address] [id number] [place] [address]- 0442 Jun, [facility] [place] [facility] [address] [id number] [place] [address]- 8278 Jun, [facility] [place] [facility] [address] [id number] [place] [address]- 9304 Jun, [facility] [place] [facility] [address] [id number] [place] [address]- 9507 Jun, [facility] [place] [facility] [address] [id number] [place] 6848 Jun, [facility] [place] [facility] [address] [id number] [place] [address]- 1305 Jun, [facility] [place] [facility] [address] [id number] [place] [address]- 7496 May, [facility] [place] [facility] [address] [id number] [place] [address]- 4065 May, [facility] [place] [facility] [address] [id number] [place] [address]- 9710 Mar, [facility] [place] [facility] [address] [id number] [place] [address]- 3429 Mar, [facility] [place] [facility] [address] [id number] [place] [address]- 1365 Mar, [facility] [place] [facility] [address] [id number] [place] [address]- 3285 Mar, [facility] [place] [facility] [address] [id number] [place] [address]- 9836 Feb, [facility] [place] [facility] [address] [id number] [place] [address]- 0271 Feb, [facility] [place] [facility] [address] [id number] [place] 9135 Feb, [facility] [place] [facility] [address] [id number] [place] 6606 Jan, [facility] [place] [facility] [address] [id number] [place] 4686 Jan, [facility] [place] [facility] [address] [id number] [place] [address]- 2191 Jan, [facility] [place] [facility] [address] [id number] [place] [address] Jan, [facility] [place] [facility] [address] [id number] [place] [address] Jan, [facility] [place] [facility] [address] [id number] [place] [address] Jan, [facility] [place] [facility] [address] [id number] [place] [address] Jan, [facility] [place] [facility] [address] [id number] [place] [address] Jan, [facility] [place] [facility] [address] [id number] [place] [address] Jan, [facility] [place] [facility] [address] [id number] [place] [address] Jan, [facility] [place] [facility] [address] [id number] [place] [address] Dec, [facility] [place] [facility] [address] [id number] [place] [address] Dec, [facility] [place] [facility] [address] [id number] [place] [address] November, [facility] [place] [facility] [address] [id number] [place] [address] November, [facility] [place] [facility] [address] [id number] [place] [address] November, [facility] [place] [facility] [address] [id number] [place] [address] November, [facility] [place] [facility] [address] [id number] [place] [address] November, [facility] [place] [facility] [address] [id number] [place] [address] November, [facility] [place] [facility] [address] [id number] [place] [address] November, [facility] [place] [facility] [address] [id number] [place] [address] Oct, [facility] [place] [facility] [address] [id number] [place] [address] Oct, [facility] [place] [facility] [address] [id number] [place] [address] Sep, [facility] [place] [facility] [address] [id number] [place] [address] Sep, [facility] [place] [facility] [address] [id number] [place] [address] Sep, [facility] [place] [facility] [address] [id number] [place] [address] Sep, [facility] [place] [facility] [address] [id number] [place] [address] Sep, [facility] [place] [facility] [address] [id number] [place] [address] Sep, [facility] [place] [facility] [address] [id number] [place] [address] Sep, [facility] [place] [facility] [address] [id number] [place] [address] Sep, [facility] [place] [facility] [address] [id number] [place] [address] Sep, [facility] [place] [facility] [address] [id number] [place] [address] Sep, [facility] [place] [facility] [address] [address] [id number] [place] [address] Aug, [facility] [place] [facility] [address] [id number] [place] [address] Aug, [facility] [place] [facility] [address] [id number] [place] [address] 14 Jul, 2013 [facility] [address] [id number] [place] [address] 5875 14 Jul, 2013 [facility] [place] [facility] [address] [id number] [place] [address]- 1765 13 Jul, 2013 [facility] [address] [id number] [place] [address]- 0777 13 Jul, 2013 [facility] [place] [facility] [address] [id number] [place] [address] 6088 06 Jul, 2013 [facility] [place] [facility] [address] [id number] [place] [address]- 2529 06 Jul, 2013 [facility] [place] [facility] [address] [id number] [place] [address]- 2502 06 Jun, 2013 [facility] [place] [facility] [address] [id number] [place] [address] 2498 Jun, [facility] [place] [facility] [address] [id number] [place] [address]- 2992 Jun, [facility] [place] [facility] [address] [id number] [place] [address] 2059 Jun, [facility] [place] [facility] [address] [facility] [id number] [place] [address]- 6564 14 May, 2013 [facility] [place] [facility] [address] [id number] [place] [address]- 8008 14 May, 2013 [facility] [place] [facility] [address] [id number], [place] [address]- 0814 May, [facility] [place] [facility] [address] [id number] [place] [address]- 5350 May, [facility] [place] [facility] [address] [id number] [place] [address]- 8176 07 May, 2013 [facility] [place] [facility] [address] [id number] [place] [address] Apr, [facility] [place] [facility] [address] [id number] [place] [address]- 7002 Apr, [facility] [place] [facility] [address] [id number] [place] [address]- 9445 Apr, [facility] [place] [facility] [address] [id number] [place] [address]- 2431 Apr, [facility] [place] [facility] [address] [id number] [place] [address]- 0595 Apr, [facility] [place] [facility] [address] [id number] [place] [address]- 7106 Apr, [facility] [place] [facility] [address] [id number] [place] [address]- 9078 Apr, [facility] [place] [facility] [address] [id number] [place] [address]- 4745 Apr, [facility] [place] [facility] [address] [id number] [place] [address]- 6400 Apr, [facility] [place] [facility] [address] [id number] [place] [address]- 3334 Apr, [facility] [place] [facility] [address] [id number] [place] [address]- 4164 Apr, [facility] [place] [facility] [address] [id number] [place] [address]- 7261 Apr, [facility] [place] [facility] [address] [id number] [place] [address] 1530 Mar, [facility] [place] [facility] [address] [id number] [place] [address]- 6837 Mar, [facility] [place] [facility] [address] [id number] [place] [address] 2547 Feb, [facility] [place] [facility] [address] [id number] [place] [address] 5809 Jan, [facility] [place] [facility] [address] [id number] [place] [address]- 1612 Jan, [facility] [place] [facility] [address] [id number] [place] [address] Jan, [facility] [place] [facility] [address] [id number] [place] [address]- 0914 Jan, [facility] [place] [facility] [address] [id number] [place] [address]- 2623 Dec, [facility] [place] [facility] [address] [id number] [place] [address]- 6190 Dec, [facility] [place] [facility] [address] [id number] [place] [address]- 6498 Dec, [facility] [place] [facility] [address] [id number] [place] [address]- 5685 Dec, [facility] [place] [facility] [address] [id number] [place] [address]- 9028 Dec, [facility] [place] [facility] [address] [id number] [place] [address] 3271 Dec, [facility] [place] [facility] [address] [id number] [place] [address]- 9498 Dec, [facility] [place] [facility] [address] [id number] [place] [address]- 1634 November, [facility] [place] [facility] [address] [id number] [place] [address]- 4130 November, [facility] [place] [facility] [address] [id number] [place] [address]- 6348 November, [facility] [place] [facility] [address] [id number] [place] [address]- 4695 Oct, [facility] [place] [facility] [address] [id number] [place] [address]- 9841 Oct, [facility] [place] [facility] [address] [id number] [place] [address]- 8565 Oct, [facility] [place] [facility] [address] [id number] [place] [address]- 2546 Oct, [facility] [address] [id number] [place] [address]- 8186 Oct, [facility] [place] [facility] [address] [id number] [place] [address]- 2546 Sep, [facility] [address] [id number] [place] [address]- 8036 Sep, [facility] [place] [facility] [address] [id number] [place] [address]- 9302 Sep, [facility] [address] [id number] [place] [address]- 5276 Sep, [facility] [place] [facility] [address] [id number] [place] [address]- 4526 Aug, [facility] [place] [facility] [address] [id number] [place] [address] 8616 Aug, [facility] [address] [id number] [place] [address] 5061 Aug, [facility] [address] [id number] [place] [address] 6766 Aug, [facility] [address] [id number] [place] [address] 8106 Jul, [facility] [address] [id number] [place] [address] 8926 Jul, [facility] [address] [id number] [place] [address] 3430 Jun, [facility] [place] [facility] [address] [id number] [place] [address]- 1776 Jun, [facility] [place] [facility] [address] [id number] [place] [address]- 2546 Jun, [facility] [place] [facility] [address] [id number] [place] [address] 8395 Jun, [facility] [place] [facility] [address] [id number] [place] [address]- 0665 May, [facility] [place] [facility] [address] [id number] [place] [address]- 6519 May, [facility] [place] [facility] [address] [facility] [id number] [place] [address]- 7993 May, [facility] [place] [facility] [id number] [place] [address], [place] [address]- 9448 May, [facility] [place] [facility] [address] [id number] [place] [address]- 7198 Apr, [facility] [place] [facility] [address] [id number] [place] [address], [place] [address]- 0080 Apr, [facility] [place] [facility] [address] [id number] [place] [address]- 0911 Apr, [facility] [place] [facility] [address] [id number], [place] [address]- 0016 Apr, [facility] [place] [facility] [address] [id number], [place] [address]- 9646 Apr, [facility] [place] [facility] [address] [facility] [id number], [place] [address]- 7637 Apr, [facility] [place] [facility] [address] [id number], [place] [address]- 1341 Apr, [facility] [place] [facility] [address] [id number], [place] [address]- 4541 Apr, [facility] [place] [facility] [address] [id number], [place] [address]- 3794 Apr, [facility] [place] [facility] [address] [facility] [id number], [place] [address]- 5536 Apr, [facility] [place] [facility] [address] [facility] [id number], [place] [address]- 6756 Feb, [facility] [place] [facility] [address] [id number] [place] [address]- 4554 Feb, [facility] [place] [facility] [address] [id number] [place] [address]- 4382 Jan, [facility] [place] [facility] [address] [id number] [place] [address]- 4216 Jan, [facility] [place] [facility] [address] [id number] [place] [address]- 0267 Jan, [facility] [place] [facility] [address] [id number] [place] [address]- 6467 Jan, [facility] [place] [facility] [address] [id number] [place] [address]- 3509 Jan, [facility] [place] [facility] [address] [id number] [place] [address]- 7758 Jan, [facility] [place] [facility] [address] [id number] [place] [address]- 0442 Dec, [facility] [place] [facility] [address] [id number] [place] [address]- 3992 November, [facility] [place] [facility] [address] [id number] [place] [address]- 0100 November, [facility] [place] [facility] [address] [id number] [place] [address]- 5790 November, [facility] [place] [facility] [address] [id number] [place] [address]- 4700 Sep, [facility] [place] [facility] [address] [id number] [place] [address]- 2160 Sep, [facility] [place] [facility] [address] [id number] [place] [address]- 1282 Sep, [facility] [place] [facility] [address] [id number] [place] [address]- 6274 Sep, [facility] [place] [facility] [address] [id number] [place] [address]- 6983 Sep, [facility] [place] [facility] [address] [id number] [place] [address]- 0970 Sep, [facility] [place] [facility] [address] [id number] [place] [address]- 0506 13 Aug, 2011 [facility] [place] [facility] [address] [id number] [place] [address]- 9976 Aug, [facility] [place] [facility] [address] [id number] [place] [address]- 9116 Aug, [facility] [place] [facility] [address] [id number] [place] [address]- 8541 Jul, [facility] [place] [facility] [address] [id number] [place] [address]- 8274 Jul, [facility] [place] [facility] [address] [id number] [place] [address]- 7004 Jul, [facility] [place] [facility] [address] [id number] [place] [address]- 3934 Jul, [facility] [place] [facility] [address] [id number] [place] [address]- 5538 Jun, [facility] [place] [facility] [address] [id number] [place] [address]- 1925 Jun, [facility] [place] [facility] [address] [id number] [place] [address]- 2581 Jun, [facility] [place] [facility] [address] [id number], [place] [address]- 0009 Jun, [facility] [place] [facility] [address] [id number] [place] [address]- 7721 Jun, [facility] [place] [facility] [address] [id number] [place] [address]- 7726 Jun, [facility] [place] [facility] [address] [id number] [place] [address]- 9007 May, [facility] [place] [facility] [address] [id number], [place] [address]- 8285 May, [facility] [address] [id number] [place] [address]- 6666 May, [facility] [address] [id number] [place] [address]- 1376 Apr, [facility] [address] [id number] [place] [address]- 3526 Jan, [facility] [address] [id number] [place] [address]- 7978 20 Jun, 2010 [facility] [address] [id number] [place] [address]- 0356 20 Jun, 2010 [facility] [place] [facility] [address] [id number] [place] [address]- 9806 15 Jun, 2010 [facility] [address] [facility] [id number] [place] [address]- 1076 15 Jun, 2010 [facility] [place] [facility] [address] [id number] [place] [address]- 4593 15 Jun, 2010 [facility] [address] [facility] [id number] [place] [address]- 9338 Jun, [facility] [place] [facility] [address] [id number] [place] [address]- 1575 Jun, [facility] [place] [facility] [address] [id number] [place] [address]- 1297 Apr, [facility] [place] [facility] [address] [id number] [place] [address]- 6442 Feb, [facility] [place] [facility] [address] [id number] [place] [address]- 9352 15 Aug, 2009 [facility] [place] [facility] [address] [id number] [place] [address]- 3609 18 Jul, 2009 [facility] [place] [facility] [address] [id number] [place] [address]- 3431 11 Jul, 2009 [facility] [place] [facility] [address] [id number] [place] [address]- 2181 29 Jun, 2009 [facility] [place] [facility] [address] [id number] [place] [address]- 0456 Jun, [facility] [place] [facility] [address] [id number] [place] [address] 2546 Jun, [facility] [place] [facility] [address] [id number] [place] [address] 2546 Jun, [facility] [place] [facility] [address] [id number] [place] [address] 2542 16 Jun, 2009 [facility] [place] [facility] [address] [id number] [place] [address]- 6856 Jun, [facility] [place] [facility] [address] [facility] [id number] [place] 3072 Jun, [facility] [place] [facility] [address] [id number] [place] [address]- 1106 30 May, 2009 [facility] [place] [facility] [address] [id number] [place] [address]- 1510 27 May, 2009 [facility] [place] [facility] [address] [id number] [place] [address]- 4053 23 May, 2009 [facility] [place] [facility] [address] [facility] [id number], [place] [address]- 3987 18 May, 2009 [facility] [place] [facility] [address] [id number], [place] [address]- 2396 18 May, 2009 [facility] [place] [facility] [address] [id number], [place] [address] 2549 16 May, 2009 [facility] [place] [facility] [address] [id number] [place] [address] 2546 03 May, 2009 [facility] [place] [facility] [address] [id number], [place] [address]- 3916 16 Apr, 2009 [facility] [place] [facility] [address] [id number], [place] [address]- 6914 Apr, [facility] [address] [facility] [id number] [place] [address]- 5958 Jan, [facility] [address] [facility] [id number] [place] [address]- 0366 Oct, IMMUNIZATIONS No Known Immunizations SOCIAL HISTORY Never Assessed REASON FOR VISIT Cough PLAN OF CARE VITAL SIGNS MEDICATIONS Unknown [...]
--- OUTSIDE RECORDS SUMMARY | 2018-11-09 13:12 | XMS REPORT ---
Author Author PRABHA HILL [facility] Address [address] [place] [address] Care Team Providers Care Fx Artist Name Role Phone PRABHA HILL Unavailable PROBLEMS Type Condition ICD9-CM Code [id number] Code Onset Dates Condition Status SNOMED Code Problem Hypernatremia E87.0 Active 76627845 Problem Hallucinations R44.3 Active 9003887 Problem Hypoglycemia E16.2 Active 466176260 Problem Anxiety F41.9 Active 99882449 Problem Dementia in other diseases classified elsewhere without behavioral disturbance F02.80 Active 200427101 Problem Neurogenic orthostatic hypotension G90.3 Active 385386631 Problem Dementia with Lewy bodies G31.83 Active 850238951 Problem Coronary artery disease involving sw[place]om[place] coronary artery of swinomish heart without angina pectoris I25.10 Active 8805546213248 Problem Parkinsons disease G20 Active 95700649 Problem Unsteady gait R26.81 Active 95712901 Problem Mixed stress and urge urinary incontinence N39.46 Active 789801276 Problem Episodic cluster headache, not intractable G44.019 Active 529982907 Problem PVD (peripheral vascular disease) I73.9 Active 265320821 Problem 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 Active 468962336 Problem Dysuria R30.0 Active 48341380 Problem Type 2 diabetes mellitus with unspecified complications E11.8 Active 11526503 Problem Neuropathy G62.9 Active 655555326 Problem Polydipsia R63.1 Active 01318315 Problem Essential hypertension I10 Active 62125646 Problem Dysthymia F34.1 Active 85617915 Problem Hypothyroidism (acquired) E03.9 Active 966675725 Problem Hyperlipemia, mixed E78.2 Active 705447995 ALLERGIES No Information ENCOUNTERS Encounter Location Date Diagnosis [facility] [address] [facility] [id number] [address] Jan, Left shoulder pain M25.512 [facility] [id number] [place] [address] 83296- 1474 Dec, Parkinsons disease G20 [facility] [id number] [place] [address] 93544- 5554 08 Dec, 2017 Left shoulder pain M25.512 [facility] [id number] [place] [address] 08774- 6763 Dec, Type 2 diabetes mellitus with unspecified complications E11.8 ; Anxiety F41.9 ; Therapeutic drug monitoring Z51.81 and Analgesic use Z79.899 [facility] [id number] [place] [address] 93746- 7438 November, [facility] [address] 91868- 4466 November, [facility] [id number] [place] [address] 12888- 2323 November, Left shoulder pain M25.512 [facility] [id number] [place] [address] 07651- 5128 Oct, [facility] [id number] [place] [address] 34814 -8309 Oct, [facility] [id number] [place] [address] 73488- 4333 Oct, Parkinsons disease G20 [facility] [id number] [place] [address] 21984 -8722 18 Oct, 2017 Acute cystitis without hematuria N30.00 and Viral upper respiratory tract infection J06.9 [facility] [id number] [place] [address] 52474- 6441 Oct, [facility] [id number] [place] [address] 98494- 5907 Oct, Type 2 diabetes mellitus with unspecified complications E11.8 [facility] [id number] [place] [address] 88906- 7100 Oct, Left shoulder pain M25.512 [place] [id number] [place] [address] 70960- 8845 Oct, Type 2 diabetes mellitus with unspecified complications E11.8 ; Dysuria R30.0 and Neurogenic orthostatic hypotension G90.3 [place] [address] 96197- 1738 Sep, Left shoulder pain M25.512 [place] [address] 89651- 9699 Sep, Medicare annual wellness visit, initial Z00.00 ; Parkinsons disease G20 ; Type 2 diabetes mellitus with unspecified complications E11.8 ; Essential hypertension I10 ; Coronary artery disease involving swinom[place] coronary artery of swinomish heart without angina pectoris I25.10 ; Hypothyroidism (acquired ) E03.9 ; PVD (peripheral vascular disease) I73.9 ; Dysthymia F34.1 ; Hyperlipemia, mixed E78.2 ; Neuropathy G62.9 ; Encounter for immunization Z23 ; Encounter for other screening for malignant neoplasm of breast Z12.39 and Mixed stress and urge urinary incontinence N39.46 [place] [address] 48845- 0240 Aug, Parkinsons disease G20 [place] [id number] [place] [address] 52679- 1173 21 Aug, 2017 Type 2 diabetes mellitus with unspecified complications E11.8 ; Left shoulder pain M25.512 and Hypotensive episode I95.9 [place] [id number] [place] [address] 04676- 4871 09 Aug, 2017 Coronary artery disease involving swin[place] coronary artery of swinomish heart without angina pectoris I25.10 [place] [id number] [place] [address] 41544- 7700 07 Aug, 2017 Type 2 diabetes mellitus with unspecified complications E11.8 [place] [id number] [place] [address] 66039- 7347 Jul, Callus of foot L84 [place] [id number] [place] [address] 56603- 3070 Jul, [place] [address] 86383- 2081 Jul, Callus of foot L84 ; Episodic cluster headache, not intractable G44.019 ; Type 2 diabetes mellitus with unspecified complications E11.8 and Parkinsons disease G20 [place] [address] 64413- 7241 Jul, [place] [id number] [place] [address] 68740- 0188 Jul, [place] [id number] [place] [address] 78817- 0795 Jun, Type 2 diabetes mellitus with unspecified complications E11.8 ; Unsteady gait R26.81 ; Forgetfulness R68.89 and Hallucinations R44.3 [place] [id number] [place] [address] 06259- 8955 Jun, [place] [id number] [place] [address] 41915- 4150 Jun, Left shoulder pain M25.512 [place] [id number] [place] [address] 07256- 5337 May, Hypernatremia E87.0 and Polydipsia R63.1 [place] [id number] [place] [address] 50286- 5127 May, Hypernatremia E87.0 and Polydipsia R63.1 [place] [id number] [place] [address] 59460- 2122 May, Hypoglycemia E16.2 ; Dysuria R30.0 ; Unsteadiness on feet R26.81 ; Forgetfulness R68.89 ; Type 2 diabetes mellitus with unspecified complications E11.8 and Yeast infection involving the vagina and surrounding area B37.3 [place] [id number] [place] [address] 21256- 0918 May, Acute cystitis without hematuria N30.00 [facility] [id number] [place] [address] 33629 -3920 28 Apr, 2017 Dysuria R30.0 and Acute cystitis without hematuria N30.00 [facility] [address] 70844- 7597 05 Apr, 2017 Hypernatremia E87.0 and Polydipsia R63.1 [facility] [address] 19880- 3274 02 Apr, 2017 Vertigo R42 and Type 2 diabetes mellitus with unspecified complications E11.8 [place] [address] 641995- 0401 20 Mar, 2017 [place] [address] 73838- 8208 19 Mar, 2017 Left shoulder pain M25.512 [place] [address] 56473- 9769 13 Mar, 2017 Vertigo R42 [place] [address] 53428- 4953 12 Mar, 2017 Polydipsia R63.1 [place] [address] 36746- 9109 12 Mar, 2017 Polydipsia R63.1 [place] [address] 56513- 7483 11 Mar, 2017 Vertigo R42 [place] [address] 12983- 9037 07 Mar, 2017 Type 2 diabetes mellitus with unspecified complications E11.8 ; Vertigo R42 ; Polydipsia R63.1 ; Polyuria R35.8 ; Hypothyroidism ( acquired) E03.9 ; Abnormal urinalysis R82.90 and Dysthymia F34.1 [place] [address] 93645- 6836 Mar, Coronary artery disease of swinomish artery with stable angina pectoris, unspecified whether swinomish or transplanted heart I25.118 ; Systolic CHF, chronic I50.22 ; Hyperlipemia, mixed E78.2 and Essential hypertension I10 [facility] [address] [place] [address] [id number] Feb, Dental caries K02.9 [facility] [address] 31185- 0097 Feb, Type 2 diabetes mellitus with diabetic neuropathy, unspecified E11.40 [facility] [id number] [place] [address] 04085- 3831 Dec, Left shoulder pain M25.512 [facility] [id number] [place] [address] 68239- 7465 Dec, [facility] [address] 28908- 0801 Dec, Type 2 diabetes mellitus with unspecified complications E11.8 [facility] [id number] [place] [address] [id number] Dec, Dental examination Z01.20 [facility] [id number] [place] [address] 31186- 2328 Dec, Type 2 diabetes mellitus with diabetic neuropathy, unspecified E11.40 [facility] [id number] [place] [address] 05881- 4486 Dec, [facility] [address] 49299- 0609 Dec, Type 2 diabetes mellitus with diabetic neuropathy, unspecified E11.40 [facility] [id number] [place] [address] 04756- 8470 November, Left shoulder pain M25.512 [facility] [id number] [place] [address] 40784- 6040 November, [facility] [address] 55900- 8627 November, Type 2 diabetes mellitus with unspecified complications E11.8 and Dysuria R30.0 [place] [id number] [place] [address]- 2344 Oct, Left shoulder pain M25.512 [place] [id number] [place] [address] 97003- 6489 Sep, Left shoulder pain M25.512 [facility] [address] 73315- 1281 Sep, Pre-op testing Z01.818 [place] [address] [place] [address] 2658 Sep, Pre-op testing Z01.818 [place] [id number] [place] [address] 58778- 5863 Sep, Pre-op testing Z01.818 [place] [address] 00813- 7377 Sep, Pre-op testing Z01.818 and Mouth pain K13.79 [place] [address] 96325- 8585 Sep, Left shoulder pain M25.512 [place] [id number] [place] [address] 77120- 8112 Aug, Other eczema L30.8 [facility] [address] 28071- 0915 Aug, PVD (peripheral vascular disease) I73.9 ; Type 2 diabetes mellitus with unspecified complications E11.8 ; Acute cystitis with hematuria N30.01 ; Other eczema L30.8 ; Dysuria R30.0 and Left shoulder pain M25.512 [facility] [address] [place] [address] 17596 -6292 Jul, Otalgia of right ear H92.01 and Blood in ear canal, right H92.21 [facility] [id number] [place] [address] 73208- 5924 Jul, Arthralgia, unspecified joint M25.50 ; PVD (peripheral vascular disease) I73.9 and Neuropathy G62.9 [place] [id number] [place] [address] 24292- 4387 Jul, [place] [address] 85282- 3355 Jun, Medicare annual wellness visit, initial Z00.00 ; Cervicalgia M54.2 ; Radiculopathy of cervical region M54.12 ; Encounter for immunization Z23 ; Type 2 diabetes mellitus with unspecified complications E11.8 and Essential hypertension I10 [place] [address] 57611- 7699 Jun, [place] [address] 24655- 7288 May, Hypothyroidism (acquired) E03.9 [place] [id number] [place] [address] 49945- 2033 May, Dysuria R30.0 ; Essential hypertension I10 ; Hypothyroidism (acquired) E03.9 and PVD (peripheral vascular disease) I73.9 [facility] [id number] [place] [address] 86034 -0766 May, Burning with urination R30.0 and Acute cystitis with hematuria N30.01 [place] [id number] [place] [address] 19300- 5298 May, Dental examination Z01.20 [place] [address] 26078- 7375 May, Hypothyroidism (acquired) E03.9 [place] [id number] [place] [address] 52321- 0789 Feb, [facility] [address] 84282- 6897 Feb, 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 ; PVD ( peripheral vascular disease) I73.9 ; Type 2 diabetes mellitus with unspecified complications E11.8 and Essential hypertension I10 [place] [address] [place] [address] 07794- 3508 Jan, [facility] [id number] [place] [address] 02762- 7278 Jan, Hypothyroidism (acquired) E03.9 [facility] [id number] [place] [address] 14999- 4807 Jan, [place] [id number] [place] [address] 08383- 2244 Jan, [place] [id number] [place] [address] 60809- 7041 Jan, Type 2 diabetes mellitus with unspecified complications E11.8 ; 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 and Essential ( primary) hypertension I10 [place] [id number] [place] [address] 39707- 1524 Jan, Type 2 diabetes mellitus with unspecified complications E11.8 ; 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 ; Essential hypertension I10 and PVD (peripheral vascular disease) I73.9 [place] [address] [address]- 5047 Jan, [place] [address] [place] [address] 04012- 2542 Jan, [place] [address] [address]- 8828 Jan, [place] [id number] [place] [address] 94704- 5209 Jan, Weakness R53.1 ; Fatigue, unspecified type R53.83 ; PVD ( peripheral vascular disease) I73.9 ; Acute osteomyelitis of other site M86.18 ; Type 2 diabetes mellitus with diabetic neuropathy, unspecified E11.40 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 [place] [id number] [place] [address] 46447- 7781 30 Dec, 2015 [place] [id number] [place] [address] 46640- 9765 Dec, Type 2 diabetes mellitus with unspecified complications E11.8 [place] [id number] [place] [address] 39286- 1904 Dec, [place] [id number] [place] [address] 28686- 9033 Dec, Pressure ulcer, unspecified pressure ulcer stage L89.90 and Type 2 diabetes mellitus with unspecified complications E11.8 [facility] [place] [id number] [place] [address] 42568 -8119 Dec, Toe infection L08.9 [place] [id number] [place] [address] 66595- 6980 November, Dental caries K02.9 [place] [id number] [place] [address] 25609- 1418 November, [place] [id number] [place] [address] 80971- 5044 November, Dental examination Z01.20 [place] [id number] [place] [address] 25354- 0603 Sep, Lipoma of torso D17.1 and Thoracic neuritis M54.14 [place] [address] [place] [address] 25202- 6497 Sep, [place] [id number] [place] [address] 48735- 6275 Aug, [facility] [id number] [place] [address] 36001 -0207 Jul, Dysuria R30.0 and UTI (urinary tract infection) N39.0 [place] [id number] [place] [address] 89265- 5013 Jun, Left shoulder pain M25.512 [place] [address] 11854- 5541 May, Shoulder pain, left M25.512 [facility] [id number] [place] [address] 22578- 6072 May, [facility] [address] 86519- 8993 May, [facility] [address] 28019- 6384 May, Left shoulder pain M25.512 [place] [address] 37265- 2665 May, [place] [address] 97892- 3721 Apr, Encounter for immunization Z23 [place] [address] 68243- 6283 Apr, Urinary tract infection, site not specified N39.0 ; Hypotension, unspecified I95.9 ; Type 2 diabetes mellitus with unspecified complications E11.8 and Generalized edema R60.1 [place] [id number] [place] [address] 47216- 1636 Apr, [place] [address] 36746- 1800 Mar, Diabetes with other specified manifestations, type II or unspecified type, not stated as uncontrolled 250.80 [place] [id number] [place] [address] 86679- 0493 Feb, Gout 274.9 and Diabetes 250.00 [place] [id number] [place] [address] 02763- 7966 Jan, [place] [address] 73873- 3006 November, CAD (coronary artery disease) 414.00 and CHF (congestive heart failure) 428.0 [facility] [address] [place] [address]- 4541 28 Oct, 2014 [facility] [address] [address]- 2152 Oct, [facility] [address] [place] [address]- 8504 Oct, [facility] [address] [facility] [id number] [address]- 0090 Sep, [facility] [address] [place] [address]- 5671 Sep, [facility] [address] [address]- 7412 Sep, [facility] [address] [address]- 8053 Sep, [facility] [address] [address]- 3065 Aug, [facility] [address], [place] [address]- 2535 Aug, [facility] [address] [address]- 9809 Aug, [facility] [address], [place] [address]- 5320 Aug, 2014 [facility] [address] [address]- 7917 Aug, 2014 [facility] [address], [place] [address]- 7957 Aug, 2014 [facility] [place] [facility] [address], [place] [address]- 7144 Aug, 2014 [facility] [address], [place] [address]- 1972 Aug, [facility] [address] [id number] [place] [address]- 3184 Jul, [facility] [place] [facility] [address] [id number] [place] [address]- 6402 Jul, [facility] [place] [facility] [address] [id number] [place] [address]- 5362 Jul, [facility] [place] [facility] [address] [id number] [place] [address]- 1033 Jul, [facility] [place] [facility] [address] [id number] [place] [address]- 2264 Jul, [facility] [place] [facility] [address] [id number] [place] [address]- 2924 Jul, [facility] [place] [facility] [address] [id number] [place] [address]- 8270 Jul, [facility] [place] [facility] [address] [id number] [place] [address]- 6560 Jul, [facility] [place] [facility] [address] [id number] [place] [address]- 3881 Jul, [facility] [place] [facility] [address] [id number] [place] [address]- 5598 Jul, [facility] [place] [facility] [address] [id number] [place] [address]- 1217 Jun, [facility] [place] [facility] [address] [id number] [address]- 8896 Jun, [facility] [place] [facility] [address] [id number] [place] [address]- 3209 Jun, [facility] [place] [facility] [address] [id number] [place] [address]- 9104 Jun, [facility] [place] [facility] [address] [id number] [place] [address]- 1864 Jun, [facility] [place] [facility] [address] [id number] [place] [address]- 9594 Jun, [facility] [place] [facility] [address] [id number] [place] [address]- 0120 Jun, [facility] [place] [facility] [address] [id number] [place] [address]- 5958 Jun, [facility] [place] [facility] [address] [id number] [place] 1184 Jun, [facility] [place] [facility] [address] [id number] [place] [address]- 9362 Jun, [facility] [place] [facility] [address] [id number] [place] [address]- 2261 May, [facility] [place] [facility] [address] [id number] [place] [address]- 6807 May, [facility] [place] [facility] [address] [id number] [place] [address]- 6809 Mar, [facility] [place] [facility] [address] [id number] [place] [address]- 0462 Mar, [facility] [place] [facility] [address] [id number] [place] [address]- 5038 Mar, [facility] [place] [facility] [address] [id number] [place] [address]- 6639 Mar, [facility] [place] [facility] [address] [id number] [place] [address]- 5830 Feb, [facility] [place] [facility] [address] [id number] [place] [address]- 9247 Feb, [facility] [place] [facility] [address] [id number] [place] 1429 Feb, [facility] [place] [facility] [address] [id number] [place] 3770 Jan, [facility] [place] [facility] [address] [id number] [place] 8894 Jan, [facility] [place] [facility] [address] [id number] [place] [address]- 9575 Jan, [facility] [place] [facility] [address] [id number] [place] [address]- 3779 Jan, [facility] [place] [facility] [address] [id number] [place] [address] Jan, [facility] [place] [facility] [address] [id number] [place] [address] Jan, [facility] [place] [facility] [address] [id number] [place] [address] Jan, [facility] [place] [facility] [address] [id number] [place] [address] Jan, [facility] [place] [facility] [address] [id number] [place] [address] Jan, [facility] [place] [facility] [address] [id number] [place] [address] Jan, [facility] [place] [facility] [address] [id number] [place] [address] Dec, [facility] [place] [facility] [address] [id number] [place] [address] Dec, [facility] [place] [facility] [address] [id number] [place] [address] [address] November, [facility] [place] [facility] [address] [id number] [place] [address] November, [facility] [place] [facility] [address] [id number] [place] [address] November, [facility] [place] [facility] [address] [id number] [place] [address] November, [facility] [place] [facility] [address] [id number] [place] [address] November, [facility] [place] [facility] [address] [id number] [place] [address] November, [facility] [place] [facility] [address] [id number] [place] [address] November, [facility] [place] [facility] [address] [id number] [place] [address] Oct, [facility] [place] [facility] [address] [id number] [place] [address] Oct, [facility] [place] [facility] [address] [id number] [place] [address] Sep, [facility] [place] [facility] [address] [id number] [place] [address] Sep, [facility] [place] [facility] [address] [id number] [place] [address] Sep, [facility] [place] [facility] [address] [id number] [place] [address] Sep, [facility] [place] [facility] [address] [id number] [place] [address] Sep, [facility] [place] [facility] [address] [id number] [place] [address] 15[address] Sep, [facility] [place] [facility] [address] [id number] [place] [address] 30[address] Sep, [facility] [place] [facility] [address] [id number] [place] [address] 4[address] Sep, [facility] [place] [facility] [address] [id number] [place] [address] 0284 Sep, [facility] [place] [facility] [address] [id number] [place] [address] 69[address] Sep, [facility] [place] [facility] [address] [id number] [place] [address] 1610 Aug, [facility] [place] [facility] [address] [id number] [place] [address] 0285 Aug, [facility] [place] [facility] [address] [id number] [place] [address] 63[address] 14 Jul, 2013 [facility] [address] [id number] [place] [address] 3041 14 Jul, 2013 [facility] [place] [facility] [address] [id number] [place] [address]- 8962 13 Jul, 2013 [facility] [address] [id number] [place] [address] 6083 13 Jul, 2013 [facility] [place] [facility] [address] [id number] [place] [address]- 2947 06 Jul, 2013 [facility] [place] [facility] [address] [id number] [place] [address]- 4379 06 Jul, 2013 [facility] [place] [facility] [address] [id number] [place] [address]- 4369 06 Jun, 2013 [facility] [place] [facility] [address] [id number] [place] [address]- 7586 Jun, [facility] [place] [facility] [address] [id number] [place] [address]- 1635 Jun, [facility] [place] [facility] [address] [id number] [place] [address]- 9765 Jun, [facility] [place] [facility] [address] [facility] [id number] [place] [address]- 6061 14 May, 2013 [facility] [place] [facility] [address] [id number] [place] [address]- 1375 14 May, 2013 [facility] [place] [facility] [address] [id number], [place] [address] 279[address] May, [facility] [place] [facility] [address] [id number] [place] [address]- 3065 May, [facility] [place] [facility] [address] [id number] [place] [address]- 1339 07 May, 2013 [facility] [place] [facility] [address] [id number] [place] [address] Apr, [facility] [place] [facility] [address] [id number] [place] [address]- 8468 Apr, [facility] [place] [facility] [address] [id number] [place] [address]- 9521 Apr, [facility] [place] [facility] [address] [id number] [place] [address]- 3279 Apr, [facility] [place] [facility] [address] [id number] [place] [address]- 3697 Apr, [facility] [place] [facility] [address] [id number] [place] [address]- 5072 Apr, [facility] [place] [facility] [address] [id number] [place] [address]- 2630 Apr, [facility] [place] [facility] [address] [id number] [place] [address]- 4355 Apr, [facility] [place] [facility] [address] [id number] [place] [address]- 0035 Apr, [facility] [place] [facility] [address] [id number] [place] [address]- 5772 Apr, [facility] [place] [facility] [address] [id number] [place] [address]- 4682 Apr, [facility] [place] [facility] [address] [id number] [place] [address]- 6409 Apr, [facility] [place] [facility] [address] [id number] [place] [address]- 4069 Mar, [facility] [place] [facility] [address] [id number] [place] [address] 7663 Mar, [facility] [place] [facility] [address] [id number] [place] [address] 2545 Feb, [facility] [place] [facility] [address] [id number] [place] [address]- 7494 Jan, [facility] [place] [facility] [address] [id number] [place] [address] 9388 Jan, [facility] [place] [facility] [address] [id number] [place] [address] Jan, [facility] [place] [facility] [address] [id number] [place] [address]- 4503 Jan, [facility] [place] [facility] [address] [id number] [place] [address]- 9274 Dec, [facility] [place] [facility] [address] [id number] [place] [address]- 2589 Dec, [facility] [place] [facility] [address] [id number] [place] [address]- 9764 Dec, [facility] [place] [facility] [address] [id number] [place] [address]- 5027 Dec, [facility] [place] [facility] [address] [id number] [place] [address]- 3701 Dec, [facility] [place] [facility] [address] [id number] [place] [address]- 8032 Dec, [facility] [place] [facility] [address] [id number] [place] [address]- 4614 Dec, [facility] [place] [facility] [address] [id number] [place] [address]- 9320 November, [facility] [place] [facility] [address] [id number] [place] [address]- 8583 November, [facility] [place] [facility] [address] [id number] [place] [address]- 2703 November, [facility] [place] [facility] [address] [id number] [place] [address]- 6877 Oct, [facility] [place] [facility] [address] [id number] [place] [address]- 5985 Oct, [facility] [place] [facility] [address] [id number] [place] [address]- 8748 Oct, [facility] [place] [facility] [address] [id number] [place] [address]- 2546 Oct, [facility] [address] [id number] [place] [address]- 9026 Oct, [facility] [place] [facility] [address] [id number] [place] [address]- 2546 Sep, [facility] [address] [id number] [place] [address]- 9796 Sep, [facility] [place] [facility] [address] [id number] [place] [address]- 0938 Sep, [facility] [address] [id number] [place] [address]- 6056 Sep, [facility] [place] [facility] [address] [id number] [place] [address]- 5676 Aug, [facility] [place] [facility] [address] [id number] [place] [address]- 7096 Aug, [facility] [address] [id number] [place] [address] 2265 Aug, [facility] [address] [id number] [place] [address] 1856 Aug, [facility] [address] [id number] [place] [address]- 5996 Jul, [facility] [address] [id number] [place] [address]- 8036 Jul, [facility] [address] [id number] [place] [address]- 0570 Jun, [facility] [place] [facility] [address] [id number] [place] [address]- 6716 Jun, [facility] [place] [facility] [address] [id number] [place] [address]- 2546 Jun, [facility] [place] [facility] [address] [id number] [place] [address] 4044 Jun, [facility] [place] [facility] [address] [id number] [place] [address]- 7968 May, [facility] [place] [facility] [address] [id number] [place] [address]- 3224 May, [facility] [place] [facility] [address] [facility] [id number] [place] [address]- 7024 May, [facility] [place] [facility] [id number] [place] [address], [place] [address]- 4859 May, [facility] [place] [facility] [address] [id number] [place] [address]- 2727 Apr, [facility] [place] [facility] [id number] [place] [address], [place] [address]- 1047 Apr, [facility] [place] [facility] [address] [id number] [place] [address]- 1312 Apr, [facility] [place] [facility] [address] [id number], [place] [address]- 1970 Apr, [facility] [place] [facility] [address] [id number], [place] [address]- 6273 Apr, [facility] [place] [facility] [address] [facility] [id number], [place] [address]- 9166 Apr, [facility] [place] [facility] [address] [id number], [place] [address]- 8761 Apr, [facility] [place] [facility] [address] [id number], [place] [address]- 1490 Apr, [facility] [place] [facility] [address] [id number], [place] [address]- 8026 Apr, [facility] [place] [facility] [address] [facility] [id number], [place] [address]- 7520 Apr, [facility] [place] [facility] [address] [facility] [id number], [place] [address]- 4155 Feb, [facility] [place] [facility] [address] [id number] [place] [address]- 6716 Feb, [facility] [place] [facility] [address] [id number] [place] [address]- 6465 Jan, [facility] [place] [facility] [address] [id number] [place] [address]- 0906 Jan, [facility] [place] [facility] [address] [id number] [place] [address]- 1942 Jan, [facility] [place] [facility] [address] [id number] [place] [address]- 2262 Jan, [facility] [place] [facility] [address] [id number] [place] [address]- 3298 Jan, [facility] [place] [facility] [address] [id number] [place] [address]- 1395 Jan, [facility] [place] [facility] [address] [id number] [place] [address]- 9069 Dec, [facility] [place] [facility] [address] [id number] [place] [address]- 7457 November, [facility] [place] [facility] [address] [id number] [place] [address]- 2906 November, [facility] [place] [facility] [address] [id number] [place] [address]- 3914 November, [facility] [place] [facility] [address] [id number] [place] [address]- 5925 Sep, [facility] [place] [facility] [address] [id number] [place] [address]- 3976 Sep, [facility] [place] [facility] [address] [id number] [place] [address]- 2318 Sep, [facility] [place] [facility] [address] [id number] [place] [address]- 9638 Sep, [facility] [place] [facility] [address] [id number] [place] [address]- 3025 Sep, [facility] [place] [facility] [address] [id number] [place] [address]- 0541 Sep, [facility] [place] [facility] [address] [id number] [place] [address]- 5346 13 Aug, 2011 [facility] [place] [facility] [address] [id number] [place] [address]- 3956 Aug, [facility] [place] [facility] [address] [id number] [place] [address]- 9236 Aug, [facility] [place] [facility] [address] [id number] [place] [address]- 0084 Jul, [facility] [place] [facility] [address] [id number] [place] [address]- 1080 Jul, [facility] [place] [facility] [address] [id number] [place] [address]- 9522 Jul, [facility] [place] [facility] [address] [id number] [place] [address]- 9026 Jul, [facility] [place] [facility] [address] [id number] [place] [address]- 3006 Jun, [facility] [place] [facility] [address] [id number] [place] [address]- 0783 Jun, [facility] [place] [facility] [address] [id number] [place] [address]- 0852 Jun, [facility] [place] [facility] [address] [id number], [place] [address]- 6261 Jun, [facility] [place] [facility] [address] [id number] [place] [address]- 1069 Jun, [facility] [place] [facility] [address] [id number] [place] [address]- 2940 Jun, [facility] [place] [facility] [address] [id number] [place] [address]- 5081 May, [facility] [place] [facility] [address] [id number], [place] [address]- 5987 May, [facility] [address] [id number] [place] [address]- 8316 May, [facility] [address] [id number] [place] [address]- 6896 Apr, [facility] [address] [id number] [place] [address]- 1486 Jan, [facility] [address] [id number] [place] [address]- 7373 20 Jun, 2010 [facility] [address] [id number] [place] [address]- 5126 20 Jun, 2010 [facility] [place] [facility] [address] [id number] [place] [address]- 0056 15 Jun, 2010 [facility] [address] [facility] [id number] [place] [address]- 6442 15 Jun, 2010 [facility] [place] [facility] [address] [id number] [place] [address]- 6908 15 Jun, 2010 [facility] [address] [facility] [id number] [place] [address]- 3573 Jun, [facility] [place] [facility] [address] [id number] [place] [address]- 8485 Jun, [facility] [place] [facility] [address] [id number] [place] [address]- 6031 Apr, [facility] [place] [facility] [address] [id number] [place] [address]- 4989 Feb, [facility] [place] [facility] [address] [id number] [place] [address]- 5618 15 Aug, 2009 [facility] [place] [facility] [address] [id number] [place] [address]- 7151 18 Jul, 2009 [facility] [place] [facility] [address] [id number] [place] [address]- 9085 11 Jul, 2009 [facility] [place] [facility] [address] [id number] [place] [address]- 6713 29 Jun, 2009 [facility] [place] [facility] [address] [id number] [place] [address]- 3636 Jun, [facility] [place] [facility] [address] [id number] [place] [address] 2546 Jun, [facility] [place] [facility] [address] [id number] [place] [address] 2546 Jun, [facility] [place] [facility] [address] [id number] [place] [address] 2541 16 Jun, 2009 [facility] [place] [facility] [address] [id number] [place] [address]- 8066 Jun, [facility] [place] [facility] [address] [facility] [id number] [place] 9622 Jun, [facility] [place] [facility] [address] [id number] [place] [address]- 8187 30 May, 2009 [facility] [place] [facility] [address] [id number] [place] [address]- 9302 27 May, 2009 [facility] [place] [facility] [address] [id number] [place] [address]- 2217 23 May, 2009 [facility] [place] [facility] [address] [facility] [id number], [place] [address]- 9273 18 May, 2009 [facility] [place] [facility] [address] [id number], [place] [address]- 6200 18 May, 2009 [facility] [place] [facility] [address] [id number], [place] [address] 2545 16 May, 2009 [facility] [place] [facility] [address] [id number] [place] [address] 2546 03 May, 2009 [facility] [place] [facility] [address] [id number], [place] [address]- 0896 16 Apr, 2009 [facility] [place] [facility] [address] [id number], [place] [address] 9180 Apr, [facility] [address] [facility] [id number] [place] [address]- 2676 Jan, [facility] [address] [facility] [id number], [place] [address]- 2546 Oct, IMMUNIZATIONS No Known Immunizations SOCIAL HISTORY Never Assessed REASON FOR VISIT Refill request PLAN OF CARE VITAL SIGNS MEDICATIONS Medication Instructions Dosage Frequency Start Date End Date Duration Status Alcohol Swabs 70 % Wipe area prior to injection or testing blood sugar Oct, Active RESULTS No Results PROCEDURES No Known [...]
--- OUTSIDE RECORDS SUMMARY | 2018-11-09 13:13 | XMS REPORT ---
Author Author PRABHA HILL [facility] Address [address] [place] [address] Care Team Providers Care Ethnoarchaeology Professor Name Role Phone PRABHA HILL Unavailable PROBLEMS Type Condition ICD9-CM Code ARO70-MM Code Onset Dates Condition Status SNOMED Code Problem Hypernatremia E87.0 Active 53762878 Problem Hallucinations R44.3 Active 6356481 Problem Hypoglycemia E16.2 Active 511049574 Problem Anxiety F41.9 Active 05929312 Problem Dementia in other diseases classified elsewhere without behavioral disturbance F02.80 Active 798853024 Problem Neurogenic orthostatic hypotension G90.3 Active 490196293 Problem Dementia with Lewy bodies G31.83 Active 524856908 Problem Coronary artery disease involving qagan tayagungin coronary artery of qagan tayagung[place] heart without angina pectoris I25.10 Active 7486341543305 Problem Parkinsons disease G20 Active 31919635 Problem Unsteady gait R26.81 Active 41901970 Problem Mixed stress and urge urinary incontinence N39.46 Active 926387920 Problem Episodic cluster headache, not intractable G44.019 Active 553578211 Problem PVD (peripheral vascular disease) I73.9 Active 156860892 Problem 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 Active 042692090 Problem Dysuria R30.0 Active 86567807 Problem Type 2 diabetes mellitus with unspecified complications E11.8 Active 94875391 Problem Neuropathy G62.9 Active 943654375 Problem Polydipsia R63.1 Active 20356609 Problem Essential hypertension I10 Active 89400078 Problem Dysthymia F34.1 Active 33200365 Problem Hypothyroidism (acquired) E03.9 Active 493767221 Problem Hyperlipemia, mixed E78.2 Active 704390571 ALLERGIES No Information ENCOUNTERS Encounter Location Date Diagnosis [facility] [address] [facility] [id number] [address] Jan, Left shoulder pain M25.512 [facility] [id number] [place] [address] 98054- 8023 Dec, Parkinsons disease G20 [facility] [id number] [place] [address] 50550- 4602 08 Dec, 2017 Left shoulder pain M25.512 [facility] [id number] [place] [address] 45697- 6776 Dec, Type 2 diabetes mellitus with unspecified complications E11.8 ; Anxiety F41.9 ; Therapeutic drug monitoring Z51.81 and Analgesic use Z79.899 [facility] [id number] [place] [address] 54031- 8604 November, [facility] [address] 01861- 0207 November, [facility] [id number] [place] [address] 12114- 4542 November, Left shoulder pain M25.512 [facility] [id number] [place] [address] 58513- 0914 Oct, [facility] [id number] [place] [address] 73544 -9485 Oct, [facility] [id number] [place] [address] 39387- 6708 Oct, Parkinsons disease G20 [facility] [id number] [place] [address] 53867 -8357 18 Oct, 2017 Acute cystitis without hematuria N30.00 and Viral upper respiratory tract infection J06.9 [facility] [id number] [place] [address] 37526- 4922 Oct, [facility] [id number] [place] [address] 86189- 1034 Oct, Type 2 diabetes mellitus with unspecified complications E11.8 [facility] [id number] [place] [address] 99221- 3024 Oct, Left shoulder pain M25.512 [place] [id number] [place] [address] 42112- 8353 Oct, Type 2 diabetes mellitus with unspecified complications E11.8 ; Dysuria R30.0 and Neurogenic orthostatic hypotension G90.3 [place] [address] 98420- 2527 Sep, Left shoulder pain M25.512 [place] [address] 30091- 3575 Sep, Medicare annual wellness visit, initial Z00.00 ; Parkinsons disease G20 ; Type 2 diabetes mellitus with unspecified complications E11.8 ; Essential hypertension I10 ; Coronary artery disease involving qagan tayagungin coronary artery of qagan tayagung[place] heart without angina pectoris I25.10 ; Hypothyroidism (acquired ) E03.9 ; PVD (peripheral vascular disease) I73.9 ; Dysthymia F34.1 ; Hyperlipemia, mixed E78.2 ; Neuropathy G62.9 ; Encounter for immunization Z23 ; Encounter for other screening for malignant neoplasm of breast Z12.39 and Mixed stress and urge urinary incontinence N39.46 [place] [address] 01069- 6250 Aug, Parkinsons disease G20 [place] [id number] [place] [address] 76503- 6439 21 Aug, 2017 Type 2 diabetes mellitus with unspecified complications E11.8 ; Left shoulder pain M25.512 and Hypotensive episode I95.9 [place] [id number] [place] [address] 01573- 1585 09 Aug, 2017 Coronary artery disease involving qagan tayagungin coronary artery of qagan tayagung[place] heart without angina pectoris I25.10 [place] [id number] [place] [address] 47066- 8683 07 Aug, 2017 Type 2 diabetes mellitus with unspecified complications E11.8 [place] [id number] [place] [address] 95315- 8446 Jul, Callus of foot L84 [place] [id number] [place] [address] 34818- 5495 Jul, [place] [address] 12945- 3733 Jul, Callus of foot L84 ; Episodic cluster headache, not intractable G44.019 ; Type 2 diabetes mellitus with unspecified complications E11.8 and Parkinsons disease G20 [place] [address] 18127- 0195 Jul, [place] [id number] [place] [address] 06334- 0761 Jul, [place] [id number] [place] [address] 74054- 1627 Jun, Type 2 diabetes mellitus with unspecified complications E11.8 ; Unsteady gait R26.81 ; Forgetfulness R68.89 and Hallucinations R44.3 [place] [id number] [place] [address] 61362- 5922 Jun, [place] [id number] [place] [address] 71959- 7004 Jun, Left shoulder pain M25.512 [place] [id number] [place] [address] 78943- 9695 May, Hypernatremia E87.0 and Polydipsia R63.1 [place] [id number] [place] [address] 02498- 7094 May, Hypernatremia E87.0 and Polydipsia R63.1 [place] [id number] [place] [address] 84706- 2462 May, Hypoglycemia E16.2 ; Dysuria R30.0 ; Unsteadiness on feet R26.81 ; Forgetfulness R68.89 ; Type 2 diabetes mellitus with unspecified complications E11.8 and Yeast infection involving the vagina and surrounding area B37.3 [place] [id number] [place] [address] 48612- 1038 May, Acute cystitis without hematuria N30.00 [facility] [id number] [place] [address] 29679 -4615 28 Apr, 2017 Dysuria R30.0 and Acute cystitis without hematuria N30.00 [facility] [address] 08652- 9389 05 Apr, 2017 Hypernatremia E87.0 and Polydipsia R63.1 [facility] [address] 62189- 2127 02 Apr, 2017 Vertigo R42 and Type 2 diabetes mellitus with unspecified complications E11.8 [place] [address] 925568- 8668 20 Mar, 2017 [place] [address] 22994- 8774 19 Mar, 2017 Left shoulder pain M25.512 [place] [address] 01189- 7666 13 Mar, 2017 Vertigo R42 [place] [address] 93707- 1358 12 Mar, 2017 Polydipsia R63.1 [place] [address] 93669- 7450 12 Mar, 2017 Polydipsia R63.1 [place] [address] 13582- 6083 11 Mar, 2017 Vertigo R42 [place] [address] 62556- 3410 07 Mar, 2017 Type 2 diabetes mellitus with unspecified complications E11.8 ; Vertigo R42 ; Polydipsia R63.1 ; Polyuria R35.8 ; Hypothyroidism ( acquired) E03.9 ; Abnormal urinalysis R82.90 and Dysthymia F34.1 [place] [address] 50947- 2537 Mar, Coronary artery disease of qagan tayagungin artery with stable angina pectoris, unspecified whether qagan tayagungin or transplanted heart I25.118 ; Systolic CHF, chronic I50.22 ; Hyperlipemia, mixed E78.2 and Essential hypertension I10 [facility] [address] [place] [address] [id number] Feb, Dental caries K02.9 [facility] [address] 26708- 4375 Feb, Type 2 diabetes mellitus with diabetic neuropathy, unspecified E11.40 [facility] [id number] [place] [address] 45075- 5081 Dec, Left shoulder pain M25.512 [facility] [id number] [place] [address] 15582- 8492 Dec, [facility] [address] 30795- 2269 Dec, Type 2 diabetes mellitus with unspecified complications E11.8 [facility] [id number] [place] [address] [id number] Dec, Dental examination Z01.20 [facility] [id number] [place] [address] 34300- 5037 Dec, Type 2 diabetes mellitus with diabetic neuropathy, unspecified E11.40 [facility] [id number] [place] [address] 70122- 8417 Dec, [facility] [address] 42037- 1705 Dec, Type 2 diabetes mellitus with diabetic neuropathy, unspecified E11.40 [facility] [id number] [place] [address] 00186- 3802 November, Left shoulder pain M25.512 [facility] [id number] [place] [address] 46581- 3792 November, [facility] [address] 17698- 2945 November, Type 2 diabetes mellitus with unspecified complications E11.8 and Dysuria R30.0 [place] [id number] [place] [address] 2721 Oct, Left shoulder pain M25.512 [place] [id number] [place] [address] 85884- 0405 Sep, Left shoulder pain M25.512 [facility] [address] 52556- 3440 Sep, Pre-op testing Z01.818 [place] [address] [place] 5578 Sep, Pre-op testing Z01.818 [place] [id number] [place] [address] 56394- 4325 Sep, Pre-op testing Z01.818 [place] [address] 47047- 0494 Sep, Pre-op testing Z01.818 and Mouth pain K13.79 [place] [address] 26931- 5676 Sep, Left shoulder pain M25.512 [place] [id number] [place] [address] 72863- 0840 Aug, Other eczema L30.8 [facility] [address] 82624- 6033 Aug, PVD (peripheral vascular disease) I73.9 ; Type 2 diabetes mellitus with unspecified complications E11.8 ; Acute cystitis with hematuria N30.01 ; Other eczema L30.8 ; Dysuria R30.0 and Left shoulder pain M25.512 [facility] [address] [place] [address] 15566 -4168 Jul, Otalgia of right ear H92.01 and Blood in ear canal, right H92.21 [facility] [id number] [place] [address] 78442- 3361 Jul, Arthralgia, unspecified joint M25.50 ; PVD (peripheral vascular disease) I73.9 and Neuropathy G62.9 [place] [address] [place] [id number] [place] [address] 40372- 2149 Jul, [place] [address] 14820- 8495 Jun, Medicare annual wellness visit, initial Z00.00 ; Cervicalgia M54.2 ; Radiculopathy of cervical region M54.12 ; Encounter for immunization Z23 ; Type 2 diabetes mellitus with unspecified complications E11.8 and Essential hypertension I10 [place] [address] 14907- 6753 Jun, [place] [address] 06330- 5013 May, Hypothyroidism (acquired) E03.9 [place] [address] [id number] [place] [address] 42941- 8731 May, Dysuria R30.0 ; Essential hypertension I10 ; Hypothyroidism (acquired) E03.9 and PVD (peripheral vascular disease) I73.9 [facility] [id number] [place] [address] 29539 -2777 May, Burning with urination R30.0 and Acute cystitis with hematuria N30.01 [place] [address] [place] [id number] [place] [address] 85458- 9017 May, Dental examination Z01.20 [place] [address] 92292- 1737 May, Hypothyroidism (acquired) E03.9 [place] [address] [id number] [place] [address] 02722- 0792 Feb, [facility] [address] 65152- 9497 Feb, 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 ; PVD ( peripheral vascular disease) I73.9 ; Type 2 diabetes mellitus with unspecified complications E11.8 and Essential hypertension I10 [place] [address] [place] [address] 07405- 8415 Jan, [facility] [id number] [place] [address] 51434- 9770 Jan, Hypothyroidism (acquired) E03.9 [facility] [id number] [place] [address] 25935- 6893 Jan, [place] [address] [place] [id number] [place] [address] 13980- 1252 Jan, [place] [address] [place] [id number] [place] [address] 52504- 6482 Jan, Type 2 diabetes mellitus with unspecified complications E11.8 ; 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 and Essential ( primary) hypertension I10 [place] [address] [place] [id number] [place] [address] 65906- 4075 Jan, Type 2 diabetes mellitus with unspecified complications E11.8 ; 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 ; Essential hypertension I10 and PVD (peripheral vascular disease) I73.9 [place] [address] [address]- 9422 Jan, [place] [address] [place] [address] 64932- 2540 Jan, [place] [address] [address]- 8165 Jan, [place] [address] [place] [address] [id number] [place] [address] 36957- 5789 Jan, Weakness R53.1 ; Fatigue, unspecified type R53.83 ; PVD ( peripheral vascular disease) I73.9 ; Acute osteomyelitis of other site M86.18 ; Type 2 diabetes mellitus with diabetic neuropathy, unspecified E11.40 and manager 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 [place] [id number] [place] [address] 50076 -8101 Dec, Toe infection L08.9 [place] [address] [place] [id number] [place] [address] 47293- 7726 November, Dental caries K02.9 [place] [address] [place] [id number] [place] [address] 80239- 4410 November, [place] [address] [place] [id number] [place] [address] 54030- 7794 November, Dental examination Z01.20 [place] [address] [place] [id number] [place] [address] 27016- 3345 Sep, Lipoma of torso D17.1 and Thoracic neuritis M54.14 [place] [address] [place] [address] 29575- 7016 Sep, [place] [address] [place] [id number] [place] [address] 55192- 5481 Aug, [facility] [id number] [place] [address] 72286 -6480 Jul, Dysuria R30.0 and UTI (urinary tract infection) N39.0 [place] [address] [id number] [place] [address] 79120- 2952 Jun, Left shoulder pain M25.512 [place] [address] 99517- 5464 May, Shoulder pain, left M25.512 [facility] [id number] [place] [address] 07354- 9055 May, [facility] [address] 59667- 0953 May, [facility] [address] 20737- 6383 May, Left shoulder pain M25.512 [place] [address] 07120- 1704 May, [place] [address] 64577- 5744 Apr, Encounter for immunization Z23 [place] [address] 08796- 4355 Apr, Urinary tract infection, site not specified N39.0 ; Hypotension, unspecified I95.9 ; Type 2 diabetes mellitus with unspecified complications E11.8 and Generalized edema R60.1 [place] [address] [place] [id number] [place] [address] 34994- 6064 Apr, [place] [address] 85720- 1777 Mar, Diabetes with other specified manifestations, type II or unspecified type, not stated as uncontrolled 250.80 [place] [address] [place] [id number] [place] [address] 95144- 1896 Feb, Gout 274.9 and Diabetes 250.00 [place] [address] [place] [id number] [place] [address] 52080- 2764 Jan, [place] [address] 81921- 4946 November, CAD (coronary artery disease) 414.00 and CHF (congestive heart failure) 428.0 [facility] [address] [place] [address]- 7574 28 Oct, 2014 [facility] [address] [address]- 5355 Oct, [facility] [address] [place] [address]- 9048 Oct, [facility] [address] [facility] [id number] [address]- 1771 Sep, [facility] [address] [place] [address]- 4773 Sep, [facility] [address], [place] [address]- 1680 Sep, [facility] [address] [address]- 6696 Sep, [facility] [address], [place] [address]- 4539 Aug, [facility] [address] [address]- 2220 Aug, [facility] [address], [place] [address]- 1612 Aug, [facility] [address], [place] [address]- 6055 Aug, 2014 [facility] [address], [place] [address]- 9156 Aug, 2014 [facility] [address], [place] [address]- 1019 Aug, 2014 [facility] [place] [facility] [address], [place] [address]- 6921 Aug, 2014 [facility] [address], [place] [address]- 0737 Aug, [facility] [address] [id number] [place] [address]- 4906 Jul, [facility] [place] [facility] [address] [id number] [place] [address]- 4863 Jul, [facility] [place] [facility] [address] [id number] [place] [address]- 7273 Jul, [facility] [place] [facility] [address] [id number] [place] [address]- 4208 Jul, [facility] [place] [facility] [address] [id number] [place] [address]- 1573 Jul, [facility] [place] [facility] [address] [id number] [place] [address]- 7205 Jul, [facility] [place] [facility] [address] [id number] [place] [address]- 3599 Jul, [facility] [place] [facility] [address] [id number] [place] [address]- 8241 Jul, [facility] [place] [facility] [address] [id number] [place] [address]- 6379 Jul, [facility] [place] [facility] [address] [id number] [place] [address]- 8050 Jul, [facility] [place] [facility] [address] [id number] [place] [address]- 1332 Jun, [facility] [place] [facility] [address] [id number], [place] [address]- 5571 Jun, [facility] [place] [facility] [address] [id number] [place] [address]- 2142 Jun, [facility] [place] [facility] [address] [id number] [place] [address]- 7857 Jun, [facility] [place] [facility] [address] [id number] [place] [address]- 5641 Jun, [facility] [place] [facility] [address] [id number] [place] [address]- 3186 Jun, [facility] [place] [facility] [address] [id number] [place] [address]- 0111 Jun, [facility] [place] [facility] [address] [id number] [place] [address]- 0502 Jun, [facility] [place] [facility] [address] [id number] [place] 9165 Jun, [facility] [place] [facility] [address] [id number] [place] [address]- 2945 Jun, [facility] [place] [facility] [address] [id number] [place] [address]- 7211 May, [facility] [place] [facility] [address] [id number] [place] [address]- 2407 May, [facility] [place] [facility] [address] [id number] [place] [address]- 9481 Mar, [facility] [place] [facility] [address] [id number] [place] [address]- 0971 Mar, [facility] [place] [facility] [address] [id number] [place] [address]- 4702 Mar, [facility] [place] [facility] [address] [id number] [place] [address]- 6520 Mar, [facility] [place] [facility] [address] [id number] [place] [address]- 5638 Feb, [facility] [place] [facility] [address] [id number] [place] [address]- 1940 Feb, [facility] [place] [facility] [address] [id number] [place] [address] Feb, [facility] [place] [facility] [address] [id number] [place] [address] [address] Jan, [facility] [place] [facility] [address] [id number] [place] [address] [address] Jan, [facility] [place] [facility] [address] [id number] [place] [address] Jan, [facility] [place] [facility] [address] [id number] [place] [address] Jan, [facility] [place] [facility] [address] [id number] [place] [address] Jan, [facility] [place] [facility] [address] [id number] [place] [address] Jan, [facility] [place] [facility] [address] [id number] [place] [address] Jan, [facility] [place] [facility] [address] [id number] [place] [address] Jan, [facility] [place] [facility] [address] [id number] [place] [address] Jan, [facility] [place] [facility] [address] [id number] [place] [address] Jan, [facility] [place] [facility] [address] [id number] [place] [address] Dec, [facility] [place] [facility] [address] [id number] [place] [address] Dec, [facility] [place] [facility] [address] [id number] [place] [address] [address] November, [facility] [place] [facility] [address] [id number] [place] [address] November, [facility] [place] [facility] [address] [id number] [place] [address] November, [facility] [place] [facility] [address] [id number] [place] [address] November, [facility] [place] [facility] [address] [id number] [place] [address] November, [facility] [place] [facility] [address] [id number] [place] [address] November, [facility] [place] [facility] [address] [id number] [place] [address] November, [facility] [place] [facility] [address] [id number] [place] [address] Oct, [facility] [place] [facility] [address] [id number] [place] [address] Oct, [facility] [facility] [address] [id number] [place] [address] Sep, [facility] [place] [facility] [address] [id number] [place] [address] Sep, [facility] [place] [facility] [address] [id number] [place] [address] Sep, [facility] [place] [facility] [address] [id number] [place] [address] 365[address] Sep, [facility] [place] [facility] [address] [id number] [place] [address] Sep, [facility] [place] [facility] [address] [id number] [place] [address] 39[address] Sep, [facility] [place] [facility] [address] [id number] [place] [address]- [address] Sep, [facility] [place] [facility] [address] [id number] [place] [address] 89[address] Sep, [facility] [place] [address] [id number] [place] [address]248 Sep, [facility] [place] [facility] [address] [id number] [place] [address]- 4226 Sep, [facility] [place] [facility] [address] [id number] [place] [address] 60[address] Aug, [facility] [address] [id number] [place] [address]- 0162 Aug, [facility] [place] [facility] [address] [id number] [place] [address]- 2610 14 Jul, 2013 [facility] [address] [id number] [place] [address]- 8877 14 Jul, 2013 [facility] [address] [id number] [place] [address]- 9679 13 Jul, 2013 [facility] [address] [id number] [place] [address]- 3635 13 Jul, 2013 [facility] [place] [facility] [address] [id number] [place] [address]- 4646 06 Jul, 2013 [facility] [place] [facility] [address] [id number] [place] [address]- 1928 06 Jul, 2013 [facility] [place] [address] [id number] [place] [address]- 0793 06 Jun, 2013 [facility] [place] [facility] [address] [id number] [place] [address]- 7149 Jun, [facility] [address] [id number] [place] [address]- 5469 Jun, [facility] [address] [id number] [place] [address]- [address]386 Jun, [facility] [address] [facility] [id number] [place] [address]- 0280 14 May, 2013 [facility] [address] [id number] [place] [address]- 3095 14 May, 2013 [facility] [address] [id number], [place] [address]- 7938 May, [facility] [address] [id number] [place] [address]- 7278 May, [facility] [address] [id number] [place] [address]- 0392 07 May, 2013 [facility] [address] [id number] [place] [address] Apr, [facility] [address] [id number] [place] [address]- 5292 Apr, [facility] [address] [id number] [place] [address]- 2982 Apr, [facility] [address] [id number] [place] [address]- 3146 Apr, [facility] [address] [id number] [place] [address]- 1837 Apr, [facility] [address] [id number] [place] [address]- 4351 Apr, [facility] [address] [id number] [place] [address]- 7224 Apr, [facility] [address] [id number] [place] [address]- 3309 Apr, [facility] [address] [id number] [place] [address]- 9199 Apr, [facility] [address] [id number] [place] [address]- 3700 Apr, [facility] [address] [id number] [place] [address]- 0226 Apr, [facility] [address] [id number] [place] [address]- 0061 Apr, [facility] [address] [id number] [place] [address]- 3405 Mar, [facility] [address] [id number] [place] [address]- 7368 Mar, [facility] [address] [id number] [place] [address] 254 Feb, [facility] [address] [id number] [place] [address]- 9661 Jan, [facility] [address] [id number] [place] [address]- 4389 Jan, [facility] [address] [id number] [place] Jan, [facility] [address] [id number] [place] [address]- 5280 Jan, [facility] [address] [id number] [place] [address]- 7319 Dec, [facility] [address] [id number] [place] [address]- 9121 Dec, [facility] [address] [id number] [place] [address]- 7012 Dec, [facility] [address] [id number] [place] [address]- 3441 Dec, [facility] [address] [id number] [place] [address]- 4967 Dec, [facility] [address] [id number] [place] [address]- 3319 Dec, [facility] [address] [id number] [place] [address]- 5188 Dec, [facility] [address] [id number] [place] [address]- 4308 November, [facility] [address] [id number] [place] [address]- 2676 November, [facility] [address] [id number] [place] [address]- 8897 November, [facility] [address] [id number] [place] [address]- 8833 Oct, [facility] [address] [id number] [place] [address]- 4685 Oct, [facility] [address] [id number] [place] [address]- 8004 Oct, [facility] [address] [id number] [place] [address]- 2546 Oct, [facility] [address] [id number] [place] [address]- 9996 Oct, [facility] [address] [id number] [place] [address]- 2546 Sep, [facility] [address] [id number] [place] [address]- 8576 Sep, [facility] [address] [id number] [place] [address]- 4388 Sep, [facility] [address] [id number] [place] [address]- 0956 Sep, [facility] [address] [id number] [place] [address]- 3656 Aug, [facility] [address] [id number] [place] [address]- 7126 Aug, [facility] [address] [id number] [place] [address]- 7599 Aug, [facility] [address] [id number] [place] [address]- 8766 Aug, [facility] [address] [id number] [place] [address]- 7296 Jul, [facility] [address] [id number] [place] [address]- 4756 Jul, [facility] [address] [id number] [place] [address]- 2929 Jun, [facility] [address] [id number] [place] [address]- 7996 Jun, [facility] [address] [id number] [place] [address]- 2546 Jun, [facility] [address] [id number] [place] [address]- 9582 Jun, [facility] [address] [id number] [place] [address]- 4986 May, [facility] [address] [id number] [place] [address]- 3534 May, [facility] [address] [facility] [id number] [place] [address]- 3841 May, [facility] [address] [id number] [place] [address], [place] [address]- 7335 May, [facility] [address] [id number] [place] [address]- 7580 Apr, [facility] [id number] [place] [address], [place] [address]- 7373 Apr, [facility] [address] [id number] [place] [address]- 8487 Apr, [facility] [address] [id number], [place] [address]- 3748 Apr, [facility] [address] [id number], [place] [address]- 7090 Apr, [facility] [address] [facility] [id number], [place] [address]- 3463 Apr, [facility] [address] [id number], [place] [address]- 0770 Apr, [facility] [address] [id number], [place] [address]- 9430 Apr, [facility] [address] [id number], [place] [address]- 8576 Apr, [facility] [address] [facility] [id number], [place] [address]- 8505 Apr, [facility] [address] [facility] [id number], [place] [address]- 2214 Feb, [facility] [address] [id number] [place] [address]- 3812 Feb, [facility] [address] [id number] [place] [address]- 5649 Jan, [facility] [address] [id number] [place] [address]- 1326 Jan, [facility] [address] [id number] [place] [address]- 7615 Jan, [facility] [address] [id number] [place] [address]- 6294 Jan, [facility] [address] [id number] [place] [address]- 2091 Jan, [facility] [address] [id number] [place] [address]- 5826 Jan, [facility] [address] [id number] [place] [address]- 5054 Dec, [facility] [address] [id number] [place] [address]- 0466 November, [facility] [address] [id number] [place] [address]- 1545 November, [facility] [address] [id number] [place] [address]- 5212 November, [facility] [address] [id number] [place] [address]- 8778 Sep, [facility] [address] [id number] [place] [address]- 9293 Sep, [facility] [address] [id number] [place] [address]- 5081 Sep, [facility] [address] [id number] [place] [address]- 1301 Sep, [facility] [address] [id number] [place] [address]- 2328 Sep, [facility] [address] [id number] [place] [address]- 8230 Sep, [facility] [address] [id number] [place] [address]- 5216 13 Aug, 2011 [facility] [address] [id number] [place] [address]- 6866 Aug, [facility] [address] [id number] [place] [address]- 2236 Aug, [facility] [address] [id number] [place] [address]- 1690 Jul, [facility] [address] [id number] [place] [address]- 8165 Jul, [facility] [address] [id number] [place] [address]- 3313 Jul, [facility] [address] [id number] [place] [address]- 8529 Jul, [facility] [address] [id number] [place] [address]- 5925 Jun, [facility] [address] [id number] [place] [address]- 2386 Jun, [facility] [address] [id number] [place] [address]- 1903 Jun, [facility] [address] [id number], [place] [address]- 1673 Jun, [facility] [address] [id number] [place] [address]- 5369 Jun, [facility] [address] [id number] [place] [address]- 1564 Jun, [facility] [address] [id number] [place] [address]- 8386 May, [facility] [address] [id number], [place] [address]- 1160 May, [facility] [address] [id number] [place] [address]- 7476 May, [facility] [address] [id number] [place] [address]- 1126 Apr, [facility] [address] [id number] [place] [address]- 9276 Jan, [facility] [address] [id number] [place] [address]- 2294 20 Jun, 2010 [facility] [address] [id number] [place] [address]- 4966 20 Jun, 2010 [facility] [address] [id number] [place] [address]- 7416 15 Jun, 2010 [facility] [address] [facility] [id number] [place] [address]- 6630 15 Jun, 2010 [facility] [address] [id number] [place] [address]- 9030 15 Jun, 2010 [facility] [address] [facility] [id number] [place] [address]- 2200 Jun, [facility] [address] [id number] [place] [address]- 6010 Jun, [facility] [address] [id number] [place] [address]- 3259 Apr, [facility] [address] [id number] [place] [address]- 1009 Feb, [facility] [address] [id number] [place] [address]- 0443 15 Aug, 2009 [facility] [address] [id number] [place] [address]- 9587 18 Jul, 2009 [facility] [address] [id number] [place] [address]- 3896 11 Jul, 2009 [facility] [address] [id number] [place] [address]- 0432 29 Jun, 2009 [facility] [address] [id number] [place] [address]- 9266 Jun, [facility] [address] [id number] [place] [address] 2546 Jun, [facility] [address] [id number] [place] [address] 2546 Jun, [facility] [address] [id number] [place] [address] 2541 16 Jun, 2009 [facility] [address] [id number] [place] [address]- 0256 Jun, [facility] [address] [facility] [id number] [place] [address] Jun, [facility] [address] [id number] [place] [address]- 7692 30 May, 2009 [facility] [address] [id number] [place] [address]- 0043 27 May, 2009 [facility] [place] [facility] [address] [id number] [place] [address]- 2764 23 May, 2009 [facility] [address] [facility] [id number], [place] [address]- 0708 18 May, 2009 [facility] [address] [id number], [place] [address]- 0806 18 May, 2009 [facility] [address] [id number], [place] [address] 2545 16 May, 2009 [facility] [address] [id number] [place] [address] 2546 03 May, 2009 [facility] [address] [id number], [place] [address]- 7836 16 Apr, 2009 [facility] [address] [id number], [place] [address] 2548 Apr, [facility] [address] [facility] [id number] [place] [address]- 2546 Jan, [facility] [address] [facility] [id number], [place] [address]- 2546 Oct, IMMUNIZATIONS No Known Immunizations SOCIAL HISTORY Never Assessed REASON FOR VISIT Controlled Med Refill 11/10/17 PLAN OF CARE VITAL SIGNS MEDICATIONS Medication [...]
--- OUTSIDE RECORDS SUMMARY | 2018-11-09 13:14 | XMS REPORT ---
Author Author PRABHA HILL [facility] Address [address] [place] [address] Care Team Providers Care Distribution Field Engineer Name Role Phone PRABHA HILL Unavailable PROBLEMS Type Condition ICD9-CM Code IMU43-PV Code Onset Dates Condition Status SNOMED Code Problem Hypernatremia E87.0 Active 22357325 Problem Hallucinations R44.3 Active 8586756 Problem Hypoglycemia E16.2 Active 662986787 Problem Anxiety F41.9 Active 68726747 Problem Dementia in other diseases classified elsewhere without behavioral disturbance F02.80 Active 571695805 Problem Neurogenic orthostatic hypotension G90.3 Active 638047941 Problem Dementia with Lewy bodies G31.83 Active 707908949 Problem Coronary artery disease involving reno-sparks coronary artery of reno-sparks heart without angina pectoris I25.10 Active 6598136357889 Problem Parkinsons disease G20 Active 59562539 Problem Unsteady gait R26.81 Active 72359482 Problem Mixed stress and urge urinary incontinence N39.46 Active 410935120 Problem Episodic cluster headache, not intractable G44.019 Active 051864019 Problem PVD (peripheral vascular disease) I73.9 Active 588794958 Problem 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 Active 212731032 Problem Dysuria R30.0 Active 73915535 Problem Type 2 diabetes mellitus with unspecified complications E11.8 Active 24310922 Problem Neuropathy G62.9 Active 584472282 Problem Polydipsia R63.1 Active 46890722 Problem Essential hypertension I10 Active 09522909 Problem Dysthymia F34.1 Active 99426005 Problem Hypothyroidism (acquired) E03.9 Active 749919575 Problem Hyperlipemia, mixed E78.2 Active 449199630 ALLERGIES Substance Reaction Event Type Date Status Sulfamethoxazole-Trimethoprim Unknown Drug Allergy Sep, Active Protamine Sulfate Unknown Drug Allergy Sep, Active Penicillin V Potassium Unknown Drug Allergy Sep, Active Cipro lowers blood sugar Drug Allergy Sep, Active ENCOUNTERS Encounter Location Date Diagnosis [facility] [id number] [place] [address] 32267- 8213 Jan, Left shoulder pain M25.512 [facility] [id number] [place] [address] 56530- 3870 Dec, Parkinsons disease G20 [facility] [address] 91367- 0182 Dec, Left shoulder pain M25.512 [facility] [address] 72243- 3530 Dec, Type 2 diabetes mellitus with unspecified complications E11.8 ; Anxiety F41.9 ; Therapeutic drug monitoring Z51.81 and Analgesic use Z79.899 [facility] [address] 39613- 7943 November, [facility] [address] 27013- 8291 November, [facility] [address] 17048- 4374 November, Left shoulder pain M25.512 [facility] [address] 14202- 9681 Oct, [facility] [id number] [place] [address] 59137 -0638 Oct, [facility] [id number] [place] [address] 95975- 3930 Oct, Parkinsons disease G20 [facility] [address] 57086 -1240 Oct, Acute cystitis without hematuria N30.00 and Viral upper respiratory tract infection J06.9 [facility] [address] 19453- 8664 Oct, [facility] [address] 10170- 3031 Oct, Type 2 diabetes mellitus with unspecified complications E11.8 [id number] [place] [address] 26222- 6987 Oct, Left shoulder pain M25.512 [facility] [id number] [place] [address] 29995- 6480 Oct, Type 2 diabetes mellitus with unspecified complications E11.8 ; Dysuria R30.0 and Neurogenic orthostatic hypotension G90.3 [place] [facility] [id number] [place] [address] 18502- 1114 Sep, Left shoulder pain M25.512 [facility] [id number] [place] [address] 23350- 0294 Sep, Medicare annual wellness visit, initial Z00.00 ; Parkinsons disease G20 ; Type 2 diabetes mellitus with unspecified complications E11.8 ; Essential hypertension I10 ; Coronary artery disease involving reno-sparks coronary artery of reno-sparks heart without angina pectoris I25.10 ; Hypothyroidism (acquired ) E03.9 ; PVD (peripheral vascular disease) I73.9 ; Dysthymia F34.1 ; Hyperlipemia, mixed E78.2 ; Neuropathy G62.9 ; Encounter for immunization Z23 ; Encounter for other screening for malignant neoplasm of breast Z12.39 and Mixed stress and urge urinary incontinence N39.46 [place] [facility] [id number] [place] [address] 89627- 3587 Aug, Parkinsons disease G20 [place] [facility] [id number] [place] [address] 09021- 9509 Aug, Type 2 diabetes mellitus with unspecified complications E11.8 ; Left shoulder pain M25.512 and Hypotensive episode I95.9 [place] [id number] [place] [address] 81470- 0712 09 Aug, 2017 Coronary artery disease involving reno-sparks coronary artery of reno-sparks heart without angina pectoris I25.10 [place] [facility] [id number] [place] [address] 95836- 9556 Aug, Type 2 diabetes mellitus with unspecified complications E11.8 [place] [id number] [place] [address] 70970- 7455 Jul, Callus of foot L84 [place] [id number] [place] [address] 36457- 0228 Jul, [place] [address] 58721- 0053 Jul, Callus of foot L84 ; Episodic cluster headache, not intractable G44.019 ; Type 2 diabetes mellitus with unspecified complications E11.8 and Parkinsons disease G20 [place] [address] 04295- 1219 Jul, [place] [address] 88316- 3029 Jul, [place] [address] 31490- 6036 Jun, Type 2 diabetes mellitus with unspecified complications E11.8 ; Unsteady gait R26.81 ; Forgetfulness R68.89 and Hallucinations R44.3 [place] [address] 99457- 4152 Jun, [place] [address] 90542- 6886 Jun, Left shoulder pain M25.512 [place] [address] 74919- 7560 May, Hypernatremia E87.0 and Polydipsia R63.1 [place] [address] 10859- 6188 May, Hypernatremia E87.0 and Polydipsia R63.1 [place] [address] 80999- 8155 08 May, 2017 Hypoglycemia E16.2 ; Dysuria R30.0 ; Unsteadiness on feet R26.81 ; Forgetfulness R68.89 ; Type 2 diabetes mellitus with unspecified complications E11.8 and Yeast infection involving the vagina and surrounding area B37.3 [place] [id number] [place] [address] May, Acute cystitis without hematuria N30.00 [facility] [id number] [place] [address] 06496 -2236 Apr, Dysuria R30.0 and Acute cystitis without hematuria N30.00 [facility] [id number] [place] [address] 04662- 9703 05 Apr, 2017 Hypernatremia E87.0 and Polydipsia R63.1 [place] [id number] [place] [address] 17126- 5119 Apr, Vertigo R42 and Type 2 diabetes mellitus with unspecified complications E11.8 [place] [id number] [place] [address] 35886- 2851 Mar, [place] [id number] [place] [address] 54698- 9769 19 Mar, 2017 Left shoulder pain M25.512 [place] [id number] [place] [address] 40631- 2428 13 Mar, 2017 Vertigo R42 [place] [id number] [place] [address] 69871- 0338 Mar, Polydipsia R63.1 [place] [id number] [place] [address] 98368- 5332 Mar, Polydipsia R63.1 [place] [id number] [place] [address] 63558- 3468 Mar, Vertigo R42 [place] [id number] [place] [address] 69564- 6539 07 Mar, 2017 Type 2 diabetes mellitus with unspecified complications E11.8 ; Vertigo R42 ; Polydipsia R63.1 ; Polyuria R35.8 ; Hypothyroidism ( acquired) E03.9 ; Abnormal urinalysis R82.90 and Dysthymia F34.1 [facility] [address] 39214- 3231 05 Mar, 2017 Coronary artery disease of reno-sparks artery with stable angina pectoris, unspecified whether reno-sparks or transplanted heart I25.118 ; Systolic CHF, chronic I50.22 ; Hyperlipemia, mixed E78.2 and Essential hypertension I10 [facility] [address] [id number] Feb, Dental caries K02.9 [place] [address] 16866- 6573 Feb, Type 2 diabetes mellitus with diabetic neuropathy, unspecified E11.40 [place] [address] 84886- 7102 Dec, Left shoulder pain M25.512 [facility] [address] 54340- 1942 Dec, [facility] [address] 87575- 1485 Dec, Type 2 diabetes mellitus with unspecified complications E11.8 [facility] [address] [id number] Dec, Dental examination Z01.20 [facility] [address] 39984- 0887 Dec, Type 2 diabetes mellitus with diabetic neuropathy, unspecified E11.40 [facility] [address] 27270- 8537 Dec, [facility] [address] 03929- 6692 Dec, Type 2 diabetes mellitus with diabetic neuropathy, unspecified E11.40 [facility] [address] 16918- 2480 November, Left shoulder pain M25.512 [place] [id number] [place] [address] 46071- 7649 November, [place] [address] 76040- 8932 November, Type 2 diabetes mellitus with unspecified complications E11.8 and Dysuria R30.0 [place] [address] 19013- 9217 Oct, Left shoulder pain M25.512 [place] [id number] [place] [address] 53827- 7301 Sep, Left shoulder pain M25.512 [place] [address] 13124- 4714 Sep, Pre-op testing Z01.818 [place] [id number] [place] [address] 09913- 3021 Sep, Pre-op testing Z01.818 [place] [id number] [place] [address] 85977- 3993 Sep, Pre-op testing Z01.818 [place] [id number] [place] [address] 95735- 8520 Sep, Pre-op testing Z01.818 and Mouth pain K13.79 [place] [id number] [place] [address] 34307- 9782 Sep, Left shoulder pain M25.512 [place] [id number] [place] [address] 46293- 4778 Aug, Other eczema L30.8 [place] [address] 68251- 0724 06 Aug, 2016 PVD (peripheral vascular disease) I73.9 ; Type 2 diabetes mellitus with unspecified complications E11.8 ; Acute cystitis with hematuria N30.01 ; Other eczema L30.8 ; Dysuria R30.0 and Left shoulder pain M25.512 [facility] [id number] [place] [address] 97258 -0310 23 Jul, 2016 Otalgia of right ear H92.01 and Blood in ear canal, right H92.21 [place] [id number] [place] [address] 22115- 4541 Jul, Arthralgia, unspecified joint M25.50 ; PVD (peripheral vascular disease) I73.9 and Neuropathy G62.9 [place] [address] 71275- 4029 Jul, [place] [address] 21671- 8636 Jun, Medicare annual wellness visit, initial Z00.00 ; Cervicalgia M54.2 ; Radiculopathy of cervical region M54.12 ; Encounter for immunization Z23 ; Type 2 diabetes mellitus with unspecified complications E11.8 and Essential hypertension I10 [place] [address] 00909- 2482 Jun, [place] [address] 81745- 4687 14 May, 2016 Hypothyroidism (acquired) E03.9 [place] [id number] [place] [address] 20556- 5814 10 May, 2016 Dysuria R30.0 ; Essential hypertension I10 ; Hypothyroidism (acquired) E03.9 and PVD (peripheral vascular disease) I73.9 [facility] [id number] [place] [address] 08660 -2207 03 May, 2016 Burning with urination R30.0 and Acute cystitis with hematuria N30.01 [place] [address] 15535- 3549 May, Dental examination Z01.20 [place] [address] 45471- 6529 May, Hypothyroidism (acquired) E03.9 [place] [address] [address]- 6419 Feb, [place] [id number] [place] [address] 67290- 6228 Feb, 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 ; PVD ( peripheral vascular disease) I73.9 ; Type 2 diabetes mellitus with unspecified complications E11.8 and Essential hypertension I10 [place] [id number] [place] [address] 44458- 7691 Jan, [place] [id number] [place] [address] 22365- 2989 Jan, Hypothyroidism (acquired) E03.9 [place] [id number] [place] [address] 41275- 7752 Jan, [place] [id number] [place] [address] 69589- 7531 Jan, [place] [address] [place] [address] 53619- 8439 Jan, Type 2 diabetes mellitus with unspecified complications E11.8 ; 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 and Essential ( primary) hypertension I10 [place] [address] [address]- 2070 Jan, Type 2 diabetes mellitus with unspecified complications E11.8 ; 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 ; Essential hypertension I10 and PVD (peripheral vascular disease) I73.9 [place] [address] [address]- 2543 Jan, [place] [id number] [place] [address] 91486- 1194 Jan, [place] [address] [address]- 6912 Jan, [place] [address] [address]- 8045 Jan, Weakness R53.1 ; Fatigue, unspecified type R53.83 ; PVD ( peripheral vascular disease) I73.9 ; Acute osteomyelitis of other site M86.18 ; Type 2 diabetes mellitus with diabetic neuropathy, unspecified E11.40 and 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 [place] [id number] [place] [address] 30363- 3508 30 Dec, 2015 [place] [address] 54108- 6443 Dec, Type 2 diabetes mellitus with unspecified complications E11.8 [place] [address] 61812- 8083 Dec, [place] [address] 97137- 9518 Dec, Pressure ulcer, unspecified pressure ulcer stage L89.90 and Type 2 diabetes mellitus with unspecified complications E11.8 [facility] [address] 12596 -3731 Dec, Toe infection L08.9 [place] [address] 02573- 2898 November, Dental caries K02.9 [place] [id number] [place] [address] 19284- 2493 November, [facility] [id number] [place] [address] 52204- 9435 November, Dental examination Z01.20 [place] [address] 69294- 6927 Sep, Lipoma of torso D17.1 and Thoracic neuritis M54.14 [place] [address] 29981- 7972 Sep, [place] [id number] [place] [address] 53409- 9864 Aug, [facility] [address] [place] [address] -9198 Jul, Dysuria R30.0 and UTI (urinary tract infection) N39.0 [place] [id number] [place] [address] 15960- 7732 Jun, Left shoulder pain M25.512 [place] [id number] [place] [address] 74361- 6889 May, Shoulder pain, left M25.512 [place] [id number] [place] [address] 32747- 8669 May, [place] [address] 58221- 9382 May, [place] [id number] [place] [address] 43432- 3990 May, Left shoulder pain M25.512 [place] [address] 88526- 5256 May, [place] [id number] [place] [address] 01413- 7716 Apr, Encounter for immunization Z23 [place] [id number] [place] [address] 62306- 5035 08 Apr, 2015 Urinary tract infection, site not specified N39.0 ; Hypotension, unspecified I95.9 ; Type 2 diabetes mellitus with unspecified complications E11.8 and Generalized edema R60.1 [place] [id number] [place] [address] 83952- 5280 Apr, [place] [id number] [place] [address] 48132- 5852 Mar, Diabetes with other specified manifestations, type II or unspecified type, not stated as uncontrolled 250.80 [place] [id number] [place] [address] 97843- 0684 Feb, Gout 274.9 and Diabetes 250.00 [place] [id number] [place] [address] 12322- 8902 Jan, [facility] [address] [facility] [id number] [address]- 9254 November, CAD (coronary artery disease) 414.00 and CHF (congestive heart failure) 428.0 [facility] [address] [id number] [address]- 0662 Oct, [facility] [address] [id number] [address]- 6724 Oct, [facility] [address] [id number][place] [address]- 6573 Oct, [facility] [address] [id number] [address]- 8364 Sep, [facility] [address] [facility] [id number] [address]- 0338 Sep, [facility] [address] [id number], [place] [address]- 1950 Sep, [facility] [address] [facility] [id number] [address]- 1262 Sep, [facility] [id number] [address]- 0376 Aug, [facility] [id number] [address]- 2224 Aug, [facility] [address] [id number][place] [address]- 3189 Aug, [facility] [address] [id number][place] [address]- 0281 Aug, [facility] [address] [id number][place] [address]- 4436 Aug, [facility] [address] [facility] [id number][place] [address]- 1816 Aug, [facility] [address] [facility] [id number] [place] [address]- 6477 Aug, [facility] [address] [id number] [place] [address]- 1004 Aug, [facility] [place] [facility] [address] [id number] [place] [address]- 1627 Jul, [facility] [place] [facility] [address] [id number] [place] [address]- 9836 Jul, [facility] [place] [facility] [address] [id number] [place] [address]- 9324 Jul, [facility] [place] [facility] [address] [id number] [place] [address]- 3465 Jul, [facility] [place] [facility] [address] [id number] [place] [address]- 8205 Jul, [facility] [place] [facility] [address] [id number] [place] [address]- 0231 Jul, [facility] [place] [facility] [address] [id number] [place] [address]- 7820 Jul, [facility] [place] [facility] [address] [id number] [place] [address]- 5464 Jul, [facility] [place] [facility] [address] [facility] [id number] [place] [address]- 0538 Jul, [facility] [place] [facility] [address] [id number] [place] [address]- 6394 Jul, [facility] [place] [facility] [address] [id number] [place] [address]- 8424 Jun, [facility] [place] [facility] [address] [id number] [place] 7099 Jun, [facility] [place] [facility] [address] [id number] [place] [address]- 7455 Jun, [facility] [place] [facility] [address] [id number] [place] Jun, [facility] [place] [facility] [address] [id number] [place] [address]- 2621 Jun, [facility] [place] [facility] [address] [id number] [place] 1456 Jun, [facility] [place] [facility] [address] [id number] [place] [address]- 9361 Jun, [facility] [place] [facility] [address] [id number] [place] [address]- 4267 Jun, [facility] [place] [facility] [address] [id number] [place] [address]- 3708 Jun, [facility] [place] [facility] [address] [id number] [place] [address]- 3988 Jun, [facility] [place] [facility] [address] [id number] [place] [address]- 9903 May, [facility] [place] [facility] [address] [id number] [place] [address]- 6785 May, [facility] [place] [facility] [address] [id number] [place] [address]- 7176 Mar, [facility] [place] [facility] [address] [id number] [place] [address]- 9271 Mar, [facility] [place] [facility] [address] [id number] [place] [address]- 9356 Mar, [facility] [place] [facility] [address] [id number] [place] [address]- 6357 Mar, [facility] [place] [facility] [address] [id number] [place] [address]- 2637 Feb, [facility] [place] [facility] [address] [id number] [place] [address]- 3223 Feb, [facility] [place] [facility] [address] [id number] [place] [address]- 4137 Feb, [facility] [place] [facility] [address] [id number] [place] [address]- 2434 Jan, [facility] [place] [facility] [address] [id number] [address]- 5841 Jan, [facility] [place] [facility] [address] [id number] [place] [address]- 1553 Jan, [facility] [place] [facility] [address] [id number] [place] [address]- 1595 Jan, [facility] [place] [facility] [address] [id number] [place] [address]- 3565 Jan, [facility] [place] [facility] [address] [id number] [place] [address]- 1902 Jan, [facility] [place] [facility] [address] [id number] [place] [address] Jan, [facility] [place] [facility] [address] [id number] [place] [address] Jan, [facility] [place] [facility] [address] [id number] [place] [address] Jan, [facility] [place] [facility] [address] [id number] [place] [address] Jan, [facility] [place] [facility] [address] [id number] [place] [address] Dec, [facility] [place] [facility] [address] [id number] [place] [address] Dec, [facility] [place] [facility] [address] [id number] [place] [address] November, [facility] [place] [facility] [address] [id number] [place] [address] November, [facility] [place] [facility] [address] [id number] [place] [address] November, [facility] [place] [facility] [address] [id number] [place] [address] November, [facility] [place] [facility] [address] [id number] [place] [address] November, [facility] [address] [id number] [place] [address] November, [facility] [place] [facility] [address] [id number] [place] [address] November, [facility] [address] [id number] [place] [address] Oct, [facility] [address] [id number] [place] [address] Oct, [facility] [address] [id number] [place] [address] Sep, [facility] [address] [id number] [place] [address] Sep, [facility] [address] [address] [id number] [place] [address] Sep, [facility] [address] [id number] [place] [address] Sep, [facility] [address] [id number] [place] [address] 7843 Sep, [facility] [address] [id number] [place] [address] 9410 Sep, [facility] [place] [facility] [address] [id number] [place] [address] 8530 Sep, [facility] [place] [facility] [address] [id number] [place] [address] 4408 Sep, [facility] [place] [facility] [address] [id number] [place] [address] 2806 Sep, [facility] [place] [facility] [address] [id number] [place] [address] 5846 Sep, [facility] [place] [facility] [address] [id number] [place] [address] 4[address] Aug, [facility] [place] [facility] [address] [id number] [place] [address]00 Aug, [facility] [place] [facility] [address] [id number] [place] [address] 9390 Jul, [facility] [place] [facility] [address] [id number] [place] [address]- 6765 Jul, [facility] [place] [facility] [address] [id number] [place] [address] 6889 Jul, [facility] [place] [facility] [address] [id number] [place] [address] 1541 Jul, [facility] [place] [facility] [address] [id number] [place] [address]- 7582 Jul, [facility] [place] [facility] [address] [id number] [place] [address]- 9066 Jul, [facility] [place] [facility] [address] [id number] [address] Jun, [facility] [place] [facility] [address] [id number] [place] [address] 6142 Jun, [facility] [place] [facility] [address] [id number], [place] [address] 1451 Jun, [facility] [place] [facility] [address] [id number], [place] [address] 3597 Jun, [facility] [place] [facility] [address] [id number][place] [address] May, [facility] [place] [facility] [address] [id number] [place] [address]- 1689 May, [facility] [place] [facility] [address] [id number][place] [address] 0039 May, [facility] [place] [facility] [address] [id number][place] [address] 2750 May, [facility] [place] [facility] [address] [id number] [place] [address]- 0466 May, [facility] [place] [facility] [address] [id number] [place] [address]- 7730 Apr, [facility] [place] [facility] [address] [id number] [place] [address] Apr, [facility] [place] [facility] [address] [id number] [place] [address]- 1053 Apr, [facility] [place] [facility] [address] [id number] [place] [address]- 6649 Apr, [facility] [place] [facility] [address] [id number] [place] [address] Apr, [facility] [place] [facility] [address] [id number] [place] [address] 4943 Apr, [facility] [place] [facility] [address] [id number] [place] [address]- 0463 Apr, [facility] [place] [facility] [address] [id number] [place] [address]- 1873 Apr, [facility] [place] [facility] [address] [id number] [place] [address]- 4637 Apr, [facility] [place] [facility] [address] [id number] [place] [address]- 0518 Apr, [facility] [place] [facility] [address] [id number] [place] [address]- 1188 Apr, [facility] [place] [facility] [address] [id number] [place] [address]- 2522 Apr, [facility] [place] [facility] [address] [id number] [place] [address]- 8881 Mar, [facility] [place] [facility] [address] [id number] [place] [address] Mar, [facility] [place] [facility] [address] [id number] [place] [address]- 7105 Feb, [facility] [place] [facility] [address] [id number] [place] [address] 3168 Jan, [facility] [place] [facility] [address] [id number] [place] [address]- 0809 Jan, [facility] [place] [facility] [address] [id number] [place] [address]- 6670 Jan, [facility] [place] [facility] [address] [id number] [place] [address]- 3713 Jan, [facility] [place] [facility] [address] [id number] [place] [address]- 6379 Dec, [facility] [place] [facility] [address] [id number] [place] [address]- 0648 Dec, [facility] [place] [facility] [address] [id number] [place] [address]- 7780 Dec, [facility] [place] [facility] [address] [id number] [place] [address]- 7903 Dec, [facility] [place] [facility] [address] [id number] [place] [address]- 8380 Dec, [facility] [place] [facility] [address] [id number] [place] [address]- 0189 Dec, [facility] [place] [facility] [address] [id number] [place] [address]- 9590 Dec, [facility] [place] [facility] [address] [id number] [place] [address]- 5291 November, [facility] [place] [facility] [address] [id number] [place] [address]- 0527 November, [facility] [place] [facility] [address] [id number] [place] [address]- 0352 November, [facility] [place] [facility] [address] [id number] [place] [address] 9139 Oct, [facility] [place] [facility] [address] [id number] [place] [address]- 6366 Oct, [facility] [address] [id number] [place] [address]- 0505 Oct, [facility] [place] [facility] [address] [id number] [place] [address]- 0899 Oct, [facility] [place] [facility] [address] [facility] [id number] [place] [address]- 2116 Oct, [facility] [place] [facility] [address] [id number] [place] [address]- 8797 Sep, [facility] [address] [id number] [place] [address]- 2660 Sep, [facility] [address] [id number] [place] [address]- 3107 Sep, [facility] [address] [id number] [place] [address]- 4189 Sep, [facility] [place] [facility] [address] [id number] [place] [address]- 8612 Aug, [facility] [address] [id number] [place] [address]- 6122 Aug, [facility] [place] [facility] [address] [id number] [place] [address]- 5830 Aug, [facility] [address] [id number] [place] [address]- 6229 Aug, [facility] [place] [facility] [address] [id number] [place] [address]- 5057 Jul, [facility] [place] [facility] [address] [id number] [place] [address]- 2178 Jul, [facility] [place] [facility] [address] [id number] [place] [address]- 2628 Jun, [facility] [place] [facility] [address] [facility] [id number] [place] [address]- 5792 Jun, [facility] [place] [facility] [address] [id number] [place] [address]- 6130 Jun, [facility] [place] [facility] [address] [id number] [place] Jun, [facility] [place] [facility] [address] [id number] [place] [address]- 3770 May, [facility] [place] [facility] [address] [id number] [place] [address]- 8011 May, [facility] [place] [facility] [address] [id number] [place] [address]- 9328 May, [facility] [place] [facility] [address] [id number] [place] [address] May, [facility] [place] [facility] [address] [facility] [id number] [place] [address]- 7639 Apr, [facility] [place] [facility] [address] [id number] [place] [address]- 4371 Apr, [facility] [place] [facility] [address] [id number] [place] [address]- 1466 Apr, [facility] [place] [facility] [address] [id number] [place] [address]- 8657 Apr, [facility] [place] [facility] [address] [facility] [id number] [place] [address]- 6837 30 Apr, 2012 [facility] [place] [facility] [address] [id number] [place] [address]- 2497 30 Apr, 2012 [facility] [place] [facility] [address] [id number] [place] [address]- 9484 Apr, [facility] [place] [facility] [address] [id number] [place] [address]- 1356 Apr, [facility] [place] [facility] [address] [facility] [id number] [place] [address]- 7576 Apr, [facility] [place] [facility] [address] [id number] [place] [address]- 1898 Apr, [facility] [place] [facility] [address] [id number] [place] [address]- 5597 Feb, [facility] [place] [facility] [address] [id number] [place] [address]- 2551 Feb, [facility] [place] [facility] [address] [id number] [place] [address]- 3089 Jan, [facility] [place] [facility] [address] [id number] [place] [address]- 1241 Jan, [facility] [place] [facility] [address] [id number] [place] [address]- 0901 Jan, [facility] [place] [facility] [address] [id number] [place] [address]- 1466 Jan, [facility] [place] [facility] [address] [id number] [place] [address]- 1909 Jan, [facility] [place] [facility] [address] [id number] [place] [address]- 4509 Jan, [facility] [place] [facility] [address] [id number] [place] [address]- 5629 Dec, [facility] [place] [facility] [address] [id number] [place] [address]- 1469 November, [facility] [place] [facility] [address] [id number] [place] [address]- 4453 November, [facility] [place] [facility] [address] [id number] [place] [address]- 4146 November, [facility] [place] [facility] [address] [id number] [place] [address]- 6058 Sep, [facility] [place] [facility] [address] [id number] [place] [address]- 5369 Sep, [facility] [place] [facility] [address] [id number] [place] [address]- 4088 Sep, [facility] [place] [facility] [address] [id number] [place] [address]- 3269 08 Sep, 2011 [facility] [address] [id number] [place] [address]- 5173 07 Sep, 2011 [facility] [place] [facility] [address] [id number] [place] [address]- 3206 07 Sep, 2011 [facility] [address] [id number] [place] [address]- 9916 13 Aug, 2011 [facility] [place] [facility] [address] [id number] [place] [address]- 7658 10 Aug, 2011 [facility] [address] [id number] [place] [address]- 4193 Aug, [facility] [place] [facility] [address] [id number] [place] [address]- 2437 Jul, [facility] [address] [id number] [place] [address]- 6730 Jul, [facility] [address] [id number] [place] [address]- 3662 Jul, [facility] [address] [id number] [place] [address]- 2729 Jul, [facility] [address] [id number] [place] [address]- 1228 Jun, [facility] [place] [facility] [address] [id number] [place] [address]- 2996 Jun, [facility] [place] [facility] [address] [id number] [place] [address]- 4866 Jun, [facility] [place] [facility] [address] [id number] [place] [address]- 8831 Jun, [facility] [place] [facility] [address] [id number] [place] [address]- 1826 Jun, [facility] [place] [facility] [address] [id number] [place] [address]- 4948 Jun, [facility] [place] [facility] [address] [id number] [place] [address]- 7534 May, [facility] [place] [facility] [address] [id number] [place] [address]- 0756 May, [facility] [place] [facility] [address] [id number] [place] [address]- 7674 May, [facility] [place] [facility] [address] [id number] [place] [address]- 8856 Apr, [facility] [place] [facility] [address] [id number] [place] [address]- 2077 Jan, [facility] [place] [facility] [address] [id number] [place] [address]- 9944 Jun, [facility] [place] [facility] [address] [id number] [place] [address]- 9504 Jun, [facility] [place] [facility] [address] [id number] [place] [address]- 8469 15 Jun, 2010 [facility] [place] [facility] [address] [id number] [place] [address]- 8834 15 Jun, 2010 [facility] [place] [facility] [address] [id number] [place] [address]- 9735 15 Jun, 2010 [facility] [place] [facility] [address] [id number] [place] [address]- 8282 13 Jun, 2010 [facility] [place] [facility] [address] [id number] [address]- 7188 Jun, [facility] [place] [facility] [address] [id number] [place] [address]- 7732 Apr, [facility] [place] [facility] [address] [id number] [place] [address]- 9106 Feb, [facility] [place] [facility] [address] [id number] [address] 15 Aug, 2009 [facility] [place] [facility] [address] [id number], [place] [address]- 6290 18 Jul, 2009 [facility] [address] [id number] [place] [address]- 3227 11 Jul, 2009 [facility] [place] [facility] [address] [facility] [id number], [place] [address]- 4825 29 Jun, 2009 [facility] [address] [facility] [id number] [place] [address]- 4476 Jun, [facility] [place] [facility] [address] [id number], [place] [address]- 9067 28 Jun, 2009 [facility] [address] [facility] [id number] [place] [address]- 1138 Jun, [facility] [place] [facility] [address] [facility] [id number] [place] [address]- 1553 16 Jun, 2009 [facility] [address] [facility] [id number], [place] [address]- 7966 Jun, [facility] [place] [facility] [address] [facility] [id number], [place] [address]- 5178 Jun, [facility] [address] [facility] [id number][place] [address]- 1580 30 May, 2009 [facility] [place] [facility] [address] [facility] [id number], [place] [address]- 3078 27 May, 2009 [facility] [place] [facility] [address] [facility] [id number][place] [address]- 6701 23 May, 2009 [facility] [place] [facility] [address] [facility] [id number][place] [address]- 7384 18 May, 2009 [facility] [place] [facility] [address] [facility] [id number][place] [address]- 6393 18 May, 2009 [facility] [place] [facility] [address] [facility] [id number], [place] [address]- 5828 16 May, 2009 [facility] [place] [facility] [address] [facility] [id number], [place] [address]- 9588 May, [facility] [place] [facility] [address] [facility] [id number] [place] [address]- 2546 Apr, [facility] [address] [facility] [id number], [place] [address] 2546 Apr, [facility] [address] [facility] [id number][place] [address]- 2546 Jan, [facility] [address] [facility] [id number][place] [address]- 2546 Oct, IMMUNIZATIONS Vaccine Route Administration Date Status TDAP (BOOSTRIX) IM Intramuscular October 05, 2017 Administered PPSV23 (PNEUMOVAX) IM Intramuscular October 05, 2017 Administered SOCIAL HISTORY Never Assessed REASON FOR VISIT Medicare AWV - Initial Visit--[place] PLAN OF CARE Activity Details Follow Up 1 Year Reason:Subsequent-MAWV VITAL SIGNS Height 62 in 2017-10-05 Weight 186.6 lbs 2017-10-05 Temperature 97.8 degrees Fahrenheit 2017-10-05 Heart Rate 64 bpm 2017-10-05 Respiratory Rate 18 2017-10-05 BMI 34.13 kg/m2 2017-10-05 Blood pressure systolic 96 mmHg 2017-10-05 Blood pressure diastolic 60 mmHg 2017-10-05 MEDICATIONS Medication Instructions Dosage Frequency Start Date End Date Duration Status Fenofibric Acid 135 MG Orally Once a day 1 capsule 24h Active Tramadol HCl 50 MG Orally 2 times a day 1 tablet as needed 12h Active Citalopram Hydrobromide 20 mg Orally Once a day 1.5 tablets 24h 90 days Active Zontivity 2.08 MG Orally Once a day 1 tablet 24h Active Clopidogrel Bisulfate 75 MG Orally Once a day 1 tablet 24h 30 Active Levothyroxine Sodium 25 MCG Orally Once a day 1 tablet on an empty stomach in the morning 24h 30 Active Tresiba FlexTouch 200 UNIT/ML Subcutaneous once a day Inject 14 unitsin AM rather than PM 24h Jan, 90 Active Trutest Blood Glucose Test Strip N/A subcutaneously 6 times a day. E11.40 test blood sugar Dec, Active Fish Oil 1000 MG Orally 2 times a day 1 capsule 12h Active Vitamin D-3 Active Carvedilol 3.125 MG Orally 2 times a day 1 tablet 12h Active Betamethasone Dipropionate Aug 0.05 % Externally 2 times a day 1 application to affected area 12h 08 Aug, 2016 Active BD Pen Needle Mini U/F 31G [...] a day 1 tablet at bedtime 24h 10 Jul, 2017 Active RESULTS Name Result Date Reference Range Mammogram, Bilateral Screening 2017-10-08 PROCEDURES Procedure Date Ordered Result Body Site ANNUAL SLICK VST; PERSNL PPS INIT October 05, 2017 FALL RISK ASSESSMENT DOCD October 05, 2017 IMMUNIZATION ADMIN, EACH ADD (please include units) October 05, 2017 SINGLE IMMUNIZATION ADMIN October 05, 2017 TDAP (BOOSTRIX) October 05, 2017 PT TOBACCO SCREEN RCVD TLK October 05, 2017 ADMN PNEUMCOC VAC NO FEE SCHED DAY October 05, 2017 PPSV23 (PNEUMOVAX) October 05, 2017 INSTRUCTIONS MEDICATIONS ADMINISTERED No Known Medications [...]
--- OUTSIDE RECORDS SUMMARY | 2018-11-09 13:15 | XMS REPORT ---
Author Author PRABHA HILL [facility] Address [address] [place] [address] Care Team Providers Care Rn Urgent Care Name Role Phone PRABHA HILL Unavailable PROBLEMS Type Condition ICD9-CM Code LUJ50-VW Code Onset Dates Condition Status SNOMED Code Problem Hypernatremia E87.0 Active 42535754 Problem Hallucinations R44.3 Active 0848998 Problem Hypoglycemia E16.2 Active 922045198 Problem Anxiety F41.9 Active 71967635 Problem Dementia in other diseases classified elsewhere without behavioral disturbance F02.80 Active 553882603 Problem Neurogenic orthostatic hypotension G90.3 Active 793115239 Problem Dementia with Lewy bodies G31.83 Active 446730855 Problem Coronary artery disease involving [place] coronary artery of [place] heart without angina pectoris I25.10 Active 0656291599692 Problem Parkinsons disease G20 Active 06302767 Problem Unsteady gait R26.81 Active 01659107 Problem Mixed stress and urge urinary incontinence N39.46 Active 352236096 Problem Episodic cluster headache, not intractable G44.019 Active 597118306 Problem PVD (peripheral vascular disease) I73.9 Active 142195614 Problem 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 Active 267406242 Problem Dysuria R30.0 Active 59882785 Problem Type 2 diabetes mellitus with unspecified complications E11.8 Active 95079155 Problem Neuropathy G62.9 Active 908346258 Problem Polydipsia R63.1 Active 16875318 Problem Essential hypertension I10 Active 93304078 Problem Dysthymia F34.1 Active 76558259 Problem Hypothyroidism (acquired) E03.9 Active 917537337 Problem Hyperlipemia, mixed E78.2 Active 043413458 ALLERGIES No Information ENCOUNTERS Encounter Location Date Diagnosis [facility] [address] [facility] [id number] [address] Jan, Left shoulder pain M25.512 [facility] [id number] [place] [address] 40041- 2254 Dec, Parkinsons disease G20 [facility] [id number] [place] [address] 87890- 1528 08 Dec, 2017 Left shoulder pain M25.512 [facility] [id number] [place] [address] 51580- 2174 Dec, Type 2 diabetes mellitus with unspecified complications E11.8 ; Anxiety F41.9 ; Therapeutic drug monitoring Z51.81 and Analgesic use Z79.899 [facility] [id number] [place] [address] 61118- 9704 November, [facility] [address] 52653- 3153 November, [facility] [id number] [place] [address] 46725- 2708 November, Left shoulder pain M25.512 [facility] [id number] [place] [address] 00692- 6647 Oct, [facility] [id number] [place] [address] 30378 -6324 Oct, [facility] [id number] [place] [address] 79567- 2918 Oct, Parkinsons disease G20 [facility] [id number] [place] [address] 08273 -8941 18 Oct, 2017 Acute cystitis without hematuria N30.00 and Viral upper respiratory tract infection J06.9 [facility] [id number] [place] [address] 95695- 4643 Oct, [facility] [id number] [place] [address] 83769- 6347 Oct, Type 2 diabetes mellitus with unspecified complications E11.8 [facility] [id number] [place] [address] 34058- 8220 Oct, Left shoulder pain M25.512 [place] [id number] [place] [address] 02369- 8506 Oct, Type 2 diabetes mellitus with unspecified complications E11.8 ; Dysuria R30.0 and Neurogenic orthostatic hypotension G90.3 [place] [address] 53200- 2955 Sep, Left shoulder pain M25.512 [place] [address] 65040- 8314 Sep, Medicare annual wellness visit, initial Z00.00 ; Parkinsons disease G20 ; Type 2 diabetes mellitus with unspecified complications E11.8 ; Essential hypertension I10 ; Coronary artery disease involving [place] coronary artery of [place] heart without angina pectoris I25.10 ; Hypothyroidism (acquired ) E03.9 ; PVD (peripheral vascular disease) I73.9 ; Dysthymia F34.1 ; Hyperlipemia, mixed E78.2 ; Neuropathy G62.9 ; Encounter for immunization Z23 ; Encounter for other screening for malignant neoplasm of breast Z12.39 and Mixed stress and urge urinary incontinence N39.46 [place] [address] 78844- 0467 Aug, Parkinsons disease G20 [place] [id number] [place] [address] 05048- 0725 21 Aug, 2017 Type 2 diabetes mellitus with unspecified complications E11.8 ; Left shoulder pain M25.512 and Hypotensive episode I95.9 [place] [id number] [place] [address] 57121- 2296 09 Aug, 2017 Coronary artery disease involving [place] coronary artery of [place] heart without angina pectoris I25.10 [place] [id number] [place] [address] 69791- 3056 07 Aug, 2017 Type 2 diabetes mellitus with unspecified complications E11.8 [place] [id number] [place] [address] 86876- 9583 Jul, Callus of foot L84 [place] [id number] [place] [address] 03791- 5075 Jul, [place] [address] 72890- 8453 Jul, Callus of foot L84 ; Episodic cluster headache, not intractable G44.019 ; Type 2 diabetes mellitus with unspecified complications E11.8 and Parkinsons disease G20 [place] [address] 59906- 8269 Jul, [place] [id number] [place] [address] 17868- 3926 Jul, [place] [id number] [place] [address] 65941- 4571 Jun, Type 2 diabetes mellitus with unspecified complications E11.8 ; Unsteady gait R26.81 ; Forgetfulness R68.89 and Hallucinations R44.3 [place] [id number] [place] [address] 95170- 3628 Jun, [place] [id number] [place] [address] 95290- 2199 Jun, Left shoulder pain M25.512 [place] [id number] [place] [address] 24204- 9154 May, Hypernatremia E87.0 and Polydipsia R63.1 [place] [id number] [place] [address] 76080- 5986 May, Hypernatremia E87.0 and Polydipsia R63.1 [place] [id number] [place] [address] 93564- 1433 May, Hypoglycemia E16.2 ; Dysuria R30.0 ; Unsteadiness on feet R26.81 ; Forgetfulness R68.89 ; Type 2 diabetes mellitus with unspecified complications E11.8 and Yeast infection involving the vagina and surrounding area B37.3 [place] [id number] [place] [address] 65370- 4246 May, Acute cystitis without hematuria N30.00 [facility] [id number] [place] [address] 79582 -1911 28 Apr, 2017 Dysuria R30.0 and Acute cystitis without hematuria N30.00 [facility] [address] 30736- 7756 05 Apr, 2017 Hypernatremia E87.0 and Polydipsia R63.1 [facility] [address] 68660- 1250 02 Apr, 2017 Vertigo R42 and Type 2 diabetes mellitus with unspecified complications E11.8 [place] [address] 489303- 1499 20 Mar, 2017 [place] [address] 43812- 3244 19 Mar, 2017 Left shoulder pain M25.512 [place] [address] 03670- 4995 13 Mar, 2017 Vertigo R42 [place] [address] 50960- 8126 12 Mar, 2017 Polydipsia R63.1 [place] [address] 80846- 8580 12 Mar, 2017 Polydipsia R63.1 [place] [address] 06487- 1825 11 Mar, 2017 Vertigo R42 [place] [address] 29693- 2358 07 Mar, 2017 Type 2 diabetes mellitus with unspecified complications E11.8 ; Vertigo R42 ; Polydipsia R63.1 ; Polyuria R35.8 ; Hypothyroidism ( acquired) E03.9 ; Abnormal urinalysis R82.90 and Dysthymia F34.1 [place] [address] 41358- 7432 Mar, Coronary artery disease of [place] artery with stable angina pectoris, unspecified whether [place] or transplanted heart I25.118 ; Systolic CHF, chronic I50.22 ; Hyperlipemia, mixed E78.2 and Essential hypertension I10 [facility] [id number] [place] [address] [id number] Feb, Dental caries K02.9 [facility] [address] 35925- 6790 Feb, Type 2 diabetes mellitus with diabetic neuropathy, unspecified E11.40 [facility] [id number] [place] [address] 11334- 4032 Dec, Left shoulder pain M25.512 [facility] [id number] [place] [address] 46192- 7586 Dec, [facility] [address] 25090- 6112 Dec, Type 2 diabetes mellitus with unspecified complications E11.8 [facility] [id number] [place] [address] [id number] Dec, Dental examination Z01.20 [facility] [id number] [place] [address] 47909- 5267 Dec, Type 2 diabetes mellitus with diabetic neuropathy, unspecified E11.40 [facility] [id number] [place] [address] 61964- 9398 Dec, [facility] [address] 06350- 4364 Dec, Type 2 diabetes mellitus with diabetic neuropathy, unspecified E11.40 [facility] [id number] [place] [address] 63846- 1134 November, Left shoulder pain M25.512 [facility] [id number] [place] [address] 25877- 9639 November, [facility] [address] 17245- 0516 November, Type 2 diabetes mellitus with unspecified complications E11.8 and Dysuria R30.0 [place] [id number] [place] [address] 7551 Oct, Left shoulder pain M25.512 [place] [id number] [place] [address] 19420- 7504 Sep, Left shoulder pain M25.512 [facility] [address] 47205- 3059 Sep, Pre-op testing Z01.818 [place] [address] 7821 Sep, Pre-op testing Z01.818 [place] [id number] [place] [address] 31390- 5324 Sep, Pre-op testing Z01.818 [place] [address] 13742- 4339 Sep, Pre-op testing Z01.818 and Mouth pain K13.79 [place] [address] 75328- 7639 Sep, Left shoulder pain M25.512 [place] [id number] [place] [address] 68125- 0041 Aug, Other eczema L30.8 [facility] [address] 89512- 1616 Aug, PVD (peripheral vascular disease) I73.9 ; Type 2 diabetes mellitus with unspecified complications E11.8 ; Acute cystitis with hematuria N30.01 ; Other eczema L30.8 ; Dysuria R30.0 and Left shoulder pain M25.512 [facility] [id number] [place] [address] 67243 -1055 Jul, Otalgia of right ear H92.01 and Blood in ear canal, right H92.21 [facility] [id number] [place] [address] 57792- 1137 Jul, Arthralgia, unspecified joint M25.50 ; PVD (peripheral vascular disease) I73.9 and Neuropathy G62.9 [place] [id number] [place] [address] 01945- 1394 Jul, [place] [address] 89980- 5080 Jun, Medicare annual wellness visit, initial Z00.00 ; Cervicalgia M54.2 ; Radiculopathy of cervical region M54.12 ; Encounter for immunization Z23 ; Type 2 diabetes mellitus with unspecified complications E11.8 and Essential hypertension I10 [place] [address] 10258- 1233 Jun, [place] [address] 01080- 0159 May, Hypothyroidism (acquired) E03.9 [place] [id number] [place] [address] 02774- 7715 May, Dysuria R30.0 ; Essential hypertension I10 ; Hypothyroidism (acquired) E03.9 and PVD (peripheral vascular disease) I73.9 [facility] [id number] [place] [address] 90275 -9861 May, Burning with urination R30.0 and Acute cystitis with hematuria N30.01 [place] [id number] [place] [address] 56024- 3102 May, Dental examination Z01.20 [place] [address] 82548- 8431 May, Hypothyroidism (acquired) E03.9 [place] [id number] [place] [address] 59324- 6336 Feb, [facility] [address] 82916- 3789 Feb, 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 ; PVD ( peripheral vascular disease) I73.9 ; Type 2 diabetes mellitus with unspecified complications E11.8 and Essential hypertension I10 [place] [id number] [place] [address] 26189- 8704 Jan, [facility] [id number] [place] [address] 93596- 9303 Jan, Hypothyroidism (acquired) E03.9 [facility] [id number] [place] [address] 84847- 1363 Jan, [place] [id number] [place] [address] 22382- 6246 Jan, [place] [id number] [place] [address] 87791- 3040 Jan, Type 2 diabetes mellitus with unspecified complications E11.8 ; 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 and Essential ( primary) hypertension I10 [place] [id number] [place] [address] 06349- 1844 Jan, Type 2 diabetes mellitus with unspecified complications E11.8 ; 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 ; Essential hypertension I10 and PVD (peripheral vascular disease) I73.9 [place] [address] [address]- 2843 Jan, [place] [id number] [place] [address] 75614- 2544 Jan, [place] [address] [address]- 7813 Jan, [place] [id number] [place] [address] 17076- 3377 Jan, Weakness R53.1 ; Fatigue, unspecified type R53.83 ; PVD ( peripheral vascular disease) I73.9 ; Acute osteomyelitis of other site M86.18 ; Type 2 diabetes mellitus with diabetic neuropathy, unspecified E11.40 and 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 [place] [id number] [place] [address] 26581- 4734 30 Dec, 2015 [place] [id number] [place] [address] 79471- 9104 Dec, Type 2 diabetes mellitus with unspecified complications E11.8 [place] [id number] [place] [address] 31610- 7295 Dec, [place] [id number] [place] [address] 14187- 5297 Dec, Pressure ulcer, unspecified pressure ulcer stage L89.90 and Type 2 diabetes mellitus with unspecified complications E11.8 [facility] [place] [id number] [place] [address] 67284 -2984 Dec, Toe infection L08.9 [place] [id number] [place] [address] 26843- 3353 November, Dental caries K02.9 [place] [id number] [place] [address] 72450- 8155 November, [place] [id number] [place] [address] 53389- 0872 November, Dental examination Z01.20 [place] [id number] [place] [address] 21645- 5668 Sep, Lipoma of torso D17.1 and Thoracic neuritis M54.14 [place] [address] [place] [address] 42813- 3867 Sep, [place] [id number] [place] [address] 72846- 6229 Aug, [facility] [id number] [place] [address] 87309 -5675 Jul, Dysuria R30.0 and UTI (urinary tract infection) N39.0 [place] [id number] [place] [address] 95254- 8348 Jun, Left shoulder pain M25.512 [place] [address] 23090- 1949 May, Shoulder pain, left M25.512 [facility] [id number] [place] [address] 18328- 0949 May, [facility] [address] 47959- 6445 May, [facility] [address] 20860- 1043 May, Left shoulder pain M25.512 [place] [address] 65338- 8686 May, [place] [address] 95922- 6667 Apr, Encounter for immunization Z23 [place] [address] 08436- 2507 Apr, Urinary tract infection, site not specified N39.0 ; Hypotension, unspecified I95.9 ; Type 2 diabetes mellitus with unspecified complications E11.8 and Generalized edema R60.1 [place] [id number] [place] [address] 54286- 8522 Apr, [place] [address] 18262- 8573 Mar, Diabetes with other specified manifestations, type II or unspecified type, not stated as uncontrolled 250.80 [place] [id number] [place] [address] 75738- 3799 Feb, Gout 274.9 and Diabetes 250.00 [place] [id number] [place] [address] 04135- 1205 Jan, [place] [address] 06236- 1336 November, CAD (coronary artery disease) 414.00 and CHF (congestive heart failure) 428.0 [facility] [address] [place] [address]- 9632 28 Oct, 2014 [facility] [address], [place] [address]- 0149 Oct, [facility] [address] [place] [address]- 3910 Oct, [facility] [address] [facility] [id number] [address]- 2065 Sep, [facility] [address] [place] [address]- 9250 Sep, [facility] [address], [place] [address]- 1104 Sep, [facility] [address], [place] [address]- 4126 Sep, [facility] [address], [place] [address]- 5714 Aug, [facility] [address], [place] [address]- 7779 Aug, [facility] [address], [place] [address]- 7309 Aug, [facility] [address], [place] [address]- 5966 Aug, 2014 [facility] [address], [place] [address]- 9705 Aug, 2014 [facility] [address], [place] [address]- 6137 Aug, 2014 [facility] [place] [facility] [address], [place] [address]- 0349 Aug, 2014 [facility] [address], [place] [address]- 5201 Aug, [facility] [address] [id number] [place] [address]- 4915 Jul, [facility] [place] [facility] [address] [id number] [place] [address]- 7627 Jul, [facility] [place] [facility] [address] [id number] [place] [address]- 2089 Jul, [facility] [place] [facility] [address] [id number] [place] [address]- 6920 Jul, [facility] [place] [facility] [address] [id number] [place] [address]- 4244 Jul, [facility] [place] [facility] [address] [id number] [place] [address]- 1588 Jul, [facility] [place] [facility] [address] [id number] [place] [address]- 4923 Jul, [facility] [place] [facility] [address] [id number] [place] [address]- 3145 Jul, [facility] [place] [facility] [address] [id number] [place] [address]- 1742 Jul, [facility] [place] [facility] [address] [id number] [place] [address]- 7748 Jul, [facility] [place] [facility] [address] [id number] [place] [address]- 4825 Jun, [facility] [place] [facility] [address] [id number], [place] [address]- 6420 Jun, [facility] [place] [facility] [address] [id number] [place] [address]- 2669 Jun, [facility] [place] [facility] [address] [id number] [place] [address]- 1671 Jun, [facility] [place] [facility] [address] [id number] [place] [address]- 0790 Jun, [facility] [place] [facility] [address] [id number] [place] [address]- 1079 Jun, [facility] [place] [facility] [address] [id number] [place] [address]- 7404 Jun, [facility] [place] [facility] [address] [id number] [place] [address]- 0461 Jun, [facility] [place] [facility] [address] [id number] [place] 5752 Jun, [facility] [place] [facility] [address] [id number] [place] [address]- 6769 Jun, [facility] [place] [facility] [address] [id number] [place] [address]- 2622 May, [facility] [place] [facility] [address] [id number] [place] [address]- 9419 May, [facility] [place] [facility] [address] [id number] [place] [address]- 7725 Mar, [facility] [place] [facility] [address] [id number] [place] [address]- 6870 Mar, [facility] [place] [facility] [address] [id number] [place] [address]- 3014 Mar, [facility] [place] [facility] [address] [id number] [place] [address]- 8556 Mar, [facility] [place] [facility] [address] [id number] [place] [address]- 4276 Feb, [facility] [place] [facility] [address] [id number] [place] [address]- 2807 Feb, [facility] [place] [facility] [address] [id number] [place] 3716 Feb, [facility] [place] [facility] [address] [id number] [place] 0934 Jan, [facility] [place] [facility] [address] [id number] [place] [address] Jan, [facility] [place] [facility] [address] [id number] [place] [address] Jan, [facility] [place] [facility] [address] [id number] [place] [address] Jan, [facility] [place] [facility] [address] [id number] [place] [address] Jan, [facility] [place] [facility] [address] [id number] [place] [address] Jan, [facility] [place] [facility] [address] [id number] [place] [address] Jan, [facility] [place] [facility] [address] [id number] [place] [address] Jan, [facility] [place] [facility] [address] [id number] [place] [address] Jan, [facility] [place] [facility] [address] [id number] [place] [address] Jan, [facility] [place] [facility] [address] [id number] [place] [address] Dec, [facility] [place] [facility] [address] [id number] [place] [address] Dec, [facility] [place] [facility] [address] [id number] [place] [address] November, [facility] [place] [facility] [address] [id number] [place] [address] November, [facility] [place] [facility] [address] [id number] [place] [address] November, [facility] [place] [facility] [address] [id number] [place] [address] November, [facility] [place] [facility] [address] [id number] [place] [address] November, [facility] [place] [facility] [address] [id number] [place] [address] November, [facility] [place] [facility] [address] [id number] [place] [address] November, [facility] [place] [facility] [address] [id number] [place] [address] Oct, [facility] [place] [facility] [address] [id number] [place] [address] Oct, [facility] [place] [facility] [address] [id number] [place] [address] Sep, [facility] [place] [facility] [address] [id number] [place] [address] Sep, [facility] [place] [facility] [address] [id number] [place] [address] Sep, [facility] [place] [facility] [address] [id number] [place] [address] Sep, [facility] [place] [facility] [address] [id number] [place] [address] Sep, [facility] [place] [facility] [address] [id number] [place] [address] Sep, [facility] [place] [facility] [address] [id number] [place] [address] Sep, [facility] [place] [facility] [address] [id number] [place] [address]- 04[address] Sep, [facility] [place] [facility] [address] [id number] [place] [address]- [address]223 Sep, [facility] [place] [facility] [address] [id number] [place] [address]- [address] Sep, [facility] [place] [facility] [address] [id number] [place] [address] 3320 Aug, [facility] [place] [facility] [address] [id number] [place] [address]- 1409 Aug, [facility] [place] [facility] [address] [id number] [place] [address]- [address]34 14 Jul, 2013 [facility] [address] [id number] [place] [address]- [address]487 14 Jul, 2013 [facility] [place] [facility] [address] [id number] [place] [address]- 7410 13 Jul, 2013 [facility] [address] [id number] [place] [address]- 6878 13 Jul, 2013 [facility] [place] [facility] [address] [id number] [place] [address]- 6476 06 Jul, 2013 [facility] [place] [facility] [address] [id number] [place] [address]- 4801 06 Jul, 2013 [facility] [place] [facility] [address] [id number] [place] [address]- 7520 06 Jun, 2013 [facility] [place] [facility] [address] [id number] [place] [address]- 9107 Jun, [facility] [place] [facility] [address] [id number] [place] [address]- 9242 Jun, [facility] [place] [facility] [address] [id number] [place] [address]- 6133 Jun, [facility] [place] [facility] [address] [facility] [id number] [place] [address]- 7950 14 May, 2013 [facility] [place] [facility] [address] [id number] [place] [address]- 1583 14 May, 2013 [facility] [place] [facility] [address] [id number], [place] [address]- [address] May, [facility] [place] [facility] [address] [id number] [place] [address]- 4858 May, [facility] [place] [facility] [address] [id number] [place] [address]- 1820 07 May, 2013 [facility] [place] [facility] [address] [id number] [place] [address] Apr, [facility] [place] [facility] [address] [id number] [place] [address]- 2460 Apr, [facility] [place] [facility] [address] [id number] [place] [address]- 6251 Apr, [facility] [place] [facility] [address] [id number] [place] [address]- 8892 Apr, [facility] [place] [facility] [address] [id number] [place] [address]- 4847 Apr, [facility] [place] [facility] [address] [id number] [place] [address]- 5899 Apr, [facility] [place] [facility] [address] [id number] [place] [address]- 8325 Apr, [facility] [place] [facility] [address] [id number] [place] [address]- 4355 Apr, [facility] [place] [facility] [address] [id number] [place] [address]- 1407 Apr, [facility] [place] [facility] [address] [id number] [place] [address]- 0165 Apr, [facility] [place] [facility] [address] [id number] [place] [address]- 7133 Apr, [facility] [place] [facility] [address] [id number] [place] [address]- 1201 Apr, [facility] [place] [facility] [address] [id number] [place] [address]- 2996 Mar, [facility] [place] [facility] [address] [id number] [place] [address]- 7923 Mar, [facility] [place] [facility] [address] [id number] [place] [address] 2545 Feb, [facility] [place] [facility] [address] [id number] [place] [address]- 3050 Jan, [facility] [place] [facility] [address] [id number] [place] [address]- 4049 Jan, [facility] [place] [facility] [address] [id number] [place] [address] Jan, [facility] [place] [facility] [address] [id number] [place] [address]- 2051 Jan, [facility] [place] [facility] [address] [id number] [place] [address]- 2860 Dec, [facility] [place] [facility] [address] [id number] [place] [address]- 5260 Dec, [facility] [place] [facility] [address] [id number] [place] [address]- 2715 Dec, [facility] [place] [facility] [address] [id number] [place] [address]- 1442 Dec, [facility] [place] [facility] [address] [id number] [place] [address]- 9355 Dec, [facility] [place] [facility] [address] [id number] [place] [address]- 0138 Dec, [facility] [place] [facility] [address] [id number] [place] [address]- 6561 Dec, [facility] [place] [facility] [address] [id number] [place] [address]- 2047 November, [facility] [place] [facility] [address] [id number] [place] [address]- 2862 November, [facility] [place] [facility] [address] [id number] [place] [address]- 1440 November, [facility] [place] [facility] [address] [id number] [place] [address]- 7539 Oct, [facility] [place] [facility] [address] [id number] [place] [address]- 8611 Oct, [facility] [place] [facility] [address] [id number] [place] [address]- 8158 Oct, [facility] [place] [facility] [address] [id number] [place] [address]- 2546 Oct, [facility] [address] [id number] [place] [address]- 3536 Oct, [facility] [place] [facility] [address] [id number] [place] [address]- 2546 Sep, [facility] [address] [id number] [place] [address]- 1276 Sep, [facility] [place] [facility] [address] [id number] [place] [address]- 0237 Sep, [facility] [address] [id number] [place] [address]- 6336 Sep, [facility] [place] [facility] [address] [id number] [place] [address]- 3716 Aug, [facility] [place] [facility] [address] [id number] [place] [address]- 7606 Aug, [facility] [address] [id number] [place] [address]- 1616 Aug, [facility] [address] [id number] [place] [address]- 0886 Aug, [facility] [address] [id number] [place] [address]- 0156 Jul, [facility] [address] [id number] [place] [address]- 2876 Jul, [facility] [address] [id number] [place] [address]- 8079 Jun, [facility] [place] [facility] [address] [id number] [place] [address]- 0066 Jun, [facility] [place] [facility] [address] [id number] [place] [address]- 2546 Jun, [facility] [place] [facility] [address] [id number] [place] [address]- 3947 Jun, [facility] [place] [facility] [address] [id number] [place] [address]- 9567 May, [facility] [place] [facility] [address] [id number] [place] [address]- 6112 May, [facility] [place] [facility] [address] [facility] [id number] [place] [address]- 1804 May, [facility] [place] [facility] [address] [id number] [place] [address], [place] [address]- 9665 May, [facility] [place] [facility] [address] [id number] [place] [address]- 5423 Apr, [facility] [place] [facility] [address] [id number] [place] [address], [place] [address]- 4066 Apr, [facility] [place] [facility] [address] [id number] [place] [address]- 5995 Apr, [facility] [place] [facility] [address] [id number], [place] [address]- 3059 Apr, [facility] [place] [facility] [address] [id number], [place] [address]- 7275 Apr, [facility] [place] [facility] [address] [facility] [id number], [place] [address]- 8348 Apr, [facility] [place] [facility] [address] [id number], [place] [address]- 0489 Apr, [facility] [place] [facility] [address] [id number], [place] [address]- 3735 Apr, [facility] [place] [facility] [address] [id number], [place] [address]- 1894 Apr, [facility] [place] [facility] [address] [facility] [id number], [place] [address]- 1616 Apr, [facility] [place] [facility] [address] [facility] [id number], [place] [address]- 2743 Feb, [facility] [place] [facility] [address] [id number] [place] [address]- 5303 Feb, [facility] [place] [facility] [address] [id number] [place] [address]- 0119 Jan, [facility] [place] [facility] [address] [id number] [place] [address]- 4936 Jan, [facility] [place] [facility] [address] [id number] [place] [address]- 0915 Jan, [facility] [place] [facility] [address] [id number] [place] [address]- 2087 Jan, [facility] [place] [facility] [address] [id number] [place] [address]- 5700 Jan, [facility] [place] [facility] [address] [id number] [place] [address]- 7541 Jan, [facility] [place] [facility] [address] [id number] [place] [address]- 8814 Dec, [facility] [place] [facility] [address] [id number] [place] [address]- 5459 November, [facility] [place] [facility] [address] [id number] [place] [address]- 3893 November, [facility] [place] [facility] [address] [id number] [place] [address]- 5429 November, [facility] [place] [facility] [address] [id number] [place] [address]- 3418 Sep, [facility] [place] [facility] [address] [id number] [place] [address]- 8021 Sep, [facility] [place] [facility] [address] [id number] [place] [address]- 8403 Sep, [facility] [place] [facility] [address] [id number] [place] [address]- 9932 Sep, [facility] [place] [facility] [address] [id number] [place] [address]- 7766 Sep, [facility] [place] [facility] [address] [id number] [place] [address]- 9110 Sep, [facility] [place] [facility] [address] [id number] [place] [address]- 2366 13 Aug, 2011 [facility] [place] [facility] [address] [id number] [place] [address]- 8456 Aug, [facility] [place] [facility] [address] [id number] [place] [address]- 9156 Aug, [facility] [place] [facility] [address] [id number] [place] [address]- 0231 Jul, [facility] [place] [facility] [address] [id number] [place] [address]- 6199 Jul, [facility] [place] [facility] [address] [id number] [place] [address]- 3246 Jul, [facility] [place] [facility] [address] [id number] [place] [address]- 2195 Jul, [facility] [place] [facility] [address] [id number] [place] [address]- 0008 Jun, [facility] [place] [facility] [address] [id number] [place] [address]- 1998 Jun, [facility] [place] [facility] [address] [id number] [place] [address]- 2361 Jun, [facility] [place] [facility] [address] [id number], [place] [address]- 1490 Jun, [facility] [place] [facility] [address] [id number] [place] [address]- 9420 Jun, [facility] [place] [facility] [address] [id number] [place] [address]- 0294 Jun, [facility] [place] [facility] [address] [id number] [place] [address]- 1706 May, [facility] [place] [facility] [address] [id number], [place] [address]- 2216 May, [facility] [address] [id number] [place] [address]- 7726 May, [facility] [address] [id number] [place] [address]- 5336 Apr, [facility] [address] [id number] [place] [address]- 2046 Jan, [facility] [address] [id number] [place] [address]- 1836 20 Jun, 2010 [facility] [address] [id number] [place] [address]- 2906 20 Jun, 2010 [facility] [place] [facility] [address] [id number] [place] [address]- 8496 15 Jun, 2010 [facility] [address] [facility] [id number] [place] [address]- 7132 15 Jun, 2010 [facility] [place] [facility] [address] [id number] [place] [address]- 2577 15 Jun, 2010 [facility] [address] [facility] [id number] [place] [address]- 5669 Jun, [facility] [place] [facility] [address] [id number] [place] [address]- 3240 Jun, [facility] [place] [facility] [address] [id number] [place] [address]- 6902 Apr, [facility] [place] [facility] [address] [id number] [place] [address]- 6689 Feb, [facility] [place] [facility] [address] [id number] [place] [address]- 1650 15 Aug, 2009 [facility] [place] [facility] [address] [id number] [place] [address]- 2063 18 Jul, 2009 [facility] [place] [facility] [address] [id number] [place] [address]- 2051 11 Jul, 2009 [facility] [place] [facility] [address] [id number] [place] [address]- 6487 29 Jun, 2009 [facility] [place] [facility] [address] [id number] [place] [address]- 7496 Jun, [facility] [place] [facility] [address] [id number] [place] [address] 2546 Jun, [facility] [place] [facility] [address] [id number] [place] [address] 2546 Jun, [facility] [place] [facility] [address] [id number] [place] [address] 2540 16 Jun, 2009 [facility] [place] [facility] [address] [id number] [place] [address]- 1936 Jun, [facility] [place] [facility] [address] [facility] [id number] [place] [address]337 Jun, [facility] [place] [facility] [address] [id number] [place] [address]- 6421 30 May, 2009 [facility] [place] [facility] [address] [id number] [place] [address]- 5046 27 May, 2009 [facility] [place] [facility] [address] [id number] [place] [address]- 0389 23 May, 2009 [facility] [place] [facility] [address] [facility] [id number], [place] [address]- 0065 18 May, 2009 [facility] [place] [facility] [address] [id number], [place] [address]- 4831 18 May, 2009 [facility] [place] [facility] [address] [id number], [place] [address] 2544 16 May, 2009 [facility] [place] [facility] [address] [id number] [place] [address] 2546 03 May, 2009 [facility] [place] [facility] [address] [id number], [place] [address]- 0726 16 Apr, 2009 [facility] [place] [facility] [address] [id number], [place] [address] 3205 Apr, [facility] [address] [facility] [id number] [place] [address]- 2546 Jan, [facility] [address] [facility] [id number], [place] [address]- 2546 Oct, IMMUNIZATIONS No Known Immunizations SOCIAL HISTORY Never Assessed REASON FOR VISIT Controlled Med Refill/PRN PLAN OF CARE VITAL SIGNS MEDICATIONS Medication [...]
--- OUTSIDE RECORDS SUMMARY | 2018-11-09 13:16 | XMS REPORT ---
Author Author PRABHA HILL [facility] Address [address] [place] [address] Care Team Providers Care Field Service Specialist Name Role Phone PRABHA HLIL Unavailable PROBLEMS Type Condition ICD9-CM Code ZAC39-UX Code Onset Dates Condition Status SNOMED Code Problem Hypernatremia E87.0 Active 66628553 Problem Hallucinations R44.3 Active 1722210 Problem Hypoglycemia E16.2 Active 105319781 Problem Anxiety F41.9 Active 97468304 Problem Dementia in other diseases classified elsewhere without behavioral disturbance F02.80 Active 821458887 Problem Neurogenic orthostatic hypotension G90.3 Active 641932262 Problem Dementia with Lewy bodies G31.83 Active 899137806 Problem Coronary artery disease involving [place] coronary artery of [place] heart without angina pectoris I25.10 Active 2893514712022 Problem Parkinsons disease G20 Active 11541760 Problem Unsteady gait R26.81 Active 12479608 Problem Mixed stress and urge urinary incontinence N39.46 Active 593549643 Problem Episodic cluster headache, not intractable G44.019 Active 468874419 Problem PVD (peripheral vascular disease) I73.9 Active 039020182 Problem 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 Active 890292453 Problem Dysuria R30.0 Active 41196176 Problem Type 2 diabetes mellitus with unspecified complications E11.8 Active 31668277 Problem Neuropathy G62.9 Active 230542503 Problem Polydipsia R63.1 Active 99118483 Problem Essential hypertension I10 Active 08706671 Problem Dysthymia F34.1 Active 65771760 Problem Hypothyroidism (acquired) E03.9 Active 778532174 Problem Hyperlipemia, mixed E78.2 Active 585313355 ALLERGIES Substance Reaction Event Type Date Status Sulfamethoxazole-Trimethoprim Unknown Drug Allergy Jul, Active Protamine Sulfate Unknown Drug Allergy Jul, Active Penicillin V Potassium Unknown Drug Allergy Jul, Active Cipro lowers blood sugar Drug Allergy Jul, Active ENCOUNTERS Encounter Location Date Diagnosis [facility] [id number] [place] [address] 32558- 8274 Dec, Left shoulder pain M25.512 [facility] [id number] [place] [address] 46362- 2901 Dec, Type 2 diabetes mellitus with unspecified complications E11.8 ; Anxiety F41.9 ; Therapeutic drug monitoring Z51.81 and Analgesic use Z79.899 [facility] [id number] [place] [address] 24270- 7016 November, [facility] [address] 67715- 6323 November, [facility] [id number] [place] [address] 61390- 4684 November, Left shoulder pain M25.512 [facility] [address] 85764- 2802 Oct, [facility] [id number] [place] [address] 24641 -3215 Oct, [facility] [id number] [place] [address] 80923- 7579 Oct, Parkinsons disease G20 [facility] [id number] [place] [address] 71598 -8148 18 Oct, 2017 Acute cystitis without hematuria N30.00 and Viral upper respiratory tract infection J06.9 [facility] [id number] [place] [address] 70397- 3161 Oct, [facility] [id number] [place] [address] 64539- 2731 Oct, Type 2 diabetes mellitus with unspecified complications E11.8 [facility] [id number] [place] [address] 93903- 3298 16 Oct, 2017 Left shoulder pain M25.512 [facility] [address] 52076- 8201 Oct, Type 2 diabetes mellitus with unspecified complications E11.8 ; Dysuria R30.0 and Neurogenic orthostatic hypotension G90.3 [place] [address] 47754- 4329 Sep, Left shoulder pain M25.512 [place] [address] 65592- 9840 Sep, Medicare annual wellness visit, initial Z00.00 ; Parkinsons disease G20 ; Type 2 diabetes mellitus with unspecified complications E11.8 ; Essential hypertension I10 ; Coronary artery disease involving [place] coronary artery of [place] heart without angina pectoris I25.10 ; Hypothyroidism (acquired ) E03.9 ; PVD (peripheral vascular disease) I73.9 ; Dysthymia F34.1 ; Hyperlipemia, mixed E78.2 ; Neuropathy G62.9 ; Encounter for immunization Z23 ; Encounter for other screening for malignant neoplasm of breast Z12.39 and Mixed stress and urge urinary incontinence N39.46 [place] [address] 46824- 3405 25 Aug, 2017 Parkinsons disease G20 [place] [address] 89418- 6414 21 Aug, 2017 Type 2 diabetes mellitus with unspecified complications E11.8 ; Left shoulder pain M25.512 and Hypotensive episode I95.9 [place] [address] 76835- 4790 09 Aug, 2017 Coronary artery disease involving [place] coronary artery of [place] heart without angina pectoris I25.10 [place] [address] 39118- 3442 07 Aug, 2017 Type 2 diabetes mellitus with unspecified complications E11.8 [place] [address] 39107- 7385 Jul, Callus of foot L84 [place] [address] 33093- 9894 Jul, [place] [id number] [place] [address] 74134- 6992 Jul, Callus of foot L84 ; Episodic cluster headache, not intractable G44.019 ; Type 2 diabetes mellitus with unspecified complications E11.8 and Parkinsons disease G20 [place] [id number] [place] [address] 41028- 2324 Jul, [place] [address] 69822- 3369 Jul, [place] [id number] [place] [address] 49363- 5594 Jun, Type 2 diabetes mellitus with unspecified complications E11.8 ; Unsteady gait R26.81 ; Forgetfulness R68.89 and Hallucinations R44.3 [place] [id number] [place] [address] 94034- 0297 Jun, [place] [id number] [place] [address] 15398- 5565 Jun, Left shoulder pain M25.512 [place] [id number] [place] [address] 92501- 9451 May, Hypernatremia E87.0 and Polydipsia R63.1 [place] [id number] [place] [address] 23896- 5858 08 May, 2017 Hypernatremia E87.0 and Polydipsia R63.1 [place] [id number] [place] [address] 09526- 1462 08 May, 2017 Hypoglycemia E16.2 ; Dysuria R30.0 ; Unsteadiness on feet R26.81 ; Forgetfulness R68.89 ; Type 2 diabetes mellitus with unspecified complications E11.8 and Yeast infection involving the vagina and surrounding area B37.3 [place] [id number] [place] [address] 46271- 6654 May, Acute cystitis without hematuria N30.00 [facility] [id number] [place] [address] 84038 -5162 Apr, Dysuria R30.0 and Acute cystitis without hematuria N30.00 [facility] [id number] [place] [address] 62888- 9954 Apr, Hypernatremia E87.0 and Polydipsia R63.1 [place] [address] 47814- 7837 Apr, Vertigo R42 and Type 2 diabetes mellitus with unspecified complications E11.8 [place] [address] 02470- 3495 Mar, [place] [address] 02182- 7154 19 Mar, 2017 Left shoulder pain M25.512 [place] [address] 41949- 5908 13 Mar, 2017 Vertigo R42 [place] [address] 67931- 2671 12 Mar, 2017 Polydipsia R63.1 [place] [address] 41708- 4786 Mar, Polydipsia R63.1 [place] [id number] [place] [address] 40462- 3800 Mar, Vertigo R42 [place] [address] 50508- 0027 07 Mar, 2017 Type 2 diabetes mellitus with unspecified complications E11.8 ; Vertigo R42 ; Polydipsia R63.1 ; Polyuria R35.8 ; Hypothyroidism ( acquired) E03.9 ; Abnormal urinalysis R82.90 and Dysthymia F34.1 [facility] [id number] [place] [address] 40837- 7247 05 Mar, 2017 Coronary artery disease of [place] artery with stable angina pectoris, unspecified whether [place] or transplanted heart I25.118 ; Systolic CHF, chronic I50.22 ; Hyperlipemia, mixed E78.2 and Essential hypertension I10 [facility] [id number] [place] [address] [id number] Feb, Dental caries K02.9 [facility] [id number] [place] [address] 71350- 2010 Feb, Type 2 diabetes mellitus with diabetic neuropathy, unspecified E11.40 [facility] [id number] [place] [address] 37317- 1273 Dec, Left shoulder pain M25.512 [facility] [address] 05681- 0022 Dec, [facility] [id number] [place] [address] 98334- 9049 Dec, Type 2 diabetes mellitus with unspecified complications E11.8 [facility] [id number] [place] [address] [id number] Dec, Dental examination Z01.20 [facility] [id number] [place] [address] 11235- 4672 Dec, Type 2 diabetes mellitus with diabetic neuropathy, unspecified E11.40 [facility] [id number] [place] [address] 99212- 3925 Dec, [facility] [id number] [place] [address] 39667- 3407 Dec, Type 2 diabetes mellitus with diabetic neuropathy, unspecified E11.40 [facility] [id number] [place] [address] 48660- 8581 November, Left shoulder pain M25.512 [facility] [id number] [place] [address] 76704- 6075 November, [facility] [id number] [place] [address] 52161- 9416 November, Type 2 diabetes mellitus with unspecified complications E11.8 and Dysuria R30.0 [place] [id number] [place] [address] 86041- 2760 Oct, Left shoulder pain M25.512 [place] [id number] [place] [address]- 2279 Sep, Left shoulder pain M25.512 [place] [id number] [place] [address] 19709- 0772 Sep, Pre-op testing Z01.818 [place] [id number] [place] [address] 21892- 6666 Sep, Pre-op testing Z01.818 [place] [address] 87064- 5381 Sep, Pre-op testing Z01.818 [place] [id number] [place] [address] 84872- 8357 Sep, Pre-op testing Z01.818 and Mouth pain K13.79 [place] [id number] [place] [address] 38712- 3374 Sep, Left shoulder pain M25.512 [place] [id number] [place] [address] 54768- 6181 Aug, Other eczema L30.8 [place] [id number] [place] [address] 92989- 4047 Aug, PVD (peripheral vascular disease) I73.9 ; Type 2 diabetes mellitus with unspecified complications E11.8 ; Acute cystitis with hematuria N30.01 ; Other eczema L30.8 ; Dysuria R30.0 and Left shoulder pain M25.512 [facility] [id number] [place] [address] 89361 -8257 Jul, Otalgia of right ear H92.01 and Blood in ear canal, right H92.21 [place] [id number] [place] [address] 51346- 4070 Jul, Arthralgia, unspecified joint M25.50 ; PVD (peripheral vascular disease) I73.9 and Neuropathy G62.9 [facility] [address] 49466- 0728 Jul, [facility] [id number] [place] [address] 40181- 9108 Jun, Medicare annual wellness visit, initial Z00.00 ; Cervicalgia M54.2 ; Radiculopathy of cervical region M54.12 ; Encounter for immunization Z23 ; Type 2 diabetes mellitus with unspecified complications E11.8 and Essential hypertension I10 [place] [address] 74516- 0512 Jun, [place] [address] 68559- 7414 May, Hypothyroidism (acquired) E03.[address] 24847- 2798 May, Dysuria R30.0 ; Essential hypertension I10 ; Hypothyroidism (acquired) E03.9 and PVD (peripheral vascular disease) I73.9 [facility] [id number] [place] [address] 43878 -5814 May, Burning with urination R30.0 and Acute cystitis with hematuria N30.01 [facility] [id number] [place] [address] 66885- 1486 May, Dental examination Z01.20 [facility] [id number] [place] [address] 28273- 1012 May, Hypothyroidism (acquired) E03.9 [place] [address] 22588- 4575 Feb, [facility] [address] 30753- 4416 Feb, 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 ; PVD ( peripheral vascular disease) I73.9 ; Type 2 diabetes mellitus with unspecified complications E11.8 and Essential hypertension I10 [place] [id number] [place] [address] 37653- 6946 Jan, [place] [id number] [place] [address] 65950- 0467 Jan, Hypothyroidism (acquired) E03.9 [place] [address] 22096- 0924 Jan, [place] [id number] [place] [address] 93263- 5425 Jan, [place] [id number] [place] [address] 03392- 9296 Jan, Type 2 diabetes mellitus with unspecified complications E11.8 ; 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 and Essential ( primary) hypertension I10 [place] [id number] [place] [address] 08279- 1763 Jan, Type 2 diabetes mellitus with unspecified complications E11.8 ; 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 ; Essential hypertension I10 and PVD (peripheral vascular disease) I73.9 [place] [id number] [place] [address] 56621- 7213 Jan, [place] [id number] [place] [address] 39670- 1280 Jan, [place] [id number] [place] [address] 51978- 0678 Jan, [place] [id number] [place] [address] 32429- 2712 Jan, Weakness R53.1 ; Fatigue, unspecified type R53.83 ; PVD ( peripheral vascular disease) I73.9 ; Acute osteomyelitis of other site M86.18 ; Type 2 diabetes mellitus with diabetic neuropathy, unspecified E11.40 and retirement 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.4 [place] [id number] [place] [address] 93929- 1006 30 Dec, 2015 [place] [id number] [place] [address] 47658- 3792 Dec, Type 2 diabetes mellitus with unspecified complications E11.8 [place] [id number] [place] [address] 47485- 0069 Dec, [place] [id number] [place] [address] 87026- 5464 Dec, Pressure ulcer, unspecified pressure ulcer stage L89.90 and Type 2 diabetes mellitus with unspecified complications E11.8 [facility] [id number] [place] [address] 24368 -0671 Dec, Toe infection L08.9 [place] [id number] [place] [address] 67335- 9525 November, Dental caries K02.9 [place] [id number] [place] [address] 49435- 6138 November, [place] [id number] [place] [address] 32666- 8629 November, Dental examination Z01.20 [place] [id number] [place] [address] 46774- 5890 Sep, Lipoma of torso D17.1 and Thoracic neuritis M54.14 [place] [id number] [place] [address] 20099- 9017 Sep, [place] [address] [place] [address] 73825- 4570 Aug, [facility] [id number] [place] [address] 45311 -8599 Jul, Dysuria R30.0 and UTI (urinary tract infection) N39.0 [place] [address] [address]- 3555 Jun, Left shoulder pain M25.512 [place] [id number] [place] [address] 35575- 7942 May, Shoulder pain, left M25.512 [place] [id number] [place] [address] 16977- 2753 May, [place] [address] 05829- 1266 May, [place] [address] 53761- 7466 May, Left shoulder pain M25.512 [place] [id number] [place] [address] 55034- 5468 May, [place] [id number] [place] [address] 14742- 1898 Apr, Encounter for immunization Z23 [place] [address] 70621- 4840 Apr, Urinary tract infection, site not specified N39.0 ; Hypotension, unspecified I95.9 ; Type 2 diabetes mellitus with unspecified complications E11.8 and Generalized edema R60.1 [place] [id number] [place] [address] 75730- 3669 Apr, [place] [id number] [place] [address] 06148- 3331 Mar, Diabetes with other specified manifestations, type II or unspecified type, not stated as uncontrolled 250.80 [place] [id number] [place] [address] 17016- 0519 Feb, Gout 274.9 and Diabetes 250.00 [place] [address] 22607- 8993 Jan, [place] [id number] [place] [address] 53253- 7972 November, CAD (coronary artery disease) 414.00 and CHF (congestive heart failure) 428.0 [place] [address] [place] [address]- 0573 28 Oct, 2014 [facility] [place] [facility] [address] [id number] [place] [address]- 9428 14 Oct, 2014 [facility] [place] [facility] [address] [facility] [id number] [place] [address]- 0658 13 Oct, 2014 [facility] [place] [facility] [address] [facility] [id number] [place] [address]- 7424 30 Sep, 2014 [facility] [place] [facility] [address] [facility] [id number] [place] [address]- 4573 Sep, [facility] [place] [facility] [address] [facility] [id number] [place] [address]- 5383 Sep, [facility] [place] [facility] [address] [facility] [id number] [place] [address]- 6757 Sep, [facility] [place] [facility] [id number] [place] [address]- 9087 Aug, 2014 [facility] [place] [facility] [address] [facility] [id number] [place] [address]- 6119 Aug, 2014 [facility] [place] [facility] [address] [place] [address]- 6692 10 Aug, 2014 [facility] [place] [facility] [address] [id number] [place] [address]- 8721 10 Aug, 2014 [facility] [place] [facility] [address] [facility] [id number] [place] [address]- 9166 10 Aug, 2014 [facility] [place] [facility] [address] [facility] [id number] [place] [address]- 2547 Aug, 2014 [facility] [place] [facility] [address] [facility] [id number] [place] [address]- 3589 05 Aug, 2014 [facility] [place] [facility] [address] [facility] [id number] 4808 05 Aug, 2014 [facility] [place] [facility] [address] [id number] [address]- 5105 Jul, [facility] [place] [facility] [address] [id number] [place] [address]- 1283 Jul, [facility] [place] [facility] [address] [id number] [place] [address]- 3688 Jul, [facility] [place] [facility] [address] [facility] [id number] [place] [address]- 6460 Jul, [facility] [place] [facility] [address] [id number] [place] [address]- 1065 Jul, [facility] [place] [facility] [address] [id number] [place] [address]- 0064 Jul, [facility] [place] [facility] [address] [id number] [place] [address]- 2834 Jul, [facility] [place] [facility] [address] [id number] [place] [address]- 6864 Jul, [facility] [place] [facility] [address] [id number] [address]- 2554 Jul, [facility] [place] [facility] [address] [id number] [place] [address]- 6618 Jul, [facility] [place] [facility] [address] [id number] [place] [address]- 1690 Jun, [facility] [place] [facility] [address] [id number] [address]- 5648 Jun, [facility] [place] [facility] [address] [id number] [address]- 1685 Jun, [facility] [place] [facility] [address] [id number] [place] [address]- 3247 Jun, [facility] [place] [facility] [address] [id number] [place] [address]- 9915 Jun, [facility] [place] [facility] [address] [id number] [place] 8680 Jun, [facility] [place] [facility] [address] [id number] [place] [address]- 5019 Jun, [facility] [place] [facility] [address] [id number] [place] [address]- 0681 Jun, [facility] [place] [facility] [address] [id number] [place] [address]- 7532 Jun, [facility] [place] [facility] [address] [id number] [place] [address] Jun, [facility] [place] [facility] [address] [id number] [place] [address] May, [facility] [place] [facility] [address] [id number] [place] [address] May, [facility] [place] [facility] [address] [id number] [place] [address] Mar, [facility] [place] [facility] [address] [id number] [place] [address] Mar, [facility] [place] [facility] [address] [id number] [place] [address] Mar, [facility] [place] [facility] [address] [id number] [place] [address] Mar, [facility] [place] [facility] [address] [id number] [place] [address] Feb, [facility] [place] [facility] [address] [id number] [place] [address] Feb, [facility] [place] [facility] [address] [id number] [place] [address] Feb, [facility] [place] [facility] [address] [id number] [place] [address] Jan, [facility] [place] [facility] [address] [id number] [place] [address] Jan, [facility] [place] [facility] [address] [id number] [place] [address] Jan, [facility] [place] [facility] [address] [id number] [place] [address] Jan, [facility] [place] [facility] [address] [id number] [place] [address] Jan, [facility] [place] [facility] [address] [id number] [place] [address] Jan, [facility] [place] [facility] [address] [id number] [place] [address] Jan, [facility] [place] [facility] [address] [id number] [place] [address] Jan, [facility] [place] [facility] [address] [id number] [place] [address] Jan, [facility] [place] [facility] [address] [id number] [place] [address] Jan, [facility] [place] [facility] [address] [id number] [place] [address] Dec, [facility] [place] [facility] [address] [id number] [place] [address] Dec, [facility] [place] [facility] [address] [id number] [place] [address] November, [facility] [place] [facility] [address] [id number] [place] [address] November, [facility] [place] [facility] [address] [id number] [place] [address] November, [facility] [place] [facility] [address] [id number] [place] [address] November, [facility] [place] [facility] [address] [id number] [place] [address] 36[address] November, [facility] [place] [facility] [address] [id number] [place] [address] November, [facility] [place] [facility] [address] [id number] [place] [address] 18[address] November, [facility] [place] [facility] [address] [id number] [place] [address] 8989 Oct, [facility] [place] [facility] [address] [id number] [place] [address] 7758 Oct, [facility] [place] [facility] [address] [id number] [place] [address] 9573 Sep, [facility] [place] [facility] [address] [id number] [place] [address] 1489 Sep, [facility] [place] [facility] [address] [id number] [place] [address]- 0824 Sep, [facility] [place] [facility] [address] [id number] [place] [address] 7939 Sep, [facility] [place] [facility] [address] [id number] [place] [address]- 06[address] Sep, [facility] [place] [facility] [address] [id number] [place] [address]- 5386 Sep, [facility] [place] [facility] [address] [id number] [place] [address]- 7986 Sep, [facility] [place] [facility] [address] [id number] [place] [address]- 2175 Sep, [facility] [place] [facility] [address] [id number] [place] [address]- 5011 Sep, [facility] [place] [facility] [address] [id number] [place] [address] 3415 Sep, [facility] [place] [facility] [address] [id number] [place] [address]- 0160 Aug, [facility] [place] [facility] [address] [id number] [place] [address] Aug, [facility] [place] [facility] [address] [id number] [place] [address]- 1766 Jul, [facility] [place] [facility] [address] [id number] [place] [address]- 3575 14 Jul, 2013 [facility] [place] [facility] [address] [id number] [place] [address]- 8997 13 Jul, 2013 [facility] [place] [facility] [address] [id number] [place] [address]- 9782 13 Jul, 2013 [facility] [place] [facility] [address] [id number] [place] [address]- 0778 06 Jul, 2013 [facility] [place] [facility] [address] [id number] [place] [address]- 8280 06 Jul, 2013 [facility] [place] [facility] [address] [id number] [place] [address] 8860 Jun, [facility] [place] [facility] [address] [id number] [place] [address] 6151 Jun, [facility] [place] [facility] [address] [id number] [place] [address]- 1156 Jun, [facility] [place] [facility] [address] [id number] [place] [address]- 7407 Jun, [facility] [place] [facility] [address] [id number] [place] [address]- 2146 May, [facility] [place] [facility] [address] [id number] [place] [address]- 1472 14 May, 2013 [facility] [place] [facility] [address] [id number] [place] [address]- 0056 May, [facility] [place] [facility] [address] [id number] [place] [address]- 4320 May, [facility] [place] [facility] [address] [id number] [place] [address]- 7476 May, [facility] [place] [facility] [address] [id number] [place] [address]- 4317 Apr, [facility] [place] [facility] [address] [id number] [place] [address]- 0869 Apr, [facility] [place] [facility] [address] [id number] [place] [address]- 5869 Apr, [facility] [place] [facility] [address] [id number] [place] [address]- 0845 Apr, [facility] [place] [facility] [address] [id number] [place] [address] Apr, [facility] [place] [facility] [address] [id number] [place] [address]- 8112 Apr, [facility] [place] [facility] [address] [id number] [place] [address]- 4442 Apr, [facility] [place] [facility] [address] [id number] [place] [address]- 4960 Apr, [facility] [place] [facility] [address] [id number] [place] [address]- 0573 Apr, [facility] [place] [facility] [address] [id number] [place] [address]- 3815 Apr, [facility] [place] [facility] [address] [id number] [place] [address]- 8050 Apr, [facility] [place] [facility] [address] [id number] [place] [address]- 5666 Apr, [facility] [place] [facility] [address] [id number] [address]- 4129 Mar, [facility] [place] [facility] [address] [id number] [place] [address]- 0554 Mar, [facility] [place] [facility] [address] [id number] [place] [address]- 0687 Feb, [facility] [place] [facility] [address] [id number] [place] [address] 9323 Jan, [facility] [place] [facility] [address] [id number] [place] [address] 2540 Jan, [facility] [place] [facility] [address] [id number] [place] [address]- 0451 Jan, [facility] [address] [id number] [place] [address]- 8464 Jan, [facility] [address] [id number] [place] [address]- 1871 Dec, [facility] [address] [id number] [place] [address]- 9051 Dec, [facility] [place] [facility] [address] [id number] [place] [address]- 1685 Dec, [facility] [address] [id number] [place] [address]- 2138 Dec, [facility] [address] [id number] [place] [address]- 0552 Dec, [facility] [address] [id number] [place] [address]- 7876 Dec, [facility] [address] [id number] [place] [address]- 9673 Dec, [facility] [address] [id number] [place] [address]- 2965 November, [facility] [address] [id number] [place] [address]- 6443 November, [facility] [address] [id number] [place] [address]- 9378 November, [facility] [place] [facility] [address] [id number] [place] [address]- 0399 Oct, [facility] [place] [facility] [address] [id number] [place] [address]- 6711 Oct, [facility] [place] [facility] [address] [id number] [place] [address]- 1901 Oct, [facility] [place] [facility] [address] [id number] [place] [address]- 5131 Oct, [facility] [place] [facility] [address] [id number] [place] [address]- 9061 Oct, [facility] [place] [facility] [address] [id number] [place] [address]- 4527 26 Sep, 2012 [facility] [place] [facility] [address] [id number] [place] [address]- 0326 Sep, [facility] [place] [facility] [address] [id number] [place] [address]- 6445 Sep, [facility] [place] [facility] [address] [id number] [place] [address]- 0637 Sep, [facility] [place] [facility] [address] [id number] [place] [address]- 3247 Aug, [facility] [place] [facility] [address] [id number] [place] [address]- 6015 Aug, [facility] [place] [facility] [address] [id number] [place] [address]- 4887 Aug, [facility] [place] [facility] [address] [id number] [place] [address]- 1613 Aug, [facility] [place] [facility] [address] [id number] [place] [address]- 0706 Jul, [facility] [place] [facility] [address] [id number] [place] [address]- 5536 Jul, [facility] [place] [facility] [address] [id number] [place] [address]- 9685 Jun, [facility] [place] [facility] [address] [id number] [place] [address]- 8576 Jun, [facility] [place] [facility] [address] [id number] [place] [address]- 9056 Jun, [facility] [place] [facility] [address] [facility] [id number] [place] [address]- 4266 Jun, [facility] [place] [facility] [address] [id number] [address]- 9570 May, [facility] [place] [facility] [address] [id number] [place] [address]- 9975 May, [facility] [place] [facility] [address] [id number] [place] [address]- 6674 May, [facility] [place] [facility] [address] [facility] [id number] [place] [address]- 1872 May, [facility] [place] [facility] [address] [id number] [place] [address]- 9588 Apr, [facility] [place] [facility] [address] [id number] [place] [address]- 2293 Apr, [facility] [place] [facility] [address] [id number] [place] [address]- 1740 Apr, [facility] [place] [facility] [address] [facility] [id number] [place] [address]- 8576 Apr, [facility] [place] [facility] [address] [facility] [id number] [place] [address]- 8683 Apr, [facility] [place] [facility] [address] [facility] [id number] [place] [address]- 8697 Apr, [facility] [place] [facility] [address] [facility] [id number] [place] [address]- 8921 Apr, [facility] [place] [facility] [address] [facility] [id number] [place] [address]- 5254 Apr, [facility] [place] [facility] [address] [facility] [id number] [place] [address]- 2981 Apr, [facility] [place] [facility] [address] [id number] [place] [address]- 0061 Apr, [facility] [place] [facility] [address] [facility] [id number] [place] [address]- 5042 Feb, [facility] [place] [facility] [address] [facility] [id number] [place] [address]- 5739 Feb, [facility] [place] [facility] [address] [id number] [place] [address]- 2546 Jan, [facility] [place] [facility] [address] [id number] [place] [address]- 9586 Jan, [facility] [place] [facility] [address] [id number] [place] [address]- 2546 Jan, [facility] [place] [facility] [address] [id number] [place] [address]- 4896 Jan, [facility] [place] [facility] [address] [id number] [place] [address]- 2546 Jan, [facility] [place] [facility] [address] [id number] [place] [address]- 1766 Jan, [facility] [place] [facility] [address] [id number] [place] [address]- 6886 Dec, [facility] [place] [facility] [address] [id number] [place] [address]- 6364 November, [facility] [place] [facility] [address] [id number] [place] [address]- 1433 November, [facility] [place] [facility] [address] [id number] [place] [address]- 4186 November, [facility] [place] [facility] [address] [id number] [place] [address]- 3771 Sep, [facility] [place] [facility] [address] [id number] [place] [address]- 0536 Sep, [facility] [place] [facility] [address] [id number] [place] [address]- 2546 Sep, [facility] [place] [facility] [address] [id number] [place] [address]- 2546 Sep, [facility] [place] [facility] [address] [id number] [place] [address]- 2546 Sep, [facility] [place] [facility] [address] [id number] [place] [address]- 3693 Sep, [facility] [place] [facility] [address] [id number] [place] [address]- 8224 Aug, [facility] [place] [facility] [address] [id number] [place] [address]- 1236 Aug, [facility] [place] [facility] [address] [facility] [id number] [place] [address]- 6116 Aug, [facility] [place] [facility] [address] [id number] [place] [address]- 4603 Jul, [facility] [place] [facility] [address] [id number] [place] [address]- 8080 Jul, [facility] [place] [facility] [address] [id number] [place] [address]- 8088 Jul, [facility] [place] [facility] [address] [id number] [place] [address]- 3261 Jul, [facility] [place] [facility] [address] [id number] [place] [address]- 8219 Jun, [facility] [place] [facility] [address] [id number] [place] [address]- 9576 Jun, [facility] [place] [facility] [address] [id number] [place] [address]- 5177 Jun, [facility] [place] [facility] [address] [id number] [place] [address]- 8945 Jun, [facility] [place] [facility] [address] [id number] [place] [address]- 9324 Jun, [facility] [place] [facility] [address] [id number] [place] [address]- 4679 Jun, [facility] [place] [facility] [address] [id number] [place] [address]- 8001 May, [facility] [place] [facility] [address] [facility] [id number] [place] [address]- 3142 May, [facility] [place] [facility] [address] [id number] [place] [address]- 0575 May, [facility] [address] [id number] [place] [address]- 0516 Apr, [facility] [address] [id number] [place] [address] 2546 Jan, [facility] [address] [id number] [place] [address]- 4876 20 Jun, 2010 [facility] [address] [id number] [place] [address] 2546 20 Jun, 2010 [facility] [address] [id number] [place] [address]- 5176 15 Jun, 2010 [facility] [address] [id number] [place] [address]- 2546 15 Jun, 2010 [facility] [address] [id number] [place] [address]- 5146 15 Jun, 2010 [facility] [address] [id number] [place] [address]- 1964 13 Jun, 2010 [facility] [address] [id number] [place] [address]- 5729 Jun, [facility] [address] [id number] [place] [address]- 0051 Apr, [facility] [address] [id number] [place] [address] 2546 Feb, [facility] [address] [id number] [place] [address] 2541 15 Aug, 2009 [facility] [address] [id number] [place] [address]- 1516 18 Jul, 2009 [facility] [address] [id number] [place] [address] 2546 Jul, [facility] [address] [id number] [place] [address]- 8406 29 Jun, 2009 [facility] [place] [facility] [address] [id number] [place] [address]- 5756 Jun, [facility] [place] [facility] [address] [id number] [place] [address]- 2896 Jun, [facility] [place] [facility] [address] [facility] [id number] [place] [address]- 6085 Jun, [facility] [place] [facility] [address] [id number] [place] [address]- 6830 16 Jun, 2009 [facility] [place] [facility] [address] [id number] [place] [address]- 0344 Jun, [facility] [place] [facility] [address] [id number] [place] [address]- 1880 Jun, [facility] [place] [facility] [address] [facility] [id number] [place] [address]- 0320 30 May, 2009 [facility] [place] [facility] [address] [id number] [place] [address]- 9261 27 May, 2009 [facility] [place] [facility] [address] [facility] [id number] [place] [address]- 1748 23 May, 2009 [facility] [place] [facility] [address] [facility] [id number] [place] [address]- 5949 May, [facility] [place] [facility] [address] [facility] [id number] [place] [address]- 3590 18 May, 2009 [facility] [place] [facility] [address] [id number] [place] [address]- 0304 16 May, 2009 [facility] [place] [facility] [address] [facility] [id number] [place] [address]- 0705 03 May, 2009 [facility] [place] [facility] [address] [id number] [place] [address]- 0068 16 Apr, 2009 [facility] [place] [facility] [address] [facility] [id number] [place] [address]- 2654 12 Apr, 2009 [facility] [place] [facility] [address] [id number] [place] [address]- 3626 Jan, [facility] [address] [facility] [id number] [place] [address]- 4426 Oct, IMMUNIZATIONS No Known Immunizations SOCIAL HISTORY Never Assessed REASON FOR VISIT ER f/u- states she saw Dr Kwan today and was diagnosed with Parkinson- Chu Moran RN PLAN OF CARE Activity Details Follow Up 4 Weeks Reason:DM and foot ulcer VITAL SIGNS Height 62 in 2017-08-05 Weight 178 lbs 2017-08-05 Temperature 98.2 degrees Fahrenheit 2017-08-05 Heart Rate 80 bpm 2017-08-05 Respiratory Rate 18 2017-08-05 BMI 32.55 kg/m2 2017-08-05 Blood pressure systolic 102 mmHg 2017-08-05 Blood pressure diastolic 72 mmHg 2017-08-05 MEDICATIONS Medication Instructions Dosage Frequency Start Date End Date Duration Status Clopidogrel Bisulfate 75 MG Orally Once a day 1 tablet 24h 30 Active Aspirin 81 MG Orally Once a day 1 tablet 24h Active Trutest Blood Glucose Test Strip N/A subcutaneously 6 times a day. E11.40 test blood sugar Dec, Active Citalopram Hydrobromide 20 mg Orally Once a day 1.5 tablets 24h 90 days Active Tresiba FlexTouch 200 UNIT/ML Subcutaneous once a day Inject 18 units 24h Jan, Active BD Pen Needle Mini U/F 31G X 5 MM subcutaneously 4 times a day as directed 6h Dec, 30 days Active NovoLog Flexpen 100 UNIT/ML 5u after breakfast only Active Zontivity 2.08 MG Orally Once a day 1 tablet 24h Active Meclizine HCl 12.5 MG Orally twice a day 1 - 2 tablets as needed 12h Mar Unknown Estrace 0.1 MG/GM Vaginal Once a day 24h Active Doxycycline Hyclate 100 MG Orally Twice a day 1 capsule 12h Jul, Active Fish Oil 1000 MG Orally 2 times a day 1 capsule 12h Active Vitamin D-3 Active Carvedilol 3.125 MG Orally 2 times a day 1 tablet 12h Active Donepezil HCl 5 mg Orally Once a day 1 tablet at bedtime 24h 10 Jul, 2017 Active Betamethasone Dipropionate Aug 0.05 % Externally 2 times a day 1 application to affected area 12h Aug, Active Levothyroxine Sodium 25 MCG Orally Once a day 1 tablet on an empty stomach in the morning 24h 30 Active PredniSONE 20 mg Orally Once a day 2 tablet 24h 10 Jul, 2017 15 Jul, 2017 05 days Active Fenofibric Acid 135 MG Orally Once a day 1 capsule 24h Active Crestor 10 MG Orally Once a day 1 tablet 24h Active Fluticasone Propionate 50 MCG/ACT Nasally twice a day 1 spray in each nostril 12h 07 Mar, 2017 Unknown RESULTS No Results PROCEDURES Procedure Date Ordered Result Body Site [facility] VISIT ESTABLISHED PATIENT Aug 05, 2017 INSTRUCTIONS MEDICATIONS ADMINISTERED No Known [...]
--- OUTSIDE RECORDS SUMMARY | 2018-11-09 13:17 | XMS REPORT ---
Author Author PRABHA HILL [facility] Address [address] [place] [address] Care Team Providers Care Filter Assembler Name Role Phone PRABHA HILL Unavailable PROBLEMS Type Condition ICD9-CM Code WGO81-DO Code Onset Dates Condition Status SNOMED Code Problem Hyperlipemia, mixed E78.2 Active 993263747 Problem Hypoglycemia E16.2 Active 835332712 Problem Hypernatremia E87.0 Active 39267319 Problem Neurogenic orthostatic hypotension G90.3 Active 441685098 Problem Dementia with Lewy bodies G31.83 Active 264259776 Problem Mixed stress and urge urinary incontinence N39.46 Active 521437499 Problem Coronary artery disease involving [place] coronary artery of [place] heart without angina pectoris I25.10 Active 8820627505956 Problem Unsteady gait R26.81 Active 63534159 Problem Hallucinations R44.3 Active 7956208 Problem Parkinsons disease G20 Active 33309192 Problem Episodic cluster headache, not intractable G44.019 Active 025728298 Problem Type 2 diabetes mellitus with unspecified complications E11.8 Active 61261575 Problem PVD (peripheral vascular disease) I73.9 Active 031055634 Problem Dementia in other diseases classified elsewhere without behavioral disturbance F02.80 Active 787122027 Problem Dysuria R30.0 Active 37876790 Problem Hypothyroidism (acquired) E03.9 Active 188904345 Problem Neuropathy G62.9 Active 422499243 Problem 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 Active 346656604 Problem Dysthymia F34.1 Active 96750805 Problem Essential hypertension I10 Active 58965097 Problem Polydipsia R63.1 Active 26164270 ALLERGIES No Information ENCOUNTERS Encounter Location Date Diagnosis [facility] [address] [facility] [id number] [address] Dec, [facility] [id number] [place] [address] 72966 -9629 Oct, [facility] [id number] [place] [address] 08935- 2319 Oct, Parkinsons disease G20 [facility] [id number] [place] [address] 68055 -3857 18 Oct, 2017 Acute cystitis without hematuria N30.00 and Viral upper respiratory tract infection J06.9 [facility] [id number] [place] [address] 27305- 7811 Oct, [facility] [id number] [place] [address] 05194- 5023 Oct, Type 2 diabetes mellitus with unspecified complications E11.8 [place] [id number] [place] [address] 74901- 6901 16 Oct, 2017 Left shoulder pain M25.512 [place] [id number] [place] [address] 38281- 9754 16 Oct, 2017 Type 2 diabetes mellitus with unspecified complications E11.8 ; Dysuria R30.0 and Neurogenic orthostatic hypotension G90.3 [place] [id number] [place] [address] 06436- 4275 19 Sep, 2017 Left shoulder pain M25.512 [place] [id number] [place] [address] 44000- 6565 12 Sep, 2017 Medicare annual wellness visit, initial Z00.00 ; Parkinsons disease G20 ; Type 2 diabetes mellitus with unspecified complications E11.8 ; Essential hypertension I10 ; Coronary artery disease involving [place] coronary artery of [place] heart without angina pectoris I25.10 ; Hypothyroidism (acquired ) E03.9 ; PVD (peripheral vascular disease) I73.9 ; Dysthymia F34.1 ; Hyperlipemia, mixed E78.2 ; Neuropathy G62.9 ; Encounter for immunization Z23 ; Encounter for other screening for malignant neoplasm of breast Z12.39 and Mixed stress and urge urinary incontinence N39.46 [facility] [id number] [place] [address] 11568- 5547 Aug, Parkinsons disease G20 [facility] [id number] [place] [address] 11276- 1782 Aug, Type 2 diabetes mellitus with unspecified complications E11.8 ; Left shoulder pain M25.512 and Hypotensive episode I95.9 [place] [id number] [place] [address] 43561- 4250 Aug, Coronary artery disease involving [place] coronary artery of [place] heart without angina pectoris I25.10 [facility] [id number] [place] [address] 67603- 8502 07 Aug, 2017 Type 2 diabetes mellitus with unspecified complications E11.8 [facility] [id number] [place] [address] 57524- 7355 Jul, Callus of foot L84 [facility] [id number] [place] [address] 50452- 3702 Jul, [facility] [id number] [place] [address] 78584- 8152 Jul, Callus of foot L84 ; Episodic cluster headache, not intractable G44.019 ; Type 2 diabetes mellitus with unspecified complications E11.8 and Parkinsons disease G20 [facility] [id number] [place] [address] 17926- 5249 Jul, [place] [id number] [place] [address] 50050- 8006 Jul, [facility] [id number] [place] [address] 85439- 1768 Jun, Type 2 diabetes mellitus with unspecified complications E11.8 ; Unsteady gait R26.81 ; Forgetfulness R68.89 and Hallucinations R44.3 [place] [id number] [place] [address] 84193- 5358 Jun, [place] [id number] [place] [address] 16590- 7420 Jun, Left shoulder pain M25.512 [facility] [id number] [place] [address] 70212- 8950 May, Hypernatremia E87.0 and Polydipsia R63.1 [facility] [id number] [place] [address] 51832- 4054 08 May, 2017 Hypernatremia E87.0 and Polydipsia R63.1 [place] [address] 19025- 5082 08 May, 2017 Hypoglycemia E16.2 ; Dysuria R30.0 ; Unsteadiness on feet R26.81 ; Forgetfulness R68.89 ; Type 2 diabetes mellitus with unspecified complications E11.8 and Yeast infection involving the vagina and surrounding area B37.3 [place] [id number] [place] [address] 56591- 8620 May, Acute cystitis without hematuria N30.00 [facility] [address] 27009 -0838 Apr, Dysuria R30.0 and Acute cystitis without hematuria N30.00 [place] [address] 48382- 4378 Apr, Hypernatremia E87.0 and Polydipsia R63.1 [facility] [id number] [place] [address] 96348- 7904 Apr, Vertigo R42 and Type 2 diabetes mellitus with unspecified complications E11.8 [place] [id number] [place] [address] 25306- 6840 Mar, [facility] [address] 21491- 8563 19 Mar, 2017 Left shoulder pain M25.512 [facility] [id number] [place] [address] 90639- 2833 13 Mar, 2017 Vertigo R42 [place] [address] 01200- 4777 12 Mar, 2017 Polydipsia R63.1 [place] [id number] [place] [address] 36046- 1743 12 Mar, 2017 Polydipsia R63.1 [place] [id number] [place] [address] 57932- 6201 11 Mar, 2017 Vertigo R42 [place] [address] 84640- 1510 07 Mar, 2017 Type 2 diabetes mellitus with unspecified complications E11.8 ; Vertigo R42 ; Polydipsia R63.1 ; Polyuria R35.8 ; Hypothyroidism ( acquired) E03.9 ; Abnormal urinalysis R82.90 and Dysthymia F34.1 [place] [id number] [place] [address] 75778- 0942 05 Mar, 2017 Coronary artery disease of [place] artery with stable angina pectoris, unspecified whether [place] or transplanted heart I25.118 ; Systolic CHF, chronic I50.22 ; Hyperlipemia, mixed E78.2 and Essential hypertension I10 [facility] [address] [id number] Feb, Dental caries K02.9 [place] [id number] [place] [address] 68406- 5583 Feb, Type 2 diabetes mellitus with diabetic neuropathy, unspecified E11.40 [place] [id number] [place] [address] 70684- 3639 Dec, Left shoulder pain M25.512 [place] [id number] [place] [address] 99279- 6750 Dec, [place] [address] 16952- 4431 Dec, Type 2 diabetes mellitus with unspecified complications E11.8 [facility] [address] [id number] Dec, Dental examination Z01.20 [place] [id number] [place] [address] 73660- 6424 Dec, Type 2 diabetes mellitus with diabetic neuropathy, unspecified E11.40 [facility] [id number] [place] [address] 97733- 7951 Dec, [place] [id number] [place] [address] 66580- 0454 Dec, Type 2 diabetes mellitus with diabetic neuropathy, unspecified E11.40 [facility] [id number] [place] [address] 21673- 3586 November, Left shoulder pain M25.512 [place] [id number] [place] [address] 12729- 8613 November, [place] [id number] [place] [address] 44889- 6340 November, Type 2 diabetes mellitus with unspecified complications E11.8 and Dysuria R30.0 [place] [id number] [place] [address] 92030- 9628 Oct, Left shoulder pain M25.512 [place] [id number] [place] [address] 24235- 7158 Sep, Left shoulder pain M25.512 [place] [id number] [place] [address] 02138- 5429 Sep, Pre-op testing Z01.818 [place] [id number] [place] [address] 63349- 4291 Sep, Pre-op testing Z01.818 [place] [id number] [place] [address] 88174- 6382 Sep, Pre-op testing Z01.818 [place] [id number] [place] [address] 57712- 9598 Sep, Pre-op testing Z01.818 and Mouth pain K13.79 [place] [address] 83792- 0265 Sep, Left shoulder pain M25.512 [place] [address] 56012- 2718 08 Aug, 2016 Other eczema L30.8 [place] [address] 30683- 5229 06 Aug, 2016 PVD (peripheral vascular disease) I73.9 ; Type 2 diabetes mellitus with unspecified complications E11.8 ; Acute cystitis with hematuria N30.01 ; Other eczema L30.8 ; Dysuria R30.0 and Left shoulder pain M25.512 [facility] [address] 49093 -9777 Jul, Otalgia of right ear H92.01 and Blood in ear canal, right H92.21 [place] [address] 14721- 7163 Jul, Arthralgia, unspecified joint M25.50 ; PVD (peripheral vascular disease) I73.9 and Neuropathy G62.9 [place] [address] 79306- 0000 Jul, [place] [address] 86451- 2248 Jun, Medicare annual wellness visit, initial Z00.00 ; Cervicalgia M54.2 ; Radiculopathy of cervical region M54.12 ; Encounter for immunization Z23 ; Type 2 diabetes mellitus with unspecified complications E11.8 and Essential hypertension I10 [place] [id number] [place] [address] 59715- 8615 Jun, [place] [address] 74713- 9280 14 May, 2016 Hypothyroidism (acquired) E03.9 [place] [address] 94655- 3078 May, Dysuria R30.0 ; Essential hypertension I10 ; Hypothyroidism (acquired) E03.9 and PVD (peripheral vascular disease) I73.9 [facility] [id number] [place] [address] 10323 -8282 May, Burning with urination R30.0 and Acute cystitis with hematuria N30.01 [facility] [id number] [place] [address] 70970- 3017 May, Dental examination Z01.20 [facility] [id number] [place] [address] 56163- 0767 May, Hypothyroidism (acquired) E03.9 [facility] [id number] [place] [address] 82177- 0976 Feb, [facility] [id number] [place] [address] 86135- 1294 Feb, 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 ; PVD ( peripheral vascular disease) I73.9 ; Type 2 diabetes mellitus with unspecified complications E11.8 and Essential hypertension I10 [facility] [id number] [place] [address] 27368- 5316 Jan, [facility] [id number] [place] [address] 22831- 4323 Jan, Hypothyroidism (acquired) E03.9 [facility] [id number] [place] [address] 14062- 4139 Jan, [facility] [id number] [place] [address] 98641- 2936 Jan, [facility] [id number] [place] [address] 05495- 0660 Jan, Type 2 diabetes mellitus with unspecified complications E11.8 ; 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 and Essential ( primary) hypertension I10 [facility] [id number] [place] [address] 35087- 8946 Jan, Type 2 diabetes mellitus with unspecified complications E11.8 ; 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 ; Essential hypertension I10 and PVD (peripheral vascular disease) I73.9 [place] [id number] [place] [address] 23988- 4823 Jan, [facility] [id number] [place] [address] 56871- 2613 Jan, [facility] [id number] [place] [address] 60162- 4022 Jan, [place] [id number] [place] [address] 58657- 1147 Jan, Weakness R53.1 ; Fatigue, unspecified type R53.83 ; PVD ( peripheral vascular disease) I73.9 ; Acute osteomyelitis of other site M86.18 ; Type 2 diabetes mellitus with diabetic neuropathy, unspecified E11.40 and ict managers 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.4 [place] [id number] [place] [address] 49176- 1511 Dec, [place] [id number] [place] [address] 88192- 4260 Dec, Type 2 diabetes mellitus with unspecified complications E11.8 [place] [id number] [place] [address] 24253- 2412 Dec, [place] [id number] [place] [address] 62752- 6012 Dec, Pressure ulcer, unspecified pressure ulcer stage L89.90 and Type 2 diabetes mellitus with unspecified complications E11.8 [facility] [id number] [place] [address] 94697 -1838 Dec, Toe infection L08.9 [place] [id number] [place] [address] 98987- 5450 November, Dental caries K02.9 [facility] [id number] [place] [address] 87652- 0504 November, [place] [id number] [place] [address]- 3191 November, Dental examination Z01.20 [place] [id number] [place] [address] 49790- 2953 Sep, Lipoma of torso D17.1 and Thoracic neuritis M54.14 [facility] [id number] [place] [address] 37003- 9165 Sep, [facility] [id number] [place] [address] 32445- 5214 Aug, [facility] [id number] [place] [address] 58659 -8371 Jul, Dysuria R30.0 and UTI (urinary tract infection) N39.0 [place] [id number] [place] [address] 55420- 5154 Jun, Left shoulder pain M25.512 [place] [id number] [place] [address] 52183- 3206 May, Shoulder pain, left M25.512 [place] [id number] [place] [address] 00362- 0706 May, [facility] [id number] [place] [address] 40855- 9164 May, [place] [id number] [place] [address] 36290- 9661 May, Left shoulder pain M25.512 [facility] [id number] [place] [address] 05805- 9964 May, [facility] [id number] [place] [address] 45729- 5800 Apr, Encounter for immunization Z23 [facility] [id number] [place] [address] 04521- 8343 08 Apr, 2015 Urinary tract infection, site not specified N39.0 ; Hypotension, unspecified I95.9 ; Type 2 diabetes mellitus with unspecified complications E11.8 and Generalized edema R60.1 [facility] [id number] [place] [address] 59015- 0518 Apr, [facility] [id number] [place] [address] 30102- 9806 Mar, Diabetes with other specified manifestations, type II or unspecified type, not stated as uncontrolled 250.80 [facility] [address] 173379- 2301 Feb, Gout 274.9 and Diabetes 250.00 [facility] [id number] [place] [address] 89280- 9100 Jan, [facility] [id number] [place] [address] 21566- 7916 November, CAD (coronary artery disease) 414.00 and CHF (congestive heart failure) 428.0 [facility] [id number] [place] [address] 83440- 2637 Oct, [facility] [id number] [place] [address] 28489- 2271 Oct, [facility] [id number] [place] [address] 92990- 3057 Oct, [facility] [id number] [place] [address] 52760- 1200 Sep, [facility] [id number] [place] [address] 55965- 6921 Sep, [facility] [id number] [place] [address] 21880- 5253 Sep, [facility] [id number] [place] [address] 630404- 3751 Sep, [facility] [id number] [place] [address] 038251- 4537 Aug, [facility] [id number] [place] [address] 72985- 4563 Aug, [facility] [place] [facility] [address] [id number] [place] [address]- 9834 Aug, [facility] [place] [facility] [address] [id number] [place] [address]- 1346 Aug, 2014 [facility] [place] [facility] [address] [id number] [place] [address]- 0867 Aug, 2014 [facility] [place] [facility] [address] [id number] [place] [address]- 5380 Aug, 2014 [facility] [place] [facility] [address] [id number] [place] [address]- 4971 Aug, [facility] [place] [facility] [address] [id number] [place] [address]- 7620 Aug, [facility] [place] [facility] [address] [facility] [id number] [place] [address]- 4771 Jul, [facility] [place] [facility] [address] [id number] [place] [address]- 4241 Jul, [facility] [place] [facility] [address] [id number] [place] [address]- 1286 Jul, [facility] [place] [facility] [address] [facility] [id number] [place] [address]- 4693 Jul, [facility] [place] [facility] [address] [id number] [place] [address]- 3772 Jul, [facility] [place] [facility] [address] [id number], [place] [address]- 8340 Jul, [facility] [place] [facility] [address] [id number], [place] [address]- 1585 Jul, [facility] [place] [facility] [address] [id number], [place] [address]- 3338 Jul, [facility] [place] [facility] [address] [facility] [id number], [place] [address]- 7771 Jul, [facility] [place] [facility] [address] [id number] [place] [address]- 0749 Jul, [facility] [place] [facility] [address] [id number] [place] [address]- 7884 Jun, [facility] [place] [facility] [address] [id number] [place] [address]- 7719 Jun, [facility] [place] [facility] [address] [id number] [place] [address]- 1590 Jun, [facility] [place] [facility] [address] [id number] [place] [address]- 2570 Jun, [facility] [place] [facility] [address] [id number] [place] 6437 Jun, [facility] [place] [facility] [address] [id number] [place]- 0804 Jun, [facility] [place] [facility] [address] [id number] [place] [address]- 9115 Jun, [facility] [place] [facility] [address] [id number] [place] 5252 Jun, [facility] [place] [facility] [address] [id number] [place] [address]- 7575 Jun, [facility] [place] [facility] [address] [id number] [place] [address]- 6118 Jun, [facility] [place] [facility] [address] [id number] [place] [address]- 6654 May, [facility] [place] [facility] [address] [id number] [place] [address]- 7404 May, [facility] [place] [facility] [address] [id number] [place] [address]- 5773 Mar, [facility] [place] [facility] [address] [id number] [place] [address]- 1456 18 Mar, 2014 [facility] [place] [facility] [address] [id number] [place] [address]- 4887 Mar, [facility] [place] [facility] [address] [id number] [place] [address]- 9361 Mar, [facility] [place] [facility] [address] [id number] [place] [address]- 2710 Feb, [facility] [place] [facility] [address] [id number] [place] [address]- 4124 Feb, [facility] [place] [facility] [address] [id number] [place] [address]- 4019 Feb, [facility] [place] [facility] [address] [id number] [place] [address] Jan, [facility] [place] [facility] [address] [id number] [place] [address] Jan, [facility] [place] [facility] [address] [id number] [place] [address] Jan, [facility] [place] [facility] [address] [id number] [place] [address] Jan, [facility] [place] [facility] [address] [id number] [place] [address] Jan, [facility] [place] [facility] [address] [id number] [place] [address] Jan, [facility] [place] [facility] [address] [id number] [place] [address] Jan, [facility] [place] [facility] [address] [id number] [place] [address] Jan, [facility] [place] [facility] [address] [id number] [place] [address] Jan, [facility] [place] [facility] [address] [id number] [place] [address] Jan, [facility] [place] [facility] [address] [id number] [place] [address] Dec, [facility] [place] [facility] [address] [id number] [place] [address] Dec, [facility] [address] [id number] [place] [address] November, [facility] [place] [facility] [address] [id number] [place] [address] November, [facility] [place] [facility] [address] [id number] [place] [address] November, [facility] [place] [facility] [address] [id number] [place] [address] November, [facility] [place] [facility] [address] [id number] [place] [address] November, [facility] [place] [facility] [address] [id number] [place] [address] November, [facility] [address] [id number] [place] [address] November, [facility] [address] [id number] [place] [address] Oct, [facility] [place] [facility] [address] [id number] [place] [address] Oct, [facility] [address] [id number] [place] [address] Sep, [facility] [place] [facility] [address] [id number] [place] [address] Sep, [facility] [place] [facility] [address] [id number] [place] [address] Sep, [facility] [place] [facility] [address] [id number] [place] [address] Sep, [facility] [place] [facility] [address] [id number] [place] [address] Sep, [facility] [place] [facility] [address] [id number] [place] [address] Sep, [facility] [place] [facility] [address] [id number] [place] [address] Sep, [facility] [place] [facility] [address] [id number] [place] [address] Sep, [facility] [place] [facility] [address] [id number] [place] [address] Sep, [facility] [place] [facility] [address] [id number] [place] [address] 8[address] Sep, [facility] [place] [facility] [address] [id number] [place] [address] 7227 Aug, [facility] [place] [facility] [address] [id number] [place] [address] 6201 Aug, [facility] [place] [facility] [address] [id number] [place] [address] 75[address] Jul, [facility] [place] [facility] [address] [id number] [place] [address] 0377 Jul, [facility] [place] [facility] [address] [id number] [place] [address] 1550 Jul, [facility] [place] [facility] [address] [id number] [place] [address] 9994 Jul, [facility] [place] [facility] [address] [id number] [place] [address] 6986 Jul, [facility] [place] [facility] [address] [id number], [place] [address] Jul, [facility] [place] [facility] [address] [id number] [place] [address] 2157 Jun, [facility] [place] [facility] [address] [id number] [place] [address]- 7698 Jun, [facility] [place] [facility] [address] [id number] [address] Jun, [facility] [place] [facility] [address] [id number][place] [address] 96[address] Jun, [facility] [place] [facility] [address] [id number] [place] [address] 1627 May, [facility] [place] [facility] [address] [id number] [place] [address]- 0195 14 May, 2013 [facility] [place] [facility] [address] [id number] [place] [address]- 7645 May, [facility] [place] [facility] [address] [id number] [place] [address]- 2047 May, [facility] [place] [facility] [address] [id number] [place] [address]- 6844 May, [facility] [place] [facility] [address] [id number] [place] [address]- 6925 Apr, [facility] [place] [facility] [address] [id number] [place] [address]- 7104 Apr, [facility] [place] [facility] [address] [id number] [place] [address]- 4775 Apr, [facility] [place] [facility] [address] [id number] [place] [address]- 5545 Apr, [facility] [place] [facility] [address] [id number] [place] [address]- 9589 Apr, [facility] [place] [facility] [address] [id number] [place] [address]- 6495 Apr, [facility] [place] [facility] [address] [id number], [place] [address]- 4434 Apr, [facility] [place] [facility] [address] [id number] [place] [address]- 6230 Apr, [facility] [place] [facility] [address] [id number] [place] [address]- 9012 Apr, [facility] [place] [facility] [address] [id number] [place] [address]- 6062 Apr, [facility] [place] [facility] [address] [id number] [place] [address]- 5167 Apr, [facility] [place] [facility] [address] [id number] [place] [address]- 9885 Apr, [facility] [place] [facility] [address] [id number] [place] [address] 2546 Mar, [facility] [place] [facility] [address] [id number] [place] [address]- 3954 Mar, [facility] [place] [facility] [address] [id number] [place] [address] 2549 Feb, [facility] [place] [facility] [address] [id number] [place] [address]- 5986 Jan, [facility] [place] [facility] [address] [id number] [place] [address]- 4168 Jan, [facility] [place] [facility] [address] [id number] [place] [address]- 6490 Jan, [facility] [place] [facility] [address] [id number] [place] [address]- 0486 Jan, [facility] [place] [facility] [address] [id number] [place] [address]- 7325 Dec, [facility] [place] [facility] [address] [id number] [place] [address]- 0902 Dec, [facility] [place] [facility] [address] [id number] [place] [address]- 4629 Dec, [facility] [place] [facility] [address] [id number] [place] [address]- 4238 Dec, [facility] [place] [facility] [address] [id number] [place] [address]- 8630 Dec, [facility] [place] [facility] [address] [id number] [place] [address]- 2546 Dec, [facility] [place] [facility] [address] [id number] [place] [address]- 6945 Dec, [facility] [address] [id number] [place] [address]- 9151 November, [facility] [place] [facility] [address] [id number] [place] [address]- 1367 November, [facility] [place] [facility] [address] [id number] [place] [address] November, [facility] [place] [facility] [address] [id number] [place] [address]- 5872 Oct, [facility] [place] [facility] [address] [id number] [place] [address]- 9788 Oct, [facility] [place] [facility] [address] [id number] [place] [address]- 7407 Oct, [facility] [place] [facility] [address] [id number] [place] [address]- 0427 Oct, [facility] [place] [facility] [address] [id number] [place] [address]- 3350 Oct, [facility] [place] [facility] [address] [id number] [place] [address]- 2341 Sep, [facility] [place] [facility] [address] [id number] [place] [address]- 5474 Sep, [facility] [place] [facility] [address] [id number] [place] [address]- 6900 Sep, [facility] [place] [facility] [address] [id number], [place] [address]- 8251 Sep, [facility] [place] [facility] [address] [id number] [place] [address] 4240 Aug, [facility] [place] [facility] [address] [id number], [place] [address] 8630 Aug, [facility] [place] [facility] [address] [id number] [place] [address] 3512 Aug, [facility] [place] [facility] [address] [id number] [place] [address]- 9101 Aug, [facility] [address] [id number] [place] [address]- 2014 Jul, [facility] [place] [facility] [address] [id number] [place] [address]- 7490 Jul, [facility] [address] [id number] [place] [address]- 0807 Jun, [facility] [place] [facility] [address] [id number] [place] [address]- 3672 Jun, [facility] [address] [id number] [place] [address]- 4387 Jun, [facility] [place] [facility] [address] [id number] [place] [address]- 3594 Jun, [facility] [place] [facility] [address] [facility] [id number] [place] [address]- 3422 May, [facility] [place] [facility] [address] [id number] [place] [address]- 7362 May, [facility] [place] [facility] [address] [facility] [id number] [place] [address]- 8960 May, [facility] [address] [facility] [id number] [place] [address]- 7215 May, [facility] [place] [facility] [address] [facility] [id number] [place] [address]- 8665 Apr, [facility] [place] [facility] [address] [id number] [place] [address]- 0217 Apr, [facility] [place] [facility] [address] [id number] [place] [address]- 8532 Apr, [facility] [place] [facility] [address] [facility] [id number] [place] [address]- 3457 Apr, [facility] [place] [facility] [address] [facility] [id number] [place] [address]- 3830 Apr, [facility] [place] [facility] [address] [id number] [place] [address]- 9440 Apr, [facility] [place] [facility] [address] [id number] [place] [address]- 2643 Apr, [facility] [place] [facility] [address] [id number] [place] [address]- 3750 Apr, [facility] [place] [facility] [address] [id number] [place] [address]- 4406 Apr, [facility] [place] [facility] [address] [id number] [place] [address]- 6276 Apr, [facility] [place] [facility] [address] [id number] [place] [address]- 8216 Feb, [facility] [place] [facility] [address] [id number] [place] [address]- 5809 Feb, [facility] [place] [facility] [address] [id number] [place] [address]- 0111 Jan, [facility] [place] [facility] [address] [id number] [place] [address]- 2067 Jan, [facility] [place] [facility] [address] [id number] [place] [address]- 1105 Jan, [facility] [place] [facility] [address] [id number] [place] [address]- 1219 Jan, [facility] [place] [facility] [address] [id number], [place] [address]- 1422 Jan, [facility] [place] [facility] [address] [id number] [place] [address]- 3693 Jan, [facility] [place] [facility] [address] [id number] [place] [address]- 2582 Dec, [facility] [place] [facility] [address] [id number] [place] [address]- 0046 November, [facility] [place] [facility] [address] [id number], [place] [address]- 7799 November, [facility] [address] [id number] [place] [address]- 7835 November, [facility] [place] [facility] [address] [id number] [place] [address]- 1806 Sep, [facility] [address] [id number] [place] [address]- 5496 Sep, [facility] [place] [facility] [address] [id number] [place] [address]- 3099 Sep, [facility] [address] [id number] [place] [address]- 6936 Sep, [facility] [address] [id number] [place] [address]- 8592 Sep, [facility] [address] [facility] [id number] [place] [address]- 5988 Sep, [facility] [place] [facility] [address] [id number] [place] [address]- 9034 Aug, [facility] [address] [id number] [place] [address]- 8539 Aug, [facility] [address] [id number] [place] [address]- 9953 Aug, [facility] [address] [id number] [place] [address]- 7342 Jul, [facility] [place] [facility] [address] [id number] [place] [address]- 5176 Jul, [facility] [place] [facility] [address] [id number] [place] [address]- 4200 Jul, [facility] [place] [facility] [address] [id number] [place] [address]- 6636 Jul, [facility] [place] [facility] [address] [facility] [id number] [place] [address]- 4490 Jun, [facility] [place] [facility] [address] [id number] [place] [address]- 1264 08 Jun, 2011 [facility] [place] [facility] [address] [id number] [place] [address]- 6156 Jun, [facility] [place] [facility] [address] [id number] [place] [address]- 2946 Jun, [facility] [place] [facility] [address] [id number] [place] [address]- 8816 Jun, [facility] [place] [facility] [address] [id number] [place] [address]- 0907 Jun, [facility] [place] [facility] [address] [id number] [place] [address]- 3744 May, [facility] [place] [facility] [address] [id number] [place] [address]- 0282 May, [facility] [place] [facility] [address] [id number] [place] [address]- 4773 May, [facility] [place] [facility] [address] [id number] [place] [address]- 6863 Apr, [facility] [place] [facility] [address] [id number] [place] [address]- 0875 Jan, [facility] [place] [facility] [address] [id number] [place] [address]- 3080 Jun, [facility] [place] [facility] [address] [id number] [place] [address]- 2982 Jun, [facility] [place] [facility] [address] [id number] [place] [address] 2546 15 Jun, 2010 [facility] [place] [facility] [address] [id number] [place] [address] 2546 Jun, [facility] [place] [facility] [address] [id number] [place] [address]- 2548 15 Jun, 2010 [facility] [place] [facility] [address] [id number] [place] [address]- 2428 13 Jun, 2010 [facility] [address] [id number] [place] [address]- 8866 13 Jun, 2010 [facility] [place] [facility] [address] [id number] [place] [address]- 8076 21 Apr, 2010 [facility] [address] [facility] [id number] [place] [address] 2546 17 Feb, 2010 [facility] [place] [facility] [address] [id number] [place] [address] 2546 15 Aug, 2009 [facility] [address] [id number] [place] [address]- 6986 18 Jul, 2009 [facility] [place] [facility] [address] [id number] [place] [address] 2546 11 Jul, 2009 [facility] [address] [id number] [place] [address]- 8878 29 Jun, 2009 [facility] [place] [facility] [address] [id number] [place] [address]- 0736 28 Jun, 2009 [facility] [address] [id number] [place] [address]- 6855 28 Jun, 2009 [facility] [place] [facility] [address] [id number] [place] [address]- 2007 22 Jun, 2009 [facility] [address] [id number], [place] [address]- 9353 16 Jun, 2009 [facility] [place] [facility] [address] [id number], [place] [address] 2546 09 Jun, 2009 [facility] [place] [facility] [address] [id number] [place] [address] 2546 Jun, [facility] [place] [facility] [address] [facility] [id number], [place] [address] 2549 30 May, 2009 [facility] [place] [facility] [address] [facility] [id number] [place] [address] 2546 May, [facility] [place] [facility] [address] [id number] [address]- 7318 May, [facility] [id number] [address] 0791 May, [facility] [id number], [place] [address]- 8693 May, [facility] [id number] 6321 May, [facility] [id number], [place] [address]- 7317 May, [facility] [id number] [place] [address] 6[address]- 4552 Apr, [facility] [id number] 3096 Apr, [facility] [id number], [place] [address]- 4444 Jan, [facility] [address] [id number] [address]- 7444 Oct, IMMUNIZATIONS No Known Immunizations SOCIAL HISTORY Never Assessed REASON FOR VISIT Workup for DI PLAN OF CARE VITAL SIGNS MEDICATIONS Unknown [...]
--- OUTSIDE RECORDS SUMMARY | 2018-11-09 13:19 | XMS REPORT ---
Author Author PRABHA HILL [facility] Address [address] [place] [address] Care Team Providers Care Manufacturer Agent Name Role Phone PRABHA HILL Unavailable PROBLEMS Type Condition ICD9-CM Code WUM44-FE Code Onset Dates Condition Status SNOMED Code Problem Hyperlipemia, mixed E78.2 Active 841305674 Problem Hypoglycemia E16.2 Active 455649944 Problem Hypernatremia E87.0 Active 17958219 Problem Neurogenic orthostatic hypotension G90.3 Active 436190121 Problem Dementia with Lewy bodies G31.83 Active 421158589 Problem Mixed stress and urge urinary incontinence N39.46 Active 384493545 Problem Coronary artery disease involving [place] coronary artery of [place] heart without angina pectoris I25.10 Active 7960453044808 Problem Unsteady gait R26.81 Active 75016884 Problem Hallucinations R44.3 Active 1452560 Problem Parkinsons disease G20 Active 17889052 Problem Episodic cluster headache, not intractable G44.019 Active 882388739 Problem Type 2 diabetes mellitus with unspecified complications E11.8 Active 47659271 Problem PVD (peripheral vascular disease) I73.9 Active 105519818 Problem Dementia in other diseases classified elsewhere without behavioral disturbance F02.80 Active 199574629 Problem Dysuria R30.0 Active 73532481 Problem Hypothyroidism (acquired) E03.9 Active 344146706 Problem Neuropathy G62.9 Active 230893175 Problem 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 Active 794896354 Problem Dysthymia F34.1 Active 54571613 Problem Essential hypertension I10 Active 85815168 Problem Polydipsia R63.1 Active 26208551 ALLERGIES No Information ENCOUNTERS Encounter Location Date Diagnosis [facility] [address] [facility] [id number] [address] Dec, [facility] [id number] [place] [address] 41352 -3616 Oct, [facility] [id number] [place] [address] 47687- 8201 Oct, Parkinsons disease G20 [facility] [id number] [place] [address] 11480 -9148 18 Oct, 2017 Acute cystitis without hematuria N30.00 and Viral upper respiratory tract infection J06.9 [facility] [id number] [place] [address] 95099- 0270 Oct, [facility] [id number] [place] [address] 64361- 8001 Oct, Type 2 diabetes mellitus with unspecified complications E11.8 [place] [id number] [place] [address] 80404- 1865 16 Oct, 2017 Left shoulder pain M25.512 [place] [id number] [place] [address] 72801- 5862 16 Oct, 2017 Type 2 diabetes mellitus with unspecified complications E11.8 ; Dysuria R30.0 and Neurogenic orthostatic hypotension G90.3 [place] [id number] [place] [address] 73121- 3996 19 Sep, 2017 Left shoulder pain M25.512 [place] [id number] [place] [address] 03026- 7288 12 Sep, 2017 Medicare annual wellness visit, [...] Mixed stress and urge urinary incontinence N39.46 [facility] [id number] [place] [address] 74891- 7519 Aug, Parkinsons disease G20 [place] [id number] [place] [address] 02686- 8866 Aug, Type 2 diabetes mellitus with unspecified complications E11.8 ; Left shoulder pain M25.512 and Hypotensive episode I95.9 [place] [id number] [place] [address] 70056- 4718 Aug, Coronary artery disease involving [place] coronary artery of [place] heart without angina pectoris I25.10 [place] [id number] [place] [address] 32389- 1066 07 Aug, 2017 Type 2 diabetes mellitus with unspecified complications E11.8 [place] [id number] [place] [address] 18988- 2132 Jul, Callus of foot L84 [place] [id number] [place] [address] 75889- 2706 Jul, [place] [id number] [place] [address] 24235- 3476 Jul, Callus of foot L84 ; Episodic cluster headache, not intractable G44.019 ; Type 2 diabetes mellitus with unspecified complications E11.8 and Parkinsons disease G20 [place] [id number] [place] [address] 81663- 2834 Jul, [place] [id number] [place] [address] 29151- 5842 Jul, [place] [id number] [place] [address] 87617- 2808 Jun, Type 2 diabetes mellitus with unspecified complications E11.8 ; Unsteady gait R26.81 ; Forgetfulness R68.89 and Hallucinations R44.3 [place] [id number] [place] [address] 35570- 7335 Jun, [place] [id number] [place] [address] 33957- 8772 Jun, Left shoulder pain M25.512 [facility] [id number] [place] [address] 27582- 7663 May, Hypernatremia E87.0 and Polydipsia R63.1 [facility] [id number] [place] [address] 45189- 9668 08 May, 2017 Hypernatremia E87.0 and Polydipsia R63.1 [place] [address] 63328- 5208 08 May, 2017 Hypoglycemia E16.2 ; Dysuria R30.0 ; Unsteadiness on feet R26.81 ; Forgetfulness R68.89 ; Type 2 diabetes mellitus with unspecified complications E11.8 and Yeast infection involving the vagina and surrounding area B37.3 [place] [id number] [place] [address] 25659- 4355 May, Acute cystitis without hematuria N30.00 [facility] [address] 03313 -2435 Apr, Dysuria R30.0 and Acute cystitis without hematuria N30.00 [place] [address] 21690- 0923 Apr, Hypernatremia E87.0 and Polydipsia R63.1 [facility] [id number] [place] [address] 28423- 3624 Apr, Vertigo R42 and Type 2 diabetes mellitus with unspecified complications E11.8 [place] [id number] [place] [address] 91423- 6409 Mar, [place] [address] 95962- 2001 19 Mar, 2017 Left shoulder pain M25.512 [facility] [id number] [place] [address] 69950- 2648 13 Mar, 2017 Vertigo R42 [place] [address] 43759- 3401 12 Mar, 2017 Polydipsia R63.1 [place] [id number] [place] [address] 66357- 3049 12 Mar, 2017 Polydipsia R63.1 [place] [id number] [place] [address] 68338- 2481 11 Mar, 2017 Vertigo R42 [place] [address] 42245- 2793 07 Mar, 2017 Type 2 diabetes mellitus with unspecified complications E11.8 ; Vertigo R42 ; Polydipsia R63.1 ; Polyuria R35.8 ; Hypothyroidism ( acquired) E03.9 ; Abnormal urinalysis R82.90 and Dysthymia F34.1 [place] [id number] [place] [address] 24153- 8597 05 Mar, 2017 Coronary artery disease of [place] artery with stable angina pectoris, unspecified whether [place] or transplanted heart I25.118 ; Systolic CHF, chronic I50.22 ; Hyperlipemia, mixed E78.2 and Essential hypertension I10 [facility] [address] [id number] Feb, Dental caries K02.9 [place] [id number] [place] [address] 72214- 1285 Feb, Type 2 diabetes mellitus with diabetic neuropathy, unspecified E11.40 [place] [id number] [place] [address] 59120- 0284 Dec, Left shoulder pain M25.512 [place] [id number] [place] [address] 28119- 6128 Dec, [place] [address] 72837- 9379 Dec, Type 2 diabetes mellitus with unspecified complications E11.8 [facility] [address] [id number] Dec, Dental examination Z01.20 [place] [id number] [place] [address] 57442- 4083 Dec, Type 2 diabetes mellitus with diabetic neuropathy, unspecified E11.40 [facility] [id number] [place] [address] 92173- 4194 Dec, [place] [id number] [place] [address] 30512- 8937 Dec, Type 2 diabetes mellitus with diabetic neuropathy, unspecified E11.40 [facility] [id number] [place] [address] 89992- 2907 November, Left shoulder pain M25.512 [place] [id number] [place] [address] 62314- 7725 November, [place] [id number] [place] [address] 32607- 6187 November, Type 2 diabetes mellitus with unspecified complications E11.8 and Dysuria R30.0 [place] [id number] [place] [address] 45005- 9120 Oct, Left shoulder pain M25.512 [place] [id number] [place] [address] 98740- 6990 Sep, Left shoulder pain M25.512 [place] [id number] [place] [address] 01364- 5219 Sep, Pre-op testing Z01.818 [place] [id number] [place] [address] 62304- 0286 Sep, Pre-op testing Z01.818 [place] [id number] [place] [address] 20072- 2725 Sep, Pre-op testing Z01.818 [place] [id number] [place] [address] 89513- 0643 Sep, Pre-op testing Z01.818 and Mouth pain K13.79 [place] [address] 93971- 7644 Sep, Left shoulder pain M25.512 [place] [address] 79540- 8892 08 Aug, 2016 Other eczema L30.8 [place] [address] 82310- 0728 06 Aug, 2016 PVD (peripheral vascular disease) I73.9 ; Type 2 diabetes mellitus with unspecified complications E11.8 ; Acute cystitis with hematuria N30.01 ; Other eczema L30.8 ; Dysuria R30.0 and Left shoulder pain M25.512 [facility] [address] 27777 -6412 Jul, Otalgia of right ear H92.01 and Blood in ear canal, right H92.21 [place] [address] 49847- 3335 Jul, Arthralgia, unspecified joint M25.50 ; PVD (peripheral vascular disease) I73.9 and Neuropathy G62.9 [place] [address] 36675- 1302 Jul, [place] [address] 65943- 3906 Jun, Medicare annual wellness visit, initial Z00.00 ; Cervicalgia M54.2 ; Radiculopathy of cervical region M54.12 ; Encounter for immunization Z23 ; Type 2 diabetes mellitus with unspecified complications E11.8 and Essential hypertension I10 [place] [id number] [place] [address] 11213- 8672 Jun, [place] [address] 98120- 0493 14 May, 2016 Hypothyroidism (acquired) E03.9 [place] [address] 63754- 2929 May, Dysuria R30.0 ; Essential hypertension I10 ; Hypothyroidism (acquired) E03.9 and PVD (peripheral vascular disease) I73.9 [facility] [address] [place] [address] 98596 -5696 May, Burning with urination R30.0 and Acute cystitis with hematuria N30.01 [facility] [id number] [place] [address] 85973- 9010 May, Dental examination Z01.20 [facility] [id number] [place] [address] 41869- 9085 May, Hypothyroidism (acquired) E03.9 [facility] [id number] [place] [address] 34335- 6319 Feb, [facility] [id number] [place] [address] 50258- 1927 Feb, 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 ; PVD ( peripheral vascular disease) I73.9 ; Type 2 diabetes mellitus with unspecified complications E11.8 and Essential hypertension I10 [facility] [id number] [place] [address] 23317- 5848 Jan, [facility] [id number] [place] [address] 81448- 1307 Jan, Hypothyroidism (acquired) E03.9 [facility] [id number] [place] [address] 98781- 7737 Jan, [facility] [id number] [place] [address] 88238- 4838 Jan, [facility] [id number] [place] [address] 49102- 3704 Jan, Type 2 diabetes mellitus with unspecified complications E11.8 ; 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 and Essential ( primary) hypertension I10 [facility] [id number] [place] [address] 26600- 4509 Jan, Type 2 diabetes mellitus with unspecified complications E11.8 ; 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 ; Essential hypertension I10 and PVD (peripheral vascular disease) I73.9 [place] [id number] [place] [address] 33929- 9333 Jan, [facility] [id number] [place] [address] 19546- 6609 Jan, [facility] [id number] [place] [address] 07568- 8217 Jan, [place] [id number] [place] [address] 31295- 4985 Jan, Weakness R53.1 ; Fatigue, unspecified type R53.83 ; PVD ( peripheral vascular disease) I73.9 ; Acute osteomyelitis of other site M86.18 ; Type 2 diabetes mellitus with diabetic neuropathy, unspecified E11.40 and 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 [id number] [place] [address] 72490 -6315 Dec, Toe infection L08.9 [place] [id number] [place] [address] 73236- 0024 November, Dental caries K02.9 [facility] [id number] [place] [address] 78597- 2406 November, [place] [address] [id number] [place] [address]- 2640 November, Dental examination Z01.20 [place] [id number] [place] [address] 28240- 1414 Sep, Lipoma of torso D17.1 and Thoracic neuritis M54.14 [facility] [id number] [place] [address] 64144- 7585 Sep, [facility] [id number] [place] [address] 43767- 9107 Aug, [facility] [id number] [place] [address] 72323 -6356 Jul, Dysuria R30.0 and UTI (urinary tract infection) N39.0 [place] [id number] [place] [address] 42014- 2380 Jun, Left shoulder pain M25.512 [place] [id number] [place] [address] 51764- 9987 May, Shoulder pain, left M25.512 [place] [id number] [place] [address] 14713- 7414 May, [facility] [id number] [place] [address] 84338- 5765 May, [place] [id number] [place] [address] 61489- 3387 May, Left shoulder pain M25.512 [facility] [id number] [place] [address] 05276- 5829 May, [facility] [id number] [place] [address] 85191- 8358 Apr, Encounter for immunization Z23 [facility] [id number] [place] [address] 56212- 7046 08 Apr, 2015 Urinary tract infection, site not specified N39.0 ; Hypotension, unspecified I95.9 ; Type 2 diabetes mellitus with unspecified complications E11.8 and Generalized edema R60.1 [facility] [id number] [place] [address] 16970- 5435 Apr, [facility] [id number] [place] [address] 11300- 1416 Mar, Diabetes with other specified manifestations, type II or unspecified type, not stated as uncontrolled 250.80 [facility] [address] 303031- 2597 Feb, Gout 274.9 and Diabetes 250.00 [facility] [id number] [place] [address] 27593- 6388 Jan, [facility] [id number] [place] [address] 65083- 6517 November, CAD (coronary artery disease) 414.00 and CHF (congestive heart failure) 428.0 [facility] [id number] [place] [address] 18621- 9950 Oct, [facility] [id number] [place] [address] 63249- 3798 Oct, [facility] [id number] [place] [address] 50229- 1747 Oct, [facility] [id number] [place] [address] 16812- 0697 Sep, [facility] [id number] [place] [address] 05498- 2435 Sep, [facility] [id number] [place] [address] 10449- 3932 Sep, [facility] [id number] [place] [address] 716139- 6930 Sep, [facility] [id number] [place] [address] 239298- 0701 Aug, [facility] [id number] [place] [address] 44102- 1373 Aug, [facility] [place] [facility] [address] [id number] [place] [address]- 5469 Aug, [facility] [place] [facility] [address] [id number] [place] [address]- 6756 Aug, 2014 [facility] [place] [facility] [address] [id number] [place] [address]- 6020 Aug, 2014 [facility] [place] [facility] [address] [id number] [place] [address]- 7104 Aug, 2014 [facility] [place] [facility] [address] [id number] [place] [address]- 3471 Aug, [facility] [place] [facility] [address] [id number] [place] [address]- 3104 Aug, [facility] [place] [facility] [address] [facility] [id number] [place] [address]- 3232 Jul, [facility] [place] [facility] [address] [id number] [place] [address]- 4017 Jul, [facility] [place] [facility] [address] [id number] [place] [address]- 7736 Jul, [facility] [place] [facility] [address] [facility] [id number] [place] [address]- 3922 Jul, [facility] [place] [facility] [address] [id number] [place] [address]- 9176 Jul, [facility] [place] [facility] [address] [id number], [place] [address]- 6148 Jul, [facility] [place] [facility] [address] [id number], [place] [address]- 8524 Jul, [facility] [place] [facility] [address] [id number], [place] [address]- 4901 Jul, [facility] [place] [facility] [address] [facility] [id number], [place] [address]- 7354 Jul, [facility] [place] [facility] [address] [id number] [place] [address]- 0515 Jul, [facility] [place] [facility] [address] [id number] [place] [address]- 6767 Jun, [facility] [place] [facility] [address] [id number] [place] [address]- 9383 Jun, [facility] [place] [facility] [address] [id number] [place] [address]- 8303 Jun, [facility] [place] [facility] [address] [id number] [place] [address]- 8278 Jun, [facility] [place] [facility] [address] [id number] [place] 2703 Jun, [facility] [place] [facility] [address] [id number] [place] 7771 Jun, [facility] [place] [facility] [address] [id number] [place] [address]- 4627 Jun, [facility] [place] [facility] [address] [id number] [place] 5129 Jun, [facility] [place] [facility] [address] [id number] [place] [address]- 4171 Jun, [facility] [place] [facility] [address] [id number] [place] [address]- 5798 Jun, [facility] [place] [facility] [address] [id number] [place] [address]- 0025 May, [facility] [place] [facility] [address] [id number] [place] [address]- 1227 May, [facility] [place] [facility] [address] [id number] [place] [address]- 9971 Mar, [facility] [place] [facility] [address] [id number] [place] [address]- 8966 18 Mar, 2014 [facility] [place] [facility] [address] [id number] [place] [address]- 7456 Mar, [facility] [place] [facility] [address] [id number] [place] [address]- 0225 Mar, [facility] [place] [facility] [address] [id number] [place] [address]- 2420 Feb, [facility] [place] [facility] [address] [id number] [place] [address]- 8859 Feb, [facility] [place] [facility] [address] [id number] [place] [address]- 6565 Feb, [facility] [place] [facility] [address] [id number] [place] [address]- 7360 Jan, [facility] [place] [facility] [address] [id number] [place] [address] Jan, [facility] [place] [facility] [address] [id number] [place] [address] Jan, [facility] [place] [facility] [address] [id number] [place] [address] Jan, [facility] [place] [facility] [address] [id number] [place] [address] Jan, [facility] [place] [facility] [address] [id number] [place] [address] Jan, [facility] [place] [facility] [address] [id number] [place] [address] Jan, [facility] [place] [facility] [address] [id number] [place] [address] Jan, [facility] [place] [facility] [address] [id number] [place] [address] Jan, [facility] [place] [facility] [address] [id number] [place] [address] Jan, [facility] [place] [facility] [address] [id number] [place] [address] Dec, [facility] [place] [facility] [address] [id number] [place] [address] Dec, [facility] [address] [id number] [place] [address] November, [facility] [place] [facility] [address] [id number] [place] [address] November, [facility] [place] [facility] [address] [id number] [place] [address] November, [facility] [place] [facility] [address] [id number] [place] [address] November, [facility] [place] [facility] [address] [id number] [place] [address] November, [facility] [place] [facility] [address] [id number] [place] [address] November, [facility] [address] [id number] [place] [address] November, [facility] [address] [id number] [place] [address] Oct, [facility] [place] [facility] [address] [id number] [place] [address] Oct, [facility] [address] [id number] [place] [address] Sep, [facility] [place] [facility] [address] [id number] [place] [address] Sep, [facility] [place] [facility] [address] [id number] [place] [address] Sep, [facility] [place] [facility] [address] [id number] [place] [address] Sep, [facility] [place] [facility] [address] [id number] [place] [address] Sep, [facility] [place] [facility] [address] [id number] [place] [address] Sep, [facility] [place] [facility] [address] [id number] [place] [address] Sep, [facility] [place] [facility] [address] [id number] [place] [address] Sep, [facility] [place] [facility] [address] [id number] [place] [address] Sep, [facility] [place] [facility] [address] [id number] [place] [address] Sep, [facility] [place] [facility] [address] [id number] [place] [address] Aug, [facility] [place] [facility] [address] [id number] [place] [address] Aug, [facility] [place] [facility] [address] [id number] [place] [address] Jul, [facility] [place] [facility] [address] [id number] [place] [address] 14[address] Jul, [facility] [place] [facility] [address] [id number] [place] [address] 48[address] Jul, [facility] [place] [facility] [address] [id number] [place] [address] 77[address] Jul, [facility] [place] [facility] [address] [id number] [place] [address] Jul, [facility] [place] [facility] [address] [id number], [place] [address] Jul, [facility] [place] [facility] [address] [id number] [place] [address] 2576 Jun, [facility] [place] [facility] [address] [id number] [place] [address] 6[address] Jun, [facility] [place] [facility] [address] [id number] [address] Jun, [facility] [place] [facility] [address] [id number], [place] [address] Jun, [facility] [place] [facility] [address] [id number] [place] [address] 4433 May, [facility] [place] [facility] [address] [id number] [place] [address] 2736 14 May, 2013 [facility] [place] [facility] [address] [id number] [place] [address] 2605 May, [facility] [place] [facility] [address] [id number] [place] [address] 3116 May, [facility] [place] [facility] [address] [id number] [place] [address]- 7929 May, [facility] [place] [facility] [address] [id number] [place] [address]- 2787 Apr, [facility] [place] [facility] [address] [id number] [place] [address]- 8621 Apr, [facility] [place] [facility] [address] [id number] [place] [address]- 0272 Apr, [facility] [place] [facility] [address] [id number] [place] [address]- 7142 Apr, [facility] [place] [facility] [address] [id number] [place] [address]- 8151 Apr, [facility] [place] [facility] [address] [id number] [place] [address]- 8890 Apr, [facility] [place] [facility] [address] [id number], [place] [address] Apr, [facility] [place] [facility] [address] [id number] [place] [address]- 7197 Apr, [facility] [place] [facility] [address] [id number] [place] [address]- 1721 Apr, [facility] [place] [facility] [address] [id number] [place] [address]- 0014 Apr, [facility] [place] [facility] [address] [id number] [place] [address]- 7455 Apr, [facility] [place] [facility] [address] [id number] [place] [address]- 2818 Apr, [facility] [place] [facility] [address] [id number] [place] [address] 2546 Mar, [facility] [place] [facility] [address] [id number] [place] [address]- 4466 Mar, [facility] [place] [facility] [address] [id number] [place] [address] 2544 Feb, [facility] [place] [facility] [address] [id number] [place] [address]- 1117 Jan, [facility] [place] [facility] [address] [id number] [place] [address]- 0050 Jan, [facility] [place] [facility] [address] [id number] [place] [address]- 6413 Jan, [facility] [place] [facility] [address] [id number] [place] [address]- 9363 Jan, [facility] [place] [facility] [address] [id number] [place] [address]- 8047 Dec, [facility] [place] [facility] [address] [id number] [place] [address]- 9551 Dec, [facility] [place] [facility] [address] [id number] [place] [address]- 4514 Dec, [facility] [place] [facility] [address] [id number] [place] [address]- 9446 Dec, [facility] [place] [facility] [address] [id number] [place] [address]- 5217 Dec, [facility] [place] [facility] [address] [id number] [place] [address]- 2546 Dec, [facility] [place] [facility] [address] [id number] [place] [address]- 0695 Dec, [facility] [address] [id number] [place] [address]- 6418 November, [facility] [place] [facility] [address] [id number] [place] [address]- 7902 November, [facility] [place] [facility] [address] [id number] [place] [address] November, [facility] [place] [facility] [address] [id number] [place] [address]- 0925 Oct, [facility] [place] [facility] [address] [id number] [place] [address]- 6488 Oct, [facility] [place] [facility] [address] [id number] [place] [address]- 7745 Oct, [facility] [place] [facility] [address] [id number] [place] [address]- 0480 Oct, [facility] [place] [facility] [address] [id number] [place] [address]- 0255 Oct, [facility] [place] [facility] [address] [id number] [place] [address]- 7658 Sep, [facility] [place] [facility] [address] [id number] [place] [address]- 1372 Sep, [facility] [place] [facility] [address] [id number] [place] [address]- 0757 Sep, [facility] [place] [facility] [address] [id number], [place] [address] Sep, [facility] [place] [facility] [address] [id number] [place] [address]- 6395 Aug, [facility] [place] [facility] [address] [id number], [place] [address] Aug, [facility] [place] [facility] [address] [id number] [place] [address]- 9085 Aug, [facility] [place] [facility] [address] [id number] [place] [address]- 6258 Aug, [facility] [address] [id number] [place] [address] 3471 Jul, [facility] [place] [facility] [address] [id number] [place] [address] 9913 Jul, [facility] [address] [id number] [place] [address]- 3694 Jun, [facility] [place] [facility] [address] [id number] [place] [address]- 9301 Jun, [facility] [address] [id number] [place] [address]- 6642 Jun, [facility] [place] [facility] [address] [id number] [place] [address]- 3921 Jun, [facility] [place] [facility] [address] [facility] [id number] [place] [address]- 5767 May, [facility] [place] [facility] [address] [id number] [place] [address]- 9694 May, [facility] [place] [facility] [address] [facility] [id number] [place] [address]- 7620 May, [facility] [address] [facility] [id number] [place] [address]- 3729 May, [facility] [place] [facility] [address] [facility] [id number] [place] [address]- 1407 Apr, [facility] [place] [facility] [address] [id number] [place] [address]- 9300 Apr, [facility] [place] [facility] [address] [id number] [place] [address]- 6210 Apr, [facility] [place] [facility] [address] [facility] [id number] [place] [address]- 3939 Apr, [facility] [place] [facility] [address] [facility] [id number] [place] [address]- 6005 Apr, [facility] [place] [facility] [address] [id number] [place] [address]- 8879 Apr, [facility] [place] [facility] [address] [id number] [place] [address]- 5107 Apr, [facility] [place] [facility] [address] [id number] [place] [address]- 0098 Apr, [facility] [place] [facility] [address] [id number] [place] [address]- 1112 Apr, [facility] [place] [facility] [address] [id number] [place] [address]- 5521 Apr, [facility] [place] [facility] [address] [id number] [place] [address]- 6064 Feb, [facility] [place] [facility] [address] [id number] [place] [address]- 8901 Feb, [facility] [place] [facility] [address] [id number] [place] [address]- 3108 Jan, [facility] [place] [facility] [address] [id number] [place] [address]- 7977 Jan, [facility] [place] [facility] [address] [id number] [place] [address]- 8607 Jan, [facility] [place] [facility] [address] [id number] [place] [address]- 2527 Jan, [facility] [place] [facility] [address] [id number], [place] [address]- 9328 Jan, [facility] [place] [facility] [address] [id number] [place] [address]- 9398 Jan, [facility] [place] [facility] [address] [id number] [place] [address]- 3747 Dec, [facility] [place] [facility] [address] [id number] [place] [address]- 9631 November, [facility] [place] [facility] [address] [id number], [place] [address]- [address] November, [facility] [address] [id number] [place] [address]- 2266 November, [facility] [place] [facility] [address] [id number] [place] [address]- 7966 Sep, [facility] [address] [id number] [place] [address]- 2196 Sep, [facility] [place] [facility] [address] [id number] [place] [address]- 7221 Sep, [facility] [address] [id number] [place] [address]- 1525 Sep, [facility] [address] [id number] [place] [address]- 7774 Sep, [facility] [address] [facility] [id number] [place] [address]- 5695 Sep, [facility] [place] [facility] [address] [id number] [place] [address]- 5985 Aug, [facility] [address] [id number] [place] [address]- 9072 Aug, [facility] [address] [id number] [place] [address]- 4037 Aug, [facility] [address] [id number] [place] [address]- 2473 Jul, [facility] [place] [facility] [address] [id number] [place] [address]- 7210 Jul, [facility] [place] [facility] [address] [id number] [place] [address]- 5869 Jul, [facility] [place] [facility] [address] [id number] [place] [address]- 0756 Jul, [facility] [place] [facility] [address] [facility] [id number] [place] [address]- 8975 Jun, [facility] [place] [facility] [address] [id number] [place] [address]- 7176 08 Jun, 2011 [facility] [place] [facility] [address] [id number] [place] [address]- 6416 Jun, [facility] [place] [facility] [address] [id number] [place] [address]- 6046 Jun, [facility] [place] [facility] [address] [id number] [place] [address]- 3676 Jun, [facility] [place] [facility] [address] [id number] [place] [address]- 7078 Jun, [facility] [place] [facility] [address] [id number] [place] [address]- 5928 May, [facility] [place] [facility] [address] [id number] [place] [address]- 6327 May, [facility] [place] [facility] [address] [id number] [place] [address]- 9562 May, [facility] [place] [facility] [address] [id number] [place] [address]- 3898 Apr, [facility] [place] [facility] [address] [id number] [place] [address]- 5598 Jan, [facility] [place] [facility] [address] [id number] [place] [address]- 3535 Jun, [facility] [place] [facility] [address] [id number] [place] [address]- 7784 Jun, [facility] [place] [facility] [address] [id number] [place] [address] 2546 15 Jun, 2010 [facility] [place] [facility] [address] [id number] [place] [address] 2546 Jun, [facility] [place] [facility] [address] [id number] [place] [address]- 2548 15 Jun, 2010 [facility] [place] [facility] [address] [id number] [place] [address]- 8913 13 Jun, 2010 [facility] [address] [id number] [place] [address]- 7896 13 Jun, 2010 [facility] [place] [facility] [address] [id number] [place] [address]- 4396 21 Apr, 2010 [facility] [address] [facility] [id number] [place] [address] 2546 17 Feb, 2010 [facility] [place] [facility] [address] [id number] [place] [address] 2546 15 Aug, 2009 [facility] [address] [id number] [place] [address]- 2126 18 Jul, 2009 [facility] [place] [facility] [address] [id number] [place] [address] 2546 11 Jul, 2009 [facility] [address] [id number] [place] [address]- 1160 29 Jun, 2009 [facility] [place] [facility] [address] [id number] [place] [address]- 4681 28 Jun, 2009 [facility] [address] [id number] [place] [address]- 1355 28 Jun, 2009 [facility] [place] [facility] [address] [id number] [place] [address]- 6641 22 Jun, 2009 [facility] [address] [id number], [place] [address]- 2446 16 Jun, 2009 [facility] [place] [facility] [address] [id number], [place] [address] 2546 09 Jun, 2009 [facility] [place] [facility] [address] [id number] [place] [address] 2546 Jun, [facility] [place] [facility] [address] [facility] [id number], [place] [address] 2547 30 May, 2009 [facility] [place] [facility] [address] [facility] [id number] [place] [address] 2546 May, [facility] [place] [facility] [address] [id number], [place] [address]- 1249 May, [facility] [address] [id number], [place] [address]- 1755 May, [facility] [id number], [place] [address]- 6590 May, [facility] [id number], [place] [address]- 3359 May, [facility] [id number], [place] [address]- 1007 May, [facility] [id number] [place] [address]120[address]- 7417 Apr, [facility] [id number], [place] [address]- 5719 Apr, [facility] [id number], [place] [address]- 5016 Jan, [facility] [address] [id number], [place] [address]- 0583 Oct, IMMUNIZATIONS No Known Immunizations SOCIAL HISTORY Never Assessed REASON FOR VISIT correction of CT order PLAN OF CARE VITAL SIGNS MEDICATIONS Unknown [...]
--- OUTSIDE RECORDS SUMMARY | 2018-11-09 13:20 | XMS REPORT ---
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 Name Role Phone PRABHA HILL Unavailable PROBLEMS Type Condition ICD9-CM Code YPA22-SH Code Onset Dates Condition Status SNOMED Code Problem Hyperlipemia, mixed E78.2 Active 963311818 Problem Hypoglycemia E16.2 Active 202623328 Problem Hypernatremia E87.0 Active 75289053 Problem Neurogenic orthostatic hypotension G90.3 Active 434855978 Problem Dementia with Lewy bodies G31.83 Active 570886140 Problem Mixed stress and urge urinary incontinence N39.46 Active 510460034 Problem 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 Active 7519843983230 Problem Unsteady gait R26.81 Active 43313552 Problem Hallucinations R44.3 Active 6615397 Problem Parkinsons disease G20 Active 31852349 Problem Episodic cluster headache, not intractable G44.019 Active 186036111 Problem Type 2 diabetes mellitus with unspecified complications E11.8 Active 42905686 Problem PVD (peripheral vascular disease) I73.9 Active 746498862 Problem Dementia in other diseases classified elsewhere without behavioral disturbance F02.80 Active 795404871 Problem Dysuria R30.0 Active 91443333 Problem Hypothyroidism (acquired) E03.9 Active 632743700 Problem Neuropathy G62.9 Active 351797326 Problem 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 Active 563332033 Problem Dysthymia F34.1 Active 68709352 Problem Essential hypertension I10 Active 09894523 Problem Polydipsia R63.1 Active 19244599 ALLERGIES No Information ENCOUNTERS Encounter Location Date Diagnosis [facility] [address] [facility] [id number] [address] Dec, [facility] [id number] [place] [address] 90964- 7362 Oct, [facility] [id number] [place] [address] 41822 -2748 Oct, [place] [id number] [place] [address] 54969- 2701 Oct, Parkinsons disease G20 [facility] [id number] [place] [address] 23380 -0764 Oct, Acute cystitis without hematuria N30.00 and Viral upper respiratory tract infection J06.9 [facility] [id number] [place] [address] 24510- 3925 Oct, [facility] [place] [id number] [place] [address] 39916- 4636 Oct, Type 2 diabetes mellitus with unspecified complications E11.8 [facility] [id number] [place] [address] 52652- 8384 Oct, Left shoulder pain M25.512 [facility] [id number] [place] [address] 61916- 9320 16 Oct, 2017 Type 2 diabetes mellitus with unspecified complications E11.8 ; Dysuria R30.0 and Neurogenic orthostatic hypotension G90.3 [place] [id number] [place] [address] 18589- 9495 Sep, Left shoulder pain M25.512 [facility] [id number] [place] [address] 75981- 9229 Sep, Medicare annual wellness visit, initial Z00.00 ; Parkinsons disease G20 ; Type 2 diabetes mellitus with unspecified complications E11.8 ; Essential hypertension I10 ; 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 ; Hypothyroidism (acquired ) E03.9 ; PVD (peripheral vascular disease) I73.9 ; Dysthymia F34.1 ; Hyperlipemia, mixed E78.2 ; Neuropathy G62.9 ; Encounter for immunization Z23 ; Encounter for other screening for malignant neoplasm of breast Z12.39 and Mixed stress and urge urinary incontinence N39.46 [place] [address] 60364- 0010 Aug, Parkinsons disease G20 [place] [address] 05384- 7973 Aug, Type 2 diabetes mellitus with unspecified complications E11.8 ; Left shoulder pain M25.512 and Hypotensive episode I95.9 [facility] [place] [address] 74988- 8513 Aug, 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 [place] [address] 91998- 3996 07 Aug, 2017 Type 2 diabetes mellitus with unspecified complications E11.8 [place] [address] 36310- 6242 Jul, Callus of foot L84 [place] [address] 75874- 2123 Jul, [place] [address] 96002- 2364 Jul, Callus of foot L84 ; Episodic cluster headache, not intractable G44.019 ; Type 2 diabetes mellitus with unspecified complications E11.8 and Parkinsons disease G20 [place] [address] 32096- 2222 Jul, [place] [address] 50072- 6106 Jul, [place] [address] 77313- 1158 Jun, Type 2 diabetes mellitus with unspecified complications E11.8 ; Unsteady gait R26.81 ; Forgetfulness R68.89 and Hallucinations R44.[address] 86056- 7111 Jun, [place] [id number] [place] [address] 38356- 4050 Jun, Left shoulder pain M25.512 [place] [id number] [place] [address] 46141- 3847 13 May, 2017 Hypernatremia E87.0 and Polydipsia R63.1 [place] [address] 92594- 4994 08 May, 2017 Hypernatremia E87.0 and Polydipsia R63.1 [place] [id number] [place] [address] 01352- 0429 08 May, 2017 Hypoglycemia E16.2 ; Dysuria R30.0 ; Unsteadiness on feet R26.81 ; Forgetfulness R68.89 ; Type 2 diabetes mellitus with unspecified complications E11.8 and Yeast infection involving the vagina and surrounding area B37.3 [place] [id number] [place] [address] 73561- 3767 May, Acute cystitis without hematuria N30.00 [facility] [id number] [place] [address] 90726 -2999 Apr, Dysuria R30.0 and Acute cystitis without hematuria N30.00 [facility] [id number] [place] [address] 52482- 5630 Apr, Hypernatremia E87.0 and Polydipsia R63.1 [place] [id number] [place] [address] 45044- 7774 Apr, Vertigo R42 and Type 2 diabetes mellitus with unspecified complications E11.8 [place] [id number] [place] [address] 85340- 1984 Mar, [facility] [id number] [place] [address] 52450- 7747 19 Mar, 2017 Left shoulder pain M25.512 [place] [id number] [place] [address] 80782- 4510 13 Mar, 2017 Vertigo R42 [facility] [id number] [place] [address] 86265- 4625 12 Mar, 2017 Polydipsia R63.1 [facility] [id number] [place] [address] 63205- 4776 12 Mar, 2017 Polydipsia R63.1 [place] [id number] [place] [address] 98010- 6892 11 Mar, 2017 Vertigo R42 [place] [address] 50178- 5381 07 Mar, 2017 Type 2 diabetes mellitus with unspecified complications E11.8 ; Vertigo R42 ; Polydipsia R63.1 ; Polyuria R35.8 ; Hypothyroidism ( acquired) E03.9 ; Abnormal urinalysis R82.90 and Dysthymia F34.1 [place] [id number] [place] [address] 45724- 1756 05 Mar, 2017 Coronary artery disease of chinik artery with stable angina pectoris, unspecified whether chinik or transplanted heart I25.118 ; Systolic CHF, chronic I50.22 ; Hyperlipemia, mixed E78.2 and Essential hypertension I10 [facility] [id number] [place] [address] [id number] Feb, Dental caries K02.9 [place] [id number] [place] [address] 94255- 7874 Feb, Type 2 diabetes mellitus with diabetic neuropathy, unspecified E11.40 [facility] [id number] [place] [address] 47767- 8778 Dec, Left shoulder pain M25.512 [facility] [address] 57650- 6338 Dec, [place] [id number] [place] [address] 67167- 9353 15 Dec, 2016 Type 2 diabetes mellitus with unspecified complications E11.8 [facility] [address] [place] [address] 15 Dec, 2016 Dental examination Z01.20 [place] [id number] [place] [address] 02911- 6107 Dec, Type 2 diabetes mellitus with diabetic neuropathy, unspecified E11.40 [place] [address] [place] [address] 20232- 2061 Dec, [facility] [id number] [place] [address] 92625- 6212 Dec, Type 2 diabetes mellitus with diabetic neuropathy, unspecified E11.40 [place] [id number] [place] [address] 857918- 0132 November, Left shoulder pain M25.512 [place] [id number] [place] [address] 90882- 5673 November, [place] [id number] [place] [address] 08933- 8692 November, Type 2 diabetes mellitus with unspecified complications E11.8 and Dysuria R30.0 [place] [id number] [place] [address] 19407- 9280 Oct, Left shoulder pain M25.512 [place] [address] [place] [address] 55436- 2669 Sep, Left shoulder pain M25.512 [place] [id number] [place] [address] 73584- 1942 Sep, Pre-op testing Z01.818 [place] [address] [place] [address] 80371- 3457 Sep, Pre-op testing Z01.818 [place] [address] [place] [address] 48630- 1856 Sep, Pre-op testing Z01.818 [place] [address] [place] [address] 93277- 7168 Sep, Pre-op testing Z01.818 and Mouth pain K13.79 [facility] [address] 75969- 6279 Sep, Left shoulder pain M25.512 [place] [address] 01485- 3062 08 Aug, 2016 Other eczema L30.[address] 47152- 8666 06 Aug, 2016 PVD (peripheral vascular disease) I73.9 ; Type 2 diabetes mellitus with unspecified complications E11.8 ; Acute cystitis with hematuria N30.01 ; Other eczema L30.8 ; Dysuria R30.0 and Left shoulder pain M25.512 [facility] [address] 75456 -2181 Jul, Otalgia of right ear H92.01 and Blood in ear canal, right H92.[address] 24895- 8002 Jul, Arthralgia, unspecified joint M25.50 ; PVD (peripheral vascular disease) I73.9 and Neuropathy G62.9 [place] [id number] [place] [address] 14022- 9814 Jul, [place] [address] 92303- 7580 Jun, Medicare annual wellness visit, initial Z00.00 ; Cervicalgia M54.2 ; Radiculopathy of cervical region M54.12 ; Encounter for immunization Z23 ; Type 2 diabetes mellitus with unspecified complications E11.8 and Essential hypertension I10 [address] 41628- 2953 Jun, [place] [address] 48710- 4293 May, Hypothyroidism (acquired) E03.[address] [place] [address]- 1214 May, Dysuria R30.0 ; Essential hypertension I10 ; Hypothyroidism (acquired) E03.9 and PVD (peripheral vascular disease) I73.9 [facility] [id number] [place] [address] 15471 -5390 May, Burning with urination R30.0 and Acute cystitis with hematuria N30.01 [facility] [address] 65828- 4399 May, Dental examination Z01.20 [facility] [address] 84659- 1823 May, Hypothyroidism (acquired) E03.9 [facility] [id number] [place] [address] 33902- 4578 Feb, [facility] [address] 98071- 6224 Feb, 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 ; PVD ( peripheral vascular disease) I73.9 ; Type 2 diabetes mellitus with unspecified complications E11.8 and Essential hypertension I10 [facility] [id number] [place] [address] 65184- 8739 Jan, [facility] [id number] [place] [address] 06671- 5519 Jan, Hypothyroidism (acquired) E03.9 [facility] [id number] [place] [address] 80986- 5884 Jan, [facility] [id number] [place] [address] 18686- 8553 Jan, [facility] [address] 48095- 8768 Jan, Type 2 diabetes mellitus with unspecified complications E11.8 ; 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 and Essential ( primary) hypertension I10 [facility] [address] [place] [address]- 3246 Jan, Type 2 diabetes mellitus with unspecified complications E11.8 ; 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 ; Essential hypertension I10 and PVD (peripheral vascular disease) I73.9 [facility] [id number] [place] [address] 38138- 4372 Jan, [place] [id number] [place] [address] 74721- 8735 Jan, [place] [id number] [place] [address] 48757- 2001 Jan, [place] [id number] [place] [address] 80781- 2881 Jan, Weakness R53.1 ; Fatigue, unspecified type R53.83 ; PVD ( peripheral vascular disease) I73.9 ; Acute osteomyelitis of other site M86.18 ; Type 2 diabetes mellitus with diabetic neuropathy, unspecified E11.40 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 [place] [id number] [place] [address] 95938- 3896 Dec, [place] [id number] [place] [address] 50597- 1623 Dec, Type 2 diabetes mellitus with unspecified complications E11.8 [place] [id number] [place] [address] 59727- 7268 Dec, [place] [id number] [place] [address] 14554- 4308 Dec, Pressure ulcer, unspecified pressure ulcer stage L89.90 and Type 2 diabetes mellitus with unspecified complications E11.8 [facility] [id number] [place] [address] 47205 -9040 Dec, Toe infection L08.9 [place] [id number] [place] [address] 36640- 2287 November, Dental caries K02.9 [place] [address] [place] [address]- 0902 November, [facility] [id number] [place] [address] 05292- 1311 November, Dental examination Z01.20 [facility] [id number] [place] [address] 31178- 6989 28 Sep, 2015 Lipoma of torso D17.1 and Thoracic neuritis M54.14 [facility] [id number] [place] [address] 38943- 9120 Sep, [facility] [id number] [place] [address] 19584- 6773 Aug, [facility] [id number] [place] [address] 81846 -2018 Jul, Dysuria R30.0 and UTI (urinary tract infection) N39.0 [facility] [id number] [place] [address] 73311- 5867 Jun, Left shoulder pain M25.512 [facility] [id number] [place] [address] 87407- 4024 May, Shoulder pain, left M25.512 [facility] [id number] [place] [address] 92183- 3826 May, [facility] [id number] [place] [address] 64242- 3964 May, [facility] [id number] [place] [address] 00557- 1865 May, Left shoulder pain M25.512 [facility] [id number] [place] [address] 22256- 3886 May, [facility] [id number] [place] [address] 54534- 3177 Apr, Encounter for immunization Z23 [facility] [id number] [place] [address] 23315- 0933 Apr, Urinary tract infection, site not specified N39.0 ; Hypotension, unspecified I95.9 ; Type 2 diabetes mellitus with unspecified complications E11.8 and Generalized edema R60.1 [facility] [id number] [place] [address] 53969- 6816 Apr, [facility] [id number] [place] [address] 18702- 1438 Mar, Diabetes with other specified manifestations, type II or unspecified type, not stated as uncontrolled 250.80 [facility] [address] 371336- 2773 Feb, Gout 274.9 and Diabetes 250.00 [facility] [id number] [place] [address] 43966- 7827 Jan, [facility] [id number] [place] [address] 49704- 5555 November, CAD (coronary artery disease) 414.00 and CHF (congestive heart failure) 428.0 [facility] [id number] [place] [address] 03706- 6144 Oct, [facility] [id number] [place] [address] 30994- 8624 Oct, [facility] [id number] [place] [address] 47652- 3840 Oct, [facility] [id number] [place] [address] 59650- 2711 Sep, [facility] [id number] [place] [address] 81083- 4381 Sep, [facility] [id number] [place] [address] 836544- 5578 Sep, [facility] [id number] [place] [address] 391683- 9551 Sep, [facility] [id number] [place] [address] 80719- 6377 Aug, 2014 [facility] [place] [facility] [address] [id number] [place] [address]- 2676 Aug, 2014 [facility] [place] [facility] [address] [id number] [place] [address]- 7276 Aug, 2014 [facility] [place] [facility] [address] [facility] [address] [id number] [place] [address]- 8676 Aug, 2014 [facility] [place] [facility] [address] [id number] [place] [address]- 6905 Aug, 2014 [facility] [place] [facility] [address] [id number] [place] [address]- 6949 Aug, 2014 [facility] [place] [facility] [address] [facility] [address] [id number] [place] [address]- 4399 Aug, [facility] [place] [facility] [address] [facility] [address] [id number] [place] [address]- 1991 Aug, [facility] [place] [facility] [address] [facility] [address] [id number] [address]- 2894 Jul, [facility] [place] [facility] [address] [facility] [address] [id number] [place] [address]- 0438 Jul, [facility] [place] [facility] [address] [facility] [address] [id number] [place] [address]- 4755 Jul, [facility] [place] [facility] [address] [facility] [address] [id number] [place] [address]- 1941 Jul, [facility] [place] [facility] [address] [facility] [address] [id number] [address]- 7652 Jul, [facility] [place] [facility] [address] [id number], [place] [address]- 4328 Jul, [facility] [place] [facility] [address] [facility] [address] [id number] [address]- 9913 Jul, [facility] [place] [facility] [address] [facility] [address] [id number], [place] [address]- 4686 Jul, [facility] [place] [facility] [address] [id number] [place] [address]- 2439 Jul, [facility] [place] [facility] [address] [id number] [place] [address]- 8972 Jul, [facility] [place] [facility] [address] [id number] [place] [address]- 6910 Jun, [facility] [place] [facility] [address] [id number] [place] [address]- 1152 Jun, [facility] [place] [facility] [address] [id number] [place] [address]- 9718 Jun, [facility] [place] [facility] [address] [id number] [place] [address]- 8183 Jun, [facility] [place] [facility] [address] [id number] [place] 5043 Jun, [facility] [place] [facility] [address] [id number] [place] [address]- 4449 Jun, [facility] [place] [facility] [address] [id number] [place] 0667 Jun, [facility] [place] [facility] [address] [id number] [place] [address]- 9302 Jun, [facility] [place] [facility] [address] [id number] [place] [address]- 9914 Jun, [facility] [place] [facility] [address] [id number] [place] [address]- 2085 Jun, [facility] [place] [facility] [address] [id number] [place] [address]- 3686 May, [facility] [place] [facility] [address] [id number] [place] [address]- 3720 May, [facility] [place] [facility] [address] [id number] [place] [address]- 2543 Mar, [facility] [place] [facility] [address] [id number] [place] [address]- 4580 Mar, [facility] [place] [facility] [address] [id number] [place] [address]- 2415 Mar, [facility] [place] [facility] [address] [id number] [place] [address]- 8081 Mar, [facility] [place] [facility] [address] [id number] [place] [address]- 2036 Feb, [facility] [place] [facility] [address] [id number] [place] [address]- 8896 Feb, [facility] [place] [facility] [address] [id number] [place] [address]- 1186 Feb, [facility] [place] [facility] [address] [id number] [place] [address] Jan, [facility] [place] [facility] [address] [id number] [place] [address] Jan, [facility] [place] [facility] [address] [id number] [place] [address] Jan, [facility] [place] [facility] [address] [id number] [place] [address] Jan, [facility] [place] [facility] [address] [id number] [place] [address] Jan, [facility] [place] [facility] [address] [id number] [place] [address] Jan, [facility] [place] [facility] [address] [id number] [place] [address] Jan, [facility] [place] [facility] [address] [id number] [place] [address] Jan, [facility] [place] [facility] [address] [id number] [place] [address] Jan, [facility] [place] [facility] [address] [id number] [place] [address] Jan, [facility] [place] [facility] [address] [id number] [place] [address] Dec, [facility] [place] [facility] [address] [id number] [place] [address] Dec, [facility] [place] [facility] [address] [id number] [place] [address] November, [facility] [place] [facility] [address] [id number] [place] [address] November, [facility] [place] [facility] [address] [id number] [place] [address] November, [facility] [place] [facility] [address] [id number] [place] [address] November, [facility] [place] [facility] [address] [id number] [place] [address] November, [facility] [place] [facility] [address] [id number] [place] [address] November, [facility] [place] [facility] [address] [id number] [place] [address] November, [facility] [place] [facility] [address] [id number] [place] [address] Oct, [facility] [place] [facility] [address] [id number] [place] [address] Oct, [facility] [place] [facility] [address] [id number] [place] [address] Sep, [facility] [place] [facility] [address] [id number] [place] [address] Sep, [facility] [place] [facility] [address] [id number] [place] [address] Sep, [facility] [place] [facility] [address] [id number] [place] [address] Sep, [facility] [place] [facility] [address] [id number] [place] [address] Sep, [facility] [place] [facility] [address] [id number] [place] [address] Sep, [facility] [place] [facility] [address] [id number] [place] [address] Sep, [facility] [place] [facility] [address] [id number] [place] [place] [address] Sep, [facility] [place] [facility] [address] [id number] [place] [address] Sep, [facility] [place] [facility] [address] [id number] [place] [address] Sep, [facility] [place] [facility] [address] [id number] [place] [address] Aug, [facility] [place] [facility] [address] [id number] [place] [address] 95[address] Aug, [facility] [place] [facility] [address] [id number] [place] [address] 68[address] Jul, [facility] [place] [facility] [address] [id number] [place] [address]885 Jul, [facility] [place] [facility] [address] [id number] [place] [address] 3[address] Jul, [facility] [place] [facility] [address] [id number] [place] [address] 8775 Jul, [facility] [place] [facility] [address] [id number] [address] Jul, [facility] [place] [facility] [address] [id number] [place] [address] Jul, [facility] [place] [facility] [address] [id number] [place] [address] 7967 Jun, [facility] [place] [facility] [address] [id number], [place] [address] Jun, [facility] [place] [facility] [address] [id number] [address] Jun, [facility] [place] [facility] [address] [id number] [place] [address] 7467 Jun, [facility] [place] [facility] [address] [id number] [place] [address] 5121 May, [facility] [place] [facility] [address] [id number] [place] [address] 8050 May, [facility] [place] [facility] [address] [id number] [place] [address]- 0699 May, [facility] [place] [facility] [address] [id number] [place] [address]- 0638 May, [facility] [place] [facility] [address] [id number] [place] [address] May, [facility] [place] [facility] [address] [id number] [place] [address]- 0695 Apr, [facility] [place] [facility] [address] [id number] [place] [address]- 4825 Apr, [facility] [place] [facility] [address] [id number] [place] [address]- 2510 Apr, [facility] [place] [facility] [address] [id number] [place] [address]- 0369 Apr, [facility] [place] [facility] [address] [id number], [place] [address] 1667 Apr, [facility] [place] [facility] [address] [id number], [place] [address] 28 Apr, 2013 [facility] [place] [facility] [address] [id number] [place] [address]- 6287 Apr, [facility] [place] [facility] [address] [id number] [place] [address]- 9922 Apr, [facility] [place] [facility] [address] [id number] [place] [address]- 7464 Apr, [facility] [place] [facility] [address] [id number] [place] [address]- 8931 Apr, [facility] [place] [facility] [address] [id number] [place] [address]- 6779 Apr, [facility] [place] [facility] [address] [id number] [place] [address]- 2546 Apr, [facility] [place] [facility] [address] [id number] [place] [address] 50[address] Mar, [facility] [place] [facility] [address] [id number] [place] [address] 6289 Mar, [facility] [place] [facility] [address] [id number] [place] [address]- 7256 Feb, [facility] [place] [facility] [address] [id number] [place] [address]- 2720 Jan, [facility] [place] [facility] [address] [id number] [place] [address]- 0581 Jan, [facility] [place] [facility] [address] [id number] [place] [address]- 5193 Jan, [facility] [place] [facility] [address] [id number] [place] [address]- 5368 Jan, [facility] [place] [facility] [address] [id number] [place] [address] 2661 Dec, [facility] [place] [facility] [address] [id number] [place] [address]- 9104 Dec, [facility] [place] [facility] [address] [id number] [place] [address]- 3569 Dec, [facility] [place] [facility] [address] [id number] [place] [address]- 0701 Dec, [facility] [place] [facility] [address] [id number] [place] [address] 2546 Dec, [facility] [place] [facility] [address] [id number] [place] [address] 4967 Dec, [facility] [address] [id number] [place] [address]- 4712 Dec, [facility] [place] [facility] [address] [id number] [place] [address]- 0869 November, [facility] [address] [id number] [place] [address]- 1416 November, [facility] [place] [facility] [address] [id number] [place] [address]- 1412 November, [facility] [address] [id number] [place] [address]- 3119 Oct, [facility] [address] [id number] [place] [address]- 9588 Oct, [facility] [address] [id number] [place] [address]- 6298 Oct, [facility] [place] [facility] [address] [id number] [place] [address]- 6610 Oct, [facility] [place] [facility] [address] [id number] [place] [address]- 8744 Oct, [facility] [place] [facility] [address] [id number] [place] [address]- 5484 Sep, [facility] [place] [facility] [address] [id number] [place] [address]- 2033 Sep, [facility] [place] [facility] [address] [id number], [place] [address] 1205 Sep, [facility] [place] [facility] [address] [id number] [place] [address]- 6507 Sep, [facility] [place] [facility] [address] [id number], [place] [address] 5607 Aug, [facility] [place] [facility] [address] [id number] [place] [address]- 0758 Aug, [facility] [place] [facility] [address] [id number] [place] [address]- 4829 05 Aug, 2012 [facility] [address] [id number] [place] [address] 2061 Aug, [facility] [place] [facility] [address] [id number] [place] [address]- 2458 Jul, [facility] [address] [id number] [place] [address]- 8413 Jul, [facility] [place] [facility] [address] [id number] [place] [address]- 0744 Jun, [facility] [address] [id number] [place] [address], [place] [address]- 2439 Jun, [facility] [address] [facility] [id number] [place] [address]- 5490 Jun, [facility] [address] [facility] [address] [id number] [place] [address]- 1737 Jun, [facility] [address] [facility] [address] [id number] [place] [address]- 2139 May, [facility] [place] [facility] [address] [facility] [address] [id number] [place] [address]- 2721 May[facility] [address] [facility] [address] [id number] [place] [address]- 0556 May, [facility] [place] [facility] [address] [facility] [address] [id number] [place] [address]- 8157 May, [facility] [place] [facility] [address] [facility] [address] [id number] [place] [address]- 6119 Apr, [facility] [place] [facility] [address] [facility] [address] [id number] [place] [address]- 6522 Apr, [facility] [place] [facility] [address] [facility] [address] [id number] [place] [address]- 4353 Apr, [facility] [place] [facility] [address] [facility] [address] [id number] [place] [address]- 4330 Apr, [facility] [place] [facility] [address] [id number] [place] [address]- 9840 Apr, [facility] [place] [facility] [address] [id number] [place] [address]- 6188 Apr, [facility] [place] [facility] [address] [id number] [place] [address]- 5409 Apr, [facility] [place] [facility] [address] [id number] [place] [address]- 2903 Apr, [facility] [place] [facility] [address] [id number] [place] [address]- 3548 Apr, [facility] [place] [facility] [address] [id number] [place] [address]- 2469 Apr, [facility] [place] [facility] [address] [id number] [place] [address]- 7590 Feb, [facility] [place] [facility] [address] [id number] [place] [address]- 8331 Feb, [facility] [place] [facility] [address] [id number] [place] [address]- 1556 Jan, [facility] [place] [facility] [address] [id number] [place] [address]- 0181 Jan, [facility] [place] [facility] [address] [id number] [place] [address]- 9012 Jan, [facility] [place] [facility] [address] [id number], [place] [address]- 1147 Jan, [facility] [place] [facility] [address] [id number] [place] [address]- 9522 Jan, [facility] [place] [facility] [address] [id number] [place] [address]- 5023 Jan, [facility] [place] [facility] [address] [id number], [place] [address]- 9598 Dec, [facility] [place] [facility] [address] [id number], [place] [address]- 9203 November, [facility] [address] [id number] [place] [address]- 3980 November, [facility] [address] [id number] [place] [address]- 2738 November, [facility] [address] [id number] [place] [address]- 9457 Sep, [facility] [place] [facility] [address] [id number] [place] [address]- 0799 Sep, [facility] [address] [id number] [place] [address]- 8498 Sep, [facility] [address] [id number] [place] [address]- 6415 Sep, [facility] [address] [facility] [address] [id number] [place] [address]- 9605 Sep, [facility] [place] [facility] [address] [facility] [address] [id number] [place] [address]- 5544 Sep, [facility] [address] [facility] [address] [id number] [place] [address]- 9989 Aug, [facility] [address] [facility] [address] [id number] [place] [address]- 0124 Aug, [facility] [address] [facility] [address] [id number] [place] [address]- 7005 Aug, [facility] [place] [facility] [address] [id number] [place] [address]- 9785 Jul, [facility] [place] [facility] [address] [id number] [place] [address]- 0872 Jul, [facility] [place] [facility] [address] [id number] [place] [address]- 7185 Jul, [facility] [place] [facility] [address] [facility] [address] [id number] [place] [address]- 8649 Jul, [facility] [place] [facility] [address] [id number] [place] [address]- 8131 Jun, [facility] [place] [facility] [address] [id number] [place] [address] Jun, [facility] [place] [facility] [address] [id number] [place] [address]- 8486 Jun, [facility] [place] [facility] [address] [id number] [place] [address]- 3796 Jun, [facility] [place] [facility] [address] [id number] [place] [address]- 1254 Jun, [facility] [place] [facility] [address] [id number] [place] [address]- 3589 Jun, [facility] [place] [facility] [address] [id number] [place] [address]- 4793 May, [facility] [place] [facility] [address] [id number] [place] [address]- 0394 May, [facility] [place] [facility] [address] [id number] [place] [address]- 2928 May, [facility] [place] [facility] [address] [id number] [place] [address]- 4382 Apr, [facility] [place] [facility] [address] [id number] [place] [address]- 9221 Jan, [facility] [place] [facility] [address] [id number] [place] [address]- 4809 Jun, [facility] [place] [facility] [address] [id number] [place] [address]- 7231 Jun, [facility] [place] [facility] [address] [id number] [place] [address]- 4696 Jun, [facility] [place] [facility] [address] [id number] [place] [address] Jun, [facility] [place] [facility] [address] [id number] [place] [address]- 4478 15 Jun, 2010 [facility] [address] [id number] [place] [address]- 4816 13 Jun, 2010 [facility] [place] [facility] [address] [id number] [place] [address]- 1356 13 Jun, 2010 [facility] [address] [facility] [address] [id number] [place] [address] 2546 21 Apr, 2010 [facility] [place] [facility] [address] [id number] [place] [address] 2546 17 Feb, 2010 [facility] [address] [id number] [place] [address]- 5776 15 Aug, 2009 [facility] [place] [facility] [address] [facility] [address] [id number] [place] [address]- 9016 18 Jul, 2009 [facility] [place] [facility] [address] [id number] [place] [address]- 7755 11 Jul, 2009 [facility] [place] [facility] [address] [id number] [place] [address]- 9817 29 Jun, 2009 [facility] [address] [id number] [place] [address]- 6887 28 Jun, 2009 [facility] [place] [facility] [address] [id number] [place] [address]- 3424 28 Jun, 2009 [facility] [address] [id number], [place] [address]- 8820 22 Jun, 2009 [facility] [place] [facility] [address] [id number], [place] [address] 2546 16 Jun, 2009 [facility] [place] [facility] [address] [id number] [place] [address] 2546 09 Jun, 2009 [facility] [place] [facility] [address] [facility] [address] [id number] [place] [address] 2546 Jun, [facility] [place] [facility] [address] [facility] [address] [id number] [place] [address] 2546 30 May, 2009 [facility] [place] [facility] [id number] [address]- [address]256 May, [facility] [id number] [address]- 5570 May, [facility] [id number] [address]- 1837 May, [facility] [id number] [address]- 6167 May, [facility] [id number] [address]- 2207 May, [facility] [id number] [place] [address]- 3457 May, [facility] [id number] [address]- 4199 Apr, [facility] [id number], [place] [address]- 4908 Apr, [facility] [id number] [address]- 8725 Jan, [facility] [id number] [address]- 0440 Oct, IMMUNIZATIONS No Known Immunizations SOCIAL HISTORY Never Assessed REASON FOR VISIT Controlled Med Refill 04/15/2017 PLAN OF CARE VITAL SIGNS MEDICATIONS Medication Instructions Dosage Frequency Start Date End Date Duration Status Tramadol HCl 50 MG Orally 2 times a day 1 tablet as needed 12h Aug, 28 days Active RESULTS No Results PROCEDURES [...]
--- OUTSIDE RECORDS SUMMARY | 2018-11-09 13:21 | XMS REPORT ---
Author Author PRABHA HILL [facility] Address [address] [place] [address] Care Team Providers Care Casting Machine Set Up Operator Name Role Phone PRABHA HILL Unavailable PROBLEMS Type Condition ICD9-CM Code [id number] Code Onset Dates Condition Status SNOMED Code Problem Hypernatremia E87.0 Active 75853573 Problem Hallucinations R44.3 Active 8832663 Problem Hypoglycemia E16.2 Active 349303316 Problem Anxiety F41.9 Active 22547691 Problem Dementia in other diseases classified elsewhere without behavioral disturbance F02.80 Active 592912575 Problem Neurogenic orthostatic hypotension G90.3 Active 282099260 Problem Dementia with Lewy bodies G31.83 Active 607693526 Problem 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 Active 2046513854775 Problem Parkinsons disease G20 Active 57036421 Problem Unsteady gait R26.81 Active 98838160 Problem Mixed stress and urge urinary incontinence N39.46 Active 940468831 Problem Episodic cluster headache, not intractable G44.019 Active 395345420 Problem PVD (peripheral vascular disease) I73.9 Active 342315716 Problem 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 Active 526553600 Problem Dysuria R30.0 Active 68555207 Problem Type 2 diabetes mellitus with unspecified complications E11.8 Active 38834407 Problem Neuropathy G62.9 Active 558188502 Problem Polydipsia R63.1 Active 88406614 Problem Essential hypertension I10 Active 87898211 Problem Dysthymia F34.1 Active 65562515 Problem Hypothyroidism (acquired) E03.9 Active 046847896 Problem Hyperlipemia, mixed E78.2 Active [id number] ALLERGIES No Information ENCOUNTERS Encounter Location Date Diagnosis [facility] [address] [facility] [id number] [address] Dec, Parkinsons disease G20 [facility] [id number] [place] [address] 02128- 2632 Dec, Left shoulder pain M25.512 [facility] [id number] [place] [address] 47357- 9322 Dec, Type 2 diabetes mellitus with unspecified complications E11.8 ; Anxiety F41.9 ; Therapeutic drug monitoring Z51.81 and Analgesic use Z79.899 [facility] [address] 28572- 1231 November, [facility] [address] 31358- 8010 November, [place] [address] 59504- 1363 November, Left shoulder pain M25.512 [place] [id number] [place] [address] 91181- 2841 Oct, [facility] [id number] [place] [address] 95441 -1736 Oct, [facility] [id number] [place] [address] 85299- 8173 Oct, Parkinsons disease G20 [facility] [id number] [place] [address] 83342 -1295 Oct, Acute cystitis without hematuria N30.00 and Viral upper respiratory tract infection J06.9 [facility] [id number] [place] [address] 46361- 5886 Oct, [facility] [id number] [place] [address] 43421- 8740 Oct, Type 2 diabetes mellitus with unspecified complications E11.8 [facility] [id number] [place] [address] 43827- 8934 Oct, Left shoulder pain M25.512 [facility] [id number] [place] [address] 16770- 2074 Oct, Type 2 diabetes mellitus with unspecified complications E11.8 ; Dysuria R30.0 and Neurogenic orthostatic hypotension G90.3 [place] [address] 42282- 1242 Sep, Left shoulder pain M25.512 [place] [address] 80740- 6475 Sep, Medicare annual wellness visit, initial Z00.00 ; Parkinsons disease G20 ; Type 2 diabetes mellitus with unspecified complications E11.8 ; Essential hypertension I10 ; 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 ; Hypothyroidism (acquired ) E03.9 ; PVD (peripheral vascular disease) I73.9 ; Dysthymia F34.1 ; Hyperlipemia, mixed E78.2 ; Neuropathy G62.9 ; Encounter for immunization Z23 ; Encounter for other screening for malignant neoplasm of breast Z12.39 and Mixed stress and urge urinary incontinence N39.46 [place] [address] 74860- 4062 Aug, Parkinsons disease G20 [place] [address] 88886- 7804 Aug, Type 2 diabetes mellitus with unspecified complications E11.8 ; Left shoulder pain M25.512 and Hypotensive episode I95.9 [place] [address] 60991- 0405 Aug, 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 [place] [address] 33710- 2894 Aug, Type 2 diabetes mellitus with unspecified complications E11.8 [place] [address] 64661- 8573 Jul, Callus of foot L84 [place] [address] 24249- 9855 Jul, [place] [id number] [place] [address] 57895- 1420 10 Jul, 2017 Callus of foot L84 ; Episodic cluster headache, not intractable G44.019 ; Type 2 diabetes mellitus with unspecified complications E11.8 and Parkinsons disease G20 [place] [id number] [place] [address] 84377- 3395 Jul, [place] [address] 09804- 5419 Jul, [place] [id number] [place] [address] 25577- 0610 Jun, Type 2 diabetes mellitus with unspecified complications E11.8 ; Unsteady gait R26.81 ; Forgetfulness R68.89 and Hallucinations R44.3 [place] [id number] [place] [address] 07608- 2701 Jun, [place] [address] 32001- 3670 Jun, Left shoulder pain M25.512 [place] [id number] [place] [address] 96560- 6792 13 May, 2017 Hypernatremia E87.0 and Polydipsia R63.1 [place] [id number] [place] [address] 60203- 1081 08 May, 2017 Hypernatremia E87.0 and Polydipsia R63.1 [place] [id number] [place] [address] 97284- 5451 08 May, 2017 Hypoglycemia E16.2 ; Dysuria R30.0 ; Unsteadiness on feet R26.81 ; Forgetfulness R68.89 ; Type 2 diabetes mellitus with unspecified complications E11.8 and Yeast infection involving the vagina and surrounding area B37.3 [place] [id number] [place] [address] 34682- 2012 May, Acute cystitis without hematuria N30.00 [facility] [id number] [place] [address] 83956 -2063 Apr, Dysuria R30.0 and Acute cystitis without hematuria N30.00 [place] [address] [place] [id number]- 2746 Apr, Hypernatremia E87.0 and Polydipsia R63.1 [place] [address] 65103- 0288 Apr, Vertigo R42 and Type 2 diabetes mellitus with unspecified complications E11.8 [place] [address] 06154- 8597 Mar, [place] [address] 85668- 2788 Mar, Left shoulder pain M25.512 [place] [address] 71695- 7812 13 Mar, 2017 Vertigo R42 [place] [address] 77890- 0616 Mar, Polydipsia R63.1 [place] [address] 10346- 6354 Mar, Polydipsia R63.1 [place] [address] 45438- 0524 Mar, Vertigo R42 [place] [address] 16253- 7284 07 Mar, 2017 Type 2 diabetes mellitus with unspecified complications E11.8 ; Vertigo R42 ; Polydipsia R63.1 ; Polyuria R35.8 ; Hypothyroidism ( acquired) E03.9 ; Abnormal urinalysis R82.90 and Dysthymia F34.1 [place] [id number] [place] [address] 20173- 1484 05 Mar, 2017 Coronary artery disease of naknek artery with stable angina pectoris, unspecified whether naknek or transplanted heart I25.118 ; Systolic CHF, chronic I50.22 ; Hyperlipemia, mixed E78.2 and Essential hypertension I10 [facility] [id number] [place] [address] [id number] Feb, Dental caries K02.9 [facility] [id number] [place] [address] 37796- 8452 Feb, Type 2 diabetes mellitus with diabetic neuropathy, unspecified E11.40 [facility] [id number] [place] [address] 86494- 7452 Dec, Left shoulder pain M25.512 [facility] [id number] [place] [address] 12238- 2699 Dec, [facility] [id number] [place] [address] 90038- 1054 Dec, Type 2 diabetes mellitus with unspecified complications E11.8 [facility] [id number] [place] [address] [id number] Dec, Dental examination Z01.20 [facility] [id number] [place] [address] 67740- 7895 Dec, Type 2 diabetes mellitus with diabetic neuropathy, unspecified E11.40 [facility] [address] [place] [address] 08108- 1240 Dec, [facility] [id number] [place] [address] 53256- 2264 Dec, Type 2 diabetes mellitus with diabetic neuropathy, unspecified E11.40 [facility] [address] [place] [address] 21797- 8351 November, Left shoulder pain M25.512 [facility] [id number] [place] [address] 15236- 4315 November, [facility] [id number] [place] [address] 16983- 4000 November, Type 2 diabetes mellitus with unspecified complications E11.8 and Dysuria R30.0 [facility] [id number] [place] [address] 87447- 1275 Oct, Left shoulder pain M25.512 [place] [address] 77438- 9005 Sep, Left shoulder pain M25.512 [place] [address] 28592- 1242 Sep, Pre-op testing Z01.818 [place] [address] 417341- 3561 Sep, Pre-op testing Z01.818 [place] [address] 863143- 7300 Sep, Pre-op testing Z01.818 [place] [address] 49928- 8632 Sep, Pre-op testing Z01.818 and Mouth pain K13.79 [place] [address] 54500- 8368 Sep, Left shoulder pain M25.512 [place] [address] 92601- 8042 08 Aug, 2016 Other eczema L30.8 [place] [address] 96762- 5941 06 Aug, 2016 PVD (peripheral vascular disease) I73.9 ; Type 2 diabetes mellitus with unspecified complications E11.8 ; Acute cystitis with hematuria N30.01 ; Other eczema L30.8 ; Dysuria R30.0 and Left shoulder pain M25.512 [facility] [address] 52509 -0050 Jul, Otalgia of right ear H92.01 and Blood in ear canal, right H92.21 [place] [id number] [place] [address] 16452- 2067 Jul, Arthralgia, unspecified joint M25.50 ; PVD (peripheral vascular disease) I73.9 and Neuropathy G62.9 [facility] [id number] [place] [address] 86214- 7587 Jul, [facility] [id number] [place] [address] 57240- 9747 Jun, Medicare annual wellness visit, initial Z00.00 ; Cervicalgia M54.2 ; Radiculopathy of cervical region M54.12 ; Encounter for immunization Z23 ; Type 2 diabetes mellitus with unspecified complications E11.8 and Essential hypertension I10 [place] [id number] [place] [address] 58411- 9251 Jun, [place] [address] 65259- 4676 May, Hypothyroidism (acquired) E03.9 [place] [address] 13575- 8888 May, Dysuria R30.0 ; Essential hypertension I10 ; Hypothyroidism (acquired) E03.9 and PVD (peripheral vascular disease) I73.9 [facility] [id number] [place] [address] 03817 -1552 May, Burning with urination R30.0 and Acute cystitis with hematuria N30.01 [place] [id number] [place] [address] 34875- 3979 May, Dental examination Z01.20 [facility] [id number] [place] [address] 36572- 2986 May, Hypothyroidism (acquired) E03.9 [place] [id number] [place] [address] 05360- 0045 Feb, [facility] [id number] [place] [address] 62910- 3399 Feb, 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 ; PVD ( peripheral vascular disease) I73.9 ; Type 2 diabetes mellitus with unspecified complications E11.8 and Essential hypertension I10 [place] [id number] [place] [address] 13552- 0126 Jan, [place] [id number] [place] [address] 96675- 2409 Jan, Hypothyroidism (acquired) E03.9 [place] [id number] [place] [address] 17617- 6783 Jan, [place] [address] 47819- 3867 Jan, [place] [id number] [place] [address] 35895- 5315 Jan, Type 2 diabetes mellitus with unspecified complications E11.8 ; 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 and Essential ( primary) hypertension I10 [place] [id number] [place] [address] 46874- 8898 Jan, Type 2 diabetes mellitus with unspecified complications E11.8 ; Status post amputation of toe of left foot Z89.422 ; Essential hypertension I10 and PVD (peripheral vascular disease) I73.9 [place] [id number] [place] [address] 47520- 0077 Jan, [place] [id number] [place] [address] 57107- 1173 Jan, [place] [id number] [place] [address] 94304- 5715 Jan, [place] [id number] [place] [address] 70898- 7921 Jan, Weakness R53.1 ; Fatigue, unspecified type R53.83 ; PVD ( peripheral vascular disease) I73.9 ; Acute osteomyelitis of other site M86.18 ; Type 2 diabetes mellitus with diabetic neuropathy, unspecified E11.40 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 [place] [id number] [place] [address] 20837- 3052 Dec, [place] [id number] [place] [address] 91821- 8219 Dec, Type 2 diabetes mellitus with unspecified complications E11.8 [place] [id number] [place] [address] 46750- 6379 Dec, [place] [id number] [place] [address] 71303- 3829 Dec, Pressure ulcer, unspecified pressure ulcer stage L89.90 and Type 2 diabetes mellitus with unspecified complications E11.8 [facility] [id number] [place] [address] 66536 -5662 Dec, Toe infection L08.9 [place] [id number] [place] [address] 62105- 0983 November, Dental caries K02.9 [place] [id number] [place] [address] 42680- 7443 November, [place] [id number] [place] [address] 43742- 7173 November, Dental examination Z01.20 [place] [id number] [place] [address] 85388- 9741 Sep, Lipoma of torso D17.1 and Thoracic neuritis M54.14 [place] [id number] [place] [address] 19573- 3666 Sep, [place] [id number] [place] [address] 89327- 1694 Aug, [facility] [id number] [place] [address] 79057 -7436 Jul, Dysuria R30.0 and UTI (urinary tract infection) N39.0 [place] [id number] [place] [address] 69152- 1985 Jun, Left shoulder pain M25.512 [place] [id number] [place] [address] 44392- 9842 May, Shoulder pain, left M25.512 [facility] [id number] [place] [address] 72138- 5183 May, [facility] [address] 16678- 6004 May, [facility] [address] 60201- 2086 May, Left shoulder pain M25.512 [place] [address] 57170- 1440 May, [place] [address] 94902- 4154 Apr, Encounter for immunization Z23 [place] [address] 52017- 0967 Apr, Urinary tract infection, site not specified N39.0 ; Hypotension, unspecified I95.9 ; Type 2 diabetes mellitus with unspecified complications E11.8 and Generalized edema R60.1 [place] [id number] [place] [address] 48555- 4315 Apr, [place] [id number] [place] [address] 72664- 6959 Mar, Diabetes with other specified manifestations, type II or unspecified type, not stated as uncontrolled 250.80 [place] [id number] [place] [address] 61370- 3314 Feb, Gout 274.9 and Diabetes 250.00 [place] [id number] [place] [address] 52136- 8274 Jan, [place] [address] 53582- 6069 November, CAD (coronary artery disease) 414.00 and CHF (congestive heart failure) 428.0 [place] [address] 56616- 0011 28 Oct, 2014 [facility] [place] [facility] [address] [id number] [place] [address]- 1475 14 Oct, 2014 [facility] [place] [facility] [address] [facility] [id number] [place] [address]- 6803 Oct, [facility] [place] [facility] [address] [facility] [id number] [place] [address]- 2324 Sep, [facility] [place] [facility] [address] [facility] [id number] [place] [address]- 3511 Sep, [facility] [place] [facility] [address] [facility] [id number] [place] [address]- 1991 Sep, [facility] [place] [facility] [address] [facility] [id number] [place] [address]- 9240 Sep, [facility] [place] [facility] [address] [place] [address]- 0060 Aug, [facility] [place] [facility] [address] [facility] [id number] [place] [address]- 7836 Aug, [facility] [place] [facility] [address] [facility] [id number] [place] [address]- 6470 Aug, 2014 [facility] [place] [facility] [address] [facility] [id number] [place] [address]- 8795 Aug, 2014 [facility] [place] [facility] [address] [place] [id number] [place] [address]- 7550 Aug, 2014 [facility] [place] [facility] [address] [facility] [id number] [place] [address]- 5241 Aug, 2014 [facility] [place] [facility] [address] [facility] [id number] [place] [address]- 3983 Aug, 2014 [facility] [place] [facility] [address] [facility] [id number] [place] [address]- 7120 Aug, 2014 [facility] [place] [facility] [address] [facility] [id number] [place] [address]- 9230 Jul, [facility] [place] [facility] [address] [id number] [place] [address]- 2776 Jul, [facility] [place] [facility] [address] [id number] [place] [address]- 2025 Jul, [facility] [place] [facility] [address] [id number] [place] [address]- 8149 Jul, [facility] [place] [facility] [address] [id number] [place] [address]- 6740 Jul, [facility] [place] [facility] [address] [id number] [place] [address]- 1425 Jul, [facility] [place] [facility] [address] [id number] [place] [address]- 8953 Jul, [facility] [place] [facility] [address] [id number] [place] [address]- 1102 Jul, [facility] [place] [facility] [address] [id number] [place] [address]- 8499 Jul, [facility] [place] [facility] [address] [id number] [place] [address]- 1478 Jul, [facility] [place] [facility] [address] [id number] [place] [address]- 8415 Jun, [facility] [place] [facility] [address] [id number] [place] [address]- 9154 Jun, [facility] [place] [facility] [address] [id number] [place] [address]- 2768 Jun, [facility] [place] [facility] [address] [id number] [place] [address]- 3561 Jun, [facility] [place] [facility] [address] [id number] [place] [address]- 2855 Jun, [facility] [place] [facility] [address] [id number] [place] [address]- 3961 Jun, [facility] [place] [facility] [address] [id number] [place] [address]- 9695 Jun, [facility] [place] [facility] [address] [id number] [place] 4975 Jun, [facility] [place] [facility] [address] [id number] [place] [address]- 0092 Jun, [facility] [place] [facility] [address] [id number] [place] [address]- 6015 Jun, [facility] [place] [facility] [address] [id number] [place] [address]- 6702 May, [facility] [place] [facility] [address] [id number] [place] [address]- 9702 May, [facility] [place] [facility] [address] [id number] [place] [address]- 2528 Mar, [facility] [place] [facility] [address] [id number] [place] [address]- 7111 Mar, [facility] [place] [facility] [address] [id number] [place] [address]- 9618 Mar, [facility] [place] [facility] [address] [id number] [place] [address] Mar, [facility] [place] [facility] [address] [id number] [place] [address] Feb, [facility] [place] [facility] [address] [id number] [place] [address] Feb, [facility] [place] [facility] [address] [id number] [place] [address] Feb, [facility] [place] [facility] [address] [id number] [place] [address] Jan, [facility] [place] [facility] [address] [id number] [place] [address] Jan, [facility] [place] [facility] [address] [id number] [place] [address] Jan, [facility] [place] [facility] [address] [id number] [place] [address] Jan, [facility] [place] [facility] [address] [id number] [place] [address] Jan, [facility] [place] [facility] [address] [id number] [place] [address] Jan, [facility] [place] [facility] [address] [id number] [place] [address] Jan, [facility] [place] [facility] [address] [id number] [place] [address] Jan, [facility] [place] [facility] [address] [id number] [place] [address] Jan, [facility] [place] [facility] [address] [id number] [place] [address] Jan, [facility] [place] [facility] [address] [id number] [place] [address] Dec, [facility] [place] [facility] [address] [id number] [place] [address] Dec, [facility] [place] [facility] [address] [id number] [place] [address] November, [facility] [place] [facility] [address] [id number] [place] [address] November, [facility] [place] [facility] [address] [id number] [place] [address] November, [facility] [place] [facility] [address] [id number] [place] [address] November, [facility] [place] [facility] [address] [id number] [place] [address] November, [facility] [place] [facility] [address] [id number] [place] [address] November, [facility] [place] [facility] [address] [id number] [place] [address] November, [facility] [place] [facility] [address] [id number] [place] [address] Oct, [facility] [place] [facility] [address] [id number] [place] [address] Oct, [facility] [place] [facility] [address] [id number] [place] [address] Sep, [facility] [place] [facility] [address] [address] [id number] [place] [address] Sep, [facility] [place] [facility] [address] [id number] [place] [address] Sep, [facility] [place] [facility] [address] [id number] [place] [address] Sep, [facility] [place] [facility] [address] [id number] [place] [address] 8678 Sep, [facility] [place] [facility] [address] [id number] [place] [address] 5[address] Sep, [facility] [place] [facility] [address] [id number] [place] [address] 47[address] Sep, [facility] [place] [facility] [address] [id number] [place] [address] Sep, [facility] [place] [facility] [address] [id number] [place] [address] 9118 Sep, [facility] [place] [facility] [address] [id number] [place] [address]178 Sep, [facility] [place] [facility] [address] [id number] [place] [address] 8[address] Aug, [facility] [place] [facility] [address] [id number] [place] [address] 6852 Aug, [facility] [place] [facility] [address] [id number] [place] [address] 6[address] Jul, [facility] [place] [facility] [address] [id number] [place] [address] 3[address] Jul, [facility] [place] [facility] [address] [id number] [place] [address] 3772 Jul, [facility] [place] [facility] [address] [id number] [place] [address]- 1699 Jul, [facility] [place] [facility] [address] [id number] [place] [address]- 6107 Jul, [facility] [place] [facility] [address] [id number] [place] [address] 74[address] Jul, [facility] [place] [facility] [address] [id number] [place] [address]- 1652 Jun, [facility] [place] [facility] [address] [id number] [place] [address]- 2549 Jun, [facility] [place] [facility] [address] [id number] [place] [address]- 5822 Jun, [facility] [place] [facility] [address] [id number] [place] [address]- 8125 Jun, [facility] [place] [facility] [address] [id number] [place] [address] 2429 May, [facility] [place] [facility] [address] [id number] [place] [address]- 0886 May, [facility] [place] [facility] [address] [id number] [place] [address]- 1043 May, [facility] [place] [facility] [address] [id number] [place] [address]- 6193 May, [facility] [place] [facility] [address] [id number] [place] [address]- 5112 May, [facility] [place] [facility] [address] [id number] [place] [address]- 1685 Apr, [facility] [place] [facility] [address] [id number] [place] [address]- 1659 Apr, [facility] [place] [facility] [address] [id number] [place] [address] Apr, 2012 [facility] [address] [id number] [place] [address]- 5645 Apr, [facility] [place] [facility] [address] [id number] [place] [address]- 4975 Apr, [facility] [address] [id number] [place] [address]- 4723 Apr, [facility] [place] [facility] [address] [id number] [place] [address]- 3252 Apr, [facility] [address] [id number] [place] [address]- 6085 Apr, [facility] [place] [facility] [address] [id number] [place] [address]- 2492 Apr, [facility] [place] [facility] [address] [id number] [place] [address]- 0395 Apr, [facility] [address] [id number] [place] [address]- 1796 Apr, [facility] [place] [facility] [address] [id number] [place] [address]- 0861 Apr, [facility] [address] [id number] [place] [address] 8825 Mar, [facility] [place] [facility] [address] [id number] [place] [address] 2549 Mar, [facility] [place] [facility] [address] [id number] [place] [address]- 2546 Feb, [facility] [place] [facility] [address] [id number] [place] [address]- 2546 Jan, [facility] [place] [facility] [address] [id number] [place] [address]- 2546 Jan, [facility] [place] [facility] [address] [id number] [place] [address]- 2943 Jan, [facility] [place] [facility] [address] [id number] [place] [address]- 8581 Jan, [facility] [place] [facility] [address] [id number] [place] [address]- 4496 Dec, [facility] [place] [facility] [address] [id number] [place] [address]- 5278 Dec, [facility] [place] [facility] [address] [id number] [place] [address]- 7903 Dec, [facility] [place] [facility] [address] [id number] [place] [address]- 7026 Dec, [facility] [place] [facility] [address] [id number] [place] [address]- 4160 Dec, [facility] [place] [facility] [address] [id number] [place] [address]- 6713 Dec, [facility] [place] [facility] [address] [id number] [place] [address]- 0877 Dec, [facility] [place] [facility] [address] [id number] [place] [address]- 0771 November, [facility] [place] [facility] [address] [id number] [place] [address]- 7796 November, [facility] [place] [facility] [address] [id number] [place] [address]- 6623 November, [facility] [place] [facility] [address] [id number] [place] [address]- 9984 Oct, [facility] [place] [facility] [address] [id number] [place] [address]- 9741 Oct, [facility] [place] [facility] [address] [id number] [place] [address]- 6544 Oct, [facility] [place] [facility] [address] [id number] [place] [address]- 8032 Oct, [facility] [place] [facility] [address] [id number] [place] [address]- 1726 Oct, [facility] [address] [id number] [place] [address]- 7661 26 Sep, 2012 [facility] [place] [facility] [address] [id number] [place] [address]- 1032 Sep, [facility] [place] [facility] [address] [id number] [place] [address]- 0036 Sep, [facility] [place] [facility] [address] [id number] [place] [address]- 3314 Sep, [facility] [place] [facility] [address] [id number] [place] [address]- 1387 Aug, [facility] [place] [facility] [address] [id number] [place] [address]- 5276 Aug, [facility] [address] [id number] [place] [address]- 3062 Aug, [facility] [address] [id number] [place] [address]- 4630 Aug, [facility] [place] [facility] [address] [id number] [place] [address]- 8525 Jul, [facility] [address] [id number] [place] [address]- 9679 Jul, [facility] [address] [id number] [place] [address]- 3166 Jun, [facility] [place] [facility] [address] [id number] [place] [address] Jun, [facility] [place] [facility] [address] [id number] [place] [address]- 4264 Jun, [facility] [place] [facility] [address] [id number] [place] [address] Jun, [facility] [place] [facility] [address] [id number] [place] [address]- 9178 May, [facility] [place] [facility] [address] [id number] [place] [address]- 4246 May, [facility] [place] [facility] [address] [id number] [place] [address]- 9151 May, [facility] [place] [facility] [address] [id number] [place] [address]- 0701 May, [facility] [place] [facility] [address] [id number] [place] [address]- 2959 Apr, [facility] [place] [facility] [address] [id number] [place] [address]- 9735 Apr, [facility] [place] [facility] [address] [id number] [place] [address]- 0367 Apr, [facility] [place] [facility] [address] [id number] [place] [address]- 2251 Apr, [facility] [place] [facility] [address] [id number] [place] [address]- 8040 Apr, [facility] [place] [facility] [address] [id number] [place] [address]- 5812 Apr, [facility] [place] [facility] [address] [id number] [place] [address]- 8243 Apr, [facility] [place] [facility] [address] [id number] [place] [address]- 8189 Apr, [facility] [place] [facility] [address] [id number] [place] [address]- 7072 Apr, [facility] [place] [facility] [address] [id number] [place] [address] Apr, [facility] [place] [facility] [address] [id number] [place] [address]- 8398 Feb, [facility] [place] [facility] [address] [id number] [place] [address]- 6140 Feb, [facility] [place] [facility] [address] [id number] [place] [address]- 1536 Jan, [facility] [place] [facility] [address] [id number] [place] [address]- 4679 Jan, [facility] [place] [facility] [address] [id number] [place] [address]- 6096 Jan, [facility] [place] [facility] [address] [id number] [place] [address]- 0914 Jan, [facility] [place] [facility] [address] [id number] [place] [address]- 2404 Jan, [facility] [place] [facility] [address] [id number] [place] [address]- 1035 Jan, [facility] [place] [facility] [address] [id number] [place] [address]- 3724 Dec, [facility] [place] [facility] [address] [id number] [place] [address]- 3971 November, [facility] [place] [facility] [address] [id number] [place] [address]- 8869 November, [facility] [place] [facility] [address] [id number] [place] [address]- 4764 November, [facility] [place] [facility] [address] [id number] [place] [address]- 9892 Sep, [facility] [place] [facility] [address] [id number] [place] [address]- 9525 Sep, [facility] [place] [facility] [address] [id number] [place] [address]- 6948 Sep, [facility] [place] [facility] [address] [id number] [place] [address]- 7050 Sep, [facility] [place] [facility] [address] [id number] [place] [address] Sep, [facility] [place] [facility] [address] [id number] [place] [address]- 9763 Sep, [facility] [place] [facility] [address] [id number] [place] [address]- 6598 13 Aug, 2011 [facility] [place] [facility] [address] [id number] [place] [address]- 9236 Aug, [facility] [place] [facility] [address] [id number] [place] [address]- 3956 Aug, [facility] [place] [facility] [address] [id number] [place] [address]- 9106 Jul, [facility] [place] [facility] [address] [id number] [place] [address]- 4483 Jul, [facility] [place] [facility] [address] [id number] [place] [address]- 3243 Jul, [facility] [place] [facility] [address] [id number] [place] [address]- 8610 Jul, [facility] [place] [facility] [address] [id number] [place] [address]- 6162 Jun, [facility] [place] [facility] [address] [id number] [place] [address]- 9155 Jun, [facility] [place] [facility] [address] [id number] [place] [address]- 0837 Jun, [facility] [place] [facility] [address] [id number] [place] [address]- 2362 Jun, [facility] [place] [facility] [address] [id number] [place] [address]- 4183 Jun, [facility] [place] [facility] [address] [id number] [place] [address]- 3099 Jun, [facility] [place] [facility] [address] [id number] [place] [address]- 0226 May, [facility] [place] [facility] [address] [id number] [place] [address]- 7696 May, [facility] [place] [facility] [address] [id number] [place] [address]- 4249 May, [facility] [address] [id number] [place] [address]- 2409 Apr, [facility] [place] [facility] [address] [id number] [place] [address]- 4026 Jan, [facility] [address] [id number] [place] [address] 20 Jun, 2010 [facility] [place] [facility] [address] [id number] [place] [address]- 5166 20 Jun, 2010 [facility] [address] [id number] [place] [address]- 4906 15 Jun, 2010 [facility] [address] [id number] [place] [address]- 6876 15 Jun, 2010 [facility] [address] [id number] [place] [address]- 5318 15 Jun, 2010 [facility] [place] [facility] [address] [id number] [place] [address]- 9751 13 Jun, 2010 [facility] [address] [id number] [place] [address]- 0535 Jun, [facility] [place] [facility] [address] [id number] [place] [address]- 7041 Apr, [facility] [place] [facility] [address] [id number] [place] [address]- 0724 Feb, [facility] [place] [facility] [address] [id number] [place] [address]- 8288 15 Aug, 2009 [facility] [place] [facility] [address] [id number] [place] [address]- 1226 Jul, [facility] [place] [facility] [address] [id number] [place] [address]- 0496 Jul, [facility] [place] [facility] [address] [id number] [place] [address]- 0786 29 Jun, 2009 [facility] [place] [facility] [address] [id number] [place] [address]- 9077 Jun, [facility] [address] [id number] [place] [address]- 1206 28 Jun, 2009 [facility] [place] [facility] [address] [id number] [place] [address] 2546 Jun, [facility] [address] [id number] [place] [address]- 1356 16 Jun, 2009 [facility] [place] [facility] [address] [id number] [place] [address] 2546 Jun, [facility] [place] [facility] [address] [id number] [place] [address]- 9971 Jun, [facility] [place] [facility] [address] [facility] [id number] [place] [address]- 4570 30 May, 2009 [facility] [place] [facility] [address] [facility] [id number] [place] [address]- 4287 27 May, 2009 [facility] [place] [facility] [address] [id number] [place] [address]- 3046 23 May, 2009 [facility] [place] [facility] [address] [facility] [id number] [place] [address]- 2373 May, [facility] [place] [facility] [address] [facility] [id number] [place] [address]- 4744 18 May, 2009 [facility] [place] [facility] [address] [id number] [place] [address] 2542 16 May, 2009 [facility] [place] [facility] [address] [facility] [id number] [place] [address]- 2542 03 May, 2009 [facility] [place] [facility] [address] [id number] [place] [address]- 2288 16 Apr, 2009 [facility] [place] [facility] [address] [facility] [id number] [place] [address]- 2546 12 Apr, 2009 [facility] [place] [facility] [address] [id number] [place] [address]- 7964 Jan, [facility] [place] [facility] [address] [facility] [id number] [place] [address]- 1739 16 Oct, 2008 IMMUNIZATIONS No Known Immunizations SOCIAL HISTORY Never Assessed REASON FOR VISIT increase Arice[facility] - Dr Kwan PLAN OF CARE VITAL SIGNS MEDICATIONS Medication Instructions Dosage Frequency Start Date End Date Duration Status Donepezil HCl 10 MG Orally Once a day 1 tablet at bedtime 24h Jul, Active RESULTS No Results PROCEDURES No Known [...]
--- OUTSIDE RECORDS SUMMARY | 2018-11-09 13:22 | XMS REPORT ---
Author Author PRABHA HILL [facility] Address [address] [place] [address] Care Team Providers Care Communications Strategist Name Role Phone PRABHA HILL Unavailable PROBLEMS Type Condition ICD9-CM Code DAU51-PX Code Onset Dates Condition Status SNOMED Code Problem Hyperlipemia, mixed E78.2 Active 047703415 Problem Hypoglycemia E16.2 Active 465708417 Problem Hypernatremia E87.0 Active 60797349 Problem Neurogenic orthostatic hypotension G90.3 Active 502846029 Problem Dementia with Lewy bodies G31.83 Active 445014426 Problem Mixed stress and urge urinary incontinence N39.46 Active 704263018 Problem 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 Active 3523595783902 Problem Unsteady gait R26.81 Active 60318504 Problem Hallucinations R44.3 Active 3973996 Problem Parkinsons disease G20 Active 35462715 Problem Episodic cluster headache, not intractable G44.019 Active 439352276 Problem Type 2 diabetes mellitus with unspecified complications E11.8 Active 52962174 Problem PVD (peripheral vascular disease) I73.9 Active 778147472 Problem Dementia in other diseases classified elsewhere without behavioral disturbance F02.80 Active 179230889 Problem Dysuria R30.0 Active 70370474 Problem Hypothyroidism (acquired) E03.9 Active 942319920 Problem Neuropathy G62.9 Active 650870515 Problem Status post amputation of toe of left foot Z89.422 Active 134959408 Problem Dysthymia F34.1 Active 43805236 Problem Essential hypertension I10 Active 42763138 Problem Polydipsia R63.1 Active 94848396 ALLERGIES Substance Reaction Event Type Date Status Sulfamethoxazole-Trimethoprim Unknown Drug Allergy Apr, Active Protamine Sulfate Unknown Drug Allergy Apr, Active Penicillin V Potassium Unknown Drug Allergy Apr, Active ENCOUNTERS Encounter Location Date Diagnosis [facility] [address], [place] [address] Dec, [facility] [id number] [place] [address] 51965- 1829 Oct, [facility] [id number] [place] [address] 58114 -8305 Oct, [facility] [id number] [place] [address] 90959- 6789 Oct, Parkinsons disease G20 [facility] [id number] [place] [address] 85581 -7634 18 Oct, 2017 Acute cystitis without hematuria N30.00 and Viral upper respiratory tract infection J06.9 [facility] [id number] [place] [address] 31484- 1385 Oct, [facility] [id number] [place] [address] 28618- 6956 Oct, Type 2 diabetes mellitus with unspecified complications E11.8 [facility] [id number] [place] [address] 27433- 3699 Oct, Left shoulder pain M25.512 [facility] [id number] [place] [address] 18829- 2368 Oct, Type 2 diabetes mellitus with unspecified complications E11.8 ; Dysuria R30.0 and Neurogenic orthostatic hypotension G90.3 [facility] [id number] [place] [address] 37329- 5903 Sep, Left shoulder pain M25.512 [facility] [id number] [place] [address] 92841- 5160 12 Sep, 2017 Medicare annual wellness visit, [...] Mixed stress and urge urinary incontinence N39.46 [facility] [address] 50622- 4554 25 Aug, 2017 Parkinsons disease G20 [facility] [address] 27372- 4735 Aug, Type 2 diabetes mellitus with unspecified complications E11.8 ; Left shoulder pain M25.512 and Hypotensive episode I95.9 [facility] [address] 42428- 4797 Aug, 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 [facility] [address] 02918- 4479 07 Aug, 2017 Type 2 diabetes mellitus with unspecified complications E11.8 [facility] [address] 03879- 0688 Jul, Callus of foot L84 [facility] [facility] [address] 28323- 9585 Jul, [facility] [address] 95885- 9733 Jul, Callus of foot L84 ; Episodic cluster headache, not intractable G44.019 ; Type 2 diabetes mellitus with unspecified complications E11.8 and Parkinsons disease G20 [facility] [id number] [place] [address] 41194- 6915 Jul, [facility] [address] 64502- 3894 Jul, [facility] [address] 37622- 8574 Jun, Type 2 diabetes mellitus with unspecified complications E11.8 ; Unsteady gait R26.81 ; Forgetfulness R68.89 and Hallucinations R44.3 [facility] [id number] [place] [address] 27214- 9619 Jun, [facility] [id number] [place] [address] 87904- 4179 Jun, Left shoulder pain M25.512 [facility] [id number] [place] [address] 51148- 2183 May, Hypernatremia E87.0 and Polydipsia R63.1 [facility] [id number] [place] [address] 71712- 0729 May, Hypernatremia E87.0 and Polydipsia R63.1 [facility] [id number] [place] [address] 41571- 9422 May, Hypoglycemia E16.2 ; Dysuria R30.0 ; Unsteadiness on feet R26.81 ; Forgetfulness R68.89 ; Type 2 diabetes mellitus with unspecified complications E11.8 and Yeast infection involving the vagina and surrounding area B37.3 [facility] [id number] [place] [address] 40676- 9487 May, Acute cystitis without hematuria N30.00 [facility] [id number] [place] [address] 97857 -8587 Apr, Dysuria R30.0 and Acute cystitis without hematuria N30.00 [facility] [id number] [place] [address] 78612- 5055 Apr, Hypernatremia E87.0 and Polydipsia R63.1 [facility] [id number] [place] [address] 48904- 8805 Apr, Vertigo R42 and Type 2 diabetes mellitus with unspecified complications E11.8 [facility] [id number] [place] [address] 14287- 2549 Mar, [facility] [id number] [place] [address] 78210- 4434 19 Mar, 2017 Left shoulder pain M25.512 [facility] [id number] [place] [address] 39740- 7990 13 Mar, 2017 Vertigo R42 [facility] [id number] [place] [address] 03746- 7918 12 Mar, 2017 Polydipsia R63.1 [facility] [address] 19129- 3566 12 Mar, 2017 Polydipsia R63.1 [facility] [address] 58617- 5514 11 Mar, 2017 Vertigo R42 [facility] [address] 11711- 0808 07 Mar, 2017 Type 2 diabetes mellitus with unspecified complications E11.8 ; Vertigo R42 ; Polydipsia R63.1 ; Polyuria R35.8 ; Hypothyroidism ( acquired) E03.9 ; Abnormal urinalysis R82.90 and Dysthymia F34.1 [facility] [address] 85818- 7381 05 Mar, 2017 Coronary artery disease of naknek artery with stable angina pectoris, unspecified whether naknek or transplanted heart I25.118 ; Systolic CHF, chronic I50.22 ; Hyperlipemia, mixed E78.2 and Essential hypertension I10 [facility] [id number] [place] [address] [id number] Feb, Dental caries K02.9 [place] [place] [id number] [place] [address] 52161- 9553 Feb, Type 2 diabetes mellitus with diabetic neuropathy, unspecified E11.40 [facility] [address] 26049- 5223 23 Dec, 2016 Left shoulder pain M25.512 [facility] [address] 95527- 9244 16 Dec, 2016 [facility] [address] [place] [address]- 4634 15 Dec, 2016 Type 2 diabetes mellitus with unspecified complications E11.8 [facility] [id number] [place] [address] [phone] 15 Dec, 2016 Dental examination Z01.20 [facility] [id number] [place] [address] 75975- 2076 08 Dec, 2016 Type 2 diabetes mellitus with diabetic neuropathy, unspecified E11.40 [facility] [id number] [place] [address] 90160- 6350 Dec, [facility] [id number] [place] [address] 77557- 3397 Dec, Type 2 diabetes mellitus with diabetic neuropathy, unspecified E11.40 [facility] [id number] [place] [address] 16761- 3993 November, Left shoulder pain M25.512 [facility] [id number] [place] [address] 66241- 0466 November, [facility] [id number] [place] [address] 56254- 5848 November, Type 2 diabetes mellitus with unspecified complications E11.8 and Dysuria R30.0 [facility] [id number] [place] [address] 30517- 2817 Oct, Left shoulder pain M25.512 [facility] [id number] [place] [address] 92162- 1125 Sep, Left shoulder pain M25.512 [facility] [address], [place] [address]- 1060 Sep, Pre-op testing Z01.818 [facility] [id number] [place] [address] 47182- 5891 Sep, Pre-op testing Z01.818 [facility] [id number] [place] [address] 39033- 1744 Sep, Pre-op testing Z01.818 [facility] [id number] [place] [address] 14869- 0595 Sep, Pre-op testing Z01.818 and Mouth pain K13.79 [facility] [id number] [place] [address] 02767- 8693 Sep, Left shoulder pain M25.512 [facility] [address] 15111- 7048 Aug, Other eczema L30.8 [facility] [address] 84752- 3899 Aug, PVD (peripheral vascular disease) I73.9 ; Type 2 diabetes mellitus with unspecified complications E11.8 ; Acute cystitis with hematuria N30.01 ; Other eczema L30.8 ; Dysuria R30.0 and Left shoulder pain M25.512 [facility] [address] 33575 -6695 Jul, Otalgia of right ear H92.01 and Blood in ear canal, right H92.21 [facility] [address] 67698- 0514 Jul, Arthralgia, unspecified joint M25.50 ; PVD (peripheral vascular disease) I73.9 and Neuropathy G62.9 [facility] [place] [id number] [place] [address] 66604- 1986 Jul, [facility] [id number] [place] [address] 95953- 7705 Jun, Medicare annual wellness visit, initial Z00.00 ; Cervicalgia M54.2 ; Radiculopathy of cervical region M54.12 ; Encounter for immunization Z23 ; Type 2 diabetes mellitus with unspecified complications E11.8 and Essential hypertension I10 [facility] [id number] [place] [address] 97981- 3337 Jun, [facility] [address] [place] [address]- 3412 May, Hypothyroidism (acquired) E03.9 [facility] [address] 76356- 2554 May, Dysuria R30.0 ; Essential hypertension I10 ; Hypothyroidism (acquired) E03.9 and PVD (peripheral vascular disease) I73.9 [facility] [id number] [place] [address] 67537 -3490 May, Burning with urination R30.0 and Acute cystitis with hematuria N30.01 [facility] [address] 89839- 0852 May, Dental examination Z01.20 [facility] [address] 21585- 1166 May, Hypothyroidism (acquired) E03.9 [facility] [address] 32037- 5572 Feb, [facility] [address] 04437- 8667 Feb, Status post amputation of toe of left foot Z89.422 ; PVD ( peripheral vascular disease) I73.9 ; Type 2 diabetes mellitus with unspecified complications E11.8 and Essential hypertension I10 [facility] [id number] [place] [address] 45575- 1862 Jan, [facility] [address] 36837- 9865 Jan, Hypothyroidism (acquired) E03.9 [facility] [id number] [place] [address] 63984- 8206 Jan, [facility] [id number] [place] [address] 15718- 5736 Jan, [facility] [id number] [place] [address] 43103- 2061 Jan, Type 2 diabetes mellitus with unspecified complications E11.8 ; Status post amputation of toe of left foot Z89.422 and Essential ( primary) hypertension I10 [facility] [id number] [place] [address] 26583- 9847 Jan, Type 2 diabetes mellitus with unspecified complications E11.8 ; Status post amputation of toe of left foot Z89.422 ; Essential hypertension I10 and PVD (peripheral vascular disease) I73.9 [facility] [id number] [place] [address] 40401- 6374 Jan, [facility] [id number] [place] [address] 21495- 7366 Jan, [facility] [id number] [place] [address] 65594- 4815 Jan, [facility] [id number] [place] [address] 05555- 3746 Jan, Weakness R53.1 ; Fatigue, unspecified type R53.83 ; PVD ( peripheral vascular disease) I73.9 ; Acute osteomyelitis of other site M86.18 ; Type 2 diabetes mellitus with diabetic neuropathy, unspecified E11.40 and intermediate card tender 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.4 [facility] [id number] [place] [address] 29453- 5682 Dec, [facility] [id number] [place] [address] 96988- 7715 Dec, Type 2 diabetes mellitus with unspecified complications E11.8 [facility] [id number] [place] [address] 69515- 6569 Dec, [facility] [id number] [place] [address] 83453- 7581 Dec, Pressure ulcer, unspecified pressure ulcer stage L89.90 and Type 2 diabetes mellitus with unspecified complications E11.8 [facility] [address], [place] [address] -8301 Dec, Toe infection L08.9 [facility] [address] [address]- 9343 November, Dental caries K02.9 [facility] [id number] [place] [address] 26210- 0047 November, [facility] [id number] [place] [address] 64672- 2211 November, Dental examination Z01.20 [facility] [id number] [place] [address] 10413- 8152 Sep, Lipoma of torso D17.1 and Thoracic neuritis M54.14 [facility] [id number] [place] [address] 69487- 7705 Sep, [facility] [id number] [place] [address] 17525- 8167 Aug, [facility] [id number] [place] [address] 24595 -6360 Jul, Dysuria R30.0 and UTI (urinary tract infection) N39.0 [facility] [id number] [place] [address] 57476- 2953 Jun, Left shoulder pain M25.512 [facility] [id number] [place] [address] 36887- 8749 May, Shoulder pain, left M25.512 [facility] [id number] [place] [address] 53512- 6468 May, [facility] [id number] [place] [address] 70598- 0283 May, [facility] [id number] [place] [address] 12186- 5499 May, Left shoulder pain M25.512 [facility] [id number] [place] [address] 39006- 9456 May, [facility] [id number] [place] [address] 62777- 9533 Apr, Encounter for immunization Z23 [facility] [id number] [place] [address] 86305- 1642 Apr, Urinary tract infection, site not specified N39.0 ; Hypotension, unspecified I95.9 ; Type 2 diabetes mellitus with unspecified complications E11.8 and Generalized edema R60.1 [facility] [id number] [place] [address] 33924- 0187 Apr, [facility] [id number] [place] [address] 11767- 7310 Mar, Diabetes with other specified manifestations, type II or unspecified type, not stated as uncontrolled 250.80 [facility] [address] 64836- 4641 Feb, Gout 274.9 and Diabetes 250.00 [facility] [id number] [place] [address] 39178- 1145 Jan, [facility] [id number] [place] [address] 06286- 3123 November, CAD (coronary artery disease) 414.00 and CHF (congestive heart failure) 428.0 [facility] [id number] [place] [address] 21718- 6001 Oct, [facility] [id number] [place] [address] 60599- 3749 Oct, [facility] [id number] [place] [address] 94452- 1060 Oct, [facility] [id number] [place] [address] 49881- 2445 Sep, [facility] [id number] [place] [address] 84014- 5553 Sep, [facility] [id number] [place] [address] 56209- 5583 Sep, [facility] [id number] [place] [address] 41153- 7256 Sep, [facility] [place] [facility] [address] [id number] [place] [address]- 7336 Aug, 2014 [facility] [place] [facility] [address] [id number] [place] 5136 Aug, 2014 [facility] [place] [facility] [address] [facility] [id number] [place] [address]- 9216 Aug, 2014 [facility] [place] [facility] [address] [id number] [place] [address]- 8635 Aug, 2014 [facility] [place] [facility] [address] [id number] [place] [address]- 0286 Aug, 2014 [facility] [place] [facility] [address] [facility] [id number] [place] [address]- 2104 Aug, [facility] [place] [facility] [address] [facility] [id number] [place] [address]- 7907 Aug, [facility] [place] [facility] [address] [facility] [id number] [place] [address]- 2588 Aug, [facility] [place] [facility] [id number] [place] [address]- 6804 Jul, [facility] [place] [facility] [address] [facility] [id number] [place] [address]- 0113 Jul, [facility] [place] [facility] [address] [facility] [id number] [place] [address]- 3311 Jul, [facility] [place] [facility] [address] [facility] [id number] [place] [address]- 0923 Jul, [facility] [place] [facility] [address] [facility] [id number] [place] [address]- 2057 Jul, [facility] [place] [facility] [address] [facility] [id number] [place] [address]- 4686 Jul, [facility] [place] [facility] [address] [facility] [id number] [place] [address]- 3811 Jul, [facility] [place] [facility] [address] [id number] [place] [address]- 1470 Jul, [facility] [place] [facility] [address] [id number] [place] [address]- 5619 Jul, [facility] [place] [facility] [address] [id number] [place] [address]- 4426 Jul, [facility] [place] [facility] [address] [id number] [place] [address]- 9826 Jun, [facility] [place] [facility] [address] [id number] [place] [address]- 5900 Jun, [facility] [place] [facility] [address] [id number] [place] [address]- 0684 Jun, [facility] [place] [facility] [address] [id number] [place] [address]- 1373 Jun, [facility] [place] [facility] [address] [id number] [place] [address]- 4474 Jun, [facility] [place] [facility] [address] [id number] [place] [address]- 1422 Jun, [facility] [place] [facility] [address] [id number] [place] [address]- 1132 Jun, [facility] [place] [facility] [address] [id number] [place] [address]- 7178 Jun, [facility] [place] [facility] [address] [id number] [place] [address]- 7379 Jun, [facility] [place] [facility] [address] [id number] [place] [address]- 8149 Jun, [facility] [place] [facility] [address] [id number] [place] [address]- 3000 May, [facility] [place] [facility] [address] [id number] [place] [address]- 0952 May, [facility] [place] [facility] [address] [id number], [place] [address]- 4038 Mar, [facility] [place] [facility] [address] [id number] [place] [address]- 4587 18 Mar, 2014 [facility] [place] [facility] [address] [id number] [place] [address]- 6738 Mar, [facility] [place] [facility] [address] [id number] [place] [address]- 8331 Mar, [facility] [place] [facility] [address] [id number] [place] [address]- 1996 Feb, [facility] [place] [facility] [address] [id number] [place] [address]- 7000 Feb, [facility] [place] [facility] [address] [id number] [place] [address]- 9291 Feb, [facility] [place] [facility] [address] [id number] [place] [address]- 5725 Jan, [facility] [place] [facility] [address] [id number] [place] [address]- 4244 Jan, [facility] [place] [facility] [address] [id number] [place] [address]- 8225 Jan, [facility] [place] [facility] [address] [id number] [place] [address]- 9359 Jan, [facility] [place] [facility] [address] [id number] [place] [address]- 2889 Jan, [facility] [place] [facility] [address] [id number] [place] [address]- 6211 Jan, [facility] [place] [facility] [address] [id number] [place] [address]- 9721 Jan, [facility] [place] [facility] [address] [id number] [place] [address]- 5617 Jan, [facility] [place] [facility] [address] [id number] [place] [address]- 9605 Jan, [facility] [place] [facility] [address] [id number] [place] [address]- 5362 Jan, [facility] [place] [facility] [address] [id number] [place] [address]- 2387 Dec, [facility] [place] [facility] [address] [id number] [place] [address] Dec, [facility] [place] [facility] [address] [id number] [place] [address] November, [facility] [place] [facility] [address] [id number] [place] [address] November, [facility] [place] [facility] [address] [id number] [place] [address] November, [facility] [place] [facility] [address] [id number] [place] [address] [address] November, [facility] [place] [facility] [address] [id number] [place] [address] November, [facility] [place] [facility] [address] [id number] [place] [address] November, [facility] [place] [facility] [address] [id number] [place] [address] November, [facility] [place] [facility] [address] [id number] [place] [address] Oct, [facility] [place] [facility] [address] [id number] [place] [address] Oct, [facility] [place] [facility] [address] [id number] [place] [address] Sep, [facility] [place] [facility] [address] [id number] [place] [address] Sep, [facility] [place] [facility] [address] [id number] [place] [address] Sep, [facility] [place] [facility] [address] [id number] [place] [address] Sep, [facility] [place] [facility] [address] [id number] [place] [address] Sep, [facility] [place] [facility] [address] [id number] [place] [address] Sep, [facility] [place] [facility] [address] [id number] [place] [address] Sep, [facility] [place] [facility] [address] [id number] [place] [address] Sep, [facility] [place] [facility] [address] [id number] [place] [address] Sep, [facility] [place] [facility] [address] [id number] [place] [address] Sep, [facility] [place] [facility] [address] [id number] [place] [address] Aug, [facility] [place] [facility] [address] [id number] [place] [address] Aug, [facility] [place] [facility] [address] [id number] [place] [address] Jul, [facility] [place] [facility] [address] [id number] [place] [address] Jul, [facility] [place] [facility] [address] [id number] [place] [address] Jul, [facility] [place] [facility] [address] [id number] [place] [address] Jul, [facility] [place] [facility] [address] [address] [id number] [place] [address] Jul, [facility] [place] [facility] [address] [id number] [place] [address] Jul, [facility] [place] [facility] [address] [id number] [place] [address] Jun, [facility] [place] [facility] [address] [id number] [place] [address] 06 Jun, 2012 [facility] [address] [id number] [place] [address] Jun, [facility] [place] [facility] [address] [id number] [place] [address] Jun, [facility] [address] [id number] [place] [address] 14 May, 2013 [facility] [place] [facility] [address] [id number] [place] [address] 14 May, 2013 [facility] [address] [id number] [place] [address] 1190 May, [facility] [place] [facility] [address] [id number] [place] [address] 9471 May, [facility] [address] [id number] [place] [address] May, [facility] [address] [id number] [place] [address] 240[address] Apr, [facility] [place] [facility] [address] [id number] [place] [address] 9980 31 Apr, 2013 [facility] [address] [id number] [place] [address] 86[address] Apr, [facility] [place] [facility] [address] [id number] [place] [address] 28 Apr, 2013 [facility] [place] [facility] [address] [id number] [place] [address] 69[address] 28 Apr, 2013 [facility] [place] [facility] [address] [id number] [place] [address] 2909 28 Apr, 2013 [facility] [place] [facility] [address] [id number] [place] [address] 1107 23 Apr, 2013 [facility] [place] [facility] [address] [id number] [place] [address]- 59[address] Apr, [facility] [place] [facility] [address] [id number] [place] [address] 9[address] Apr, [facility] [place] [facility] [address] [id number] [place] [address] Apr, [facility] [place] [facility] [address] [id number] [place] [address] 5755 Apr, [facility] [place] [facility] [address] [id number] [place] [address] 7[address] Apr, [facility] [place] [facility] [address] [id number] [place] [address]131 Mar, [facility] [place] [facility] [address] [id number] [place] [address] 7258 Mar, [facility] [place] [facility] [address] [id number] [place] [address] 8281 Feb, [facility] [place] [facility] [address] [id number] [place] [address] 66[address] Jan, [facility] [place] [facility] [address] [id number] [place] [address] 0967 Jan, [facility] [place] [facility] [address] [id number] [place] [address]994 Jan, [facility] [place] [facility] [address] [id number] [place] [address] 79[address] Jan, [facility] [place] [facility] [address] [id number], [place] [address] Dec, [facility] [place] [facility] [address] [id number] [place] [address] Dec, [facility] [place] [facility] [address] [id number] [place] [address] Dec, [facility] [place] [facility] [address] [id number], [place] [address] Dec, [facility] [place] [facility] [address] [id number], [place] [address] Dec, [facility] [address] [id number] [place] [address] 1442 Dec, [facility] [address] [id number] [place] [address] 1083 Dec, [facility] [address] [id number] [place] [address] November, [facility] [address] [id number] [place] [address] November, [facility] [address] [id number] [place] [address] 2954 November, [facility] [address] [id number] [place] [address] 2251 Oct, [facility] [address] [id number] [place] [address] Oct, [facility] [address] [id number] [place] [address] 8668 Oct, [facility] [address] [id number] [place] [address] 5318 Oct, [facility] [address] [id number] [place] [address]- 5[address] Oct, [facility] [address] [id number] [place] [address] 2844 Sep, [facility] [place] [facility] [address] [id number] [place] [address] 4209 Sep, [facility] [place] [facility] [address] [id number] [place] [address]- 5896 Sep, [facility] [place] [facility] [address] [id number] [place] [address]- 0871 Sep, [facility] [place] [facility] [address] [id number] [place] [address] 9751 Aug, [facility] [place] [facility] [address] [id number] [place] [address]- 0766 05 Aug, 2012 [facility] [place] [facility] [address] [id number] [place] [address] 1531 Aug, [facility] [place] [facility] [address] [id number] [place] [address] 2976 Aug, [facility] [place] [facility] [address] [id number] [place] [address]- 5875 Jul, [facility] [place] [facility] [address] [id number] [place] [address] 3227 Jul, [facility] [place] [facility] [address] [id number] [place] [address] 4044 Jun, [facility] [place] [facility] [address] [id number] [place] [address] 7355 Jun, [facility] [place] [facility] [address] [id number] [place] [address] 2718 Jun, [facility] [place] [facility] [address] [id number] [place] [address] 2793 Jun, [facility] [place] [facility] [address] [id number] [place] [address] 455[address] May, [facility] [place] [facility] [address] [id number] [place] [address] 7091 May, [facility] [place] [facility] [address] [id number] [place] [address]- 8945 May, [facility] [place] [facility] [address] [id number] [place] [address]- 3655 May, [facility] [place] [facility] [address] [id number] [place] [address]- 0602 Apr, [facility] [place] [facility] [address] [id number] [place] [address]- 1702 Apr, [facility] [place] [facility] [address] [id number] [place] [address]- 8553 Apr, [facility] [place] [facility] [address] [id number] [place] [address] 3014 Apr, [facility] [place] [facility] [address] [id number] [place] [address]- 4756 Apr, [facility] [place] [facility] [address] [id number] [place] [address]- 9614 Apr, [facility] [place] [facility] [address] [id number] [place] [address]- 4946 Apr, [facility] [place] [facility] [address] [id number] [place] [address]- 4463 Apr, [facility] [place] [facility] [address] [id number] [place] [address]- 0036 Apr, [facility] [place] [facility] [address] [id number] [place] [address]- 7225 Apr, [facility] [place] [facility] [address] [id number] [place] [address]- 3935 Feb, [facility] [place] [facility] [address] [id number] [place] [address]- 8795 Feb, [facility] [place] [facility] [address] [id number] [place] [address]- 4479 Jan, [facility] [place] [facility] [address] [id number] [place] [address]- 7493 Jan, [facility] [place] [facility] [address] [id number], [place] [address] 8670 Jan, [facility] [place] [facility] [address] [id number] [place] [address]- 6299 Jan, [facility] [place] [facility] [address] [id number] [place] [address]- 5398 Jan, [facility] [place] [facility] [address] [id number] [place] [address]- 2001 Jan, [facility] [place] [facility] [address] [id number] [place] [address]- 4922 Dec, [facility] [address] [id number] [place] [address]- 1043 November, [facility] [address] [id number] [place] [address]- 0606 November, [facility] [address] [id number] [place] [address]- 9082 November, [facility] [address] [id number] [place] [address]- 6341 Sep, [facility] [address] [id number] [place] [address]- 2523 Sep, [facility] [address] [id number] [place] [address]- 1306 Sep, [facility] [address] [id number] [place] [address]- 7040 08 Sep, 2011 [facility] [address] [id number] [place] [address]- 4051 07 Sep, 2011 [facility] [address] [id number] [place] [address]- 4983 07 Sep, 2011 [facility] [address] [id number] [place] [address]- 2689 13 Aug, 2011 [facility] [address] [id number] [place] [address]- 2126 Aug, [facility] [address] [id number] [place] [address]- 9976 Aug, [facility] [address] [id number] [place] [address]- 7716 Jul, [facility] [address] [id number] [place] [address]- 7866 Jul, [facility] [address] [id number] [place] [address]- 8952 Jul, [facility] [address] [id number] [place] [address]- 2244 Jul, [facility] [place] [facility] [address] [id number] [place] [address]- 1929 Jun, [facility] [place] [facility] [address] [id number] [place] [address]- 1870 Jun, [facility] [place] [facility] [address] [id number] [place] [address]- 8784 Jun, [facility] [place] [facility] [address] [id number] [place] [address]- 9916 Jun, [facility] [place] [facility] [address] [id number] [place] [address]- 3969 Jun, [facility] [place] [facility] [address] [id number] [place] [address]- 6544 Jun, [facility] [place] [facility] [address] [id number] [place] [address]- 7893 May, [facility] [place] [facility] [address] [id number] [place] [address]- 8633 May, [facility] [place] [facility] [address] [id number] [place] [address]- 9903 May, [facility] [place] [facility] [address] [id number] [place] [address]- 0858 Apr, [facility] [place] [facility] [address] [id number] [place] [address]- 4793 Jan, [facility] [place] [facility] [address] [id number] [place] [address]- 9063 Jun, [facility] [place] [facility] [address] [id number] [place] [address]- 6169 Jun, [facility] [place] [facility] [address] [id number] [place] [address]- 3099 Jun, [facility] [place] [facility] [address] [id number] [place] [address]- 3346 15 Jun, 2010 [facility] [address] [id number] [place] [address]- 7966 15 Jun, 2010 [facility] [address] [id number] [place] [address] 13 Jun, 2010 [facility] [address] [id number] [place] [address]- 8966 13 Jun, 2010 [facility] [address] [id number] [place] [address] 2546 Apr, [facility] [address] [id number] [place] [address]- 4276 17 Feb, 2010 [facility] [address] [id number] [place] [address]- 7766 15 Aug, 2009 [facility] [address] [id number] [place] [address]- 2816 18 Jul, 2009 [facility] [address] [id number] [place] [address]- 4707 11 Jul, 2009 [facility] [address] [id number] [place] [address]- 9326 29 Jun, 2009 [facility] [address] [id number] [place] [address]- 7488 28 Jun, 2009 [facility] [address] [id number] [place] [address]- 4406 28 Jun, 2009 [facility] [address] [id number], [place] [address] 2541 22 Jun, 2009 [facility] [address] [id number] [place] [address] 2546 16 Jun, 2009 [facility] [address] [id number] [place] [address]- 2546 09 Jun, 2009 [facility] [address] [id number], [place] [address]- 1366 Jun, [facility] [address], [place] [address]- 7817 30 May, 2009 [facility] [address], [place] [address]- 8267 May, [facility] [address], [place] [address]- 1148 May, [facility] [address], [place] [address]- 7164 May, [facility] [address], [place] [address]- 1202 May, [facility] [id number] [place] [address]- 6152 May, [facility] [address] [id number] [address] May, [facility] [id number] [place] [address]- 0052 Apr, [facility] [address], [place] [address]- 5711 Apr, [facility] [address], [place] [address]- 3553 Jan, [facility] [address], [place] [address]- 3021 Oct, IMMUNIZATIONS No Known Immunizations SOCIAL HISTORY Never Assessed REASON FOR VISIT Dizziness for 3 weeks all through out the day- Ramila BRAN PLAN OF CARE Activity Details Follow Up 4 Weeks Reason:Vertigo VITAL SIGNS Height 62 in 2017-04-27 Weight 185.6 lbs 2017-04-27 Temperature 98.4 degrees Fahrenheit 2017-04-27 Heart Rate 76 bpm 2017-04-27 Respiratory Rate 20 2017-04-27 BMI 33.94 kg/m2 2017-04-27 Blood pressure systolic 124 mmHg 2017-04-27 Blood pressure diastolic 64 mmHg 2017-04-27 MEDICATIONS Medication Instructions Dosage Frequency Start Date End Date Duration Status Aspirin 81 MG Orally Once a day 1 tablet 24h Active NovoLog Flexpen 100 UNIT/ML Subcutaneous 2 times a day Inject 10 units with breakfast and 5 with lunch 12h 30 days Active Trutest Blood Glucose Test Strip N/A subcutaneously 6 times a day. E11.40 test blood sugar Dec, Active Carvedilol 6.25 MG Orally 2 times a day 0.5 tablet 12h Active Zontivity 2.08 MG Orally Once a day 1 tablet 24h Active Tresiba FlexTouch 200 UNIT/ML Subcutaneous once a day Inject 20 units 24h Jan, 90 days Active Tramadol HCl 50 MG Orally 2 times a day 1 tablet as needed 12h Aug, 28 days Active Betamethasone Dipropionate Aug 0.05 % Externally 2 times a day 1 application to affected area 12h Aug, Active Levothyroxine Sodium 25 MCG Orally Once a day 1 tablet on an empty stomach in the morning 24h Active BD Pen Needle Mini U/F 31G X 5 MM subcutaneously 4 times a day as directed 6h Dec, 30 days Active Citalopram Hydrobromide 20 mg Orally Once a day 1.5 tablets 24h 90 days Active Crestor 10 MG Orally Once a day 1 tablet 24h Active Fenofibric Acid 135 MG Orally Once a day 1 capsule 24h Active Clopidogrel Bisulfate 75 MG Orally Once a day 1 tablet 24h Active Meclizine HCl 12.5 MG Orally twice a day 1 - 2 tablets as needed 12h Mar Active RESULTS Name Result Date Reference Range GLUCOSE FINGERSTICK (IN HOUSE) 2017-04-27 GLU FINGERSTICK 203 PC 2:00 pm Lot # [id number] Exp date 09/2017 UA LONG DIP (IN HOUSE) 2017-04-27 Lot # [id number] Exp date 02/2018 Clarity cloudy Color yellow Odor none GLU trace VALENCIA negative KET negative SG >=1.030 BLO 1+ pH 5.5 Protein negative URO 0.2 NIT negative TA trace Lot # Exp date CULTURE, URINE 2017-04-27 Urine Culture, Routine Final report Result 1 PROCEDURES Procedure Date Ordered Result Body Site URINALYSIS, AUTO, W/O SCOPE Apr 27, 2017 GLUCOSE BLOOD TEST Apr 27, 2017 [facility] VISIT ESTABLISHED PATIENT Apr 27, 2017 LAB NOT BILLED BY [facility] Apr 27, 2017 INSTRUCTIONS MEDICATIONS ADMINISTERED No Known Medications [...]
--- OUTSIDE RECORDS SUMMARY | 2018-11-09 13:23 | XMS REPORT ---
Author Author GUZMAN REYES Organization [facility] Address [address] [place] [address] Care Team Providers Care Wick Tender Name Role Phone GUZMAN REYES Unavailable PROBLEMS Type Condition ICD9-CM Code [id number] Code Onset Dates Condition Status SNOMED Code Problem Hyperlipemia, mixed E78.2 Active 425161684 Problem Hypoglycemia E16.2 Active 221668718 Problem Hypernatremia E87.0 Active 30717048 Problem Neurogenic orthostatic hypotension G90.3 Active 390554915 Problem Dementia with Lewy bodies G31.83 Active 218605729 Problem Mixed stress and urge urinary incontinence N39.46 Active 396226372 Problem Coronary artery disease involving [place] coronary artery of [place] heart without angina pectoris I25.10 Active [id number] Problem Unsteady gait R26.81 Active 99166963 Problem Hallucinations R44.3 Active 7351771 Problem Parkinsons disease G20 Active 72146535 Problem Episodic cluster headache, not intractable G44.019 Active 158203829 Problem Type 2 diabetes mellitus with unspecified complications E11.8 Active 59096226 Problem PVD (peripheral vascular disease) I73.9 Active 697621191 Problem Dementia in other diseases classified elsewhere without behavioral disturbance F02.80 Active 396932231 Problem Dysuria R30.0 Active 86633042 Problem Hypothyroidism (acquired) E03.9 Active 666166974 Problem Neuropathy G62.9 Active 148304062 Problem Status post amputation of toe of left foot Z89.422 Active 697276322 Problem Dysthymia F34.1 Active 97788998 Problem Essential hypertension I10 Active 78903335 Problem Polydipsia R63.1 Active 32212627 ALLERGIES Substance Reaction Event Type Date Status Sulfacetamide Sod-Sulfur Unknown Drug Allergy Feb, Active Protamine Sulfate Unknown Drug Allergy Feb, Active Penicillin V Potassium Unknown Drug Allergy Feb, Active Bactrim Unknown Drug Allergy Feb, Active ENCOUNTERS Encounter Location Date Diagnosis [facility] [address], [place] [address] 06 Dec, 2017 [facility] [id number] [place] [address] 25914- 2735 Oct, [facility] [id number] [place] [address] 97461 -7418 18 Oct, 2017 Acute cystitis without hematuria N30.00 and Viral upper respiratory tract infection J06.9 [facility] [id number] [place] [address] 04766- 7033 17 Oct, 2017 [facility] [id number] [place] [address] 05115- 5059 17 Oct, 2017 Type 2 diabetes mellitus with unspecified complications E11.8 [facility] [id number] [place] [address] 85082- 4785 16 Oct, 2017 Left shoulder pain M25.512 [facility] [id number] [place] [address] 57442- 0336 16 Oct, 2017 Type 2 diabetes mellitus with unspecified complications E11.8 ; Dysuria R30.0 and Neurogenic orthostatic hypotension G90.3 [facility] [id number] [place] [address] 29702- 3817 Sep, Left shoulder pain M25.512 [facility] [id number] [place] [address] 42719- 0788 12 Sep, 2017 Medicare annual wellness visit, initial Z00.00 ; Parkinsons disease G20 ; Type 2 diabetes mellitus with unspecified complications E11.8 ; Essential hypertension I10 ; Coronary artery disease involving [place] coronary artery of [place] heart without angina pectoris I25.10 ; Hypothyroidism (acquired ) E03.9 ; PVD (peripheral vascular disease) I73.9 ; Dysthymia F34.1 ; Hyperlipemia, mixed E78.2 ; Neuropathy G62.9 ; Encounter for immunization Z23 ; Encounter for other screening for malignant neoplasm of breast Z12.39 and Mixed stress and urge urinary incontinence N39.46 [facility] [id number] [place] [address] 85484- 0919 Aug, Parkinsons disease G20 [facility] [address] 69087- 4734 Aug, Type 2 diabetes mellitus with unspecified complications E11.8 ; Left shoulder pain M25.512 and Hypotensive episode I95.9 [facility] [address] 55995- 0570 Aug, Coronary artery disease involving [place] coronary artery of [place] heart without angina pectoris I25.10 [facility] [address] 20776- 0110 Aug, Type 2 diabetes mellitus with unspecified complications E11.8 [facility] [address] 67144- 4954 Jul, Callus of foot L84 [facility] [place] [address] 77445- 8257 Jul, [facility] [address] 76309- 2725 Jul, Callus of foot L84 ; Episodic cluster headache, not intractable G44.019 ; Type 2 diabetes mellitus with unspecified complications E11.8 and Parkinsons disease G20 [facility] [id number] [place] [address] 81774- 2223 Jul, [facility] [id number] [place] [address] 77158- 0486 Jul, [facility] [id number] [place] [address] 91592- 0753 Jun, Type 2 diabetes mellitus with unspecified complications E11.8 ; Unsteady gait R26.81 ; Forgetfulness R68.89 and Hallucinations R44.3 [facility] [id number] [place] [address] 30320- 8752 Jun, [facility] [address] 28908- 7121 Jun, Left shoulder pain M25.512 [facility] [id number] [place] [address] 55997- 9912 May, Hypernatremia E87.0 and Polydipsia R63.1 [facility] [id number] [place] [address] 86403- 1099 May, Hypernatremia E87.0 and Polydipsia R63.1 [facility] [id number] [place] [address] 47652- 2387 May, Hypoglycemia E16.2 ; Dysuria R30.0 ; Unsteadiness on feet R26.81 ; Forgetfulness R68.89 ; Type 2 diabetes mellitus with unspecified complications E11.8 and Yeast infection involving the vagina and surrounding area B37.3 [facility] [id number] [place] [address] 56815- 4717 May, Acute cystitis without hematuria N30.00 [facility] [id number] [place] [address] 53696 -0312 Apr, Dysuria R30.0 and Acute cystitis without hematuria N30.00 [facility] [id number] [place] [address] 58149- 8071 Apr, Hypernatremia E87.0 and Polydipsia R63.1 [facility] [id number] [place] [address] 01242- 6203 Apr, Vertigo R42 and Type 2 diabetes mellitus with unspecified complications E11.8 [facility] [id number] [place] [address] 39499- 2801 Mar, [facility] [id number] [place] [address] 94415- 1513 Mar, Left shoulder pain M25.512 [facility] [id number] [place] [address] 18170- 3436 Mar, Vertigo R42 [place] [id number] [place] [address] 44539- 5874 12 Mar, 2017 Polydipsia R63.1 [facility] [address] 29673- 1761 12 Mar, 2017 Polydipsia R63.1 [facility] [address] 11550- 7375 11 Mar, 2017 Vertigo R42 [facility] [place] [address] 25930- 0693 07 Mar, 2017 Type 2 diabetes mellitus with unspecified complications E11.8 ; Vertigo R42 ; Polydipsia R63.1 ; Polyuria R35.8 ; Hypothyroidism ( acquired) E03.9 ; Abnormal urinalysis R82.90 and Dysthymia F34.1 [facility] [address] 38506- 4360 05 Mar, 2017 Coronary artery disease of [place] artery with stable angina pectoris, unspecified whether [place] or transplanted heart I25.118 ; Systolic CHF, chronic I50.22 ; Hyperlipemia, mixed E78.2 and Essential hypertension I10 [facility] [address] [id number] Feb, Dental caries K02.9 [facility] [address] 12772- 5101 Feb, Type 2 diabetes mellitus with diabetic neuropathy, unspecified E11.40 [facility] [address] 14905- 6706 Dec, Left shoulder pain M25.512 [facility] [address] 02865- 0861 Dec, [facility] [address] 07274- 9816 Dec, Type 2 diabetes mellitus with unspecified complications E11.8 [facility] [address] [id number] 15 Abiel, 2017 Dental examination Z01.20 [facility] [id number] [place] [address] 87468- 9945 08 Dec, 2016 Type 2 diabetes mellitus with diabetic neuropathy, unspecified E11.40 [facility] [id number] [place] [address] 81435- 7346 Dec, [facility] [id number] [place] [address] 45528- 3294 Dec, Type 2 diabetes mellitus with diabetic neuropathy, unspecified E11.40 [facility] [id number] [place] [address] 81594- 3114 November, Left shoulder pain M25.512 [facility] [id number] [place] [address] 52004- 6706 November, [facility] [id number] [place] [address] 39348- 5009 November, Type 2 diabetes mellitus with unspecified complications E11.8 and Dysuria R30.0 [facility] [id number] [place] [address] 52943- 3419 Oct, Left shoulder pain M25.512 [facility] [id number] [place] [address] 17152- 0336 Sep, Left shoulder pain M25.512 [facility] [id number] [place] [address] 86354- 6084 Sep, Pre-op testing Z01.818 [facility] [id number] [place] [address] 02903- 5888 Sep, Pre-op testing Z01.818 [facility] [id number] [place] [address] 92189- 2006 Sep, Pre-op testing Z01.818 [facility] [id number] [place] [address] 23852- 4766 Sep, Pre-op testing Z01.818 and Mouth pain K13.79 [facility] [id number] [place] [address] 59899- 8456 Sep, Left shoulder pain M25.512 [facility] [address] 77478- 3166 08 Aug, 2016 Other eczema L30.8 [facility] [address] 90204- 0614 06 Aug, 2016 PVD (peripheral vascular disease) I73.9 ; Type 2 diabetes mellitus with unspecified complications E11.8 ; Acute cystitis with hematuria N30.01 ; Other eczema L30.8 ; Dysuria R30.0 and Left shoulder pain M25.512 [facility] [address] 10762 -0732 Jul, Otalgia of right ear H92.01 and Blood in ear canal, right H92.21 [facility] [address] 13129- 1949 Jul, Arthralgia, unspecified joint M25.50 ; PVD (peripheral vascular disease) I73.9 and Neuropathy G62.9 [facility] [place] [address] 13321- 8715 Jul, [facility] [id number] [place] [address] 99728- 2645 Jun, Medicare annual wellness visit, initial Z00.00 ; Cervicalgia M54.2 ; Radiculopathy of cervical region M54.12 ; Encounter for immunization Z23 ; Type 2 diabetes mellitus with unspecified complications E11.8 and Essential hypertension I10 [facility] [id number] [place] [address] 38833- 3666 Jun, [address] 18279- 1617 14 May, 2016 Hypothyroidism (acquired) E03.[address] 08654- 5211 May, Dysuria R30.0 ; Essential hypertension I10 ; Hypothyroidism (acquired) E03.9 and PVD (peripheral vascular disease) I73.9 [facility] [id number] [place] [address] 84054 -2061 May, Burning with urination R30.0 and Acute cystitis with hematuria N30.01 [facility] [id number] [place] [address] 68462- 7845 May, Dental examination Z01.20 [facility] [address] 53237- 9104 May, Hypothyroidism (acquired) E03.9 [facility] [address] 03134- 2271 Feb, [facility] [address] 59405- 5974 Feb, Status post amputation of toe of left foot Z89.422 ; PVD ( peripheral vascular disease) I73.9 ; Type 2 diabetes mellitus with unspecified complications E11.8 and Essential hypertension I10 [facility] [id number] [place] [address] 18467- 9872 Jan, [facility] [address] 03397- 5816 Jan, Hypothyroidism (acquired) E03.9 [facility] [id number] [place] [address] 14302- 6425 Jan, [facility] [id number] [place] [address] 24966- 5793 Jan, [facility] [id number] [place] [address] 94771- 8222 Jan, Type 2 diabetes mellitus with unspecified complications E11.8 ; Status post amputation of toe of left foot Z89.422 and Essential ( primary) hypertension I10 [facility] [id number] [place] [address] 78692- 0511 Jan, Type 2 diabetes mellitus with unspecified complications E11.8 ; Status post amputation of toe of left foot Z89.422 ; Essential hypertension I10 and PVD (peripheral vascular disease) I73.9 [facility] [id number] [place] [address] 09397- 5354 Jan, [facility] [id number] [place] [address] 80190- 8418 Jan, [facility] [id number] [place] [address] 91566- 3969 Jan, [facility] [id number] [place] [address] 67562- 5531 11 Jan, 2016 Weakness R53.1 ; Fatigue, unspecified type R53.83 ; PVD ( peripheral vascular disease) I73.9 ; Acute osteomyelitis of other site M86.18 ; Type 2 diabetes mellitus with diabetic neuropathy, unspecified E11.40 and half-way 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.4 [facility] [id number] [place] [address] 37145- 2633 30 Dec, 2015 [facility] [id number] [place] [address] 37108- 6563 Dec, Type 2 diabetes mellitus with unspecified complications E11.8 [facility] [id number] [place] [address] 39666- 6922 Dec, [facility] [id number] [place] [address] 45423- 1415 Dec, Pressure ulcer, unspecified pressure ulcer stage L89.90 and Type 2 diabetes mellitus with unspecified complications E11.8 [facility] [address], [place] [address] -1804 Dec, Toe infection L08.9 [facility] [id number] [place] [address] 38476- 6949 November, Dental caries K02.9 [facility] [id number] [place] [address] 15507- 4979 November, [place] [address], [place] [address]- 8763 November, Dental examination Z01.20 [facility] [id number] [place] [address] 36146- 5070 Sep, Lipoma of torso D17.1 and Thoracic neuritis M54.14 [facility] [id number] [place] [address] 77769- 8226 Sep, [facility] [id number] [place] [address] 34665- 3686 Aug, [facility] [id number] [place] [address] 03673 -4512 Jul, Dysuria R30.0 and UTI (urinary tract infection) N39.0 [facility] [id number] [place] [address] 84708- 0434 Jun, Left shoulder pain M25.512 [facility] [id number] [place] [address] 13533- 4522 May, Shoulder pain, left M25.512 [facility] [id number] [place] [address] 55208- 1975 May, [facility] [id number] [place] [address] 08238- 4315 May, [facility] [id number] [place] [address] 03380- 5687 May, Left shoulder pain M25.512 [facility] [id number] [place] [address] 81448- 1866 May, [facility] [id number] [place] [address] 17794- 7914 Apr, Encounter for immunization Z23 [facility] [address] [place] [address] 08934- 9996 08 Apr, 2015 Urinary tract infection, site not specified N39.0 ; Hypotension, unspecified I95.9 ; Type 2 diabetes mellitus with unspecified complications E11.8 and Generalized edema R60.1 [facility] [id number] [place] [address] 05164- 0141 Apr, [facility] [id number] [place] [address] [id number]- 3172 Mar, Diabetes with other specified manifestations, type II or unspecified type, not stated as uncontrolled 250.80 [facility] [address] 80558- 4791 Feb, Gout 274.9 and Diabetes 250.00 [facility] [id number] [place] [address] 74142- 8201 Jan, [facility] [address] 28878- 0615 November, CAD (coronary artery disease) 414.00 and CHF (congestive heart failure) 428.0 [facility] [id number] [place] [address] 45022- 4130 Oct, [facility] [id number] [place] [address] 86411- 0790 Oct, [facility] [id number] [place] [address] 41994- 5796 Oct, [facility] [id number] [place] [address] 51776- 3025 Sep, [facility] [id number] [place] [address] 26291- 3000 Sep, [facility] [id number] [place] [address] 08830- 2918 Sep, [facility] [id number] [place] [address] [id number]- 2686 Sep, [facility] [id number] [place] [address] [id number]- 7521 Aug, [facility] [address] [place] [address]- 8828 13 Aug, 2014 [facility] [place] [facility] [address] [id number] [place] [address]- 8596 Aug, 2014 [facility] [place] [facility] [address] [id number] [place] [address] 2546 Aug, 2014 [facility] [place] [facility] [address] [id number] [place] [address]- 7846 Aug, 2014 [facility] [place] [facility] [address] [id number] [place] [address]- 8848 Aug, 2014 [facility] [place] [facility] [address] [id number] [place] [address]- 0177 Aug, 2014 [facility] [place] [facility] [address] [id number] [place] [address]- 8498 Aug, 2014 [facility] [place] [facility] [address] [id number] [place] [address]- 0068 Jul, [facility] [place] [facility] [address] [id number] [place] [address]- 6977 Jul, [facility] [place] [facility] [address] [id number] [place] [address]- 1616 Jul, [facility] [place] [facility] [address] [facility] [id number] [place] [address]- 9552 Jul, [facility] [place] [facility] [address] [id number] [place] [address]- 4773 Jul, [facility] [place] [facility] [address] [id number] [place] [address]- 7481 Jul, [facility] [place] [facility] [address] [id number] [place] [address]- 4676 Jul, [facility] [place] [facility] [address] [id number] [place] [address]- 4526 Jul, [facility] [place] [facility] [address] [id number] [place] [address]- 0976 Jul, [facility] [place] [facility] [address] [id number] [place] [address]- 4247 Jul, [facility] [place] [facility] [address] [id number] [place] [address]- 9248 Jun, [facility] [place] [facility] [address] [id number] [place] 9525 Jun, [facility] [place] [facility] [address] [id number] [place] [address]- 4834 Jun, [facility] [place] [facility] [address] [id number] [place] [address]- 2014 Jun, [facility] [place] [facility] [address] [id number] [place] [address]- 1560 Jun, [facility] [place] [facility] [address] [id number] [place] [address]- 2385 Jun, [facility] [place] [facility] [address] [id number] [place] [address]- 4616 Jun, [facility] [place] [facility] [address] [id number] [place] [address]- 0966 Jun, [facility] [place] [facility] [address] [id number] [place] [address]- 7261 Jun, [facility] [place] [facility] [address] [id number] [place] [address]- 1389 Jun, [facility] [place] [facility] [address] [id number] [place] [address]- 9712 May, [facility] [place] [facility] [address] [id number] [place] [address]- 4805 May, [facility] [place] [facility] [address] [id number] [place] [address]- 0233 Mar, [facility] [place] [facility] [address] [id number] [place] [address]- 2753 Mar, [facility] [place] [facility] [address] [id number] [place] [address]- 1640 Mar, [facility] [place] [facility] [address] [id number] [place] [address]- 6086 Mar, [facility] [place] [facility] [address] [id number] [place] [address]- 9409 Feb, [facility] [place] [facility] [address] [id number] [place] [address]- 7266 Feb, [facility] [place] [facility] [address] [id number] [place] [address]- 9866 Feb, [facility] [place] [facility] [address] [id number] [place] [address]- 2069 Jan, [facility] [place] [facility] [address] [id number] [place] [address]- 0162 Jan, [facility] [place] [facility] [address] [id number] [place] [address]- 5838 Jan, [facility] [place] [facility] [address] [id number] [place] [address]- 6198 Jan, [facility] [place] [facility] [address] [id number] [place] [address]- 2189 Jan, [facility] [place] [facility] [address] [id number] [place] [address]- 1265 Jan, [facility] [place] [facility] [address] [id number] [place] [address]- 1999 Jan, [facility] [place] [facility] [address] [id number] [place] [address]- 7189 Jan, [facility] [place] [facility] [address] [id number] [place] [address]- 8855 Jan, [facility] [place] [facility] [address] [id number] [place] [address]- 56[address] Jan, [facility] [place] [facility] [address] [id number] [place] [address] Dec, [facility] [place] [facility] [address] [id number] [place] [address] Dec, [facility] [place] [facility] [address] [id number] [place] [address] November, [facility] [place] [facility] [address] [id number] [place] [address] November, [facility] [place] [facility] [address] [id number] [place] [address] November, [facility] [place] [facility] [address] [id number] [place] [address] November, [facility] [place] [facility] [address] [id number] [place] [address] November, [facility] [place] [facility] [address] [id number] [place] [address] November, [facility] [place] [facility] [address] [id number] [place] [address] November, [facility] [place] [facility] [address] [id number] [place] [address] Oct, [facility] [place] [facility] [address] [id number] [place] [address] Oct, [facility] [place] [facility] [address] [id number] [place] [address] Sep, [facility] [place] [facility] [address] [id number] [place] [address] Sep, [facility] [place] [facility] [address] [id number] [place] [address] Sep, [facility] [place] [facility] [address] [id number] [place] [address] Sep, [facility] [place] [facility] [address] [id number] [place] [address] Sep, [facility] [place] [facility] [address] [id number] [place] [address] Sep, [facility] [place] [facility] [address] [id number] [place] [address] Sep, [facility] [place] [facility] [address] [id number] [place] [address] Sep, [facility] [place] [facility] [address] [id number] [place] [address] Sep, [facility] [place] [facility] [address] [id number] [place] [address] Sep, [facility] [place] [facility] [address] [id number] [place] [address] Aug, [facility] [place] [facility] [address] [id number] [place] [address] Aug, [facility] [place] [facility] [address] [id number] [place] [address] Jul, [facility] [place] [facility] [address] [id number] [place] [address] 9428 Jul, [facility] [place] [facility] [address] [id number] [place] [address] 3089 Jul, [facility] [place] [facility] [address] [id number] [place] [address]- 8282 Jul, [facility] [place] [facility] [address] [id number] [address] Jul, [facility] [place] [facility] [address] [id number], [place] [address] Jul, [facility] [place] [facility] [address] [id number] [place] [address] Jun, [facility] [place] [facility] [address] [id number] [place] [address] Jun, [facility] [place] [facility] [address] [id number] [place] [address]- 5675 Jun, [facility] [place] [facility] [address] [id number] [place] [address]- 8916 Jun, [facility] [place] [facility] [address] [id number] [place] [address]- [address] May, [facility] [place] [facility] [address] [id number] [place] [address]- [address] 14 May, 2013 [facility] [place] [facility] [address] [id number] [place] [address]- 7045 May, [facility] [place] [facility] [address] [id number] [place] [address]- 2803 May, [facility] [place] [facility] [address] [id number] [place] [address]- 6029 May, [facility] [place] [facility] [address] [id number] [place] [address]- 0901 Apr, [facility] [place] [facility] [address] [id number] [place] [address]- 8499 Apr, [facility] [place] [facility] [address] [id number] [place] [address]- 9429 Apr, [facility] [place] [facility] [address] [id number] [place] [address]- 2681 Apr, [facility] [place] [facility] [address] [id number] [place] [address]- 4780 Apr, [facility] [place] [facility] [address] [id number] [place] [address]- 1646 Apr, [facility] [place] [facility] [address] [id number] [place] [address]- 6435 Apr, [facility] [place] [facility] [address] [id number] [place] [address]- 3346 Apr, [facility] [place] [facility] [address] [id number] [place] [address]- 6237 Apr, [facility] [place] [facility] [address] [id number] [place] [address]- 9290 Apr, [facility] [place] [facility] [address] [id number] [place] [address]- 0026 Apr, [facility] [place] [facility] [address] [id number] [place] [address] Apr, [facility] [place] [facility] [address] [id number] [place] [address] 1925 Mar, [facility] [place] [facility] [address] [id number] [place] [address]- 2526 Mar, [facility] [place] [facility] [address] [id number] [place] [address] Feb, [facility] [place] [facility] [address] [id number] [place] [address]- 3340 Jan, [facility] [place] [facility] [address] [id number] [place] [address]- 0697 Jan, [facility] [place] [facility] [address] [id number] [place] [address]- 6580 Jan, [facility] [place] [facility] [address] [id number] [place] [address]- 8778 Jan, [facility] [place] [facility] [address] [id number], [place] [address]- 90[address] Dec, [facility] [place] [facility] [address] [id number], [place] [address] Dec, [facility] [place] [facility] [address] [id number], [place] [address] 27[address] Dec, [facility] [place] [facility] [address] [id number] [place] [address]- 3216 Dec, [facility] [place] [facility] [address] [id number], [place] [address] Dec, [facility] [place] [facility] [address] [id number], [place] [address]- 25[address] Dec, [facility] [place] [facility] [address] [id number], [place] [address] 76[address] Dec, [facility] [address] [id number] [place] [address]- 2541 November, [facility] [address] [id number] [place] [address]- 3652 November, [facility] [address] [facility] [id number] [place] [address]- 3827 November, [facility] [address] [id number] [place] [address]- 0332 Oct, [facility] [address] [id number] [place] [address]- 2879 Oct, [facility] [address] [id number] [place] [address]- 0252 Oct, [facility] [address] [id number] [place] [address]- 88[address] Oct, [facility] [address] [facility] [id number] [place] [address]- 3867 Oct, [facility] [address] [id number] [place] [address]- 4342 Sep, [facility] [address] [id number] [place] [address]- 6963 Sep, [facility] [address] [id number] [place] [address]- 5412 Sep, [facility] [address] [facility] [id number], [place] [address]- 1184 Sep, [facility] [address] [id number] [place] [address]- 7006 Aug, [facility] [address] [id number] [place] [address] Aug, [facility] [address] [id number], [place] [address]- 2415 Aug, [facility] [place] [facility] [address] [id number] [place] [address]- 2504 Aug, [facility] [place] [facility] [address] [id number] [place] [address]- 0209 Jul, [facility] [place] [facility] [address] [id number] [place] [address]- 4705 Jul, [facility] [place] [facility] [address] [id number] [place] [address]- 4822 Jun, [facility] [place] [facility] [address] [id number] [place] [address]- 8280 Jun, [facility] [place] [facility] [address] [id number] [place] [address]- 2016 Jun, [facility] [place] [facility] [address] [id number] [place] [address]- 7363 Jun, [facility] [place] [facility] [address] [id number] [place] [address]- 6959 May, [facility] [place] [facility] [address] [id number] [place] [address]- 8189 May, [facility] [place] [facility] [address] [id number] [place] [address]- 0831 May, [facility] [place] [facility] [address] [id number] [place] [address]- 4507 May, [facility] [place] [facility] [address] [id number] [place] [address]- 6268 Apr, [facility] [place] [facility] [address] [id number] [place] [address]- 1167 Apr, [facility] [place] [facility] [address] [id number] [place] [address]- 7871 Apr, [facility] [place] [facility] [address] [id number] [place] [address]- 8567 Apr, [facility] [place] [facility] [address] [id number] [place] [address]- 8237 Apr, [facility] [place] [facility] [address] [id number] [place] [address] Apr, [facility] [place] [facility] [address] [id number] [place] [address]- 0801 Apr, [facility] [place] [facility] [address] [id number] [place] [address]- 9586 Apr, [facility] [place] [facility] [address] [id number] [place] [address]- 0478 Apr, [facility] [place] [facility] [address] [id number] [place] [address]- 4667 Apr, [facility] [place] [facility] [address] [id number] [place] [address]- 7319 Feb, [facility] [place] [facility] [address] [id number] [place] [address]- 5187 Feb, [facility] [place] [facility] [address] [id number] [place] [address]- 7846 Jan, [facility] [place] [facility] [address] [id number] [place] [address]- 5627 Jan, [facility] [place] [facility] [address] [id number] [place] [address]- 7078 Jan, [facility] [place] [facility] [address] [id number] [place] [address]- 3998 Jan, [facility] [place] [facility] [address] [id number] [place] [address]- 6613 Jan, [facility] [place] [facility] [address] [id number] [place] [address]- 7116 Jan, [facility] [place] [facility] [address] [id number] [place] [address]- 9611 Dec, [facility] [place] [facility] [address] [id number] [place] [address]- 5196 November, [facility] [place] [facility] [address] [id number] [place] [address]- 9166 November, [facility] [address] [id number] [place] [address]- 2046 November, [facility] [place] [facility] [address] [id number] [place] [address]- 9076 Sep, [facility] [address] [id number] [place] [address]- 8456 Sep, [facility] [address] [id number] [place] [address]- 0566 Sep, [facility] [address] [id number] [place] [address]- 5226 Sep, [facility] [address] [id number] [place] [address] 2546 Sep, [facility] [address] [id number] [place] [address]- 9826 Sep, [facility] [address] [id number] [place] [address]- 3592 Aug, [facility] [address] [id number] [place] [address]- 1486 Aug, [facility] [address] [id number] [place] [address]- 7166 Aug, [facility] [address] [id number] [place] [address]- 7346 Jul, [facility] [address] [id number] [place] [address]- 4126 Jul, [facility] [place] [facility] [address] [id number] [place] [address]- 6476 Jul, [facility] [place] [facility] [address] [id number] [place] [address]- 2546 Jul, [facility] [place] [facility] [address] [id number] [place] [address]- 9386 Jun, [facility] [place] [facility] [address] [id number] [place] [address]- 6729 08 Jun, 2011 [facility] [place] [facility] [address] [id number] [place] [address]- 3603 Jun, [facility] [place] [facility] [address] [id number] [place] 3148 Jun, [facility] [place] [facility] [address] [id number] [place] [address]- 1156 Jun, [facility] [place] [facility] [address] [id number] [place] [address]- 7921 Jun, [facility] [place] [facility] [address] [id number] [place] [address]- 7358 May, [facility] [place] [facility] [address] [id number] [place] [address]- 6516 May, [facility] [place] [facility] [address] [id number] [place] [address]- 0719 May, [facility] [place] [facility] [address] [id number] [place] [address]- 6332 Apr, [facility] [place] [facility] [address] [id number] [place] [address]- 3487 Jan, [facility] [place] [facility] [address] [id number] [address]- 6511 Jun, [facility] [place] [facility] [address] [id number], [place] [address]- 6075 Jun, [facility] [place] [facility] [address] [id number] [place] [address]- 3721 15 Jun, 2010 [facility] [place] [facility] [address] [id number] [place] [address]- 3173 Jun, [facility] [place] [facility] [address] [id number] [place] [address]- 0260 15 Jun, 2010 [facility] [place] [facility] [address] [id number] [place] [address]- 9756 13 Jun, 2010 [facility] [address] [id number] [place] [address] 2546 13 Jun, 2010 [facility] [place] [facility] [address] [id number] [place] [address] 2546 21 Apr, 2010 [facility] [address] [id number] [place] [address] 2546 17 Feb, 2010 [facility] [place] [facility] [address] [id number] [place] [address] 2546 15 Aug, 2009 [facility] [address] [id number] [place] [address] 2546 18 Jul, 2009 [facility] [place] [facility] [address] [id number] [place] [address] 2546 11 Jul, 2009 [facility] [address] [facility] [id number] [place] [address] 2546 29 Jun, 2009 [facility] [address] [id number] [place] [address] 2547 28 Jun, 2009 [facility] [address] [facility] [id number] [place] [address] 2546 28 Jun, 2009 [facility] [address] [facility] [id number] [place] [address] 2548 22 Jun, 2009 [facility] [address] [facility] [id number] [place] [address] 2546 16 Jun, 2009 [facility] [place] [facility] [address] [id number] [place] [address] 2546 09 Jun, 2009 [facility] [place] [facility] [address] [id number] [place] [address] 2546 Jun, [facility] [place] [facility] [address] [facility] [id number] [place] [address] 2546 30 May, 2009 [facility] [address] [id number] [place] [address] 2546 May, [facility] [id number], [place] [address]- 5597 May, [facility] [id number], [place] [address]- 6399 May, [facility] [id number], [place] [address]- 8631 May, [facility] [address] [id number], [place] [address]- 0038 May, [facility] [id number], [place] [address]- 1529 May, [facility] [id number] [place] [address]- 3431 Apr, [facility] [id number], [place] [address]- 1080 Apr, [facility] [id number], [place] [address]- 0333 Jan, [facility] [id number], [place] [address]- 5145 Oct, IMMUNIZATIONS No Known Immunizations SOCIAL HISTORY Never Assessed REASON FOR VISIT TE PLAN OF CARE Activity Details Follow Up prn Reason:hygiene VITAL SIGNS Blood pressure systolic 132 mmHg 2017-03-11 Blood pressure diastolic 88 mmHg 2017-03-11 MEDICATIONS Medication Instructions Dosage Frequency Start Date End Date Duration Status Crestor 10 MG Orally Once a day 1 tablet 24h Active Betamethasone Dipropionate Aug 0.05 % Externally 2 times a day 1 application to affected area 12h Aug, Active Trutest Blood Glucose Test Strip N/A subcutaneously 6 times a day. E11.40 test blood sugar Dec, Active Carvedilol 3.125 MG Orally 2 times a day 1/2 tablet 12h Active BD Pen Needle Mini U/F 31G X 5 MM subcutaneously 4 times a day as directed 6h Dec, 30 days Active Tramadol HCl 50 mg Orally 2 times a day 1 tablet 12h Aug, 28 days Active Clopidogrel Bisulfate 75 MG TAKE 1 TABLET BY MOUTH ONCE A DAY 30 30 Active NovoLog Flexpen 100 UNIT/ML Subcutaneous 2 times a day Inject 10 units with breakfast and 5 with lunch 12h 30 days Active Furosemide 40 MG TAKE 1 TABLET BY MOUTH ONCE A DAY 30 Active Citalopram Hydrobromide 20 MG TAKE 1 TABLET BY MOUTH EVERY DAY 90 Active Aspirin 81 MG Orally Once a day 1 tablet 24h Active Tresiba FlexTouch 200 UNIT/ML Subcutaneous once a day Inject 20 units 24h Jan, 90 days Active Zontivity 2.08 MG Orally Once a day 1 tablet 24h Active Enalapril Maleate 2.5 MG Orally Once a day 1 tablet 24h Active Levothyroxine Sodium 25 MCG TAKE 1 TABLET BY MOUTH ONCE DAILY 30 Active Fenofibric Acid 135 MG Orally Once a day 1 capsule 24h Active Tresiba FlexTouch 200 UNIT/ML 20u once a day Subcutaneous Active RESULTS No Results PROCEDURES Procedure Date Ordered Result Body Site EXTRAC ERUPTED TOOTH/EXPOSED ROOT Mar 11, 2017 SURG REMOVAL ERUPTED TOOTH Mar 11, 2017 SURG REMOVAL ERUPTED TOOTH Mar 11, 2017 INSTRUCTIONS MEDICATIONS ADMINISTERED No Known [...]
--- OUTSIDE RECORDS SUMMARY | 2018-11-09 13:25 | XMS REPORT ---
Author Author PRABHA HILL [facility] Address [address] [place] [address] Care Team Providers Care General Farm Manager Name Role Phone PRABHA HILL Unavailable PROBLEMS Type Condition ICD9-CM Code REN35-JA Code Onset Dates Condition Status SNOMED Code Problem Hyperlipemia, mixed E78.2 Active 470202219 Problem Hypoglycemia E16.2 Active 921419388 Problem Hypernatremia E87.0 Active 76907771 Problem Neurogenic orthostatic hypotension G90.3 Active 565426858 Problem Dementia with Lewy bodies G31.83 Active 497006606 Problem Mixed stress and urge urinary incontinence N39.46 Active 793369156 Problem 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 Active 1635054129048 Problem Unsteady gait R26.81 Active 17834583 Problem Hallucinations R44.3 Active 5965292 Problem Parkinsons disease G20 Active 36068943 Problem Episodic cluster headache, not intractable G44.019 Active 960931598 Problem Type 2 diabetes mellitus with unspecified complications E11.8 Active 38344470 Problem PVD (peripheral vascular disease) I73.9 Active 010750117 Problem Dementia in other diseases classified elsewhere without behavioral disturbance F02.80 Active 779751210 Problem Dysuria R30.0 Active 75806109 Problem Hypothyroidism (acquired) E03.9 Active 082328454 Problem Neuropathy G62.9 Active 487627219 Problem Status post amputation of toe of left foot Z89.422 Active 262957380 Problem Dysthymia F34.1 Active 20232831 Problem Essential hypertension I10 Active 16087062 Problem Polydipsia R63.1 Active 17929196 ALLERGIES No Information ENCOUNTERS Encounter Location Date Diagnosis [facility] [address] [id number] [address] Dec, [facility] [id number] [place] [address] 95891- 3658 November, [facility] [id number] [place] [address] 33083- 2322 November, [facility] [id number] [place] [address] 94466- 9934 November, Left shoulder pain M25.512 [place] [id number] [place] [address] 47845- 5014 Oct, [facility] [id number] [place] [address] 22664 -1421 Oct, [place] [id number] [place] [address] 30459- 6015 Oct, Parkinsons disease G20 [facility] [id number] [place] [address] 00109 -1528 Oct, Acute cystitis without hematuria N30.00 and Viral upper respiratory tract infection J06.9 [place] [id number] [place] [address] 78769- 3132 Oct, [facility] [id number] [place] [address] 37531- 0768 Oct, Type 2 diabetes mellitus with unspecified complications E11.8 [place] [id number] [place] [address] 22180- 6549 Oct, Left shoulder pain M25.512 [place] [id number] [place] [address] 10769- 8850 Oct, Type 2 diabetes mellitus with unspecified complications E11.8 ; Dysuria R30.0 and Neurogenic orthostatic hypotension G90.3 [place] [id number] [place] [address] 82241- 3431 Sep, Left shoulder pain M25.512 [place] [id number] [place] [address] 94636- 4781 Sep, Medicare annual wellness visit, initial Z00.00 ; Parkinsons disease G20 ; Type 2 diabetes mellitus with unspecified complications E11.8 ; Essential hypertension I10 ; 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 ; Hypothyroidism (acquired ) E03.9 ; PVD (peripheral vascular disease) I73.9 ; Dysthymia F34.1 ; Hyperlipemia, mixed E78.2 ; Neuropathy G62.9 ; Encounter for immunization Z23 ; Encounter for other screening for malignant neoplasm of breast Z12.39 and Mixed stress and urge urinary incontinence N39.46 [place] [address] 44531- 3571 Aug, Parkinsons disease G20 [address] 17709- 4422 Aug, Type 2 diabetes mellitus with unspecified complications E11.8 ; Left shoulder pain M25.512 and Hypotensive episode I95.9 [place] [address] 19500- 2882 Aug, 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 [place] [address] 34028- 8735 07 Aug, 2017 Type 2 diabetes mellitus with unspecified complications E11.8 [place] [address] 51519- 3347 Jul, Callus of foot L84 [place] [address] 77914- 4617 Jul, [place] [address] 80212- 9746 Jul, Callus of foot L84 ; Episodic cluster headache, not intractable G44.019 ; Type 2 diabetes mellitus with unspecified complications E11.8 and Parkinsons disease G20 [place] [address] 87550- 2607 Jul, [place] [address] 03455- 3689 Jul, [place] [address] [place] [address] 81997- 5835 Jun, Type 2 diabetes mellitus with unspecified complications E11.8 ; Unsteady gait R26.81 ; Forgetfulness R68.89 and Hallucinations R44.3 [place] [id number] [place] [address] 97524- 9006 Jun, [place] [address] 81111- 8485 Jun, Left shoulder pain M25.512 [place] [id number] [place] [address] 67786- 2739 May, Hypernatremia E87.0 and Polydipsia R63.1 [place] [id number] [place] [address] 34850- 9457 May, Hypernatremia E87.0 and Polydipsia R63.1 [place] [id number] [place] [address] 61769- 2207 May, Hypoglycemia E16.2 ; Dysuria R30.0 ; Unsteadiness on feet R26.81 ; Forgetfulness R68.89 ; Type 2 diabetes mellitus with unspecified complications E11.8 and Yeast infection involving the vagina and surrounding area B37.3 [place] [address] [place] [address] 68348- 0149 May, Acute cystitis without hematuria N30.00 [facility] [id number] [place] [address] 40849 -5886 Apr, Dysuria R30.0 and Acute cystitis without hematuria N30.00 [facility] [id number] [place] [address] 15386- 5275 Apr, Hypernatremia E87.0 and Polydipsia R63.1 [facility] [address] [place] [address] 06171- 1017 Apr, Vertigo R42 and Type 2 diabetes mellitus with unspecified complications E11.8 [place] [id number] [place] [address] 37052- 0691 20 Mar, 2017 [place] [address] 40141- 6971 19 Mar, 2017 Left shoulder pain M25.512 [place] [address] 84123- 0631 13 Mar, 2017 Vertigo R42 [place] [address] 36667- 5116 12 Mar, 2017 Polydipsia R63.1 [place] [address] 25673- 7807 12 Mar, 2017 Polydipsia R63.1 [place] [address] 79745- 2362 11 Mar, 2017 Vertigo R42 [place] [address] 94491- 4511 07 Mar, 2017 Type 2 diabetes mellitus with unspecified complications E11.8 ; Vertigo R42 ; Polydipsia R63.1 ; Polyuria R35.8 ; Hypothyroidism ( acquired) E03.9 ; Abnormal urinalysis R82.90 and Dysthymia F34.1 [place] [id number] [place] [address] 90460- 6841 05 Mar, 2017 Coronary artery disease of chehalis artery with stable angina pectoris, unspecified whether chehalis or transplanted heart I25.118 ; Systolic CHF, chronic I50.22 ; Hyperlipemia, mixed E78.2 and Essential hypertension I10 [facility] [id number] [place] [address] [id number] Feb, Dental caries K02.9 [place] [id number] [place] [address] 01167- 3973 10 Feb, 2017 Type 2 diabetes mellitus with diabetic neuropathy, unspecified E11.40 [place] [address] 15666- 7793 Dec, Left shoulder pain M25.512 [facility] [address] [place] [address] 01809- 6517 Dec, [facility] [id number] [place] [address] 02101- 3743 Dec, Type 2 diabetes mellitus with unspecified complications E11.8 [facility] [address] [place] [address] [id number] Dec, Dental examination Z01.20 [facility] [id number] [place] [address] 62849- 0740 08 Dec, 2016 Type 2 diabetes mellitus with diabetic neuropathy, unspecified E11.40 [facility] [id number] [place] [address] 87341- 1145 Dec, [facility] [id number] [place] [address] 39214- 9871 Dec, Type 2 diabetes mellitus with diabetic neuropathy, unspecified E11.40 [facility] [id number] [place] [address] 35548- 4854 November, Left shoulder pain M25.512 [facility] [id number] [place] [address] 68861- 0946 November, [facility] [id number] [place] [address] 42656- 8910 November, Type 2 diabetes mellitus with unspecified complications E11.8 and Dysuria R30.0 [facility] [address] [place] [address] 52073- 5370 Oct, Left shoulder pain M25.512 [facility] [id number] [place] [address] 74161- 8268 Sep, Left shoulder pain M25.512 [facility] [address] [place] [address] 79411- 9932 Sep, Pre-op testing Z01.818 [facility] [id number] [place] [address] 23789- 4080 Sep, Pre-op testing Z01.818 [place] [address] 37207- 0325 Sep, Pre-op testing Z01.818 [place] [address] 51858- 9443 Sep, Pre-op testing Z01.818 and Mouth pain K13.79 [place] [address] 50518- 7581 Sep, Left shoulder pain M25.512 [place] [address] 49734- 5317 08 Aug, 2016 Other eczema L30.8 [place] [address] 62240- 6891 06 Aug, 2016 PVD (peripheral vascular disease) I73.9 ; Type 2 diabetes mellitus with unspecified complications E11.8 ; Acute cystitis with hematuria N30.01 ; Other eczema L30.8 ; Dysuria R30.0 and Left shoulder pain M25.512 [facility] [id number] [place] [address] 90661 -0116 Jul, Otalgia of right ear H92.01 and Blood in ear canal, right H92.21 [place] [id number] [place] [address] 84420- 4696 Jul, Arthralgia, unspecified joint M25.50 ; PVD (peripheral vascular disease) I73.9 and Neuropathy G62.9 [place] [id number] [place] [address] 23395- 8533 Jul, [place] [id number] [place] [address] 40439- 3308 Jun, Medicare annual wellness visit, initial Z00.00 ; Cervicalgia M54.2 ; Radiculopathy of cervical region M54.12 ; Encounter for immunization Z23 ; Type 2 diabetes mellitus with unspecified complications E11.8 and Essential hypertension I10 [facility] [id number] [place] [address] 85309- 8063 Jun, [facility] [id number] [place] [address] 45338- 4590 May, Hypothyroidism (acquired) E03.9 [facility] [id number] [place] [address] 93126- 0396 May, Dysuria R30.0 ; Essential hypertension I10 ; Hypothyroidism (acquired) E03.9 and PVD (peripheral vascular disease) I73.9 [facility] [id number] [place] [address] 90053 -2678 May, Burning with urination R30.0 and Acute cystitis with hematuria N30.01 [facility] [id number] [place] [address] 16533- 7234 May, Dental examination Z01.20 [facility] [id number] [place] [address] 97105- 2308 May, Hypothyroidism (acquired) E03.9 [facility] [id number] [place] [address] 27866- 2429 Feb, [facility] [id number] [place] [address] 22212- 6309 Feb, Status post amputation of toe of left foot Z89.422 ; PVD ( peripheral vascular disease) I73.9 ; Type 2 diabetes mellitus with unspecified complications E11.8 and Essential hypertension I10 [facility] [id number] [place] [address] 28457- 8311 Jan, [facility] [id number] [place] [address] 49882- 3397 Jan, Hypothyroidism (acquired) E03.9 [facility] [id number] [place] [address] 12893- 0324 Jan, [facility] [id number] [place] [address] 67394- 3431 Jan, [place] [id number] [place] [address] 12369- 3553 Jan, Type 2 diabetes mellitus with unspecified complications E11.8 ; Status post amputation of toe of left foot Z89.422 and Essential ( primary) hypertension I10 [place] [id number] [place] [address] 83063- 9634 Jan, Type 2 diabetes mellitus with unspecified complications E11.8 ; Status post amputation of toe of left foot Z89.422 ; Essential hypertension I10 and PVD (peripheral vascular disease) I73.9 [place] [id number] [place] [address] 05240- 8159 Jan, [place] [id number] [place] [address] 18459- 3083 Jan, [place] [id number] [place] [address] 83528- 6716 Jan, [place] [id number] [place] [address] 01669- 6124 Jan, Weakness R53.1 ; Fatigue, unspecified type R53.83 ; PVD ( peripheral vascular disease) I73.9 ; Acute osteomyelitis of other site M86.18 ; Type 2 diabetes mellitus with diabetic neuropathy, unspecified E11.40 and assisted 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.4 [place] [address] [place] [address] 12778- 3063 Dec, [place] [id number] [place] [address] 93203- 3564 Dec, Type 2 diabetes mellitus with unspecified complications E11.8 [place] [id number] [place] [address] 16517- 3142 Dec, [place] [id number] [place] [address] 24654- 5405 Dec, Pressure ulcer, unspecified pressure ulcer stage L89.90 and Type 2 diabetes mellitus with unspecified complications E11.8 [facility] [id number] [place] [address] 90136 -1332 Dec, Toe infection L08.9 [facility] [id number] [place] [address] 75220- 9737 November, Dental caries K02.9 [place] [id number] [place] [address] 86021- 0398 November, [place] [id number] [place] [address] 60620- 9843 November, Dental examination Z01.20 [place] [id number] [place] [address] 42011- 8592 Sep, Lipoma of torso D17.1 and Thoracic neuritis M54.14 [place] [id number] [place] [address] 42187- 6611 Sep, [place] [id number] [place] [address] 71324- 9608 Aug, [facility] [id number] [place] [address] 16923 -8262 Jul, Dysuria R30.0 and UTI (urinary tract infection) N39.0 [place] [id number] [place] [address] 35237- 9462 Jun, Left shoulder pain M25.512 [place] [id number] [place] [address] 76538- 3366 May, Shoulder pain, left M25.512 [place] [id number] [place] [address] 74139- 8259 May, [place] [id number] [place] [address] 52758- 8446 May, [place] [id number] [place] [address] 86400- 0312 May, Left shoulder pain M25.512 [facility] [id number] [place] [address] 53298- 2415 May, [facility] [id number] [place] [address] 25010- 3641 Apr, Encounter for immunization Z23 [place] [id number] [place] [address] 56320- 6384 Apr, Urinary tract infection, site not specified N39.0 ; Hypotension, unspecified I95.9 ; Type 2 diabetes mellitus with unspecified complications E11.8 and Generalized edema R60.1 [place] [address] 89000- 8731 Apr, [place] [id number] [place] [address] 83700- 4430 Mar, Diabetes with other specified manifestations, type II or unspecified type, not stated as uncontrolled 250.80 [place] [address] 37120- 4751 Feb, Gout 274.9 and Diabetes 250.00 [place] [id number] [place] [address] 88386- 0411 Jan, [place] [id number] [place] [address] 07953- 6317 November, CAD (coronary artery disease) 414.00 and CHF (congestive heart failure) 428.0 [place] [id number] [place] [address] 04345- 4463 Oct, [facility] [id number] [place] [address] 84350- 7769 Oct, [facility] [id number] [place] [address] 76084- 8098 Oct, [facility] [id number] [place] [address] 12054- 8476 Sep, [facility] [address] 85284- 7445 Sep, [facility] [place] [facility] [address] [id number] [place] [address]- 7353 Sep, [facility] [place] [facility] [address] [id number] [place] [address]- 9816 Sep, [facility] [place] [facility] [address] [id number] [place] [address]- 4876 Aug, 2014 [facility] [place] [facility] [address] [id number] [place] [address]- 1954 Aug, 2014 [facility] [place] [facility] [address] [id number] [place] [address]- 2275 Aug, 2014 [facility] [place] [facility] [address] [id number] [place] [address]- 9835 Aug, 2014 [facility] [place] [facility] [address] [id number] [place] [address]- 9924 Aug, 2014 [facility] [place] [facility] [address] [id number] [place] [address]- 4780 Aug, [facility] [place] [facility] [address] [id number] [place] [address]- 9799 Aug, [facility] [place] [facility] [address] [id number] [place] [address]- 2041 Aug, [facility] [place] [facility] [address] [id number] [place] [address]- 6541 Jul, [facility] [place] [facility] [address] [id number] [place] [address]- 2785 Jul, [facility] [place] [facility] [address] [id number] [place] [address]- 6374 Jul, [facility] [place] [facility] [address] [id number] [place] [address]- 3821 Jul, [facility] [place] [facility] [address] [id number] [place] [address]- 8122 Jul, [facility] [place] [facility] [address] [id number] [place] [address]- 6414 Jul, [facility] [place] [facility] [address] [id number] [place] [address]- 7163 Jul, [facility] [place] [facility] [address] [id number] [place] [address]- 1411 Jul, [facility] [place] [facility] [address] [id number] [place] [address]- 4793 Jul, [facility] [place] [facility] [address] [id number] [place] [address]- 6935 Jul, [facility] [place] [facility] [address] [id number] [place] [address]- 2766 Jun, [facility] [place] [facility] [address] [id number] [place] [address]- 7142 Jun, [facility] [place] [facility] [address] [id number] [place] [address]- 1896 Jun, [facility] [place] [facility] [address] [id number] [place] [address]- 3808 Jun, [facility] [place] [facility] [address] [id number] [place] [address]- 2732 Jun, [facility] [place] [facility] [address] [id number] [place] [address]- 7673 Jun, [facility] [place] [facility] [address] [id number], [place] [address]- 7642 Jun, [facility] [place] [facility] [address] [id number] [place] [address]- 2107 Jun, [facility] [place] [facility] [address] [id number] [place] [address]- 9048 Jun, [facility] [place] [facility] [address] [id number] [place] [address]- 4747 Jun, [facility] [place] [facility] [address] [id number], [place] [address]- 2021 14 May, 2014 [facility] [place] [facility] [address] [id number] [place] [address]- 7082 14 May, 2014 [facility] [place] [facility] [address] [id number] [place] [address]- 0257 18 Mar, 2014 [facility] [place] [facility] [address] [id number] [place] [address]- 2772 18 Mar, 2014 [facility] [place] [facility] [address] [id number] [place] [address]- 4292 Mar, [facility] [place] [facility] [address] [id number] [place] [address]- 6574 Mar, [facility] [place] [facility] [address] [id number] [place] [address]- 7823 Feb, [facility] [place] [facility] [address] [id number] [place] [address]- 1960 Feb, [facility] [place] [facility] [address] [id number] [place] [address]- 6661 Feb, [facility] [place] [facility] [address] [id number] [place] [address]- 9918 Jan, [facility] [place] [facility] [address] [id number] [place] [address]- 1874 Jan, [facility] [place] [facility] [address] [id number] [place] [address]- 0462 Jan, [facility] [place] [facility] [address] [id number] [place] [address]- 4249 Jan, [facility] [place] [facility] [address] [id number] [place] [address] Jan, [facility] [place] [facility] [address] [id number] [place] [address] Jan, [facility] [place] [facility] [address] [id number] [place] [address] Jan, [facility] [place] [facility] [address] [id number] [place] [address] Jan, [facility] [place] [facility] [address] [id number] [place] [address] Jan, [facility] [place] [facility] [address] [id number] [place] [address] Jan, [facility] [place] [facility] [address] [id number] [place] [address] Dec, [facility] [place] [facility] [address] [id number] [place] [address] Dec, [facility] [place] [facility] [address] [id number] [place] [address] November, [facility] [place] [facility] [address] [id number] [place] [address] November, [facility] [place] [facility] [address] [id number] [place] [address]- [address] November, [facility] [place] [facility] [address] [id number] [place] [address] November, [facility] [place] [facility] [address] [id number] [place] [address] November, [facility] [place] [facility] [address] [id number] [place] [address] November, [facility] [place] [facility] [address] [id number] [place] [address]- [address] November, [facility] [place] [facility] [address] [id number] [place] [address] Oct, [facility] [place] [facility] [address] [id number] [place] [address] Oct, [facility] [place] [facility] [address] [id number] [place] [address] Sep, [facility] [place] [facility] [address] [id number] [place] [address] Sep, [facility] [place] [facility] [address] [id number] [place] [address] Sep, [facility] [place] [facility] [address] [id number] [place] [address] Sep, [facility] [place] [facility] [address] [id number] [place] [address] Sep, [facility] [place] [facility] [address] [id number] [place] [address] Sep, [facility] [place] [facility] [address] [id number] [place] [address] Sep, [facility] [place] [facility] [address] [id number] [place] [address] Sep, [facility] [place] [facility] [address] [id number] [place] [address]- [address] Sep, [facility] [place] [facility] [address] [id number] [place] [address]- [address] Sep, [facility] [place] [facility] [address] [id number] [place] [address]- 8325 Aug, [facility] [place] [facility] [address] [id number] [place] [address]- [address] Aug, [facility] [place] [facility] [address] [id number] [place] [address] 8137 Jul, [facility] [place] [facility] [address] [id number] [place] [address]- 8[address] Jul, [facility] [place] [facility] [address] [id number] [place] [address]- 2634 Jul, [facility] [place] [facility] [address] [id number] [place] [address]- 1328 Jul, [facility] [place] [facility] [address] [id number] [place] [address]- 6728 Jul, [facility] [place] [facility] [address] [id number] [place] [address]- 0799 Jul, [facility] [address] [id number] [place] [address]- 5718 Jun, [facility] [place] [facility] [address] [id number] [place] [address]- 8142 Jun, [facility] [address] [id number] [place] [address]- 4946 Jun, [facility] [place] [facility] [address] [id number] [place] [address]- 0173 Jun, [facility] [address] [id number] [place] [address]- 4258 May, [facility] [place] [facility] [address] [id number] [place] [address]- 8158 May, [facility] [address] [id number] [place] [address]- 4798 May, [facility] [address] [id number] [place] [address]- 3511 May, [facility] [place] [facility] [address] [id number] [place] [address]- 5202 May, [facility] [address] [id number] [place] [address]- 7237 Apr, [facility] [place] [facility] [address] [id number] [place] [address]- 7342 Apr, [facility] [place] [facility] [address] [id number] [place] [address]- 1339 Apr, [facility] [place] [facility] [address] [id number] [place] [address]- 5659 Apr, [facility] [place] [facility] [address] [id number] [place] [address]- 1889 Apr, [facility] [place] [facility] [address] [id number] [place] [address]- 0311 Apr, [facility] [place] [facility] [address] [id number] [place] [address]- 9356 Apr, [facility] [place] [facility] [address] [id number] [place] [address]- 2952 Apr, [facility] [place] [facility] [address] [id number] [place] [address]- 2212 Apr, [facility] [place] [facility] [address] [id number] [place] [address]- 0263 Apr, [facility] [place] [facility] [address] [id number] [place] [address]- 2201 Apr, [facility] [place] [facility] [address] [id number] [place] [address]- 7851 Apr, [facility] [place] [facility] [address] [id number] [place] [address]- 7463 Mar, [facility] [place] [facility] [address] [id number] [place] [address]- 5936 Mar, [facility] [place] [facility] [address] [id number] [place] [address]- 4082 Feb, [facility] [place] [facility] [address] [id number], [place] [address]- 89[address] Jan, [facility] [place] [facility] [address] [id number] [place] [address]- 1655 Jan, [facility] [place] [facility] [address] [id number], [place] [address] 2542 Jan, [facility] [place] [facility] [address] [id number] [place] [address] 2549 Jan, [facility] [place] [facility] [address] [id number], [place] [address]- 2541 Dec, [facility] [place] [facility] [address] [id number], [place] [address] 2544 Dec, [facility] [place] [facility] [address] [id number], [place] [address]- [address] Dec, [facility] [address] [id number] [place] [address]- 0535 Dec, [facility] [place] [facility] [address] [id number] [place] [address]- 1790 Dec, [facility] [address] [id number] [place] [address]- 9222 Dec, [facility] [place] [facility] [address] [id number] [place] [address]- 1161 05 Dec, 2012 [facility] [address] [id number] [place] [address]- 6164 November, [facility] [place] [facility] [address] [id number] [place] [address]- 7749 November, [facility] [address] [id number] [place] [address]- 4321 November, [facility] [place] [facility] [address] [id number] [place] [address]- 4905 Oct, [facility] [address] [id number] [place] [address]- 6281 Oct, [facility] [place] [facility] [address] [id number] [place] [address]- 4499 Oct, [facility] [place] [facility] [address] [id number] [place] [address]- 8244 Oct, [facility] [place] [facility] [address] [id number] [place] [address]- 9379 Oct, [facility] [place] [facility] [address] [id number] [place] [address]- 7055 Sep, [facility] [place] [facility] [address] [id number] [place] [address]- 8076 Sep, [facility] [place] [facility] [address] [id number] [place] [address]- 3782 Sep, [facility] [place] [facility] [address] [id number] [place] [address]- 9015 Sep, [facility] [place] [facility] [address] [id number] [place] [address]- 0406 Aug, [facility] [place] [facility] [address] [id number] [place] [address] 2546 Aug, [facility] [place] [facility] [address] [id number] [place] [address] 2546 Aug, [facility] [place] [facility] [address] [id number] [place] [address] 254 Aug, [facility] [place] [facility] [address] [id number] [place] [address]- 1292 Jul, [facility] [place] [facility] [address] [id number] [place] [address]- 4405 Jul, [facility] [place] [facility] [address] [id number] [place] [address]- 0457 Jun, [facility] [place] [facility] [address] [id number] [place] [address]- 4509 Jun, [facility] [place] [facility] [address] [id number] [place] [address]- 1421 Jun, [facility] [place] [facility] [address] [id number] [place] [address]- 8667 Jun, [facility] [place] [facility] [address] [id number] [place] [address]- 2543 May, [facility] [place] [facility] [address] [id number] [place] [address] 2548 May, [facility] [place] [facility] [address] [id number] [place] [address]- 2546 May, [facility] [place] [facility] [address] [id number] [place] [address]- 2545 May, [facility] [place] [facility] [address] [id number] [place] [address]- 5542 Apr, [facility] [place] [facility] [address] [id number] [place] [address]- 8656 Apr, [facility] [place] [facility] [address] [id number] [place] [address]- 6477 Apr, [facility] [place] [facility] [address] [id number] [place] [address]- 5531 Apr, [facility] [place] [facility] [address] [id number] [place] [address]- 3505 Apr, [facility] [place] [facility] [address] [id number] [place] [address] Apr, [facility] [place] [facility] [address] [id number] [place] [address]- 8472 Apr, [facility] [place] [facility] [address] [id number] [place] [address]- 4346 Apr, [facility] [place] [facility] [address] [id number] [place] [address]- 4895 Apr, [facility] [place] [facility] [address] [id number] [place] [address]- 5130 Apr, [facility] [place] [facility] [address] [id number] [place] [address]- 6943 Feb, [facility] [place] [facility] [address] [id number] [place] [address]- 7573 Feb, [facility] [place] [facility] [address] [id number], [place] [address]- 7126 Jan, [facility] [place] [facility] [address] [id number] [place] [address]- 9904 Jan, [facility] [place] [facility] [address] [id number] [place] [address]- 0219 Jan, [facility] [place] [facility] [address] [id number] [place] [address]- 4402 Jan, [facility] [place] [facility] [address] [id number] [place] [address] 2546 Jan, [facility] [address] [id number] [place] [address]- 6776 Jan, [facility] [address] [id number] [place] [address] 2546 Dec, [facility] [address] [id number] [place] [address]- 6566 November, [facility] [address] [id number] [place] [address] 2546 November, [facility] [address] [id number] [place] [address]- 1213 November, [facility] [address] [id number] [place] [address]- 8416 Sep, [facility] [address] [id number] [place] [address]- 5070 Sep, [facility] [address] [id number] [place] [address]- 0267 Sep, [facility] [address] [id number] [place] [address]- 5370 Sep, [facility] [address] [id number] [place] [address]- 6210 Sep, [facility] [place] [facility] [address] [id number] [place] [address]- 2546 Sep, [facility] [address] [id number] [place] [address]- 2546 Aug, [facility] [place] [facility] [address] [id number] [place] [address]- 9636 Aug, [facility] [place] [facility] [address] [id number] [place] [address]- 2546 Aug, [facility] [address] [id number] [place] [address]- 1324 Jul, [facility] [place] [facility] [address] [id number] [place] [address]- 4164 Jul, [facility] [place] [facility] [address] [id number] [place] [address]- 7215 Jul, [facility] [place] [facility] [address] [id number] [place] [address]- 0589 Jul, [facility] [place] [facility] [address] [id number] [place] [address]- 9627 Jun, [facility] [place] [facility] [address] [id number] [place] [address]- 4321 Jun, [facility] [place] [facility] [address] [id number] [place] [address]- 0423 Jun, [facility] [place] [facility] [address] [id number] [place] [address]- 9813 Jun, [facility] [place] [facility] [address] [id number] [place] [address]- 1130 Jun, [facility] [place] [facility] [address] [id number] [place] [address]- 1430 Jun, [facility] [place] [facility] [address] [id number] [place] [address]- 7325 May, [facility] [place] [facility] [address] [id number] [place] [address]- 9854 May, [facility] [place] [facility] [address] [id number], [place] [address]- 3449 May, [facility] [place] [facility] [address] [id number] [place] [address]- 0682 Apr, [facility] [place] [facility] [address] [id number] [place] [address]- 9421 Jan, [facility] [place] [facility] [address] [id number] [place] [address]- 4986 Jun, [facility] [place] [facility] [address] [id number] [place] [address]- 4096 20 Jun, 2010 [facility] [address] [id number] [place] [address]- 2906 15 Jun, 2010 [facility] [address] [id number] [place] [address] 2546 15 Jun, 2010 [facility] [address] [id number] [place] [address]- 5496 15 Jun, 2010 [facility] [place] [facility] [address] [id number] [place] [address] 2546 13 Jun, 2010 [facility] [address] [id number] [place] [address]- 3336 13 Jun, 2010 [facility] [address] [id number] [place] [address]- 8746 21 Apr, 2010 [facility] [address] [id number] [place] [address]- 8708 17 Feb, 2010 [facility] [address] [id number] [place] [address]- 7338 15 Aug, 2009 [facility] [address] [id number] [place] [address]- 8085 18 Jul, 2009 [facility] [address] [id number] [place] [address]- 8980 11 Jul, 2009 [facility] [address] [id number] [place] [address] 2546 29 Jun, 2009 [facility] [place] [facility] [address] [id number], [place] [address] 2546 28 Jun, 2009 [facility] [place] [facility] [address] [id number] [place] [address] 2546 28 Jun, 2009 [facility] [place] [facility] [address] [id number] [place] [address]- 2546 22 Jun, 2009 [facility] [place] [facility] [address] [id number], [place] [address]- 2546 16 Jun, 2009 [facility] [place] [facility] [id number], [place] [address]- 5587 Jun, [facility] [id number], [place] [address]- 3132 Jun, [facility] [id number], [place] [address]- 9192 May, [facility] [id number] [place] [address]- 3547 May, [facility] [id number] 9583 May, [facility] [id number] [place] [address] 88[address]35- 2064 May, [facility] [id number] [place] [address] 500179- 2131 May, [facility] [id number] [place] [address] 259[address]- 6211 May, [facility] [id number] 1120 May, [facility] [id number] [place] [address] 654434- 0593 Apr, [facility] [id number], [place] [address]- 6347 Apr, [facility] [id number], [place] [address]- 3776 Jan, [facility] [address] [id number] [address]326 Oct, IMMUNIZATIONS No Known Immunizations SOCIAL HISTORY Never Assessed REASON FOR VISIT Controlled Med Refill PLAN OF CARE VITAL SIGNS MEDICATIONS Medication Instructions Dosage Frequency Start Date End Date Duration Status Tramadol HCl 50 mg Orally 2 times a day 1 tablet as needed 12h 06 Aug, 2016 Jun, 28 days Active RESULTS No Results PROCEDURES [...]
--- OUTSIDE RECORDS SUMMARY | 2018-11-09 13:27 | XMS REPORT ---
Author Author PRABHA HILL [facility] Address [address] [place] [address] Care Team Providers Care Help Desk Internship Name Role Phone PRABHA HILL Unavailable PROBLEMS Type Condition ICD9-CM Code XNT91-DV Code Onset Dates Condition Status SNOMED Code Problem Hyperlipemia, mixed E78.2 Active 566999494 Problem Hypoglycemia E16.2 Active 034608842 Problem Hypernatremia E87.0 Active 76241083 Problem Neurogenic orthostatic hypotension G90.3 Active 446485644 Problem Dementia with Lewy bodies G31.83 Active 600835605 Problem Mixed stress and urge urinary incontinence N39.46 Active 809712623 Problem Coronary artery disease involving [place] coronary artery of pra[place] heart without angina pectoris I25.10 Active 1326111239715 Problem Unsteady gait R26.81 Active 92656497 Problem Hallucinations R44.3 Active 4322252 Problem Parkinsons disease G20 Active 08754819 Problem Episodic cluster headache, not intractable G44.019 Active 887162693 Problem Type 2 diabetes mellitus with unspecified complications E11.8 Active 96185666 Problem PVD (peripheral vascular disease) I73.9 Active 768082315 Problem Dementia in other diseases classified elsewhere without behavioral disturbance F02.80 Active 266911601 Problem Dysuria R30.0 Active 59564012 Problem Hypothyroidism (acquired) E03.9 Active 325819187 Problem Neuropathy G62.9 Active 820040963 Problem Status post amputation of toe of left foot Z89.422 Active 223225007 Problem Dysthymia F34.1 Active 00854573 Problem Essential hypertension I10 Active 93955343 Problem Polydipsia R63.1 Active 24700908 ALLERGIES No Information ENCOUNTERS Encounter Location Date Diagnosis [facility] [address] [facility] [id number] [address] Dec, [facility] [id number] [place] [address] 30597 -4304 Oct, [facility] [address] [place] [address] 82854- 2056 Oct, Parkinsons disease G20 [facility] [address] [place] [address] 57496 -9879 18 Oct, 2017 Acute cystitis without hematuria N30.00 and Viral upper respiratory tract infection J06.9 [facility] [id number] [place] [address] 94526- 2415 Oct, [facility] [id number] [place] [address] 39892- 5430 Oct, Type 2 diabetes mellitus with unspecified complications E11.8 [facility] [facility] [id number] [place] [address] 79549- 2918 16 Oct, 2017 Left shoulder pain M25.512 [facility] [id number] [place] [address] 89861- 0350 16 Oct, 2017 Type 2 diabetes mellitus with unspecified complications E11.8 ; Dysuria R30.0 and Neurogenic orthostatic hypotension G90.3 [facility] [id number] [place] [address] 01578- 4006 19 Sep, 2017 Left shoulder pain M25.512 [facility] [id number] [place] [address] 19497- 3515 12 Sep, 2017 Medicare annual wellness visit, initial Z00.00 ; Parkinsons disease G20 ; Type 2 diabetes mellitus with unspecified complications E11.8 ; Essential hypertension I10 ; Coronary artery disease involving [place] coronary artery of [place] heart without angina pectoris I25.10 ; Hypothyroidism (acquired ) E03.9 ; PVD (peripheral vascular disease) I73.9 ; Dysthymia F34.1 ; Hyperlipemia, mixed E78.2 ; Neuropathy G62.9 ; Encounter for immunization Z23 ; Encounter for other screening for malignant neoplasm of breast Z12.39 and Mixed stress and urge urinary incontinence N39.46 [facility] [id number] [place] [address] 17673- 8234 Aug, Parkinsons disease G20 [facility] [id number] [place] [address] 16558- 3887 Aug, Type 2 diabetes mellitus with unspecified complications E11.8 ; Left shoulder pain M25.512 and Hypotensive episode I95.9 [facility] [id number] [place] [address] 88971- 5056 Aug, Coronary artery disease involving [place] coronary artery of [place] heart without angina pectoris I25.10 [facility] [id number] [place] [address] 88908- 4620 07 Aug, 2017 Type 2 diabetes mellitus with unspecified complications E11.8 [facility] [id number] [place] [address] 59297- 7283 Jul, Callus of foot L84 [facility] [id number] [place] [address] 77400- 2211 Jul, [facility] [id number] [place] [address] 59364- 0393 Jul, Callus of foot L84 ; Episodic cluster headache, not intractable G44.019 ; Type 2 diabetes mellitus with unspecified complications E11.8 and Parkinsons disease G20 [facility] [id number] [place] [address] 69483- 2605 Jul, [facility] [id number] [place] [address] 90724- 7322 Jul, [facility] [id number] [place] [address] 70050- 5932 Jun, Type 2 diabetes mellitus with unspecified complications E11.8 ; Unsteady gait R26.81 ; Forgetfulness R68.89 and Hallucinations R44.3 [facility] [id number] [place] [address] 43087- 4779 Jun, [facility] [id number] [place] [address] 40275- 3152 Jun, Left shoulder pain M25.512 [facility] [id number] [place] [address] 88306- 4071 May, Hypernatremia E87.0 and Polydipsia R63.1 [facility] [id number] [place] [address] 77424- 6601 08 May, 2017 Hypernatremia E87.0 and Polydipsia R63.1 [place] [address] 12459- 0513 08 May, 2017 Hypoglycemia E16.2 ; Dysuria R30.0 ; Unsteadiness on feet R26.81 ; Forgetfulness R68.89 ; Type 2 diabetes mellitus with unspecified complications E11.8 and Yeast infection involving the vagina and surrounding area B37.3 [facility] [id number] [place] [address] 17150- 4972 May, Acute cystitis without hematuria N30.00 [facility] [address] 47920 -1227 Apr, Dysuria R30.0 and Acute cystitis without hematuria N30.00 [place] [address] 41227- 1187 Apr, Hypernatremia E87.0 and Polydipsia R63.1 [facility] [id number] [place] [address] 61740- 0091 Apr, Vertigo R42 and Type 2 diabetes mellitus with unspecified complications E11.8 [facility] [id number] [place] [address] 96115- 6504 Mar, [place] [address] 88166- 0961 19 Mar, 2017 Left shoulder pain M25.512 [facility] [id number] [place] [address] 30512- 6944 13 Mar, 2017 Vertigo R42 [place] [address] 00468- 4873 12 Mar, 2017 Polydipsia R63.1 [facility] [id number] [place] [address] 92623- 5058 12 Mar, 2017 Polydipsia R63.1 [facility] [id number] [place] [address] 75534- 9322 11 Mar, 2017 Vertigo R42 [facility] [address] 63923- 7686 07 Mar, 2017 Type 2 diabetes mellitus with unspecified complications E11.8 ; Vertigo R42 ; Polydipsia R63.1 ; Polyuria R35.8 ; Hypothyroidism ( acquired) E03.9 ; Abnormal urinalysis R82.90 and Dysthymia F34.1 [facility] [id number] [place] [address] 19639- 3502 05 Mar, 2017 Coronary artery disease of [place] artery with stable angina pectoris, unspecified whether pra[place] island or transplanted heart I25.118 ; Systolic CHF, chronic I50.22 ; Hyperlipemia, mixed E78.2 and Essential hypertension I10 [facility] [address] [id number] Feb, Dental caries K02.9 [place] [id number] [place] [address] 76023- 7737 Feb, Type 2 diabetes mellitus with diabetic neuropathy, unspecified E11.40 [facility] [id number] [place] [address] 76492- 7662 Dec, Left shoulder pain M25.512 [facility] [id number] [place] [address] 05884- 8919 Dec, [place] [address] 32516- 3424 Dec, Type 2 diabetes mellitus with unspecified complications E11.[address] [facility] [address] [id number] Dec, Dental examination Z01.20 [facility] [id number] [place] [address] 60190- 6098 Dec, Type 2 diabetes mellitus with diabetic neuropathy, unspecified E11.40 [facility] [id number] [place] [address] 00009- 3453 Dec, [facility] [place] [id number] [place] [address] 32791- 0430 Dec, Type 2 diabetes mellitus with diabetic neuropathy, unspecified E11.40 [facility] [id number] [place] [address] 05878- 9622 November, Left shoulder pain M25.512 [facility] [id number] [place] [address] 18755- 2875 November, [facility] [id number] [place] [address] 40561- 8868 November, Type 2 diabetes mellitus with unspecified complications E11.8 and Dysuria R30.0 [facility] [id number] [place] [address] 60945- 5479 Oct, Left shoulder pain M25.512 [facility] [id number] [place] [address] 22628- 2466 Sep, Left shoulder pain M25.512 [facility] [id number] [place] [address] 91431- 5739 Sep, Pre-op testing Z01.818 [facility] [facility] [id number] [place] [address] 67552- 3456 Sep, Pre-op testing Z01.818 [facility] [id number] [place] [address] 19473- 9665 Sep, Pre-op testing Z01.818 [facility] [id number] [place] [address] 31863- 1126 Sep, Pre-op testing Z01.818 and Mouth pain K13.79 [place] [address] 10948- 7078 Sep, Left shoulder pain M25.512 [place] [address] 72005- 2519 08 Aug, 2016 Other eczema L30.8 [facility] [place] [address] 14117- 6999 06 Aug, 2016 PVD (peripheral vascular disease) I73.9 ; Type 2 diabetes mellitus with unspecified complications E11.8 ; Acute cystitis with hematuria N30.01 ; Other eczema L30.8 ; Dysuria R30.0 and Left shoulder pain M25.512 [facility] [address] 66203 -9362 Jul, Otalgia of right ear H92.01 and Blood in ear canal, right H92.21 [place] [address] 10341- 8268 Jul, Arthralgia, unspecified joint M25.50 ; PVD (peripheral vascular disease) I73.9 and Neuropathy G62.9 [place] [address] 87260- 3453 Jul, [place] [place] [address] 43047- 4618 Jun, Medicare annual wellness visit, initial Z00.00 ; Cervicalgia M54.2 ; Radiculopathy of cervical region M54.12 ; Encounter for immunization Z23 ; Type 2 diabetes mellitus with unspecified complications E11.8 and Essential hypertension I10 [place] [id number] [place] [address] 84446- 9401 Jun, [place] [address] 28352- 9060 14 May, 2016 Hypothyroidism (acquired) E03.9 [place] [address] 20253- 9295 May, Dysuria R30.0 ; Essential hypertension I10 ; Hypothyroidism (acquired) E03.9 and PVD (peripheral vascular disease) I73.9 [facility] [address] [place] [address] 05125 -6055 May, Burning with urination R30.0 and Acute cystitis with hematuria N30.01 [facility] [id number] [place] [address] 14154- 4601 May, Dental examination Z01.20 [facility] [id number] [place] [address] 37804- 1635 May, Hypothyroidism (acquired) E03.9 [facility] [id number] [place] [address] 98821- 3134 Feb, [facility] [id number] [place] [address] 46785- 4247 Feb, Status post amputation of toe of left foot Z89.422 ; PVD ( peripheral vascular disease) I73.9 ; Type 2 diabetes mellitus with unspecified complications E11.8 and Essential hypertension I10 [facility] [id number] [place] [address] 74007- 1854 Jan, [facility] [id number] [place] [address] 38195- 9238 Jan, Hypothyroidism (acquired) E03.9 [facility] [id number] [place] [address] 71651- 6319 Jan, [facility] [id number] [place] [address] 89323- 7329 Jan, [facility] [id number] [place] [address] 41386- 0860 Jan, Type 2 diabetes mellitus with unspecified complications E11.8 ; Status post amputation of toe of left foot Z89.422 and Essential ( primary) hypertension I10 [facility] [id number] [place] [address] 83819- 2936 Jan, Type 2 diabetes mellitus with unspecified complications E11.8 ; Status post amputation of toe of left foot Z89.422 ; Essential hypertension I10 and PVD (peripheral vascular disease) I73.9 [facility] [place] [id number] [place] [address] 06207- 1760 Jan, [facility] [id number] [place] [address] 30090- 0882 Jan, [facility] [id number] [place] [address] 47963- 7257 Jan, [facility] [place] [id number] [place] [address] 94566- 3620 Jan, Weakness R53.1 ; Fatigue, unspecified type R53.83 ; PVD ( peripheral vascular disease) I73.9 ; Acute osteomyelitis of other site M86.18 ; Type 2 diabetes mellitus with diabetic neuropathy, unspecified E11.40 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 [facility] [id number] [place] [address] 22984- 6024 Dec, [facility] [id number] [place] [address] 52587- 7293 Dec, Type 2 diabetes mellitus with unspecified complications E11.8 [facility] [place] [id number] [place] [address] 60410- 8651 Dec, [place] [id number] [place] [address] 85990- 9188 Dec, Pressure ulcer, unspecified pressure ulcer stage L89.90 and Type 2 diabetes mellitus with unspecified complications E11.8 [facility] [id number] [place] [address] 45476 -9129 Dec, Toe infection L08.9 [facility] [id number] [place] [address] 30212- 9767 November, Dental caries K02.9 [facility] [id number] [place] [address] 14892- 5822 November, [place] [id number] [place] [address]- 5335 November, Dental examination Z01.20 [facility] [id number] [place] [address] 44724- 9909 Sep, Lipoma of torso D17.1 and Thoracic neuritis M54.14 [facility] [id number] [place] [address] 54272- 7943 Sep, [facility] [id number] [place] [address] 08387- 2398 Aug, [facility] [id number] [place] [address] 83137 -3037 Jul, Dysuria R30.0 and UTI (urinary tract infection) N39.0 [facility] [id number] [place] [address] 96599- 2877 Jun, Left shoulder pain M25.512 [facility] [id number] [place] [address] 04601- 0542 May, Shoulder pain, left M25.512 [facility] [id number] [place] [address] 12756- 1892 May, [facility] [id number] [place] [address] 00121- 3325 May, [place] [id number] [place] [address] 45808- 7148 May, Left shoulder pain M25.512 [facility] [id number] [place] [address] 21265- 0608 May, [facility] [id number] [place] [address] 08693- 7359 Apr, Encounter for immunization Z23 [facility] [id number] [place] [address] 19998- 4912 08 Apr, 2015 Urinary tract infection, site not specified N39.0 ; Hypotension, unspecified I95.9 ; Type 2 diabetes mellitus with unspecified complications E11.8 and Generalized edema R60.1 [facility] [id number] [place] [address] 92547- 6991 Apr, [facility] [id number] [place] [address] 76928- 0256 Mar, Diabetes with other specified manifestations, type II or unspecified type, not stated as uncontrolled 250.80 [facility] [address] 508536- 7909 Feb, Gout 274.9 and Diabetes 250.00 [facility] [id number] [place] [address] 41914- 4760 Jan, [facility] [id number] [place] [address] 08033- 2614 November, CAD (coronary artery disease) 414.00 and CHF (congestive heart failure) 428.0 [facility] [id number] [place] [address] 65122- 8362 Oct, [facility] [id number] [place] [address] 52231- 2325 Oct, [facility] [id number] [place] [address] 22199- 9735 Oct, [facility] [id number] [place] [address] 38605- 3529 Sep, [facility] [id number] [place] [address] 15727- 5006 Sep, [facility] [id number] [place] [address] 28879- 8815 Sep, [facility] [id number] [place] [address] 116291- 2728 Sep, [facility] [id number] [place] [address] 377645- 6522 Aug, [facility] [id number] [place] [address] 55817- 2943 Aug, [facility] [place] [facility] [address] [id number] [place] [address]- 7663 Aug, [facility] [place] [facility] [address] [id number] [place] [address]- 5416 Aug, 2014 [facility] [place] [facility] [address] [id number] [place] [address]- 8001 Aug, 2014 [facility] [place] [facility] [address] [id number] [place] [address]- 1626 Aug, 2014 [facility] [place] [facility] [address] [id number] [place] [address]- 3448 Aug, [facility] [place] [facility] [address] [id number] [place] [address]- 8719 Aug, [facility] [place] [facility] [address] [facility] [id number] [place] [address]- 6349 Jul, [facility] [place] [facility] [address] [id number] [place] [address]- 0957 Jul, [facility] [place] [facility] [address] [id number] [place] [address]- 2430 Jul, [facility] [place] [facility] [address] [facility] [id number] [place] [address]- 3965 Jul, [facility] [place] [facility] [address] [id number] [place] [address]- 7445 Jul, [facility] [place] [facility] [address] [id number] [address]- 1966 Jul, [facility] [place] [facility] [address] [id number] [address]- 6193 Jul, [facility] [place] [facility] [address] [id number] [place] [address]- 9739 Jul, [facility] [place] [facility] [address] [facility] [id number] [address]- 4111 Jul, [facility] [place] [facility] [address] [id number] [place] [address]- 8220 Jul, [facility] [place] [facility] [address] [id number] [place] [address]- 1185 Jun, [facility] [place] [facility] [address] [id number] [place] [address]- 1682 Jun, [facility] [place] [facility] [address] [id number] [place] [address]- 0564 Jun, [facility] [place] [facility] [address] [id number] [place] [address]- 9701 Jun, [facility] [place] [facility] [address] [id number] [place] 4051 Jun, [facility] [place] [facility] [address] [id number] [place] 6960 Jun, [facility] [place] [facility] [address] [id number] [place] [address]- 8914 Jun, [facility] [place] [facility] [address] [id number] [place]- 0863 Jun, [facility] [place] [facility] [address] [id number] [place] [address]- 3984 Jun, [facility] [place] [facility] [address] [id number] [place] [address]- 9201 Jun, [facility] [place] [facility] [address] [id number] [place] [address]- 7587 May, [facility] [place] [facility] [address] [id number] [place] [address]- 4336 May, [facility] [place] [facility] [address] [id number] [place] [address]- 9608 Mar, [facility] [place] [facility] [address] [id number] [place] [address]- 6286 18 Mar, 2014 [facility] [place] [facility] [address] [id number] [place] [address]- 1157 Mar, [facility] [place] [facility] [address] [id number] [place] [address] Mar, [facility] [place] [facility] [address] [id number] [place] [address] Feb, [facility] [place] [facility] [address] [id number] [place] [address] Feb, [facility] [place] [facility] [address] [id number] [place] [address] Feb, [facility] [place] [facility] [address] [id number] [place] [address] Jan, [facility] [place] [facility] [address] [id number] [place] [address] Jan, [facility] [place] [facility] [address] [id number] [place] [address] Jan, [facility] [place] [facility] [address] [id number] [place] [address] Jan, [facility] [place] [facility] [address] [id number] [place] [address] Jan, [facility] [place] [facility] [address] [id number] [place] [address] Jan, [facility] [place] [facility] [address] [id number] [place] [address] Jan, [facility] [place] [facility] [address] [id number] [place] [address] Jan, [facility] [place] [facility] [address] [id number] [place] [address] Jan, [facility] [place] [facility] [address] [id number] [place] [address] Jan, [facility] [place] [facility] [address] [id number] [place] [address] Dec, [facility] [place] [facility] [address] [id number] [place] [address] Dec, [facility] [address] [id number] [place] [address] November, [facility] [place] [facility] [address] [id number] [place] [address] November, [facility] [place] [facility] [address] [id number] [place] [address] [address] November, [facility] [place] [facility] [address] [id number] [place] [address] November, [facility] [place] [facility] [address] [id number] [place] [address] November, [facility] [place] [facility] [address] [id number] [place] [address] November, [facility] [address] [id number] [place] [address] November, [facility] [address] [id number] [place] [address] Oct, [facility] [place] [facility] [address] [id number] [place] [address] Oct, [facility] [address] [address] [id number] [place] [address] Sep, [facility] [place] [facility] [address] [id number] [place] [address] Sep, [facility] [place] [facility] [address] [id number] [place] [address] Sep, [facility] [place] [facility] [address] [id number] [place] [address] Sep, [facility] [place] [facility] [address] [id number] [place] [address] 58[address] Sep, [facility] [place] [facility] [address] [id number] [place] [address] Sep, [facility] [place] [facility] [address] [id number] [place] [address] Sep, [facility] [place] [facility] [address] [id number] [place] [address]- 5550 Sep, [facility] [place] [facility] [address] [id number] [place] [address]- 9613 Sep, [facility] [place] [facility] [address] [id number] [place] [address] Sep, [facility] [place] [facility] [address] [id number] [place] [address] 8401 Aug, [facility] [place] [facility] [address] [id number] [place] [address]- 2229 Aug, [facility] [place] [facility] [address] [id number] [place] [address]- 5814 Jul, [facility] [place] [facility] [address] [id number] [place] [address]- 1543 Jul, [facility] [place] [facility] [address] [id number] [place] [address]- 5581 Jul, [facility] [place] [facility] [address] [id number] [place] [address]- 2819 Jul, [facility] [place] [facility] [address] [id number] [place] [address]- 9210 Jul, [facility] [place] [facility] [address] [id number] [address] Jul, [facility] [place] [facility] [address] [id number] [place] [address]- 2323 Jun, [facility] [place] [facility] [address] [id number] [place] [address]- 1106 Jun, [facility] [place] [facility] [address] [id number] [address] Jun, [facility] [place] [facility] [address] [id number] [address] Jun, [facility] [place] [facility] [address] [id number] [place] [address]- 4422 May, [facility] [place] [facility] [address] [id number] [place] [address]- [address] 14 May, 2013 [facility] [place] [facility] [address] [id number] [place] [address]- 4535 May, [facility] [place] [facility] [address] [id number] [place] [address]- 8229 May, [facility] [place] [facility] [address] [id number] [place] [address]- 450[address] May, [facility] [place] [facility] [address] [id number] [place] [address]- 7390 Apr, [facility] [place] [facility] [address] [id number] [place] [address]- 4050 Apr, [facility] [place] [facility] [address] [id number] [place] [address]- 2870 Apr, [facility] [place] [facility] [address] [id number] [place] [address]- 3930 Apr, [facility] [place] [facility] [address] [id number] [place] [address]- 3133 Apr, [facility] [place] [facility] [address] [id number] [place] [address]- 1675 Apr, [facility] [place] [facility] [address] [id number] [address]- [address] Apr, [facility] [place] [facility] [address] [id number] [place] [address]- 9139 Apr, [facility] [place] [facility] [address] [id number] [place] [address]- 4616 Apr, [facility] [place] [facility] [address] [id number] [place] [address]- 3963 Apr, [facility] [place] [facility] [address] [id number] [place] [address]- 1374 Apr, [facility] [place] [facility] [address] [id number] [place] [address]- 1240 Apr, [facility] [place] [facility] [address] [id number] [place] [address] 2546 Mar, [facility] [place] [facility] [address] [id number] [place] [address]- 3590 Mar, [facility] [place] [facility] [address] [id number] [place] [address] 2542 Feb, [facility] [place] [facility] [address] [id number] [place] [address]- 9106 Jan, [facility] [place] [facility] [address] [id number] [place] [address]- 5445 Jan, [facility] [place] [facility] [address] [id number] [place] [address]- 0897 Jan, [facility] [place] [facility] [address] [id number] [place] [address]- 7522 Jan, [facility] [place] [facility] [address] [id number] [place] [address]- 0434 Dec, [facility] [place] [facility] [address] [id number] [place] [address]- 2439 Dec, [facility] [place] [facility] [address] [id number] [place] [address]- 3501 Dec, [facility] [place] [facility] [address] [id number] [place] [address]- 1015 Dec, [facility] [place] [facility] [address] [id number] [place] [address]- 2552 Dec, [facility] [place] [facility] [address] [id number] [place] [address]- 2546 Dec, [facility] [place] [facility] [address] [id number] [place] [address]- 3005 Dec, [facility] [address] [id number] [place] [address]- 0068 November, [facility] [place] [facility] [address] [id number] [place] [address]- 6755 November, [facility] [place] [facility] [address] [id number] [place] [address] November, [facility] [place] [facility] [address] [id number] [place] [address]- 8974 Oct, [facility] [place] [facility] [address] [id number] [place] [address]- 3960 Oct, [facility] [place] [facility] [address] [id number] [place] [address]- 4973 Oct, [facility] [place] [facility] [address] [id number] [place] [address]- 2354 Oct, [facility] [place] [facility] [address] [id number] [place] [address]- 9310 Oct, [facility] [place] [facility] [address] [id number] [place] [address]- 5672 Sep, [facility] [place] [facility] [address] [id number] [place] [address]- 7039 Sep, [facility] [place] [facility] [address] [id number] [place] [address]- 9293 Sep, [facility] [place] [facility] [address] [id number] [address]257 Sep, [facility] [place] [facility] [address] [id number] [place] [address]- 6454 Aug, [facility] [place] [facility] [address] [id number] [address]376 Aug, [facility] [place] [facility] [address] [id number] [place] [address]- 1170 Aug, [facility] [place] [facility] [address] [id number] [place] [address]- 4445 Aug, [facility] [address] [id number] [place] [address]- 7956 Jul, [facility] [place] [facility] [address] [id number] [place] [address]- 0140 Jul, [facility] [address] [id number] [place] [address]- 6208 Jun, [facility] [place] [facility] [address] [id number] [place] [address]- 9757 Jun, [facility] [address] [id number] [place] [address]- 1356 Jun, [facility] [place] [facility] [address] [id number] [place] [address]- 6852 Jun, [facility] [place] [facility] [address] [facility] [id number] [place] [address]- 3399 May, [facility] [place] [facility] [address] [id number] [place] [address]- 5048 May, [facility] [place] [facility] [address] [facility] [id number] [place] [address]- 1863 May, [facility] [address] [facility] [id number] [place] [address]- 7412 May, [facility] [place] [facility] [address] [facility] [id number] [place] [address]- 3630 Apr, [facility] [place] [facility] [address] [id number] [place] [address]- 3292 Apr, [facility] [place] [facility] [address] [id number] [place] [address]- 0571 Apr, [facility] [place] [facility] [address] [facility] [id number] [place] [address]- 2112 Apr, [facility] [place] [facility] [address] [facility] [id number] [place] [address]- 4202 Apr, [facility] [place] [facility] [address] [id number] [place] [address]- 3247 Apr, [facility] [place] [facility] [address] [id number] [place] [address]- 3703 Apr, [facility] [place] [facility] [address] [id number] [place] [address]- 2187 Apr, [facility] [place] [facility] [address] [id number] [place] [address]- 9336 Apr, [facility] [place] [facility] [address] [id number] [place] [address]- 2486 Apr, [facility] [place] [facility] [address] [id number] [place] [address]- 4155 Feb, [facility] [place] [facility] [address] [id number] [place] [address]- 9020 Feb, [facility] [place] [facility] [address] [id number] [place] [address]- 1631 Jan, [facility] [place] [facility] [address] [id number] [place] [address]- 5692 Jan, [facility] [place] [facility] [address] [id number] [place] [address]- 8303 Jan, [facility] [place] [facility] [address] [id number] [place] [address]- 5588 Jan, [facility] [place] [facility] [address] [id number] [address]- 6609 Jan, [facility] [place] [facility] [address] [id number] [place] [address]- 1945 Jan, [facility] [place] [facility] [address] [id number] [place] [address]- 2144 Dec, [facility] [place] [facility] [address] [id number] [place] [address]- 2895 November, [facility] [place] [facility] [address] [id number] [address]- 9454 November, [facility] [address] [id number] [place] [address]- 1066 November, [facility] [place] [facility] [address] [id number] [place] [address]- 5566 Sep, [facility] [address] [id number] [place] [address]- 5836 Sep, [facility] [place] [facility] [address] [id number] [place] [address]- 7549 Sep, [facility] [address] [id number] [place] [address]- 0474 Sep, [facility] [address] [id number] [place] [address]- 7968 Sep, [facility] [address] [facility] [id number] [place] [address]- 8000 Sep, [facility] [place] [facility] [address] [id number] [place] [address]- 3747 Aug, [facility] [address] [id number] [place] [address]- 3304 Aug, [facility] [address] [id number] [place] [address]- 2099 Aug, [facility] [address] [id number] [place] [address]- 3511 Jul, [facility] [place] [facility] [address] [id number] [place] [address]- 9374 Jul, [facility] [place] [facility] [address] [id number] [place] [address]- 4358 Jul, [facility] [place] [facility] [address] [id number] [place] [address]- 9956 Jul, [facility] [place] [facility] [address] [facility] [id number] [place] [address]- 2213 Jun, [facility] [place] [facility] [address] [id number] [place] [address]- 2478 08 Jun, 2011 [facility] [place] [facility] [address] [id number] [place] [address]- 2046 Jun, [facility] [place] [facility] [address] [id number] [place] [address]- 0326 Jun, [facility] [place] [facility] [address] [id number] [place] [address]- 7286 Jun, [facility] [place] [facility] [address] [id number] [place] [address]- 1332 Jun, [facility] [place] [facility] [address] [id number] [place] [address]- 0688 May, [facility] [place] [facility] [address] [id number] [place] [address]- 5208 May, [facility] [place] [facility] [address] [id number] [place] [address]- 2591 May, [facility] [place] [facility] [address] [id number] [place] [address]- 3385 Apr, [facility] [place] [facility] [address] [id number] [place] [address]- 3249 Jan, [facility] [place] [facility] [address] [id number] [place] [address]- 9932 Jun, [facility] [place] [facility] [address] [id number] [place] [address]- 6107 Jun, [facility] [place] [facility] [address] [id number] [place] [address] 2546 15 Jun, 2010 [facility] [place] [facility] [address] [id number] [place] [address] 2546 Jun, [facility] [place] [facility] [address] [id number] [place] [address]- 2545 15 Jun, 2010 [facility] [place] [facility] [address] [id number] [place] [address]- 9190 13 Jun, 2010 [facility] [address] [id number] [place] [address]- 2336 13 Jun, 2010 [facility] [place] [facility] [address] [id number] [place] [address]- 8696 21 Apr, 2010 [facility] [address] [facility] [id number] [place] [address] 2546 17 Feb, 2010 [facility] [place] [facility] [address] [id number] [place] [address] 2546 15 Aug, 2009 [facility] [address] [id number] [place] [address]- 0416 18 Jul, 2009 [facility] [place] [facility] [address] [id number] [place] [address] 2546 11 Jul, 2009 [facility] [address] [id number] [place] [address]- 4066 29 Jun, 2009 [facility] [place] [facility] [address] [id number] [place] [address]- 2549 28 Jun, 2009 [facility] [address] [id number] [place] [address]- 0912 28 Jun, 2009 [facility] [place] [facility] [address] [id number] [place] [address]- 2142 22 Jun, 2009 [facility] [address] [id number] [address]- 3863 16 Jun, 2009 [facility] [place] [facility] [address] [id number] [address] 2546 09 Jun, 2009 [facility] [place] [facility] [address] [id number] [place] [address] 2546 Jun, [facility] [place] [facility] [address] [facility] [id number] [address] 2548 30 May, 2009 [facility] [place] [facility] [address] [facility] [id number] [place] [address] 2546 May, [facility] [place] [facility] [address] [id number] [address]- 2583 May, [facility] [address] [id number] [address]- 6215 May, [facility] [id number] [address]- 5928 May, [facility] [id number] [address]- 7147 May, [facility] [id number] [address]- 3723 May, [facility] [id number] [place] [address]- 6869 Apr, [facility] [id number] [address]- 4773 Apr, [facility] [id number] [address] Jan, [facility] [address] [id number] [address]- 2855 Oct, IMMUNIZATIONS No Known Immunizations SOCIAL HISTORY Never Assessed REASON FOR VISIT Lab (walk-in) PLAN OF CARE VITAL SIGNS MEDICATIONS Unknown Medications RESULTS Name Result Date Reference Range CREATININE, URINE 2017-04-07 Creatinine, Urine OSMOLALITY, SERUM 2017-04-07 Osmolality 295 280-301 OSMOLALITY, URINE 2017-04-07 Osmolality, Urine 491 URINE SODIUM, RANDOM 2017-04-07 Sodium, Urine 133 Not Estab. CREATININE, URINE 2017-04-07 Creatinine, Urine 44.8 Not Estab. BMP 2017-04-07 Glucose, Serum 161 65-99 BUN 18 8-27 Creatinine, Serum 0.90 0.57-1.00 eGFR If NonAfricn Am 63 >59 eGFR If Africn Am 73 >59 BUN/Creatinine Ratio 20 12-28 Sodium, Serum 141 134-144 Potassium, Serum 5.0 3.5-5.2 Chloride, Serum 101 96-106 Carbon Dioxide, Total 26 18-29 Calcium, Serum 9.4 8.7-10.3 Written Authorization 2017-04-07 Written Authorization PROCEDURES Procedure Date Ordered Result Body Site [facility] Apr 07, 2017 VENIPARELY, ROUTINE* Apr 07, 2017 INSTRUCTIONS MEDICATIONS ADMINISTERED No Known Medications [...]
--- OUTSIDE RECORDS SUMMARY | 2018-11-09 13:28 | XMS REPORT ---
Author Author PRABHA HILL [facility] Address [address] [place] [address] Care Team Providers Care Stone Driller Name Role Phone PRABHA HILL Unavailable PROBLEMS Type Condition ICD9-CM Code APY73-PA Code Onset Dates Condition Status SNOMED Code Problem Hypernatremia E87.0 Active 98009185 Problem Hallucinations R44.3 Active 6157147 Problem Hypoglycemia E16.2 Active 852614171 Problem Anxiety F41.9 Active 38012156 Problem Dementia in other diseases classified elsewhere without behavioral disturbance F02.80 Active 536320865 Problem Neurogenic orthostatic hypotension G90.3 Active 616422239 Problem Dementia with Lewy bodies G31.83 Active 115477226 Problem 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 Active [id number] Problem Parkinsons disease G20 Active 64143839 Problem Unsteady gait R26.81 Active 96392708 Problem Mixed stress and urge urinary incontinence N39.46 Active 579731259 Problem Episodic cluster headache, not intractable G44.019 Active 467086157 Problem PVD (peripheral vascular disease) I73.9 Active 865135102 Problem Status post amputation of toe of left foot Z89.422 Active 196357075 Problem Dysuria R30.0 Active 65450044 Problem Type 2 diabetes mellitus with unspecified complications E11.8 Active 49992318 Problem Neuropathy G62.9 Active 346412521 Problem Polydipsia R63.1 Active 15476188 Problem Essential hypertension I10 Active 85122707 Problem Dysthymia F34.1 Active 18422970 Problem Hypothyroidism (acquired) E03.9 Active 616436364 Problem Hyperlipemia, mixed E78.2 Active 260516058 ALLERGIES Substance Reaction Event Type Date Status Sulfamethoxazole-Trimethoprim Unknown Drug Allergy Jun, Active Protamine Sulfate Unknown Drug Allergy Jun, Active Penicillin V Potassium Unknown Drug Allergy Jun, Active Cipro lowers blood sugar Drug Allergy Jun, Active ENCOUNTERS Encounter Location Date Diagnosis [facility] [id number] [place] [address] 77718- 0448 Dec, Left shoulder pain M25.512 [facility] [id number] [place] [address] 99194- 1020 Dec, Type 2 diabetes mellitus with unspecified complications E11.8 ; Anxiety F41.9 ; Therapeutic drug monitoring Z51.81 and Analgesic use Z79.899 [facility] [id number] [place] [address] 82303- 9367 November, [facility] [address] 10999- 9360 November, [facility] [id number] [place] [address] 79446- 2674 November, Left shoulder pain M25.512 [facility] [address] 88954- 2178 Oct, [facility] [id number] [place] [address] 54178 -7279 Oct, [facility] [id number] [place] [address] 51482- 0027 Oct, Parkinsons disease G20 [facility] [id number] [place] [address] 47987 -0360 18 Oct, 2017 Acute cystitis without hematuria N30.00 and Viral upper respiratory tract infection J06.9 [facility] [id number] [place] [address] 51020- 4970 Oct, [facility] [id number] [place] [address] 88460- 1705 Oct, Type 2 diabetes mellitus with unspecified complications E11.8 [facility] [id number] [place] [address] 21709- 3875 16 Oct, 2017 Left shoulder pain M25.512 [facility] [address] 29088- 3630 Oct, Type 2 diabetes mellitus with unspecified complications E11.8 ; Dysuria R30.0 and Neurogenic orthostatic hypotension G90.3 [place] [address] 72712- 2044 Sep, Left shoulder pain M25.512 [place] [address] 67980- 7407 Sep, Medicare annual wellness visit, initial Z00.00 ; Parkinsons disease G20 ; Type 2 diabetes mellitus with unspecified complications E11.8 ; Essential hypertension I10 ; 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 ; Hypothyroidism (acquired ) E03.9 ; PVD (peripheral vascular disease) I73.9 ; Dysthymia F34.1 ; Hyperlipemia, mixed E78.2 ; Neuropathy G62.9 ; Encounter for immunization Z23 ; Encounter for other screening for malignant neoplasm of breast Z12.39 and Mixed stress and urge urinary incontinence N39.46 [place] [address] 88302- 2777 25 Aug, 2017 Parkinsons disease G20 [place] [address] 78922- 4689 21 Aug, 2017 Type 2 diabetes mellitus with unspecified complications E11.8 ; Left shoulder pain M25.512 and Hypotensive episode I95.9 [place] [address] 52111- 7944 09 Aug, 2017 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 [place] [address] 08452- 2980 07 Aug, 2017 Type 2 diabetes mellitus with unspecified complications E11.8 [place] [address] 73704- 2329 Jul, Callus of foot L84 [place] [address] 31895- 2437 Jul, [place] [id number] [place] [address] 79577- 6252 Jul, Callus of foot L84 ; Episodic cluster headache, not intractable G44.019 ; Type 2 diabetes mellitus with unspecified complications E11.8 and Parkinsons disease G20 [place] [id number] [place] [address] 23994- 9389 Jul, [place] [address] 59629- 2365 Jul, [place] [id number] [place] [address] 51720- 8732 Jun, Type 2 diabetes mellitus with unspecified complications E11.8 ; Unsteady gait R26.81 ; Forgetfulness R68.89 and Hallucinations R44.3 [place] [id number] [place] [address] 85636- 8732 Jun, [place] [id number] [place] [address] 11963- 2877 Jun, Left shoulder pain M25.512 [place] [id number] [place] [address] 05655- 2752 May, Hypernatremia E87.0 and Polydipsia R63.1 [place] [id number] [place] [address] 63052- 8164 08 May, 2017 Hypernatremia E87.0 and Polydipsia R63.1 [place] [id number] [place] [address] 14680- 0277 08 May, 2017 Hypoglycemia E16.2 ; Dysuria R30.0 ; Unsteadiness on feet R26.81 ; Forgetfulness R68.89 ; Type 2 diabetes mellitus with unspecified complications E11.8 and Yeast infection involving the vagina and surrounding area B37.3 [place] [id number] [place] [address] 34146- 9048 May, Acute cystitis without hematuria N30.00 [facility] [id number] [place] [address] 81963 -0503 Apr, Dysuria R30.0 and Acute cystitis without hematuria N30.00 [facility] [id number] [place] [address] 29721- 2834 Apr, Hypernatremia E87.0 and Polydipsia R63.1 [place] [address] 05382- 3644 Apr, Vertigo R42 and Type 2 diabetes mellitus with unspecified complications E11.8 [place] [address] 25479- 2309 Mar, [place] [address] 97254- 1490 19 Mar, 2017 Left shoulder pain M25.512 [place] [address] 14256- 9055 13 Mar, 2017 Vertigo R42 [place] [address] 85597- 0957 12 Mar, 2017 Polydipsia R63.1 [place] [address] 91280- 3909 Mar, Polydipsia R63.1 [place] [id number] [place] [address] 19698- 8045 Mar, Vertigo R42 [place] [address] 91992- 7309 07 Mar, 2017 Type 2 diabetes mellitus with unspecified complications E11.8 ; Vertigo R42 ; Polydipsia R63.1 ; Polyuria R35.8 ; Hypothyroidism ( acquired) E03.9 ; Abnormal urinalysis R82.90 and Dysthymia F34.1 [facility] [id number] [place] [address] 94985- 4767 05 Mar, 2017 Coronary artery disease of rosebud artery with stable angina pectoris, unspecified whether rosebud or transplanted heart I25.118 ; Systolic CHF, chronic I50.22 ; Hyperlipemia, mixed E78.2 and Essential hypertension I10 [facility] [id number] [place] [address] [id number] Feb, Dental caries K02.9 [facility] [id number] [place] [address] 06611- 2310 Feb, Type 2 diabetes mellitus with diabetic neuropathy, unspecified E11.40 [facility] [id number] [place] [address] 17752- 8834 Dec, Left shoulder pain M25.512 [facility] [address] 16234- 0547 Dec, [facility] [id number] [place] [address] 80555- 3943 Dec, Type 2 diabetes mellitus with unspecified complications E11.8 [facility] [id number] [place] [address] [id number] Dec, Dental examination Z01.20 [facility] [id number] [place] [address] 84076- 7551 Dec, Type 2 diabetes mellitus with diabetic neuropathy, unspecified E11.40 [facility] [id number] [place] [address] 76077- 5044 Dec, [facility] [id number] [place] [address] 41175- 0978 Dec, Type 2 diabetes mellitus with diabetic neuropathy, unspecified E11.40 [facility] [id number] [place] [address] 62980- 1450 November, Left shoulder pain M25.512 [facility] [id number] [place] [address] 13825- 0214 November, [facility] [id number] [place] [address] 17958- 7982 November, Type 2 diabetes mellitus with unspecified complications E11.8 and Dysuria R30.0 [place] [id number] [place] [address] 63319- 5243 Oct, Left shoulder pain M25.512 [place] [id number] [place] [id number]- 1670 Sep, Left shoulder pain M25.512 [place] [id number] [place] [address] 39161- 1907 Sep, Pre-op testing Z01.818 [place] [id number] [place] [address] 58196- 2339 Sep, Pre-op testing Z01.818 [place] [address] 15703- 3166 Sep, Pre-op testing Z01.818 [place] [id number] [place] [address] 12575- 9031 Sep, Pre-op testing Z01.818 and Mouth pain K13.79 [place] [id number] [place] [address] 93114- 2147 Sep, Left shoulder pain M25.512 [place] [id number] [place] [address] 88279- 3060 Aug, Other eczema L30.8 [place] [id number] [place] [address] 09804- 8500 Aug, PVD (peripheral vascular disease) I73.9 ; Type 2 diabetes mellitus with unspecified complications E11.8 ; Acute cystitis with hematuria N30.01 ; Other eczema L30.8 ; Dysuria R30.0 and Left shoulder pain M25.512 [facility] [id number] [place] [address] 64104 -7635 Jul, Otalgia of right ear H92.01 and Blood in ear canal, right H92.21 [place] [id number] [place] [address] 44651- 8895 Jul, Arthralgia, unspecified joint M25.50 ; PVD (peripheral vascular disease) I73.9 and Neuropathy G62.9 [facility] [address] 62024- 1161 Jul, [facility] [id number] [place] [address] 83771- 9118 Jun, Medicare annual wellness visit, initial Z00.00 ; Cervicalgia M54.2 ; Radiculopathy of cervical region M54.12 ; Encounter for immunization Z23 ; Type 2 diabetes mellitus with unspecified complications E11.8 and Essential hypertension I10 [place] [address] 79818- 8315 Jun, [place] [address] 89872- 5841 May, Hypothyroidism (acquired) E03.[address] 31017- 1181 May, Dysuria R30.0 ; Essential hypertension I10 ; Hypothyroidism (acquired) E03.9 and PVD (peripheral vascular disease) I73.9 [facility] [id number] [place] [address] 59639 -0762 May, Burning with urination R30.0 and Acute cystitis with hematuria N30.01 [facility] [id number] [place] [address] 95717- 0233 May, Dental examination Z01.20 [facility] [id number] [place] [address] 52272- 2647 May, Hypothyroidism (acquired) E03.9 [place] [address] 07867- 9174 Feb, [facility] [address] 32214- 4141 Feb, Status post amputation of toe of left foot Z89.422 ; PVD ( peripheral vascular disease) I73.9 ; Type 2 diabetes mellitus with unspecified complications E11.8 and Essential hypertension I10 [place] [id number] [place] [address] 02704- 7312 Jan, [place] [id number] [place] [address] 81348- 3228 Jan, Hypothyroidism (acquired) E03.9 [place] [address] 94021- 4502 Jan, [place] [id number] [place] [address] 51024- 0191 Jan, [place] [id number] [place] [address] 30073- 5872 Jan, Type 2 diabetes mellitus with unspecified complications E11.8 ; Status post amputation of toe of left foot Z89.422 and Essential ( primary) hypertension I10 [place] [id number] [place] [address] 93359- 8492 Jan, Type 2 diabetes mellitus with unspecified complications E11.8 ; Status post amputation of toe of left foot Z89.422 ; Essential hypertension I10 and PVD (peripheral vascular disease) I73.9 [place] [id number] [place] [address] 88903- 4752 Jan, [place] [id number] [place] [address] 34516- 5409 Jan, [place] [id number] [place] [address] 00263- 0420 Jan, [place] [id number] [place] [address] 25343- 1090 Jan, Weakness R53.1 ; Fatigue, unspecified type R53.83 ; PVD ( peripheral vascular disease) I73.9 ; Acute osteomyelitis of other site M86.18 ; Type 2 diabetes mellitus with diabetic neuropathy, unspecified E11.40 and longterm 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.4 [place] [id number] [place] [address] 91609- 7976 30 Dec, 2015 [place] [id number] [place] [address] 99634- 2844 Dec, Type 2 diabetes mellitus with unspecified complications E11.8 [place] [id number] [place] [address] 57632- 1701 Dec, [place] [id number] [place] [address] 89788- 4341 Dec, Pressure ulcer, unspecified pressure ulcer stage L89.90 and Type 2 diabetes mellitus with unspecified complications E11.8 [facility] [id number] [place] [address] 49729 -4262 Dec, Toe infection L08.9 [place] [id number] [place] [address] 23611- 3865 November, Dental caries K02.9 [place] [id number] [place] [address] 61867- 2936 November, [place] [id number] [place] [address] 59209- 4942 November, Dental examination Z01.20 [place] [id number] [place] [address] 85920- 4635 Sep, Lipoma of torso D17.1 and Thoracic neuritis M54.14 [place] [id number] [place] [address] 03787- 1394 Sep, [place] [id number] [place] [address] 79696- 6311 Aug, [facility] [id number] [place] [address] 64118 -2921 Jul, Dysuria R30.0 and UTI (urinary tract infection) N39.0 [place] [address] [address]- 0601 Jun, Left shoulder pain M25.512 [place] [id number] [place] [address] 00940- 5346 May, Shoulder pain, left M25.512 [place] [id number] [place] [address] 18130- 7675 May, [place] [address] 00631- 8326 May, [place] [address] 36441- 9862 May, Left shoulder pain M25.512 [place] [id number] [place] [address] 53070- 5287 May, [place] [id number] [place] [address] 72423- 2127 Apr, Encounter for immunization Z23 [place] [address] 94534- 2961 Apr, Urinary tract infection, site not specified N39.0 ; Hypotension, unspecified I95.9 ; Type 2 diabetes mellitus with unspecified complications E11.8 and Generalized edema R60.1 [place] [id number] [place] [address] 54901- 8917 Apr, [place] [id number] [place] [address] 64259- 9085 Mar, Diabetes with other specified manifestations, type II or unspecified type, not stated as uncontrolled 250.80 [place] [id number] [place] [address] 14416- 1790 Feb, Gout 274.9 and Diabetes 250.00 [place] [address] 55391- 1783 Jan, [place] [id number] [place] [address] 55712- 6663 November, CAD (coronary artery disease) 414.00 and CHF (congestive heart failure) 428.0 [place] [address] [place] [address]- 3884 28 Oct, 2014 [facility] [place] [facility] [address] [id number] [place] [address]- 8493 14 Oct, 2014 [facility] [place] [facility] [address] [facility] [id number] [place] [address]- 3713 13 Oct, 2014 [facility] [place] [facility] [address] [facility] [id number] [place] [address]- 4520 30 Sep, 2014 [facility] [place] [facility] [address] [facility] [id number] [place] [address]- 5994 Sep, [facility] [place] [facility] [address] [facility] [id number] [place] [address]- 0792 Sep, [facility] [place] [facility] [address] [facility] [id number] [place] [address]- 9296 Sep, [facility] [place] [facility] [id number] [place] [address]- 8928 Aug, 2014 [facility] [place] [facility] [address] [facility] [id number] [place] [address]- 8422 Aug, 2014 [facility] [place] [facility] [address] [place] [address]- 2183 10 Aug, 2014 [facility] [place] [facility] [id number] [place] [address]- 2391 10 Aug, 2014 [facility] [place] [facility] [address] [facility] [id number] [place] [address]- 5152 10 Aug, 2014 [facility] [place] [facility] [address] [facility] [id number] [place] [address]- 2545 Aug, 2014 [facility] [place] [facility] [address] [facility] [id number] [place] [address]- 3574 05 Aug, 2014 [facility] [place] [facility] [address] [facility] [id number]- 3354 05 Aug, 2014 [facility] [place] [facility] [id number] [address]- 4125 Jul, [facility] [place] [facility] [address] [id number] [place] [address]- 5703 Jul, [facility] [place] [facility] [address] [id number] [place] [address]- 6736 Jul, [facility] [place] [facility] [address] [facility] [id number] [place] [address]- 8181 Jul, [facility] [place] [facility] [address] [id number] [place] [address]- 7216 Jul, [facility] [place] [facility] [address] [id number] [place] [address]- 1253 Jul, [facility] [place] [facility] [address] [id number] [place] [address]- 8638 Jul, [facility] [place] [facility] [address] [id number] [place] [address]- 1905 Jul, [facility] [place] [facility] [address] [id number], [place] [address]- 0418 Jul, [facility] [place] [facility] [address] [id number] [place] [address]- 8950 Jul, [facility] [place] [facility] [address] [id number] [place] [address]- 2464 Jun, [facility] [place] [facility] [address] [id number], [place] [address]- 7641 Jun, [facility] [place] [facility] [address] [id number], [place] [address]- 0741 Jun, [facility] [place] [facility] [address] [id number] [place] [address]- 0574 Jun, [facility] [place] [facility] [address] [id number], [place] [address]- 7354 Jun, [facility] [place] [facility] [address] [id number] [place] 1039 Jun, [facility] [place] [facility] [address] [id number] [place] [address]- 6561 Jun, [facility] [place] [facility] [address] [id number] [place] [address]- 1815 Jun, [facility] [place] [facility] [address] [id number] [place] [address]- 0190 Jun, [facility] [place] [facility] [address] [id number] [place] [address]- 9666 Jun, [facility] [place] [facility] [address] [id number] [place] [address]- 9926 May, [facility] [place] [facility] [address] [id number] [place] [address] May, [facility] [place] [facility] [address] [id number] [place] [address] Mar, [facility] [place] [facility] [address] [id number] [place] [address] Mar, [facility] [place] [facility] [address] [id number] [place] [address] Mar, [facility] [place] [facility] [address] [id number] [place] [address] Mar, [facility] [place] [facility] [address] [id number] [place] [address] Feb, [facility] [place] [facility] [address] [id number] [place] [address] Feb, [facility] [place] [facility] [address] [id number] [place] [address] Feb, [facility] [place] [facility] [address] [id number] [place] [address] Jan, [facility] [place] [facility] [address] [id number] [place] [address] Jan, [facility] [place] [facility] [address] [id number] [place] [address] Jan, [facility] [place] [facility] [address] [id number] [place] [address] Jan, [facility] [place] [facility] [address] [id number] [place] [address] Jan, [facility] [place] [facility] [address] [id number] [place] [address] Jan, [facility] [place] [facility] [address] [id number] [place] [address] Jan, [facility] [place] [facility] [address] [id number] [place] [address] Jan, [facility] [place] [facility] [address] [id number] [place] [address] Jan, [facility] [place] [facility] [address] [id number] [place] [address] Jan, [facility] [place] [facility] [address] [id number] [place] [address] Dec, [facility] [place] [facility] [address] [id number] [place] [address] Dec, [facility] [place] [facility] [address] [id number] [place] [address] November, [facility] [place] [facility] [address] [id number] [place] [address] November, [facility] [place] [facility] [address] [id number] [place] [address] November, [facility] [place] [facility] [address] [id number] [place] [address] November, [facility] [place] [facility] [address] [address] [id number] [place] [address] November, [facility] [place] [facility] [address] [id number] [place] [address] November, [facility] [place] [facility] [address] [id number] [place] [address] November, [facility] [place] [facility] [address] [id number] [place] [address] 67[address] Oct, [facility] [place] [facility] [address] [id number] [place] [address]241 Oct, [facility] [place] [facility] [address] [id number] [place] [address] 90[address] Sep, [facility] [place] [facility] [address] [id number] [place] [address] 78[address] Sep, [facility] [place] [facility] [address] [id number] [place] [address] 97[address] Sep, [facility] [place] [facility] [address] [id number] [place] [address] Sep, [facility] [place] [facility] [address] [id number] [place] [address] 7768 Sep, [facility] [place] [facility] [address] [id number] [place] [address] 9824 Sep, [facility] [place] [facility] [address] [id number] [place] [address] 9338 Sep, [facility] [place] [facility] [address] [id number] [place] [address] Sep, [facility] [place] [facility] [address] [id number] [place] [address]- 3631 Sep, [facility] [place] [facility] [address] [id number] [place] [address] 5952 Sep, [facility] [place] [facility] [address] [id number] [place] [address]- 6788 Aug, [facility] [place] [facility] [address] [id number] [place] [address] Aug, [facility] [place] [facility] [address] [id number] [place] [address]- 9825 Jul, [facility] [place] [facility] [address] [id number] [place] [address]- 6579 14 Jul, 2013 [facility] [place] [facility] [address] [id number] [place] [address]- 2148 13 Jul, 2013 [facility] [place] [facility] [address] [id number] [place] [address]- 4676 13 Jul, 2013 [facility] [place] [facility] [address] [id number] [place] [address]- 9839 06 Jul, 2013 [facility] [place] [facility] [address] [id number] [place] [address]- 2549 06 Jul, 2013 [facility] [place] [facility] [address] [id number] [place] [address] 8296 Jun, [facility] [place] [facility] [address] [id number] [place] [address]- 6469 Jun, [facility] [place] [facility] [address] [id number] [place] [address]- 7217 Jun, [facility] [place] [facility] [address] [id number] [place] [address]- 8983 Jun, [facility] [place] [facility] [address] [id number] [place] [address] 1884 May, [facility] [place] [facility] [address] [id number] [place] [address]- 1574 14 May, 2013 [facility] [place] [facility] [address] [id number] [place] [address]- 7257 May, [facility] [place] [facility] [address] [id number] [place] [address]- 2187 May, [facility] [place] [facility] [address] [id number] [place] [address]- 2316 May, [facility] [place] [facility] [address] [id number] [place] [address]- 3989 Apr, [facility] [place] [facility] [address] [id number] [place] [address]- 4702 Apr, [facility] [place] [facility] [address] [id number] [place] [address]- 7952 Apr, [facility] [place] [facility] [address] [id number] [place] [address]- 1516 Apr, [facility] [place] [facility] [address] [id number] [place] [address] Apr, [facility] [place] [facility] [address] [id number] [place] [address]- 7666 Apr, [facility] [place] [facility] [address] [id number] [place] [address]- 8578 Apr, [facility] [place] [facility] [address] [id number] [place] [address]- 5900 Apr, [facility] [place] [facility] [address] [id number] [place] [address]- 7445 Apr, [facility] [place] [facility] [address] [id number] [place] [address]- 3795 Apr, [facility] [place] [facility] [address] [id number] [place] [address]- 4118 Apr, [facility] [place] [facility] [address] [id number], [place] [address] 6[address] Apr, [facility] [place] [facility] [address] [id number], [place] [address] 96[address] Mar, [facility] [place] [facility] [address] [id number], [place] [address] Mar, [facility] [place] [facility] [address] [id number] [place] [address]- 2334 Feb, [facility] [place] [facility] [address] [id number], [place] [address] 29[address] Jan, [facility] [place] [facility] [address] [id number] [place] [address] 2548 Jan, [facility] [place] [facility] [address] [id number] [place] [address]- 0655 Jan, [facility] [address] [id number] [place] [address]- 7943 Jan, [facility] [address] [id number] [place] [address]- 6650 Dec, [facility] [address] [id number] [place] [address]- 0827 Dec, [facility] [place] [facility] [address] [id number] [place] [address]- 0006 Dec, [facility] [address] [id number] [place] [address]- 1222 Dec, [facility] [address] [id number] [place] [address]- 9178 Dec, [facility] [address] [id number] [place] [address]- 5136 Dec, [facility] [address] [id number] [place] [address]- 1681 Dec, [facility] [address] [id number] [place] [address]- 7835 November, [facility] [address] [id number] [place] [address]- 6588 November, [facility] [address] [id number] [place] [address]- 8840 November, [facility] [place] [facility] [address] [id number] [place] [address]- 5405 Oct, [facility] [place] [facility] [address] [id number] [place] [address]- 4723 Oct, [facility] [place] [facility] [address] [id number] [place] [address]- 2585 Oct, [facility] [place] [facility] [address] [id number] [place] [address]- 7866 Oct, [facility] [place] [facility] [address] [id number] [place] [address]- 6221 Oct, [facility] [place] [facility] [address] [id number] [place] [address]- 0884 26 Sep, 2012 [facility] [place] [facility] [address] [id number] [place] [address]- 0233 Sep, [facility] [place] [facility] [address] [id number] [place] [address]- 4656 Sep, [facility] [place] [facility] [address] [id number] [place] [address]- 5476 Sep, [facility] [place] [facility] [address] [id number] [place] [address]- 5179 Aug, [facility] [place] [facility] [address] [id number] [place] [address]- 8707 Aug, [facility] [place] [facility] [address] [id number] [place] [address]- 9877 Aug, [facility] [place] [facility] [address] [id number] [place] [address]- 0369 Aug, [facility] [place] [facility] [address] [id number] [place] [address]- 1690 Jul, [facility] [place] [facility] [address] [id number] [place] [address]- 7656 Jul, [facility] [place] [facility] [address] [id number] [place] [address]- 6254 Jun, [facility] [place] [facility] [address] [id number] [place] [address]- 4905 Jun, [facility] [place] [facility] [address] [id number] [place] [address]- 1146 Jun, [facility] [place] [facility] [address] [facility] [id number] [place] [address]- 1393 Jun, [facility] [place] [facility] [address] [id number], [place] [address]- 6729 May, [facility] [place] [facility] [address] [id number] [place] [address]- 1611 May, [facility] [place] [facility] [address] [id number] [place] [address]- 8462 May, [facility] [place] [facility] [address] [facility] [id number] [place] [address]- 3296 May, [facility] [place] [facility] [address] [id number] [place] [address]- 1479 Apr, [facility] [place] [facility] [address] [id number] [place] [address]- 8961 Apr, [facility] [place] [facility] [address] [id number] [place] [address]- 6362 Apr, [facility] [place] [facility] [address] [facility] [id number] [place] [address]- 5218 Apr, [facility] [place] [facility] [address] [facility] [id number] [place] [address]- 1148 Apr, [facility] [place] [facility] [address] [facility] [id number] [place] [address]- 2040 Apr, [facility] [place] [facility] [address] [facility] [id number] [place] [address]- 3952 Apr, [facility] [place] [facility] [address] [facility] [id number], [place] [address]- 5774 Apr, [facility] [place] [facility] [address] [facility] [id number], [place] [address]- 6637 Apr, [facility] [place] [facility] [address] [id number] [place] [address]- 4023 Apr, [facility] [place] [facility] [address] [facility] [id number], [place] [address]- 0410 Feb, [facility] [place] [facility] [address] [facility] [id number] [place] [address]- 4875 Feb, [facility] [place] [facility] [address] [id number] [place] [address]- 2546 Jan, [facility] [place] [facility] [address] [id number] [place] [address]- 3666 Jan, [facility] [place] [facility] [address] [id number] [place] [address]- 2546 Jan, [facility] [place] [facility] [address] [id number] [place] [address]- 2336 Jan, [facility] [place] [facility] [address] [id number] [place] [address]- 2546 Jan, [facility] [place] [facility] [address] [id number] [place] [address]- 1576 Jan, [facility] [place] [facility] [address] [id number] [place] [address]- 3346 Dec, [facility] [place] [facility] [address] [id number] [place] [address]- 6213 November, [facility] [place] [facility] [address] [id number] [place] [address]- 4091 November, [facility] [place] [facility] [address] [id number] [place] [address]- 2849 November, [facility] [place] [facility] [address] [id number] [place] [address]- 2481 Sep, [facility] [place] [facility] [address] [id number] [place] [address]- 1852 Sep, [facility] [place] [facility] [address] [id number] [place] [address]- 2546 Sep, [facility] [place] [facility] [address] [id number] [place] [address]- 2546 Sep, [facility] [place] [facility] [address] [id number] [place] [address]- 2546 Sep, [facility] [place] [facility] [address] [id number] [place] [address]- 3603 Sep, [facility] [place] [facility] [address] [id number] [place] [address]- 3171 Aug, [facility] [place] [facility] [address] [id number] [place] [address]- 6636 Aug, [facility] [place] [facility] [address] [facility] [id number] [place] [address]- 1856 Aug, [facility] [place] [facility] [address] [id number] [place] [address]- 5597 Jul, [facility] [place] [facility] [address] [id number] [place] [address]- 1174 Jul, [facility] [place] [facility] [address] [id number] [place] [address]- 6216 Jul, [facility] [place] [facility] [address] [id number] [place] [address]- 4738 Jul, [facility] [place] [facility] [address] [id number] [place] [address]- 4912 Jun, [facility] [place] [facility] [address] [id number] [place] [address]- 2774 Jun, [facility] [place] [facility] [address] [id number] [place] [address]- 3947 Jun, [facility] [place] [facility] [address] [id number] [place] [address]- 5869 Jun, [facility] [place] [facility] [address] [id number] [place] [address]- 7951 Jun, [facility] [place] [facility] [address] [id number] [place] [address]- 2746 Jun, [facility] [place] [facility] [address] [id number] [place] [address]- 7470 May, [facility] [place] [facility] [address] [facility] [id number] [place] [address]- 9917 May, [facility] [place] [facility] [address] [id number] [place] [address]- 8481 May, [facility] [address] [id number] [place] [address]- 3506 Apr, [facility] [address] [id number] [place] [address] 2546 Jan, [facility] [address] [id number] [place] [address]- 7826 20 Jun, 2010 [facility] [address] [id number] [place] [address] 2546 20 Jun, 2010 [facility] [address] [id number] [place] [address]- 6256 15 Jun, 2010 [facility] [address] [id number] [place] [address]- 2546 15 Jun, 2010 [facility] [address] [id number] [place] [address]- 1496 15 Jun, 2010 [facility] [address] [id number] [place] [address]- 3425 13 Jun, 2010 [facility] [address] [id number] [place] [address]- 9688 Jun, [facility] [address] [id number] [place] [address]- 7527 Apr, [facility] [address] [id number] [place] [address] 2546 Feb, [facility] [address] [id number] [place] [address] 2545 15 Aug, 2009 [facility] [address] [id number] [place] [address]- 5846 18 Jul, 2009 [facility] [address] [id number] [place] [address] 2546 Jul, [facility] [address] [id number] [place] [address]- 2209 29 Jun, 2009 [facility] [place] [facility] [address] [id number], [place] [address]- 2945 Jun, [facility] [place] [facility] [address] [id number] [place] [address]- 3246 Jun, [facility] [place] [facility] [address] [facility] [id number], [place] [address]- 1508 Jun, [facility] [place] [facility] [address] [id number], [place] [address]- 8349 16 Jun, 2009 [facility] [place] [facility] [address] [id number], [place] [address]- 7142 Jun, [facility] [place] [facility] [address] [id number], [place] [address]- 9985 Jun, [facility] [place] [facility] [address] [facility] [id number], [place] [address]- 2917 30 May, 2009 [facility] [place] [facility] [address] [id number], [place] [address]- 7805 27 May, 2009 [facility] [place] [facility] [address] [facility] [id number], [place] [address]- 9419 23 May, 2009 [facility] [place] [facility] [address] [facility] [id number], [place] [address]- 8254 May, [facility] [place] [facility] [address] [facility] [id number], [place] [address]- 9110 18 May, 2009 [facility] [place] [facility] [address] [id number], [place] [address]- 2313 16 May, 2009 [facility] [place] [facility] [address] [facility] [id number], [place] [address]- 5575 03 May, 2009 [facility] [place] [facility] [address] [id number], [place] [address]- 3885 16 Apr, 2009 [facility] [place] [facility] [address] [facility] [id number], [place] [address]- 8024 12 Apr, 2009 [facility] [place] [facility] [address] [id number], [place] [address]- 2546 Jan, [facility] [address] [facility] [id number] [place] [address]- 2546 Oct, IMMUNIZATIONS No Known Immunizations SOCIAL HISTORY Never Assessed REASON FOR VISIT Hospital f/u, VC from June 24- 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-Ramila BRAN PLAN OF CARE Activity Details Follow Up 4 Weeks Reason:falling VITAL SIGNS Height 62 in 2017-07-06 Weight 186.7 lbs 2017-07-06 Temperature 97.8 degrees Fahrenheit 2017-07-06 Heart Rate 78 bpm 2017-07-06 Respiratory Rate 20 2017-07-06 BMI 34.14 kg/m2 2017-07-06 Blood pressure systolic 96 mmHg 2017-07-06 Blood pressure diastolic 62 mmHg 2017-07-06 MEDICATIONS Medication Instructions Dosage Frequency Start Date End Date Duration Status Crestor 10 MG Orally Once a day 1 tablet 24h Active Carvedilol 6.25 MG Orally 2 times a day 0.5 tablet 12h Active NovoLog Flexpen 100 UNIT/ML 5u after breakfast only Active BD Pen Needle Mini U/F 31G X 5 MM subcutaneously 4 times a day as directed 6h Dec, 30 days Active Betamethasone Dipropionate Aug 0.05 % Externally 2 times a day 1 application to affected area 12h Aug, Active Tramadol HCl 50 mg Orally 2 times a day 1 tablet as needed 12h Aug, Jun, 28 days Active Aspirin 81 MG Orally Once a day 1 tablet 24h Active Fish Oil Active Meclizine HCl 12.5 MG Orally twice a day 1 - 2 tablets as needed 12h Mar Not-Taking Trutest Blood Glucose Test Strip N/A subcutaneously 6 times a day. E11.40 test blood sugar Dec, Active Clopidogrel Bisulfate 75 MG Orally Once a day 1 tablet 24h 30 Active Levothyroxine Sodium 25 MCG Orally Once a day 1 tablet on an empty stomach in the morning 24h 30 Active Fenofibric Acid 135 MG Orally Once a day 1 capsule 24h Active Vitamin D-3 Active Citalopram Hydrobromide 20 mg Orally Once a day 1.5 tablets 24h 90 days Active Zontivity 2.08 MG Orally Once a day 1 tablet 24h Active Keflex 500 mg Orally 3 times a day 1 capsule 8h 12 Jun, 2017 07 days Active Fluconazole 150 MG Orally Once a day 1 tablet 24h 08 May, 2017 1 dose Active Tresiba FlexTouch 200 UNIT/ML Subcutaneous once a day Inject 217 units 24h 27 Jan, 2016 Active Fluticasone Propionate 50 MCG/ACT Nasally twice a day 1 spray in each nostril 12h Mar, Not-Taking RESULTS Name Result Date Reference Range A1C (IN HOUSE) 2017-07-06 A1C IN HOUSE 8.5 4.3 - 5.6 % Previous A1c 9.6 Lot [id number] Exp date 02/2019 PROCEDURES Procedure Date Ordered Result Body Site GLYCATED HEMOGLOBIN TEST Jul 06, 2017 [facility] VISIT ESTABLISHED PATIENT Jul 06, 2017 INSTRUCTIONS MEDICATIONS ADMINISTERED No Known Medications [...]
--- OUTSIDE RECORDS SUMMARY | 2018-11-09 13:29 | XMS REPORT ---
Author Author PRABHA HILL [facility] Address [address] [place] [address] Care Team Providers Care Child Care Teacher Name Role Phone PRABHA HILL Unavailable PROBLEMS Type Condition ICD9-CM Code NIJ64-TY Code Onset Dates Condition Status SNOMED Code Problem Hypernatremia E87.0 Active 44770671 Problem Hallucinations R44.3 Active 4681218 Problem Hypoglycemia E16.2 Active 695506322 Problem Anxiety F41.9 Active 80668601 Problem Dementia in other diseases classified elsewhere without behavioral disturbance F02.80 Active 800651493 Problem Neurogenic orthostatic hypotension G90.3 Active 535814521 Problem Dementia with Lewy bodies G31.83 Active 570751087 Problem 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 pectoris I25.10 Active [id number] Problem Parkinsons disease G20 Active 09366917 Problem Unsteady gait R26.81 Active 02454328 Problem Mixed stress and urge urinary incontinence N39.46 Active 328457919 Problem Episodic cluster headache, not intractable G44.019 Active 243686306 Problem PVD (peripheral vascular disease) I73.9 Active 889604903 Problem Status post amputation of toe of left foot Z89.422 Active 223063276 Problem Dysuria R30.0 Active 15453917 Problem Type 2 diabetes mellitus with unspecified complications E11.8 Active 17037559 Problem Neuropathy G62.9 Active 941107955 Problem Polydipsia R63.1 Active 12467831 Problem Essential hypertension I10 Active 67381274 Problem Dysthymia F34.1 Active 91210582 Problem Hypothyroidism (acquired) E03.9 Active 541878580 Problem Hyperlipemia, mixed E78.2 Active 760084448 ALLERGIES No Information ENCOUNTERS Encounter Location Date Diagnosis [facility] [address] [facility] [id number] [address] 08 Dec, 2017 Left shoulder pain M25.512 [facility] [id number] [place] [address] 71318- 7889 Dec, Type 2 diabetes mellitus with unspecified complications E11.8 ; Anxiety F41.9 ; Therapeutic drug monitoring Z51.81 and Analgesic use Z79.899 [place] [id number] [place] [address] 14537- 2134 November, [place] [address] 26769- 0548 November, [facility] [address] 81081- 4541 November, Left shoulder pain M25.512 [place] [address] 23426- 4478 Oct, [facility] WALK [facility] [id number] [place] [address] 82928 -8803 Oct, [facility] [address] 08882- 2072 Oct, Parkinsons disease G20 [facility] WALK IN [facility] [address] 37397 -1112 Oct, Acute cystitis without hematuria N30.00 and Viral upper respiratory tract infection J06.9 [place] [id number] [place] [address] 72595- 3015 Oct, [facility] [address] 15588- 8105 Oct, Type 2 diabetes mellitus with unspecified complications E11.8 [place] [address] 06272- 6820 Oct, Left shoulder pain M25.512 [facility] [id number] [place] [address] 53876- 8106 Oct, Type 2 diabetes mellitus with unspecified complications E11.8 ; Dysuria R30.0 and Neurogenic orthostatic hypotension G90.3 [place] [address] 23679- 5414 Sep, Left shoulder pain M25.512 [place] [address] 73324- 8256 Sep, Medicare annual wellness visit, initial Z00.00 ; Parkinsons disease G20 ; Type 2 diabetes mellitus with unspecified complications E11.8 ; Essential hypertension I10 ; 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 pectoris I25.10 ; Hypothyroidism (acquired ) E03.9 ; PVD (peripheral vascular disease) I73.9 ; Dysthymia F34.1 ; Hyperlipemia, mixed E78.2 ; Neuropathy G62.9 ; Encounter for immunization Z23 ; Encounter for other screening for malignant neoplasm of breast Z12.39 and Mixed stress and urge urinary incontinence N39.[address] 14909- 3718 25 Aug, 2017 Parkinsons disease G20 [address] 02924- 9095 Aug, Type 2 diabetes mellitus with unspecified complications E11.8 ; Left shoulder pain M25.512 and Hypotensive episode I95.[address] 62842- 1006 09 Aug, 2017 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 pectoris I25.[address] 27491- 2300 07 Aug, 2017 Type 2 diabetes mellitus with unspecified complications E11.[address] 44391- 4612 Jul, Callus of foot L84 [address] 95217- 1399 Jul, [address] 80187- 9033 Jul, Callus of foot L84 ; Episodic cluster headache, not intractable G44.019 ; Type 2 diabetes mellitus with unspecified complications E11.8 and Parkinsons disease G20 [place] [id number] [place] [address] 92153- 6487 Jul, [place] [address] 32743- 4358 Jul, [place] [address] 74147- 9858 Jun, Type 2 diabetes mellitus with unspecified complications E11.8 ; Unsteady gait R26.81 ; Forgetfulness R68.89 and Hallucinations R44.3 [place] [address] 80169- 5469 Jun, [place] [address] 04126- 8591 Jun, Left shoulder pain M25.512 [place] [address] 29384- 5489 13 May, 2017 Hypernatremia E87.0 and Polydipsia R63.1 [place] [address] 47869- 1291 08 May, 2017 Hypernatremia E87.0 and Polydipsia R63.1 [place] [address] 29119- 7467 May, Hypoglycemia E16.2 ; Dysuria R30.0 ; Unsteadiness on feet R26.81 ; Forgetfulness R68.89 ; Type 2 diabetes mellitus with unspecified complications E11.8 and Yeast infection involving the vagina and surrounding area B37.3 [place] [address] 82046- 4106 May, Acute cystitis without hematuria N30.00 [facility] WALK IN [facility] [address] 80[address] -8813 Apr, Dysuria R30.0 and Acute cystitis without hematuria N30.00 [place] [id number] [place] [address] 37440- 8145 05 Apr, 2017 Hypernatremia E87.0 and Polydipsia R63.1 [place] [address] 55783- 6649 02 Apr, 2017 Vertigo R42 and Type 2 diabetes mellitus with unspecified complications E11.8 [place] [address] 95210- 1091 20 Mar, 2017 [place] [address] 73371- 9000 19 Mar, 2017 Left shoulder pain M25.512 [place] [address] 64447- 5975 13 Mar, 2017 Vertigo R42 [place] [address] 88060- 7215 12 Mar, 2017 Polydipsia R63.1 [place] [address] 36017- 4886 12 Mar, 2017 Polydipsia R63.1 [place] [address] 80528- 2004 11 Mar, 2017 Vertigo R42 [place] [address] 23858- 7805 07 Mar, 2017 Type 2 diabetes mellitus with unspecified complications E11.8 ; Vertigo R42 ; Polydipsia R63.1 ; Polyuria R35.8 ; Hypothyroidism ( acquired) E03.9 ; Abnormal urinalysis R82.90 and Dysthymia F34.1 [place] [id number] [place] [address] 05638- 5617 05 Mar, 2017 Coronary artery disease of ekwok artery with stable angina pectoris, unspecified whether ekwok or transplanted heart I25.118 ; Systolic CHF, chronic I50.22 ; Hyperlipemia, mixed E78.2 and Essential hypertension I10 [facility] [address] [id number] Feb, Dental caries K02.9 [facility] [address] [place] [address] 94015- 6681 Feb, Type 2 diabetes mellitus with diabetic neuropathy, unspecified E11.40 [facility] [id number] [place] [address] 75502- 4956 23 Dec, 2016 Left shoulder pain M25.512 [facility] [id number] [place] [address] 06162- 7293 Dec, [facility] [id number] [place] [address] 74377- 1581 Dec, Type 2 diabetes mellitus with unspecified complications E11.8 [facility] [id number] [place] [address] [id number] Dec, Dental examination Z01.20 [facility] [id number] [place] [address] 66594- 3024 Dec, Type 2 diabetes mellitus with diabetic neuropathy, unspecified E11.40 [facility] [address] [place] [address] 56762- 6658 Dec, [facility] [id number] [place] [address] 08870- 7730 Dec, Type 2 diabetes mellitus with diabetic neuropathy, unspecified E11.40 [facility] [address] [address] 1853 November, Left shoulder pain M25.512 [facility] [address] [address]- 5657 November, [facility] [id number] [place] [address] 70267- 6082 November, Type 2 diabetes mellitus with unspecified complications E11.8 and Dysuria R30.0 [facility] [address] [place] [address] 66501- 7969 Oct, Left shoulder pain M25.512 [facility] [id number] [place] [address] 23318- 2476 Sep, Left shoulder pain M25.512 [place] [address] 03879- 6778 Sep, Pre-op testing Z01.818 [place] [address] 96341- 8513 Sep, Pre-op testing Z01.818 [place] [address] 13900- 8309 Sep, Pre-op testing Z01.818 [place] [address] 53124- 0025 Sep, Pre-op testing Z01.818 and Mouth pain K13.79 [place] [address] 07059- 2472 Sep, Left shoulder pain M25.512 [place] [id number] [place] [address] 27458- 7184 Aug, Other eczema L30.8 [place] [address] 74366- 1411 06 Aug, 2016 PVD (peripheral vascular disease) I73.9 ; Type 2 diabetes mellitus with unspecified complications E11.8 ; Acute cystitis with hematuria N30.01 ; Other eczema L30.8 ; Dysuria R30.0 and Left shoulder pain M25.512 [facility]ALK [facility] [id number] [place] [address] 60691 -9316 Jul, Otalgia of right ear H92.01 and Blood in ear canal, right H92.21 [place] [address] 72102- 5351 Jul, Arthralgia, unspecified joint M25.50 ; PVD (peripheral vascular disease) I73.9 and Neuropathy G62.9 [place] [address] 42673- 7603 Jul, [facility] [id number] [place] [address] 12712- 6695 Jun, Medicare annual wellness visit, initial Z00.00 ; Cervicalgia M54.2 ; Radiculopathy of cervical region M54.12 ; Encounter for immunization Z23 ; Type 2 diabetes mellitus with unspecified complications E11.8 and Essential hypertension I10 [place] [address] 25000- 1231 Jun, [place] [address] 10896- 2975 May, Hypothyroidism (acquired) E03.9 [place] [id number] [place] [address] 34712- 0767 May, Dysuria R30.0 ; Essential hypertension I10 ; Hypothyroidism (acquired) E03.9 and PVD (peripheral vascular disease) I73.9 [facility] [id number] [place] [address] 09034 -5500 May, Burning with urination R30.0 and Acute cystitis with hematuria N30.01 [place] [id number] [place] [address] 31378- 4145 May, Dental examination Z01.20 [place] [id number] [place] [address] 74463- 6682 May, Hypothyroidism (acquired) E03.9 [place] [id number] [place] [address] 56266- 3729 Feb, [facility] [address] 45058- 9876 Feb, Status post amputation of toe of left foot Z89.422 ; PVD ( peripheral vascular disease) I73.9 ; Type 2 diabetes mellitus with unspecified complications E11.8 and Essential hypertension I10 [facility] [id number] [place] [address] 58442- 5720 Jan, [place] [address] [address]- 7145 Jan, Hypothyroidism (acquired) E03.9 [place] [id number] [place] [address] 72771- 6031 Jan, [place] [id number] [place] [address] 05486- 6417 Jan, [place] [id number] [place] [address] 88537- 5322 Jan, Type 2 diabetes mellitus with unspecified complications E11.8 ; Status post amputation of toe of left foot Z89.422 and Essential ( primary) hypertension I10 [place] [id number] [place] [address] 81571- 3196 Jan, Type 2 diabetes mellitus with unspecified complications E11.8 ; Status post amputation of toe of left foot Z89.422 ; Essential hypertension I10 and PVD (peripheral vascular disease) I73.9 [place] [address] [place] [address] 31522- 3329 Jan, [place] [id number] [place] [address] 22870- 8519 Jan, [place] [address] [place] [address] 36975- 9818 Jan, [place] [address] [place] [address] 48459- 0138 Jan, Weakness R53.1 ; Fatigue, unspecified type R53.83 ; PVD ( peripheral vascular disease) I73.9 ; Acute osteomyelitis of other site M86.18 ; Type 2 diabetes mellitus with diabetic neuropathy, unspecified E11.40 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 [place] [address] [address]- 4572 Dec, [place] [id number] [place] [address] 50706- 9337 Dec, Type 2 diabetes mellitus with unspecified complications E11.8 [place] [id number] [place] [address] 88735- 5405 Dec, [place] [id number] [place] [address] 34811- 6327 Dec, Pressure ulcer, unspecified pressure ulcer stage L89.90 and Type 2 diabetes mellitus with unspecified complications E11.8 [facility] WALK IN [facility] [id number] [place] [address] 15006 -5246 Dec, Toe infection L08.9 [place] [id number] [place] [address] 85840- 1301 November, Dental caries K02.9 [place] [address] 24650- 8303 November, [place] [id number] [place] [address] 19399- 5490 November, Dental examination Z01.20 [place] [id number] [place] [address] 54129- 6666 Sep, Lipoma of torso D17.1 and Thoracic neuritis M54.14 [place] [id number] [place] [address] 03468- 2770 Sep, [place] [id number] [place] [address] 93576- 7317 Aug, [facility] [address] [place] [address] 95512 -1011 Jul, Dysuria R30.0 and UTI (urinary tract infection) N39.0 [place] [address] 61278- 2923 Jun, Left shoulder pain M25.512 [place] [id number] [place] [address] 43625- 2296 May, Shoulder pain, left M25.512 [place] [address] [place] [address]- 7224 May, [facility] [id number] [place] [address] 44434- 2217 May, [facility] [id number] [place] [address] 36544- 6878 May, Left shoulder pain M25.512 [place] [address] 16041- 6724 May, [facility] [id number] [place] [address] 22965- 8751 Apr, Encounter for immunization Z23 [place] [address] 18673- 5225 Apr, Urinary tract infection, site not specified N39.0 ; Hypotension, unspecified I95.9 ; Type 2 diabetes mellitus with unspecified complications E11.8 and Generalized edema R60.1 [place] [address] 69026- 4576 Apr, [facility] [id number] [place] [address] 77703- 4281 Mar, Diabetes with other specified manifestations, type II or unspecified type, not stated as uncontrolled 250.80 [place] [id number] [place] [address] 47485- 4178 Feb, Gout 274.9 and Diabetes 250.00 [place] [id number] [place] [address] 75044- 1577 Jan, [facility] [id number] [place] [address] 83074- 0884 November, CAD (coronary artery disease) 414.00 and CHF (congestive heart failure) 428.0 [place] [id number] [place] [address] 05024- 5272 Oct, [place] [address] 31281- 6377 Oct, [facility] [place] [facility] [address] [id number] [place] [address]- 7761 Oct, [facility] [place] [facility] [address] [id number] [place] [address]- 1140 Sep, [facility] [place] [facility] [address] [id number] [place] [address]- 8276 Sep, [facility] [place] [facility] [address] [id number] [place] [address]- 6492 Sep, [facility] [place] [facility] [address] [id number] [place] [address]- 9137 Sep, [facility] [place] [facility] [address] [id number] [place] [address]- 6168 Aug, [facility] [place] [facility] [address] [facility] [id number] [place] [address]- 2168 Aug, [facility] [place] [facility] [address] [facility] [id number] [place] [address]- 7010 Aug, 2014 [facility] [place] [facility] [address] [id number] [place] [address]- 4898 Aug, 2014 [facility] [place] [facility] [address] [facility] [id number] [place] [address]- 3504 Aug, 2014 [facility] [place] [facility] [address] [facility] [id number] [place] [address]- 0162 Aug, 2014 [facility] [place] [facility] [address] [id number] [address]- 9955 Aug, [facility] [place] [facility] [address] [id number] [place] [address]- 8355 Aug, [facility] [place] [facility] [address] [facility] [id number] [place] [address]- 9787 Jul, [facility] [place] [facility] [address] [facility] [id number] [place] [address]- 5037 Jul, [facility] [place] [facility] [address] [facility] [id number] [place] [address]- 3525 Jul, [facility] [address] [id number] [place] [address]- 7799 Jul, [facility] [address] [id number] [place] [address]- 6899 Jul, [facility] [address] [id number] [place] [address]- 5530 Jul, [facility] [address] [id number] [place] [address]- 6531 Jul, [facility] [address] [id number] [place] [address]- 3215 Jul, [facility] [address] [id number] [place] [address]- 4926 Jul, [facility] [address] [id number] [place] [address]- 6701 Jul, [facility] [address] [id number] [place] [address]- 2310 Jun, [facility] [address] [id number] [place] [address]- 4338 Jun, [facility] [address] [id number] [place] [address]- 9588 Jun, [facility] [address] [id number] [place] [address]- 7177 Jun, [facility] [address] [id number] [place] [address]- 8980 Jun, [facility] [place] [facility] [address] [id number] [place] [address]- 6252 Jun, [facility] [place] [facility] [address] [id number] [place] [address]- 0208 Jun, [facility] [address] [id number] [place] [address]- 8250 Jun, [facility] [place] [facility] [address] [id number] [place] [address]- 6964 Jun, [facility] [place] [facility] [address] [id number] [place] [address]- 4963 Jun, [facility] [place] [facility] [address] [id number] [place] [address]- 7543 May, [facility] [place] [facility] [address] [id number] [place] [address]- 1288 May, [facility] [place] [facility] [address] [id number] [place] [address]- 5860 Mar, [facility] [place] [facility] [address] [id number] [place] [address]- 5232 Mar, [facility] [place] [facility] [address] [id number] [place] [address]- 1173 Mar, [facility] [place] [facility] [address] [id number] [place] [address]- 4243 Mar, [facility] [place] [facility] [address] [id number] [place] [address]- 0843 Feb, [facility] [place] [facility] [address] [id number] [place] [address]- 3576 Feb, [facility] [place] [facility] [address] [id number] [place] [address]- 1924 Feb, [facility] [place] [facility] [address] [id number] [place] [address]- 6606 Jan, [facility] [place] [facility] [address] [id number] [place] [address]- 8888 Jan, [facility] [place] [facility] [address] [id number] [place] [address]- 7106 Jan, [facility] [place] [facility] [address] [id number] [place] [address]- 6606 Jan, [facility] [place] [facility] [address] [id number] [place] [address]- 2448 Jan, [facility] [place] [facility] [address] [id number] [place] [address]- 8990 Jan, [facility] [place] [facility] [address] [id number] [place] 4430 Jan, [facility] [place] [facility] [address] [id number] [place] [address]- 8958 Jan, [facility] [place] [facility] [address] [id number] [place] [address]- 0542 Jan, [facility] [place] [facility] [address] [id number] [place] [address]- 8569 Jan, [facility] [place] [facility] [address] [id number] [place] [address]- 5044 Dec, [facility] [place] [facility] [address] [id number] [place] [address]- 7738 Dec, [facility] [place] [facility] [address] [id number] [place] [address] November, [facility] [place] [facility] [address] [id number] [place] [address] November, [facility] [place] [facility] [address] [id number] [place] [address] November, [facility] [place] [facility] [address] [id number] [place] [address] November, [facility] [place] [facility] [address] [id number] [place] [address] November, [facility] [place] [facility] [address] [id number] [place] [address] November, [facility] [place] [facility] [address] [id number] [place] [address] November, [facility] [place] [facility] [address] [id number] [place] [address] Oct, [facility] [place] [facility] [address] [id number] [place] [address] Oct, [facility] [place] [facility] [address] [id number] [place] [address] Sep, [facility] [place] [facility] [address] [id number] [place] [address] Sep, [facility] [place] [facility] [address] [id number] [place] [address] Sep, [facility] [place] [facility] [address] [id number] [place] [address] Sep, [facility] [place] [facility] [address] [id number] [place] [address] Sep, [facility] [place] [facility] [address] [id number] [place] [address] Sep, [facility] [place] [facility] [address] [id number] [place] [address] Sep, [facility] [place] [facility] [address] [id number] [place] [address] Sep, [facility] [place] [facility] [address] [id number] [place] [address] Sep, [facility] [place] [facility] [address] [id number] [place] [address] Sep, [facility] [facility] [address] [id number] [place] [address] Aug, [facility] [place] [facility] [address] [id number] [place] [address] Aug, [facility] [place] [facility] [address] [id number] [place] [address]88 Jul, [facility] [place] [facility] [address] [id number] [place] [address]16 14 Jul, 2013 [facility] [place] [facility] [address] [id number] [place] [address] Jul, [facility] [place] [facility] [address] [id number] [place] [address]- 2594 Jul, [facility] [place] [facility] [address] [id number] [place] [address] Jul, [facility] [place] [facility] [address] [facility] [id number] [place] [address] Jul, [facility] [place] [facility] [address] [id number] [place] [address] 78[address] Jun, [facility] [place] [facility] [address] [id number] [place] [address]- 2880 Jun, [facility] [place] [facility] [address] [id number] [place] [address]- 5786 Jun, [facility] [place] [facility] [address] [id number] [place] [address]- [address]444 Jun, [facility] [place] [facility] [address] [id number], [place] [address] May, [facility] [place] [facility] [address] [id number] [place] [address]- 1101 May, [facility] [place] [facility] [address] [id number], [place] [address] May, [facility] [place] [facility] [address] [id number], [place] [address] 30[address] May, [facility] [place] [facility] [address] [id number], [place] [address] 06[address] May, [facility] [place] [facility] [address] [id number], [place] [address]- 5[address] Apr, [facility] [place] [facility] [address] [id number][place] [address]- 8753 Apr, [facility] [place] [facility] [address] [id number], [place] [address] 6[address] Apr, [facility] [place] [facility] [address] [id number] [place] [address]- 1806 Apr, [facility] [place] [facility] [address] [id number] [place] [address]- 1785 Apr, [facility] [place] [facility] [address] [id number] [place] [address]- 4344 Apr, [facility] [place] [facility] [address] [id number] [place] [address]- 6947 Apr, [facility] [place] [facility] [address] [id number] [place] [address]- 9571 Apr, [facility] [place] [facility] [address] [id number] [place] [address]- 4738 Apr, [facility] [place] [facility] [address] [id number] [place] [address]- 2081 Apr, [facility] [place] [facility] [address] [id number] [place] [address]- 7593 Apr, [facility] [place] [facility] [address] [id number] [place] [address]- 8325 Apr, [facility] [place] [facility] [address] [id number] [place] [address]- 9582 Mar, [facility] [place] [facility] [address] [id number] [place] [address]- 2691 Mar, [facility] [place] [facility] [address] [id number] [place] [address] 254 Feb, [facility] [facility] [address] [id number] [place] [address]- 2542 Jan, [facility] [address] [id number] [place] [address]- 9356 Jan, [facility] [facility] [address] [id number] [place] [address]- 2546 Jan, [facility] [address] [id number] [place] [address]- 2546 Jan, [facility] [address] [id number] [place] [address]- 1604 Dec, [facility] [address] [id number] [place] [address]- 6020 Dec, [facility] [address] [id number] [place] [address]- 5707 Dec, [facility] [address] [id number] [place] [address]- 8303 Dec, [facility] [address] [id number] [place] [address]- 8102 Dec, [facility] [address] [id number] [place] [address]- 6204 Dec, [facility] [address] [id number] [place] [address]- 7060 Dec, [facility] [address] [id number] [place] [address]- 0266 November, [facility] [address] [id number] [place] [address]- 6181 November, [facility] [address] [id number] [place] [address]- 5852 November, [facility] [address] [id number] [place] [address]- 3764 Oct, [facility] [address] [id number] [place] [address]- 0778 Oct, [facility] [address] [id number] [place] [address]- 3764 Oct, [facility] [address] [id number] [place] [address]- 1714 Oct, [facility] [address] [id number] [place] [address]- 1799 Oct, [facility] [address] [id number] [place] [address]- 2546 26 Sep, 2012 [facility] [address] [id number] [place] [address]- 3480 Sep, [facility] [address] [id number] [place] [address]- 4976 13 Sep, 2012 [facility] [address] [facility] [id number] [place] [address]- 1786 Sep, [facility] [address] [id number] [place] [address]- 5845 Aug, [facility] [address] [id number] [place] [address]- 3806 Aug, [facility] [address] [facility] [id number] [place] [address]- 0676 Aug, [facility] [address] [facility] [id number] [place] [address]- 6374 Aug, [facility] [address] [facility] [id number] [place] [address]- 8963 Jul, [facility] [address] [facility] [id number] [place] [address]- 0721 Jul, [facility] [address] [facility] [id number] [place] [address]- 4542 Jun, [facility] [address] [facility] [id number] [place] [address]- 7671 Jun, [facility] [address] [id number] [place] [address]- 2544 Jun, [facility] [address] [id number] [place] [address]- 7995 Jun, [facility] [address] [facility] [id number] [place] [address]- 8817 May, [facility] [address] [facility] [id number] [place] [address]- 9157 May, [facility] [address] [id number] [place] [address]- 1598 May, [facility] [address] [id number] [place] [address]- 4140 May, [facility] [address] [id number] [place] [address] Apr, [facility] [address] [id number] [place] [address]- 3888 Apr, [facility] [address] [id number] [place] [address]- 3623 Apr, [facility] [address] [id number] [place] [address]- 2401 Apr, [facility] [address] [id number] [place] [address]- 3289 Apr, [facility] [address] [id number] [place] [address]- 8948 Apr, [facility] [address] [id number] [place] [address]- 7898 Apr, [facility] [address] [id number] [place] [address]- 8443 Apr, [facility] [address] [id number] [place] [address]- 9665 Apr, [facility] [address] [id number] [place] [address]471 Apr, [facility] [address] [id number] [place] [address]- 7529 Feb, [facility] [address] [id number] [place] [address]- 9386 Feb, [facility] [address] [id number] [place] [address] 2543 Jan, [facility] [address] [id number] [place] [address]- 5426 Jan, [facility] [address] [id number] [place] [address]- 6004 Jan, [facility] [address] [id number] [place] [address]- 2113 Jan, [facility] [address] [id number] [place] [address]- 9057 Jan, [facility] [address] [id number] [place] [address]- 1638 Jan, [facility] [address] [id number] [place] [address]- 9283 Dec, [facility] [address] [id number] [place] [address]- 8844 November, [facility] [address] [id number] [place] [address]- 4454 November, [facility] [address] [id number] [place] [address]- 5654 November, [facility] [address] [id number] [place] [address]- 6823 Sep, [facility] [address] [id number] [place] [address]- 7402 Sep, [facility] [address] [id number] [place] [address]- 3277 Sep, [facility] [address] [id number], [place] [address]- 9203 Sep, [facility] [address] [id number] [place] [address]- 0147 Sep, [facility] [address] [id number] [place] [address]- 6183 Sep, [facility] [address] [id number] [place] [address]- 9369 Aug, [facility] [address] [id number] [place] [address]- 4253 10 Aug, 2011 [facility] [address] [id number] [place] [address]- 1399 Aug, [facility] [address] [id number] [place] [address]- 6076 Jul, [facility] [address] [id number] [place] [address]- 1167 Jul, [facility] [address] [id number] [place] [address]- 3028 Jul, [facility] [address] [id number] [place] [address]- 3818 Jul, [facility] [address] [facility] [id number] [place] [address]- 6650 Jun, [facility] [address] [facility] [id number] [place] [address]- 6248 Jun, [facility] [address] [id number] [place] [address]- 9419 Jun, [facility] [address] [facility] [id number] [place] [address]- 8928 Jun, [facility] [address] [facility] [id number] [place] [address]- 3687 Jun, [facility] [address] [id number] [place] [address]- 0045 Jun, [facility] [address] [id number] [place] [address]- 9668 May, [facility] [address] [id number] [place] [address]- 3191 May, [facility] [address] [facility] [id number] [place] [address]- 6896 May, [facility] [address] [facility] [id number] [place] [address]- 6834 Apr, [facility] [address] [id number] [place] [address]- 5906 11 Jan, 2011 [facility] [address] [id number] [place] [address]- 5036 20 Jun, 2010 [facility] [facility] [address] [id number] [place] [address]116 20 Jun, 2010 [facility] [address] [id number] [place] [address]- 0846 15 Jun, 2010 [facility] [address] [id number] [place] [address]- 5716 15 Jun, 2010 [facility] [address] [id number] [place] [address]- 9876 15 Jun, 2010 [facility] [address] [id number] [place] [address]- 5486 13 Jun, 2010 [facility] [address] [id number] [place] [address]- 8218 13 Jun, 2010 [facility] [address] [id number] [place] [address]- 9997 Apr, [facility] [address] [id number], [place] [address]- 5137 Feb, [facility] [address] [id number] [place] [address]- 9083 15 Aug, 2009 [facility] [address] [id number], [place] [address]- 4826 Jul, [facility] [address] [id number] [place] [address]- 9683 Jul, [facility] [address] [id number], [place] [address]- 9816 29 Jun, 2009 [facility] [address] [id number] [place] [address]- 3553 28 Jun, 2009 [facility] [address] [id number], [place] [address]- 4491 28 Jun, 2009 [facility] [address] [facility] [id number], [place] [address]- 7306 Jun, [facility] [address] [id number], [place] [address]- 9346 16 Jun, 2009 [facility] [id number], [place] [address]- 0156 Jun, [facility] [address] [facility] [id number], [place] [address]- 4800 Jun, [facility] [id number] [place] [address]- 0056 30 May, 2009 [facility] [address] [id number], [place] [address]- 1594 27 May, 2009 [facility] [id number] [place] [address]- 9189 23 May, 2009 [facility] [id number], [place] [address]- 2980 May, [facility] [id number], [place] [address]- 2770 May, [facility] [id number], [place] [address]- 1515 16 May, 2009 [facility] [id number], [place] [address]- 2037 May, [facility] [address] [id number], [place] [address]- 5285 Apr, [facility] [address] [id number], [place] [address]- 9719 Apr, [facility] [address] [id number] [address] Jan, [facility] [id number] 9351 16 Oct, 2008 IMMUNIZATIONS No Known Immunizations SOCIAL HISTORY Never Assessed REASON FOR VISIT Follow up needed PLAN OF CARE VITAL SIGNS MEDICATIONS Unknown [...]
--- OUTSIDE RECORDS SUMMARY | 2018-11-09 13:30 | XMS REPORT ---
Author Author PRABHA HILL [facility] Address [address] [place] [address] Care Team Providers Care Parking Attendant Name Role Phone PRABHA HILL Unavailable PROBLEMS Type Condition ICD9-CM Code UPZ90-NT Code Onset Dates Condition Status SNOMED Code Problem Hypernatremia E87.0 Active 86097656 Problem Hallucinations R44.3 Active 7077586 Problem Hypoglycemia E16.2 Active 849880680 Problem Anxiety F41.9 Active 93746393 Problem Dementia in other diseases classified elsewhere without behavioral disturbance F02.80 Active 613264924 Problem Neurogenic orthostatic hypotension G90.3 Active 171049121 Problem Dementia with Lewy bodies G31.83 Active 136203848 Problem Coronary artery disease involving [place] coronary artery of [place] heart without angina pectoris I25.10 Active 9998206302587 Problem Parkinsons disease G20 Active 52737821 Problem Unsteady gait R26.81 Active 89215099 Problem Mixed stress and urge urinary incontinence N39.46 Active 047270386 Problem Episodic cluster headache, not intractable G44.019 Active 043567377 Problem PVD (peripheral vascular disease) I73.9 Active 830814390 Problem Status post amputation of toe of left foot Z89.422 Active 384426372 Problem Dysuria R30.0 Active 70433140 Problem Type 2 diabetes mellitus with unspecified complications E11.8 Active 16074187 Problem Neuropathy G62.9 Active 450977459 Problem Polydipsia R63.1 Active 10119992 Problem Essential hypertension I10 Active 95084960 Problem Dysthymia F34.1 Active 40206328 Problem Hypothyroidism (acquired) E03.9 Active 053318601 Problem Hyperlipemia, mixed E78.2 Active 709329163 ALLERGIES No Information ENCOUNTERS Encounter Location Date Diagnosis [facility] [address] [facility] [id number] [address] 08 Dec, 2017 Left shoulder pain M25.512 [facility] [id number] [place] [address] 76003- 6586 Dec, Type 2 diabetes mellitus with unspecified complications E11.8 ; Anxiety F41.9 ; Therapeutic drug monitoring Z51.81 and Analgesic use Z79.899 [place] [id number] [place] [address] 71855- 1202 November, [place] [address] 56877- 7164 November, [facility] [address] 75291- 7528 November, Left shoulder pain M25.512 [place] [address] 58285- 3405 Oct, [facility] [id number] [place] [address] 10668 -3749 Oct, [facility] [address] 08211- 2136 Oct, Parkinsons disease G20 [facility] [address] 18736 -5281 Oct, Acute cystitis without hematuria N30.00 and Viral upper respiratory tract infection J06.9 [place] [id number] [place] [address] 90232- 1922 Oct, [facility] [address] 01228- 0746 Oct, Type 2 diabetes mellitus with unspecified complications E11.8 [place] [address] 97346- 0474 Oct, Left shoulder pain M25.512 [facility] [id number] [place] [address] 98036- 5428 Oct, Type 2 diabetes mellitus with unspecified complications E11.8 ; Dysuria R30.0 and Neurogenic orthostatic hypotension G90.3 [place] [address] 43928- 6573 Sep, Left shoulder pain M25.512 [place] [address] 86430- 2975 Sep, Medicare annual wellness visit, initial Z00.00 ; Parkinsons disease G20 ; Type 2 diabetes mellitus with unspecified complications E11.8 ; Essential hypertension I10 ; Coronary artery disease involving [place] coronary artery of [place] heart without angina pectoris I25.10 ; Hypothyroidism (acquired ) E03.9 ; PVD (peripheral vascular disease) I73.9 ; Dysthymia F34.1 ; Hyperlipemia, mixed E78.2 ; Neuropathy G62.9 ; Encounter for immunization Z23 ; Encounter for other screening for malignant neoplasm of breast Z12.39 and Mixed stress and urge urinary incontinence N39.[address] 7[address]12- 9788 25 Aug, 2017 Parkinsons disease G20 [address] 95795- 8772 Aug, Type 2 diabetes mellitus with unspecified complications E11.8 ; Left shoulder pain M25.512 and Hypotensive episode I95.[address] 06269- 0610 09 Aug, 2017 Coronary artery disease involving [place] coronary artery of [place] heart without angina pectoris I25.[address] 83932- 7571 07 Aug, 2017 Type 2 diabetes mellitus with unspecified complications E11.[address] 22748- 9735 Jul, Callus of foot L84 [address] 50071- 2470 Jul, [address] 42308- 9965 Jul, Callus of foot L84 ; Episodic cluster headache, not intractable G44.019 ; Type 2 diabetes mellitus with unspecified complications E11.8 and Parkinsons disease G20 [place] [id number] [place] [address] 67986- 8172 Jul, [place] [address] 93339- 1330 Jul, [place] [address] 01528- 4645 Jun, Type 2 diabetes mellitus with unspecified complications E11.8 ; Unsteady gait R26.81 ; Forgetfulness R68.89 and Hallucinations R44.3 [place] [address] 48523- 5248 Jun, [place] [address] 55028- 8804 Jun, Left shoulder pain M25.512 [place] [address] 06221- 1302 13 May, 2017 Hypernatremia E87.0 and Polydipsia R63.1 [place] [address] 93060- 0575 08 May, 2017 Hypernatremia E87.0 and Polydipsia R63.1 [place] [address] 28371- 0996 May, Hypoglycemia E16.2 ; Dysuria R30.0 ; Unsteadiness on feet R26.81 ; Forgetfulness R68.89 ; Type 2 diabetes mellitus with unspecified complications E11.8 and Yeast infection involving the vagina and surrounding area B37.3 [place] [address] 88591- 4239 May, Acute cystitis without hematuria N30.00 [facility] [address] 90101 -3259 Apr, Dysuria R30.0 and Acute cystitis without hematuria N30.00 [place] [id number] [place] [address] 41298- 4770 05 Apr, 2017 Hypernatremia E87.0 and Polydipsia R63.1 [place] [address] 22252- 7003 02 Apr, 2017 Vertigo R42 and Type 2 diabetes mellitus with unspecified complications E11.8 [place] [address] 75084- 0959 20 Mar, 2017 [place] [address] 32223- 5090 19 Mar, 2017 Left shoulder pain M25.512 [place] [address] 48481- 6249 13 Mar, 2017 Vertigo R42 [place] [address] 32237- 6833 12 Mar, 2017 Polydipsia R63.1 [place] [address] 42029- 2273 12 Mar, 2017 Polydipsia R63.1 [place] [address] 29627- 4544 11 Mar, 2017 Vertigo R42 [place] [address] 53319- 3768 07 Mar, 2017 Type 2 diabetes mellitus with unspecified complications E11.8 ; Vertigo R42 ; Polydipsia R63.1 ; Polyuria R35.8 ; Hypothyroidism ( acquired) E03.9 ; Abnormal urinalysis R82.90 and Dysthymia F34.1 [place] [id number] [place] [address] 64569- 4745 05 Mar, 2017 Coronary artery disease of [place] artery with stable angina pectoris, unspecified whether [place] or transplanted heart I25.118 ; Systolic CHF, chronic I50.22 ; Hyperlipemia, mixed E78.2 and Essential hypertension I10 [facility] [address] [id number] Feb, Dental caries K02.9 [facility] [address] [place] [address] 46962- 8911 Feb, Type 2 diabetes mellitus with diabetic neuropathy, unspecified E11.40 [facility] [id number] [place] [address] 87003- 2056 23 Dec, 2016 Left shoulder pain M25.512 [facility] [id number] [place] [address] 03074- 3949 Dec, [facility] [id number] [place] [address] 33146- 7483 Dec, Type 2 diabetes mellitus with unspecified complications E11.8 [facility] [id number] [place] [address] [id number] Dec, Dental examination Z01.20 [facility] [id number] [place] [address] 06236- 2985 Dec, Type 2 diabetes mellitus with diabetic neuropathy, unspecified E11.40 [facility] [address] [place] [address] 64978- 9465 Dec, [facility] [id number] [place] [address] 88200- 2600 Dec, Type 2 diabetes mellitus with diabetic neuropathy, unspecified E11.40 [facility] [address] [address] 0948 November, Left shoulder pain M25.512 [facility] [address] [address] 92[address] November, [facility] [id number] [place] [address] 26410- 4893 November, Type 2 diabetes mellitus with unspecified complications E11.8 and Dysuria R30.0 [facility] [address] [place] [address] 16288- 3448 Oct, Left shoulder pain M25.512 [facility] [id number] [place] [address] 86682- 6199 Sep, Left shoulder pain M25.512 [place] [address] 79489- 0493 Sep, Pre-op testing Z01.818 [place] [address] 36229- 8917 Sep, Pre-op testing Z01.818 [place] [address] 91156- 7917 Sep, Pre-op testing Z01.818 [place] [address] 75199- 3081 Sep, Pre-op testing Z01.818 and Mouth pain K13.79 [place] [address] 33236- 9467 Sep, Left shoulder pain M25.512 [place] [id number] [place] [address] 07435- 6629 Aug, Other eczema L30.8 [place] [address] 79290- 7611 06 Aug, 2016 PVD (peripheral vascular disease) I73.9 ; Type 2 diabetes mellitus with unspecified complications E11.8 ; Acute cystitis with hematuria N30.01 ; Other eczema L30.8 ; Dysuria R30.0 and Left shoulder pain M25.512 [facility] [id number] [place] [address] 00054 -6448 Jul, Otalgia of right ear H92.01 and Blood in ear canal, right H92.21 [place] [address] 04460- 8276 Jul, Arthralgia, unspecified joint M25.50 ; PVD (peripheral vascular disease) I73.9 and Neuropathy G62.9 [place] [address] 01266- 5222 Jul, [facility] [id number] [place] [address] 60151- 6191 Jun, Medicare annual wellness visit, initial Z00.00 ; Cervicalgia M54.2 ; Radiculopathy of cervical region M54.12 ; Encounter for immunization Z23 ; Type 2 diabetes mellitus with unspecified complications E11.8 and Essential hypertension I10 [place] [address] 27565- 3052 Jun, [place] [address] 87383- 0293 May, Hypothyroidism (acquired) E03.9 [place] [id number] [place] [address] 00845- 9505 May, Dysuria R30.0 ; Essential hypertension I10 ; Hypothyroidism (acquired) E03.9 and PVD (peripheral vascular disease) I73.9 [facility] [id number] [place] [address] 03905 -8124 May, Burning with urination R30.0 and Acute cystitis with hematuria N30.01 [place] [id number] [place] [address] 97715- 4774 May, Dental examination Z01.20 [place] [id number] [place] [address] 21594- 2672 May, Hypothyroidism (acquired) E03.9 [place] [id number] [place] [address] 20589- 3464 Feb, [facility] [address] 11594- 3925 Feb, Status post amputation of toe of left foot Z89.422 ; PVD ( peripheral vascular disease) I73.9 ; Type 2 diabetes mellitus with unspecified complications E11.8 and Essential hypertension I10 [facility] [id number] [place] [address] 48945- 5910 Jan, [place] [address] [address]- 9111 Jan, Hypothyroidism (acquired) E03.9 [place] [id number] [place] [address] 70315- 8332 Jan, [place] [id number] [place] [address] 88537- 1053 Jan, [place] [id number] [place] [address] 29357- 8938 Jan, Type 2 diabetes mellitus with unspecified complications E11.8 ; Status post amputation of toe of left foot Z89.422 and Essential ( primary) hypertension I10 [place] [id number] [place] [address] 21827- 9160 Jan, Type 2 diabetes mellitus with unspecified complications E11.8 ; Status post amputation of toe of left foot Z89.422 ; Essential hypertension I10 and PVD (peripheral vascular disease) I73.9 [place] [address] [place] [address] 55645- 2590 Jan, [place] [id number] [place] [address] 56114- 6345 Jan, [place] [address] [place] [address] 53673- 9794 Jan, [place] [address] [place] [address] 32110- 7190 Jan, Weakness R53.1 ; Fatigue, unspecified type R53.83 ; PVD ( peripheral vascular disease) I73.9 ; Acute osteomyelitis of other site M86.18 ; Type 2 diabetes mellitus with diabetic neuropathy, unspecified E11.40 and 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.4 [place] [address], [place] [address]- 8203 Dec, [place] [id number] [place] [address] 13924- 0368 Dec, Type 2 diabetes mellitus with unspecified complications E11.8 [place] [id number] [place] [address] 37491- 4564 Dec, [place] [id number] [place] [address] 45971- 7467 Dec, Pressure ulcer, unspecified pressure ulcer stage L89.90 and Type 2 diabetes mellitus with unspecified complications E11.8 [facility] [id number] [place] [address] 07008 -1652 Dec, Toe infection L08.9 [place] [id number] [place] [address] 05247- 5078 November, Dental caries K02.9 [place] [address] 44617- 4566 November, [place] [id number] [place] [address] 51356- 8693 November, Dental examination Z01.20 [place] [id number] [place] [address] 63056- 5458 Sep, Lipoma of torso D17.1 and Thoracic neuritis M54.14 [place] [id number] [place] [address] 89208- 4395 Sep, [place] [id number] [place] [address] 61256- 9413 Aug, [facility] [address] [place] [address] 58069 -2317 Jul, Dysuria R30.0 and UTI (urinary tract infection) N39.0 [place] [address] 52287- 0132 Jun, Left shoulder pain M25.512 [place] [id number] [place] [address] 22080- 9588 May, Shoulder pain, left M25.512 [place] [address] [place] [address]- 0289 May, [facility] [id number] [place] [address] 10794- 3212 May, [facility] [id number] [place] [address] 71193- 5395 May, Left shoulder pain M25.512 [place] [address] 97493- 1288 May, [facility] [id number] [place] [address] 53364- 3731 Apr, Encounter for immunization Z23 [place] [address] 62455- 0256 Apr, Urinary tract infection, site not specified N39.0 ; Hypotension, unspecified I95.9 ; Type 2 diabetes mellitus with unspecified complications E11.8 and Generalized edema R60.1 [place] [address] 20598- 5948 Apr, [facility] [id number] [place] [address] 27108- 4758 Mar, Diabetes with other specified manifestations, type II or unspecified type, not stated as uncontrolled 250.80 [place] [id number] [place] [address] 87483- 6232 Feb, Gout 274.9 and Diabetes 250.00 [place] [id number] [place] [address] 78536- 5864 Jan, [facility] [id number] [place] [address] 54760- 8202 November, CAD (coronary artery disease) 414.00 and CHF (congestive heart failure) 428.0 [place] [id number] [place] [address] 20031- 2737 Oct, [place] [address] 40600- 3051 Oct, [facility] [place] [facility] [address] [id number] [place] [address]- 9203 Oct, [facility] [place] [facility] [address] [id number] [place] [address]- 9859 Sep, [facility] [place] [facility] [address] [id number] [place] [address]- 8514 Sep, [facility] [place] [facility] [address] [id number] [place] [address]- 4058 Sep, [facility] [place] [facility] [address] [id number] [place] [address]- 1650 Sep, [facility] [place] [facility] [address] [id number] [place] [address]- 7325 Aug, [facility] [place] [facility] [address] [facility] [id number] [place] [address]- 2837 Aug, [facility] [place] [facility] [address] [facility] [id number] [place] [address]- 8447 Aug, 2014 [facility] [place] [facility] [address] [id number] [place] [address]- 2993 Aug, 2014 [facility] [place] [facility] [address] [facility] [id number] [place] [address]- 0499 Aug, 2014 [facility] [place] [facility] [address] [facility] [id number] [place] [address]- 1987 Aug, 2014 [facility] [place] [facility] [address] [id number], [place] [address]- 2183 Aug, [facility] [place] [facility] [address] [id number] [place] [address]- 5969 Aug, [facility] [place] [facility] [address] [facility] [id number] [place] [address]- 5570 Jul, [facility] [place] [facility] [address] [facility] [id number] [place] [address]- 3187 Jul, [facility] [place] [facility] [address] [facility] [id number] [place] [address]- 4521 Jul, [facility] [address] [id number] [place] [address]- 9061 Jul, [facility] [address] [id number] [place] [address]- 6082 Jul, [facility] [address] [id number] [place] [address]- 6588 Jul, [facility] [address] [id number] [place] [address]- 6278 Jul, [facility] [address] [id number] [place] [address]- 2344 Jul, [facility] [address] [id number] [place] [address]- 2239 Jul, [facility] [address] [id number] [place] [address]- 6352 Jul, [facility] [address] [id number] [place] [address]- 1097 Jun, [facility] [address] [id number] [place] [address]- 7024 Jun, [facility] [address] [id number] [place] [address]- 2638 Jun, [facility] [address] [id number] [place] [address]- 9669 Jun, [facility] [address] [id number] [place] [address]- 5181 Jun, [facility] [place] [facility] [address] [id number] [place] [address]- 6323 Jun, [facility] [place] [facility] [address] [id number] [place] [address]- 2652 Jun, [facility] [address] [id number] [place] [address]- 0026 Jun, [facility] [place] [facility] [address] [id number] [place] [address]- 5128 Jun, [facility] [place] [facility] [address] [id number] [place] [address]- 0651 Jun, [facility] [place] [facility] [address] [id number] [place] [address]- 7355 May, [facility] [place] [facility] [address] [id number] [place] [address]- 7907 May, [facility] [place] [facility] [address] [id number] [place] [address]- 0344 Mar, [facility] [place] [facility] [address] [id number] [place] [address]- 6577 Mar, [facility] [place] [facility] [address] [id number] [place] [address]- 0163 Mar, [facility] [place] [facility] [address] [id number] [place] [address]- 0342 Mar, [facility] [place] [facility] [address] [id number] [place] [address]- 0157 Feb, [facility] [place] [facility] [address] [id number] [place] [address]- 1145 Feb, [facility] [place] [facility] [address] [id number] [place] [address]- 8272 Feb, [facility] [place] [facility] [address] [id number] [place] [address]- 4270 Jan, [facility] [place] [facility] [address] [id number] [place] [address]- 2283 Jan, [facility] [place] [facility] [address] [id number] [place] [address]- 3133 Jan, [facility] [place] [facility] [address] [id number] [place] [address]- 7811 Jan, [facility] [place] [facility] [address] [id number] [place] [address]- 2819 Jan, [facility] [place] [facility] [address] [id number] [place] [address]- 0723 Jan, [facility] [place] [facility] [address] [id number] [place] 4844 Jan, [facility] [place] [facility] [address] [id number] [place] [address] Jan, [facility] [place] [facility] [address] [id number] [place] [address] Jan, [facility] [place] [facility] [address] [id number] [place] [address] Jan, [facility] [place] [facility] [address] [id number] [place] [address] Dec, [facility] [place] [facility] [address] [id number] [place] [address] Dec, [facility] [facility] [address] [id number] [place] [address] November, [facility] [place] [facility] [address] [id number] [place] [address] November, [facility] [place] [facility] [address] [id number] [place] [address] November, [facility] [facility] [address] [id number] [place] [address] November, [facility] [place] [facility] [address] [id number] [place] [address] November, [facility] [place] [facility] [address] [id number] [place] [address] November, [facility] [place] [facility] [address] [id number] [place] [address] November, [facility] [place] [facility] [address] [id number] [place] [address] Oct, [facility] [place] [facility] [address] [id number] [place] [address] Oct, [facility] [place] [facility] [address] [id number] [place] [address] Sep, [facility] [place] [facility] [address] [id number] [place] [address] Sep, [facility] [place] [facility] [address] [id number] [place] [address] Sep, [facility] [place] [facility] [address] [id number] [place] [address] Sep, [facility] [place] [facility] [address] [id number] [place] [address] Sep, [facility] [facility] [address] [id number] [place] [address] Sep, [facility] [place] [facility] [address] [id number] [place] [address] Sep, [facility] [facility] [address] [id number] [place] [address] Sep, [facility] [facility] [address] [address] [id number] [place] [address] Sep, [facility] [place] [facility] [address] [id number] [place] [address] Sep, [facility] [place] [facility] [address] [id number] [place] [address] Aug, [facility] [place] [facility] [address] [id number] [place] [address] Aug, [facility] [place] [facility] [address] [id number] [place] [address]798 Jul, [facility] [place] [facility] [address] [id number] [place] [address]36 14 Jul, 2013 [facility] [place] [facility] [address] [id number] [place] [address] 27[address] Jul, [facility] [place] [facility] [address] [id number] [place] [address] 2549 Jul, [facility] [place] [facility] [address] [id number] [place] [address] 9107 Jul, [facility] [place] [facility] [address] [facility] [id number] [place] [address] Jul, [facility] [place] [facility] [address] [id number] [place] [address] 9373 Jun, [facility] [place] [facility] [address] [id number] [place] [address]- 8286 Jun, [facility] [place] [facility] [address] [id number] [place] [address]- 3881 Jun, [facility] [place] [facility] [address] [id number] [place] [address]- 1392 Jun, [facility] [place] [facility] [address] [id number], [place] [address] 285[address] May, [facility] [place] [facility] [address] [id number] [place] [address] 1231 May, [facility] [place] [facility] [address] [id number], [place] [address] 4847 May, [facility] [place] [facility] [address] [id number], [place] [address]- 59[address] May, [facility] [place] [facility] [address] [id number], [place] [address]- 7[address] May, [facility] [place] [facility] [address] [id number], [place] [address] 290[address] Apr, [facility] [place] [facility] [address] [id number], [place] [address]- 2968 Apr, [facility] [place] [facility] [address] [id number], [place] [address]- 7[address] Apr, [facility] [place] [facility] [address] [id number] [place] [address]- 1877 Apr, [facility] [place] [facility] [address] [id number] [place] [address]- 0076 Apr, [facility] [place] [facility] [address] [id number] [place] [address]- 1684 Apr, [facility] [place] [facility] [address] [id number] [place] [address]- 6344 Apr, [facility] [place] [facility] [address] [id number] [place] [address]- 8428 Apr, [facility] [place] [facility] [address] [id number] [place] [address]- 9502 Apr, [facility] [place] [facility] [address] [id number] [place] [address]- 3759 Apr, [facility] [place] [facility] [address] [id number] [place] [address]- 4641 Apr, [facility] [place] [facility] [address] [id number] [place] [address]- 7747 Apr, [facility] [place] [facility] [address] [id number] [place] [address]- 6635 Mar, [facility] [place] [facility] [address] [id number] [place] [address]- 9822 Mar, [facility] [place] [facility] [address] [id number] [place] [address] 2540 Feb, [facility] [place] [facility] [address] [id number] [place] [address]- 254 Jan, [facility] [place] [facility] [address] [id number] [place] [address]- 2545 Jan, [facility] [place] [facility] [address] [id number] [place] [address]- 2546 Jan, [facility] [place] [facility] [address] [id number] [place] [address]- 2546 Jan, [facility] [place] [facility] [address] [id number] [place] [address]- 4628 Dec, [facility] [address] [id number] [place] [address]- 2111 Dec, [facility] [place] [facility] [address] [id number] [place] [address]- 9203 Dec, [facility] [address] [id number] [place] [address]- 0557 Dec, [facility] [address] [id number] [place] [address]- 9997 Dec, [facility] [address] [id number] [place] [address]- 9433 Dec, [facility] [address] [id number] [place] [address]- 1160 Dec, [facility] [address] [id number] [place] [address]- 5622 November, [facility] [address] [id number] [place] [address]- 7824 November, [facility] [address] [id number] [place] [address]- 3[address] November, [facility] [place] [facility] [address] [id number] [place] [address]- 7251 Oct, [facility] [place] [facility] [address] [id number] [place] [address]- 7260 Oct, [facility] [place] [facility] [address] [id number] [place] [address]- 9794 Oct, [facility] [place] [facility] [address] [id number] [place] [address]- 1655 Oct, [facility] [place] [facility] [address] [id number] [place] [address] 3887 Oct, [facility] [place] [facility] [address] [id number] [place] [address]- 2546 26 Sep, 2012 [facility] [address] [id number] [place] [address]- 1739 Sep, [facility] [place] [facility] [address] [id number] [place] [address]- 5126 13 Sep, 2012 [facility] [address] [facility] [id number] [place] [address]- 9456 Sep, [facility] [address] [id number] [place] [address]- 8050 Aug, [facility] [place] [facility] [address] [id number] [place] [address]- 4676 Aug, [facility] [place] [facility] [address] [facility] [id number] [place] [address]- 2136 Aug, [facility] [address] [facility] [id number] [place] [address]- 8147 Aug, [facility] [address] [facility] [id number] [place] [address]- 4906 Jul, [facility] [address] [facility] [id number] [place] [address]- 9943 Jul, [facility] [address] [facility] [id number] [place] [address]- 6819 Jun, [facility] [address] [facility] [id number] [place] [address]- 5309 Jun, [facility] [place] [facility] [address] [id number] [place] [address]- 2541 Jun, [facility] [place] [facility] [address] [id number] [place] [address]- 4494 Jun, [facility] [place] [facility] [address] [facility] [id number] [place] [address]- 0179 May, [facility] [place] [facility] [address] [facility] [id number] [place] [address]- 5857 May, [facility] [place] [facility] [address] [id number] [place] [address]- 8328 May, [facility] [place] [facility] [address] [id number] [place] [address]- 9879 May, [facility] [place] [facility] [address] [id number] [place] [address] Apr, [facility] [place] [facility] [address] [id number] [place] [address]- 5630 Apr, [facility] [place] [facility] [address] [id number] [place] [address]- 3911 Apr, [facility] [place] [facility] [address] [id number] [place] [address]- 4609 Apr, [facility] [place] [facility] [address] [id number] [place] [address]- 4380 Apr, [facility] [place] [facility] [address] [id number] [place] [address]- 1886 Apr, [facility] [place] [facility] [address] [id number] [place] [address]- 8618 Apr, [facility] [place] [facility] [address] [id number] [place] [address]- 3257 Apr, [facility] [place] [facility] [address] [id number] [place] [address]- 6880 Apr, [facility] [place] [facility] [address] [id number] [place] [address] Apr, [facility] [place] [facility] [address] [id number] [place] [address]- 1841 Feb, [facility] [place] [facility] [address] [id number] [place] [address]- 5456 Feb, [facility] [place] [facility] [address] [id number] [place] [address] 2544 Jan, [facility] [place] [facility] [address] [id number] [place] [address]- 0835 Jan, [facility] [address] [id number] [place] [address]- 5541 Jan, [facility] [place] [facility] [address] [id number] [place] [address]- 4720 Jan, [facility] [place] [facility] [address] [id number] [place] [address]- 1981 Jan, [facility] [place] [facility] [address] [id number] [place] [address]- 3829 Jan, [facility] [place] [facility] [address] [id number] [place] [address]- 3821 Dec, [facility] [place] [facility] [address] [id number] [place] [address]- 1919 November, [facility] [place] [facility] [address] [id number] [place] [address]- 8003 November, [facility] [place] [facility] [address] [id number] [place] [address]- 9304 November, [facility] [place] [facility] [address] [id number] [place] [address]- 6117 Sep, [facility] [place] [facility] [address] [id number] [place] [address]- 3545 Sep, [facility] [place] [facility] [address] [id number] [place] [address]- 0991 Sep, [facility] [place] [facility] [address] [id number], [place] [address]- 8615 Sep, [facility] [place] [facility] [address] [id number] [place] [address]- 2524 Sep, [facility] [place] [facility] [address] [id number] [place] [address]- 6868 Sep, [facility] [place] [facility] [address] [id number] [place] [address]- 0721 Aug, [facility] [place] [facility] [address] [id number] [place] [address]- 8757 10 Aug, 2011 [facility] [address] [id number] [place] [address]- 0783 Aug, [facility] [address] [id number] [place] [address]- 1625 Jul, [facility] [address] [id number] [place] [address]- 5145 Jul, [facility] [address] [id number] [place] [address]- 8744 Jul, [facility] [address] [id number] [place] [address]- 7350 Jul, [facility] [address] [facility] [id number] [place] [address]- 5635 Jun, [facility] [address] [facility] [id number] [place] [address]- 6549 Jun, [facility] [address] [id number] [place] [address]- 3367 Jun, [facility] [address] [facility] [id number] [place] [address]- 8609 Jun, [facility] [address] [facility] [id number] [place] [address]- 1895 Jun, [facility] [address] [id number] [place] [address]- 1559 Jun, [facility] [address] [id number] [place] [address]- 9767 May, [facility] [place] [facility] [address] [id number] [place] [address]- 5228 May, [facility] [place] [facility] [address] [facility] [id number] [place] [address]- 6031 May, [facility] [address] [facility] [id number] [place] [address]- 4642 Apr, [facility] [address] [id number] [place] [address]- 2048 11 Jan, 2011 [facility] [place] [facility] [address] [id number] [place] [address]- 7596 20 Jun, 2010 [facility] [place] [facility] [address] [id number] [place] 20 Jun, 2010 [facility] [place] [facility] [address] [id number] [place] [address]- 9636 15 Jun, 2010 [facility] [address] [id number] [place] [address]- 1216 15 Jun, 2010 [facility] [place] [facility] [address] [id number] [place] [address]- 9966 15 Jun, 2010 [facility] [address] [id number] [place] [address]- 4866 13 Jun, 2010 [facility] [place] [facility] [address] [id number] [place] [address]- 9660 13 Jun, 2010 [facility] [place] [facility] [address] [id number] [place] [address]- 0744 Apr, [facility] [place] [facility] [address] [id number], [place] [address]- 6866 Feb, [facility] [place] [facility] [address] [id number] [place] [address]- 7918 15 Aug, 2009 [facility] [place] [facility] [address] [id number], [place] [address]- 2085 Jul, [facility] [place] [facility] [address] [id number] [place] [address]- 2812 Jul, [facility] [place] [facility] [address] [id number], [place] [address]- 3816 29 Jun, 2009 [facility] [place] [facility] [address] [id number] [place] [address]- 4514 28 Jun, 2009 [facility] [place] [facility] [address] [id number], [place] [address]- 6270 28 Jun, 2009 [facility] [address] [facility] [id number], [place] [address]- 0026 Jun, [facility] [address] [id number], [place] [address]- 8816 16 Jun, 2009 [facility] [id number], [place] [address]- 6506 Jun, [facility] [address] [facility] [id number], [place] [address]- 8738 Jun, [facility] [id number] [place] [address]- 8288 30 May, 2009 [facility] [address] [id number], [place] [address]- 4346 27 May, 2009 [facility] [id number] [place] [address]- 8606 23 May, 2009 [facility] [id number], [place] [address]- 3824 May, [facility] [id number], [place] [address]- 8534 May, [facility] [id number], [place] [address]- 5140 16 May, 2009 [facility] [id number], [place] [address]- 6900 May, [facility] [address] [id number], [place] [address]- 7013 Apr, [facility] [address] [id number], [place] [address]- 2476 Apr, [facility] [address] [id number] 6367 Jan, [facility] [id number] 8099 16 Oct, 2008 IMMUNIZATIONS No Known Immunizations SOCIAL HISTORY Never Assessed REASON FOR VISIT Wound Care PLAN OF CARE VITAL SIGNS MEDICATIONS Unknown [...]
--- OUTSIDE RECORDS SUMMARY | 2018-11-09 13:31 | XMS REPORT ---
Author Author PRABHA HILL [facility] Address [address] [place] [address] Care Team Providers Care Forester Aide Name Role Phone PRABHA HILL Unavailable PROBLEMS Type Condition ICD9-CM Code HAO96-SU Code Onset Dates Condition Status SNOMED Code Problem Hypernatremia E87.0 Active 43618984 Problem Hallucinations R44.3 Active 8182370 Problem Hypoglycemia E16.2 Active 122553514 Problem Anxiety F41.9 Active 96839096 Problem Dementia in other diseases classified elsewhere without behavioral disturbance F02.80 Active 758244437 Problem Neurogenic orthostatic hypotension G90.3 Active 630742618 Problem Dementia with Lewy bodies G31.83 Active 326239169 Problem Coronary artery disease involving [place] coronary artery of [place] heart without angina pectoris I25.10 Active 2840822484869 Problem Parkinsons disease G20 Active 38014299 Problem Unsteady gait R26.81 Active 96885694 Problem Mixed stress and urge urinary incontinence N39.46 Active 271347496 Problem Episodic cluster headache, not intractable G44.019 Active 187348956 Problem PVD (peripheral vascular disease) I73.9 Active 405065187 Problem Status post amputation of toe of left foot Z89.422 Active 806888399 Problem Dysuria R30.0 Active 30079512 Problem Type 2 diabetes mellitus with unspecified complications E11.8 Active 29218303 Problem Neuropathy G62.9 Active 326808492 Problem Polydipsia R63.1 Active 52291923 Problem Essential hypertension I10 Active 51577476 Problem Dysthymia F34.1 Active 26047582 Problem Hypothyroidism (acquired) E03.9 Active 136942996 Problem Hyperlipemia, mixed E78.2 Active 147215754 ALLERGIES No Information ENCOUNTERS Encounter Location Date Diagnosis [facility] [address] [facility] [id number] [address] 08 Dec, 2017 Left shoulder pain M25.512 [facility] [id number] [place] [address] 66723- 3663 Dec, Type 2 diabetes mellitus with unspecified complications E11.8 ; Anxiety F41.9 ; Therapeutic drug monitoring Z51.81 and Analgesic use Z79.899 [place] [id number] [place] [address] 88559- 7076 November, [place] [address] 16508- 1116 November, [facility] [place] [address] 19153- 7555 November, Left shoulder pain M25.512 [place] [address] 90019- 8750 Oct, [facility] [id number] [place] [address] 64463 -3931 Oct, [facility] [address] 04399- 6875 Oct, Parkinsons disease G20 [facility] [address] 38977 -0582 Oct, Acute cystitis without hematuria N30.00 and Viral upper respiratory tract infection J06.9 [place] [id number] [place] [address] 03507- 5335 Oct, [facility] [address] 82336- 8574 Oct, Type 2 diabetes mellitus with unspecified complications E11.8 [place] [address] 21333- 5612 Oct, Left shoulder pain M25.512 [facility] [id number] [place] [address] 94101- 7144 Oct, Type 2 diabetes mellitus with unspecified complications E11.8 ; Dysuria R30.0 and Neurogenic orthostatic hypotension G90.3 [place] [address] 96997- 3788 Sep, Left shoulder pain M25.512 [place] [address] 70056- 3700 Sep, Medicare annual wellness visit, initial Z00.00 ; Parkinsons disease G20 ; Type 2 diabetes mellitus with unspecified complications E11.8 ; Essential hypertension I10 ; Coronary artery disease involving [place] coronary artery of [place] heart without angina pectoris I25.10 ; Hypothyroidism (acquired ) E03.9 ; PVD (peripheral vascular disease) I73.9 ; Dysthymia F34.1 ; Hyperlipemia, mixed E78.2 ; Neuropathy G62.9 ; Encounter for immunization Z23 ; Encounter for other screening for malignant neoplasm of breast Z12.39 and Mixed stress and urge urinary incontinence N39.[address] 0[address]48- 0900 25 Aug, 2017 Parkinsons disease G20 [address] 30607- 3294 Aug, Type 2 diabetes mellitus with unspecified complications E11.8 ; Left shoulder pain M25.512 and Hypotensive episode I95.[address] 94760- 7177 09 Aug, 2017 Coronary artery disease involving [place] coronary artery of [place] heart without angina pectoris I25.[address] 04884- 0482 07 Aug, 2017 Type 2 diabetes mellitus with unspecified complications E11.[address] 15161- 7235 Jul, Callus of foot L84 [address] 96331- 3541 Jul, [address] 90879- 8362 Jul, Callus of foot L84 ; Episodic cluster headache, not intractable G44.019 ; Type 2 diabetes mellitus with unspecified complications E11.8 and Parkinsons disease G20 [place] [id number] [place] [address] 98859- 2390 Jul, [place] [address] 78917- 7987 Jul, [place] [address] 73369- 0221 Jun, Type 2 diabetes mellitus with unspecified complications E11.8 ; Unsteady gait R26.81 ; Forgetfulness R68.89 and Hallucinations R44.3 [place] [address] 58939- 1584 Jun, [place] [address] 79784- 3034 Jun, Left shoulder pain M25.512 [place] [address] 53287- 3964 13 May, 2017 Hypernatremia E87.0 and Polydipsia R63.1 [place] [address] 28036- 5859 08 May, 2017 Hypernatremia E87.0 and Polydipsia R63.1 [place] [address] 26395- 5681 May, Hypoglycemia E16.2 ; Dysuria R30.0 ; Unsteadiness on feet R26.81 ; Forgetfulness R68.89 ; Type 2 diabetes mellitus with unspecified complications E11.8 and Yeast infection involving the vagina and surrounding area B37.3 [place] [address] 46442- 7996 May, Acute cystitis without hematuria N30.00 [facility] [address] 59530 -6346 Apr, Dysuria R30.0 and Acute cystitis without hematuria N30.00 [place] [id number] [place] [address] 82602- 7821 05 Apr, 2017 Hypernatremia E87.0 and Polydipsia R63.1 [place] [address] 71514- 2718 02 Apr, 2017 Vertigo R42 and Type 2 diabetes mellitus with unspecified complications E11.8 [place] [address] 07371- 3304 20 Mar, 2017 [place] [address] 92160- 7700 19 Mar, 2017 Left shoulder pain M25.512 [place] [address] 12003- 9384 13 Mar, 2017 Vertigo R42 [place] [address] 44901- 5962 12 Mar, 2017 Polydipsia R63.1 [place] [address] 67605- 8591 12 Mar, 2017 Polydipsia R63.1 [place] [address] 76216- 6891 11 Mar, 2017 Vertigo R42 [place] [address] 19813- 1371 07 Mar, 2017 Type 2 diabetes mellitus with unspecified complications E11.8 ; Vertigo R42 ; Polydipsia R63.1 ; Polyuria R35.8 ; Hypothyroidism ( acquired) E03.9 ; Abnormal urinalysis R82.90 and Dysthymia F34.1 [place] [id number] [place] [address] 94542- 0083 05 Mar, 2017 Coronary artery disease of [place] artery with stable angina pectoris, unspecified whether [place] or transplanted heart I25.118 ; Systolic CHF, chronic I50.22 ; Hyperlipemia, mixed E78.2 and Essential hypertension I10 [facility] [address] [id number] Feb, Dental caries K02.9 [facility] [id number] [place] [address] 68230- 7800 Feb, Type 2 diabetes mellitus with diabetic neuropathy, unspecified E11.40 [facility] [place] [id number] [place] [address] 70513- 3336 23 Dec, 2016 Left shoulder pain M25.512 [facility] [place] [id number] [place] [address] 08492- 3151 Dec, [facility] [id number] [place] [address] 89687- 6830 Dec, Type 2 diabetes mellitus with unspecified complications E11.8 [facility] [id number] [place] [address] [id number] Dec, Dental examination Z01.20 [facility] [id number] [place] [address] 69868- 9718 Dec, Type 2 diabetes mellitus with diabetic neuropathy, unspecified E11.40 [facility] [place] [id number] [place] [address] 41037- 1041 Dec, [facility] [id number] [place] [address] 88888- 0226 Dec, Type 2 diabetes mellitus with diabetic neuropathy, unspecified E11.40 [facility] [place] [address] [address]- 5294 November, Left shoulder pain M25.512 [facility] [place] [address] [address]- 8767 November, [facility] [place] [id number] [place] [address] 34040- 6503 November, Type 2 diabetes mellitus with unspecified complications E11.8 and Dysuria R30.0 [facility] [place] [id number] [place] [address] 28065- 6682 Oct, Left shoulder pain M25.512 [facility] [place] [id number] [place] [address] 92432- 0368 Sep, Left shoulder pain M25.512 [place] [address] 25679- 7409 Sep, Pre-op testing Z01.818 [place] [address] 70592- 9328 Sep, Pre-op testing Z01.818 [place] [address] 97914- 8388 Sep, Pre-op testing Z01.818 [place] [address] 71104- 5673 Sep, Pre-op testing Z01.818 and Mouth pain K13.79 [place] [address] 55488- 8024 Sep, Left shoulder pain M25.512 [place] [id number] [place] [address] 16640- 0642 Aug, Other eczema L30.8 [place] [address] 86110- 6669 06 Aug, 2016 PVD (peripheral vascular disease) I73.9 ; Type 2 diabetes mellitus with unspecified complications E11.8 ; Acute cystitis with hematuria N30.01 ; Other eczema L30.8 ; Dysuria R30.0 and Left shoulder pain M25.512 [facility] [id number] [place] [address] 04658 -6954 Jul, Otalgia of right ear H92.01 and Blood in ear canal, right H92.21 [place] [address] 59571- 4269 Jul, Arthralgia, unspecified joint M25.50 ; PVD (peripheral vascular disease) I73.9 and Neuropathy G62.9 [place] [address] 47360- 5144 Jul, [facility] [place] [id number] [place] [address] 45902- 8587 Jun, Medicare annual wellness visit, initial Z00.00 ; Cervicalgia M54.2 ; Radiculopathy of cervical region M54.12 ; Encounter for immunization Z23 ; Type 2 diabetes mellitus with unspecified complications E11.8 and Essential hypertension I10 [place] [address] 39144- 3231 Jun, [place] [address] 47700- 9885 May, Hypothyroidism (acquired) E03.9 [place] [id number] [place] [address] 80778- 9928 May, Dysuria R30.0 ; Essential hypertension I10 ; Hypothyroidism (acquired) E03.9 and PVD (peripheral vascular disease) I73.9 [facility] [id number] [place] [address] 50553 -1684 May, Burning with urination R30.0 and Acute cystitis with hematuria N30.01 [place] [id number] [place] [address] 86863- 7158 May, Dental examination Z01.20 [place] [id number] [place] [address] 29491- 5855 May, Hypothyroidism (acquired) E03.9 [place] [id number] [place] [address] 51528- 3055 Feb, [facility] [place] [address] 43758- 3308 Feb, Status post amputation of toe of left foot Z89.422 ; PVD ( peripheral vascular disease) I73.9 ; Type 2 diabetes mellitus with unspecified complications E11.8 and Essential hypertension I10 [facility] [id number] [place] [address] 71634- 0108 Jan, [place] [address] [address]- 4598 Jan, Hypothyroidism (acquired) E03.9 [place] [id number] [place] [address] 36208- 2180 Jan, [place] [id number] [place] [address] 15162- 3540 Jan, [place] [id number] [place] [address] 97328- 4768 Jan, Type 2 diabetes mellitus with unspecified complications E11.8 ; Status post amputation of toe of left foot Z89.422 and Essential ( primary) hypertension I10 [place] [id number] [place] [address] 17012- 9781 Jan, Type 2 diabetes mellitus with unspecified complications E11.8 ; Status post amputation of toe of left foot Z89.422 ; Essential hypertension I10 and PVD (peripheral vascular disease) I73.9 [place] [id number] [place] [address] 72083- 8315 Jan, [place] [id number] [place] [address] 40838- 6146 Jan, [place] [id number] [place] [address] 25932- 8888 Jan, [place] [id number] [place] [address] 50856- 4025 Jan, Weakness R53.1 ; Fatigue, unspecified type R53.83 ; PVD ( peripheral vascular disease) I73.9 ; Acute osteomyelitis of other site M86.18 ; Type 2 diabetes mellitus with diabetic neuropathy, unspecified E11.40 and 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 [place] [address] [address]- 8089 Dec, [place] [id number] [place] [address] 40024- 8569 Dec, Type 2 diabetes mellitus with unspecified complications E11.8 [place] [id number] [place] [address] 58902- 7884 Dec, [place] [id number] [place] [address] 61111- 0297 Dec, Pressure ulcer, unspecified pressure ulcer stage L89.90 and Type 2 diabetes mellitus with unspecified complications E11.8 [facility] [id number] [place] [address] 18535 -4154 Dec, Toe infection L08.9 [place] [id number] [place] [address] 52281- 0609 November, Dental caries K02.9 [place] [address] 70020- 1375 November, [place] [id number] [place] [address] 65972- 7789 November, Dental examination Z01.20 [place] [id number] [place] [address] 29231- 7282 Sep, Lipoma of torso D17.1 and Thoracic neuritis M54.14 [place] [id number] [place] [address] 20167- 2406 Sep, [place] [id number] [place] [address] 14046- 0619 Aug, [facility] [id number] [place] [address] 47835 -3352 Jul, Dysuria R30.0 and UTI (urinary tract infection) N39.0 [place] [address] 07513- 4184 Jun, Left shoulder pain M25.512 [place] [id number] [place] [address] 53610- 2280 May, Shoulder pain, left M25.512 [place] [address] [place] [address]- 1400 May, [facility] [id number] [place] [address] 38507- 7239 May, [facility] [place] [id number] [place] [address] 84858- 7331 May, Left shoulder pain M25.512 [place] [address] 20748- 6020 May, [facility] [id number] [place] [address] 18164- 3834 Apr, Encounter for immunization Z23 [place] [address] 55089- 2303 Apr, Urinary tract infection, site not specified N39.0 ; Hypotension, unspecified I95.9 ; Type 2 diabetes mellitus with unspecified complications E11.8 and Generalized edema R60.1 [place] [address] 66956- 0008 Apr, [facility] [id number] [place] [address] 44750- 6791 Mar, Diabetes with other specified manifestations, type II or unspecified type, not stated as uncontrolled 250.80 [place] [id number] [place] [address] 81865- 2263 Feb, Gout 274.9 and Diabetes 250.00 [place] [id number] [place] [address] 96798- 7107 Jan, [facility] [id number] [place] [address] 85988- 8592 November, CAD (coronary artery disease) 414.00 and CHF (congestive heart failure) 428.0 [place] [id number] [place] [address] 81444- 6175 Oct, [place] [address] 91485- 9045 Oct, [facility] [place] [facility] [address] [id number] [place] [address]- 8791 Oct, [facility] [place] [facility] [address] [id number] [place] [address]- 3795 Sep, [facility] [place] [facility] [address] [id number] [place] [address]- 9733 Sep, [facility] [place] [facility] [address] [id number] [place] [address]- 2812 Sep, [facility] [place] [facility] [address] [id number] [place] [address]- 2574 Sep, [facility] [place] [facility] [address] [id number] [place] [address]- 9362 Aug, [facility] [place] [facility] [address] [facility] [id number] [place] [address]- 3410 Aug, [facility] [place] [facility] [address] [facility] [id number] [place] [address]- 7492 Aug, 2014 [facility] [place] [facility] [address] [id number] [place] [address]- 1676 Aug, 2014 [facility] [place] [facility] [address] [facility] [id number] [place] [address]- 8775 Aug, 2014 [facility] [place] [facility] [address] [facility] [id number] [place] [address]- 2891 Aug, 2014 [facility] [place] [facility] [address] [id number], [place] [address]- 2699 Aug, [facility] [place] [facility] [address] [id number] [place] [address]- 0121 Aug, [facility] [place] [facility] [address] [facility] [id number] [place] [address]- 1999 Jul, [facility] [place] [facility] [address] [facility] [id number] [place] [address]- 1607 Jul, [facility] [place] [facility] [address] [facility] [id number] [place] [address]- 8496 Jul, [facility] [address] [id number] [place] [address]- 1761 Jul, [facility] [address] [id number] [place] [address]- 0321 Jul, [facility] [address] [id number] [place] [address]- 3559 Jul, [facility] [address] [id number] [place] [address]- 2870 Jul, [facility] [address] [id number] [place] [address]- 3586 Jul, [facility] [address] [id number] [place] [address]- 0296 Jul, [facility] [address] [id number] [place] [address]- 7147 Jul, [facility] [address] [id number] [place] [address]- 2367 Jun, [facility] [address] [id number] [place] [address]- 2950 Jun, [facility] [address] [id number] [place] [address]- 2285 Jun, [facility] [address] [id number] [place] [address]- 5797 Jun, [facility] [address] [id number] [place] [address]- 3588 Jun, [facility] [place] [facility] [address] [id number] [place] [address]- 7985 Jun, [facility] [place] [facility] [address] [id number] [place] [address]- 5397 Jun, [facility] [address] [id number] [place] [address]- 5721 Jun, [facility] [place] [facility] [address] [id number] [place] [address]- 7852 Jun, [facility] [place] [facility] [address] [id number] [place] [address]- 7677 Jun, [facility] [place] [facility] [address] [id number] [place] [address]- 1511 May, [facility] [place] [facility] [address] [id number] [place] [address]- 1344 May, [facility] [place] [facility] [address] [id number] [place] [address]- 5345 Mar, [facility] [place] [facility] [address] [id number] [place] [address]- 0012 Mar, [facility] [place] [facility] [address] [id number] [place] [address]- 7441 Mar, [facility] [place] [facility] [address] [id number] [place] [address]- 8786 Mar, [facility] [place] [facility] [address] [id number] [place] [address]- 1389 Feb, [facility] [place] [facility] [address] [id number] [place] [address] Feb, [facility] [place] [facility] [address] [id number] [place] [address] Feb, [facility] [place] [facility] [address] [id number] [place] [address] Jan, [facility] [place] [facility] [address] [id number] [place] [address] Jan, [facility] [place] [facility] [address] [id number] [place] [address] Jan, [facility] [place] [facility] [address] [id number] [place] [address] Jan, [facility] [place] [facility] [address] [id number] [place] [address] Jan, [facility] [place] [facility] [address] [id number] [place] [address] Jan, [facility] [place] [facility] [address] [id number] [place] [address] Jan, [facility] [place] [facility] [address] [id number] [place] [address] Jan, [facility] [place] [facility] [address] [id number] [place] [address] Jan, [facility] [place] [facility] [address] [id number] [place] [address] Jan, [facility] [place] [facility] [address] [id number] [place] [address] Dec, [facility] [place] [facility] [address] [id number] [place] [address] Dec, [facility] [place] [facility] [address] [id number] [place] [address] November, [facility] [place] [facility] [address] [id number] [place] [address] November, [facility] [place] [facility] [address] [id number] [place] [address] November, [facility] [place] [facility] [address] [id number] [place] [address] November, [facility] [place] [facility] [address] [id number] [place] [address] November, [facility] [place] [facility] [address] [id number] [place] [address] November, [facility] [place] [facility] [address] [id number] [place] [address] November, [facility] [place] [facility] [address] [id number] [place] [address] Oct, [facility] [place] [facility] [address] [id number] [place] [address] Oct, [facility] [place] [facility] [address] [address] [id number] [place] [address] Sep, [facility] [place] [facility] [address] [id number] [place] [address] Sep, [facility] [place] [facility] [address] [id number] [place] [address] 8[address] Sep, [facility] [place] [facility] [address] [id number] [place] [address] 8575 Sep, [facility] [place] [facility] [address] [id number] [place] [address] 9[address] Sep, [facility] [place] [facility] [address] [id number] [place] [address] 3543 Sep, [facility] [place] [facility] [address] [id number] [place] [address]86 Sep, [facility] [place] [facility] [address] [id number] [place] [address] 6255 Sep, [facility] [place] [facility] [address] [id number] [place] [address]- 7[address] Sep, [facility] [place] [facility] [address] [id number] [place] [address] 6[address] Sep, [facility] [place] [facility] [address] [id number] [place] [address] 2366 Aug, [facility] [place] [facility] [address] [id number] [place] [address] 8030 Aug, [facility] [place] [facility] [address] [id number] [place] [address]- 5732 Jul, [facility] [place] [facility] [address] [id number] [place] [address]- 4976 14 Jul, 2013 [facility] [place] [facility] [address] [id number] [place] [address] 8245 Jul, [facility] [place] [facility] [address] [id number] [place] [address] 3828 Jul, [facility] [place] [facility] [address] [id number] [place] [address]- 6049 Jul, [facility] [place] [facility] [address] [facility] [id number] [place] [address] Jul, [facility] [place] [facility] [address] [id number] [place] [address]- 6100 Jun, [facility] [place] [facility] [address] [id number] [place] [address]- 4187 Jun, [facility] [place] [facility] [address] [id number] [place] [address]- 1484 Jun, [facility] [place] [facility] [address] [id number] [place] [address] 1937 Jun, [facility] [place] [facility] [address] [id number] [address] 1932 May, [facility] [place] [facility] [address] [id number] [place] [address]- 0912 May, [facility] [place] [facility] [address] [id number], [place] [address]- 1378 May, [facility] [place] [facility] [address] [id number], [place] [address]- 4428 May, [facility] [place] [facility] [address] [id number], [place] [address]- 8295 May, [facility] [place] [facility] [address] [id number], [place] [address]- 3269 Apr, [facility] [place] [facility] [address] [id number], [place] [address]- 0778 Apr, [facility] [place] [facility] [address] [id number], [place] [address]- 69[address] Apr, [facility] [place] [facility] [address] [id number] [place] [address]- 4008 Apr, [facility] [place] [facility] [address] [id number] [place] [address]- 2122 Apr, [facility] [place] [facility] [address] [id number] [place] [address]- 4091 Apr, [facility] [place] [facility] [address] [id number] [place] [address]- 8704 Apr, [facility] [place] [facility] [address] [id number] [place] [address]- 6741 Apr, [facility] [place] [facility] [address] [id number] [place] [address]- 6755 Apr, [facility] [place] [facility] [address] [id number] [place] [address]- 3087 Apr, [facility] [place] [facility] [address] [id number] [place] [address]- 7379 Apr, [facility] [place] [facility] [address] [id number] [place] [address]- 3069 Apr, [facility] [place] [facility] [address] [id number] [place] [address]- 7353 Mar, [facility] [place] [facility] [address] [id number] [place] [address]- 7786 Mar, [facility] [place] [facility] [address] [id number] [place] [address] 2547 Feb, [facility] [place] [facility] [address] [id number] [place] [address]- 254 Jan, [facility] [place] [facility] [address] [id number] [place] [address]- 2580 Jan, [facility] [place] [facility] [address] [id number] [place] [address]- 2546 Jan, [facility] [place] [facility] [address] [id number] [place] [address]- 2546 Jan, [facility] [place] [facility] [address] [id number] [place] [address]- 6439 Dec, [facility] [address] [id number] [place] [address]- 8993 Dec, [facility] [place] [facility] [address] [id number] [place] [address]- 2755 Dec, [facility] [address] [id number] [place] [address]- 8374 Dec, [facility] [address] [id number] [place] [address]- 5759 Dec, [facility] [address] [id number] [place] [address]- 7108 Dec, [facility] [address] [id number] [place] [address]- 3323 Dec, [facility] [address] [id number] [place] [address]- 0523 November, [facility] [address] [id number] [place] [address]- 3455 November, [facility] [address] [id number] [place] [address]- 7858 November, [facility] [place] [facility] [address] [id number] [place] [address]- 1517 Oct, [facility] [place] [facility] [address] [id number] [place] [address]- 9400 Oct, [facility] [place] [facility] [address] [id number] [place] [address]- 2080 Oct, [facility] [place] [facility] [address] [id number] [place] [address]- 2364 Oct, [facility] [place] [facility] [address] [id number] [place] [address]- 0191 Oct, [facility] [place] [facility] [address] [id number] [place] [address]- 2546 26 Sep, 2012 [facility] [address] [id number] [place] [address] Sep, [facility] [place] [facility] [address] [id number] [place] [address]- 6986 13 Sep, 2012 [facility] [address] [facility] [id number] [place] [address]- 7486 Sep, [facility] [address] [id number] [place] [address]- 3774 Aug, [facility] [place] [facility] [address] [id number] [place] [address]- 4246 Aug, [facility] [place] [facility] [address] [facility] [id number] [place] [address]- 2886 Aug, [facility] [address] [facility] [id number] [place] [address]- 0433 Aug, [facility] [address] [facility] [id number] [place] [address]- 7906 Jul, [facility] [address] [facility] [id number] [place] [address]- 1870 Jul, [facility] [address] [facility] [id number] [place] [address]- 5244 Jun, [facility] [address] [facility] [id number] [place] [address]- 0599 Jun, [facility] [place] [facility] [address] [id number] [place] [address]- 2547 Jun, [facility] [place] [facility] [address] [id number] [place] [address]- 7519 Jun, [facility] [place] [facility] [address] [facility] [id number] [place] [address]- 5780 May, [facility] [place] [facility] [address] [facility] [id number] [place] [address]- 8011 May, [facility] [place] [facility] [address] [id number] [place] [address]- 0181 May, [facility] [place] [facility] [address] [id number] [place] [address]- 3852 May, [facility] [place] [facility] [address] [id number] [place] [address] Apr, [facility] [place] [facility] [address] [id number] [place] [address]- 0046 Apr, [facility] [place] [facility] [address] [id number] [place] [address]- 6661 Apr, [facility] [place] [facility] [address] [id number] [place] [address]- 3648 Apr, [facility] [place] [facility] [address] [id number] [place] [address]- 6212 Apr, [facility] [place] [facility] [address] [id number] [place] [address]- 1376 Apr, [facility] [place] [facility] [address] [id number] [place] [address]- 2502 Apr, [facility] [place] [facility] [address] [id number] [place] [address]- 1610 Apr, [facility] [place] [facility] [address] [id number] [place] [address]- 4332 Apr, [facility] [place] [facility] [address] [id number] [place] Apr, [facility] [place] [facility] [address] [id number] [place] [address]- 9990 Feb, [facility] [place] [facility] [address] [id number] [place] [address]- 9056 Feb, [facility] [place] [facility] [address] [id number] [place] [address] 2543 Jan, [facility] [place] [facility] [address] [id number] [place] [address]- 1868 Jan, [facility] [address] [id number] [place] [address]- 6390 Jan, [facility] [place] [facility] [address] [id number] [place] [address]- 5516 Jan, [facility] [place] [facility] [address] [id number] [place] [address]- 5296 Jan, [facility] [place] [facility] [address] [id number] [place] [address]- 0664 Jan, [facility] [place] [facility] [address] [id number] [place] [address]- 5367 Dec, [facility] [place] [facility] [address] [id number] [place] [address]- 9640 November, [facility] [place] [facility] [address] [id number] [place] [address]- 6234 November, [facility] [place] [facility] [address] [id number] [place] [address]- 0457 November, [facility] [place] [facility] [address] [id number] [place] [address]- 0421 Sep, [facility] [place] [facility] [address] [id number] [place] [address]- 5314 Sep, [facility] [place] [facility] [address] [id number] [place] [address]- 2308 Sep, [facility] [place] [facility] [address] [id number], [place] [address]- 0635 Sep, [facility] [place] [facility] [address] [id number] [place] [address]- 3065 Sep, [facility] [place] [facility] [address] [id number] [place] [address]- 9095 Sep, [facility] [place] [facility] [address] [id number] [place] [address]- 5105 Aug, [facility] [place] [facility] [address] [id number] [place] [address]- 0971 10 Aug, 2011 [facility] [address] [id number] [place] [address]- 1723 Aug, [facility] [address] [id number] [place] [address]- 6362 Jul, [facility] [address] [id number] [place] [address]- 9763 Jul, [facility] [address] [id number] [place] [address]- 8461 Jul, [facility] [address] [id number] [place] [address]- 6475 Jul, [facility] [address] [facility] [id number] [place] [address]- 6692 Jun, [facility] [address] [facility] [id number] [place] [address]- 1583 Jun, [facility] [address] [id number] [place] [address]- [address], [facility] [address] [facility] [id number] [place] [address]- 7120 Jun, [facility] [address] [facility] [id number] [place] [address]- 4155 Jun, [facility] [address] [id number] [place] [address]- 2836 Jun, [facility] [address] [id number] [place] [address]- 1818 May, [facility] [place] [facility] [address] [id number] [place] [address]- 6994 May, [facility] [place] [facility] [address] [facility] [id number] [place] [address]- 4619 May, [facility] [address] [facility] [id number] [place] [address]- 0360 Apr, [facility] [address] [id number] [place] [address]- 0559 11 Jan, 2011 [facility] [place] [facility] [address] [id number] [place] [address]- 0186 20 Jun, 2010 [facility] [place] [facility] [address] [id number] [place]36 20 Jun, 2010 [facility] [place] [facility] [address] [id number] [place] [address]- 3906 15 Jun, 2010 [facility] [address] [id number] [place] [address]- 9376 15 Jun, 2010 [facility] [place] [facility] [address] [id number] [place] [address]- 9386 15 Jun, 2010 [facility] [address] [id number] [place] [address]- 3816 13 Jun, 2010 [facility] [place] [facility] [address] [id number] [place] [address]- 2277 13 Jun, 2010 [facility] [place] [facility] [address] [id number] [place] [address]- 1535 Apr, [facility] [place] [facility] [address] [id number], [place] [address]- 2734 Feb, [facility] [place] [facility] [address] [id number] [place] [address]- 8941 15 Aug, 2009 [facility] [place] [facility] [address] [id number], [place] [address]- 7306 Jul, [facility] [place] [facility] [address] [id number] [place] [address]- 9243 Jul, [facility] [place] [facility] [address] [id number], [place] [address]- 6226 29 Jun, 2009 [facility] [place] [facility] [address] [id number] [place] [address]- 8520 28 Jun, 2009 [facility] [place] [facility] [address] [id number], [place] [address]- 7474 28 Jun, 2009 [facility] [address] [facility] [id number], [place] [address]- 6696 Jun, [facility] [address] [id number], [place] [address]- 2446 16 Jun, 2009 [facility] [id number], [place] [address]- 4416 Jun, [facility] [address] [facility] [id number], [place] [address]- 6749 Jun, [facility] [id number] [place] [address]- 3010 30 May, 2009 [facility] [address] [id number], [place] [address]- 2006 27 May, 2009 [facility] [id number] [place] [address] 10615- 0960 23 May, 2009 [facility] [id number], [place] [address]- 8906 May, [facility] [id number], [place] [address]- 5899 May, [facility] [id number], [place] [address]- 4235 16 May, 2009 [facility] [id number], [place] [address]- 8827 May, [facility] [address] [id number], [place] [address]- 4629 Apr, [facility] [address] [id number], [place] [address]- 9379 Apr, [facility] [address] [id number] 3548 Jan, [facility] [id number] 5772 16 Oct, 2008 IMMUNIZATIONS No Known Immunizations [...]
--- OUTSIDE RECORDS SUMMARY | 2018-11-09 13:32 | XMS REPORT ---
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 Name Role Phone PRABHA HILL Unavailable PROBLEMS Type Condition ICD9-CM Code UDG01-DW Code Onset Dates Condition Status SNOMED Code Problem Hyperlipemia, mixed E78.2 Active 034452984 Problem Hypoglycemia E16.2 Active 013999532 Problem Hypernatremia E87.0 Active 89520667 Problem Neurogenic orthostatic hypotension G90.3 Active 706168548 Problem Dementia with Lewy bodies G31.83 Active 081942699 Problem Mixed stress and urge urinary incontinence N39.46 Active 213727004 Problem 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 Active 9459316355248 Problem Unsteady gait R26.81 Active 58713340 Problem Hallucinations R44.3 Active 3479791 Problem Parkinsons disease G20 Active 74549818 Problem Episodic cluster headache, not intractable G44.019 Active 100740876 Problem Type 2 diabetes mellitus with unspecified complications E11.8 Active 30745266 Problem PVD (peripheral vascular disease) I73.9 Active 592584770 Problem Dementia in other diseases classified elsewhere without behavioral disturbance F02.80 Active 343145435 Problem Dysuria R30.0 Active 08848341 Problem Hypothyroidism (acquired) E03.9 Active 150703342 Problem Neuropathy G62.9 Active 945819304 Problem Status post amputation of toe of left foot Z89.422 Active 553084552 Problem Dysthymia F34.1 Active 55628649 Problem Essential hypertension I10 Active 23193816 Problem Polydipsia R63.1 Active 79518623 ALLERGIES No Information ENCOUNTERS Encounter Location Date Diagnosis [facility] [address] [facility] [id number] [address] Dec, [facility] [id number] [place] [address] 46427 -7872 Oct, [facility] [id number] [place] [address] 56095- 5016 Oct, Parkinsons disease G20 [facility] [id number] [place] [address] 88839 -2357 18 Oct, 2017 Acute cystitis without hematuria N30.00 and Viral upper respiratory tract infection J06.9 [facility] [id number] [place] [address] 48546- 9300 Oct, [facility] [id number] [place] [address] 66443- 5789 Oct, Type 2 diabetes mellitus with unspecified complications E11.8 [place] [id number] [place] [address] 55040- 2078 16 Oct, 2017 Left shoulder pain M25.512 [place] [id number] [place] [address] 59300- 6699 16 Oct, 2017 Type 2 diabetes mellitus with unspecified complications E11.8 ; Dysuria R30.0 and Neurogenic orthostatic hypotension G90.3 [place] [id number] [place] [address] 12239- 4207 19 Sep, 2017 Left shoulder pain M25.512 [place] [id number] [place] [address] 68432- 8495 12 Sep, 2017 Medicare annual wellness visit, initial Z00.00 ; Parkinsons disease G20 ; Type 2 diabetes mellitus with unspecified complications E11.8 ; Essential hypertension I10 ; 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 ; Hypothyroidism (acquired ) E03.9 ; PVD (peripheral vascular disease) I73.9 ; Dysthymia F34.1 ; Hyperlipemia, mixed E78.2 ; Neuropathy G62.9 ; Encounter for immunization Z23 ; Encounter for other screening for malignant neoplasm of breast Z12.39 and Mixed stress and urge urinary incontinence N39.46 [facility] [id number] [place] [address] 35602- 5826 Aug, Parkinsons disease G20 [place] [id number] [place] [address] 22958- 0963 Aug, Type 2 diabetes mellitus with unspecified complications E11.8 ; Left shoulder pain M25.512 and Hypotensive episode I95.9 [place] [id number] [place] [address] 89726- 5639 Aug, 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 [facility] [place] [id number] [place] [address] 97047- 0807 07 Aug, 2017 Type 2 diabetes mellitus with unspecified complications E11.8 [place] [id number] [place] [address] 24774- 3246 Jul, Callus of foot L84 [place] [id number] [place] [address] 81552- 3976 Jul, [place] [id number] [place] [address] 81048- 1145 Jul, Callus of foot L84 ; Episodic cluster headache, not intractable G44.019 ; Type 2 diabetes mellitus with unspecified complications E11.8 and Parkinsons disease G20 [place] [id number] [place] [address] 86111- 3596 Jul, [place] [id number] [place] [address] 66875- 0949 Jul, [place] [id number] [place] [address] 63443- 4526 Jun, Type 2 diabetes mellitus with unspecified complications E11.8 ; Unsteady gait R26.81 ; Forgetfulness R68.89 and Hallucinations R44.3 [place] [id number] [place] [address] 53339- 4533 Jun, [place] [id number] [place] [address] 36633- 2167 Jun, Left shoulder pain M25.512 [facility] [id number] [place] [address] 12729- 1933 May, Hypernatremia E87.0 and Polydipsia R63.1 [facility] [id number] [place] [address] 59797- 3280 08 May, 2017 Hypernatremia E87.0 and Polydipsia R63.1 [place] [address] 38085- 9084 08 May, 2017 Hypoglycemia E16.2 ; Dysuria R30.0 ; Unsteadiness on feet R26.81 ; Forgetfulness R68.89 ; Type 2 diabetes mellitus with unspecified complications E11.8 and Yeast infection involving the vagina and surrounding area B37.3 [place] [id number] [place] [address] 83704- 5709 May, Acute cystitis without hematuria N30.00 [facility] [address] 98605 -3494 Apr, Dysuria R30.0 and Acute cystitis without hematuria N30.00 [place] [address] 53245- 8525 Apr, Hypernatremia E87.0 and Polydipsia R63.1 [facility] [id number] [place] [address] 04383- 9318 Apr, Vertigo R42 and Type 2 diabetes mellitus with unspecified complications E11.8 [place] [id number] [place] [address] 01851- 1894 Mar, [place] [address] 45796- 0906 19 Mar, 2017 Left shoulder pain M25.512 [facility] [id number] [place] [address] 19724- 1143 13 Mar, 2017 Vertigo R42 [place] [address] 83558- 8886 12 Mar, 2017 Polydipsia R63.1 [place] [id number] [place] [address] 90813- 0886 12 Mar, 2017 Polydipsia R63.1 [place] [id number] [place] [address] 82737- 7546 11 Mar, 2017 Vertigo R42 [place] [address] 17599- 6384 07 Mar, 2017 Type 2 diabetes mellitus with unspecified complications E11.8 ; Vertigo R42 ; Polydipsia R63.1 ; Polyuria R35.8 ; Hypothyroidism ( acquired) E03.9 ; Abnormal urinalysis R82.90 and Dysthymia F34.1 [place] [id number] [place] [address] 72815- 9320 05 Mar, 2017 Coronary artery disease of big sandy artery with stable angina pectoris, unspecified whether big sandy or transplanted heart I25.118 ; Systolic CHF, chronic I50.22 ; Hyperlipemia, mixed E78.2 and Essential hypertension I10 [facility] [address] [id number] Feb, Dental caries K02.9 [place] [id number] [place] [address] 41083- 8767 Feb, Type 2 diabetes mellitus with diabetic neuropathy, unspecified E11.40 [place] [id number] [place] [address] 88652- 5598 Dec, Left shoulder pain M25.512 [place] [id number] [place] [address] 47966- 5729 Dec, [place] [address] 53821- 1483 Dec, Type 2 diabetes mellitus with unspecified complications E11.8 [facility] [address] [id number] Dec, Dental examination Z01.20 [place] [id number] [place] [address] 62523- 7565 Dec, Type 2 diabetes mellitus with diabetic neuropathy, unspecified E11.40 [facility] [id number] [place] [address] 71207- 5141 Dec, [place] [id number] [place] [address] 82150- 8556 Dec, Type 2 diabetes mellitus with diabetic neuropathy, unspecified E11.40 [facility] [id number] [place] [address] 62084- 0509 November, Left shoulder pain M25.512 [place] [id number] [place] [address] 68898- 8437 November, [place] [id number] [place] [address] 17038- 7657 November, Type 2 diabetes mellitus with unspecified complications E11.8 and Dysuria R30.0 [place] [id number] [place] [address] 97168- 5039 Oct, Left shoulder pain M25.512 [place] [id number] [place] [address] 53560- 0874 Sep, Left shoulder pain M25.512 [place] [id number] [place] [address] 30175- 4399 Sep, Pre-op testing Z01.818 [place] [id number] [place] [address] 80330- 7360 Sep, Pre-op testing Z01.818 [place] [id number] [place] [address] 98508- 2155 Sep, Pre-op testing Z01.818 [place] [id number] [place] [address] 68215- 5275 Sep, Pre-op testing Z01.818 and Mouth pain K13.79 [place] [address] 58200- 7830 Sep, Left shoulder pain M25.512 [place] [address] 77973- 3247 08 Aug, 2016 Other eczema L30.8 [place] [address] 24945- 8678 06 Aug, 2016 PVD (peripheral vascular disease) I73.9 ; Type 2 diabetes mellitus with unspecified complications E11.8 ; Acute cystitis with hematuria N30.01 ; Other eczema L30.8 ; Dysuria R30.0 and Left shoulder pain M25.512 [facility] [address] 18646 -8976 Jul, Otalgia of right ear H92.01 and Blood in ear canal, right H92.21 [place] [address] 35416- 2413 Jul, Arthralgia, unspecified joint M25.50 ; PVD (peripheral vascular disease) I73.9 and Neuropathy G62.9 [place] [address] 02867- 5118 Jul, [place] [address] 04041- 5864 Jun, Medicare annual wellness visit, initial Z00.00 ; Cervicalgia M54.2 ; Radiculopathy of cervical region M54.12 ; Encounter for immunization Z23 ; Type 2 diabetes mellitus with unspecified complications E11.8 and Essential hypertension I10 [place] [id number] [place] [address] 77980- 5191 Jun, [place] [address] 92190- 1170 14 May, 2016 Hypothyroidism (acquired) E03.9 [place] [address] 88893- 7164 May, Dysuria R30.0 ; Essential hypertension I10 ; Hypothyroidism (acquired) E03.9 and PVD (peripheral vascular disease) I73.9 [facility] [id number] [place] [address] 85099 -4893 May, Burning with urination R30.0 and Acute cystitis with hematuria N30.01 [facility] [id number] [place] [address] 83401- 2515 May, Dental examination Z01.20 [facility] [id number] [place] [address] 10468- 6301 May, Hypothyroidism (acquired) E03.9 [facility] [id number] [place] [address] 78960- 8215 Feb, [facility] [id number] [place] [address] 17269- 5871 Feb, Status post amputation of toe of left foot Z89.422 ; PVD ( peripheral vascular disease) I73.9 ; Type 2 diabetes mellitus with unspecified complications E11.8 and Essential hypertension I10 [facility] [id number] [place] [address] 35781- 5009 Jan, [facility] [id number] [place] [address] 53249- 5171 Jan, Hypothyroidism (acquired) E03.9 [facility] [id number] [place] [address] 60192- 9071 Jan, [facility] [id number] [place] [address] 66295- 9624 Jan, [facility] [id number] [place] [address] 36279- 8224 Jan, Type 2 diabetes mellitus with unspecified complications E11.8 ; Status post amputation of toe of left foot Z89.422 and Essential ( primary) hypertension I10 [facility] [id number] [place] [address] 09611- 5228 Jan, Type 2 diabetes mellitus with unspecified complications E11.8 ; Status post amputation of toe of left foot Z89.422 ; Essential hypertension I10 and PVD (peripheral vascular disease) I73.9 [place] [id number] [place] [address] 82905- 6230 Jan, [facility] [id number] [place] [address] 97384- 7078 Jan, [facility] [id number] [place] [address] 04774- 5469 Jan, [place] [id number] [place] [address] 40407- 4886 Jan, Weakness R53.1 ; Fatigue, unspecified type R53.83 ; PVD ( peripheral vascular disease) I73.9 ; Acute osteomyelitis of other site M86.18 ; Type 2 diabetes mellitus with diabetic neuropathy, unspecified E11.40 and meterman 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.4 [place] [id number] [place] [address] 22089- 0915 Dec, [place] [id number] [place] [address] 23331- 5139 Dec, Type 2 diabetes mellitus with unspecified complications E11.8 [place] [id number] [place] [address] 25801- 0870 Dec, [place] [id number] [place] [address] 17672- 5217 Dec, Pressure ulcer, unspecified pressure ulcer stage L89.90 and Type 2 diabetes mellitus with unspecified complications E11.8 [facility] [id number] [place] [address] 63349 -0190 Dec, Toe infection L08.9 [place] [id number] [place] [address] 26320- 2767 November, Dental caries K02.9 [facility] [id number] [place] [address] 06687- 7842 November, [place] [id number] [address]- 7832 November, Dental examination Z01.20 [place] [id number] [place] [address] 77682- 6656 Sep, Lipoma of torso D17.1 and Thoracic neuritis M54.14 [facility] [id number] [place] [address] 80466- 6461 Sep, [facility] [id number] [place] [address] 76528- 6952 Aug, [facility] [id number] [place] [address] 75245 -0664 Jul, Dysuria R30.0 and UTI (urinary tract infection) N39.0 [place] [id number] [place] [address] 46119- 7539 Jun, Left shoulder pain M25.512 [place] [id number] [place] [address] 84162- 6707 May, Shoulder pain, left M25.512 [place] [id number] [place] [address] 87356- 8137 May, [facility] [id number] [place] [address] 43360- 2410 May, [place] [id number] [place] [address] 03597- 9725 May, Left shoulder pain M25.512 [facility] [id number] [place] [address] 75131- 3483 May, [facility] [id number] [place] [address] 98100- 2371 Apr, Encounter for immunization Z23 [facility] [id number] [place] [address] 22338- 0389 08 Apr, 2015 Urinary tract infection, site not specified N39.0 ; Hypotension, unspecified I95.9 ; Type 2 diabetes mellitus with unspecified complications E11.8 and Generalized edema R60.1 [facility] [id number] [place] [address] 85107- 1021 Apr, [facility] [id number] [place] [address] 98307- 3136 Mar, Diabetes with other specified manifestations, type II or unspecified type, not stated as uncontrolled 250.80 [facility] [address] 035333- 3349 Feb, Gout 274.9 and Diabetes 250.00 [facility] [id number] [place] [address] 07848- 2569 Jan, [facility] [id number] [place] [address] 63620- 5602 November, CAD (coronary artery disease) 414.00 and CHF (congestive heart failure) 428.0 [facility] [id number] [place] [address] 49534- 9956 Oct, [facility] [id number] [place] [address] 12137- 9439 Oct, [facility] [id number] [place] [address] 76085- 1560 Oct, [facility] [id number] [place] [address] 84009- 6681 Sep, [facility] [id number] [place] [address] 27254- 2823 Sep, [facility] [id number] [place] [address] 92149- 3325 Sep, [facility] [id number] [place] [address] 833992- 8844 Sep, [facility] [id number] [place] [address] 911460- 8018 Aug, [facility] [id number] [place] [address] 29285- 1577 Aug, [facility] [place] [facility] [address] [id number] [place] [address]- 4826 Aug, [facility] [place] [facility] [address] [id number] [place] [address]- 4046 Aug, 2014 [facility] [place] [facility] [address] [id number] [place] [address]- 5753 Aug, 2014 [facility] [place] [facility] [address] [id number] [place] [address]- 8695 Aug, 2014 [facility] [place] [facility] [address] [id number] [place] [address]- 1567 Aug, [facility] [place] [facility] [address] [id number] [place] [address]- 6231 Aug, [facility] [place] [facility] [address] [facility] [id number] [place] [address]- 8244 Jul, [facility] [place] [facility] [address] [id number] [place] [address]- 2689 Jul, [facility] [place] [facility] [address] [id number] [place] [address]- 6667 Jul, [facility] [place] [facility] [address] [facility] [id number] [place] [address]- 4888 Jul, [facility] [place] [facility] [address] [id number] [place] [address]- 3173 Jul, [facility] [place] [facility] [address] [id number] [place] [address]- 9580 Jul, [facility] [place] [facility] [address] [id number] [place] [address]- 9892 Jul, [facility] [place] [facility] [address] [id number] [place] [address]- 6281 Jul, [facility] [place] [facility] [address] [facility] [id number] [place] [address]- 8877 Jul, [facility] [place] [facility] [address] [id number] [place] [address]- 6048 Jul, [facility] [place] [facility] [address] [id number] [place] [address]- 9477 Jun, [facility] [place] [facility] [address] [id number] [place] [address]- 7537 Jun, [facility] [place] [facility] [address] [id number] [place] [address]- 0484 Jun, [facility] [place] [facility] [address] [id number] [place] [address]- 6453 Jun, [facility] [place] [facility] [address] [id number] [place]- 0380 Jun, [facility] [place] [facility] [address] [id number] [place] 5355 Jun, [facility] [place] [facility] [address] [id number] [place] [address]- 3361 Jun, [facility] [place] [facility] [address] [id number] [place] 3084 Jun, [facility] [place] [facility] [address] [id number] [place] [address]- 1197 Jun, [facility] [place] [facility] [address] [id number] [place] [address]- 9480 Jun, [facility] [place] [facility] [address] [id number] [place] [address]- 3990 May, [facility] [place] [facility] [address] [id number] [place] [address]- 7356 May, [facility] [place] [facility] [address] [id number] [place] [address]- 3668 Mar, [facility] [place] [facility] [address] [id number] [place] [address]- 6486 18 Mar, 2014 [facility] [place] [facility] [address] [id number] [place] [address]- 3404 Mar, [facility] [place] [facility] [address] [id number] [place] [address]- 6954 Mar, [facility] [place] [facility] [address] [id number] [place] [address]- 8278 Feb, [facility] [place] [facility] [address] [id number] [place] [address]- 5585 Feb, [facility] [place] [facility] [address] [id number] [place] [address]- 0633 Feb, [facility] [place] [facility] [address] [id number] [place] [address]- 7716 Jan, [facility] [place] [facility] [address] [id number] [place] [address]- 1874 Jan, [facility] [place] [facility] [address] [id number] [place] [address]- 6207 Jan, [facility] [place] [facility] [address] [id number] [place] [address]- 9266 Jan, [facility] [place] [facility] [address] [id number] [place] [address]- 5947 Jan, [facility] [place] [facility] [address] [id number] [place] [address]- 9786 Jan, [facility] [place] [facility] [address] [id number] [place] [address] Jan, [facility] [place] [facility] [address] [id number] [place] [address] Jan, [facility] [place] [facility] [address] [id number] [place] [address] Jan, [facility] [place] [facility] [address] [id number] [place] [address] Jan, [facility] [place] [facility] [address] [id number] [place] [address] Dec, [facility] [place] [facility] [address] [id number] [place] [address] Dec, [facility] [address] [id number] [place] [address] November, [facility] [place] [facility] [address] [id number] [place] [address] November, [facility] [place] [facility] [address] [id number] [place] [address] November, [facility] [place] [facility] [address] [id number] [place] [address] November, [facility] [place] [facility] [address] [id number] [place] [address] November, [facility] [place] [facility] [address] [id number] [place] [address] November, [facility] [address] [id number] [place] [address] November, [facility] [address] [id number] [place] [address] Oct, [facility] [place] [facility] [address] [id number] [place] [address] Oct, [facility] [address] [id number] [place] [address] Sep, [facility] [place] [facility] [address] [id number] [place] [address] Sep, [facility] [place] [facility] [address] [id number] [place] [address] Sep, [facility] [place] [facility] [address] [id number] [place] [address] Sep, [facility] [place] [facility] [address] [id number] [place] [address] Sep, [facility] [facility] [address] [id number] [place] [address] Sep, [facility] [place] [facility] [address] [id number] [place] [address] Sep, [facility] [place] [facility] [address] [id number] [place] [address] Sep, [facility] [place] [facility] [address] [id number] [place] [address]79 Sep, [facility] [place] [facility] [address] [id number] [place] [address] 17[address] Sep, [facility] [place] [facility] [address] [id number] [place] [address] Aug, [facility] [place] [facility] [address] [id number] [place] [address] Aug, [facility] [place] [facility] [address] [id number] [place] [address] Jul, [facility] [place] [facility] [address] [id number] [place] [address] 7146 Jul, [facility] [place] [facility] [address] [id number] [place] [address] 0[address] Jul, [facility] [place] [facility] [address] [id number] [place] [address] 3518 Jul, [facility] [address] [id number] [place] [address] 8295 Jul, [facility] [place] [facility] [address] [id number] [place] [address] Jul, [facility] [place] [facility] [address] [id number] [place] [address]- 6409 Jun, [facility] [place] [facility] [address] [id number] [place] [address] 3499 Jun, [facility] [place] [facility] [address] [id number] [place] [address] Jun, [facility] [place] [facility] [address] [id number] [place] [address] 4[address] Jun, [facility] [place] [facility] [address] [id number] [place] [address]- 4273 May, [facility] [place] [facility] [address] [id number] [place] [address]- 4964 14 May, 2013 [facility] [place] [facility] [address] [id number] [place] [address] 6883 May, [facility] [place] [facility] [address] [id number] [place] [address]- 8294 May, [facility] [place] [facility] [address] [id number] [place] [address]- 0730 May, [facility] [place] [facility] [address] [id number] [place] [address]- 7037 Apr, [facility] [place] [facility] [address] [id number] [place] [address]- 3752 Apr, [facility] [place] [facility] [address] [id number] [place] [address]- 9779 Apr, [facility] [place] [facility] [address] [id number] [place] [address]- 0706 Apr, [facility] [place] [facility] [address] [id number] [place] [address]- 6956 Apr, [facility] [place] [facility] [address] [id number] [place] [address]- 9304 Apr, [facility] [place] [address] [id number] [place] [address]- 77[address] Apr, [facility] [place] [address] [id number] [place] [address]- 2576 Apr, [facility] [place] [facility] [address] [id number] [place] [address]- 6094 Apr, [facility] [place] [facility] [address] [id number] [place] [address]- 0461 Apr, [facility] [place] [address] [id number] [place] [address]- 5892 Apr, [facility] [place] [facility] [address] [id number] [place] [address]- 6907 Apr, [facility] [address] [id number] [place] [address] 2546 Mar, [facility] [address] [id number] [place] [address]- 2667 Mar, [facility] [place] [facility] [address] [id number] [place] [address] 2541 Feb, [facility] [address] [id number] [place] [address] 1146 Jan, [facility] [place] [address] [id number] [place] [address]- 0250 Jan, [facility] [place] [facility] [address] [id number] [place] [address]- 1465 Jan, [facility] [place] [address] [id number] [place] [address]- 3456 Jan, [facility] [address] [id number] [place] [address]- 6392 Dec, [facility] [address] [id number] [place] [address]- 5519 Dec, [facility] [address] [id number] [place] [address]- 0235 Dec, [facility] [address] [id number] [place] [address]- 3133 Dec, [facility] [address] [id number] [place] [address]- 3876 Dec, [facility] [address] [id number] [place] [address]- 2546 Dec, [facility] [address] [id number] [place] [address]- 4680 Dec, [facility] [address] [id number] [place] [address]- 3923 November, [facility] [address] [id number] [place] [address]- 3207 November, [facility] [address] [id number] [place] [address] November, [facility] [address] [id number] [place] [address]- 8016 Oct, [facility] [address] [id number] [place] [address]- 5805 Oct, [facility] [address] [id number] [place] [address]- 0605 Oct, [facility] [address] [id number] [place] [address]- 6616 Oct, [facility] [address] [id number] [place] [address]- 2394 Oct, [facility] [address] [id number] [place] [address]- 3784 Sep, [facility] [address] [id number] [place] [address]- 0115 Sep, [facility] [address] [id number] [place] [address]- 9448 Sep, [facility] [address] [id number] [place] [address] 6[address] Sep, [facility] [address] [id number] [place] [address]- 6025 Aug, [facility] [address] [id number] [place] [address] Aug, [facility] [address] [id number] [place] [address]- 6159 Aug, [facility] [address] [id number] [place] [address]- 2804 Aug, [facility] [address] [id number] [place] [address]- 6088 Jul, [facility] [address] [id number] [place] [address]- 9993 Jul, [facility] [address] [id number] [place] [address]- 7489 Jun, [facility] [address] [id number] [place] [address]- 3403 Jun, [facility] [address] [id number] [place] [address]- 9344 Jun, [facility] [address] [id number] [place] [address]- 2910 Jun, [facility] [address] [facility] [id number] [place] [address]- 3421 May, [facility] [address] [id number] [place] [address]- 7484 May, [facility] [address] [facility] [id number] [place] [address]- 8269 May, [facility] [address] [facility] [id number] [place] [address]- 1922 May, [facility] [address] [facility] [id number] [place] [address]- 0453 Apr, [facility] [address] [id number] [place] [address]- 2796 Apr, [facility] [address] [id number] [place] [address]- 6135 Apr, [facility] [address] [facility] [id number] [place] [address]- 1314 Apr, [facility] [address] [facility] [id number] [place] [address]- 8896 Apr, [facility] [address] [id number] [place] [address]- 8845 Apr, [facility] [address] [id number] [place] [address]- 8610 Apr, [facility] [address] [id number] [place] [address]- 1498 Apr, [facility] [address] [id number] [place] [address]- 9858 Apr, [facility] [address] [id number] [place] [address]- 0408 Apr, [facility] [address] [id number] [place] [address]- 8714 Feb, [facility] [address] [id number] [place] [address]- 2484 Feb, [facility] [address] [id number] [place] [address]- 3846 Jan, [facility] [address] [id number] [place] [address]- 5602 Jan, [facility] [address] [id number] [place] [address]- 9398 Jan, [facility] [address] [id number] [place] [address]- 7085 Jan, [facility] [address] [id number] [place] [address]- 0597 Jan, [facility] [address] [id number] [place] [address]- 7496 Jan, [facility] [address] [id number] [place] [address]- 8397 Dec, [facility] [address] [id number] [place] [address]- 1908 November, [facility] [address] [id number] [place] [address]- 5126 November, [facility] [address] [id number] [place] [address]- 0976 November, [facility] [address] [id number] [place] [address]- 7996 Sep, [facility] [address] [id number] [place] [address]- 1716 Sep, [facility] [address] [id number] [place] [address]- 0369 Sep, [facility] [address] [id number] [place] [address]- 5626 Sep, [facility] [address] [id number] [place] [address]- 0964 Sep, [facility] [address] [facility] [id number] [place] [address]- 3592 Sep, [facility] [address] [id number] [place] [address]- 8650 Aug, [facility] [address] [id number] [place] [address]- 1676 Aug, [facility] [address] [id number] [place] [address]- 1191 Aug, [facility] [address] [id number] [place] [address]- 8989 Jul, [facility] [address] [id number] [place] [address]- 5857 Jul, [facility] [address] [id number] [place] [address]- 2626 Jul, [facility] [address] [id number] [place] [address]- 5216 Jul, [facility] [address] [facility] [id number] [place] [address]- 1972 Jun, [facility] [address] [id number] [place] [address]- 1085 08 Jun, 2011 [facility] [address] [id number] [place] [address]- 9896 Jun, [facility] [address] [id number] [place] [address]- 9526 Jun, [facility] [address] [id number] [place] [address]- 9136 Jun, [facility] [address] [id number] [place] [address]- 1259 Jun, [facility] [address] [id number] [place] [address]- 9975 May, [facility] [address] [id number] [place] [address]- 4991 May, [facility] [address] [id number] [place] [address]- 6772 May, [facility] [address] [id number] [place] [address]- 6220 Apr, [facility] [address] [id number] [place] [address]- 3072 Jan, [facility] [address] [id number] [place] [address]- 5890 Jun, [facility] [address] [id number] [place] [address]- 5795 Jun, [facility] [address] [id number] [place] [address] 2546 15 Jun, 2010 [facility] [address] [id number] [place] [address] 2546 Jun, [facility] [address] [id number] [place] [address]- 2540 15 Jun, 2010 [facility] [address] [id number] [place] [address]- 7228 13 Jun, 2010 [facility] [address] [id number] [place] [address]- 5096 13 Jun, 2010 [facility] [address] [id number] [place] [address]- 8316 21 Apr, 2010 [facility] [address] [facility] [id number] [place] [address] 2546 17 Feb, 2010 [facility] [address] [id number] [place] [address] 2546 15 Aug, 2009 [facility] [address] [id number] [place] [address]- 1976 18 Jul, 2009 [facility] [address] [id number] [place] [address] 2546 11 Jul, 2009 [facility] [address] [id number] [place] [address]- 8125 29 Jun, 2009 [facility] [address] [id number] [place] [address]- 3954 28 Jun, 2009 [facility] [address] [id number] [place] [address]- 3327 28 Jun, 2009 [facility] [address] [id number] [place] [address]- 8933 22 Jun, 2009 [facility] [address] [id number] [place] [address]- 0137 16 Jun, 2009 [facility] [address] [id number] [place] [address] 2546 09 Jun, 2009 [facility] [address] [id number] [place] [address] 2546 Jun, [facility] [address] [facility] [id number] [place] [address] 2545 30 May, 2009 [facility] [address] [facility] [id number] [place] [address] 2546 May, [facility] [place] [facility] [address] [id number] [address] May, [facility] [address] [id number] [place] [address]- 0108 May, [facility] [id number] [address]- 9632 May, [facility] [id number] [address]- 8480 May, [facility] [id number] [address]- 5609 May, [facility] [id number] [place] [address]- 4854 Apr, [facility] [id number] [address]- 9625 Apr, [facility] [id number] [address]- 6997 Jan, [facility] [address] [id number] [place] [address]- 5269 Oct, IMMUNIZATIONS No Known Immunizations SOCIAL HISTORY Never Assessed REASON FOR VISIT Order for CTA PLAN OF CARE VITAL SIGNS MEDICATIONS Unknown Medications RESULTS Name Result Date Reference Range CT Scan : Angio Head w/o & w/ Contrast 2017-04-09 CT Scan : Angio Neck w/o & w/ Contrast 2017-04-09 PROCEDURES No Known procedures INSTRUCTIONS MEDICATIONS ADMINISTERED [...]
--- OUTSIDE RECORDS SUMMARY | 2018-11-09 13:33 | XMS REPORT ---
Author Author PRABHA HILL [facility] Address [address] [place] [address] Care Team Providers Care Centrifugal Spinner Name Role Phone PRABHA HILL Unavailable PROBLEMS Type Condition ICD9-CM Code AET05-ZC Code Onset Dates Condition Status SNOMED Code Problem Hyperlipemia, mixed E78.2 Active 459109596 Problem Hypoglycemia E16.2 Active 212248237 Problem Hypernatremia E87.0 Active 93505830 Problem Neurogenic orthostatic hypotension G90.3 Active 528343546 Problem Dementia with Lewy bodies G31.83 Active 173147830 Problem Mixed stress and urge urinary incontinence N39.46 Active 630263926 Problem Coronary artery disease involving [place] coronary artery of [place] heart without angina pectoris I25.10 Active 2278864881966 Problem Unsteady gait R26.81 Active 38301715 Problem Hallucinations R44.3 Active 4114934 Problem Parkinsons disease G20 Active 69654467 Problem Episodic cluster headache, not intractable G44.019 Active 840364600 Problem Type 2 diabetes mellitus with unspecified complications E11.8 Active 54696159 Problem PVD (peripheral vascular disease) I73.9 Active 492705821 Problem Dementia in other diseases classified elsewhere without behavioral disturbance F02.80 Active 016762759 Problem Dysuria R30.0 Active 26599701 Problem Hypothyroidism (acquired) E03.9 Active 821902306 Problem Neuropathy G62.9 Active 378512564 Problem Status post amputation of toe of left foot Z89.422 Active 112843307 Problem Dysthymia F34.1 Active 06583717 Problem Essential hypertension I10 Active 95825210 Problem Polydipsia R63.1 Active 49455281 ALLERGIES No Information ENCOUNTERS Encounter Location Date Diagnosis [facility] [address] [facility] [id number] [address] Dec, [facility] [id number] [place] [address] 59923- 9067 November, [facility] [id number] [place] [address] 36369- 3834 November, [facility] [id number] [place] [address] 25711- 2863 November, Left shoulder pain M25.512 [facility] [id number] [place] [address] 07975- 4100 Oct, [facility] [id number] [place] [address] 72605 -2277 Oct, [facility] [place] [id number] [place] [address] 13553- 3430 Oct, Parkinsons disease G20 [facility] [id number] [place] [address] 08824 -8759 Oct, Acute cystitis without hematuria N30.00 and Viral upper respiratory tract infection J06.9 [facility] [place] [id number] [place] [address] 67426- 6693 Oct, [facility] [id number] [place] [address] 94810- 7091 Oct, Type 2 diabetes mellitus with unspecified complications E11.8 [facility] [id number] [place] [address] 79115- 2293 Oct, Left shoulder pain M25.512 [facility] [id number] [place] [address] 76178- 9466 Oct, Type 2 diabetes mellitus with unspecified complications E11.8 ; Dysuria R30.0 and Neurogenic orthostatic hypotension G90.3 [facility] [place] [id number] [place] [address] 15493- 1933 Sep, Left shoulder pain M25.512 [facility] [id number] [place] [address] 52567- 2619 Sep, Medicare annual wellness visit, initial Z00.00 ; Parkinsons disease G20 ; Type 2 diabetes mellitus with unspecified complications E11.8 ; Essential hypertension I10 ; Coronary artery disease involving [place] coronary artery of [place] heart without angina pectoris I25.10 ; Hypothyroidism (acquired ) E03.9 ; PVD (peripheral vascular disease) I73.9 ; Dysthymia F34.1 ; Hyperlipemia, mixed E78.2 ; Neuropathy G62.9 ; Encounter for immunization Z23 ; Encounter for other screening for malignant neoplasm of breast Z12.39 and Mixed stress and urge urinary incontinence N39.46 [place] [address] 90431- 8123 Aug, Parkinsons disease G20 [address] 22145- 8781 Aug, Type 2 diabetes mellitus with unspecified complications E11.8 ; Left shoulder pain M25.512 and Hypotensive episode I95.9 [place] [address] 06812- 0666 Aug, Coronary artery disease involving [place] coronary artery of [place] heart without angina pectoris I25.10 [place] [address] 94816- 8238 07 Aug, 2017 Type 2 diabetes mellitus with unspecified complications E11.8 [place] [address] 40441- 6101 Jul, Callus of foot L84 [place] [address] 62654- 8877 Jul, [place] [address] 11678- 7193 Jul, Callus of foot L84 ; Episodic cluster headache, not intractable G44.019 ; Type 2 diabetes mellitus with unspecified complications E11.8 and Parkinsons disease G20 [place] [address] 66919- 5804 Jul, [place] [address] 92188- 8711 Jul, [place] [id number] [place] [address] 71837- 6459 Jun, Type 2 diabetes mellitus with unspecified complications E11.8 ; Unsteady gait R26.81 ; Forgetfulness R68.89 and Hallucinations R44.3 [facility] [place] [id number] [place] [address] 63947- 8744 Jun, [place] [address] 51842- 5355 Jun, Left shoulder pain M25.512 [facility] [place] [id number] [place] [address] 35936- 1677 May, Hypernatremia E87.0 and Polydipsia R63.1 [facility] [place] [id number] [place] [address] 13758- 9193 May, Hypernatremia E87.0 and Polydipsia R63.1 [facility] [place] [id number] [place] [address] 13074- 2633 May, Hypoglycemia E16.2 ; Dysuria R30.0 ; Unsteadiness on feet R26.81 ; Forgetfulness R68.89 ; Type 2 diabetes mellitus with unspecified complications E11.8 and Yeast infection involving the vagina and surrounding area B37.3 [place] [id number] [place] [address] 64172- 4874 May, Acute cystitis without hematuria N30.00 [facility] [id number] [place] [address] 67851 -4480 Apr, Dysuria R30.0 and Acute cystitis without hematuria N30.00 [facility] [id number] [place] [address] 94788- 6149 Apr, Hypernatremia E87.0 and Polydipsia R63.1 [facility] [id number] [place] [address] 78857- 4359 Apr, Vertigo R42 and Type 2 diabetes mellitus with unspecified complications E11.8 [place] [id number] [place] [address] 05756- 0762 20 Mar, 2017 [place] [address] 99481- 2085 19 Mar, 2017 Left shoulder pain M25.512 [place] [address] 80779- 2160 13 Mar, 2017 Vertigo R42 [place] [address] 10965- 5018 12 Mar, 2017 Polydipsia R63.1 [place] [address] 46725- 6277 12 Mar, 2017 Polydipsia R63.1 [place] [address] 63040- 9263 11 Mar, 2017 Vertigo R42 [place] [address] 06773- 9523 07 Mar, 2017 Type 2 diabetes mellitus with unspecified complications E11.8 ; Vertigo R42 ; Polydipsia R63.1 ; Polyuria R35.8 ; Hypothyroidism ( acquired) E03.9 ; Abnormal urinalysis R82.90 and Dysthymia F34.1 [place] [id number] [place] [address] 23054- 2187 05 Mar, 2017 Coronary artery disease of [place] artery with stable angina pectoris, unspecified whether [place] or transplanted heart I25.118 ; Systolic CHF, chronic I50.22 ; Hyperlipemia, mixed E78.2 and Essential hypertension I10 [facility] [id number] [place] [address] [id number] Feb, Dental caries K02.9 [place] [id number] [place] [address] 93119- 0432 10 Feb, 2017 Type 2 diabetes mellitus with diabetic neuropathy, unspecified E11.40 [place] [address] 44958- 6438 Dec, Left shoulder pain M25.512 [facility] [id number] [place] [address] 76040- 7635 Dec, [facility] [id number] [place] [address] 23092- 3918 Dec, Type 2 diabetes mellitus with unspecified complications E11.8 [facility] [id number] [place] [address] [id number] Dec, Dental examination Z01.20 [facility] [id number] [place] [address] 95745- 8365 08 Dec, 2016 Type 2 diabetes mellitus with diabetic neuropathy, unspecified E11.40 [facility] [id number] [place] [address] 19749- 5225 Dec, [facility] [id number] [place] [address] 06838- 3053 Dec, Type 2 diabetes mellitus with diabetic neuropathy, unspecified E11.40 [facility] [id number] [place] [address] 67295- 3016 November, Left shoulder pain M25.512 [facility] [id number] [place] [address] 50499- 8977 November, [facility] [id number] [place] [address] 85618- 3480 November, Type 2 diabetes mellitus with unspecified complications E11.8 and Dysuria R30.0 [facility] [id number] [place] [address] 67285- 2566 Oct, Left shoulder pain M25.512 [facility] [id number] [place] [address] 41199- 9263 Sep, Left shoulder pain M25.512 [facility] [id number] [place] [address] 59502- 6312 Sep, Pre-op testing Z01.818 [facility] [id number] [place] [address] 05472- 8224 Sep, Pre-op testing Z01.818 [place] [address] 14003- 9576 Sep, Pre-op testing Z01.818 [place] [address] 23233- 5327 Sep, Pre-op testing Z01.818 and Mouth pain K13.79 [place] [address] 84959- 5298 Sep, Left shoulder pain M25.512 [place] [address] 00300- 8234 08 Aug, 2016 Other eczema L30.8 [place] [address] 25449- 4560 06 Aug, 2016 PVD (peripheral vascular disease) I73.9 ; Type 2 diabetes mellitus with unspecified complications E11.8 ; Acute cystitis with hematuria N30.01 ; Other eczema L30.8 ; Dysuria R30.0 and Left shoulder pain M25.512 [facility] [id number] [place] [address] 11958 -1681 Jul, Otalgia of right ear H92.01 and Blood in ear canal, right H92.21 [place] [id number] [place] [address] 26769- 8396 Jul, Arthralgia, unspecified joint M25.50 ; PVD (peripheral vascular disease) I73.9 and Neuropathy G62.9 [place] [id number] [place] [address] 07591- 5952 Jul, [place] [id number] [place] [address] 32484- 8659 Jun, Medicare annual wellness visit, initial Z00.00 ; Cervicalgia M54.2 ; Radiculopathy of cervical region M54.12 ; Encounter for immunization Z23 ; Type 2 diabetes mellitus with unspecified complications E11.8 and Essential hypertension I10 [facility] [id number] [place] [address] 61844- 5472 Jun, [facility] [id number] [place] [address] 44539- 8297 May, Hypothyroidism (acquired) E03.9 [facility] [id number] [place] [address] 57901- 9582 May, Dysuria R30.0 ; Essential hypertension I10 ; Hypothyroidism (acquired) E03.9 and PVD (peripheral vascular disease) I73.9 [facility] [id number] [place] [address] 70761 -7007 May, Burning with urination R30.0 and Acute cystitis with hematuria N30.01 [facility] [id number] [place] [address] 07912- 1490 May, Dental examination Z01.20 [facility] [id number] [place] [address] 76900- 9038 May, Hypothyroidism (acquired) E03.9 [facility] [id number] [place] [address] 94209- 0949 Feb, [facility] [id number] [place] [address] 56088- 8723 Feb, Status post amputation of toe of left foot Z89.422 ; PVD ( peripheral vascular disease) I73.9 ; Type 2 diabetes mellitus with unspecified complications E11.8 and Essential hypertension I10 [facility] [id number] [place] [address] 10935- 4181 Jan, [facility] [id number] [place] [address] 56379- 0690 Jan, Hypothyroidism (acquired) E03.9 [facility] [id number] [place] [address] 01680- 3598 Jan, [facility] [id number] [place] [address] 44186- 3194 Jan, [place] [id number] [place] [address] 57058- 6008 Jan, Type 2 diabetes mellitus with unspecified complications E11.8 ; Status post amputation of toe of left foot Z89.422 and Essential ( primary) hypertension I10 [place] [id number] [place] [address] 11079- 7364 Jan, Type 2 diabetes mellitus with unspecified complications E11.8 ; Status post amputation of toe of left foot Z89.422 ; Essential hypertension I10 and PVD (peripheral vascular disease) I73.9 [place] [id number] [place] [address] 71205- 1145 Jan, [place] [id number] [place] [address] 04801- 4111 Jan, [place] [id number] [place] [address] 15063- 3766 Jan, [place] [id number] [place] [address] 08500- 0142 Jan, Weakness R53.1 ; Fatigue, unspecified type R53.83 ; PVD ( peripheral vascular disease) I73.9 ; Acute osteomyelitis of other site M86.18 ; Type 2 diabetes mellitus with diabetic neuropathy, unspecified E11.40 and 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 [place] [address] [place] [address] 67045- 0312 Dec, [place] [id number] [place] [address] 26270- 8973 Dec, Type 2 diabetes mellitus with unspecified complications E11.8 [facility] [place] [id number] [place] [address] 53631- 7903 Dec, [place] [id number] [place] [address] 78931- 3886 Dec, Pressure ulcer, unspecified pressure ulcer stage L89.90 and Type 2 diabetes mellitus with unspecified complications E11.8 [facility] [id number] [place] [address] 30994 -7633 Dec, Toe infection L08.9 [facility] [id number] [place] [address] 23632- 4810 November, Dental caries K02.9 [place] [id number] [place] [address] 73989- 4968 November, [place] [id number] [place] [address] 61916- 4860 November, Dental examination Z01.20 [place] [id number] [place] [address] 09739- 4320 Sep, Lipoma of torso D17.1 and Thoracic neuritis M54.14 [place] [id number] [place] [address] 59285- 4319 Sep, [place] [id number] [place] [address] 67254- 5436 Aug, [facility] [id number] [place] [address] 34718 -1248 Jul, Dysuria R30.0 and UTI (urinary tract infection) N39.0 [place] [id number] [place] [address] 47502- 1874 Jun, Left shoulder pain M25.512 [place] [id number] [place] [address] 15465- 4369 May, Shoulder pain, left M25.512 [place] [place] [id number] [place] [address] 46878- 7241 May, [place] [id number] [place] [address] 76935- 2233 May, [place] [id number] [place] [address] 33631- 1305 May, Left shoulder pain M25.512 [facility] [id number] [place] [address] 23351- 7949 May, [facility] [id number] [place] [address] 37396- 1998 Apr, Encounter for immunization Z23 [place] [id number] [place] [address] 48601- 4894 Apr, Urinary tract infection, site not specified N39.0 ; Hypotension, unspecified I95.9 ; Type 2 diabetes mellitus with unspecified complications E11.8 and Generalized edema R60.1 [place] [address] 34156- 2285 Apr, [place] [id number] [place] [address] 26733- 3846 Mar, Diabetes with other specified manifestations, type II or unspecified type, not stated as uncontrolled 250.80 [place] [address] 26649- 3047 Feb, Gout 274.9 and Diabetes 250.00 [place] [id number] [place] [address] 11535- 8762 Jan, [place] [id number] [place] [address] 90502- 0497 November, CAD (coronary artery disease) 414.00 and CHF (congestive heart failure) 428.0 [place] [id number] [place] [address] 33028- 0962 Oct, [facility] [id number] [place] [address] 88895- 2881 Oct, [facility] [id number] [place] [address] 18634- 9506 Oct, [facility] [id number] [place] [address] 09786- 2953 Sep, [facility] [address] 04099- 0679 Sep, [facility] [place] [facility] [address] [id number] [place] [address]- 6219 Sep, [facility] [place] [facility] [address] [id number] [place] [address]- 5430 Sep, [facility] [place] [facility] [address] [facility] [id number] [place] [address]- 2746 Aug, 2014 [facility] [place] [facility] [address] [id number] [place] [address]- 8376 Aug, 2014 [facility] [place] [facility] [address] [id number] [place] [address]- 2395 Aug, 2014 [facility] [place] [facility] [address] [facility] [id number] [place] [address]- 4019 Aug, 2014 [facility] [place] [facility] [address] [facility] [id number] [place] [address]- 8552 Aug, 2014 [facility] [place] [facility] [address] [facility] [id number] [place] [address]- 8734 Aug, [facility] [place] [facility] [address] [facility] [id number] [place] [address]- 1373 Aug, [facility] [place] [facility] [address] [facility] [id number] [place] [address]- 1549 Aug, [facility] [place] [facility] [address] [facility] [id number] [place] [address]- 3001 Jul, [facility] [place] [facility] [address] [id number] [place] [address]- 3232 Jul, [facility] [place] [facility] [address] [facility] [id number] [place] [address]- 8336 Jul, [facility] [place] [facility] [address] [facility] [id number] [place] [address]- 5496 Jul, [facility] [place] [facility] [address] [facility] [id number] [place] [address]- 7990 Jul, [facility] [place] [facility] [address] [id number] [place] [address]- 2253 Jul, [facility] [place] [facility] [address] [id number] [place] [address]- 3300 Jul, [facility] [place] [facility] [address] [id number] [place] [address]- 6813 Jul, [facility] [place] [facility] [address] [id number] [place] [address]- 3164 Jul, [facility] [place] [facility] [address] [id number] [place] [address]- 9071 Jul, [facility] [place] [facility] [address] [id number] [place] [address]- 8013 Jun, [facility] [place] [facility] [address] [id number] [place] [address]- 6432 Jun, [facility] [place] [facility] [address] [id number] [place] [address]- 6697 Jun, [facility] [place] [facility] [address] [id number] [place] [address]- 9634 Jun, [facility] [place] [facility] [address] [id number] [place] [address]- 7610 Jun, [facility] [place] [facility] [address] [id number] [place] [address]- 7733 Jun, [facility] [place] [facility] [address] [id number], [place] [address]- 3842 Jun, [facility] [place] [facility] [address] [id number] [place] [address]- 4298 Jun, [facility] [place] [facility] [address] [id number] [place] [address]- 5897 Jun, [facility] [place] [facility] [address] [id number] [place] [address] Jun, [facility] [place] [facility] [address] [id number], [place] [address] 14 May, 2014 [facility] [place] [facility] [address] [id number] [place] [address] 14 May, 2014 [facility] [place] [facility] [address] [id number] [place] [address] 18 Mar, 2014 [facility] [place] [facility] [address] [id number] [place] [address] 18 Mar, 2014 [facility] [place] [facility] [address] [id number] [place] [address] Mar, [facility] [place] [facility] [address] [id number] [place] [address] Mar, [facility] [place] [facility] [address] [id number] [place] [address] Feb, [facility] [place] [facility] [address] [id number] [place] [address] Feb, [facility] [place] [facility] [address] [id number] [place] [address] Feb, [facility] [place] [facility] [address] [id number] [place] [address] Jan, [facility] [place] [facility] [address] [id number] [place] [address] Jan, [facility] [place] [facility] [address] [id number] [place] [address] Jan, [facility] [place] [facility] [address] [id number] [place] [address] Jan, [facility] [place] [facility] [address] [id number] [place] [address] Jan, [facility] [place] [facility] [address] [id number] [place] [address] Jan, [facility] [place] [facility] [address] [id number] [place] [address] Jan, [facility] [place] [facility] [address] [id number] [place] [address] Jan, [facility] [place] [facility] [address] [id number] [place] [address] Jan, [facility] [place] [facility] [address] [id number] [place] [address] Jan, [facility] [place] [facility] [address] [id number] [place] [address] Dec, [facility] [place] [facility] [address] [id number] [place] [address] Dec, [facility] [place] [facility] [address] [id number] [place] [address] November, [facility] [place] [facility] [address] [id number] [place] [address] 7974 November, [facility] [place] [facility] [address] [id number] [place] [address] 39[address] November, [facility] [place] [facility] [address] [id number] [place] [address] 3436 November, [facility] [place] [facility] [address] [id number] [place] [address]24 November, [facility] [place] [facility] [address] [id number] [place] [address]184 November, [facility] [place] [facility] [address] [id number] [place] [address]- 4790 November, [facility] [place] [facility] [address] [id number] [place] [address] 4770 Oct, [facility] [place] [facility] [address] [id number] [place] [address] 4098 Oct, [facility] [place] [facility] [address] [id number] [place] [address]- [address] Sep, [facility] [place] [facility] [address] [id number] [place] [address]- 8148 Sep, [facility] [place] [facility] [address] [id number] [place] [address]- 3616 Sep, [facility] [place] [facility] [address] [id number] [place] [address]- 1662 Sep, [facility] [place] [facility] [address] [id number] [place] [address]- 4658 Sep, [facility] [place] [facility] [address] [id number] [place] [address]- 5657 Sep, [facility] [place] [facility] [address] [id number] [place] [address]- 4232 Sep, [facility] [place] [facility] [address] [id number] [place] [address]- 4710 Sep, [facility] [place] [facility] [address] [id number] [place] [address]- 6476 Sep, [facility] [place] [facility] [address] [id number] [place] [address]- 2399 Sep, [facility] [place] [facility] [address] [id number] [place] [address]- [address] Aug, [facility] [place] [facility] [address] [id number] [place] [address]- 7480 Aug, [facility] [place] [facility] [address] [id number] [place] [address]- 8652 Jul, [facility] [place] [facility] [address] [id number] [place] [address]- 6439 Jul, [facility] [place] [facility] [address] [id number] [place] [address]- 4022 Jul, [facility] [place] [facility] [address] [id number] [place] [address]- 2035 Jul, [facility] [place] [facility] [address] [id number] [place] [address]- 8290 Jul, [facility] [place] [facility] [address] [id number] [place] [address]- 1820 Jul, [facility] [address] [id number] [place] [address]- 0835 Jun, [facility] [place] [facility] [address] [id number] [place] [address]- 3004 Jun, [facility] [address] [id number] [place] [address]- 2573 Jun, [facility] [place] [facility] [address] [id number] [place] [address]- 6035 Jun, [facility] [address] [id number] [place] [address]- 4906 May, [facility] [place] [facility] [address] [id number] [place] [address]- 7549 May, [facility] [address] [id number] [place] [address]- 0794 May, [facility] [address] [id number] [place] [address]- 9526 May, [facility] [place] [facility] [address] [id number] [place] [address]- 2640 May, [facility] [address] [id number] [place] [address]- 4066 Apr, [facility] [place] [facility] [address] [id number] [place] [address]- 0773 Apr, [facility] [place] [facility] [address] [id number] [place] [address]- 4611 Apr, [facility] [place] [facility] [address] [id number] [place] [address]- 8613 Apr, [facility] [place] [facility] [address] [id number] [place] [address]- 2777 Apr, [facility] [place] [facility] [address] [id number] [place] [address]- 5963 Apr, [facility] [place] [facility] [address] [id number] [place] [address]- 5095 Apr, [facility] [place] [facility] [address] [id number] [place] [address]- 7737 Apr, [facility] [place] [facility] [address] [id number] [place] [address]- 1205 Apr, [facility] [place] [facility] [address] [id number] [place] [address]- 1157 Apr, [facility] [place] [facility] [address] [id number] [place] [address]- 6344 Apr, [facility] [place] [facility] [address] [id number] [place] [address]- 0715 Apr, [facility] [place] [facility] [address] [id number] [place] [address] Mar, [facility] [place] [facility] [address] [id number] [place] [address]- 0672 Mar, [facility] [place] [facility] [address] [id number] [place] [address]- 0688 Feb, [facility] [place] [facility] [address] [id number], [place] [address]- [address] Jan, [facility] [place] [facility] [address] [id number] [place] [address]- 2990 Jan, [facility] [place] [facility] [address] [id number], [place] [address] 2549 Jan, [facility] [place] [facility] [address] [id number] [place] [address] 2544 Jan, [facility] [place] [facility] [address] [id number], [place] [address]- 2549 Dec, [facility] [place] [facility] [address] [id number], [place] [address] 2547 Dec, [facility] [place] [facility] [address] [id number], [place] [address]241 Dec, [facility] [address] [id number] [place] [address]- 8774 Dec, [facility] [place] [facility] [address] [id number] [place] [address]- 6514 Dec, [facility] [address] [id number] [place] [address]- 2536 Dec, [facility] [place] [facility] [address] [id number] [place] [address]- 7531 05 Dec, 2012 [facility] [address] [id number] [place] [address]- 4263 November, [facility] [place] [facility] [address] [id number] [place] [address]- 7155 November, [facility] [address] [id number] [place] [address]- 5757 November, [facility] [place] [facility] [address] [id number] [place] [address]- 1731 Oct, [facility] [address] [id number] [place] [address]- 0970 Oct, [facility] [place] [facility] [address] [id number] [place] [address]- 2293 Oct, [facility] [place] [facility] [address] [id number] [place] [address]- 8977 Oct, [facility] [place] [facility] [address] [id number] [place] [address]- 4176 Oct, [facility] [place] [facility] [address] [id number] [place] [address]- 2588 Sep, [facility] [place] [facility] [address] [id number] [place] [address]- 3587 Sep, [facility] [place] [facility] [address] [id number] [place] [address]- 5224 Sep, [facility] [place] [facility] [address] [id number] [place] [address]- 4424 Sep, [facility] [place] [facility] [address] [id number] [place] [address]- 6186 Aug, [facility] [place] [facility] [address] [id number] [place] [address] 2546 Aug, [facility] [place] [facility] [address] [id number] [place] [address] 2546 Aug, [facility] [place] [facility] [address] [id number] [place] [address] 2540 Aug, [facility] [place] [facility] [address] [id number] [place] [address]- 6503 Jul, [facility] [place] [facility] [address] [id number] [place] [address]- 2966 Jul, [facility] [place] [facility] [address] [id number] [place] [address]- 5974 Jun, [facility] [place] [facility] [address] [id number] [place] [address]- 7522 Jun, [facility] [place] [facility] [address] [id number] [place] [address]- 6854 Jun, [facility] [place] [facility] [address] [id number] [place] [address]- 3691 Jun, [facility] [place] [facility] [address] [id number] [place] [address]- 2544 May, [facility] [place] [facility] [address] [id number] [place] [address] 2542 May, [facility] [place] [facility] [address] [id number] [place] [address]- 2546 May, [facility] [place] [facility] [address] [id number] [place] [address]- 2541 May, [facility] [place] [facility] [address] [id number] [place] [address]- 9025 Apr, [facility] [place] [facility] [address] [id number] [place] [address]- 0446 Apr, [facility] [place] [facility] [address] [id number] [place] [address]- 3439 Apr, [facility] [place] [facility] [address] [id number] [place] [address]- 3651 Apr, [facility] [place] [facility] [address] [id number] [place] [address]- 0989 Apr, [facility] [place] [facility] [address] [id number] [place] [address] Apr, [facility] [place] [facility] [address] [id number] [place] [address]- 1233 Apr, [facility] [place] [facility] [address] [id number] [place] [address]- 8738 Apr, [facility] [place] [facility] [address] [id number] [place] [address]- 8989 Apr, [facility] [place] [facility] [address] [id number] [place] [address]- 2764 Apr, [facility] [place] [facility] [address] [id number] [place] [address]- 4163 Feb, [facility] [place] [facility] [address] [id number] [place] [address]- 8170 Feb, [facility] [place] [facility] [address] [id number], [place] [address]- 9496 Jan, [facility] [place] [facility] [address] [id number] [place] [address]- 4152 Jan, [facility] [place] [facility] [address] [id number] [place] [address]- 6704 Jan, [facility] [place] [facility] [address] [id number] [place] [address]- 0464 Jan, [facility] [place] [facility] [address] [id number] [place] [address] 2546 Jan, [facility] [address] [id number] [place] [address]- 9636 Jan, [facility] [address] [id number] [place] [address] 2546 Dec, [facility] [address] [id number] [place] [address]- 6246 November, [facility] [address] [id number] [place] [address] 2546 November, [facility] [address] [id number] [place] [address]- 1137 November, [facility] [address] [id number] [place] [address]- 6736 Sep, [facility] [address] [id number] [place] [address]- 9710 Sep, [facility] [address] [id number] [place] [address]- 8814 Sep, [facility] [address] [id number] [place] [address]- 2325 Sep, [facility] [address] [id number] [place] [address]- 6321 Sep, [facility] [place] [facility] [address] [id number] [place] [address]- 2546 Sep, [facility] [address] [id number] [place] [address]- 2546 Aug, [facility] [place] [facility] [address] [id number] [place] [address]- 1366 Aug, [facility] [place] [facility] [address] [id number] [place] [address]- 2546 Aug, [facility] [address] [id number] [place] [address]- 9164 Jul, [facility] [place] [facility] [address] [id number] [place] [address]- 7547 Jul, [facility] [place] [facility] [address] [id number] [place] [address]- 5329 Jul, [facility] [place] [facility] [address] [id number] [place] [address]- 6490 Jul, [facility] [place] [facility] [address] [id number] [place] [address]- 2185 Jun, [facility] [place] [facility] [address] [id number] [place] [address]- 7439 Jun, [facility] [place] [facility] [address] [id number] [place] [address]- 9882 Jun, [facility] [place] [facility] [address] [id number] [place] [address]- 0025 Jun, [facility] [place] [facility] [address] [id number] [place] [address]- 9250 Jun, [facility] [place] [facility] [address] [id number] [place] [address]- 4753 Jun, [facility] [place] [facility] [address] [id number] [place] [address]- 4732 May, [facility] [place] [facility] [address] [id number] [place] [address]- 7126 May, [facility] [place] [facility] [address] [id number], [place] [address]- 5022 May, [facility] [place] [facility] [address] [id number] [place] [address]- 3408 Apr, [facility] [place] [facility] [address] [id number] [place] [address]- 9391 Jan, [facility] [place] [facility] [address] [id number] [place] [address]- 2161 Jun, [facility] [place] [facility] [address] [id number] [place] [address]- 7508 20 Jun, 2010 [facility] [address] [id number] [place] [address]- 6776 15 Jun, 2010 [facility] [address] [id number] [place] [address] 2546 15 Jun, 2010 [facility] [address] [id number] [place] [address]- 6776 15 Jun, 2010 [facility] [place] [facility] [address] [id number] [place] [address] 2546 13 Jun, 2010 [facility] [address] [id number] [place] [address]- 5036 13 Jun, 2010 [facility] [address] [id number] [place] [address]- 0896 21 Apr, 2010 [facility] [address] [id number] [place] [address]- 3580 17 Feb, 2010 [facility] [address] [id number] [place] [address]- 6958 15 Aug, 2009 [facility] [address] [id number] [place] [address]- 4378 18 Jul, 2009 [facility] [address] [facility] [id number] [place] [address]- 5010 11 Jul, 2009 [facility] [address] [id number] [place] [address] 2546 29 Jun, 2009 [facility] [place] [facility] [address] [id number], [place] [address] 2546 28 Jun, 2009 [facility] [place] [facility] [address] [id number] [place] [address] 2546 28 Jun, 2009 [facility] [place] [facility] [address] [id number] [place] [address]- 2546 22 Jun, 2009 [facility] [place] [facility] [address] [id number], [place] [address]- 2546 16 Jun, 2009 [facility] [place] [facility] [id number], [place] [address]- 6668 Jun, [facility] [id number], [place] [address]- 5064 Jun, [facility] [id number], [place] [address]- 1452 May, [facility] [id number] [place] [address]6866- 9287 May, [facility] [id number], [place] [address]- 1154 May, [facility] [id number] [place] [address] 123720- 7434 May, [facility] [id number] 8142 May, [facility] [id number] [place] [address]- 8820 May, [facility] [id number] 4965 May, [facility] [id number], [place] [address]- [address] Apr, [facility] [address], [place] [address]- 4688 Apr, [facility] [id number], [place] [address]- 7482 Jan, [facility] [address] [id number] [address] Oct, IMMUNIZATIONS No Known Immunizations SOCIAL HISTORY Never Assessed REASON FOR VISIT Consult for hypernatremia PLAN OF CARE VITAL SIGNS MEDICATIONS Unknown [...]
--- OUTSIDE RECORDS SUMMARY | 2018-11-09 13:34 | XMS REPORT ---
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 Name Role Phone PRABHA HILL Unavailable PROBLEMS Type Condition ICD9-CM Code YBW66-OF Code Onset Dates Condition Status SNOMED Code Problem Hypernatremia E87.0 Active 50637174 Problem Hallucinations R44.3 Active 8782405 Problem Hypoglycemia E16.2 Active 542196445 Problem Anxiety F41.9 Active 52897625 Problem Dementia in other diseases classified elsewhere without behavioral disturbance F02.80 Active 173045191 Problem Neurogenic orthostatic hypotension G90.3 Active 070643521 Problem Dementia with Lewy bodies G31.83 Active 783366616 Problem Coronary artery disease involving [place] coronary artery of [place] heart without angina pectoris I25.10 Active 9488028937516 Problem Parkinsons disease G20 Active 41306570 Problem Unsteady gait R26.81 Active 45770846 Problem Mixed stress and urge urinary incontinence N39.46 Active 375811475 Problem Episodic cluster headache, not intractable G44.019 Active 071560662 Problem PVD (peripheral vascular disease) I73.9 Active 508326911 Problem Status post amputation of toe of left foot Z89.422 Active 275173380 Problem Dysuria R30.0 Active 48375243 Problem Type 2 diabetes mellitus with unspecified complications E11.8 Active 19455595 Problem Neuropathy G62.9 Active 364917129 Problem Polydipsia R63.1 Active 92253887 Problem Essential hypertension I10 Active 80990488 Problem Dysthymia F34.1 Active 68808209 Problem Hypothyroidism (acquired) E03.9 Active 045875148 Problem Hyperlipemia, mixed E78.2 Active 350848112 ALLERGIES No Information ENCOUNTERS Encounter Location Date Diagnosis [facility] [place] [address] [facility] [id number] [address] Dec, Left shoulder pain M25.512 [facility] [place] [id number] [place] [address] 24748- 0830 Dec, Type 2 diabetes mellitus with unspecified complications E11.8 ; Anxiety F41.9 ; Therapeutic drug monitoring Z51.81 and Analgesic use Z79.899 [place] [id number] [place] [address] 15021- 6132 November, [place] [address] 91346- 9773 November, [facility] [place] [address] 53418- 0153 November, Left shoulder pain M25.512 [place] [address] 13469- 1032 Oct, [facility] [id number] [place] [address] 17206 -9229 Oct, [facility] [place] [address] 67523- 6291 Oct, Parkinsons disease G20 [facility] [address] 24464 -6141 Oct, Acute cystitis without hematuria N30.00 and Viral upper respiratory tract infection J06.9 [place] [id number] [place] [address] 97873- 1731 Oct, [facility] [place] [address] 60014- 4358 Oct, Type 2 diabetes mellitus with unspecified complications E11.8 [place] [address] 39137- 2495 Oct, Left shoulder pain M25.512 [facility] [place] [id number] [place] [address] 68727- 1443 Oct, Type 2 diabetes mellitus with unspecified complications E11.8 ; Dysuria R30.0 and Neurogenic orthostatic hypotension G90.3 [place] [address] 60490- 2080 Sep, Left shoulder pain M25.512 [place] [address] 90779- 1074 Sep, Medicare annual wellness visit, initial Z00.00 ; Parkinsons disease G20 ; Type 2 diabetes mellitus with unspecified complications E11.8 ; Essential hypertension I10 ; Coronary artery disease involving [place] coronary artery of [place] heart without angina pectoris I25.10 ; Hypothyroidism (acquired ) E03.9 ; PVD (peripheral vascular disease) I73.9 ; Dysthymia F34.1 ; Hyperlipemia, mixed E78.2 ; Neuropathy G62.9 ; Encounter for immunization Z23 ; Encounter for other screening for malignant neoplasm of breast Z12.39 and Mixed stress and urge urinary incontinence N39.[address] 33372- 5215 25 Aug, 2017 Parkinsons disease G20 [address] 87543- 0131 Aug, Type 2 diabetes mellitus with unspecified complications E11.8 ; Left shoulder pain M25.512 and Hypotensive episode I95.[address] 02542- 2276 09 Aug, 2017 Coronary artery disease involving [place] coronary artery of [place] heart without angina pectoris I25.[address] 84212- 7799 07 Aug, 2017 Type 2 diabetes mellitus with unspecified complications E11.[address] 21663- 1082 Jul, Callus of foot L84 [address] 41659- 6215 Jul, [address] 36210- 8053 Jul, Callus of foot L84 ; Episodic cluster headache, not intractable G44.019 ; Type 2 diabetes mellitus with unspecified complications E11.8 and Parkinsons disease G20 [place] [id number] [place] [address] 76597- 2388 Jul, [place] [address] 17504- 6428 Jul, [place] [address] 81638- 0627 Jun, Type 2 diabetes mellitus with unspecified complications E11.8 ; Unsteady gait R26.81 ; Forgetfulness R68.89 and Hallucinations R44.3 [place] [address] 96116- 6144 Jun, [place] [address] 88309- 3118 Jun, Left shoulder pain M25.512 [place] [address] 95410- 3392 13 May, 2017 Hypernatremia E87.0 and Polydipsia R63.1 [place] [address] 48403- 9232 08 May, 2017 Hypernatremia E87.0 and Polydipsia R63.1 [place] [address] 29287- 4727 May, Hypoglycemia E16.2 ; Dysuria R30.0 ; Unsteadiness on feet R26.81 ; Forgetfulness R68.89 ; Type 2 diabetes mellitus with unspecified complications E11.8 and Yeast infection involving the vagina and surrounding area B37.3 [place] [address] 51145- 5995 May, Acute cystitis without hematuria N30.00 [facility] [address] 05305 -0355 Apr, Dysuria R30.0 and Acute cystitis without hematuria N30.00 [place] [id number] [place] [address] 72290- 2945 05 Apr, 2017 Hypernatremia E87.0 and Polydipsia R63.1 [place] [address] 44997- 0436 02 Apr, 2017 Vertigo R42 and Type 2 diabetes mellitus with unspecified complications E11.8 [place] [address] 94740- 9260 20 Mar, 2017 [place] [address] 32579- 8389 19 Mar, 2017 Left shoulder pain M25.512 [place] [address] 24655- 3880 13 Mar, 2017 Vertigo R42 [place] [address] 84840- 1286 12 Mar, 2017 Polydipsia R63.1 [place] [address] 99020- 7033 12 Mar, 2017 Polydipsia R63.1 [place] [address] 51901- 2646 11 Mar, 2017 Vertigo R42 [place] [address] 02921- 6638 07 Mar, 2017 Type 2 diabetes mellitus with unspecified complications E11.8 ; Vertigo R42 ; Polydipsia R63.1 ; Polyuria R35.8 ; Hypothyroidism ( acquired) E03.9 ; Abnormal urinalysis R82.90 and Dysthymia F34.1 [place] [id number] [place] [address] 38168- 5225 05 Mar, 2017 Coronary artery disease of [place] artery with stable angina pectoris, unspecified whether [place] or transplanted heart I25.118 ; Systolic CHF, chronic I50.22 ; Hyperlipemia, mixed E78.2 and Essential hypertension I10 [facility] [address] [id number] Feb, Dental caries K02.9 [facility] [place] [id number] [place] [address] 52068- 5647 Feb, Type 2 diabetes mellitus with diabetic neuropathy, unspecified E11.40 [facility] [place] [id number] [place] [address] 77065- 0726 23 Dec, 2016 Left shoulder pain M25.512 [facility] [place] [id number] [place] [address] 11006- 5915 Dec, [facility] [place] [id number] [place] [address] 02991- 3374 Dec, Type 2 diabetes mellitus with unspecified complications E11.8 [facility] [id number] [place] [address] [id number] Dec, Dental examination Z01.20 [facility] [place] [id number] [place] [address] 73767- 1612 Dec, Type 2 diabetes mellitus with diabetic neuropathy, unspecified E11.40 [facility] [place] [id number] [place] [address] 73198- 8057 Dec, [facility] [place] [id number] [place] [address] 95827- 9237 Dec, Type 2 diabetes mellitus with diabetic neuropathy, unspecified E11.40 [facility] [place] [address] [address] 1210 November, Left shoulder pain M25.512 [facility] [place] [address] [address] 9173 November, [facility] [place] [id number] [place] [address] 07223- 6590 November, Type 2 diabetes mellitus with unspecified complications E11.8 and Dysuria R30.0 [facility] [place] [id number] [place] [address] 67103- 7364 Oct, Left shoulder pain M25.512 [facility] [place] [id number] [place] [address] 56483- 6170 Sep, Left shoulder pain M25.512 [place] [address] 70336- 1120 Sep, Pre-op testing Z01.818 [place] [address] 54875- 7039 Sep, Pre-op testing Z01.818 [place] [address] 48057- 0070 Sep, Pre-op testing Z01.818 [place] [address] 70069- 8222 Sep, Pre-op testing Z01.818 and Mouth pain K13.79 [place] [address] 51527- 9426 Sep, Left shoulder pain M25.512 [place] [id number] [place] [address] 98501- 1064 Aug, Other eczema L30.8 [place] [address] 28930- 3019 06 Aug, 2016 PVD (peripheral vascular disease) I73.9 ; Type 2 diabetes mellitus with unspecified complications E11.8 ; Acute cystitis with hematuria N30.01 ; Other eczema L30.8 ; Dysuria R30.0 and Left shoulder pain M25.512 [facility] [id number] [place] [address] 68615 -8187 Jul, Otalgia of right ear H92.01 and Blood in ear canal, right H92.21 [place] [address] 89342- 8381 Jul, Arthralgia, unspecified joint M25.50 ; PVD (peripheral vascular disease) I73.9 and Neuropathy G62.9 [place] [address] 34128- 3964 Jul, [facility] [place] [id number] [place] [address] 67161- 4195 Jun, Medicare annual wellness visit, initial Z00.00 ; Cervicalgia M54.2 ; Radiculopathy of cervical region M54.12 ; Encounter for immunization Z23 ; Type 2 diabetes mellitus with unspecified complications E11.8 and Essential hypertension I10 [place] [address] 35340- 6153 Jun, [place] [address] 79556- 8150 May, Hypothyroidism (acquired) E03.9 [place] [id number] [place] [address] 20334- 1565 May, Dysuria R30.0 ; Essential hypertension I10 ; Hypothyroidism (acquired) E03.9 and PVD (peripheral vascular disease) I73.9 [facility] [id number] [place] [address] 79018 -8881 May, Burning with urination R30.0 and Acute cystitis with hematuria N30.01 [place] [id number] [place] [address] 33974- 8119 May, Dental examination Z01.20 [place] [id number] [place] [address] 14632- 1264 May, Hypothyroidism (acquired) E03.9 [place] [id number] [place] [address] 06541- 0800 Feb, [facility] [place] [address] 31388- 7784 Feb, Status post amputation of toe of left foot Z89.422 ; PVD ( peripheral vascular disease) I73.9 ; Type 2 diabetes mellitus with unspecified complications E11.8 and Essential hypertension I10 [facility] [place] [id number] [place] [address] 74545- 2937 Jan, [place] [address] [address]- 2554 Jan, Hypothyroidism (acquired) E03.9 [place] [id number] [place] [address] 88856- 0164 Jan, [place] [id number] [place] [address] 76529- 0795 Jan, [place] [id number] [place] [address] 80310- 3776 Jan, Type 2 diabetes mellitus with unspecified complications E11.8 ; Status post amputation of toe of left foot Z89.422 and Essential ( primary) hypertension I10 [place] [id number] [place] [address] 92152- 6493 Jan, Type 2 diabetes mellitus with unspecified complications E11.8 ; Status post amputation of toe of left foot Z89.422 ; Essential hypertension I10 and PVD (peripheral vascular disease) I73.9 [place] [id number] [place] [address] 17907- 3514 Jan, [place] [id number] [place] [address] 01511- 2982 Jan, [place] [id number] [place] [address] 90575- 2112 Jan, [place] [id number] [place] [address] 67294- 3173 Jan, Weakness R53.1 ; Fatigue, unspecified type R53.83 ; PVD ( peripheral vascular disease) I73.9 ; Acute osteomyelitis of other site M86.18 ; Type 2 diabetes mellitus with diabetic neuropathy, unspecified E11.40 and oysterman 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.4 [place] [address] [address]- 2965 Dec, [place] [id number] [place] [address] 49922- 1966 Dec, Type 2 diabetes mellitus with unspecified complications E11.8 [place] [id number] [place] [address] 51625- 1254 Dec, [place] [id number] [place] [address] 32413- 0412 Dec, Pressure ulcer, unspecified pressure ulcer stage L89.90 and Type 2 diabetes mellitus with unspecified complications E11.8 [facility] [id number] [place] [address] 21584 -3409 Dec, Toe infection L08.9 [place] [id number] [place] [address] 78671- 8101 November, Dental caries K02.9 [place] [address] 11114- 8826 November, [place] [id number] [place] [address] 69372- 0717 November, Dental examination Z01.20 [place] [id number] [place] [address] 03264- 0625 Sep, Lipoma of torso D17.1 and Thoracic neuritis M54.14 [place] [id number] [place] [address] 57547- 4213 Sep, [place] [id number] [place] [address] 46297- 2805 Aug, [facility] [id number] [place] [address] 51337 -9788 Jul, Dysuria R30.0 and UTI (urinary tract infection) N39.0 [place] [address] 71299- 5815 Jun, Left shoulder pain M25.512 [place] [id number] [place] [address] 00338- 1494 May, Shoulder pain, left M25.512 [place] [address] [place] [address]- 8280 May, [facility] [place] [id number] [place] [address] 21662- 2836 May, [facility] [place] [id number] [place] [address] 50358- 8015 May, Left shoulder pain M25.512 [place] [address] 04112- 6229 May, [facility] [place] [id number] [place] [address] 63449- 2282 Apr, Encounter for immunization Z23 [place] [address] 60401- 5888 Apr, Urinary tract infection, site not specified N39.0 ; Hypotension, unspecified I95.9 ; Type 2 diabetes mellitus with unspecified complications E11.8 and Generalized edema R60.1 [place] [address] 10476- 0846 Apr, [facility] [place] [id number] [place] [address] 50049- 8798 Mar, Diabetes with other specified manifestations, type II or unspecified type, not stated as uncontrolled 250.80 [place] [id number] [place] [address] 49657- 1681 Feb, Gout 274.9 and Diabetes 250.00 [place] [id number] [place] [address] 96701- 1797 Jan, [facility] [place] [id number] [place] [address] 97115- 6809 November, CAD (coronary artery disease) 414.00 and CHF (congestive heart failure) 428.0 [place] [id number] [place] [address] 54722- 4368 Oct, [place] [address] 10890- 6591 Oct, [facility] [place] [facility] [address] [id number] [place] [address]- 9728 Oct, [facility] [place] [facility] [address] [id number] [place] [address]- 2806 Sep, [facility] [place] [facility] [address] [id number] [place] [address]- 9977 Sep, [facility] [place] [facility] [address] [id number] [place] [address]- 7768 Sep, [facility] [place] [facility] [address] [id number] [place] [address]- 0036 Sep, [facility] [place] [facility] [address] [id number] [place] [address]- 1594 Aug, [facility] [place] [facility] [address] [facility] [id number] [place] [address]- 6296 Aug, [facility] [place] [facility] [address] [facility] [id number] [place] [address]- 5867 Aug, 2014 [facility] [place] [facility] [address] [id number] [place] [address]- 6947 Aug, 2014 [facility] [place] [facility] [address] [facility] [id number] [place] [address]- 0333 Aug, 2014 [facility] [place] [facility] [address] [facility] [id number] [place] [address]- 0585 Aug, 2014 [facility] [place] [facility] [address] [id number], [place] [address]- 2965 Aug, [facility] [place] [facility] [address] [id number] [place] [address]- 4567 Aug, [facility] [place] [facility] [address] [facility] [id number] [place] [address]- 8256 Jul, [facility] [place] [facility] [address] [facility] [id number] [place] [address]- 1976 Jul, [facility] [place] [facility] [address] [facility] [id number] [place] [address]- 8883 Jul, [facility] [address] [id number] [place] [address]- 6298 Jul, [facility] [address] [id number] [place] [address]- 2813 Jul, [facility] [address] [id number] [place] [address]- 5084 Jul, [facility] [address] [id number] [place] [address]- 9827 Jul, [facility] [address] [id number] [place] [address]- 6348 Jul, [facility] [address] [id number] [place] [address]- 7199 Jul, [facility] [address] [id number] [place] [address]- 4881 Jul, [facility] [address] [id number] [place] [address]- 8449 Jun, [facility] [address] [id number] [place] [address]- 4381 Jun, [facility] [address] [id number] [place] [address]- 5599 Jun, [facility] [address] [id number] [place] [address]- 5570 Jun, [facility] [address] [id number] [place] [address]- 9477 Jun, [facility] [place] [facility] [address] [id number] [place] [address]- 7381 Jun, [facility] [place] [facility] [address] [id number] [place] [address]- 5692 Jun, [facility] [address] [id number] [place] [address]- 4636 Jun, [facility] [place] [facility] [address] [id number] [place] [address]- 2071 Jun, [facility] [place] [facility] [address] [id number] [place] [address]- 6841 Jun, [facility] [place] [facility] [address] [id number] [place] [address]- 1413 May, [facility] [place] [facility] [address] [id number] [place] [address]- 9265 May, [facility] [place] [facility] [address] [id number] [place] [address]- 2311 Mar, [facility] [place] [facility] [address] [id number] [place] [address]- 9147 Mar, [facility] [place] [facility] [address] [id number] [place] [address]- 1702 Mar, [facility] [place] [facility] [address] [id number] [place] [address]- 5257 Mar, [facility] [place] [facility] [address] [id number] [place] [address]- 8796 Feb, [facility] [place] [facility] [address] [id number] [place] [address]- 3387 Feb, [facility] [place] [facility] [address] [id number] [place] [address]- 6121 Feb, [facility] [place] [facility] [address] [id number] [place] [address]- 1286 Jan, [facility] [place] [facility] [address] [id number] [place] [address]- 4356 Jan, [facility] [place] [facility] [address] [id number] [place] [address] Jan, [facility] [place] [facility] [address] [id number] [place] [address] Jan, [facility] [place] [facility] [address] [id number] [place] [address] Jan, [facility] [place] [facility] [address] [id number] [place] [address] Jan, [facility] [place] [facility] [address] [id number] [place] [id number] [address] Jan, [facility] [place] [facility] [address] [id number] [place] [address] Jan, [facility] [place] [facility] [address] [id number] [place] [address] Jan, [facility] [place] [facility] [address] [id number] [place] [address] Jan, [facility] [place] [facility] [address] [id number] [place] [address] Dec, [facility] [place] [facility] [address] [id number] [place] [address] Dec, [facility] [place] [facility] [address] [id number] [place] [address] November, [facility] [place] [facility] [address] [id number] [place] [address] November, [facility] [place] [facility] [address] [id number] [place] [address] November, [facility] [place] [facility] [address] [id number] [place] [address] November, [facility] [place] [facility] [address] [id number] [place] [address] November, [facility] [place] [facility] [address] [id number] [place] [address] November, [facility] [place] [facility] [address] [id number] [place] [address] November, [facility] [place] [facility] [address] [id number] [place] [address] Oct, [facility] [place] [facility] [address] [id number] [place] [address] Oct, [facility] [place] [facility] [address] [id number] [place] [address] Sep, [facility] [place] [facility] [address] [id number] [place] [address] Sep, [facility] [place] [facility] [address] [id number] [place] [address] Sep, [facility] [place] [facility] [address] [address] [id number] [place] [address] Sep, [facility] [place] [facility] [address] [id number] [place] [address] Sep, [facility] [place] [facility] [address] [id number] [place] [address] Sep, [facility] [place] [facility] [address] [id number] [place] [address] 80[address] Sep, [facility] [place] [facility] [address] [id number] [place] [address] 112[address] Sep, [facility] [place] [facility] [address] [id number] [place] [address] Sep, [facility] [place] [facility] [address] [id number] [place] [address] 8268 Sep, [facility] [place] [facility] [address] [id number] [place] [address] 5872 Aug, [facility] [place] [facility] [address] [id number] [place] [address]- 6526 Aug, [facility] [place] [facility] [address] [id number] [place] [address] 7116 Jul, [facility] [place] [facility] [address] [id number] [place] [address] 14 Jul, 2013 [facility] [place] [facility] [address] [id number] [place] [address]180 Jul, [facility] [place] [facility] [address] [id number] [place] [address] 9342 Jul, [facility] [place] [facility] [address] [id number] [place] [address] 5[address] Jul, [facility] [place] [facility] [address] [facility] [id number] [place] [address] Jul, [facility] [place] [facility] [address] [id number] [place] [address]- 0250 Jun, [facility] [place] [facility] [address] [id number] [place] [address]- 8925 Jun, [facility] [place] [facility] [address] [id number] [place] [address]- 0843 Jun, [facility] [place] [facility] [address] [id number] [place] [address] 52[address] Jun, [facility] [place] [facility] [address] [id number], [place] [address] May, [facility] [place] [facility] [address] [id number] [place] [address]- 3467 May, [facility] [place] [facility] [address] [id number] [address] 0483 May, [facility] [place] [facility] [address] [id number], [place] [address] 8174 May, [facility] [place] [facility] [address] [id number], [place] [address] 9994 May, [facility] [place] [facility] [address] [id number], [place] [address] 90[address] Apr, [facility] [place] [facility] [address] [id number], [place] [address] 8549 Apr, [facility] [place] [facility] [address] [id number], [place] [address] 7164 Apr, [facility] [place] [facility] [address] [id number] [place] [address] 1887 Apr, [facility] [place] [facility] [address] [id number] [place] [address]- 3157 Apr, [facility] [place] [facility] [address] [id number] [place] [address]- 6348 Apr, [facility] [place] [facility] [address] [id number] [place] [address]- 9407 Apr, [facility] [place] [facility] [address] [id number] [place] [address]- 6338 Apr, [facility] [place] [facility] [address] [id number] [place] [address]- 3349 Apr, [facility] [place] [facility] [address] [id number] [place] [address]- 0451 Apr, [facility] [place] [facility] [address] [id number] [place] [address]- 6250 Apr, [facility] [place] [facility] [address] [id number] [place] [address] Apr, [facility] [place] [facility] [address] [id number] [place] [address]- 8895 Mar, [facility] [place] [facility] [address] [id number] [place] [address]- 0029 Mar, [facility] [place] [facility] [address] [id number] [place] [address] 2547 Feb, [facility] [place] [facility] [address] [id number] [place] [address]- 2541 Jan, [facility] [place] [facility] [address] [id number] [place] [address]- 2293 Jan, [facility] [place] [facility] [address] [id number] [place] [address]- 2546 Jan, [facility] [place] [facility] [address] [id number] [place] [address]- 2546 Jan, [facility] [place] [facility] [address] [id number] [place] [address]- 6310 Dec, [facility] [address] [id number] [place] [address]- 8829 Dec, [facility] [place] [facility] [address] [id number] [place] [address]- 6693 Dec, [facility] [address] [id number] [place] [address]- 5865 Dec, [facility] [address] [id number] [place] [address]- 0816 Dec, [facility] [address] [id number] [place] [address]- 3943 Dec, [facility] [address] [id number] [place] [address] 4813 Dec, [facility] [address] [id number] [place] [address]- 8618 November, [facility] [address] [id number] [place] [address]- 1535 November, [facility] [address] [id number] [place] [address]- 8535 November, [facility] [place] [facility] [address] [id number] [place] [address]- 5273 Oct, [facility] [place] [facility] [address] [id number] [place] [address]- 8006 Oct, [facility] [place] [facility] [address] [id number] [place] [address]- 7876 Oct, [facility] [place] [facility] [address] [id number] [place] [address]- 0159 Oct, [facility] [place] [facility] [address] [id number] [place] [address]- 5297 Oct, [facility] [place] [facility] [address] [id number] [place] [address]- 2546 26 Sep, 2012 [facility] [address] [id number] [place] [address]- 1551 Sep, [facility] [place] [facility] [address] [id number] [place] [address]- 9796 13 Sep, 2012 [facility] [address] [facility] [id number] [place] [address]- 5946 Sep, [facility] [address] [id number] [place] [address] 7343 Aug, [facility] [place] [facility] [address] [id number] [place] [address]- 6526 Aug, [facility] [place] [facility] [address] [facility] [id number] [place] [address]- 1686 Aug, [facility] [address] [facility] [id number] [place] [address]- 0723 Aug, [facility] [address] [facility] [id number] [place] [address]- 6587 Jul, [facility] [address] [facility] [id number] [place] [address]- 0101 Jul, [facility] [address] [facility] [id number] [place] [address]- 4652 Jun, [facility] [address] [facility] [id number] [place] [address]- 1766 Jun, [facility] [place] [facility] [address] [id number] [place] [address]- 2549 Jun, [facility] [place] [facility] [address] [id number] [place] [address]- 7855 Jun, [facility] [place] [facility] [address] [facility] [id number] [place] [address]- 5397 May, [facility] [place] [facility] [address] [facility] [id number] [place] [address]- 6161 May, [facility] [place] [facility] [address] [id number] [place] [address]- 6646 May, [facility] [place] [facility] [address] [id number] [place] [address]- 4753 May, [facility] [place] [facility] [address] [id number] [place] [address] Apr, [facility] [place] [facility] [address] [id number] [place] [address]- 6953 Apr, [facility] [place] [facility] [address] [id number] [place] [address]- 2630 Apr, [facility] [place] [facility] [address] [id number] [place] [address]- 5436 Apr, [facility] [place] [facility] [address] [id number] [place] [address]- 6151 Apr, [facility] [place] [facility] [address] [id number] [place] [address]- 2575 Apr, [facility] [place] [facility] [address] [id number] [place] [address]- 6770 Apr, [facility] [place] [facility] [address] [id number] [place] [address]- 2325 Apr, [facility] [place] [facility] [address] [id number] [place] [address]- 2011 Apr, [facility] [place] [facility] [address] [id number] [place] [address] Apr, [facility] [place] [facility] [address] [id number] [place] [address]- 8413 Feb, [facility] [place] [facility] [address] [id number] [place] [address]- 2596 Feb, [facility] [place] [facility] [address] [id number] [place] [address] 2549 Jan, [facility] [place] [facility] [address] [id number] [place] [address]- 4885 Jan, [facility] [address] [id number] [place] [address]- 7891 Jan, [facility] [place] [facility] [address] [id number] [place] [address]- 8747 Jan, [facility] [place] [facility] [address] [id number] [place] [address]- 8820 Jan, [facility] [place] [facility] [address] [id number] [place] [address]- 0275 Jan, [facility] [place] [facility] [address] [id number] [place] [address]- 5800 Dec, [facility] [place] [facility] [address] [id number] [place] [address]- 0514 November, [facility] [place] [facility] [address] [id number] [place] [address]- 3334 November, [facility] [place] [facility] [address] [id number] [place] [address]- 0922 November, [facility] [place] [facility] [address] [id number] [place] [address]- 7250 Sep, [facility] [place] [facility] [address] [id number] [place] [address]- 0810 Sep, [facility] [place] [facility] [address] [id number] [place] [address]- 6544 Sep, [facility] [place] [facility] [address] [id number], [place] [address]- 3992 Sep, [facility] [place] [facility] [address] [id number] [place] [address]- 1625 Sep, [facility] [place] [facility] [address] [id number] [place] [address]- 8547 Sep, [facility] [place] [facility] [address] [id number] [place] [address]- 6900 Aug, [facility] [place] [facility] [address] [id number] [place] [address]- 5777 10 Aug, 2011 [facility] [address] [id number] [place] [address]- 6642 Aug, [facility] [address] [id number] [place] [address]- 5405 Jul, [facility] [address] [id number] [place] [address]- 5764 Jul, [facility] [address] [id number] [place] [address]- 9194 Jul, [facility] [address] [id number] [place] [address]- 7907 Jul, [facility] [address] [facility] [id number] [place] [address]- 7921 Jun, [facility] [address] [facility] [id number] [place] [address]- 9446 Jun, [facility] [address] [id number] [place] [address]- 7854 Jun, [facility] [address] [facility] [id number] [place] [address]- 1194 Jun, [facility] [address] [facility] [id number] [place] [address]- 0355 Jun, [facility] [address] [id number] [place] [address]- 5429 Jun, [facility] [address] [id number] [place] [address]- 2668 May, [facility] [place] [facility] [address] [id number] [place] [address]- 8176 May, [facility] [place] [facility] [address] [facility] [id number] [place] [address]- 5800 May, [facility] [address] [facility] [id number] [place] [address]- 6506 Apr, [facility] [address] [id number] [place] [address]- 6302 11 Jan, 2011 [facility] [place] [facility] [address] [id number] [place] [address]- 5196 20 Jun, 2010 [facility] [place] [facility] [address] [id number] [place] [address] 20 Jun, 2010 [facility] [place] [facility] [address] [id number] [place] [address]- 8016 15 Jun, 2010 [facility] [address] [id number] [place] [address]- 9016 15 Jun, 2010 [facility] [place] [facility] [address] [id number] [place] [address]- 4016 15 Jun, 2010 [facility] [address] [id number] [place] [address]- 4086 13 Jun, 2010 [facility] [place] [facility] [address] [id number] [place] [address]- 3673 13 Jun, 2010 [facility] [place] [facility] [address] [id number] [place] [address]- 8389 Apr, [facility] [place] [facility] [address] [id number], [place] [address]- 1672 Feb, [facility] [place] [facility] [address] [id number] [place] [address]- 6161 15 Aug, 2009 [facility] [place] [facility] [address] [id number], [place] [address]- 8267 Jul, [facility] [place] [facility] [address] [id number] [place] [address]- 6486 Jul, [facility] [place] [facility] [address] [id number], [place] [address]- 1856 29 Jun, 2009 [facility] [place] [facility] [address] [id number] [place] [address]- 1381 28 Jun, 2009 [facility] [place] [facility] [address] [id number], [place] [address]- 4941 28 Jun, 2009 [facility] [address] [facility] [id number], [place] [address]- 8226 Jun, [facility] [address] [id number], [place] [address]- 0416 16 Jun, 2009 [facility] [id number], [place] [address]- 3516 Jun, [facility] [address] [facility] [id number], [place] [address]- 8398 Jun, [facility] [id number] [place] [address] 240[address]- 2300 30 May, 2009 [facility] [address] [id number], [place] [address]- 4923 27 May, 2009 [facility] [id number] [place] [address]- 0596 23 May, 2009 [facility] [id number], [place] [address]- 9582 May, [facility] [id number], [place] [address]- 4670 May, [facility] [id number], [place] [address]- 0791 16 May, 2009 [facility] [id number], [place] [address]- 5236 May, [facility] [address] [id number], [place] [address]- 4321 Apr, [facility] [address] [id number], [place] [address]- 3334 Apr, [facility] [address] [id number] [address]35 Jan, [facility] [address] 9216 16 Oct, 2008 IMMUNIZATIONS No Known Immunizations SOCIAL HISTORY Never Assessed REASON FOR VISIT Wound PLAN OF CARE VITAL SIGNS MEDICATIONS Unknown [...]
--- OUTSIDE RECORDS SUMMARY | 2018-11-09 13:35 | XMS REPORT ---
Author Author PRABHA HILL [facility] Address [address] [place] [address] Care Team Providers Care Etcher Aircraft Name Role Phone PRABHA HILL Unavailable PROBLEMS Type Condition ICD9-CM Code XUN31-IW Code Onset Dates Condition Status SNOMED Code Problem Hyperlipemia, mixed E78.2 Active 844052764 Problem Hypoglycemia E16.2 Active 674455408 Problem Hypernatremia E87.0 Active 14799138 Problem Neurogenic orthostatic hypotension G90.3 Active 899148085 Problem Dementia with Lewy bodies G31.83 Active 971599943 Problem Mixed stress and urge urinary incontinence N39.46 Active 108171317 Problem Coronary artery disease involving [place] coronary artery of [place] heart without angina pectoris I25.10 Active 7624654969989 Problem Unsteady gait R26.81 Active 02950928 Problem Hallucinations R44.3 Active 3646415 Problem Parkinsons disease G20 Active 96355956 Problem Episodic cluster headache, not intractable G44.019 Active 360157057 Problem Type 2 diabetes mellitus with unspecified complications E11.8 Active 44374933 Problem PVD (peripheral vascular disease) I73.9 Active 451993577 Problem Dementia in other diseases classified elsewhere without behavioral disturbance F02.80 Active 085877758 Problem Dysuria R30.0 Active 65930860 Problem Hypothyroidism (acquired) E03.9 Active 596107966 Problem Neuropathy G62.9 Active 334992266 Problem Status post amputation of toe of left foot Z89.422 Active 232125809 Problem Dysthymia F34.1 Active 98490006 Problem Essential hypertension I10 Active 94548509 Problem Polydipsia R63.1 Active 98900114 ALLERGIES No Information ENCOUNTERS Encounter Location Date Diagnosis [facility] [address] [facility] [id number] [address] Dec, [facility] [id number] [place] [address] 37763- 0747 Oct, [facility] [id number] [place] [address] 79386 -0458 Oct, [facility] [id number] [place] [address] 94272- 2575 Oct, Parkinsons disease G20 [facility] [id number] [place] [address] 58076 -2663 Oct, Acute cystitis without hematuria N30.00 and Viral upper respiratory tract infection J06.9 [facility] [id number] [place] [address] 48751- 6498 Oct, [facility] [id number] [place] [address] 25990- 6766 Oct, Type 2 diabetes mellitus with unspecified complications E11.8 [facility] [id number] [place] [address] 53628- 6477 Oct, Left shoulder pain M25.512 [facility] [id number] [place] [address] 23895- 1110 16 Oct, 2017 Type 2 diabetes mellitus with unspecified complications E11.8 ; Dysuria R30.0 and Neurogenic orthostatic hypotension G90.3 [place] [id number] [place] [address] 94442- 4992 Sep, Left shoulder pain M25.512 [facility] [id number] [place] [address] 37969- 1621 Sep, Medicare annual wellness visit, initial Z00.00 ; Parkinsons disease G20 ; Type 2 diabetes mellitus with unspecified complications E11.8 ; Essential hypertension I10 ; Coronary artery disease involving [place] coronary artery of [place] heart without angina pectoris I25.10 ; Hypothyroidism (acquired ) E03.9 ; PVD (peripheral vascular disease) I73.9 ; Dysthymia F34.1 ; Hyperlipemia, mixed E78.2 ; Neuropathy G62.9 ; Encounter for immunization Z23 ; Encounter for other screening for malignant neoplasm of breast Z12.39 and Mixed stress and urge urinary incontinence N39.46 [place] [address] 62629- 2922 Aug, Parkinsons disease G20 [facility] [address] 87371- 5547 Aug, Type 2 diabetes mellitus with unspecified complications E11.8 ; Left shoulder pain M25.512 and Hypotensive episode I95.9 [facility] [address] 60365- 7718 Aug, Coronary artery disease involving [place] coronary artery of [place] heart without angina pectoris I25.10 [facility] [address] 32918- 6821 07 Aug, 2017 Type 2 diabetes mellitus with unspecified complications E11.8 [facility] [address] 09394- 6850 Jul, Callus of foot L84 [facility] [facility] [address] 57832- 3581 Jul, [facility] [address] 64664- 0247 Jul, Callus of foot L84 ; Episodic cluster headache, not intractable G44.019 ; Type 2 diabetes mellitus with unspecified complications E11.8 and Parkinsons disease G20 [place] [address] 89184- 5514 Jul, [place] [address] 02714- 7113 Jul, [facility] [address] 32265- 2941 Jun, Type 2 diabetes mellitus with unspecified complications E11.8 ; Unsteady gait R26.81 ; Forgetfulness R68.89 and Hallucinations R44.[address] 97121- 7549 Jun, [facility] [id number] [place] [address] 58023- 0086 Jun, Left shoulder pain M25.512 [facility] [id number] [place] [address] 93432- 1401 13 May, 2017 Hypernatremia E87.0 and Polydipsia R63.1 [place] [address] 60024- 2485 08 May, 2017 Hypernatremia E87.0 and Polydipsia R63.1 [facility] [id number] [place] [address] 93212- 6634 08 May, 2017 Hypoglycemia E16.2 ; Dysuria R30.0 ; Unsteadiness on feet R26.81 ; Forgetfulness R68.89 ; Type 2 diabetes mellitus with unspecified complications E11.8 and Yeast infection involving the vagina and surrounding area B37.3 [facility] [id number] [place] [address] 99803- 5527 May, Acute cystitis without hematuria N30.00 [facility] [id number] [place] [address] 00690 -7242 Apr, Dysuria R30.0 and Acute cystitis without hematuria N30.00 [facility] [id number] [place] [address] 74258- 3712 Apr, Hypernatremia E87.0 and Polydipsia R63.1 [facility] [id number] [place] [address] 25342- 8360 Apr, Vertigo R42 and Type 2 diabetes mellitus with unspecified complications E11.8 [facility] [id number] [place] [address] 09589- 4707 Mar, [facility] [id number] [place] [address] 45117- 0198 19 Mar, 2017 Left shoulder pain M25.512 [facility] [id number] [place] [address] 30061- 7008 13 Mar, 2017 Vertigo R42 [facility] [id number] [place] [address] 16949- 5243 12 Mar, 2017 Polydipsia R63.1 [facility] [id number] [place] [address] 23941- 1279 12 Mar, 2017 Polydipsia R63.1 [facility] [id number] [place] [address] 69261- 5185 11 Mar, 2017 Vertigo R42 [place] [address] 99735- 8369 07 Mar, 2017 Type 2 diabetes mellitus with unspecified complications E11.8 ; Vertigo R42 ; Polydipsia R63.1 ; Polyuria R35.8 ; Hypothyroidism ( acquired) E03.9 ; Abnormal urinalysis R82.90 and Dysthymia F34.1 [facility] [id number] [place] [address] 16032- 1431 05 Mar, 2017 Coronary artery disease of [place] artery with stable angina pectoris, unspecified whether [place] or transplanted heart I25.118 ; Systolic CHF, chronic I50.22 ; Hyperlipemia, mixed E78.2 and Essential hypertension I10 [facility] [id number] [place] [address] [id number] Feb, Dental caries K02.9 [place] [id number] [place] [address] 18870- 8047 Feb, Type 2 diabetes mellitus with diabetic neuropathy, unspecified E11.40 [facility] [id number] [place] [address] 15589- 1365 Dec, Left shoulder pain M25.512 [facility] [address] 60126- 5908 Dec, [facility] [id number] [place] [address] 01584- 8634 15 Dec, 2016 Type 2 diabetes mellitus with unspecified complications E11.8 [facility] [address] [place] [address] 15 Dec, 2016 Dental examination Z01.20 [facility] [id number] [place] [address] 63403- 6973 Dec, Type 2 diabetes mellitus with diabetic neuropathy, unspecified E11.40 [place] [id number] [place] [address] 60176- 1951 Dec, [facility] [id number] [place] [address] 18089- 5358 Dec, Type 2 diabetes mellitus with diabetic neuropathy, unspecified E11.40 [facility] [id number] [place] [address] 974430- 1045 November, Left shoulder pain M25.512 [facility] [id number] [place] [address] 67448- 5161 November, [facility] [id number] [place] [address] 16379- 5655 November, Type 2 diabetes mellitus with unspecified complications E11.8 and Dysuria R30.0 [facility] [id number] [place] [address] 42397- 6366 Oct, Left shoulder pain M25.512 [place] [address] [place] [address] 34229- 8828 Sep, Left shoulder pain M25.512 [facility] [id number] [place] [address] 52640- 2885 Sep, Pre-op testing Z01.818 [place] [address] [place] [address] 46209- 6310 Sep, Pre-op testing Z01.818 [place] [place] [address] [place] [address] 96967- 2116 Sep, Pre-op testing Z01.818 [place] [address] [place] [address] 75129- 4721 Sep, Pre-op testing Z01.818 and Mouth pain K13.79 [facility] [address] 44041- 4522 Sep, Left shoulder pain M25.512 [place] [address] 03528- 2633 08 Aug, 2016 Other eczema L30.[address] 32703- 6494 06 Aug, 2016 PVD (peripheral vascular disease) I73.9 ; Type 2 diabetes mellitus with unspecified complications E11.8 ; Acute cystitis with hematuria N30.01 ; Other eczema L30.8 ; Dysuria R30.0 and Left shoulder pain M25.512 [facility] [address] 64895 -6407 Jul, Otalgia of right ear H92.01 and Blood in ear canal, right H92.[address] 14485- 2923 Jul, Arthralgia, unspecified joint M25.50 ; PVD (peripheral vascular disease) I73.9 and Neuropathy G62.9 [facility] [place] [id number] [place] [address] 41346- 0650 Jul, [place] [address] 49928- 2338 Jun, Medicare annual wellness visit, initial Z00.00 ; Cervicalgia M54.2 ; Radiculopathy of cervical region M54.12 ; Encounter for immunization Z23 ; Type 2 diabetes mellitus with unspecified complications E11.8 and Essential hypertension I10 [address] 09309- 6479 Jun, [place] [address] 22126- 3788 May, Hypothyroidism (acquired) E03.[address] [place] [address]- 3645 May, Dysuria R30.0 ; Essential hypertension I10 ; Hypothyroidism (acquired) E03.9 and PVD (peripheral vascular disease) I73.9 [facility] [id number] [place] [address] 30640 -6900 May, Burning with urination R30.0 and Acute cystitis with hematuria N30.01 [facility] [address] 64283- 0133 May, Dental examination Z01.20 [facility] [address] 05408- 2579 May, Hypothyroidism (acquired) E03.9 [facility] [id number] [place] [address] 25723- 7811 Feb, [facility] [address] 06929- 5480 Feb, Status post amputation of toe of left foot Z89.422 ; PVD ( peripheral vascular disease) I73.9 ; Type 2 diabetes mellitus with unspecified complications E11.8 and Essential hypertension I10 [facility] [id number] [place] [address] 15095- 2319 Jan, [facility] [id number] [place] [address] 04059- 5098 Jan, Hypothyroidism (acquired) E03.9 [facility] [id number] [place] [address] 78618- 4272 Jan, [facility] [id number] [place] [address] 05933- 8645 Jan, [facility] [address] 08462- 6210 Jan, Type 2 diabetes mellitus with unspecified complications E11.8 ; Status post amputation of toe of left foot Z89.422 and Essential ( primary) hypertension I10 [facility] [address] [place] [address]- 2251 Jan, Type 2 diabetes mellitus with unspecified complications E11.8 ; Status post amputation of toe of left foot Z89.422 ; Essential hypertension I10 and PVD (peripheral vascular disease) I73.9 [facility] [id number] [place] [address] 73687- 4460 Jan, [facility] [id number] [place] [address] 16507- 1367 Jan, [facility] [id number] [place] [address] 49346- 7976 Jan, [facility] [id number] [place] [address] 37641- 8097 Jan, Weakness R53.1 ; Fatigue, unspecified type R53.83 ; PVD ( peripheral vascular disease) I73.9 ; Acute osteomyelitis of other site M86.18 ; Type 2 diabetes mellitus with diabetic neuropathy, unspecified E11.40 and 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 [facility] [id number] [place] [address] 60309- 5272 Dec, [facility] [id number] [place] [address] 07704- 2444 Dec, Type 2 diabetes mellitus with unspecified complications E11.8 [facility] [place] [id number] [place] [address] 41717- 6382 Dec, [facility] [id number] [place] [address] 25107- 0188 Dec, Pressure ulcer, unspecified pressure ulcer stage L89.90 and Type 2 diabetes mellitus with unspecified complications E11.8 [facility] [id number] [place] [address] 60851 -5431 Dec, Toe infection L08.9 [place] [id number] [place] [address] 06274- 1176 November, Dental caries K02.9 [place] [address] [place] [address]- 3994 November, [facility] [id number] [place] [address] 09834- 6945 November, Dental examination Z01.20 [facility] [id number] [place] [address] 96276- 5100 28 Sep, 2015 Lipoma of torso D17.1 and Thoracic neuritis M54.14 [facility] [id number] [place] [address] 58336- 0132 Sep, [facility] [id number] [place] [address] 35068- 6401 Aug, [facility] [id number] [place] [address] 98234 -0158 Jul, Dysuria R30.0 and UTI (urinary tract infection) N39.0 [facility] [id number] [place] [address] 62346- 2643 Jun, Left shoulder pain M25.512 [facility] [id number] [place] [address] 19049- 6985 May, Shoulder pain, left M25.512 [facility] [id number] [place] [address] 43983- 4051 May, [facility] [id number] [place] [address] 41054- 9276 May, [facility] [id number] [place] [address] 25212- 1293 May, Left shoulder pain M25.512 [facility] [id number] [place] [address] 78265- 7502 May, [facility] [id number] [place] [address] 62450- 1042 Apr, Encounter for immunization Z23 [facility] [id number] [place] [address] 45220- 8086 Apr, Urinary tract infection, site not specified N39.0 ; Hypotension, unspecified I95.9 ; Type 2 diabetes mellitus with unspecified complications E11.8 and Generalized edema R60.1 [facility] [id number] [place] [address] 39121- 9053 Apr, [facility] [id number] [place] [address] 37165- 6715 Mar, Diabetes with other specified manifestations, type II or unspecified type, not stated as uncontrolled 250.80 [facility] [address] 551947- 8506 Feb, Gout 274.9 and Diabetes 250.00 [facility] [id number] [place] [address] 87796- 6020 Jan, [facility] [id number] [place] [address] 56129- 4562 November, CAD (coronary artery disease) 414.00 and CHF (congestive heart failure) 428.0 [facility] [id number] [place] [address] 64693- 1190 Oct, [facility] [id number] [place] [address] 04303- 1493 Oct, [facility] [id number] [place] [address] 87607- 8452 Oct, [facility] [id number] [place] [address] 98131- 2517 Sep, [facility] [id number] [place] [address] 49656- 3243 Sep, [facility] [id number] [place] [address] 281437- 7129 Sep, [facility] [id number] [place] [address] 239625- 5426 Sep, [facility] [id number] [place] [address] 98808- 5268 Aug, 2014 [facility] [place] [facility] [address] [id number] [place] [address]- 7823 Aug, 2014 [facility] [place] [facility] [address] [id number] [place] [address]- 4566 Aug, 2014 [facility] [place] [facility] [address] [facility] [id number] [place] [address]- 6796 Aug, 2014 [facility] [place] [facility] [address] [id number] [place] [address]- 5177 Aug, 2014 [facility] [place] [facility] [address] [id number] [place] [address]- 1380 Aug, 2014 [facility] [place] [facility] [address] [facility] [id number] [place] [address]- 5953 Aug, [facility] [place] [facility] [address] [facility] [id number] [place] [address]- 9886 Aug, [facility] [place] [facility] [address] [facility] [id number] [address] Jul, [facility] [place] [facility] [address] [facility] [id number] [place] [address]- 7279 Jul, [facility] [place] [facility] [address] [facility] [id number] [place] [address]- 7636 Jul, [facility] [place] [facility] [address] [facility] [id number] [place] [address]- 7928 Jul, [facility] [place] [facility] [address] [facility] [id number] [address]- 2120 Jul, [facility] [place] [facility] [address] [id number], [place] [address]- 6402 Jul, [facility] [place] [facility] [address] [facility] [id number], [place] [address]- 9410 Jul, [facility] [place] [facility] [address] [facility] [id number], [place] [address]- 7680 Jul, [facility] [place] [facility] [address] [id number] [place] [address]- 7222 Jul, [facility] [place] [facility] [address] [id number] [place] [address]- 1782 Jul, [facility] [place] [facility] [address] [id number] [place] [address]- 5706 Jun, [facility] [place] [facility] [address] [id number] [place] [address]- 1402 Jun, [facility] [place] [facility] [address] [id number] [place] [address]- 7906 Jun, [facility] [place] [facility] [address] [id number] [place] [address]- 9304 Jun, [facility] [place] [facility] [address] [id number] [place] 5572 Jun, [facility] [place] [facility] [address] [id number] [place] [address]- 3806 Jun, [facility] [place] [facility] [address] [id number] [place] 7370 Jun, [facility] [place] [facility] [address] [id number] [place] [address]- 4114 Jun, [facility] [place] [facility] [address] [id number] [place] [address]- 1415 Jun, [facility] [place] [facility] [address] [id number] [place] [address]- 3069 Jun, [facility] [place] [facility] [address] [id number] [place] [address]- 9329 May, [facility] [place] [facility] [address] [id number] [place] [address]- 7833 May, [facility] [place] [facility] [address] [id number] [place] [address]- 2542 Mar, [facility] [place] [facility] [address] [id number] [place] [address]- 4620 Mar, [facility] [place] [facility] [address] [id number] [place] [address]- 8647 Mar, [facility] [place] [facility] [address] [id number] [place] [address]- 6203 Mar, [facility] [place] [facility] [address] [id number] [place] [address]- 8128 Feb, [facility] [place] [facility] [address] [id number] [place] [address]- 2951 Feb, [facility] [place] [facility] [address] [id number] [place] [address] Feb, [facility] [place] [facility] [address] [id number] [place] [address] Jan, [facility] [place] [facility] [address] [id number] [place] [address] Jan, [facility] [place] [facility] [address] [id number] [place] [address] Jan, [facility] [place] [facility] [address] [id number] [place] [address] Jan, [facility] [place] [facility] [address] [id number] [place] [address] Jan, [facility] [place] [facility] [address] [id number] [place] [address] Jan, [facility] [place] [facility] [address] [id number] [place] [address] Jan, [facility] [place] [facility] [address] [id number] [place] [address] Jan, [facility] [place] [facility] [address] [id number] [place] [address] Jan, [facility] [place] [facility] [address] [id number] [place] [address] Jan, [facility] [place] [facility] [address] [id number] [place] [address] Dec, [facility] [place] [facility] [address] [id number] [place] [address] Dec, [facility] [place] [facility] [address] [id number] [place] [address] November, [facility] [place] [facility] [address] [id number] [place] [address] November, [facility] [place] [facility] [address] [id number] [place] [address] November, [facility] [place] [facility] [address] [id number] [place] [address] November, [facility] [place] [facility] [address] [id number] [place] [address] November, [facility] [place] [facility] [address] [id number] [place] [address] November, [facility] [place] [facility] [address] [id number] [place] [address] November, [facility] [place] [facility] [address] [id number] [place] [address] Oct, [facility] [place] [facility] [address] [id number] [place] [address] Oct, [facility] [place] [facility] [address] [id number] [place] [address] Sep, [facility] [place] [facility] [address] [id number] [place] [address] Sep, [facility] [place] [facility] [address] [id number] [place] [address] Sep, [facility] [place] [facility] [address] [id number] [place] [address] Sep, [facility] [place] [facility] [address] [id number] [place] [address] Sep, [facility] [place] [facility] [address] [id number] [place] [address] Sep, [facility] [place] [facility] [address] [id number] [place] [address] Sep, [facility] [place] [facility] [address] [id number] [place] [address] Sep, [facility] [place] [facility] [address] [id number] [place] [address] 4072 Sep, [facility] [place] [facility] [address] [id number] [place] [address] 48[address] Sep, [facility] [place] [facility] [address] [id number] [place] [address] 9749 Aug, [facility] [place] [facility] [address] [id number] [place] [address] 8145 Aug, [facility] [place] [facility] [address] [id number] [place] [address]- 4[address] Jul, [facility] [place] [facility] [address] [id number] [place] [address] 8197 Jul, [facility] [place] [facility] [address] [id number] [place] [address] 0442 Jul, [facility] [place] [facility] [address] [id number] [place] [address]- 7937 Jul, [facility] [place] [facility] [address] [id number], [place] [address] Jul, [facility] [place] [facility] [address] [id number] [place] [address]- 4458 Jul, [facility] [place] [facility] [address] [id number] [place] [address]- 1529 Jun, [facility] [place] [facility] [address] [id number], [place] [address]- 78[address] Jun, [facility] [place] [facility] [address] [id number], [place] [address] Jun, [facility] [place] [facility] [address] [id number] [place] [address]- 0493 Jun, [facility] [place] [facility] [address] [id number] [place] [address]- 4506 May, [facility] [place] [facility] [address] [id number] [place] [address]- 6433 May, [facility] [place] [facility] [address] [id number] [place] [address]- 5261 May, [facility] [place] [facility] [address] [id number] [place] [address]- 8033 May, [facility] [place] [facility] [address] [id number] [place] [address]- 7950 May, [facility] [place] [facility] [address] [id number] [place] [address]- 3636 Apr, [facility] [place] [facility] [address] [id number] [place] [address]- 1428 Apr, [facility] [place] [facility] [address] [id number] [place] [address]- 3417 Apr, [facility] [place] [facility] [address] [id number] [place] [address]- 9539 Apr, [facility] [place] [facility] [address] [id number], [place] [address]- 5527 Apr, [facility] [place] [facility] [address] [id number], [place] [address] 28 Apr, 2013 [facility] [place] [facility] [address] [id number] [place] [address] 1948 Apr, [facility] [place] [facility] [address] [id number] [place] [address]- 8428 Apr, [facility] [place] [facility] [address] [id number] [place] [address]- 7703 Apr, [facility] [place] [facility] [address] [id number] [place] [address]- 0164 Apr, [facility] [place] [facility] [address] [id number] [place] [address]- 3571 Apr, [facility] [place] [facility] [address] [id number] [place] [address]- 2546 Apr, [facility] [place] [facility] [address] [id number] [place] [address]- 3815 Mar, [facility] [place] [facility] [address] [id number] [place] [address]- 4096 Mar, [facility] [place] [facility] [address] [id number] [place] [address]- 1826 Feb, [facility] [place] [facility] [address] [id number] [place] [address]- 1828 Jan, [facility] [place] [facility] [address] [id number] [place] [address]- 3156 Jan, [facility] [place] [facility] [address] [id number] [place] [address]- 7075 Jan, [facility] [place] [facility] [address] [id number] [place] [address]- 4951 Jan, [facility] [place] [facility] [address] [id number] [place] [address]- 3370 Dec, [facility] [place] [facility] [address] [id number] [place] [address]- 4091 Dec, [facility] [place] [facility] [address] [id number] [place] [address]- 4070 Dec, [facility] [place] [facility] [address] [id number] [place] [address]- 8525 Dec, [facility] [place] [facility] [address] [id number] [place] [address]- 2546 Dec, [facility] [place] [facility] [address] [id number] [place] [address]- 4430 Dec, [facility] [address] [id number] [place] [address]- 4965 Dec, [facility] [place] [facility] [address] [id number] [place] [address]- 8184 November, [facility] [address] [id number] [place] [address]- 3172 November, [facility] [place] [facility] [address] [id number] [place] [address]- 4951 November, [facility] [address] [id number] [place] [address]- 2859 Oct, [facility] [address] [id number] [place] [address]- 6773 Oct, [facility] [address] [id number] [place] [address]- 8861 Oct, [facility] [place] [facility] [address] [id number] [place] [address]- 8520 Oct, [facility] [place] [facility] [address] [id number] [place] [address]- 5414 Oct, [facility] [place] [facility] [address] [id number] [place] [address]- 9650 Sep, [facility] [place] [facility] [address] [id number] [place] [address]- 8645 Sep, [facility] [place] [facility] [address] [id number], [place] [address] Sep, [facility] [place] [facility] [address] [id number] [place] [address]- 8984 Sep, [facility] [place] [facility] [address] [id number], [place] [address] Aug, [facility] [place] [facility] [address] [id number] [place] [address]- 4538 Aug, [facility] [place] [facility] [address] [id number] [place] [address]- 8120 05 Aug, 2012 [facility] [address] [id number] [place] [address]- 8061 Aug, [facility] [place] [facility] [address] [id number] [place] [address]- 0272 Jul, [facility] [address] [id number] [place] [address]- 2478 Jul, [facility] [place] [facility] [address] [id number] [place] [address]- 2436 Jun, [facility] [address] [id number] [place] [address], [place] [address]- 4432 Jun, [facility] [address] [facility] [id number] [place] [address]- 7516 Jun, [facility] [address] [facility] [id number] [place] [address]- 1578 Jun, [facility] [address] [facility] [id number] [place] [address]- 0203 May, [facility] [place] [facility] [address] [facility] [id number] [place] [address]- 2921 May, [facility] [address] [facility] [id number] [place] [address]- 4390 May, [facility] [place] [facility] [address] [facility] [id number] [place] [address]- 8292 May, [facility] [place] [facility] [address] [facility] [id number] [place] [address]- 6896 Apr, [facility] [place] [facility] [address] [facility] [id number] [place] [address]- 8548 Apr, [facility] [place] [facility] [address] [facility] [id number] [place] [address]- 9706 Apr, [facility] [place] [facility] [address] [facility] [id number] [place] [address]- 3112 Apr, [facility] [place] [facility] [address] [id number] [place] [address]- 0097 Apr, [facility] [place] [facility] [address] [id number] [place] [address]- 4056 Apr, [facility] [place] [facility] [address] [id number] [place] [address]- 0377 Apr, [facility] [place] [facility] [address] [id number] [place] [address]- 6504 Apr, [facility] [place] [facility] [address] [id number] [place] [address]- 8370 Apr, [facility] [place] [facility] [address] [id number] [place] [address]- 3531 Apr, [facility] [place] [facility] [address] [id number] [place] [address]- 8467 Feb, [facility] [place] [facility] [address] [id number] [place] [address]- 4021 Feb, [facility] [place] [facility] [address] [id number] [place] [address]- 6232 Jan, [facility] [place] [facility] [address] [id number] [place] [address]- 7107 Jan, [facility] [place] [facility] [address] [id number] [place] [address]- 9486 Jan, [facility] [place] [facility] [address] [id number], [place] [address]- 8471 Jan, [facility] [place] [facility] [address] [id number] [place] [address]- 7269 Jan, [facility] [place] [facility] [address] [id number] [place] [address]- 2840 Jan, [facility] [place] [facility] [address] [id number], [place] [address]- 3662 Dec, [facility] [place] [facility] [address] [id number], [place] [address]- 6817 November, [facility] [address] [id number] [place] [address]- 9980 November, [facility] [address] [id number] [place] [address]- 1656 November, [facility] [address] [id number] [place] [address]- 6124 Sep, [facility] [place] [facility] [address] [id number] [place] [address]- 4596 Sep, [facility] [address] [id number] [place] [address]- 4558 Sep, [facility] [address] [id number] [place] [address]- 1849 Sep, [facility] [address] [facility] [id number] [place] [address]- 0404 Sep, [facility] [place] [facility] [address] [facility] [id number] [place] [address]- 9185 Sep, [facility] [address] [facility] [id number] [place] [address]- 7333 Aug, [facility] [address] [facility] [id number] [place] [address]- 3865 Aug, [facility] [address] [facility] [id number] [place] [address]- 2714 Aug, [facility] [place] [facility] [address] [id number] [place] [address]- 0551 Jul, [facility] [place] [facility] [address] [id number] [place] [address]- 2461 Jul, [facility] [place] [facility] [address] [id number] [place] [address]- 3659 Jul, [facility] [place] [facility] [address] [facility] [id number] [place] [address]- 0513 Jul, [facility] [place] [facility] [address] [id number] [place] [address]- 6718 Jun, [facility] [place] [facility] [address] [id number] [place] [address] Jun, [facility] [place] [facility] [address] [id number] [place] [address]- 3906 Jun, [facility] [place] [facility] [address] [id number] [place] [address]- 3976 Jun, [facility] [place] [facility] [address] [id number] [place] [address]- 3433 Jun, [facility] [place] [facility] [address] [id number] [place] [address]- 4928 Jun, [facility] [place] [facility] [address] [id number] [place] [address]- 0830 May, [facility] [place] [facility] [address] [id number] [place] [address]- 9696 May, [facility] [place] [facility] [address] [id number] [place] [address]- 8796 May, [facility] [place] [facility] [address] [id number] [place] [address]- 0123 Apr, [facility] [place] [facility] [address] [id number] [place] [address]- 0275 Jan, [facility] [place] [facility] [address] [id number] [place] [address]- 3818 Jun, [facility] [place] [facility] [address] [id number] [place] [address]- 4271 Jun, [facility] [place] [facility] [address] [id number] [place] [address]- 5276 Jun, [facility] [place] [facility] [address] [id number] [place] [address] Jun, [facility] [place] [facility] [address] [id number] [place] [address]- 0517 15 Jun, 2010 [facility] [address] [id number] [place] [address]- 2726 13 Jun, 2010 [facility] [place] [facility] [address] [id number] [place] [address]- 6196 13 Jun, 2010 [facility] [address] [facility] [id number] [place] [address] 2546 21 Apr, 2010 [facility] [place] [facility] [address] [id number] [place] [address] 2546 17 Feb, 2010 [facility] [address] [id number] [place] [address]- 0996 15 Aug, 2009 [facility] [place] [facility] [address] [facility] [id number] [place] [address]- 2636 18 Jul, 2009 [facility] [place] [facility] [address] [id number] [place] [address]- 8766 11 Jul, 2009 [facility] [place] [facility] [address] [id number] [place] [address]- 3090 29 Jun, 2009 [facility] [address] [id number] [place] [address]- 7975 28 Jun, 2009 [facility] [place] [facility] [address] [id number] [place] [address]- 8793 28 Jun, 2009 [facility] [address] [id number], [place] [address]- 5280 22 Jun, 2009 [facility] [place] [facility] [address] [id number], [place] [address] 2546 16 Jun, 2009 [facility] [place] [facility] [address] [id number] [place] [address] 2546 09 Jun, 2009 [facility] [place] [facility] [address] [facility] [id number] [place] [address] 2546 Jun, [facility] [place] [facility] [address] [facility] [id number] [place] [address] 2546 30 May, 2009 [facility] [place] [facility] [id number], [place] [address]- 5377 May, [facility] [id number], [place] [address]- 2390 May, [facility] [id number], [place] [address]- 0301 May, [facility] [id number], [place] [address]- 4887 May, [facility] [id number], [place] [address]- 5692 May, [facility] [id number] [place] [address]- 5933 May, [facility] [id number], [place] [address]- 1607 Apr, [facility] [id number] [place] [address]- 1774 Apr, [facility] [id number], [place] [address]- 7867 Jan, [facility] [id number], [place] [address]- 9801 Oct, IMMUNIZATIONS No Known Immunizations SOCIAL HISTORY Never Assessed REASON FOR VISIT CT results PLAN OF CARE VITAL SIGNS MEDICATIONS Unknown [...]
--- OUTSIDE RECORDS SUMMARY | 2018-11-09 13:36 | XMS REPORT ---
Author Author PRABHA HILL [facility] Address [address] [place] [address] Care Team Providers Care Director Medical Surgical Name Role Phone PRABHA HILL Unavailable PROBLEMS Type Condition ICD9-CM Code [id number] Code Onset Dates Condition Status SNOMED Code Problem Hyperlipemia, mixed E78.2 Active 728950823 Problem Hypoglycemia E16.2 Active 098729373 Problem Hypernatremia E87.0 Active 18245512 Problem Neurogenic orthostatic hypotension G90.3 Active 148293848 Problem Dementia with Lewy bodies G31.83 Active 915954150 Problem Mixed stress and urge urinary incontinence N39.46 Active 041238451 Problem 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 Active 5687831884489 Problem Unsteady gait R26.81 Active 21754656 Problem Hallucinations R44.3 Active 8428652 Problem Parkinsons disease G20 Active 59155282 Problem Episodic cluster headache, not intractable G44.019 Active 872644859 Problem Type 2 diabetes mellitus with unspecified complications E11.8 Active 75103467 Problem PVD (peripheral vascular disease) I73.9 Active 922403972 Problem Dementia in other diseases classified elsewhere without behavioral disturbance F02.80 Active 641947707 Problem Dysuria R30.0 Active 95800718 Problem Hypothyroidism (acquired) E03.9 Active 010851610 Problem Neuropathy G62.9 Active 289835426 Problem Status post amputation of toe of left foot Z89.422 Active 739771564 Problem Dysthymia F34.1 Active 53748303 Problem Essential hypertension I10 Active 72410068 Problem Polydipsia R63.1 Active 64301541 ALLERGIES Substance Reaction Event Type Date Status Sulfamethoxazole-Trimethoprim Unknown Drug Allergy May, Active Protamine Sulfate Unknown Drug Allergy May, Active Penicillin V Potassium Unknown Drug Allergy May, Active Cipro lowers blood sugar Drug Allergy May, Active ENCOUNTERS Encounter Location Date Diagnosis [facility] [id number] [place] [address] 20645- 7675 Dec, [facility] [id number] [place] [address] 46411- 3059 November, [facility] [id number] [place] [address] 17468- 9241 November, [facility] [address] 10828- 1743 November, Left shoulder pain M25.512 [facility] [id number] [place] [address] 70272- 6079 Oct, [facility] [id number] [place] [address] 51566 -7049 Oct, [facility] [id number] [place] [address] 75510- 6894 Oct, Parkinsons disease G20 [facility] [id number] [place] [address] 78924 -8884 Oct, Acute cystitis without hematuria N30.00 and Viral upper respiratory tract infection J06.9 [facility] [id number] [place] [address] 88851- 5930 Oct, [facility] [id number] [place] [address] 76929- 7406 Oct, Type 2 diabetes mellitus with unspecified complications E11.8 [facility] [id number] [place] [address] 82871- 6517 Oct, Left shoulder pain M25.512 [facility] [id number] [place] [address] 90380- 7304 Oct, Type 2 diabetes mellitus with unspecified complications E11.8 ; Dysuria R30.0 and Neurogenic orthostatic hypotension G90.3 [facility] [id number] [place] [address] 31415- 2821 Sep, Left shoulder pain M25.512 [place] [id number] [place] [address] 07070- 6097 Sep, Medicare annual wellness visit, initial Z00.00 ; Parkinsons disease G20 ; Type 2 diabetes mellitus with unspecified complications E11.8 ; Essential hypertension I10 ; 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 ; Hypothyroidism (acquired ) E03.9 ; PVD (peripheral vascular disease) I73.9 ; Dysthymia F34.1 ; Hyperlipemia, mixed E78.2 ; Neuropathy G62.9 ; Encounter for immunization Z23 ; Encounter for other screening for malignant neoplasm of breast Z12.39 and Mixed stress and urge urinary incontinence N39.46 [place] [address] 04364- 4909 Aug, Parkinsons disease G20 [place] [address] 38676- 5695 Aug, Type 2 diabetes mellitus with unspecified complications E11.8 ; Left shoulder pain M25.512 and Hypotensive episode I95.9 [place] [address] 78616- 1896 09 Aug, 2017 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 [place] [address] 65079- 1388 07 Aug, 2017 Type 2 diabetes mellitus with unspecified complications E11.8 [place] [address] 05815- 2932 Jul, Callus of foot L84 [place] [address] 33891- 0848 Jul, [place] [address] 63311- 4052 Jul, Callus of foot L84 ; Episodic cluster headache, not intractable G44.019 ; Type 2 diabetes mellitus with unspecified complications E11.8 and Parkinsons disease G20 [place] [id number] [place] [address] 23125- 3595 Jul, [place] [id number] [place] [address] 64734- 2919 Jul, [place] [id number] [place] [address] 97868- 2067 Jun, Type 2 diabetes mellitus with unspecified complications E11.8 ; Unsteady gait R26.81 ; Forgetfulness R68.89 and Hallucinations R44.3 [place] [id number] [place] [address] 49251- 6139 Jun, [place] [address] 95274- 7627 Jun, Left shoulder pain M25.512 [place] [id number] [place] [address] 20147- 2482 May, Hypernatremia E87.0 and Polydipsia R63.1 [place] [id number] [place] [address] 59522- 9176 08 May, 2017 Hypernatremia E87.0 and Polydipsia R63.1 [place] [id number] [place] [address] 33526- 9702 08 May, 2017 Hypoglycemia E16.2 ; Dysuria R30.0 ; Unsteadiness on feet R26.81 ; Forgetfulness R68.89 ; Type 2 diabetes mellitus with unspecified complications E11.8 and Yeast infection involving the vagina and surrounding area B37.3 [place] [address] [place] [address] 59774- 9498 May, Acute cystitis without hematuria N30.00 [facility] [place] [id number] [place] [address] 38652 -8682 Apr, Dysuria R30.0 and Acute cystitis without hematuria N30.00 [place] [id number] [place] [address] 26751- 0637 Apr, Hypernatremia E87.0 and Polydipsia R63.1 [facility] [id number] [place] [address] 42112- 2692 02 Apr, 2017 Vertigo R42 and Type 2 diabetes mellitus with unspecified complications E11.8 [facility] [id number] [place] [address] 90672- 3231 20 Mar, 2017 [facility] [address] 37110- 3096 19 Mar, 2017 Left shoulder pain M25.512 [facility] [id number] [place] [address] 08890- 8923 13 Mar, 2017 Vertigo R42 [place] [address] 62692- 7880 12 Mar, 2017 Polydipsia R63.1 [place] [address] 65938- 6013 12 Mar, 2017 Polydipsia R63.1 [facility] [id number] [place] [address] 50956- 2655 11 Mar, 2017 Vertigo R42 [place] [address] 92296- 4888 07 Mar, 2017 Type 2 diabetes mellitus with unspecified complications E11.8 ; Vertigo R42 ; Polydipsia R63.1 ; Polyuria R35.8 ; Hypothyroidism ( acquired) E03.9 ; Abnormal urinalysis R82.90 and Dysthymia F34.1 [facility] [id number] [place] [address] 10559- 8964 05 Mar, 2017 Coronary artery disease of table mountain artery with stable angina pectoris, unspecified whether table mountain or transplanted heart I25.118 ; Systolic CHF, chronic I50.22 ; Hyperlipemia, mixed E78.2 and Essential hypertension I10 [facility] [address] [place] [address] [id number] Feb, Dental caries K02.9 [facility] [id number] [place] [address] 90202- 2721 Feb, Type 2 diabetes mellitus with diabetic neuropathy, unspecified E11.40 [facility] [id number] [place] [address] 74715- 8432 Dec, Left shoulder pain M25.512 [facility] [id number] [place] [address] 87374- 8553 Dec, [facility] [id number] [place] [address] 38302- 1710 Dec, Type 2 diabetes mellitus with unspecified complications E11.8 [facility] [id number] [place] [address] [id number] Dec, Dental examination Z01.20 [facility] [id number] [place] [address] 88594- 9266 Dec, Type 2 diabetes mellitus with diabetic neuropathy, unspecified E11.40 [facility] [id number] [place] [address] 42654- 1932 Dec, [facility] [id number] [place] [address] 26437- 4360 Dec, Type 2 diabetes mellitus with diabetic neuropathy, unspecified E11.40 [facility] [id number] [place] [address] 27866- 4607 November, Left shoulder pain M25.512 [facility] [id number] [place] [address] 54717- 1267 November, [facility] [id number] [place] [address] 43651- 7014 November, Type 2 diabetes mellitus with unspecified complications E11.8 and Dysuria R30.0 [facility] [id number] [place] [address] 41810- 7655 Oct, Left shoulder pain M25.512 [facility] [id number] [place] [address] 62676- 8283 Sep, Left shoulder pain M25.512 [place] [address] [place] [address] 64049- 2261 Sep, Pre-op testing Z01.818 [place] [id number] [place] [address] 75561- 3846 Sep, Pre-op testing Z01.818 [place] [id number] [place] [address] 42022- 4629 Sep, Pre-op testing Z01.818 [facility] [id number] [place] [address] 70777- 8478 Sep, Pre-op testing Z01.818 and Mouth pain K13.79 [place] [id number] [place] [address] 55132- 3072 Sep, Left shoulder pain M25.512 [place] [id number] [place] [address] 41036- 9804 08 Aug, 2016 Other eczema L30.8 [place] [id number] [place] [address] 22302- 9515 06 Aug, 2016 PVD (peripheral vascular disease) I73.9 ; Type 2 diabetes mellitus with unspecified complications E11.8 ; Acute cystitis with hematuria N30.01 ; Other eczema L30.8 ; Dysuria R30.0 and Left shoulder pain M25.512 [facility] [address] [place] [address] 71077 -6976 Jul, Otalgia of right ear H92.01 and Blood in ear canal, right H92.21 [place] [id number] [place] [address] 58269- 5450 Jul, Arthralgia, unspecified joint M25.50 ; PVD (peripheral vascular disease) I73.9 and Neuropathy G62.9 [place] [id number] [place] [address] 91882- 8473 Jul, [place] [id number] [place] [address] 02109- 3198 Jun, Medicare annual wellness visit, initial Z00.00 ; Cervicalgia M54.2 ; Radiculopathy of cervical region M54.12 ; Encounter for immunization Z23 ; Type 2 diabetes mellitus with unspecified complications E11.8 and Essential hypertension I10 [facility] [id number] [place] [address] 95401- 4084 Jun, [place] [address] 88868- 2525 May, Hypothyroidism (acquired) E03.9 [place] [address] 05089- 9412 May, Dysuria R30.0 ; Essential hypertension I10 ; Hypothyroidism (acquired) E03.9 and PVD (peripheral vascular disease) I73.9 [facility] [id number] [place] [address] 41886 -3646 May, Burning with urination R30.0 and Acute cystitis with hematuria N30.01 [place] [address] 63560- 0349 May, Dental examination Z01.20 [place] [address] 71839- 9802 May, Hypothyroidism (acquired) E03.9 [place] [id number] [place] [address] 63930- 4208 Feb, [facility] [address] 14857- 1566 Feb, Status post amputation of toe of left foot Z89.422 ; PVD ( peripheral vascular disease) I73.9 ; Type 2 diabetes mellitus with unspecified complications E11.8 and Essential hypertension I10 [facility] [id number] [place] [address] 10646- 0648 Jan, [place] [address] 29621- 6976 Jan, Hypothyroidism (acquired) E03.9 [place] [address] [address]- 1145 Jan, [place] [id number] [place] [address] 80491- 6166 Jan, [facility] [id number] [place] [address] 32305- 3714 Jan, Type 2 diabetes mellitus with unspecified complications E11.8 ; Status post amputation of toe of left foot Z89.422 and Essential ( primary) hypertension I10 [place] [address] [place] [address] 32477- 4392 Jan, Type 2 diabetes mellitus with unspecified complications E11.8 ; Status post amputation of toe of left foot Z89.422 ; Essential hypertension I10 and PVD (peripheral vascular disease) I73.9 [place] [id number] [place] [address] 57740- 1016 Jan, [place] [address] [place] [address] 69886- 7487 Jan, [place] [id number] [place] [address] 45590- 5633 Jan, [place] [address] [place] [address] 85197- 8332 Jan, Weakness R53.1 ; Fatigue, unspecified type R53.83 ; PVD ( peripheral vascular disease) I73.9 ; Acute osteomyelitis of other site M86.18 ; Type 2 diabetes mellitus with diabetic neuropathy, unspecified E11.40 and 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 [place] [address] [place] [address]- 0797 Dec, [place] [id number] [place] [address] 13588- 5237 Dec, Type 2 diabetes mellitus with unspecified complications E11.8 [place] [id number] [place] [address] 63254- 2818 Dec, [facility] [id number] [place] [address] 27398- 6805 Dec, Pressure ulcer, unspecified pressure ulcer stage L89.90 and Type 2 diabetes mellitus with unspecified complications E11.8 [facility] [id number] [place] [address] 14431 -4605 Dec, Toe infection L08.9 [place] [address] 86659- 3759 November, Dental caries K02.9 [place] [address] 67203- 3543 November, [place] [id number] [place] [address] 80321- 0271 November, Dental examination Z01.20 [place] [id number] [place] [address] 89330- 9256 Sep, Lipoma of torso D17.1 and Thoracic neuritis M54.14 [place] [address] [place] [address] 83702- 3857 Sep, [place] [id number] [place] [address] 07677- 7186 Aug, [facility] [id number] [place] [address] 26890 -6916 Jul, Dysuria R30.0 and UTI (urinary tract infection) N39.0 [place] [id number] [place] [address] 03681- 3481 Jun, Left shoulder pain M25.512 [place] [id number] [place] [address] 54053- 2385 May, Shoulder pain, left M25.512 [place] [id number] [place] [address] 14381- 7224 May, [place] [address] [place] [address]- 2720 May, [facility] [id number] [place] [address] 63699- 2496 May, Left shoulder pain M25.512 [place] [address] 76517- 8035 May, [place] [address] 63067- 7539 Apr, Encounter for immunization Z23 [place] [address] 79354- 4192 Apr, Urinary tract infection, site not specified N39.0 ; Hypotension, unspecified I95.9 ; Type 2 diabetes mellitus with unspecified complications E11.8 and Generalized edema R60.1 [place] [address] 80954- 3960 Apr, [place] [address] 98367- 4825 Mar, Diabetes with other specified manifestations, type II or unspecified type, not stated as uncontrolled 250.80 [place] [address] 07065- 9415 Feb, Gout 274.9 and Diabetes 250.00 [place] [id number] [place] [address] 72616- 6902 Jan, [place] [address] 96815- 4780 November, CAD (coronary artery disease) 414.00 and CHF (congestive heart failure) 428.[address] 50469- 2094 Oct, [place] [address] 69532- 7641 Oct, [place] [address] 47751- 0242 Oct, [facility] [place] [facility] [address] [id number] [place] [address]- 3939 Sep, [facility] [place] [facility] [address] [id number] [place] [address]- 6497 Sep, [facility] [place] [facility] [address] [id number] [place] [address]- 7849 Sep, [facility] [place] [facility] [address] [id number] [place] [address]- 0041 Sep, [facility] [place] [facility] [address] [id number] [place] [address]- 4289 Aug, [facility] [place] [facility] [address] [id number] [place] [address]- 9495 Aug, [facility] [place] [facility] [address] [facility] [id number] [place] [address]- 6750 Aug, [facility] [place] [facility] [address] [id number] [place] [address]- 7740 Aug, 2014 [facility] [place] [facility] [address] [facility] [id number] [place] [address]- 7818 Aug, [facility] [place] [facility] [address] [facility] [id number] [place] [address]- 5976 Aug, [facility] [place] [facility] [address] [facility] [id number] [place] [address]- 9023 Aug, [facility] [place] [facility] [address] [id number] [place] [address]- 8717 Aug, [facility] [place] [facility] [address] [id number] [place] [address]- 2940 Jul, [facility] [place] [facility] [address] [facility] [id number] [place] [address]- 8250 Jul, [facility] [place] [facility] [address] [facility] [id number] [place] [address]- 6226 Jul, [facility] [place] [facility] [address] [id number] [place] [address]- 7109 Jul, [facility] [address] [id number] [place] [address]- 8626 Jul, [facility] [address] [id number] [place] [address]- 3108 Jul, [facility] [address] [id number] [place] [address]- 8826 Jul, [facility] [address] [id number] [place] [address]- 9735 Jul, [facility] [address] [id number] [place] [address]- 9448 Jul, [facility] [address] [id number] [place] [address]- 5708 Jul, [facility] [address] [id number] [place] [address]- 7707 Jun, [facility] [address] [id number] [place] [address]- 2589 Jun, [facility] [address] [id number] [place] [address]- 1917 Jun, [facility] [address] [id number] [place] [address]- 3728 Jun, [facility] [address] [id number] [place] [address]- 1547 Jun, [facility] [address] [id number] [place] [address]- 8515 Jun, [facility] [place] [facility] [address] [id number] [place] [address]- 0759 Jun, [facility] [place] [facility] [address] [id number] [place] [address]- 8577 Jun, [facility] [address] [id number] [place] [address]- 6136 Jun, [facility] [place] [facility] [address] [id number] [place] [address]- 9784 Jun, [facility] [place] [facility] [address] [id number] [place] [address]- 3056 May, [facility] [place] [facility] [address] [id number] [place] [address]- 5592 May, [facility] [place] [facility] [address] [id number] [place] [address]- 3604 Mar, [facility] [place] [facility] [address] [id number] [place] [address]- 6541 Mar, [facility] [place] [facility] [address] [id number] [place] [address]- 6944 Mar, [facility] [place] [facility] [address] [id number] [place] [address]- 7126 Mar, [facility] [place] [facility] [address] [id number] [place] [address] Feb, [facility] [place] [facility] [address] [id number] [place] [address] Feb, [facility] [place] [facility] [address] [id number] [place] [address] Feb, [facility] [place] [facility] [address] [id number] [place] [address] Jan, [facility] [place] [facility] [address] [id number] [place] [address] Jan, [facility] [place] [facility] [address] [id number] [place] [address] Jan, [facility] [place] [facility] [address] [id number] [place] [address] Jan, [facility] [place] [facility] [address] [id number] [place] [address] Jan, [facility] [place] [facility] [address] [id number] [place] [address] Jan, [facility] [place] [facility] [address] [id number] [place] [address] Jan, [facility] [place] [facility] [address] [id number] [place] [address] Jan, [facility] [place] [facility] [address] [id number] [place] [address] Jan, [facility] [place] [facility] [address] [id number] [place] [address] Jan, [facility] [place] [facility] [address] [id number] [place] [address] Dec, [facility] [place] [facility] [address] [id number] [place] [address] Dec, [facility] [place] [facility] [address] [id number] [place] [address] November, [facility] [place] [facility] [address] [id number] [place] [address] November, [facility] [place] [facility] [address] [id number] [place] [address] November, [facility] [place] [facility] [address] [id number] [place] [address] November, [facility] [place] [facility] [address] [id number] [place] [address] November, [facility] [place] [facility] [address] [id number] [place] [address] November, [facility] [place] [facility] [address] [id number] [place] [address] November, [facility] [place] [facility] [address] [id number] [place] [address] Oct, [facility] [place] [facility] [address] [address] [id number] [place] [address] Oct, [facility] [place] [facility] [address] [id number] [place] [address] Sep, [facility] [place] [facility] [address] [id number] [place] [address] Sep, [facility] [place] [facility] [address] [id number] [place] [address] Sep, [facility] [place] [facility] [address] [id number] [place] [address] 1455 Sep, [facility] [place] [facility] [address] [id number] [place] [address]79 Sep, [facility] [place] [facility] [address] [id number] [place] [address] Sep, [facility] [place] [facility] [address] [id number] [place] [address] Sep, [facility] [place] [facility] [address] [id number] [place] [address] 9430 Sep, [facility] [place] [facility] [address] [id number] [place] [address] 1328 Sep, [facility] [place] [facility] [address] [id number] [place] [address] Sep, [facility] [place] [facility] [address] [id number] [place] [address] Aug, [facility] [place] [facility] [address] [id number] [place] [address]- 3989 Aug, [facility] [place] [facility] [address] [id number] [place] [address] Jul, [facility] [place] [facility] [address] [id number] [place] [address]- 6006 Jul, [facility] [place] [facility] [address] [id number] [place] [address]- [address] 13 Jul, 2013 [facility] [place] [facility] [address] [id number] [place] [address]- 1219 Jul, [facility] [place] [facility] [address] [id number] [place] [address]- [address] Jul, [facility] [place] [facility] [address] [id number] [place] [address]- 3337 Jul, [facility] [place] [facility] [address] [facility] [id number] [place] [address] 3932 Jun, [facility] [place] [facility] [address] [id number], [place] [address] Jun, [facility] [place] [facility] [address] [id number] [place] [address]- 9476 Jun, [facility] [place] [facility] [address] [id number] [place] [address]- 0148 Jun, [facility] [place] [facility] [address] [id number] [place] [address]- 3532 May, [facility] [place] [facility] [address] [id number], [place] [address] 1953 May, [facility] [place] [facility] [address] [id number], [place] [address]- 3085 May, [facility] [place] [facility] [address] [id number], [place] [address]- 1851 May, [facility] [place] [facility] [address] [id number], [place] [address]- 4[address] May, [facility] [place] [facility] [address] [id number], [place] [address]- [address] Apr, [facility] [place] [facility] [address] [id number] [place] [address]- 9528 Apr, [facility] [place] [facility] [address] [id number], [place] [address]- 3538 Apr, [facility] [place] [facility] [address] [id number], [place] [address]- 9066 Apr, [facility] [place] [facility] [address] [id number] [place] [address]- 3519 Apr, [facility] [place] [facility] [address] [id number] [place] [address]- 0319 Apr, [facility] [place] [facility] [address] [id number] [place] [address] Apr, [facility] [place] [facility] [address] [id number] [place] [address]- 1447 Apr, [facility] [place] [facility] [address] [id number] [place] [address]- 6774 Apr, [facility] [place] [facility] [address] [id number] [place] [address]- 4117 Apr, [facility] [place] [facility] [address] [id number] [place] [address]- 1292 Apr, [facility] [place] [facility] [address] [id number] [place] [address] Apr, [facility] [place] [facility] [address] [id number] [place] [address]- 2365 Mar, [facility] [place] [facility] [address] [id number] [place] [address]- 6243 Mar, [facility] [place] [facility] [address] [id number] [place] [address]- 0695 Feb, [facility] [place] [facility] [address] [id number] [place] [address]- 5132 Jan, [facility] [place] [facility] [address] [id number] [place] [address]- 3600 Jan, [facility] [place] [facility] [address] [id number] [place] [address]- 1975 Jan, [facility] [place] [facility] [address] [id number] [place] [address]- 2546 Jan, [facility] [place] [facility] [address] [id number] [place] [address]- 2491 Dec, [facility] [place] [facility] [address] [id number] [place] [address]- 4046 Dec, [facility] [address] [id number] [place] [address]- 8743 Dec, [facility] [address] [id number] [place] [address]- 3769 Dec, [facility] [address] [id number] [place] [address]- 8459 Dec, [facility] [address] [id number] [place] [address]- [address] 07 Dec, 2012 [facility] [address] [id number] [place] [address]- 5634 Dec, [facility] [address] [id number] [place] [address]- [address] November, [facility] [address] [id number] [place] [address]- 6187 November, [facility] [address] [id number] [place] [address]- 5166 November, [facility] [address] [id number] [place] [address]- 2018 Oct, [facility] [place] [facility] [address] [id number] [place] [address]- 5432 Oct, [facility] [place] [facility] [address] [id number] [place] [address]- 2639 Oct, [facility] [place] [facility] [address] [id number] [place] [address]- 2522 Oct, [facility] [place] [facility] [address] [id number] [place] [address]- 5117 Oct, [facility] [place] [facility] [address] [id number] [place] [address]- 3974 Sep, [facility] [place] [facility] [address] [id number] [place] [address]- 4535 Sep, [facility] [address] [id number] [place] [address]- 5690 Sep, [facility] [place] [facility] [address] [id number] [place] [address]- 7106 Sep, [facility] [address] [id number] [place] [address]- 2526 Aug, [facility] [place] [facility] [address] [id number] [place] [address]- 8282 Aug, [facility] [address] [id number] [place] [address]- 3001 Aug, [facility] [address] [id number] [place] [address]- 6676 Aug, [facility] [address] [facility] [id number] [place] [address]- 1592 Jul, [facility] [address] [id number] [place] [address]- 3362 Jul, [facility] [address] [facility] [id number] [place] [address]- 0297 Jun, [facility] [address] [facility] [id number] [place] [address]- 8109 Jun, [facility] [address] [facility] [id number] [place] [address]- 8972 Jun, [facility] [place] [facility] [address] [id number] [place] [address]- 2548 Jun, [facility] [place] [facility] [address] [id number] [place] [address]- 0588 May, [facility] [place] [facility] [address] [facility] [id number] [place] [address]- [address] May, [facility] [place] [facility] [address] [facility] [id number] [place] [address]- 6089 May, [facility] [place] [facility] [address] [id number] [place] [address]- 9216 May, [facility] [place] [facility] [address] [id number] [place] [address] Apr, [facility] [place] [facility] [address] [id number] [place] [address]- 9730 Apr, [facility] [place] [facility] [address] [id number] [place] [address]- 7918 Apr, [facility] [place] [facility] [address] [id number] [place] [address]- 2662 Apr, [facility] [place] [facility] [address] [id number] [place] [address]- 5042 Apr, [facility] [place] [facility] [address] [id number] [place] [address]- 7969 Apr, [facility] [place] [facility] [address] [id number] [place] [address]- 6306 Apr, [facility] [place] [facility] [address] [id number] [place] [address]- 1748 Apr, [facility] [place] [facility] [address] [id number] [place] [address]- 5841 Apr, [facility] [place] [facility] [address] [id number] [place] [address]- 4918 Apr, [facility] [place] [facility] [address] [id number] [place] [address]- 6315 Feb, [facility] [place] [facility] [address] [id number] [place] [address]- 1547 Feb, [facility] [place] [facility] [address] [id number] [place] [address]- 9512 Jan, [facility] [place] [facility] [address] [id number] [place] [address]- 1844 Jan, [facility] [place] [facility] [address] [id number] [place] [address]- 8067 Jan, [facility] [place] [facility] [address] [id number] [place] [address]- 7952 Jan, [facility] [place] [facility] [address] [id number] [place] [address]- 4056 Jan, [facility] [place] [facility] [address] [id number] [place] [address]- 7236 Jan, [facility] [place] [facility] [address] [id number] [place] [address]- 3361 Dec, [facility] [place] [facility] [address] [id number] [place] [address]- 1618 November, [facility] [place] [facility] [address] [id number] [place] [address]- 7416 November, [facility] [place] [facility] [address] [id number] [place] [address]- 9071 November, [facility] [place] [facility] [address] [id number] [place] [address]- 3740 Sep, [facility] [place] [facility] [address] [id number] [place] [address]- 6263 Sep, [facility] [place] [facility] [address] [id number] [place] [address]- 3144 Sep, [facility] [place] [facility] [address] [id number] [place] [address]- 8692 Sep, [facility] [place] [facility] [address] [id number], [place] [address]- 1512 Sep, [facility] [place] [facility] [address] [id number] [place] [address]- 5806 Sep, [facility] [place] [facility] [address] [id number] [place] [address]- 3996 Aug, [facility] [place] [facility] [address] [id number] [place] [address]- 7976 Aug, [facility] [place] [facility] [address] [id number] [place] [address]- 2793 Aug, [facility] [address] [id number] [place] [address]- 1093 Jul, [facility] [address] [id number] [place] [address]- 8884 Jul, [facility] [address] [id number] [place] [address]- 9368 Jul, [facility] [address] [id number] [place] [address]- 2808 Jul, [facility] [address] [id number] [place] [address]- 0551 Jun, [facility] [address] [id number] [place] [address]- 1986 Jun, [facility] [address] [facility] [id number] [place] [address]- 2071 Jun, [facility] [address] [id number] [place] [address]- 4353 Jun, [facility] [address] [facility] [id number] [place] [address]- 5508 Jun, [facility] [address] [facility] [id number] [place] [address]- 8925 Jun, [facility] [address] [id number] [place] [address]- 3444 May, [facility] [address] [id number] [place] [address]- 2533 May, [facility] [place] [facility] [address] [id number] [place] [address]- 2259 May, [facility] [place] [facility] [address] [facility] [id number] [place] [address]- 4706 Apr, [facility] [address] [id number] [place] [address]- 7449 Jan, [facility] [address] [id number] [place] [address]- 9995 20 Jun, 2010 [facility] [place] [facility] [address] [id number] [place] [address]- 7996 20 Jun, 2010 [facility] [address] [id number] [place] [address]- 0146 15 Jun, 2010 [facility] [place] [facility] [address] [id number] [place] [address] 2546 15 Jun, 2010 [facility] [address] [id number] [place] [address]- 3086 15 Jun, 2010 [facility] [place] [facility] [address] [id number] [place] [address]- 9656 13 Jun, 2010 [facility] [address] [id number] [place] [address]- 2736 Jun, [facility] [address] [id number] [place] [address]- 3067 Apr, [facility] [address] [id number] [place] [address]- 6605 Feb, [facility] [place] [facility] [address] [id number] [place] [address]- 6548 15 Aug, 2009 [facility] [place] [facility] [address] [id number] [place] [address]- 8169 Jul, [facility] [place] [facility] [address] [id number] [place] [address]- 8312 Jul, [facility] [place] [facility] [address] [id number] [place] [address]- 7226 29 Jun, 2009 [facility] [place] [facility] [address] [id number] [place] [address]- 2546 Jun, [facility] [place] [facility] [address] [id number] [place] 4738 Jun, [facility] [place] [facility] [address] [id number], [place] [address]- 0210 Jun, [facility] [address], [place] [address]- 6034 Jun, [facility] [address] 5764 Jun, [facility] [address] 6289 Jun, [facility] [address], [place] [address]- 5629 May, [facility] [id number] [place] [address]256- 3975 May, [facility] [address], [place] [address]- 7427 May, [facility] [id number] [place] [address]- 8331 May, [facility] [address], [place] [address]- 7196 May, [facility] [address], [place] [address]- 7057 May, [facility] [address], [place] [address]- 2414 May, [facility] [address], [place] [address]- 7411 Apr, [facility] [address], [place] [address]- 2681 Apr, [facility] [address], [place] [address]- 1004 Jan, [facility] [address] [address] Oct, IMMUNIZATIONS No Known Immunizations SOCIAL HISTORY Never Assessed REASON FOR VISIT [facility]osp follow up, needs refills, possible on going bladder infection--Hubert Augustine MA PLAN OF CARE Activity Details Follow Up 4 Weeks Reason:DM VITAL SIGNS Height 62 in 2017-06-03 Weight 189.0 lbs 2017-06-03 Temperature 97.8 degrees Fahrenheit 2017-06-03 Heart Rate 82 bpm 2017-06-03 Respiratory Rate 20 2017-06-03 BMI 34.56 kg/m2 2017-06-03 Blood pressure systolic 124 mmHg 2017-06-03 Blood pressure diastolic 78 mmHg 2017-06-03 MEDICATIONS Medication Instructions Dosage Frequency Start Date End Date Duration Status NovoLog Flexpen 100 UNIT/ML 5u after breakfast only Active Levothyroxine Sodium 25 MCG Orally Once a day 1 tablet on an empty stomach in the morning 24h 30 Active Citalopram Hydrobromide 20 mg Orally Once a day 1.5 tablets 24h 90 days Active Meclizine HCl 12.5 MG Orally twice a day 1 - 2 tablets as needed h Mar Active Clopidogrel Bisulfate 75 MG Orally Once a day 1 tablet 24h 30 Active Betamethasone Dipropionate Aug 0.05 % Externally 2 times a day 1 application to affected area 12Aug, Active Fenofibric Acid 135 MG Orally Once a day 1 capsule 24h Active Crestor 10 MG Orally Once a day 1 tablet 24h Active Trutest Blood Glucose Test Strip N/A subcutaneously 6 times a day. E11.40 test blood sugar Dec, Active Fluconazole 150 MG Orally Once a day 1 tablet 24h May, 1 dose Active Keflex 500 mg Orally 4 times a day 1 capsule 6h Active Zontivity 2.08 MG Orally Once a day 1 tablet 24h Active Carvedilol 6.25 MG Orally 2 times a day 0.5 tablet 12h Active Tramadol HCl 50 MG Orally 2 times a day 1 tablet as needed h Aug, 28 days Active Tresiba FlexTouch 200 UNIT/ML Subcutaneous once a day Inject 217 units 24h Jan, Active Aspirin 81 MG Orally Once a day 1 tablet 24h Active BD Pen Needle Mini U/F 31G X 5 MM subcutaneously 4 times a day as directed 6h Dec, 30 days Active Fluticasone Propionate 50 MCG/ACT Nasally twice a day 1 spray in each nostril 12Mar, Not-Taking RESULTS Name Result Date Reference Range UA LONG DIP (IN HOUSE) 2017-06-03 Lot # [id number] Exp date 02/23/18 Clarity cloudy Color yellow Odor none GLU negative VALENCIA negative KET negative SG >=1.030 BLO 2+ pH 5.5 Protein negative URO 0.2 NIT negative TA 1+ Lot # [id number] Exp date 02/23/18 PROCEDURES Procedure Date Ordered Result Body Site HOLTER MONITOR (OUTPATIENT) 2017-06-03 NOT PERFORMED/SEE INTERNAL NOTES URINALYSIS, AUTO, W/O SCOPE Jun 03, 2017 [facility] VISIT ESTABLISHED PATIENT Jun 03, 2017 INSTRUCTIONS MEDICATIONS ADMINISTERED No Known Medications [...]
--- OUTSIDE RECORDS SUMMARY | 2018-11-09 13:37 | XMS REPORT ---
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 Name Role Phone MICHAEL, LUIS CARLOS Unavailable PROBLEMS Type Condition ICD9-CM Code KSK47-NC Code Onset Dates Condition Status SNOMED Code Problem Hyperlipemia, mixed E78.2 Active 003293446 Problem Hypoglycemia E16.2 Active 559103789 Problem Hypernatremia E87.0 Active 94371860 Problem Neurogenic orthostatic hypotension G90.3 Active 766568254 Problem Dementia with Lewy bodies G31.83 Active 241124054 Problem Mixed stress and urge urinary incontinence N39.46 Active 545326149 Problem 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 Active 0602804915629 Problem Unsteady gait R26.81 Active 62730054 Problem Hallucinations R44.3 Active 4234697 Problem Parkinsons disease G20 Active 55540689 Problem Episodic cluster headache, not intractable G44.019 Active 876427131 Problem Type 2 diabetes mellitus with unspecified complications E11.8 Active 91646109 Problem PVD (peripheral vascular disease) I73.9 Active 312643494 Problem Dementia in other diseases classified elsewhere without behavioral disturbance F02.80 Active 538084417 Problem Dysuria R30.0 Active 72067326 Problem Hypothyroidism (acquired) E03.9 Active 833211587 Problem Neuropathy G62.9 Active 383354355 Problem Status post amputation of toe of left foot Z89.422 Active 618556553 Problem Dysthymia F34.1 Active 08155749 Problem Essential hypertension I10 Active 44270370 Problem Polydipsia R63.1 Active 09954664 ALLERGIES No Information ENCOUNTERS Encounter Location Date Diagnosis [facility] [address] [facility] [id number] [address] Dec, [facility] [address] [facility] [id number] [place] [address] 24834 -6190 Oct, [place] [id number] [place] [address] 05684- 4308 Oct, [facility] [address] [place] [id number] [place] [address] 08939 -1556 Oct, Acute cystitis without hematuria N30.00 and Viral upper respiratory tract infection J06.9 [place] [address] [place] [id number] [place] [address] 36410- 8628 Oct, [place] [address] [place] [id number] [place] [address] 39673- 6120 Oct, Type 2 diabetes mellitus with unspecified complications E11.8 [place] [address] [place] [id number] [place] [address] 89692- 9472 Oct, Left shoulder pain M25.512 [place] [address] [place] [id number] [place] [address] 51250- 7329 16 Oct, 2017 Type 2 diabetes mellitus with unspecified complications E11.8 ; Dysuria R30.0 and Neurogenic orthostatic hypotension G90.3 [place] [address] [place] [id number] [place] [address] 54559- 5340 Sep, Left shoulder pain M25.512 [place] [address] [place] [id number] [place] [address] 13697- 4787 12 Sep, 2017 Medicare annual wellness visit, initial Z00.00 ; Parkinsons disease G20 ; Type 2 diabetes mellitus with unspecified complications E11.8 ; Essential hypertension I10 ; 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 ; Hypothyroidism (acquired ) E03.9 ; PVD (peripheral vascular disease) I73.9 ; Dysthymia F34.1 ; Hyperlipemia, mixed E78.2 ; Neuropathy G62.9 ; Encounter for immunization Z23 ; Encounter for other screening for malignant neoplasm of breast Z12.39 and Mixed stress and urge urinary incontinence N39.46 [place] [address] [place] [id number] [place] [address] 97426- 8099 Aug, Parkinsons disease G20 [place] [address] [place] [id number] [place] [address] 01482- 9744 Aug, Type 2 diabetes mellitus with unspecified complications E11.8 ; Left shoulder pain M25.512 and Hypotensive episode I95.9 [place] [address] [place] [id number] [place] [address] 11038- 6335 Aug, 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 [place] [address] 45750- 7247 Aug, Type 2 diabetes mellitus with unspecified complications E11.8 [place] [address] 69726- 6572 Jul, Callus of foot L84 [place] [address] 66826- 9638 Jul, [place] [address] 83734- 2369 Jul, Callus of foot L84 ; Episodic cluster headache, not intractable G44.019 ; Type 2 diabetes mellitus with unspecified complications E11.8 and Parkinsons disease G20 [place] [address] [place] [id number] [place] [address] 36117- 9689 Jul, [place] [address] [place] [id number] [place] [address] 92854- 7426 Jul, [place] [address] 21132- 1512 Jun, Type 2 diabetes mellitus with unspecified complications E11.8 ; Unsteady gait R26.81 ; Forgetfulness R68.89 and Hallucinations R44.3 [place] [address] [place] [id number] [place] [address] 99278- 7075 Jun, [place] [address] [place] [id number] [place] [address] 53598- 3747 Jun, Left shoulder pain M25.512 [place] [address] [place] [id number] [place] [address] 75302- 3813 13 May, 2017 Hypernatremia E87.0 and Polydipsia R63.1 [place] [address] [place] [id number] [place] [address] 16671- 9617 08 May, 2017 Hypernatremia E87.0 and Polydipsia R63.1 [place] [address] 72133- 2587 May, Hypoglycemia E16.2 ; Dysuria R30.0 ; Unsteadiness on feet R26.81 ; Forgetfulness R68.89 ; Type 2 diabetes mellitus with unspecified complications E11.8 and Yeast infection involving the vagina and surrounding area B37.3 [place] [address] [place] [id number] [place] [address] 66232- 6245 May, Acute cystitis without hematuria N30.00 [facility] [address] [place] [id number] [place] [address] 59714 -4911 Apr, Dysuria R30.0 and Acute cystitis without hematuria N30.00 [place] [address] [place] [id number] [place] [address] 56850- 2969 Apr, Hypernatremia E87.0 and Polydipsia R63.1 [place] [address] [place] [id number] [place] [address] 69831- 0060 Apr, Vertigo R42 and Type 2 diabetes mellitus with unspecified complications E11.8 [place] [address] [place] [id number] [place] [address] 20048- 8912 Mar, [place] [address] 02338- 8797 19 Mar, 2017 Left shoulder pain M25.512 [place] [address] [place] [id number] [place] [address] 82570- 0404 13 Mar, 2017 Vertigo R42 [place] [address] 98243- 1031 Mar, Polydipsia R63.1 [facility] [address] 12103- 6030 12 Mar, 2017 Polydipsia R63.1 [place] [address] 24609- 4567 11 Mar, 2017 Vertigo R42 [place] [address] 18835- 2109 07 Mar, 2017 Type 2 diabetes mellitus with unspecified complications E11.8 ; Vertigo R42 ; Polydipsia R63.1 ; Polyuria R35.8 ; Hypothyroidism ( acquired) E03.9 ; Abnormal urinalysis R82.90 and Dysthymia F34.1 [place] [address] 63939- 0829 05 Mar, 2017 Coronary artery disease of onondaga artery with stable angina pectoris, unspecified whether onondaga or transplanted heart I25.118 ; Systolic CHF, chronic I50.22 ; Hyperlipemia, mixed E78.2 and Essential hypertension I10 [facility] [address] [id number] Feb, Dental caries K02.9 [place] [address] 21403- 2597 Feb, Type 2 diabetes mellitus with diabetic neuropathy, unspecified E11.40 [place] [address] 67077- 9117 23 Dec, 2016 Left shoulder pain M25.512 [facility] [address] 06402- 0565 Dec, [place] [address] 26753- 1245 Dec, Type 2 diabetes mellitus with unspecified complications E11.8 [facility] [address] [id number] Dec, Dental examination Z01.20 [place] [address] [place] [address]- 8243 Dec, Type 2 diabetes mellitus with diabetic neuropathy, unspecified E11.40 [facility] [address] [place] [id number] [place] [address] 488282- 1681 Dec, [facility] [address] [place] [id number] [place] [address] 477794- 2606 Dec, Type 2 diabetes mellitus with diabetic neuropathy, unspecified E11.40 [facility] [address] [place] [id number] [place] [address] 70987- 8330 November, Left shoulder pain M25.512 [place] [address] [place] [id number] [place] [address] 275792- 5246 November, [place] [address] [place] [id number] [place] [address] 76280- 8537 November, Type 2 diabetes mellitus with unspecified complications E11.8 and Dysuria R30.0 [place] [address] [place] [id number] [place] [address] 36855- 5136 Oct, Left shoulder pain M25.512 [place] [address] [place] [id number] [place] [address] 96511- 4039 Sep, Left shoulder pain M25.512 [place] [address] [place] [id number] [place] [address] 45188- 4181 Sep, Pre-op testing Z01.818 [place] [address] [place] [id number] [place] [address] 86453- 4708 Sep, Pre-op testing Z01.818 [place] [address] [place] [id number] [place] [address] 70319- 8574 Sep, Pre-op testing Z01.818 [place] [address] [place] [id number] [place] [address] 96622- 1527 Sep, Pre-op testing Z01.818 and Mouth pain K13.79 [place] [address] [place] [id number] [place] [address] 66730- 4624 Sep, Left shoulder pain M25.512 [place] [address] [place] [id number] [place] [address] 28675- 7956 08 Aug, 2016 Other eczema L30.8 [place] [address] [place] [id number] [place] [address] 39851- 7049 06 Aug, 2016 PVD (peripheral vascular disease) I73.9 ; Type 2 diabetes mellitus with unspecified complications E11.8 ; Acute cystitis with hematuria N30.01 ; Other eczema L30.8 ; Dysuria R30.0 and Left shoulder pain M25.512 [facility] [address] [place] [id number] [place] [address] 43353 -4276 Jul, Otalgia of right ear H92.01 and Blood in ear canal, right H92.21 [place] [address] 80185- 0442 Jul, Arthralgia, unspecified joint M25.50 ; PVD (peripheral vascular disease) I73.9 and Neuropathy G62.9 [place] [address] [place] [id number] [place] [address] 10023- 9138 Jul, [place] [address] [place] [id number] [place] [address] 45043- 4951 Jun, Medicare annual wellness visit, initial Z00.00 ; Cervicalgia M54.2 ; Radiculopathy of cervical region M54.12 ; Encounter for immunization Z23 ; Type 2 diabetes mellitus with unspecified complications E11.8 and Essential hypertension I10 [place] [address] [place] [id number] [place] [address] 01878- 4897 Jun, [place] [address] 43475- 1997 May, Hypothyroidism (acquired) E03.9 [place] [address] [place] [id number] [place] [address] 54059- 3894 May, Dysuria R30.0 ; Essential hypertension I10 ; Hypothyroidism (acquired) E03.9 and PVD (peripheral vascular disease) I73.9 [facility] [address] [address] May, Burning with urination R30.0 and Acute cystitis with hematuria N30.01 [facility] [address] [address]- 4680 May, Dental examination Z01.20 [facility] [address] [place] [id number] [place] [address] 14702- 0289 May, Hypothyroidism (acquired) E03.9 [facility] [address] [place] [id number] [place] [address] 17214- 1460 Feb, [facility] [address] [place] [id number] [place] [address] 72881- 3822 Feb, Status post amputation of toe of left foot Z89.422 ; PVD ( peripheral vascular disease) I73.9 ; Type 2 diabetes mellitus with unspecified complications E11.8 and Essential hypertension I10 [facility] [address] [place] [address] 40165- 3391 Jan, [facility] [address] [place] [id number] [place] [address] 20541 2541 Jan, Hypothyroidism (acquired) E03.9 [facility] [address] [place] [id number] [place] [address] 36844- 2549 Jan, [facility] [address] [place] [id number] [place] [address] 97390- 2541 Jan, [facility] [address] [place] [id number] [place] [address] 16082- 2549 Jan, Type 2 diabetes mellitus with unspecified complications E11.8 ; Status post amputation of toe of left foot Z89.422 and Essential ( primary) hypertension I10 [facility] [address] [place] [address] 29545- 2540 Jan, Type 2 diabetes mellitus with unspecified complications E11.8 ; Status post amputation of toe of left foot Z89.422 ; Essential hypertension I10 and PVD (peripheral vascular disease) I73.9 [place] [address] [place] [id number] [place] [address] 19813- 9499 Jan, [facility] [address] [place] [id number] [place] [address] 04398- 4589 Jan, [facility] [address] [place] [id number] [place] [address] 11202- 5738 Jan, [place] [address] [place] [id number] [place] [address] 62854- 8888 Jan, Weakness R53.1 ; Fatigue, unspecified type R53.83 ; PVD ( peripheral vascular disease) I73.9 ; Acute osteomyelitis of other site M86.18 ; Type 2 diabetes mellitus with diabetic neuropathy, unspecified E11.40 and 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 [place] [address] 38610- 0658 Dec, [place] [address] [place] [id number] [place] [address] 40171- 3827 Dec, Type 2 diabetes mellitus with unspecified complications E11.8 [place] [address] [place] [id number] [place] [address] 18723- 2504 Dec, [place] [address] [place] [id number] [place] [address] 88247- 9864 Dec, Pressure ulcer, unspecified pressure ulcer stage L89.90 and Type 2 diabetes mellitus with unspecified complications E11.8 [facility] [address] [place] [id number] [place] [address] 73522 -5896 Dec, Toe infection L08.9 [place] [address] 73059- 7052 November, Dental caries K02.9 [place] [address] [place] [id number] [place] [address] 09057- 2632 November, [facility] [address] 80264- 8983 November, Dental examination Z01.20 [place] [address] [place] [id number] [place] [address] 22698- 5222 Sep, Lipoma of torso D17.1 and Thoracic neuritis M54.14 [place] [address] [place] [id number] [place] [address] 28965- 7478 Sep, [place] [address] [place] [id number] [place] [address] 18965- 1815 Aug, [facility] [address] [place] [id number] [place] [address] 64060 -9133 Jul, Dysuria R30.0 and UTI (urinary tract infection) N39.0 [place] [address] [place] [id number] [place] [address] 42543- 2488 Jun, Left shoulder pain M25.512 [place] [address] [place] [id number] [place] [address] 04798- 1104 May, Shoulder pain, left M25.512 [place] [address] [place] [id number] [place] [address] 84440- 3135 May, [place] [address] [place] [id number] [place] [address] 58088- 4080 May, [place] [address] [place] [id number] [place] [address] 13842- 3126 May, Left shoulder pain M25.512 [place] [address] [place] [id number] [place] [address] 40448- 6983 May, [place] [address] [place] [id number] [place] [address] 44627- 3251 Apr, Encounter for immunization Z23 [place] [address] [place] [id number] [place] [address] 08681- 3134 08 Apr, 2015 Urinary tract infection, site not specified N39.0 ; Hypotension, unspecified I95.9 ; Type 2 diabetes mellitus with unspecified complications E11.8 and Generalized edema R60.1 [facility] [address] [place] [id number] [place] [address] 72179- 5290 Apr, [facility] [address] [place] [id number] [place] [address] 92295- 7324 Mar, Diabetes with other specified manifestations, type II or unspecified type, not stated as uncontrolled 250.80 [facility] [address] [place] [id number] [place] [address] 39771- 4146 Feb, Gout 274.9 and Diabetes 250.00 [facility] [address] [place] [id number] [place] [address] 24272- 5090 Jan, [facility] [address] [place] [id number] [place] [address] 34334- 5932 November, CAD (coronary artery disease) 414.00 and CHF (congestive heart failure) 428.0 [facility] [address] [place] [id number] [place] [address] 71420- 1422 Oct, [facility] [address] [place] [id number] [place] [address] 77133- 3982 Oct, [facility] [address] [place] [id number] [place] [address] 01611- 0978 Oct, [facility] [address] [place] [id number] [place] [address] 01720- 0463 Sep, [facility] [address] [place] [id number] [place] [address] 41727- 1862 Sep, [facility] [address] [place] [id number] [place] [address] 45579- 0166 Sep, [facility] [address] [place] [id number] [place] [address] 09541- 0034 Sep, [facility] [address] [place] [id number] [place] [address] 06444- 3448 Aug, [facility] [address] [place] [address] 916590- 0602 Aug, [facility] [place] [facility] [address] [id number] [place] [address]- 7617 Aug, [facility] [place] [facility] [address] [id number] [place] [address]- 0703 Aug, 2014 [facility] [place] [facility] [address] [id number] [place] [address]- 1757 Aug, 2014 [facility] [place] [facility] [address] [id number] [place] [address]- 8221 Aug, 2014 [facility] [place] [facility] [address] [id number] [place] [address]- 4683 Aug, [facility] [place] [facility] [address] [id number] [place] [address]- 5270 Aug, [facility] [place] [facility] [address] [id number] [place] [address]- 3255 Jul, [facility] [place] [facility] [address] [id number] [place] [address]- 6084 Jul, [facility] [place] [facility] [address] [id number] [place] [address]- 4282 Jul, [facility] [place] [facility] [address] [id number] [place] [address]- 2275 Jul, [facility] [place] [facility] [address] [id number], [place] [address]- 9009 Jul, [facility] [place] [facility] [address] [id number], [place] [address]- 2706 Jul, [facility] [place] [facility] [address] [id number] [place] [address]- 7591 Jul, [facility] [place] [facility] [address] [id number], [place] [address]- 8593 Jul, [facility] [place] [facility] [address] [id number] [place] [address]- 1248 Jul, [facility] [place] [facility] [address] [id number] [place] [address]- 3523 Jul, [facility] [place] [facility] [address] [id number] [place] [address]- 4965 Jun, [facility] [place] [facility] [address] [id number] [place] [address]- 6830 Jun, [facility] [place] [facility] [address] [id number] [place] [address]- 7280 Jun, [facility] [place] [facility] [address] [id number] [place] [address]- 6757 Jun, [facility] [place] [facility] [address] [id number] [place] [address]- 5254 Jun, [facility] [place] [facility] [address] [id number] [place] [address]- 5161 Jun, [facility] [place] [facility] [address] [id number] [place] 7033 Jun, [facility] [place] [facility] [address] [id number] [place] [address]- 7559 Jun, [facility] [place] [facility] [address] [id number] [place] [address]- 7271 Jun, [facility] [place] [facility] [address] [facility] [id number] [place] 8461 Jun, [facility] [place] [facility] [address] [id number] [place] [address]- 2373 May, [facility] [place] [facility] [address] [id number] [place] [address]- 2135 14 May, 2014 [facility] [place] [facility] [address] [id number] [place] [address]- 0895 18 Mar, 2014 [facility] [place] [facility] [address] [id number] [place] 8558 18 Mar, 2014 [facility] [place] [facility] [address] [id number] [place] [address]- 2931 Mar, [facility] [place] [facility] [address] [id number] [place] [address]- 1571 Mar, [facility] [place] [facility] [address] [id number] [place] [address]- 9865 Feb, [facility] [place] [facility] [address] [id number] [place] [address]- 8427 Feb, [facility] [place] [facility] [address] [id number] [place] [address]- 9244 Feb, [facility] [place] [facility] [address] [id number] [place] [address]- 5777 Jan, [facility] [place] [facility] [address] [id number] [place] [address]- 3141 Jan, [facility] [place] [facility] [address] [id number] [place] [address]- 6532 Jan, [facility] [place] [facility] [address] [id number] [place] [address]- 5035 Jan, [facility] [place] [facility] [address] [id number] [place] [address] Jan, [facility] [place] [facility] [address] [id number] [place] [address] Jan, [facility] [place] [facility] [address] [id number] [place] [address] Jan, [facility] [place] [facility] [address] [id number] [place] [address] Jan, [facility] [place] [facility] [address] [id number] [place] [address] Jan, [facility] [place] [facility] [address] [id number] [place] [address] Jan, [facility] [place] [facility] [address] [id number] [place] [address] Dec, [facility] [place] [facility] [address] [id number] [place] [address] Dec, [facility] [place] [facility] [address] [id number] [place] [address] November, [facility] [place] [facility] [address] [id number] [place] [address] November, [facility] [place] [facility] [address] [id number] [place] [address] November, [facility] [place] [facility] [address] [id number] [place] [address] November, [facility] [place] [facility] [address] [id number] [place] [address] November, [facility] [place] [facility] [address] [id number] [place] [address] November, [facility] [place] [facility] [address] [id number] [place] [address] November, [facility] [place] [facility] [address] [id number] [place] [address] Oct, [facility] [place] [facility] [address] [id number] [place] [address] Oct, [facility] [place] [facility] [address] [id number] [place] [address] Sep, [facility] [place] [facility] [address] [id number] [place] [address] Sep, [facility] [place] [facility] [address] [id number] [place] [address] Sep, [facility] [place] [facility] [address] [id number] [place] [address] Sep, [facility] [place] [facility] [address] [id number] [place] [address]- 5360 Sep, [facility] [place] [facility] [address] [id number] [place] [address] Sep, [facility] [place] [facility] [address] [id number] [place] [address] 1052 Sep, [facility] [address] [id number] [place] [address] Sep, [facility] [place] [facility] [address] [id number] [place] [address] 2797 Sep, [facility] [place] [facility] [address] [id number] [place] [address] 3760 Sep, [facility] [place] [facility] [address] [id number] [place] [address] 4[address] Aug, [facility] [place] [facility] [address] [id number] [place] [address] 8955 Aug, [facility] [place] [facility] [address] [id number] [place] [address] 67[address] Jul, [facility] [place] [facility] [address] [id number] [place] [address] 2740 Jul, [facility] [address] [id number] [place] [address] 1491 Jul, [facility] [place] [facility] [address] [id number] [place] [address] 3095 Jul, [facility] [address] [id number] [place] [address] 8069 Jul, [facility] [place] [facility] [address] [id number] [place] [address] 0986 Jul, [facility] [place] [facility] [address] [id number] [place] [address] 0378 Jun, [facility] [place] [facility] [address] [id number] [place] [address]- 5057 Jun, [facility] [place] [facility] [address] [id number] [place] [address]- 2546 Jun, [facility] [place] [facility] [address] [id number] [place] [address]- 5588 Jun, [facility] [place] [facility] [address] [id number] [place] [address]- 5570 May, [facility] [place] [facility] [address] [id number] [place] [address]- 3739 14 May, 2013 [facility] [place] [facility] [address] [id number] [place] [address] 1932 May, [facility] [place] [facility] [address] [id number] [place] [address]- 1569 May, [facility] [place] [facility] [address] [id number] [place] [address]- 6500 May, [facility] [place] [facility] [address] [id number] [place] [address]- 9922 Apr, [facility] [place] [facility] [address] [id number] [place] [address]- 8934 Apr, [facility] [place] [facility] [address] [id number], [place] [address] Apr, [facility] [place] [facility] [address] [id number] [place] [address]- 7870 Apr, [facility] [place] [facility] [address] [id number], [place] [address] Apr, [facility] [place] [facility] [address] [id number], [place] [address] 6[address] Apr, [facility] [place] [facility] [address] [id number], [place] [address]- 0704 Apr, [facility] [place] [facility] [address] [id number] [place] [address]- 4375 Apr, [facility] [place] [facility] [address] [id number], [place] [address] 8752 Apr, [facility] [place] [facility] [address] [id number] [place] [address]- 3057 Apr, [facility] [place] [facility] [address] [id number] [place] [address]- 0406 Apr, [facility] [address] [id number] [place] [address]- 7282 Apr, [facility] [place] [facility] [address] [id number] [place] [address]- 7627 Mar, [facility] [place] [facility] [address] [id number] [place] [address]- 7166 Mar, [facility] [place] [facility] [address] [id number] [place] [address]- 8620 Feb, [facility] [place] [facility] [address] [id number] [place] [address]- 3896 Jan, [facility] [place] [facility] [address] [id number] [place] [address]- 7477 Jan, [facility] [place] [facility] [address] [id number] [place] [address]- 9399 Jan, [facility] [place] [facility] [address] [id number] [place] [address]- 9746 Jan, [facility] [place] [facility] [address] [id number] [place] [address]- 7139 Dec, [facility] [place] [facility] [address] [id number] [place] [address]- 4747 Dec, [facility] [place] [facility] [address] [id number] [place] [address]- 2320 Dec, [facility] [place] [facility] [address] [id number] [place] [address]- 3684 Dec, [facility] [place] [facility] [address] [id number] [place] [address]- 7808 Dec, [facility] [place] [facility] [address] [id number] [place] [address]- 0053 Dec, [facility] [place] [facility] [address] [id number] [place] [address]- 9653 05 Dec, 2012 [facility] [place] [facility] [address] [id number] [place] [address]- 7203 November, [facility] [address] [id number] [place] [address]- 5108 November, [facility] [address] [id number] [place] [address]- 5969 November, [facility] [address] [id number] [place] [address]- 5651 Oct, [facility] [address] [id number] [place] [address]- 6294 Oct, [facility] [address] [id number] [place] [address]- 1427 Oct, [facility] [address] [id number] [place] [address]- 8959 Oct, [facility] [address] [id number] [place] [address]- 5476 Oct, [facility] [address] [id number] [place] [address]- 3477 Sep, [facility] [address] [id number] [place] [address]- 2062 Sep, [facility] [address] [id number] [place] [address]- 1389 Sep, [facility] [address] [id number] [place] [address]- 3177 Sep, [facility] [address] [id number] [place] [address]- 9049 Aug, [facility] [place] [facility] [address] [id number] [place] [address]- 3281 Aug, [facility] [address] [id number] [place] [address]- 4223 Aug, [facility] [address] [id number], [place] [address]- 5647 Aug, [facility] [place] [facility] [address] [id number] [place] [address]- 6524 Jul, [facility] [place] [facility] [address] [id number] [place] [address] Jul, [facility] [place] [facility] [address] [facility] [id number] [place] [address]- 0227 Jun, [facility] [place] [facility] [address] [id number] [place] [address]- 4908 Jun, [facility] [place] [facility] [address] [id number] [place] [address]- 8175 Jun, [facility] [place] [facility] [address] [id number] [place] [address]- 7529 Jun, [facility] [place] [facility] [address] [facility] [id number] [place] [address]- 2001 May, [facility] [place] [facility] [address] [id number] [place] [address]- 4046 May, [facility] [place] [facility] [address] [id number] [place] [address]- 1689 May, [facility] [place] [facility] [address] [facility] [id number] [place] [address]- 0368 May, [facility] [place] [facility] [address] [id number], [place] [address]- 4692 Apr, [facility] [place] [facility] [address] [id number], [place] [address]- 6420 Apr, [facility] [place] [facility] [address] [id number], [place] [address]- 2895 Apr, [facility] [place] [facility] [address] [facility] [id number], [place] [address]- 2156 Apr, [facility] [place] [facility] [address] [facility] [id number] [place] [address]- 7488 30 Apr, 2012 [facility] [place] [facility] [address] [id number] [place] [address]- 1869 Apr, [facility] [place] [facility] [address] [id number] [place] [address]- 3535 Apr, [facility] [place] [facility] [address] [id number] [place] [address] 2546 Apr, [facility] [place] [facility] [address] [id number] [place] [address]- 8067 Apr, [facility] [place] [facility] [address] [id number] [place] [address]- 2543 Apr, [facility] [place] [facility] [address] [id number] [place] [address]- 4827 Feb, [facility] [place] [facility] [address] [id number] [place] [address]- 0598 Feb, [facility] [place] [facility] [address] [id number] [place] [address]- 4625 Jan, [facility] [place] [facility] [address] [id number] [place] [address]- 4446 Jan, [facility] [place] [facility] [address] [id number] [place] [address]- 7652 Jan, [facility] [place] [facility] [address] [id number] [place] [address]- 2705 Jan, [facility] [place] [facility] [address] [id number] [place] [address]- 9942 Jan, [facility] [place] [facility] [address] [id number] [place] [address]- 3475 Jan, [facility] [place] [facility] [address] [id number] [place] [address]- 8024 Dec, [facility] [place] [facility] [address] [id number] [place] [address]- 2546 November, [facility] [place] [facility] [address] [id number] [place] [address]- 3942 November, [facility] [address] [id number] [place] [address]- 2538 November, [facility] [place] [facility] [address] [id number] [place] [address]- 4516 Sep, [facility] [place] [facility] [address] [id number] [place] [address]- 7257 Sep, [facility] [place] [facility] [address] [id number] [place] [address]- 7210 Sep, [facility] [place] [facility] [address] [id number] [place] [address]- 3531 Sep, [facility] [place] [facility] [address] [id number] [place] [address]- 6885 Sep, [facility] [place] [facility] [address] [id number] [place] [address]- 4047 Sep, [facility] [place] [facility] [address] [id number] [place] [address]- 1898 Aug, [facility] [place] [facility] [address] [id number] [place] [address]- 5555 Aug, [facility] [place] [facility] [address] [id number] [place] [address]- 6940 Aug, [facility] [place] [facility] [address] [id number] [place] [address]- 8056 Jul, [facility] [place] [facility] [address] [id number] [place] [address]- 1125 Jul, [facility] [place] [facility] [address] [id number] [place] [address]- 5343 Jul, [facility] [place] [facility] [address] [id number] [place] [address]- 4309 Jul, [facility] [place] [facility] [address] [id number] [place] [address]- 0121 Jun, [facility] [place] [facility] [address] [id number] [place] [address] 08 Jun, 2011 [facility] [address] [id number] [place] [address]- 1866 06 Jun, 2011 [facility] [place] [facility] [address] [id number] [place] [address] 2546 06 Jun, 2011 [facility] [address] [id number] [place] [address]- 3916 05 Jun, 2011 [facility] [place] [facility] [address] [id number] [place] [address] 2546 Jun, [facility] [address] [id number] [place] [address]- 0104 May, [facility] [place] [facility] [address] [id number] [place] [address]- 9449 May, [facility] [address] [id number] [place] [address]- 7641 May, [facility] [address] [id number] [place] [address]- 6482 Apr, [facility] [place] [facility] [address] [id number] [place] [address]- 4443 Jan, [facility] [address] [id number] [place] [address]- 8748 Jun, [facility] [place] [facility] [address] [id number] [place] [address] 2546 Jun, [facility] [place] [facility] [address] [id number] [place] [address] 2546 15 Jun, 2010 [facility] [place] [facility] [address] [id number] [place] [address] 2546 15 Jun, 2010 [facility] [place] [facility] [address] [id number] [place] [address] 2546 15 Jun, 2010 [facility] [place] [facility] [address] [id number] [place] [address] 2546 13 Jun, 2010 [facility] [place] [facility] [address] [id number] [place] [address]- 5423 13 Jun, 2010 [facility] [address] [id number] [place] [address]- 7346 21 Apr, 2010 [facility] [address] [id number] [place] [address] 2546 17 Feb, 2010 [facility] [address] [id number] [place] [address]- 5946 15 Aug, 2009 [facility] [address] [id number] [place] [address] 2545 18 Jul, 2009 [facility] [address] [id number] [place] [address]- 5226 Jul, [facility] [address] [id number] [place] [address]303 29 Jun, 2009 [facility] [address] [id number] [place] [address]- 9265 28 Jun, 2009 [facility] [address] [id number] [place] [address]- 4505 28 Jun, 2009 [facility] [address] [id number] [place] 7382 22 Jun, 2009 [facility] [address] [id number] [place] [address]- 4556 16 Jun, 2009 [facility] [address] [id number], [place] [address] 2540 09 Jun, 2009 [facility] [address] [id number] [place] [address] 2546 Jun, [facility] [address] [id number] [place] [address]- 2546 30 May, 2009 [facility] [address] [id number] [place] [address]- 2546 27 May, 2009 [facility] [address] [id number], [place] [address]- 8389 May, [facility] [address], [place] [address]- 8828 May, [facility] [address], [place] [address]- 3779 May, [facility] [id number], [place] [address]- 7372 May, [facility] [id number] [place] [address]- 7257 May, [facility] [id number] [place] [address]- 8948 Apr, [facility] [address], [place] [address]- 8490 Apr, [facility] [address], [place] [address]- 8576 Jan, [facility] [address] [id number], [place] [address] Oct, IMMUNIZATIONS No Known Immunizations SOCIAL HISTORY Never Assessed REASON FOR VISIT Lab (walk-in) PLAN OF CARE VITAL SIGNS MEDICATIONS Unknown Medications RESULTS Name Result Date Reference Range UA W/ MICROSCOPY 2017-03-31 Specific [place] 1.011 1.005-1.030 pH 6.0 5.0-7.5 Urine-Color Yellow Yellow Appearance Clear Clear WBC Esterase Negative Negative Protein Negative Negative/Trace Glucose Negative Negative Ketones Negative Negative Occult Blood Negative Negative Bilirubin Negative Negative Urobilinogen,Semi-Qn 0.2 0.2-1.0 Nitrite, Urine Negative Negative Microscopic Examination Microscopic Examination See below: WBC 0-5 0 - 5 RBC 0-2 0 - 2 Epithelial Cells (non renal) 0-10 0 - 10 Epithelial Cells (renal) Casts Cast Type Crystals Crystal Type Mucus Threads Present Not Estab. Bacteria Few None seen/Few Yeast Trichomonas Comment PROCEDURES Procedure Date Ordered Result Body Site LAB NOT BILLED BY [facility] Mar 31, 2017 INSTRUCTIONS MEDICATIONS ADMINISTERED No Known Medications [...]
--- OUTSIDE RECORDS SUMMARY | 2018-11-09 13:39 | XMS REPORT ---
Author Author PRABHA HILL [facility] Address [address] [place] [address] Care Team Providers Care Restaurant Assistant Name Role Phone PRABHA HILL Unavailable PROBLEMS Type Condition ICD9-CM Code [id number] Code Onset Dates Condition Status SNOMED Code Problem Hyperlipemia, mixed E78.2 Active 236173230 Problem Hypoglycemia E16.2 Active 384869428 Problem Hypernatremia E87.0 Active 94310731 Problem Neurogenic orthostatic hypotension G90.3 Active 810694841 Problem Dementia with Lewy bodies G31.83 Active 195373863 Problem Mixed stress and urge urinary incontinence N39.46 Active 638628410 Problem Coronary artery disease involving [place] coronary artery of [place] heart without angina pectoris I25.10 Active 2919808497806 Problem Unsteady gait R26.81 Active 35056655 Problem Hallucinations R44.3 Active 3458361 Problem Parkinsons disease G20 Active 01828324 Problem Episodic cluster headache, not intractable G44.019 Active 689662303 Problem Type 2 diabetes mellitus with unspecified complications E11.8 Active 85036677 Problem PVD (peripheral vascular disease) I73.9 Active 008749342 Problem Dementia in other diseases classified elsewhere without behavioral disturbance F02.80 Active 688232537 Problem Dysuria R30.0 Active 03743057 Problem Hypothyroidism (acquired) E03.9 Active 566144181 Problem Neuropathy G62.9 Active 692178663 Problem Status post amputation of toe of left foot Z89.422 Active 432426543 Problem Dysthymia F34.1 Active 20118047 Problem Essential hypertension I10 Active 82339624 Problem Polydipsia R63.1 Active 26429875 ALLERGIES No Information ENCOUNTERS Encounter Location Date Diagnosis [facility] [address] [facility] [id number] [address] Dec, [facility] [id number] [place] [address] 87796- 2595 November, [facility] [id number] [place] [address] 25429- 2648 November, [facility] [id number] [place] [address] 38413- 6513 November, Left shoulder pain M25.512 [facility] [id number] [place] [address] 18138- 8871 Oct, [facility] [id number] [place] [address] 10509 -2475 Oct, [facility] [id number] [place] [address] 13860- 8622 Oct, Parkinsons disease G20 [facility] [id number] [place] [address] 57605 -4725 Oct, Acute cystitis without hematuria N30.00 and Viral upper respiratory tract infection J06.9 [facility] [id number] [place] [address] 06489- 6163 Oct, [facility] [id number] [place] [address] 04124- 0360 Oct, Type 2 diabetes mellitus with unspecified complications E11.8 [facility] [id number] [place] [address] 33820- 6451 Oct, Left shoulder pain M25.512 [facility] [id number] [place] [address] 86536- 6490 Oct, Type 2 diabetes mellitus with unspecified complications E11.8 ; Dysuria R30.0 and Neurogenic orthostatic hypotension G90.3 [facility] [id number] [place] [address] 84509- 9523 Sep, Left shoulder pain M25.512 [facility] [id number] [place] [address] 09172- 2302 Sep, Medicare annual wellness visit, initial Z00.00 [...] Mixed stress and urge urinary incontinence N39.46 [place] [address] 97452- 3296 Aug, Parkinsons disease G20 [address] 04589- 0652 Aug, Type 2 diabetes mellitus with unspecified complications E11.8 ; Left shoulder pain M25.512 and Hypotensive episode I95.9 [place] [address] 23258- 4421 Aug, Coronary artery disease involving [place] coronary artery of [place] heart without angina pectoris I25.10 [place] [address] 47457- 3569 07 Aug, 2017 Type 2 diabetes mellitus with unspecified complications E11.8 [place] [address] 25927- 9620 Jul, Callus of foot L84 [place] [address] 32542- 6740 Jul, [place] [address] 44706- 9229 Jul, Callus of foot L84 ; Episodic cluster headache, not intractable G44.019 ; Type 2 diabetes mellitus with unspecified complications E11.8 and Parkinsons disease G20 [place] [address] 40889- 0498 Jul, [place] [address] 53107- 5874 Jul, [place] [id number] [place] [address] 84201- 8748 Jun, Type 2 diabetes mellitus with unspecified complications E11.8 ; Unsteady gait R26.81 ; Forgetfulness R68.89 and Hallucinations R44.3 [place] [id number] [place] [address] 18075- 4673 Jun, [place] [address] 77560- 5960 Jun, Left shoulder pain M25.512 [place] [id number] [place] [address] 52628- 5630 May, Hypernatremia E87.0 and Polydipsia R63.1 [place] [id number] [place] [address] 45494- 3543 May, Hypernatremia E87.0 and Polydipsia R63.1 [place] [id number] [place] [address] 19027- 5150 May, Hypoglycemia E16.2 ; Dysuria R30.0 ; Unsteadiness on feet R26.81 ; Forgetfulness R68.89 ; Type 2 diabetes mellitus with unspecified complications E11.8 and Yeast infection involving the vagina and surrounding area B37.3 [place] [address] [place] [address] 74078- 3700 May, Acute cystitis without hematuria N30.00 [facility] [id number] [place] [address] 21212 -6595 Apr, Dysuria R30.0 and Acute cystitis without hematuria N30.00 [facility] [id number] [place] [address] 96327- 3847 Apr, Hypernatremia E87.0 and Polydipsia R63.1 [facility] [address] [place] [address] 86641- 0818 Apr, Vertigo R42 and Type 2 diabetes mellitus with unspecified complications E11.8 [place] [id number] [place] [address] 94748- 5056 20 Mar, 2017 [place] [address] 09245- 4276 19 Mar, 2017 Left shoulder pain M25.512 [place] [address] 06040- 7044 13 Mar, 2017 Vertigo R42 [place] [address] 73671- 9771 12 Mar, 2017 Polydipsia R63.1 [place] [address] 21843- 2705 12 Mar, 2017 Polydipsia R63.1 [place] [address] 13756- 9739 11 Mar, 2017 Vertigo R42 [place] [address] 58958- 8882 07 Mar, 2017 Type 2 diabetes mellitus with unspecified complications E11.8 ; Vertigo R42 ; Polydipsia R63.1 ; Polyuria R35.8 ; Hypothyroidism ( acquired) E03.9 ; Abnormal urinalysis R82.90 and Dysthymia F34.1 [place] [id number] [place] [address] 04343- 1507 05 Mar, 2017 Coronary artery disease of [place] artery with stable angina pectoris, unspecified whether [place] or transplanted heart I25.118 ; Systolic CHF, chronic I50.22 ; Hyperlipemia, mixed E78.2 and Essential hypertension I10 [facility] [id number] [place] [address] [id number] Feb, Dental caries K02.9 [place] [id number] [place] [address] 63192- 2282 10 Feb, 2017 Type 2 diabetes mellitus with diabetic neuropathy, unspecified E11.40 [place] [address] 14771- 7296 Dec, Left shoulder pain M25.512 [facility] [address] [place] [address] 38307- 0951 Dec, [facility] [id number] [place] [address] 19661- 4554 Dec, Type 2 diabetes mellitus with unspecified complications E11.8 [facility] [address] [place] [address] [id number] Dec, Dental examination Z01.20 [facility] [id number] [place] [address] 24392- 7991 08 Dec, 2016 Type 2 diabetes mellitus with diabetic neuropathy, unspecified E11.40 [facility] [id number] [place] [address] 47839- 5753 Dec, [facility] [id number] [place] [address] 69990- 9197 Dec, Type 2 diabetes mellitus with diabetic neuropathy, unspecified E11.40 [facility] [id number] [place] [address] 35232- 0794 November, Left shoulder pain M25.512 [facility] [id number] [place] [address] 64769- 3330 November, [facility] [id number] [place] [address] 63452- 8692 November, Type 2 diabetes mellitus with unspecified complications E11.8 and Dysuria R30.0 [facility] [address] [place] [address] 19792- 4041 Oct, Left shoulder pain M25.512 [facility] [id number] [place] [address] 65529- 2068 Sep, Left shoulder pain M25.512 [facility] [address] [place] [address] 33897- 7424 Sep, Pre-op testing Z01.818 [facility] [id number] [place] [address] 86159- 4478 Sep, Pre-op testing Z01.818 [place] [address] 55042- 6587 Sep, Pre-op testing Z01.818 [place] [address] 16733- 5258 Sep, Pre-op testing Z01.818 and Mouth pain K13.79 [place] [address] 43738- 8744 Sep, Left shoulder pain M25.512 [place] [address] 05171- 3604 08 Aug, 2016 Other eczema L30.8 [place] [address] 37867- 8941 06 Aug, 2016 PVD (peripheral vascular disease) I73.9 ; Type 2 diabetes mellitus with unspecified complications E11.8 ; Acute cystitis with hematuria N30.01 ; Other eczema L30.8 ; Dysuria R30.0 and Left shoulder pain M25.512 [facility] [id number] [place] [address] 21508 -4512 Jul, Otalgia of right ear H92.01 and Blood in ear canal, right H92.21 [place] [id number] [place] [address] 48980- 0518 Jul, Arthralgia, unspecified joint M25.50 ; PVD (peripheral vascular disease) I73.9 and Neuropathy G62.9 [place] [id number] [place] [address] 11388- 8740 Jul, [place] [id number] [place] [address] 93897- 0169 Jun, Medicare annual wellness visit, initial Z00.00 ; Cervicalgia M54.2 ; Radiculopathy of cervical region M54.12 ; Encounter for immunization Z23 ; Type 2 diabetes mellitus with unspecified complications E11.8 and Essential hypertension I10 [facility] [id number] [place] [address] 74386- 6136 Jun, [facility] [id number] [place] [address] 55991- 4547 May, Hypothyroidism (acquired) E03.9 [facility] [id number] [place] [address] 96734- 4392 May, Dysuria R30.0 ; Essential hypertension I10 ; Hypothyroidism (acquired) E03.9 and PVD (peripheral vascular disease) I73.9 [facility] [id number] [place] [address] 18148 -4682 May, Burning with urination R30.0 and Acute cystitis with hematuria N30.01 [facility] [id number] [place] [address] 99833- 5125 May, Dental examination Z01.20 [facility] [id number] [place] [address] 99471- 7026 May, Hypothyroidism (acquired) E03.9 [facility] [id number] [place] [address] 70967- 7130 Feb, [facility] [id number] [place] [address] 27998- 2604 Feb, Status post amputation of toe of left foot Z89.422 ; PVD ( peripheral vascular disease) I73.9 ; Type 2 diabetes mellitus with unspecified complications E11.8 and Essential hypertension I10 [facility] [id number] [place] [address] 97770- 9571 Jan, [facility] [id number] [place] [address] 21891- 6603 Jan, Hypothyroidism (acquired) E03.9 [facility] [id number] [place] [address] 53469- 4736 Jan, [facility] [id number] [place] [address] 03945- 2347 Jan, [place] [id number] [place] [address] 74874- 3864 Jan, Type 2 diabetes mellitus with unspecified complications E11.8 ; Status post amputation of toe of left foot Z89.422 and Essential ( primary) hypertension I10 [place] [id number] [place] [address] 90499- 7513 Jan, Type 2 diabetes mellitus with unspecified complications E11.8 ; Status post amputation of toe of left foot Z89.422 ; Essential hypertension I10 and PVD (peripheral vascular disease) I73.9 [place] [id number] [place] [address] 30539- 5388 Jan, [place] [id number] [place] [address] 54974- 5105 Jan, [place] [id number] [place] [address] 26889- 1496 Jan, [place] [id number] [place] [address] 36161- 3559 Jan, Weakness R53.1 ; Fatigue, unspecified type R53.83 ; PVD ( peripheral vascular disease) I73.9 ; Acute osteomyelitis of other site M86.18 ; Type 2 diabetes mellitus with diabetic neuropathy, unspecified E11.40 and half-way 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.4 [place] [address] [place] [address] 91041- 6963 Dec, [place] [id number] [place] [address] 80877- 2759 Dec, Type 2 diabetes mellitus with unspecified complications E11.8 [place] [id number] [place] [address] 48165- 0980 Dec, [place] [id number] [place] [address] 45882- 1884 Dec, Pressure ulcer, unspecified pressure ulcer stage L89.90 and Type 2 diabetes mellitus with unspecified complications E11.8 [facility] [id number] [place] [address] 06056 -1298 Dec, Toe infection L08.9 [facility] [id number] [place] [address] 46865- 2658 November, Dental caries K02.9 [place] [id number] [place] [address] 04074- 4730 November, [place] [id number] [place] [address] 24191- 2075 November, Dental examination Z01.20 [place] [id number] [place] [address] 03068- 1038 Sep, Lipoma of torso D17.1 and Thoracic neuritis M54.14 [place] [id number] [place] [address] 53025- 2081 Sep, [place] [id number] [place] [address] 72604- 6221 Aug, [facility] [id number] [place] [address] 26939 -9788 Jul, Dysuria R30.0 and UTI (urinary tract infection) N39.0 [place] [id number] [place] [address] 15701- 9377 Jun, Left shoulder pain M25.512 [place] [id number] [place] [address] 35648- 3837 May, Shoulder pain, left M25.512 [place] [id number] [place] [address] 02819- 8549 May, [place] [id number] [place] [address] 78379- 7322 May, [place] [id number] [place] [address] 71235- 3323 May, Left shoulder pain M25.512 [facility] [id number] [place] [address] 06014- 9323 May, [facility] [id number] [place] [address] 96114- 3316 Apr, Encounter for immunization Z23 [place] [id number] [place] [address] 31424- 9968 Apr, Urinary tract infection, site not specified N39.0 ; Hypotension, unspecified I95.9 ; Type 2 diabetes mellitus with unspecified complications E11.8 and Generalized edema R60.1 [place] [address] 80069- 4032 Apr, [place] [id number] [place] [address] 04457- 5933 Mar, Diabetes with other specified manifestations, type II or unspecified type, not stated as uncontrolled 250.80 [place] [address] 78127- 4796 Feb, Gout 274.9 and Diabetes 250.00 [place] [id number] [place] [address] 75597- 8120 Jan, [place] [id number] [place] [address] 15509- 3493 November, CAD (coronary artery disease) 414.00 and CHF (congestive heart failure) 428.0 [place] [id number] [place] [address] 22027- 9449 Oct, [facility] [id number] [place] [address] 96244- 3526 Oct, [facility] [id number] [place] [address] 75866- 8617 Oct, [facility] [id number] [place] [address] 70958- 5527 Sep, [facility] [address] 54486- 5296 Sep, [facility] [place] [facility] [address] [id number] [place] [address]- 8313 Sep, [facility] [place] [facility] [address] [id number] [place] [address]- 2192 Sep, [facility] [place] [facility] [address] [facility] [id number] [place] [address]- 5046 Aug, 2014 [facility] [place] [facility] [address] [id number] [place] [address]- 6109 Aug, 2014 [facility] [place] [facility] [address] [id number] [place] [address]- 2444 Aug, 2014 [facility] [place] [facility] [address] [facility] [id number] [place] [address]- 0944 Aug, 2014 [facility] [place] [facility] [address] [facility] [id number] [place] [address]- 3682 Aug, 2014 [facility] [place] [facility] [address] [facility] [id number] [place] [address]- 0243 Aug, [facility] [place] [facility] [address] [facility] [id number] [place] [address]- 9824 Aug, [facility] [place] [facility] [address] [facility] [id number] [place] [address]- 1328 Aug, [facility] [place] [facility] [address] [facility] [id number] [place] [address]- 2295 Jul, [facility] [place] [facility] [address] [id number] [place] [address]- 5347 Jul, [facility] [place] [facility] [address] [facility] [id number] [place] [address]- 5159 Jul, [facility] [place] [facility] [address] [facility] [id number] [place] [address]- 9470 Jul, [facility] [place] [facility] [address] [facility] [id number] [place] [address]- 0998 Jul, [facility] [place] [facility] [address] [id number] [place] [address]- 3748 Jul, [facility] [place] [facility] [address] [id number] [place] [address]- 8628 Jul, [facility] [place] [facility] [address] [id number] [place] [address]- 0862 Jul, [facility] [place] [facility] [address] [id number] [place] [address]- 4900 Jul, [facility] [place] [facility] [address] [id number] [place] [address]- 3833 Jul, [facility] [place] [facility] [address] [id number] [place] [address]- 8713 Jun, [facility] [place] [facility] [address] [id number] [place] [address]- 3323 Jun, [facility] [place] [facility] [address] [id number] [place] [address]- 0536 Jun, [facility] [place] [facility] [address] [id number] [place] [address]- 9721 Jun, [facility] [place] [facility] [address] [id number] [place] [address]- 3135 Jun, [facility] [place] [facility] [address] [id number] [place] [address]- 9586 Jun, [facility] [place] [facility] [address] [id number] [address]- 4993 Jun, [facility] [place] [facility] [address] [id number] [place] [address]- 0173 Jun, [facility] [place] [facility] [address] [id number] [place] [address]- 0486 Jun, [facility] [place] [facility] [address] [id number] [place] [address]- 2408 Jun, [facility] [place] [facility] [address] [id number] [address]- 3454 14 May, 2014 [facility] [place] [facility] [address] [id number] [place] [address]- 3054 14 May, 2014 [facility] [place] [facility] [address] [id number] [place] [address]- 0194 18 Mar, 2014 [facility] [place] [facility] [address] [id number] [place] [address] 18 Mar, 2014 [facility] [place] [facility] [address] [id number] [place] [address] Mar, [facility] [place] [facility] [address] [id number] [place] [address] Mar, [facility] [place] [facility] [address] [id number] [place] [address] Feb, [facility] [place] [facility] [address] [id number] [place] [address] Feb, [facility] [place] [facility] [address] [id number] [place] [address] Feb, [facility] [place] [facility] [address] [id number] [place] [address] Jan, [facility] [place] [facility] [address] [id number] [place] [address] Jan, [facility] [place] [facility] [address] [id number] [place] [address] Jan, [facility] [place] [facility] [address] [id number] [place] [address] Jan, [facility] [place] [facility] [address] [id number] [place] [address] Jan, [facility] [place] [facility] [address] [id number] [place] [address] Jan, [facility] [place] [facility] [address] [id number] [place] [address] Jan, [facility] [place] [facility] [address] [id number] [place] [address] Jan, [facility] [place] [facility] [address] [id number] [place] [address] Jan, [facility] [place] [facility] [address] [id number] [place] [address] Jan, [facility] [place] [facility] [address] [id number] [place] [address] Dec, [facility] [place] [facility] [address] [id number] [place] [address] Dec, [facility] [place] [facility] [address] [id number] [place] [address] November, [facility] [place] [facility] [address] [id number] [place] [address] November, [facility] [place] [facility] [address] [id number] [place] [address] November, [facility] [place] [facility] [address] [id number] [place] [address]- [address] November, [facility] [place] [facility] [address] [id number] [place] [address] November, [facility] [place] [facility] [address] [id number] [place] [address] November, [facility] [place] [facility] [address] [id number] [place] [address] November, [facility] [place] [facility] [address] [id number] [place] [address] Oct, [facility] [place] [facility] [address] [id number] [place] [address] Oct, [facility] [place] [facility] [address] [id number] [place] [address] Sep, [facility] [place] [facility] [address] [id number] [place] [address]- [address] Sep, [facility] [place] [facility] [address] [id number] [place] [address] Sep, [facility] [place] [facility] [address] [id number] [place] [address] Sep, [facility] [place] [facility] [address] [id number] [place] [address] Sep, [facility] [place] [facility] [address] [id number] [place] [address] Sep, [facility] [place] [facility] [address] [id number] [place] [address]- [address] Sep, [facility] [place] [facility] [address] [id number] [place] [address] Sep, [facility] [place] [facility] [address] [id number] [place] [address] Sep, [facility] [place] [facility] [address] [address] [id number] [place] [address] Sep, [facility] [place] [facility] [address] [id number] [place] [address] Aug, [facility] [place] [facility] [address] [id number] [place] [address] Aug, [facility] [place] [facility] [address] [id number] [place] [address] 40[address] Jul, [facility] [place] [facility] [address] [id number] [place] [address] Jul, [facility] [place] [facility] [address] [id number] [place] [address] 9410 Jul, [facility] [place] [facility] [address] [id number] [place] [address] Jul, [facility] [place] [facility] [address] [id number] [place] [address] Jul, [facility] [place] [facility] [address] [id number] [place] [address] Jul, [facility] [address] [id number] [place] [address] 1006 Jun, [facility] [place] [facility] [address] [id number] [place] [address] Jun, [facility] [address] [id number] [place] [address] Jun, [facility] [place] [facility] [address] [id number] [place] [address] 2096 Jun, [facility] [address] [id number] [place] [address] 1153 May, [facility] [place] [facility] [address] [id number] [place] [address] 8469 May, [facility] [address] [id number] [place] [address] 5839 May, [facility] [address] [id number] [place] [address] 7531 May, [facility] [place] [facility] [address] [id number] [place] [address]- 4728 May, [facility] [address] [id number] [place] [address] 3037 Apr, [facility] [place] [facility] [address] [id number] [place] [address]- 8554 Apr, [facility] [place] [facility] [address] [id number] [place] [address]- 9450 Apr, [facility] [place] [facility] [address] [id number] [place] [address] 8484 Apr, [facility] [place] [facility] [address] [id number] [place] [address]- 7642 Apr, [facility] [place] [facility] [address] [id number] [place] [address]- 7982 Apr, [facility] [place] [facility] [address] [id number] [place] [address] 6701 Apr, [facility] [place] [facility] [address] [id number] [place] [address] 8937 Apr, [facility] [place] [facility] [address] [id number] [place] [address]- 1658 Apr, [facility] [place] [facility] [address] [id number] [place] [address]- 2668 Apr, [facility] [place] [facility] [address] [id number] [place] [address]- 6112 Apr, [facility] [place] [facility] [address] [id number] [place] [address]- 8398 Apr, [facility] [place] [facility] [address] [id number] [place] [address] 3099 Mar, [facility] [place] [facility] [address] [id number] [place] [address] 2104 Mar, [facility] [place] [facility] [address] [id number] [place] [address] 9108 Feb, [facility] [place] [facility] [address] [id number] [address] 8[address] Jan, [facility] [place] [facility] [address] [id number] [place] [address] 8998 Jan, [facility] [place] [facility] [address] [id number] [place] [address] 2541 Jan, [facility] [place] [facility] [address] [id number] [place] [address] 2544 Jan, [facility] [place] [facility] [address] [id number] [place] [address]- 25[address] Dec, [facility] [place] [facility] [address] [id number] [place] [address] 2548 Dec, [facility] [place] [facility] [address] [id number] [place] [address] Dec, [facility] [address] [id number] [place] [address] 1771 Dec, [facility] [place] [facility] [address] [id number] [place] [address]- 1788 Dec, [facility] [address] [id number] [place] [address] 7052 Dec, [facility] [place] [facility] [address] [id number] [place] [address]- 9671 05 Dec, 2012 [facility] [address] [id number] [place] [address] 6[address] November, [facility] [place] [facility] [address] [id number] [place] [address]- 9626 November, [facility] [address] [id number] [place] [address]- 6473 November, [facility] [place] [facility] [address] [id number] [place] [address]- 7278 Oct, [facility] [address] [id number] [place] [address]- 1313 Oct, [facility] [place] [facility] [address] [id number] [place] [address]- 1067 Oct, [facility] [place] [facility] [address] [id number] [place] [address]- 3130 Oct, [facility] [place] [facility] [address] [id number] [place] [address]- 1679 Oct, [facility] [place] [facility] [address] [id number] [place] [address]- 4027 Sep, [facility] [place] [facility] [address] [id number] [place] [address]- 8956 Sep, [facility] [place] [facility] [address] [id number] [place] [address]- 7790 Sep, [facility] [place] [facility] [address] [id number] [place] [address]- 9016 Sep, [facility] [place] [facility] [address] [id number] [place] [address]- 9756 Aug, [facility] [place] [facility] [address] [id number] [place] [address] 2546 Aug, [facility] [place] [facility] [address] [id number] [place] [address] 2546 Aug, [facility] [place] [facility] [address] [id number] [place] [address] 2547 Aug, [facility] [place] [facility] [address] [id number] [place] [address]- 5998 Jul, [facility] [place] [facility] [address] [id number] [place] [address] 7340 Jul, [facility] [place] [facility] [address] [id number] [place] [address] 9443 Jun, [facility] [place] [facility] [address] [id number] [place] [address] 6717 Jun, [facility] [place] [facility] [address] [id number] [place] [address] 3880 Jun, [facility] [place] [facility] [address] [id number] [place] [address]- 5552 Jun, [facility] [place] [facility] [address] [id number] [place] [address]- 254 May, [facility] [place] [facility] [address] [id number] [place] [address] 2545 May, [facility] [place] [facility] [address] [id number] [place] [address]- 2546 May, [facility] [place] [facility] [address] [id number] [place] [address]- 2549 May, [facility] [place] [facility] [address] [id number] [place] [address]- 3186 Apr, [facility] [place] [facility] [address] [id number] [place] [address]- 6773 Apr, [facility] [place] [facility] [address] [id number] [place] [address]- 2270 Apr, [facility] [place] [facility] [address] [id number] [place] [address]- 6441 Apr, [facility] [place] [facility] [address] [id number] [place] [address]- 2274 Apr, [facility] [place] [facility] [address] [id number] [place] [address] Apr, [facility] [place] [facility] [address] [id number] [place] [address]- 4729 Apr, [facility] [place] [facility] [address] [id number] [place] [address]- 6483 Apr, [facility] [place] [facility] [address] [id number] [place] [address]- 6675 Apr, [facility] [place] [facility] [address] [id number] [place] [address]- 6340 Apr, [facility] [place] [facility] [address] [id number] [place] [address]- 7421 Feb, [facility] [place] [facility] [address] [id number] [place] [address]- 7097 Feb, [facility] [place] [facility] [address] [id number] [address]- 59[address] Jan, [facility] [place] [facility] [address] [id number] [place] [address]- 3253 Jan, [facility] [place] [facility] [address] [id number] [place] [address]- 6360 Jan, [facility] [place] [facility] [address] [id number] [place] [address]- 8862 Jan, [facility] [place] [facility] [address] [id number] [place] [address] [address], [facility] [address] [id number] [place] [address]- 3426 Jan, [facility] [address] [id number] [place] [address] [address] Dec, [facility] [address] [id number] [place] [address]- 0906 November, [facility] [address] [id number] [place] [address] [address] November, [facility] [address] [id number] [place] [address]- 0136 November, [facility] [address] [id number] [place] [address]- 7986 Sep, [facility] [address] [id number] [place] [address]- 7787 Sep, [facility] [address] [id number] [place] [address]- 5944 Sep, [facility] [address] [id number] [place] [address]- 1763 Sep, [facility] [address] [id number] [place] [address]- 3556 Sep, [facility] [place] [facility] [address] [id number] [place] [address]- 2546 Sep, [facility] [address] [id number] [place] [address]- 2546 Aug, [facility] [place] [facility] [address] [id number] [place] [address]- 8626 Aug, [facility] [place] [facility] [address] [id number] [place] [address]- 2546 Aug, [facility] [address] [id number] [place] [address]- 6471 Jul, [facility] [place] [facility] [address] [id number] [place] [address]- 0221 Jul, [facility] [place] [facility] [address] [id number] [place] [address]- 0870 Jul, [facility] [place] [facility] [address] [id number] [place] [address]- 6432 Jul, [facility] [place] [facility] [address] [id number] [place] [address]- 3516 Jun, [facility] [place] [facility] [address] [id number] [place] [address]- 6369 Jun, [facility] [place] [facility] [address] [id number] [place] [address]- 1868 Jun, [facility] [place] [facility] [address] [id number] [place] [address]- 4328 Jun, [facility] [place] [facility] [address] [id number] [place] [address]- 3787 Jun, [facility] [place] [facility] [address] [id number] [place] [address]- 0072 Jun, [facility] [place] [facility] [address] [id number] [place] [address]- 7127 May, [facility] [place] [facility] [address] [id number] [place] [address]- 7897 May, [facility] [place] [facility] [address] [id number] [place] [address]- 9406 May, [facility] [place] [facility] [address] [id number] [place] [address]- 4363 Apr, [facility] [place] [facility] [address] [id number] [place] [address]- 0585 Jan, [facility] [place] [facility] [address] [id number] [place] [address]- 7413 Jun, [facility] [place] [facility] [address] [id number] [place] [address]- 7903 20 Jun, 2010 [facility] [address] [id number] [place] [address]- 2906 15 Jun, 2010 [facility] [address] [id number] [place] [address] 2546 15 Jun, 2010 [facility] [address] [id number] [place] [address]- 8856 15 Jun, 2010 [facility] [place] [facility] [address] [id number] [place] [address] 2546 13 Jun, 2010 [facility] [address] [id number] [place] [address]- 7196 13 Jun, 2010 [facility] [address] [id number] [place] [address]- 2166 21 Apr, 2010 [facility] [address] [id number] [place] [address]- 2916 17 Feb, 2010 [facility] [address] [id number] [place] [address]- 8248 15 Aug, 2009 [facility] [address] [id number] [place] [address]- 4066 18 Jul, 2009 [facility] [address] [facility] [id number] [place] [address]- 1411 11 Jul, 2009 [facility] [address] [id number] [place] [address] 2546 29 Jun, 2009 [facility] [place] [facility] [address] [id number] [place] [address] 2546 28 Jun, 2009 [facility] [place] [facility] [address] [id number] [place] [address] 2546 28 Jun, 2009 [facility] [place] [facility] [address] [id number] [place] [address]- 2546 22 Jun, 2009 [facility] [place] [facility] [address] [id number] [place] [address]- 2546 16 Jun, 2009 [facility] [place] [facility] [address]00565[address] [address]- 0228 Jun, [facility] [address]00565100[place] [address]- 6046 Jun, [facility] [address]00565100[place] [address]- 8880 May, [facility] [id number] [place] [address]- 4950 May, [facility] [address]65[place] [address] May, [facility] [id number] [place] [address]98- 7843 May, [facility] [id number] [place] [address] 409369- 5398 May, [facility] [id number] [place] [address] 27958- 3129 May, [facility] [address] 8988 May, [facility] [id number] [place] [address] 735731- 0722 Apr, [facility] [address]65100[place] [address]- 0177 Apr, [facility] [address]65[address] [address]- 3356 Jan, [facility] [address] [id number] [address] Oct, IMMUNIZATIONS No Known Immunizations SOCIAL HISTORY Never Assessed REASON FOR VISIT Other PLAN OF CARE VITAL SIGNS MEDICATIONS Medication Instructions Dosage Frequency Start Date End Date Duration Status Keflex 500 mg Orally 3 times a day 1 capsule 8h Jun, 07 days Active RESULTS No Results PROCEDURES No [...] History surgeries Hospitalization History MRSA Hospitalization History [facility] for no circulation to lt foot/diabetic coma while in hospital January 2016
--- OUTSIDE RECORDS SUMMARY | 2018-11-09 13:40 | XMS REPORT ---
Author Author PRABHA HILL [facility] Address [address] [place] [address] Care Team Providers Care Continuity Editor Name Role Phone PRABHA HILL Unavailable PROBLEMS Type Condition ICD9-CM Code DWE91-FV Code Onset Dates Condition Status SNOMED Code Problem Polydipsia R63.1 Active 49573607 Problem Hypernatremia E87.0 Active 02992568 Problem Hyperlipemia, mixed E78.2 Active 269974972 Problem Mixed stress and urge urinary incontinence N39.46 Active 423852034 Problem Coronary artery disease involving [place] coronary artery of [place] heart without angina pectoris I25.10 Active 6012704873986 Problem Parkinsons disease G20 Active 30239090 Problem Hallucinations R44.3 Active 1905608 Problem Hypoglycemia E16.2 Active 140188922 Problem Episodic cluster headache, not intractable G44.019 Active 591422522 Problem Unsteady gait R26.81 Active 54258464 Problem Dysuria R30.0 Active 64147189 Problem Type 2 diabetes mellitus with unspecified complications E11.8 Active 10965638 Problem Dementia with Lewy bodies G31.83 Active 240942534 Problem Dementia in other diseases classified elsewhere without behavioral disturbance F02.80 Active 484608548 Problem Essential hypertension I10 Active 70056617 Problem Hypothyroidism (acquired) E03.9 Active 934199647 Problem PVD (peripheral vascular disease) I73.9 Active 931589060 Problem Neuropathy G62.9 Active 589276317 Problem Status post amputation of toe of left foot Z89.422 Active 119596479 Problem Dysthymia F34.1 Active 91712692 ALLERGIES No Information ENCOUNTERS Encounter Location Date Diagnosis [facility] [address] [id number] [address] Oct, [facility] [address] [facility] [id number] [place] [address] Sep, Medicare annual wellness visit, initial Z00.00 ; Parkinsons disease G20 ; Type 2 diabetes mellitus with unspecified complications E11.8 ; Essential hypertension I10 ; Coronary artery disease involving [place] coronary artery of [place] heart without angina pectoris I25.10 ; Hypothyroidism (acquired ) E03.9 ; PVD (peripheral vascular disease) I73.9 ; Dysthymia F34.1 ; Hyperlipemia, mixed E78.2 ; Neuropathy G62.9 ; Encounter for immunization Z23 ; Encounter for other screening for malignant neoplasm of breast Z12.39 and Mixed stress and urge urinary incontinence N39.46 [place] [address] [address]74- 9056 Aug, Parkinsons disease G20 [place] [address] 97393- 3341 Aug, Type 2 diabetes mellitus with unspecified complications E11.8 ; Left shoulder pain M25.512 and Hypotensive episode I95.9 [place] [address] 35942- 7475 09 Aug, 2017 Coronary artery disease involving [place] coronary artery of [place] heart without angina pectoris I25.10 [place] [address] 21770- 7667 07 Aug, 2017 Type 2 diabetes mellitus with unspecified complications E11.8 [place] [address] [place] [id number] [place] [address] 19300- 6448 Jul, Callus of foot L84 [place] [address] 88988- 6534 Jul, [place] [address] 20350- 2934 Jul, Callus of foot L84 ; Episodic cluster headache, not intractable G44.019 ; Type 2 diabetes mellitus with unspecified complications E11.8 and Parkinsons disease G20 [place] [address] [place] [id number] [place] [address] 34832- 4977 Jul, [place] [address] [place] [id number] [place] [address] 53680- 8964 Jul, [facility] [address] [place] [id number] [place] [address] 07122- 3276 Jun, Type 2 diabetes mellitus with unspecified complications E11.8 ; Unsteady gait R26.81 ; Forgetfulness R68.89 and Hallucinations R44.3 [place] [address] [place] [id number] [place] [address] 48908- 1326 Jun, [place] [address] 13446- 0387 Jun, Left shoulder pain M25.512 [place] [address] 89976- 1089 May, Hypernatremia E87.0 and Polydipsia R63.1 [place] [id number] [place] [address] 39535- 4957 May, Hypernatremia E87.0 and Polydipsia R63.1 [place] [address] [place] [id number] [place] [address] 41330- 3739 May, Hypoglycemia E16.2 ; Dysuria R30.0 ; Unsteadiness on feet R26.81 ; Forgetfulness R68.89 ; Type 2 diabetes mellitus with unspecified complications E11.8 and Yeast infection involving the vagina and surrounding area B37.3 [place] [address] [place] [id number] [place] [address] 70783- 1810 May, Acute cystitis without hematuria N30.00 [facility] [address] [place] [id number] [place] [address] 96463 -0812 Apr, Dysuria R30.0 and Acute cystitis without hematuria N30.00 [facility] [address] [place] [id number] [place] [address] 19239- 1317 Apr, Hypernatremia E87.0 and Polydipsia R63.1 [place] [address] [place] [id number] [place] [address] 42009- 7880 Apr, Vertigo R42 and Type 2 diabetes mellitus with unspecified complications E11.8 [place] [address] [place] [id number] [place] [address] 34884- 3469 20 Mar, 2017 [place] [address] 45581- 9616 19 Mar, 2017 Left shoulder pain M25.512 [place] [address] 29426- 0845 13 Mar, 2017 Vertigo R42 [place] [address] 23821- 0734 12 Mar, 2017 Polydipsia R63.1 [place] [address] 86375- 0166 12 Mar, 2017 Polydipsia R63.1 [place] [address] 09158- 7199 11 Mar, 2017 Vertigo R42 [place] [address] 54047- 1856 07 Mar, 2017 Type 2 diabetes mellitus with unspecified complications E11.8 ; Vertigo R42 ; Polydipsia R63.1 ; Polyuria R35.8 ; Hypothyroidism ( acquired) E03.9 ; Abnormal urinalysis R82.90 and Dysthymia F34.1 [place] [address] [place] [id number] [place] [address] 61620- 3651 05 Mar, 2017 Coronary artery disease of guid[place] artery with stable angina pectoris, unspecified whether guid[place]le or transplanted heart I25.118 ; Systolic CHF, chronic I50.22 ; Hyperlipemia, mixed E78.2 and Essential hypertension I10 [facility] [address] [place] [id number] [place] [address] [id number] 16 Feb, 2017 Dental caries K02.9 [place] [address] [place] [id number] [place] [address] 63769- 7332 10 Feb, 2017 Type 2 diabetes mellitus with diabetic neuropathy, unspecified E11.40 [place] [address] [address] 7403 Dec, Left shoulder pain M25.512 [facility] [address] [place] [id number] [place] [address] 02040- 8741 Dec, [facility] [address] [place] [id number] [place] [address] 61469- 6084 Dec, Type 2 diabetes mellitus with unspecified complications E11.8 [facility] [address] [place] [address] [id number] Dec, Dental examination Z01.20 [facility] [address] [place] [id number] [place] [address] 95167- 0853 Dec, Type 2 diabetes mellitus with diabetic neuropathy, unspecified E11.40 [facility] [address] [place] [id number] [place] [address] 73642- 2904 Dec, [facility] [address] [place] [id number] [place] [address] 77598- 3391 Dec, Type 2 diabetes mellitus with diabetic neuropathy, unspecified E11.40 [facility] [address] [place] [id number] [place] [address] 12854- 9852 November, Left shoulder pain M25.512 [facility] [id number] [place] [address] 28877- 7467 November, [facility] [address] [place] [id number] [place] [address] 82749- 0027 November, Type 2 diabetes mellitus with unspecified complications E11.8 and Dysuria R30.0 [facility] [id number] [place] [address] 98393- 1939 Oct, Left shoulder pain M25.512 [facility] [address] [place] [id number] [place] [address] 47296- 9643 Sep, Left shoulder pain M25.512 [facility] [address] [place] [address] 42306- 1230 Sep, Pre-op testing Z01.818 [facility] [address] [place] [id number] [place] [address] 86578- 5025 Sep, Pre-op testing Z01.818 [place] [address] [place] [id number] [place] [address] 05260- 9421 Sep, Pre-op testing Z01.818 [facility] [address] [place] [id number] [place] [address] 58376- 3374 Sep, Pre-op testing Z01.818 and Mouth pain K13.79 [place] [address] [place] [id number] [place] [address] 59752- 1551 Sep, Left shoulder pain M25.512 [place] [address] [place] [id number] [place] [address] 97431- 2194 08 Aug, 2016 Other eczema L30.8 [place] [address] 78336- 3059 06 Aug, 2016 PVD (peripheral vascular disease) I73.9 ; Type 2 diabetes mellitus with unspecified complications E11.8 ; Acute cystitis with hematuria N30.01 ; Other eczema L30.8 ; Dysuria R30.0 and Left shoulder pain M25.512 [facility] [address] [place] [id number] [place] [address] 09980 -8223 Jul, Otalgia of right ear H92.01 and Blood in ear canal, right H92.21 [place] [address] [place] [id number] [place] [address] 37836- 3979 Jul, Arthralgia, unspecified joint M25.50 ; PVD (peripheral vascular disease) I73.9 and Neuropathy G62.9 [place] [address] [place] [id number] [place] [address] 08244- 3445 Jul, [place] [address] [place] [id number] [place] [address] 87901- 8944 Jun, Medicare annual wellness visit, initial Z00.00 ; Cervicalgia M54.2 ; Radiculopathy of cervical region M54.12 ; Encounter for immunization Z23 ; Type 2 diabetes mellitus with unspecified complications E11.8 and Essential hypertension I10 [facility] [address] 59908- 9661 Jun, [facility] [address] 69612- 2947 May, Hypothyroidism (acquired) E03.9 [facility] [address] 35924- 8945 May, Dysuria R30.0 ; Essential hypertension I10 ; Hypothyroidism (acquired) E03.9 and PVD (peripheral vascular disease) I73.9 [facility] [address] [place] [id number] [place] [address] 08149 -7335 May, Burning with urination R30.0 and Acute cystitis with hematuria N30.01 [facility] [address] 88902- 0150 May, Dental examination Z01.20 [facility] [address] 45715- 3124 May, Hypothyroidism (acquired) E03.9 [place] [address] [place] [id number] [place] [address] 74862- 7650 Feb, [facility] [address] [place] [id number] [place] [address] 09853- 4641 Feb, Status post amputation of toe of left foot Z89.422 ; PVD ( peripheral vascular disease) I73.9 ; Type 2 diabetes mellitus with unspecified complications E11.8 and Essential hypertension I10 [facility] [address] 37034- 7903 Jan, [place] [address] 16933- 6337 Jan, Hypothyroidism (acquired) E03.9 [facility] [address] 09229- 0052 Jan, [place] [id number] [place] [address] 97156- 1201 Jan, [place] [address] [place] [id number] [place] [address] 18484- 3015 Jan, Type 2 diabetes mellitus with unspecified complications E11.8 ; Status post amputation of toe of left foot Z89.422 and Essential ( primary) hypertension I10 [place] [address] [place] [id number] [place] [address] 83220- 1755 Jan, Type 2 diabetes mellitus with unspecified complications E11.8 ; Status post amputation of toe of left foot Z89.422 ; Essential hypertension I10 and PVD (peripheral vascular disease) I73.9 [place] [address] [place] [id number] [place] [address] 48277- 8983 Jan, [place] [address] [place] [id number] [place] [address] 10750- 7313 Jan, [place] [address] [place] [id number] [place] [address] 45536- 5671 Jan, [place] [address] [place] [id number] [place] [address] 32256- 0575 Jan, Weakness R53.1 ; Fatigue, unspecified type R53.83 ; PVD ( peripheral vascular disease) I73.9 ; Acute osteomyelitis of other site M86.18 ; Type 2 diabetes mellitus with diabetic neuropathy, unspecified E11.40 and 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 [place] [address] [address]- 2171 Dec, [place] [address] [place] [id number] [place] [address] 32746- 2127 Dec, Type 2 diabetes mellitus with unspecified complications E11.8 [place] [address] [address]- 0486 Dec, [place] [address] [place] [id number] [place] [address] 56396- 5519 Dec, Pressure ulcer, unspecified pressure ulcer stage L89.90 and Type 2 diabetes mellitus with unspecified complications E11.8 [facility] [address] [place] [id number] [place] [address] 59873 -4352 Dec, Toe infection L08.9 [facility] [address] [place] [id number] [place] [address] 95791- 3925 November, Dental caries K02.9 [facility] [address] [place] [id number] [place] [address] 06703- 1324 November, [place] [address] [place] [id number] [place] [address] 40928- 5735 November, Dental examination Z01.20 [place] [address] [place] [id number] [place] [address] 50573- 8764 Sep, Lipoma of torso D17.1 and Thoracic neuritis M54.14 [place] [address] [place] [id number] [place] [address] 68827- 2525 Sep, [facility] [address] [place] [id number] [place] [address] 57622- 5605 Aug, [facility] [address] [place] [id number] [place] [address] 05311 -8909 Jul, Dysuria R30.0 and UTI (urinary tract infection) N39.0 [place] [address] [place] [id number] [place] [address] 36127- 7117 Jun, Left shoulder pain M25.512 [place] [address] [place] [id number] [place] [address] 48337- 8134 May, Shoulder pain, left M25.512 [place] [address] [place] [id number] [place] [address] 54017- 4732 May, [place] [address] [place] [id number] [place] [address] 27575- 3646 May, [facility] [address] [place] [address]- 1364 May, Left shoulder pain M25.512 [place] [address] 96659- 1544 May, [place] [address] 76209- 1214 Apr, Encounter for immunization Z23 [place] [address] 50746- 6801 Apr, Urinary tract infection, site not specified N39.0 ; Hypotension, unspecified I95.9 ; Type 2 diabetes mellitus with unspecified complications E11.8 and Generalized edema R60.1 [place] [address] 51799- 0323 Apr, [place] [address] 20392- 5455 Mar, Diabetes with other specified manifestations, type II or unspecified type, not stated as uncontrolled 250.80 [place] [address] 45986- 2659 Feb, Gout 274.9 and Diabetes 250.00 [place] [address] 81577- 9273 Jan, [place] [address] 77581- 4704 November, CAD (coronary artery disease) 414.00 and CHF (congestive heart failure) 428.0 [place] [address] [place] [id number] [place] [address] 34384- 9814 Oct, [place] [address] 34550- 6468 Oct, [place] [address] [place] [id number] [place] [address] 23914- 3542 Oct, [place] [address] 63892- 9172 Sep, [facility] [place] [facility] [address] [id number] [place] [address]- 7444 Sep, [facility] [place] [facility] [address] [id number] [place] [address]- 6423 Sep, [facility] [place] [facility] [address] [id number] [place] [address]- 9059 Sep, [facility] [place] [facility] [address] [id number] [place] [address]- 5172 Aug, [facility] [place] [facility] [address] [id number] [place] [address]- 8710 Aug, 2014 [facility] [place] [facility] [address] [id number] [place] [address]- 3509 Aug, 2014 [facility] [place] [facility] [address] [id number] [place] [address]- 0306 Aug, [facility] [place] [facility] [address] [id number] [place] [address]- 6207 Aug, 2014 [facility] [place] [facility] [address] [id number] [place] [address]- 2030 Aug, [facility] [place] [facility] [address] [facility] [id number] [place] [address]- 4771 Aug, [facility] [place] [facility] [address] [id number] [place] [address]- 0316 Aug, [facility] [place] [facility] [address] [id number] [place] [address]- 3913 Jul, [facility] [place] [facility] [address] [id number] [place] [address]- 3337 Jul, [facility] [place] [facility] [address] [id number] [place] [address]- 0045 Jul, [facility] [place] [facility] [address] [facility] [facility] [id number] [place] [address]- 3072 Jul, [facility] [place] [facility] [address] [id number] [place] [address]- 1198 Jul, [facility] [address] [id number] [place] [address]- 1772 Jul, [facility] [place] [facility] [address] [id number] [place] [address]- 7534 Jul, [facility] [place] [facility] [address] [id number] [place] [address]- 1090 Jul, [facility] [place] [facility] [address] [id number] [place] [address]- 0542 Jul, [facility] [address] [id number] [place] [address]- 1110 Jul, [facility] [place] [facility] [address] [id number] [place] [address]- 8557 Jun, [facility] [address] [id number] [place] [address]- 7283 Jun, [facility] [address] [id number] [place] [address]- 2069 Jun, [facility] [place] [facility] [address] [id number] [place] [address]- 5914 Jun, [facility] [address] [id number] [place] [address]- 9724 Jun, [facility] [place] [facility] [address] [id number] [place] [address]- 8648 Jun, [facility] [place] [facility] [address] [id number] [place] [address]- 8679 Jun, [facility] [place] [facility] [address] [id number] [place] 1064 Jun, [facility] [place] [facility] [address] [id number] [place] 4501 Jun, [facility] [place] [facility] [address] [id number] [place] [address]- 6939 Jun, [facility] [place] [facility] [address] [id number] [place] [address]- 1958 May, [facility] [place] [facility] [address] [id number] [place] [address]- 1155 May, [facility] [place] [facility] [address] [id number] [place] [address]- 3336 Mar, [facility] [place] [facility] [address] [id number] [place] [address]- 1203 Mar, [facility] [place] [facility] [address] [id number] [place] [address]- 9316 Mar, [facility] [place] [facility] [address] [id number] [place] [address]- 4531 Mar, [facility] [place] [facility] [address] [id number] [place] [address]- 6581 Feb, [facility] [place] [facility] [address] [id number] [place] [address]- 4259 Feb, [facility] [place] [facility] [address] [id number] [place] [address]- 7597 Feb, [facility] [place] [facility] [address] [id number] [place] [address]- 4897 Jan, [facility] [place] [facility] [address] [id number] [place] [address]- 4665 Jan, [facility] [place] [facility] [address] [id number] [place] [address]- 6716 Jan, [facility] [place] [facility] [address] [id number] [place] [address]- 1230 Jan, [facility] [place] [facility] [address] [id number] [place] [address]- 5905 Jan, [facility] [place] [facility] [address] [id number] [place] [address]- 2314 Jan, [facility] [place] [facility] [address] [id number] [place] [address]- 9783 Jan, [facility] [place] [facility] [address] [id number] [place] [address]- 4920 Jan, [facility] [place] [facility] [address] [id number] [place] [address]- 8577 Jan, [facility] [place] [facility] [address] [id number] [place] [address]- 3492 Jan, [facility] [place] [facility] [address] [id number] [place] [address]- 9814 Dec, [facility] [place] [facility] [address] [id number] [place] [address]- 0701 Dec, [facility] [place] [facility] [address] [id number] [place] [address]- 8034 November, [facility] [place] [facility] [address] [id number] [place] [address]- 8940 November, [facility] [place] [facility] [address] [id number] [place] [address]- 4072 November, [facility] [place] [facility] [address] [id number] [place] [address]- 5234 November, [facility] [place] [facility] [address] [id number] [place] [address]- 8847 November, [facility] [place] [facility] [address] [id number] [place] [address]- 9690 November, [facility] [place] [facility] [address] [id number] [place] [address]- 3704 November, [facility] [place] [facility] [address] [id number] [place] [address]- 3772 Oct, [facility] [place] [facility] [address] [id number] [place] [address] Oct, [facility] [place] [facility] [address] [id number] [place] [address] Sep, [facility] [place] [facility] [address] [id number] [place] [address] Sep, [facility] [address] [id number] [place] [address] Sep, [facility] [place] [facility] [address] [id number] [place] [address] Sep, [facility] [place] [facility] [address] [id number] [place] [address] Sep, [facility] [place] [facility] [address] [id number] [place] [address] Sep, [facility] [place] [facility] [address] [id number] [place] [address] Sep, [facility] [place] [facility] [address] [id number] [place] [address] Sep, [facility] [place] [facility] [address] [id number] [place] [address] Sep, [facility] [place] [facility] [address] [id number] [place] [address] Sep, [facility] [place] [facility] [address] [id number] [place] [address] Aug, [facility] [place] [facility] [address] [id number] [place] [address] Aug, [facility] [place] [facility] [address] [id number] [place] [address] Jul, [facility] [place] [facility] [address] [id number] [place] [address] Jul, [facility] [place] [facility] [address] [id number] [place] [address] Jul, [facility] [place] [facility] [address] [id number] [place] [address] Jul, [facility] [place] [facility] [address] [id number] [place] [address] Jul, [facility] [place] [facility] [address] [id number] [place] [address] Jul, [facility] [place] [facility] [address] [id number] [place] [address] Jun, [facility] [place] [facility] [address] [id number] [place] [address] Jun, [facility] [place] [facility] [address] [id number] [place] [address] Jun, [facility] [place] [facility] [address] [id number] [place] [address] Jun, [facility] [place] [facility] [address] [id number] [place] [address] May, [facility] [place] [facility] [address] [id number] [place] [address] May, [facility] [place] [facility] [address] [id number] [place] [address] May, [facility] [place] [facility] [address] [id number] [place] [address] May, [facility] [place] [facility] [address] [id number] [place] [address] May, [facility] [place] [facility] [address] [id number] [place] [address] Apr, [facility] [place] [facility] [address] [id number] [place] [address] 285[address] Apr, [facility] [place] [facility] [address] [id number] [place] [address] Apr, [facility] [place] [facility] [address] [id number] [place] [address] Apr, [facility] [place] [facility] [address] [id number] [place] [address] Apr, [facility] [place] [facility] [address] [id number] [place] [address] 1382 Apr, [facility] [address] [id number] [place] [address]- 9670 Apr, [facility] [place] [facility] [address] [id number] [place] [address]- 1180 Apr, [facility] [place] [facility] [address] [id number] [place] [address]- 2520 Apr, [facility] [place] [facility] [address] [id number] [place] [address]- 9357 Apr, [facility] [place] [facility] [address] [id number] [place] [address]- 6135 Apr, [facility] [place] [facility] [address] [id number] [place] [address]- 8180 Apr, [facility] [address] [id number] [place] [address]- 6105 Mar, [facility] [place] [facility] [address] [id number] [place] [address]- 7123 Mar, [facility] [place] [facility] [address] [id number] [place] [address]- 9231 Feb, [facility] [place] [facility] [address] [id number] [place] [address]- 8026 Jan, [facility] [place] [facility] [address] [id number] [place] [address]- 1294 Jan, [facility] [place] [facility] [address] [id number] [place] [address]- 2542 Jan, [facility] [place] [facility] [address] [id number] [place] [address]- 3987 Jan, [facility] [place] [facility] [address] [id number] [place] [address]- 3411 Dec, [facility] [place] [facility] [address] [id number] [place] [address]- 7395 Dec, [facility] [place] [facility] [address] [id number] [place] [address]- 2009 Dec, [facility] [address] [id number] [place] [address]- 9328 Dec, [facility] [place] [facility] [address] [id number] [place] [address]- 7510 10 Dec, 2012 [facility] [address] [id number] [place] [address]- 1799 07 Dec, 2012 [facility] [address] [id number] [place] [address]- 0282 05 Dec, 2012 [facility] [place] [facility] [address] [id number] [place] [address]- 9503 November, [facility] [address] [id number] [place] [address]- 3568 November, [facility] [address] [id number] [place] [address]- 7470 November, [facility] [address] [id number] [place] [address]- 2689 Oct, [facility] [place] [facility] [address] [id number] [place] [address]- 8660 Oct, [facility] [place] [facility] [address] [id number] [place] [address] 5977 Oct, [facility] [place] [facility] [address] [id number] [place] [address]- 8192 Oct, [facility] [place] [facility] [address] [id number] [place] [address] 1967 Oct, [facility] [place] [facility] [address] [id number] [place] [address]- 4693 Sep, [facility] [place] [facility] [address] [id number] [place] [address]- 9330 Sep, [facility] [place] [facility] [address] [id number] [place] [address]- 3316 Sep, [facility] [address] [id number] [place] [address]- 0176 Sep, [facility] [place] [facility] [address] [id number] [place] [address]- 9666 Aug, [facility] [place] [facility] [address] [id number] [place] [address] 2546 Aug, [facility] [place] [facility] [address] [id number] [place] [address] 2546 Aug, [facility] [address] [id number] [place] [address]- 9649 Aug, [facility] [address] [id number] [place] [address]- 4830 Jul, [facility] [address] [facility] [id number] [place] [address]- 1082 Jul, [facility] [address] [id number] [place] [address]- 9838 Jun, [facility] [address] [facility] [id number] [place] [address]- 8768 Jun, [facility] [place] [facility] [address] [facility] [id number] [place] [address]- 3172 Jun, [facility] [address] [facility] [id number] [place] [address]- 7079 Jun, [facility] [place] [facility] [address] [id number] [place] [address]- 254 May, [facility] [place] [facility] [address] [id number] [place] [address]- 4767 May, [facility] [place] [facility] [address] [facility] [id number] [place] [address]- 7122 May, [facility] [place] [facility] [address] [facility] [id number] [place] [address]- 6050 May, [facility] [place] [facility] [address] [id number] [place] [address]- 8820 Apr, 2011 [facility] [place] [facility] [address] [id number] [place] [address]- 1211 Apr, [facility] [place] [facility] [address] [id number] [place] [address]- 7787 Apr, 2011 [facility] [place] [facility] [address] [id number] [place] [address]- 6940 Apr, 2011 [facility] [place] [facility] [address] [id number] [place] [address]- 4061 Apr, [facility] [place] [facility] [address] [id number] [place] [address]- 3908 Apr, [facility] [place] [facility] [address] [id number] [place] [address]- 3982 Apr, [facility] [place] [facility] [address] [id number] [place] [address]- 9835 Apr, [facility] [place] [facility] [address] [id number] [place] [address]- 1482 Apr, [facility] [place] [facility] [address] [id number] [place] [address]- 8862 Apr, [facility] [place] [facility] [address] [id number] [place] [address]- 7619 Feb, [facility] [place] [facility] [address] [id number] [place] [address]- 0730 Feb, [facility] [place] [facility] [address] [id number] [place] [address]- 0340 Jan, [facility] [place] [facility] [address] [id number] [place] [address]- 0018 Jan, [facility] [place] [facility] [address] [id number] [place] [address]- 2546 Jan, [facility] [place] [facility] [address] [id number] [place] [address]- 4968 Jan, [facility] [place] [facility] [address] [id number] [place] [address]- 1095 Jan, [facility] [place] [facility] [address] [id number] [place] [address]- 7585 Jan, [facility] [place] [facility] [address] [id number] [place] [address]- 5526 Dec, [facility] [place] [facility] [address] [id number] [place] [address]- 3463 November, [facility] [place] [facility] [address] [id number] [place] [address]- 9085 November, [facility] [place] [facility] [address] [id number] [place] [address]- 9611 November, [facility] [place] [facility] [address] [id number] [place] [address]- 0510 Sep, [facility] [place] [facility] [address] [id number] [place] [address]- 3314 Sep, [facility] [place] [facility] [address] [id number] [place] [address]- 0449 Sep, [facility] [place] [facility] [address] [id number] [place] [address]- 6489 Sep, [facility] [place] [facility] [address] [id number] [place] [address]- 7330 Sep, [facility] [place] [facility] [address] [id number] [place] [address]- 6871 Sep, [facility] [place] [facility] [address] [id number] [place] [address]- 0228 Aug, [facility] [place] [facility] [address] [id number] [place] [address]- 2149 Aug, [facility] [place] [facility] [address] [id number] [place] [address]- 2546 Aug, [facility] [place] [facility] [address] [id number] [place] [address]- 4466 11 Jul, 2011 [facility] [address] [id number] [place] [address]- 7790 11 Jul, 2011 [facility] [address] [id number] [place] [address]- 5902 10 Jul, 2011 [facility] [address] [id number] [place] [address]- 6194 Jul, [facility] [address] [id number] [place] [address]- 7710 Jun, [facility] [address] [id number] [place] [address]- 8824 Jun, [facility] [address] [id number] [place] [address]- 8497 Jun, [facility] [address] [id number] [place] [address]- 1327 Jun, [facility] [address] [id number] [place] [address]- 8952 Jun, [facility] [address] [id number] [place] [address]- 0937 Jun, [facility] [address] [id number] [place] [address]- 2300 May, [facility] [address] [id number] [place] [address]- 3592 May, [facility] [address] [id number] [place] [address]- 4740 May, [facility] [address] [id number] [place] [address]- 3831 Apr, [facility] [place] [facility] [address] [id number] [place] [address]- 3449 Jan, [facility] [address] [id number] [place] [address]- 8207 Jun, [facility] [place] [facility] [address] [id number] [place] [address]- 1343 20 Jun, 2010 [facility] [place] [facility] [address] [id number] [place] [address]- 8216 15 Jun, 2010 [facility] [place] [facility] [address] [id number] [place] [address] 2546 15 Jun, 2010 [facility] [place] [facility] [address] [id number] [place] [address] 2546 15 Jun, 2010 [facility] [address] [id number] [place] [address]- 6796 13 Jun, 2010 [facility] [place] [facility] [address] [id number] [place] [address]- 4516 13 Jun, 2010 [facility] [address] [id number] [place] [address]- 0203 Apr, [facility] [address] [id number] [place] [address]- 3001 17 Feb, 2010 [facility] [address] [id number] [place] [address]- 0174 15 Aug, 2009 [facility] [address] [id number] [place] [address]- 9758 Jul, [facility] [place] [facility] [address] [id number] [place] [address]- 1606 Jul, [facility] [place] [facility] [address] [id number] [place] [address]- 2182 29 Jun, 2009 [facility] [place] [facility] [address] [id number] [place] [address] 2546 Jun, [facility] [place] [facility] [address] [id number] [place] [address]- 2546 28 Jun, 2009 [facility] [place] [facility] [address] [id number] [place] [address]- 8974 22 Jun, 2009 [facility] [place] [facility] [address] [id number] [place] [address] Jun, [facility] [id number] [place] [address] Jun, [facility] [id number] [place] [address] 222[address]- 5620 Jun, [facility] [id number] [place] [address] 522823- 7000 May, [facility] [id number] [place] [address] 666409- 3099 May, [facility] [id number] [place] [address] 402354- 5959 May, [facility] [id number] [place] [address] 19734- 0069 May, [facility] [id number] [place] [address] 67796- 6865 May, [facility] [id number] [place] [address] 57381- 0302 May, [facility] [id number] [place] [address] 02993- 5332 May, [facility] [id number] [place] [address]- 7925 Apr, [facility] [id number] [place] [address]- 2989 Apr, [facility] [id number] [place] [address]- 3376 Jan, [facility] [id number] [place] [address] Oct, IMMUNIZATIONS No Known Immunizations SOCIAL HISTORY Never Assessed REASON FOR VISIT Refill request PLAN OF CARE VITAL SIGNS MEDICATIONS Medication Instructions Dosage Frequency Start Date End Date Duration Status BD Pen Needle Mini U/F 31G X 5 MM subcutaneously 4 times a day as directed 6h Dec, 30 days Active RESULTS No Results PROCEDURES [...]
--- OUTSIDE RECORDS SUMMARY | 2018-11-09 13:41 | XMS REPORT ---
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 Name Role Phone PRABHA HILL Unavailable PROBLEMS Type Condition ICD9-CM Code RWP69-WS Code Onset Dates Condition Status SNOMED Code Problem Hyperlipemia, mixed E78.2 Active 519827477 Problem Hypoglycemia E16.2 Active 217456188 Problem Hypernatremia E87.0 Active 61665676 Problem Neurogenic orthostatic hypotension G90.3 Active 070729335 Problem Dementia with Lewy bodies G31.83 Active 066371457 Problem Mixed stress and urge urinary incontinence N39.46 Active 689023291 Problem 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 Active 9443922844200 Problem Unsteady gait R26.81 Active 79536390 Problem Hallucinations R44.3 Active 8064442 Problem Parkinsons disease G20 Active 85755183 Problem Episodic cluster headache, not intractable G44.019 Active 452038578 Problem Type 2 diabetes mellitus with unspecified complications E11.8 Active 09292517 Problem PVD (peripheral vascular disease) I73.9 Active 318888392 Problem Dementia in other diseases classified elsewhere without behavioral disturbance F02.80 Active 556691571 Problem Dysuria R30.0 Active 69390596 Problem Hypothyroidism (acquired) E03.9 Active 178598426 Problem Neuropathy G62.9 Active 918526335 Problem Status post amputation of toe of left foot Z89.422 Active 399407771 Problem Dysthymia F34.1 Active 87534266 Problem Essential hypertension I10 Active 00403199 Problem Polydipsia R63.1 Active 40101506 ALLERGIES No Information ENCOUNTERS Encounter Location Date Diagnosis [facility] [address] [facility] [id number] [address] Dec, [facility] [id number] [place] [address] 68166- 2250 November, Left shoulder pain M25.512 [facility] [place] [id number] [place] [address] 91158- 5774 Oct, [facility] [id number] [place] [address] 47204 -4499 Oct, [facility] [id number] [place] [address] 07053- 3369 Oct, Parkinsons disease G20 [facility] [id number] [place] [address] 68062 -3156 18 Oct, 2017 Acute cystitis without hematuria N30.00 and Viral upper respiratory tract infection J06.9 [facility] [place] [id number] [place] [address] 54946- 7650 Oct, [facility] [id number] [place] [address] 36609- 3592 Oct, Type 2 diabetes mellitus with unspecified complications E11.8 [facility] [id number] [place] [address] 90209- 3458 Oct, Left shoulder pain M25.512 [facility] [id number] [place] [address] 75428- 9525 Oct, Type 2 diabetes mellitus with unspecified complications E11.8 ; Dysuria R30.0 and Neurogenic orthostatic hypotension G90.3 [facility] [id number] [place] [address] 12161- 5835 Sep, Left shoulder pain M25.512 [facility] [id number] [place] [address] 97937- 0871 12 Sep, 2017 Medicare annual wellness visit, initial Z00.00 ; Parkinsons disease G20 ; Type 2 diabetes mellitus with unspecified complications E11.8 ; Essential hypertension I10 ; 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 ; Hypothyroidism (acquired ) E03.9 ; PVD (peripheral vascular disease) I73.9 ; Dysthymia F34.1 ; Hyperlipemia, mixed E78.2 ; Neuropathy G62.9 ; Encounter for immunization Z23 ; Encounter for other screening for malignant neoplasm of breast Z12.39 and Mixed stress and urge urinary incontinence N39.46 [facility] [address] 50818- 3592 25 Aug, 2017 Parkinsons disease G20 [facility] [address] 77371- 5691 Aug, Type 2 diabetes mellitus with unspecified complications E11.8 ; Left shoulder pain M25.512 and Hypotensive episode I95.9 [facility] [address] 80714- 2983 Aug, 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 [facility] [place] [address] 19077- 6307 07 Aug, 2017 Type 2 diabetes mellitus with unspecified complications E11.8 [facility] [address] 79466- 0364 Jul, Callus of foot L84 [facility] [address] 31518- 1241 Jul, [facility] [address] 79810- 8074 Jul, Callus of foot L84 ; Episodic cluster headache, not intractable G44.019 ; Type 2 diabetes mellitus with unspecified complications E11.8 and Parkinsons disease G20 [facility] [place] [id number] [place] [address] 68071- 7584 Jul, [facility] [address] 07918- 3962 Jul, [facility] [address] 22539- 7342 Jun, Type 2 diabetes mellitus with unspecified complications E11.8 ; Unsteady gait R26.81 ; Forgetfulness R68.89 and Hallucinations R44.3 [facility] [id number] [place] [address] 79633- 4956 Jun, [facility] [id number] [place] [address] 24811- 9209 Jun, Left shoulder pain M25.512 [facility] [id number] [place] [address] 10992- 9627 May, Hypernatremia E87.0 and Polydipsia R63.1 [facility] [id number] [place] [address] 53927- 6455 May, Hypernatremia E87.0 and Polydipsia R63.1 [facility] [id number] [place] [address] 58723- 2946 May, Hypoglycemia E16.2 ; Dysuria R30.0 ; Unsteadiness on feet R26.81 ; Forgetfulness R68.89 ; Type 2 diabetes mellitus with unspecified complications E11.8 and Yeast infection involving the vagina and surrounding area B37.3 [place] [id number] [place] [address] 64518- 9783 May, Acute cystitis without hematuria N30.00 [facility] [id number] [place] [address] 63734 -7413 Apr, Dysuria R30.0 and Acute cystitis without hematuria N30.00 [facility] [id number] [place] [address] 65102- 3125 Apr, Hypernatremia E87.0 and Polydipsia R63.1 [facility] [id number] [place] [address] 34392- 1065 Apr, Vertigo R42 and Type 2 diabetes mellitus with unspecified complications E11.8 [facility] [id number] [place] [address] 29487- 6398 Mar, [facility] [id number] [place] [address] 57242- 3790 19 Mar, 2017 Left shoulder pain M25.512 [facility] [id number] [place] [address] 64993- 4930 13 Mar, 2017 Vertigo R42 [facility] [id number] [place] [address] 70157- 0344 12 Mar, 2017 Polydipsia R63.1 [facility] [address] 26397- 1141 12 Mar, 2017 Polydipsia R63.1 [facility] [address] 39588- 8680 11 Mar, 2017 Vertigo R42 [facility] [address] 68393- 6135 07 Mar, 2017 Type 2 diabetes mellitus with unspecified complications E11.8 ; Vertigo R42 ; Polydipsia R63.1 ; Polyuria R35.8 ; Hypothyroidism ( acquired) E03.9 ; Abnormal urinalysis R82.90 and Dysthymia F34.1 [facility] [address] 61698- 4430 05 Mar, 2017 Coronary artery disease of lime artery with stable angina pectoris, unspecified whether lime or transplanted heart I25.118 ; Systolic CHF, chronic I50.22 ; Hyperlipemia, mixed E78.2 and Essential hypertension I10 [facility] [id number] [place] [address] [id number] Feb, Dental caries K02.9 [facility] [id number] [place] [address] 40128- 9715 Feb, Type 2 diabetes mellitus with diabetic neuropathy, unspecified E11.40 [facility] [address] 44562- 6001 23 Dec, 2016 Left shoulder pain M25.512 [facility] [address] 95069- 0700 16 Dec, 2016 [facility] [address] [place] [address]- 1958 15 Dec, 2016 Type 2 diabetes mellitus with unspecified complications E11.8 [facility] [id number] [place] [address] [id number] Dec, 2016 Dental examination Z01.20 [facility] [id number] [place] [address] 09541- 7190 08 Dec, 2016 Type 2 diabetes mellitus with diabetic neuropathy, unspecified E11.40 [facility] [id number] [place] [address] 03175- 5772 Dec, [facility] [id number] [place] [address] 39315- 7664 Dec, Type 2 diabetes mellitus with diabetic neuropathy, unspecified E11.40 [facility] [id number] [place] [address] 21880- 8882 November, Left shoulder pain M25.512 [facility] [id number] [place] [address] 28479- 3613 November, [facility] [id number] [place] [address] 16956- 9140 November, Type 2 diabetes mellitus with unspecified complications E11.8 and Dysuria R30.0 [facility] [id number] [place] [address] 46694- 8970 Oct, Left shoulder pain M25.512 [facility] [id number] [place] [address] 19592- 6199 Sep, Left shoulder pain M25.512 [facility] [address] [address]- 2068 Sep, Pre-op testing Z01.818 [facility] [id number] [place] [address] 06451- 6793 Sep, Pre-op testing Z01.818 [facility] [id number] [place] [address] 19532- 2790 Sep, Pre-op testing Z01.818 [facility] [id number] [place] [address] 26355- 2955 Sep, Pre-op testing Z01.818 and Mouth pain K13.79 [facility] [place] [id number] [place] [address] 32574- 5831 Sep, Left shoulder pain M25.512 [facility] [address] 62723- 4617 Aug, Other eczema L30.8 [facility] [facility] [address] 93596- 1230 Aug, PVD (peripheral vascular disease) I73.9 ; Type 2 diabetes mellitus with unspecified complications E11.8 ; Acute cystitis with hematuria N30.01 ; Other eczema L30.8 ; Dysuria R30.0 and Left shoulder pain M25.512 [facility] [address] 49301 -5850 Jul, Otalgia of right ear H92.01 and Blood in ear canal, right H92.21 [facility] [address] 03600- 5517 Jul, Arthralgia, unspecified joint M25.50 ; PVD (peripheral vascular disease) I73.9 and Neuropathy G62.9 [facility] [id number] [place] [address] 63727- 6263 Jul, [facility] [id number] [place] [address] 66341- 3774 Jun, Medicare annual wellness visit, initial Z00.00 ; Cervicalgia M54.2 ; Radiculopathy of cervical region M54.12 ; Encounter for immunization Z23 ; Type 2 diabetes mellitus with unspecified complications E11.8 and Essential hypertension I10 [facility] [id number] [place] [address] 31120- 7584 Jun, [facility] [address] [place] [address]- 9162 May, Hypothyroidism (acquired) E03.9 [facility] [address] 45884- 2911 May, Dysuria R30.0 ; Essential hypertension I10 ; Hypothyroidism (acquired) E03.9 and PVD (peripheral vascular disease) I73.9 [facility] [id number] [place] [address] 68312 -0406 May, Burning with urination R30.0 and Acute cystitis with hematuria N30.01 [facility] [address] 98377- 9270 May, Dental examination Z01.20 [facility] [address] 16339- 5521 May, Hypothyroidism (acquired) E03.9 [facility] [address] 12113- 5027 Feb, [facility] [address] 10926- 1864 Feb, Status post amputation of toe of left foot Z89.422 ; PVD ( peripheral vascular disease) I73.9 ; Type 2 diabetes mellitus with unspecified complications E11.8 and Essential hypertension I10 [facility] [id number] [place] [address] 15419- 2211 Jan, [facility] [address] 25765- 4011 Jan, Hypothyroidism (acquired) E03.9 [facility] [id number] [place] [address] 30443- 1132 Jan, [facility] [id number] [place] [address] 58714- 0265 Jan, [facility] [id number] [place] [address] 23601- 6265 Jan, Type 2 diabetes mellitus with unspecified complications E11.8 ; Status post amputation of toe of left foot Z89.422 and Essential ( primary) hypertension I10 [facility] [place] [id number] [place] [address] 31291- 9135 Jan, Type 2 diabetes mellitus with unspecified complications E11.8 ; Status post amputation of toe of left foot Z89.422 ; Essential hypertension I10 and PVD (peripheral vascular disease) I73.9 [facility] [id number] [place] [address] 58530- 5918 Jan, [facility] [place] [id number] [place] [address] 28300- 0651 Jan, [facility] [place] [id number] [place] [address] 35309- 9338 Jan, [facility] [place] [id number] [place] [address] 35084- 3708 Jan, Weakness R53.1 ; Fatigue, unspecified type R53.83 ; PVD ( peripheral vascular disease) I73.9 ; Acute osteomyelitis of other site M86.18 ; Type 2 diabetes mellitus with diabetic neuropathy, unspecified E11.40 and FDC 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.4 [facility] [id number] [place] [address] 67435- 9736 Dec, [facility] [place] [id number] [place] [address] 80044- 3010 Dec, Type 2 diabetes mellitus with unspecified complications E11.8 [facility] [id number] [place] [address] 24538- 4930 Dec, [place] [id number] [place] [address] 81516- 4710 Dec, Pressure ulcer, unspecified pressure ulcer stage L89.90 and Type 2 diabetes mellitus with unspecified complications E11.8 [facility] [address] [address] Dec, Toe infection L08.9 [facility] [id number] [address]- 8870 November, Dental caries K02.9 [facility] [id number] [place] [address] 85097- 6300 November, [facility] [id number] [place] [address] 81016- 9497 November, Dental examination Z01.20 [facility] [id number] [place] [address] 18458- 9306 Sep, Lipoma of torso D17.1 and Thoracic neuritis M54.14 [facility] [id number] [place] [address] 54839- 6561 Sep, [facility] [id number] [place] [address] 20154- 8905 Aug, [facility] [id number] [place] [address] 20791 -8461 Jul, Dysuria R30.0 and UTI (urinary tract infection) N39.0 [facility] [id number] [place] [address] 96802- 5517 Jun, Left shoulder pain M25.512 [facility] [id number] [place] [address] 44101- 7744 May, Shoulder pain, left M25.512 [facility] [id number] [place] [address] 47126- 7737 May, [facility] [id number] [place] [address] 82178- 2549 May, [facility] [id number] [place] [address] 76446- 4354 May, Left shoulder pain M25.512 [facility] [id number] [place] [address] 61675- 5019 May, [facility] [id number] [place] [address] 98848- 2809 Apr, Encounter for immunization Z23 [facility] [id number] [place] [address] 05674- 6070 Apr, Urinary tract infection, site not specified N39.0 ; Hypotension, unspecified I95.9 ; Type 2 diabetes mellitus with unspecified complications E11.8 and Generalized edema R60.1 [facility] [id number] [place] [address] 47119- 6259 Apr, [facility] [id number] [place] [address] 18333- 5645 Mar, Diabetes with other specified manifestations, type II or unspecified type, not stated as uncontrolled 250.80 [place] [address] 99378- 8267 Feb, Gout 274.9 and Diabetes 250.00 [facility] [id number] [place] [address] 51441- 1941 Jan, [facility] [id number] [place] [address] 84287- 3882 November, CAD (coronary artery disease) 414.00 and CHF (congestive heart failure) 428.0 [facility] [place] [id number] [place] [address] 99985- 2315 Oct, [facility] [id number] [place] [address] 28140- 0938 Oct, [facility] [id number] [place] [address] 03425- 6666 Oct, [facility] [id number] [place] [address] 20539- 1952 Sep, [facility] [id number] [place] [address] 40689- 5592 Sep, [facility] [id number] [place] [address] 82053- 5080 Sep, [facility] [id number] [place] [address] 39264- 7225 Sep, [facility] [place] [facility] [address] [id number] [place] [address]- 7296 Aug, 2014 [facility] [place] [facility] [address] [id number] [place] 1226 Aug, 2014 [facility] [place] [facility] [address] [facility] [id number] [place] [address]- 6156 Aug, 2014 [facility] [place] [facility] [address] [id number] [place] [address]- 3646 Aug, 2014 [facility] [place] [facility] [address] [id number] [place] [address]- 5358 Aug, 2014 [facility] [place] [facility] [address] [facility] [id number] [place] [address]- 7946 Aug, [facility] [place] [facility] [address] [facility] [id number] [place] [address]- 9115 Aug, [facility] [place] [facility] [address] [facility] [id number] [place] [address]- 7376 Aug, [facility] [place] [facility] [id number] [place] [address]- 6157 Jul, [facility] [place] [facility] [address] [facility] [id number] [place] [address]- 7692 Jul, [facility] [place] [facility] [address] [facility] [id number] [place] [address]- 9682 Jul, [facility] [place] [facility] [address] [facility] [id number] [place] [address]- 6204 Jul, [facility] [place] [facility] [address] [facility] [id number] [place] [address]- 8379 Jul, [facility] [place] [facility] [address] [facility] [id number] [place] [address]- 0856 Jul, [facility] [place] [facility] [address] [facility] [id number] [place] [address]- 1164 Jul, [facility] [place] [facility] [address] [id number] [place] [address]- 2621 Jul, [facility] [place] [facility] [address] [id number] [place] [address]- 7713 Jul, [facility] [place] [facility] [address] [id number] [place] [address]- 8925 Jul, [facility] [place] [facility] [address] [id number] [place] [address]- 9651 Jun, [facility] [place] [facility] [address] [id number] [place] [address]- 4121 Jun, [facility] [place] [facility] [address] [id number] [place] [address]- 7221 Jun, [facility] [place] [facility] [address] [id number] [place] [address]- 8763 Jun, [facility] [place] [facility] [address] [id number] [place] [address]- 8299 Jun, [facility] [place] [facility] [address] [id number] [place] [address]- 5955 Jun, [facility] [place] [facility] [address] [id number] [place] [address]- 6740 Jun, [facility] [place] [facility] [address] [id number] [place] [address]- 3238 Jun, [facility] [place] [facility] [address] [id number] [place] [address]- 9905 Jun, [facility] [place] [facility] [address] [id number] [place] [address]- 6568 Jun, [facility] [place] [facility] [address] [id number] [place] [address]- 0880 May, [facility] [place] [facility] [address] [id number] [place] [address]- 3512 May, [facility] [place] [facility] [address] [id number] [place] [address]- 4839 Mar, [facility] [place] [facility] [address] [id number] [place] [address]- 2518 18 Mar, 2014 [facility] [place] [facility] [address] [id number] [place] [address]- 9052 Mar, [facility] [place] [facility] [address] [id number] [place] [address]- 9912 Mar, [facility] [place] [facility] [address] [id number] [place] [address]- 2487 Feb, [facility] [place] [facility] [address] [id number] [place] [address] Feb, [facility] [place] [facility] [address] [id number] [place] [address] Feb, [facility] [place] [facility] [address] [id number] [place] [address] Jan, [facility] [place] [facility] [address] [id number] [place] [address] Jan, [facility] [place] [facility] [address] [id number] [place] [address] Jan, [facility] [place] [facility] [address] [id number] [place] [address] Jan, [facility] [place] [facility] [address] [id number] [place] [address] Jan, [facility] [place] [facility] [address] [id number] [place] [address] Jan, [facility] [place] [facility] [address] [id number] [place] [address] Jan, [facility] [place] [facility] [address] [id number] [place] [address] Jan, [facility] [place] [facility] [address] [id number] [place] [address] Jan, [facility] [place] [facility] [address] [id number] [place] [address] Jan, [facility] [place] [facility] [address] [id number] [place] [address] Dec, [facility] [place] [facility] [address] [id number] [place] [address] Dec, [facility] [place] [facility] [address] [id number] [place] [address] November, [facility] [place] [facility] [address] [id number] [place] [address] November, [facility] [place] [facility] [address] [id number] [place] [address] November, [facility] [place] [facility] [address] [id number] [place] [address] November, [facility] [place] [facility] [address] [id number] [place] [address] November, [facility] [place] [facility] [address] [id number] [place] [address] November, [facility] [place] [facility] [address] [id number] [place] [address] November, [facility] [place] [facility] [address] [id number] [place] [address] Oct, [facility] [place] [facility] [address] [id number] [place] [address] Oct, [facility] [place] [facility] [address] [address] [id number] [place] [address] Sep, [facility] [place] [facility] [address] [id number] [place] [address] Sep, [facility] [place] [facility] [address] [id number] [place] [address] Sep, [facility] [place] [facility] [address] [id number] [place] [address] Sep, [facility] [place] [facility] [address] [id number] [place] [address] Sep, [facility] [place] [facility] [address] [id number] [place] [address] Sep, [facility] [place] [facility] [address] [id number] [place] [address] 24[address] Sep, [facility] [place] [facility] [address] [id number] [place] [address] Sep, [facility] [place] [facility] [address] [id number] [place] [address]- 65[address] Sep, [facility] [place] [facility] [address] [id number] [place] [address] 3610 Sep, [facility] [place] [facility] [address] [id number] [place] [address] 8817 Aug, [facility] [place] [facility] [address] [id number] [place] [address] Aug, [facility] [place] [facility] [address] [id number] [place] [address]- 2271 Jul, [facility] [place] [facility] [address] [id number] [place] [address]- 6293 Jul, [facility] [place] [facility] [address] [id number] [place] [address]- 8835 Jul, [facility] [place] [facility] [address] [id number] [place] [address]- 5535 Jul, [facility] [place] [facility] [address] [id number] [place] [address]- 4476 Jul, [facility] [place] [facility] [address] [id number] [place] [address]- 6924 Jul, [facility] [place] [facility] [address] [id number] [place] [address]- 4[address] Jun, [facility] [place] [facility] [address] [id number] [place] [address]- [address]231 06 Jun, 2012 [facility] [address] [id number] [place] [address]- [address] Jun, [facility] [place] [facility] [address] [id number] [place] [address]- 9[address] Jun, [facility] [address] [id number] [place] [address]- 3933 14 May, 2013 [facility] [place] [facility] [address] [id number] [place] [address]- 4281 14 May, 2013 [facility] [address] [id number] [place] [address]- 5175 May, [facility] [place] [facility] [address] [id number] [place] [address]- 0861 May, [facility] [address] [id number] [place] [address]- 7353 May, [facility] [address] [id number] [place] [address]- 2383 Apr, [facility] [place] [facility] [address] [id number] [place] [address]- 4[address] 31 Apr, 2013 [facility] [address] [id number] [place] [address]- 6252 Apr, [facility] [place] [facility] [address] [id number] [place] [address]- 2471 28 Apr, 2013 [facility] [place] [facility] [address] [id number] [place] [address]- 2683 28 Apr, 2013 [facility] [place] [facility] [address] [id number] [place] [address]- 7415 28 Apr, 2013 [facility] [place] [facility] [address] [id number] [place] [address]- 9586 23 Apr, 2013 [facility] [place] [facility] [address] [id number] [place] [address]- 54[address] Apr, [facility] [place] [facility] [address] [id number] [place] [address]- 2893 Apr, [facility] [place] [facility] [address] [id number] [place] [address]- 7399 Apr, [facility] [place] [facility] [address] [id number] [place] [address]- 7791 Apr, [facility] [place] [facility] [address] [id number] [place] [address]- 8855 Apr, [facility] [place] [facility] [address] [id number] [place] [address]- 8184 Mar, [facility] [place] [facility] [address] [id number] [place] [address] 1980 Mar, [facility] [place] [facility] [address] [id number] [place] [address]- 8341 Feb, [facility] [place] [facility] [address] [id number] [place] [address]- 1006 Jan, [facility] [place] [facility] [address] [id number] [place] [address]- 0539 Jan, [facility] [place] [facility] [address] [id number] [place] [address]- 5272 Jan, [facility] [place] [facility] [address] [id number] [place] [address]- 1154 Jan, [facility] [place] [facility] [address] [id number] [place] [address]- [address] Dec, [facility] [place] [facility] [address] [id number] [place] [address]- 5295 Dec, [facility] [place] [facility] [address] [id number] [place] [address]- 5011 Dec, [facility] [place] [facility] [address] [id number] [place] [address] Dec, [facility] [place] [facility] [address] [id number] [place] [address] 388[address] Dec, [facility] [address] [id number] [place] [address]- 7157 Dec, [facility] [address] [id number] [place] [address]- 0648 Dec, [facility] [address] [id number] [place] [address]- 8818 November, [facility] [address] [id number] [place] [address]- 7459 November, [facility] [address] [id number] [place] [address]- 4335 November, [facility] [address] [id number] [place] [address]- 4883 Oct, [facility] [address] [id number] [place] [address]- 2898 Oct, [facility] [address] [id number] [place] [address]- 4515 Oct, [facility] [address] [id number] [place] [address]- 0439 Oct, [facility] [address] [id number] [place] [address]- 6840 Oct, [facility] [address] [id number] [place] [address]- 9851 Sep, [facility] [place] [facility] [address] [id number] [place] [address]- 0312 Sep, [facility] [place] [facility] [address] [id number] [place] [address]- 2071 Sep, [facility] [place] [facility] [address] [id number] [place] [address]- 6311 Sep, [facility] [place] [facility] [address] [id number] [place] [address]- 9057 Aug, [facility] [place] [facility] [address] [id number] [place] [address]- 8378 05 Aug, 2012 [facility] [place] [facility] [address] [id number] [place] [address]- 0342 Aug, [facility] [place] [facility] [address] [id number] [place] [address]- 8486 Aug, [facility] [place] [facility] [address] [id number] [place] [address]- 4401 Jul, [facility] [place] [facility] [address] [id number] [place] [address]- 0669 Jul, [facility] [place] [facility] [address] [id number] [place] [address]- 4435 Jun, [facility] [place] [facility] [address] [id number] [place] [address]- 3271 Jun, [facility] [place] [facility] [address] [id number] [place] [address]- 7777 Jun, [facility] [place] [facility] [address] [id number] [place] [address]- 1677 Jun, [facility] [place] [facility] [address] [id number] [place] [address]- 9178 May, [facility] [place] [facility] [address] [id number] [place] [address]- 8791 May, [facility] [place] [facility] [address] [id number] [place] [address]- 7182 May, [facility] [place] [facility] [address] [id number] [place] [address]- 8733 May, [facility] [place] [facility] [address] [id number] [place] [address]- 4299 Apr, [facility] [place] [facility] [address] [id number] [place] [address]- 7989 Apr, [facility] [place] [facility] [address] [id number] [place] [address]- 1478 Apr, [facility] [place] [facility] [address] [id number] [place] [address]- 1223 Apr, [facility] [place] [facility] [address] [id number] [place] [address]- 1604 Apr, [facility] [place] [facility] [address] [id number] [place] [address]- 5461 Apr, [facility] [place] [facility] [address] [id number] [place] [address]- 7182 Apr, [facility] [place] [facility] [address] [id number] [place] [address]- 7341 Apr, [facility] [place] [facility] [address] [id number] [place] [address]- 0628 Apr, [facility] [place] [facility] [address] [id number] [place] [address]- 5107 Apr, [facility] [place] [facility] [address] [id number] [place] [address]- 1978 Feb, [facility] [place] [facility] [address] [id number] [place] [address]- 4814 Feb, [facility] [place] [facility] [address] [id number] [place] [address]- 3085 Jan, [facility] [place] [facility] [address] [id number] [place] [address]- 0964 Jan, [facility] [place] [facility] [address] [id number] [place] [address]- 7650 Jan, [facility] [place] [facility] [address] [id number] [place] [address]- 3069 Jan, [facility] [place] [facility] [address] [id number] [place] [address]- 8130 Jan, [facility] [place] [facility] [address] [id number] [place] [address]- 3836 Jan, [facility] [place] [facility] [address] [id number] [place] [address]- 6621 Dec, [facility] [address] [id number] [place] [address]- 0517 November, [facility] [address] [id number] [place] [address]- 6316 November, [facility] [address] [id number] [place] [address]- 3243 November, [facility] [address] [id number] [place] [address]- 7782 Sep, [facility] [address] [id number] [place] [address]- 3585 Sep, [facility] [address] [id number] [place] [address]- 7016 Sep, [facility] [address] [id number] [place] [address]- 5548 08 Sep, 2011 [facility] [address] [id number] [place] [address]- 9522 07 Sep, 2011 [facility] [address] [id number] [place] [address]- 1180 07 Sep, 2011 [facility] [address] [id number] [place] [address]- 2534 13 Aug, 2011 [facility] [address] [id number] [place] [address]- 4756 Aug, [facility] [address] [id number] [place] [address]- 2286 Aug, [facility] [address] [id number] [place] [address]- 8456 Jul, [facility] [address] [id number] [place] [address]- 9656 Jul, [facility] [address] [id number] [place] [address]- 3549 Jul, [facility] [address] [id number] [place] [address]- 5263 Jul, [facility] [place] [facility] [address] [id number] [place] [address]- 7975 Jun, [facility] [place] [facility] [address] [id number] [place] [address]- 4722 Jun, [facility] [place] [facility] [address] [id number] [place] [address]- 7813 Jun, [facility] [place] [facility] [address] [id number] [place] [address]- 1285 Jun, [facility] [place] [facility] [address] [id number] [place] [address]- 0716 Jun, [facility] [place] [facility] [address] [id number] [place] [address]- 8775 Jun, [facility] [place] [facility] [address] [id number] [place] [address]- 3979 May, [facility] [place] [facility] [address] [id number] [place] [address]- 7455 May, [facility] [place] [facility] [address] [id number] [place] [address]- 6235 May, [facility] [place] [facility] [address] [id number] [place] [address]- 0784 Apr, [facility] [place] [facility] [address] [id number] [place] [address]- 7412 Jan, [facility] [place] [facility] [address] [id number] [place] [address]- 7150 Jun, [facility] [place] [facility] [address] [id number] [place] [address]- 7129 Jun, [facility] [place] [facility] [address] [id number] [place] [address]- 4419 Jun, [facility] [place] [facility] [address] [id number] [place] [address]- 5195 15 Jun, 2010 [facility] [address] [id number] [place] [address]- 8046 15 Jun, 2010 [facility] [address] [id number] [place] [address] 13 Jun, 2010 [facility] [address] [id number] [place] [address]- 4966 13 Jun, 2010 [facility] [address] [id number] [place] [address] 2546 Apr, [facility] [address] [id number] [place] [address]- 4296 17 Feb, 2010 [facility] [address] [id number] [place] [address]- 3956 15 Aug, 2009 [facility] [address] [id number] [place] [address]- 3325 18 Jul, 2009 [facility] [address] [id number] [place] [address]- 8505 11 Jul, 2009 [facility] [address] [id number] [place] [address]- 3068 29 Jun, 2009 [facility] [address] [id number] [place] [address]- 5803 28 Jun, 2009 [facility] [address] [id number] [place] [address]- 6816 28 Jun, 2009 [facility] [address] [id number] [place] [address] 2540 22 Jun, 2009 [facility] [address] [id number] [place] [address] 2546 16 Jun, 2009 [facility] [address] [id number] [place] [address]- 2546 09 Jun, 2009 [facility] [address] [id number] [place] [address]- 4936 Jun, [facility] [id number] [address]- 7783 May, [facility] [id number] [address]- 3253 May, [facility] [id number] [address]- 8042 May, [facility] [id number] [address]- 2125 May, [facility] [id number] [address]- 8337 May, [facility] [id number] [place] [address]- 6835 May, [facility] [id number] [address]- 3896 May, [facility] [id number] [place] [address]- 4956 Apr, [facility] [id number] [address]- 6053 Apr, [facility] [id number] [address]- 3521 Jan, [facility] [id number] [address]- 6301 Oct, IMMUNIZATIONS No Known Immunizations SOCIAL HISTORY Never Assessed REASON FOR VISIT Lab Results and Hospital Update PLAN OF CARE VITAL SIGNS MEDICATIONS [...]
--- OUTSIDE RECORDS SUMMARY | 2018-11-09 13:42 | XMS REPORT ---
Author Author PRABHA HILL [facility] Address [address] [place] [address] Care Team Providers Care Insolvency Practitioner Name Role Phone PRABHA HILL Unavailable PROBLEMS Type Condition ICD9-CM Code [id number] Code Onset Dates Condition Status SNOMED Code Problem Polydipsia R63.1 Active 59810254 Problem Hypernatremia E87.0 Active 50105572 Problem Hyperlipemia, mixed E78.2 Active 259490118 Problem Mixed stress and urge urinary incontinence N39.46 Active 511280825 Problem Coronary artery disease involving lower [place] coronary artery of lower [place] heart without angina pectoris I25.10 Active 5579130650240 Problem Parkinsons disease G20 Active 50054437 Problem Hallucinations R44.3 Active 7077090 Problem Hypoglycemia E16.2 Active 636752586 Problem Episodic cluster headache, not intractable G44.019 Active 272160750 Problem Unsteady gait R26.81 Active 55622834 Problem Dysuria R30.0 Active 51650058 Problem Type 2 diabetes mellitus with unspecified complications E11.8 Active 53097411 Problem Dementia with Lewy bodies G31.83 Active 082317222 Problem Dementia in other diseases classified elsewhere without behavioral disturbance F02.80 Active 421680926 Problem Essential hypertension I10 Active 96719820 Problem Hypothyroidism (acquired) E03.9 Active 890833181 Problem PVD (peripheral vascular disease) I73.9 Active 938675455 Problem Neuropathy G62.9 Active 595879896 Problem Status post amputation of toe of left foot Z89.422 Active 476156441 Problem Dysthymia F34.1 Active 96931256 ALLERGIES No Information ENCOUNTERS Encounter Location Date Diagnosis [facility] [address] [facility] [id number] [address] Oct, [facility] [address] [facility] [id number], [place] [address] Sep, Left shoulder pain M25.512 [place] [address] [address]27- [address]10 Sep, Medicare annual wellness visit, initial Z00.00 ; Parkinsons disease G20 ; Type 2 diabetes mellitus with unspecified complications E11.8 ; Essential hypertension I10 ; Coronary artery disease involving lower [place] coronary artery of lower [place] heart without angina pectoris I25.10 ; Hypothyroidism (acquired ) E03.9 ; PVD (peripheral vascular disease) I73.9 ; Dysthymia F34.1 ; Hyperlipemia, mixed E78.2 ; Neuropathy G62.9 ; Encounter for immunization Z23 ; Encounter for other screening for malignant neoplasm of breast Z12.39 and Mixed stress and urge urinary incontinence N39.46 [place] [address] [address] 25 Aug, 2017 Parkinsons disease G20 [place] [address] 52403- 7722 Aug, Type 2 diabetes mellitus with unspecified complications E11.8 ; Left shoulder pain M25.512 and Hypotensive episode I95.9 [place] [address] 03317- 6982 09 Aug, 2017 Coronary artery disease involving lower [place] coronary artery of lower [place] heart without angina pectoris I25.10 [place] [address] 05723- 9828 07 Aug, 2017 Type 2 diabetes mellitus with unspecified complications E11.8 [place] [address] 27890- 7700 Jul, Callus of foot L84 [place] [address] 51647- 8487 Jul, [place] [address] 49613- 4926 Jul, Callus of foot L84 ; Episodic cluster headache, not intractable G44.019 ; Type 2 diabetes mellitus with unspecified complications E11.8 and Parkinsons disease G20 [place] [id number] [place] [address] 32408- 9865 Jul, [place] [address] [place] [id number] [place] [address] 78703- 2329 Jul, [place] [address] [place] [id number] [place] [address] 78522- 3627 Jun, Type 2 diabetes mellitus with unspecified complications E11.8 ; Unsteady gait R26.81 ; Forgetfulness R68.89 and Hallucinations R44.3 [place] [address] [place] [id number] [place] [address] 19864- 3826 Jun, [place] [address] 50698- 8740 Jun, Left shoulder pain M25.512 [place] [address] [place] [id number] [place] [address] 50747- 7908 May, Hypernatremia E87.0 and Polydipsia R63.1 [place] [address] [place] [id number] [place] [address] 38262- 2739 08 May, 2017 Hypernatremia E87.0 and Polydipsia R63.1 [place] [address] [place] [id number] [place] [address] 70335- 2273 May, Hypoglycemia E16.2 ; Dysuria R30.0 ; Unsteadiness on feet R26.81 ; Forgetfulness R68.89 ; Type 2 diabetes mellitus with unspecified complications E11.8 and Yeast infection involving the vagina and surrounding area B37.3 [place] [id number] [place] [address] 77141- 0496 May, Acute cystitis without hematuria N30.00 [facility] [place] [id number] [place] [address] 53807 -2982 Apr, Dysuria R30.0 and Acute cystitis without hematuria N30.00 [place] [address] [place] [id number] [place] [address] 16722- 8116 Apr, Hypernatremia E87.0 and Polydipsia R63.1 [facility] [address] [place] [id number] [place] [address] 03862- 6677 Apr, Vertigo R42 and Type 2 diabetes mellitus with unspecified complications E11.8 [facility] [address] [place] [id number] [place] [address] 87331- 3632 20 Mar, 2017 [facility] [address] 91805- 0482 19 Mar, 2017 Left shoulder pain M25.512 [place] [address] 26750- 4260 13 Mar, 2017 Vertigo R42 [place] [address] [place] [id number] [place] [address] 16450- 7119 12 Mar, 2017 Polydipsia R63.1 [place] [address] 87263- 5428 12 Mar, 2017 Polydipsia R63.1 [place] [address] [place] [id number] [place] [address] 73036- 8692 11 Mar, 2017 Vertigo R42 [place] [address] [place] [id number] [place] [address] 59615- 4604 07 Mar, 2017 Type 2 diabetes mellitus with unspecified complications E11.8 ; Vertigo R42 ; Polydipsia R63.1 ; Polyuria R35.8 ; Hypothyroidism ( acquired) E03.9 ; Abnormal urinalysis R82.90 and Dysthymia F34.1 [place] [address] [place] [id number] [place] [address] 99717- 0555 05 Mar, 2017 Coronary artery disease of lower [place] artery with stable angina pectoris, unspecified whether lower [place]a or transplanted heart I25.118 ; Systolic CHF, chronic I50.22 ; Hyperlipemia, mixed E78.2 and Essential hypertension I10 [facility] [id number] [place] [address] [id number] Feb, Dental caries K02.9 [facility] [address] [place] [id number] [place] [address] 91093- 7067 Feb, Type 2 diabetes mellitus with diabetic neuropathy, unspecified E11.40 [facility] [address] [place] [id number] [place] [address] 81681- 2973 Dec, Left shoulder pain M25.512 [facility] [address] [place] [id number] [place] [address] 28451- 5070 Dec, [facility] [address] [place] [id number] [place] [address] 95406- 6650 Dec, Type 2 diabetes mellitus with unspecified complications E11.8 [facility] [address] [place] [id number] [place] [address] [id number] Dec, Dental examination Z01.20 [facility] [address] [place] [id number] [place] [address] 15699- 6793 Dec, Type 2 diabetes mellitus with diabetic neuropathy, unspecified E11.40 [facility] [address] [place] [id number] [place] [address] 00052- 3147 Dec, [facility] [address] [place] [id number] [place] [address] 56735- 1043 Dec, Type 2 diabetes mellitus with diabetic neuropathy, unspecified E11.40 [facility] [address] [place] [address] 58625- 7415 November, Left shoulder pain M25.512 [facility] [address] [place] [id number] [place] [address] 02271- 7756 November, [facility] [address] [place] [id number] [place] [address] 16559- 8119 November, Type 2 diabetes mellitus with unspecified complications E11.8 and Dysuria R30.0 [facility] [address] [place] [address] 53641- 4357 Oct, Left shoulder pain M25.512 [facility] [address] [place] [id number] [place] [address] 63864- 3492 Sep, Left shoulder pain M25.512 [place] [address] [address] 96[address] Sep, Pre-op testing Z01.818 [place] [address] [place] [address] 26613- 9839 Sep, Pre-op testing Z01.818 [place] [address] [place] [id number] [place] [address] 85072- 2550 Sep, Pre-op testing Z01.818 [place] [address] [place] [id number] [place] [address] 77311- 9164 Sep, Pre-op testing Z01.818 and Mouth pain K13.79 [place] [address] [place] [id number] [place] [address] 87737- 8767 Sep, Left shoulder pain M25.512 [place] [address] [place] [id number] [place] [address] 81339- 1829 08 Aug, 2016 Other eczema L30.8 [place] [address] [place] [id number] [place] [address] 27129- 5775 06 Aug, 2016 PVD (peripheral vascular disease) I73.9 ; Type 2 diabetes mellitus with unspecified complications E11.8 ; Acute cystitis with hematuria N30.01 ; Other eczema L30.8 ; Dysuria R30.0 and Left shoulder pain M25.512 [facility] [address] [place] [address] 13490 -8889 Jul, Otalgia of right ear H92.01 and Blood in ear canal, right H92.21 [place] [address] [place] [id number] [place] [address] 82435- 1000 Jul, Arthralgia, unspecified joint M25.50 ; PVD (peripheral vascular disease) I73.9 and Neuropathy G62.9 [place] [address] [id number] [address]- 3520 Jul, [place] [address] [place] [id number] [place] [address] 00958- 7531 Jun, Medicare annual wellness visit, initial Z00.00 ; Cervicalgia M54.2 ; Radiculopathy of cervical region M54.12 ; Encounter for immunization Z23 ; Type 2 diabetes mellitus with unspecified complications E11.8 and Essential hypertension I10 [facility] [address] [place] [id number] [place] [address] 32108- 6165 Jun, [place] [address] [place] [id number] [place] [address] 35483- 9350 May, Hypothyroidism (acquired) E03.9 [place] [address] [place] [id number] [place] [address] 89221- 5448 May, Dysuria R30.0 ; Essential hypertension I10 ; Hypothyroidism (acquired) E03.9 and PVD (peripheral vascular disease) I73.9 [facility] [address] [place] [id number] [place] [address] 90888 -7252 May, Burning with urination R30.0 and Acute cystitis with hematuria N30.01 [place] [address] [place] [id number] [place] [address] 12478- 5219 May, Dental examination Z01.20 [place] [address] [place] [id number] [place] [address] 58256- 7999 May, Hypothyroidism (acquired) E03.9 [place] [address] [place] [id number] [place] [address] 10583- 4420 Feb, [place] [address] [place] [id number] [place] [address] 01756- 4629 Feb, Status post amputation of toe of left foot Z89.422 ; PVD ( peripheral vascular disease) I73.9 ; Type 2 diabetes mellitus with unspecified complications E11.8 and Essential hypertension I10 [facility] [address] [place] [id number] [place] [address] 43659- 5938 Jan, [place] [address] [place] [id number] [place] [address] 10072- 3729 Jan, Hypothyroidism (acquired) E03.9 [place] [address] [place] [id number] [place] [address] 47208- 2382 Jan, [place] [address] [place] [id number] [place] [address] 49888- 4187 Jan, [place] [address] [place] [id number] [place] [address] 48496- 9764 Jan, Type 2 diabetes mellitus with unspecified complications E11.8 ; Status post amputation of toe of left foot Z89.422 and Essential ( primary) hypertension I10 [place] [address] [place] [id number] [place] [address] 69302- 4496 Jan, Type 2 diabetes mellitus with unspecified complications E11.8 ; Status post amputation of toe of left foot Z89.422 ; Essential hypertension I10 and PVD (peripheral vascular disease) I73.9 [place] [address] [place] [id number] [place] [address] 67442- 7942 Jan, [place] [address] [place] [id number] [place] [address] 88700- 6513 Jan, [place] [address] [place] [id number] [place] [address] 10676- 7971 Jan, [place] [address] [place] [id number] [place] [address] 02514- 4008 Jan, Weakness R53.1 ; Fatigue, unspecified type R53.83 ; PVD ( peripheral vascular disease) I73.9 ; Acute osteomyelitis of other site M86.18 ; Type 2 diabetes mellitus with diabetic neuropathy, unspecified E11.40 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 [place] [address] [place] [id number] [place] [address] 74721- 4554 Dec, [place] [address] [place] [id number] [place] [address] 29219- 9095 Dec, Type 2 diabetes mellitus with unspecified complications E11.8 [place] [address] [place] [id number] [place] [address] 32612- 1579 Dec, [facility] [address] [place] [address] 45232- 5795 Dec, Pressure ulcer, unspecified pressure ulcer stage L89.90 and Type 2 diabetes mellitus with unspecified complications E11.8 [facility] [address] [place] [id number] [place] [address] 63012 -5449 Dec, Toe infection L08.9 [place] [address] [place] [id number] [place] [address] 03957- 3609 November, Dental caries K02.9 [place] [address] [place] [id number] [place] [address] 97797- 8381 November, [place] [address] [place] [id number] [place] [address] 22802- 6107 November, Dental examination Z01.20 [place] [address] [place] [id number] [place] [address] 49600- 4071 Sep, Lipoma of torso D17.1 and Thoracic neuritis M54.14 [place] [address] [place] [id number] [place] [address] 06995- 0553 Sep, [place] [address] [place] [id number] [place] [address] 74485- 4519 Aug, [facility] [address] [place] [address] 80916 -4781 Jul, Dysuria R30.0 and UTI (urinary tract infection) N39.0 [place] [address] [place] [address] 36835- 5558 Jun, Left shoulder pain M25.512 [place] [address] [place] [id number] [place] [address] 45679- 0339 May, Shoulder pain, left M25.512 [place] [address] [place] [address] 99405- 4095 May, [place] [address] [place] [id number] [place] [address] 91883- 1100 May, [place] [address] 84932- 1562 May, Left shoulder pain M25.512 [place] [address] 11638- 5896 May, [place] [address] 23044- 0900 Apr, Encounter for immunization Z23 [address] 02058- 5414 Apr, Urinary tract infection, site not specified N39.0 ; Hypotension, unspecified I95.9 ; Type 2 diabetes mellitus with unspecified complications E11.8 and Generalized edema R60.[address] 25035- 7887 Apr, [place] [address] 72764- 4200 Mar, Diabetes with other specified manifestations, type II or unspecified type, not stated as uncontrolled 250.[address] 68788- 7540 Feb, Gout 274.9 and Diabetes 250.[address] 54238- 8533 Jan, [place] [address] 14793- 7291 November, CAD (coronary artery disease) 414.00 and CHF (congestive heart failure) 428.[address] 04210- 3359 Oct, [place] [address] 55182- 2024 Oct, [place] [address] 67260- 0019 Oct, [facility] [place] [facility] [address] [id number] [place] [address]- 3922 Sep, [facility] [place] [facility] [address] [id number] [place] [address]- 8540 Sep, [facility] [place] [facility] [address] [facility] [id number] [place] [address]- 0162 Sep, [facility] [place] [facility] [address] [id number] [place] [address]- 7840 Sep, [facility] [place] [facility] [address] [id number] [place] [address]- 3716 Aug, [facility] [place] [facility] [address] [id number] [place] [address]- 9925 Aug, [facility] [place] [facility] [address] [facility] [id number] [place] [address]- 1251 Aug, 2014 [facility] [place] [facility] [address] [id number] [place] [address]- 0709 Aug, [facility] [place] [facility] [address] [facility] [id number] [place] [address]- 2580 Aug, [facility] [place] [facility] [address] [facility] [id number] [place] [address]- 2251 Aug, [facility] [place] [facility] [address] [facility] [id number] [place] [address]- 0325 Aug, [facility] [place] [facility] [address] [facility] [id number] [place] [address]- 1511 Aug, [facility] [place] [facility] [address] [facility] [id number] [place] [address]- 0877 Jul, [facility] [place] [facility] [address] [facility] [id number] [place] [address]- 7056 Jul, [facility] [place] [facility] [address] [facility] [id number] [place] [address]- 9026 Jul, [facility] [place] [facility] [address] [id number] [place] [address]- 6669 Jul, [facility] [place] [facility] [address] [id number] [place] [address]- 9312 Jul, [facility] [place] [facility] [address] [id number] [place] [address]- 3626 Jul, [facility] [place] [facility] [address] [id number] [place] [address]- 3476 Jul, [facility] [place] [facility] [address] [id number] [place] [address]- 3882 Jul, [facility] [place] [facility] [address] [id number] [place] [address]- 6274 Jul, [facility] [place] [facility] [address] [id number] [place] [address]- 9817 Jul, [facility] [place] [facility] [address] [id number] [place] [address]- 4577 Jun, [facility] [place] [facility] [address] [id number] [place] 0913 Jun, [facility] [place] [facility] [address] [id number] [place] [address]- 2327 Jun, [facility] [place] [facility] [address] [id number] [place] 2667 Jun, [facility] [place] [facility] [address] [id number] [place] [address]- 4909 Jun, [facility] [place] [facility] [address] [id number] [place] [address]- 3751 Jun, [facility] [place] [facility] [address] [id number] [place] [address]- 4710 Jun, [facility] [place] [facility] [address] [id number] [place] [address]- 1466 Jun, [facility] [place] [facility] [address] [id number] [place] [address]- 0768 Jun, [facility] [place] [facility] [address] [id number] [place] 2491 Jun, [facility] [place] [facility] [address] [id number] [place] [address]- 6352 May, [facility] [place] [facility] [address] [id number] [place] [address]- 4373 May, [facility] [place] [facility] [address] [id number] [place] [address]- 9304 Mar, [facility] [place] [facility] [address] [id number] [place] [address]- 1348 Mar, [facility] [place] [facility] [address] [id number] [place] [address]- 1476 Mar, [facility] [place] [facility] [address] [id number] [place] [address]- 3886 Mar, [facility] [place] [facility] [address] [id number] [place] [address]- 1750 Feb, [facility] [place] [facility] [address] [id number] [place] [address]- 2848 Feb, [facility] [place] [facility] [address] [id number] [place] [address]- 8705 Feb, [facility] [place] [facility] [address] [id number] [place] [address]- 5296 Jan, [facility] [place] [facility] [address] [id number] [place] [address]- 8438 Jan, [facility] [place] [facility] [address] [id number] [place] [address]- 5002 Jan, [facility] [place] [facility] [address] [id number] [place] [address]- 2237 Jan, [facility] [place] [facility] [address] [id number] [place] [address]- 9199 Jan, [facility] [place] [facility] [address] [id number] [place] [address]- 9893 Jan, [facility] [place] [facility] [address] [id number] [place] [address]- 5424 Jan, [facility] [place] [facility] [address] [id number] [place] [address]- 7515 Jan, [facility] [place] [facility] [address] [id number] [place] [address]- 5444 Jan, [facility] [place] [facility] [address] [id number] [place] [address]- 1847 Jan, [facility] [place] [facility] [address] [id number] [place] 6418 Dec, [facility] [place] [facility] [address] [id number] [place] [address]- 9867 Dec, [facility] [place] [facility] [address] [id number] [place] [address]- 5309 November, [facility] [place] [facility] [address] [id number] [place] [address]- 6806 November, [facility] [place] [facility] [address] [id number] [place] [address]- 0481 November, [facility] [place] [facility] [address] [id number] [place] [address]- 8025 November, [facility] [place] [facility] [address] [id number] [place] [address] November, [facility] [place] [facility] [address] [id number] [place] [address] November, [facility] [place] [facility] [address] [id number] [place] [address] November, [facility] [place] [facility] [address] [id number] [place] [address] Oct, [facility] [place] [facility] [address] [id number] [place] [address] Oct, [facility] [place] [facility] [address] [id number] [place] [address] Sep, [facility] [place] [facility] [address] [id number] [place] [address] Sep, [facility] [place] [facility] [address] [id number] [place] [address] Sep, [facility] [place] [facility] [address] [id number] [place] [address] Sep, [facility] [place] [facility] [address] [id number] [place] [address] Sep, [facility] [place] [facility] [address] [id number] [place] [address] Sep, [facility] [place] [facility] [address] [id number] [place] [address] Sep, [facility] [place] [facility] [address] [id number] [place] [address] Sep, [facility] [place] [facility] [address] [id number] [place] [address] Sep, [facility] [place] [facility] [address] [id number] [place] [address] Sep, [facility] [place] [facility] [address] [id number] [place] [address] Aug, [facility] [place] [facility] [address] [id number] [place] [address] Aug, [facility] [place] [facility] [address] [id number] [place] [address] Jul, [facility] [place] [facility] [address] [id number] [place] [address] Jul, [facility] [place] [facility] [address] [id number] [place] [address] Jul, [facility] [place] [facility] [address] [id number], [place] [address] Jul, [facility] [place] [facility] [address] [id number] [place] [address] Jul, [facility] [place] [facility] [address] [id number][place] [address] [address] Jul, [facility] [place] [facility] [address] [id number] [place] [address] Jun, [facility] [place] [facility] [address] [id number] [place] [address] Jun, [facility] [place] [facility] [address] [id number] [place] [address] Jun, [facility] [place] [facility] [address] [id number] [place] [address] Jun, [facility] [place] [facility] [address] [id number], [place] [address] May, [facility] [place] [facility] [address] [id number] [place] [address] May, [facility] [place] [facility] [address] [id number], [place] [address] May, [facility] [place] [facility] [address] [id number] [place] [address] May, [facility] [place] [facility] [address] [id number], [place] [address] May, [facility] [place] [facility] [address] [id number], [place] [address] Apr, [facility] [place] [facility] [address] [id number] [place] [address] Apr, [facility] [place] [facility] [address] [id number], [place] [address] Apr, [facility] [place] [facility] [address] [id number] [place] [address] Apr, [facility] [place] [facility] [address] [id number] [place] [address] Apr, [facility] [place] [facility] [address] [id number] [place] [address]388 Apr, [facility] [place] [facility] [address] [id number] [place] [address] 8166 Apr, [facility] [place] [facility] [address] [id number] [place] [address] 0749 Apr, [facility] [place] [facility] [address] [id number] [place] [address] 4[address] Apr, [facility] [place] [facility] [address] [id number] [place] [address] 5883 Apr, [facility] [place] [facility] [address] [id number] [place] [address] 20[address] Apr, [facility] [place] [facility] [address] [id number] [place] [address]- 8787 Apr, [facility] [place] [facility] [address] [id number] [place] [address] 75[address] Mar, [facility] [place] [facility] [address] [id number] [place] [address] Mar, [facility] [place] [facility] [address] [id number] [place] [address] Feb, [facility] [place] [facility] [address] [id number] [place] [address] 4[address] Jan, [facility] [place] [facility] [address] [id number] [place] [address]- 0978 Jan, [facility] [place] [facility] [address] [id number] [place] [address]- 2546 Jan, [facility] [place] [facility] [address] [id number] [place] [address]- 2546 Jan, [facility] [place] [facility] [address] [id number] [place] [address]- [address] Dec, [facility] [address] [id number] [place] [address] Dec, [facility] [place] [facility] [address] [id number] [place] [address]- 3287 Dec, [facility] [place] [facility] [address] [id number] [place] [address]- 6299 Dec, [facility] [place] [facility] [address] [id number] [place] [address]- 6174 Dec, [facility] [place] [facility] [address] [id number] [place] [address]- 7923 Dec, [facility] [place] [facility] [address] [id number] [place] [address]- 5911 Dec, [facility] [place] [facility] [address] [id number] [place] [address]- 3[address] November, [facility] [place] [facility] [address] [id number] [place] [address]- 7132 November, [facility] [place] [facility] [address] [id number] [place] [address]- 7284 November, [facility] [place] [facility] [address] [id number] [place] [address]- 9485 Oct, [facility] [place] [facility] [address] [id number] [place] [address]- 8610 Oct, [facility] [place] [facility] [address] [id number], [place] [address] Oct, [facility] [place] [facility] [address] [id number] [place] [address]- 8120 Oct, [facility] [place] [facility] [address] [id number] [place] [address]- 2214 Oct, [facility] [place] [facility] [address] [id number] [place] [address]- [address]307 Sep, [facility] [place] [facility] [address] [id number] [place] [address] 20 Sep, 2012 [facility] [address] [id number] [place] [address]- 9726 Sep, [facility] [place] [facility] [address] [id number] [place] [address] 0439 Sep, [facility] [address] [id number] [place] [address]- 1566 Aug, [facility] [place] [facility] [address] [id number] [place] [address] 2546 Aug, [facility] [place] [facility] [address] [id number] [place] [address]- 2898 Aug, [facility] [place] [facility] [address] [id number] [place] [address]- 6646 Aug, [facility] [address] [id number] [place] [address]- 9366 Jul, [facility] [address] [id number] [place] [address]- 1421 Jul, [facility] [place] [facility] [address] [id number] [place] [address]- 6887 Jun, [facility] [address] [id number] [place] [address]- 5087 Jun, [facility] [place] [facility] [address] [id number] [place] [address] 2546 Jun, [facility] [place] [facility] [address] [id number] [place] [address] 2547 Jun, [facility] [place] [facility] [address] [id number] [place] [address]- 7391 May, [facility] [place] [facility] [address] [id number] [place] [address] 2545 May, [facility] [place] [facility] [address] [id number] [place] [address]- 3294 May, [facility] [place] [facility] [address] [id number] [place] [address]- 5899 May, [facility] [place] [facility] [address] [id number] [place] [address] Apr, [facility] [place] [facility] [address] [id number] [place] [address]- 6957 Apr, [facility] [place] [facility] [address] [id number] [place] [address]- 9140 Apr, [facility] [place] [facility] [address] [id number] [place] [address] Apr, [facility] [place] [facility] [address] [id number] [place] [address]- 1859 Apr, [facility] [place] [facility] [address] [id number] [place] [address]- 6559 Apr, [facility] [place] [facility] [address] [id number] [place] [address]- 7080 Apr, [facility] [place] [facility] [address] [id number] [place] [address]- 6850 Apr, [facility] [place] [facility] [address] [id number] [place] [address] Apr, [facility] [place] [facility] [address] [id number] [place] [address]- 9553 Apr, [facility] [place] [facility] [address] [id number], [place] [address] Feb, [facility] [place] [facility] [address] [id number] [place] [address]- 5346 Feb, [facility] [place] [facility] [address] [id number] [place] [address]- 0994 Jan, [facility] [place] [facility] [address] [id number] [place] [address]- 0772 Jan, [facility] [place] [facility] [address] [id number], [place] [address] 8[address] Jan, [facility] [address] [id number] [place] [address]- 9468 Jan, [facility] [place] [facility] [address] [id number] [place] [address]- 2436 Jan, [facility] [place] [facility] [address] [id number] [place] [address]- 7136 Jan, [facility] [place] [facility] [address] [id number] [place] [address]- 3504 Dec, [facility] [place] [facility] [address] [id number] [place] [address]- 1426 November, [facility] [place] [facility] [address] [id number] [place] [address]- 3943 November, [facility] [address] [id number] [place] [address]- 4213 November, [facility] [place] [facility] [address] [id number] [place] [address]- 1244 Sep, [facility] [place] [facility] [address] [id number] [place] [address]- 4471 Sep, [facility] [place] [facility] [address] [facility] [id number] [place] [address]- 8256 Sep, [facility] [place] [facility] [address] [id number] [place] [address]- 0615 Sep, [facility] [place] [facility] [address] [id number] [place] [address]- 2793 Sep, [facility] [place] [facility] [address] [id number] [place] [address]- 4200 Sep, [facility] [place] [facility] [address] [id number] [place] [address]- 4057 Aug, [facility] [place] [facility] [address] [id number] [place] [address]- 5754 Aug, [facility] [place] [facility] [address] [id number] [place] [address]- 9393 Aug, [facility] [place] [facility] [address] [id number] [place] [address]- 4275 Jul, [facility] [place] [facility] [address] [id number] [place] [address]- 6667 Jul, [facility] [place] [facility] [address] [id number] [place] [address]- 8751 Jul, [facility] [place] [facility] [address] [id number] [place] [address]- 6574 Jul, [facility] [place] [facility] [address] [id number] [place] [address]- 5725 Jun, [facility] [place] [facility] [address] [id number] [place] [address]- 9643 Jun, [facility] [place] [facility] [address] [id number] [place] [address]- 9291 Jun, [facility] [place] [facility] [address] [id number] [place] [address]- 4368 Jun, [facility] [place] [facility] [address] [id number] [place] [address]- 3586 Jun, [facility] [place] [facility] [address] [id number] [place] [address]- 4793 Jun, [facility] [place] [facility] [address] [id number] [place] [address]- 3119 May, [facility] [place] [facility] [address] [id number] [place] [address]- 2389 May, [facility] [place] [facility] [address] [id number] [place] [address]- 1685 May, [facility] [place] [facility] [address] [id number] [place] [address]- 3285 Apr, [facility] [place] [facility] [address] [id number] [place] [address]- 7464 11 Jan, 2011 [facility] [address] [id number] [place] [address]- 9206 20 Jun, 2010 [facility] [place] [facility] [address] [id number] [place] [address]- 9566 20 Jun, 2010 [facility] [address] [facility] [id number] [place] [address] 2546 15 Jun, 2010 [facility] [place] [facility] [address] [id number] [place] [address] 2546 15 Jun, 2010 [facility] [address] [id number] [place] [address]- 0056 15 Jun, 2010 [facility] [address] [id number] [place] [address]- 2806 13 Jun, 2010 [facility] [address] [id number] [place] [address]- 1646 13 Jun, 2010 [facility] [place] [facility] [address] [id number], [place] [address]- 0176 Apr, [facility] [address] [id number] [place] [address]- 4440 17 Feb, 2010 [facility] [place] [facility] [address] [id number] [place] [address]- 6934 15 Aug, 2009 [facility] [place] [facility] [address] [id number], [place] [address]- 5779 18 Jul, 2009 [facility] [place] [facility] [address] [id number], [place] [address] 2544 11 Jul, 2009 [facility] [place] [facility] [address] [id number] [place] [address] 2546 29 Jun, 2009 [facility] [place] [facility] [address] [id number] [place] [address] 2546 Jun, [facility] [place] [facility] [address] [id number] [place] [address]- 2546 Jun, [facility] [place] [facility] [id number], [place] [address] 18[address] Jun, [facility] [id number], [place] [address]- 0229 Jun, [facility] [id number] [address]28 Jun, [facility] [id number] 1057 Jun, [facility] [id number], [place] [address]- 0669 May, [facility] [id number] [place] [address]- 0801 May, [facility] [id number], [place] [address]- 7076 May, [facility] [id number] [place] [address]- 9456 May, [facility] [id number], [place] [address]- 4147 May, [facility] [id number] [place] [address]- 5000 May, [facility] [id number], [place] [address]- 7292 May, [facility] [id number], [place] [address]- 5333 Apr, [facility] [id number], [place] [address]- 2962 Apr, [facility] [id number] [address] Jan, [facility] [id number] 9253 Oct, IMMUNIZATIONS No Known Immunizations SOCIAL HISTORY Never Assessed REASON FOR VISIT Controlled Med Refill PLAN OF CARE VITAL SIGNS MEDICATIONS Medication Instructions Dosage Frequency Start Date End Date Duration Status Tramadol HCl 50 mg Orally 2 times a day 1 tablet 12h 06 Aug, 2016 28 days Active RESULTS No Results PROCEDURES [...]
--- OUTSIDE RECORDS SUMMARY | 2018-11-09 13:43 | XMS REPORT ---
Author Author ALEXISKAHLIL SALAS [facility] Address Unknown Care Team Providers Care Operations Staff Specialist Security Name Role Phone KAHLIL CROW Unavailable PROBLEMS Type Condition ICD9-CM Code XDF54-LX Code Onset Dates Condition Status SNOMED Code Problem Polydipsia R63.1 Active 99016128 Problem Hypernatremia E87.0 Active 71759547 Problem Hyperlipemia, mixed E78.2 Active 294691231 Problem Mixed stress and urge urinary incontinence N39.46 Active 756145950 Problem Coronary artery disease involving [place] coronary artery of [place] heart without angina pectoris I25.10 Active 2106682185832 Problem Parkinsons disease G20 Active 01211945 Problem Hallucinations R44.3 Active 6540592 Problem Hypoglycemia E16.2 Active 201990542 Problem Episodic cluster headache, not intractable G44.019 Active 375641230 Problem Unsteady gait R26.81 Active 67253359 Problem Dysuria R30.0 Active 50789138 Problem Type 2 diabetes mellitus with unspecified complications E11.8 Active 90624051 Problem Dementia with Lewy bodies G31.83 Active 559405960 Problem Dementia in other diseases classified elsewhere without behavioral disturbance F02.80 Active 347952636 Problem Essential hypertension I10 Active 60798630 Problem Hypothyroidism (acquired) E03.9 Active 982246368 Problem PVD (peripheral vascular disease) I73.9 Active 027255782 Problem Neuropathy G62.9 Active 416102761 Problem Status post amputation of toe of left foot Z89.422 Active 299007853 Problem Dysthymia F34.1 Active 93207979 ALLERGIES Substance Reaction Event Type Date Status Sulfacetamide Sod-Sulfur Unknown Drug Allergy Dec, Active Protamine Sulfate Unknown Drug Allergy Dec, Active Penicillin V Potassium Unknown Drug Allergy Dec, Active Bactrim Unknown Drug Allergy Dec, Active ENCOUNTERS Encounter Location Date Diagnosis [facility] [place] [address] [facility] [id number] [place] [address] Oct, [place] [address] [id number] [place] [address] 41583- 6502 Sep, Left shoulder pain M25.512 [place] [address] 54157- 7125 Sep, Medicare annual wellness visit, initial Z00.00 ; Parkinsons disease G20 ; Type 2 diabetes mellitus with unspecified complications E11.8 ; Essential hypertension I10 ; Coronary artery disease involving [place] coronary artery of [place] heart without angina pectoris I25.10 ; Hypothyroidism (acquired ) E03.9 ; PVD (peripheral vascular disease) I73.9 ; Dysthymia F34.1 ; Hyperlipemia, mixed E78.2 ; Neuropathy G62.9 ; Encounter for immunization Z23 ; Encounter for other screening for malignant neoplasm of breast Z12.39 and Mixed stress and urge urinary incontinence N39.[address] 36[address]- 7[address] 25 Aug, 2017 Parkinsons disease G20 [place] [address] 65929- 7594 Aug, Type 2 diabetes mellitus with unspecified complications E11.8 ; Left shoulder pain M25.512 and Hypotensive episode I95.9 [place] [address] [id number] [place] [address] 68302- 4904 09 Aug, 2017 Coronary artery disease involving [place] coronary artery of [place] heart without angina pectoris I25.10 [place] [address] [id number] [place] [address] 33866- 7438 Aug, Type 2 diabetes mellitus with unspecified complications E11.8 [place] [id number] [place] [address] 04064- 0758 Jul, Callus of foot L84 [place] [address] 17825- 9627 Jul, [address] 87880- 7819 Jul, Callus of foot L84 ; Episodic cluster headache, not intractable G44.019 ; Type 2 diabetes mellitus with unspecified complications E11.8 and Parkinsons disease G20 [place] [address] 14229- 6559 Jul, [place] [address] 04314- 4752 Jul, [place] [address] 50350- 0960 Jun, Type 2 diabetes mellitus with unspecified complications E11.8 ; Unsteady gait R26.81 ; Forgetfulness R68.89 and Hallucinations R44.3 [place] [address] 82916- 0558 Jun, [address] 09361- 8376 Jun, Left shoulder pain M25.512 [place] [address] 98987- 4019 13 May, 2017 Hypernatremia E87.0 and Polydipsia R63.[address] 57726- 1557 08 May, 2017 Hypernatremia E87.0 and Polydipsia R63.[address] 72405- 9371 May, Hypoglycemia E16.2 ; Dysuria R30.0 ; Unsteadiness on feet R26.81 ; Forgetfulness R68.89 ; Type 2 diabetes mellitus with unspecified complications E11.8 and Yeast infection involving the vagina and surrounding area B37.3 [place] [address] 18144- 7678 May, Acute cystitis without hematuria N30.00 [facility] [address] 38549 -5931 Apr, Dysuria R30.0 and Acute cystitis without hematuria N30.00 [facility] [place] [address] 01656- 3083 05 Apr, 2017 Hypernatremia E87.0 and Polydipsia R63.1 [facility] [place] [address] [id number]- 2763 02 Apr, 2017 Vertigo R42 and Type 2 diabetes mellitus with unspecified complications E11.8 [facility] [place] [address] [address] 961265- 8546 20 Mar, 2017 [place] [address] 29297- 5218 19 Mar, 2017 Left shoulder pain M25.512 [place] [address] [place] 44513319- 7125 13 Mar, 2017 Vertigo R42 [place] [address] 70061- 7589 12 Mar, 2017 Polydipsia R63.1 [place] [id number] 96825- 1248 12 Mar, 2017 Polydipsia R63.1 [place] [address] 98817- 8205 11 Mar, 2017 Vertigo R42 [place] [address] 18703- 5375 07 Mar, 2017 Type 2 diabetes mellitus with unspecified complications E11.8 ; Vertigo R42 ; Polydipsia R63.1 ; Polyuria R35.8 ; Hypothyroidism ( acquired) E03.9 ; Abnormal urinalysis R82.90 and Dysthymia F34.1 [facility] [place] [address] 44513615- 6136 05 Mar, 2017 Coronary artery disease of sp[place] artery with stable angina pectoris, unspecified whether spokane or transplanted heart I25.118 ; Systolic CHF, chronic I50.22 ; Hyperlipemia, mixed E78.2 and Essential hypertension I10 [facility] [address] [place] [id number] Feb, Dental caries K02.9 [facility] [place] [id number] [place] [address] 87912- 4244 Feb, Type 2 diabetes mellitus with diabetic neuropathy, unspecified E11.40 [facility] [place] [address] [place] [address] 73859- 6107 23 Dec, 2016 Left shoulder pain M25.512 [facility] [place] [id number] [place] [address] 39010- 7770 Dec, [facility] [place] [id number] [place] [address] 31601- 0359 Dec, Type 2 diabetes mellitus with unspecified complications E11.8 [facility] [id number] [place] [address] [id number] Dec, Dental examination Z01.20 [facility] [place] [id number] [place] [address] 66678- 7608 Dec, Type 2 diabetes mellitus with diabetic neuropathy, unspecified E11.40 [facility] [place] [id number] [place] [address] 20745- 6148 Dec, [facility] [place] [id number] [place] [address] 99917- 5934 Dec, Type 2 diabetes mellitus with diabetic neuropathy, unspecified E11.40 [facility] [place] [id number] [place] [address] 97063- 8599 November, Left shoulder pain M25.512 [facility] [place] [address] [place] [address] 63385- 1161 November, [facility] [place] [id number] [place] [address] 62902- 2147 November, Type 2 diabetes mellitus with unspecified complications E11.8 and Dysuria R30.0 [facility] [place] [id number] [place] [address] 75745- 7187 Oct, Left shoulder pain M25.512 [place] [address] [place] [address] 46812- 4015 Sep, Left shoulder pain M25.512 [facility] [place] [id number] [place] [address] 66359- 2859 Sep, Pre-op testing Z01.818 [place] [id number] [place] [address] 74417- 1392 Sep, Pre-op testing Z01.818 [place] [id number] [place] [address] 32560- 4982 Sep, Pre-op testing Z01.818 [place] [id number] [place] [address] 84525- 9697 Sep, Pre-op testing Z01.818 and Mouth pain K13.79 [place] [address] 09921- 6083 Sep, Left shoulder pain M25.512 [place] [address] [id number] [place] [address] 20730- 1673 Aug, Other eczema L30.8 [place] [address] [id number] [place] [address] 11136- 0737 Aug, PVD (peripheral vascular disease) I73.9 ; Type 2 diabetes mellitus with unspecified complications E11.8 ; Acute cystitis with hematuria N30.01 ; Other eczema L30.8 ; Dysuria R30.0 and Left shoulder pain M25.512 [facility] [address] [place] [address] 82640 -9897 Jul, Otalgia of right ear H92.01 and Blood in ear canal, right H92.21 [place] [id number] [place] [address] 08883- 9624 Jul, Arthralgia, unspecified joint M25.50 ; PVD (peripheral vascular disease) I73.9 and Neuropathy G62.9 [place] [id number] [address] 6930 Jul, [facility] [place] [id number] [place] [address] 49578- 1024 Jun, Medicare annual wellness visit, initial Z00.00 ; Cervicalgia M54.2 ; Radiculopathy of cervical region M54.12 ; Encounter for immunization Z23 ; Type 2 diabetes mellitus with unspecified complications E11.8 and Essential hypertension I10 [place] [id number] [place] [address] 71141- 8666 Jun, [place] [address] [id number] [place] [address] 79682- 3612 May, Hypothyroidism (acquired) E03.9 [place] [id number] [place] [address] 18146- 4535 May, Dysuria R30.0 ; Essential hypertension I10 ; Hypothyroidism (acquired) E03.9 and PVD (peripheral vascular disease) I73.9 [facility] [id number] [place] [address] 03204 -2710 May, Burning with urination R30.0 and Acute cystitis with hematuria N30.01 [place] [id number] [place] [address] 39699- 2644 May, Dental examination Z01.20 [place] [id number] [place] [address] 66472- 5328 May, Hypothyroidism (acquired) E03.9 [place] [address] [id number] [place] [address] 39910- 5838 Feb, [place] [address] [id number] [place] [address] 16085- 4434 Feb, Status post amputation of toe of left foot Z89.422 ; PVD ( peripheral vascular disease) I73.9 ; Type 2 diabetes mellitus with unspecified complications E11.8 and Essential hypertension I10 [place] [address] [address] [id number] [place] [address] 99859- 1377 Jan, [facility] [place] [address] [address]- 0318 Jan, Hypothyroidism (acquired) E03.9 [place] [address] [id number] [address]- 5058 Jan, [facility] [place] [address] [id number] [place] [address] 83214- 4515 Jan, [facility] [place] [address] [place] [address] [id number] [place] [address] 18594- 1022 Jan, Type 2 diabetes mellitus with unspecified complications E11.8 ; Status post amputation of toe of left foot Z89.422 and Essential ( primary) hypertension I10 [place] [id number] [place] [address] 70480- 2258 Jan, Type 2 diabetes mellitus with unspecified complications E11.8 ; Status post amputation of toe of left foot Z89.422 ; Essential hypertension I10 and PVD (peripheral vascular disease) I73.9 [place] [id number] [place] [address] 95172- 5690 Jan, [place] [id number] [place] [address] 69218- 2108 Jan, [place] [id number] [place] [address] 81535- 5457 Jan, [place] [address] [address] [id number] [place] [address] 49269- 0064 Jan, Weakness R53.1 ; Fatigue, unspecified type R53.83 ; PVD ( peripheral vascular disease) I73.9 ; Acute osteomyelitis of other site M86.18 ; Type 2 diabetes mellitus with diabetic neuropathy, unspecified E11.40 and penitentiary 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.4 [place] [address] [address]- 2081 Dec, [place] [address] [id number] [place] [address] 13925- 9113 Dec, Type 2 diabetes mellitus with unspecified complications E11.8 [place] [id number] [place] [address] 03133- 5098 Dec, [place] [id number] [place] [address] 62442- 8376 Dec, Pressure ulcer, unspecified pressure ulcer stage L89.90 and Type 2 diabetes mellitus with unspecified complications E11.8 [facility] [id number] [place] [address] 52624 -8413 Dec, Toe infection L08.9 [place] [address] [id number] [place] [address] 01329- 2578 November, Dental caries K02.9 [place] [id number] [place] [address] 48023- 8732 November, [place] [address] 42749- 9192 November, Dental examination Z01.20 [place] [address] [id number] [place] [address] 16940- 1690 Sep, Lipoma of torso D17.1 and Thoracic neuritis M54.14 [place] [address] [address] [id number] [place] [address] 36520- 2558 Sep, [place] [id number] [place] [address] 92942- 1022 Aug, [facility] [id number] [place] [address] 40203 -7208 Jul, Dysuria R30.0 and UTI (urinary tract infection) N39.0 [place] [address] [id number] [place] [address] 18622- 0573 Jun, Left shoulder pain M25.512 [place] [address] [id number] [place] [address] 41372- 0671 May, Shoulder pain, left M25.512 [place] [address] [address] [id number] [place] [address] 51750- 1672 May, [facility] [place] [address] 61762- 4318 May, [facility] [place] [id number] [place] [address] 08343- 4081 May, Left shoulder pain M25.512 [place] [address] 49878- 4095 May, [place] [address] 71017- 6869 Apr, Encounter for immunization Z23 [address] 44016- 4436 Apr, Urinary tract infection, site not specified N39.0 ; Hypotension, unspecified I95.9 ; Type 2 diabetes mellitus with unspecified complications E11.8 and Generalized edema R60.1 [place] [address] [id number] [place] [address] 64027- 2058 Apr, [place] [address] 57543- 1525 Mar, Diabetes with other specified manifestations, type II or unspecified type, not stated as uncontrolled 250.80 [place] [address] [address] [id number] [place] [address] 88345- 3866 Feb, Gout 274.9 and Diabetes 250.00 [place] [address] [id number] [place] [address] 01466- 6915 Jan, [place] [address] [address] [id number] [place] [address] 03117- 0846 November, CAD (coronary artery disease) 414.00 and CHF (congestive heart failure) 428.0 [place] [address] [place] [address] [id number] [place] [address] 99518- 0670 Oct, [place] [address] 28559- 4776 14 Oct, 2014 [facility] [place] [facility] [address] [id number] [place] [address]- 1287 Oct, [facility] [place] [facility] [address] [id number] [place] [address]- 5477 Sep, [facility] [place] [facility] [address] [facility] [id number] [place] [address]- 6244 Sep, [facility] [place] [facility] [address] [facility] [id number] [place] [address]- 5738 Sep, [facility] [place] [facility] [address] [facility] [id number] [place] [address]- 8044 Sep, [facility] [place] [facility] [address] [facility] [id number] [place] [address]- 7645 Aug, [facility] [place] [facility] [address] [facility] [id number] [place] [address]- 7295 Aug, [facility] [place] [facility] [address] [facility] [id number] [place] [address]- 3984 Aug, [facility] [place] [facility] [address] [facility] [id number] [place] [address]- 5913 Aug, 2014 [facility] [place] [facility] [address] [facility] [id number] [place] [address]- 4754 Aug, [facility] [place] [facility] [address] [facility] [id number] [place] [address]- 3275 Aug, 2014 [facility] [place] [facility] [address] [facility] [id number], [place] [address]- 0429 Aug, [facility] [place] [facility] [address] [facility] [id number] [place] [address]- 6893 Aug, [facility] [place] [facility] [address] [facility] [id number], [place] [address]- 8551 Jul, [facility] [place] [facility] [address] [facility] [id number] [place] [address]- 1950 Jul, [facility] [place] [facility] [address] [id number] [place] [address]- 5084 Jul, [facility] [place] [facility] [address] [id number] [place] [address]- 7960 Jul, [facility] [place] [facility] [address] [id number] [place] [address]- 6883 Jul, [facility] [place] [facility] [address] [id number] [place] [address]- 7440 Jul, [facility] [place] [facility] [address] [id number] [place] [address]- 2666 Jul, [facility] [place] [facility] [address] [id number] [place] [address]- 9786 Jul, [facility] [place] [facility] [address] [id number] [place] [address]- 7918 Jul, [facility] [place] [facility] [address] [id number] [place] [address]- 6121 Jul, [facility] [place] [facility] [address] [id number] [place] [address]- 9205 Jun, [facility] [place] [facility] [address] [id number] [place] [address]- 8727 Jun, [facility] [place] [facility] [address] [id number] [place] [address]- 4272 Jun, [facility] [place] [facility] [address] [id number] [place] [address]- 2734 Jun, [facility] [place] [facility] [address] [id number] [place] [address]- 7507 Jun, [facility] [place] [facility] [address] [id number] [place] 1499 Jun, [facility] [place] [facility] [address] [id number] [place] [address]- 4055 Jun, [facility] [place] [facility] [address] [id number] [place] [address]- 5804 Jun, [facility] [place] [facility] [address] [id number] [place] [address]- 6367 Jun, [facility] [place] [facility] [address] [id number] [place] [address]- 0386 Jun, [facility] [place] [facility] [address] [id number] [place] [address]- 1559 May, [facility] [place] [facility] [address] [id number] [place] [address]- 9822 May, [facility] [place] [facility] [address] [id number] [place] [address]- 9741 Mar, [facility] [place] [facility] [address] [id number] [place] [address]- 3194 Mar, [facility] [place] [facility] [address] [id number] [place] [address]- 4602 Mar, [facility] [place] [facility] [address] [id number] [place] [address]- 8285 Mar, [facility] [place] [facility] [address] [id number] [place] [address]- 9426 Feb, [facility] [place] [facility] [address] [id number] [place] [address]- 2568 Feb, [facility] [place] [facility] [address] [id number] [place] [address]- 0693 Feb, [facility] [place] [facility] [address] [id number] [place] [address]- 8474 Jan, [facility] [place] [facility] [address] [id number] [place] [address] Jan, [facility] [place] [facility] [address] [id number] [place] [address] Jan, [facility] [place] [facility] [address] [id number] [place] [address] Jan, [facility] [place] [facility] [address] [id number] [place] [address] Jan, [facility] [place] [facility] [address] [id number] [place] [address] Jan, [facility] [place] [facility] [address] [id number] [place] [address] Jan, [facility] [place] [facility] [address] [id number] [place] [address] Jan, [facility] [place] [facility] [address] [id number] [place] [address] Jan, [facility] [place] [facility] [address] [id number] [place] [address] Jan, [facility] [place] [facility] [address] [id number] [place] [address] Dec, [facility] [place] [facility] [address] [id number] [place] [address] Dec, [facility] [place] [facility] [address] [id number] [place] [address] November, [facility] [place] [facility] [address] [id number] [place] [address] November, [facility] [place] [facility] [address] [id number] [place] [address] November, [facility] [place] [facility] [address] [id number] [place] [address] November, [facility] [place] [facility] [address] [id number] [place] [address] November, [facility] [place] [facility] [address] [id number] [place] [address] November, [facility] [place] [facility] [address] [id number] [place] [address] November, [facility] [place] [facility] [address] [id number] [place] [address] Oct, [facility] [place] [facility] [address] [id number] [place] [address] Oct, [facility] [place] [facility] [address] [id number] [place] [address] Sep, [facility] [place] [facility] [address] [id number] [place] [address] Sep, [facility] [place] [facility] [address] [id number] [place] [address] Sep, [facility] [place] [facility] [address] [id number] [place] [address] Sep, [facility] [place] [facility] [address] [id number] [place] [address] Sep, [facility] [place] [facility] [address] [id number] [place] [address] Sep, [facility] [place] [facility] [address] [id number] [place] [address] Sep, [facility] [place] [facility] [address] [id number] [place] [address] Sep, [facility] [place] [facility] [address] [id number] [place] [address] Sep, [facility] [place] [facility] [address] [id number] [place] [address] Sep, [facility] [place] [facility] [address] [id number] [place] [address] Aug, [facility] [place] [facility] [address] [id number] [place] [address] Aug, [facility] [place] [facility] [address] [id number] [place] [address] Jul, [facility] [place] [facility] [address] [id number] [place] [address] Jul, [facility] [place] [facility] [address] [id number], [place] [address] Jul, [facility] [place] [facility] [address] [id number] [place] [address] Jul, [facility] [place] [facility] [address] [id number], [place] [address] Jul, [facility] [place] [facility] [address] [facility] [id number] [place] [address] 58[address] Jul, [facility] [place] [facility] [address] [id number] [place] [address] Jun, [facility] [place] [facility] [address] [id number] [place] [address] 96[address] Jun, [facility] [place] [facility] [address] [id number] [place] [address] 47[address] Jun, [facility] [place] [facility] [address] [facility] [id number] [place] [address]- [address] Jun, [facility] [place] [facility] [address] [facility] [id number] [place] [address] May, [facility] [place] [facility] [address] [facility] [id number] [place] [address] 14 May, 2013 [facility] [place] [facility] [address] [facility] [id number], [place] [address] 39[address] May, [facility] [place] [facility] [address] [id number], [place] [address] May, [facility] [place] [facility] [address] [id number], [place] [address] May, [facility] [place] [facility] [address] [id number], [place] [address] Apr, [facility] [place] [facility] [address] [id number] [place] [address]- 24[address] Apr, [facility] [place] [facility] [address] [facility] [id number], [place] [address] Apr, [facility] [place] [facility] [address] [id number] [place] [address] Apr, [facility] [place] [facility] [address] [id number] [place] [address]- 75[address] Apr, [facility] [place] [facility] [address] [id number] [place] [address] 2546 Apr, [facility] [place] [facility] [address] [id number] [place] [address]- 6[address] Apr, [facility] [place] [facility] [address] [id number] [place] [address]- 9[address] Apr, [facility] [place] [facility] [address] [id number] [place] [address]- 4761 Apr, [facility] [place] [facility] [address] [id number] [place] [address]- [address] Apr, [facility] [place] [facility] [address] [id number] [place] [address] 74[address] Apr, [facility] [place] [facility] [address] [id number] [place] [address] 49[address] Apr, [facility] [place] [facility] [address] [id number] [place] [address] 8[address] Mar, [facility] [place] [facility] [address] [id number] [place] [address] 2546 Mar, [facility] [place] [facility] [address] [id number] [place] [address]- 25[address] Feb, [facility] [place] [facility] [address] [id number] [place] [address]- 25[address] Jan, [facility] [place] [facility] [address] [id number] [place] [address] 25[address] Jan, [facility] [place] [facility] [address] [id number] [place] [address]- 25[address] Jan, [facility] [place] [facility] [address] [id number] [place] [address]- 2409 Jan, [facility] [place] [facility] [address] [id number] [place] [address] 65[address] Dec, [facility] [place] [facility] [address] [id number] [place] [address] 9572 Dec, [facility] [place] [facility] [address] [id number] [place] [address]- 6[address] Dec, [facility] [place] [facility] [address] [id number] [place] [address]- 59[address] Dec, [facility] [place] [facility] [address] [id number] [place] [address] 74[address] Dec, [facility] [place] [facility] [address] [id number] [place] [address]- 59[address] Dec, [facility] [place] [facility] [address] [id number] [place] [address]- 9088 Dec, [facility] [place] [facility] [address] [id number] [place] [address]- 1108 November, [facility] [place] [facility] [address] [id number] [place] [address] 7[address] November, [facility] [place] [facility] [address] [id number] [place] [address]- 5184 November, [facility] [place] [facility] [address] [id number] [place] [address] 66[address] Oct, [facility] [place] [facility] [address] [id number], [place] [address] Oct, [facility] [place] [facility] [address] [id number] [place] [address]- 45[address] Oct, [facility] [place] [facility] [address] [id number] [place] [address]- 7077 Oct, [facility] [place] [facility] [address] [id number] [place] [address]- 1169 Oct, [facility] [place] [facility] [address] [id number] [place] [address]- 9[address] 26 Sep, 2012 [facility] [address] [id number] [place] [address]- 32[address] 20 Sep, 2012 [facility] [place] [facility] [address] [id number] [place] [address]- [address] 13 Sep, 2012 [facility] [address] [id number] [place] [address]- 3196 Sep, [facility] [place] [facility] [address] [id number] [place] [address] 2546 Aug, [facility] [address] [id number] [place] [address]- [address] Aug, [facility] [place] [facility] [address] [facility] [id number] [place] [address] Aug, [facility] [address] [id number] [place] [address] Aug, [facility] [address] [id number] [place] [address] 0[address] Jul, [facility] [place] [facility] [address] [id number] [place] [address] Jul, [facility] [address] [facility] [id number] [place] [address]- 0[address] Jun, [facility] [place] [facility] [address] [id number] [place] [address] 2546 Jun, [facility] [place] [facility] [address] [id number] [place] [address] 2546 Jun, [facility] [place] [facility] [address] [id number] [place] [address]- 1046 Jun, [facility] [place] [facility] [address] [facility] [id number] [place] [address] 2546 May, [facility] [place] [facility] [address] [facility] [id number] [place] [address]- 9409 May, [facility] [place] [facility] [address] [id number] [place] [address]- 3008 May, [facility] [place] [facility] [address] [id number] [place] [address]- 8937 May, [facility] [place] [facility] [address] [id number] [place] [address]- 8329 Apr, [facility] [place] [facility] [address] [id number] [place] [address]- 1240 Apr, [facility] [place] [facility] [address] [id number] [place] [address]- 9131 Apr, [facility] [place] [facility] [address] [id number] [place] [address]- 8621 Apr, [facility] [place] [facility] [address] [facility] [id number] [place] [address]- 2626 Apr, [facility] [place] [facility] [address] [id number], [place] [address]- 30[address] Apr, [facility] [place] [facility] [address] [facility] [id number] [place] [address]- 4698 Apr, [facility] [place] [facility] [address] [facility] [id number], [place] [address]- 3862 Apr, [facility] [place] [facility] [address] [facility] [id number], [place] [address]- 7614 Apr, [facility] [place] [facility] [address] [id number], [place] [address]- 2115 Apr, [facility] [place] [facility] [address] [id number], [place] [address]- 0988 Feb, [facility] [place] [facility] [address] [id number], [place] [address]- 8919 Feb, [facility] [place] [facility] [address] [facility] [id number], [place] [address]- 7291 Jan, [facility] [place] [facility] [address] [id number], [place] [address]- 0965 Jan, [facility] [address] [id number] [place] [address]- 6944 Jan, [facility] [place] [facility] [address] [id number] [place] [address]- 6636 Jan, [facility] [place] [facility] [address] [id number] [place] [address]- 7089 Jan, [facility] [place] [facility] [address] [id number] [place] [address]- 8868 Jan, [facility] [place] [facility] [address] [id number] [place] [address]- 9075 Dec, [facility] [place] [facility] [address] [id number] [place] [address]- 9786 November, [facility] [address] [id number] [place] [address]- 8431 November, [facility] [place] [facility] [address] [id number] [place] [address]- 8681 November, [facility] [address] [id number] [place] [address]- [address] Sep, [facility] [place] [facility] [address] [id number] [place] [address]- 9819 Sep, [facility] [place] [facility] [address] [id number] [place] [address]- 8574 Sep, [facility] [place] [facility] [address] [id number] [place] [address]- 1816 Sep, [facility] [place] [facility] [address] [id number] [place] [address]- 5361 Sep, [facility] [place] [facility] [address] [id number] [place] [address]- 4963 Sep, [facility] [place] [facility] [address] [facility] [id number] [place] [address]- 6168 Aug, [facility] [place] [facility] [address] [id number] [place] [address]- 0731 10 Aug, 2011 [facility] [place] [facility] [address] [id number] [place] [address]- 3727 Aug, [facility] [place] [facility] [address] [id number] [place] [address]- 6874 Jul, [facility] [place] [facility] [address] [id number] [place] [address]- 2131 Jul, [facility] [place] [facility] [address] [id number] [place] [address]- 0061 Jul, [facility] [place] [facility] [address] [id number] [place] [address]- 2913 Jul, [facility] [place] [facility] [address] [id number] [place] [address]- 6757 Jun, [facility] [place] [facility] [address] [id number] [place] [address]- 5179 Jun, [facility] [place] [facility] [address] [id number] [place] [address]- 4594 Jun, [facility] [place] [facility] [address] [id number] [place] [address]- 6593 Jun, [facility] [place] [facility] [address] [id number] [place] [address]- 7303 Jun, [facility] [place] [facility] [address] [id number] [place] [address]- 1327 Jun, [facility] [place] [facility] [address] [id number] [place] [address]- 0474 May, [facility] [place] [facility] [address] [id number] [place] [address]- 8423 May, [facility] [place] [facility] [address] [id number] [place] [address]- 2434 May, [facility] [place] [facility] [address] [id number] [place] [address]- 8296 Apr, [facility] [address] [id number] [place] [address]- 9312 11 Jan, 2011 [facility] [address] [id number] [place] [address]- 9886 20 Jun, 2010 [facility] [address] [id number] [place] [address]- 1266 20 Jun, 2010 [facility] [place] [facility] [address] [id number] [place] [address]- 6316 15 Jun, 2010 [facility] [address] [id number] [place] [address]- 5426 15 Jun, 2010 [facility] [address] [id number] [place] [address]- 9556 15 Jun, 2010 [facility] [address] [id number] [place] [address]- 8349 13 Jun, 2010 [facility] [place] [facility] [address] [id number] [place] [address]- 4061 13 Jun, 2010 [facility] [address] [id number] [place] [address]- 4013 Apr, [facility] [place] [facility] [address] [id number] [place] [address]- 9556 17 Feb, 2010 [facility] [address] [id number], [place] [address]- 1559 15 Aug, 2009 [facility] [place] [facility] [address] [id number], [place] [address]- 7500 18 Jul, 2009 [facility] [place] [facility] [address] [id number] [place] [address]- 4427 11 Jul, 2009 [facility] [place] [facility] [address] [id number] [place] [address]- 0225 29 Jun, 2009 [facility] [place] [facility] [address] [id number] [place] [address]- 2541 28 Jun, 2009 [facility] [place] [facility] [address] [id number] [place] [address]- 6498 28 Jun, 2009 [facility] [address] [facility] [id number] [place] [address]- 3837 Jun, [facility] [address] [facility] [id number] [place] [address] 16 Jun, 2009 [facility] [address] [facility] [id number], [place] [address]- 6836 Jun, [facility] [address] [facility] [id number] [place] [address] 2549 Jun, [facility] [address] [facility] [id number] [place] [address], [place] [address] 30 May, 2009 [facility] [address] [facility] [id number] [place] [address]- 3949 27 May, 2009 [facility] [id number] [place] [address]- 0719 May, [facility] [address] [facility] [id number], [place] [address]- 8337 May, [facility] [id number], [place] [address]- 2431 May, [facility] [address] [facility] [id number], [place] [address]- 2387 16 May, 2009 [facility] [address] [facility] [id number], [place] [address]- 2547 May, [facility] [address] [facility] [id number], [place] [address]- 4673 16 Apr, 2009 [facility] [address] [facility] [id number], [place] [address]- 8176 Apr, [facility] [address] [facility] [id number], [place] [address]- 5199 Jan, [facility] [address] [facility] [id number], [place] [address]- 6508 Oct, IMMUNIZATIONS No Known Immunizations SOCIAL HISTORY Never Assessed REASON FOR VISIT PAIN PLAN OF CARE Activity Details Follow Up prn Reason:1 hr surgical te #17 and 18 VITAL SIGNS Blood pressure systolic 133 mmHg 2017-01-08 Blood pressure diastolic 88 mmHg 2017-01-08 MEDICATIONS Medication Instructions Dosage Frequency Start Date End Date Duration Status Zontivity 2.08 MG Orally Once a day 1 tablet 24h Active Levothyroxine Sodium 25 MCG TAKE 1 TABLET BY MOUTH ONCE DAILY 30 Active Tresiba FlexTouch 200 UNIT/ML Subcutaneous once a day 20u 24h Jan, Active Trutest Blood Glucose Test Strip N/A subcutaneously 6 times a day. E11.40 test blood sugar Dec, Active Clopidogrel Bisulfate 75 MG TAKE 1 TABLET BY MOUTH ONCE A DAY 30 30 Active Tramadol HCl 50 mg Orally 2 times a day 1 tablet 12h Aug, 28 days Active Fenofibric Acid 135 MG Orally Once a day 1 capsule 24h Active Carvedilol 3.125 MG Orally 2 times a day 1/2 tablet 12h Active NovoLog Flexpen 100 UNIT/ML Subcutaneous 3 times a day [id number] units with breakfast and 5 with lunch 8h Active Betamethasone Dipropionate Aug 0.05 % Externally 2 times a day 1 application to affected area 12h Aug, Active BD Pen Needle Mini U/F 31G X 5 MM subcutaneously 4 times a day as directed 6h Dec, 30 days Active Crestor 10 MG Orally Once a day 1 tablet 24h Active Enalapril Maleate 2.5 MG Orally Once a day 1 tablet 24h Active Citalopram Hydrobromide 20 MG TAKE 1 TABLET BY MOUTH EVERY DAY 90 Active Aspirin 81 MG Orally Once a day 1 tablet 24h Active Furosemide 40 MG TAKE 1 TABLET BY MOUTH ONCE A DAY 30 Active RESULTS No Results PROCEDURES Procedure Date Ordered Result Body Site LTD ORAL EVALUATION - PROBLEM FOCUS January 08, 2017 INTRAORL-PERIAPICAL 1 FILM [id number] January 08, 2017 INSTRUCTIONS MEDICATIONS ADMINISTERED No Known Medications [...] History Parkinson disease Surgical History quadruple bypass 2007 Surgical History [...]
--- NOTE | 2018-11-09 13:45 | Diagnostic Imaging Report ---
CLINICAL INDICATION: Patient fell this past hour backwards striking posterior head. Patient has head and neck pain. EXAM: Head CT without IV contrast. Axial CT scan of the cervical spine with sagittal and coronal reformations. COMPARISON: CT angiogram of the head/neck dated 04/09/2017. FINDINGS: Head CT: There is minimal hyperdense extra-axial intracranial blood along the left parafalcine frontal region, best seen on image 21. There is no other evidence of intracranial blood seen. Mild brain parenchymal volume loss again seen with the temporal lobes affected the most. There are patchy areas of low-attenuation white matter changes seen throughout both cerebral hemispheres, likely representing chronic small vessel ischemic disease. There is normal [place]-white matter distinction. There is no significant midline shift or herniation. There is no evidence of hydrocephalus. The basal cisterns are unremarkable. There is a moderate-sized area of extracranial soft tissue swelling and subcutaneous air involving the left posterior aspect of the head. There is no skull fracture. Otherwise, the orbits and globes are unremarkable. There is mild mucosal thickening involving the ethmoid sinus and right maxillary sinus. Temporal bones show no significant abnormality. Cervical spine: There is no acute cervical spine fracture or dislocation. There are small vertebral body spurs involving the cervical spine. There is no significant central canal or neuroforamen narrowing. Neck soft tissue structures show no significant abnormality. Visualized upper lung aiken are clear. IMPRESSION: 1: There is minimal extra-axial intracranial blood in the left parafalcine frontal region. Given its location, subarachnoid or subdural blood may be considered. 2: There is a moderate-sized area of extracranial soft tissue swelling and suspected laceration in the left posterior aspect of the head. There is no skull fracture. 3: Cervical spine degenerative disease with no acute cervical spine fracture or dislocation. Results of this report were discussed with Alek Blair via the telephone on 11/09/2018 at 1315 hours. Dictated by: Dictated on workstation # [id number]
[2018-11-09 13:55] LABS: BASOPHILS # (AUTO) 0.1 10^3/uL (0.0-0.1); BASOPHILS % (AUTO) 1 % (0-10); EOSINOPHILS # (AUTO) 0.2 10^3/uL (0.0-0.3); EOSINOPHILS % (AUTO) 3 % (0-10); HEMATOCRIT 45 % (35-52); LYMPHOCYTES # (AUTO) 1.3 X 10^3 (1.0-4.0); LYMPHOCYTES % (AUTO) 19 % (12-44); MEAN CORPUSCULAR HEMOGLOBIN 30 PG (25-34); MEAN CORPUSCULAR HGB CONC 33 G/DL (32-36); MEAN CORPUSCULAR VOLUME 88 FL (80-99); MONOCYTES # (AUTO) 0.7 X 10^3 (0.0-1.0); MONOCYTES % (AUTO) 10 % (0-12); NEUTROPHILS # (AUTO) 4.4 X 10^3 (1.8-7.8); NEUTROPHILS % (AUTO) 67 % (42-75); PLATELET COUNT 245 10^3/uL (130-400); RED CELL DISTRIBUTION WIDTH 13.5 % (10.0-14.5); WHITE BLOOD COUNT 6.5 10^3/uL (4.3-11.0)
[2018-11-09 14:13] LABS: ALBUMIN 4.2 GM/DL (3.2-4.5); BILIRUBIN,TOTAL 0.4 MG/DL (0.1-1.0); CALCIUM 9.7 MG/DL (8.5-10.1); CREATININE SERUM 1.05 MG/DL (0.60-1.30); MAGNESIUM 2.3 MG/DL (1.8-2.4); POTASSIUM 4.6 MMOL/L (3.6-5.0); TOTAL PROTEIN 7.1 GM/DL (6.4-8.2)
[2018-11-09 16:34] VITALS: BP 166/81
== END 2018-11-09 16:34 | disposition short-term general hospital (02) ==
LOC: EDUNIT# 12:29 → ER 12:30
DX: S00.01XA Abrasion of scalp, initial encounter (principal); I25.10 Atherosclerotic heart disease of native coronary artery without angina pectoris; E78.00 Pure hypercholesterolemia, unspecified; I10 Essential (primary) hypertension; I73.9 Peripheral vascular disease, unspecified; K21.9 Gastro-esophageal reflux disease without esophagitis; E11.40 Type 2 diabetes mellitus with diabetic neuropathy, unspecified; R40.2142 Coma scale, eyes open, spontaneous, at arrival to emergency department; R40.2252 Coma scale, best verbal response, oriented, at arrival to emergency department; R40.2362 Coma scale, best motor response, obeys commands, at arrival to emergency department; Z87.448 Personal history of other diseases of urinary system; Z88.2 Allergy status to sulfonamides; Z88.8 Allergy status to other drugs, medicaments and biological substances; Z88.1 Allergy status to other antibiotic agents; Z79.82 Long term (current) use of aspirin; Z79.4 Long term (current) use of insulin; Z79.02 Long term (current) use of antithrombotics/antiplatelets; Z90.710 Acquired absence of both cervix and uterus; Z95.1 Presence of aortocoronary bypass graft; Z86.711 Personal history of pulmonary embolism; Z88.0 Allergy status to penicillin; W10.8XXA Fall (on) (from) other stairs and steps, initial encounter; W22.09XA Striking against other stationary object, initial encounter
CPT/HCPCS: 36415; 70450; 72125; 80053; 83735; 85025; 85610; 85730; 90715; 93005; 93041

== ENCOUNTER → 2019-03-04 | Outpatient (CLI) | payer MEDICARE, MEDICAID ==
[~2019-03-04] MED LIST changes: -ROSU10TA27 PO; +ROSU10TA28 PO
== END ==
LOC: CARD 12:04
PROVIDERS: ATTEND Physician Assistant
DX: I35.8 Other nonrheumatic aortic valve disorders (principal); I25.10 Atherosclerotic heart disease of native coronary artery without angina pectoris; I13.0 Hypertensive heart and chronic kidney disease with heart failure and stage 1 through stage 4 chronic kidney disease, or unspecified chronic kidney disease; N18.9 Chronic kidney disease, unspecified; K21.9 Gastro-esophageal reflux disease without esophagitis; E78.5 Hyperlipidemia, unspecified
CPT/HCPCS: 93306

== ENCOUNTER → 2019-11-08 | Outpatient (CLI) | payer MEDICARE, MEDICAID ==
[~2019-11-08] MED LIST changes: +FENO48TA10 PO; -FENO48TA5 PO; +MECL-172 PO; -MECL12.579 PO; -MONT10TA24 PO; +MONT10TA26 PO; -TRAM50TA2 PO; +TRM50T PO
== END ==
LOC: WOUNDCARE 09:09
PROVIDERS: ATTEND Surgery
DX: E11.621 Type 2 diabetes mellitus with foot ulcer (principal); E11.42 Type 2 diabetes mellitus with diabetic polyneuropathy; L97.312 Non-pressure chronic ulcer of right ankle with fat layer exposed; I70.323 Atherosclerosis of unspecified type of bypass graft(s) of the extremities with rest pain, bilateral legs; F03.90 Unspecified dementia, unspecified severity, without behavioral disturbance, psychotic disturbance, mood disturbance, and anxiety; L03.115 Cellulitis of right lower limb; I25.10 Atherosclerotic heart disease of native coronary artery without angina pectoris; I11.0 Hypertensive heart disease with heart failure; I50.9 Heart failure, unspecified; E11.51 Type 2 diabetes mellitus with diabetic peripheral angiopathy without gangrene; M10.9 Gout, unspecified; M19.91 Primary osteoarthritis, unspecified site; E11.40 Type 2 diabetes mellitus with diabetic neuropathy, unspecified; Z95.1 Presence of aortocoronary bypass graft; Z89.411 Acquired absence of right great toe; Z89.421 Acquired absence of other right toe(s); Z79.82 Long term (current) use of aspirin; Z79.899 Other long term (current) drug therapy; Z79.01 Long term (current) use of anticoagulants
CPT/HCPCS: 97597

== ENCOUNTER → 2019-11-08 | Outpatient (CLI) | payer MEDICARE, MEDICAID ==
--- NOTE | 2019-11-08 11:48 | Diagnostic Imaging Report ---
INDICATION: Chronic pressure older similar AP, oblique and lateral views of the right foot are obtained. Comparison is made to study of 07/29/2017. There is stable appearance of amputated right 1st and 2nd toes. There has been mild worsening of irregularity of the distal articular surface of 3rd metatarsal compatible with bone resorption of chronic nature. The metallic linear foreign object in the dorsum of the foot is stable in overall appearance. There is diffuse atherosclerotic calcification. No definite site of new bone destruction or periosteal reaction is identified. IMPRESSION: Stable chronic findings including degenerative change, previous amputations and flexion contractures as well as linear foreign body in the dorsum of the foot. No definite acute abnormality is appreciated. Dictated by: Dictated on workstation # [id number]
[2019-11-08 12:19] LABS: ALBUMIN 4.3 GM/DL (3.2-4.5); BILIRUBIN,TOTAL 0.3 MG/DL (0.1-1.0); CALCIUM 9.2 MG/DL (8.5-10.1); CREATININE SERUM 0.98 MG/DL (0.60-1.30); POTASSIUM 4.5 MMOL/L (3.6-5.0); TOTAL PROTEIN 7.4 GM/DL (6.4-8.2)
== END ==
LOC: RAD 11:18
PROVIDERS: ATTEND Surgery
DX: E11.621 Type 2 diabetes mellitus with foot ulcer (principal); E11.42 Type 2 diabetes mellitus with diabetic polyneuropathy; L97.312 Non-pressure chronic ulcer of right ankle with fat layer exposed; I70.323 Atherosclerosis of unspecified type of bypass graft(s) of the extremities with rest pain, bilateral legs; F03.90 Unspecified dementia, unspecified severity, without behavioral disturbance, psychotic disturbance, mood disturbance, and anxiety; L03.115 Cellulitis of right lower limb; Z89.411 Acquired absence of right great toe; Z89.421 Acquired absence of other right toe(s)
CPT/HCPCS: 36415; 73630; 80053; 83036; 84134

== ENCOUNTER → 2019-11-15 | Outpatient (CLI) | payer MEDICARE, MEDICAID | LOC: WOUNDCARE 10:06 | PROVIDERS: ATTEND Surgery | DX: E11.621 Type 2 diabetes mellitus with foot ulcer (principal); E11.42 Type 2 diabetes mellitus with diabetic polyneuropathy; L97.312 Non-pressure chronic ulcer of right ankle with fat layer exposed; I70.233 Atherosclerosis of native arteries of right leg with ulceration of ankle; F03.90 Unspecified dementia, unspecified severity, without behavioral disturbance, psychotic disturbance, mood disturbance, and anxiety; L03.115 Cellulitis of right lower limb; Z89.411 Acquired absence of right great toe; Z89.421 Acquired absence of other right toe(s); I11.0 Hypertensive heart disease with heart failure; I50.9 Heart failure, unspecified; E11.51 Type 2 diabetes mellitus with diabetic peripheral angiopathy without gangrene; M10.9 Gout, unspecified; M19.91 Primary osteoarthritis, unspecified site; Z95.1 Presence of aortocoronary bypass graft | CPT/HCPCS: 99212 ==

== ENCOUNTER → 2019-11-29 | Outpatient (CLI) | payer MEDICARE, MEDICAID | LOC: WOUNDCARE 10:08 | PROVIDERS: ATTEND Surgery | DX: E11.621 Type 2 diabetes mellitus with foot ulcer (principal); E11.42 Type 2 diabetes mellitus with diabetic polyneuropathy; L97.312 Non-pressure chronic ulcer of right ankle with fat layer exposed; I70.233 Atherosclerosis of native arteries of right leg with ulceration of ankle; F03.90 Unspecified dementia, unspecified severity, without behavioral disturbance, psychotic disturbance, mood disturbance, and anxiety; I11.0 Hypertensive heart disease with heart failure; I50.9 Heart failure, unspecified; E11.51 Type 2 diabetes mellitus with diabetic peripheral angiopathy without gangrene; M10.9 Gout, unspecified; M19.91 Primary osteoarthritis, unspecified site; Z95.1 Presence of aortocoronary bypass graft | CPT/HCPCS: 11042 ==

== ENCOUNTER → 2019-12-06 | Outpatient (CLI) | payer MEDICARE, MEDICAID | LOC: WOUNDCARE 10:46 | PROVIDERS: ATTEND Surgery | DX: E11.621 Type 2 diabetes mellitus with foot ulcer (principal); E11.42 Type 2 diabetes mellitus with diabetic polyneuropathy; L97.312 Non-pressure chronic ulcer of right ankle with fat layer exposed; I70.233 Atherosclerosis of native arteries of right leg with ulceration of ankle; F03.90 Unspecified dementia, unspecified severity, without behavioral disturbance, psychotic disturbance, mood disturbance, and anxiety; L03.115 Cellulitis of right lower limb | CPT/HCPCS: 11042 ==

== ENCOUNTER → 2019-12-14 | Outpatient (CLI) | payer MEDICARE, MEDICAID | LOC: WOUNDCARE 10:08 | PROVIDERS: ATTEND Surgery | DX: E11.621 Type 2 diabetes mellitus with foot ulcer (principal); E11.42 Type 2 diabetes mellitus with diabetic polyneuropathy; L97.312 Non-pressure chronic ulcer of right ankle with fat layer exposed; I70.233 Atherosclerosis of native arteries of right leg with ulceration of ankle; F03.90 Unspecified dementia, unspecified severity, without behavioral disturbance, psychotic disturbance, mood disturbance, and anxiety; L03.115 Cellulitis of right lower limb; I11.0 Hypertensive heart disease with heart failure; I50.9 Heart failure, unspecified; E11.51 Type 2 diabetes mellitus with diabetic peripheral angiopathy without gangrene; M10.9 Gout, unspecified; M19.91 Primary osteoarthritis, unspecified site; Z95.1 Presence of aortocoronary bypass graft | CPT/HCPCS: 11042 ==

== ENCOUNTER → 2019-12-20 | Outpatient (CLI) | payer MEDICARE, MEDICAID | LOC: WOUNDCARE 10:04 | PROVIDERS: ATTEND Surgery | DX: E11.621 Type 2 diabetes mellitus with foot ulcer (principal); L97.312 Non-pressure chronic ulcer of right ankle with fat layer exposed; E11.42 Type 2 diabetes mellitus with diabetic polyneuropathy; I70.233 Atherosclerosis of native arteries of right leg with ulceration of ankle; F03.90 Unspecified dementia, unspecified severity, without behavioral disturbance, psychotic disturbance, mood disturbance, and anxiety; I11.0 Hypertensive heart disease with heart failure; I50.9 Heart failure, unspecified; E11.51 Type 2 diabetes mellitus with diabetic peripheral angiopathy without gangrene; M10.9 Gout, unspecified; M19.91 Primary osteoarthritis, unspecified site; Z95.1 Presence of aortocoronary bypass graft; Z89.411 Acquired absence of right great toe; Z89.421 Acquired absence of other right toe(s) | CPT/HCPCS: 11042 ==

== ENCOUNTER → 2019-12-27 | Outpatient (CLI) | payer MEDICARE, MEDICAID | LOC: WOUNDCARE 10:10 | PROVIDERS: ATTEND Surgery | DX: E11.621 Type 2 diabetes mellitus with foot ulcer (principal); E11.52 Type 2 diabetes mellitus with diabetic peripheral angiopathy with gangrene; E11.42 Type 2 diabetes mellitus with diabetic polyneuropathy; I70.261 Atherosclerosis of native arteries of extremities with gangrene, right leg; L97.312 Non-pressure chronic ulcer of right ankle with fat layer exposed; F03.90 Unspecified dementia, unspecified severity, without behavioral disturbance, psychotic disturbance, mood disturbance, and anxiety | CPT/HCPCS: 11042 ==

== ENCOUNTER → 2020-01-03 | Outpatient (CLI) | payer MEDICARE, MEDICAID | LOC: WOUNDCARE 10:04 | PROVIDERS: ATTEND Surgery | DX: E11.621 Type 2 diabetes mellitus with foot ulcer (principal); E11.42 Type 2 diabetes mellitus with diabetic polyneuropathy; I70.233 Atherosclerosis of native arteries of right leg with ulceration of ankle; L97.312 Non-pressure chronic ulcer of right ankle with fat layer exposed; F03.90 Unspecified dementia, unspecified severity, without behavioral disturbance, psychotic disturbance, mood disturbance, and anxiety | CPT/HCPCS: 99212 ==

== ENCOUNTER 2020-02-26 19:32 | Emergency (ER) | payer MEDICARE, MEDICAID ==
[~2020-02-26] VITALS: Ht 160 cm; Wt 76.2 kg
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
[2020-02-26 20:02] LABS: BILIRUBIN,URINE NEGATIVE (NEGATIVE); CLARITY,URINE CLOUDY; COLOR,URINE YELLOW; GLUCOSE, URINE (UA) 3+ (NEGATIVE); KETONES,URINE NEGATIVE (NEGATIVE); LEUKOCYTE ESTERASE ,URINE 1+ (NEGATIVE); NITRITE,URINE POSITIVE (NEGATIVE); PROTEIN,URINE NEGATIVE (NEGATIVE)
[2020-02-26 20:09] LABS: WBC,URINE 50-100 /HPF
[2020-02-26 20:10] LABS: BACTERIA,URINE FEW /HPF
[2020-02-26 20:15] LABS: BASOPHILS # (AUTO) 0.1 10^3/uL (0.0-0.1); BASOPHILS % (AUTO) 1 % (0-10); EOSINOPHILS # (AUTO) 0.1 10^3/uL (0.0-0.3); EOSINOPHILS % (AUTO) 2 % (0-10); HEMATOCRIT 47 % (35-52); HEMOGLOBIN 15.3 G/DL (11.5-16.0); LYMPHOCYTES # (AUTO) 1.7 X 10^3 (1.0-4.0); LYMPHOCYTES % (AUTO) 24 % (12-44); MEAN CORPUSCULAR HEMOGLOBIN 28 PG (25-34); MEAN CORPUSCULAR HGB CONC 32 G/DL (32-36); MEAN CORPUSCULAR VOLUME 87 FL (80-99); MEAN PLATELET VOLUME 11.2 FL (7.4-10.4); MONOCYTES # (AUTO) 0.5 X 10^3 (0.0-1.0); MONOCYTES % (AUTO) 8 % (0-12); NEUTROPHILS # (AUTO) 4.5 X 10^3 (1.8-7.8); NEUTROPHILS % (AUTO) 65 % (42-75); PLATELET COUNT 246 10^3/uL (130-400); RED CELL DISTRIBUTION WIDTH 14.1 % (10.0-14.5); WHITE BLOOD COUNT 6.9 10^3/uL (4.3-11.0)
[2020-02-26 20:23] LABS: AMPHETAMINE SCREEN, URINE NEGATIVE (NEGATIVE); BARBITURATE SCREEN URINE NEGATIVE (NEGATIVE); BENZODIAZEPINES SCREEN URINE NEGATIVE (NEGATIVE); CANNABINOID SCREEN, URINE NEGATIVE (NEGATIVE); COCAINE SCREEN URINE NEGATIVE (NEGATIVE); METHADONE STAT NEGATIVE (NEGATIVE); METHAMPHETAMINE SCREEN URINE S NEGATIVE (NEGATIVE); OPIATE SCREEN URINE NEGATIVE (NEGATIVE); OXYCODONE STAT NEGATIVE (NEGATIVE); PROPOXYPHENE STAT NEGATIVE (NEGATIVE); TRICYCLIC ANTIDEPRESSANTS SCRE POSITIVE (NEGATIVE)
[2020-02-26 20:23] LABS: ALBUMIN 4.4 GM/DL (3.2-4.5); CHLORIDE 109 MMOL/L (98-107); POTASSIUM 4.3 MMOL/L (3.6-5.0); SODIUM 142 MMOL/L (135-145)
[2020-02-26 20:24] LABS: CALCIUM 9.1 MG/DL (8.5-10.1)
--- NOTE | 2020-02-26 20:24 | Diagnostic Imaging Report ---
INDICATION: Altered mental status. EXAMINATION: Frontal chest was obtained at 8:09 p.m. FINDINGS: Heart is normal in size. Patient has had previous bypass. There is unchanged elevation of the right hemidiaphragm. There is unchanged right basilar scarring and/or atelectasis. There is no new infiltrate, pneumothorax or pleural fluid. IMPRESSION: Chronic changes and right basilar scarring or atelectasis. Unchanged elevation of right hemidiaphragm. No new consolidation or pleural fluid. Dictated by: Dictated on workstation # [id number]
[2020-02-26 20:26] LABS: GLUCOSE 128 MG/DL (70-105); TOTAL PROTEIN 7.5 GM/DL (6.4-8.2)
[2020-02-26 20:27] LABS: BILIRUBIN,TOTAL 0.4 MG/DL (0.1-1.0); CARBON DIOXIDE 22 MMOL/L (21-32)
[2020-02-26 20:29] LABS: ALKALINE PHOSPHATASE 50 U/L (40-136); CREATININE SERUM 1.07 MG/DL (0.60-1.30); GFR ESTIMATED 50
[2020-02-26 20:30] LABS: BUN/CREATININE RATIO 21
[2020-02-26] MEDS ORDERED: cefTRIAXone FOR IV USE 1,000 MG in WATER (STERILE) FOR INJECTION 10 ML IV ONE (20:30)
[2020-02-26 20:32] LABS: ALANINE AMINOTRANSFERASE 14 U/L (0-55); MAGNESIUM 2.5 MG/DL (1.6-2.4)
--- NOTE | 2020-02-26 20:47 | Diagnostic Imaging Report ---
INDICATION: Altered mental status. TECHNIQUE: Multiple contiguous axial images were obtained through the brain without the use of intravenous contrast. Auto Exposure Controls were utilized during the CT exam to meet ALARA standards for radiation dose reduction. COMPARISON: 11/09/2018. FINDINGS: There are mild diffuse atrophic changes. There are mild low-density changes in the deep white matter compatible with chronic ischemic change. There is no acute hemorrhage or mass effect. There is no subdural or epidural collection. Ventricles are normal in size for age. Calvarial windows are unremarkable. IMPRESSION: Mild atrophy and chronic change with no acute intracranial abnormality. The minimal amount of blood along the falx anteriorly on the previous study of 11/09/2018 is no longer present. Dictated by: Dictated on workstation # [id number]
[2020-02-26 20:53] LABS: TSH (THYROID ANALYZER) 2.07 UIU/ML (0.35-4.94)
[2020-02-26] MEDS ORDERED: RX-LORAZEPAM (ATIVAN) 0.5 MG TAB PPK#4 PO STA (21:20)
[2020-02-26] MEDS ORDERED: LORA-404 PO (21:20)
[2020-02-26] MEDS ORDERED: CEFD300C3 PO (21:20)
[2020-02-26 21:31] VITALS: BP 166/87
== END 2020-02-26 21:45 | disposition home or self-care (01) ==
LOC: EDUNIT# 19:32 → ER 19:33
DX: N39.0 Urinary tract infection, site not specified (principal); F03.91 Unspecified dementia, unspecified severity, with behavioral disturbance; R44.1 Visual hallucinations; I25.10 Atherosclerotic heart disease of native coronary artery without angina pectoris; E78.00 Pure hypercholesterolemia, unspecified; I10 Essential (primary) hypertension; F03.90 Unspecified dementia, unspecified severity, without behavioral disturbance, psychotic disturbance, mood disturbance, and anxiety; K21.9 Gastro-esophageal reflux disease without esophagitis; E11.40 Type 2 diabetes mellitus with diabetic neuropathy, unspecified; Z88.2 Allergy status to sulfonamides; Z86.711 Personal history of pulmonary embolism; Z95.5 Presence of coronary angioplasty implant and graft; Z95.1 Presence of aortocoronary bypass graft; Z79.4 Long term (current) use of insulin; Z79.890 Hormone replacement therapy; Z79.899 Other long term (current) drug therapy; Z79.82 Long term (current) use of aspirin; Z87.19 Personal history of other diseases of the digestive system; Z88.1 Allergy status to other antibiotic agents; Z88.0 Allergy status to penicillin
CPT/HCPCS: 70450; 71045; 80053; 80306; 81000; 83735; 84443; 85025; 87077; 87088; 93005; 93041; 99284; G0480; 36415; 80320; 87186

== ENCOUNTER → 2020-07-25 | Outpatient (CLI) | payer MEDICARE, MEDICAID ==
[~2020-07-25] MED LIST changes: +ASPI-1238 PO; -ASPI-983 PO; +CEFD300C3 PO; -CLIN300C11 PO; +CLIN300C12 PO; +ENLP2.5T PO; +LORA-404 PO; -MECL-172 PO; +MECL-173 PO; -MONT10TA26 PO; +MONT10TA97 PO
[2020-07-25 15:44] LABS: BASOPHILS # (AUTO) 0.1 10^3/uL (0.0-0.1); BASOPHILS % (AUTO) 1 % (0-10); EOSINOPHILS # (AUTO) 0.1 10^3/uL (0.0-0.3); EOSINOPHILS % (AUTO) 2 % (0-10); HEMATOCRIT 46 % (35-52); HEMOGLOBIN 14.6 g/dL (11.5-16.0); LYMPHOCYTES # (AUTO) 1.5 10^3/uL (1.0-4.0); LYMPHOCYTES % (AUTO) 19 % (12-44); MEAN CORPUSCULAR HEMOGLOBIN 29 pg (25-34); MEAN CORPUSCULAR HGB CONC 32 g/dL (32-36); MEAN CORPUSCULAR VOLUME 90 fL (80-99); MEAN PLATELET VOLUME 10.6 fL (9.0-12.2); MONOCYTES # (AUTO) 0.6 10^3/uL (0.0-1.0); MONOCYTES % (AUTO) 7 % (0-12); NEUTROPHILS # (AUTO) 5.5 10^3/uL (1.8-7.8); NEUTROPHILS % (AUTO) 71 % (42-75); PLATELET COUNT 253 10^3/uL (130-400); WHITE BLOOD COUNT 7.9 10^3/uL (4.3-11.0)
[2020-07-25 16:00] LABS: ALBUMIN 3.9 GM/DL (3.2-4.5); BILIRUBIN,TOTAL 0.2 MG/DL (0.1-1.0); CALCIUM 9.2 MG/DL (8.5-10.1); CREATININE SERUM 1.24 MG/DL (0.60-1.30); POTASSIUM 5.1 MMOL/L (3.6-5.0); TOTAL PROTEIN 7.3 GM/DL (6.4-8.2)
== END ==
LOC: LAB 15:09
PROVIDERS: ATTEND Surgery
DX: E11.621 Type 2 diabetes mellitus with foot ulcer (principal); I70.233 Atherosclerosis of native arteries of right leg with ulceration of ankle; L97.312 Non-pressure chronic ulcer of right ankle with fat layer exposed; E11.42 Type 2 diabetes mellitus with diabetic polyneuropathy; I50.9 Heart failure, unspecified; F03.90 Unspecified dementia, unspecified severity, without behavioral disturbance, psychotic disturbance, mood disturbance, and anxiety
CPT/HCPCS: 36415; 80053; 83036; 85025

== ENCOUNTER → 2020-07-25 | Outpatient (CLI) | payer MEDICARE, MEDICAID | LOC: WOUNDCARE 13:19 | PROVIDERS: ATTEND Surgery | DX: E11.621 Type 2 diabetes mellitus with foot ulcer (principal); I70.233 Atherosclerosis of native arteries of right leg with ulceration of ankle; L97.312 Non-pressure chronic ulcer of right ankle with fat layer exposed; E11.42 Type 2 diabetes mellitus with diabetic polyneuropathy; I50.9 Heart failure, unspecified; F03.90 Unspecified dementia, unspecified severity, without behavioral disturbance, psychotic disturbance, mood disturbance, and anxiety | CPT/HCPCS: 99213 ==

== ENCOUNTER → 2020-08-03 | Outpatient (CLI) | payer MEDICARE, MEDICAID | LOC: WOUNDCARE 09:02 | PROVIDERS: ATTEND Surgery | DX: I70.233 Atherosclerosis of native arteries of right leg with ulceration of ankle (principal); I96 Gangrene, not elsewhere classified; I50.9 Heart failure, unspecified; E11.42 Type 2 diabetes mellitus with diabetic polyneuropathy; E11.621 Type 2 diabetes mellitus with foot ulcer; L97.312 Non-pressure chronic ulcer of right ankle with fat layer exposed; F03.90 Unspecified dementia, unspecified severity, without behavioral disturbance, psychotic disturbance, mood disturbance, and anxiety | CPT/HCPCS: 99213 ==

== ENCOUNTER → 2020-08-16 | Outpatient (CLI) | payer MEDICARE, MEDICAID ==
[~2020-08-16] MED LIST changes: -CLIN150C17 PO; +CLIN150C18 PO
== END ==
LOC: WOUNDCARE 14:30
PROVIDERS: ATTEND Surgery
DX: I70.233 Atherosclerosis of native arteries of right leg with ulceration of ankle (principal); I96 Gangrene, not elsewhere classified; E11.621 Type 2 diabetes mellitus with foot ulcer; E11.42 Type 2 diabetes mellitus with diabetic polyneuropathy; L97.312 Non-pressure chronic ulcer of right ankle with fat layer exposed; I50.9 Heart failure, unspecified; F03.90 Unspecified dementia, unspecified severity, without behavioral disturbance, psychotic disturbance, mood disturbance, and anxiety
CPT/HCPCS: 99212

== ENCOUNTER → 2020-08-21 | Outpatient (CLI) | payer MEDICARE, MEDICAID | LOC: WOUNDCARE 11:32 | PROVIDERS: ATTEND Orthopaedic Surgery Hand Surgery | DX: I70.233 Atherosclerosis of native arteries of right leg with ulceration of ankle (principal); I96 Gangrene, not elsewhere classified; E11.42 Type 2 diabetes mellitus with diabetic polyneuropathy; E11.621 Type 2 diabetes mellitus with foot ulcer; L97.312 Non-pressure chronic ulcer of right ankle with fat layer exposed; I50.9 Heart failure, unspecified; F03.90 Unspecified dementia, unspecified severity, without behavioral disturbance, psychotic disturbance, mood disturbance, and anxiety; R60.0 Localized edema | CPT/HCPCS: 99212 ==

== ENCOUNTER → 2020-08-27 | Outpatient (CLI) | payer MEDICARE, MEDICAID | LOC: WOUNDCARE 14:36 | PROVIDERS: ATTEND Surgery | DX: I70.233 Atherosclerosis of native arteries of right leg with ulceration of ankle (principal); I96 Gangrene, not elsewhere classified; E11.621 Type 2 diabetes mellitus with foot ulcer; E11.42 Type 2 diabetes mellitus with diabetic polyneuropathy; L97.312 Non-pressure chronic ulcer of right ankle with fat layer exposed; I50.9 Heart failure, unspecified; F03.90 Unspecified dementia, unspecified severity, without behavioral disturbance, psychotic disturbance, mood disturbance, and anxiety | CPT/HCPCS: 99212 ==

== ENCOUNTER → 2020-09-06 | Outpatient (CLI) | payer MEDICARE, MEDICAID ==
[~2020-09-06] MED LIST changes: -CIPR500T4 PO; +CIPR500T5 PO; -ISOS30TA3 PO; +ISOS30TA82 PO; +MONT10TA32 PO; -MONT10TA97 PO
== END ==
LOC: WOUNDCARE 11:06
PROVIDERS: ATTEND Surgery
DX: I70.232 Atherosclerosis of native arteries of right leg with ulceration of calf (principal); E11.621 Type 2 diabetes mellitus with foot ulcer; E11.42 Type 2 diabetes mellitus with diabetic polyneuropathy; I50.9 Heart failure, unspecified; F03.90 Unspecified dementia, unspecified severity, without behavioral disturbance, psychotic disturbance, mood disturbance, and anxiety; L97.312 Non-pressure chronic ulcer of right ankle with fat layer exposed
CPT/HCPCS: 99212

== ENCOUNTER → 2020-09-17 | Outpatient (CLI) | payer MEDICARE, MEDICAID | LOC: WOUNDCARE 13:19 | PROVIDERS: ATTEND Surgery | DX: I70.233 Atherosclerosis of native arteries of right leg with ulceration of ankle (principal); I96 Gangrene, not elsewhere classified; E11.621 Type 2 diabetes mellitus with foot ulcer; E11.42 Type 2 diabetes mellitus with diabetic polyneuropathy; L97.312 Non-pressure chronic ulcer of right ankle with fat layer exposed; I50.9 Heart failure, unspecified; F03.90 Unspecified dementia, unspecified severity, without behavioral disturbance, psychotic disturbance, mood disturbance, and anxiety | CPT/HCPCS: 11042; A6260; G0463 ==

== ENCOUNTER → 2020-09-24 | Outpatient (CLI) | payer MEDICARE, MEDICAID | LOC: WOUNDCARE 14:34 | PROVIDERS: ATTEND Surgery | DX: I70.233 Atherosclerosis of native arteries of right leg with ulceration of ankle (principal); E11.621 Type 2 diabetes mellitus with foot ulcer; L97.312 Non-pressure chronic ulcer of right ankle with fat layer exposed; E11.42 Type 2 diabetes mellitus with diabetic polyneuropathy; I50.9 Heart failure, unspecified; F03.90 Unspecified dementia, unspecified severity, without behavioral disturbance, psychotic disturbance, mood disturbance, and anxiety; E11.52 Type 2 diabetes mellitus with diabetic peripheral angiopathy with gangrene | CPT/HCPCS: 11042; G0463 ==

== ENCOUNTER → 2020-10-01 | Outpatient (CLI) | payer MEDICARE, MEDICAID ==
[~2020-10-01] MED LIST changes: -MECL-173 PO; +MECL-215 PO
== END ==
LOC: WOUNDCARE 14:37
PROVIDERS: ATTEND Surgery
DX: I70.233 Atherosclerosis of native arteries of right leg with ulceration of ankle (principal); E11.621 Type 2 diabetes mellitus with foot ulcer; L97.312 Non-pressure chronic ulcer of right ankle with fat layer exposed; E11.42 Type 2 diabetes mellitus with diabetic polyneuropathy; I50.9 Heart failure, unspecified; F03.90 Unspecified dementia, unspecified severity, without behavioral disturbance, psychotic disturbance, mood disturbance, and anxiety; E11.52 Type 2 diabetes mellitus with diabetic peripheral angiopathy with gangrene
CPT/HCPCS: 11042; G0463

== ENCOUNTER → 2020-10-08 | Outpatient (CLI) | payer MEDICARE, MEDICAID | LOC: WOUNDCARE 14:35 | PROVIDERS: ATTEND Surgery | DX: I70.233 Atherosclerosis of native arteries of right leg with ulceration of ankle (principal); I96 Gangrene, not elsewhere classified; L97.312 Non-pressure chronic ulcer of right ankle with fat layer exposed; E11.621 Type 2 diabetes mellitus with foot ulcer; E11.42 Type 2 diabetes mellitus with diabetic polyneuropathy; I50.9 Heart failure, unspecified; F03.90 Unspecified dementia, unspecified severity, without behavioral disturbance, psychotic disturbance, mood disturbance, and anxiety | CPT/HCPCS: 11042; G0463 ==

== ENCOUNTER → 2020-10-15 | Outpatient (CLI) | payer MEDICARE, MEDICAID | LOC: WOUNDCARE 14:35 | PROVIDERS: ATTEND Surgery | DX: I70.233 Atherosclerosis of native arteries of right leg with ulceration of ankle (principal); I96 Gangrene, not elsewhere classified; E11.621 Type 2 diabetes mellitus with foot ulcer; L97.312 Non-pressure chronic ulcer of right ankle with fat layer exposed; E11.42 Type 2 diabetes mellitus with diabetic polyneuropathy; I50.9 Heart failure, unspecified; F03.90 Unspecified dementia, unspecified severity, without behavioral disturbance, psychotic disturbance, mood disturbance, and anxiety | CPT/HCPCS: A6197; G0463; 99212 ==

== ENCOUNTER → 2020-10-22 | Outpatient (CLI) | payer MEDICARE, MEDICAID | LOC: WOUNDCARE 14:33 | PROVIDERS: ATTEND Surgery | DX: I70.233 Atherosclerosis of native arteries of right leg with ulceration of ankle (principal); I96 Gangrene, not elsewhere classified; E11.621 Type 2 diabetes mellitus with foot ulcer; L97.312 Non-pressure chronic ulcer of right ankle with fat layer exposed; E11.42 Type 2 diabetes mellitus with diabetic polyneuropathy; I50.9 Heart failure, unspecified; F03.90 Unspecified dementia, unspecified severity, without behavioral disturbance, psychotic disturbance, mood disturbance, and anxiety | CPT/HCPCS: 99212 ==

== ENCOUNTER → 2020-10-29 | Outpatient (CLI) | payer MEDICARE, MEDICAID | LOC: WOUNDCARE 14:31 | PROVIDERS: ATTEND Surgery | DX: I70.233 Atherosclerosis of native arteries of right leg with ulceration of ankle (principal); E11.621 Type 2 diabetes mellitus with foot ulcer; L97.312 Non-pressure chronic ulcer of right ankle with fat layer exposed; E11.42 Type 2 diabetes mellitus with diabetic polyneuropathy; I50.9 Heart failure, unspecified; F03.90 Unspecified dementia, unspecified severity, without behavioral disturbance, psychotic disturbance, mood disturbance, and anxiety | CPT/HCPCS: 99212 ==

== ENCOUNTER → 2020-11-05 | Outpatient (CLI) | payer MEDICARE, MEDICAID | LOC: WOUNDCARE 14:39 | PROVIDERS: ATTEND Surgery | DX: E11.52 Type 2 diabetes mellitus with diabetic peripheral angiopathy with gangrene (principal); E11.621 Type 2 diabetes mellitus with foot ulcer; E11.622 Type 2 diabetes mellitus with other skin ulcer; I70.261 Atherosclerosis of native arteries of extremities with gangrene, right leg; L97.312 Non-pressure chronic ulcer of right ankle with fat layer exposed; I50.9 Heart failure, unspecified; F03.90 Unspecified dementia, unspecified severity, without behavioral disturbance, psychotic disturbance, mood disturbance, and anxiety | CPT/HCPCS: 99212 ==

== ENCOUNTER → 2020-11-12 | Outpatient (CLI) | payer MEDICARE, MEDICAID | LOC: WOUNDCARE 14:32 | PROVIDERS: ATTEND Surgery | DX: I70.233 Atherosclerosis of native arteries of right leg with ulceration of ankle (principal); L97.312 Non-pressure chronic ulcer of right ankle with fat layer exposed; E11.621 Type 2 diabetes mellitus with foot ulcer; E11.42 Type 2 diabetes mellitus with diabetic polyneuropathy; I50.9 Heart failure, unspecified; I96 Gangrene, not elsewhere classified; F03.90 Unspecified dementia, unspecified severity, without behavioral disturbance, psychotic disturbance, mood disturbance, and anxiety | CPT/HCPCS: 11042; G0463 ==

== ENCOUNTER 2020-11-19 20:19 | Observation (INO) | payer MEDICARE, MEDICAID ==
[~2020-11-19] VITALS: Ht 160 cm; Wt 70.8 kg
[2020-11-19 20:35] LABS: BASOPHILS # (AUTO) 0.1 10^3/uL (0.0-0.1); BASOPHILS % (AUTO) 1 % (0-10); EOSINOPHILS # (AUTO) 0.2 10^3/uL (0.0-0.3); EOSINOPHILS % (AUTO) 3 % (0-10); HEMATOCRIT 43 % (35-52); HEMOGLOBIN 13.9 g/dL (11.5-16.0); LYMPHOCYTES # (AUTO) 1.3 10^3/uL (1.0-4.0); LYMPHOCYTES % (AUTO) 19 % (12-44); MEAN CORPUSCULAR HEMOGLOBIN 28 pg (25-34); MEAN CORPUSCULAR HGB CONC 32 g/dL (32-36); MEAN CORPUSCULAR VOLUME 88 fL (80-99); MEAN PLATELET VOLUME 10.9 fL (9.0-12.2); MONOCYTES # (AUTO) 0.7 10^3/uL (0.0-1.0); MONOCYTES % (AUTO) 11 % (0-12); NEUTROPHILS # (AUTO) 4.5 10^3/uL (1.8-7.8); NEUTROPHILS % (AUTO) 66 % (42-75); PLATELET COUNT 204 10^3/uL (130-400); WHITE BLOOD COUNT 6.8 10^3/uL (4.3-11.0)
--- NOTE | 2020-11-19 20:51 | ED General ---
General Chief Complaint: Neurological Problems Stated Complaint: WEAKNESS Nursing Triage Note: PT TO ROOM 04 VIA EMS WITH C/O WEAKNESS. PT'S FAMILY WANTED PT TRANSPORTED AND SEEN IN ED. Nursing Sepsis Screen: No Definite Risk Source of Information: Patient Exam Limitations: No Limitations History of Present Illness Date Seen by Provider: Nov 19, 2020 Time Seen by Provider: 20:34 Initial Comments Patient presents ER by EMS from home with chief complaint that her sister/one of her caregivers had a verbal argument with her and called her stupid and she has been confused lately and wanted her evaluated. Patient states she lives at home with her who typically helps take care of her with her dementia however he recently had to be put in the hospital at [place] and she has been relying more on her children and her sister. She has she mistook her sister as not being her sister and that frustrated her. She says she is also on her second round of treatment for a UTI. She has had no shortness of breath cough fever chills chest pain nausea vomiting diarrhea or constipation. Primary care with Dr. Matta. She is on Seroquel. The patient's daughter Halina arrived shortly after the patient and we had a long conversation revealing that the patient's did have a stroke last weekend and they have been going back and forth to [place] to see him every day and he also has been having sundowner syndrome. The patient is known to have Lewy body dementia with sundowning and has been increasing the Seroquel steadily under the care of her psychiatrist Vickie and her primary care [facility] She has not had an inpatient [facility] stay. Patient is on 150 mg Seroquel in the morning, 100 mg at 5:00 and in the evening 200 mg to help her sleep because she is been having hallucinations and Doppelganger syndrome. While her daughter was doing the dressing change for her chronic pressure ulcer on her right heel which is what she is on the antibiotic for the patient became agitated and pulled her foot away and started hitting it against the couch. Her daughter pulled the foot back so she could finish wrapping it and then the patient became explosive stating that she is not her daughter and does not know who she is and that she is an impostor. It was suggested that the patient should go to a longterm however the daughter has been staying for the past 2 months with her mother/patient to care for her and her father. Allergies and Home Medications Allergies Coded Allergies: sulfamethoxazole (Unverified Allergy, Severe, ANAPHYLAXIS, 07/05/10) pt states severe resp distress after taking bactrim ds trimethoprim (Unverified Allergy, Severe, ANAPHYLAXIS, 07/05/10) pt states severe resp distress after taking bactrim ds ciprofloxacin (Verified Allergy, Intermediate, BLOOD SUGAR BOTTOM OUT, 06/24/17) Sulfa (Sulfonamide Antibiotics) (Unverified Allergy, Mild, 07/05/10) Penicillins (Verified Allergy, Unknown, 12/14/05) protamine (Verified Allergy, Unknown, 02/07/08) Quinolones (Verified Adverse Reaction, Severe, HYPOGLYCEMIA, 05/28/17) Home Medications Aspirin 81 Mg Tablet.dr, 81 MG PO HS, (Reported) Carvedilol 6.25 Mg Tablet, 3.125 MG PO BID, (Reported) TAKES 1/2 (6.25MG) TABLETS Cefdinir 300 Mg Capsule, 300 MG PO BID Prescribed by: SALOMÓN ZARATE on 02/26/202119 Citalopram Hydrobromide 20 Mg Tablet, 30 MG PO DAILY, (Reported) TAKES 1 & 1/2 (20MG) TABLET Clopidogrel Bisulfate 75 Mg Tablet, 75 MG PO DAILY, (Reported) Docusate Sodium 100 Mg Capsule, 100-300 MG PO BID PRN for CONSTIPATION-1ST LINE, (Reported) Doxycycline Hyclate 100 Mg Tablet, 100 MG PO BID Prescribed by: CHITO VIDAL on 07/29/17 1519 Fenofibrate Nanocrystallized 48 Mg Tablet, 48 MG PO HS, (Reported) Furosemide 40 Mg Tablet, 40 MG PO DAILY PRN for SWELLING, (Reported) Insulin Aspart 300 Units/3 Ml Solution, 5 UNITS SQ WITH BREAKFAST, (Reported) Insulin Degludec 200 Unit/1 Ml Insuln.pen, 18 UNITS SC HS, (Reported) Levothyroxine Sodium 25 Mcg Tablet, 25 MCG PO DAILY, (Reported) Lorazepam 0.5 Mg Tablet, 0.5 MG PO TID PRN for ANXIETY Prescribed by: SALOMÓN ZARATE on 02/26/202119 Meclizine HCl 12.5 Mg Tablet, 12.5 MG PO BID PRN for DIZZINESS, (Reported) [place] 3 Polyunsat Fatty Acids 1,000 Mg Cap, 6,000 MG PO DAILY, (Reported) Rosuvastatin Calcium 10 Mg Tablet, 10 MG PO HS, (Reported) Tramadol HCl 50 Mg Tablet, 50 MG PO BID PRN for PAIN-MODERATE, (Reported) Vorapaxar Sulfate 2.08 Mg Tablet, 2.08 MG PO HS, (Reported) Patient Home Medication List Home Medication List Reviewed: Yes Review of Systems Review of Systems Constitutional: No chills, No fever, No malaise EENTM: No ear discharge, No hearing loss Respiratory: No cough, No short of breath Cardiovascular: No edema, No Hx of Intervention, No palpitations Gastrointestinal: No abdominal pain, No nausea, No vomiting Genitourinary: No discharge, No dysuria Musculoskeletal: No back pain, No joint pain All Other Systems Reviewed Negative Unless Noted: Yes Past Zfchzsg-Xvffhv-Qlxogb Hx Patient Social History Alcohol Use: Denies Use Smoking Status: Never a Smoker 2nd Hand Smoke Exposure: No Recent Infectious Disease Expo: No Recent Hopitalizations: No Immunizations Up To Date Tetanus Booster (TDap): Unknown PED Vaccines UTD: Yes Date of Pneumonia Vaccine: Jun 15, 2014 Date of Influenza Vaccine: Apr 23, 2017 Seasonal Allergies Seasonal Allergies: No Past Medical History Surgeries: Yes (4 VESSEL CABG + CARDIAC AND R LEG STENTS; TOE AMPUTATION) Amputation, CABG, Coronary Stent, Gallbladder, Hysterectomy, Vascular Surgery Respiratory: Yes Pulmonary Embolism Currently Using CPAP: No Currently Using BIPAP: Yes Cardiac: Yes (4 VESSEL CABG AND CARDIAC AND R LEG STENTS; LBBB) Coronary Artery Disease, High Cholesterol, Hypertension, Peripheral Vascular Neurological: Yes (INTRACRANIAL BLEED DUE TO TRAUMA 10/2018--NO SURGERY) Dementia, Neuropathy Reproductive Disorders: 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: Menopausal Genitourinary: Yes Bladder Infection Gastrointestinal: Yes Gastroesophageal Reflux, Ulcer Musculoskeletal: Yes (amputation toes) Arthritis Endocrine: Yes Diabetes, Insulin dep HEENT: No Loss of Vision: Denies Hearing Impairment: Hard of Hearing Cancer: No Psychosocial: Yes (DEMENTIA WITH BEHAVIOR DISTURBANCE--HALLUCINATIONS + AGITATION/AGGRESSION) Integumentary: No Blood Disorders: No Family Medical History No Pertinent Family Hx Physical Exam Vital Signs Vital Signs - First Documented 11/19/20 20:20 Temp 36.3 Pulse 76 Resp 17 B/P (MAP) 146/77 (100) O2 Delivery Room Air Capillary Refill : Less Than 3 Seconds Height, Weight, BMI Height: 5'3.00" Weight: 172lbs. 0.0oz. 78.305266uj; 29.00 BMI Method:Stated General Appearance: No Apparent Distress, WD/WN Eyes: Bilateral Eye Normal Inspection, Bilateral Eye PERRL, Bilateral Eye EOMI HEENT: PERRL/EOMI, TMs Normal, Normal ENT Inspection; No Moist Mucous Membranes (Mildly dry) Neck: Full Range of Motion, Normal Inspection Respiratory: Lungs Clear, Normal Breath Sounds, No Accessory Muscle Use, No Respiratory Distress Cardiovascular: Regular Rate, Rhythm, No Edema, Normal Peripheral Pulses Gastrointestinal: Normal Bowel Sounds, No Organomegaly, Non Tender, Soft Extremity: Normal Capillary Refill, Normal Inspection, Non Tender, No Pedal Edema Neurologic/Psychiatric: Alert, Normal Mood/Affect, Other (Oriented to person time but not place and questionable situation) Skin: Normal Color, Warm/Dry Progress/Results/Core Measures Suspected Sepsis Recent Fever Within 48 Hours: No Infection Criteria Present: None New/Unexplained Altered Menta: No Sepsis Screen: No Definite Risk SIRS Temperature: Pulse: 76 Respiratory Rate: 17 Laboratory Tests 11/19/20 20:27: White Blood Count 6.8 Blood Pressure 146 /77 Mean: 100 Laboratory Tests 11/19/20 20:27: Creatinine 1.45H, Platelet Count 204, Total Bilirubin 0.2 Results/Orders Lab Results Laboratory Tests Test 11/19/20 20:27 Range/Units White Blood Count 6.8 4.3-11.0 10^3/uL Red Blood Count 4.91 3.80-5.11 10^6/uL Hemoglobin 13.9 11.5-16.0 g/dL Hematocrit 43 35-52 % Mean Corpuscular Volume 88 80-99 fL Mean Corpuscular Hemoglobin 28 25-34 pg Mean Corpuscular Hemoglobin Concent 32 32-36 g/dL Red Cell Distribution Width 13.1 10.0-14.5 % Platelet Count 204 130-400 10^3/uL Mean Platelet Volume 10.9 9.0-12.2 fL Immature Granulocyte % (Auto) 0 % Neutrophils (%) (Auto) 66 42-75 % Lymphocytes (%) (Auto) 19 12-44 % Monocytes (%) (Auto) 11 0-12 % Eosinophils (%) (Auto) 3 0-10 % Basophils (%) (Auto) 1 0-10 % Neutrophils # (Auto) 4.5 1.8-7.8 10^3/uL Lymphocytes # (Auto) 1.3 1.0-4.0 10^3/uL Monocytes # (Auto) 0.7 0.0-1.0 10^3/uL Eosinophils # (Auto) 0.2 0.0-0.3 10^3/uL Basophils # (Auto) 0.1 0.0-0.1 10^3/uL Immature Granulocyte # (Auto) 0.0 0.0-0.1 10^3/uL Sodium Level 140 135-145 MMOL/L Potassium Level 4.3 3.6-5.0 MMOL/L Chloride Level 106 98-107 MMOL/L Carbon Dioxide Level 22 21-32 MMOL/L Anion Gap 12 5-14 MMOL/L Blood Urea Nitrogen 33 H 7-18 MG/DL Creatinine 1.45 H 0.60-1.30 MG/DL Estimat Glomerular Filtration Rate 35 BUN/Creatinine Ratio 23 Glucose Level 341 H 70-105 MG/DL Calcium Level 9.1 8.5-10.1 MG/DL Corrected Calcium 9.3 8.5-10.1 MG/DL Total Bilirubin 0.2 0.1-1.0 MG/DL Aspartate Amino Transf (AST/SGOT) 20 5-34 U/L Alanine Aminotransferase (ALT/SGPT) 18 0-55 U/L Alkaline Phosphatase 57 40-136 U/L C-Reactive Protein High Sensitivity 0.45 0.00-0.50 MG/DL Total Protein 6.7 6.4-8.2 GM/DL Albumin 3.7 3.2-4.5 GM/DL My Orders Orders - TERE HORVTAH Ua Culture If Indicated (11/19/20 20:30) Cbc With Automated Diff (11/19/20 20:30) Comprehensive Metabolic Panel (11/19/20 20:30) Hs C Reactive Protein (11/19/20 20:30) Medications Given in ED Vital Signs/I&O 11/19/20 20:20 Temp 36.3 Pulse 76 Resp 17 B/P (MAP) 146/77 (100) O2 Delivery Room Air Capillary Refill : Less Than 3 Seconds Blood Pressure Mean: 100 Progress Note #1: Time: 21:28 Progress Note Sundowning, Lewy body dementia, hallucinations and delirium. We are doing some labs to rule out infectious or other sources of her symptoms. Her blood sugar is significantly elevated at 341 which the daughter says is unusual. 10 units of regular insulin were given subcutaneous. The patient also get her Tresiba and her evening 200 mg Seroquel prior to coming in. The daughter apparently called 911 because the patient was becoming belligerent. Patient is insistent even now in the ER but this is not her daughter and rather is an impostor however her anger is under control and the patient is not belligerent. She is cooperative with care. We have discussed a stay in the [facility] and daughter is in agreement with this. Progress Note #2: Time: 22:00 Progress Note Given the patient's current state of delirium and inability to orient to others, time or place we have discussed our plan for placement observation to manage her hyperglycemia and then work on getting her into [facility] maybe tomorrow. Her daughter Halina, power of deputy attorney general agrees with this plan. The patient at this time does not have capacity to make decisions. However we did discuss extensively with the patient and daughter at bedside and she was agreeable to staying tonight and going to inpatient [facility] tomorrow. Departure Communication (Admissions) Time/Spoke to Admitting Phy: 21:30 Discussed the case with Dr. Dean and she agrees to observe the patient for hyperglycemia with consultation to director social welfare to work on a [facility] transfer tomorrow. Impression Primary Impression: Delirium Additional Impressions: Hyperglycemia due to diabetes mellitus Dementia Qualified Codes: G31.83 - Dementia with Lewy bodies; F02.81 - Dementia in other diseases classified elsewhere with behavioral disturbance Disposition: ADMITTED INPATIENT Condition: Stable Admissions Decision to Admit Reason: Admit from ER (General) Decision to Admit/Date: Nov 19, 2020 Time/Decision to Admit Time: 21:00 Departure-Patient Inst. Referrals: [facility]/ (PCP) Primary Care Physician ANNA HILL (Family) Primary Care Physician TERE HORVATH Nov 19, 2020 20:50
[2020-11-19 20:53] LABS: ALBUMIN 3.7 GM/DL (3.2-4.5); BILIRUBIN,TOTAL 0.2 MG/DL (0.1-1.0); CALCIUM 9.1 MG/DL (8.5-10.1); CREATININE SERUM 1.45 MG/DL (0.60-1.30); POTASSIUM 4.3 MMOL/L (3.6-5.0); TOTAL PROTEIN 6.7 GM/DL (6.4-8.2)
[2020-11-19 21:13] LABS: BILIRUBIN,URINE NEGATIVE (NEGATIVE); CLARITY,URINE CLEAR; COLOR,URINE YELLOW; GLUCOSE, URINE (UA) 3+ (NEGATIVE); KETONES,URINE NEGATIVE (NEGATIVE); LEUKOCYTE ESTERASE ,URINE NEGATIVE (NEGATIVE); NITRITE,URINE NEGATIVE (NEGATIVE); PROTEIN,URINE NEGATIVE (NEGATIVE)
[2020-11-19] MEDS ORDERED: inSUlin (REGULAR) HUMAN 1 UNIT/0.01 ML (CHARGE PER UNIT) SC ONE (21:15)
[2020-11-19 21:28] LABS: AMORPHOUS SEDIMENT,UR RARE AMOR URATES /LPF; BACTERIA,URINE NEGATIVE /HPF; RBC,URINE 0-2 /HPF; WBC,URINE RARE /HPF
[2020-11-19 23:03] VITALS: BP 124/73
[2020-11-19] MEDS ORDERED: ZIPRASIDONE 20 MG INJ (GEODON) VIAL IM PRN (23:15)
[2020-11-19] MEDS ORDERED: ZIPRASIDONE 20 MG (GEODON) CAP PO PRN (23:15)
[2020-11-19] MEDS ORDERED: LORazepam INJ 2 MG/ML (ATIVAN) VIAL IVP PRN (23:30)
[2020-11-19] MEDS ORDERED: ACETAMINOPHEN 325 MG TABLET PO PRN (23:30)
[2020-11-20 03:40] VITALS: BP 118/66
[2020-11-20] MEDS: inSUlin ASPART (NovoLOG) 1 UNIT/0.01 ML (CHARGE PER UNIT) SC SCH ×4 (05:32→21:28)
[2020-11-20 07:15] VITALS: BP 162/97
[2020-11-20] MEDS: CEFDINIR 300 MG (OMNICEF) CAP PO SCH ×2 (08:31→20:33)
[2020-11-20 08:53] LABS: CALCIUM 9.1 MG/DL (8.5-10.1); CREATININE SERUM 1.08 MG/DL (0.60-1.30); POTASSIUM 4.1 MMOL/L (3.6-5.0)
[2020-11-20] MEDS ORDERED: QUEtiapine 200 MG (SEROquel) TAB IMMEDIATE RELEASE PO SCH (09:00)
--- NOTE | 2020-11-20 11:22 | History & Physical ---
NINA ARREOLA,MED STUDENT 11/20/20 1122: HPI History of Present Illness: She reports that she was brought in by two police officers, because someone who wasn't her daughter convinced them to bring her under. She reports that someone was treating her heel wound that wasn't her daughter, and she became upset. She reports the person said that they were her daughter, but she didn't believe them. She intermittently says her was home at the time this happened, and then later would say that he is at the hospital due to a stroke. She reports she doesn't have any medical needs currently, but needs to be able to access a phone to call her or friends. However, she reports feeling tired the last few days due to the stress of her having a stroke. Source: patient Exam Limitations: no limitations Time Seen by Provider: 09:45 Attending Physician Sherine Dean MD [facility] Consult Date of Admission Nov 19, 2020 at 21:00 Home Medications Home Medications Reviewed patient Home Medication Reconciliation performed by pharmacy medication reconciliations endoscopy technician and/or nursing. Patients Allergies have been reviewed. Allergies Coded Allergies: sulfamethoxazole (Unverified Allergy, Severe, ANAPHYLAXIS, 07/05/10) pt states severe resp distress after taking bactrim ds trimethoprim (Unverified Allergy, Severe, ANAPHYLAXIS, 07/05/10) pt states severe resp distress after taking bactrim ds ciprofloxacin (Verified Allergy, Intermediate, BLOOD SUGAR BOTTOM OUT, 06/24/17) Sulfa (Sulfonamide Antibiotics) (Unverified Allergy, Mild, 07/05/10) Penicillins (Verified Allergy, Unknown, 12/14/05) protamine (Verified Allergy, Unknown, 02/07/08) Quinolones (Verified Adverse Reaction, Severe, HYPOGLYCEMIA, 05/28/17) GKE-Pryvja-Nespbq Hx Patient Social History Marrital Status: Employed/Student: retired Smoking Status: Never a Smoker 2nd Hand Smoke Exposure: No Recent Hopitalizations: No Alcohol Use?: No Have you traveled recently?: No Immunizations Up To Date Tetanus Booster (TDap): Unknown Date of Pneumonia Vaccine: Jun 15, 2014 Date of Influenza Vaccine: Apr 26, 2020 Past Medical History Dementia 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 Coronary Artery Disease (s/p 4 vessel CABG) Peripheral Artery Disease DVT Pulmonary Embolism Heel Ulcer/Wound Orthostatic Hypotension Hyperlipidemia Pelvic Pain+bleeding Bronchitis/Sinusitis Pyelonephritis Family Medical History Significant Family History: No Pertinent Family Hx Review of Systems ([facility]) Constitutional: malaise, weakness EENTM: No hearing loss, No vision loss Respiratory: No cough, No short of breath Cardiovascular: No chest pain, No edema, No palpitations Gastrointestinal: No abdominal pain, No loss of appetite, No nausea Genitourinary: No dysuria Musculoskeletal: No joint pain, No muscle pain Skin: other (R heel ulcer) Psychiatric/Neurological: Denies Headache, Denies Paresthesia Reviewed Test Results Reviewed Test Results Lab Laboratory Tests Test 11/19/20 20:27 11/19/20 21:07 11/20/20 05:30 11/20/20 08:23 Range/Units White Blood Count 6.8 4.3-11.0 10^3/uL Red Blood Count 4.91 3.80-5.11 10^6/uL Hemoglobin 13.9 11.5-16.0 g/dL Hematocrit 43 35-52 % Mean Corpuscular Volume 88 80-99 fL Mean Corpuscular Hemoglobin 28 25-34 pg Mean Corpuscular Hemoglobin Concent 32 32-36 g/dL Red Cell Distribution Width 13.1 10.0-14.5 % Platelet Count 204 130-400 10^3/uL Mean Platelet Volume 10.9 9.0-12.2 fL Immature Granulocyte % (Auto) 0 % Neutrophils (%) (Auto) 66 42-75 % Lymphocytes (%) (Auto) 19 12-44 % Monocytes (%) (Auto) 11 0-12 % Eosinophils (%) (Auto) 3 0-10 % Basophils (%) (Auto) 1 0-10 % Neutrophils # (Auto) 4.5 1.8-7.8 10^3/uL Lymphocytes # (Auto) 1.3 1.0-4.0 10^3/uL Monocytes # (Auto) 0.7 0.0-1.0 10^3/uL Eosinophils # (Auto) 0.2 0.0-0.3 10^3/uL Basophils # (Auto) 0.1 0.0-0.1 10^3/uL Immature Granulocyte # (Auto) 0.0 0.0-0.1 10^3/uL Sodium Level 140 142 135-145 MMOL/L Potassium Level 4.3 4.1 3.6-5.0 MMOL/L Chloride Level 106 107 98-107 MMOL/L Carbon Dioxide Level 22 26 21-32 MMOL/L Anion Gap 12 9 5-14 MMOL/L Blood Urea Nitrogen 33 H 30 H 7-18 MG/DL Creatinine 1.45 H 1.08 0.60-1.30 MG/DL Estimat Glomerular Filtration Rate 35 49 BUN/Creatinine Ratio 23 28 Glucose Level 341 H 83 70-105 MG/DL Calcium Level 9.1 9.1 8.5-10.1 MG/DL Corrected Calcium 9.3 8.5-10.1 MG/DL Total Bilirubin 0.2 0.1-1.0 MG/DL Aspartate Amino Transf (AST/SGOT) 20 5-34 U/L Alanine Aminotransferase (ALT/SGPT) 18 0-55 U/L Alkaline Phosphatase 57 40-136 U/L C-Reactive Protein High Sensitivity 0.45 0.00-0.50 MG/DL Total Protein 6.7 6.4-8.2 GM/DL Albumin 3.7 3.2-4.5 GM/DL Urine Color YELLOW Urine Clarity CLEAR Urine pH 6.0 5-9 Urine Specific [place] 1.020 1.016-1.022 Urine Protein NEGATIVE NEGATIVE Urine Glucose (UA) 3+ H NEGATIVE Urine Ketones NEGATIVE NEGATIVE Urine Nitrite NEGATIVE NEGATIVE Urine Bilirubin NEGATIVE NEGATIVE Urine Urobilinogen 0.2 < = 1.0 MG/DL Urine Leukocyte Esterase NEGATIVE NEGATIVE Urine RBC (Auto) NEGATIVE NEGATIVE Urine RBC 0-2 /HPF Urine WBC RARE /HPF Urine Crystals PRESENT H /LPF Urine Amorphous Sediment RARE LISSET URATES H /LPF Urine Bacteria NEGATIVE /HPF Urine Casts NONE /LPF Urine Mucus NEGATIVE /LPF Urine Culture Indicated NO Glucometer 102 70-110 MG/DL Test 11/20/20 11:28 Range/Units Glucometer 137 H 70-110 MG/DL Physical Exam-([facility]) Physical Exam Vital Signs VS - Last 72 Hours, by Label 11/19/20 11/19/20 11/19/20 11/19/20 20:20 23:00 23:03 23:03 Temp 36.3 36.1 Pulse 76 74 71 Resp 17 16 18 B/P (MAP) 146/77 (100) 106/57 124/73 (90) Pulse Ox 96 93 O2 Delivery Room Air Room Air Room Air 11/20/20 11/20/20 11/20/20 03:40 07:15 08:00 Temp 36.2 36.0 Pulse 73 63 Resp 20 20 B/P (MAP) 118/66 (83) 162/97 (118) Pulse Ox 96 97 O2 Delivery Room Air Room Air Room Air Capillary Refill : Less Than 3 Seconds General Appearance: no apparent distress Eyes: Bilateral Eye Normal Inspection Neck: full range of motion, normal inspection Respiratory: lungs clear, normal breath sounds Cardiovascular: no edema, no JVD Gastrointestinal: normal bowel sounds Extremities: normal range of motion Neurologic/Psychiatric: alert, other (oriented to person/setting, intermittently oriented to month/year) Skin: other Assessment/Plan Assessment/Plan Admission Dx Hyperglycemia, Delirium, Dementia Assessment & Plan Patient presented with reported decompensation from her baseline, which is complicated by dementia. No clear infectious or metabolic cause of any increased confusion or agitation at present. She presented with hyperglycemia, which has resolved. Creatinine elevated, however patient is near historical baseline. Potential causes are disease progression of dementia or acute delirium. She would benefit from a [facility] stay to help with medication optimization. Copy Copies To 1: SHERINE DEAN MD, BETHANY N MD 11/20/20 1908: Home Medications Allergies Coded Allergies: sulfamethoxazole (Unverified Allergy, Severe, ANAPHYLAXIS, 07/05/10) pt states severe resp distress after taking bactrim ds trimethoprim (Unverified Allergy, Severe, ANAPHYLAXIS, 07/05/10) pt states severe resp distress after taking bactrim ds ciprofloxacin (Verified Allergy, Intermediate, BLOOD SUGAR BOTTOM OUT, 06/24/17) Sulfa (Sulfonamide Antibiotics) (Unverified Allergy, Mild, 07/05/10) Penicillins (Verified Allergy, Unknown, 12/14/05) protamine (Verified Allergy, Unknown, 02/07/08) Quinolones (Verified Adverse Reaction, Severe, HYPOGLYCEMIA, 05/28/17) Assessment/Plan Assessment/Plan Admission Status: Observation Copy Copies To 1: SHERINE DEAN MD Supervisory-Addendum Brief Verification & Attestation Participated in pt care: history, MDM, physical Personally performed: exam, history, MDM Care discussed with: Medical Student Procedures: n/a I personally saw and examined patient today and did my own history and exam, agree with documentation by medical student. Will see if we can arrange admission to [facility]. NINA ARREOLA,MED STUDENT Nov 20, 2020 11:22 SHERINE DEAN MD Nov 20, 2020 19:08
[2020-11-20 11:25] VITALS: BP 145/65
[2020-11-20] MEDS ORDERED: HYDR-700 PO (14:03)
[2020-11-20] MEDS ORDERED: QUET100T33 PO ×2 (14:03)
[2020-11-20] MEDS ORDERED: MEMA1CAP4 PO (14:03)
[2020-11-20] MEDS ORDERED: POLY17PO6 PO (14:03)
[2020-11-20] MEDS ORDERED: GABA300C PO (14:03)
[2020-11-20] MEDS ORDERED: CEFD300C3 PO (14:03)
[2020-11-20] MEDS ORDERED: SERT-413 PO (14:03)
[2020-11-20] MEDS ORDERED: RIVA2.5T5 PO (14:03)
[2020-11-20] MEDS ORDERED: LEVO50TA6 PO (14:03)
[2020-11-20] MEDS ORDERED: DAPA10TA PO (14:03)
[2020-11-20] MEDS ORDERED: TRAM50TA3 PO (14:03)
[2020-11-20] MEDS ORDERED: QUET200T29 PO (14:03)
[2020-11-20] MEDS ORDERED: CARV3.122 PO (14:03)
[2020-11-20 16:00] VITALS: BP 180/86
[2020-11-20] MEDS ORDERED: NON-FORMULARY MEDICATION 1 EA EA (Hydroxyzine HCl 25 MG) PO PRN (16:15)
[2020-11-20] MEDS ORDERED: polyethylene glycoL POWDER 17 GM (MIRALAX) PACK PO PRN (16:15)
[2020-11-20] MEDS: hydrOXYzine (VISTARIL/ATARAX) 25 MG capsule/tablet PO PRN (16:40)
[2020-11-20] MEDS: QUEtiapine 100 MG (SEROquel) TAB IMMEDIATE RELEASE PO SCH (16:42)
[2020-11-20 20:00] VITALS: BP 168/83
[2020-11-20] MEDS: GABAPENTIN 300 MG (NEURONTIN) CAP PO SCH (20:33)
[2020-11-20] MEDS: RIVAROXABAN 2.5 MG TABLET (XARELTO) PO SCH (20:33)
[2020-11-20] MEDS: ROSUVASTATIN 10 MG (CRESTOR) TABLET PO SCH (20:33)
[2020-11-20] MEDS: DOCUSATE SODIUM 100 MG (COLACE) CAP PO SCH (20:33)
[2020-11-20] MEDS: SERTRALINE 50 MG (ZOLOFT) TABLET PO SCH (20:33)
[2020-11-20] MEDS: MEMANTINE 5 MG (NAMENDA) TABLET PO SCH (20:33)
[2020-11-20] MEDS: QUEtiapine 200 MG (SEROquel) TAB IMMEDIATE RELEASE PO SCH (20:33)
[2020-11-20] MEDS: DONEPEZIL 10 MG (ARICEPT) TAB PO SCH (20:33)
[2020-11-20] MEDS ORDERED: NON-FORMULARY MEDICATION 1 EA EA (Rivaroxaban (Xarelto) 2.5 MG) PO SCH (21:00)
[2020-11-20] MEDS ORDERED: MEMANTINE HCL PO SCH (21:00)
[2020-11-20] MEDS ORDERED: [UNRECOGNIZED DRUG - OTHER] PO SCH (21:00)
[2020-11-20] MEDS ORDERED: INSULIN DEGLUDEC 12 UNIT SC SCH (21:00)
[2020-11-20] MEDS ORDERED: DONEPEZIL HCL PO SCH (21:00)
[2020-11-21 00:15] VITALS: BP 132/69
[2020-11-21 04:00] VITALS: BP 125/77
[2020-11-21] MEDS: inSUlin ASPART (NovoLOG) 1 UNIT/0.01 ML (CHARGE PER UNIT) SC SCH ×4 (05:30→21:12)
[2020-11-21] MEDS: LEVOTHYROXINE 50 MCG (LEVOTHROID) TAB PO SCH (06:11)
[2020-11-21 07:50] VITALS: BP 114/68
[2020-11-21] MEDS: ASPIRIN E.C. 81 MG (ECOTRIN) TAB PO SCH (08:50)
[2020-11-21] MEDS: CEFDINIR 300 MG (OMNICEF) CAP PO SCH ×2 (08:50→21:11)
[2020-11-21] MEDS: QUEtiapine 100 MG (SEROquel) TAB IMMEDIATE RELEASE PO SCH ×2 (08:51→17:15)
[2020-11-21] MEDS: RIVAROXABAN 2.5 MG TABLET (XARELTO) PO SCH ×2 (08:51→21:11)
--- NOTE | 2020-11-21 09:37 | Progress Note ---
NINA ARREOLA,MED STUDENT 11/21/20 0937: Subjective Subjective/Events-last exam She reports she is doing better this morning. Slept well, has had a good appetite. She was able to speak with her daughter last night, and feels better knowing that she knows where she is (previously concerned that family didn't know her location). She reports some mild discomfort in bilateral feet. Her stomach has a "full" feeling, and she thinks she may have some constipation which can be a problem for her at home. Last bm a few days ago. Review of Systems General: No Chills, No Night Sweats HEENT: No Head Aches, No Visual Changes Pulmonary: No Dyspnea, No Cough Cardiovascular: No: Chest Pain, Edema Gastrointestinal: No: Nausea Genitourinary: No Dysuria Musculoskeletal: foot pain Neurological: No: Numbness, Change in speech Objective Exam Last Set of Vital Signs Vital Signs Date Time Temp Pulse Resp B/P (MAP) Pulse Ox O2 Delivery O2 Flow Rate FiO2 11/21/20 08:00 Room Air 11/21/20 07:50 36.4 66 18 114/68 (83) 95 Capillary Refill : Less Than 3 Seconds I&O Intake and Output 11/20/20 23:59 Intake Total 900 ml Output Total 450 ml Balance 450 ml Intake Oral 900 ml Output Urine Total 450 ml # Voids 5 # Bowel Movements 2 General: Alert, Other (oriented to person/place/month, but not to date/year) HEENT: Atraumatic Neck: Supple, No JVD Lungs: Clear to Auscultation Heart: Regular Rate, Normal S1, Normal S2 Abdomen: Normal Bowel Sounds Extremities: No Edema Neuro: Normal Speech, Normal Tone Psych/Mental Status: Mood NL Results/Procedures Lab Laboratory Tests 11/20/20 11:28: Glucometer 137H 11/20/20 16:37: Glucometer 117H 11/20/20 21:14: Glucometer 219H 11/21/20 05:21: Glucometer 176H Assessment/Plan Assessment/Plan Assessment & Plan Patient presented with reported decompensation from her baseline, which is complicated by dementia. No clear infectious or metabolic cause of any increased confusion or agitation at present. She presented with hyperglycemia, which has resolved. Creatinine elevated, however patient is near historical baseline. P otential causes are disease progression of dementia or acute delirium. She would benefit from a [facility] stay to help with medication optimization. (1) Dementia Status: Acute Assessment & Plan: Continue [employer]MENT Seroquel, Memantine, Donepezil Qualifiers: Qualified Codes: G31.83 - Dementia with Lewy bodies; F02.81 - Dementia in other diseases classified elsewhere with behavioral disturbance (2) Delirium Status: Acute Assessment & Plan: Ativan and Geodon prn for acute agitation (3) Hyperglycemia due to diabetes mellitus Status: Acute Assessment & Plan: on Aspart correction factor, with 12u [facility] SHERINE MEDLEY MD 11/21/20 1542: Supervisory-Addendum Brief Verification & Attestation Participated in pt care: history, MDM Personally performed: history, MDM, supervision of care Care discussed with: Medical Student Procedures: n/a I personally saw patient and did my own history- at the time of my interview she was again confused and stated she was wanting to call the police and just needed to go home and that she was fine. She declined to allow physical exam. Possibly will have bed available at [facility] tomorrow. NINA ARREOLA,MED STUDENT Nov 21, 2020 09:37 SHERINE MEDLEY MD Nov 21, 2020 15:42
[2020-11-21] MEDS ORDERED: WATER (STERILE) FOR INJECTION 10 ML ONE (10:51)
[2020-11-21 11:40] VITALS: BP 117/74
[2020-11-21 15:16] VITALS: BP 136/64
--- NOTE | 2020-11-21 18:07 | Wound Care Assessment ---
Wound Care Assessment Date Seen by Provider: Nov 21, 2020 Time Seen by Provider: 08:00 Chief Complaint R lateral ankle ulcer. HPI The patient is a 80 year old female with diabetes and severe PVD and recurrent R lateral ankle ulcer. This has been well treated with Vashe dressings BID. The wound is decreasing in size and there is no surrounding erythema. Her wound should be stable for an extended stay in a facility, if needed. Past Medical History: Admits Diabetes Type II History of Dementia Smoking Status: Never a Smoker Recreational Drug Use: No Alcohol Use: Denies Use Review of Systems Pulmonary: No Dyspnea Cardiovascular: No: Chest Pain Exam Vital Signs Date Time Temp Pulse Resp B/P (MAP) Pulse Ox O2 Delivery O2 Flow Rate FiO2 11/21/20 15:16 36.8 80 20 136/64 (88) 92 Room Air Capillary Refill : Less Than 3 Seconds Extremities: other (R lateral ankle ulcer -- 1.1 x 1.0 x 0.2 cm, base with mild slough present. Min. s.s. drainage.) Results Laboratory Tests 11/20/20 21:14: Glucometer 219H 11/21/20 05:21: Glucometer 176H 11/21/20 11:40: Glucometer 164H 11/21/20 15:40: Glucometer 303H Assessment/Plan/Dx 1. Diabetic, ischemic R ankle ulcer, stable with present management. Plan: Would recommend continuing Vashe dressings BID and would be glad to resume care for the patient as an out-patient when possible. JERROD GOODEN MD Nov 21, 2020 18:07
[2020-11-21 19:04] VITALS: BP 135/66
[2020-11-21] MEDS: ROSUVASTATIN 10 MG (CRESTOR) TABLET PO SCH (21:11)
[2020-11-21] MEDS: hydrOXYzine (VISTARIL/ATARAX) 25 MG capsule/tablet PO PRN (21:11)
[2020-11-21] MEDS: GABAPENTIN 300 MG (NEURONTIN) CAP PO SCH (21:11)
[2020-11-21] MEDS: MEMANTINE 5 MG (NAMENDA) TABLET PO SCH (21:11)
[2020-11-21] MEDS: QUEtiapine 200 MG (SEROquel) TAB IMMEDIATE RELEASE PO SCH (21:11)
[2020-11-21] MEDS: DOCUSATE SODIUM 100 MG (COLACE) CAP PO SCH (21:11)
[2020-11-21] MEDS: SERTRALINE 50 MG (ZOLOFT) TABLET PO SCH (21:11)
[2020-11-21] MEDS: DONEPEZIL 10 MG (ARICEPT) TAB PO SCH (21:11)
[2020-11-22 03:39] VITALS: BP 109/55
[2020-11-22] MEDS: inSUlin ASPART (NovoLOG) 1 UNIT/0.01 ML (CHARGE PER UNIT) SC SCH ×4 (05:31→20:19)
[2020-11-22] MEDS: LEVOTHYROXINE 50 MCG (LEVOTHROID) TAB PO SCH (06:24)
[2020-11-22 08:00] VITALS: BP 173/74
[2020-11-22] MEDS: QUEtiapine 100 MG (SEROquel) TAB IMMEDIATE RELEASE PO SCH ×2 (08:47→16:29)
[2020-11-22] MEDS: RIVAROXABAN 2.5 MG TABLET (XARELTO) PO SCH ×2 (08:47→20:18)
[2020-11-22] MEDS: ASPIRIN E.C. 81 MG (ECOTRIN) TAB PO SCH (08:47)
[2020-11-22] MEDS: CEFDINIR 300 MG (OMNICEF) CAP PO SCH ×2 (08:47→20:18)
--- NOTE | 2020-11-22 11:11 | Progress Note ---
NINA ARREOLA,MED STUDENT 11/22/20 1111: Subjective Subjective/Events-last exam She reports she is worried this morning about her because of his stroke and being in the hospital. Doesn't report any concerns about herself today, but is still anxious to get out of the hospital. Review of Systems General: No Chills, No Night Sweats HEENT: No Head Aches, No Visual Changes Pulmonary: No Dyspnea, No Cough Cardiovascular: No: Chest Pain Gastrointestinal: No: Nausea, Vomiting Genitourinary: No Dysuria Musculoskeletal: No: neck pain, back pain Neurological: No: Weakness, Numbness Objective Exam Last Set of Vital Signs Vital Signs Date Time Temp Pulse Resp B/P (MAP) Pulse Ox O2 Delivery O2 Flow Rate FiO2 11/22/20 08:00 36.4 66 16 173/74 (107) 97 Room Air Capillary Refill : Less Than 3 Seconds I&O Intake and Output 11/22/20 00:00 Intake Total 750 ml Balance 750 ml Intake Oral 740 ml IV Total 10 ml # Voids 5 # Bowel Movements 1 General: Alert, Oriented X3 HEENT: Atraumatic Lungs: Clear to Auscultation Heart: Regular Rate, Normal S1, Normal S2 Abdomen: Normal Bowel Sounds Extremities: No Edema Skin: Other (covered R foot/ankle wound) Neuro: Normal Speech, Normal Tone Results/Procedures Lab Laboratory Tests 11/21/20 11:40: Glucometer 164H 11/21/20 15:40: Glucometer 303H 11/21/20 20:09: Glucometer 214H 11/21/20 20:19: Glucometer 262H 11/22/20 05:18: Glucometer 75 11/22/20 10:53: Glucometer 133H Assessment/Plan Assessment/Plan Assessment & Plan Patient presented with reported decompensation from her baseline, which is complicated by dementia. No clear infectious or metabolic cause of any increased confusion or agitation at present. She presented with hyperglycemia, which has resolved. Creatinine elevated, however patient is near historical baseline. Potential causes are disease progression of dementia or acute delirium. She would benefit from a [facility] stay to help with medication optimization. 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, Memantine, Donepezil Qualifiers: Qualified Codes: G31.83 - Dementia with Lewy bodies; F02.81 - Dementia in other diseases classified elsewhere with behavioral disturbance (2) Delirium Status: Acute Assessment & Plan: Ativan and Geodon prn for acute agitation (3) Hyperglycemia due to diabetes mellitus Status: Acute Assessment & Plan: on Aspart correction factor, with 12u Detemir Qhs SHERINE MEDLEY MD 11/22/20 1510: Supervisory-Addendum Brief Verification & Attestation Participated in pt care: history, MDM, physical Personally performed: exam, history, MDM Care discussed with: Medical Student Procedures: n/a I personally did my own history today, but I did not do a physical exam beyond observation in order to avoid agitating patient as she requested not to be evaluated again. Plan to transfer to [facility] tomorrow. NINA ARREOLA,MED STUDENT Nov 22, 2020 11:11 SHERINE MEDLEY MD Nov 22, 2020 15:10
[2020-11-22 11:32] VITALS: BP 160/74
[2020-11-22 15:10] VITALS: BP 165/74
[2020-11-22 19:08] VITALS: BP 143/70
[2020-11-22] MEDS: MEMANTINE 5 MG (NAMENDA) TABLET PO SCH (20:18)
[2020-11-22] MEDS: ROSUVASTATIN 10 MG (CRESTOR) TABLET PO SCH (20:18)
[2020-11-22] MEDS: DONEPEZIL 10 MG (ARICEPT) TAB PO SCH (20:18)
[2020-11-22] MEDS: QUEtiapine 200 MG (SEROquel) TAB IMMEDIATE RELEASE PO SCH (20:19)
[2020-11-22] MEDS: DOCUSATE SODIUM 100 MG (COLACE) CAP PO SCH (20:19)
[2020-11-22] MEDS: GABAPENTIN 300 MG (NEURONTIN) CAP PO SCH (20:19)
[2020-11-22] MEDS: SERTRALINE 50 MG (ZOLOFT) TABLET PO SCH (20:19)
[2020-11-23 00:23] VITALS: BP 94/59
[2020-11-23 03:43] VITALS: BP 91/50
[2020-11-23] MEDS: LEVOTHYROXINE 50 MCG (LEVOTHROID) TAB PO SCH (06:06)
[2020-11-23] MEDS: inSUlin ASPART (NovoLOG) 1 UNIT/0.01 ML (CHARGE PER UNIT) SC SCH (06:14)
[2020-11-23 08:00] VITALS: BP 134/64
[2020-11-23] MEDS: QUEtiapine 100 MG (SEROquel) TAB IMMEDIATE RELEASE PO SCH (08:16)
[2020-11-23] MEDS: RIVAROXABAN 2.5 MG TABLET (XARELTO) PO SCH (08:17)
[2020-11-23] MEDS: CEFDINIR 300 MG (OMNICEF) CAP PO SCH (08:17)
[2020-11-23] MEDS: ASPIRIN E.C. 81 MG (ECOTRIN) TAB PO SCH (08:17)
--- NOTE | 2020-11-23 08:26 | Discharge Summary ---
Discharge [facility] Discharge Medications Continued Medications: Aspirin (Aspirin EC) 81 Mg Tablet.dr 81 MG PO DAILY, TAB Carvedilol (Carvedilol) 3.125 Mg Tablet 3.125 MG PO BID, TAB Cefdinir (Cefdinir) 300 Mg Capsule 300 MG PO BID, CAP FILLED 11-12-2020 #28/14 DAY SUPPLY Dapagliflozin Propanediol (Farxiga) 10 Mg Tablet 10 MG PO DAILY, TAB Docusate Sodium (Colace) 100 Mg Capsule 200 MG PO HS, CAP Fenofibrate Nanocrystallized (Fenofibrate) 48 Mg Tablet 48 MG PO HS, TAB Gabapentin (Neurontin) 300 Mg Capsule 300 MG PO HS, CAP Hydroxyzine HCl (Hydroxyzine HCl) 25 Mg Tablet 25 MG PO Q4H PRN for ANXIETY, TAB Insulin Degludec (Tresiba Flextouch U-200) 200 Unit/1 Ml Insuln.pen 12 UNITS SC HS, EA Levothyroxine Sodium (Levothyroxine Sodium) 50 Mcg Tablet 50 MCG PO DAILY, TAB Memantine HCl/Donepezil HCl (Namzaric 7 mg-10 mg Capsule) 1 Each Cap.spr.24 1 EACH PO HS, CAP Polyethylene Glycol 3350 (Miralax) 17 Gm Powd.pack 17 GM PO DAILY PRN for CONSTIPATION-2ND LINE, EACH Quetiapine Fumarate (Quetiapine Fumarate) 200 Mg Tablet 200 MG PO HS, TAB Quetiapine Fumarate (Quetiapine Fumarate) 100 Mg Tablet 150 MG PO DAILY, TAB TAKES 1 & (100MG) TABS Quetiapine Fumarate (Quetiapine Fumarate) 100 Mg Tablet 50 MG PO 1700, TAB TAKES OF A 100MG TAB Rivaroxaban (Xarelto) 2.5 Mg Tablet 2.5 MG PO BID, TAB Rosuvastatin Calcium (Rosuvastatin Calcium) 10 Mg Tablet 10 MG PO HS, TAB Sertraline HCl (Sertraline HCl) 50 Mg Tablet 50 MG PO HS, TAB Tramadol HCl (Tramadol HCl) 50 Mg Tablet 50 MG PO BID PRN for PAIN-MODERATE (5-7), TAB Patient Instructions Goal/Follow Up Appt: Follow up [facility]. [facility] For: Chest pain, shortness of breath Activity & Diet Discharge Diet: ADA Diet Activity as Tolerated: Yes SHERINE MEDLEY MD Nov 23, 2020 08:26
--- NOTE | 2020-11-23 13:25 | Discharge Summary ---
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 (3) Hyperglycemia due to diabetes mellitus Status: Acute Assessment & Plan: on Aspart correction factor, with 12u Detemir Qhs Hospital Course Date of Admission: Nov 19, 2020 at 21:00 Admission Diagnosis : Family Physician/Provider: Anna Michel Date of Discharge: 11/23/20 Discharge Diagnosis: See problem list Hospital Course: See problem list Labs and Pending Lab Test: Laboratory Tests 11/22/20 15:16: Glucometer 212H 11/22/20 15:42: Coronavirus 2019 (SELVIN) Not Detected 11/22/20 19:59: Glucometer 203H 11/23/20 06:13: Glucometer 158H Home Meds Active Reported Miralax (Polyethylene Glycol 3350) 17 Gm Powd.pack 17 Gm PO DAILY PRN Levothyroxine Sodium 50 Mcg Tablet 50 Mcg PO DAILY Carvedilol 3.125 Mg Tablet 3.125 Mg PO BID Tramadol HCl 50 Mg Tablet 50 Mg PO BID PRN Neurontin (Gabapentin) 300 Mg Capsule 300 Mg PO HS Namzaric 7 mg-10 mg Capsule (Memantine HCl/Donepezil HCl) 1 Each Cap.spr.24 1 Each PO HS Farxiga (Dapagliflozin Propanediol) 10 Mg Tablet 10 Mg PO DAILY Sertraline HCl 50 Mg Tablet 50 Mg PO HS Hydroxyzine HCl 25 Mg Tablet 25 Mg PO Q4H PRN Xarelto (Rivaroxaban) 2.5 Mg Tablet 2.5 Mg PO BID Quetiapine Fumarate 100 Mg Tablet 50 Mg PO 1700 TAKES OF A 100MG TAB Quetiapine Fumarate 100 Mg Tablet 150 Mg PO DAILY TAKES 1 & (100MG) TABS Cefdinir 300 Mg Capsule 300 Mg PO BID FILLED 11-12-2020 #28/14 DAY SUPPLY Quetiapine Fumarate 200 Mg Tablet 200 Mg PO HS Colace (Docusate Sodium) 100 Mg Capsule 200 Mg PO HS Rosuvastatin Calcium 10 Mg Tablet 10 Mg PO HS Tresiba Flextouch U-200 (Insulin Degludec) 200 Unit/1 Ml Insuln.pen 12 Units SC HS Fenofibrate (Fenofibrate Nanocrystallized) 48 Mg Tablet 48 Mg PO HS Aspirin EC (Aspirin) 81 Mg Tablet.dr 81 Mg PO DAILY Assessment/Pt DC Instructions Follow up at [facility] after d/c from [facility]. Discharge Diet: ADA Diet Activity as Tolerated: Yes Discharge Physical Examination Allergies: Coded Allergies: sulfamethoxazole (Unverified Allergy, Severe, ANAPHYLAXIS, 07/05/10) pt states severe resp distress after taking bactrim ds trimethoprim (Unverified Allergy, Severe, ANAPHYLAXIS, 07/05/10) pt states severe resp distress after taking bactrim ds ciprofloxacin (Verified Allergy, Intermediate, BLOOD SUGAR BOTTOM OUT, 06/24/17) Sulfa (Sulfonamide Antibiotics) (Unverified Allergy, Mild, 07/05/10) Penicillins (Verified Allergy, Unknown, 12/14/05) protamine (Verified Allergy, Unknown, 02/07/08) Quinolones (Verified Adverse Reaction, Severe, HYPOGLYCEMIA, 05/28/17) General Appearance: No Apparent Distress, WD/WN Respiratory: Lungs Clear, Normal Breath Sounds Cardiovascular: Regular Rate, Rhythm, No Murmur Skin: Normal Color, Warm/Dry Neurologic/Psychiatric: Alert, Normal Mood/Affect SHERINE MEDLEY MD Nov 23, 2020 13:25
== END 2020-11-23 08:50 ==
LOC: EDUNIT# 20:19 → ER 20:20 → UNDOADMOB 21:00 → 4TH 21:00 → UNDODISOB 11-23 08:50
PROVIDERS: ADMIT Family Medicine; ATTEND Family Medicine
DX: G31.83 Neurocognitive disorder with Lewy bodies (principal); F02.81 Dementia in other diseases classified elsewhere, unspecified severity, with behavioral disturbance; R41.0 Disorientation, unspecified; E11.65 Type 2 diabetes mellitus with hyperglycemia; R53.1 Weakness; K21.9 Gastro-esophageal reflux disease without esophagitis; M19.90 Unspecified osteoarthritis, unspecified site; E11.40 Type 2 diabetes mellitus with diabetic neuropathy, unspecified; Z79.890 Hormone replacement therapy; Z79.82 Long term (current) use of aspirin; Z79.899 Other long term (current) drug therapy; Z88.2 Allergy status to sulfonamides; Z88.0 Allergy status to penicillin; Z88.1 Allergy status to other antibiotic agents; Z88.8 Allergy status to other drugs, medicaments and biological substances; Z79.4 Long term (current) use of insulin; Z90.710 Acquired absence of both cervix and uterus; Z20.822 Contact with and (suspected) exposure to COVID-19
CPT/HCPCS: 80048; 80053; 81000; 82947 ×4; 85025; 86141; 99284; G0378; U0002; 36415; 87635

== ENCOUNTER → 2020-12-07 | Outpatient (CLI) | payer MEDICARE, MEDICAID ==
[~2020-12-07] MED LIST changes: +CARV3.122 PO; +DAPA10TA PO; +GABA300C PO; +LEVO50TA6 PO; +MEMA1CAP4 PO; +POLY17PO6 PO; +QUET100T33 PO; +QUET200T29 PO; +RIVA2.5T5 PO; +SERT-413 PO; +TRAM50TA3 PO
[2020-12-07 19:11] LABS: BILIRUBIN,URINE NEGATIVE (NEGATIVE); CLARITY,URINE CLOUDY; COLOR,URINE YELLOW; GLUCOSE, URINE (UA) 3+ (NEGATIVE); KETONES,URINE NEGATIVE (NEGATIVE); LEUKOCYTE ESTERASE ,URINE TRACE (NEGATIVE); NITRITE,URINE NEGATIVE (NEGATIVE); PROTEIN,URINE NEGATIVE (NEGATIVE)
[2020-12-07 19:18] LABS: BACTERIA,URINE LARGE /HPF; RBC,URINE RARE /HPF; SQUAMOUS EPITHELIAL CELL,UR RARE /HPF
== END ==
LOC: LABNPT 19:04
PROVIDERS: ATTEND Internal Medicine
DX: Z01.89 Encounter for other specified special examinations (principal)
CPT/HCPCS: 81000; 87077; 87088; 87186

== ENCOUNTER → 2020-12-23 | Outpatient (CLI) | payer MEDICARE, MEDICAID ==
[2020-12-23 22:44] LABS: BILIRUBIN,URINE NEGATIVE (NEGATIVE); CLARITY,URINE CLOUDY; COLOR,URINE YELLOW; GLUCOSE, URINE (UA) 3+ (NEGATIVE); KETONES,URINE TRACE (NEGATIVE); LEUKOCYTE ESTERASE ,URINE 1+ (NEGATIVE); NITRITE,URINE POSITIVE (NEGATIVE); PROTEIN,URINE NEGATIVE (NEGATIVE)
[2020-12-23 22:53] LABS: BACTERIA,URINE MODERATE /HPF; WBC,URINE >100 /HPF; YEAST,URINE MODERATE /HPF
== END ==
LOC: LABNPT 22:40
PROVIDERS: ATTEND Internal Medicine
DX: Z01.89 Encounter for other specified special examinations (principal)
CPT/HCPCS: 81000; 87077; 87088; 87184; 87186